=== PATIENT | female | born 1940 | race Caucasian/White ===

== ENCOUNTER 2017-04-21 13:59 | Observation (INO) | payer OTHER ==
[~2017-04-21] VITALS: Ht 160 cm; Wt 85.0 kg
[~2017-04-21 13:59] MED LIST: BIOT1TAB5 PO; FSM70 PO; GLIM4TAB PO; GLUCTAB18 PO; LISI40TA PO; MELA1TAB12 PO; METF1000 PO; MULT-513 PO; NVLGI7030 SQ; POTA1TAB PO; PRLSR20 PO; SIMV10TA2 PO
[2017-04-21] MEDS ORDERED: MoRPHine SULFATE 4 MG/ML 1 ML CARP\\VIAL IV STA (14:32)
[2017-04-21] MEDS ORDERED: ONDANSETRON INJ 2 MG/ML 2 ML VIAL IV STA (14:32)
--- NOTE | 2017-04-21 14:39 | EMERGENCY ROOM VISIT NOTE ---
History First contact with patient: 14:07 Chief Complaint: HIP PAIN Stated Complaint: HIP (FELL AND LANDED ON IT) History of Present Illness The patient is a 76 year old female who comes into the ED with right hip pain following a recent fall. She reports a PMH significant for osteoporosis on biphosphates. She says that she fell when getting out of bed. The patient is unsure of how exactly she fell, but thinks that she lost her balance. She denies feeling dizziness or experiencing a syncopal episode. She landed on her right hip and right arm. In addition, she reports hitting her head as she fell to the floor. The patient denies loss of consciousness, although there was no one home to witness the fall. She was able to stand, but she reports excruciating 10/10 sharp pain in her right hip and femur with weight bearing. Patient denies taking any ASA or blood thinners. She does report a PMH of HTN, T2DM. Review of Systems see below Constitutional: No fever, No chills, No sweats Respiratory: No cough, No sputum, No shortness of breath Cardiovascular: No chest pain Abdomen: No pain, No nausea, No vomiting Musculoskeletal: + joint pain, + muscle pain Past Medical/Surgical History Medical Problems: (1) Acute back pain with sciatica (2) Carpal Tunnel Syndrome (3) Coronary Atherosclerosis Of [place] Coronary Vessel (4) DM type 2 (diabetes mellitus, type 2) (5) Essential (Primary) Hypertension (6) GERD (gastroesophageal reflux disease) (7) Hip pain (8) Hyperlipidemia Nec/Nos (9) Hyperparathyroidism (10) Laceration of right palm (11) Lumbago (12) Nontoxic multinodular goiter (13) Osteoporosis (14) Sciatica (15) Tobacco Use Disorder (16) Type 2 Diabetes Mellitus Without Complications (17) Unspecified Cataract (18) Vitamin D deficiency Surgical Problems: (1) History of placement of stent in LAD coronary artery (2) Hx of cataract removal with insertion of prosthetic lens (3) Hx of cholecystectomy (4) Hx of hysterectomy (5) Hx of tonsillectomy Family History FH: cancer FH: diabetes mellitus FH: gallbladder disease FH: heart disease FH: lung disease Social History Smoking Status: Former Smoker Alcohol Use: occasionally Marital Status: Occupation Status: retired Current/Historical Medications Scheduled Alendronate Sodium (Alendronate Sodium), 70 MG PO WK Cinacalcet (Sensipar), 1 TAB PO DAILY Glimepiride (Amaryl), 8 MG PO QAM Glucosamine-Chondroitin (Osteo Bi-Flex Regular Str), 1 TABLET PO QAM Insulin Aspart 70/30 (Novolog Mix 70/30), 70 UNITS SQ BIDM Metformin Hcl (Glucophage), 1,000 MG PO BID Multivitamins/Minerals (Mvi With Minerals), 1 TAB PO QAM Omeprazole (Prilosec), 20 MG PO QAM Potassium Gluconate (Potassium Gluconate Er), 595 MG PO QAM Simvastatin (Zocor), 10 MG PO QPM Physical Exam Vital Signs Date Time Temp Pulse Resp B/P (MAP) Pulse Ox O2 Delivery O2 Flow Rate FiO2 04/21/17 17:03 98 18 142/65 94 Room Air 04/21/17 14:01 36.3 103 18 160/70 95 Room Air Physical Exam see below General Appearance: WD/WN, no apparent distress Head: normocephalic, atraumatic Respiratory/Chest: chest non-tender, lungs clear, normal breath sounds Cardiovascular: regular rate, rhythm, no edema, no gallop Extremities: normal inspection, + pertinent finding (Normal neurovascular exam of bilateral extremities. Symmetric length of lower extremity. No external rotation of right hip or overlying eccymosis. Tender right hip over greater trochanter. Patient unable to flex hip. 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 Pain. COMPARISON: None. DISCUSSION: The bones and joint spaces appear intact. There is no evidence of fracture, dislocation or bony disease. There is no evidence for soft tissue swelling. IMPRESSION: Negative study. R FEMUR 2 VIEWS ROUTINE CLINICAL HISTORY: Fall on right hip. COMPARISON: Pelvis and right hip radiographs April 21, 2017 at 3:40 PM FINDINGS: Alignment of the right hip and right knee is anatomic. There is no acute fracture of the right femur. A calcific density inferior to the right inferior pubic ramus is likely chronic. IMPRESSION: No acute fracture of the right femur. R LOWER EXTREMITY WITHOUT HISTORY: 76 years-old Female right hip eval for fx acute right hip pain with concern for right hip fracture COMPARISON: Right femur and pelvis radiographs of same day TECHNIQUE: Multiple axial CT images of the right hip were obtained without contrast. Coronal and sagittal reformatted images were obtained from the axial data set and submitted for review. A dose lowering technique was used consistent with the principals of MIRTHA. FINDINGS: The bones appear mildly demineralized. There is mild to moderate right hip osteoarthritis with chondrocalcinosis. There is no acute fracture or dislocation. Degenerative changes are seen within the pubic symphysis. The imaged right hemipelvis appears intact without pelvic ring fracture identified. Cystic lesion of the right adnexum measures up to 5.1 x 4.3 cm. There appears to be distention of the bladder. Atherosclerosis of the femoral artery. No acute soft tissue abnormality identified. There appears to be a small hip joint effusion. IMPRESSION: 1. No acute fracture or dislocation. 2. 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 3. Cystic lesion of the right adnexum measures up to 5.1 x 4.3 cm. This could be further evaluated with pelvic ultrasound. The above report was generated using voice recognition software. It may contain grammatical, syntax or spelling errors. Laboratory Results 04/21/17 14:52 Red Blood Count 4.68, Mean Corpuscular Volume 94.7, Mean Corpuscular Hemoglobin 31.2, Mean Corpuscular Hemoglobin Concent 33.0, Mean Platelet Volume 11.1, Neutrophils (%) (Auto) 70.5, Lymphocytes (%) (Auto) 20.1, Monocytes (%) (Auto) 7.7, Eosinophils (%) (Auto) 0.9, Basophils (%) (Auto) 0.5, Neutrophils # (Auto) 7.43, Lymphocytes # (Auto) 2.12, Monocytes # (Auto) 0.81, Eosinophils # (Auto) 0.10, Basophils # (Auto) 0.05 04/21/17 14:52 Test 04/21/17 14:52 White Blood Count 10.54 K/uL (4.8-10.8) Red Blood Count 4.68 M/uL (4.2-5.4) Hemoglobin 14.6 g/dL (12.0-16.0) Hematocrit 44.3 % (37-47) Mean Corpuscular Volume 94.7 fL (80-100) Mean Corpuscular Hemoglobin 31.2 pg (25-34) Mean Corpuscular Hemoglobin Concent 33.0 g/dl (32-36) Platelet Count 196 K/uL (130-400) Mean Platelet Volume 11.1 fL (7.4-10.4) Neutrophils (%) (Auto) 70.5 % Lymphocytes (%) (Auto) 20.1 % Monocytes (%) (Auto) 7.7 % Eosinophils (%) (Auto) 0.9 % Basophils (%) (Auto) 0.5 % Neutrophils # (Auto) 7.43 K/uL (1.4-6.5) Lymphocytes # (Auto) 2.12 K/uL (1.2-3.4) Monocytes # (Auto) 0.81 K/uL (0.11-0.59) Eosinophils # (Auto) 0.10 K/uL (0-0.5) Basophils # (Auto) 0.05 K/uL (0-0.2) RDW Standard Deviation 53.0 fL (36.4-46.3) RDW Coefficient of Variation 15.3 % (11.5-14.5) Immature Granulocyte % (Auto) 0.3 % Immature Granulocyte # (Auto) 0.03 K/uL (0.00-0.02) Prothrombin Time 11.6 SECONDS (9.0-12.0) Prothromb Time International Ratio 1.1 (0.9-1.1) Activated Partial Thromboplast Time 26.8 SECONDS (21.0-31.0) Partial Thromboplastin Ratio 1.0 Anion Gap 14.0 mmol/L (3-11) Est Creatinine Clear Calc Drug Dose 53.7 ml/min Estimated GFR () 70.1 Estimated GFR (Non- 60.5 BUN/Creatinine Ratio 13.7 (10-20) Calcium Level 9.4 mg/dl (8.5-10.1) Medications Administered Medications (Trade) Dose Ordered Sig/Cass Route Start Time Stop Time Status Last Admin Dose Admin Morphine Sulfate (MoRPHine SULFATE INJ) 4 mg NOW STAT IV 04/21/17 14:32 04/21/17 14:34 DC 04/21/17 15:00 4 MG Ondansetron HCl (Zofran Inj) 4 mg NOW STAT IV 04/21/17 14:32 04/21/17 14:35 DC 04/21/17 14:59 4 MG ED Course 1430 History and Physical performed 1445 Ordered labs and test 1515 Reaccessed patient, awaiting radiology 1600 Patient's femur, pelvis, hip, CXR all normal [address] of right hip Medical Decision 76 yo female comes into the ED after a fall on her right hip. Patient has 10/10 pain with weightbearing. Patient was given morphine 4mg IV for pain. Considering the following differential; right femoral head/neck fracture, greater trochanteric fracture, right femoral fracture, right trochanteric bursitis, right hip hematoma Xray of right hip, right femur were ordered to access for hip fracture. In addition, head CT was ordered to access for subdural hematoma. After hip and femur x-ray were found unremarkable for right hip fracture, CT of the left hip was ordered. This too was found to be negative for fracture. Following reviewing negative imaging, I reaccessed the patient and attempted to ambulate her. Patient was unable to bear weight on the right side and was unable to ambulate. She reported that she couldn't move her leg from the right hip. There was no ecchymosis over the right hip. Patient reports severe tenderness with palpation of the right greater trochanter. Discussed the case with the [facility] hospitalist. Patient is to be admitted for further evaluation. Impression Primary Impression: Right hip pain Departure Information Dispostion Admitted as an inpatient Condition FAIR Referrals Alexy Al M.D. (PCP) Patient Instructions [facility]
[2017-04-21 15:06] LABS: BASO % 0.5 %; BASO ABS # 0.05 K/uL (0-0.2); COMPLETE YES; EOS % 0.9 %; HEMATOCRIT 44.3 % (37-47); IG% 0.3 %; LYMPH % 20.1 %; LYMPH ABS # 2.12 K/uL (1.2-3.4); MEAN CELL VOLUME 94.7 fL (80-100); MEAN CORPUSCULAR HEMOGLOBIN 31.2 pg (25-34); MEAN PLATELET VOLUME 11.1 fL (7.4-10.4); MONO % 7.7 %; NEUT % 70.5 %; PLATELET COUNT 196 K/uL (130-400); RED BLOOD COUNT 4.68 M/uL (4.2-5.4); WHITE BLOOD COUNT 10.54 K/uL (4.8-10.8)
[2017-04-21 15:22] LABS: INR 1.1 (0.9-1.1); PROTHROMBIN TIME (PATIENT) 11.6 SECONDS (9.0-12.0)
[2017-04-21 15:23] LABS: BUN/CREATININE RATIO 13.7 (10-20); CALCIUM 9.4 mg/dl (8.5-10.1); CREATININE 0.92 mg/dl (0.60-1.20)
--- NOTE | 2017-04-21 15:49 | DIAGNOSTIC IMAGING REPORT ---
R PELVIS/UNILATERAL HIP 2-3VIEWS CLINICAL HISTORY: eval for fx trauma. Pain. COMPARISON: None. DISCUSSION: The bones and joint spaces appear intact. There is no evidence of fracture, dislocation or bony disease. There is no evidence for soft tissue swelling. IMPRESSION: Negative study. The above report was generated using voice recognition software. It may contain grammatical, syntax or spelling errors. Electronically signed by: Yasmany Jorge M.D. 04/21/2017 3:48 PM Dictated Date/Time: 04/21/2017 3:47 PM
--- NOTE | 2017-04-21 15:56 | DIAGNOSTIC IMAGING REPORT ---
CHEST ONE VIEW PORTABLE HISTORY: 76 years-old Female hip fx preoperative exam. COMPARISON: None available TECHNIQUE: Portable AP view of the chest FINDINGS: Cardiomediastinal and hilar silhouettes are within normal limits. Atherosclerosis of the aorta. No pneumothorax, pleural effusion, focal airspace consolidation or overt pulmonary edema. Minimal linear subsegmental lateral left basilar opacities suggest atelectasis or scarring. Bones appear grossly intact. There are degenerative changes of the shoulders. IMPRESSION: No acute cardiopulmonary process. The above report was generated using voice recognition software. It may contain grammatical, syntax or spelling errors. Electronically signed by: Chong Smart M.D. 04/21/2017 3:55 PM Dictated Date/Time: 04/21/2017 3:54 PM
--- NOTE | 2017-04-21 15:57 | DIAGNOSTIC IMAGING REPORT ---
R FEMUR 2 VIEWS ROUTINE CLINICAL HISTORY: Fall on right hip. COMPARISON: Pelvis and right hip radiographs April 21, 2017 at 3:40 PM FINDINGS: Alignment of the right hip and right knee is anatomic. There is no acute fracture of the right femur. A calcific density inferior to the right inferior pubic ramus is likely chronic. IMPRESSION: No acute fracture of the right femur. Electronically signed by: Karson Goddard M.D. 04/21/2017 3:55 PM Dictated Date/Time: 04/21/2017 3:54 PM
--- NOTE | 2017-04-21 16:34 | DIAGNOSTIC IMAGING REPORT ---
CT OF THE HEAD WITHOUT CONTRAST CLINICAL HISTORY: Fall with head injury. COMPARISON STUDY: No previous studies for comparison. CT DOSE: 712.55 mGy.cm TECHNIQUE: Helical axial images of the head were obtained without IV contrast. Automated exposure control was utilized for the study. A dose lowering technique was utilized adhering to the principles of ALARA. FINDINGS: No acute intracranial hemorrhage, midline shift or mass effect is present. Ventricular system is normal. Basilar cisterns are patent. Prominence of the extra-axial CSF spaces is likely due to atrophy. A moderate size focus of encephalomalacia within left occipital lobe suggests old infarct. There are no findings to suggest acute dural sinus thrombosis or acute territorial infarct. No calvarial fracture is identified. Visualized portions of the sinuses and mastoid air cells are clear. IMPRESSION: 1. No acute intracranial findings. 2. No calvarial fracture. 3. Old left occipital lobe infarct. Electronically signed by: Karson Goddard M.D. 04/21/2017 4:32 PM Dictated Date/Time: 04/21/2017 4:28 PM
--- NOTE | 2017-04-21 16:35 | DIAGNOSTIC IMAGING REPORT ---
R LOWER EXTREMITY WITHOUT HISTORY: 76 years-old Female right hip eval for fx acute right hip pain with concern for right hip fracture COMPARISON: Right femur and pelvis radiographs of same day TECHNIQUE: Multiple axial CT images of the right hip were obtained without contrast. Coronal and sagittal reformatted images were obtained from the axial data set and submitted for review. A dose lowering technique was used consistent with the principals of ALARA. FINDINGS: The bones appear mildly demineralized. There is mild to moderate right hip osteoarthritis with chondrocalcinosis. There is no acute fracture or dislocation. Degenerative changes are seen within the pubic symphysis. The imaged right hemipelvis appears intact without pelvic ring fracture identified. Cystic lesion of the right adnexum measures up to 5.1 x 4.3 cm. There appears to be distention of the bladder. Atherosclerosis of the femoral artery. No acute soft tissue abnormality identified. There appears to be a small hip joint effusion. IMPRESSION: 1. No acute fracture or dislocation. 2. 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 3. Cystic lesion of the right adnexum measures up to 5.1 x 4.3 cm. This could be further evaluated with pelvic ultrasound. The above report was generated using voice recognition software. It may contain grammatical, syntax or spelling errors. Electronically signed by: Chong Smart M.D. 04/21/2017 4:33 PM Dictated Date/Time: 04/21/2017 4:29 PM
--- NOTE | 2017-04-21 17:41 | EMERGENCY ROOM VISIT NOTE ---
History Report prepared by Luis: Sony Carter Under the Supervision of: Dr. Arun Bojorquez M.D. First contact with patient: 14:06 Chief Complaint: HIP PAIN Stated Complaint: HIP (FELL AND LANDED ON IT) History of Present Illness The patient is a 76 year old female who presents to the Emergency Room with complaints of right sided hip pain that began this morning. She rates her pain a 10/10 in severity. This morning, the patient was getting out of bed when she accidentally lost her balance and fell onto her right hip. She states that she is unsure if she was dizzy at the time because she was just waking up from sleep. She immediately tried to get up and walk around. However, her pain was exacerbated with movement and weight-bearing so she had a difficult time walking. She notes that when she fell she hit the back of her head. She did not lose consciousness. She denies any headache, neck pain, chest pain, shortness of breath, abdominal pain, back pain, leg pain, arm pain, numbness, or weakness. Source of History: patient Onset: this morning Position: other (Right hip) Symptom Intensity: 10/10 Quality: sharp Timing: constant Modifying Factors (Worsening): movement, other (weight-bearing) Associated Symptoms: No LOC, No fevers, No chest pain, No SOB, No abdominal pain, No back pain, No weakness, No numbness Review of Systems See HPI for pertinent positives & negatives. A total of 10 systems reviewed and were otherwise negative. Past Medical & Surgical Medical Problems: (1) Carpal Tunnel Syndrome (2) Coronary Atherosclerosis Of [place] Coronary Vessel (3) Essential (Primary) Hypertension (4) Hip pain (5) Hyperlipidemia Nec/Nos (6) Lumbago (7) Sciatica (8) Tobacco Use Disorder (9) Type 2 Diabetes Mellitus Without Complications (10) Unspecified Cataract Family History FH: cancer FH: diabetes mellitus FH: gallbladder disease FH: heart disease FH: lung disease Social History Smoking Status: Former Smoker Alcohol Use: occasionally Marital Status: Occupation Status: retired Current/Historical Medications Scheduled Alendronate Sodium (Alendronate Sodium), 70 MG PO WK Biotin (Biotin), 1,000 MCG PO DAILY Glimepiride (Amaryl), 8 MG PO QAM Glucosamine-Chondroitin (Osteo Bi-Flex Regular Str), 1 TABLET PO QAM Insulin Aspart 70/30 (Novolog Mix 70/30), 70 UNITS SQ BIDM Lisinopril (Prinivil), 40 MG PO QAM Melatonin (Gnp Melatonin Maximum Str), 5 MG PO HS Metformin Hcl (Glucophage), 1,000 MG PO BID Multivitamins/Minerals (Mvi With Minerals), 1 TAB PO QAM Omeprazole (Prilosec), 20 MG PO QAM Potassium Gluconate (Potassium Gluconate Er), 595 MG PO QAM Simvastatin (Zocor), 10 MG PO QPM Allergies Coded Allergies: No Known Allergies (Unverified , 12/11/15) Physical Exam Vital Signs Date Time Temp Pulse Resp B/P (MAP) Pulse Ox O2 Delivery O2 Flow Rate FiO2 04/21/17 17:03 98 18 142/65 94 Room Air 04/21/17 14:01 36.3 103 18 160/70 95 Room Air Physical Exam Constitutional: Vital signs reviewed. Eyes: Pupils are equal round reactive to light. Conjunctiva are noninjected. ENT: Pharynx is clear without erythema or exudate. Mucous membranes are moist. Neck supple without meningeal signs. No midline tenderness to the cervical spine. Respiratory: Clear to auscultation bilaterally. Breath sounds are equal bilaterally. Cardiovascular: Regular rate and rhythm. No rubs or gallops. GI: Soft, nondistended and nontender. Bowel sounds are present. Musculoskeletal: Tenderness to the proximal femur on the right. Normal distal pulses. No shortening or rotation. Integumentary: No cyanosis. Neurological: The patient is awake and alert. No focal deficits. Psychiatric: Normal affect. Medical Decision & Procedures ER Provider Diagnostic Interpretation: Radiology results as stated below per my review and the radiologist's interpretation: R PELVIS/UNILATERAL HIP 2-3VIEWS CLINICAL HISTORY: eval for fx trauma. Pain. COMPARISON: None. DISCUSSION: The bones and joint spaces appear intact. There is no evidence of fracture, dislocation or bony disease. There is no evidence for soft tissue swelling. IMPRESSION: Negative study. The above report was generated using voice recognition software. It may contain grammatical, syntax or spelling errors. Electronically signed by: Yasmany Jorge M.D. 04/21/2017 3:48 PM Dictated Date/Time: 04/21/2017 3:47 PM CHEST ONE VIEW PORTABLE HISTORY: 76 years-old Female hip fx preoperative exam. COMPARISON: None available TECHNIQUE: Portable AP view of the chest FINDINGS: Cardiomediastinal and hilar silhouettes are within normal limits. Atherosclerosis of the aorta. No pneumothorax, pleural effusion, focal airspace consolidation or overt pulmonary edema. Minimal linear subsegmental lateral left basilar opacities suggest atelectasis or scarring. Bones appear grossly intact. There are degenerative changes of the shoulders. IMPRESSION: No acute cardiopulmonary process. The above report was generated using voice recognition software. It may contain grammatical, syntax or spelling errors. Electronically signed by: Chong Smart M.D. 04/21/2017 3:55 PM Dictated Date/Time: 04/21/2017 3:[address] OF THE HEAD WITHOUT CONTRAST CLINICAL HISTORY: Fall with head injury. COMPARISON STUDY: No previous studies for comparison. CT DOSE: 712.55 mGy.cm TECHNIQUE: Helical axial images of the head were obtained without IV contrast. Automated exposure control was utilized for the study. A dose lowering technique was utilized adhering to the principles of ALARA. FINDINGS: No acute intracranial hemorrhage, midline shift or mass effect is present. Ventricular system is normal. Basilar cisterns are patent. Prominence of the extra-axial CSF spaces is likely due to atrophy. A moderate size focus of encephalomalacia within left occipital lobe suggests old infarct. There are no findings to suggest acute dural sinus thrombosis or acute territorial infarct. No calvarial fracture is identified. Visualized portions of the sinuses and mastoid air cells are clear. IMPRESSION: 1. No acute intracranial findings. 2. No calvarial fracture. 3. Old left occipital lobe infarct. Electronically signed by: Karson Goddard M.D. 04/21/2017 4:32 PM Dictated Date/Time: 04/21/2017 4:28 PM R FEMUR 2 VIEWS ROUTINE CLINICAL HISTORY: Fall on right hip. COMPARISON: Pelvis and right hip radiographs April 21, 2017 at 3:40 PM FINDINGS: Alignment of the right hip and right knee is anatomic. There is no acute fracture of the right femur. A calcific density inferior to the right inferior pubic ramus is likely chronic. IMPRESSION: No acute fracture of the right femur. Electronically signed by: Karson Goddard M.D. 04/21/2017 3:55 PM Dictated Date/Time: 04/21/2017 3:54 PM R LOWER EXTREMITY WITHOUT HISTORY: 76 years-old Female right hip eval for fx acute right hip pain with concern for right hip fracture COMPARISON: Right femur and pelvis radiographs of same day TECHNIQUE: Multiple axial CT images of the right hip were obtained without contrast. Coronal and sagittal reformatted images were obtained from the axial data set and submitted for review. A dose lowering technique was used consistent with the principals of MIRTHA. FINDINGS: The bones appear mildly demineralized. There is mild to moderate right hip osteoarthritis with chondrocalcinosis. There is no acute fracture or dislocation. Degenerative changes are seen within the pubic symphysis. The imaged right hemipelvis appears intact without pelvic ring fracture identified. Cystic lesion of the right adnexum measures up to 5.1 x 4.3 cm. There appears to be distention of the bladder. Atherosclerosis of the femoral artery. No acute soft tissue abnormality identified. There appears to be a small hip joint effusion. IMPRESSION: 1. No acute fracture or dislocation. 2. 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 3. Cystic lesion of the right adnexum measures up to 5.1 x 4.3 cm. This could be further evaluated with pelvic ultrasound. The above report was generated using voice recognition software. It may contain grammatical, syntax or spelling errors. Electronically signed by: Chong Smart M.D. 04/21/2017 4:33 PM Dictated Date/Time: 04/21/2017 4:29 PM Laboratory Results 04/21/17 14:52 Red Blood Count 4.68, Mean Corpuscular Volume 94.7, Mean Corpuscular Hemoglobin 31.2, Mean Corpuscular Hemoglobin Concent 33.0, Mean Platelet Volume 11.1, Neutrophils (%) (Auto) 70.5, Lymphocytes (%) (Auto) 20.1, Monocytes (%) (Auto) 7.7, Eosinophils (%) (Auto) 0.9, Basophils (%) (Auto) 0.5, Neutrophils # (Auto) 7.43, Lymphocytes # (Auto) 2.12, Monocytes # (Auto) 0.81, Eosinophils # (Auto) 0.10, Basophils # (Auto) 0.05 04/21/17 14:52 Test 04/21/17 14:52 White Blood Count 10.54 K/uL (4.8-10.8) Red Blood Count 4.68 M/uL (4.2-5.4) Hemoglobin 14.6 g/dL (12.0-16.0) Hematocrit 44.3 % (37-47) Mean Corpuscular Volume 94.7 fL (80-100) Mean Corpuscular Hemoglobin 31.2 pg (25-34) Mean Corpuscular Hemoglobin Concent 33.0 g/dl (32-36) Platelet Count 196 K/uL (130-400) Mean Platelet Volume 11.1 fL (7.4-10.4) Neutrophils (%) (Auto) 70.5 % Lymphocytes (%) (Auto) 20.1 % Monocytes (%) (Auto) 7.7 % Eosinophils (%) (Auto) 0.9 % Basophils (%) (Auto) 0.5 % Neutrophils # (Auto) 7.43 K/uL (1.4-6.5) Lymphocytes # (Auto) 2.12 K/uL (1.2-3.4) Monocytes # (Auto) 0.81 K/uL (0.11-0.59) Eosinophils # (Auto) 0.10 K/uL (0-0.5) Basophils # (Auto) 0.05 K/uL (0-0.2) RDW Standard Deviation 53.0 fL (36.4-46.3) RDW Coefficient of Variation 15.3 % (11.5-14.5) Immature Granulocyte % (Auto) 0.3 % Immature Granulocyte # (Auto) 0.03 K/uL (0.00-0.02) Prothrombin Time 11.6 SECONDS (9.0-12.0) Prothromb Time International Ratio 1.1 (0.9-1.1) Activated Partial Thromboplast Time 26.8 SECONDS (21.0-31.0) Partial Thromboplastin Ratio 1.0 Anion Gap 14.0 mmol/L (3-11) Est Creatinine Clear Calc Drug Dose 53.7 ml/min Estimated GFR () 70.1 Estimated GFR (Non- 60.5 BUN/Creatinine Ratio 13.7 (10-20) Calcium Level 9.4 mg/dl (8.5-10.1) Laboratory results as reviewed by me. Medications Administered Medications (Trade) Dose Ordered Sig/Cass Route Start Time Stop Time Status Last Admin Dose Admin Morphine Sulfate (MoRPHine SULFATE INJ) 4 mg NOW STAT IV 04/21/17 14:32 04/21/17 14:34 DC 04/21/17 15:00 4 MG Ondansetron HCl (Zofran Inj) 4 mg NOW STAT IV 04/21/17 14:32 04/21/17 14:35 DC 04/21/17 14:59 4 MG ECG Indication: other (Trauma) Rate (beats per minute): 97 Rhythm: normal sinus Findings: T-wave inversion (Inferior), no ectopy ED Course 1406: The patient was evaluated in room A4. A complete history and physical exam was performed. 1432: Ordered Zofran Inj 4 mg IV, Morphine Sulfate 4 mg IV 1715: I spoke with Dr. Rdz of the [facility]. We discussed the patient and her results. The patient will be further evaluated by her. Medical Decision This is a 76-year-old female who presents with hip pain after fall. Differential diagnosis includes contusion, hip fracture, femur fracture, pelvic fracture, strain. I did perform a limited focused review of portions of the patient's old chart on the electronic medical record. The patient has had no recent pertinent visits to this hospital. I did evaluate the patient as noted above. IV access was established. The patient was placed on a continuous surg rn. I did order and personally review the patient's 12-lead EKG and x-rays as described above. I did order and review the patient's blood work as noted in the electronic medical record. I did order a CT of the head and right hip. I did review the images myself as well as the radiology report as described above. There is no evidence of fracture or acute intracranial hemorrhage. We did attempt to ambulate patient but she was unable to bear any weight to the right leg. She will therefore be hospitalized for further evaluation. The case was discussed with the hospitalist and continuous pillowcase cutter. Resident Physician Supervision Note: I did evaluate and examine this patient myself. I did guide management for the patient. I agree with the resident's [Dr. Downs] assessment as discussed. Please see the resident's dictation for further details. Head Trauma GCS Score: 15 Medication Reconcilliation Current Medication List: was personally reviewed by me Blood Pressure Screening Patient's blood pressure: Elevated blood pressure Blood pressure disposition: Referred to PCP Consults Time Called: 1710 Consulting Physician: Dr. Kendell Noe Hospitalist Returned Call: 1715 We discussed the patient and her results. The patient will be further evaluated by her. Impression Primary Impression: Injury of right hip Additional Impressions: Fall Ambulatory dysfunction Acute head injury Scribe Attestation The scribe's documentation has been prepared under my direct and personally reviewed by me in its entirety. I confirm that the note above accurately reflects all work, treatment, procedures, and medical decision making performed by me. Departure Information Dispostion Being Evaluated By Hospitalist Referrals Alexy Al M.D. (PCP) Patient Instructions My [facility] Problem Qualifiers Primary Impression: Injury of right hip Encounter type: initial encounter Qualified Codes: S79.911A - Unspecified injury of right hip, initial encounter Additional Impressions: Fall Encounter type: initial encounter Qualified Codes: W19.XXXA - Unspecified fall, initial encounter Acute head injury Encounter type: initial encounter Qualified Codes: S09.90XA - Unspecified injury of head, initial encounter
[2017-04-21] MEDS ORDERED: ONDANSETRON INJ 2 MG/ML 2 ML VIAL IV PRN (17:45)
[2017-04-21] MEDS ORDERED: POLYETHYLENE (MIRALAX) 17 GM PACK PO PRN (17:45)
[2017-04-21] MEDS ORDERED: MAGNESIUM HYDROXIDE SUSP 30 ML UDC PO PRN (17:45)
[2017-04-21] MEDS ORDERED: GLUCOSE 40% GEL 15 GM TUBE PO PRN (17:45)
[2017-04-21] MEDS ORDERED: ALUMINUM/MAGNESIUM/SIMETH (MAALOX MAX) 30 ML UDC PO PRN (17:45)
[2017-04-21] MEDS ORDERED: SODIUM CHLORIDE 0.9% 1000ML 1,000 ML IV SCH (17:45)
[2017-04-21] MEDS ORDERED: DEXTROSE 50% 50 ML SYR IV PRN (17:45)
[2017-04-21] MEDS ORDERED: GLUCOSE 10 TABS/TUBE PO PRN (17:45)
[2017-04-21] MEDS ORDERED: ACETAMINOPHEN 325 MG TAB PO PRN (17:45)
[2017-04-21] MEDS ORDERED: GLUCAGON FOR INJ 1 MG VIAL SQ PRN (17:45)
[2017-04-21] MEDS ORDERED: CINA0.42 PO (18:44)
[2017-04-21] MEDS ORDERED: MoRPHine SULFATE 2 MG/ML CARP IV PRN (18:45)
[2017-04-21 19:10] VITALS: BP 143/64; PULSE 92; TEMP 36.8; O2SAT 100; Ht 160 cm; Wt 85.0 kg
--- NOTE | 2017-04-21 19:34 | DIAGNOSTIC IMAGING REPORT ---
PELVIC COMPLETE NON OB HISTORY: 76 years-old Female ADENEXAL CYST right adnexal cystic lesion seen on comparison CT COMPARISON: None available TECHNIQUE: Multiple real-time sonographic images of the deep pelvic structures were obtained assessing grayscale appearance, color and spectral flow. FINDINGS: Prior hysterectomy. Right ovary measures 4.0 x 4.4 x 4.7 cm and demonstrates arterial inflow. Cystic lesion of the right adnexum is seen measuring up to 3.7 x 3.6 x 3.9 cm. There are thin internal septations within this lesion without thick mural nodularity. No internal flow within the lesion is documented. The left ovary is not diagnostically visualized. No left ovarian mass lesions or significant free pelvic fluid. IMPRESSION: 1. 3.9 cm cystic lesion of the right adnexum contains thin internal septations without large soft tissue component. In a postmenopausal patient, differential considerations would include an ovarian cyst, paraovarian cyst, or ovarian epithelial neoplasm. 2. No evidence of ovarian torsion. 3. Prior hysterectomy. 4. Left ovary not visualized. The above report was generated using voice recognition software. It may contain grammatical, syntax or spelling errors. Electronically signed by: Chong Smart M.D. 04/21/2017 7:33 PM Dictated Date/Time: 04/21/2017 7:27 PM
--- NOTE | 2017-04-21 19:49 | History and Physical ---
History & Physical Date & Time of Service: Apr 21, 2017 at 18:51 Chief Complaint: Hip (Fell And Landed On It) Primary Care Physician: Alexy Al M.D. History of Present Illness Source: patient Pt is 76 y/o F with PMH DM II insulin dependent, GERD, hyperparathyroidism, non- toxic multinodular goiter, osteoporosis presented to ER with c/o R hip pain. Pt states was getting out of bed when she stood up to walk and "just fell". Denies dizziness, lightheadedness, syncope, leg weakness prior to fall. Denies LOC and remembers incident and the days events. Thinks may have bumped her head. Reports falling onto R hip. C/O pain lateral right hip, worse with ROM and attempting to stand. Reports unable to bear weight secondary to pain. Doesn't feel like her legs are weak. Pain sharp and non-radiating. No prior treatment. Denies hx hip pain. Denies back pain, knee or ankle pain, other extremity pain, LE paresthesias, fever/chills, diaphoresis, N/V/D/C, BROWN, dizziness, syncope, vision changes, neck pain, CP, SOB, orthopnea, palpitations, cough, sore throat , choking, otalgia, rhinorrhea, abdominal pain, extremity edema, rashes, urinary symptoms. In ER pt received morphine 4mg and zofran. Reports helped with pain and no pain with lying supine. Pain with movement R hip and reports too much pain to bear weight on leg. Negative CT head, negative CXR, no fracture noted on R hip/ pelvis xray, no fracture on R femur xray, no fracture on R LE CT. Past Medical/Surgical History Medical Problems: (1) Acute back pain with sciatica Status: Resolved (2) DM type 2 (diabetes mellitus, type 2) Status: Chronic (3) GERD (gastroesophageal reflux disease) Status: Chronic (4) Hyperparathyroidism Status: Chronic (5) Laceration of right palm Status: Resolved (6) Nontoxic multinodular goiter Status: Chronic (7) Osteoporosis Status: Chronic (8) Vitamin D deficiency Status: Chronic Surgical Problems: (1) History of placement of stent in LAD coronary artery Status: Resolved (2) Hx of cataract removal with insertion of prosthetic lens Status: Resolved (3) Hx of cholecystectomy Status: Resolved (4) Hx of hysterectomy Status: Resolved (5) Hx of tonsillectomy Status: Resolved Family History FH: cancer FH: diabetes mellitus FH: gallbladder disease FH: heart disease FH: lung disease Social History Smoking Status: Former Smoker (smoked 3ppd x 48 years) Smokeless Tobacco Use: No Alcohol Use: occasionally Drug Use: none Marital Status: Housing status: lives with significant other Occupational Status: retired Multi-Drug Resistant Organisms History of MDRO: No Allergies Coded Allergies: No Known Allergies (Unverified , 12/11/15) Home Medications Scheduled Alendronate Sodium (Alendronate Sodium), 70 MG PO WK Cinacalcet (Sensipar), 1 TAB PO DAILY Glimepiride (Amaryl), 8 MG PO QAM Glucosamine-Chondroitin (Osteo Bi-Flex Regular Str), 1 TABLET PO QAM Insulin Aspart 70/30 (Novolog Mix 70/30), 70 UNITS SQ BIDM Metformin Hcl (Glucophage), 1,000 MG PO BID Multivitamins/Minerals (Mvi With Minerals), 1 TAB PO QAM Omeprazole (Prilosec), 20 MG PO QAM Potassium Gluconate (Potassium Gluconate Er), 595 MG PO QAM Simvastatin (Zocor), 10 MG PO QPM Review of Systems Constitutional: No fever, No chills, No sweats, No weight loss, No weakness, No fatigue Eyes: No worsening of vision, No eye pain, No redness, No discharge, No diplopia ENT: + problem reported, No hearing loss, No unusual epistaxis, No nasal symptoms, No sore throat, No tinnitus, No dental problems, No trouble swallowing Respiratory: No cough, No sputum, No wheezing, No shortness of breath, No dyspnea on exertion, No dyspnea at rest, No hemoptysis Cardiovascular: No chest pain, No orthopnea, No PND, No edema, No palpitations Abdomen: + problem reported, No pain, No nausea, No vomiting, No diarrhea, No constipation, No GI bleeding Musculoskeletal: + joint pain (see HPI) Genitourinary - Female: No dysuria, No urinary frequency, No urinary urgency, No urinary incontinence, No urinary retention, No hematuria Neurologic: No memory loss, No paralysis, No weakness, No numbness/tingling, No vertigo Psychiatric: No depression symptoms, No anxiety Endocrine: No fatigue, No excessive thirst, No excessive urination Hematologic / Lymphatic: No abnormal bleeding/bruising, No clotting problems Integumentary: No rash, No itch Physical Exam Vital Signs Date Time Temp Pulse Resp B/P (MAP) Pulse Ox O2 Delivery O2 Flow Rate FiO2 04/21/17 18:36 95 18 130/57 92 Room Air 04/21/17 17:03 98 18 142/65 94 Room Air 04/21/17 14:01 36.3 103 18 160/70 95 Room Air General Appearance: WD/WN, no apparent distress Head: normocephalic, atraumatic Eyes: normal inspection, PERRL, EOMI, sclerae normal ENT: hearing grossly normal, pharynx normal, + pertinent finding (mucous membranes moist) Neck: supple, no JVD, trachea midline, + pertinent finding (no spinous process tenderness to palpation, ROM intact without tenderness) Respiratory/Chest: chest non-tender, lungs clear, normal breath sounds, no respiratory distress, no accessory muscle use Cardiovascular: regular rate, rhythm, no edema, no murmur, normal peripheral pulses Abdomen/GI: normal bowel sounds, non tender, soft Back: normal inspection, no CVA tenderness, no muscle spasm Extremities/Musculoskelatal: no calf tenderness, normal capillary refill, no pedal edema, + pertinent finding (R hip: no edema/erythema/ecchymosis. + tenderness to palpation lateral hip. limited flexion of hip secondary to discomfort, internal and external rotation hip intact. R thigh/knee/leg/ankle/ foot non-tender, normal appearance, ROM intact. Remaining extremities with normal appearance, non-tender ROM intact. Distal pulses intact, brisk capillary refill, sensation to light touch intact) Neurologic/Psych: alert, normal mood/affect, oriented x 3 Skin: normal color, warm/dry, no rash Diagnostics Laboratory Results Results Past 24 Hours Test 04/21/17 14:52 Range/Units White Blood Count 10.54 4.8-10.8 K/uL Red Blood Count 4.68 4.2-5.4 M/uL Hemoglobin 14.6 12.0-16.0 g/dL Hematocrit 44.3 37-47 % Mean Corpuscular Volume 94.7 80-100 fL Mean Corpuscular Hemoglobin 31.2 25-34 pg Mean Corpuscular Hemoglobin Concent 33.0 32-36 g/dl Platelet Count 196 130-400 K/uL Mean Platelet Volume 11.1 7.4-10.4 fL Neutrophils (%) (Auto) 70.5 % Lymphocytes (%) (Auto) 20.1 % Monocytes (%) (Auto) 7.7 % Eosinophils (%) (Auto) 0.9 % Basophils (%) (Auto) 0.5 % Neutrophils # (Auto) 7.43 1.4-6.5 K/uL Lymphocytes # (Auto) 2.12 1.2-3.4 K/uL Monocytes # (Auto) 0.81 0.11-0.59 K/uL Eosinophils # (Auto) 0.10 0-0.5 K/uL Basophils # (Auto) 0.05 0-0.2 K/uL RDW Standard Deviation 53.0 36.4-46.3 fL RDW Coefficient of Variation 15.3 11.5-14.5 % Immature Granulocyte % (Auto) 0.3 % Immature Granulocyte # (Auto) 0.03 0.00-0.02 K/uL Prothrombin Time 11.6 9.0-12.0 SECONDS Prothromb Time International Ratio 1.1 0.9-1.1 Activated Partial Thromboplast Time 26.8 21.0-31.0 SECONDS Partial Thromboplastin Ratio 1.0 Sodium Level 135 136-145 mmol/L Potassium Level 4.0 3.5-5.1 mmol/L Chloride Level 101 98-107 mmol/L Carbon Dioxide Level 21 21-32 mmol/L Anion Gap 14.0 3-11 mmol/L Blood Urea Nitrogen 13 7-18 mg/dl Creatinine 0.92 0.60-1.20 mg/dl Est Creatinine Clear Calc Drug Dose 53.7 ml/min Estimated GFR () 70.1 Estimated GFR (Non- 60.5 BUN/Creatinine Ratio 13.7 10-20 Random Glucose 222 70-99 mg/dl Calcium Level 9.4 8.5-10.1 mg/dl Diagnostic Radiology R HIP/PELVIS XRAY: IMPRESSION: Negative study. R FEMUR XRAY IMPRESSION: No acute fracture of the right femur. R LE CT: IMPRESSION: 1. No acute fracture or dislocation. 2. 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 3. Cystic lesion of the right adnexum measures up to 5.1 x 4.3 cm. This could be further evaluated with pelvic ultrasound. CXR: IMPRESSION: No acute cardiopulmonary process. HEAD CT: IMPRESSION: 1. No acute intracranial findings. 2. No calvarial fracture. 3. Old left occipital lobe infarct PELVIS U/S: IMPRESSION: 1. 3.9 cm cystic lesion of the right adnexum contains thin internal septations without large soft tissue component. In a postmenopausal patient, differential considerations would include an ovarian cyst, paraovarian cyst, or ovarian epithelial neoplasm. 2. No evidence of ovarian torsion. 3. Prior hysterectomy. 4. Left ovary not visualized. EKG EKG: NSR, rate 91, t wave inversion III Impression Assessment and Plan R HIP PAIN S/P FALL Pt with R hip pain after fall today. Pt denies any prodrome prior to fall. Negative R femur xray, Negative R pelvis/hip xray. R LE CT negative for fracture or dislocation. Negative Head CT. Negative CXR. Pain at rest relieved with morphine in ER, however pt reports unable to bear weight on R leg secondary to pain. Pt admitted for pain control and plan assistance in attempting pt return ambulation. R hip pain may be secondary to bursitis -morphine 2mg IV Q 4H prn pain -Percocet 5/325 Q 6H prn pain -lidocaine patch -bowel regimen -PT/OT consult -Case management consult -pain management consult -cbc, prp in am DM II - INSULIN DEPENDENT A1c 8.4, on 03/08/17 -hold metformin and glimepiride and insulin 70/30 -NovoLog sliding scale per protocol -Lantus 5U Q 12H GERD -continue PPI DYSLIPIDEMIA -continue simvastatin HYPERPARATHYROIDISM -continue sensipar CYSTIC LESION R ADENEXA seen on today's R LE CT: IMPRESSION: Cystic lesion of the right adnexum measures up to 5.1 x 4.3 cm. This could be further evaluated with pelvic ultrasound. U/S Pelvis: IMPRESSION: 1. 3.9 cm cystic lesion of the right adnexum contains thin internal septations without large soft tissue component. In a postmenopausal patient, differential considerations would include an ovarian cyst, paraovarian cyst, or ovarian epithelial neoplasm. 2. No evidence of ovarian torsion. 3. Prior hysterectomy. 4. Left ovary not visualized. - Cotton Bag Clipper eval requested DVT PROPHYLAXIS -Heparin SQ DISPOSITION -admit med/surg -DNR as per discussion with pt -Follows with Dr Al for routine care Pt was seen with Dr Rdz. See addendum ATTENDING ADDENDUM ; pt seen and examined, care co ordinated with Analisa Tolentino PA-C 76 yo F presented to ER after sustaining a fall earlier today mentions as she got out of bed , lost her balance and fell on her right side does not recall of having dizzy spell , palpitation , Chest heaviness prior to fall in the ER imaging of hip /pelvis showed no evidence of fracture pt continued to have significant pain on her Rt hip unable to sit or ambulate admit to medical floor , pain control incidental finding of cystic mass on rt ovary in CT of pelvis ovarian USG ordered given her age ovarian ca needs to be ruled out CA 125 level ordered Cotton Bag Clipper eval requested please refer to documentation by Analisa Suh PA-C for further discussion of other issues Nora Rdz MD Level of Care Med/Surg Resuscitation Status DO NOT RESUSCITATE VTE Prophylaxis VTE Risk Assessment Done? Y/N: Yes Risk Level: Moderate Given or contraindicated: Unfractionated heparin SQ Additional Copies To Alexy Al M.D.
[2017-04-21] MEDS: DOCUSATE SODIUM 100 MG CAP PO SCH (20:00)
[2017-04-21] MEDS: LIDODERM (LIDOCAINE) PATCH 5% TD SCH (20:56)
[2017-04-21] MEDS: INSULIN HUMAN REGULAR SC SCH (21:00)
[2017-04-21] MEDS ORDERED: MELATONIN 5 MG PO SCH (21:00)
[2017-04-21] MEDS ORDERED: SIMVASTATIN 10 MG TAB PO SCH (21:00)
[2017-04-21] MEDS: INSULIN GLARGINE SOLOSTAR 100 UNITS/ML 3 ML PEN SC SCH (21:48)
[2017-04-21] MEDS: HEPARIN SOD 5000 UNIT/0.5 ML CARP SQ SCH (21:49)
[2017-04-21 21:56] LABS: MANUAL MICROSCOPIC REQUIRED? NO; REVIEW REQ? NO; URINE APPEARANCE CLEAR (CLEAR); URINE BILIRUBIN NEG (NEG); URINE COLOR DK YELLOW; URINE NITRITE NEG (NEG); URINE SPECIFIC GRAVITY 1.021 (1.000-1.030); UROBILINOGEN NEG (NEG); ZZURINE CULT IF INDIC CATH NO
[2017-04-21 23:43] VITALS: BP 118/61; PULSE 104; TEMP 36.4; O2SAT 91
[2017-04-21] MEDS: OXYCODONE/ACETAMINOPHEN 5-325 TAB PO PRN (23:55)
[2017-04-22] MEDS ORDERED: IV FLUIDS COMPLETED PRN (01:00)
[2017-04-22] MEDS: HEPARIN SOD 5000 UNIT/0.5 ML CARP SQ SCH ×2 (04:00→12:00)
[2017-04-22 05:55] LABS: BUN/CREATININE RATIO 14.7 (10-20); CALCIUM 8.5 mg/dl (8.5-10.1); CREATININE 0.69 mg/dl (0.60-1.20)
[2017-04-22 07:01] LABS: ESTIMATED AVERAGE GLUCOSE 203 mg/dl; HA1C FLAG Normal (Normal)
[2017-04-22 07:37] VITALS: BP 125/70; PULSE 95; TEMP 36.5; O2SAT 91
[2017-04-22] MEDS ORDERED: PANTOprazole SOD 40 MG TAB PO SCH (08:00)
[2017-04-22] MEDS ORDERED: CEROVITE ADV FORMULA TAB PO SCH (08:00)
[2017-04-22] MEDS ORDERED: POLYETHYLENE (MIRALAX) 17 GM PACK PO SCH (08:00)
[2017-04-22] MEDS ORDERED: POTASSIUM GLUCONATE 595 MG PO SCH (08:00)
[2017-04-22] MEDS ORDERED: NON-FORMULARY MEDICATION (Biotin 1,000 MCG) PO SCH (09:00)
[2017-04-22] MEDS ORDERED: LISINOPRIL 40 MG TAB PO SCH (09:00)
[2017-04-22] MEDS: DOCUSATE SODIUM 100 MG CAP PO SCH (09:01)
[2017-04-22] MEDS: LIDODERM (LIDOCAINE) PATCH 5% TD SCH (09:02)
[2017-04-22] MEDS: INSULIN HUMAN REGULAR SC SCH ×2 (09:06→12:36)
[2017-04-22] MEDS: INSULIN GLARGINE SOLOSTAR 100 UNITS/ML 3 ML PEN SC SCH (09:07)
[2017-04-22] MEDS: OXYCODONE/ACETAMINOPHEN 5-325 TAB PO PRN ×2 (09:12→15:39)
--- NOTE | 2017-04-22 14:39 | Medical Consult ---
Consultation Date of Consultation: Apr 22, 2017. Attending Physician: Rl Horton M.D. Reason for Consultation: Right ovarian cyst History of Present Illness Patient is a 76 yo postmenopausal female who is admitted after fall with rib and hip pains She had CT of pelvis which showed cystic lesion of RO It was confirmed with Pelvic US: IMPRESSION: 1. 3.9 cm cystic lesion of the right adnexum contains thin internal septations without large soft tissue component. In a postmenopausal patient, differential considerations would include an ovarian cyst, paraovarian cyst, or ovarian epithelial neoplasm. 2. No evidence of ovarian torsion. 3. Prior hysterectomy. 4. 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 some years, not sure for how long. She has not had pelvis exam or US since then She had MG's which had been normal She denies personal or f/h of breast/ ovarian cancer She moyer been for 56 yrs but not sexually active for 1 year She denies pelvic pain/ vaginal spotting/ d/c or odor She had 3 's in the past Past Medical/Surgical History Medical Problems: (1) Acute head injury Status: Acute (2) Ambulatory dysfunction Status: Acute (3) Fall Status: Acute (4) Injury of right hip Status: Acute (5) Right hip pain Status: Acute Family History FH: cancer FH: diabetes mellitus FH: gallbladder disease FH: heart disease FH: lung disease Social History Smoking Status: Former Smoker (smoked 3ppd x 48 years) Smokeless Tobacco Use: No Alcohol Use: occasionally Drug Use: none Marital Status: Occupation Status: retired Allergies Coded Allergies: No Known Allergies (Unverified , 12/11/15) Current Inpatient Medications Current Inpatient Medications Medications (Trade) Dose Ordered Sig/Cass Route Start Time Stop Time Status Last Admin Dose Admin Multivitamins/ Minerals (Multivitamin W/ Minerals Tab) 1 tab QAM PO 04/22/17 08:00 05/22/17 08:59 04/22/17 09:11 1 TAB Simvastatin (Zocor Tab) 10 mg QPM PO 04/21/17 21:00 05/21/17 20:59 04/21/17 21:38 10 MG Pantoprazole Sodium (Protonix Tab) 40 mg QAM PO 04/22/17 08:00 05/22/17 07:59 04/22/17 09:11 40 MG Insulin Glargine (Lantus Solostar Pen) 5 units Q12 SC 04/21/17 21:00 18 20:59 04/22/17 09:07 5 UNITS Insulin Human Regular (novoLIN-R) SLIDING SCALE IF C... ACHS SC 04/21/17 21:00 05/21/17 20:59 04/22/17 12:36 5 UNITS Glucose (Glucose 40% Gel) 15-30 GRAMS 15 GRAMS... UD PRN PO 04/21/17 17:45 05/21/17 17:44 Glucose (Glucose Chew Tab) 4-8 Tablets 4 Tabl... UD PRN PO 04/21/17 17:45 05/21/17 17:44 Dextrose (Dextrose 50% 50ML Syringe) 25-50ML OF 50% DW IV FOR... UD PRN IV 04/21/17 17:45 05/21/17 17:44 Glucagon (Glucagon Inj) 1 mg UD PRN SQ 04/21/17 17:45 05/21/17 17:44 Heparin Sodium (Porcine) (Heparin Sq 5000 Unit/0.5ml) 5,000 unit Q8H SQ 04/21/17 20:00 05/21/17 19:59 04/21/17 21:49 5,000 UNIT Acetaminophen (Tylenol Tab) 650 mg Q4H PRN PO 04/21/17 17:45 05/21/17 17:44 Al Hydrox/Mg Hydrox/Simethicone (Maalox Max Susp) 15 ml Q4H PRN PO 04/21/17 17:45 05/21/17 17:44 Magnesium Hydroxide (Milk Of Magnesia Susp) 30 ml Q6H PRN PO 04/21/17 17:45 05/21/17 17:44 Polyethylene (Miralax Powder Packet) 17 gm DAILY PRN PO 04/21/17 17:45 05/21/17 17:44 Ondansetron HCl (Zofran Inj) 4 mg Q6H PRN IV 04/21/17 17:45 05/21/17 17:44 Miscellaneous Information (Order Awaiting Action) 1 ea QS N/A 04/22/17 00:00 05/22/17 00:00 Oxycodone/ Acetaminophen (Percocet 5-325mg Tab) 1 tab Q6 PRN PO 04/21/17 18:45 05/05/17 18:44 04/22/17 09:12 1 TAB Morphine Sulfate (MoRPHine SULFATE INJ) 2 mg Q4 PRN IV 04/21/17 18:45 05/05/17 18:44 Lidocaine (Lidoderm Patch 5%) 1 patch DAILY TD 04/21/17 19:45 05/21/17 19:44 04/22/17 09:02 1 PATCH Miscellaneous (Remove Lidoderm Patch) 1 ea DAILY@21 N/A 04/21/17 21:00 05/21/17 20:59 04/21/17 23:54 1 EA Docusate Sodium (coLACE CAP) 100 mg BID PO 04/21/17 20:00 05/21/17 19:59 Polyethylene (Miralax Powder Packet) 17 gm DAILY PO 04/22/17 08:00 05/22/17 07:59 Miscellaneous (Iv Fluids Completed) 1 ea PRN PRN N/A 04/22/17 01:00 04/22/18 00:59 Physical Exam Date Time Temp Pulse Resp B/P (MAP) Pulse Ox O2 Delivery O2 Flow Rate FiO2 04/22/17 08:00 Room Air 04/22/17 07:37 36.5 95 18 125/70 (88) 91 04/22/17 00:32 Room Air 04/21/17 23:43 36.4 104 20 118/61 (80) 91 Room Air 04/21/17 19:10 36.8 92 18 143/64 100 Room Air 04/21/17 18:36 95 18 130/57 92 Room Air 04/21/17 17:03 98 18 142/65 94 Room Air General Appearance: WD/WN, no apparent distress Neck: supple, no adenopathy Abdomen/GI: normal bowel sounds, non tender, soft, + pertinent finding (obesity ) Genitourinary - Female: external genitalia normal, normal ovaries and adnexa, + pertinent finding (normal physiologic genital atrophy, cervix absent, bimanual exam with NT, LOAN SECRETARY pelvis and adnexa, s/p hysterectomy) Skin: normal color, warm/dry, no rash Laboratory Results Last 24 Hours Test 04/21/17 14:52 04/21/17 19:16 04/21/17 21:03 04/21/17 21:43 White Blood Count 10.54 K/uL Red Blood Count 4.68 M/uL Hemoglobin 14.6 g/dL Hematocrit 44.3 % Mean Corpuscular Volume 94.7 fL Mean Corpuscular Hemoglobin 31.2 pg Mean Corpuscular Hemoglobin Concent 33.0 g/dl Platelet Count 196 K/uL Mean Platelet Volume 11.1 fL Neutrophils (%) (Auto) 70.5 % Lymphocytes (%) (Auto) 20.1 % Monocytes (%) (Auto) 7.7 % Eosinophils (%) (Auto) 0.9 % Basophils (%) (Auto) 0.5 % Neutrophils # (Auto) 7.43 K/uL Lymphocytes # (Auto) 2.12 K/uL Monocytes # (Auto) 0.81 K/uL Eosinophils # (Auto) 0.10 K/uL Basophils # (Auto) 0.05 K/uL RDW Standard Deviation 53.0 fL RDW Coefficient of Variation 15.3 % Immature Granulocyte % (Auto) 0.3 % Immature Granulocyte # (Auto) 0.03 K/uL Prothrombin Time 11.6 SECONDS Prothromb Time International Ratio 1.1 Activated Partial Thromboplast Time 26.8 SECONDS Partial Thromboplastin Ratio 1.0 Sodium Level 135 mmol/L Potassium Level 4.0 mmol/L Chloride Level 101 mmol/L Carbon Dioxide Level 21 mmol/L Anion Gap 14.0 mmol/L Blood Urea Nitrogen 13 mg/dl Creatinine 0.92 mg/dl Est Creatinine Clear Calc Drug Dose 53.7 ml/min Estimated GFR () 70.1 Estimated GFR (Non- 60.5 BUN/Creatinine Ratio 13.7 Random Glucose 222 mg/dl Calcium Level 9.4 mg/dl Bedside Glucose 78 mg/dl 108 mg/dl Urine Color DK YELLOW Urine Appearance CLEAR Urine pH 7.0 Urine Specific [place] 1.021 Urine Protein NEG Urine Glucose (UA) NEG Urine Ketones TRACE Urine Occult Blood NEG Urine Nitrite NEG Urine Bilirubin NEG Urine Urobilinogen NEG Urine Leukocyte Esterase NEG Test 04/22/17 05:10 04/22/17 07:20 04/22/17 08:01 04/22/17 10:09 Sodium Level 136 mmol/L Potassium Level 4.0 mmol/L Chloride Level 105 mmol/L Carbon Dioxide Level 28 mmol/L Anion Gap 3.0 mmol/L Blood Urea Nitrogen 10 mg/dl Creatinine 0.69 mg/dl Est Creatinine Clear Calc Drug Dose 71.6 ml/min Estimated GFR () 98.0 Estimated GFR (Non- 84.6 BUN/Creatinine Ratio 14.7 Random Glucose 89 mg/dl Estimated Average Glucose 203 mg/dl Hemoglobin A1c 8.7 % Calcium Level 8.5 mg/dl Bedside Glucose 114 mg/dl Lactate Dehydrogenase 189 U/L Carcinoembryonic Antigen 0.9 ng/ml Test 04/22/17 11:21 Bedside Glucose 209 mg/dl Assessment & Plan AP: 76 yo postmenopausal female with incidental finding of 3.9 cm RO cyst Looked at the pictures myself: seems to be simple although pictures are somewhat limited Normal pelvic exam, asymptomatic Discussed the findings and recommended blood work for markers and repeat US in 6 weeks I will arrange f/u US through our office Blood work is done and pending here All questions were answered
--- NOTE | 2017-04-22 15:04 | Progress Note ---
Medicine Progress Note Date & Time of Visit: Apr 22, 2017 at 14:28. Subjective Pt was seen and examined Sitting in chair comfortable with no distress Pt said that her pain feels much better She said that she feels fine She is anxious to go home today Denies any chest pain, palpitation, dizziness and SOB Objective Last 8 Hrs Date Time Temp Pulse Resp B/P (MAP) Pulse Ox O2 Delivery O2 Flow Rate FiO2 04/22/17 08:00 Room Air 04/22/17 07:37 36.5 95 18 125/70 (88) 91 Physical Exam: General- No acute distress Head- atraumatic Eyes- PERRL, EOMI ENT- oropharynx clear Neck- supple, no JVD Lungs- clear to auscultation Heart- regular rhythm Abdomen- normal bowel sounds, soft Extremities-no calf tenderness Neuro- alert, oriented x 3; PERRL, EOMI Skin- warm & dry Laboratory Results: Last 24 Hours Test 04/21/17 14:52 04/21/17 19:16 04/21/17 21:03 04/21/17 21:43 White Blood Count 10.54 K/uL Red Blood Count 4.68 M/uL Hemoglobin 14.6 g/dL Hematocrit 44.3 % Mean Corpuscular Volume 94.7 fL Mean Corpuscular Hemoglobin 31.2 pg Mean Corpuscular Hemoglobin Concent 33.0 g/dl Platelet Count 196 K/uL Mean Platelet Volume 11.1 fL Neutrophils (%) (Auto) 70.5 % Lymphocytes (%) (Auto) 20.1 % Monocytes (%) (Auto) 7.7 % Eosinophils (%) (Auto) 0.9 % Basophils (%) (Auto) 0.5 % Neutrophils # (Auto) 7.43 K/uL Lymphocytes # (Auto) 2.12 K/uL Monocytes # (Auto) 0.81 K/uL Eosinophils # (Auto) 0.10 K/uL Basophils # (Auto) 0.05 K/uL RDW Standard Deviation 53.0 fL RDW Coefficient of Variation 15.3 % Immature Granulocyte % (Auto) 0.3 % Immature Granulocyte # (Auto) 0.03 K/uL Prothrombin Time 11.6 SECONDS Prothromb Time International Ratio 1.1 Activated Partial Thromboplast Time 26.8 SECONDS Partial Thromboplastin Ratio 1.0 Sodium Level 135 mmol/L Potassium Level 4.0 mmol/L Chloride Level 101 mmol/L Carbon Dioxide Level 21 mmol/L Anion Gap 14.0 mmol/L Blood Urea Nitrogen 13 mg/dl Creatinine 0.92 mg/dl Est Creatinine Clear Calc Drug Dose 53.7 ml/min Estimated GFR () 70.1 Estimated GFR (Non- 60.5 BUN/Creatinine Ratio 13.7 Random Glucose 222 mg/dl Calcium Level 9.4 mg/dl Bedside Glucose 78 mg/dl 108 mg/dl Urine Color DK YELLOW Urine Appearance CLEAR Urine pH 7.0 Urine Specific [place] 1.021 Urine Protein NEG Urine Glucose (UA) NEG Urine Ketones TRACE Urine Occult Blood NEG Urine Nitrite NEG Urine Bilirubin NEG Urine Urobilinogen NEG Urine Leukocyte Esterase NEG Test 04/22/17 05:10 04/22/17 07:20 04/22/17 08:01 04/22/17 10:09 Sodium Level 136 mmol/L Potassium Level 4.0 mmol/L Chloride Level 105 mmol/L Carbon Dioxide Level 28 mmol/L Anion Gap 3.0 mmol/L Blood Urea Nitrogen 10 mg/dl Creatinine 0.69 mg/dl Est Creatinine Clear Calc Drug Dose 71.6 ml/min Estimated GFR () 98.0 Estimated GFR (Non- 84.6 BUN/Creatinine Ratio 14.7 Random Glucose 89 mg/dl Estimated Average Glucose 203 mg/dl Hemoglobin A1c 8.7 % Calcium Level 8.5 mg/dl Bedside Glucose 114 mg/dl Lactate Dehydrogenase 189 U/L Carcinoembryonic Antigen 0.9 ng/ml Test 04/22/17 11:21 Bedside Glucose 209 mg/dl Assessment & Plan R HIP PAIN S/P FALL CT Right LE showed no acute fracture or dislocation.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 Xray of pelvis/hip was negative for fracture Percocet help with the pain PT/OT on board OK to d/c home as per PT Continue Physical therapy as an outpatient Use rolling walker at home once discharge fall precaution Pt was advised not to get up too quick once standing up DM II - INSULIN DEPENDENT A1c 8.7, on 04/21 metformin and glimepiride and insulin 70/30 was on hold during hospital course NovoLog sliding scale per protocol Received lantus will resume diabetic med on discharge GERD On PPI DYSLIPIDEMIA On simvastatin HYPERPARATHYROIDISM On sensipar CYSTIC LESION RIGHT ADNEXA CT abd/pelvis showed cystic lesion of the right adnexum measures up to 5.1 x 4.3 cm. This could be further evaluated with pelvic ultrasound. U/S Pelvis showed 3.9 cm cystic lesion of the right adnexum contains thin internal septations without large soft tissue component. MAINTENANCE AND OPERATIONS SUPERVISOR consulted and lab sent for AFP, CA125, CA 19-9 HCG tumor marker Will need to follow as outpatient with MAINTENANCE AND OPERATIONS SUPERVISOR Repeat U/S in 6 weeks DVT PROPHYLAXIS Heparin SQ DISPOSITION Discharge home today Follow up with Dr. Al on 05/01 @ 10:45 AM call to schedule follow up appointment with gynecology Continue physical therapy Use Rolling walker to ambulate Fall precaution Consultants: MAINTENANCE AND OPERATIONS SUPERVISOR Current Inpatient Medications: Current Inpatient Medications Medications (Trade) Dose Ordered Sig/Cass Route Start Time Stop Time Status Last Admin Dose Admin Multivitamins/ Minerals (Multivitamin W/ Minerals Tab) 1 tab QAM PO 04/22/17 08:00 05/22/17 08:59 04/22/17 09:11 1 TAB Simvastatin (Zocor Tab) 10 mg QPM PO 04/21/17 21:00 05/21/17 20:59 04/21/17 21:38 10 MG Pantoprazole Sodium (Protonix Tab) 40 mg QAM PO 04/22/17 08:00 05/22/17 07:59 04/22/17 09:11 40 MG Insulin Glargine (Lantus Solostar Pen) 5 units Q12 SC 04/21/17 21:00 05/21/17 20:59 04/22/17 09:07 5 UNITS Insulin Human Regular (novoLIN-R) SLIDING SCALE IF C... ACHS SC 04/21/17 21:00 05/21/17 20:59 04/22/17 12:36 5 UNITS Glucose (Glucose 40% Gel) 15-30 GRAMS 15 GRAMS... UD PRN PO 04/21/17 17:45 05/21/17 17:44 Glucose (Glucose Chew Tab) 4-8 Tablets 4 Tabl... UD PRN PO 04/21/17 17:45 05/21/17 17:44 Dextrose (Dextrose 50% 50ML Syringe) 25-50ML OF 50% DW IV FOR... UD PRN IV 04/21/17 17:45 05/21/17 17:44 Glucagon (Glucagon Inj) 1 mg UD PRN SQ 04/21/17 17:45 05/21/17 17:44 Heparin Sodium (Porcine) (Heparin Sq 5000 Unit/0.5ml) 5,000 unit Q8H SQ 04/21/17 20:00 05/21/17 19:59 04/21/17 21:49 5,000 UNIT Acetaminophen (Tylenol Tab) 650 mg Q4H PRN PO 04/21/17 17:45 05/21/17 17:44 Al Hydrox/Mg Hydrox/Simethicone (Maalox Max Susp) 15 ml Q4H PRN PO 04/21/17 17:45 05/21/17 17:44 Magnesium Hydroxide (Milk Of Magnesia Susp) 30 ml Q6H PRN PO 04/21/17 17:45 05/21/17 17:44 Polyethylene (Miralax Powder Packet) 17 gm DAILY PRN PO 04/21/17 17:45 05/21/17 17:44 Ondansetron HCl (Zofran Inj) 4 mg Q6H PRN IV 04/21/17 17:45 05/21/17 17:44 Miscellaneous Information (Order Awaiting Action) 1 ea QS N/A 04/22/17 00:00 05/22/17 00:00 Oxycodone/ Acetaminophen (Percocet 5-325mg Tab) 1 tab Q6 PRN PO 04/21/17 18:45 05/05/17 18:44 04/22/17 09:12 1 TAB Morphine Sulfate (MoRPHine SULFATE INJ) 2 mg Q4 PRN IV 04/21/17 18:45 05/05/17 18:44 Lidocaine (Lidoderm Patch 5%) 1 patch DAILY TD 04/21/17 19:45 05/21/17 19:44 04/22/17 09:02 1 PATCH Miscellaneous (Remove Lidoderm Patch) 1 ea DAILY@21 N/A 04/21/17 21:00 05/21/17 20:59 04/21/17 23:54 1 EA Docusate Sodium (coLACE CAP) 100 mg BID PO 04/21/17 20:00 05/21/17 19:59 Polyethylene (Miralax Powder Packet) 17 gm DAILY PO 04/22/17 08:00 05/22/17 07:59 Miscellaneous (Iv Fluids Completed) 1 ea PRN PRN N/A 04/22/17 01:00 04/22/18 00:59
[2017-04-22] MEDS ORDERED: CLC100 PO (15:13)
[2017-04-22] MEDS ORDERED: OXYC-57 PO (15:13)
--- NOTE | 2017-04-22 15:28 | Discharge Instructions ---
Discharge Instructions Date of Service Apr 22, 2017. Admission Reason for Admission: Hip Pain Discharge Discharge Diagnosis / Problem: Right hip pain, Right adnexa cystic lesion, DM type 2 Discharge Goals Goal(s): Decrease discomfort, Improve function, Improve disease control Activity Recommendations Activity Limitations: resume your previous activity (as tolerated) . Instructions / Follow-Up Instructions / Follow-Up Discharge home today Follow up with Dr. Al on 05/01 @ 10:45 AM Please call to schedule follow up appointment with gynecology for the right pelvis cystic lesion Repeat U/S in 6 weeks (gynecology will arrange for that) Continue physical therapy Use Rolling walker to ambulate ( script given) Fall precaution Percocet for pain as needed. Please do not drive or use any machine after taking the Percocet for the pain Hold Percocet if you have any drowsiness Monitor blood sugar and follow a low carb diet Pending lab result for AFB, CA125, CA19-9 and HCG tumor marker Current Hospital Diet Patient's current hospital diet: Diabetes Type 2 Diet Discharge Diet Recommended Diet: Diabetes Type 2 Diet Pending Studies Studies pending at discharge: yes List of pending studies: AFP, CA125, CA19-9, HCG tumor marker Laboratory Results Hemoglobin A1c Test 04/22/17 05:10 Range/Units Estimated Average Glucose 203 mg/dl Hemoglobin A1c 8.7 H 4.5-5.6 % Medical Emergencies . Who to Call and When: Medical Emergencies: If at any time you feel your situation is an emergency, please call 911 immediately. . Non-Emergent Contact Non-Emergency issues call your: Primary Care Provider, Producer Arborist Manager Call Non-Emergent contact if: your pain is not controlled, your pain is worsening, you have any medication questions . . "Provider Documentation" section prepared by Rl Horton. . VTE Core Measure Inpt VTE Proph given/why not?: Unfractionated heparin SQ [place] Drug Monitoring Program Search Results: no issues identified (pt was found but no prescription)
[2017-04-22 15:43] VITALS: BP 125/70; PULSE 95; TEMP 36.5; O2SAT 91
--- NOTE | 2017-04-24 08:24 | Discharge Summary ---
Discharge Summary Date of Service Apr 24, 2017. Discharge Summary Admission Date: Apr 21, 2017 at 17:30 Discharge Date: Apr 22, 2017 Principal Diagnosis: Right hip pain Secondary Diagnoses/Problems: Right adnexa cystic lesion DM type 2 DM II - INSULIN DEPENDENT HYPERPARATHYROIDISM GERD Dyslipidemia Procedures: PELVIC COMPLETE NON OB HISTORY: 76 years-old Female ADENEXAL CYST right adnexal cystic lesion seen on comparison CT COMPARISON: None available TECHNIQUE: Multiple real-time sonographic images of the deep pelvic structures were obtained assessing grayscale appearance, color and spectral flow. FINDINGS: Prior hysterectomy. Right ovary measures 4.0 x 4.4 x 4.7 cm and demonstrates arterial inflow. Cystic lesion of the right adnexum is seen measuring up to 3.7 x 3.6 x 3.9 cm. There are thin internal septations within this lesion without thick mural nodularity. No internal flow within the lesion is documented. The left ovary is not diagnostically visualized. No left ovarian mass lesions or significant free pelvic fluid. IMPRESSION: 1. 3.9 cm cystic lesion of the right adnexum contains thin internal septations without large soft tissue component. In a postmenopausal patient, differential considerations would include an ovarian cyst, paraovarian cyst, or ovarian epithelial neoplasm. 2. No evidence of ovarian torsion. 3. Prior hysterectomy. 4. Left ovary not visualized. The above report was generated using voice recognition software. It may contain grammatical, syntax or spelling errors. Electronically signed by: Chong Smart M.D. 04/21/2017 7:33 PM Dictated Date/Time: 04/21/2017 7:27 PM R LOWER EXTREMITY WITHOUT HISTORY: 76 years-old Female right hip eval for fx acute right hip pain with concern for right hip fracture COMPARISON: Right femur and pelvis radiographs of same day TECHNIQUE: Multiple axial CT images of the right hip were obtained without contrast. Coronal and sagittal reformatted images were obtained from the axial data set and submitted for review. A dose lowering technique was used consistent with the principals of MIRTHA. FINDINGS: The bones appear mildly demineralized. There is mild to moderate right hip osteoarthritis with chondrocalcinosis. There is no acute fracture or dislocation. Degenerative changes are seen within the pubic symphysis. The imaged right hemipelvis appears intact without pelvic ring fracture identified. Cystic lesion of the right adnexum measures up to 5.1 x 4.3 cm. There appears to be distention of the bladder. Atherosclerosis of the femoral artery. No acute soft tissue abnormality identified. There appears to be a small hip joint effusion. IMPRESSION: 1. No acute fracture or dislocation. 2. 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 3. Cystic lesion of the right adnexum measures up to 5.1 x 4.3 cm. This could be further evaluated with pelvic ultrasound. The above report was generated using voice recognition software. It may contain grammatical, syntax or spelling errors. Electronically signed by: Chong Smart M.D. 04/21/2017 4:33 PM Dictated Date/Time: 04/21/2017 4:29 PM R FEMUR 2 VIEWS ROUTINE CLINICAL HISTORY: Fall on right hip. COMPARISON: Pelvis and right hip radiographs April 21, 2017 at 3:40 PM FINDINGS: Alignment of the right hip and right knee is anatomic. There is no acute fracture of the right femur. A calcific density inferior to the right inferior pubic ramus is likely chronic. IMPRESSION: No acute fracture of the right femur. Electronically signed by: Karson Goddard M.D. 04/21/2017 3:55 PM Dictated Date/Time: 04/21/2017 3:[address] OF THE HEAD WITHOUT CONTRAST CLINICAL HISTORY: Fall with head injury. COMPARISON STUDY: No previous studies for comparison. CT DOSE: 712.55 mGy.cm TECHNIQUE: Helical axial images of the head were obtained without IV contrast. Automated exposure control was utilized for the study. A dose lowering technique was utilized adhering to the principles of ALARA. FINDINGS: No acute intracranial hemorrhage, midline shift or mass effect is present. Ventricular system is normal. Basilar cisterns are patent. Prominence of the extra-axial CSF spaces is likely due to atrophy. A moderate size focus of encephalomalacia within left occipital lobe suggests old infarct. There are no findings to suggest acute dural sinus thrombosis or acute territorial infarct. No calvarial fracture is identified. Visualized portions of the sinuses and mastoid air cells are clear. IMPRESSION: 1. No acute intracranial findings. 2. No calvarial fracture. 3. Old left occipital lobe infarct. Electronically signed by: Karosn Goddard M.D. 04/21/2017 4:32 PM Dictated Date/Time: 04/21/2017 4:28 PM CHEST ONE VIEW PORTABLE HISTORY: 76 years-old Female hip fx preoperative exam. COMPARISON: None available TECHNIQUE: Portable AP view of the chest FINDINGS: Cardiomediastinal and hilar silhouettes are within normal limits. Atherosclerosis of the aorta. No pneumothorax, pleural effusion, focal airspace consolidation or overt pulmonary edema. Minimal linear subsegmental lateral left basilar opacities suggest atelectasis or scarring. Bones appear grossly intact. There are degenerative changes of the shoulders. IMPRESSION: No acute cardiopulmonary process. The above report was generated using voice recognition software. It may contain grammatical, syntax or spelling errors. Electronically signed by: Chong Smart M.D. 04/21/2017 3:55 PM Consultations: MANUFACTURING PROCESS TECHNICIAN Medication Reconciliation New Medications: Docusate Sodium (Docusate Sodium) 100 Mg Cap 100 MG PO BID for Constipation for 7 Days, CAP Oxycodone/Acetaminophen 5MG/325MG (Percocet 5MG/325MG) Tab 1 TAB PO Q8 PRN for Pain for 7 Days, #21 TAB hold for drowsiness Continued Medications: Alendronate Sodium (Alendronate Sodium) 70 Mg Tab 70 MG PO WK, #12 on sundays Cinacalcet (Sensipar) 30 Mg Tab 1 TAB PO DAILY for 30 Days, #30 TAB 11 Refills Glimepiride (Amaryl) 4 Mg Tab 8 MG PO QAM, TAB Glucosamine-Chondroitin (Osteo Bi-Flex Regular Str) 1 Tab Tab 1 TABLET PO QAM Insulin Aspart 70/30 (Novolog Mix 70/30) Susp 70 UNITS SQ BIDM, BTL Metformin Hcl (Glucophage) 1,000 Mg Tab 1000 MG PO BID, TAB Multivitamins/Minerals (Mvi With Minerals) Tab 1 TAB PO QAM, TAB Omeprazole (Prilosec) 20 Mg Capcr 20 MG PO QAM, CAP Potassium Gluconate (Potassium Gluconate Er) 595 Mg Tab 595 MG PO QAM Simvastatin (Zocor) 10 Mg Tab 10 MG PO QPM, TAB Admission Information HPI (per Admitting provider): Pt is 76 y/o F with PMH DM II insulin dependent, GERD, hyperparathyroidism, non- toxic multinodular goiter, osteoporosis presented to ER with c/o R hip pain. Pt states was getting out of bed when she stood up to walk and "just fell". Denies dizziness, lightheadedness, syncope, leg weakness prior to fall. Denies LOC and remembers incident and the days events. Thinks may have bumped her head. Reports falling onto R hip. C/O pain lateral right hip, worse with ROM and attempting to stand. Reports unable to bear weight secondary to pain. Doesn't feel like her legs are weak. Pain sharp and non-radiating. No prior treatment. Denies hx hip pain. Denies back pain, knee or ankle pain, other extremity pain, LE paresthesias, fever/chills, diaphoresis, N/V/D/C, BROWN, dizziness, syncope, vision changes, neck pain, CP, SOB, orthopnea, palpitations, cough, sore throat , choking, otalgia, rhinorrhea, abdominal pain, extremity edema, rashes, urinary symptoms. In ER pt received morphine 4mg and zofran. Reports helped with pain and no pain with lying supine. Pain with movement R hip and reports too much pain to bear weight on leg. Negative CT head, negative CXR, no fracture noted on R hip/ pelvis xray, no fracture on R femur xray, no fracture on R LE CT. Physical Exam (per Admitting): General Appearance: WD/WN, no apparent distress Head: normocephalic, atraumatic Eyes: normal inspection, PERRL, EOMI, sclerae normal ENT: hearing grossly normal, pharynx normal, + pertinent finding (mucous membranes moist) Neck: supple, no JVD, trachea midline, + pertinent finding (no spinous process tenderness to palpation, ROM intact without tenderness) Respiratory/Chest: chest non-tender, lungs clear, normal breath sounds, no respiratory distress, no accessory muscle use Cardiovascular: regular rate, rhythm, no edema, no murmur, normal peripheral pulses Abdomen/GI: normal bowel sounds, non tender, soft Back: normal inspection, no CVA tenderness, no muscle spasm Extremities/Musculoskelatal: no calf tenderness, normal capillary refill, no pedal edema, + pertinent finding (R hip: no edema/erythema/ecchymosis. + tenderness to palpation lateral hip. limited flexion of hip secondary to discomfort, internal and external rotation hip intact. R thigh/knee/leg/ankle/ foot non-tender, normal appearance, ROM intact. Remaining extremities with normal appearance, non-tender ROM intact. 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 Xray of pelvis/hip was negative for fracture Percocet help with the pain PT/OT on board OK to d/c home as per PT Continue Physical therapy as an outpatient Use rolling walker at home once discharge fall precaution Pt was advised not to get up too quick once standing up DM II - INSULIN DEPENDENT A1c 8.7, on 04/21 metformin and glimepiride and insulin 70/30 was on hold during hospital course NovoLog sliding scale per protocol Received lantus will resume diabetic med on discharge GERD On PPI DYSLIPIDEMIA On simvastatin HYPERPARATHYROIDISM On sensipar CYSTIC LESION RIGHT ADNEXA CT abd/pelvis showed cystic lesion of the right adnexum measures up to 5.1 x 4.3 cm. This could be further evaluated with pelvic ultrasound. U/S Pelvis showed 3.9 cm cystic lesion of the right adnexum contains thin internal septations without large soft tissue component. MANUFACTURING PROCESS TECHNICIAN consulted and lab sent for AFP, CA125, CA 19-9 HCG tumor marker Will need to follow as outpatient with MANUFACTURING PROCESS TECHNICIAN Repeat U/S in 6 weeks DVT PROPHYLAXIS Heparin SQ DISPOSITION Discharge home today Follow up with Dr. Al on 05/01 @ 10:45 AM call to schedule follow up appointment with gynecology Continue physical therapy Use Rolling walker to ambulate Fall precaution Total time spent on discharge = 35 minutes This includes examination of the patient, discharge planning, medication reconciliation, and communication with other providers. Discharge Instructions Discharge Instructions Date of Service Apr 22, 2017. Admission Reason for Admission: Hip Pain Discharge Discharge Diagnosis / Problem: Right hip pain, Right adnexa cystic lesion, DM type 2 Discharge Goals Goal(s): Decrease discomfort, Improve function, Improve disease control Activity Recommendations Activity Limitations: resume your previous activity (as tolerated) . Instructions / Follow-Up Instructions / Follow-Up Discharge home today Follow up with Dr. Al on 05/01 @ 10:45 AM Please call to schedule follow up appointment with gynecology for the right pelvis cystic lesion Repeat U/S in 6 weeks (gynecology will arrange for that) Continue physical therapy Use Rolling walker to ambulate ( script given) Fall precaution Percocet for pain as needed. Please do not drive or use any machine after taking the Percocet for the pain Hold Percocet if you have any drowsiness Monitor blood sugar and follow a low carb diet Pending lab result for AFB, CA125, CA19-9 and HCG tumor marker Current Hospital Diet Patient's current hospital diet: Diabetes Type 2 Diet Discharge Diet Recommended Diet: Diabetes Type 2 Diet Pending Studies Studies pending at discharge: yes List of pending studies: AFP, CA125, CA19-9, HCG tumor marker Laboratory Results Hemoglobin A1c Test 04/22/17 05:10 Range/Units Estimated Average Glucose 203 mg/dl Hemoglobin A1c 8.7 H 4.5-5.6 % Medical Emergencies . Who to Call and When: Medical Emergencies: If at any time you feel your situation is an emergency, please call 911 immediately. . Non-Emergent Contact Non-Emergency issues call your: Primary Care Provider, Anesthesiologist Call Non-Emergent contact if: your pain is not controlled, your pain is worsening, you have any medication questions . . "Provider Documentation" section prepared by Rl Horton. . VTE Core Measure Inpt VTE Proph given/why not?: Unfractionated heparin SQ [place] Drug Monitoring Program Search Results: no issues identified (pt was found but no prescription) Additional Copies To Alexy Al M.D.
[2017-04-25 11:30] LABS: AFP TUMOR MARKER SERUM 3.6 NG/ML (<6.1)
== END 2017-04-22 16:05 | disposition home health service (06) ==
LOC: C.EDB 14:00 → C.4E 17:30 → ENRESERV 17:39
PROVIDERS: ADMIT Hospitalist; ATTEND Internal Medicine
DX: M25.551 Pain in right hip (principal); N94.89 Other specified conditions associated with female genital organs and menstrual cycle; E11.9 Type 2 diabetes mellitus without complications; E21.3 Hyperparathyroidism, unspecified; K21.9 Gastro-esophageal reflux disease without esophagitis; I10 Essential (primary) hypertension; I25.10 Atherosclerotic heart disease of native coronary artery without angina pectoris; F17.200 Nicotine dependence, unspecified, uncomplicated; Z79.4 Long term (current) use of insulin; Z98.49 Cataract extraction status, unspecified eye; Z90.710 Acquired absence of both cervix and uterus; Z90.89 Acquired absence of other organs; Z80.9 Family history of malignant neoplasm, unspecified; Z83.3 Family history of diabetes mellitus; Z82.49 Family history of ischemic heart disease and other diseases of the circulatory system

== ENCOUNTER 2022-01-22 17:49 | Inpatient (IN) ==
[2022-01-22] MEDS ORDERED: FUROSEMIDE 40 MG/4 ML VIAL IV ONE (18:10)
--- NOTE | 2022-01-22 18:10 | Emergency Department Note ---
History of Present Illness General Chief complaint: Shortness of Breath/Dyspnea Time Seen by Provider: 01/22/22 17:58 Source: patient Mode of arrival: EMS Limitations: no limitations History of Present Illness Provider complaint: Increased shortness of breath, cough This is an 81-year-old female presents to the emergency department due to increased shortness of breath and worsening cough. Patient states symptoms began approximately 4 days ago. She states her at home is also ill. She denies nasal congestion, rhinorrhea, sore throat, fevers or chills. She denies chest pain or pressure. She states she is a former smoker, however does not wear home oxygen or use any MDIs. Patient states her cough has been productive intermittently of yellowish sputum. No hemoptysis. Patient also notes she has had increasing lower extremity swelling for the last several months. Patient states she does have a remote history of stent placement in 1994 but did not have a heart attack. She states she has not followed with cardiology since around that time. She denies any prior history of congestive heart failure. She denies any recent change in her medications. Patient states she did take a home COVID test which was negative. On arrival here patient was noted to be hypoxic on room air at 88%. She was placed on nasal cannula. Pt seen during a time of high acuity and national emergency pandemic while wearing PPE. Home Medications Medication Instructions Recorded Confirmed Type alendronate 70 mg tablet 70 mg PO WK 01/22/22 01/22/22 History amlodipine 5 mg tablet 5 mg PO QAM 01/22/22 01/22/22 History biotin 1 mg tablet 1 mg PO TID 01/22/22 01/22/22 History cinacalcet 30 mg tablet 30 mg PO DAILY 01/22/22 01/22/22 History glucosamine-chondroitin 250 mg-200 1 tab PO DAILY 01/22/22 01/22/22 History mg tablet (Osteo Bi-Flex) insulin human U-100 NPH-regulr 55 unit subcut QPM 01/22/22 01/22/22 History 70-30 mix 100 unit/mL subcutaneous susp (Novolin 70/30 U-100 Insulin) insulin human U-100 NPH-regulr 75 unit subcut QAM 01/22/22 01/22/22 History 70-30 mix 100 unit/mL subcutaneous susp (Novolin 70/30 U-100 Insulin) losartan 25 mg tablet 25 mg PO DAILY 01/22/22 01/22/22 History metformin 1,000 mg tablet 1,000 mg PO BID 01/22/22 01/22/22 History tulhzispnbay-ohrcvfsl-orcuix tablet 1 tab PO DAILY 01/22/22 01/22/22 History omeprazole 20 mg capsule,delayed 20 mg PO DAILY 01/22/22 01/22/22 History release potassium gluconate 595 mg (99 mg) 595 mg PO DAILY 01/22/22 01/22/22 History tablet simvastatin 10 mg tablet 10 mg PO DAILY 01/22/22 01/22/22 History vitamin B complex 1 tab PO DAILY 01/22/22 01/22/22 History Allergies Allergy/AdvReac Type Severity Reaction Status Date / Time No Known Allergies Allergy Unverified 01/22/22 20:03 Past Med/Surg History Social History Smoking Status: Former smoker Smoking End Date: 2006; Hx Alcohol Use: Yes Alcohol type: beer Hx Substance Use: No Preferred Language: Monegasque Communication Ability: Effective Treasury Representative Required: No Beliefs That Will Affect Care: None Current Living Situation: Spouse Other Information That Helps Us Care for You: No Feels Safe at Home: Yes Safety Concerns: Feels Safe At This Time Assistive Devices: Walker Review of Systems A total of 10 systems reviewed and were otherwise negative All systems reviewed & are unremarkable except as noted in HPI & below Physical Exam Vital Signs Vital Signs - 24 hr 01/22/22 17:53 01/22/22 17:53 01/22/22 18:04 Temperature 36.6 C Temperature Source Oral Pulse Rate 100 H Pulse Rate from SpO2 Sensor Respiratory Rate 22 Respiratory Effort / Characteristics Respiratory Depth Respiratory Pattern Blood Pressure 121/86 Blood Pressure Mean 97 Pulse Oximetry 88 L 98 98 Oxygen Delivery Method Room Air Nasal Cannula Nasal Cannula Oxygen Flow Rate 3 3 Sepsis Recent Fever Within 48 Hours No Sepsis New/Unexplained Change in Mental Status N/A Sepsis Action Taken by Nursing No Action Required 01/22/22 18:43 01/22/22 18:44 01/22/22 18:04 Temperature Temperature Source Pulse Rate 99 H Pulse Rate from SpO2 Sensor 99 H Respiratory Rate 24 17 Respiratory Effort / Characteristics Non-Labored Spontaneous Respiratory Depth Normal Respiratory Pattern Regular Blood Pressure Blood Pressure Mean Pulse Oximetry 86 L 94 Oxygen Delivery Method Nasal Cannula Nasal Cannula Nasal Cannula Oxygen Flow Rate 3 4 4 Sepsis Recent Fever Within 48 Hours Sepsis New/Unexplained Change in Mental Status Sepsis Action Taken by Nursing 01/22/22 18:10 01/22/22 18:20 01/22/22 18:30 Temperature Temperature Source Pulse Rate 100 H 98 H Pulse Rate from SpO2 Sensor 98 H 98 H Respiratory Rate 24 Respiratory Effort / Characteristics Respiratory Depth Respiratory Pattern Blood Pressure 146/58 H Blood Pressure Mean 87 Pulse Oximetry 94 93 Oxygen Delivery Method Nasal Cannula Nasal Cannula Nasal Cannula Oxygen Flow Rate 4 4 4 Sepsis Recent Fever Within 48 Hours Sepsis New/Unexplained Change in Mental Status Sepsis Action Taken by Nursing 01/22/22 18:30 01/22/22 18:40 01/22/22 18:50 Temperature Temperature Source Pulse Rate 97 H 113 H 99 H Pulse Rate from SpO2 Sensor 97 H 113 H 98 H Respiratory Rate 25 H 28 H 18 Respiratory Effort / Characteristics Respiratory Depth Respiratory Pattern Blood Pressure Blood Pressure Mean Pulse Oximetry 93 95 Oxygen Delivery Method Nasal Cannula Nasal Cannula Nasal Cannula Oxygen Flow Rate 4 4 4 Sepsis Recent Fever Within 48 Hours Sepsis New/Unexplained Change in Mental Status Sepsis Action Taken by Nursing 01/22/22 19:00 01/22/22 19:00 01/22/22 19:10 Temperature Temperature Source Pulse Rate 100 H 113 H Pulse Rate from SpO2 Sensor 99 H Respiratory Rate 18 21 Respiratory Effort / Characteristics Respiratory Depth Respiratory Pattern Blood Pressure 142/53 H Blood Pressure Mean 82 Pulse Oximetry 95 Oxygen Delivery Method Nasal Cannula Nasal Cannula Nasal Cannula Oxygen Flow Rate 4 4 4 Sepsis Recent Fever Within 48 Hours Sepsis New/Unexplained Change in Mental Status Sepsis Action Taken by Nursing 01/22/22 19:20 01/22/22 19:30 01/22/22 19:40 Temperature Temperature Source Pulse Rate 100 H 103 H 106 H Pulse Rate from SpO2 Sensor Respiratory Rate 19 20 20 Respiratory Effort / Characteristics Respiratory Depth Respiratory Pattern Blood Pressure Blood Pressure Mean Pulse Oximetry Oxygen Delivery Method Nasal Cannula Nasal Cannula Nasal Cannula Oxygen Flow Rate 4 4 4 Sepsis Recent Fever Within 48 Hours Sepsis New/Unexplained Change in Mental Status Sepsis Action Taken by Nursing 01/22/22 19:50 01/22/22 20:00 01/22/22 20:10 Temperature Temperature Source Pulse Rate 97 H 105 H 102 H Pulse Rate from SpO2 Sensor Respiratory Rate 19 21 24 Respiratory Effort / Characteristics Respiratory Depth Respiratory Pattern Blood Pressure Blood Pressure Mean Pulse Oximetry Oxygen Delivery Method Nasal Cannula Nasal Cannula Nasal Cannula Oxygen Flow Rate 4 4 4 Sepsis Recent Fever Within 48 Hours Sepsis New/Unexplained Change in Mental Status Sepsis Action Taken by Nursing 01/22/22 20:20 01/22/22 20:32 01/22/22 20:33 Temperature Temperature Source Pulse Rate 108 H 110 H 108 H Pulse Rate from SpO2 Sensor 111 H 108 H Respiratory Rate 21 22 23 Respiratory Effort / Characteristics Respiratory Depth Respiratory Pattern Blood Pressure Blood Pressure Mean Pulse Oximetry 90 93 Oxygen Delivery Method Nasal Cannula Nasal Cannula Nasal Cannula Oxygen Flow Rate 4 4 4 Sepsis Recent Fever Within 48 Hours Sepsis New/Unexplained Change in Mental Status Sepsis Action Taken by Nursing 01/22/22 20:33 01/22/22 20:40 01/22/22 20:50 Temperature Temperature Source Pulse Rate 99 H 100 H Pulse Rate from SpO2 Sensor 99 H 100 H Respiratory Rate 25 H 19 Respiratory Effort / Characteristics Respiratory Depth Respiratory Pattern Blood Pressure 151/72 H Blood Pressure Mean 98 Pulse Oximetry 92 94 Oxygen Delivery Method Nasal Cannula Nasal Cannula Nasal Cannula Oxygen Flow Rate 4 4 4 Sepsis Recent Fever Within 48 Hours Sepsis New/Unexplained Change in Mental Status Sepsis Action Taken by Nursing 01/22/22 21:00 01/22/22 21:00 Temperature Temperature Source Pulse Rate 96 H Pulse Rate from SpO2 Sensor 96 H Respiratory Rate 19 Respiratory Effort / Characteristics Respiratory Depth Respiratory Pattern Blood Pressure 143/57 H Blood Pressure Mean 85 Pulse Oximetry 93 Oxygen Delivery Method Nasal Cannula Nasal Cannula Oxygen Flow Rate 4 4 Sepsis Recent Fever Within 48 Hours Sepsis New/Unexplained Change in Mental Status Sepsis Action Taken by Nursing GENERAL: alert, uncomfortable appearing, well nourished, no distress, non-toxic EYE EXAM: normal conjunctiva, PERRL and EOM's grossly intact OROPHARYNX: no exudate, no erythema, lips, buccal mucosa, and tongue normal and mucous membranes are moist NECK: supple, no nuchal rigidity, no adenopathy, non-tender LUNGS: Decreased to auscultation. Normal chest wall mechanics, no w/r, bibasilar rales, increased work of breathing, slight tachypnea that worsens with conversation HEART: no murmurs, S1 normal and S2 normal ABDOMEN: abdomen soft, non-tender, normo-active bowel sounds, no masses, no rebound or guarding. BACK: Back is symmetrical on inspection and there is no deformity, no midline tenderness, no CVA tenderness. SKIN: no rashes and no bruising UPPER EXTREMITIES: upper extremities are grossly normal. FROM, nml pulses b/l. LOWER EXTREMITIES: 3+ b/l pitting edema. FROM, nml pulses b/l. NEURO EXAM: Normal sensorium, cranial nerves II-XII grossly intact, normal speech, no gross weakness of arms, no gross weakness of legs. Gross sensation intact. Course Course 1844: Pt updated on results so far. Patient had decreased sats with transfer to bedside commode even while on oxygen. Administered Medications Acetaminophen (Acetaminophen 325 Mg Tab) 650 mg PO Q4H PRN PRN Reason: Pain or Fever Stop: 02/21/22 22:31 Last Admin: 01/23/22 10:45 Dose: 650 mg Documented By: Admin: 01/22/22 23:58 Dose: 650 mg Documented By: RUMA Amlodipine Besylate (Amlodipine Besylate 5 Mg Tab) 5 mg PO [facility] Stop: 02/22/22 08:59 Last Admin: 01/23/22 08:08 Dose: 5 mg Documented By: MORIS Aspirin (Aspirin 81 Mg Ectab) 81 mg PO [facility] Stop: 02/22/22 08:59 Last Admin: 01/23/22 08:07 Dose: 81 mg Documented By: MORIS Cinacalcet (Cinacalcet Hcl 30 Mg Tab) 30 mg PO DAILY [facility] Stop: 02/22/22 08:59 Last Admin: 01/23/22 10:45 Dose: 30 mg Documented By: MORIS Doxycycline Hyclate (Doxycycline Hyclate 100 Mg Cap) 100 mg PO BID [facility] Stop: 01/30/22 08:59 Last Admin: 01/23/22 20:10 Dose: 100 mg Documented By: Admin: 01/23/22 08:08 Dose: 100 mg Documented By: MORIS Enoxaparin Sodium (Enoxaparin Inj 40 Mg/0.4 Ml Syr) [facility] [place] [facility] Stop: 02/22/22 08:59 Last Admin: 01/23/22 08:07 Dose: 40 mg Documented By: MORIS Guaifenesin (Guaifenesin 600 Mg Tabcr) 1,200 mg PO Q12 [facility] Stop: 02/22/22 20:59 Last Admin: 01/23/22 20:09 Dose: 1,200 mg Documented By: RUMA Ceftriaxone Sodium 2,000 mg/ (Dextrose) 70 mls @ 100 mls/hr IV DAILY DESIREE; Protocol Stop: 01/30/22 08:59 Last Infusion: 01/23/22 09:53 Dose: 0 mls/hr Documented By: Admin: 01/23/22 08:24 Dose: 100 mls/hr Documented By: MORIS Insulin Aspart (Insulin Aspart Per Unit) 0 units SC ACHS [facility] Stop: 02/21/22 22:31 Last Admin: 01/23/22 20:16 Dose: Not Given Documented By: Admin: 01/23/22 17:28 Dose: 10 units Documented By: MORIS Co-signed By: DELMIS Admin: 01/23/22 12:13 Dose: 26 units Documented By: MORIS Co-signed By: DELMIS Admin: 01/23/22 09:00 Dose: 9 units Documented By: MORIS Co-signed By: DELMIS Admin: 01/22/22 22:52 Dose: 4 units Documented By: RUMA Co-signed By: FLAKITA Insulin Aspart (Insulin Aspart Per Unit) 0 units SC 0000,0400 [facility] Stop: 01/24/22 04:01 Last Admin: 01/23/22 23:37 Dose: Not Given Documented By: RUMA Ipratropium Plano (Ipratropium [place] Neb Soln 0.02% 2.5 Ml Vial) 0.5 mg INH Q6R [facility] Stop: 02/22/22 11:14 Last Admin: 01/23/22 19:06 Dose: 0.5 mg Documented By: Admin: 01/23/22 11:11 Dose: 0.5 mg Documented By: NICHOL Levalbuterol HCl (Levalbuterol 1.25mg/0.5ml Neb) 1.25 mg INH Q6R [facility] Stop: 02/22/22 11:14 Last Admin: 01/23/22 19:07 Dose: 1.25 mg Documented By: Admin: 01/23/22 11:12 Dose: Not Given Documented By: NICHOL Losartan Potassium (Losartan Potassium 25 Mg Tab) 25 mg PO DAILY [facility] Stop: 02/22/22 08:59 Last Admin: 01/23/22 08:09 Dose: 25 mg Documented By: MORIS Metoprolol Tartrate (Metoprolol Tartrate 25 Mg Tab) 12.5 mg PO BID [facility] Stop: 02/22/22 08:59 Last Admin: 01/23/22 20:09 Dose: 12.5 mg Documented By: Admin: 01/23/22 08:08 Dose: 12.5 mg Documented By: MORIS Multivitamins (Multivitamin Tab) 1 tab PO DAILY [facility] Stop: 02/22/22 08:59 Last Admin: 01/23/22 08:08 Dose: 1 tab Documented By: MORIS Pantoprazole Sodium (Pantoprazole 40 Mg Tab) 40 mg PO DAILY [facility] Stop: 02/22/22 08:59 Last Admin: 01/23/22 08:08 Dose: 40 mg Documented By: MORIS Potassium Chloride (Potassium Chloride Crtab 20 Meq Tabcr) 20 meq PO DAILY [facility] Stop: 02/22/22 08:59 Last Admin: 01/23/22 08:09 Dose: 20 meq Documented By: MORIS Simvastatin (Simvastatin 10 Mg Tab) 10 mg PO DAILY [facility] Stop: 02/22/22 08:59 Last Admin: 01/23/22 08:08 Dose: 10 mg Documented By: MORIS Tramadol HCl (Tramadol Hcl 50 Mg Tablet) 25 - 50 mg PO Q4H PRN PRN Reason: Pain Stop: 02/21/22 22:31 Last Admin: 01/23/22 19:02 Dose: 50 mg Documented By: Admin: 01/23/22 10:45 Dose: 50 mg Documented By: Admin: 01/23/22 00:48 Dose: 25 mg Documented By: RUMA Vitamin B Complex (Vitamin B Complex Tab) 1 tab PO DAILY [facility] Stop: 02/22/22 08:59 Last Admin: 01/23/22 08:08 Dose: 1 tab Documented By: MORIS Discontinued Medications Furosemide (Furosemide 40 Mg/4 Ml Vial) 40 mg IV ONE ONE Stop: 01/22/22 18:11 Last Admin: 01/22/22 18:25 Dose: 40 mg Documented By: MIRTA Furosemide (Furosemide 40 Mg/4 Ml Vial) 40 mg IV BID17 DESIREE Stop: 01/23/22 17:01 Last Admin: 01/23/22 17:12 Dose: 40 mg Documented By: Admin: 01/23/22 08:09 Dose: 40 mg Documented By: MORIS Magnesium Sulfate/Dextrose (Magnesium Sulfate / D5w) 1 gm in 100 mls @ 100 mls/hr IV NOW STA Stop: 01/22/22 20:07 Last Infusion: 01/22/22 21:14 Dose: 0 mls/hr Documented By: Admin: 01/22/22 20:05 Dose: 100 mls/hr Documented By: MIRTA Magnesium Sulfate/Dextrose (Magnesium Sulfate / D5w) 1 gm in 100 mls @ 50 mls/hr IV ONE ONE Stop: 01/22/22 21:26 Last Infusion: 01/22/22 23:25 Dose: 0 mls/hr Documented By: Admin: 01/22/22 21:14 Dose: 50 mls/hr Documented By: MIRTA Doxycycline Hyclate 100 mg/ (Dextrose) 110 mls @ 50 mls/hr IV NOW STA Stop: 01/22/22 22:49 Last Infusion: 01/23/22 00:02 Dose: 0 mls/hr Documented By: Admin: 01/22/22 21:32 Dose: 50 mls/hr Documented By: MIRTA Methylprednisolone 20 mg/ (Syringe) 0.32 mls @ 1.5 mls/min IV NOW STA Stop: 01/22/22 20:39 Last Admin: 01/22/22 21:32 Dose: 1.5 mls/min Documented By: MIRTA Insulin Glargine (Lantus Per Unit Charge) 5 units SQ BID [facility] Stop: 02/22/22 00:14 Last Admin: 01/23/22 00:36 Dose: 5 units Documented By: RUMA Co-signed By: FLAKITA Insulin Glargine (Lantus Per Unit Charge) 25 units SQ ONE ONE Stop: 01/23/22 09:01 Last Admin: 01/23/22 09:00 Dose: 25 units Documented By: MORIS Co-signed By: DELMIS Insulin Glargine (Lantus Per Unit Charge) 25 units SQ ONE ONE Stop: 01/23/22 11:46 Last Admin: 01/23/22 12:13 Dose: 25 units Documented By: MORIS Co-signed By: DELMIS Ipratropium [place] (Ipratropium [place] Neb Soln 0.02% 2.5 Ml Vial) 0.5 mg INH NOW STA Stop: 01/22/22 20:39 Last Admin: 01/22/22 21:15 Dose: 0.5 mg Documented By: KATHY Levalbuterol HCl (Levalbuterol 1.25mg/0.5ml Neb) 1.25 mg INH NOW STA Stop: 01/22/22 20:39 Last Admin: 01/22/22 21:16 Dose: 1.25 mg Documented By: KATHY Levalbuterol HCl (Levalbuterol Hcl 1.25 Mg/3 Ml Neb) Confirm Administered Dose 1.25 mg .ROUTE .STK-MED ONE Stop: 01/23/22 11:09 Last Admin: 01/23/22 11:11 Dose: 1.25 mg Documented By: NICHOL Metoprolol Tartrate (Metoprolol Tartrate 25 Mg Tab) 12.5 mg PO NOW STA Stop: 01/23/22 00:13 Last Admin: 01/23/22 00:35 Dose: 12.5 mg Documented By: RUMA Nitroglycerin (Nitroglycerin 2% Ointment 30gm Tube) 1 inch EXT Q6H [facility] Stop: 02/21/22 18:14 Last Admin: 01/22/22 18:25 Dose: 1 inch Documented By: MIRTA Medical Decision Making Differential Diagnosis Differential diagnoses includes but is not limited to pneumonia, bronchitis, COPD/Asthma exacerbation, pneumothorax, pulmonary embolism, congestive heart failure, acute coronary syndrome Medical Records Attestation: I reviewed the patient's medical records. Home Medications Current Medication List: was personally reviewed by me Laboratory Data Attestation: I reviewed the patient's lab results. Result diagrams: 01/23/22 05:36 01/23/22 05:36 Lab Results 01/22/22 01/22/22 01/22/22 Range/Units 17:55 17:55 17:55 WBC 12.54 H (4.8-10.8) K/ul RBC 4.37 (3.93-5.22) M/uL Hgb 9.0 L (12.0-16.0) g/dl Hct 30.0 L (34.1-44.9) % MCV 68.6 L (80.0-100.0) fL MCH 20.6 L (25.0-34.0) pg MCHC 30.0 L (32.0-36.0) g/dL RDW Std Deviation 54.6 H (36.4-46.3) fL RDW Coeff of Vanita 22.9 H (11.5-14.5) % Plt Count 316 (130-400) K/uL MPV 10.4 (9.4-12.3) fL Immature Gran % (Auto) 0.2 % Neut % (Auto) 58.3 % Lymph % (Auto) 27.7 % [place] % (Auto) 10.9 % Eos % (Auto) 1.9 % Baso % (Auto) 1.0 % Reticulocyte % (Auto) (0.5-2.0) % Neut # (Auto) 7.31 H (1.4-6.5) K/uL Lymph # (Auto) 3.47 H (1.2-3.4) K/uL [place] # (Auto) 1.37 H (0.24-0.82) K/uL Eos # (Auto) 0.24 (0-0.50) K/uL Baso # (Auto) 0.12 (0-0.2) K/uL Reticulocyte # (0.02-0.10) 10^6/uL Immature Gran # (Auto) 0.03 H (0.00-0.02) K/uL Polychromasia 1+ Microcytosis Present Target Cells 1+ Ovalocytes 1+ APTT (21.0-31.0) Seconds PTT Ratio ABG pH (7.35-7.45) ABG pCO2 (35-46) mmHg ABG pO2 (80-95) mmHg ABG HCO3 (19-24) mmol/L ABG O2 Saturation (90-95) % ABG Base Excess (-9-1.8) mEq/L Jose Test (Pos) Oxygen Given Sodium 139 (136-145) mmol/L Potassium 4.2 (3.5-5.1) mmol/L Chloride 105 (98-107) mmol/L Carbon Dioxide 23 (21-32) mmol/L Anion Gap 11 (3-11) BUN 13 (6-23) mg/dl Creatinine 0.62 (0.6-1.2) mg/dl Est Cr Clr Drug Dosing 77.7 ml/min Est GFR ( Amer) 98.0 ml/min Est GFR (Non-Af Amer) 84.6 ml/min BUN/Creatinine Ratio 21.0 H (10-20) Glucose 65 L (70-99(Fasting)) mg/dl Calcium 9.2 (8.5-10.1) mg/dl Magnesium 1.5 L (1.7-2.4) mg/dl Iron (35-150) mcg/dl Transferrin (200-360) mg/dl Ferritin (8-388) ng/ml Total Bilirubin 1.0 (0.2-1.0) mg/dl AST 26 (13-39) U/L ALT 17 (7-52) U/L Alkaline Phosphatase 51 (34-104) U/L Troponin I High Sens 129.7 H* (0-14) pg/ml B-Natriuretic Peptide 142 H (0-100) pg/ml Total Protein 7.2 (6.0-8.3) gm/dl Albumin 3.6 (3.4-5.0) gm/dl Globulin 3.6 (2.5-4.0) gm/dl Albumin/Globulin Ratio 1.0 (0.9-2) Lipase 18 (11-82) U/L Vitamin B12 (180-914) pg/ml TSH (0.300-4.500) uIu/ml Urine Color Urine Appearance (Clear) Urine pH (4.5-7.5) Ur Specific [place] (1.000-1.030) Urine Protein (Negative) Urine Glucose (UA) (Negative) Urine Ketones (Negative) Urine Blood (Negative) Urine Nitrite (Negative) Urine Bilirubin (Negative) Urine Urobilinogen (Negative) Ur Leukocyte Esterase (Negative) Urine WBC (Auto) (0-5) /hpf Urine RBC (Auto) (0-4) /hpf U Hyaline Cast (Auto) (0-5) /lpf U Epithel Cells (Auto) (0-5) /lpf Urine Bacteria (Auto) (Negative) SARS-CoV-2 (PCR) (Negative) Influenza Type A (PCR) (Neg) Influenza Type B (PCR) (Neg) RSV (RT-PCR) (Neg) Blood Type Antibody Screen 01/22/22 01/22/22 01/22/22 Range/Units 17:55 17:55 17:55 WBC (4.8-10.8) K/ul RBC (3.93-5.22) M/uL Hgb (12.0-16.0) g/dl Hct (34.1-44.9) % MCV (80.0-100.0) fL MCH (25.0-34.0) pg MCHC (32.0-36.0) g/dL RDW Std Deviation (36.4-46.3) fL RDW Coeff of Vanita (11.5-14.5) % Plt Count (130-400) K/uL MPV (9.4-12.3) fL Immature Gran % (Auto) % Neut % (Auto) % Lymph % (Auto) % [place] % (Auto) % Eos % (Auto) % Baso % (Auto) % Reticulocyte % (Auto) 2.3 H (0.5-2.0) % Neut # (Auto) (1.4-6.5) K/uL Lymph # (Auto) (1.2-3.4) K/uL [place] # (Auto) (0.24-0.82) K/uL Eos # (Auto) (0-0.50) K/uL Baso # (Auto) (0-0.2) K/uL Reticulocyte # 0.10 (0.02-0.10) 10^6/uL Immature Gran # (Auto) (0.00-0.02) K/uL Polychromasia Microcytosis Target Cells Ovalocytes APTT 26.9 (21.0-31.0) Seconds PTT Ratio 1.0 ABG pH (7.35-7.45) ABG pCO2 (35-46) mmHg ABG pO2 (80-95) mmHg ABG HCO3 (19-24) mmol/L ABG O2 Saturation (90-95) % ABG Base Excess (-9-1.8) mEq/L Jose Test (Pos) Oxygen Given Sodium (136-145) mmol/L Potassium (3.5-5.1) mmol/L Chloride (98-107) mmol/L Carbon Dioxide (21-32) mmol/L Anion Gap (3-11) BUN (6-23) mg/dl Creatinine (0.6-1.2) mg/dl Est Cr Clr Drug Dosing ml/min Est GFR ( Amer) ml/min Est GFR (Non-Af Amer) ml/min BUN/Creatinine Ratio (10-20) Glucose (70-99(Fasting)) mg/dl Calcium (8.5-10.1) mg/dl Magnesium (1.7-2.4) mg/dl Iron (35-150) mcg/dl Transferrin (200-360) mg/dl Ferritin (8-388) ng/ml Total Bilirubin (0.2-1.0) mg/dl AST (13-39) U/L ALT (7-52) U/L Alkaline Phosphatase (34-104) U/L Troponin I High Sens (0-14) pg/ml B-Natriuretic Peptide (0-100) pg/ml Total Protein (6.0-8.3) gm/dl Albumin (3.4-5.0) gm/dl Globulin (2.5-4.0) gm/dl Albumin/Globulin Ratio (0.9-2) Lipase (11-82) U/L Vitamin B12 (180-914) pg/ml TSH 1.187 (0.300-4.500) uIu/ml Urine Color Urine Appearance (Clear) Urine pH (4.5-7.5) Ur Specific [place] (1.000-1.030) Urine Protein (Negative) Urine Glucose (UA) (Negative) Urine Ketones (Negative) Urine Blood (Negative) Urine Nitrite (Negative) Urine Bilirubin (Negative) Urine Urobilinogen (Negative) Ur Leukocyte Esterase (Negative) Urine WBC (Auto) (0-5) /hpf Urine RBC (Auto) (0-4) /hpf U Hyaline Cast (Auto) (0-5) /lpf U Epithel Cells (Auto) (0-5) /lpf Urine Bacteria (Auto) (Negative) SARS-CoV-2 (PCR) (Negative) Influenza Type A (PCR) (Neg) Influenza Type B (PCR) (Neg) RSV (RT-PCR) (Neg) Blood Type Antibody Screen 01/22/22 01/22/22 01/22/22 Range/Units 17:55 18:30 18:45 WBC (4.8-10.8) K/ul RBC (3.93-5.22) M/uL Hgb (12.0-16.0) g/dl Hct (34.1-44.9) % MCV (80.0-100.0) fL MCH (25.0-34.0) pg MCHC (32.0-36.0) g/dL RDW Std Deviation (36.4-46.3) fL RDW Coeff of Vanita (11.5-14.5) % Plt Count (130-400) K/uL MPV (9.4-12.3) fL Immature Gran % (Auto) % Neut % (Auto) % Lymph % (Auto) % [place] % (Auto) % Eos % (Auto) % Baso % (Auto) % Reticulocyte % (Auto) (0.5-2.0) % Neut # (Auto) (1.4-6.5) K/uL Lymph # (Auto) (1.2-3.4) K/uL [place] # (Auto) (0.24-0.82) K/uL Eos # (Auto) (0-0.50) K/uL Baso # (Auto) (0-0.2) K/uL Reticulocyte # (0.02-0.10) 10^6/uL Immature Gran # (Auto) (0.00-0.02) K/uL Polychromasia Microcytosis Target Cells Ovalocytes APTT (21.0-31.0) Seconds PTT Ratio ABG pH (7.35-7.45) ABG pCO2 (35-46) mmHg ABG pO2 (80-95) mmHg ABG HCO3 (19-24) mmol/L ABG O2 Saturation (90-95) % ABG Base Excess (-9-1.8) mEq/L Jose Test (Pos) Oxygen Given Sodium (136-145) mmol/L Potassium (3.5-5.1) mmol/L Chloride (98-107) mmol/L Carbon Dioxide (21-32) mmol/L Anion Gap (3-11) BUN (6-23) mg/dl Creatinine (0.6-1.2) mg/dl Est Cr Clr Drug Dosing ml/min Est GFR ( Amer) ml/min Est GFR (Non-Af Amer) ml/min BUN/Creatinine Ratio (10-20) Glucose (70-99(Fasting)) mg/dl Calcium (8.5-10.1) mg/dl Magnesium (1.7-2.4) mg/dl Iron (35-150) mcg/dl Transferrin (200-360) mg/dl Ferritin (8-388) ng/ml Total Bilirubin (0.2-1.0) mg/dl AST (13-39) U/L ALT (7-52) U/L Alkaline Phosphatase (34-104) U/L Troponin I High Sens (0-14) pg/ml B-Natriuretic Peptide (0-100) pg/ml Total Protein (6.0-8.3) gm/dl Albumin (3.4-5.0) gm/dl Globulin (2.5-4.0) gm/dl Albumin/Globulin Ratio (0.9-2) Lipase (11-82) U/L Vitamin B12 692 (180-914) pg/ml TSH (0.300-4.500) uIu/ml Urine Color Yellow Urine Appearance Clear (Clear) Urine pH 6.0 (4.5-7.5) Ur Specific [place] 1.008 (1.000-1.030) Urine Protein Negative (Negative) Urine Glucose (UA) Negative (Negative) Urine Ketones Negative (Negative) Urine Blood Negative (Negative) Urine Nitrite Negative (Negative) Urine Bilirubin Negative (Negative) Urine Urobilinogen Negative (Negative) Ur Leukocyte Esterase 1+ H (Negative) Urine WBC (Auto) 5-10 H (0-5) /hpf Urine RBC (Auto) 0-4 (0-4) /hpf U Hyaline Cast (Auto) 1-5 (0-5) /lpf U Epithel Cells (Auto) 10-20 H (0-5) /lpf Urine Bacteria (Auto) Negative (Negative) SARS-CoV-2 (PCR) NEGATIVE (Negative) Influenza Type A (PCR) Negative (Neg) Influenza Type B (PCR) Negative (Neg) RSV (RT-PCR) Negative (Neg) Blood Type Antibody Screen 01/22/22 01/22/22 01/22/22 Range/Units 20:35 20:35 20:35 WBC (4.8-10.8) K/ul RBC (3.93-5.22) M/uL Hgb (12.0-16.0) g/dl Hct (34.1-44.9) % MCV (80.0-100.0) fL MCH (25.0-34.0) pg MCHC (32.0-36.0) g/dL RDW Std Deviation (36.4-46.3) fL RDW Coeff of Vanita (11.5-14.5) % Plt Count (130-400) K/uL MPV (9.4-12.3) fL Immature Gran % (Auto) % Neut % (Auto) % Lymph % (Auto) % [place] % (Auto) % Eos % (Auto) % Baso % (Auto) % Reticulocyte % (Auto) (0.5-2.0) % Neut # (Auto) (1.4-6.5) K/uL Lymph # (Auto) (1.2-3.4) K/uL [place] # (Auto) (0.24-0.82) K/uL Eos # (Auto) (0-0.50) K/uL Baso # (Auto) (0-0.2) K/uL Reticulocyte # (0.02-0.10) 10^6/uL Immature Gran # (Auto) (0.00-0.02) K/uL Polychromasia Microcytosis Target Cells Ovalocytes APTT (21.0-31.0) Seconds PTT Ratio ABG pH 7.43 (7.35-7.45) ABG pCO2 35 (35-46) mmHg ABG pO2 64 L (80-95) mmHg ABG HCO3 23 (19-24) mmol/L ABG O2 Saturation 95.7 H (90-95) % ABG Base Excess -0.6 (-9-1.8) mEq/L Jose Test Pos (Pos) Oxygen Given 4L Sodium (136-145) mmol/L Potassium (3.5-5.1) mmol/L Chloride (98-107) mmol/L Carbon Dioxide (21-32) mmol/L Anion Gap (3-11) BUN (6-23) mg/dl Creatinine (0.6-1.2) mg/dl Est Cr Clr Drug Dosing ml/min Est GFR ( Amer) ml/min Est GFR (Non-Af Amer) ml/min BUN/Creatinine Ratio (10-20) Glucose (70-99(Fasting)) mg/dl Calcium (8.5-10.1) mg/dl Magnesium (1.7-2.4) mg/dl Iron 12 L (35-150) mcg/dl Transferrin 365 H (200-360) mg/dl Ferritin 20.8 (8-388) ng/ml Total Bilirubin (0.2-1.0) mg/dl AST (13-39) U/L ALT (7-52) U/L Alkaline Phosphatase (34-104) U/L Troponin I High Sens 131.1 H* (0-14) pg/ml B-Natriuretic Peptide (0-100) pg/ml Total Protein (6.0-8.3) gm/dl Albumin (3.4-5.0) gm/dl Globulin (2.5-4.0) gm/dl Albumin/Globulin Ratio (0.9-2) Lipase (11-82) U/L Vitamin B12 (180-914) pg/ml TSH (0.300-4.500) uIu/ml Urine Color Urine Appearance (Clear) Urine pH (4.5-7.5) Ur Specific [place] (1.000-1.030) Urine Protein (Negative) Urine Glucose (UA) (Negative) Urine Ketones (Negative) Urine Blood (Negative) Urine Nitrite (Negative) Urine Bilirubin (Negative) Urine Urobilinogen (Negative) Ur Leukocyte Esterase (Negative) Urine WBC (Auto) (0-5) /hpf Urine RBC (Auto) (0-4) /hpf U Hyaline Cast (Auto) (0-5) /lpf U Epithel Cells (Auto) (0-5) /lpf Urine Bacteria (Auto) (Negative) SARS-CoV-2 (PCR) (Negative) Influenza Type A (PCR) (Neg) Influenza Type B (PCR) (Neg) RSV (RT-PCR) (Neg) Blood Type A Positive Antibody Screen NEGATIVE Imaging Data Radiologist's Impression: Chest X-Ray 01/22/22 18:06 XR chest 1V portable CLINICAL HISTORY: Cough. Shortness of breath. COMPARISON STUDY: Chest radiograph April 21, 2017. FINDINGS: There is no pneumothorax. There are small bilateral pleural effusions with bibasilar opacities. Moderate interstitial pulmonary edema is noted. Note is made of cardiomegaly. IMPRESSION: Cardiomegaly. Moderate interstitial pulmonary edema with small bilateral pleural effusions and associated bibasilar opacities. ACT 112: Negative or not required by law. Electronically signed by: Karson Goddard M.D. 01/22/2022 6:48 PM ECG Data Attestation: I personally reviewed and interpreted this ECG as follows: Indication: + SOB/dyspnea Rate (beats per minute): 101 Rhythm: + sinus tachycardia ECG Intervals/blocks: + Normal QRS and + Normal QT ECG [place]: + Normal ECG ST segments: + ST depression (I,II, avL) MDM Narrative An order was placed for continuous cardiac monitoring. The monitor shows a rate of _92__ with normal sinus__ rhythm. This is an 81-year-old female presents emergency department due to concern for worsening shortness of breath as well as URI symptoms over the last 4 days with known sick contact at home with her . Patient admits to prior heart problems but no follow-up. Patient has noted evolving lower extremity edema over the last several weeks. On bedside exam, patient with 3+ pitting edema bilaterally, rales noted bibasilar, and hypoxia. Patient denies any chest pain or overt shortness of breath. She was placed on oxygen via nasal cannula and saturations did improve. Labs drawn and sent, chest x-ray performed which does reveal pulmonary edema additionally. Patient given nitro and Lasix in the emergency room and case discussed with the hospitalist for additional evaluation and management. Troponin was elevated, I suspect this is secondary to the underlying congestive heart failure. I do not suspect PE. Impression & Plan Acute respiratory failure with hypoxia, CHF (congestive heart failure), Bilateral lower extremity edema, Elevated troponin Discharge Plan Visit Data Chief Complaint: Shortness of Breath/Dyspnea ED Provider: Caro Ortiz Discharge Problem: Acute respiratory failure with hypoxia, CHF (congestive heart failure), Bilateral lower extremity edema, Elevated troponin Patient Disposition: Admitted As Inpatient Discharge Instructions Interventions: ED Discharge Assessment Last Done: 01/22/22 22:06
[2022-01-22] MEDS ORDERED: NITROGLYCERIN 2% OINTMENT 30GM TUBE EXT SCH (18:15)
[2022-01-22 18:20] LABS: Basophils # (auto) 0.12 K/uL (0-0.2); Eosinophils # (auto) 0.24 K/uL (0-0.50); Eosinophils % (auto) 1.9 %; Immature Granulocytes # (auto) 0.03 K/uL (0.00-0.02); Immature Granulocytes % (auto) 0.2 %; Lymphocytes # (auto) 3.47 K/uL (1.2-3.4); Lymphocytes % (auto) 27.7 %; Mean Corpuscular Hemoglobin 20.6 pg (25.0-34.0); Mean Corpuscular Volume 68.6 fL (80.0-100.0); Monocytes # (auto) 1.37 K/uL (0.24-0.82); Monocytes % (auto) 10.9 %; Neutrophils # (auto) 7.31 K/uL (1.4-6.5); Neutrophils % (auto) 58.3 %; RDW Coefficient of Variation 22.9 % (11.5-14.5); RDW Standard Deviation 54.6 fL (36.4-46.3); Red Blood Count 4.37 M/uL (3.93-5.22); White Blood Count 12.54 K/ul (4.8-10.8)
[2022-01-22 18:30] LABS: Mean Platelet Volume 10.4 fL (9.4-12.3); Platelet Count 316 K/uL (130-400)
[2022-01-22 18:41] LABS: Microcytosis Present; Ovalocytes 1+; Polychromasia 1+; Target Cells 1+
[2022-01-22 18:49] LABS: Albumin Level 3.6 gm/dl (3.4-5.0); Calcium 9.2 mg/dl (8.5-10.1); Creatinine Clr Calc Pharmacy 77.7 ml/min; Est GFR (Non-African American) 84.6 ml/min; Globulin 3.6 gm/dl (2.5-4.0); Magnesium 1.5 mg/dl (1.7-2.4); Potassium 4.2 mmol/L (3.5-5.1); Total Protein 7.2 gm/dl (6.0-8.3)
--- NOTE | 2022-01-22 18:49 | XRay Report ---
XR chest 1V portable CLINICAL HISTORY: Cough. Shortness of breath. COMPARISON STUDY: Chest radiograph April 21, 2017. FINDINGS: There is no pneumothorax. There are small bilateral pleural effusions with bibasilar opacit ies. Moderate interstitial pulmonary edema is noted. Note is made of cardiomegaly. IMPRESSION: Cardiomegaly. Moderate interstitial pulmonary edema with small bilateral pleural effusio ns and associated bibasilar opacities. ACT 112: Negative or not required by law. Electronically signed by: Karson Goddard M.D. 01/22/2022 6:48 PM
[2022-01-22 18:53] LABS: Troponin I High Sensitivity 129.7 pg/ml (0-14)
[2022-01-22 18:59] LABS: Appearance Urine Clear (Clear); Bacteria Urine Automated Negative (Negative); Bilirubin Urine Negative (Negative); Blood Urine Negative (Negative); Color Urine Yellow; Glucose Urine UA Negative (Negative); Ketones Urine Negative (Negative); Leukocyte Esterase Urine 1+ (Negative); Nitrite Urine Negative (Negative); Protein Urine Negative (Negative); RBC Urine Automated 0-4 /hpf (0-4); Specific Gravity Urine 1.008 (1.000-1.030); Urobilinogen Urine Negative (Negative)
[2022-01-22] MEDS ORDERED: MAGNESIUM SULFATE / D5W 1 GM/100 ML BAG IV STA (19:08)
[2022-01-22 19:13] LABS: Influenza A virus by PCR Negative (Neg); Influenza B virus by PCR Negative (Neg); RSV by PCR Negative (Neg); SARS CoV2 RNA(COVID-19) InHosp NEGATIVE (Negative)
[2022-01-22] MEDS ORDERED: MAGNESIUM SULFATE / D5W 1 GM/100 ML BAG IV ONE (19:27)
[2022-01-22 20:03] LABS: Reticulocyte % 2.3 % (0.5-2.0); Reticulocytes # 0.1 10^6/uL (0.02-0.10)
[2022-01-22] MEDS ORDERED: DOXYCYCLINE HYCLATE 100 MG in DEXTROSE 5% 100 ML IV STA (20:38)
[2022-01-22] MEDS ORDERED: IPRATROPIUM BROMIDE NEB SOLN 0.02% 2.5 ML VIAL INH STA (20:38)
[2022-01-22] MEDS ORDERED: methylPREDNISolone 20 MG in SYRINGE 0 ML IV STA (20:38)
[2022-01-22] MEDS ORDERED: XOPENEX/ATROVENT 1.25mg/0.5MG NEB COMBO NEB STA (20:38)
[2022-01-22] MEDS ORDERED: LEVALBUTEROL 1.25MG/0.5ML NEB INH STA (20:38)
[2022-01-22 20:41] LABS: Partial Thromboplastin Time 26.9 Seconds (21.0-31.0)
--- NOTE | 2022-01-22 20:59 | History & Physical Report ---
Date of Service January 22, 2022 Assessment & Plan (1) Acute respiratory failure with hypoxia: Plan: Multifactorial: Complicated bronchitis Acute CHF possible precipitants include viral myocarditis, stress-induced cardiomyopathy with recent family Troponin elevation secondary to illness hx CAD status post stent hypertension, Slightly elevated hyperlipidemia, on statin Rx DM2 insulin requiring, patient hypoglycemic at the ER, well-controlled as of recent outpatient hemoglobin A1c of 6.19 August 2021 GERD, stable on regimen primary hyperparathyroidism, stable on Cinacalcet, patient refused surgery as per outpatient [facility] Endocrinology note from 2017 New onset anemia, ? Dilutional from CHF, FOBT done at the ER was negative past tobacco abuse PCU Baseline ABG Supplemental O2 Doxycycline, nebs; steroid 1 dose given for spasm causing hypoxemia Diuretic Rx Strict I/Os, daily weights, CHF education Follow troponin Aspirin for secondary CAD prevention TTE, Cardiology consult RE CHF (Patient known to Dr. Bearden.) Initiate low-dose beta-saul Anemia work-up, transfuse PRBC if hemoglobin less than 8 and or for symptomatic anemia Basal bolus insulin, ISS BG goal 1 10-1 40, carb count coverage, update hemoglobin A1c DVT prophylaxis. Lovenox subcu DNR Total critical care time was 45 minutes. Text document was generated using [employer] voice recognition software. It may contain grammatical or spelling errors. Kindly contact undersigned for clarification of any documentation item in question. History of Present Illness Chief Complaint: Congestion, shortness of breath Primary Care Provider: Alexy Al MD History obtained from patient and records. Medical history significant for CAD status post stent (1994 as per patient), hypertension, hyperlipidemia, DM2 insulin requiring, GERD, primary hyperparathyroidism, past tobacco abuse. Patient has history of CAD status post stent at a tertiary hospital she cannot remember in 1994. Has not seen her local head of partner development since 1994. Patient stopped aspirin medication due to epistaxis. Last confinement April 2017 for traumatic right hip pain. 1 week history of congestion symptoms, cough productive of junky yellow sputum. Chest pain. Fever, no chills. was sick as well. Not sure about other sick contacts as patient was at [facility] last week to be with her daughter who had subsequently . Patient completed COVID-19 vaccination. No retention and leg swelling noted to be worsening. No belly pain. Denies recent black or bloody stools. Patient seen at PCPs office yesterday. O2 sats noted to be 80s. Patient brought to ER for evaluation by ambulance. Lasix given for CHF. 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 Allergies Allergy/AdvReac Type Severity Reaction Status Date / Time No Known Allergies Allergy Unverified 01/22/22 20:03 Home Medications Medication Instructions Recorded Confirmed Type alendronate 70 mg tablet 70 mg PO WK 01/22/22 01/22/22 History amlodipine 5 mg tablet 5 mg PO QAM 01/22/22 01/22/22 History biotin 1 mg tablet 1 mg PO TID 01/22/22 01/22/22 History cinacalcet 30 mg tablet 30 mg PO DAILY 01/22/22 01/22/22 History glucosamine-chondroitin 250 mg-200 1 tab PO DAILY 01/22/22 01/22/22 History mg tablet (Osteo Bi-Flex) insulin human U-100 NPH-regulr 55 unit subcut QPM 01/22/22 01/22/22 History 70-30 mix 100 unit/mL subcutaneous susp (Novolin 70/30 U-100 Insulin) insulin human U-100 NPH-regulr 75 unit subcut QAM 01/22/22 01/22/22 History 70-30 mix 100 unit/mL subcutaneous susp (Novolin 70/30 U-100 Insulin) losartan 25 mg tablet 25 mg PO DAILY 01/22/22 01/22/22 History metformin 1,000 mg tablet 1,000 mg PO BID 01/22/22 01/22/22 History njytnqbzwfbs-barmvggk-kypeug tablet 1 tab PO DAILY 01/22/22 01/22/22 History omeprazole 20 mg capsule,delayed 20 mg PO DAILY 01/22/22 01/22/22 History release potassium gluconate 595 mg (99 mg) 595 mg PO DAILY 01/22/22 01/22/22 History tablet simvastatin 10 mg tablet 10 mg PO DAILY 01/22/22 01/22/22 History vitamin B complex 1 tab PO DAILY 01/22/22 01/22/22 History Past Med/Surg History Social History Smoking Status: Former smoker Smoking End Date: 2006; Hx Alcohol Use: Yes Alcohol type: beer Hx Substance Use: No Preferred Language: Kinyarwanda Communication Ability: Effective 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 Required: No Beliefs That Will Affect Care: None Current Living Situation: Spouse Other Information That Helps Us Care for You: No Feels Safe at Home: Yes Safety Concerns: Feels Safe At This Time Assistive Devices: Walker Review of Systems Review of Systems: As per HPI, all other systems reviewed and negative Physical Exam Physical Exam: GENERAL: Pleasant, obese, minimal respiratory distress SKIN: Pallor, warm HEENT: Bespectacled, pale palpebral conjunctivae, no ptosis, dry buccal mucosa, nasal cannula in place NECK : Supple, short neck, no tenderness CHEST : Decreased breath sounds, expiratory wheezes, bibasilar rales, no tenderness HEART : Tachycardic, diminished S1-S2 ABDOMEN: Some distention, nontender RECTAL : Intact sphincter, brown stool (FOBT negative) EXTREMITIES : Minimal LE swelling, no LE tenderness, no other conspicuous deformities noted NEUROLOGIC : Coherent, no facial asymmetry, no other gross focality Results & Data Results & Data ([facility]) Vital Signs (Past 12 Hours) Vital Signs Temp Pulse Resp BP Pulse Ox O2 Del Method O2 Flow Rate 01/22/22 18:44 Nasal Cannula 4 01/22/22 18:43 24 86 L Nasal Cannula 3 01/22/22 18:04 98 Nasal Cannula 3 01/22/22 17:53 98 Nasal Cannula 3 01/22/22 17:53 36.6 C 100 H 22 121/86 88 L Room Air Laboratory Results Laboratory Results WBC 12.54 K/ul (4.8-10.8) H 01/22/22 17:55 RBC 4.37 M/uL (3.93-5.22) 01/22/22 17:55 Hgb 9.0 g/dl (12.0-16.0) L 01/22/22 17:55 Hct 30.0 % (34.1-44.9) L 01/22/22 17:55 MCV 68.6 fL (80.0-100.0) L 01/22/22 17:55 MCH 20.6 pg (25.0-34.0) L 01/22/22 17:55 MCHC 30.0 g/dL (32.0-36.0) L 01/22/22 17:55 RDW Std Deviation 54.6 fL (36.4-46.3) H 01/22/22 17:55 RDW Coeff of Vanita 22.9 % (11.5-14.5) H 01/22/22 17:55 Plt Count 316 K/uL (130-400) 01/22/22 17:55 MPV 10.4 fL (9.4-12.3) 01/22/22 17:55 Immature Gran % (Auto) 0.2 % 01/22/22 17:55 Neut % (Auto) 58.3 % 01/22/22 17:55 Lymph % (Auto) 27.7 % 01/22/22 17:55 [place] % (Auto) 10.9 % 01/22/22 17:55 Eos % (Auto) 1.9 % 01/22/22 17:55 Baso % (Auto) 1.0 % 01/22/22 17: Reticulocyte % (Auto) 2.3 % (0.5-2.0) H 01/22/22 17:55 Neut # (Auto) 7.31 K/uL (1.4-6.5) H 01/22/22 17:55 Lymph # (Auto) 3.47 K/uL (1.2-3.4) H 01/22/22 17:55 [place] # (Auto) 1.37 K/uL (0.24-0.82) H 01/22/22 17:55 Eos # (Auto) 0.24 K/uL (0-0.50) 01/22/22 17: Baso # (Auto) 0.12 K/uL (0-0.2) 01/22/22 17:55 Reticulocyte # 0.10 10^6/uL (0.02-0.10) 01/22/22 17:55 Immature Gran # (Auto) 0.03 K/uL (0.00-0.02) H 01/22/22 17:55 Polychromasia 1+ 01/22/22 17:55 Microcytosis Present 01/22/22 17:55 Target Cells 1+ 01/22/22 17:55 Ovalocytes 1+ 01/22/22 17:55 APTT 26.9 Seconds (21.0-31.0) 01/22/22 17:55 PTT Ratio 1.0 01/22/22 17:55 Sodium 139 mmol/L (136-145) 01/22/22 17:55 Potassium 4.2 mmol/L (3.5-5.1) 01/22/22 17:55 Chloride 105 mmol/L (98-107) 01/22/22 17:55 Carbon Dioxide 23 mmol/L (21-32) 01/22/22 17:55 Anion Gap 11 (3-11) 01/22/22 17:55 BUN 13 mg/dl (6-23) 01/22/22 17:55 Creatinine 0.62 mg/dl (0.6-1.2) 01/22/22 17:55 Est Cr Clr Drug Dosing 77.7 ml/min 01/22/22 17:55 Est GFR ( Amer) 98.0 ml/min 01/22/22 17:55 Est GFR (Non-Af Amer) 84.6 ml/min 01/22/22 17:55 BUN/Creatinine Ratio 21.0 (10-20) H 01/22/22 17:55 Glucose 65 mg/dl (70-99(Fasting)) L 01/22/22 17:55 Calcium 9.2 mg/dl (8.5-10.1) 01/22/22 17:55 Magnesium 1.5 mg/dl (1.7-2.4) L 01/22/22 17:55 Total Bilirubin 1.0 mg/dl (0.2-1.0) 01/22/22 17:55 AST 26 U/L (13-39) 01/22/22 17:55 ALT 17 U/L (7-52) 01/22/22 17:55 Alkaline Phosphatase 51 U/L (34-104) 01/22/22 17:55 Troponin I High Sens 129.7 pg/ml (0-14) H* 01/22/22 17:55 B-Natriuretic Peptide 142 pg/ml (0-100) H 01/22/22 17:55 Total Protein 7.2 gm/dl (6.0-8.3) 01/22/22 17:55 Albumin 3.6 gm/dl (3.4-5.0) 01/22/22 17:55 Globulin 3.6 gm/dl (2.5-4.0) 01/22/22 17:55 Albumin/Globulin Ratio 1.0 (0.9-2) 01/22/22 17:55 Lipase 18 U/L (11-82) 01/22/22 17:55 TSH 1.187 uIu/ml (0.300-4.500) 01/22/22 17:55 Urine Color Yellow 01/22/22 18:45 Urine Appearance Clear (Clear) 01/22/22 18:45 Urine pH 6.0 (4.5-7.5) 01/22/22 18:45 Ur Specific [place] 1.008 (1.000-1.030) 01/22/22 18:45 Urine Protein Negative (Negative) 01/22/22 18:45 Urine Glucose (UA) Negative (Negative) 01/22/22 18:45 Urine Ketones Negative (Negative) 01/22/22 18:45 Urine Blood Negative (Negative) 01/22/22 18:45 Urine Nitrite Negative (Negative) 01/22/22 18:45 Urine Bilirubin Negative (Negative) 01/22/22 18:45 Urine Urobilinogen Negative (Negative) 01/22/22 18:45 Ur Leukocyte Esterase 1+ (Negative) H 01/22/22 18:45 Urine WBC (Auto) 5-10 /hpf (0-5) H 01/22/22 18:45 Urine RBC (Auto) 0-4 /hpf (0-4) 01/22/22 18:45 U Hyaline Cast (Auto) 1-5 /lpf (0-5) 01/22/22 18:45 U Epithel Cells (Auto) 10-20 /lpf (0-5) H 01/22/22 18:45 Urine Bacteria (Auto) Negative (Negative) 01/22/22 18:45 SARS-CoV-2 (PCR) NEGATIVE (Negative) 01/22/22 18:30 Influenza Type A (PCR) Negative (Neg) 01/22/22 18:30 Influenza Type B (PCR) Negative (Neg) 01/22/22 18:30 RSV (RT-PCR) Negative (Neg) 01/22/22 18:30 Impressions Chest X-Ray 01/22/22 18:06 XR chest 1V portable CLINICAL HISTORY: Cough. Shortness of breath. COMPARISON STUDY: Chest radiograph April 21, 2017. FINDINGS: There is no pneumothorax. There are small bilateral pleural effusions with bibasilar opacities. Moderate interstitial pulmonary edema is noted. Note is made of cardiomegaly. IMPRESSION: Cardiomegaly. Moderate interstitial pulmonary edema with small bilateral pleural effusions and associated bibasilar opacities. ACT 112: Negative or not required by law. Electronically signed by: Karson Goddard M.D. 01/22/2022 6:48 PM Diagnostic Findings EKG as per my interpretation : Rate 105, sinus tachycardia, normal axis, T wave abnormalities inferolateral leads
[2022-01-22 21:06] LABS: Base Excess ABG -0.6 mEq/L (-9-1.8); HCO3 ABG 23 mmol/L (19-24); Oxygen Saturation ABG 95.7 % (90-95); PCO2 ABG 35 mmHg (35-46); PO2 ABG 64 mmHg (80-95); pH ABG 7.43 (7.35-7.45)
[2022-01-22 21:07] LABS: Allen Test Pos (Pos)
[2022-01-22 21:41] LABS: Troponin I High Sensitivity 131.1 pg/ml (0-14)
[2022-01-22 21:46] LABS: Ferritin 20.8 ng/ml (8-388)
[2022-01-22] MEDS ORDERED: DEXTROSE 50% 50 ML SYRINGE IV PRN (22:32)
[2022-01-22] MEDS ORDERED: GLUCOSE 10 TAB/TUBE PO PRN (22:32)
[2022-01-22] MEDS ORDERED: PROMETHAZINE HCL 12.5 MG in SODIUM CHLORIDE 0.9% 50 ML IV PRN (22:32)
[2022-01-22] MEDS ORDERED: GLUCAGON FOR INJ 1 MG VIAL SQ PRN (22:32)
[2022-01-22] MEDS ORDERED: CARBOHYDRATES FOR HYPOGLYCEMIA PO PRN (22:32)
[2022-01-22] MEDS ORDERED: GLUCOSE 40% GEL 15 GM TUBE PO PRN (22:32)
[2022-01-22] MEDS: INSULIN ASPART PER UNIT SC SCH (22:52)
[2022-01-22] MEDS: ACETAMINOPHEN 325 MG TAB PO PRN (23:58)
[2022-01-23] MEDS ORDERED: METOPROLOL TARTRATE 25 MG TAB PO STA (00:12)
[2022-01-23] MEDS ORDERED: LANTUS PER UNIT CHARGE SQ SCH (00:15)
[2022-01-23] MEDS: traMADol HCL 50 MG TABLET PO PRN ×3 (00:48→19:02)
[2022-01-23 05:50] LABS: Basophils # (auto) 0.04 K/uL (0-0.2); Basophils % (auto) 0.5 %; Hematocrit (blood only) 27.3 % (34.1-44.9); Hemoglobin 8.3 g/dl (12.0-16.0); Immature Granulocytes # (auto) 0.02 K/uL (0.00-0.02); Immature Granulocytes % (auto) 0.3 %; Lymphocytes # (auto) 0.92 K/uL (1.2-3.4); Lymphocytes % (auto) 11.8 %; Mean Corpuscular Hemoglobin 20.9 pg (25.0-34.0); Mean Corpuscular Hgb Conc 30.4 g/dL (32.0-36.0); Mean Corpuscular Volume 68.8 fL (80.0-100.0); Monocytes # (auto) 0.47 K/uL (0.24-0.82); Neutrophils # (auto) 6.34 K/uL (1.4-6.5); Neutrophils % (auto) 81.4 %; RDW Coefficient of Variation 22.4 % (11.5-14.5); RDW Standard Deviation 53.7 fL (36.4-46.3); Red Blood Count 3.97 M/uL (3.93-5.22); White Blood Count 7.79 K/ul (4.8-10.8)
[2022-01-23 06:09] LABS: BUN Creatinine Ratio 21.7 (10-20); Calcium 8.9 mg/dl (8.5-10.1); Chol HDL Ratio 2.3 (0-5); Creatinine Clr Calc Pharmacy 67.3 ml/min; Est GFR (African American) 94.6 ml/min; Est GFR (Non-African American) 81.6 ml/min; Magnesium 1.7 mg/dl (1.7-2.4); Potassium 4.6 mmol/L (3.5-5.1)
[2022-01-23 06:24] LABS: Platelet Count 284 K/uL (130-400)
[2022-01-23 06:25] LABS: Anisocytosis Present; Microcytosis Present; Schistocytes 1+; Target Cells 1+
[2022-01-23] MEDS ORDERED: PHARMACY GLYCEMIC MGMT CONSULT PRN (07:53)
[2022-01-23] MEDS: ENOXAPARIN INJ 40 MG/0.4 ML SYR SQ SCH (08:07)
[2022-01-23] MEDS: ASPIRIN 81 MG ECTAB PO SCH (08:07)
[2022-01-23] MEDS: MULTIVITAMIN TAB PO SCH (08:08)
[2022-01-23] MEDS: amLODIPine BESYLATE 5 MG TAB PO SCH (08:08)
[2022-01-23] MEDS: PANTOprazole 40 MG TAB PO SCH (08:08)
[2022-01-23] MEDS: DOXYCYCLINE HYCLATE 100 MG CAP PO SCH ×2 (08:08→20:10)
[2022-01-23] MEDS: SIMVASTATIN 10 MG TAB PO SCH (08:08)
[2022-01-23] MEDS: METOPROLOL TARTRATE 25 MG TAB PO SCH ×2 (08:08→20:09)
[2022-01-23] MEDS: VITAMIN B COMPLEX TAB PO SCH (08:08)
[2022-01-23] MEDS: POTASSIUM CHLORIDE CRTAB 20 MEQ TABCR PO SCH (08:09)
[2022-01-23] MEDS: LOSARTAN POTASSIUM 25 MG TAB PO SCH (08:09)
[2022-01-23] MEDS: FUROSEMIDE 40 MG/4 ML VIAL IV SCH ×2 (08:09→17:12)
[2022-01-23] MEDS: cefTRIAXone SODIUM 2,000 MG in DEXTROSE 5% 50 ML IV SCH (08:24)
--- NOTE | 2022-01-23 08:55 | XRay Report ---
XR chest 1V portable HISTORY: 81 years-old Female ff up chf, pneumonia acute shortness of breath COMPARISON: Chest radiograph 01/22/2022 TECHNIQUE: AP view of the chest. FINDINGS: Cardiac silhouette is enlarged. Pulmonary vascular congestion with interstitial coarsening. Atheroscl erosis of the aorta. No pneumothorax. Small pleural effusions with bibasilar opacities persistent int erstitial coarsening. Right shoulder rotator cuff calcific tendinosis. Degenerative changes of the sh oulders and spine. IMPRESSION: 1. Cardiomegaly with unchanged pulmonary edema. 2. Stable small pleural effusions with bibasilar opacities. ACT 112: Negative or not required by law. The above report was generated using voice recognition software. It may contain grammatical, syntax o r spelling errors. Electronically signed by: Abhay Smart M.D. 01/23/2022 8:54 AM
[2022-01-23] MEDS: INSULIN ASPART PER UNIT SC SCH ×5 (09:00→23:37)
[2022-01-23] MEDS ORDERED: LANTUS PER UNIT CHARGE SQ ONE ×2 (09:00→11:45)
--- NOTE | 2022-01-23 09:26 | Pharmacy Report ---
Pharmacy Glycemic Short Note 2 - Date of Service January 23, 2022 - Glycemic Short BSG Results (Last 24 hours): 01/22/22 01/22/22 01/22/22 17:55 22:04 22:45 Glucose 65 L POC Glucose 199 H 223 H 01/23/22 01/23/22 01/23/22 05:36 07:29 07:30 Glucose 231 H POC Glucose 265 H 283 H OUTPATIENT ANTIDIABETIC REGIMEN: * Novolin 70/30 - 75 units SC qAM, 55 units SC qPM * Metformin 1000 mg PO BIDM HbA1c pending ASSESSMENT: * LP is an 81 year old female admitted last evening (01/22) for acute respiratory failure (likely multifactorial) * Pharmacy consulted for glycemic management this morning, due to elevated BSG (283 mg/dL) * Patient uses 70/30 insulin at home, will use long-acting basal insulin in place of NPH for now * Initially will start with weight-based Novolog parameters, but may need to tighten based on BSG trends given significant outpatient insulin doses * Lunch BSG also elevated at 291 mg/dL - will give additional basal dose now and tighten Novolog further PLAN FOR INPATIENT GLYCEMIC CONTROL: * Hold outpatient oral diabetes medications * Basal insulin * Lantus 25 units SC x 1 this morning, 25 units SC x 1 with lunch * Bolus insulin * NovoLog per scale ACHS or Q6hrs while NPO * Goal Range: Low 110 mg/dL - High 140 mg/dL * Correction Factor: 15 mg/dL/unit * Nutritional / Prandial insulin per carb ratio of 1 unit per 4 grams CHO consumed * ,04 checks this evening with same parameters
--- NOTE | 2022-01-23 10:41 | Hospitalist Progress Note ---
Date of Service January 23, 2022 Delayed entry Date of service as above Assessment & Plan (1) Acute respiratory failure with hypoxia: Plan: Multifactorial: Bilateral Pneumonia Acute CHF -- remains on 4 L NC -- add Ceftri to Doxy Nebs q6h Mucinex IS -- echo: pending Lasix 40mg IV bid Metoprolol 12.5mg BID started [employer]ough[employer] consulted Troponin elevation secondary to illness -- No chest pain Continue to trend hx CAD status post stent hypertension hyperlipidemia, on statin Rx DM2 insulin requiring, p A1c of 6.19 August 2021 GERD, stable on regimen primary hyperparathyroidism, stable on Cinacalcet, patient refused surgery as pe r outpatient [facility] Endocrinology note from 2017 New onset anemia -we will monitor past tobacco abuse DVT prophylaxis. Lovenox subcu DNR Disposition Pending Will order PT and OT evaluation once stable Admission and Anticipated Discharge Date Admission Date: January 22, 2022 Subjective ff up for CHF exacerbation, pneumonia, etc seen resting in bed, comfortable on 4L NC states she feels improved compared to yesterday breathing feels easier, less cough no chest pain, dyspnea, palpitations, dizziness no abdominal pain nausea, vomiting no other symptoms Review of Systems Review of Systems: all noted and negative except for above Physical Exam Physical Exam: General- oriented x 3, not in distress, speaks in sentences with no effort or accessory muscle use Eyes- anicteric Neck- no JVD Lungs- mild rales at the bases, no wheezing good air entry BL Heart- normal rate, regular rhythm; no murmurs Abdomen- normal bowel sounds, nondistended, soft, nontender Extremities- mild pretibial edema, no calf tenderness Neuro- alert, oriented x 3; no gross focal neurologic deficits Skin- warm & dry Results & Data Results & Data ([facility]) Vital Signs (Past 12 Hours) Vital Signs Temp Pulse Resp BP Pulse Ox Pulse Ox O2 Del Method 01/23/22 08:00 91 01/23/22 08:14 36.9 C 92 H 22 128/49 L 93 Nasal Cannula 01/23/22 04:08 37.1 C 91 H 18 126/50 L 91 Nasal Cannula 01/22/22 22:35 Nasal Cannula O2 Del Method O2 Flow Rate O2 Flow Rate 01/23/22 08:00 Nasal Cannula 4 01/23/22 08:14 4 01/23/22 04:08 4 01/22/22 22:35 4 all noted and reviewed including below
[2022-01-23] MEDS: ACETAMINOPHEN 325 MG TAB PO PRN (10:45)
[2022-01-23] MEDS: CINACALCET HCL 30 MG TAB PO SCH (10:45)
[2022-01-23] MEDS ORDERED: XOPENEX/ATROVENT 1.25mg/0.5MG NEB COMBO NEB SCH (10:45)
[2022-01-23] MEDS ORDERED: LEVALBUTEROL HCL 1.25 MG/3 ML NEB ONE (11:08)
[2022-01-23] MEDS: IPRATROPIUM BROMIDE NEB SOLN 0.02% 2.5 ML VIAL INH SCH ×2 (11:11→19:06)
[2022-01-23] MEDS: LEVALBUTEROL 1.25MG/0.5ML NEB INH SCH ×2 (11:12→19:07)
--- NOTE | 2022-01-23 11:36 | Cardiology Consultation ---
Date of Consultation January 23, 2022 Assessment & Plan (1) Acute heart failure with preserved ejection fraction (HFpEF): (2) Mitral stenosis: As noted, on echocardiogram the patient does have some degree of mitral stenosis, calculated mean gradient 12 mmHg, but it appears to be on the basis of mitral annular calcification rather than rheumatic heart disease. Recommend medication therapy. Agree with current dose of furosemide 40 mg IV twice daily to start. The patient has a mild, but flat elevation in her high-sensitivity troponin, which I think is consistent with her volume overload. Chest x-ray images reviewed independently, also consistent with congestive heart failure per my interpretation. Microcytic anemia noted, MCV 68, hemoglobin 8.3 this morning. No recent outpatient measurement for comparison, but down from 14 in 2017 per hospital record. Agree with cautious subcutaneous Lovenox, 40 mg subcu daily for DVT prophylaxis. Continue treatment with metoprolol, amlodipine, losartan, simvastatin. Superimposed bronchitis also possibility, agree with empiric vancomycin, Rocephin as already ordered by the hospitalist service. History of Present Illness Attending Physician: Santi Madden MD History of Present Illness Martine Russell is an 81 year old female seen in cardiology consultation per the request of Dr Palmer for the evaluation of shortness of breath, lower extremity edema, concern for congestive heart failure. The patient's primary care provider is Dr. Al of [facility] in [place]. She does not follow regularly with a tooling specialist having followed with Dr Bearden for a brief prior over 20 years ago. Patient describes having had a history of a coronary stent that she believes to place in 1994. She does not recall what hospital this may have been in. Patient is a former cigarette smoker having smoked for over 40 years, and quit in 2006. She denies a history of chronic shortness of breath. She presented to the emergency department yesterday 01/22/2022 with complaints of progressive shortness of breath and coughing x1 week, acutely worse over an interval of 4 days, with associated lower extremity edema. She states that she has been under quite amount of stress. He has 46-year-old daughter recently due to complications of alcohol dependence and liver disease per her description and a had a celebration of life event for her 2 evenings ago on 01/21/2022. She was hypoxic on presentation with pulse oximetry in the range of 86 to 88% on arrival. Currently, her pulse ox is sitting at 89 to 90% on 4 L nasal cannula. Chest x-ray performed upon arrival revealed enlarged cardiac silhouette, with interstitial edema, and small pleural effusions. Patient received a dose of furosemide 40 mg last evening just after 6 PM. She notes interval improvement in her lower extremity edema. She denies any recent esther chest tightness or angina. Allergies Allergy/AdvReac Type Severity Reaction Status Date / Time No Known Allergies Allergy Unverified 01/22/22 20:03 Home Medications Medication Instructions Recorded Confirmed Type alendronate 70 mg tablet 70 mg PO WK 01/22/22 01/22/22 History amlodipine 5 mg tablet 5 mg PO QAM 01/22/22 01/22/22 History biotin 1 mg tablet 1 mg PO TID 01/22/22 01/22/22 History cinacalcet 30 mg tablet 30 mg PO DAILY 01/22/22 01/22/22 History glucosamine-chondroitin 250 mg-200 1 tab PO DAILY 01/22/22 01/22/22 History mg tablet (Osteo Bi-Flex) insulin human U-100 NPH-regulr 55 unit subcut QPM 01/22/22 01/22/22 History 70-30 mix 100 unit/mL subcutaneous susp (Novolin 70/30 U-100 Insulin) insulin human U-100 NPH-regulr 75 unit subcut QAM 01/22/22 01/22/22 History 70-30 mix 100 unit/mL subcutaneous susp (Novolin 70/30 U-100 Insulin) losartan 25 mg tablet 25 mg PO DAILY 01/22/22 01/22/22 History metformin 1,000 mg tablet 1,000 mg PO BID 01/22/22 01/22/22 History lmyqvywqzlxq-teyavguz-softef tablet 1 tab PO DAILY 01/22/22 01/22/22 History omeprazole 20 mg capsule,delayed 20 mg PO DAILY 01/22/22 01/22/22 History release potassium gluconate 595 mg (99 mg) 595 mg PO DAILY 01/22/22 01/22/22 History tablet simvastatin 10 mg tablet 10 mg PO DAILY 01/22/22 01/22/22 History vitamin B complex 1 tab PO DAILY 01/22/22 01/22/22 History Patient History Social History Smoking Status: Former smoker Smoking End Date: 2006; Hx Alcohol Use: Yes Alcohol type: beer Hx Substance Use: No Preferred Language: Cypriot Communication Ability: Effective Supervisory It Specialist Required: No Beliefs That Will Affect Care: None Current Living Situation: Spouse Other Information That Helps Us Care for You: No Feels Safe at Home: Yes Safety Concerns: Feels Safe At This Time Assistive Devices: Walker Review of Systems Review of Systems: All systems reviewed & are unremarkable except as noted in HPI & below Physical Exam Physical Exam: Temp Pulse Resp BP Pulse Ox O2 Del Method O2 Flow Rate 36.9 C 82 16 128/49 L 93 4 01/23/22 08:14 01/23/22 11:12 01/23/22 11:12 01/23/22 08:14 01/23/22 11:12 01/23/22 11:12 01/23/22 11:12 Constitutional: WD/WN, vitals as above Respiratory: Mildly reduced breath sounds the bases Cardiovascular: Rate/Rhythm: regular rate Heart Sounds: no murmur Extremities: + edema (1+ lower extremity edema) Gastrointestinal (Abdomen): normal bowel sounds, soft, nontender, no hepatosplenomegaly Neurologic: PERRL, EOMI, accommodation nl, no face palsy, no dysarthria Results & Data ([facility]) Vital Signs (Past 12 Hours) Vital Signs Temp Pulse Resp BP Pulse Ox Pulse Ox O2 Del Method 01/23/22 11:12 82 16 93 Nasal Cannula 01/23/22 11:11 Nasal Cannula 01/23/22 08:00 91 01/23/22 08:14 36.9 C 92 H 22 128/49 L 93 Nasal Cannula 01/23/22 04:08 37.1 C 91 H 18 126/50 L 91 Nasal Cannula O2 Del Method O2 Flow Rate O2 Flow Rate 01/23/22 11:12 4 01/23/22 11:11 4 01/23/22 08:00 Nasal Cannula 4 01/23/22 08:14 4 01/23/22 04:08 4 Laboratory Results Cardiac Enzymes 01/22/22 01/22/22 01/22/22 Range/Units 17:55 17:55 20:35 AST 26 (13-39) U/L Troponin I High Sens 129.7 H* 131.1 H* (0-14) pg/ml B-Natriuretic Peptide 142 H (0-100) pg/ml 01/23/22 Range/Units 05:36 AST (13-39) U/L Troponin I High Sens 110.9 H* (0-14) pg/ml B-Natriuretic Peptide (0-100) pg/ml Coagulation 01/22/22 01/22/22 Range/Units 17:55 17:55 APTT 26.9 (21.0-31.0) Seconds B-Natriuretic Peptide 142 H (0-100) pg/ml Lipids 01/23/22 Range/Units 05:36 Triglycerides 71 (0-150) mg/dl Cholesterol 102 (0-200) mg/dl HDL Cholesterol 44 mg/dl Cholesterol/HDL Ratio 2.3 (0-5) CBC 01/22/22 01/23/22 Range/Units 17:55 05:36 WBC 12.54 H 7.79 (4.8-10.8) K/ul RBC 4.37 3.97 (3.93-5.22) M/uL Hgb 9.0 L 8.3 L (12.0-16.0) g/dl Hct 30.0 L 27.3 L (34.1-44.9) % Plt Count 316 284 (130-400) K/uL Neut # (Auto) 7.31 H 6.34 (1.4-6.5) K/uL Lymph # (Auto) 3.47 H 0.92 L (1.2-3.4) K/uL Waller # (Auto) 1.37 H 0.47 (0.24-0.82) K/uL Eos # (Auto) 0.24 0.00 (0-0.50) K/uL Baso # (Auto) 0.12 0.04 (0-0.2) K/uL Comprehensive Metabolic Panel 01/22/22 01/23/22 Range/Units 17:55 05:36 Sodium 139 135 L (136-145) mmol/L Potassium 4.2 4.6 (3.5-5.1) mmol/L Chloride 105 102 (98-107) mmol/L Carbon Dioxide 23 27 (21-32) mmol/L BUN 13 15 (6-23) mg/dl Creatinine 0.62 0.69 (0.6-1.2) mg/dl Glucose 65 L 231 H (70-99(Fasting)) mg/dl Calcium 9.2 8.9 (8.5-10.1) mg/dl AST 26 (13-39) U/L ALT 17 (7-52) U/L Alkaline Phosphatase 51 (34-104) U/L Total Protein 7.2 (6.0-8.3) gm/dl Albumin 3.6 (3.4-5.0) gm/dl Intake and Output 01/22/22 01/23/22 01/23/22 22:59 06:59 14:59 Intake Total 100 / 950 850 / 950 70 / 70 Output Total 300 / 300 700 / 700 Balance 100 / 650 550 / 650 -630 / -630 Intake: IV 100 / 310 210 / 310 70 / 70 Doxycycline Hyclate 100 mg In 110 / 110 Dextrose 5% 100 ml @ 50 mls/hr IV NOW STA Rx#:[id number] Magnesium Sulfate / D5w 1 gm In 100 / 200 100 / 200 100 ml @ 50 mls/hr IV ONE ONE Rx#:[id number] cefTRIAXone SODIUM 2,000 mg In 70 / 70 Dextrose 5% 50 ml @ 100 mls/hr IV DAILY [facility] Rx#:[id number] Oral 640 / 640 Output: Urine 300 / 300 700 / 700 Other: # Unmeasured Voids 1 Weight 88.5 kg 88.1 kg Weight Measurement Method Built in Bedscale Standing Scale Diagnostic Findings EKG performed 01/22/2022 revealed sinus tachycardia 101 bpm, nonspecific T wave flattening, poor R wave progression anterior precordial leads. Tracing is relatively unchanged compared to outpatient tracing performed in May, per my personal interpretation. Echocardiogram performed this morning 01/23/2022 interpreted independently: Normal left ventricular myocardial thickness, normal LV wall motion, LVEF 60%, mild left atrial dilatation, severe mitral annular calcification, with resultant mitral stenosis, at least mild in severity, mean gradient 12 mmHg with a heart rate of 90 bpm, moderate pulmonary hypertension present the pulmonary artery systolic pressure is estimated at 50 mmHg. No prior recent states available for comparison.
--- NOTE | 2022-01-23 15:03 | Electrocardiogram Report ---
Test Reason : Blood Pressure : / mmHG Vent. Rate : 101 BPM Atrial Rate : 101 BPM P-R Int : 174 ms QRS Dur : 084 ms QT Int : 328 ms P-R-T Axes : 021 039 160 degrees QTc Int : 425 ms Poor data quality, interpretation may be adversely affected Sinus tachycardia Possible Left atrial enlargement Poor R wave progression, consider anterior DC vs. lead placement vs. LVH Abnormal ECG When compared with ECG of 21-APR-2017 14:42, Borderline criteria for Anterior infarct are now Present T wave inversion less evident in Inferior leads T wave inversion now evident in Lateral leads Confirmed by Fabio Alamo ([id number]) on 01/23/2022 3:03:12 PM Referred By: REFERRED SELF Confirmed By:Fabio Alamo
[2022-01-23] MEDS: guaiFENesin 600 MG TABCR PO SCH (20:09)
[2022-01-24] MEDS: IPRATROPIUM BROMIDE NEB SOLN 0.02% 2.5 ML VIAL INH SCH ×4 (00:59→19:12)
[2022-01-24] MEDS: LEVALBUTEROL 1.25MG/0.5ML NEB INH SCH ×4 (00:59→19:12)
[2022-01-24] MEDS: INSULIN ASPART PER UNIT SC SCH ×5 (04:11→20:43)
[2022-01-24] MEDS ORDERED: SALINE NASAL 225 SPRAYS, GENTAMICIN SULFATE 60 MG, BARCODE IDENTIFIER 0 EACH PRN (04:16)
[2022-01-24] MEDS ORDERED: SODIUM CHLORIDE 0.65% NA SOLN 45 ML (OCEAN) PRN (05:13)
[2022-01-24 06:38] LABS: Estimated Average Glucose 140 mg/dl; Hemoglobin A1C 6.5 % (4.5-5.6)
[2022-01-24] MEDS: CINACALCET HCL 30 MG TAB PO SCH (08:52)
[2022-01-24] MEDS: SIMVASTATIN 10 MG TAB PO SCH (08:53)
[2022-01-24] MEDS: MULTIVITAMIN TAB PO SCH (08:53)
[2022-01-24] MEDS: POTASSIUM CHLORIDE CRTAB 20 MEQ TABCR PO SCH (08:53)
[2022-01-24] MEDS: LOSARTAN POTASSIUM 25 MG TAB PO SCH (08:53)
[2022-01-24] MEDS: amLODIPine BESYLATE 5 MG TAB PO SCH (08:53)
[2022-01-24] MEDS: PANTOprazole 40 MG TAB PO SCH (08:53)
[2022-01-24] MEDS: VITAMIN B COMPLEX TAB PO SCH (08:53)
[2022-01-24] MEDS: ASPIRIN 81 MG ECTAB PO SCH (08:53)
[2022-01-24] MEDS: guaiFENesin 600 MG TABCR PO SCH ×2 (08:54→20:44)
[2022-01-24] MEDS: DOXYCYCLINE HYCLATE 100 MG CAP PO SCH ×2 (08:54→20:44)
[2022-01-24] MEDS: ENOXAPARIN INJ 40 MG/0.4 ML SYR SQ SCH (08:54)
[2022-01-24] MEDS: LANTUS PER UNIT CHARGE SQ SCH ×2 (09:01→20:43)
[2022-01-24] MEDS: cefTRIAXone SODIUM 2,000 MG in DEXTROSE 5% 50 ML IV SCH (09:12)
[2022-01-24] MEDS ORDERED: FUROSEMIDE 40 MG TAB PO SCH (09:45)
[2022-01-24] MEDS: METOPROLOL TARTRATE 25 MG TAB PO SCH ×2 (10:30→20:47)
[2022-01-24 11:36] LABS: BUN Creatinine Ratio 26.3 (10-20); Calcium 8.5 mg/dl (8.5-10.1); Est GFR (African American) 80.1 ml/min; Est GFR (Non-African American) 69.1 ml/min; Potassium 4.3 mmol/L (3.5-5.1)
--- NOTE | 2022-01-24 12:01 | XRay Report ---
XR chest 1V portable CLINICAL HISTORY: ff up chf, pneumonia COMPARISON STUDY: Chest radiograph January 23, 2022. FINDINGS: Cardiomegaly is again noted. There are small bilateral pleural effusions. Right pleural eff usion has slightly increased. There are associated bibasilar opacities. Pulmonary edema similar to pr ior exam. No pneumothorax. IMPRESSION: Persistent pulmonary edema with small bilateral pleural effusions and associated bibasilar opacities. Right pleural effusion has slightly increased in size. ACT 112: Negative or not required by law. Electronically signed by: Karson Goddard M.D. 01/24/2022 11:59 AM
--- NOTE | 2022-01-24 13:30 | Pharmacy Report ---
Pharmacy Glycemic Short Note 2 - Date of Service January 24, 2022 - Glycemic Short BSG Results (Last 24 hours): 01/23/22 01/23/22 01/23/22 16:31 20:15 23:36 Glucose POC Glucose 136 H 119 H 102 H 01/24/22 01/24/22 01/24/22 04:11 07:29 10:42 Glucose 331 H* POC Glucose 108 H 144 H 01/24/22 11:37 Glucose POC Glucose 291 H OUTPATIENT ANTIDIABETIC REGIMEN: * Novolin 70/30 - 75 units SC qAM, 55 units SC qPM * Metformin 1000 mg PO BIDM HbA1c pending ASSESSMENT: 01/24: * BSGs [phone]/dL. Fasting this AM, 144mg/dL which is acceptable. Patient received 50 units of Lantus and 45 units of bolus insulin yesterday. Ordered and tolerating diet, continues on antibiotics. * Continue Lantus 25 units BID given fasting BSG within goal. Novolog parameters tightened with lunch today given elevated prandial BSG. 01/23: * LP is an 81 year old female admitted last evening (01/22) for acute respiratory failure (likely multifactorial) * Pharmacy consulted for glycemic management this morning, due to elevated BSG (283 mg/dL) * Patient uses 70/30 insulin at home, will use long-acting basal insulin in place of NPH for now * Initially will start with weight-based Novolog parameters, but may need to tighten based on BSG trends given significant outpatient insulin doses * Lunch BSG also elevated at 291 mg/dL - will give additional basal dose now and tighten Novolog further PLAN FOR INPATIENT GLYCEMIC CONTROL: * Hold outpatient oral diabetes medications * Basal insulin * Lantus 25 units SC BID * Bolus insulin * NovoLog per scale ACHS or Q6hrs while NPO * Goal Range: Low 110 mg/dL - High 140 mg/dL * Correction Factor: 21 mg/dL/unit * Nutritional / Prandial insulin per carb ratio of 1 unit per 7 grams CHO consumed * ,04 checks this evening with same parameters
[2022-01-24] MEDS ORDERED: FUROSEMIDE 40 MG/4 ML VIAL IV ONE (15:12)
--- NOTE | 2022-01-24 15:12 | Cardiology Progress Note ---
Date of Service January 24, 2022 Assessment & Plan (1) Acute heart failure with preserved ejection fraction (HFpEF): Plan: * Patient received a dose of oral furosemide today. Did have significant urine output in the last 24 hours, but chest x-ray findings, will continue IV, 40 mg now, 60 mg of IV furosemide twice daily at 7 AM, 1400 tomorrow. * Continue metoprolol 12.5 mg twice daily, losartan 25 mg daily. Reduce amlodipine to 2.5 mg daily. (2) Mitral stenosis: Plan: * Treat medically, as above. (3) Acute respiratory failure with hypoxia: Plan: * Continue oxygen supplementation, Rocephin, doxycycline. Admission and Anticipated Discharge Date Admission Date: January 22, 2022 Subjective Patient seen in cardiology follow-up. Still with significant oxygen requirement, most recent pulse oximetry 92% on 4 L nasal cannula. She states her lower extremity edema has improved/resolved. Breathing perhaps marginally improved. She still feels like she has a respiratory tract infection, and has an occasional cough. She notes that her has similar symptoms and presented to the emergency room today. He was discharged with plans for an outpatient course of antibiotics. Telemetry reveals sinus rhythm in the 80s. Review of Systems Review of Systems: All systems reviewed & are unremarkable except as noted in HPI & below Physical Exam Constitutional: WD/WN, vitals as above Cardiovascular: Rate/Rhythm: regular rate Heart Sounds: no murmur Extremities: no edema Gastrointestinal (Abdomen): normal bowel sounds, soft, nontender, no hepatosplenomegaly Neurologic: PERRL, EOMI, accommodation nl, no face palsy, no dysarthria Results & Data ([facility]) Vital Signs (Past 12 Hours) Vital Signs Temp Pulse Pulse Resp BP Pulse Ox Pulse Ox 01/24/22 13:56 01/24/22 12:52 78 18 92 01/24/22 10:49 36.8 C 92 H 20 122/62 93 01/24/22 08:00 91 01/24/22 07:48 92 H 18 93 01/24/22 07:39 85 01/24/22 07:18 36.4 C L 83 22 127/49 L 88 L 01/24/22 04:20 01/24/22 03:48 36.4 C L 84 16 115/68 91 O2 Del Method O2 Del Method O2 Flow Rate O2 Flow Rate 01/24/22 13:56 Nasal Cannula 4 01/24/22 12:52 Nasal Cannula 4 01/24/22 10:49 Nasal Cannula 4 01/24/22 08:00 Nasal Cannula 4 01/24/22 07:48 Nasal Cannula 4 01/24/22 07:39 01/24/22 07:18 Nasal Cannula 4 01/24/22 04:20 Nasal Cannula 4 01/24/22 03:48 Nasal Cannula 4 Diagnostic Findings Chest x-ray today, radiology report reviewed and image reviewed independently, persistent pulmonary edema with small bilateral pleural effusions.
--- NOTE | 2022-01-24 16:18 | Hospitalist Progress Note ---
Date of Service January 24, 2022 Assessment & Plan (1) Acute respiratory failure with hypoxia: Plan: Multifactorial: Bilateral Pneumonia Acute CHF -- remains on 4 L NC -- Continue Septra plus Doxy Nebs q6h Mucinex IS -- echo: EF 60%, severe mitral annular calcification, mild mitral stenosis Lasix increased to 60mg IV bid Medical Detailist consulted Troponin elevation secondary to illness -- No chest pain Continue to trend hx CAD status post stent hypertension -- Norvasc 2.5 mg p.o. daily ordered hyperlipidemia, on statin Rx DM2 insulin requiring, p A1c of 6.19 August 2021 GERD, stable on regimen primary hyperparathyroidism, stable on Cinacalcet, patient refused surgery as per outpatient [facility] Endocrinology note from 2017 New onset anemia -we will monitor past tobacco abuse DVT prophylaxis. Lovenox subcu DNR Disposition Pending Will order PT and OT evaluation once stable Admission and Anticipated Discharge Date Admission Date: January 22, 2022 Subjective Follow-up for acute CHF, pneumonia, etc. Seen resting in bed, sitting up, on 4 L of oxygen Not in Distress, comfortable States she feels improved compared to yesterday no chest pain, dyspnea, palpitations, dizziness No other symptoms Review of Systems Review of Systems: all noted and negative except for above Physical Exam Physical Exam: General- oriented x 3, not in distress, speaks in sentences with no effort or accessory muscle use Eyes- anicteric Neck- no JVD Lungs-diminished breath sounds bilaterally Mild crackles at the bases No wheezing Heart- normal rate, regular rhythm; no murmurs Abdomen- normal bowel sounds, nondistended, soft, no tenderness Extremities-mild pretibial edema, no calf tenderness Neuro- alert, oriented x 3; no gross focal neurologic deficits Skin- warm & dry Results & Data Results & Data ([facility]) Vital Signs (Past 12 Hours) Vital Signs Temp Pulse Pulse Resp BP Pulse Ox Pulse Ox 01/24/22 13:56 01/24/22 12:52 78 18 92 01/24/22 10:49 36.8 C 92 H 20 122/62 93 01/24/22 08:00 91 01/24/22 07:48 92 H 18 93 01/24/22 07:39 85 01/24/22 07:18 36.4 C L 83 22 127/49 L 88 L 01/24/22 04:20 O2 Del Method O2 Del Method O2 Flow Rate O2 Flow Rate 01/24/22 13:56 Nasal Cannula 4 01/24/22 12:52 Nasal Cannula 4 01/24/22 10:49 Nasal Cannula 4 01/24/22 08:00 Nasal Cannula 4 01/24/22 07:48 Nasal Cannula 4 01/24/22 07:39 01/24/22 07:18 Nasal Cannula 4 01/24/22 04:20 Nasal Cannula 4 all noted and reviewed including below
[2022-01-24] MEDS ORDERED: IPRATROPIUM BROMIDE NEB SOLN 0.02% 2.5 ML VIAL INH PRN (21:45)
[2022-01-24] MEDS ORDERED: XOPENEX/ATROVENT 1.25mg/0.5MG NEB COMBO NEB PRN (21:45)
[2022-01-24] MEDS ORDERED: LEVALBUTEROL 1.25MG/0.5ML NEB INH PRN (21:45)
--- NOTE | 2022-01-25 04:45 | Communication Note ---
Date of Service: January 25, 2022 4:30 AM Notified by RN of patient complaining of right upper extremity weakness and numbness per patient woke up to ask for help going to the bedside commode. Patient "having trouble controlling right arm." As per RN around 2 AM, patient had transient RUE clumsiness symptoms which spontaneously resolved. Patient denies headache, neck pain, facial weakness, trouble speaking, leg weakness. No previous episodes as per patient. PPE : No facial asymmetry MMTs BUE, BLE 4/5 pronator drift right Dysmetric right upper extremity Ap RUE weakness/incoordination Possible CVA Stroke alert called CT head initial read: No ICH, mass effect or edema. No evidence of acute cortical stroke. Left temporal occipital encephalomalacia noted compatible with distant prior infarct Visualized sinuses and mastoid air cells are clear. CT angio head initial read: No large vessel stenosis or occlusion Posterior left occipital temporal encephalomalacia compatible with distant prior infarct. CT angio neck initial read: Atherosclerotic plaque noted at the distal common and proximal internal carotid arteries bilaterally. On the left there is a 30%stenosis of the distal CCA. The proximal ICAdemonstrates a 20%stenosis. On the right no significant stenosis is identified The vertebral arteries demonstrate no stenosis, occlusion or dissection. Adominant left vertebral arteryis noted 2 cmcomplex right thyroid lesion noted. Elective sonographymaybe recommended byin-house radiology Bilateral pleural effusions and interstitial prominence which mayreflect interstitial edema. Case discussed with Dr. Pastrana ([facility] telestroke specialist). Possible cerebellar stroke as per neurologist. tPA not indicated as patient may have had symptoms prior to midnight upon further patient query. Patient also with mild symptoms for which the risks of tPA outweighs the benefit as per neurologist. Dr. Pastrana recommends addition of Plavix to patient's current aspirin for possible aspirin failure, MRI, TTE, and inpatient Neurology consultation. Hold patient's BP meds, diuretics today to allow for permissive hypertension. Will relay to AM provider.
[2022-01-25] MEDS ORDERED: OPTIRAY 300 500mL IV ONE (05:11)
[2022-01-25 05:47] LABS: Basophils # (auto) 0.14 K/uL (0-0.2); Basophils % (auto) 1.1 %; Eosinophils # (auto) 0.43 K/uL (0-0.50); Eosinophils % (auto) 3.2 %; Hematocrit (blood only) 27.8 % (34.1-44.9); Hemoglobin 8.4 g/dl (12.0-16.0); Immature Granulocytes # (auto) 0.04 K/uL (0.00-0.02); Immature Granulocytes % (auto) 0.3 %; Lymphocytes # (auto) 2.96 K/uL (1.2-3.4); Lymphocytes % (auto) 22.3 %; Mean Corpuscular Hemoglobin 20.8 pg (25.0-34.0); Mean Corpuscular Hgb Conc 30.2 g/dL (32.0-36.0); Mean Corpuscular Volume 68.8 fL (80.0-100.0); Monocytes # (auto) 1.51 K/uL (0.24-0.82); Monocytes % (auto) 11.4 %; Neutrophils # (auto) 8.19 K/uL (1.4-6.5); Neutrophils % (auto) 61.7 %; Nucleated RBC # (auto) 0.04 K/uL (0-0); Nucleated RBC % (auto) 0.3 %; RDW Coefficient of Variation 22.2 % (11.5-14.5); RDW Standard Deviation 52.6 fL (36.4-46.3); Red Blood Count 4.04 M/uL (3.93-5.22); White Blood Count 13.27 K/ul (4.8-10.8)
[2022-01-25 05:51] LABS: Mean Platelet Volume 10.3 fL (9.4-12.3); Platelet Count 285 K/uL (130-400)
[2022-01-25 06:09] LABS: BUN Creatinine Ratio 28.4 (10-20); Calcium 8.9 mg/dl (8.5-10.1); Creatinine Clr Calc Pharmacy 62.3 ml/min; Est GFR (African American) 88.1 ml/min; Magnesium 1.3 mg/dl (1.7-2.4); Potassium 3.8 mmol/L (3.5-5.1)
[2022-01-25 06:11] LABS: Partial Thromboplastin Time 26.8 Seconds (21.0-31.0)
[2022-01-25 06:22] LABS: Anisocytosis Present; Polychromasia 1+; Schistocytes 1+; Target Cells 1+
[2022-01-25] MEDS ORDERED: CLOPIDOGREL BISULFATE 300 MG TAB PO STA (06:26)
[2022-01-25] MEDS ORDERED: FUROSEMIDE 40 MG/4 ML VIAL IV SCH (07:00)
--- NOTE | 2022-01-25 07:06 | CT Scan Report ---
CT angio neck with con, CT angio head w con CLINICAL HISTORY: 81 years-old Female with cva. Acute weakness with strokelike symptoms COMPARISON STUDY: Head CT of same day TECHNIQUE: Following the IV administration of 112 mL of Optiray, CT angiogram of the head and neck wa s performed from the aortic arch to the skull vertex. Images are reviewed in the axial, sagittal, and coronal planes. 3-D MIPS images are created and assessed. IV contrast was administered without compl ication. All measurements were calculated based on NASCET criteria. A dose lowering technique was ut ilized adhering to the principles of ALARA. CT DOSE: 1302.27 mGy.cm FINDINGS: Involutional changes with prominent extra-axial spaces adjacent to the frontal lobes redemonstrated. White matter hypodensities suggestive of chronic microvascular ischemic disease. Chronic left occipit al infarct. Atherosclerotic plaque of the thoracic aortic arch and proximal great vessels. The study is motion de graded. Patency of the innominate and imaged subclavian arteries. The common carotid arteries are pat ent. There is mild atherosclerotic plaque of the right carotid bulb and proximal right ICA resulting in less than 50% stenosis. Moderate atherosclerotic plaque of the left carotid bulb and proximal left ICA also results in less than 50% stenosis. There is tortuosity of the distal cervical segment left ICA. Calcified plaque is noted within the cavernous, clinoid and supraclinoid segments. The middle an d anterior cerebral arteries are patent. Dominant left vertebral artery. The vertebral arteries are w idely patent. The right vertebral artery probably terminates into the right PICA. Basilar and posteri or cerebral arteries are patent. Cerebral venous sinuses are patent. There is no abnormal intracrania l enhancement. Moderate sized layering pleural effusions. Nonspecific mildly enlarged mediastinal and right hilar ly mph nodes. Intralobular septal thickening with intermixed groundglass densities compatible with pulmo nary edema. Heterogeneous partially calcified 2.1 cm right-sided thyroid nodule. The thyroid is enlar ged. Degenerative changes of the spine. IMPRESSION: 1. Atherosclerotic plaque as above. No aneurysm, dissection, high-grade stenosis or arterial occlusio n. 2. Pulmonary edema with pleural effusions. ACT 112: Negative or not required by law. The above report was generated using voice recognition software. It may contain grammatical, syntax o r spelling errors. Electronically signed by: Abhay Smart M.D. 01/25/2022 7:04 AM
--- NOTE | 2022-01-25 07:12 | CT Scan Report ---
HEAD CT NONCONTRAST CT DOSE: HISTORY: Weakness. Stroke like symptoms. TECHNIQUE: Multiaxial CT images of the head were performed without the use of intravenous contrast. A utomated exposure control was utilized for this study. A dose lowering technique was utilized adheri ng to the principles of ALARA. Comparison: Head CT 04/21/2017. Findings: The paranasal sinuses and mastoid air cells are clear. The calvarium and skull base are int act. There is no mass, hematoma, midline shift, acute infarct. White matter hypodensity is nonspecifi c but suggestive of microvascular ischemic change. The ventricles and sulci demonstrate moderate age- related involutional changes. Old left occipital lobe infarct, unchanged. Prominence of the extra-axi al CSF spaces remain unchanged. Impression: No significant change compared to the prior study. No acute intracranial abnormality. ACT 112: Negative or not required by law. Electronically signed by: Pee Parker M.D. 01/25/2022 7:10 AM
[2022-01-25] MEDS: POTASSIUM CHLORIDE CRTAB 20 MEQ TABCR PO SCH (07:50)
[2022-01-25] MEDS: PANTOprazole 40 MG TAB PO SCH (07:51)
[2022-01-25] MEDS: VITAMIN B COMPLEX TAB PO SCH (07:51)
[2022-01-25] MEDS: ASPIRIN 81 MG ECTAB PO SCH (07:51)
[2022-01-25] MEDS: SIMVASTATIN 10 MG TAB PO SCH (07:51)
[2022-01-25] MEDS: guaiFENesin 600 MG TABCR PO SCH ×2 (07:52→21:11)
[2022-01-25] MEDS: MULTIVITAMIN TAB PO SCH (07:52)
[2022-01-25] MEDS: CINACALCET HCL 30 MG TAB PO SCH (07:52)
[2022-01-25] MEDS: ENOXAPARIN INJ 40 MG/0.4 ML SYR SQ SCH (07:53)
[2022-01-25] MEDS: DOXYCYCLINE HYCLATE 100 MG CAP PO SCH ×2 (07:54→21:11)
[2022-01-25] MEDS: LANTUS PER UNIT CHARGE SQ SCH ×2 (07:57→21:11)
[2022-01-25] MEDS: INSULIN ASPART PER UNIT SC SCH ×4 (07:57→21:11)
[2022-01-25] MEDS: cefTRIAXone SODIUM 2,000 MG in DEXTROSE 5% 50 ML IV SCH (08:06)
[2022-01-25] MEDS ORDERED: amLODIPine BESYLATE 5 MG TAB PO SCH (09:00)
--- NOTE | 2022-01-25 09:10 | Neurology Consultation ---
Date of Consultation January 25, 2022 Assessment & Plan (1) Muscle weakness of right arm: (2) Right homonymous hemianopsia: (3) Type 2 diabetes mellitus without complications: (4) Other and unspecified hyperlipidemia: (5) CHF (congestive heart failure): (6) Idiopathic polyneuropathy: Plan this patient has acute onset earlier today of right upper extremity weakness and clumsiness. The face and leg seem to be relatively spared. I suspect a small ischemic left hemispheric stroke. The patient has a history of old right homonymous hemianopsia (partial ) from an old left occipital stroke seen on CT scan. She has longstanding diabetes, hypertension and dyslipidemia as risk factors for stroke. In addition she was extremely heavy cigarette smoker for almost 50 years, quitting in 2006 Currently she has congestive heart failure and pneumonia with microcytic (iron deficient) anemia. She is treated with ceftriaxone. 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 a sensory polyneuropathy could give her a sensory ataxia ( unsteady gait). Recommendations: 1. MRI of the brain without contrast to evaluate for acute stroke. 2. continue 81 mg aspirin +75 mg clopidogrel for now. After the MRI we may adj ust this to clopidogrel alone 3. Control glucose as you are doing. hemoglobin A1c was 6.5. Aim for hemoglobin A1c of 6 point. 4. Total cholesterol is 102 triglycerides 71. she is not a high dose statin candidate, and with these numbers I would keep her on the current dose of simvastatin. 5. control blood pressure as you are doing, aiming for mean arterial pressure of 95-100. 6. physical and occupational therapy for the right upper extremity. Increase activity as able. Overall, I spent a total of 75 minutes with this case including review of records, review of CT films, direct evaluation the patient bedside, and discussion of the case with the patient and RN at bedside, and Dr. Madden, including differential diagnosis and treatment options. History of Present Illness Reason for Consultation: Patient is an 81-year-old, who I was asked to see at the request of Dr. Simmons, for neurologic consultation regarding probable stroke. Requesting Physician: Dr. Simmons Attending Physician: Santi Madden MD History of Present Illness This patient has a longstanding ( 30+ years) history of diabetes on insulin for years. She denies history of hypertension and dyslipidemia but she is being treated for that with medication. She also has GERD and primary hyperparathyroidism. She was not on any anti-platelet medication prior to admission, and has no history of her disease. The patient does have a history of left occipital stroke resulting in some right homonymous hemianopsia with improved but per minute visual field loss to the right. She tells me that the stroke occurred at least 10 years ago but it could be as many as 15-20 years ago. There are no records in the chart regarding this. This patient was admitted January 22 for a 4 day history of cough and shortness of breath. Laboratory studies revealed a significant microcytic (iron deficient) anemia with hemoglobin 9 and hematocrit 30. Chem profile was largely unremarkable except for a glucose of 300. TSH and B12 were unremarkable. chest x-ray showed cardiomegaly and pulmonary edema with infiltrates bilaterally and probable bilateral pneumonia. Echocardiogram revealed some mitral calcification and mild mitral stenosis. She was in some congestive heart failure. She was seen by Dr. Mcfarland, Cardiology. The patient believe she went to sleep around 2230 last p.m. but woke up, according to the nurses, around 0145 today with some right upper extremity weakness and numbness. She went to the bathroom and was reportedly a little bit weak with standing but managed to ambulate back and forth without too much difficulty. The symptoms waxed and waned that she did go back to sleep but woke up around 0400 with significant weakness and dysesthesias in the right upper ext remity. A stroke alert was called. CT scan of the head showed the old left occipital infarct area of encephalomalacia (I reviewed these films). CT angiography of the head neck were largely unremarkable except for some scattered plaque. Patient was put on aspirin and Plavix. Currently, the patient has considerable weakness and clumsiness of right upper extremity but has no significant numbness. She denies symptoms in her right face or right leg. She has no speech or vision issues of a new nature. She is not confused. Laboratory studies today revealed hemoglobin of 8.4 hematocrit of 278. White count is still elevated at 13 and she is on ceftriaxone. Glucose was 200 but magnesium was low at 1.3. Blood pressure is 148/62 and she is afebrile. Allergies Allergy/AdvReac Type Severity Reaction Status Date / Time No Known Allergies Allergy Unverified 01/22/22 20:03 Home Medications Medication Instructions Recorded Confirmed Type alendronate 70 mg tablet 70 mg PO WK 01/22/22 01/22/22 History amlodipine 5 mg tablet 5 mg PO QAM 01/22/22 01/22/22 History biotin 1 mg tablet 1 mg PO TID 01/22/22 01/22/22 History cinacalcet 30 mg tablet 30 mg PO DAILY 01/22/22 01/22/22 History glucosamine-chondroitin 250 mg-200 1 tab PO DAILY 01/22/22 01/22/22 History mg tablet (Osteo Bi-Flex) insulin human U-100 NPH-regulr 55 unit subcut QPM 01/22/22 01/22/22 History 70-30 mix 100 unit/mL subcutaneous susp (Novolin 70/30 U-100 Insulin) insulin human U-100 NPH-regulr 75 unit subcut QAM 01/22/22 01/22/22 History 70-30 mix 100 unit/mL subcutaneous susp (Novolin 70/30 U-100 Insulin) losartan 25 mg tablet 25 mg PO DAILY 01/22/22 01/22/22 History metformin 1,000 mg tablet 1,000 mg PO BID 01/22/22 01/22/22 History pfxzrzttuzvy-gendlzlw-fluuyc tablet 1 tab PO DAILY 01/22/22 01/22/22 History omeprazole 20 mg capsule,delayed 20 mg PO DAILY 01/22/22 01/22/22 History release potassium gluconate 595 mg (99 mg) 595 mg PO DAILY 01/22/22 01/22/22 History tablet simvastatin 10 mg tablet 10 mg PO DAILY 01/22/22 01/22/22 History vitamin B complex 1 tab PO DAILY 01/22/22 01/22/22 History Patient History Medical History Coronary atherosclerosis of [place] coronary vessel Essential (primary) hypertension Lumbago Other and unspecified hyperlipidemia Type 2 diabetes mellitus without complications Surgical History (Updated 01/25/22 @ 08:53 by Artem Cummings MD) History of cataract surgery S/P cholecystectomy Family History Mother , age 70 of a stroke and congestive heart failure Stroke CHF (congestive heart failure) Father , in his 70s of an [place] Myocardial infarction Social History Smoking Status: Former smoker packs per day: 4; Smoking End Date: 2006; Hx Alcohol Use: Yes Alcohol type: beer Alcohol Intake Frequency Comment: up to 1 beer to her day. Hx Substance Use: No Preferred Language: Estonian Communication Ability: Effective Gauger Delivery Required: No Beliefs That Will Affect Care: None marital status: Current Living Situation: Spouse current occupational status: retired current occupation: Multiple different jobs retiring in her 50s. Other Information That Helps Us Care for You: No Feels Safe at Home: Yes Safety Concerns: Feels Safe At This Time Assistive Devices: Cane and Walker Review of Systems Constitutional: + fatigue; no fever and no weakness Eyes: + loss of peripheral vision; no diplopia, no eye pain and no worsening vision Ear, Nose, Mouth, Throat: no ear pain, no tinnitus, no hearing loss, no dizziness, no snoring, no hoarseness and no dysphagia Respiratory: + cough and + dyspnea Cardiovascular: no chest pain, no palpitations and no lightheadedness Gastrointestinal: no abdominal pain, no nausea and no vomiting Genitourinary: no dysuria, no urinary frequency and no urinary incontinence Musculoskeletal: no back pain, no neck pain, no radicular pain, no joint pain and no myalgia Integumentary: no rash and no lesions Neurologic: + localized weakness and + tingling; no gait abnormality, no generalized weakness, no numbness, no tremor(s), no abnormal movements, no headache(s), no abnormal speech, no confusion and no memory loss Psychiatric: no depression, no irritability, no anxiety, no difficulty concentrating, no confusion and no hallucinations Endocrine: no fatigue and no flushing Hematologic / Lymphatic: no easy bleeding and no easy bruising Allergy / Immunological: no urticaria and no problem reported Exam (Neuro) Physical Exam: The patient is right-handed. The patient is awake, alert, and attentive. Speech is normal without any aphasia or dysarthria. The patient can name objects, repeat phrases, and has normal spontaneous speech. Mentation and thought processes are intact, with orientation to person, place and time, and normal fund of knowledge. Attention and concentration are normal. Mood and affect are normal and appropriate. General appearance and grooming are normal. Short and long-term memory are intact. The discs are sharp with positive venous pulsations bilaterally. There are no exudates, hemorrhages, or blood vessel changes seen. Pupils are 3 mm bilaterally and reactive to light. Extraocular eye muscles are intact without nystagmus. there is decreased vision in the lateral right side of both eyes ( 0-25 degrees is missing laterally ) There are no deficits to sensation in the face in all 3 distributions of the fifth cranial nerve bilaterally. Corneal reflexes are positive bilaterally. Facial strength and symmetry was normal bilaterally. Hearing seems normal bilat erally. Palate moves well without asymmetry. There is normal sternocleidomastoid and trapezius (shoulder shrug) strength bilaterally. Tongue is midline with good strength bilaterally. Neck has a full range of motion without discomfort. There are no cervical bruits bilaterally. There are no cranial or ocular bruits. Heart is without murmur. There is a regular rhythm and rate. Cervical, thoracic, and lumbar spine are nontender to palpation. Gait is not tested but stance sitting up in bed is reasonable.. With outstretched arms there is no drift on the left. the right upper extremity has significant drift and clumsiness. There are no resting, postural, or action tremors. There is no ataxia with finger to nose testing. There is decreased facility the right hand compared to the left which is. Motor strength is 5/5 diffusely in the Left upper extremity including deltoids, biceps, triceps, brachioradialis, wrist flexors and extensors, rolfer, and intrinsic hand muscles. The right upper extremity is 4/5 diffusely both proximally and distally. Motor strength is 5/5 diffusely in the legs bilaterally including hip flexors, quadriceps, hamstrings, gastrocnemius, tibialis anterior, tibialis posterior, and Peroneii muscles. Toe extensors are normal and there is good bulk in the extensor digitorum brevis muscles bilaterally. The limbs have good tone without rigidity or spasticity. There is no atrophy noted in the muscles. Muscle bulk is normal, there is no tenderness to palpation, no myotonia to percussion, and no fasciculations seen. Sensory examination is intact to touch and pin In the arms bilaterally. There is a stocking decreased pinprick loss in the feet to the mid lower legs bilaterally. Reflexes are 1/4 in the biceps, triceps, brachioradialis, and quadriceps tendons bilaterally. Achilles tendon reflexes are absent bilaterally. There is no clonus bilaterally. Toes are Difficult to evaluate because of withdrawal and sensitivity to the test bilaterally. Peripheral pulses are present and of normal quality distally in all 4 limbs. There is no peripheral edema noted in the limbs. Results & Data ([facility]) Vital Signs (Past 12 Hours) Vital Signs Temp Pulse Pulse Resp BP BP Pulse Ox 01/25/22 06:23 36.7 C 91 H 18 148/62 H 93 01/25/22 05:37 93 H 18 145/53 H 92 01/25/22 05:10 91 H 16 147/55 H 93 01/25/22 04:28 94 H 18 160/80 H 94 01/25/22 03:10 37.2 C 90 20 122/58 L 96 01/24/22 23:05 37.2 C 95 H 20 108/53 L 93 01/24/22 20:48 37.4 C 97 H 22 118/64 95 O2 Del Method O2 Flow Rate 01/25/22 06:23 Nasal Cannula 4 01/25/22 05:37 Nasal Cannula 4 01/25/22 05:10 Nasal Cannula 4 01/25/22 04:28 Room Air 01/25/22 03:10 Nasal Cannula 4 01/24/22 23:05 Nasal Cannula 3 01/24/22 20:48 Nasal Cannula 4 PG Care Time/CCT Total # of Minutes Spent Total Time Spent with Patient: Total time spent is greater than 50% in coordination of care (as documented) at patient's floor/unit and/or counseling patient: Coding Level of Care Code 80406 Initial Inpt Care Lvl 3 Diagnoses Muscle weakness of right arm M62.81 Right homonymous hemianopsia H53.461 Type 2 diabetes mellitus without complications E11.9 Other and unspecified hyperlipidemia E78.5 CHF (congestive heart failure) I50.9 Idiopathic polyneuropathy G60.9 Time Spent (min) 75
[2022-01-25] MEDS: MAGNESIUM SULFATE / D5W 1 GM/100 ML BAG IV SCH ×2 (10:08→12:02)
[2022-01-25] MEDS: MAGNESIUM OXIDE 400 MG TAB PO SCH ×2 (10:08→21:11)
--- NOTE | 2022-01-25 11:47 | Magnetic Resonance Report ---
Brain MRI WITHOUT CONTRAST HISTORY: Acute onset of right-sided weakness. TECHNIQUE: Multiplanar multisequence MRI of the brain was performed without the use of contrast. COMPARISON STUDY: Head CT 01/25/2022. FINDINGS: There are 2 adjacent small foci of restricted diffusion within the left posterior frontal l obe with the largest on image 16 measuring 15 mm consistent with acute infarcts. There is a 7 mm focu s of restricted diffusion within the right caudate head consistent with an acute infarct. There are 2 punctate foci of restricted diffusion within the right cerebellar hemisphere on images 4 and 7 consi stent with acute lacunar infarcts. Mild motion artifact. There is an old small left occipital lobe in farct. This remains unchanged. The major vascular flow-voids at the skull base are well-maintained. E vidence for prior bilateral lens repair. Moderate atrophic changes again noted within the brain. Ther e is no mass, hematoma, midline shift. Prominence of the extra-axial spaces persists and may be due t o the volume loss. Paravertebral white matter T2 hyperintensity favors mild microvascular ischemic ch [place]. IMPRESSION: 1. A few scattered small acute infarcts as described above. 2. Moderate atrophic changes with prominence of the extra axial spaces. This remains unchanged. ACT 112: Negative or not required by law. Electronically signed by: Pee Parker M.D. 01/25/2022 11:46 AM
--- NOTE | 2022-01-25 13:39 | Cardiology Progress Note ---
Date of Service January 25, 2022 Assessment & Plan (1) Acute heart failure with preserved ejection fraction (HFpEF): Plan: * Losartan and furosemide on hold, with plan to permit some degree of hypertension given stroke event. (2) Mitral stenosis: Plan: * Treat medically, as above. (3) Acute respiratory failure with hypoxia: Plan: * Continue oxygen supplementation, Rocephin, doxycycline. (4) Microcytic anemia: Plan: * Hemoglobin stable. Wanted to keep an eye on things given treatment with aspirin and clopidogrel. (5) Muscle weakness of right arm: Plan: * Assistance of the e commerce web developer and neurology noted and appreciated. * Continue dual antiplatelet therapy. * Encouragement offered to the patient with regards to her frustration. Continue DVT prophylaxis with Lovenox 40 mg subcu daily. Admission and Anticipated Discharge Date Admission Date: January 22, 2022 Subjective Patient seen in cardiology follow-up. She expresses being frustrated. She was assessed overnight by Dr. Simmons with concerns of stroke symptoms, and has ongoing issues with regards to weakness of her right arm that are new compared to admission. Telemetry reveals sinus rhythm overnight and again thus far today. MRI of the brain reveals several small scattered acute infarcts. Review of Systems Review of Systems: All systems reviewed & are unremarkable except as noted in HPI & below Physical Exam Constitutional: WD/WN, vitals as above Cardiovascular: Rate/Rhythm: regular rate Heart Sounds: no murmur Extremities: no edema Gastrointestinal (Abdomen): normal bowel sounds, soft, nontender, no hepatosplenomegaly Neurologic: PERRL, EOMI, accommodation nl, no face palsy, no dysarthria Results & Data ([facility]) Vital Signs (Past 12 Hours) Vital Signs Temp Pulse Pulse Pulse Resp BP BP 01/25/22 11:30 36.8 C 86 18 144/59 H 01/25/22 08:00 91 H 01/25/22 08:00 01/25/22 08:47 36.7 C 97 H 18 144/58 H 01/25/22 06:23 36.7 C 91 H 18 148/62 H 01/25/22 05:37 93 H 18 145/53 H 01/25/22 05:10 91 H 16 147/55 H 01/25/22 04:28 94 H 18 160/80 H 01/25/22 03:10 37.2 C 90 20 122/58 L Pulse Ox O2 Del Method O2 Flow Rate 01/25/22 11:30 95 Nasal Cannula 4 01/25/22 08:00 01/25/22 08:00 Nasal Cannula 4 01/25/22 08:47 92 Nasal Cannula 4 01/25/22 06:23 93 Nasal Cannula 4 01/25/22 05:37 92 Nasal Cannula 4 01/25/22 05:10 93 Nasal Cannula 4 01/25/22 04:28 94 Room Air 01/25/22 03:10 96 Nasal Cannula 4
--- NOTE | 2022-01-25 14:18 | Pharmacy Report ---
Pharmacy Glycemic Short Note 2 - Date of Service January 25, 2022 - Glycemic Short BSG Results (Last 24 hours): 01/24/22 01/24/22 01/25/22 16:28 20:22 05:21 Glucose 200 H POC Glucose 227 H 194 H 01/25/22 01/25/22 07:33 11:51 Glucose POC Glucose 225 H 263 H OUTPATIENT ANTIDIABETIC REGIMEN: * Novolin 70/30 - 75 units SC qAM, 55 units SC qPM * Metformin 1000 mg PO BIDM HbA1c pending ASSESSMENT: 01/25: * BSGs uncontrolled [phone]/dL the last 24h. Received 50 units of basal yesterday and 35units of bolus. Fasting this AM 225mg/dL. * Continues on antibiotics and ordered diet * Plan to increase Lantus ~10% to 27 units BID starting tonight. Novolog parameters tightened to 20/6. 01/24: * BSGs [phone]/dL. Fasting this AM, 144mg/dL which is acceptable. Patient received 50 units of Lantus and 45 units of bolus insulin yesterday. Ordered and tolerating diet, continues on antibiotics. * Continue Lantus 25 units BID given fasting BSG within goal. Novolog parameters tightened with lunch today given elevated prandial BSG. 01/23: * LP is an 81 year old female admitted last evening (01/22) for acute respiratory failure (likely multifactorial) * Pharmacy consulted for glycemic management this morning, due to elevated BSG (283 mg/dL) * Patient uses 70/30 insulin at home, will use long-acting basal insulin in place of NPH for now * Initially will start with weight-based Novolog parameters, but may need to tighten based on BSG trends given significant outpatient insulin doses * Lunch BSG also elevated at 291 mg/dL - will give additional basal dose now and tighten Novolog further PLAN FOR INPATIENT GLYCEMIC CONTROL: * Hold outpatient oral diabetes medications * Basal insulin * Lantus 27 units SC BID * Bolus insulin * NovoLog per scale ACHS or Q6hrs while NPO * Goal Range: Low 110 mg/dL - High 140 mg/dL * Correction Factor: 20 mg/dL/unit * Nutritional / Prandial insulin per carb ratio of 1 unit per 6 grams CHO consumed * ,04 checks this evening with same parameters
--- NOTE | 2022-01-25 17:09 | Hospitalist Progress Note ---
Date of Service January 25, 2022 Assessment & Plan (1) Acute respiratory failure with hypoxia: Plan: Multifactorial: Bilateral Pneumonia Acute CHF -- Still remains on 4 L NC -- Continue ceftriaxone plus Doxy Nebs q6h Mucinex Incentive spirometry -- echo: EF 60%, severe mitral annular calcification, mild mitral stenosis Lasix increased to 60mg IV bid--> held today in light of acute CVA Web Marketing Intern consulted Acute CVA, right upper extremity weakness -- Developed symptoms overnight --Brain MRI: There are 2 adjacent small foci of restricted diffusion within the left posterior frontal lobe with the largest on image 16 measuring 15 mm consistent with acute infarcts. There is a 7 mm focus of restricted diffusion within the right caudate head consistent with an acute infarct. There are 2 punctate foci of restricted diffusion within the right cerebellar hemisphere on images 4 and 7 consistent with acute lacunar infarcts. Mild motion artifact. There is an old small left occipital lobe infarct. This remains unchanged. -- CTA head and neck: Atherosclerotic plaque of the thoracic aortic arch and proximal great vessels. The study is motion degraded. Patency of the innominate and imaged subclavian arteries. The common carotid arteries are patent. There is mild atherosclerotic plaque of the right carotid bulb and proximal right ICA resulting in less than 50% stenosis. Moderate atherosclerotic plaque of the left carotid bulb and proximal left ICA also results in less than 50% stenosis. There is tortuosity of the distal cervical segment left ICA. Calcified plaque is noted within the cavernous, clinoid and supraclinoid segments. The middle and anterior cerebral arteries are patent. Dominant left vertebral artery. The vertebral arteries are widely patent. The right vertebral artery probably terminates into the right PICA. Basilar and posterior cerebral arteries are patent. Cerebral venous sinuses are patent. There is no abnormal intracranial enhancement. Moderate sized layering pleural effusions. Nonspecific mildly enlarged mediastinal and right hilar lymph nodes. Intralobular septal thickening with intermixed groundglass densities compatible with pulmonary edema. Heterogeneous partially calcified 2.1 cm right-sided thyroid nodule. The thyroid is enlarged. Degenerative changes of the spine. -- Neurology service consulted --Recommended adding Plavix to aspirin Maintain MAP 95-100 Troponin elevation secondary to illness -- No chest pain Continue to trend hx CAD status post stent hypertension -- Losartan on hold in light of acute CVA hyperlipidemia, on statin Rx DM2 insulin requiring, p A1c of 6.19 August 2021 GERD, stable on regimen primary hyperparathyroidism, stable on Cinacalcet, patient refused surgery as per outpatient [facility] Endocrinology note from 2017 New onset anemia -hemoglobin 8 past tobacco abuse DVT prophylaxis. Lovenox subcu DNR Disposition Pending PT/OT in progress May need acute rehab plan of care discussed with patient in detail and at length all questions answered She is understanding, agreeable, comfortable with the plan of care Admission and Anticipated Discharge Date Admission Date: January 22, 2022 Subjective Follow-up for acute respiratory failure, CHF, pneumonia, etc. Overnight, patient developed right upper extremity weakness Stroke alert called Brain MRI showing acute infarcts bilaterally Seen sitting up in bedside chair, on 4 L of oxygen Not in distress, comfortable Still reports right upper extremity weakness No active shortness of breath, chest pain, palpitations, dizziness Has mild nonproductive cough No other symptoms Review of Systems Review of Systems: all noted and negative except for above Physical Exam Physical Exam: General- oriented x 3, not in distress, speaks in sentences with no effort or accessory muscle use Eyes- anicteric Neck- no JVD Lungs-mild rales at the bases, no wheezing Heart- normal rate, regular rhythm; no murmurs Abdomen- normal bowel sounds, nondistended, soft, nontender Extremities- no pretibial edema, no calf tenderness Neuro- alert, oriented x 3; motor strength right upper extremity: 3-4 over 5, sensation 100% No other focal neurologic deficits noted Skin- warm & dry Results & Data Results & Data ([facility]) Vital Signs (Past 12 Hours) Vital Signs Temp Pulse Pulse Pulse Resp BP Pulse Ox 01/25/22 16:30 36.5 C 97 H 20 176/56 H 97 01/25/22 15:04 89 L 01/25/22 14:34 01/25/22 11:30 36.8 C 86 18 144/59 H 95 01/25/22 08:00 91 H 01/25/22 08:00 01/25/22 08:47 36.7 C 97 H 18 144/58 H 92 01/25/22 06:23 36.7 C 91 H 18 148/62 H 93 01/25/22 05:37 93 H 18 145/53 H 92 01/25/22 05:10 91 H 16 147/55 H 93 Pulse Ox O2 Del Method O2 Flow Rate O2 Flow Rate 01/25/22 16:30 Nasal Cannula 4 01/25/22 15:04 01/25/22 14:34 98 4 01/25/22 11:30 Nasal Cannula 4 01/25/22 08:00 01/25/22 08:00 Nasal Cannula 4 01/25/22 08:47 Nasal Cannula 4 01/25/22 06:23 Nasal Cannula 4 01/25/22 05:37 Nasal Cannula 4 01/25/22 05:10 Nasal Cannula 4 all noted and reviewed including below
[2022-01-26] MEDS: INSULIN ASPART PER UNIT SC SCH ×4 (08:33→20:12)
[2022-01-26] MEDS: LANTUS PER UNIT CHARGE SQ SCH ×2 (08:34→20:17)
[2022-01-26] MEDS: cefTRIAXone SODIUM 2,000 MG in DEXTROSE 5% 50 ML IV SCH (08:36)
[2022-01-26] MEDS: VITAMIN B COMPLEX TAB PO SCH (08:37)
[2022-01-26] MEDS: MULTIVITAMIN TAB PO SCH (08:37)
[2022-01-26] MEDS: ASPIRIN 81 MG ECTAB PO SCH (08:37)
[2022-01-26] MEDS: SIMVASTATIN 10 MG TAB PO SCH (08:37)
[2022-01-26] MEDS: CINACALCET HCL 30 MG TAB PO SCH (08:37)
[2022-01-26] MEDS: MAGNESIUM OXIDE 400 MG TAB PO SCH ×2 (08:37→20:18)
[2022-01-26] MEDS: CLOPIDOGREL BISULFATE 75 MG TAB PO SCH (08:37)
[2022-01-26] MEDS: guaiFENesin 600 MG TABCR PO SCH ×2 (08:38→20:18)
[2022-01-26] MEDS: ENOXAPARIN INJ 40 MG/0.4 ML SYR SQ SCH (08:38)
[2022-01-26] MEDS: DOXYCYCLINE HYCLATE 100 MG CAP PO SCH ×2 (08:38→20:18)
[2022-01-26] MEDS: PANTOprazole 40 MG TAB PO SCH (08:38)
--- NOTE | 2022-01-26 10:12 | Neurology Progress Note ---
Date of Service January 26, 2022 Assessment & Plan (1) Acute CVA (cerebrovascular accident): (2) Weakness of right upper extremity: (3) Right homonymous hemianopsia: (4) Type 2 diabetes mellitus without complications: (5) Other and unspecified hyperlipidemia: (6) CHF (congestive heart failure): (7) Idiopathic polyneuropathy: Plan This patient has acute onset of right upper extremity weakness and clumsiness January 25. The face and leg seem to be relatively spared. clinically she is mildly improved today with her right upper extremity strength. MRI of the brain shows a 1.5 cm acute left frontal/parietal stroke which likely explains her right upper extremity weakness. In addition she had 2 other very small strokes of a little bit older nature (although still acute) in the right caudate and right cerebellar hemisphere. 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 I suspect aortic arch is the origin as the heart seems to be without clot or other abnormality. She does have scattered plaque throughout major vessels in her head and neck. The patient has a history of old right homonymous hemianopsia (partial ) from an old left occipital stroke seen on CT scan. She has longstanding diabetes, hypertension and dyslipidemia as risk factors for stroke. In addition she was extremely heavy cigarette smoker for almost 50 years, quitting in 2006 Currently she has congestive heart failure and pneumonia with microcytic (iron deficient) anemia. She is treated with ceftriaxone. 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 a sensory polyneuropathy could give her a sensory ataxia ( unsteady gait). Recommendations: 1. Continue 81 mg aspirin plus 75 mg clopidogrel daily For 3 weeks, then Plavix alone. I do not see any strong indication for anticoagulation in this patient despite the embolic pattern of stroke. 3. Control glucose as you are doing. hemoglobin A1c was 6.5. Aim for hemoglobin A1c of 6.0 Or better 4. Total cholesterol is 102 and triglycerides 71. She is not a high dose statin candidate, and with these numbers I would keep her on the current dose of simvastatin. 5. control blood pressure as you are doing, aiming for mean arterial pressure of 95-100. 6. physical and occupational therapy for the right upper extremity. Increase activity as able. she may be a rehabilitation hospital candidate when ready. Overall, I spent a total of 35 minutes with this case including review of records, review of MRI films, direct evaluation the patient bedside, and discussion of the case with the patient and RN at bedside, Dr. Smart in Radiology, and Dr. Madden, including differential diagnosis and treatment options. Admission and Anticipated Discharge Date Admission Date: January 22, 2022 Subjective The patient feels improved today compared to yesterday. She is moving her right upper extremity better and could actually feed herself some. Nursing reports no new issues or problems. Blood pressure is 157/59 with a pulse in the 90s. She is in normal sinus rhythm. She is afebrile. Glucose was 131 and white count was 13 with a hemoglobin of 8.4 hematocrit of 27.8. Echocardiogram showed some mild mitral stenosis, but no other abnormalities. Agitated saline showed no evidence of intra-atrial shunt and there was no evidence of embolic source. MRI of the brain revealed a 1.5 cm acute stroke he in the left frontoparietal junction but there were some smaller strokes seen in the right caudate and right cerebellum of an older nature. The pattern suggested emboli. I reviewed the MRI of the brain and CT angiography with Dr. Smart and he concurred that the pattern looks embolic. The aortic arch has significant plaque and this may be a source of emboli. Otherwise her vessels show no significant stenoses in the head or neck. Results & Data ([facility]) Vital Signs (Past 12 Hours) Vital Signs Temp Pulse Pulse Resp BP Pulse Ox O2 Del Method 01/26/22 09:00 98 H 01/26/22 09:00 Nasal Cannula 01/26/22 07:15 36.8 C 98 H 20 157/59 H 95 Nasal Cannula 01/26/22 04:09 37.4 C 97 H 22 145/59 H 94 Nasal Cannula O2 Flow Rate 01/26/22 09:00 01/26/22 09:00 3 01/26/22 07:15 4 01/26/22 04:09 4 Exam (Neuro) Physical Exam: She is awake and alert. Speech is without aphasia or dysarthria. Mood is normal and affect is appropriate. Thought processes are intact with good long and short-term memory. She is pleasant and cooperative. Extraocular eye muscles are intact without nystagmus. There is no facial droop. Tongue is midline. There is no ataxia with [id number] testing. The left upper extremity and both lower extremities have 5/5 strength bilaterally both proximally and distally. The right upper extremity has 4/5 strength proximally distally and there is clumsiness in the right hand. There are no abnormal involuntary movements. PG Care Time/CCT Total # of Minutes Spent Total Time Spent with Patient: Total time spent is greater than 50% in coordination of care (as documented) at patient's floor/unit and/or counseling patient: Coding Level of Care Code 57355 Subseq Hosp Care Lvl 3 Diagnoses Acute CVA (cerebrovascular accident) I63.9 Weakness of right upper extremity R29.898 Right homonymous hemianopsia H53.461 Type 2 diabetes mellitus without complications E11.9 Other and unspecified hyperlipidemia E78.5 CHF (congestive heart failure) I50.9 Idiopathic polyneuropathy G60.9 Time Spent (min) 35
--- NOTE | 2022-01-26 11:32 | Pharmacy Report ---
Pharmacy Glycemic Short Note 2 - Date of Service January 26, 2022 - Glycemic Short BSG Results (Last 24 hours): 01/25/22 01/25/22 01/25/22 11:51 16:31 20:19 POC Glucose 263 H 141 H 270 H 01/26/22 01/26/22 07:09 11:05 POC Glucose 131 H 208 H OUTPATIENT ANTIDIABETIC REGIMEN: * Novolin 70/30 - 75 units SC qAM, 55 units SC qPM * Metformin 1000 mg PO BIDM HbA1c pending ASSESSMENT: 01/26: * BSGs [phone]/dL the last 24h. Fasting within goal this AM, 131mg/dL. Patient received 52 units of basal and 32 units of bolus insulin yesterday. * Antibiotics continue, and tolerating diet * Given fasting within goal, will not titrate Lantus any further. Novolog tightened for better prandial coverage. 01/25: * BSGs uncontrolled [phone]/dL the last 24h. Received 50 units of basal yesterday and 35units of bolus. Fasting this AM 225mg/dL. * Continues on antibiotics and ordered diet * Plan to increase Lantus ~10% to 27 units BID starting tonight. Novolog parameters tightened to 20/6. 01/24: * BSGs [phone]/dL. Fasting this AM, 144mg/dL which is acceptable. Patient received 50 units of Lantus and 45 units of bolus insulin yesterday. Ordered and tolerating diet, continues on antibiotics. * Continue Lantus 25 units BID given fasting BSG within goal. Novolog parameters tightened with lunch today given elevated prandial BSG. 01/23: * LP is an 81 year old female admitted last evening (01/22) for acute respiratory failure (likely multifactorial) * Pharmacy consulted for glycemic management this morning, due to elevated BSG (283 mg/dL) * Patient uses 70/30 insulin at home, will use long-acting basal insulin in place of NPH for now * Initially will start with weight-based Novolog parameters, but may need to tighten based on BSG trends given significant outpatient insulin doses * Lunch BSG also elevated at 291 mg/dL - will give additional basal dose now and tighten Novolog further PLAN FOR INPATIENT GLYCEMIC CONTROL: * Hold outpatient oral diabetes medications * Basal insulin * Lantus 27 units SC BID * Bolus insulin * NovoLog per scale ACHS or Q6hrs while NPO * Goal Range: Low 110 mg/dL - High 140 mg/dL * Correction Factor: 15 mg/dL/unit * Nutritional / Prandial insulin per carb ratio of 1 unit per 5 grams CHO consumed * 00,04 checks this evening with same parameters
--- NOTE | 2022-01-26 12:25 | Hospitalist Progress Note ---
Date of Service January 26, 2022 Assessment & Plan (1) Acute respiratory failure with hypoxia: Plan: Multifactorial:Bilateral Pneumonia, Acute CHF echo: EF 60%, severe mitral annular calcification, mild mitral stenosis CXR on 01/25- B/l pulmonary edema [id number]. Plan: We will continue to hold her Lasix for today to allow for permissive hypertension given her recent stroke. Will resume Lasix tomorrow a.m. cardiology on board -Continue on ceftriaxone and doxycycline day 4. Continue for total of 7 days. Continue duo nebs every 6 hours scheduled. -Incentive spirometry Acute CVA, Likely Embolic right upper extremity weakness -- Developed symptoms on 01/25 night. --Brain MRI: There are 2 adjacent small foci of restricted diffusion within the left posterior frontal lobe with the largest on image 16 measuring 15 mm consistent with acute infarcts. There is a 7 mm focus of restricted diffusion within the right caudate head consistent with an acute infarct. There are 2 punctate foci of restricted diffusion within the right cerebellar hemisphere on images 4 and 7 consistent with acute lacunar infarcts. Mild motion artifact. There is an old small left occipital lobe infarct. This remains unchanged. -- CTA head and neck: Atherosclerotic plaque of the thoracic aortic arch and proximal great vessels. The study is motion degraded. Patency of the innominate and imaged subclavian arteries. The common carotid arteries are patent. There is mild atherosclerotic plaque of the right carotid bulb and proximal right ICA resulting in less than 50% stenosis. Moderate atherosclerotic plaque of the left carotid bulb and proximal left ICA also results in less than 50% stenosis. There is tortuosity of the distal cervical segment left ICA. Calcified plaque is noted within the cavernous, clinoid and supraclinoid segments. The middle and anterior cerebral arteries are patent. Dominant left vertebral artery. The vertebral arteries are widely patent. The right vertebral artery probably terminates into the right PICA. Basilar and posterior cerebral arteries are patent. Cerebral venous sinuses are patent. There is no abnormal intracranial enhancement. Moderate sized layering pleural effusions. Nonspecific mildly enlarged mediastinal and right hilar lymph nodes. Intralobular septal thickening with intermixed groundglass densities compatible with pulmonary edema. Heterogeneous partially calcified 2.1 cm right-sided thyroid nodule. The thyroid is enlarged. Degenerative changes of the spine. Plan: -Continue on aspirin and Plavix for 3 weeks and then Plavix alone after that. -Continue on permissive hypertension for now. Aim for normotensive from tomorrow. -Continue on simvastatin -Continue PT OT. Troponin elevation secondary to illness -- Up trended to 131 and down trended to 110. Hx CAD status post stent- Continue to aspirin Hypertension -- Losartan on hold in light of acute CVA Hyperlipidemia- statin Rx DM2 insulin requiring, p A1c of 6.19 August 2021 GERD, stable on regimen primary hyperparathyroidism, stable on Cinacalcet, patient refused surgery as per outpatient [facility] Endocrinology note from 2017 New onset anemia -hemoglobin 8 past tobacco abuse DVT prophylaxis. Lovenox subcu DNR Disposition Pending PT/OT in progress May need acute rehab Admission and Anticipated Discharge Date Admission Date: January 22, 2022 Subjective Patient seen and examined at bedside. She is sitting up on the bed; not in any acute distress. She feels that her right arm is stronger compared to yesterday. Telemetry shows normal sinus rhythm; no alarms overnight. Review of Systems Review of Systems: All systems reviewed & are unremarkable except as noted in Subjective Physical Exam Physical Exam: General- oriented x 3, not in distress, speaks in sentences with no effort or accessory muscle use Eyes- anicteric Neck- no JVD Lungs-bilateral crackles at bases. Heart- normal rate, regular rhythm; no murmurs Abdomen- normal bowel sounds, nondistended, soft, nontender Extremities- no pretibial edema, no calf tenderness Neuro- alert, oriented x 3; motor strength right upper extremity: 4/ 5, sensation 100% No other focal neurologic deficits noted Skin- warm & dry Results & Data Results & Data ([facility]) Vital Signs (Past 12 Hours) Vital Signs Temp Pulse Pulse Resp BP Pulse Ox O2 Del Method 01/26/22 11:20 37.0 C 96 H 22 136/55 L 91 Nasal Cannula 01/26/22 09:00 98 H 01/26/22 09:00 Nasal Cannula 01/26/22 07:15 36.8 C 98 H 20 157/59 H 95 Nasal Cannula 01/26/22 04:09 37.4 C 97 H 22 145/59 H 94 Nasal Cannula O2 Flow Rate 01/26/22 11:20 4 01/26/22 09:00 01/26/22 09:00 3 01/26/22 07:15 4 01/26/22 04:09 4 Laboratory Results Laboratory Results WBC 13.27 K/ul (4.8-10.8) H 01/25/22 05:21 RBC 4.04 M/uL (3.93-5.22) 01/25/22 05:21 Hgb 8.4 g/dl (12.0-16.0) L 01/25/22 05:21 Hct 27.8 % (34.1-44.9) L 01/25/22 05:21 MCV 68.8 fL (80.0-100.0) L 01/25/22 05:21 MCH 20.8 pg (25.0-34.0) L 01/25/22 05:21 MCHC 30.2 g/dL (32.0-36.0) L 01/25/22 05:21 RDW Std Deviation 52.6 fL (36.4-46.3) H 01/25/22 05:21 RDW Coeff of Vanita 22.2 % (11.5-14.5) H 01/25/22 05:21 Plt Count 285 K/uL (130-400) 01/25/22 05:21 MPV 10.3 fL (9.4-12.3) 01/25/22 05:21 Immature Gran % (Auto) 0.3 % 01/25/22 05:21 Neut % (Auto) 61.7 % 01/25/22 05:21 Lymph % (Auto) 22.3 % 01/25/22 05:21 [place] % (Auto) 11.4 % 01/25/22 05:21 Eos % (Auto) 3.2 % 01/25/22 05:21 Baso % (Auto) 1.1 % 01/25/22 05:21 Reticulocyte % (Auto) 2.3 % (0.5-2.0) H 01/22/22 17:55 Neut # (Auto) 8.19 K/uL (1.4-6.5) H 01/25/22 05:21 Lymph # (Auto) 2.96 K/uL (1.2-3.4) 01/25/22 05:21 [place] # (Auto) 1.51 K/uL (0.24-0.82) H 01/25/22 05:21 Eos # (Auto) 0.43 K/uL (0-0.50) 01/25/22 05:21 Baso # (Auto) 0.14 K/uL (0-0.2) 01/25/22 05:21 Reticulocyte # 0.10 10^6/uL (0.02-0.10) 01/22/22 17:55 Immature Gran # (Auto) 0.04 K/uL (0.00-0.02) H 01/25/22 05:21 Absolute Nucleated RBC 0.04 K/uL (0-0) H 01/25/22 05:21 Nucleated RBC % (auto) 0.3 % 01/25/22 05:21 Polychromasia 1+ 01/25/22 05:21 Anisocytosis Present 01/25/22 05:21 Microcytosis Present 01/23/22 05:36 Target Cells 1+ 01/25/22 05:21 Ovalocytes 1+ 01/22/22 17:55 Schistocytes 1+ 01/25/22 05:21 APTT 26.8 Seconds (21.0-31.0) 01/25/22 05:21 PTT Ratio 1.0 01/25/22 05:21 ABG pH 7.43 (7.35-7.45) 01/22/22 20:35 ABG pCO2 35 mmHg (35-46) 01/22/22 20:35 ABG pO2 64 mmHg (80-95) L 01/22/22 20:35 ABG HCO3 23 mmol/L (19-24) 01/22/22 20:35 ABG O2 Saturation 95.7 % (90-95) H 01/22/22 20:35 ABG Base Excess -0.6 mEq/L (-9-1.8) 01/22/22 20:35 Jose Test Pos (Pos) 01/22/22 20:35 Oxygen Given 4L 01/22/22 20:35 Sodium 134 mmol/L (136-145) L 01/25/22 05:21 Potassium 3.8 mmol/L (3.5-5.1) 01/25/22 05:21 Chloride 98 mmol/L (98-107) 01/25/22 05:21 Carbon Dioxide 28 mmol/L (21-32) 01/25/22 05:21 Anion Gap 8 (3-11) 01/25/22 05:21 BUN 21 mg/dl (6-23) 01/25/22 05:21 Creatinine 0.74 mg/dl (0.6-1.2) 01/25/22 05:21 Est Cr Clr Drug Dosing 62.3 ml/min 01/25/22 05:21 Est GFR ( Amer) 88.1 ml/min 01/25/22 05:21 Est GFR (Non-Af Amer) 76.0 ml/min 01/25/22 05:21 BUN/Creatinine Ratio 28.4 (10-20) H 01/25/22 05:21 Glucose 200 mg/dl (70-99(Fasting)) H 01/25/22 05:21 POC Glucose 208 mg/dl (70-99) H 01/26/22 11:05 Estimat Average Glucose 140 mg/dl 01/22/22 17:55 Hemoglobin A1c 6.5 % (4.5-5.6) H 01/22/22 17:55 Calcium 8.9 mg/dl (8.5-10.1) 01/25/22 05:21 Magnesium 1.3 mg/dl (1.7-2.4) L 01/25/22 05:21 Iron 12 mcg/dl (35-150) L 01/22/22 20:35 Transferrin 365 mg/dl (200-360) H 01/22/22 20:35 Ferritin 20.8 ng/ml (8-388) 01/22/22 20:35 Total Bilirubin 1.0 mg/dl (0.2-1.0) 01/22/22 17:55 AST 26 U/L (13-39) 01/22/22 17:55 ALT 17 U/L (7-52) 01/22/22 17:55 Alkaline Phosphatase 51 U/L (34-104) 01/22/22 17:55 Troponin I High Sens 110.9 pg/ml (0-14) H* 01/23/22 05:36 B-Natriuretic Peptide 142 pg/ml (0-100) H 01/22/22 17:55 Total Protein 7.2 gm/dl (6.0-8.3) 01/22/22 17:55 Albumin 3.6 gm/dl (3.4-5.0) 01/22/22 17:55 Globulin 3.6 gm/dl (2.5-4.0) 01/22/22 17:55 Albumin/Globulin Ratio 1.0 (0.9-2) 01/22/22 17:55 Triglycerides 71 mg/dl (0-150) 01/23/22 05:36 Cholesterol 102 mg/dl (0-200) 01/23/22 05:36 LDL Cholesterol, Calc 44 mg/dl 01/23/22 05:36 VLDL Cholesterol, Calc 14 mg/dl (0-30) 01/23/22 05:36 HDL Cholesterol 44 mg/dl 01/23/22 05:36 Cholesterol/HDL Ratio 2.3 (0-5) 01/23/22 05:36 Lipase 18 U/L (11-82) 01/22/22 17:55 Vitamin B12 692 pg/ml (180-914) 01/22/22 17:55 TSH 1.187 uIu/ml (0.300-4.500) 01/22/22 17:55 Urine Color Yellow 01/22/22 18:45 Urine Appearance Clear (Clear) 01/22/22 18:45 Urine pH 6.0 (4.5-7.5) 01/22/22 18:45 Ur Specific [place] 1.008 (1.000-1.030) 01/22/22 18:45 Urine Protein Negative (Negative) 01/22/22 18:45 Urine Glucose (UA) Negative (Negative) 01/22/22 18:45 Urine Ketones Negative (Negative) 01/22/22 18:45 Urine Blood Negative (Negative) 01/22/22 18:45 Urine Nitrite Negative (Negative) 01/22/22 18:45 Urine Bilirubin Negative (Negative) 01/22/22 18:45 Urine Urobilinogen Negative (Negative) 01/22/22 18:45 Ur Leukocyte Esterase 1+ (Negative) H 01/22/22 18:45 Urine WBC (Auto) 5-10 /hpf (0-5) H 01/22/22 18:45 Urine RBC (Auto) 0-4 /hpf (0-4) 01/22/22 18:45 U Hyaline Cast (Auto) 1-5 /lpf (0-5) 01/22/22 18:45 U Epithel Cells (Auto) 10-20 /lpf (0-5) H 01/22/22 18:45 Urine Bacteria (Auto) Negative (Negative) 01/22/22 18:45 SARS-CoV-2 (PCR) NEGATIVE (Negative) 01/22/22 18:30 Influenza Type A (PCR) Negative (Neg) 01/22/22 18:30 Influenza Type B (PCR) Negative (Neg) 01/22/22 18:30 RSV (RT-PCR) Negative (Neg) 01/22/22 18:30 Blood Type A Positive 01/22/22 20:35 Antibody Screen NEGATIVE 01/22/22 20:35 Impressions Chest X-Ray 01/24/22 09:45 XR chest 1V portable CLINICAL HISTORY: ff up chf, pneumonia COMPARISON STUDY: Chest radiograph January 23, 2022. FINDINGS: Cardiomegaly is again noted. There are small bilateral pleural effusions. Right pleural effusion has slightly increased. There are associated bibasilar opacities. Pulmonary edema similar to prior exam. No pneumothorax. IMPRESSION: Persistent pulmonary edema with small bilateral pleural effusions and associated bibasilar opacities. Right pleural effusion has slightly increased in size. ACT 112: Negative or not required by law. Electronically signed by: Karson Goddard M.D. 01/24/2022 11:[address] 01/25/22 04:[address] DOSE: HISTORY: Weakness. Stroke like symptoms. TECHNIQUE: Multiaxial CT images of the head were performed without the use of intravenous contrast. Automated exposure control was utilized for this study. A dose lowering technique was utilized adhering to the principles of ALARA. Comparison: Head CT 04/21/2017. Findings: The paranasal sinuses and mastoid air cells are clear. The calvarium and skull base are intact. There is no mass, hematoma, midline shift, acute infarct. White matter hypodensity is nonspecific but suggestive of microvascular ischemic change. The ventricles and sulci demonstrate moderate age-related involutional changes. Old left occipital lobe infarct, unchanged. Prominence of the extra-axial CSF spaces remain unchanged. Impression: No significant change compared to the prior study. No acute intracranial abnormality. ACT 112: Negative or not required by law. Electronically signed by: Pee Parker M.D. 01/25/2022 7:10 AM Head CTA 01/25/22 04:45 CT angio neck with con, CT angio head w con CLINICAL HISTORY: 81 years-old Female with cva. Acute weakness with strokelike symptoms COMPARISON STUDY: Head CT of same day TECHNIQUE: Following the IV administration of 112 mL of Optiray, CT angiogram of the head and neck was performed from the aortic arch to the skull vertex. Images are reviewed in the axial, sagittal, and coronal planes. 3-D MIPS images are created and assessed. IV contrast was administered without complication. All measurements were calculated based on NASCET criteria. A dose lowering technique was utilized adhering to the principles of ALARA. CT DOSE: 1302.27 mGy.cm FINDINGS: Involutional changes with prominent extra-axial spaces adjacent to the frontal lobes redemonstrated. White matter hypodensities suggestive of chronic microvascular ischemic disease. Chronic left occipital infarct. Atherosclerotic plaque of the thoracic aortic arch and proximal great vessels. The study is motion degraded. Patency of the innominate and imaged subclavian arteries. The common carotid arteries are patent. There is mild atherosclerotic plaque of the right carotid bulb and proximal right ICA resulting in less than 50% stenosis. Moderate atherosclerotic plaque of the left carotid bulb and proximal left ICA also results in less than 50% stenosis. There is tortuosity of the distal cervical segment left ICA. Calcified plaque is noted within the cavernous, clinoid and supraclinoid segments. The middle and anterior cerebral arteries are patent. Dominant left vertebral artery. The vertebral arteries are widely patent. The right vertebral artery probably terminates into the right PICA. Basilar and posterior cerebral arteries are patent. Cerebral venous sinuses are patent. There is no abnormal intracranial enhancement. Moderate sized layering pleural effusions. Nonspecific mildly enlarged mediastinal and right hilar lymph nodes. Intralobular septal thickening with intermixed groundglass densities compatible with pulmonary edema. Heterogeneous partially calcified 2.1 cm right-sided thyroid nodule. The thyroid is enlarged. Degenerative changes of the spine. IMPRESSION: 1. Atherosclerotic plaque as above. No aneurysm, dissection, high-grade stenosis or arterial occlusion. 2. Pulmonary edema with pleural effusions. ACT 112: Negative or not required by law. The above report was generated using voice recognition software. It may contain grammatical, syntax or spelling errors. Electronically signed by: Abhay Smart M.D. 01/25/2022 7:04 AM Neck CTA 01/25/22 04:46 CT angio neck with con, CT angio head w con CLINICAL HISTORY: 81 years-old Female with cva. Acute weakness with strokelike symptoms COMPARISON STUDY: Head CT of same day TECHNIQUE: Following the IV administration of 112 mL of Optiray, CT angiogram of the head and neck was performed from the aortic arch to the skull vertex. Images are reviewed in the axial, sagittal, and coronal planes. 3-D MIPS images are created and assessed. IV contrast was administered without complication. All measurements were calculated based on NASCET criteria. A dose lowering technique was utilized adhering to the principles of ALARA. CT DOSE: 1302.27 mGy.cm FINDINGS: Involutional changes with prominent extra-axial spaces adjacent to the frontal lobes redemonstrated. White matter hypodensities suggestive of chronic microvascular ischemic disease. Chronic left occipital infarct. Atherosclerotic plaque of the thoracic aortic arch and proximal great vessels. The study is motion degraded. Patency of the innominate and imaged subclavian arteries. The common carotid arteries are patent. There is mild atherosclerotic plaque of the right carotid bulb and proximal right ICA resulting in less than 50% stenosis. Moderate atherosclerotic plaque of the left carotid bulb and proximal left ICA also results in less than 50% stenosis. There is tortuosity of the distal cervical segment left ICA. Calcified plaque is noted within the cavernous, clinoid and supraclinoid segments. The middle and anterior cerebral arteries are patent. Dominant left vertebral artery. The vertebral arteries are widely patent. The right vertebral artery probably terminates into the right PICA. Basilar and posterior cerebral arteries are patent. Cerebral venous sinuses are patent. There is no abnormal intracranial enhancement. Moderate sized layering pleural effusions. Nonspecific mildly enlarged mediastinal and right hilar lymph nodes. Intralobular septal thickening with intermixed groundglass densities compatible with pulmonary edema. Heterogeneous partially calcified 2.1 cm right-sided thyroid nodule. The thyroid is enlarged. Degenerative changes of the spine. IMPRESSION: 1. Atherosclerotic plaque as above. No aneurysm, dissection, high-grade stenosis or arterial occlusion. 2. Pulmonary edema with pleural effusions. ACT 112: Negative or not required by law. The above report was generated using voice recognition software. It may contain grammatical, syntax or spelling errors. Electronically signed by: Abhay Smart M.D. 01/25/2022 7:04 AM Brain MRI 01/25/22 06:23 Brain MRI WITHOUT CONTRAST HISTORY: Acute onset of right-sided weakness. TECHNIQUE: Multiplanar multisequence MRI of the brain was performed without the use of contrast. COMPARISON STUDY: Head CT 01/25/2022. FINDINGS: There are 2 adjacent small foci of restricted diffusion within the left posterior frontal lobe with the largest on image 16 measuring 15 mm consistent with acute infarcts. There is a 7 mm focus of restricted diffusion within the right caudate head consistent with an acute infarct. There are 2 punctate foci of restricted diffusion within the right cerebellar hemisphere on images 4 and 7 consistent with acute lacunar infarcts. Mild motion artifact. There is an old small left occipital lobe infarct. This remains unchanged. The major vascular flow-voids at the skull base are well-maintained. Evidence for prior bilateral lens repair. Moderate atrophic changes again noted within the brain. There is no mass, hematoma, midline shift. Prominence of the extra-axial spaces persists and may be due to the volume loss. Paravertebral white matter T2 hyperintensity favors mild microvascular ischemic change. IMPRESSION: 1. A few scattered small acute infarcts as described above. 2. Moderate atrophic changes with prominence of the extra axial spaces. This r emains unchanged. ACT 112: Negative or not required by law. Electronically signed by: Pee Parker M.D. 01/25/2022 11:46 AM
--- NOTE | 2022-01-26 18:34 | Cardiology Progress Note ---
Date of Service January 26, 2022 Assessment & Plan (1) Acute heart failure with preserved ejection fraction (HFpEF): Plan: * Metoprolol, losartan and furosemide on hold, with plan to permit some degree of hypertension given stroke event. Resume metoprolol. Resume furosemide at lower dose, 40 mg IV daily. (2) Mitral stenosis: Plan: * Treat medically, as above. (3) Acute respiratory failure with hypoxia: Plan: * Continue oxygen supplementation, Rocephin, doxycycline. (4) Microcytic anemia: Plan: * Hemoglobin stable. Wanted to keep an eye on things given treatment with aspirin and clopidogrel. (5) Muscle weakness of right arm: Plan: * MRI imaging consistent with stroke. With 1.5 cm acute left frontal/parietal stroke on MRI. With other subtle abnormalities consistent with embolic stroke. No atrial fibrillation on telemetry. Continue plans for daily aspirin indefinitely. Clopidogrel x3 weeks. If develops atrial fibrillation, will transition to aspirin plus anticoagulation, Coumadin likely agent of choice given calcification of mitral valve with mitral stenosis. Admission and Anticipated Discharge Date Admission Date: January 22, 2022 Subjective Patient seen in cardiology follow-up of shortness of breath. She notes that her strength in her right arm as well as the coordination has improved. Is not quite back to her baseline normal, but much improved compared to yesterday and she is pleased about this. Telemetry reveals sinus rhythm in the 90s. Review of Systems Review of Systems: All systems reviewed & are unremarkable except as noted in HPI & below Physical Exam Constitutional: WD/WN, vitals as above Cardiovascular: Rate/Rhythm: regular rate Heart Sounds: no murmur Extremities: no edema Gastrointestinal (Abdomen): normal bowel sounds, soft, nontender, no hepatosplenomegaly Neurologic: PERRL, EOMI, accommodation nl, no face palsy, no dysarthria Results & Data ([facility]) Vital Signs (Past 12 Hours) Vital Signs Temp Pulse Pulse Resp BP Pulse Ox O2 Del Method 01/26/22 16:00 94 H 01/26/22 11:20 37.0 C 96 H 22 136/55 L 91 Nasal Cannula 01/26/22 09:00 98 H 01/26/22 09:00 Nasal Cannula 01/26/22 07:15 36.8 C 98 H 20 157/59 H 95 Nasal Cannula O2 Flow Rate 01/26/22 16:00 01/26/22 11:20 4 01/26/22 09:00 01/26/22 09:00 3 01/26/22 07:15 4 Laboratory Results Intake and Output 01/26/22 01/26/22 01/26/22 06:59 14:59 22:59 Intake Total 90 / 1155 70 / 70 Output Total 225 / 225 Balance / 852 -155 / -155 Intake: IV 70 / 70 cefTRIAXone SODIUM 2,000 mg In 70 / 70 Dextrose 5% 50 ml @ 100 mls/hr IV DAILY [facility] Rx#:[id number] Oral Output: Urine 225 / 225 Other: Weight 85.6 kg Weight Measurement Method Built in [facility]
[2022-01-26] MEDS: ALBUT/IPRATROP 3MG/0.5MG NEB 3 ML VIAL NEB SCH (19:15)
[2022-01-26] MEDS: METOPROLOL TARTRATE 25 MG TAB PO SCH (21:16)
[2022-01-27] MEDS: ALBUT/IPRATROP 3MG/0.5MG NEB 3 ML VIAL NEB SCH ×4 (00:06→19:19)
[2022-01-27 06:36] LABS: Basophils # (auto) 0.14 K/uL (0-0.2); Basophils % (auto) 1.3 %; Eosinophils # (auto) 0.83 K/uL (0-0.50); Eosinophils % (auto) 7.4 %; Hematocrit (blood only) 26.2 % (34.1-44.9); Hemoglobin 8.1 g/dl (12.0-16.0); Immature Granulocytes # (auto) 0.04 K/uL (0.00-0.02); Immature Granulocytes % (auto) 0.4 %; Lymphocytes % (auto) 25.1 %; Mean Corpuscular Hemoglobin 20.7 pg (25.0-34.0); Mean Corpuscular Hgb Conc 30.9 g/dL (32.0-36.0); Mean Corpuscular Volume 66.8 fL (80.0-100.0); Monocytes # (auto) 1.58 K/uL (0.24-0.82); Monocytes % (auto) 14.2 %; Neutrophils # (auto) 5.77 K/uL (1.4-6.5); Neutrophils % (auto) 51.6 %; Nucleated RBC # (auto) 0.02 K/uL (0-0); Nucleated RBC % (auto) 0.2 %; RDW Coefficient of Variation 21.8 % (11.5-14.5); RDW Standard Deviation 50.5 fL (36.4-46.3); Red Blood Count 3.92 M/uL (3.93-5.22); White Blood Count 11.16 K/ul (4.8-10.8)
[2022-01-27 06:55] LABS: BUN Creatinine Ratio 30.2 (10-20); Calcium 8.1 mg/dl (8.5-10.1); Creatinine Clr Calc Pharmacy 86.7 ml/min; Est GFR (African American) 103.2 ml/min; Potassium 3.9 mmol/L (3.5-5.1)
[2022-01-27 06:59] LABS: Acanthocytes 1+; Anisocytosis Present; Echinocytes 1+; Mean Platelet Volume 10.3 fL (9.4-12.3); Platelet Count 271 K/uL (130-400); Polychromasia 1+
[2022-01-27] MEDS: ASPIRIN 81 MG ECTAB PO SCH (09:01)
[2022-01-27] MEDS: CLOPIDOGREL BISULFATE 75 MG TAB PO SCH (09:02)
[2022-01-27] MEDS: CINACALCET HCL 30 MG TAB PO SCH (09:02)
[2022-01-27] MEDS: ENOXAPARIN INJ 40 MG/0.4 ML SYR SQ SCH (09:02)
[2022-01-27] MEDS: DOXYCYCLINE HYCLATE 100 MG CAP PO SCH ×2 (09:02→20:24)
[2022-01-27] MEDS: guaiFENesin 600 MG TABCR PO SCH ×2 (09:05→20:23)
[2022-01-27] MEDS: FUROSEMIDE 40 MG/4 ML VIAL IV SCH (09:05)
[2022-01-27] MEDS: PANTOprazole 40 MG TAB PO SCH (09:06)
[2022-01-27] MEDS: SIMVASTATIN 10 MG TAB PO SCH (09:06)
[2022-01-27] MEDS: MAGNESIUM OXIDE 400 MG TAB PO SCH ×2 (09:06→20:24)
[2022-01-27] MEDS: METOPROLOL TARTRATE 25 MG TAB PO SCH ×2 (09:06→20:23)
[2022-01-27] MEDS: MULTIVITAMIN TAB PO SCH (09:06)
[2022-01-27] MEDS: VITAMIN B COMPLEX TAB PO SCH (09:07)
[2022-01-27] MEDS: INSULIN ASPART PER UNIT SC SCH ×4 (09:26→20:24)
[2022-01-27] MEDS: LANTUS PER UNIT CHARGE SQ SCH ×2 (09:53→20:24)
[2022-01-27] MEDS: cefTRIAXone SODIUM 2,000 MG in DEXTROSE 5% 50 ML IV SCH (10:17)
--- NOTE | 2022-01-27 13:39 | Hospitalist Progress Note ---
Date of Service January 27, 2022 Assessment & Plan (1) Acute respiratory failure with hypoxia: Plan: Multifactorial:Bilateral Pneumonia, Acute CHF echo: EF 60%, severe mitral annular calcification, mild mitral stenosis CXR on 01/25- B/l pulmonary edema [id number]. Plan: Restarted on Lasix at 40 mg once daily IV. Continue on metoprolol; still holding off on losartan. -Continue on ceftriaxone and doxycycline day 5. Continue for total of 7 days. Continue duo nebs every 6 hours scheduled. -Incentive spirometry Acute CVA, Likely Embolic right upper extremity weakness -- Developed symptoms on 01/25 night. --Brain MRI: There are 2 adjacent small foci of restricted diffusion within the left posterior frontal lobe with the largest on image 16 measuring 15 mm consistent with acute infarcts. There is a 7 mm focus of restricted diffusion within the right caudate head consistent with an acute infarct. There are 2 punctate foci of restricted diffusion within the right cerebellar hemisphere on images 4 and 7 consistent with acute lacunar infarcts. Mild motion artifact. There is an old small left occipital lobe infarct. This remains unchanged. -- CTA head and neck: Atherosclerotic plaque of the thoracic aortic arch and proximal great vessels. The study is motion degraded. Patency of the innominate and imaged subclavian arteries. The common carotid arteries are patent. There is mild atherosclerotic plaque of the right carotid bulb and proximal right ICA resulting in less than 50% stenosis. Moderate atherosclerotic plaque of the left carotid bulb and proximal left ICA also results in less than 50% stenosis. There is tortuosity of the distal cervical segment left ICA. Calcified plaque is noted within the cavernous, clinoid and supraclinoid segments. The middle and anterior cerebral arteries are patent. Dominant left vertebral artery. The vertebral arteries are widely patent. The right vertebral artery probably terminates into the right PICA. Basilar and posterior cerebral arteries are patent. Cerebral venous sinuses are patent. There is no abnormal intracranial enhancement. Moderate sized layering pleural effusions. Nonspecific mildly enlarged mediastinal and right hilar lymph nodes. Intralobular septal thickening with intermixed groundglass densities compatible with pulmonary edema. Heterogeneous partially calcified 2.1 cm right-sided thyroid nodule. The thyroid is enlarged. Degenerative changes of the spine. Plan: -Continue on aspirin and Plavix for 3 weeks and then Plavix alone after that. -Resumed Lasix and metoprolol today after period of permissive hypertension for last 48 hours. -Continue on simvastatin -Continue PT OT. Troponin elevation secondary to illness -- Up trended to 131 and down trended to 110. Hx CAD status post stent- Continue to aspirin Hypertension --on metoprolol, losartan on hold. Hyperlipidemia- statin Rx DM2 insulin requiring, p A1c of 6.19 August 2021 GERD, stable on regimen primary hyperparathyroidism, stable on Cinacalcet, patient refused surgery as per outpatient G Endocrinology note from 2017 New onset anemia -hemoglobin 8 past tobacco abuse DVT prophylaxis. Lovenox subcu DNR Disposition Pending PT/OT in progress May need acute rehab. Patient strongly prefers to return back home. She lives with her . She is agreeable to go to rehab if her finances allow her to. Discussed with employment evaluator/case manager. Patient to speak with [facility]. Admission and Anticipated Discharge Date Admission Date: January 22, 2022 Subjective Patient seen and examined at bedside. She is sitting up on the chair comfortably. Her oxygen requirement is down to 2 L/min. Telemetry shows normal sinus rhythm; no arrhythmias noted overnight. Review of Systems Review of Systems: All systems reviewed & are unremarkable except as noted in Subjective Physical Exam Physical Exam: General- oriented x 3, not in distress, speaks in sentences with no effort or accessory muscle use Eyes- anicteric Neck- no JVD Lungs-bilateral crackles at bases. Heart- normal rate, regular rhythm; no murmurs Abdomen- normal bowel sounds, nondistended, soft, nontender Extremities- no pretibial edema, no calf tenderness Neuro- alert, oriented x 3; motor strength right upper extremity: 4/ 5, sensation 100% No other focal neurologic deficits noted Skin- warm & dry Results & Data Results & Data ([place]) Vital Signs (Past 12 Hours) Vital Signs Temp Pulse Pulse Resp BP Pulse Ox O2 Del Method 01/27/22 13:16 78 14 98 Nasal Cannula 01/27/22 11:36 36.8 C 81 16 124/54 L 94 Nasal Cannula 01/27/22 07:53 36.8 C 90 18 138/58 L 94 Nasal Cannula 01/27/22 07:11 89 15 97 Nasal Cannula 01/27/22 04:09 37.1 C 88 18 112/38 L 97 Nasal Cannula O2 Flow Rate 01/27/22 13:16 2 01/27/22 11:36 1.5 01/27/22 07:53 4 01/27/22 07:11 4 01/27/22 04:09 4.0 Laboratory Results Laboratory Results WBC 11.16 K/ul (4.8-10.8) H 01/27/22 06:08 RBC 3.92 M/uL (3.93-5.22) L 01/27/22 06:08 Hgb 8.1 g/dl (12.0-16.0) L 01/27/22 06:08 Hct 26.2 % (34.1-44.9) L 01/27/22 06:08 MCV 66.8 fL (80.0-100.0) L 01/27/22 06:08 MCH 20.7 pg (25.0-34.0) L 01/27/22 06:08 MCHC 30.9 g/dL (32.0-36.0) L 01/27/22 06:08 RDW Std Deviation 50.5 fL (36.4-46.3) H 01/27/22 06:08 RDW Coeff of Vanita 21.8 % (11.5-14.5) H 01/27/22 06:08 Plt Count 271 K/uL (130-400) 01/27/22 06:08 MPV 10.3 fL (9.4-12.3) 01/27/22 06:08 Immature Gran % (Auto) 0.4 % 01/27/22 06:08 Neut % (Auto) 51.6 % 01/27/22 06:08 Lymph % (Auto) 25.1 % 01/27/22 06:08 [place] % (Auto) 14.2 % 01/27/22 06:08 Eos % (Auto) 7.4 % 01/27/22 06:08 Baso % (Auto) 1.3 % 01/27/22 06:08 Reticulocyte % (Auto) 2.3 % (0.5-2.0) H 01/22/22 17:55 Neut # (Auto) 5.77 K/uL (1.4-6.5) 01/27/22 06:08 Lymph # (Auto) 2.80 K/uL (1.2-3.4) 01/27/22 06:08 [place] # (Auto) 1.58 K/uL (0.24-0.82) H 01/27/22 06:08 Eos # (Auto) 0.83 K/uL (0-0.50) H 01/27/22 06:08 Baso # (Auto) 0.14 K/uL (0-0.2) 01/27/22 06:08 Reticulocyte # 0.10 10^6/uL (0.02-0.10) 01/22/22 17:55 Immature Gran # (Auto) 0.04 K/uL (0.00-0.02) H 01/27/22 06:08 Absolute Nucleated RBC 0.02 K/uL (0-0) H 01/27/22 06:08 Nucleated RBC % (auto) 0.2 % 01/27/22 06:08 Polychromasia 1+ 01/27/22 06:08 Anisocytosis Present 01/27/22 06:08 Microcytosis Present 01/23/22 05:36 Target Cells 1+ 01/25/22 05:21 Ovalocytes 1+ 01/22/22 17:55 Echinocytes 1+ 01/27/22 06:08 Acanthocytes (Spur) 1+ 01/27/22 06:08 Schistocytes 1+ 01/25/22 05:21 APTT 26.8 Seconds (21.0-31.0) 01/25/22 05:21 PTT Ratio 1.0 01/25/22 05:21 ABG pH 7.43 (7.35-7.45) 01/22/22 20:35 ABG pCO2 35 mmHg (35-46) 01/22/22 20:35 ABG pO2 64 mmHg (80-95) L 01/22/22 20:35 ABG HCO3 23 mmol/L (19-24) 01/22/22 20:35 ABG O2 Saturation 95.7 % (90-95) H 01/22/22 20:35 ABG Base Excess -0.6 mEq/L (-9-1.8) 01/22/22 20:35 Jose Test Pos (Pos) 01/22/22 20:35 Oxygen Given 4L 01/22/22 20:35 Sodium 136 mmol/L (136-145) 01/27/22 06:08 Potassium 3.9 mmol/L (3.5-5.1) 01/27/22 06:08 Chloride 102 mmol/L (98-107) 01/27/22 06:08 Carbon Dioxide 28 mmol/L (21-32) 01/27/22 06:08 Anion Gap 6 (3-11) 01/27/22 06:08 BUN 16 mg/dl (6-23) 01/27/22 06:08 Creatinine 0.53 mg/dl (0.6-1.2) L 01/27/22 06:08 Est Cr Clr Drug Dosing 86.7 ml/min 01/27/22 06:08 Est GFR ( Amer) 103.2 ml/min 01/27/22 06:08 Est GFR (Non-Af Amer) 89.0 ml/min 01/27/22 06:08 BUN/Creatinine Ratio 30.2 (10-20) H 01/27/22 06:08 Glucose 145 mg/dl (70-99(Fasting)) H 01/27/22 06:08 POC Glucose 214 mg/dl (70-99) H 01/27/22 12:38 Estimat Average Glucose 140 mg/dl 01/22/22 17:55 Hemoglobin A1c 6.5 % (4.5-5.6) H 01/22/22 17:55 Calcium 8.1 mg/dl (8.5-10.1) L 01/27/22 06:08 Magnesium 1.3 mg/dl (1.7-2.4) L 01/25/22 05:21 Iron 12 mcg/dl (35-150) L 01/22/22 20:35 Transferrin 365 mg/dl (200-360) H 01/22/22 20:35 Ferritin 20.8 ng/ml (8-388) 01/22/22 20:35 Total Bilirubin 1.0 mg/dl (0.2-1.0) 01/22/22 17:55 AST 26 U/L (13-39) 01/22/22 17:55 ALT 17 U/L (7-52) 01/22/22 17:55 Alkaline Phosphatase 51 U/L (34-104) 01/22/22 17:55 Troponin I High Sens 110.9 pg/ml (0-14) H* 01/23/22 05:36 B-Natriuretic Peptide 142 pg/ml (0-100) H 01/22/22 17:55 Total Protein 7.2 gm/dl (6.0-8.3) 01/22/22 17:55 Albumin 3.6 gm/dl (3.4-5.0) 01/22/22 17:55 Globulin 3.6 gm/dl (2.5-4.0) 01/22/22 17:55 Albumin/Globulin Ratio 1.0 (0.9-2) 01/22/22 17:55 Triglycerides 71 mg/dl (0-150) 01/23/22 05:36 Cholesterol 102 mg/dl (0-200) 01/23/22 05:36 LDL Cholesterol, Calc 44 mg/dl 01/23/22 05:36 VLDL Cholesterol, Calc 14 mg/dl (0-30) 01/23/22 05:36 HDL Cholesterol 44 mg/dl 01/23/22 05:36 Cholesterol/HDL Ratio 2.3 (0-5) 01/23/22 05:36 Lipase 18 U/L (11-82) 01/22/22 17:55 Vitamin B12 692 pg/ml (180-914) 01/22/22 17:55 TSH 1.187 uIu/ml (0.300-4.500) 01/22/22 17:55 Urine Color Yellow 01/22/22 18:45 Urine Appearance Clear (Clear) 01/22/22 18:45 Urine pH 6.0 (4.5-7.5) 01/22/22 18:45 Ur Specific [place] 1.008 (1.000-1.030) 01/22/22 18:45 Urine Protein Negative (Negative) 01/22/22 18:45 Urine Glucose (UA) Negative (Negative) 01/22/22 18:45 Urine Ketones Negative (Negative) 01/22/22 18:45 Urine Blood Negative (Negative) 01/22/22 18:45 Urine Nitrite Negative (Negative) 01/22/22 18:45 Urine Bilirubin Negative (Negative) 01/22/22 18:45 Urine Urobilinogen Negative (Negative) 01/22/22 18:45 Ur Leukocyte Esterase 1+ (Negative) H 01/22/22 18:45 Urine WBC (Auto) 5-10 /hpf (0-5) H 01/22/22 18:45 Urine RBC (Auto) 0-4 /hpf (0-4) 01/22/22 18:45 U Hyaline Cast (Auto) 1-5 /lpf (0-5) 01/22/22 18:45 U Epithel Cells (Auto) 10-20 /lpf (0-5) H 01/22/22 18:45 Urine Bacteria (Auto) Negative (Negative) 01/22/22 18:45 SARS-CoV-2 (PCR) NEGATIVE (Negative) 01/22/22 18:30 Influenza Type A (PCR) Negative (Neg) 01/22/22 18:30 Influenza Type B (PCR) Negative (Neg) 01/22/22 18:30 RSV (RT-PCR) Negative (Neg) 01/22/22 18:30 Blood Type A Positive 01/22/22 20:35 Antibody Screen NEGATIVE 01/22/22 20:35 Impressions Chest X-Ray 01/24/22 09:45 XR chest 1V portable CLINICAL HISTORY: ff up chf, pneumonia COMPARISON STUDY: Chest radiograph January 23, 2022. FINDINGS: Cardiomegaly is again noted. There are small bilateral pleural effusions. Right pleural effusion has slightly increased. There are associated bibasilar opacities. Pulmonary edema similar to prior exam. No pneumothorax. IMPRESSION: Persistent pulmonary edema with small bilateral pleural effusions and associated bibasilar opacities. Right pleural effusion has slightly increased in size. ACT 112: Negative or not required by law. Electronically signed by: Karson Goddard M.D. 01/24/2022 11:[address] 01/25/22 04:[address] DOSE: HISTORY: Weakness. Stroke like symptoms. TECHNIQUE: Multiaxial CT images of the head were performed without the use of intravenous contrast. Automated exposure control was utilized for this study. A dose lowering technique was utilized adhering to the principles of ALARA. Comparison: Head CT 04/21/2017. Findings: The paranasal sinuses and mastoid air cells are clear. The calvarium and skull base are intact. There is no mass, hematoma, midline shift, acute infarct. White matter hypodensity is nonspecific but suggestive of microvascular ischemic change. The ventricles and sulci demonstrate moderate age-related involutional changes. Old left occipital lobe infarct, unchanged. Prominence of the extra-axial CSF spaces remain unchanged. Impression: No significant change compared to the prior study. No acute intracranial abnormality. ACT 112: Negative or not required by law. Electronically signed by: Pee Parker M.D. 01/25/2022 7:10 AM Head CTA 01/25/22 04:45 CT angio neck with con, CT angio head w con CLINICAL HISTORY: 81 years-old Female with cva. Acute weakness with strokelike symptoms COMPARISON STUDY: Head CT of same day TECHNIQUE: Following the IV administration of 112 mL of Optiray, CT angiogram of the head and neck was performed from the aortic arch to the skull vertex. Images are reviewed in the axial, sagittal, and coronal planes. 3-D MIPS images are created and assessed. IV contrast was administered without complication. All measurements were calculated based on NASCET criteria. A dose lowering technique was utilized adhering to the principles of ALARA. CT DOSE: 1302.27 mGy.cm FINDINGS: Involutional changes with prominent extra-axial spaces adjacent to the frontal lobes redemonstrated. White matter hypodensities suggestive of chronic microvascular ischemic disease. Chronic left occipital infarct. Atherosclerotic plaque of the thoracic aortic arch and proximal great vessels. The study is motion degraded. Patency of the innominate and imaged subclavian arteries. The common carotid arteries are patent. There is mild atherosclerotic plaque of the right carotid bulb and proximal right ICA resulting in less than 50% stenosis. Moderate atherosclerotic plaque of the left carotid bulb and proximal left ICA also results in less than 50% stenosis. There is tortuosity of the distal cervical segment left ICA. Calcified plaque is noted within the cavernous, clinoid and supraclinoid segments. The middle and anterior cerebral arteries are patent. Dominant left vertebral artery. The vertebral arteries are widely patent. The right vertebral artery probably terminates into the right PICA. Basilar and posterior cerebral arteries are patent. Cerebral venous sinuses are patent. There is no abnormal intracranial enhancement. Moderate sized layering pleural effusions. Nonspecific mildly enlarged mediastinal and right hilar lymph nodes. Intralobular septal thickening with intermixed groundglass densities compatible with pulmonary edema. Heterogeneous partially calcified 2.1 cm right-sided thyroid nodule. The thyroid is enlarged. Degenerative changes of the spine. IMPRESSION: 1. Atherosclerotic plaque as above. No aneurysm, dissection, high-grade stenosis or arterial occlusion. 2. Pulmonary edema with pleural effusions. ACT 112: Negative or not required by law. The above report was generated using voice recognition software. It may contain grammatical, syntax or spelling errors. Electronically signed by: Abhay Smart M.D. 01/25/2022 7:04 AM Neck CTA 01/25/22 04:46 CT angio neck with con, CT angio head w con CLINICAL HISTORY: 81 years-old Female with cva. Acute weakness with strokelike symptoms COMPARISON STUDY: Head CT of same day TECHNIQUE: Following the IV administration of 112 mL of Optiray, CT angiogram of the head and neck was performed from the aortic arch to the skull vertex. Images are reviewed in the axial, sagittal, and coronal planes. 3-D MIPS images are created and assessed. IV contrast was administered without complication. All measurements were calculated based on NASCET criteria. A dose lowering technique was utilized adhering to the principles of ALARA. CT DOSE: 1302.27 mGy.cm FINDINGS: Involutional changes with prominent extra-axial spaces adjacent to the frontal lobes redemonstrated. White matter hypodensities suggestive of chronic microvascular ischemic disease. Chronic left occipital infarct. Atherosclerotic plaque of the thoracic aortic arch and proximal great vessels. The study is motion degraded. Patency of the innominate and imaged subclavian arteries. The common carotid arteries are patent. There is mild atherosclerotic plaque of the right carotid bulb and proximal right ICA resulting in less than 50% stenosis. Moderate atherosclerotic plaque of the left carotid bulb and proximal left ICA also results in less than 50% stenosis. There is tortuosity of the distal cervical segment left ICA. Calcified plaque is noted within the cavernous, clinoid and supraclinoid segments. The middle and anterior cerebral arteries are patent. Dominant left vertebral artery. The vertebral arteries are widely patent. The right vertebral artery probably terminates into the right PICA. Basilar and posterior cerebral arteries are patent. Cerebral venous sinuses are patent. There is no abnormal intracranial enhancement. Moderate sized layering pleural effusions. Nonspecific mildly enlarged mediastinal and right hilar lymph nodes. Intralobular septal thickening with intermixed groundglass densities compatible with pulmonary edema. Heterogeneous partially calcified 2.1 cm right-sided thyroid nodule. The thyroid is enlarged. Degenerative changes of the spine. IMPRESSION: 1. Atherosclerotic plaque as above. No aneurysm, dissection, high-grade stenosis or arterial occlusion. 2. Pulmonary edema with pleural effusions. ACT 112: Negative or not required by law. The above report was generated using voice recognition software. It may contain grammatical, syntax or spelling errors. Electronically signed by: Abhay Smart M.D. 01/25/2022 7:04 AM Brain MRI 01/25/22 06:23 Brain MRI WITHOUT CONTRAST HISTORY: Acute onset of right-sided weakness. TECHNIQUE: Multiplanar multisequence MRI of the brain was performed without the use of contrast. COMPARISON STUDY: Head CT 01/25/2022. FINDINGS: There are 2 adjacent small foci of restricted diffusion within the left posterior frontal lobe with the largest on image 16 measuring 15 mm consistent with acute infarcts. There is a 7 mm focus of restricted diffusion within the right caudate head consistent with an acute infarct. There are 2 punctate foci of restricted diffusion within the right cerebellar hemisphere on images 4 and 7 consistent with acute lacunar infarcts. Mild motion artifact. There is an old small left occipital lobe infarct. This remains unchanged. The major vascular flow-voids at the skull base are well-maintained. Evidence for p rior bilateral lens repair. Moderate atrophic changes again noted within the brain. There is no mass, hematoma, midline shift. Prominence of the extra-axial spaces persists and may be due to the volume loss. Paravertebral white matter T2 hyperintensity favors mild microvascular ischemic change. IMPRESSION: 1. A few scattered small acute infarcts as described above. 2. Moderate atrophic changes with prominence of the extra axial spaces. This remains unchanged. ACT 112: Negative or not required by law. Electronically signed by: Pee Parker M.D. 01/25/2022 11:46 AM
--- NOTE | 2022-01-27 14:48 | Cardiology Progress Note ---
Date of Service January 27, 2022 Assessment & Plan (1) Acute heart failure with preserved ejection fraction (HFpEF): Plan: * Continue metoprolol, furosemide 40 mg IV daily. * Losartan remains on hold (2) Mitral stenosis: Plan: * Treat medically, as above. (3) Acute respiratory failure with hypoxia: Plan: * Continue oxygen supplementation, Rocephin, doxycycline. (4) Microcytic anemia: Plan: * Hemoglobin stable. Wanted to keep an eye on things given treatment with aspirin and clopidogrel. (5) Acute CVA (cerebrovascular accident): Plan: * Neurology input noted and appreciated, continue aspirin, clopidogrel, simvastatin DVT prophylaxis: Subcutaneous Lovenox Admission and Anticipated Discharge Date Admission Date: January 22, 2022 Subjective Patient seen in cardiology follow-up of chief complaint of shortness of breath. Oxygen requirement slightly improved today, down to 2 L nasal cannula from 4 L, oxygen saturation 98%. Blood pressure stable. Patient able to feed herself with her right arm. Telemetry reveals sinus rhythm without atrial fibrillation. Physical Exam Constitutional: WD/WN, vitals as above Cardiovascular: Rate/Rhythm: regular rate Heart Sounds: no murmur Extremities: no edema Gastrointestinal (Abdomen): normal bowel sounds, soft, nontender, no hepatosplenomegaly Neurologic: PERRL, EOMI, accommodation nl, no face palsy, no dysarthria Results & Data ([facility]) Vital Signs (Past 12 Hours) Vital Signs Temp Pulse Pulse Resp BP Pulse Ox O2 Del Method 01/27/22 11:00 93 Nasal Cannula 01/27/22 10:00 Nasal Cannula 01/27/22 07:00 97 Nasal Cannula 01/27/22 13:16 78 14 98 Nasal Cannula 01/27/22 11:36 36.8 C 81 16 124/54 L 94 Nasal Cannula 01/27/22 07:53 36.8 C 90 18 138/58 L 94 Nasal Cannula 01/27/22 07:11 89 15 97 Nasal Cannula 01/27/22 04:09 37.1 C 88 18 112/38 L 97 Nasal Cannula O2 Flow Rate 01/27/22 11:00 2 01/27/22 10:00 2 01/27/22 07:00 3 01/27/22 13:16 2 01/27/22 11:36 1.5 01/27/22 07:53 4 09/15/22 07:11 4 01/27/22 04:09 4.0 Laboratory Results CBC 01/27/22 Range/Units 06:08 WBC 11.16 H (4.8-10.8) K/ul RBC 3.92 L (3.93-5.22) M/uL Hgb 8.1 L (12.0-16.0) g/dl Hct 26.2 L (34.1-44.9) % Plt Count 271 (130-400) K/uL Neut # (Auto) 5.77 (1.4-6.5) K/uL Lymph # (Auto) 2.80 (1.2-3.4) K/uL [place] # (Auto) 1.58 H (0.24-0.82) K/uL Eos # (Auto) 0.83 H (0-0.50) K/uL Baso # (Auto) 0.14 (0-0.2) K/uL Comprehensive Metabolic Panel 01/27/22 Range/Units 06:08 Sodium 136 (136-145) mmol/L Potassium 3.9 (3.5-5.1) mmol/L Chloride 102 (98-107) mmol/L Carbon Dioxide 28 (21-32) mmol/L BUN 16 (6-23) mg/dl Creatinine 0.53 L (0.6-1.2) mg/dl Glucose 145 H (70-99(Fasting)) mg/dl Calcium 8.1 L (8.5-10.1) mg/dl
[2022-01-27] MEDS ORDERED: guaiFENesin 600 MG TABCR PO STA (23:05)
[2022-01-27] MEDS ORDERED: guaiFENesin/CODEINE 100MG/10MG 5ML UDC PO PRN (23:05)
[2022-01-28] MEDS: ALBUT/IPRATROP 3MG/0.5MG NEB 3 ML VIAL NEB SCH ×2 (00:51→07:17)
[2022-01-28] MEDS: ACETAMINOPHEN 325 MG TAB PO PRN (01:10)
[2022-01-28 06:24] LABS: Basophils # (auto) 0.17 K/uL (0-0.2); Basophils % (auto) 1.5 %; Eosinophils # (auto) 0.85 K/uL (0-0.50); Eosinophils % (auto) 7.6 %; Hematocrit (blood only) 26.6 % (34.1-44.9); Hemoglobin 8.1 g/dl (12.0-16.0); Immature Granulocytes # (auto) 0.02 K/uL (0.00-0.02); Immature Granulocytes % (auto) 0.2 %; Lymphocytes # (auto) 2.95 K/uL (1.2-3.4); Lymphocytes % (auto) 26.3 %; Mean Corpuscular Hemoglobin 20.8 pg (25.0-34.0); Mean Corpuscular Hgb Conc 30.5 g/dL (32.0-36.0); Mean Corpuscular Volume 68.2 fL (80.0-100.0); Monocytes % (auto) 14.2 %; Neutrophils # (auto) 5.64 K/uL (1.4-6.5); Neutrophils % (auto) 50.2 %; RDW Coefficient of Variation 21.5 % (11.5-14.5); RDW Standard Deviation 50.4 fL (36.4-46.3); White Blood Count 11.23 K/ul (4.8-10.8)
[2022-01-28 06:48] LABS: Anisocytosis Present; Mean Platelet Volume 10.2 fL (9.4-12.3); Microcytosis Present; Platelet Count 254 K/uL (130-400); Target Cells 1+
[2022-01-28 06:57] LABS: BUN Creatinine Ratio 27.4 (10-20); Calcium 8.3 mg/dl (8.5-10.1); Est GFR (Non-African American) 84.6 ml/min; Magnesium 1.6 mg/dl (1.7-2.4); Potassium 3.8 mmol/L (3.5-5.1)
[2022-01-28] MEDS: INSULIN ASPART PER UNIT SC SCH ×4 (07:59→20:09)
[2022-01-28] MEDS: METOPROLOL TARTRATE 25 MG TAB PO SCH ×2 (08:43→20:06)
[2022-01-28] MEDS: CINACALCET HCL 30 MG TAB PO SCH (08:43)
[2022-01-28] MEDS: PANTOprazole 40 MG TAB PO SCH (08:43)
[2022-01-28] MEDS: MAGNESIUM OXIDE 400 MG TAB PO SCH ×2 (08:43→20:07)
[2022-01-28] MEDS: VITAMIN B COMPLEX TAB PO SCH (08:44)
[2022-01-28] MEDS: DOXYCYCLINE HYCLATE 100 MG CAP PO SCH ×2 (08:44→20:08)
[2022-01-28] MEDS: FUROSEMIDE 40 MG/4 ML VIAL IV SCH ×3 (08:44→20:08)
[2022-01-28] MEDS: SIMVASTATIN 10 MG TAB PO SCH (08:44)
[2022-01-28] MEDS: MULTIVITAMIN TAB PO SCH (08:44)
[2022-01-28] MEDS: CLOPIDOGREL BISULFATE 75 MG TAB PO SCH (08:44)
[2022-01-28] MEDS: ASPIRIN 81 MG ECTAB PO SCH (08:44)
[2022-01-28] MEDS ORDERED: ALBUT/IPRATROP 3MG/0.5MG NEB 3 ML VIAL NEB PRN (09:14)
[2022-01-28] MEDS: ENOXAPARIN INJ 40 MG/0.4 ML SYR SQ SCH (09:16)
[2022-01-28] MEDS: LANTUS PER UNIT CHARGE SQ SCH (09:27)
[2022-01-28] MEDS: cefTRIAXone SODIUM 2,000 MG in DEXTROSE 5% 50 ML IV SCH (09:29)
[2022-01-28] MEDS: guaiFENesin 600 MG TABCR PO SCH ×2 (10:16→20:08)
--- NOTE | 2022-01-28 12:16 | Pharmacy Report ---
Pharmacy Glycemic Short Note 2 - Date of Service January 28, 2022 - Glycemic Short BSG Results (Last 24 hours): 01/27/22 01/27/22 01/27/22 12:38 16:06 20:16 Glucose POC Glucose 214 H 95 151 H 01/28/22 01/28/22 01/28/22 06:03 07:23 11:29 Glucose 73 POC Glucose 79 129 H OUTPATIENT ANTIDIABETIC REGIMEN: * Novolin 70/30 - 75 units SC qAM, 55 units SC qPM * Metformin 1000 mg PO BIDM HbA1c pending ASSESSMENT: 01/28: * BSGs 97-447-92-129mg/dL the last 24h. Fasting this AM below goal at 79mg/dL. Received 54 units of basal and 33 units of bolus insulin yesterday. * Continues on antibiotics and tolerating diet - stressors stable * Fasting BSG low this AM - will reduce Lantus dose this evening and continue with dose reduction tomorrow if BSGs within goal. No change to Novolog parameters. 01/26: * BSGs 119-474-419-208mg/dL the last 24h. Fasting within goal this AM, 131mg/dL. Patient received 52 units of basal and 32 units of bolus insulin yesterday. * Antibiotics continue, and tolerating diet * Given fasting within goal, will not titrate Lantus any further. Novolog tightened for better prandial coverage. 01/25: * BSGs uncontrolled [phone]/dL the last 24h. Received 50 units of basal yesterday and 35units of bolus. Fasting this AM 225mg/dL. * Continues on antibiotics and ordered diet * Plan to increase Lantus ~10% to 27 units BID starting tonight. Novolog parameters tightened to 20/6. 01/24: * BSGs [phone]/dL. Fasting this AM, 144mg/dL which is acceptable. Patient received 50 units of Lantus and 45 units of bolus insulin yesterday. Ordered and tolerating diet, continues on antibiotics. * Continue Lantus 25 units BID given fasting BSG within goal. Novolog parameters tightened with lunch today given elevated prandial BSG. 01/23: * LP is an 81 year old female admitted last evening (01/22) for acute respiratory failure (likely multifactorial) * Pharmacy consulted for glycemic management this morning, due to elevated BSG (283 mg/dL) * Patient uses 70/30 insulin at home, will use long-acting basal insulin in place of NPH for now * Initially will start with weight-based Novolog parameters, but may need to tighten based on BSG trends given significant outpatient insulin doses * Lunch BSG also elevated at 291 mg/dL - will give additional basal dose now and tighten Novolog further PLAN FOR INPATIENT GLYCEMIC CONTROL: * Hold outpatient oral diabetes medications * Basal insulin * Lantus 27 units this AM, 20 units HS * Bolus insulin * NovoLog per scale ACHS or Q6hrs while NPO * Goal Range: Low 110 mg/dL - High 140 mg/dL * Correction Factor: 15 mg/dL/unit * Nutritional / Prandial insulin per carb ratio of 1 unit per 5 grams CHO consumed * 00,04 checks this evening with same parameters
[2022-01-28] MEDS: MAGNESIUM SULFATE / D5W 1 GM/100 ML BAG IV SCH ×2 (13:13→15:01)
--- NOTE | 2022-01-28 14:25 | XRay Report ---
XR chest 2V PA/lateral HISTORY: 81 years-old Female folllow up CHF acute shortness of breath with reported congestive heart failure COMPARISON: Chest radiograph 01/24/2022 TECHNIQUE: PA and lateral views of the chest FINDINGS: Cardiac silhouette is enlarged. Atherosclerosis of the aorta. Pulmonary vascular congestion with pers istent reticular interstitial opacities. Small pleural effusions with mild bibasilar consolidation, i mproved from prior. Cholecystectomy clips. Degenerative changes of the shoulders and spine. IMPRESSION: 1. Cardiomegaly with stable pulmonary edema. 2. Small pleural effusions with mildly decreased bibasilar opacities. ACT 112: Negative or not required by law. The above report was generated using voice recognition software. It may contain grammatical, syntax o r spelling errors. Electronically signed by: Abhay Smart M.D. 01/28/2022 2:23 PM
--- NOTE | 2022-01-28 15:44 | Cardiology Progress Note ---
Date of Service January 28, 2022 Assessment & Plan (1) Acute heart failure with preserved ejection fraction (HFpEF): Plan: * Repeat chest x-ray performed today reveals ongoing mild interstitial edema, small pleural effusions. * Continue metoprolol, furosemide 40 mg IV daily. * Losartan remains on hold (2) Mitral stenosis: Plan: * Treat medically, as above. (3) Acute respiratory failure with hypoxia: Plan: * Continue oxygen supplementation, Rocephin, doxycycline. (4) Microcytic anemia: Plan: * Hemoglobin stable. (5) Acute CVA (cerebrovascular accident): Plan: * Neurology input noted and appreciated, continue aspirin, clopidogrel, simvastatin * LDL cholesterol this admission 44 mg/dL on simvastatin. DVT prophylaxis: Subcutaneous Lovenox -Consider assessment for home oxygen tomorrow, perhaps transition to furosemide 40 mg p.o. daily. Admission and Anticipated Discharge Date Admission Date: January 22, 2022 Subjective Patient seen in cardiology follow-up of shortness of breath. Telemetry reveals sinus rhythm in the 70s. She notes her right arm strength is still improved compared to the acute episode of weakness that she had earlier this hospital stay. Oxygen requirement is improved down to 2 L/min. Notes being comfortable and she feels like she is making progress subjectively. Review of Systems Review of Systems: All systems reviewed & are unremarkable except as noted in HPI & below Physical Exam Constitutional: WD/WN, vitals as above Cardiovascular: Rate/Rhythm: regular rate Heart Sounds: no murmur Extremities: no edema Gastrointestinal (Abdomen): normal bowel sounds, soft, nontender, no hepatosplenomegaly Neurologic: PERRL, EOMI, accommodation nl, no face palsy, no dysarthria Results & Data ([facility]) Vital Signs (Past 12 Hours) Vital Signs Temp Pulse Pulse Pulse Resp BP Pulse Ox 01/28/22 11:08 36.9 C 78 18 120/53 L 93 01/28/22 10:06 01/28/22 08:00 84 01/28/22 07:17 83 19 92 01/28/22 07:14 36.5 C 84 18 138/62 94 O2 Del Method O2 Flow Rate 01/28/22 11:08 Nasal Cannula 2 01/28/22 10:06 Nasal Cannula 2 01/28/22 08:00 01/28/22 07:17 Nasal Cannula 2 01/28/22 07:14 Nasal Cannula 2 Laboratory Results CBC 01/28/22 Range/Units 06:03 WBC 11.23 H (4.8-10.8) K/ul RBC 3.90 L (3.93-5.22) M/uL Hgb 8.1 L (12.0-16.0) g/dl Hct 26.6 L (34.1-44.9) % Plt Count 254 (130-400) K/uL Neut # (Auto) 5.64 (1.4-6.5) K/uL Lymph # (Auto) 2.95 (1.2-3.4) K/uL [place] # (Auto) 1.60 H (0.24-0.82) K/uL Eos # (Auto) 0.85 H (0-0.50) K/uL Baso # (Auto) 0.17 (0-0.2) K/uL Comprehensive Metabolic Panel 01/28/22 Range/Units 06:03 Sodium 137 (136-145) mmol/L Potassium 3.8 (3.5-5.1) mmol/L Chloride 103 (98-107) mmol/L Carbon Dioxide 28 (21-32) mmol/L BUN 17 (6-23) mg/dl Creatinine 0.62 (0.6-1.2) mg/dl Glucose 73 (70-99(Fasting)) mg/dl Calcium 8.3 L (8.5-10.1) mg/dl Intake and Output 01/28/22 01/28/22 01/28/22 06:59 14:59 22:59 Intake Total 90 / 1610 1065 / 1155 90 / 1155 Output Total 400 / 1851 1400 / 1400 Balance -310 / -241 -335 / -245 90 / -245 Intake: IV 70 / 160 90 / 160 Magnesium Sulfate / D5w 1 gm In 90 / 90 100 ml @ 50 mls/hr IV Q2H DESIREE Rx#:[id number] cefTRIAXone SODIUM 2,000 mg In 70 / 70 Dextrose 5% 50 ml @ 100 mls/hr IV DAILY DESIREE Rx#:[id number] Oral 90 / 1540 995 / 995 Output: Urine 400 / 1850 1400 / 1400 Other: # Unmeasured Voids 2 Weight 86.1 kg Weight Measurement Method Built in [facility]
[2022-01-28] MEDS ORDERED: LANTUS PER UNIT CHARGE SQ SCH (21:00)
[2022-01-29 06:41] LABS: Basophils # (auto) 0.15 K/uL (0-0.2); Basophils % (auto) 1.3 %; Eosinophils # (auto) 0.79 K/uL (0-0.50); Eosinophils % (auto) 6.6 %; Hematocrit (blood only) 27.8 % (34.1-44.9); Hemoglobin 8.3 g/dl (12.0-16.0); Immature Granulocytes # (auto) 0.04 K/uL (0.00-0.02); Immature Granulocytes % (auto) 0.3 %; Lymphocytes # (auto) 3.18 K/uL (1.2-3.4); Lymphocytes % (auto) 26.7 %; Mean Corpuscular Hemoglobin 20.6 pg (25.0-34.0); Mean Corpuscular Hgb Conc 29.9 g/dL (32.0-36.0); Monocytes # (auto) 1.57 K/uL (0.24-0.82); Monocytes % (auto) 13.2 %; Neutrophils # (auto) 6.19 K/uL (1.4-6.5); Neutrophils % (auto) 51.9 %; RDW Coefficient of Variation 21.7 % (11.5-14.5); RDW Standard Deviation 51.5 fL (36.4-46.3); Red Blood Count 4.03 M/uL (3.93-5.22); White Blood Count 11.92 K/ul (4.8-10.8)
[2022-01-29 07:03] LABS: BUN Creatinine Ratio 30.1 (10-20); Calcium 8.4 mg/dl (8.5-10.1); Creatinine Clr Calc Pharmacy 62.9 ml/min; Est GFR (African American) 89.5 ml/min; Est GFR (Non-African American) 77.2 ml/min; Magnesium 1.6 mg/dl (1.7-2.4); Potassium 3.7 mmol/L (3.5-5.1)
[2022-01-29 07:10] LABS: Hypochromasia Present; Mean Platelet Volume 10.4 fL (9.4-12.3); Microcytosis Present; Ovalocytes 1+; Platelet Count 264 K/uL (130-400); Platelet Estimate Normal (Normal); Polychromasia 1+; Target Cells 1+
[2022-01-29] MEDS: INSULIN ASPART PER UNIT SC SCH ×2 (08:16→12:44)
[2022-01-29] MEDS: cefTRIAXone SODIUM 2,000 MG in DEXTROSE 5% 50 ML IV SCH (08:17)
[2022-01-29] MEDS: ASPIRIN 81 MG ECTAB PO SCH (08:18)
[2022-01-29] MEDS: VITAMIN B COMPLEX TAB PO SCH (08:18)
[2022-01-29] MEDS: CINACALCET HCL 30 MG TAB PO SCH (08:18)
[2022-01-29] MEDS: PANTOprazole 40 MG TAB PO SCH (08:18)
[2022-01-29] MEDS: MULTIVITAMIN TAB PO SCH (08:18)
[2022-01-29] MEDS: CLOPIDOGREL BISULFATE 75 MG TAB PO SCH (08:18)
[2022-01-29] MEDS: DOXYCYCLINE HYCLATE 100 MG CAP PO SCH (08:19)
[2022-01-29] MEDS: MAGNESIUM OXIDE 400 MG TAB PO SCH (08:19)
[2022-01-29] MEDS: SIMVASTATIN 10 MG TAB PO SCH (08:19)
[2022-01-29] MEDS: guaiFENesin 600 MG TABCR PO SCH (08:19)
[2022-01-29] MEDS: ENOXAPARIN INJ 40 MG/0.4 ML SYR SQ SCH (08:19)
[2022-01-29] MEDS: METOPROLOL TARTRATE 25 MG TAB PO SCH (08:19)
[2022-01-29] MEDS: FUROSEMIDE 40 MG/4 ML VIAL IV SCH (08:20)
[2022-01-29] MEDS ORDERED: LANTUS PER UNIT CHARGE SQ SCH ×2 (09:00)
--- NOTE | 2022-01-29 12:18 | Cardiology Progress Note ---
Date of Service January 29, 2022 Assessment & Plan (1) Acute heart failure with preserved ejection fraction (HFpEF): Plan: * Transition to oral furosemide 40 mg p.o. daily. * Resume losartan at discharge * Continue metoprolol * Supplement magnesium as indicated (2) Mitral stenosis: Plan: * Treat medically, as above. (3) Acute respiratory failure with hypoxia: Plan: * Continue oxygen supplementation, Rocephin, doxycycline. (4) Microcytic anemia: Plan: * Hemoglobin stable. (5) Acute CVA (cerebrovascular accident): Plan: * Neurology input noted and appreciated, continue aspirin, clopidogrel, simvastatin * LDL cholesterol this admission 44 mg/dL on simvastatin. DVT prophylaxis: Subcutaneous Lovenox Admission and Anticipated Discharge Date Admission Date: January 22, 2022 Subjective Patient seen and examined at the bedside. Fluid balance -3.2 L with IV fur osemide. Patient anxious for discharge. Denies chest pain or shortness of breath. Telemetry reveals sinus rhythm in the 90s. Offers no concerns/complaints. Review of Systems Review of Systems: All systems reviewed & are unremarkable except as noted in Subjective Physical Exam Constitutional: well nourished; no acute distress Respiratory: no respiratory distress, no labored breathing and no retractions Auscultation: no crackles, no rales and no wheezes Cardiovascular: Rate/Rhythm: regular rate and regular rhythm Heart Sounds: normal S1 and normal S2; no murmur Vessels: no JVD Extremities: no edema Gastrointestinal (Abdomen): Inspection/Auscultation: abdomen normal to inspection and normal bowel sounds; abdomen not distended Percussion/Palpation: abdomen soft; abdomen nontender, no guarding and abdomen not rigid Neurologic: CN's II-XI intact bilaterally and moves all extremities; no focal motor deficits Psychiatric: A+Ox3, euthymic affect Results & Data ([facility]) Vital Signs (Past 12 Hours) Vital Signs Temp Pulse Pulse Pulse Pulse Pulse Pulse 01/29/22 11:15 37.0 C 79 01/29/22 11:10 93 H 90 80 01/29/22 07:55 92 H 01/29/22 07:40 01/29/22 07:24 36.9 C 95 H 01/29/22 02:32 36.5 C 95 H Resp Resp Resp Resp BP Pulse Ox Pulse Ox 01/29/22 11:15 17 112/59 L 93 01/29/22 11:10 20 16 16 89 L 01/29/22 07:55 01/29/22 07:40 01/29/22 07:24 18 137/53 L 90 01/29/22 02:32 16 136/65 90 Pulse Ox Pulse Ox O2 Del Method 01/29/22 11:15 Room Air 01/29/22 11:10 92 93 01/29/22 07:55 01/29/22 07:40 Room Air 01/29/22 07:24 Room Air 01/29/22 02:32
--- NOTE | 2022-01-29 16:54 | Discharge Summary ---
Date of Service January 29, 2022 Admission HPI Per Admitting Provider History obtained from patient and records. Medical history significant for CAD status post stent (1994 as per patient), hypertension, hyperlipidemia, DM2 insulin requiring, GERD, primary hyperparathyroidism, past tobacco abuse. Patient has history of CAD status post stent at a tertiary hospital she cannot remember in 1994. 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 Patient stopped aspirin medication due to epistaxis. Last confinement April 2017 for traumatic right hip pain. 1 week history of congestion symptoms, cough productive of junky yellow sputum. Chest pain. Fever, no chills. was sick as well. Not sure about other sick contacts as patient was at [facility] last week to be with her daughter who had subsequently . Patient completed COVID-19 vaccination. No retention and leg swelling noted to be worsening. No belly pain. Denies recent black or bloody stools. Patient seen at PCPs office yesterday. O2 sats noted to be 80s. Patient brought to ER for evaluation by ambulance. Lasix given for CHF. 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 Heart- normal rate, regular rhythm; no murmurs Abdomen- normal bowel sounds, nondistended, soft, nontender Extremities- no pretibial edema, no calf tenderness Neuro- alert, oriented x 3; motor strength right upper extremity: 4/ 5, sensation 100% No other focal neurologic deficits noted Skin- warm & dry Principal Diagnosis Acute respiratory failure with hypoxia secondary to Acute on chronic CHF/Pneumonia Acute CVA Discharge Exam General- oriented x 3, not in distress, speaks in sentences with no effort or accessory muscle use Eyes- anicteric Neck- no JVD Lungs-bilateral crackles at bases. Heart- normal rate, regular rhythm; no murmurs Abdomen- normal bowel sounds, nondistended, soft, nontender Extremities- no pretibial edema, no calf tenderness Neuro- alert, oriented x 3; motor strength right upper extremity: 4/ 5, sensation 100% No other focal neurologic deficits noted Skin- warm & dry Discharge Data Allergies Allergy/AdvReac Type Severity Reaction Status Date / Time No Known Allergies Allergy Unverified 01/22/22 20:03 Consultations 01/22/22 22:32 Consult Cardiology Routine 01/25/22 06:25 Consult Neurology Routine Ordered Studies 01/25/22 04:45 CT angio head w con Urgent CT head/brain wo con Urgent 01/25/22 04:46 CT angio neck with con Urgent 01/25/22 06:23 MR brain wo con Routine Hospital Course (1) Acute respiratory failure with hypoxia: (2) Acute CVA (cerebrovascular accident): Plan Patient is a 81 yo f with past medical history significant for CAD status post stent (1994 as per patient), hypertension, hyperlipidemia, DM2 insulin requiring, GERD, primary hyperparathyroidism, past tobacco abuse presented with 1 week history of cough with productive yellow sputum. Chest x-ray showed bilateral infiltrates. Patient was started on antibiotics and Lasix. On the night of 01/25, patient developed weakness in her right upper extremity. MRI brain showed multiple foci of acute infarcts. CT angio head and neck was done which did not show large vessel occlusion. Neurology was consulted; stroke was deemed to be embolic in nature likely from aortic plaque. Patient was in sinus rhythm throughout the hospitalization. She was started on aspirin and Plavix with a goal of resuming only Plavix after 3 weeks. Patient's oxygenation improved through the course of the hospitalization and she was in room air on the day of the discharge. PT OT evaluation was done and patient was recommended to go to rehab. She refused rehab and also refused home PT OT. Home oxygen evaluation was done and patient did not require any supplemental oxygen at discharge. She was discharged on 2-day course of oral antibiotics to complete a 7-day course. She was also given prescription for Lasix 40 mg, Plavix, aspirin and metoprolol. Amlodipine was stopped at discharge. She was instructed to follow-up with her PCP and cardiology. Discharge instruction were given to her daughter as well. Total Time Total Time Spent Total Time Spent (In Minutes): 35 Total Time Includes: Examination of the Patient, Discharge Planning, Medication Reconciliation, Communication With Other Providers and Other Discharge Plan Discharge Items Patient Disposition: Home - Self-Care Reason For Visit: RESP FAILURE Discharge Diagnosis: Acute hypoxic respiratory failure secondary to pneumonia/CHF Acute CVA Demand ischemia Activity: Resume your previous activity Non-emergency contact: Primary Care Provider Call non-emergency contact if: you have any medication questions Follow-up/Referrals: Alexy Al MD [Primary Care Provider] - Diet: Carb Consistent or DM2 Addtl Attending Provider Instructions: You are admitted to the hospital due to pneumonia and heart failure. You are also found to have acute stroke. The following changes have been made to your medication. 1) Stop taking amlodipine and omeprazole. 2) Start taking Lasix 40 mg once daily. 3) Start metoprolol 12.5mg ( 1/2 Tablets of 25mg) twice daily. 4) Start Protonix 40mg once daily. 5) Start Taking Plavix 75mg once daily 6) Start taking Magnesium supplement once daily. The following medications are to be taken till the provided date. 5) Take Aspirin for next 17 days (till February 15, 2022). 6) 2 different antibiotics are prescribed to you. Cefdinir 300mg twice daily and Doxycyline 100mg twice daily for next 2 days( till January 30 2022) Please follow-up with her primary care doctor in 1 week. Please follow-up with cardiology. Pending Studies at Discharge: No Stand-Alone Forms: My [facility] [employer], Smoking Cessation Medications and DC Order Prescriptions: New doxycycline hyclate 100 mg Capsule 100 mg PO BID 2 Days Qty: 4 0RF clopidogrel 75 mg Tablet 75 mg PO QAM Qty: 60 0RF aspirin 81 mg Tablet,Delayed Release (Dr/Ec) 81 mg PO QAM 17 Days Qty: 17 0RF metoprolol tartrate 25 mg Tablet 12.5 mg PO BID Qty: 30 0RF magnesium oxide 400 mg (241.3 mg magnesium) Tablet 400 mg PO DAILY Qty: 60 0RF cefdinir 300 mg capsule 300 mg PO BID 2 Days Qty: 4 0RF furosemide [Lasix] 40 mg tablet 40 mg PO DAILY Qty: 30 0RF pantoprazole 40 mg Tablet,Delayed Release (Dr/Ec) 40 mg PO DAILY Qty: 30 0RF Continued vitamin B complex Tablet Extended Release 1 tab PO DAILY alendronate 70 mg tablet 70 mg PO WK Novolin 70/30 U-100 Insulin 100 unit/mL (70-30) suspension 75 unit SUBCUT QAM Rx Instructions: Take 75 units before breakfast Novolin 70/30 U-100 Insulin 100 unit/mL (70-30) suspension 55 unit SUBCUT QPM Rx Instructions: Take 55 units before supper. metformin 1,000 mg tablet 1,000 mg PO BID cinacalcet 30 mg tablet 30 mg PO DAILY biotin 1 mg Tablet 1 mg PO TID Rx Instructions: Take 1 tab in am, 1 tab at noon, 1 tab before hs simvastatin 10 mg tablet 10 mg PO DAILY losartan 25 mg tablet 25 mg PO DAILY [id number] Tablet 1 tab PO DAILY glucosamine-chondroitin [Osteo Bi-Flex] 250-200 mg Tablet 1 tab PO DAILY Rx Instructions: unknown strength potassium gluconate 595 mg (99 mg) Tablet 595 mg PO DAILY Discontinued omeprazole 20 mg capsule,delayed release(DR/EC) 20 mg PO DAILY amlodipine 5 mg tablet 5 mg PO QAM Discharge Orders: Discharge Order (Routine); Ordered 01/29/22 Ordered By: Dustin Barros Admission Data Admit Date/Time: 01/22/22 21:02 Attending Provider: Dustin Barros Admit Provider: Marv Simmons Primary Care Provider: Alexy Al Other Providers: Jovi Mcfarland Emile ; [facility] ; [facility] Other Interventions: Discharge Summary Assessment (RN) Last Done: 01/29/22 13:18
== END 2022-01-29 14:24 | disposition home or self-care (01) | DRG 291 ==
LOC: ED 17:49 → 2E 21:02 → SUATTDRO 21:02 → 2E 22:06

== ENCOUNTER 2022-04-27 12:17 | Inpatient (IN) ==
[2022-04-27 13:08] LABS: Basophils # (auto) 0.06 K/uL (0-0.2); Basophils % (auto) 0.3 %; Hematocrit (blood only) 32.8 % (34.1-44.9); Hemoglobin 10.1 g/dl (12.0-16.0); Immature Granulocytes # (auto) 0.13 K/uL (0.00-0.02); Immature Granulocytes % (auto) 0.6 %; Lymphocytes # (auto) 0.84 K/uL (1.2-3.4); Lymphocytes % (auto) 3.8 %; Mean Corpuscular Hemoglobin 20.5 pg (25.0-34.0); Mean Corpuscular Hgb Conc 30.8 g/dL (32.0-36.0); Mean Corpuscular Volume 66.7 fL (80.0-100.0); Monocytes # (auto) 2.06 K/uL (0.24-0.82); Monocytes % (auto) 9.3 %; Neutrophils # (auto) 19.02 K/uL (1.4-6.5); RDW Coefficient of Variation 23.5 % (11.5-14.5); RDW Standard Deviation 53.8 fL (36.4-46.3); Red Blood Count 4.92 M/uL (3.93-5.22); White Blood Count 22.11 K/ul (4.8-10.8)
[2022-04-27] MEDS ORDERED: MoRPHine SULFATE 4 MG/ML 1 ML CARP\\VIAL IV PRN (13:10)
[2022-04-27] MEDS ORDERED: ONDANSETRON INJ 2 MG/ML 2 ML VIAL IV STA (13:10)
[2022-04-27] MEDS ORDERED: SODIUM CHLORIDE 0.9% 1000ML 1,000 ML IV STA (13:10)
--- NOTE | 2022-04-27 13:15 | Emergency Department Note ---
Impression & Plan Ileocolitis, Abdominal pain, acute, right lower quadrant, Elevated troponin I level, Abnormal EKG, Vomiting, Ovarian mass, right ED Provider Note NAME: FARHAN BEAR AGE: 81 SEX: F : 1940 ARRIVES VIA: Walk-In INFORMANT: Patient, ED PROVIDER(S): Pierre Santos DO CHIEF COMPLAINT: Abdominal pain HPI: The patient is an 81-year-old female who presented to the emergency department for an evaluation of abdominal pain. The patient describes right lower quadrant abdominal pain which began over the last few days. She states she started noticing loose bowel movements initially. The loose bowel movements have resolved and the patient has now noticed nausea and vomiting. She tried to be seen at an urgent care center but was sent to the emergency department for further evaluation. She was noted to have a low-grade fever. She states that she also has a cough. She denies having any dysuria or frequency. She is actually noticed decreased urine output. She has no history of kidney stones. She denies having any bloody urine. The patient states that her symptoms are moderate to severe. Her pain worsens whenever she tries to ambulate or with palpation over the right lower quadrant. ROS: See above HPI for pertinent positives & negatives. A total of 10 systems reviewed and were otherwise negative. PAST MEDICAL HISTORY: See Below PAST SURGICAL HISTORY: See Below FAMILY HISTORY: See Below SOCIAL HISTORY: See Below HOME MEDICATIONS: See Below ALLERGIES: See Below VITALS: See Below PHYSICAL EXAMINATION: GENERAL: The patient is awake and alert. The patient is very anxious appearing. She appears to be uncomfortable. EYES: The conjunctivae are clear. The pupils are round and reactive. EARS, NOSE, MOUTH AND THROAT: The nose is without any evidence of any deformity. NECK: The neck is nontender and supple. RESPIRATORY: Normal respiratory effort is noted there is no evidence of wheezing rhonchi or rales CARDIOVASCULAR: Regular rate and rhythm noted there no murmurs rubs or gallops normal S1 normal S2. GASTROINTESTINAL: The abdomen was distended. There is right lower quadrant tenderness to palpation with guarding in the right lower quadrant. MUSCULOSKELETAL/EXTREMITIES: There is no evidence of gross deformity full range of motion is noted in the hips and shoulders. SKIN: There is no obvious evidence of any rash. There are no petechiae, pallor or cyanosis noted. NEUROLOGIC: Patient is awake alert and oriented x3 MEDICAL DECISION MAKING: Patient is an 81-year-old female who presented to the emergency department for an evaluation of right lower quadrant abdominal pain. The patient was found to have a high white blood cell count as well as guarding on my physical exam. The patient was treated with IV fluids and IV pain medication. The patient was also given IV antibiotics. I discussed the patient's laboratory and radiographic studies with her. I discussed her condition with the on-call general surgical group. They have agreed to evaluate the patient in the emergency department for further management and disposition. The patient was feeling much better. She also was found to have an elevated troponin. I [facility] the [facility] Triage Nursing notes reviewed. Prior medical records reviewed Vital Signs: reviewed and remarkable for tachycardia and fever. Differential diagnosis: Etiologies such as appendicitis, diverticulitis, obstruction, inflammatory bowel disease, renal colic, PUD, biliary pathology, pancreatitis, mesenteric ischemia, aortic pathology, infections, genitourinary, UTI, perforated viscus, as well as others were entertained. ER treatment provided: See below Diagnostics interpreted by me: ECG: KG was obtained in the emergency department. My interpretation is sinus tachycardia at 114 bpm. There is no ectopy. Lateral and inferior ST segment depressions were noted. Poor R wave progression was appreciated. This was compared to a tracing from January 31, 2022. The ST segment abnormalities are similar but increased in the high lateral leads. Cardiac Monitoring: An order was placed for continuous cardiac monitoring. The monitor shows a rate of 114 bpm with sinus tachycardia. Laboratory studies: As stated above and show below. Imaging studies: See below Consultation(s): I discussed this case with Dr. Carreno who is on-call for the general surgical group. Discussed this call with Anal[facility] Past Med/Surg History Medical History Acute CVA (cerebrovascular accident) Acute heart failure with preserved ejection fraction (HFpEF) Acute respiratory failure with hypoxia Coronary atherosclerosis of [place] coronary vessel Essential (primary) hypertension Lumbago Other and unspecified hyperlipidemia Type 2 diabetes mellitus without complications Weakness of right upper extremity Surgical History History of cataract surgery S/P cholecystectomy Family History Mother , age 70 of a stroke and congestive heart failure Stroke CHF (congestive heart failure) Father , in his 70s of an AR Myocardial infarction Social History Smoking Status: Former smoker packs per day: 4; Hx Alcohol Use: Yes Alcohol type: beer Alcohol Intake Frequency Comment: up to 1 beer to her day. 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 Feels Safe at Home: Yes Assistive Devices: Cane and Walker Allergies Allergies Allergy/AdvReac Type Severity Reaction Status Date / Time No Known Allergies Allergy Unverified 01/22/22 20:03 Home Meds Home Medications Medication Instructions Recorded Confirmed alendronate 70 mg tablet 70 mg PO WK 01/22/22 01/22/22 biotin 1 mg tablet 1 mg PO TID 01/22/22 01/22/22 cinacalcet 30 mg tablet 30 mg PO DAILY 01/22/22 01/22/22 glucosamine-chondroitin 250 mg-200 1 tab PO DAILY 01/22/22 01/22/22 mg tablet (Osteo Bi-Flex) insulin human U-100 NPH-regulr 55 unit subcut QPM 01/22/22 01/22/22 70-30 mix 100 unit/mL subcutaneous susp (Novolin 70/30 U-100 Insulin) insulin human U-100 NPH-regulr 75 unit subcut QAM 01/22/22 01/22/22 70-30 mix 100 unit/mL subcutaneous susp (Novolin 70/30 U-100 Insulin) losartan 25 mg tablet 25 mg PO DAILY 01/22/22 01/22/22 metformin 1,000 mg tablet 1,000 mg PO BID 01/22/22 01/22/22 rgsgusaqjxeh-qbqmhaoz-ixjaht tablet 1 tab PO DAILY 01/22/22 01/22/22 potassium gluconate 595 mg (99 mg) 595 mg PO DAILY 01/22/22 01/22/22 tablet simvastatin 10 mg tablet 10 mg PO DAILY 01/22/22 01/22/22 vitamin B complex 1 tab PO DAILY 01/22/22 01/22/22 Previous Rx's Medication Instructions Recorded clopidogrel 75 mg tablet 75 mg PO QAM #60 tabs 01/29/22 furosemide 40 mg tablet (Lasix) 40 mg PO DAILY #30 tabs 01/29/22 magnesium oxide 400 mg (241.3 mg 400 mg PO DAILY #60 tabs 01/29/22 magnesium) tablet metoprolol tartrate 25 mg tablet 12.5 mg PO BID #30 tabs 01/29/22 pantoprazole 40 mg tablet,delayed 40 mg PO DAILY #30 tabs 01/29/22 release Results & Data (ED) Vital Signs Vital Signs - 24 hr 04/27/22 12:23 04/27/22 12:38 04/27/22 13:29 Temperature 37.7 C H Temperature Source Temporal Artery Scan Pulse Rate 115 H Pulse Rate [Finger] 97 H Pulse Rate from SpO2 Sensor Pulse Rhythm Regular Pulse Strength Normal Respiratory Rate 20 19 Respiratory Effort / Characteristics Non-Labored Spontaneous Non-Labored Spontaneous Respiratory Depth Normal Normal Respiratory Pattern Regular Regular Blood Pressure 160/76 H Blood Pressure [Left Arm] 144/61 H Blood Pressure Mean 104 Blood Pressure Mean [Left Arm] 88 Blood Pressure Position Sitting Blood Pressure Position [Left Arm] Semi-fowlers Pulse Oximetry 94 98 88 L Oxygen Delivery Method Room Air Room Air Room Air Oxygen Flow Rate 0 Sepsis Recent Fever Within 48 Hours No Sepsis New/Unexplained Change in Mental Status No Sepsis Action Taken by Nursing No Action Required 04/27/22 13:00 04/27/22 14:34 04/27/22 15:00 Temperature Temperature Source Pulse Rate 109 H 117 H 114 H Pulse Rate [Finger] Pulse Rate from SpO2 Sensor 118 H Pulse Rhythm Pulse Strength Respiratory Rate 24 24 19 Respiratory Effort / Characteristics Respiratory Depth Respiratory Pattern Blood Pressure 140/75 124/72 134/62 Blood Pressure [Left Arm] Blood Pressure Mean 96 89 86 Blood Pressure Mean [Left Arm] Blood Pressure Position Blood Pressure Position [Left Arm] Pulse Oximetry 97 94 93 Oxygen Delivery Method Nasal Cannula Nasal Cannula Nasal Cannula Oxygen Flow Rate 2 2 2 Sepsis Recent Fever Within 48 Hours Sepsis New/Unexplained Change in Mental Status Sepsis Action Taken by Nursing 04/27/22 15:30 Temperature Temperature Source Pulse Rate 116 H Pulse Rate [Finger] Pulse Rate from SpO2 Sensor Pulse Rhythm Pulse Strength Respiratory Rate 17 Respiratory Effort / Characteristics Respiratory Depth Respiratory Pattern Blood Pressure 136/61 Blood Pressure [Left Arm] Blood Pressure Mean 86 Blood Pressure Mean [Left Arm] Blood Pressure Position Blood Pressure Position [Left Arm] Pulse Oximetry 90 Oxygen Delivery Method Nasal Cannula Oxygen Flow Rate 2 Sepsis Recent Fever Within 48 Hours Sepsis New/Unexplained Change in Mental Status Sepsis Action Taken by Shelter Medications Current Medication List: was personally reviewed by me Laboratory Data Attestation: I reviewed the patient's lab results. Result diagrams: 04/27/22 12:51 04/27/22 12:51 Lab Results 04/27/22 04/27/22 04/27/22 Range/Units 12:51 12:51 12:51 WBC 22.11 H (4.8-10.8) K/ul RBC 4.92 (3.93-5.22) M/uL Hgb 10.1 L (12.0-16.0) g/dl Hct 32.8 L (34.1-44.9) % MCV 66.7 L (80.0-100.0) fL MCH 20.5 L (25.0-34.0) pg MCHC 30.8 L (32.0-36.0) g/dL RDW Std Deviation 53.8 H (36.4-46.3) fL RDW Coeff of Vanita 23.5 H (11.5-14.5) % Plt Count 340 (130-400) K/uL MPV 10.0 (9.4-12.3) fL Immature Gran % (Auto) 0.6 % Neut % (Auto) 86.0 % Lymph % (Auto) 3.8 % Geary % (Auto) 9.3 % Eos % (Auto) 0.0 % Baso % (Auto) 0.3 % Neut # (Auto) 19.02 H (1.4-6.5) K/uL Lymph # (Auto) 0.84 L (1.2-3.4) K/uL Geary # (Auto) 2.06 H (0.24-0.82) K/uL Eos # (Auto) 0.00 (0-0.50) K/uL Baso # (Auto) 0.06 (0-0.2) K/uL Immature Gran # (Auto) 0.13 H (0.00-0.02) K/uL Polychromasia 1+ Target Cells 1+ Schistocytes 1+ Sodium 136 (136-145) mmol/L Potassium 3.9 (3.5-5.1) mmol/L Chloride 99 (98-107) mmol/L Carbon Dioxide 18 L (21-32) mmol/L Anion Gap 19 H (3-11) BUN 16 (6-23) mg/dl Creatinine 0.81 (0.6-1.2) mg/dl Est Cr Clr Drug Dosing 56.1 ml/min Est GFR ( Amer) 78.9 ml/min Est GFR (Non-Af Amer) 68.1 ml/min BUN/Creatinine Ratio 19.8 (10-20) Glucose 230 H (70-99(Fasting)) mg/dl Calcium 9.6 (8.5-10.1) mg/dl Total Bilirubin 1.4 H (0.2-1.0) mg/dl AST 30 (13-39) U/L ALT 17 (7-52) U/L Alkaline Phosphatase 48 (34-104) U/L Troponin I High Sens 395.2 H* (0-14) pg/ml Total Protein 7.3 (6.0-8.3) gm/dl Albumin 3.8 (3.4-5.0) gm/dl Globulin 3.5 (2.5-4.0) gm/dl Albumin/Globulin Ratio 1.1 (0.9-2) Lipase 16 (11-82) U/L Urine Color Urine Appearance (Clear) Urine pH (4.5-7.5) Ur Specific [place] (1.000-1.030) Urine Protein (Negative) Urine Glucose (UA) (Negative) Urine Ketones (Negative) Urine Blood (Negative) Urine Nitrite (Negative) Urine Bilirubin (Negative) Urine Urobilinogen (Negative) Ur Leukocyte Esterase (Negative) Urine WBC (Auto) (0-5) /hpf Urine RBC (Auto) (0-4) /hpf U Hyaline Cast (Auto) (0-5) /lpf U Epithel Cells (Auto) (0-5) /lpf Urine Bacteria (Auto) (Negative) SARS-CoV-2, RNA, NAAT (NEGATIVE) 04/27/22 04/27/22 Range/Units 13:30 14:28 WBC (4.8-10.8) K/ul RBC (3.93-5.22) M/uL Hgb (12.0-16.0) g/dl Hct (34.1-44.9) % MCV (80.0-100.0) fL MCH (25.0-34.0) pg MCHC (32.0-36.0) g/dL RDW Std Deviation (36.4-46.3) fL RDW Coeff of Vanita (11.5-14.5) % Plt Count (130-400) K/uL MPV (9.4-12.3) fL Immature Gran % (Auto) % Neut % (Auto) % Lymph % (Auto) % Geary % (Auto) % Eos % (Auto) % Baso % (Auto) % Neut # (Auto) (1.4-6.5) K/uL Lymph # (Auto) (1.2-3.4) K/uL Geary # (Auto) (0.24-0.82) K/uL Eos # (Auto) (0-0.50) K/uL Baso # (Auto) (0-0.2) K/uL Immature Gran # (Auto) (0.00-0.02) K/uL Polychromasia Target Cells Schistocytes Sodium (136-145) mmol/L Potassium (3.5-5.1) mmol/L Chloride (98-107) mmol/L Carbon Dioxide (21-32) mmol/L Anion Gap (3-11) BUN (6-23) mg/dl Creatinine (0.6-1.2) mg/dl Est Cr Clr Drug Dosing ml/min Est GFR ( Amer) ml/min Est GFR (Non-Af Amer) ml/min BUN/Creatinine Ratio (10-20) Glucose (70-99(Fasting)) mg/dl Calcium (8.5-10.1) mg/dl Total Bilirubin (0.2-1.0) mg/dl AST (13-39) U/L ALT (7-52) U/L Alkaline Phosphatase (34-104) U/L Troponin I High Sens (0-14) pg/ml Total Protein (6.0-8.3) gm/dl Albumin (3.4-5.0) gm/dl Globulin (2.5-4.0) gm/dl Albumin/Globulin Ratio (0.9-2) Lipase (11-82) U/L Urine Color Yellow Urine Appearance Clear (Clear) Urine pH 5.0 (4.5-7.5) Ur Specific [place] 1.015 (1.000-1.030) Urine Protein Trace H (Negative) Urine Glucose (UA) Negative (Negative) Urine Ketones Trace H (Negative) Urine Blood Negative (Negative) Urine Nitrite Negative (Negative) Urine Bilirubin Negative (Negative) Urine Urobilinogen Negative (Negative) Ur Leukocyte Esterase Trace H (Negative) Urine WBC (Auto) 1-5 (0-5) /hpf Urine RBC (Auto) 0-4 (0-4) /hpf U Hyaline Cast (Auto) 1-5 (0-5) /lpf U Epithel Cells (Auto) 5-10 H (0-5) /lpf Urine Bacteria (Auto) Negative (Negative) SARS-CoV-2, RNA, NAAT NEGATIVE (NEGATIVE) Administered Medications Morphine Sulfate (Morphine Sulfate 4 Mg/Ml 1 Ml Carp\Vial) 4 mg IV Q15M PRN PRN Reason: Pain Stop: 05/11/22 13:09 Last Admin: 04/27/22 13:20 Dose: 4 mg Documented By: AM Discontinued Medications Sodium Chloride (Nss 1000ml) 1,000 mls @ 999 mls/hr IV .Q1H1M STA Stop: 04/27/22 14:10 Last Infusion: 04/27/22 14:48 Dose: 0 mls/hr Documented By: Admin: 04/27/22 13:45 Dose: 999 mls/hr Documented By: AM Piperacillin Sod/Tazobactam Sod (Zosyn) 4.5 gm in 120 mls @ 240 mls/hr IV NOW ONE Stop: 04/27/22 13:58 Last Infusion: 04/27/22 14:18 Dose: 0 mls/hr Documented By: Admin: 04/27/22 13:45 Dose: 240 mls/hr Documented By: NYDIA Ioversol (Optiray 350 100ml) 84 ml IV ONCE ONE Stop: 04/27/22 14:21 Last Admin: 04/27/22 14:11 Dose: 84 ml Documented By: JOMAR Ondansetron HCl (Ondansetron Inj 2 Mg/Ml 2 Ml Vial) 4 mg IV NOW STA Stop: 04/27/22 13:11 Last Admin: 04/27/22 13:18 Dose: 4 mg Documented By: AM Imaging Data Radiologist's Impression: Abdomen/Pelvis CT 04/27/22 13:[address] WITH IV CONTRAST CT DOSE: 908.81 mGycm HISTORY: Right lower quadrant pain. TECHNIQUE: Multiaxial CT images of the abdomen and pelvis were performed following the use of intravenous contrast. A dose lowering technique was utilized adhering to the principles of ALARA. COMPARISON STUDY: None. FINDINGS: Interstitial thickening at the lung bases is noted. This may be chronic. There are mild dependent changes at the lung bases. Partially visualized 6 mm nodule within the left lower lobe there is an additional 8 mm irregular nodule within the left lower lobe on image 29. No pneumoperitoneum. No pneumatosis. No fractures within the visualized osseous structures. The heart is borderline enlarged. Small right upper quadrant abdominal wall defect/hernia measuring 2 cm. This favors a prior laparoscopic port site given the prior cholecystectomy. There are are scattered dropped gallstones within the right side of the abdomen and within the anterior abdominal wall measuring up to 2.3 cm. Nodular contour to the liver consistent with cirrhosis. Moderate bile duct dilatation likely due to the patient's postcholecystectomy state. The spleen, pancreas, and right adrenal gland are unremarkable. There is mild thickening of the left adrenal gland. There is a 4 mm stone within the right kidney. No left renal calculi. No ureteral calculi. No hydronephrosis. There are few scattered hypodensities within the kidneys. The majority these are technically too small to characterize but statistically represent cysts. No retroperitoneal lymphadenopathy. 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 No pelvic lymphadenopathy or pelvic free fluid. The bladder is unremarkable. Prior hysterectomy. There is a 7.2 cm right ovarian cyst. This could be pathologic in a postmenopausal female. Colonic diverticulos is. No evidence for acute diverticulitis. Mild circumferential thickening within the ascending colon with mild pericolonic fat stranding. There is also mild circumferential thickening of the distal terminal ileum near the ileocecal valve. This is consistent with a nonspecific ileocolitis and favors an infectious or inflammatory process. A portal colopathy could also a similar appearance but is considered less likely. No evidence for bowel obstruction. IMPRESSION: 1. Mild circumferential thickening within the ascending colon with mild pericol onic fat stranding. There is also mild circumferential thickening of the distal terminal ileum near the ileocecal valve. This is consistent with a nonspecific ileocolitis and favors an infectious or inflammatory process. A portal colopathy could also a similar appearance but is considered less likely. 2. Cirrhotic liver. 3. There are 2 irregular nodule within the left lower lobe with the largest measuring 8 mm. Follow-up chest CT in 6 months is recommended to ensure stab ility/resolution. 4. Right-sided nephrolithiasis. No ureteral stones. No hydronephrosis. 5. A 7.2 cm right ovarian cyst. This is considered to be pathologic in a postmenopausal female. Follow-up nonemergent gynecologic consultation recommended. 6. Additional findings as described above. ACT 112: Negative or not required by law. Electronically signed by: Pee Parker M.D. 04/27/2022 3:01 PM Chest X-Ray 04/27/22 13:10 XR chest 1V portable HISTORY: Shortness of breath. Right lower quadrant abdominal pain. COMPARISON: Chest 01/31/2022. FINDINGS: The heart remains enlarged. There is mild pulmonary vascular congestion without overt edema. This remains unchanged. Small left basilar linear density favors scarring or subsegmental atelectasis. Otherwise, no new focal lung consolidations to suggest a pneumonia. There are calcifications within the aortic knob. IMPRESSION: Cardiomegaly with mild central pulmonary vascular congestion. This is similar to the prior study ACT 112: Negative or not required by law. Electronically signed by: Pee Parker M.D. 04/27/2022 1:36 PM Discharge Plan Visit Data Chief Complaint: Illness Stated Complaint: POSSIBLE PNEUMONIA ED Provider: Pierre Santos Discharge Problem: Ileocolitis, Abdominal pain, acute, right lower quadrant, Elevated troponin I level, Abnormal EKG, Vomiting, Ovarian mass, right Patient Disposition: Being Evaluated by Hospitalist Forms Stand Alone Forms: My [facility] Prescriptions Prescriptions: No Action vitamin B complex Tablet Extended Release 1 tab PO DAILY alendronate 70 mg tablet 70 mg PO WK Novolin 70/30 U-100 Insulin 100 unit/mL (70-30) suspension 75 unit SUBCUT QAM Rx Instructions: Take 75 units before breakfast Novolin 70/30 U-100 Insulin 100 unit/mL (70-30) suspension 55 unit SUBCUT QPM Rx Instructions: Take 55 units before supper. metformin 1,000 mg tablet 1,000 mg PO BID cinacalcet 30 mg tablet 30 mg PO DAILY biotin 1 mg Tablet 1 mg PO TID Rx Instructions: Take 1 tab in am, 1 tab at noon, 1 tab before hs simvastatin 10 mg tablet 10 mg PO DAILY losartan 25 mg tablet 25 mg PO DAILY waxoedndqwyk-jyeljsmh-prynqr Tablet 1 tab PO DAILY glucosamine-chondroitin [Osteo Bi-Flex] 250-200 mg Tablet 1 tab PO DAILY Rx Instructions: unknown strength potassium gluconate 595 mg (99 mg) Tablet 595 mg PO DAILY clopidogrel 75 mg Tablet 75 mg PO QAM Qty: 60 0RF metoprolol tartrate 25 mg Tablet 12.5 mg PO BID Qty: 30 0RF magnesium oxide 400 mg (241.3 mg magnesium) Tablet 400 mg PO DAILY Qty: 60 0RF furosemide [Lasix] 40 mg tablet 40 mg PO DAILY Qty: 30 0RF pantoprazole 40 mg Tablet,Delayed Release (Dr/Ec) 40 mg PO DAILY Qty: 30 0RF Referrals Referrals: Alexy Al MD [Primary Care Provider] - : Vomiting Qualifiers: Vomiting type: unspecified Nausea presence: with nausea Qualified Code(s): R11.2 - Nausea with vomiting, unspecified
[2022-04-27 13:29] LABS: Albumin Globulin Ratio 1.1 (0.9-2); Albumin Level 3.8 gm/dl (3.4-5.0); BUN Creatinine Ratio 19.8 (10-20); Bilirubin,Total 1.4 mg/dl (0.2-1.0); Calcium 9.6 mg/dl (8.5-10.1); Creatinine Clr Calc Pharmacy 56.1 ml/min; Est GFR (African American) 78.9 ml/min; Est GFR (Non-African American) 68.1 ml/min; Globulin 3.5 gm/dl (2.5-4.0); Potassium 3.9 mmol/L (3.5-5.1); Total Protein 7.3 gm/dl (6.0-8.3)
[2022-04-27] MEDS ORDERED: PIPERACILLIN/TAZOBACTAM 4.5 GM/120 ML BAG IV ONE (13:29)
--- NOTE | 2022-04-27 13:37 | XRay Report ---
XR chest 1V portable HISTORY: Shortness of breath. Right lower quadrant abdominal pain. COMPARISON: Chest 01/31/2022. FINDINGS: The heart remains enlarged. There is mild pulmonary vascular congestion without overt edema . This remains unchanged. Small left basilar linear density favors scarring or subsegmental atelectas is. Otherwise, no new focal lung consolidations to suggest a pneumonia. There are calcifications with in the aortic knob. IMPRESSION: Cardiomegaly with mild central pulmonary vascular congestion. This is similar to the prior study ACT 112: Negative or not required by law. Electronically signed by: Pee Parker M.D. 04/27/2022 1:36 PM
[2022-04-27 13:58] LABS: Platelet Count 340 K/uL (130-400)
[2022-04-27 14:01] LABS: Polychromasia 1+; Schistocytes 1+; Target Cells 1+
[2022-04-27] MEDS ORDERED: OPTIRAY 350 100ml IV ONE (14:20)
[2022-04-27 14:54] LABS: Appearance Urine Clear (Clear); Bacteria Urine Automated Negative (Negative); Bilirubin Urine Negative (Negative); Blood Urine Negative (Negative); Color Urine Yellow; Glucose Urine UA Negative (Negative); Ketones Urine Trace (Negative); Leukocyte Esterase Urine Trace (Negative); Nitrite Urine Negative (Negative); Protein Urine Trace (Negative); RBC Urine Automated 0-4 /hpf (0-4); Specific Gravity Urine 1.015 (1.000-1.030); Urobilinogen Urine Negative (Negative)
--- NOTE | 2022-04-27 15:02 | CT Scan Report ---
ABDOMEN AND PELVIS CT WITH IV CONTRAST CT DOSE: 908.81 mGycm HISTORY: Right lower quadrant pain. TECHNIQUE: Multiaxial CT images of the abdomen and pelvis were performed following the use of intrave nous contrast. A dose lowering technique was utilized adhering to the principles of ALARA. COMPARISON STUDY: None. FINDINGS: Interstitial thickening at the lung bases is noted. This may be chronic. There are mild dep endent changes at the lung bases. Partially visualized 6 mm nodule within the left lower lobe there i s an additional 8 mm irregular nodule within the left lower lobe on image 29. No pneumoperitoneum. No pneumatosis. No fractures within the visualized osseous structures. The heart is borderline enlarged . Small right upper quadrant abdominal wall defect/hernia measuring 2 cm. This favors a prior laparos copic port site given the prior cholecystectomy. There are are scattered dropped gallstones within th e right side of the abdomen and within the anterior abdominal wall measuring up to 2.3 cm. Nodular co ntour to the liver consistent with cirrhosis. Moderate bile duct dilatation likely due to the patient 's postcholecystectomy state. The spleen, pancreas, and right adrenal gland are unremarkable. There i s mild thickening of the left adrenal gland. There is a 4 mm stone within the right kidney. No left r enal calculi. No ureteral calculi. No hydronephrosis. There are few scattered hypodensities within th e kidneys. The majority these are technically too small to characterize but statistically represent c ysts. No retroperitoneal lymphadenopathy. 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 No pelvic lymphadenopathy or pelvic free fluid. The bladder is unremarkable. Prior hysterectomy. There is a 7.2 cm right ovarian cyst. This could be pathologic in a postmenopausal female. Colonic di verticulosis. No evidence for acute diverticulitis. Mild circumferential thickening within the ascend ing colon with mild pericolonic fat stranding. There is also mild circumferential thickening of the d istal terminal ileum near the ileocecal valve. This is consistent with a nonspecific ileocolitis and favors an infectious or inflammatory process. A portal colopathy could also a similar appearance but is considered less likely. No evidence for bowel obstruction. IMPRESSION: 1. Mild circumferential thickening within the ascending colon with mild pericolonic fat stranding. Th ere is also mild circumferential thickening of the distal terminal ileum near the ileocecal valve. Th is is consistent with a nonspecific ileocolitis and favors an infectious or inflammatory process. A p ortal colopathy could also a similar appearance but is considered less likely. 2. Cirrhotic liver. 3. There are 2 irregular nodule within the left lower lobe with the largest measuring 8 mm. Follow-up chest CT in 6 months is recommended to ensure stability/resolution. 4. Right-sided nephrolithiasis. No ureteral stones. No hydronephrosis. 5. A 7.2 cm right ovarian cyst. This is considered to be pathologic in a postmenopausal female. Follo w-up nonemergent gynecologic consultation recommended. 6. Additional findings as described above. ACT 112: Negative or not required by law. Electronically signed by: Pee Parker M.D. 04/27/2022 3:01 PM
--- NOTE | 2022-04-27 15:38 | Surgery Consultation ---
Date of Consultation April 27, 2022 Assessment & Plan (1) Ileocolitis: She will be evaluated by the medical service for admission and treatment of ileocolitis. She does not have any acute surgical findings at this time. She can have ice or sips and advance to clear liquids as tolerated. Supervising Physician Co-Signing Physician Notes Dr. Keen presented to the emergency room with right lower quadrant abdominal pain status postcholecystectomy and appendectomy Found on CT scan to have inflammation of her ileum and right colon consistent with ileocolitis inflammatory versus infectious We will continue with nonoperative management at the present time including IV antibiotics Patient can have ice chips from a surgical standpoint History of Present Illness History of Present Illness 81-year-old female presented to the emergency department today complaining of malaise, fever, nausea vomiting and diarrhea that began last evening. She threw up her dinner, a cheese steak hoagie and has not been able to keep anything down since. She had loose, watery diarrhea last night nothing today. Symptoms began yesterday afternoon after baking cookies. She felt well prior to that. Had appendectomy at age 15. Had cholecystectomy more than 20 years ago. Had hysterectomy but was found to have a right ovarian cyst several years ago during admission for fall and rib fractures. She does not recall having outpatient follow-up for that. Allergies Allergy/AdvReac Type Severity Reaction Status Date / Time No Known Allergies Allergy Verified 04/27/22 15:53 Home Medications Medication Instructions Recorded Confirmed Type alendronate 70 mg tablet 70 mg PO WK 01/22/22 04/27/22 History biotin 1 mg tablet 1 mg PO TID 01/22/22 04/27/22 History cinacalcet 30 mg tablet 30 mg PO DAILY 01/22/22 04/27/22 History glucosamine-chondroitin 250 mg-200 1 tab PO DAILY 01/22/22 04/27/22 History mg tablet (Osteo Bi-Flex) insulin human U-100 NPH-regulr See Rx Instructions .Route .COMPLEX 01/22/22 04/27/22 History 70-30 mix 100 unit/mL subcutaneous susp (Novolin 70/30 U-100 Insulin) losartan 25 mg tablet 25 mg PO DAILY 01/22/22 04/27/22 History metformin 1,000 mg tablet 1,000 mg PO BID 01/22/22 04/27/22 History runbeqhcdxqk-seoonzlz-gfmmym tablet 1 tab PO DAILY 01/22/22 04/27/22 History potassium gluconate 595 mg (99 mg) 595 mg PO DAILY 01/22/22 04/27/22 History tablet simvastatin 10 mg tablet 10 mg PO DAILY 01/22/22 04/27/22 History vitamin B complex 1 tab PO DAILY 01/22/22 04/27/22 History clopidogrel 75 mg tablet 75 mg PO QAM #60 tabs 01/29/22 04/27/22 Rx furosemide 40 mg tablet (Lasix) 40 mg PO DAILY #30 tabs 01/29/22 04/27/22 Rx magnesium oxide 400 mg (241.3 mg 400 mg PO DAILY #60 tabs 01/29/22 04/27/22 Rx magnesium) tablet metoprolol tartrate 25 mg tablet 12.5 mg PO BID #30 tabs 01/29/22 04/27/22 Rx pantoprazole 40 mg tablet,delayed 40 mg PO DAILY #30 tabs 01/29/22 04/27/22 Rx release amlodipine 5 mg tablet 5 mg PO QAM 04/27/22 04/27/22 History aspirin 81 mg tablet,delayed 81 mg PO DAILY 04/27/22 04/27/22 History release benzonatate 100 mg capsule 100 mg PO TID PRN Cough 04/27/22 04/27/22 History glipizide 10 mg tablet 10 mg PO DAILY 04/27/22 04/27/22 History Patient History Medical History Acute CVA (cerebrovascular accident) Acute heart failure with preserved ejection fraction (HFpEF) Acute respiratory failure with hypoxia Coronary atherosclerosis of [place] coronary vessel Essential (primary) hypertension Lumbago Other and unspecified hyperlipidemia Type 2 diabetes mellitus without complications Weakness of right upper extremity Surgical History History of cataract surgery S/P cholecystectomy Family History Mother , age 70 of a stroke and congestive heart failure Stroke CHF (congestive heart failure) Father , in his 70s of an [place] Myocardial infarction Social History Smoking Status: Former smoker packs per day: 4; Hx Alcohol Use: Yes Alcohol type: beer Alcohol Intake Frequency Comment: up to 1 beer to her day. 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 Feels Safe at Home: Yes Assistive Devices: Cane and Walker Review of Systems Constitutional: + fever and + malaise Gastrointestinal: + abdominal pain (RLQ), + nausea, + vomiting and + diarrhe a/loose stools; no blood in stools and no melena Physical Exam Constitutional: WD/WN, vitals as above Respiratory: normal respiratory effort, lungs clear to auscultation Cardiovascular: RRR, no murmur, no edema Gastrointestinal (Abdomen): Inspection/Auscultation: abdomen not distended Percussion/Palpation: + abdomen tender (RLQ), + guarding (RLQ) and abdomen soft Results & Data ([facility]) Vital Signs (Past 12 Hours) Vital Signs Temp Pulse Pulse Resp BP BP Pulse Ox 04/27/22 15:00 114 H 19 134/62 93 04/27/22 14:34 117 H 24 124/72 94 04/27/22 13:00 109 H 24 140/75 97 04/27/22 13:29 88 L 04/27/22 12:38 97 H 19 144/61 H 98 04/27/22 12:23 37.7 C H 115 H 20 160/76 H 94 O2 Del Method O2 Flow Rate 04/27/22 15:00 Nasal Cannula 2 04/27/22 14:34 Nasal Cannula 2 04/27/22 13:00 Nasal Cannula 2 04/27/22 13:29 Room Air 0 04/27/22 12:38 Room Air 04/27/22 12:23 Room Air PG Care Time/CCT Total # of Minutes Spent Total Time Spent with Patient: Total time spent is greater than 50% in coordination of care (as documented) at patient's floor/unit and/or counseling patient: Coding Level of Care Code 66009 Initial Inpt Care Lvl 1 Diagnoses Ileocolitis K52.9
--- NOTE | 2022-04-27 15:48 | History & Physical Report ---
Date of Service April 27, 2022 Assessment & Plan (1) Ileocolitis: (2) Sepsis: (3) Abdominal pain: Plan: Patient is 81 y/o F with PMH HTN, dyslipidemia, chronic diastolic heart failure, CAD, DM II, CVA, hyperparathyroidism, GERD presented to ER wtih c/o RLQ abdom inal pain, N/V/D started yesterday. In ER T: 37.7C, P: 115, R: 20, BP: 160/76, 94% on RA WBC: 22. UA not consistent with UTI CT ABD/PELVIS: 1. Mild circumferential thickening within the ascending colon with mild pericolonic fat stranding. There is also mild circumferential thickening of the distal terminal ileum near the ileocecal valve. This is consistent with a nonspecific ileocolitis and favors an infectious or inflammatory process. A portal colopathy could also a similar appearance but is considered less likely. 2. Cirrhotic liver. 3. There are 2 irregular nodule within the left lower lobe with the largest measuring 8 mm. Follow-up chest CT in 6 months is recommended to ensure stability/resolution. 4. Right-sided nephrolithiasis. No ureteral stones. No hydronephrosis. 5. A 7.2 cm right ovarian cyst. This is considered to be pathologic in a postmenopausal female. Follow-up nonemergent gynecologic consultation recommended. CXR: Cardiomegaly with mild central pulmonary vascular congestion. This is similar to the prior study In ER given 1L NSS, Zosyn, Zofran, Morphine 4mg IV Blood cultures pending. Obtained after initial IV antibiotics Continue Zosyn Additional IVF Stool culture pending Lactate pending. Trend lactate General surgery was consulted by ER. No acute surgical intervention. Recommended ice chips and advance to clear liquid diet as tolerated If no improvement consider GI consult CBC, CMP in am (4) Abnormal EKG: (5) Elevated troponin I level: Plan: Patient reports history CAD with stent placement in the Initial high-sensitivity troponin: 395. Repeat 400. EKG: Sinus tachycardia, ST depression lateral leads Denies chest pain, shortness of breath DDx: ACS, demand ischemia Trend troponin Will start heparin EKG as needed chest pain EKG a.m. Echo Continue aspirin, Plavix, simvastatin, metoprolol tartrate Cardiology consult (6) Hypoxia: Plan: In ER Initial O2 sat 94% on RA. Was noted to drop to 88% on RA after receiving 4mg IV morphine Suspect secondary to narcotics Will monitor Supplemental oxygen as needed, wean when able (7) Leg edema: Plan: right worse than left leg edema BLE Venous Doppler: No DVT within the right or left lower extremity (8) Chronic heart failure with preserved ejection fraction: Plan: 01/25/2022 echo: EF: 60-65%, severe mitral annular calcification, no evidence of interatrial shunt Appears to be dehydrated currently Hold Lasix and monitor (9) Ovarian mass, right: (10) Abnormal CT scan: Plan: CT ABD/PELVIS: There are 2 irregular nodule within the left lower lobe with the largest measuring 8 mm. Follow-up chest CT in 6 months is recommended to ensure stability/resolution. 7.2 cm right ovarian cyst. This is considered to be pathologic in a postmenopausal female. Follow-up nonemergent gynecologic consultation recommended. Will need outpatient follow up with gynecology Will need outpatient repeat CT chest in 6 months (11) CVA (cerebral vascular accident): Plan: Continue aspirin, Plavix, simvastatin (12) DM type 2 (diabetes mellitus, type 2): Plan: A1c: 6.7 on 03/07/22 Hold metformin and home insulin Basal bolus insulin per protocol (13) Essential (primary) hypertension: Plan: Continue amlodipine, losartan, metoprolol tartrate (14) Microcytic anemia: Plan: Hgb: 10.1. Baseline ~9 + Schistocytes Peripheral smear pending (15) Hyperparathyroidism: Plan: Patient not interested in surgery Previously followed with [facility] endocrinology. Last seen in 2017 Continue cinacalcet (16) GERD (gastroesophageal reflux disease): Plan: Continue PPI DVT Prophylaxis On Heparin IV DNR/DNI as per discussion with pt Follows with Dr Al for routine care Pt was seen and care coordinated with Dr Lyons. See addendum History of Present Illness Chief Complaint: abdominal pain Primary Care Provider: Alexy Al MD Patient is 81 y/o F with PMH HTN, dyslipidemia, chronic diastolic heart failure, CAD, DM II, CVA, hyperparathyroidism, GERD presented to ER [facility] c/o abdominal pain started yesterday. History obtained from patient and chart review. Patient reports yesterday sudden onset of diarrhea, nausea and vomiting. Reports approximately 4-5 episodes of diarrhea, last was this morning prior to ER arrival. Approximately 10 episodes of vomiting. Then started with RLQ sharp and dull abdominal pain. Patient states ate sub yesterday and significant other had other half of sub. No other ill contacts. Denies chills, known fever, diaphoresis, SOB, CP. Here in ER patient states nausea is much improved and is requesting food. Reports chronic cough in morning of yellow sputum. Denies any increased cough. States chronic BLE with right leg chronically more swollen than left. Recent hospitalization 01/22/2022-01/29/2022 for acute hypoxic respiratory failure secondary to acute on chronic CHF, pneumonia, patient also had acute CVA. Denies hematemesis, melena, hematochezia, BROWN, dizziness, syncope, vision changes, neck pain, CP, SOB, orthopnea, palpitations, sore throat, choking, otalgia, rhinorrhea, paresthesias, extremity weakness, rashes, urinary symptoms. Allergies Allergy/AdvReac Type Severity Reaction Status Date / Time No Known Allergies Allergy Verified 04/27/22 15:53 Home Medications Medication Instructions Recorded Confirmed Type alendronate 70 mg tablet 70 mg PO WK 01/22/22 04/27/22 History biotin 1 mg tablet 1 mg PO TID 01/22/22 04/27/22 History cinacalcet 30 mg tablet 30 mg PO DAILY 01/22/22 04/27/22 History glucosamine-chondroitin 250 mg-200 1 tab PO DAILY 01/22/22 04/27/22 History mg tablet (Osteo Bi-Flex) insulin human U-100 NPH-regulr See Rx Instructions .Route .COMPLEX 01/22/22 04/27/22 History 70-30 mix 100 unit/mL subcutaneous susp (Novolin 70/30 U-100 Insulin) losartan 25 mg tablet 25 mg PO DAILY 01/22/22 04/27/22 History metformin 1,000 mg tablet 1,000 mg PO BID 01/22/22 04/27/22 History dfswjilcgvkc-iiuqlpru-qwnsfw tablet 1 tab PO DAILY 01/22/22 04/27/22 History potassium gluconate 595 mg (99 mg) 595 mg PO DAILY 01/22/22 04/27/22 History tablet simvastatin 10 mg tablet 10 mg PO DAILY 01/22/22 04/27/22 History vitamin B complex 1 tab PO DAILY 01/22/22 04/27/22 History clopidogrel 75 mg tablet 75 mg PO QAM #60 tabs 01/29/22 04/27/22 Rx furosemide 40 mg tablet (Lasix) 40 mg PO DAILY #30 tabs 01/29/22 04/27/22 Rx magnesium oxide 400 mg (241.3 mg 400 mg PO DAILY #60 tabs 01/29/22 04/27/22 Rx magnesium) tablet metoprolol tartrate 25 mg tablet 12.5 mg PO BID #30 tabs 01/29/22 04/27/22 Rx pantoprazole 40 mg tablet,delayed 40 mg PO DAILY #30 tabs 01/29/22 04/27/22 Rx release amlodipine 5 mg tablet 5 mg PO QAM 04/27/22 04/27/22 History aspirin 81 mg tablet,delayed 81 mg PO DAILY 04/27/22 04/27/22 History release benzonatate 100 mg capsule 100 mg PO TID PRN Cough 04/27/22 04/27/22 History glipizide 10 mg tablet 10 mg PO BID 04/27/22 04/27/22 History Past Med/Surg History Medical History (Updated 04/27/22 @ 21:55 by Macey Lyons, DO) Acute CVA (cerebrovascular accident) Acute heart failure with preserved ejection fraction (HFpEF) Acute respiratory failure with hypoxia Coronary atherosclerosis of [place] coronary vessel CVA (cerebral vascular accident) Essential (primary) hypertension Lumbago Other and unspecified hyperlipidemia Type 2 diabetes mellitus without complications Weakness of right upper extremity Surgical History History of cataract surgery S/P cholecystectomy Family History Mother , age 70 of a stroke and congestive heart failure Stroke CHF (congestive heart failure) Father , in his 70s of an [place] Myocardial infarction Social History Smoking Status: Former smoker packs per day: 4; Hx Alcohol Use: No Hx Substance Use: No Preferred Language: [place] Islander Communication Ability: Effective Entry Level Automotive Technician Required: No Beliefs That Will Affect Care: None marital status: Current Living Situation: Spouse current occupational status: retired current occupation: Multiple different jobs retiring in her 50s. Feels Safe at Home: Yes Assistive Devices: Cane and Walker Review of Systems Review of Systems: All systems reviewed & are unremarkable except as noted in HPI & below Physical Exam Physical Exam: General: no distress, overweight Head: normocephalic, atraumatic Eyes: conjunctiva non-injected, anicteric ENT: normal inspection external ears, nose, mucous membranes dry Neck: supple, trachea midline Lungs: clear, no respiratory distress, no wheezing/rhonchi/rales CV: RRR, no murmur, +1pretibial edema Abd: protuberant, normal BS, soft, +tenderness to palpation RLQ, LLQ Ext: no cyanosis, no erythema, no calf tenderness; RLE larger than LLE with increased warmth. Non-tender. Neuro: A&O x 3, no focal deficits noted, normal affect Skin: warm, dry Results & Data Results & Data ([facility]) Vital Signs (Past 12 Hours) Vital Signs Temp Pulse Pulse Resp BP BP Pulse Ox 04/27/22 15:30 116 H 17 136/61 90 04/27/22 15:00 114 H 19 134/62 93 04/27/22 14:34 117 H 24 124/72 94 04/27/22 13:00 109 H 24 140/75 97 04/27/22 13:29 88 L 04/27/22 12:38 97 H 19 144/61 H 98 04/27/22 12:23 37.7 C H 115 H 20 160/76 H 94 O2 Del Method O2 Flow Rate 04/27/22 15:30 Nasal Cannula 2 04/27/22 15:00 Nasal Cannula 2 04/27/22 14:34 Nasal Cannula 2 04/27/22 13:00 Nasal Cannula 2 04/27/22 13:29 Room Air 0 04/27/22 12:38 Room Air 04/27/22 12:23 Room Air Laboratory Results Short CBC 04/27/22 Range/Units 12:51 WBC 22.11 H (4.8-10.8) K/ul Hgb 10.1 L (12.0-16.0) g/dl Hct 32.8 L (34.1-44.9) % Plt Count 340 (130-400) K/uL BMP 04/27/22 12:51 Sodium 136 Potassium 3.9 Chloride 99 Carbon Dioxide 18 L BUN 16 Creatinine 0.81 Glucose 230 H Calcium 9.6 Liver Function 04/27/22 Range/Units 12:51 Total Bilirubin 1.4 H (0.2-1.0) mg/dl AST 30 (13-39) U/L ALT 17 (7-52) U/L Alkaline Phosphatase 48 (34-104) U/L Albumin 3.8 (3.4-5.0) gm/dl Urine 04/27/22 Range/Units 14:28 Urine Color Yellow Urine Appearance Clear (Clear) Urine pH 5.0 (4.5-7.5) Ur Specific [place] 1.015 (1.000-1.030) Urine Protein Trace H (Negative) Urine Glucose (UA) Negative (Negative) Diagnostic Findings Abdomen/Pelvis CT 04/27/22 13:[address] WITH IV CONTRAST CT DOSE: 908.81 mGycm HISTORY: Right lower quadrant pain. TECHNIQUE: Multiaxial CT images of the abdomen and pelvis were performed following the use of intravenous contrast. A dose lowering technique was utilized adhering to the principles of ALARA. COMPARISON STUDY: None. FINDINGS: Interstitial thickening at the lung bases is noted. This may be chronic. There are mild dependent changes at the lung bases. Partially visualized 6 mm nodule within the left lower lobe there is an additional 8 mm irregular nodule within the left lower lobe on image 29. No pneumoperitoneum. No pneumatosis. No fractures within the visualized osseous structures. The heart is borderline enlarged. Small right upper quadrant abdominal wall defect/hernia measuring 2 cm. This favors a prior laparoscopic port site given the prior cholecystectomy. There are are scattered dropped gallstones within the right side of the abdomen and within the anterior abdominal wall measuring up to 2.3 cm. Nodular contour to the liver consistent with cirrhosis. Moderate bile duct dilatation likely due to the patient's postcholecystectomy state. The spleen, pancreas, and right adrenal gland are unremarkable. There is mild thickening of the left adrenal gland. There is a 4 mm stone within the right kidney. No left renal calculi. No ureteral calculi. No hydronephrosis. There are few scattered hypodensities within the kidneys. The majority these are technically too small to characterize but statistically represent cysts. No retroperitoneal lymphadenopathy. 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 No pelvic lymphadenopathy or pelvic free fluid. The bladder is unremarkable. Prior hysterectomy. There is a 7.2 cm right ovarian cyst. This could be pathologic in a postmenopausal female. Colonic diverticulosis. No evidence for acute diverticulitis. Mild circumferential thickening within the ascending colon with mild pericolonic fat stranding. There is also mild circumferential thickening of the distal terminal ileum near the ileocecal valve. This is consistent with a nonspecific ileocolitis and favors an infectious or inflammatory process. A portal colopathy could also a similar appearance but is considered less likely. No evidence for bowel obstruction. IMPRESSION: 1. Mild circumferential thickening within the ascending colon with mild pericolonic fat stranding. There is also mild circumferential thickening of the distal terminal ileum near the ileocecal valve. This is consistent with a nonspecific ileocolitis and favors an infectious or inflammatory process. A portal colopathy could also a similar appearance but is considered less likely. 2. Cirrhotic liver. 3. There are 2 irregular nodule within the left lower lobe with the largest measuring 8 mm. Follow-up chest CT in 6 months is recommended to ensure stability/resolution. 4. Right-sided nephrolithiasis. No ureteral stones. No hydronephrosis. 5. A 7.2 cm right ovarian cyst. This is considered to be pathologic in a postmenopausal female. Follow-up nonemergent gynecologic consultation r ecommended. 6. Additional findings as described above. ACT 112: Negative or not required by law. Electronically signed by: Pee Parker M.D. 04/27/2022 3:01 PM Chest X-Ray 04/27/22 13:10 XR chest 1V portable HISTORY: Shortness of breath. Right lower quadrant abdominal pain. COMPARISON: Chest 01/31/2022. FINDINGS: The heart remains enlarged. There is mild pulmonary vascular congestion without overt edema. This remains unchanged. Small left basilar linear density favors scarring or subsegmental atelectasis. Otherwise, no new focal lung consolidations to suggest a pneumonia. There are calcifications within the aortic knob. IMPRESSION: Cardiomegaly with mild central pulmonary vascular congestion. This is similar to the prior study ACT 112: Negative or not required by law. Electronically signed by: Pee Parker M.D. 04/27/2022 1:36 PM Venous Doppler Study 12/14/22 16:59 BILATERAL LOWER EXTREMITY VENOUS DOPPLER HISTORY: Lower extremity pain. COMPARISON STUDY: None. FINDINGS: There is normal compressibility, flow, and augmentation within the bilateral lower extremity deep venous systems. IMPRESSION: No DVT within the right or left lower extremity. ACT 112: Negative or not required by law. Electronically signed by: Pee Parker M.D. 04/27/2022 5:59 PM ECG Rate (beats per minute): 114 Rhythm: sinus tachycardia Findings: + ST depression (Lateral) Supervising Physician Co-Signing Physician Notes I have seen and examined the patient and have discussed the case with the provider above. I agree with the assessment and plan as stated with the following exceptions. Patient is an 81-year-old female who presented with abdominal pain nausea vomiting and diarrhea. Clinical picture is consistent with severe sepsis with an elevated lactate to 4. Volume resuscitation with intravenous fluids were started in the ER. On exam she is tachycardic but is in no acute distress. She is well-nourished well-developed and neurologically demonstrates no focal deficits. She has diffuse abdominal tenderness to palpation worse in the lower quadrants bilaterally. She has warm dry skin that is elevated and temperature. Notably her lower extremities reveal 1+ edema bilaterally with the right leg more swollen than the left. The right leg is also warmer to touch than the left leg and there is no erythema or rashes present. Lungs are clear to auscultation with no wheezing rhonchi or rales. Cardiac exam reveals S1/S2 present with no evidence of murmurs gallops or rubs. Work-up in the ER includes a CBC with an elevated white blood cell count of 22 with a left shift. This was later checked and patrice to 30 K. H&H is 10.1/33 and platelets are within normal limits. She notably has evidence of schistocytes on differential. 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 There is no evidence of MAHA or TTP, and no evidence of DVT in bilateral lower extremity ultrasound, no clinical evidence of DIC. Peripheral smear is pending. INR is 1.2, BMP reveals evidence of high anion gap metabolic acidosis. Glucose is elevated at 230. She has an elevated troponin initially at 395, 400, 498. EKG reveals ST depression in the lateral leads. She was started on heparin drip for possible ACS. There is no chest pain present. Chest x-ray reveals mild central pulmonary vascular congestion. Abdomen pelvis CT with IV contrast revealed several notable findings including colitis in the ascending colon with thickening of the ileocecal valve. Liver is cirrhotic, there are 2 irregular nodules in the lungs which future imaging is recommended. She has right-sided nephrolithiasis with no ureteral stones or hydronephrosis. There is a 7.2 cm right ovarian cyst considered to be pathologic in a postmenopausal female with nonemergent gynecologic consultation recommended. She also has paraesophageal perigastric varices in the setting of cirrhosis of the liver. 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 There is no evidence of acute diverticulitis. Overall this is an 81-year-old well-controlled diabetic female with risk factors for ACS presenting with severe sepsis secondary to ileocolitis. The source for her infection is unknown with stool culture pending. There was no identified abnormal food intake that could have made her sick. She did have a cheese steak but her had the other half and he is not ill. She has no history of GI issues in the past per her report. Also concerning is her troponin elevation in the setting of tachycardia and severe sepsis with EKG changes. Generally spe aking this is a stress test and she has positive findings. Consulting cardiology and placing the patient on heparin. Additional boluses of LR were given for continued resuscitation. It is noted that she is 90% oxygen saturation on 2 L/min nasal cannula. Goal resuscitation is 30 cc/kg which would put us approximately 2400 cc, however, will not give that full amount given the vascular congestion seen on chest x-ray and ongoing hypoxia. Continue monitoring closely on telemetry overnight. We will repeat lactate later this evening. Case signed out to izabel. DO Eloy. (1) Sepsis Sepsis type: sepsis due to unspecified organism Sepsis acute organ dysfunction status: without acute organ dysfunction Qualified Code(s): A41.9 - Sepsis, unspecified organism
--- NOTE | 2022-04-27 16:28 | Electrocardiogram Report ---
Test Reason : Blood Pressure : / mmHG Vent. Rate : 114 BPM Atrial Rate : 114 BPM P-R Int : 168 ms QRS Dur : 088 ms QT Int : 310 ms P-R-T Axes : 016 028 151 degrees QTc Int : 427 ms Poor data quality, interpretation may be adversely affected Sinus tachycardia Old Anterior infarct (cited on or before 22-JAN-2022) Marked ST abnormality, possible lateral subendocardial injury Abnormal ECG When compared with ECG of 31-JAN-2022 08:47, ST now depressed in Lateral leads Confirmed by Roosevelt Pereyra ([id number]) on 04/27/2022 4:28:38 PM Referred By: REFERRED SELF Confirmed By:Roosevelt Pereyra
[2022-04-27] MEDS ORDERED: SODIUM CHLORIDE 0.9% 1000ML 1,000 ML IV ONE (17:58)
[2022-04-27] MEDS ORDERED: Heparin IV Adult Wt-Based Standard WITH Bolus Protocol IV SCH (18:00)
--- NOTE | 2022-04-27 18:01 | Ultrasound Report ---
BILATERAL LOWER EXTREMITY VENOUS DOPPLER HISTORY: Lower extremity pain. COMPARISON STUDY: None. FINDINGS: There is normal compressibility, flow, and augmentation within the bilateral lower extremit y deep venous systems. IMPRESSION: No DVT within the right or left lower extremity. ACT 112: Negative or not required by law. Electronically signed by: Pee Parker M.D. 04/27/2022 5:59 PM
[2022-04-27] MEDS ORDERED: GLUCOSE 40% GEL 15 GM TUBE PO PRN (19:04)
[2022-04-27] MEDS ORDERED: ONDANSETRON INJ 2 MG/ML 2 ML VIAL IV PRN (19:04)
[2022-04-27] MEDS ORDERED: CARBOHYDRATES FOR HYPOGLYCEMIA PO PRN (19:04)
[2022-04-27] MEDS ORDERED: DEXTROSE 50% 50 ML SYRINGE IV PRN (19:04)
[2022-04-27] MEDS ORDERED: GLUCOSE 10 TAB/TUBE PO PRN (19:04)
[2022-04-27] MEDS ORDERED: GLUCAGON FOR INJ 1 MG VIAL SQ PRN (19:04)
[2022-04-27] MEDS ORDERED: HEPARIN SODIUM/DEXTROSE 25,000 UNITS/500 ML BAG IV SCH (19:30)
[2022-04-27] MEDS ORDERED: HEPARIN SOD (PORCINE) 1000 UNIT/ML IV ONE (19:30)
[2022-04-27] MEDS ORDERED: SODIUM CHLORIDE 0.9% 1000ML 1,000 ML IV SCH (19:30)
[2022-04-27] MEDS ORDERED: LACTATED RINGER'S 1,000 ML IV ONE (19:46)
[2022-04-27] MEDS: ACETAMINOPHEN 1,000 MG/100 ML VIAL IV SCH (20:06)
[2022-04-27] MEDS: METOPROLOL TARTRATE 25 MG TAB PO SCH (20:18)
[2022-04-27 20:47] LABS: Hematocrit (blood only) 29.5 % (34.1-44.9); Hemoglobin 9.2 g/dl (12.0-16.0); Mean Corpuscular Hgb Conc 31.2 g/dL (32.0-36.0); Mean Corpuscular Volume 67.2 fL (80.0-100.0); RDW Coefficient of Variation 22.8 % (11.5-14.5); RDW Standard Deviation 53.5 fL (36.4-46.3); Red Blood Count 4.39 M/uL (3.93-5.22); White Blood Count 29.49 K/ul (4.8-10.8)
[2022-04-27 21:09] LABS: Basophils # (auto) 0.07 K/uL (0-0.2); Basophils % (auto) 0.2 %; Echinocytes 1+; Eosinophils # (auto) 0.04 K/uL (0-0.50); Eosinophils % (auto) 0.1 %; Immature Granulocytes # (auto) 0.28 K/uL (0.00-0.02); Immature Granulocytes % (auto) 0.9 %; Lymphocytes # (auto) 2.42 K/uL (1.2-3.4); Lymphocytes % (auto) 8.2 %; Mean Platelet Volume 10.3 fL (9.4-12.3); Monocytes # (auto) 2.89 K/uL (0.24-0.82); Monocytes % (auto) 9.8 %; Neutrophils # (auto) 23.79 K/uL (1.4-6.5); Neutrophils % (auto) 80.8 %; Ovalocytes 1+; Platelet Count 301 K/uL (130-400); Polychromasia 1+; Schistocytes 1+; Target Cells 1+
[2022-04-27 21:14] LABS: INR 1.2 (0.9-1.1)
[2022-04-27] MEDS: PIPERACILLIN/TAZOBACTAM 3.375 GM in DEXTROSE 5% 100 ML IV SCH (21:49)
[2022-04-27] MEDS: LANTUS PER UNIT CHARGE SQ SCH (21:55)
[2022-04-27] MEDS: INSULIN ASPART PER UNIT SC SCH (21:55)
[2022-04-27] MEDS: MoRPHine SULFATE 2 MG/ML CARP IV PRN (22:01)
[2022-04-27 22:27] LABS: Partial Thromboplastin Time 27.4 Seconds (21.0-31.0)
[2022-04-28] MEDS ORDERED: SODIUM CHLORIDE 0.9% 500 ML IV SCH (00:15)
[2022-04-28] MEDS ORDERED: INSULIN ASPART PER UNIT SC ONE (01:00)
[2022-04-28] MEDS: MoRPHine SULFATE 2 MG/ML CARP IV PRN ×2 (02:05→10:28)
[2022-04-28] MEDS ORDERED: FUROSEMIDE INJ 20 MG/2 ML VIAL IV ONE ×3 (03:07→16:02)
[2022-04-28 04:31] LABS: Hematocrit (blood only) 27.2 % (34.1-44.9); Hemoglobin 8.4 g/dl (12.0-16.0); Mean Corpuscular Hemoglobin 21.1 pg (25.0-34.0); Mean Corpuscular Hgb Conc 30.9 g/dL (32.0-36.0); Mean Corpuscular Volume 68.2 fL (80.0-100.0); RDW Coefficient of Variation 22.5 % (11.5-14.5); RDW Standard Deviation 54.2 fL (36.4-46.3); Red Blood Count 3.99 M/uL (3.93-5.22); White Blood Count 26.37 K/ul (4.8-10.8)
[2022-04-28] MEDS: ACETAMINOPHEN 1,000 MG/100 ML VIAL IV SCH ×3 (04:36→20:10)
[2022-04-28] MEDS: PIPERACILLIN/TAZOBACTAM 3.375 GM in DEXTROSE 5% 100 ML IV SCH ×3 (04:39→20:34)
[2022-04-28 04:44] LABS: Platelet Count 279 K/uL (130-400)
[2022-04-28 05:01] LABS: Albumin Level 3.1 gm/dl (3.4-5.0); BUN Creatinine Ratio 18.8 (10-20); Bilirubin,Total 1.3 mg/dl (0.2-1.0); Calcium 7.8 mg/dl (8.5-10.1); Est GFR (African American) 80.1 ml/min; Est GFR (Non-African American) 69.1 ml/min; Globulin 3.2 gm/dl (2.5-4.0); Potassium 3.7 mmol/L (3.5-5.1); Total Protein 6.3 gm/dl (6.0-8.3)
[2022-04-28 05:18] LABS: Anisocytosis Present; Basophils # (auto) 0.12 K/uL (0-0.2); Basophils % (auto) 0.5 %; Echinocytes 1+; Eosinophils # (auto) 0.02 K/uL (0-0.50); Eosinophils % (auto) 0.1 %; Hypochromasia Present; Immature Granulocytes # (auto) 0.16 K/uL (0.00-0.02); Immature Granulocytes % (auto) 0.6 %; Lymphocytes # (auto) 2.11 K/uL (1.2-3.4); Microcytosis Present; Monocytes # (auto) 2.11 K/uL (0.24-0.82); Neutrophils # (auto) 21.85 K/uL (1.4-6.5); Neutrophils % (auto) 82.8 %; Poikilocytosis Present; Polychromasia 1+; Target Cells 1+; Tear Drop Cells 1+
[2022-04-28 05:21] LABS: Partial Thromboplastin Time 138.2 Seconds (21.0-31.0)
[2022-04-28] MEDS: METOPROLOL TARTRATE 25 MG TAB PO SCH ×2 (08:08→20:12)
[2022-04-28] MEDS: ASPIRIN 81 MG ECTAB PO SCH (08:09)
[2022-04-28] MEDS: SIMVASTATIN 10 MG TAB PO SCH (08:09)
[2022-04-28] MEDS: CLOPIDOGREL BISULFATE 75 MG TAB PO SCH (08:09)
[2022-04-28] MEDS: LOSARTAN POTASSIUM 25 MG TAB PO SCH (08:09)
[2022-04-28] MEDS: CINACALCET HCL 30 MG TAB PO SCH (08:09)
[2022-04-28] MEDS: MAGNESIUM OXIDE 400 MG TAB PO SCH (08:09)
[2022-04-28] MEDS: PANTOprazole 40 MG TAB PO SCH (08:09)
[2022-04-28] MEDS: INSULIN ASPART PER UNIT SC SCH ×4 (08:10→20:33)
[2022-04-28] MEDS: LANTUS PER UNIT CHARGE SQ SCH ×2 (08:10→20:33)
--- NOTE | 2022-04-28 08:15 | XRay Report ---
SINGLE VIEW CHEST CLINICAL HISTORY: Hypoxia. FINDINGS: An AP, portable, upright chest radiograph is compared to study dated 04/27/2022. The examin ation is degraded by portable technique, apical lordotic positioning, and patient rotation. The hear t is enlarged noting atherosclerotic calcification of the thoracic aorta. There is pulmonary vascular congestion and evidence of pulmonary edema. Scarring/atelectasis is noted at the lung bases. No larg e pleural effusion or pneumothorax is seen. The skeletal structures are osteopenic. The bony thorax i s grossly intact. IMPRESSION: Cardiomegaly with congestive failure and pulmonary edema. This has worsened as compared t o yesterday. ACT 112: Negative or not required by law. Electronically signed by: Kahlil Mojica M.D. 04/28/2022 8:14 AM
[2022-04-28] MEDS ORDERED: ACETAMINOPHEN 325 MG TAB PO PRN (09:00)
[2022-04-28] MEDS ORDERED: amLODIPine BESYLATE 5 MG TAB PO SCH (09:00)
[2022-04-28] MEDS: THIAMINE HCL 100 MG TAB PO SCH (10:28)
[2022-04-28] MEDS: MULTIVITAMIN TAB PO SCH (10:28)
--- NOTE | 2022-04-28 11:44 | Surgery Progress Note ---
Date of Service April 28, 2022 Assessment & Plan (1) Colitis: Plan: Patient admitted with ileocolitis-infectious versus inflammatory Continue IV antibiotics Limited p.o. intake and bowel rest Does not appear to require urgent surgical intervention But will continue to monitor closely Admission and Anticipated Discharge Date Admission Date: April 27, 2022 Subjective Patient with fever last night, temp now normal She is awake and alert and still having abdominal pain but slightly less Does require some narcotic Review of Systems Review of Systems: All systems reviewed & are unremarkable except as noted in HPI & below Physical Exam Physical Exam: Patient mildly distended with tenderness mid right lower abdomen Relatively isolated site and area of her colitis Constitutional: no acute distress Eyes: + anicteric sclerae Respiratory: normal respiratory effort; no respiratory distress Cardiovascular: Rate/Rhythm: regular rate Gastrointestinal (Abdomen): Mild distention Musculoskeletal: Head/Neck/Chest: head atraumatic Skin: no rashes, warm and dry Neurologic: awake Psychiatric: Orientation: alert Results & Data ([facility]) Vital Signs (Past 12 Hours) Vital Signs Temp Pulse Pulse Resp BP BP Pulse Ox 04/28/22 11:30 37.3 C 91 H 18 99/47 L 91 04/28/22 09:00 04/28/22 07:54 37.9 C H 105 H 18 116/59 L 91 04/28/22 07:18 106 H 04/28/22 06:26 38.2 C H 106 H 20 118/58 L 91 04/28/22 05:17 37.5 C 103 H 20 107/48 L 91 04/28/22 02:21 36.9 C 103 H 20 121/57 L 91 O2 Del Method O2 Flow Rate 04/28/22 11:30 Nasal Cannula 6 04/28/22 09:00 Nasal Cannula 6 04/28/22 07:54 Nasal Cannula 6 04/28/22 07:18 04/28/22 06:26 Nasal Cannula 6 04/28/22 05:17 Nasal Cannula 6 04/28/22 02:21 Nasal Cannula 4 PG Care Time/CCT Total # of Minutes Spent Total Time Spent with Patient: Total time spent is greater than 50% in coordination of care (as documented) at patient's floor/unit and/or counseling patient: Coding Level of Care Code 64135 Inpt Consult Level 3 Diagnoses Colitis K52.9
[2022-04-28] MEDS ORDERED: MoRPHine SULFATE 2 MG/ML CARP IV PRN (11:51)
--- NOTE | 2022-04-28 12:43 | Cardiology Consultation ---
Date of Consultation April 28, 2022 Assessment & Plan (1) Abnormal CT scan: (2) Abdominal pain: (3) Sepsis: (4) Ileocolitis: (5) Elevated troponin I level: (6) Abdominal pain, acute, right lower quadrant: (7) Abnormal EKG: (8) Vomiting: (9) Coronary atherosclerosis of [place] coronary vessel: (10) Mitral stenosis: (11) Chronic heart failure with preserved ejection fraction (HFpEF): Plan Given the clinical setting for which the patient presented the emergency department along with the CT findings of her abdomen I would recommend the patient be treated for her acute ileocolitis and concomitant sepsis This minimal troponin elevation does not represent acute coronary syndrome and the patient denies experiencing any cardiac symptoms EKG personally reviewed without significant ischemic changes, slight lateral T wave abnormalities likely due to lead placement for patient who is writhing in pain 2D echocardiogram unchanged No further cardiac testing or invention necessary at this time History of Present Illness Reason for Consultation: elevated troponin level Requesting Physician: EUGENE Attending Physician: Tanner Holbrook MD History of Present Illness It was my pleasure to see Mrs. Russell in cardiac consultation today April 28, 2022. She is a very pleasant 81-year-old woman who is well-known to our cardiology practice. She presented to [facility] emergency department on 04/27/2022 with complaints of sudden onset of diarrhea, nausea, abdominal pain and vomiting. Upon arrival to the emergency department a CT scan showed that she was suffering from ileocolitis. She was also found to be septic. A troponin level was drawn and noted to be slightly elevated and cardiology was consulted. Currently, she is still in significant amount of abdominal pain but denies any recent chest pain or shortness of breath. Allergies Allergy/AdvReac Type Severity Reaction Status Date / Time No Known Allergies Allergy Verified 04/27/22 15:53 Home Medications Medication Instructions Recorded Confirmed Type alendronate 70 mg tablet 70 mg PO WK 01/22/22 04/27/22 History biotin 1 mg tablet 1 mg PO TID 01/22/22 04/27/22 History cinacalcet 30 mg tablet 30 mg PO DAILY 01/22/22 04/27/22 History glucosamine-chondroitin 250 mg-200 1 tab PO DAILY 01/22/22 04/27/22 History mg tablet (Osteo Bi-Flex) insulin human U-100 NPH-regulr See Rx Instructions .Route .COMPLEX 01/22/22 04/27/22 History 70-30 mix 100 unit/mL subcutaneous susp (Novolin 70/30 U-100 Insulin) losartan 25 mg tablet 25 mg PO DAILY 01/22/22 04/27/22 History metformin 1,000 mg tablet 1,000 mg PO BID 01/22/22 04/27/22 History ucprnogmtikg-jvndseki-jpofyq tablet 1 tab PO DAILY 01/22/22 04/27/22 History potassium gluconate 595 mg (99 mg) 595 mg PO DAILY 01/22/22 04/27/22 History tablet simvastatin 10 mg tablet 10 mg PO DAILY 01/22/22 04/27/22 History vitamin B complex 1 tab PO DAILY 01/22/22 04/27/22 History clopidogrel 75 mg tablet 75 mg PO QAM #60 tabs 01/29/22 04/27/22 Rx furosemide 40 mg tablet (Lasix) 40 mg PO DAILY #30 tabs 01/29/22 04/27/22 Rx magnesium oxide 400 mg (241.3 mg 400 mg PO DAILY #60 tabs 01/29/22 04/27/22 Rx magnesium) tablet metoprolol tartrate 25 mg tablet 12.5 mg PO BID #30 tabs 01/29/22 04/27/22 Rx pantoprazole 40 mg tablet,delayed 40 mg PO DAILY #30 tabs 01/29/22 04/27/22 Rx release amlodipine 5 mg tablet 5 mg PO QAM 04/27/22 04/27/22 History aspirin 81 mg tablet,delayed 81 mg PO DAILY 04/27/22 04/27/22 History release benzonatate 100 mg capsule 100 mg PO TID PRN Cough 04/27/22 04/27/22 History glipizide 10 mg tablet 10 mg PO BID 04/27/22 04/27/22 History Patient History Medical History Acute CVA (cerebrovascular accident) Acute heart failure with preserved ejection fraction (HFpEF) Acute respiratory failure with hypoxia Coronary atherosclerosis of [place] coronary vessel CVA (cerebral vascular accident) Essential (primary) hypertension Lumbago Other and unspecified hyperlipidemia Type 2 diabetes mellitus without complications Weakness of right upper extremity Surgical History History of cataract surgery S/P cholecystectomy Family History Mother , age 70 of a stroke and congestive heart failure Stroke CHF (congestive heart failure) Father , in his 70s of an CA Myocardial infarction Social History Smoking Status: Former smoker packs per day: 4; Hx Alcohol Use: No Hx Substance Use: No Preferred Language: Arabic Communication Ability: Effective 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 Feels Safe at Home: Yes Assistive Devices: Cane and Walker Review of Systems Review of Systems: All systems reviewed & are unremarkable except as noted in HPI & below Physical Exam Physical Exam: General: Awake, alert and oriented x 3. Mild distress due to abdominal pain HEENT: Normocephalic, atraumatic. Pupils equal, round and reactive to light and accommodation. Extraocular muscles are intact. Anicteric sclera. Moist mucous membranes. Neck: No JVD. No bruit. Cardiovascular: Regular. Positive S-4. Normal S-1 and S-2. No S-3. 3/6 mid to late systolic ejection murmur, greatest at the right sternal border, second intercostal space with radiation to the bilateral carotids. No rubs. Pulmonary: Clear to auscultation bilaterally. No rales, rhonchi, or wheezing. Abdomen: Deferred Extremities: No clubbing, cyanosis or edema. +2 pedal pulses bilaterally. Skin: Warm and dry. Results & Data ([facility]) Vital Signs (Past 12 Hours) Vital Signs Temp Pulse Pulse Resp BP BP Pulse Ox 04/28/22 11:46 90 107/63 91 04/28/22 11:30 37.3 C 91 H 18 99/47 L 91 04/28/22 09:00 04/28/22 07:54 37.9 C H 105 H 18 116/59 L 91 04/28/22 07:18 106 H 04/28/22 06:26 38.2 C H 106 H 20 118/58 L 91 04/28/22 05:17 37.5 C 103 H 20 107/48 L 91 04/28/22 02:21 36.9 C 103 H 20 121/57 L 91 O2 Del Method O2 Flow Rate 04/28/22 11:46 Oxymask 8 04/28/22 11:30 Nasal Cannula 6 04/28/22 09:00 Nasal Cannula 6 04/28/22 07:54 Nasal Cannula 6 04/28/22 07:18 04/28/22 06:26 Nasal Cannula 6 04/28/22 05:17 Nasal Cannula 6 04/28/22 02:21 Nasal Cannula 4 (1) Sepsis Sepsis type: sepsis due to unspecified organism Sepsis acute organ dysfunction status: without acute organ dysfunction Qualified Code(s): A41.9 - Sepsis, unspecified organism (2) Vomiting Nausea presence: with nausea Vomiting type: unspecified Qualified Code(s): R11.2 - Nausea with vomiting, unspecified
--- NOTE | 2022-04-28 13:05 | Hospitalist Progress Note ---
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 It first started with RLQ sharp and dull abdominal pain and then spread across lower abdomen. She is being managed for the following: #. Severe sepsis POA: WBC, HR and RR elevated at POA, LA 4.0 at admission. #. Ileocolitis #. Lower abdominal pain Admitting labs with elevated WBC at 22.11K, lactic acid elevated at 4.0. Admitting UA not consistent with UTI Admitting CTAP: Suggestive of ileocolitis. Revealed cirrhotic liver. Revealed other abnormal findings [see below]. Admitting CXR: Cardiomegaly with mild central pulmonary vascular congestion, similar to prior study. Patient received 2.5 L of IV fluid resuscitation, was hypoxic 04/27 night needing oxygen up titration, fluid was held. Patient received Zosyn, continue with Zosyn 04/27. Maintain bowel rest Await admitting blood culture, await stool culture, trend lactate to normal, hold IV fluid, patient drinking water adequately per RN. General surgery evaluated, conservative management, okay with ICU can advance to clear liquid diet as tolerated. WBC minimally downtrending, temperature getting better, continue to monitor closely, labs in AM. #. Abnormal EKG #. Elevated troponin level at presentation, likely demand ischemia Admitting troponin level 395, minimally up trended, admitting EKG with sinus tachycardia and ST depression in lateral leads. 06/28 echo: EF greater than 70%, hyperdynamic LV systolic function, grade 1 diastolic dysfunction. No segmental left ventricular wall motion abnormalities. Severe mitral annular calcification noted. Likely demand ischemia secondary to acute sepsis. Cardiology evaluated, appreciate recommendation. We will discontinue heparin drip. 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 Lasix as needed depending on clinical evaluation. Echo reviewed. will hold other BP meds for time being in favor of lasix prn #. Leg edema: some RLE edema > LLE w/ some warmth at presentation, BLE doppler negative for DVT. #. Chronic heart failure with preserved ejection fraction: 01/25/2022 echo: EF: 60-65%, severe mitral annular calcification, no evidence of interatrial shunt Patient is status post IV fluid resuscitation with some pulmonary edema worsening. Repeat echo reviewed [see above] Will use Lasix as needed with ongoing clinical evaluation #. Ovarian mass, right: #. Abnormal CT scan: Admitting CT ABD/PELVIS: There are 2 irregular nodule within the left lower lobe with the largest measuring 8 mm. Follow-up chest CT in 6 months is recommended to ensure stability/resolution. 7.2 cm right ovarian cyst. This is considered to be pathologic in a postmenopausal female. Follow-up nonemergent gynecologic consultation recommended. Will need outpatient follow up with gynecology Will need outpatient repeat CT chest in 6 months #. Other chronic medical conditions: CVA, DM type II, HTN, microcytic anemia [baseline 9], hyperparathyroidism {patient not interested in surgery, followed with [facility] endocrinology, last seen in 2017, continue Cinacalcet], GERD ---> continue home meds as able #. DVT prophylaxis: Heparin subcu #. DNR/DNI 04/28: Patient's daughter Madelyn given a phone call and updated about the current status of the patient, she voiced understanding and was agreeable to the plan of care. Admission and Anticipated Discharge Date Admission Date: April 27, 2022 Subjective Patient seen and examined at bedside as a follow-up of severe sepsis POA, ileocolitis, abdominal pain, demand ischemia. Patient was lying in bed, on 6 L oxygen via nasal cannula, overnight patient was febrile, and given 500 mL of fluid in addition to 2 L already received because her lactate was elevated, patient became hypoxic and oxygen needed to be increased to 6 L. Fluid was held. Blood pressure was good and hence a small dose of Lasix was given. Patient appeared to be in mild distress, complains of belly pain but reports some improvement compared to what she came in with, was feverish overnight, is on liquid diet, is drinking water good per RN, has not moved bowel, has not moved gas, blood pressure is on the softer side, will use Lasix as needed, continue to hold IV fluid for the time being. Patient received a dose of morphine later in the morning and needed more oxygen after that, we will try to minimize the use of morphine, will use more ketorolac. Wean down oxygen as tolerated. Physical Exam Physical Exam: GENERAL: Alert and oriented x3. mild distress, on 6L O2 via NC. HEENT: No pallor, no icterus. Pupils equal, round and reactive to light. Oral mucosa moist. NECK: No JVD, no neck masses. HEART: S1 and S2 heard. tachycardia. No murmur, no gallop. RESPIRATORY SYSTEM: Normal AP diameter. No accessory muscle use. No wheezing, b/b crackles. ABDOMEN: Soft, diffuse tender, decreased bowel sounds. CENTRAL NERVOUS SYSTEM: No facial droop. Speech is clear. Obeys simple commands. Moves extremities. EXTREMITIES: trace ble edema, no erythema seen. Results & Data Results & Data ([facility]) Vital Signs (Past 12 Hours) Vital Signs Temp Pulse Pulse Resp BP BP Pulse Ox 04/28/22 11:46 90 107/63 91 04/28/22 11:30 37.3 C 91 H 18 99/47 L 91 04/28/22 09:00 04/28/22 07:54 37.9 C H 105 H 18 116/59 L 91 04/28/22 07:18 106 H 04/28/22 06:26 38.2 C H 106 H 20 118/58 L 91 04/28/22 05:17 37.5 C 103 H 20 107/48 L 91 04/28/22 02:21 36.9 C 103 H 20 121/57 L 91 O2 Del Method O2 Flow Rate 04/28/22 11:46 Oxymask 8 04/28/22 11:30 Nasal Cannula 6 04/28/22 09:00 Nasal Cannula 6 04/28/22 07:54 Nasal Cannula 6 04/28/22 07:18 04/28/22 06:26 Nasal Cannula 6 04/28/22 05:17 Nasal Cannula 6 04/28/22 02:21 Nasal Cannula 4
[2022-04-28 15:04] LABS: Partial Thromboplastin Ratio 2.1
[2022-04-28] MEDS: KETOROLAC TROMETHAMINE 15 MG/ML VIAL IV PRN ×2 (15:47→23:22)
[2022-04-28] MEDS ORDERED: ALBUMIN 25% 100 mL 25 GM/100 ML VIAL IV ONE (16:15)
[2022-04-28] MEDS: HEPARIN SOD 5,000 UNIT/0.5 ML VIAL SQ SCH (20:11)
[2022-04-29] MEDS: ACETAMINOPHEN 1,000 MG/100 ML VIAL IV SCH ×3 (03:33→20:30)
[2022-04-29] MEDS: PIPERACILLIN/TAZOBACTAM 3.375 GM in DEXTROSE 5% 100 ML IV SCH ×2 (04:02→12:47)
--- NOTE | 2022-04-29 07:31 | Surgery Progress Note ---
Date of Service April 29, 2022 Assessment & Plan (1) Colitis: Plan: Patient is somewhat of a poor surgical candidate with her cardiopulmonary status Would continue medical management Consider operation only if this becomes a life-threatening problem May consider GI evaluation Dr. Alegria is covering over the weekend Admission and Anticipated Discharge Date Admission Date: April 27, 2022 Subjective Patient is awake and alert She does have an O2 mask in place Supine in bed most of the time She continues to have some tenderness in the abdomen but it seems like it is less and she says it is somewhat improved Her abdomen is softer Review of Systems Review of Systems: All systems reviewed & are unremarkable except as noted in HPI & below Physical Exam Physical Exam: Abdomen is less distended and softer Does have right-sided abdominal tenderness but less Constitutional: no acute distress Eyes: + anicteric sclerae Respiratory: normal respiratory effort; no respiratory distress Cardiovascular: Rate/Rhythm: regular rate Gastrointestinal (Abdomen): Mild distention Musculoskeletal: Head/Neck/Chest: head atraumatic Skin: no rashes, warm and dry Neurologic: awake Psychiatric: Orientation: alert Results & Data ([facility]) Vital Signs (Past 12 Hours) Vital Signs Temp Pulse Pulse Resp BP Pulse Ox O2 Del Method 04/29/22 07:25 93 H 04/29/22 07:00 36.7 C 91 H 95 H 105/57 L 8 L Oxymask 04/29/22 06:54 Oxymask 04/29/22 03:59 37.1 C 87 20 106/61 95 Oxymask 04/28/22 22:05 87 04/28/22 22:51 37.0 C 85 18 108/57 L 94 Oxymask 04/28/22 20:15 Oxymask 04/28/22 19:48 37 C 93 H 18 112/55 L 92 Oxymask O2 Flow Rate 04/29/22 07:25 04/29/22 07:00 04/29/22 06:54 8 04/29/22 03:59 6 04/28/22 22:05 04/28/22 22:51 10 04/28/22 20:15 8 04/28/22 19:48 10 PG Care Time/CCT Total # of Minutes Spent Total Time Spent with Patient: Total time spent is greater than 50% in coordination of care (as documented) at patient's floor/unit and/or counseling patient: Coding Level of Care Code 96319 Inpt Consult Level 3 Diagnoses Colitis K52.9
[2022-04-29] MEDS: KETOROLAC TROMETHAMINE 15 MG/ML VIAL IV PRN (07:45)
[2022-04-29] MEDS: METOPROLOL TARTRATE 25 MG TAB PO SCH ×2 (07:46→20:33)
[2022-04-29] MEDS: CINACALCET HCL 30 MG TAB PO SCH (07:46)
[2022-04-29] MEDS: SIMVASTATIN 10 MG TAB PO SCH (07:46)
[2022-04-29] MEDS: MAGNESIUM OXIDE 400 MG TAB PO SCH (07:46)
[2022-04-29] MEDS: ASPIRIN 81 MG ECTAB PO SCH (07:46)
[2022-04-29] MEDS: PANTOprazole 40 MG TAB PO SCH (07:46)
[2022-04-29] MEDS: THIAMINE HCL 100 MG TAB PO SCH (07:47)
[2022-04-29] MEDS: HEPARIN SOD 5,000 UNIT/0.5 ML VIAL SQ SCH (07:47)
[2022-04-29] MEDS: MULTIVITAMIN TAB PO SCH (07:47)
[2022-04-29] MEDS: CLOPIDOGREL BISULFATE 75 MG TAB PO SCH (07:47)
[2022-04-29] MEDS: INSULIN ASPART PER UNIT SC SCH ×4 (07:59→21:04)
[2022-04-29] MEDS: LANTUS PER UNIT CHARGE SQ SCH ×2 (07:59→21:03)
[2022-04-29 08:02] LABS: Hematocrit (blood only) 25.5 % (34.1-44.9); Hemoglobin 7.7 g/dl (12.0-16.0); Mean Corpuscular Hemoglobin 20.5 pg (25.0-34.0); Mean Corpuscular Hgb Conc 30.2 g/dL (32.0-36.0); Mean Corpuscular Volume 67.8 fL (80.0-100.0); Mean Platelet Volume 10.6 fL (9.4-12.3); Platelet Count 230 K/uL (130-400); RDW Coefficient of Variation 22.9 % (11.5-14.5); RDW Standard Deviation 54.7 fL (36.4-46.3); Red Blood Count 3.76 M/uL (3.93-5.22); White Blood Count 20.15 K/ul (4.8-10.8)
[2022-04-29 08:26] LABS: BUN Creatinine Ratio 22.5 (10-20); Calcium 7.5 mg/dl (8.5-10.1); Creatinine Clr Calc Pharmacy 50.3 ml/min; Est GFR (African American) 70.4 ml/min; Est GFR (Non-African American) 60.8 ml/min; Magnesium 1.4 mg/dl (1.7-2.4); Phosphorus 2.3 mg/dl (2.5-4.9); Potassium 3.4 mmol/L (3.5-5.1)
--- NOTE | 2022-04-29 08:36 | XRay Report ---
XR chest 1V portable HISTORY: 81 years-old Female f/u pul edema acute shortness of breath COMPARISON: Chest radiograph 04/28/2022 TECHNIQUE: AP view of the chest FINDINGS: Cardiac silhouette is enlarged. Atherosclerosis of the aorta. Pulmonary vascular congestion with inte rstitial coarsening again noted. No pneumothorax. Trace pleural effusions. Mild right hemidiaphragmat ic elevation. Degenerative changes of the shoulders and spine. IMPRESSION: Cardiomegaly with stable to slightly improved pulmonary edema and trace pleural effusions. ACT 112: Negative or not required by law. The above report was generated using voice recognition software. It may contain grammatical, syntax o r spelling errors. Electronically signed by: Abhay Smart M.D. 04/29/2022 8:34 AM
[2022-04-29 09:01] LABS: Iron < 10 mcg/dl (35-150); Unsaturated Iron Binding Cap 308 mcg/dl (155-355)
[2022-04-29] MEDS: guaiFENesin 600 MG TABCR PO SCH ×2 (09:01→20:33)
[2022-04-29] MEDS ORDERED: FUROSEMIDE INJ 20 MG/2 ML VIAL IV ONE ×3 (09:05→19:49)
[2022-04-29] MEDS ORDERED: SODIUM PHOSPHATE 3 MMOL/1 ML INFUSION IV STA (09:08)
[2022-04-29 09:14] LABS: Ferritin 59.7 ng/ml (8-388)
[2022-04-29 09:15] LABS: Vitamin B12 371 pg/ml (180-914)
[2022-04-29] MEDS ORDERED: SODIUM PHOSPHATE 15 MMOL in SODIUM CHLORIDE 0.9% 250 ML IV ONE (09:30)
[2022-04-29] MEDS: POTASSIUM CHLORIDE / WTR 10 MEQ/100 ML PLCT IV SCH ×4 (09:40→12:47)
[2022-04-29] MEDS: MAGNESIUM SULFATE / D5W 1 GM/100 ML BAG IV SCH ×3 (09:40→13:13)
--- NOTE | 2022-04-29 09:51 | Gastrointestinal Consultation ---
Date of Consultation April 29, 2022 Assessment & Plan (1) Colitis: 81 year old female with history of HTN, dyslipidemia, heart failure, CAD, T2DM, CVA, hyperparathyroidism, GERD admitted w/ abdominal pain, nausea/vomiting/diarrhea onset 04/27. Imaging w/ nonspecific colitis, started on IV ABX. She has had persistent leukocytosis and intermittent fevers but her lactic acid is slowly decreasing. Give her persistent symptoms, previous imaging, will arrange for KUB today to assess for any persistent colonic dilation. If there is evidence of dilation, would consider empiric vancomycin as she has been unable to produce a stool sample 1. Acute on chronic anemia - No evidence of acute GI bleeding - Could be dilutional - Agree w/ IV PPI BID - Trend H&H - Monitor and document GI output - Given imaging with cirrhosis, can arrange OP EGD for screening once she is medically optimized 2. Leukocytosis, fevers, elevated lactic acid, nonspecific colitis - Stool studies - KUB this AM - Pending results, would consider empiric vancomycin if she is unable to produce a stool study - Can continue clear liquid diet for now 3. Cirrhosis on imaging - HCC screening and MELD labs every 6 months - OP EGD - No ETOH - Avoid NSAIDs - Low NA diet, less than 2G - Less than 2G Tylenol containing products 4. 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 We were consulted for evaluation of abdominal discomfort and elevated white blood cell count. Of note several days ago and thought to have inflammatory changes in the ileum and right colon. She notes that she is having copious amounts of diarrhea ongoing for several weeks prior to admission. She was started on Zosyn but continues to worsen over the last few days. Of note the patient has not had a bowel movement in approximately 48 hours. Physical examination no Distress noted abdomen soft but tender diffusely Impression: Patient presented with diarrhea and abnormal findings on CT. Given the clinical history of diarrhea I wonder if she may have presented with C. difficile infection is now possibly developing toxic megacolon or. I would recommend that the patient be started on vancomycin orally in addition to metronidazole intravenously. She should have a daily KUB performed and a stress had a stool for C. difficile should be obtained and collected. Recommendations daily kub avoid agents that may cause constipation Begin Vancomyin 250 mg qid + Metronidazole. History of Present Illness Reason for Consultation: acute ileocolitis, hgb dropping Requesting Physician: Yusef Attending Physician: Tanner Holbrook MD History of Present Illness 81 year old female with history of HTN, dyslipidemia, heart failure, CAD, T2DM, CVA, hyperparathyroidism, GERD admitted w/ abdominal pain, nausea/vomiting/diarrhea onset 04/27. GI was asked to evaluate 04/29 for ileocolitis, low HGB. She notes that she started with symptoms about 1 week ago. This was lower abd pain to start. Associated with change change in bowel habits, loose and frequent BMs. She does not recall any black or bloody stools. She grew concerned as she developed fevers, nausea, vomiting and sought ED care. In the ED, WBC 22 HGB 10, INR 1.2, lactic acid 5.1. She was made NPO, started on IV ABX. CT arrange which showed mild circumferential thickening within the ascending colon with mild pericolonic fat stranding, circumferential thickening of the distal terminal ileum near the ileocecal valve, cirrhotic liver, 2 irregular nodule within the left lower lobe, 7.2 cm right ovarian cyst. She was made NPO, started on IV abx and evaluated by the general surgery team w/ conservation measured initiated. Clinically, her nausea/vomiting resolved and federico ferreira has been tolerating clear liquid diet for about 2/3 days. She has not passed any stool or gas since Monday. She has had intermittent fevers, last documented yesterday AM. Stools studies: ordered, not obtained Lactic Acid 5.1 --> 2.1 Baseline HGB around 8/9. HGB on arrival 10.1. HGB today 7.7 BUN saul, 20 this AM CTAP 2021: 1. Mild circumferential thickening within the ascending colon with m ild pericolonic fat stranding. There is also mild circumferential thickening of the distal terminal ileum near the ileocecal valve. This is consistent with a nonspecific ileocolitis and favors an infectious or inflammatory process. A portal colopathy could also a similar appearance but is considered less likely.. Cirrhotic liver. There are 2 irregular nodule within the left lower lobe with the largest measuring 8 mm. Follow-up chest CT in 6 months is recommended to ensure stability/resolution.. Right-sided nephrolithiasis. No ureteral stones. No hydronephrosis. A 7.2 cm right ovarian cyst. This is considered to be pathologic in a postmenopausal female. Follow-up nonemergent gynecologic consultation recommended. Additional findings as described above. Colonoscopy: years ago, she is unsure where, when or what the results are Allergies Allergy/AdvReac Type Severity Reaction Status Date / Time No Known Allergies Allergy Verified 04/27/22 15:53 Home Medications Medication Instructions Recorded Confirmed Type alendronate 70 mg tablet 70 mg PO WK 01/22/22 04/27/22 History biotin 1 mg tablet 1 mg PO TID 01/22/22 04/27/22 History cinacalcet 30 mg tablet 30 mg PO DAILY 01/22/22 04/27/22 History glucosamine-chondroitin 250 mg-200 1 tab PO DAILY 01/22/22 04/27/22 History mg tablet (Osteo Bi-Flex) insulin human U-100 NPH-regulr See Rx Instructions .Route .COMPLEX 01/22/22 04/27/22 History 70-30 mix 100 unit/mL subcutaneous susp (Novolin 70/30 U-100 Insulin) losartan 25 mg tablet 25 mg PO DAILY 01/22/22 04/27/22 History metformin 1,000 mg tablet 1,000 mg PO BID 01/22/22 04/27/22 History vwugdsjdnvel-obicdwlq-pdrckp tablet 1 tab PO DAILY 01/22/22 04/27/22 History potassium gluconate 595 mg (99 mg) 595 mg PO DAILY 01/22/22 04/27/22 History tablet simvastatin 10 mg tablet 10 mg PO DAILY 01/22/22 04/27/22 History vitamin B complex 1 tab PO DAILY 01/22/22 04/27/22 History clopidogrel 75 mg tablet 75 mg PO QAM #60 tabs 01/29/22 04/27/22 Rx furosemide 40 mg tablet (Lasix) 40 mg PO DAILY #30 tabs 01/29/22 04/27/22 Rx magnesium oxide 400 mg (241.3 mg 400 mg PO DAILY #60 tabs 01/29/22 04/27/22 Rx magnesium) tablet metoprolol tartrate 25 mg tablet 12.5 mg PO BID #30 tabs 01/29/22 04/27/22 Rx pantoprazole 40 mg tablet,delayed 40 mg PO DAILY #30 tabs 01/29/22 04/27/22 Rx release amlodipine 5 mg tablet 5 mg PO QAM 04/27/22 04/27/22 History aspirin 81 mg tablet,delayed 81 mg PO DAILY 04/27/22 04/27/22 History release benzonatate 100 mg capsule 100 mg PO TID PRN Cough 04/27/22 04/27/22 History glipizide 10 mg tablet 10 mg PO BID 04/27/22 04/27/22 History Patient History Medical History Acute CVA (cerebrovascular accident) Acute heart failure with preserved ejection fraction (HFpEF) Acute respiratory failure with hypoxia Coronary atherosclerosis of [place] coronary vessel CVA (cerebral vascular accident) Essential (primary) hypertension Lumbago Other and unspecified hyperlipidemia Type 2 diabetes mellitus without complications Weakness of right upper extremity Surgical History History of cataract surgery S/P cholecystectomy Family History Mother , age 70 of a stroke and congestive heart failure Stroke CHF (congestive heart failure) Father , in his 70s of an [place] Myocardial infarction Social History Smoking Status: Former smoker packs per day: 4; Hx Alcohol Use: No Hx Substance Use: No Preferred Language: Mauritanian Communication Ability: Effective 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 Feels Safe at Home: Yes Assistive Devices: Cane and Walker Review of Systems Review of Systems: All systems reviewed & are unremarkable except as noted in HPI & below Physical Exam Constitutional: WD/WN, vitals as above Respiratory: + cough; no respiratory distress, no retractions and does not use accessory muscles Wearing O2 which is new Cardiovascular: Rate/Rhythm: + tachycardic Gastrointestinal (Abdomen): Inspection/Auscultation: + abdomen distended (mildly) and normal bowel sounds (present but decreased) Percussion/Palpation: + abdomen tender (w orse in lower abd) and abdomen soft; no guarding, abdomen not rigid, no abdominal mass and no ascites Skin: no rashes, warm and dry Results & Data ([facility]) Vital Signs (Past 12 Hours) Vital Signs Temp Pulse Pulse Resp BP Pulse Ox O2 Del Method 04/29/22 08:00 Nasal Cannula 04/29/22 07:25 93 H 04/29/22 07:00 36.7 C 91 H 95 H 105/57 L 8 L Oxymask 04/29/22 06:54 Oxymask 04/29/22 03:59 37.1 C 87 20 106/61 95 Oxymask 04/28/22 22:05 87 04/28/22 22:51 37.0 C 85 18 108/57 L 94 Oxymask O2 Flow Rate 04/29/22 08:00 6 04/29/22 07:25 04/29/22 07:00 04/29/22 06:54 8 04/29/22 03:59 6 04/28/22 22:05 04/28/22 22:51 10 Laboratory Results 04/29/22 04/29/22 04/29/22 Range/Units 07:35 07:05 07:05 WBC (4.8-10.8) K/ul RBC (3.93-5.22) M/uL Hgb (12.0-16.0) g/dl Hct (34.1-44.9) % MCV (80.0-100.0) fL MCH (25.0-34.0) pg MCHC (32.0-36.0) g/dL RDW Std Deviation (36.4-46.3) fL RDW Coeff of Vanita (11.5-14.5) % Plt Count (130-400) K/uL MPV (9.4-12.3) fL APTT (21.0-31.0) Seconds PTT Ratio Sodium (136-145) mmol/L Potassium (3.5-5.1) mmol/L Chloride (98-107) mmol/L Carbon Dioxide (21-32) mmol/L Anion Gap (3-11) BUN (6-23) mg/dl Creatinine (0.6-1.2) mg/dl Est Cr Clr Drug Dosing ml/min Est GFR ( Amer) ml/min Est GFR (Non-Af Amer) ml/min BUN/Creatinine Ratio (10-20) Glucose (70-99(Fasting)) mg/dl POC Glucose 134 H (70-99) mg/dl Calcium (8.5-10.1) mg/dl Phosphorus (2.5-4.9) mg/dl Magnesium (1.7-2.4) mg/dl Iron < 10 L (35-150) mcg/dl TIBC TNP Unsaturated IBC 308 (155-355) mcg/dl Transferrin % Sat TNP Ferritin 59.7 (8-388) ng/ml Vitamin B12 371 (180-914) pg/ml Folate > 22.30 (>5.38) ng/ml Procalcitonin (0-0.5) ng/ml 04/29/22 04/29/22 04/29/22 Range/Units 07:05 07:05 07:05 WBC 20.15 H (4.8-10.8) K/ul RBC 3.76 L (3.93-5.22) M/uL Hgb 7.7 L (12.0-16.0) g/dl Hct 25.5 L (34.1-44.9) % MCV 67.8 L (80.0-100.0) fL MCH 20.5 L (25.0-34.0) pg MCHC 30.2 L (32.0-36.0) g/dL RDW Std Deviation 54.7 H (36.4-46.3) fL RDW Coeff of Vanita 22.9 H (11.5-14.5) % Plt Count 230 (130-400) K/uL MPV 10.6 (9.4-12.3) fL APTT (21.0-31.0) Seconds PTT Ratio Sodium 134 L (136-145) mmol/L Potassium 3.4 L (3.5-5.1) mmol/L Chloride 102 (98-107) mmol/L Carbon Dioxide 26 (21-32) mmol/L Anion Gap 6 (3-11) BUN 20 (6-23) mg/dl Creatinine 0.89 (0.6-1.2) mg/dl Est Cr Clr Drug Dosing 50.3 ml/min Est GFR ( Amer) 70.4 ml/min Est GFR (Non-Af Amer) 60.8 ml/min BUN/Creatinine Ratio 22.5 H (10-20) Glucose 124 H (70-99(Fasting)) mg/dl POC Glucose (70-99) mg/dl Calcium 7.5 L (8.5-10.1) mg/dl Phosphorus 2.3 L (2.5-4.9) mg/dl Magnesium 1.4 L (1.7-2.4) mg/dl Iron (35-150) mcg/dl TIBC Unsaturated IBC (155-355) mcg/dl Transferrin % Sat Ferritin (8-388) ng/ml Vitamin B12 (180-914) pg/ml Folate (>5.38) ng/ml Procalcitonin 2.23 H (0-0.5) ng/ml 04/28/22 04/28/22 04/28/22 Range/Units 20:15 17:05 14:12 WBC (4.8-10.8) K/ul RBC (3.93-5.22) M/uL Hgb (12.0-16.0) g/dl Hct (34.1-44.9) % MCV (80.0-100.0) fL MCH (25.0-34.0) pg MCHC (32.0-36.0) g/dL RDW Std Deviation (36.4-46.3) fL RDW Coeff of Vanita (11.5-14.5) % Plt Count (130-400) K/uL MPV (9.4-12.3) fL APTT 57.0 H* (21.0-31.0) Seconds PTT Ratio 2.1 Sodium (136-145) mmol/L Potassium (3.5-5.1) mmol/L Chloride (98-107) mmol/L Carbon Dioxide (21-32) mmol/L Anion Gap (3-11) BUN (6-23) mg/dl Creatinine (0.6-1.2) mg/dl Est Cr Clr Drug Dosing ml/min Est GFR ( Amer) ml/min Est GFR (Non-Af Amer) ml/min BUN/Creatinine Ratio (10-20) Glucose (70-99(Fasting)) mg/dl POC Glucose 189 H 191 H (70-99) mg/dl Calcium (8.5-10.1) mg/dl Phosphorus (2.5-4.9) mg/dl Magnesium (1.7-2.4) mg/dl Iron (35-150) mcg/dl TIBC Unsaturated IBC (155-355) mcg/dl Transferrin % Sat Ferritin (8-388) ng/ml Vitamin B12 (180-914) pg/ml Folate (>5.38) ng/ml Procalcitonin (0-0.5) ng/ml 04/28/22 04/28/22 Range/Units 11:45 08:58 WBC (4.8-10.8) K/ul RBC (3.93-5.22) M/uL Hgb (12.0-16.0) g/dl Hct (34.1-44.9) % MCV (80.0-100.0) fL MCH (25.0-34.0) pg MCHC (32.0-36.0) g/dL RDW Std Deviation (36.4-46.3) fL RDW Coeff of Vanita (11.5-14.5) % Plt Count (130-400) K/uL MPV (9.4-12.3) fL APTT (21.0-31.0) Seconds PTT Ratio Sodium (136-145) mmol/L Potassium (3.5-5.1) mmol/L Chloride (98-107) mmol/L Carbon Dioxide (21-32) mmol/L Anion Gap (3-11) BUN (6-23) mg/dl Creatinine (0.6-1.2) mg/dl Est Cr Clr Drug Dosing ml/min Est GFR ( Amer) ml/min Est GFR (Non-Af Amer) ml/min BUN/Creatinine Ratio (10-20) Glucose (70-99(Fasting)) mg/dl POC Glucose 248 H (70-99) mg/dl Calcium (8.5-10.1) mg/dl Phosphorus (2.5-4.9) mg/dl Magnesium (1.7-2.4) mg/dl Iron (35-150) mcg/dl TIBC Unsaturated IBC (155-355) mcg/dl Transferrin % Sat Ferritin (8-388) ng/ml Vitamin B12 (180-914) pg/ml Folate (>5.38) ng/ml Procalcitonin 0.83 H (0-0.5) ng/ml
--- NOTE | 2022-04-29 10:34 | Cardiology Progress Note ---
Date of Service April 29, 2022 Assessment & Plan (1) Abnormal CT scan: (2) Abdominal pain: (3) Sepsis: (4) Ileocolitis: (5) Elevated troponin I level: (6) Abdominal pain, acute, right lower quadrant: (7) Abnormal EKG: (8) Vomiting: (9) Coronary atherosclerosis of [place] coronary vessel: (10) Mitral stenosis: (11) Chronic heart failure with preserved ejection fraction (HFpEF): Plan Given the clinical setting for which the patient presented the emergency department along with the CT findings of her abdomen I would recommend the patient be treated for her acute ileocolitis and concomitant sepsis This minimal troponin elevation does not represent acute coronary syndrome and the patient denies experiencing any cardiac symptoms EKG personally reviewed without significant ischemic changes, slight lateral T wave abnormalities likely due to lead placement for patient who is writhing in pain 2D echocardiogram unchanged No further cardiac testing or invention necessary at this time will sign off, please call with questions or concerns. Admission and Anticipated Discharge Date Admission Date: April 27, 2022 Subjective Pt seen and examined. Chart reviewed. Telemetry reviewed. Abdominal discomfort improving Review of Systems Review of Systems: All systems reviewed & are unremarkable except as noted in HPI & below Physical Exam Physical Exam: General: Awake, alert and oriented x 3. Mild distress due to abdominal pain HEENT: Normocephalic, atraumatic. Pupils equal, round and reactive to light and accommodation. Extraocular muscles are intact. Anicteric sclera. Moist mucous membranes. Neck: No JVD. No bruit. Cardiovascular: Regular. Positive S-4. Normal S-1 and S-2. No S-3. 3/6 mid to late systolic ejection murmur, greatest at the right sternal border, second intercostal space with radiation to the bilateral carotids. No rubs. Pulmonary: Clear to auscultation bilaterally. No rales, rhonchi, or wheezing. Abdomen: Deferred Extremities: No clubbing, cyanosis or edema. +2 pedal pulses bilaterally. Skin: Warm and dry. Results & Data ([facility]) Vital Signs (Past 12 Hours) Vital Signs Temp Pulse Pulse Resp BP Pulse Ox O2 Del Method 04/29/22 08:00 Nasal Cannula 04/29/22 07:25 93 H 04/29/22 07:00 36.7 C 91 H 95 H 105/57 L 8 L Oxymask 04/29/22 06:54 Oxymask 04/29/22 03:59 37.1 C 87 20 106/61 95 Oxymask 04/28/22 22:51 37.0 C 85 18 108/57 L 94 Oxymask O2 Flow Rate 04/29/22 08:00 6 04/29/22 07:25 04/29/22 07:00 04/29/22 06:54 8 04/29/22 03:59 6 04/28/22 22:51 10 (1) Sepsis Sepsis type: sepsis due to unspecified organism Sepsis acute organ dysfunction status: without acute organ dysfunction Qualified Code(s): A41.9 - Sepsis, unspecified organism (2) Vomiting Nausea presence: with nausea Vomiting type: unspecified Qualified Code(s): R11.2 - Nausea with vomiting, unspecified
[2022-04-29] MEDS: PANTOprazole 40 MG in SYRINGE 0 ML IV SCH ×2 (11:58→20:31)
--- NOTE | 2022-04-29 13:34 | XRay Report ---
KUB HISTORY: elevated WBC, elevated lactic acid, ?megacolon COMPARISON: Abdomen and pelvis CT 04/27/2022. FINDINGS: Mildly dilated gas-filled loops of large and small bowel seen throughout the abdomen. This has progressed in the interval. Small bowel loops measure up to 2.9 cm in diameter . The large bowel measures up to 6.5 cm. Dropped gallstones again noted within the right side the abdomen. No renal greer culi. No ureteral calculi. No pneumoperitoneum or pneumatosis. IMPRESSION: Mildly dilated gas-filled loops of large and small bowel seen throughout the abdomen. This is new fro m the prior CT examination and favors an ileus. A bowel obstruction is considered less likely but not entirely excluded. Follow-up recommended to ensure resolution. ACT 112: Negative or not required by law. Electronically signed by: Pee Parker M.D. 04/29/2022 1:32 PM
[2022-04-29 14:40] LABS: Hematocrit (blood only) 25.5 % (34.1-44.9); Hemoglobin 7.7 g/dl (12.0-16.0)
--- NOTE | 2022-04-29 16:01 | Hospitalist Progress Note ---
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 It first started with RLQ sharp and dull abdominal pain and then spread across lower abdomen. She is being managed for the following: #. Severe sepsis POA: WBC, HR and RR elevated at POA, LA 4.0 at admission. #. Ileocolitis #. Lower abdominal pain #. Concern for megacolon/??probable C.diff prior to arrival Admitting labs with elevated WBC at 22.11K, lactic acid elevated at 4.0. Admitting UA not consistent with UTI Admitting CTAP: Suggestive of ileocolitis. Revealed cirrhotic liver. Revealed other abnormal findings [see below]. Admitting CXR: Cardiomegaly with mild central pulmonary vascular congestion, similar to prior study. 04/29 KUB XR: Patient received 2.5 L of IV fluid resuscitation on admission, lactate downtrended. Await admitting blood culture. Patient has not moved bowel while in hospital, and hence stool culture and C. difficile test has not been collected. Patient received Zosyn, continue with Zosyn 04/27 --> cefepime 04/29. Maintain bowel rest. Started PO vanc and iv metron 04/29. GI evaluated, concern of megacolon likely secondary to probable CT prior to arrival. Recommends p.o. vancomycin and IV metronidazole, avoid agents causing constipation. Daily KUB. General surgery evaluated, conservative management for now. WBC minimally downtrending, temperature getting better, continue to monitor closely, labs in AM. #. Abnormal EKG #. Elevated troponin level at presentation, likely demand ischemia Admitting troponin level 395, minimally up trended, admitting EKG with sinus tachycardia and ST depression in lateral leads. 04/27 echo: EF greater than 70%, hyperdynamic LV systolic function, grade 1 diastolic dysfunction. No segmental left ventricular wall motion abnormalities. Severe mitral annular calcification noted. Likely demand ischemia secondary to acute sepsis. Cardiology evaluated, appreciate recommendation. Hypoxia Ac on Chr HFpEF/ Pulmonary edema, likely iatrogenic from fluid resuscitation 01/25/2022 echo: EF: 60-65%, severe mitral annular calcification, no evidence of interatrial shunt Patient received around 2.5 L of IV fluid resuscitation by night of 04/27 Patient was reported to be hypoxic with use of morphine and was worsened with use of fluid resuscitation Repeat CXR on 04/28 glove stitcher with worsening pulmonary edema. 04/27 ECHO: see above Lasix prn w/ clinical assessment. O2 at 6L currently. Echo reviewed. will hold other BP meds for time being in favor of lasix prn #. Acute on chronic anemia: Baseline hemoglobin around 9. Hemoglobin dropped to 7.7 on 04/29, repeat hemoglobin is stable at 7.7. MCV 67.8. 04/29 iron profile with iron less than 10 and ferritin at 59.7, vitamin B12 low normal level. We will transfuse iron upon discussion with patient. Continue to monitor hemoglobin. FOBT has been sent. #. Leg edema: some RLE edema > LLE w/ some warmth at presentation, BLE doppler negative for DVT. #. Ovarian mass, right: #. Abnormal CT scan: Admitting CT ABD/PELVIS: There are 2 irregular nodule within the left lower lobe with the largest measuring 8 mm. Follow-up chest CT in 6 months is recommended to ensure stability/resolution. 7.2 cm right ovarian cyst. This is considered to be pathologic in a postmenopausal female. Follow-up nonemergent gynecologic consultation recommended. Will need outpatient follow up with gynecology Will need outpatient repeat CT chest in 6 months #. Other chronic medical conditions: CVA, DM type II, HTN, microcytic anemia [baseline 9], hyperparathyroidism {patient not interested in surgery, followed with [facility] endocrinology, last seen in 2017, continue Cinacalcet], GERD ---> continue home meds as able #. DVT prophylaxis: Heparin subcu #. DNR/DNI 04/28: Patient's daughter Madelyn given a phone call and updated about the current status of the patient, she voiced understanding and was agreeable to the plan of care. Admission and Anticipated Discharge Date Admission Date: April 27, 2022 Subjective Patient seen and examined at bedside as a follow-up of severe sepsis POA, ileocolitis, abdominal pain, demand ischemia. Patient was lying in bed, on 6 L oxygen via nasal cannula, overnight patient was hypoxic and needed up to 10 L oxygen. Patient patient reports abdominal pain getting marginally better, has been able to drink liquid diet/water, has not moved bowel or gas, temperature is getting better, is on liquid diet, is drinking water good per RN, blood pressure is on the softer side, will use Lasix as needed. Physical Exam Physical Exam: GENERAL: Alert and oriented x3. NAD, on 6L O2 via NC. HEENT: No pallor, no icterus. Pupils equal, round and reactive to light. Oral mucosa moist. NECK: No JVD, no neck masses. HEART: S1 and S2 heard. tachycardia. No murmur, no gallop. RESPIRATORY SYSTEM: Normal AP diameter. No accessory muscle use. No wheezing, b/b crackles. ABDOMEN: Soft, diffuse tender--mildly improving, decreased bowel sounds. CENTRAL NERVOUS SYSTEM: No facial droop. Speech is clear. Obeys simple commands. Moves extremities. EXTREMITIES: trace ble edema, no erythema seen. Results & Data Results & Data ([facility]) Vital Signs (Past 12 Hours) Vital Signs Temp Pulse Pulse Resp BP Pulse Ox O2 Del Method 04/29/22 15:00 36.8 C 71 18 108/62 93 Nasal Cannula 04/29/22 14:56 75 04/29/22 11:04 37.1 C 80 18 98/59 L 94 Nasal Cannula 04/29/22 08:00 Nasal Cannula 04/29/22 07:25 93 H 04/29/22 07:00 36.7 C 91 H 95 H 105/57 L 8 L Oxymask 04/29/22 06:54 Oxymask 04/29/22 03:59 37.1 C 87 20 106/61 95 Oxymask O2 Flow Rate 04/29/22 15:00 6 04/29/22 14:56 04/29/22 11:04 7 04/29/22 08:00 6 04/29/22 07:25 04/29/22 07:00 04/29/22 06:54 8 04/29/22 03:59 6
[2022-04-29] MEDS ORDERED: SODIUM CHLORIDE 0.9% 250 ML IV PRN (16:38)
[2022-04-29] MEDS ORDERED: ACETAMINOPHEN 325 MG TAB PO ONE (16:38)
[2022-04-29] MEDS: metroNIDAZOLE 500 MG/100 ML BAG IV SCH ×2 (16:56→23:00)
[2022-04-29] MEDS: CEFEPIME 2,000 MG in SYRINGE 0 ML IV SCH (16:56)
[2022-04-29] MEDS: CYANOCOBALAMIN (B-12) 100 MCG TABLET PO SCH (16:57)
[2022-04-29] MEDS: RASPBERRY SYRUP 5 ML UDP PO SCH ×2 (17:15→22:54)
[2022-04-29] MEDS: VANCOMYCIN HCL 250 MG/5 ML SOLN PO SCH ×2 (17:15→22:54)
[2022-04-29] MEDS ORDERED: ALBUMIN 25% 100 mL 25 GM/100 ML VIAL IV ONE (20:17)
[2022-04-29] MEDS ORDERED: PANTOprazole 40 MG in SYRINGE 0 ML IV SCH (21:00)
[2022-04-30 00:44] LABS: Hematocrit (blood only) 27.5 % (34.1-44.9); Hemoglobin 8.5 g/dl (12.0-16.0)
[2022-04-30] MEDS: KETOROLAC TROMETHAMINE 15 MG/ML VIAL IV PRN (01:09)
[2022-04-30] MEDS: ACETAMINOPHEN 1,000 MG/100 ML VIAL IV SCH ×3 (03:59→17:45)
[2022-04-30] MEDS: CEFEPIME 2,000 MG in SYRINGE 0 ML IV SCH ×2 (04:01→16:53)
[2022-04-30] MEDS: VANCOMYCIN HCL 250 MG/5 ML SOLN PO SCH ×4 (05:34→23:50)
[2022-04-30] MEDS: RASPBERRY SYRUP 5 ML UDP PO SCH ×4 (05:34→23:50)
[2022-04-30 06:46] LABS: Hemoglobin 8.7 g/dl (12.0-16.0); Mean Corpuscular Hemoglobin 21.5 pg (25.0-34.0); Mean Corpuscular Hgb Conc 31.1 g/dL (32.0-36.0); Mean Corpuscular Volume 69.3 fL (80.0-100.0); Mean Platelet Volume 10.6 fL (9.4-12.3); Nucleated RBC # (auto) 0.03 K/uL (0-0); Nucleated RBC % (auto) 0.2 %; Platelet Count 213 K/uL (130-400); RDW Coefficient of Variation 23.3 % (11.5-14.5); RDW Standard Deviation 57.1 fL (36.4-46.3); Red Blood Count 4.04 M/uL (3.93-5.22); White Blood Count 17.64 K/ul (4.8-10.8)
[2022-04-30 06:52] LABS: BUN Creatinine Ratio 24.8 (10-20); Calcium 7.3 mg/dl (8.5-10.1); Creatinine Clr Calc Pharmacy 39.9 ml/min; Est GFR (African American) 52.8 ml/min; Est GFR (Non-African American) 45.5 ml/min; Magnesium 1.9 mg/dl (1.7-2.4); Phosphorus 2.3 mg/dl (2.5-4.9); Potassium 3.5 mmol/L (3.5-5.1)
--- NOTE | 2022-04-30 07:10 | XRay Report ---
KUB CLINICAL HISTORY: Colonic dilatation. FINDINGS: 2 AP, portable, supine abdominal radiographs are compared to study dated 04/29/2022 and cor related with abdominal CT dated 04/27/2022. Cholecystectomy clips are seen in the right upper quadran t. Large drop to gallstones are again noted. There are mildly distended and gas-filled loops of small bowel and colon, modestly improved from yesterday. The colon measures up to 5.5 cm in diameter. This measured 6.5 cm at the same site on yesterday's examination. No high-grade obstruction is seen. No e vidence of intraperitoneal free air is seen in these supine images. Skeletal structures are osteopeni c and appear intact. There is moderate lumbosacral spondylosis. Scarring/atelectasis is suggested the lung bases. IMPRESSION: 1. Mild gaseous distention of the small bowel and colon has modestly improved from yesterday. The ector earance favors ileus and clinical correlation will be required. 2. Dropped gallstones are again noted. Electronically signed by: Kahlil Mojica M.D. 04/30/2022 7:08 AM
[2022-04-30] MEDS: metroNIDAZOLE 500 MG/100 ML BAG IV SCH ×2 (07:47→16:42)
[2022-04-30] MEDS: PANTOprazole 40 MG in SYRINGE 0 ML IV SCH ×2 (07:47→20:15)
[2022-04-30] MEDS: CYANOCOBALAMIN (B-12) 100 MCG TABLET PO SCH (07:48)
[2022-04-30] MEDS: SIMVASTATIN 10 MG TAB PO SCH (07:48)
[2022-04-30] MEDS: MAGNESIUM OXIDE 400 MG TAB PO SCH (07:48)
[2022-04-30] MEDS: ASPIRIN 81 MG ECTAB PO SCH (07:49)
[2022-04-30] MEDS: THIAMINE HCL 100 MG TAB PO SCH (07:50)
[2022-04-30] MEDS: MULTIVITAMIN TAB PO SCH (07:50)
[2022-04-30] MEDS: CINACALCET HCL 30 MG TAB PO SCH (07:50)
[2022-04-30] MEDS: INSULIN ASPART PER UNIT SC SCH ×4 (08:19→20:31)
[2022-04-30] MEDS: LANTUS PER UNIT CHARGE SQ SCH ×2 (08:19→20:31)
[2022-04-30] MEDS: CLOPIDOGREL BISULFATE 75 MG TAB PO SCH (08:20)
[2022-04-30] MEDS: METOPROLOL TARTRATE 25 MG TAB PO SCH ×2 (08:38→20:16)
[2022-04-30] MEDS: guaiFENesin 600 MG TABCR PO SCH (08:38)
--- NOTE | 2022-04-30 09:46 | Gastroenterology Progress Note ---
Date of Service April 30, 2022 Assessment & Plan (1) Abdominal pain: Plan: On paper she is improving. When questioned she does say she is better than yesterday. Will continue to follow Admission and Anticipated Discharge Date Admission Date: April 27, 2022 Subjective Feeling a little better than yesterday. KUB shows some improvement in gas, most consistent with ileus. WBC is down compared to yesterday Physical Exam Constitutional: WD/WN, vitals as above Results & Data ([facility]) Vital Signs (Past 12 Hours) Vital Signs Temp Pulse Pulse Resp BP BP Pulse Ox 04/30/22 07:25 37.5 C 89 20 108/55 L 92 04/30/22 07:02 87 04/30/22 04:00 37.0 C 82 18 110/62 91 04/29/22 23:54 36.4 C L 79 18 102/59 L 91 04/29/22 21:50 36.8 C 75 16 100/65 93 04/29/22 21:45 36.8 C 75 16 100/65 93 O2 Del Method O2 Flow Rate 04/30/22 07:25 High Flow Nasal Cannula 8 04/30/22 07:02 04/30/22 04:00 Nasal Cannula 6 04/29/22 23:54 Nasal Cannula 6 04/29/22 21:50 7 04/29/22 21:45 7 Laboratory Results 04/30/22 04/30/22 04/30/22 Range/Units 07:39 06:12 06:12 WBC 17.64 H (4.8-10.8) K/ul RBC 4.04 (3.93-5.22) M/uL Hgb 8.7 L (12.0-16.0) g/dl Hct 28.0 L (34.1-44.9) % MCV 69.3 L (80.0-100.0) fL MCH 21.5 L (25.0-34.0) pg MCHC 31.1 L (32.0-36.0) g/dL RDW Std Deviation 57.1 H (36.4-46.3) fL RDW Coeff of Vanita 23.3 H (11.5-14.5) % Plt Count 213 (130-400) K/uL MPV 10.6 (9.4-12.3) fL Absolute Nucleated RBC 0.03 H (0-0) K/uL Nucleated RBC % (auto) 0.2 % Sodium 132 L (136-145) mmol/L Potassium 3.5 (3.5-5.1) mmol/L Chloride 101 (98-107) mmol/L Carbon Dioxide 24 (21-32) mmol/L Anion Gap 7 (3-11) BUN 28 H (6-23) mg/dl Creatinine 1.13 (0.6-1.2) mg/dl Est Cr Clr Drug Dosing 39.9 ml/min Est GFR ( Amer) 52.8 ml/min Est GFR (Non-Af Amer) 45.5 ml/min BUN/Creatinine Ratio 24.8 H (10-20) Glucose 100 H (70-99(Fasting)) mg/dl POC Glucose 121 H (70-99) mg/dl Lactate (0.4-2.0) mmol/L Calcium 7.3 L (8.5-10.1) mg/dl Phosphorus 2.3 L (2.5-4.9) mg/dl Magnesium 1.9 (1.7-2.4) mg/dl Procalcitonin (0-0.5) ng/ml Blood Type Antibody Screen Crossmatch 04/30/22 04/30/22 04/30/22 Range/Units 06:12 00:36 00:36 WBC (4.8-10.8) K/ul RBC (3.93-5.22) M/uL Hgb 8.5 L (12.0-16.0) g/dl Hct 27.5 L (34.1-44.9) % MCV (80.0-100.0) fL MCH (25.0-34.0) pg MCHC (32.0-36.0) g/dL RDW Std Deviation (36.4-46.3) fL RDW Coeff of Vanita (11.5-14.5) % Plt Count (130-400) K/uL MPV (9.4-12.3) fL Absolute Nucleated RBC (0-0) K/uL Nucleated RBC % (auto) % Sodium (136-145) mmol/L Potassium (3.5-5.1) mmol/L Chloride (98-107) mmol/L Carbon Dioxide (21-32) mmol/L Anion Gap (3-11) BUN (6-23) mg/dl Creatinine (0.6-1.2) mg/dl Est Cr Clr Drug Dosing ml/min Est GFR ( Amer) ml/min Est GFR (Non-Af Amer) ml/min BUN/Creatinine Ratio (10-20) Glucose (70-99(Fasting)) mg/dl POC Glucose (70-99) mg/dl Lactate 1.5 (0.4-2.0) mmol/L Calcium (8.5-10.1) mg/dl Phosphorus (2.5-4.9) mg/dl Magnesium (1.7-2.4) mg/dl Procalcitonin 2.72 H (0-0.5) ng/ml Blood Type Antibody Screen Crossmatch 04/29/22 04/29/22 04/29/22 Range/Units 20:42 19:30 17:09 WBC (4.8-10.8) K/ul RBC (3.93-5.22) M/uL Hgb (12.0-16.0) g/dl Hct (34.1-44.9) % MCV (80.0-100.0) fL MCH (25.0-34.0) pg MCHC (32.0-36.0) g/dL RDW Std Deviation (36.4-46.3) fL RDW Coeff of Vanita (11.5-14.5) % Plt Count (130-400) K/uL MPV (9.4-12.3) fL Absolute Nucleated RBC (0-0) K/uL Nucleated RBC % (auto) % Sodium (136-145) mmol/L Potassium (3.5-5.1) mmol/L Chloride (98-107) mmol/L Carbon Dioxide (21-32) mmol/L Anion Gap (3-11) BUN (6-23) mg/dl Creatinine (0.6-1.2) mg/dl Est Cr Clr Drug Dosing ml/min Est GFR ( Amer) ml/min Est GFR (Non-Af Amer) ml/min BUN/Creatinine Ratio (10-20) Glucose (70-99(Fasting)) mg/dl POC Glucose 230 H (70-99) mg/dl Lactate 2.5 H* (0.4-2.0) mmol/L Calcium (8.5-10.1) mg/dl Phosphorus (2.5-4.9) mg/dl Magnesium (1.7-2.4) mg/dl Procalcitonin (0-0.5) ng/ml Blood Type A Positive Antibody Screen NEGATIVE Crossmatch See Detail 04/29/22 04/29/22 04/29/22 Range/Units 17:09 16:09 14:26 WBC (4.8-10.8) K/ul RBC (3.93-5.22) M/uL Hgb 7.7 L (12.0-16.0) g/dl Hct 25.5 L (34.1-44.9) % MCV (80.0-100.0) fL MCH (25.0-34.0) pg MCHC (32.0-36.0) g/dL RDW Std Deviation (36.4-46.3) fL RDW Coeff of Vanita (11.5-14.5) % Plt Count (130-400) K/uL MPV (9.4-12.3) fL Absolute Nucleated RBC (0-0) K/uL Nucleated RBC % (auto) % Sodium (136-145) mmol/L Potassium (3.5-5.1) mmol/L Chloride (98-107) mmol/L Carbon Dioxide (21-32) mmol/L Anion Gap (3-11) BUN (6-23) mg/dl Creatinine (0.6-1.2) mg/dl Est Cr Clr Drug Dosing ml/min Est GFR ( Amer) ml/min Est GFR (Non-Af Amer) ml/min BUN/Creatinine Ratio (10-20) Glucose (70-99(Fasting)) mg/dl POC Glucose 276 H (70-99) mg/dl Lactate 2.1 H* (0.4-2.0) mmol/L Calcium (8.5-10.1) mg/dl Phosphorus (2.5-4.9) mg/dl Magnesium (1.7-2.4) mg/dl Procalcitonin (0-0.5) ng/ml Blood Type Antibody Screen Crossmatch 04/29/22 Range/Units 11:39 WBC (4.8-10.8) K/ul RBC (3.93-5.22) M/uL Hgb (12.0-16.0) g/dl Hct (34.1-44.9) % MCV (80.0-100.0) fL MCH (25.0-34.0) pg MCHC (32.0-36.0) g/dL RDW Std Deviation (36.4-46.3) fL RDW Coeff of Vanita (11.5-14.5) % Plt Count (130-400) K/uL MPV (9.4-12.3) fL Absolute Nucleated RBC (0-0) K/uL Nucleated RBC % (auto) % Sodium (136-145) mmol/L Potassium (3.5-5.1) mmol/L Chloride (98-107) mmol/L Carbon Dioxide (21-32) mmol/L Anion Gap (3-11) BUN (6-23) mg/dl Creatinine (0.6-1.2) mg/dl Est Cr Clr Drug Dosing ml/min Est GFR ( Amer) ml/min Est GFR (Non-Af Amer) ml/min BUN/Creatinine Ratio (10-20) Glucose (70-99(Fasting)) mg/dl POC Glucose 272 H (70-99) mg/dl Lactate (0.4-2.0) mmol/L Calcium (8.5-10.1) mg/dl Phosphorus (2.5-4.9) mg/dl Magnesium (1.7-2.4) mg/dl Procalcitonin (0-0.5) ng/ml Blood Type Antibody Screen Crossmatch Diagnostic Findings 04/30/22 04/30/22 04/30/22 Range/Units 07:39 06:12 06:12 WBC 17.64 H (4.8-10.8) K/ul RBC 4.04 (3.93-5.22) M/uL Hgb 8.7 L (12.0-16.0) g/dl Hct 28.0 L (34.1-44.9) % MCV 69.3 L (80.0-100.0) fL MCH 21.5 L (25.0-34.0) pg MCHC 31.1 L (32.0-36.0) g/dL RDW Std Deviation 57.1 H (36.4-46.3) fL RDW Coeff of Vanita 23.3 H (11.5-14.5) % Plt Count 213 (130-400) K/uL MPV 10.6 (9.4-12.3) fL Absolute Nucleated RBC 0.03 H (0-0) K/uL Nucleated RBC % (auto) 0.2 % Sodium 132 L (136-145) mmol/L Potassium 3.5 (3.5-5.1) mmol/L Chloride 101 (98-107) mmol/L Carbon Dioxide 24 (21-32) mmol/L Anion Gap 7 (3-11) BUN 28 H (6-23) mg/dl Creatinine 1.13 (0.6-1.2) mg/dl Est Cr Clr Drug Dosing 39.9 ml/min Est GFR ( Amer) 52.8 ml/min Est GFR (Non-Af Amer) 45.5 ml/min BUN/Creatinine Ratio 24.8 H (10-20) Glucose 100 H (70-99(Fasting)) mg/dl POC Glucose 121 H (70-99) mg/dl Lactate (0.4-2.0) mmol/L Calcium 7.3 L (8.5-10.1) mg/dl Phosphorus 2.3 L (2.5-4.9) mg/dl Magnesium 1.9 (1.7-2.4) mg/dl Procalcitonin (0-0.5) ng/ml Blood Type Antibody Screen Crossmatch 04/30/22 04/30/22 04/30/22 Range/Units 06:12 00:36 00:36 WBC (4.8-10.8) K/ul RBC (3.93-5.22) M/uL Hgb 8.5 L (12.0-16.0) g/dl Hct 27.5 L (34.1-44.9) % MCV (80.0-100.0) fL MCH (25.0-34.0) pg MCHC (32.0-36.0) g/dL RDW Std Deviation (36.4-46.3) fL RDW Coeff of Vanita (11.5-14.5) % Plt Count (130-400) K/uL MPV (9.4-12.3) fL Absolute Nucleated RBC (0-0) K/uL Nucleated RBC % (auto) % Sodium (136-145) mmol/L Potassium (3.5-5.1) mmol/L Chloride (98-107) mmol/L Carbon Dioxide (21-32) mmol/L Anion Gap (3-11) BUN (6-23) mg/dl Creatinine (0.6-1.2) mg/dl Est Cr Clr Drug Dosing ml/min Est GFR ( Amer) ml/min Est GFR (Non-Af Amer) ml/min BUN/Creatinine Ratio (10-20) Glucose (70-99(Fasting)) mg/dl POC Glucose (70-99) mg/dl Lactate 1.5 (0.4-2.0) mmol/L Calcium (8.5-10.1) mg/dl Phosphorus (2.5-4.9) mg/dl Magnesium (1.7-2.4) mg/dl Procalcitonin 2.72 H (0-0.5) ng/ml Blood Type Antibody Screen Crossmatch 04/29/22 04/29/22 04/29/22 Range/Units 20:42 19:30 17:09 WBC (4.8-10.8) K/ul RBC (3.93-5.22) M/uL Hgb (12.0-16.0) g/dl Hct (34.1-44.9) % MCV (80.0-100.0) fL MCH (25.0-34.0) pg MCHC (32.0-36.0) g/dL RDW Std Deviation (36.4-46.3) fL RDW Coeff of Vanita (11.5-14.5) % Plt Count (130-400) K/uL MPV (9.4-12.3) fL Absolute Nucleated RBC (0-0) K/uL Nucleated RBC % (auto) % Sodium (136-145) mmol/L Potassium (3.5-5.1) mmol/L Chloride (98-107) mmol/L Carbon Dioxide (21-32) mmol/L Anion Gap (3-11) BUN (6-23) mg/dl Creatinine (0.6-1.2) mg/dl Est Cr Clr Drug Dosing ml/min Est GFR ( Amer) ml/min Est GFR (Non-Af Amer) ml/min BUN/Creatinine Ratio (10-20) Glucose (70-99(Fasting)) mg/dl POC Glucose 230 H (70-99) mg/dl Lactate 2.5 H* (0.4-2.0) mmol/L Calcium (8.5-10.1) mg/dl Phosphorus (2.5-4.9) mg/dl Magnesium (1.7-2.4) mg/dl Procalcitonin (0-0.5) ng/ml Blood Type A Positive Antibody Screen NEGATIVE Crossmatch See Detail 04/29/22 04/29/22 04/29/22 Range/Units 17:09 16:09 14:26 WBC (4.8-10.8) K/ul RBC (3.93-5.22) M/uL Hgb 7.7 L (12.0-16.0) g/dl Hct 25.5 L (34.1-44.9) % MCV (80.0-100.0) fL MCH (25.0-34.0) pg MCHC (32.0-36.0) g/dL RDW Std Deviation (36.4-46.3) fL RDW Coeff of Vanita (11.5-14.5) % Plt Count (130-400) K/uL MPV (9.4-12.3) fL Absolute Nucleated RBC (0-0) K/uL Nucleated RBC % (auto) % Sodium (136-145) mmol/L Potassium (3.5-5.1) mmol/L Chloride (98-107) mmol/L Carbon Dioxide (21-32) mmol/L Anion Gap (3-11) BUN (6-23) mg/dl Creatinine (0.6-1.2) mg/dl Est Cr Clr Drug Dosing ml/min Est GFR ( Amer) ml/min Est GFR (Non-Af Amer) ml/min BUN/Creatinine Ratio (10-20) Glucose (70-99(Fasting)) mg/dl POC Glucose 276 H (70-99) mg/dl Lactate 2.1 H* (0.4-2.0) mmol/L Calcium (8.5-10.1) mg/dl Phosphorus (2.5-4.9) mg/dl Magnesium (1.7-2.4) mg/dl Procalcitonin (0-0.5) ng/ml Blood Type Antibody Screen Crossmatch 04/29/22 Range/Units 11:39 WBC (4.8-10.8) K/ul RBC (3.93-5.22) M/uL Hgb (12.0-16.0) g/dl Hct (34.1-44.9) % MCV (80.0-100.0) fL MCH (25.0-34.0) pg MCHC (32.0-36.0) g/dL RDW Std Deviation (36.4-46.3) fL RDW Coeff of Vanita (11.5-14.5) % Plt Count (130-400) K/uL MPV (9.4-12.3) fL Absolute Nucleated RBC (0-0) K/uL Nucleated RBC % (auto) % Sodium (136-145) mmol/L Potassium (3.5-5.1) mmol/L Chloride (98-107) mmol/L Carbon Dioxide (21-32) mmol/L Anion Gap (3-11) BUN (6-23) mg/dl Creatinine (0.6-1.2) mg/dl Est Cr Clr Drug Dosing ml/min Est GFR ( Amer) ml/min Est GFR (Non-Af Amer) ml/min BUN/Creatinine Ratio (10-20) Glucose (70-99(Fasting)) mg/dl POC Glucose 272 H (70-99) mg/dl Lactate (0.4-2.0) mmol/L Calcium (8.5-10.1) mg/dl Phosphorus (2.5-4.9) mg/dl Magnesium (1.7-2.4) mg/dl Procalcitonin (0-0.5) ng/ml Blood Type Antibody Screen Crossmatch Abdomen/Pelvis CT 04/27/22 13:[address] WITH IV CONTRAST CT DOSE: 908.81 mGycm HISTORY: Right lower quadrant pain. TECHNIQUE: Multiaxial CT images of the abdomen and pelvis were performed following the use of intravenous contrast. A dose lowering technique was utilized adhering to the principles of ALARA. COMPARISON STUDY: None. FINDINGS: Interstitial thickening at the lung bases is noted. This may be chronic. There are mild dependent changes at the lung bases. Partially visualized 6 mm nodule within the left lower lobe there is an additional 8 mm irregular nodule within the left lower lobe on image 29. No pneumoperitoneum. No pneumatosis. No fractures within the visualized osseous structures. The heart is borderline enlarged. Small right upper quadrant abdominal wall defect/hernia measuring 2 cm. This favors a prior laparoscopic port site given the prior cholecystectomy. There are are scattered dropped gallstones within the right side of the abdomen and within the anterior abdominal wall measuring up to 2.3 cm. Nodular contour to the liver consistent with cirrhosis. Moderate bile duct dilatation likely due to the patient's postcholecystectomy state. The spleen, pancreas, and right adrenal gland are unremarkable. There is mild thickening of the left adrenal gland. There is a 4 mm stone within the right kidney. No left renal calculi. No ureteral calculi. No hydronephrosis. There are few scattered hypodensities within the kidneys. The majority these are technically too small to characterize but statistically represent cysts. No retroperitoneal lymp hadenopathy. 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 No pelvic lymphadenopathy or pelvic free fluid. The bladder is unremarkable. Prior hysterectomy. There is a 7.2 cm right ovarian cyst. This could be pathologic in a postmenopausal female. Colonic diverticulosis. No evidence for acute diverticulitis. Mild circumferential thickening within the ascending colon with mild pericolonic fat stranding. There is also mild circumferential thickening of the distal terminal ileum near the ileocecal valve. This is consistent with a nonspecific ileocolitis and favors an infectious or inflammatory process. A portal colopathy could also a similar appearance but is considered less likely. No evidence for bowel obstruction. IMPRESSION: 1. Mild circumferential thickening within the ascending colon with mild pericolonic fat stranding. There is also mild circumferential thickening of the distal terminal ileum near the ileocecal valve. This is consistent with a nonspecific ileocolitis and favors an infectious or inflammatory process. A portal colopathy could also a similar appearance but is considered less likely. 2. Cirrhotic liver. 3. There are 2 irregular nodule within the left lower lobe with the largest measuring 8 mm. Follow-up chest CT in 6 months is recommended to ensure stability/resolution. 4. Right-sided nephrolithiasis. No ureteral stones. No hydronephrosis. 5. A 7.2 cm right ovarian cyst. This is considered to be pathologic in a postmenopausal female. Follow-up nonemergent gynecologic consultation recommended. 6. Additional findings as described above. ACT 112: Negative or not required by law. Electronically signed by: Pee Parker M.D. 04/27/2022 3:01 PM Venous Doppler Study 04/27/22 16:59 BILATERAL LOWER EXTREMITY VENOUS DOPPLER HISTORY: Lower extremity pain. COMPARISON STUDY: None. FINDINGS: There is normal compressibility, flow, and augmentation within the bilateral lower extremity deep venous systems. IMPRESSION: No DVT within the right or left lower extremity. ACT 112: Negative or not required by law. Electronically signed by: Pee Parker M.D. 04/27/2022 5:59 PM Chest X-Ray 04/29/22 07:45 XR chest 1V portable HISTORY: 81 years-old Female f/u pul edema acute shortness of breath COMPARISON: Chest radiograph 04/28/2022 TECHNIQUE: AP view of the chest FINDINGS: Cardiac silhouette is enlarged. Atherosclerosis of the aorta. Pulmonary vascular congestion with interstitial coarsening again noted. No pneumothorax. Trace pleural effusions. Mild right hemidiaphragmatic elevation. Degenerative changes of the shoulders and spine. IMPRESSION: Cardiomegaly with stable to slightly improved pulmonary edema and trace pleural effusions. ACT 112: Negative or not required by law. The above report was generated using voice recognition software. It may contain grammatical, syntax or spelling errors. Electronically signed by: Abhay Smart M.D. 04/29/2022 8:34 AM KUB X-Ray 04/30/22 07:00 KUB CLINICAL HISTORY: Colonic dilatation. FINDINGS: 2 AP, portable, supine abdominal radiographs are compared to study dated 04/29/2022 and correlated with abdominal CT dated 04/27/2022. Cholecystectomy clips are seen in the right upper quadrant. Large drop to gallstones are again noted. There are mildly distended and gas-filled loops of small bowel and colon, modestly improved from yesterday. The colon measures up to 5.5 cm in diameter. This measured 6.5 cm at the same site on yesterday's examination. No high-grade obstruction is seen. No evidence of intraperitoneal free air is seen in these supine images. Skeletal structures are osteopenic and appear intact. There is moderate lumbosacral spondylosis. Scarring/atelectasis is suggested the lung bases. IMPRESSION: 1. Mild gaseous distention of the small bowel and colon has modestly improved from yesterday. The appearance favors ileus and clinical correlation will be required. 2. Dropped gallstones are again noted. Electronically signed by: Kahlil Mojica M.D. 04/30/2022 7:08 AM
[2022-04-30] MEDS ORDERED: FUROSEMIDE 40 MG/4 ML VIAL IV STA (10:11)
--- NOTE | 2022-04-30 10:30 | Surgery Progress Note ---
Date of Service April 30, 2022 Assessment & Plan (1) Ileocolitis: Plan: KUB unchanged WBC down slightly continue Abx no indication for surgical intervention at this time will follow Admission and Anticipated Discharge Date Admission Date: April 27, 2022 Supervising Physician Co-Signing Physician Notes I personally saw and evaluated the patient with Johann Grimm PA-C and agree with the assessment plan. 81-year-old female with right-sided colitis and mild cecal distention KUB images and results personally viewed by me, stable to mild improvement of her cecal distention She states her pain is improved compared to yesterday White blood cell count decreased to 17 We will continue conservative management with IV antibiotics, PO Vanco added by GI for concern for C. difficile Continue to follow while she is here in the hospital Subjective feels a little better, still having RLQ pain Physical Exam Gastrointestinal (Abdomen): Inspection/Auscultation: abdomen not distended Percussion/Palpation: + abdomen tender and abdomen soft; no guarding Results & Data ([facility]) Vital Signs (Past 12 Hours) Vital Signs Temp Pulse Pulse Resp BP Pulse Ox O2 Del Method 04/30/22 10:00 93 Oxymask 04/30/22 07:25 37.5 C 89 20 108/55 L 92 High Flow Nasal Cannula 04/30/22 07:02 87 04/30/22 04:00 37.0 C 82 18 110/62 91 Nasal Cannula 04/29/22 23:54 36.4 C L 79 18 102/59 L 91 Nasal Cannula O2 Flow Rate 04/30/22 10:00 10 04/30/22 07:25 8 04/30/22 07:02 04/30/22 04:00 6 04/29/22 23:54 6 PG Care Time/CCT Total # of Minutes Spent Total Time Spent with Patient: Total time spent is greater than 50% in coordination of care (as documented) at patient's floor/unit and/or counseling patient: Coding Level of Care Code 31931 Subseq Hosp Care Lvl 1 Diagnoses Ileocolitis K52.9
--- NOTE | 2022-04-30 10:32 | Hospitalist Progress Note ---
Date of Service April 30, 2022 Assessment & Plan (1) Acute respiratory failure: Plan: Acute respiratory 2/2 fluid overload. She has a +7.5L fluid balance since admission. Will start with more aggressive diuresis at this time. Monitor BMP and replace potassium as needed. She is currently tolerating PO. Would continue PO intake and avoid any IVF unless she requires it for stabilization of hemodynamics. She is DNR on hi flow oxygen. Aggressive medical diuresis is indicated. Kendall in place. Strict I/Os. Moving to PCU. (2) Sepsis: Plan: resuscitated on admission aggressively given her initial clinical picture and elevated lactate which has now resolved. (3) Ileocolitis: Plan: Uncertain cause, no stool studies have been able to be obtained. There is a concern for possible recent c-diff infection given diarrhea [employer] and now colonic distension, however, this has not been confirmed with stool studies. Per GI we are continuing with empiric treatment including vancomycin suspension 250mg PO q6h and intravenous metronidazole. She also has the appearance of an ileus on KUB and had some questionable nausea this am. If she continues to have issues with PO intake or starts vomiting, will consider NG tube placement. However, would hold off with that now given her tenuous respiratory status. We are continuing with cefepime empirically and KUB appears improved. (4) Colon distention: Plan: Vanc/Flagyl as above. Patient reports she is passing gas but no BM in 3 days. She is max assist at this time. Encourage movement of legs as tolerated. (5) Demand ischemia: (6) Abnormal EKG: Plan: Admitting troponin level 395, minimally up trended, admitting EKG with sinus tachycardia and ST depression in lateral leads. 04/27 echo: EF greater than 70%, hyperdynamic LV systolic function, grade 1 diastolic dysfunction. No segmental left ventricular wall motion abnormalities. Severe mitral annular calcification noted. Likely demand ischemia secondary to acute sepsis. No further cardiology workup recommended at this time. (7) Anemia: Plan: Baseline hemoglobin around 9. Hemoglobin dropped to 7.7 on 04/29, repeat hemoglobin is stable at 7.7. MCV 67.8. 04/29 iron profile with iron less than 10 and ferritin at 59.7, vitamin B12 low normal level. (8) Type 2 diabetes mellitus without complications: Plan: Glucose at goal, cont basal/bolus insulin. A1C at goal. (9) Ovarian cyst: Plan: nonurgent gynecology consultation for further investigation as outpatient. (10) Pulmonary nodule: Plan: repeat future CT scan in 6 months for stability. (11) Hyperparathyroidism: Plan: Takes cinacalcet. Follows with endocrinology at [facility]. (12) HTN (hypertension): Plan: low normal BP, hold losartan and amlodipine DVT proph: heparin DNR/DNI Dispo-transfer to PCU. Macey Lyons [facility] Ad[facility] and Anticipated Discharge Date Admission Date: April 27, 2022 Subjective 81 yo F admitted for severe sepsis 2/2 ileocolitis of uncertain origin. She has had no BM since admission. She admits to passing flatus, but is a poor historian 2/2 sarcasm so it is tough to discern what is real and what is a joke. She is working to breathe and has been escalated to hi flow oxygen supplementation overnight. She reports feeling a weazel in her chest and wants it gone. Has a sick sack lying on her abdomen and reports some nausea this am but then states that she feels fine. She appears diaphoretic and states that "in order for me to have a BM you have to feed me more." When asked if she is hungry she states she doesn't know. Kendall in place with concentrated appearing urine. Overall +7.5L fluid balance since admission. Review of Systems Review of Systems: All systems were reviewed and negative except as indicated on subjective above. Physical Exam Physical Exam: CONSTITUTIONAL: obese, vitals as above, generallyappears ill, diaphoretic, slight increased respiratory effort with hi flow oxygen supplementation in place. EYES: normal conjunctivae, no scleral icterus ENT: external ear and nose normal, MMM NECK: trachea midline, RESPIRATORY: crackles at bases bilaterally, no wheezing heard, however, exam is limited given poor effort and weakness. She cannot sit up in bed or roll in bed independently. CARDIOVASCULAR: regular rate and rhythm, S1 and 2 heard without murmurs, gallops or rubs, no JVD, no peripheral edema CHEST: inspection of chest was normal GASTROINTESTINAL: soft, TTP in lower quadrants bilaterally, soft NT, ND. MUSCULOSKELETAL: generalized weakness, head is normocephalic and atraumatic, SKIN: warm and diaphoretic. NEUROLOGIC: CN 2-12 grossly intact, no sensory deficit, normal cognition, no rmal speech PSYCHIATRIC: alert cooperative and oriented to person, place and time. Results & Data Results & Data ([facility]) Vital Signs (Past 12 Hours) Vital Signs Temp Pulse Pulse Resp BP Pulse Ox O2 Del Method 04/30/22 10:00 93 Oxymask 04/30/22 07:25 37.5 C 89 20 108/55 L 92 High Flow Nasal Cannula 04/30/22 07:02 87 04/30/22 04:00 37.0 C 82 18 110/62 91 Nasal Cannula 04/29/22 23:54 36.4 C L 79 18 102/59 L 91 Nasal Cannula O2 Flow Rate 04/30/22 10:00 10 04/30/22 07:25 8 04/30/22 07:02 04/30/22 04:00 6 04/29/22 23:54 6 Laboratory Results Short CBC 04/29/22 04/30/22 04/30/22 Range/Units 14:26 00:36 06:12 WBC 17.64 H (4.8-10.8) K/ul Hgb 7.7 L 8.5 L 8.7 L (12.0-16.0) g/dl Hct 25.5 L 27.5 L 28.0 L (34.1-44.9) % Plt Count 213 (130-400) K/uL BMP 04/30/22 06:12 Sodium 132 L Potassium 3.5 Chloride 101 Carbon Dioxide 24 BUN 28 H Creatinine 1.13 Glucose 100 H Calcium 7.3 L Diagnostic Findings KUB X-Ray 04/30/22 07:00 KUB CLINICAL HISTORY: Colonic dilatation. FINDINGS: 2 AP, portable, supine abdominal radiographs are compared to study dated 04/29/2022 and correlated with abdominal CT dated 04/27/2022. Cholecystectomy clips are seen in the right upper quadrant. Large drop to gallstones are again noted. There are mildly distended and gas-filled loops of small bowel and colon, modestly improved from yesterday. The colon measures up to 5.5 cm in diameter. This measured 6.5 cm at the same site on yesterday's examination. No high-grade obstruction is seen. No evidence of intraperitoneal free air is seen in these supine images. Skeletal structures are osteopenic and appear intact. There is moderate lumbosacral spondylosis. Scarring/atelectasis is suggested the lung bases. IMPRESSION: 1. Mild gaseous distention of the small bowel and colon has modestly improved from yesterday. The appearance favors ileus and clinical correlation will be required. 2. Dropped gallstones are again noted. Electronically signed by: Kahlil Mojica M.D. 04/30/2022 7:08 AM Medications Administered Current Inpatient Medications Acetaminophen (Acetaminophen 325 Mg Tab) 650 mg PO Q4H PRN PRN Reason: Pain or Fever Stop: 05/28/22 08:59 Amlodipine Besylate (A[facility]odipine Besylate 5 Mg Tab) [facility] Stop: 05/28/22 08:59 Last Admin: 04/28/22 08:09 Dose: 5 mg Aspirin (Aspirin 81 Mg Ectab) 81 mg PO DAILY [facility] Stop: 05/28/22 08:59 Last Admin: 04/30/22 07:49 Dose: 81 mg Cinacalcet (Cinacalcet Hcl 30 Mg Tab) 30 mg PO DAILY [facility] Stop: 05/28/22 08:59 Last Admin: 04/30/22 07:50 Dose: 30 mg Clopidogrel Bisulfate (Clopidogrel Bisulfate 75 Mg Tab) 75 mg PO QAM [facility] Stop: 05/28/22 08:59 Last Admin: 04/30/22 08:20 Dose: 75 mg Cyanocobalamin (Cyanocobalamin (B-12) 100 Mcg Tablet) 100 mcg PO QAM [facility] Stop: 05/29/22 15:44 Last Admin: 04/30/22 07:48 Dose: 100 mcg Dextrose (Dextrose 50% 50 Ml Syringe) 25 - 50 ml IV UD PRN; Protocol PRN Reason: Hypoglycemia Protocol Stop: 05/27/22 19:03 Furosemide (Furosemide 40 Mg/4 Ml Vial) 40 mg IV BID17 [facility] Stop: 05/30/22 20:59 Glucagon (Glucagon For Inj 1 Mg Vial) 1 mg SQ UD PRN; Protocol PRN Reason: Hypoglycemia Protocol Stop: 05/27/22 19:03 Glucose (Glucose 40% Gel 15 Gm Tube) 15 - 30 gm PO UD PRN; Protocol PRN Reason: Hypoglycemia Protocol Stop: 05/27/22 19:03 Glucose (Glucose 10 Tab/Tube) 4 - 8 tab PO UD PRN; Protocol PRN Reason: Hypoglycemia Treatment Stop: 05/27/22 19:03 Guaifenesin (Guaifenesin 600 Mg Tabcr) 600 mg PO Q12 [facility] Stop: 05/29/22 08:59 Last Admin: 04/30/22 08:38 Dose: 600 mg Heparin Sodium (Porcine) (Heparin Sod 5,000 Unit/0.5 Ml Vial) 5,000 units SQ Q12 [facility] Stop: 05/28/22 20:59 Last Admin: 04/29/22 07:47 Dose: 5,000 units Acetaminophen (Ofirmev) 1,000 mg in 100 mls @ 400 mls/hr IV Q8H [facility] Stop: 04/30/22 19:59 Last Infusion: 04/30/22 04:23 Dose: Infused Pantoprazole Sodium 40 mg/ (Syringe) 10 mls @ 5 mls/min IV BID [facility] Stop: 05/29/22 11:59 Last Admin: 04/30/22 07:47 Dose: 5 mls/min Metronidazole (Flagyl) 500 mg in 100 mls @ 100 mls/hr IV Q8H [facility] Stop: 05/09/22 15:59 Last Infusion: 04/30/22 08:49 Dose: Infused Cefepime HCl 2,000 mg/ Syringe 20 mls @ 5 mls/min IV Q12H [facility]; Protocol Stop: 05/09/22 16:14 Last Admin: 04/30/22 04:01 Dose: 5 mls/min Insulin Aspart (Insulin Aspart Per Unit) 0 units SC ACHS [facility] Stop: 05/27/22 20:59 Last Admin: 04/30/22 08:19 Dose: 3 units Insulin Glargine (Lantus Per Unit Charge) 0 - 20 units SQ BID [facility] Stop: 05/27/22 20:59 Last Admin: 04/30/22 08:19 Dose: 10 units Ketorolac Tromethamine (Ketorolac Tromethamine 15 Mg/Ml Vial) 15 mg IV Q6H PRN PRN Reason: moderate pain Stop: 05/03/22 11:50 Last Admin: 04/30/22 01:09 Dose: 15 mg Losartan Potassium (Losartan Potassium 25 Mg Tab) 25 mg PO DAILY [facility] Stop: 05/28/22 08:59 Last Admin: 04/28/22 08:09 Dose: 25 mg Magnesium Oxide (Magnesium Oxide 400 Mg Tab) 400 mg PO DAILY [facility] Stop: 05/28/22 08:59 Last Admin: 04/30/22 07:48 Dose: 400 mg Metoprolol Tartrate (Metoprolol Tartrate 25 Mg Tab) 12.5 mg PO BID [facility] Stop: 05/27/22 20:59 Last Admin: 04/30/22 08:38 Dose: 12.5 mg Miscellaneous (Carbohydrates For Hypoglycemia ) 15 - 30 gm PO UD PRN PRN Reason: Hypoglycemia Protocol Stop: 05/27/22 19:03 Morphine Sulfate (Morphine Sulfate 2 Mg/Ml Carp) 1 mg IV Q4H PRN PRN Reason: Severe Pain Stop: 05/11/22 19:03 Multivitamins (Multivitamin Tab) [facility] Stop: 05/04/22 09:01 Last Admin: 04/30/22 07:50 Dose: 1 tab Ondansetron HCl (Ondansetron Inj 2 Mg/Ml 2 Ml Vial) 4 mg IV Q6H PRN PRN Reason: Nausea Stop: 05/27/22 19:03 Last Admin: 04/29/22 16:09 Dose: 4 mg Pantoprazole Sodium (Pantoprazole 40 Mg Tab) 40 mg PO DAILY [facility] Stop: 05/28/22 08:59 Last Admin: 04/29/22 07:46 Dose: 40 mg Raspberry (Raspberry Syrup 5 Ml Udp) 5 ml PO Q6 [facility] Stop: 05/09/22 17:59 Last Admin: 04/30/22 05:34 Dose: 5 ml Simvastatin (Simvastatin 10 Mg Tab) 10 mg PO DAILY [facility] Stop: 05/28/22 08:59 Last Admin: 04/30/22 07:48 Dose: 10 mg Thiamine HCl (Thiamine Hcl 100 Mg Tab) 100 mg PO QAM [facility] Stop: 05/04/22 09:01 Last Admin: 04/30/22 07:50 Dose: 100 mg Vancomycin HCl (Vancomycin Hcl 250 Mg/5 Ml Soln) 250 mg PO Q6 [facility] Stop: 05/09/22 17:59 Last Admin: 04/30/22 05:34 Dose: 250 mg (1) Sepsis Sepsis type: sepsis due to unspecified organism Sepsis acute organ dysfunction status: without acute organ dysfunction Qualified Code(s): A41.9 - Sepsis, unspecified organism
[2022-04-30] MEDS ORDERED: POTASSIUM CHLORIDE CRTAB 20 MEQ TABCR PO STA (14:08)
[2022-04-30] MEDS ORDERED: FUROSEMIDE 40 MG/4 ML VIAL IV SCH ×2 (17:00→21:00)
[2022-04-30] MEDS: HEPARIN SOD 5,000 UNIT/0.5 ML VIAL SQ SCH (20:15)
[2022-04-30] MEDS ORDERED: ACETAMINOPHEN W/CODEINE #3 1 TAB PO ONE (21:27)
--- NOTE | 2022-04-30 21:40 | XRay Report ---
SINGLE VIEW CHEST CLINICAL HISTORY: Hypoxia. FINDINGS: An AP, portable, upright chest radiograph is compared to study dated 04/29/2022. The examin ation is degraded by portable technique, apical lordotic positioning, and patient rotation. The hear t is enlarged noting atherosclerotic calcification of the thoracic aorta. There is pulmonary vascular congestion and evidence of pulmonary edema. Scarring/atelectasis is noted at the lung bases. There a re layering pleural effusions with bibasilar consolidation. No pneumothorax is seen. The skeletal str uctures are osteopenic. There are healed right-sided rib fractures. IMPRESSION: 1. Cardiomegaly with congestive failure and pulmonary edema. This has worsened as compared to yesterd ay. 2. Layering pleural effusions with bibasilar consolidation. ACT 112: Negative or not required by law. Electronically signed by: Kahlil Mojica M.D. 04/30/2022 9:39 PM
[2022-04-30] MEDS ORDERED: ALBUMIN 25% 100 mL 25 GM/100 ML VIAL IV ONE (21:45)
[2022-04-30] MEDS ORDERED: FUROSEMIDE INJ 20 MG/2 ML VIAL IV ONE (21:45)
[2022-04-30] MEDS ORDERED: ALBUT/IPRATROP 3MG/0.5MG NEB 3 ML VIAL NEB STA (21:45)
[2022-04-30 22:10] LABS: HCO3 ABG 20 mmol/L (19-24); Oxygen Saturation ABG 97.4 % (90-95); PCO2 ABG 32 mmHg (35-46); PO2 ABG 73 mmHg (80-95)
[2022-04-30 22:11] LABS: Allen Test POS (Pos)
[2022-04-30] MEDS ORDERED: MAGNESIUM SULFATE / D5W 1 GM/100 ML BAG IV ONE (22:11)
[2022-04-30] MEDS ORDERED: traMADol HCL 50 MG TABLET PO PRN (23:48)
[2022-04-30] MEDS: oxyCODONE HCL IR 5 MG TAB (IMMEDIATE RELEASE) PO PRN (23:57)
[2022-05-01] MEDS: metroNIDAZOLE 500 MG/100 ML BAG IV SCH ×4 (00:14→23:01)
[2022-05-01] MEDS: CEFEPIME 2,000 MG in SYRINGE 0 ML IV SCH ×2 (03:05→15:58)
[2022-05-01] MEDS: oxyCODONE HCL IR 5 MG TAB (IMMEDIATE RELEASE) PO PRN (05:11)
[2022-05-01] MEDS: RASPBERRY SYRUP 5 ML UDP PO SCH ×4 (05:11→23:33)
[2022-05-01] MEDS: VANCOMYCIN HCL 250 MG/5 ML SOLN PO SCH ×4 (05:11→23:33)
[2022-05-01 06:52] LABS: Hematocrit (blood only) 27.3 % (34.1-44.9); Hemoglobin 8.7 g/dl (12.0-16.0); Mean Corpuscular Hemoglobin 21.8 pg (25.0-34.0); Mean Corpuscular Hgb Conc 31.9 g/dL (32.0-36.0); Mean Corpuscular Volume 68.3 fL (80.0-100.0); Mean Platelet Volume 11.1 fL (9.4-12.3); Nucleated RBC # (auto) 0.08 K/uL (0-0); Nucleated RBC % (auto) 0.4 %; Platelet Count 219 K/uL (130-400); RDW Coefficient of Variation 23.2 % (11.5-14.5); RDW Standard Deviation 55.2 fL (36.4-46.3); White Blood Count 18.53 K/ul (4.8-10.8)
[2022-05-01 07:15] LABS: Acanthocytes 1+; Anisocytosis Present; Basophils # (auto) 0.08 K/uL (0-0.2); Basophils % (auto) 0.4 %; Eosinophils # (auto) 0.33 K/uL (0-0.50); Eosinophils % (auto) 1.8 %; Immature Granulocytes # (auto) 0.18 K/uL (0.00-0.02); Lymphocytes # (auto) 1.59 K/uL (1.2-3.4); Lymphocytes % (auto) 8.6 %; Microcytosis Present; Monocytes # (auto) 1.85 K/uL (0.24-0.82); Neutrophils % (auto) 78.2 %; Polychromasia 1+; Target Cells 1+
[2022-05-01 07:16] LABS: BUN Creatinine Ratio 31.7 (10-20); Calcium 7.2 mg/dl (8.5-10.1); Est GFR (African American) 60.5 ml/min; Est GFR (Non-African American) 52.2 ml/min; Magnesium 1.9 mg/dl (1.7-2.4); Phosphorus 2.1 mg/dl (2.5-4.9); Potassium 3.9 mmol/L (3.5-5.1)
[2022-05-01] MEDS ORDERED: POTASSIUM CHLORIDE CRTAB 20 MEQ TABCR PO STA (07:49)
[2022-05-01] MEDS: LANTUS PER UNIT CHARGE SQ SCH ×2 (08:14→20:25)
[2022-05-01] MEDS: INSULIN ASPART PER UNIT SC SCH ×4 (08:14→20:20)
[2022-05-01] MEDS: CLOPIDOGREL BISULFATE 75 MG TAB PO SCH (08:15)
[2022-05-01] MEDS: PANTOprazole 40 MG in SYRINGE 0 ML IV SCH ×2 (08:15→21:34)
[2022-05-01] MEDS: HEPARIN SOD 5,000 UNIT/0.5 ML VIAL SQ SCH ×2 (08:16→21:12)
[2022-05-01] MEDS: ASPIRIN 81 MG ECTAB PO SCH (08:17)
[2022-05-01] MEDS: CINACALCET HCL 30 MG TAB PO SCH (08:18)
[2022-05-01] MEDS: METOPROLOL TARTRATE 25 MG TAB PO SCH ×2 (08:29→21:13)
[2022-05-01] MEDS ORDERED: FUROSEMIDE 40 MG/4 ML VIAL IV SCH (09:00)
--- NOTE | 2022-05-01 09:11 | Gastroenterology Progress Note ---
Date of Service May 01, 2022 Assessment & Plan (1) Colon distention: Plan: Seems to be stable. Continue current treatment. Will let her regular GI decide about colonoscopy if warranted Admission and Anticipated Discharge Date Admission Date: April 27, 2022 Subjective Says she doesn't know how she feels. Denies bowel movements. WBC up a little. KUB still with evidence of ileus but not impressive Physical Exam Constitutional: WD/WN, vitals as above Looks a little uncomfortable Gastrointestinal (Abdomen): Inspection/Auscultation: normal bowel sounds P ercussion/Palpation: + abdomen tender and abdomen soft Results & Data ([facility]) Vital Signs (Past 12 Hours) Vital Signs Temp Pulse Pulse Resp BP BP Pulse Ox 05/01/22 08:32 37.1 C 85 18 131/65 95 05/01/22 08:28 78 18 132/67 93 05/01/22 07:49 90 20 95 05/01/22 03:05 70 18 90 05/01/22 03:11 36.6 C 84 22 137/67 96 05/01/22 00:45 79 04/30/22 22:16 36.8 C 76 22 104/55 L 92 04/30/22 23:03 73 18 95 04/30/22 22:32 36.8 C 76 22 104/55 L 93 04/30/22 22:00 36.4 C L 76 24 111/50 L 97 O2 Del Method O2 Flow Rate FiO2 05/01/22 08:32 High Flow Nasal Cannula 30 75 05/01/22 08:28 High Flow Nasal Cannula 30 75 05/01/22 07:49 High Flow Nasal Cannula 35 80 05/01/22 03:05 High Flow Nasal Cannula 30 90 05/01/22 03:11 High Flow Nasal Cannula 35 90 05/01/22 00:45 04/30/22 22:16 High Flow Nasal Cannula 04/30/22 23:03 High Flow Nasal Cannula 30 80 04/30/22 22:32 High Flow Nasal Cannula 35 90 04/30/22 22:00 High Flow Nasal Cannula 35 90 Laboratory Results 05/01/22 05/01/22 05/01/22 Range/Units 05:41 05:41 05:41 WBC 18.53 H (4.8-10.8) K/ul RBC 4.00 (3.93-5.22) M/uL Hgb 8.7 L (12.0-16.0) g/dl Hct 27.3 L (34.1-44.9) % MCV 68.3 L (80.0-100.0) fL MCH 21.8 L (25.0-34.0) pg MCHC 31.9 L (32.0-36.0) g/dL RDW Std Deviation 55.2 H (36.4-46.3) fL RDW Coeff of Vanita 23.2 H (11.5-14.5) % Plt Count 219 (130-400) K/uL MPV 11.1 (9.4-12.3) fL Immature Gran % (Auto) 1.0 % Neut % (Auto) 78.2 % Lymph % (Auto) 8.6 % Tillman % (Auto) 10.0 % Eos % (Auto) 1.8 % Baso % (Auto) 0.4 % Neut # (Auto) 14.50 H (1.4-6.5) K/uL Lymph # (Auto) 1.59 (1.2-3.4) K/uL Tillman # (Auto) 1.85 H (0.24-0.82) K/uL Eos # (Auto) 0.33 (0-0.50) K/uL Baso # (Auto) 0.08 (0-0.2) K/uL Immature Gran # (Auto) 0.18 H (0.00-0.02) K/uL Absolute Nucleated RBC 0.08 H (0-0) K/uL Nucleated RBC % (auto) 0.4 % Polychromasia 1+ Anisocytosis Present Microcytosis Present Target Cells 1+ Acanthocytes (Spur) 1+ ABG pH (7.35-7.45) ABG pCO2 (35-46) mmHg ABG pO2 (80-95) mmHg ABG HCO3 (19-24) mmol/L ABG O2 Saturation (90-95) % ABG Base Excess (-9-1.8) mEq/L Jose Test (Pos) Oxygen Given Sodium 131 L (136-145) mmol/L Potassium 3.9 (3.5-5.1) mmol/L Chloride 101 (98-107) mmol/L Carbon Dioxide 22 (21-32) mmol/L Anion Gap 8 (3-11) BUN 32 H (6-23) mg/dl Creatinine 1.01 (0.6-1.2) mg/dl Est Cr Clr Drug Dosing 46.0 ml/min Est GFR ( Amer) 60.5 ml/min Est GFR (Non-Af Amer) 52.2 ml/min BUN/Creatinine Ratio 31.7 H (10-20) Glucose 187 H (70-99(Fasting)) mg/dl POC Glucose (70-99) mg/dl Calcium 7.2 L (8.5-10.1) mg/dl Phosphorus 2.1 L (2.5-4.9) mg/dl Magnesium 1.9 (1.7-2.4) mg/dl B-Natriuretic Peptide 416 H (0-100) pg/ml 04/30/22 04/30/22 04/30/22 Range/Units 21:59 20:21 15:47 WBC (4.8-10.8) K/ul RBC (3.93-5.22) M/uL Hgb (12.0-16.0) g/dl Hct (34.1-44.9) % MCV (80.0-100.0) fL MCH (25.0-34.0) pg MCHC (32.0-36.0) g/dL RDW Std Deviation (36.4-46.3) fL RDW Coeff of Vanita (11.5-14.5) % Plt Count (130-400) K/uL MPV (9.4-12.3) fL Immature Gran % (Auto) % Neut % (Auto) % Lymph % (Auto) % Tillman % (Auto) % Eos % (Auto) % Baso % (Auto) % Neut # (Auto) (1.4-6.5) K/uL Lymph # (Auto) (1.2-3.4) K/uL Tillman # (Auto) (0.24-0.82) K/uL Eos # (Auto) (0-0.50) K/uL Baso # (Auto) (0-0.2) K/uL Immature Gran # (Auto) (0.00-0.02) K/uL Absolute Nucleated RBC (0-0) K/uL Nucleated RBC % (auto) % Polychromasia Anisocytosis Microcytosis Target Cells Acanthocytes (Spur) ABG pH 7.40 (7.35-7.45) ABG pCO2 32 L (35-46) mmHg ABG pO2 73 L (80-95) mmHg ABG HCO3 20 (19-24) mmol/L ABG O2 Saturation 97.4 H (90-95) % ABG Base Excess -4.0 (-9-1.8) mEq/L Jose Test POS (Pos) Oxygen Given FiO2 30% Sodium (136-145) mmol/L Potassium (3.5-5.1) mmol/L Chloride (98-107) mmol/L Carbon Dioxide (21-32) mmol/L Anion Gap (3-11) BUN (6-23) mg/dl Creatinine (0.6-1.2) mg/dl Est Cr Clr Drug Dosing ml/min Est GFR ( Amer) ml/min Est GFR (Non-Af Amer) ml/min BUN/Creatinine Ratio (10-20) Glucose (70-99(Fasting)) mg/dl POC Glucose 284 H 175 H (70-99) mg/dl Calcium (8.5-10.1) mg/dl Phosphorus (2.5-4.9) mg/dl Magnesium (1.7-2.4) mg/dl B-Natriuretic Peptide (0-100) pg/ml 04/30/22 Range/Units 11:46 WBC (4.8-10.8) K/ul RBC (3.93-5.22) M/uL Hgb (12.0-16.0) g/dl Hct (34.1-44.9) % MCV (80.0-100.0) fL MCH (25.0-34.0) pg MCHC (32.0-36.0) g/dL RDW Std Deviation (36.4-46.3) fL RDW Coeff of Vanita (11.5-14.5) % Plt Count (130-400) K/uL MPV (9.4-12.3) fL Immature Gran % (Auto) % Neut % (Auto) % Lymph % (Auto) % Tillman % (Auto) % Eos % (Auto) % Baso % (Auto) % Neut # (Auto) (1.4-6.5) K/uL Lymph # (Auto) (1.2-3.4) K/uL Tillman # (Auto) (0.24-0.82) K/uL Eos # (Auto) (0-0.50) K/uL Baso # (Auto) (0-0.2) K/uL Immature Gran # (Auto) (0.00-0.02) K/uL Absolute Nucleated RBC (0-0) K/uL Nucleated RBC % (auto) % Polychromasia Anisocytosis Microcytosis Target Cells Acanthocytes (Spur) ABG pH (7.35-7.45) ABG pCO2 (35-46) mmHg ABG pO2 (80-95) mmHg ABG HCO3 (19-24) mmol/L ABG O2 Saturation (90-95) % ABG Base Excess (-9-1.8) mEq/L Jose Test (Pos) Oxygen Given Sodium (136-145) mmol/L Potassium (3.5-5.1) mmol/L Chloride (98-107) mmol/L Carbon Dioxide (21-32) mmol/L Anion Gap (3-11) BUN (6-23) mg/dl Creatinine (0.6-1.2) mg/dl Est Cr Clr Drug Dosing ml/min Est GFR ( Amer) ml/min Est GFR (Non-Af Amer) ml/min BUN/Creatinine Ratio (10-20) Glucose (70-99(Fasting)) mg/dl POC Glucose 210 H (70-99) mg/dl Calcium (8.5-10.1) mg/dl Phosphorus (2.5-4.9) mg/dl Magnesium (1.7-2.4) mg/dl B-Natriuretic Peptide (0-100) pg/ml Diagnostic Findings Abdomen/Pelvis CT 04/27/22 13:[address] WITH IV CONTRAST CT DOSE: 908.81 mGycm HISTORY: Right lower quadrant pain. TECHNIQUE: Multiaxial CT images of the abdomen and pelvis were performed following the use of intravenous contrast. A dose lowering technique was utilized adhering to the principles of ALARA. COMPARISON STUDY: None. FINDINGS: Interstitial thickening at the lung bases is noted. This may be chr onic. There are mild dependent changes at the lung bases. Partially visualized 6 mm nodule within the left lower lobe there is an additional 8 mm irregular nodule within the left lower lobe on image 29. No pneumoperitoneum. No pneumatosis. No fractures within the visualized osseous structures. The heart is borderline enlarged. Small right upper quadrant abdominal wall defect/hernia measuring 2 cm. This favors a prior laparoscopic port site given the prior cholecystectomy. There are are scattered dropped gallstones within the right side of the abdomen and within the anterior abdominal wall measuring up to 2.3 cm. Nodular contour to the liver consistent with cirrhosis. Moderate bile duct dilatation likely due to the patient's postcholecystectomy state. The spleen, pancreas, and right adrenal gland are unremarkable. There is mild thickening of the left adrenal gland. There is a 4 mm stone within the right kidney. No left renal calculi. No ureteral calculi. No hydronephrosis. There are few scattered hypodensities within the kidneys. The majority these are technically too small to characterize but statistically represent cysts. No retroperitoneal lymphadenopathy. 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 No pelvic lymphadenopathy or pelvic free fluid. The bladder is unremarkable. Prior hysterectomy. There is a 7.2 cm right ovarian cyst. This could be pathologic in a postmenopausal female. Colonic diverticulosis. No evidence for acute diverticulitis. Mild circumferential thickening within the ascending colon with mild pericolonic fat stranding. There is also mild circumferential thickening of the distal terminal ileum near the ileocecal valve. This is consistent with a nonspecific ileocolitis and favors an infectious or inflammatory process. A portal colopathy could also a similar appearance but is considered less likely. No evidence for bowel obstruction. IMPRESSION: 1. Mild circumferential thickening within the ascending colon with mild pericolonic fat stranding. There is also mild circumferential thickening of the distal terminal ileum near the ileocecal valve. This is consistent with a nonspecific ileocolitis and favors an infectious or inflammatory process. A portal colopathy could also a similar appearance but is considered less likely. 2. Cirrhotic liver. 3. There are 2 irregular nodule within the left lower lobe with the largest measuring 8 mm. Follow-up chest CT in 6 months is recommended to ensure stability/resolution. 4. Right-sided nephrolithiasis. No ureteral stones. No hydronephrosis. 5. A 7.2 cm right ovarian cyst. This is considered to be pathologic in a postmenopausal female. Follow-up nonemergent gynecologic consultation recommended. 6. Additional findings as described above. ACT 112: Negative or not required by law. Electronically signed by: Pee Parker M.D. 04/27/2022 3:01 PM Venous Doppler Study 04/27/22 16:59 BILATERAL LOWER EXTREMITY VENOUS DOPPLER HISTORY: Lower extremity pain. COMPARISON STUDY: None. FINDINGS: There is normal compressibility, flow, and augmentation within the bilateral lower extremity deep venous systems. IMPRESSION: No DVT within the right or left lower extremity. ACT 112: Negative or not required by law. Electronically signed by: Pee Parker M.D. 04/27/2022 5:59 PM
[2022-05-01] MEDS ORDERED: bisacodyL 10 MG SUPP PR STA (10:30)
--- NOTE | 2022-05-01 10:36 | Surgery Progress Note ---
Date of Service May 01, 2022 Assessment & Plan (1) Ileocolitis: Plan: KUB images reviewed personally by myself, she does have some colon distention however her cecum remains only mildly dilated She remains a poor surgical candidate and would only entertain surgery if her condition became life-threatening Continue her IV antibiotics Consideration can be given to a decompressive colonoscopy by GI if her distention worsens Admission and Anticipated Discharge Date Admission Date: April 27, 2022 Subjective Patient seen and examined. Remains stable from an abdominal standpoint. Still with pain but states slightly better than yesterday. No bowel movement. Afebrile. No tachycardia. Review of Systems Constitutional: no fever and no chills Physical Exam Constitutional: WD/WN, vitals as above Gastrointestinal (Abdomen): Inspection/Auscultation: abdomen normal to inspection; abdomen not distended Percussion/Palpation: + abdomen tender (Mild diffuse) and abdomen soft; no guarding and abdomen not rigid Results & Data ([facility]) Vital Signs (Past 12 Hours) Vital Signs Temp Pulse Pulse Resp BP Pulse Ox O2 Del Method 05/01/22 08:32 37.1 C 85 18 131/65 95 High Flow Nasal Cannula 05/01/22 08:28 78 18 132/67 93 High Flow Nasal Cannula 05/01/22 07:49 90 20 95 High Flow Nasal Cannula 05/01/22 03:05 70 18 90 High Flow Nasal Cannula 05/01/22 03:11 36.6 C 84 22 137/67 96 High Flow Nasal Cannula 05/01/22 00:45 79 04/30/22 23:03 73 18 95 High Flow Nasal Cannula O2 Flow Rate FiO2 05/01/22 08:32 30 75 05/01/22 08:28 30 75 05/01/22 07:49 35 80 05/01/22 03:05 30 90 05/01/22 03:11 35 90 05/01/22 00:45 04/30/22 23:03 30 80 PG Care Time/CCT Total # of Minutes Spent Total Time Spent with Patient: Total time spent is greater than 50% in coordination of care (as documented) at patient's floor/unit and/or counseling patient: Coding Level of Care Code 72960 Subseq Hosp Care Lvl 1 Diagnoses Ileocolitis K52.9
--- NOTE | 2022-05-01 10:49 | Hospitalist Progress Note ---
Date of Service May 01, 2022 Assessment & Plan (1) Acute respiratory failure: Plan: Acute respiratory 2/2 fluid overload. She has a +8L fluid balance since admission. Overnight she has a net positive fluid retention instead of diuresis. Reconsulting cardiology and nephrology to assist with fluid overload. In the meantime, will increase Lasix to 60mg IV BID and continue with prophylactic potassium replacement. Cont hi flow oxygen. Cont Kendall in place. Strict I/Os. Cont PCU monitoring. (2) Sepsis: Plan: resuscitated on admission aggressively given her initial clinical picture and elevated lactate which has now resolved. She continues on Day 4 of broad spectrum abx including Cefepime, Flagyl and vanc PO (for empiric treatment of possible c-diff/toxic megacolon). (3) Ileocolitis: Plan: Uncertain cause, no stool studies have been able to be obtained. There is a concern for possible recent c-diff infection given diarrhea [employer] and now colonic distension, however, this has not been confirmed with stool studies. Per GI we are continuing with empiric treatment including vancomycin suspension 250mg PO q6h and intravenous metronidazole. She also has the appearance of an ileus on KUB and this is persistent on KUB findings this am. If she continues to have issues with PO intake or starts vomiting, will consider NG tube placement. However, would hold off with that now given her tenuous respiratory status. We are continuing with cefepime empirically. Will give dulcolax suppository now. (4) Colon distention: Plan: Vanc/Flagyl as above. Patient reports she is passing gas but no BM in 4 days. She is max assist at this time. Encourage movement of legs as tolerated. (5) Demand ischemia: (6) Abnormal EKG: Plan: Admitting troponin level 395, minimally up trended, admitting EKG with sinus tachycardia and ST depression in lateral leads. 04/27 echo: EF greater than 70%, hyperdynamic LV systolic function, grade 1 diastolic dysfunction. No segmental left ventricular wall motion abnormalities. Severe mitral annular calcification noted. Likely demand ischemia secondary to acute sepsis. No further cardiology workup recommended at this time. (7) Anemia: Plan: Baseline hemoglobin around 8.7. She was given a blood transfusion on the agustina of 04/29 with a small amount of lasix (20mg IV in the morning and in the evening with the blood) given on that day. Her Hb is holding steady and there is no acute bleeding issue. Considered TACO vs TRALI, however, both considered less likely given the overall I/O net positive since admission. Consider repeat echo now to reassess EF. (8) Type 2 diabetes mellitus without complications: Plan: Glucose at goal, cont basal/bolus insulin. A1C at goal. (9) Ovarian cyst: Plan: nonurgent gynecology consultation for further investigation as outpatient. (10) Pulmonary nodule: Plan: repeat future CT scan in 6 months for stability. (11) Hyperparathyroidism: Plan: Takes cinacalcet. Follows with endocrinology at [facility]. (12) HTN (hypertension): Plan: low normal BP, hold losartan and amlodipine DVT proph: heparin DNR/DNI Dispo-cont PCU. Family was updated at bedside last evening (sister/), and will continue to keep them regularly updated on her status. Macey Lyons DO [facility] Hospitalist Admission and Anticipated Discharge Date Admission Date: April 27, 2022 Subjective 81 yo F admitted for severe sepsis 2/2 ileocolitis of uncertain origin. She has had no BM since admission despite multiple stools prior to arrival. Today she doesn't know if she is passing flatus and there has been no BM yet. KUB not read yet but appears to be more colonic distension and exam corroborates that with a soft diffusely tender abdomen with palpation. She cannot say if she has had a fever or chills overnight, with the record revealing no fever. She denies any pain per se. She denies any difficulty breathing on the hi flow oxygen. Still with crackles in her lungs from the midposterior field and down, no peripheral edema. Overnight she received lasix and albumin. She still has a positive net output this morning of about 1L. Placed on fluid restriction this morning, and lasix dose was increased to 60mg IV BID. Consulted cardiology to assist with fluid overload. Patient otherwise just continues to state that she feels lousy. Discussed case by phone with GI regional sales associate who gave me the green light to move forward with a Dulcolax suppository. He is against a soap suds enema. She is amenable to this. She is also fine with temporary bipap if it were to be needed. Review of Systems Review of Systems: All systems were reviewed and negative except as indicated on subjective above. Physical Exam Physical Exam: CONSTITUTIONAL: obese, vitals as above, generallyappears ill, diaphoretic, slight increased respiratory effort with hi flow oxygen supplementation in place. EYES: normal conjunctivae, no scleral icterus ENT: external ear and nose normal, MMM NECK: trachea midline, RESPIRATORY: crackles at bases bilaterally, no wheezing heard, however, exam is limited given poor effort and weakness. She cannot sit up in bed or roll in bed independently. CARDIOVASCULAR: regular rate and rhythm, S1 and 2 heard without murmurs, gallops or rubs, no JVD, no peripheral edema CHEST: inspection of chest was normal GASTROINTESTINAL: soft, TTP in lower quadrants bilaterally, soft NT, ND. MUSCULOSKELETAL: generalized weakness, head is normocephalic and atraumatic, SKIN: warm and diaphoretic. NEUROLOGIC: CN 2-12 grossly intact, no sensory deficit, normal cognition, normal speech PSYCHIATRIC: alert cooperative and oriented to person, place and time. Results & Data Results & Data ([facility]) Vital Signs (Past 12 Hours) Vital Signs Temp Pulse Pulse Resp BP BP Pulse Ox 05/01/22 08:32 37.1 C 85 18 131/65 95 05/01/22 08:28 78 18 132/67 93 05/01/22 07:49 90 20 95 05/01/22 03:05 70 18 90 05/01/22 03:11 36.6 C 84 22 137/67 96 05/01/22 00:45 79 04/30/22 23:03 73 18 95 04/30/22 22:32 36.8 C 76 22 104/55 L 93 O2 Del Method O2 Flow Rate FiO2 05/01/22 08:32 High Flow Nasal Cannula 30 75 05/01/22 08:28 High Flow Nasal Cannula 30 75 05/01/22 07:49 High Flow Nasal Cannula 35 80 05/01/22 03:05 High Flow Nasal Cannula 30 90 05/01/22 03:11 High Flow Nasal Cannula 35 90 05/01/22 00:45 04/30/22 23:03 High Flow Nasal Cannula 30 80 04/30/22 22:32 High Flow Nasal Cannula 35 90 Laboratory Results Short CBC 05/01/22 Range/Units 05:41 WBC 18.53 H (4.8-10.8) K/ul Hgb 8.7 L (12.0-16.0) g/dl Hct 27.3 L (34.1-44.9) % Plt Count 219 (130-400) K/uL [facility] 05/01/22 05:41 Sodium 131 L Potassium 3.9 Chloride 101 Carbon Dioxide 22 BUN 32 H Creatinine 1.01 Glucose 187 H Calcium 7.2 L Medications Administered Current Inpatient Medications Acetaminophen (Acetaminophen 325 Mg Tab) 650 mg PO Q4H PRN PRN Reason: Pain or Fever Stop: 05/28/22 08:59 Amlodipine Besylate (Amlodipine Besylate 5 Mg Tab) 5 mg PO QAM [facility] Stop: 05/28/22 08:59 Last Admin: 04/28/22 08:09 Dose: 5 mg Aspirin (Aspirin 81 Mg Ectab) 81 mg PO DAILY [facility] Stop: 05/28/22 08:59 Last Admin: 05/01/22 08:17 Dose: 81 mg Cinacalcet (Cinacalcet Hcl 30 Mg Tab) 30 mg PO DAILY [facility] Stop: 05/28/22 08:59 Last Admin: 05/01/22 08:18 Dose: 30 mg Clopidogrel Bisulfate (Clopidogrel Bisulfate 75 Mg Tab) 75 mg PO QAM [facility] Stop: 05/28/22 08:59 Last Admin: 05/01/22 08:15 Dose: 75 mg Dextrose (Dextrose 50% 50 Ml Syringe) 25 - 50 ml IV UD PRN; Protocol PRN Reason: Hypoglycemia Protocol Stop: 05/27/22 19:03 Furosemide (Furosemide 40 Mg/4 Ml Vial) 60 mg IV BID17 [facility] Stop: 05/31/22 08:59 Last Admin: 05/01/22 08:29 Dose: 60 mg Glucagon (Glucagon For Inj 1 Mg Vial) 1 mg SQ UD PRN; Protocol PRN Reason: Hypoglycemia Protocol Stop: 05/27/22 19:03 Glucose (Glucose 40% Gel 15 Gm Tube) 15 - 30 gm PO UD PRN; Protocol PRN Reason: Hypoglycemia Protocol Stop: 05/27/22 19:03 Glucose (Glucose 10 Tab/Tube) 4 - 8 tab PO UD PRN; Protocol PRN Reason: Hypoglycemia Treatment Stop: 05/27/22 19:03 Heparin Sodium (Porcine) (Heparin Sod 5,000 Unit/0.5 Ml Vial) 5,000 units SQ Q12 [facility] Stop: 05/28/22 20:59 Last Admin: 05/01/22 08:16 Dose: 5,000 units Pantoprazole Sodium 40 mg/ (Syringe) 10 mls @ 5 mls/min IV BID [facility] Stop: 05/29/22 11:59 Last Admin: 05/01/22 08:15 Dose: 5 mls/min Metronidazole (Flagyl) 500 mg in 100 mls @ 100 mls/hr IV Q8H [facility] Stop: 05/09/22 15:59 Last Admin: 05/01/22 08:46 Dose: 100 mls/hr Cefepime HCl 2,000 mg/ Syringe 20 mls @ 5 mls/min IV Q12H [facility]; Protocol Stop: 05/09/22 16:14 Last Admin: 05/01/22 03:05 Dose: 5 mls/min Insulin Aspart (Insulin Aspart Per Unit) 0 units SC ACHS [facility] Stop: 05/27/22 20:59 Last Admin: 05/01/22 08:14 Dose: 4 units Insulin Glargine (Lantus Per Unit Charge) 0 - 20 units SQ BID [facility] Stop: 05/27/22 20:59 Last Admin: 05/01/22 08:14 Dose: 20 units Losartan Potassium (Losartan Potassium 25 Mg Tab) 25 mg PO DAILY [facility] Stop: 05/28/22 08:59 Last Admin: 04/28/22 08:09 Dose: 25 mg Magnesium Oxide (Magnesium Oxide 400 Mg Tab) 400 mg PO DAILY [facility] Stop: 05/28/22 08:59 Last Admin: 04/30/22 07:48 Dose: 400 mg Metoprolol Tartrate (Metoprolol Tartrate 25 Mg Tab) 12.5 mg PO BID [facility] Stop: 05/27/22 20:59 Last Admin: 05/01/22 08:29 Dose: 12.5 mg Miscellaneous (Carbohydrates For Hypoglycemia ) 15 - 30 gm PO UD PRN PRN Reason: Hypoglycemia Protocol Stop: 05/27/22 19:03 Oxycodone HCl (Oxycodone Hcl Ir 5 Mg Tab (Immediate Release)) 5 mg PO Q4H PRN PRN Reason: Pain Stop: 05/14/22 23:48 Last Admin: 05/01/22 05:11 Dose: 5 mg Pantoprazole Sodium (Pantoprazole 40 Mg Tab) 40 mg PO DAILY [facility] Stop: 05/28/22 08:59 Last Admin: 04/29/22 07:46 Dose: 40 mg Raspberry (Raspberry Syrup 5 Ml Udp) 5 ml PO Q6 [facility] Stop: 05/09/22 17:59 Last Admin: 05/01/22 05:11 Dose: 5 ml Simvastatin (Simvastatin 10 Mg Tab) 10 mg PO DAILY [facility] Stop: 05/28/22 08:59 Last Admin: 04/30/22 07:48 Dose: 10 mg Vancomycin HCl (Vancomycin Hcl 250 Mg/5 Ml Soln) 250 mg PO Q6 [facility] Stop: 05/09/22 17:59 Last Admin: 05/01/22 05:11 Dose: 250 mg (1) Sepsis Sepsis type: sepsis due to unspecified organism Sepsis acute organ dysfunction status: without acute organ dysfunction Qualified Code(s): A41.9 - Sepsis, unspecified organism
[2022-05-01] MEDS ORDERED: metOLazone 2.5 MG TABLET PO ONE (10:58)
--- NOTE | 2022-05-01 11:34 | Nephrology Consultation ---
Date of Consultation May 01, 2022 Assessment & Plan (1) Acute respiratory failure: - likely 2/ pulmonary edema/ excerbation of heart failure. Renal function are normal and she continues to make urine. - No more albumin - Increase furosemide to 80 mg BID - Daily I/O - Non invasive ventilation would help - Cardiology recs (2) Sepsis: As per GI/ Surgery - 2/ iliocolitis. (3) Ileocolitis: (4) HTN (hypertension): - acceptable - continue on home antihypertensives, Increase lasix dose as above. History of Present Illness Reason for Consultation: Fluid overload., Pulmonary Edema Attending Physician: Macey Lyons, DO History of Present Illness 81-year-old female a/w severe Sepsis 2/right-sided colitis and mild cecal distention.Cxr suggestive of Pulmonary edema. She received albumin and lasix ( dose was increased to 60 mg IV BId from 40 mg BId today) UOP has been @ 1 lit. Normal renal functions.She is presently on Iv aBX , PO vancomycin for possible C. difficle. PMh - HFpEF, CVA, HTN,lumbago and DM Sleepy but arousable on exam , and appears to be in mild respiratory distress on high flow Oxygen.1+ Peripheral edema.Nephrology consulted for management of Fluid overload/ pulmonary edema. Allergies Allergy/AdvReac Type Severity Reaction Status Date / Time No Known Allergies Allergy Verified 04/27/22 15:53 Home Medications Medication Instructions Recorded Confirmed Type alendronate 70 mg tablet 70 mg PO WK 01/22/22 04/27/22 History biotin 1 mg tablet 1 mg PO TID 01/22/22 04/27/22 History cinacalcet 30 mg tablet 30 mg PO DAILY 01/22/22 04/27/22 History glucosamine-chondroitin 250 mg-200 1 tab PO DAILY 01/22/22 04/27/22 History mg tablet (Osteo Bi-Flex) insulin human U-100 NPH-regulr See Rx Instructions .Route .COMPLEX 01/22/22 04/27/22 History 70-30 mix 100 unit/mL subcutaneous susp (Novolin 70/30 U-100 Insulin) losartan 25 mg tablet 25 mg PO DAILY 01/22/22 04/27/22 History metformin 1,000 mg tablet 1,000 mg PO BID 01/22/22 04/27/22 History ylmwvjusadbb-wpdsavay-ibtbup tablet 1 tab PO DAILY 01/22/22 04/27/22 History potassium gluconate 595 mg (99 mg) 595 mg PO DAILY 01/22/22 04/27/22 History tablet simvastatin 10 mg tablet 10 mg PO DAILY 01/22/22 04/27/22 History vitamin B complex 1 tab PO DAILY 01/22/22 04/27/22 History clopidogrel 75 mg tablet 75 mg PO QAM #60 tabs 01/29/22 04/27/22 Rx furosemide 40 mg tablet (Lasix) 40 mg PO DAILY #30 tabs 01/29/22 04/27/22 Rx magnesium oxide 400 mg (241.3 mg 400 mg PO DAILY #60 tabs 01/29/22 04/27/22 Rx magnesium) tablet metoprolol tartrate 25 mg tablet 12.5 mg PO BID #30 tabs 01/29/22 04/27/22 Rx pantoprazole 40 mg tablet,delayed 40 mg PO DAILY #30 tabs 01/29/22 04/27/22 Rx release amlodipine 5 mg tablet 5 mg PO QAM 04/27/22 04/27/22 History aspirin 81 mg tablet,delayed 81 mg PO DAILY 04/27/22 04/27/22 History release benzonatate 100 mg capsule 100 mg PO TID PRN Cough 04/27/22 04/27/22 History glipizide 10 mg tablet 10 mg PO BID 04/27/22 04/27/22 History Patient History Medical History Acute CVA (cerebrovascular accident) Acute heart failure with preserved ejection fraction (HFpEF) Acute respiratory failure with hypoxia Coronary atherosclerosis of kaw coronary vessel CVA (cerebral vascular accident) Essential (primary) hypertension Lumbago Other and unspecified hyperlipidemia Type 2 diabetes mellitus without complications Weakness of right upper extremity Surgical History History of cataract surgery S/P cholecystectomy Family History Mother , age 70 of a stroke and congestive heart failure Stroke CHF (congestive heart failure) Father , in his 70s of an [place] Myocardial infarction Social History Smoking Status: Former smoker packs per day: 4; Hx Alcohol Use: No Hx Substance Use: No Preferred Language: Malian Communication Ability: Effective [employer] Supervisor Required: No Beliefs That Will Affect Care: None marital status: Current Living Situation: Spouse current occupational status: retired current occupation: Multiple different jobs retiring in her 50s. Feels Safe at Home: Yes Assistive Devices: Cane and Walker Review of Systems Review of Systems: All systems reviewed & are unremarkable except as noted in HPI & below Physical Exam Physical Exam: CONSTITUTIONAL:Obese,appears ill, diaphoretic, slight increased respiratory effort with hi flow oxygen supplementation in place. EYES: normal conjunctivae, no scleral icterus ENT: external ear and nose normal, MMM NECK: trachea midline, RESPIRATORY: crackles at bases bilaterally. CARDIOVASCULAR: regular rate and rhythm, S1 and 2 heard without murmurs, g allops or rubs, no JVD, no peripheral edema GASTROINTESTINAL: soft, TTP in lower quadrants bilaterally, soft NT, ND. MUSCULOSKELETAL:1+ edema bilaterally NEUROLOGIC: CN 2-12 grossly intact, no sensory deficit, normal cognition, normal speech . Results & Data ([facility]) Vital Signs (Past 12 Hours) Vital Signs Temp Pulse Pulse Resp BP Pulse Ox O2 Del Method 05/01/22 08:32 37.1 C 85 18 131/65 95 High Flow Nasal Cannula 05/01/22 08:28 78 18 132/67 93 High Flow Nasal Cannula 05/01/22 07:49 90 20 95 High Flow Nasal Cannula 05/01/22 03:05 70 18 90 High Flow Nasal Cannula 05/01/22 03:11 36.6 C 84 22 137/67 96 High Flow Nasal Cannula 05/01/22 00:45 79 O2 Flow Rate FiO2 05/01/22 08:32 30 75 05/01/22 08:28 30 75 05/01/22 07:49 35 80 05/01/22 03:05 30 90 05/01/22 03:11 35 90 05/01/22 00:45 Laboratory Results 05/01/22 05:41 05/01/22 05:41 (1) Sepsis Sepsis acute organ dysfunction status: without acute organ dysfunction Sepsis type: sepsis due to unspecified organism Qualified Code(s): A41.9 - Sepsis, un specified organism
--- NOTE | 2022-05-01 11:46 | XRay Report ---
XR chest 1V portable CLINICAL HISTORY: pulmonary edema, hypoxia TECHNIQUE: Single frontal radiograph of the chest was obtained. Comparison: Comparison is made to chest radiograph 04/30/2022 FINDINGS: No lines and tubes are seen. Cardiomegaly is noted. The aortic arch is calcified. There is prominence and cephalization of the vasculature with Mitali B lines seen. Bilateral pleural effusions are essen tially unchanged. IMPRESSION: Moderate pulmonary edema is again seen with associated cardiomegaly. This is essentially stable from prior exam. ACT 112: Negative or not required by law. Electronically signed by: Kingston Dunlap M.D. 05/01/2022 11:44 AM
--- NOTE | 2022-05-01 11:50 | XRay Report ---
XR KUB/Abdomen 1 view CLINICAL HISTORY: f/u colon dilatation TECHNIQUE: 1 view of the abdomen was obtained. Comparison: Comparison is made to abdomen radiograph 04/30/2022 FINDINGS: Cholecystomy clips are seen in the right upper quadrant. Radiodense gallstones are noted. Degenerativ e changes are seen in the visualized skeleton. Prominent loops of gas distended large bowel are noted . No small bowel distention is definitely seen. IMPRESSION: No definite evidence of obstruction or ileus. Gas distended loops of large bowel are seen. ACT 112: Negative or not required by law. Electronically signed by: Kingston Dunlap M.D. 05/01/2022 11:47 AM
--- NOTE | 2022-05-01 13:30 | Cardiology Progress Note ---
Date of Service May 01, 2022 Assessment & Plan (1) Abnormal CT scan: (2) Abdominal pain: (3) Sepsis: (4) Ileocolitis: (5) Elevated troponin I level: (6) Abdominal pain, acute, right lower quadrant: (7) Abnormal EKG: (8) Vomiting: (9) Coronary atherosclerosis of [place] coronary vessel: (10) Mitral stenosis: (11) Chronic heart failure with preserved ejection fraction (HFpEF): Plan The patient is volume overloaded. It appears that with the recent changes in diuretics by increasing the Lasix and adding Zaroxolyn the patient's urine output has increased. Her oxygenation has also improved. The only additional that I might consider is switching her Lasix over to Bumex. If you switch she can switch you can give her Bumex 4 mg IV twice daily. Admission and Anticipated Discharge Date Admission Date: April 27, 2022 Subjective The patient is comfortable with high flow oxygen. Review of Systems Review of Systems: Review of Systems: See HPI for pertinent positives. All other 10 point review of systems are negative. Physical Exam Physical Exam: General: no acute distress and stated age Head: normocephalic, no masses, lesions, tenderness or abnormalities Eyes: conjunctiva are pink and non-injected, sclera clear Neck: supple, no adenopathy, no bruits, normal jugular venous pulse, no hepatojugular reflux Chest: normal shape and normal respiratory effort Lungs: clear to auscultation and percussion Cardiac Exam: - regular rate & rhythm, no murmurs gallops or rubs - normal S1, normal S2 Pulses: 2(+) throughout Abdomen: abdomen soft, non-tender, no abnormal masses and no hepatosplenomegaly Musculoskeletal: no gait disturbance, no joint inflammation, no deforming arthritis Extremities: no edema and no cyanosis Neuro: grossly normal exam Results & Data ([facility]) Vital Signs (Past 12 Hours) Vital Signs Temp Pulse Resp BP Pulse Ox O2 Del Method O2 Flow Rate 05/01/22 12:18 37.1 C 75 24 116/72 94 High Flow Nasal Cannula 30 05/01/22 11:18 63 18 94 High Flow Nasal Cannula 30 05/01/22 08:32 37.1 C 85 18 131/65 95 High Flow Nasal Cannula 30 05/01/22 08:28 78 18 132/67 93 High Flow Nasal Cannula 30 05/01/22 07:49 90 20 95 High Flow Nasal Cannula 35 05/01/22 03:05 70 18 90 High Flow Nasal Cannula 30 05/01/22 03:11 36.6 C 84 22 137/67 96 High Flow Nasal Cannula 35 FiO2 05/01/22 12:18 75 05/01/22 11:18 75 05/01/22 08:32 75 05/01/22 08:28 75 05/01/22 07:49 80 05/01/22 03:05 90 05/01/22 03:11 90 Laboratory Results Laboratory Results - last 24 hr 04/30/22 04/30/22 04/30/22 15:47 20:21 21:59 WBC RBC Hgb Hct MCV MCH MCHC RDW Std Deviation RDW Coeff of Vanita Plt Count MPV Immature Gran % (Auto) Neut % (Auto) Lymph % (Auto) [place] % (Auto) Eos % (Auto) Baso % (Auto) Neut # (Auto) Lymph # (Auto) [place] # (Auto) Eos # (Auto) Baso # (Auto) Immature Gran # (Auto) Absolute Nucleated RBC Nucleated RBC % (auto) Polychromasia Anisocytosis Microcytosis Target Cells Acanthocytes (Spur) ABG pH 7.40 ABG pCO2 32 L ABG pO2 73 L ABG HCO3 20 ABG O2 Saturation 97.4 H ABG Base Excess -4.0 Jose Test POS Oxygen Given FiO2 30% Sodium Potassium Chloride Carbon Dioxide Anion Gap BUN Creatinine Est Cr Clr Drug Dosing Est GFR ( Amer) Est GFR (Non-Af Amer) BUN/Creatinine Ratio Glucose POC Glucose 175 H 284 H Calcium Phosphorus Magnesium B-Natriuretic Peptide 05/01/22 05/01/22 05/01/22 05:41 05:41 05:41 WBC 18.53 H RBC 4.00 Hgb 8.7 L Hct 27.3 L MCV 68.3 L MCH 21.8 L MCHC 31.9 L RDW Std Deviation 55.2 H RDW Coeff of Vanita 23.2 H Plt Count 219 MPV 11.1 Immature Gran % (Auto) 1.0 Neut % (Auto) 78.2 Lymph % (Auto) 8.6 [place] % (Auto) 10.0 Eos % (Auto) 1.8 Baso % (Auto) 0.4 Neut # (Auto) 14.50 H Lymph # (Auto) 1.59 [place] # (Auto) 1.85 H Eos # (Auto) 0.33 Baso # (Auto) 0.08 Immature Gran # (Auto) 0.18 H Absolute Nucleated RBC 0.08 H Nucleated RBC % (auto) 0.4 Polychromasia 1+ Anisocytosis Present Microcytosis Present Target Cells 1+ Acanthocytes (Spur) 1+ ABG pH ABG pCO2 ABG pO2 ABG HCO3 ABG O2 Saturation ABG Base Excess Jose Test Oxygen Given Sodium 131 L Potassium 3.9 Chloride 101 Carbon Dioxide 22 Anion Gap 8 BUN 32 H Creatinine 1.01 Est Cr Clr Drug Dosing 46.0 Est GFR ( Amer) 60.5 Est GFR (Non-Af Amer) 52.2 BUN/Creatinine Ratio 31.7 H Glucose 187 H POC Glucose Calcium 7.2 L Phosphorus 2.1 L Magnesium 1.9 B-Natriuretic Peptide 416 H 05/01/22 05/01/22 07:34 11:01 WBC RBC Hgb Hct MCV MCH MCHC RDW Std Deviation RDW Coeff of Vanita Plt Count MPV Immature Gran % (Auto) Neut % (Auto) Lymph % (Auto) [place] % (Auto) Eos % (Auto) Baso % (Auto) Neut # (Auto) Lymph # (Auto) [place] # (Auto) Eos # (Auto) Baso # (Auto) Immature Gran # (Auto) Absolute Nucleated RBC Nucleated RBC % (auto) Polychromasia Anisocytosis Microcytosis Target Cells Acanthocytes (Spur) ABG pH ABG pCO2 ABG pO2 ABG HCO3 ABG O2 Saturation ABG Base Excess Jose Test Oxygen Given Sodium Potassium Chloride Carbon Dioxide Anion Gap BUN Creatinine Est Cr Clr Drug Dosing Est GFR ( Amer) Est GFR (Non-Af Amer) BUN/Creatinine Ratio Glucose POC Glucose 204 H 244 H Calcium Phosphorus Magnesium B-Natriuretic Peptide Medications Administered Current Inpatient Medications Acetaminophen (Acetaminophen 325 Mg Tab) 650 mg PO Q4H PRN PRN Reason: Pain or Fever Stop: 05/28/22 08:59 Amlodipine Besylate (Amlodipine Besylate 5 Mg Tab) 5 mg PO QAM [facility] Stop: 05/28/22 08:59 Last Admin: 04/28/22 08:09 Dose: 5 mg Aspirin (Aspirin 81 Mg Ectab) 81 mg PO DAILY [facility] Stop: 05/28/22 08:59 Last Admin: 05/01/22 08:17 Dose: 81 mg Cinacalcet (Cinacalcet Hcl 30 Mg Tab) 30 mg PO DAILY [facility]IREE Stop: 05/28/22 08:59 Last Admin: 05/01/22 08:18 Dose: 30 mg Clopidogrel Bisulfate (Clopidogrel Bisulfate 75 Mg Tab) 75 mg PO QAM [facility] Stop: 05/28/22 08:59 Last Admin: 05/01/22 08:15 Dose: 75 mg Dextrose (Dextrose 50% 50 Ml Syringe) 25 - 50 ml IV UD PRN; Protocol PRN Reason: Hypoglycemia Protocol Stop: 05/27/22 19:03 Furosemide (Furosemide 40 Mg/4 Ml Vial) 80 mg IV BID17 [facility] Stop: 05/31/22 16:59 Glucagon (Glucagon For Inj 1 Mg Vial) 1 mg SQ UD PRN; Protocol PRN Reason: Hypoglycemia Protocol Stop: 05/27/22 19:03 Glucose (Glucose 40% Gel 15 Gm Tube) 15 - 30 gm PO UD PRN; Protocol PRN Reason: Hypoglycemia Protocol Stop: 05/27/22 19:03 Glucose (Glucose 10 Tab/Tube) 4 - 8 tab PO UD PRN; Protocol PRN Reason: Hypoglycemia Treatment Stop: 05/27/22 19:03 Heparin Sodium (Porcine) (Heparin Sod 5,000 Unit/0.5 Ml Vial) 5,000 units SQ Q12 [facility] Stop: 05/28/22 20:59 Last Admin: 05/01/22 08:16 Dose: 5,000 units Pantoprazole Sodium 40 mg/ (Syringe) 10 mls @ 5 mls/min IV BID [facility] Stop: 05/29/22 11:59 Last Admin: 05/01/22 08:15 Dose: 5 mls/min Metronidazole (Flagyl) 500 mg in 100 mls @ 100 mls/hr IV Q8H [facility] Stop: 05/09/22 15:59 Last Infusion: 05/01/22 10:58 Dose: Infused Cefepime HCl 2,000 mg/ Syringe 20 mls @ 5 mls/min IV Q12H [facility]; Protocol Stop: 05/09/22 16:14 Last Admin: 05/01/22 03:05 Dose: 5 mls/min Insulin Aspart (Insulin Aspart Per Unit) 0 units SC ACHS [facility] Stop: 05/27/22 20:59 Last Admin: 05/01/22 12:06 Dose: 8 units Insulin Glargine (Lantus Per Unit Charge) 0 - 20 units SQ BID [facility] Stop: 05/27/22 20:59 Last Admin: 05/01/22 08:14 Dose: 20 units Losartan Potassium (Losartan Potassium 25 Mg Tab) 25 mg PO DAILY [facility] Stop: 05/28/22 08:59 Last Admin: 04/28/22 08:09 Dose: 25 mg Magnesium Oxide (Magnesium Oxide 400 Mg Tab) 400 mg PO DAILY [facility] Stop: 05/28/22 08:59 Last Admin: 04/30/22 07:48 Dose: 400 mg Metoprolol Tartrate (Metoprolol Tartrate 25 Mg Tab) 12.5 mg PO BID [facility] Stop: 05/27/22 20:59 Last Admin: 05/01/22 08:29 Dose: 12.5 mg Miscellaneous (Carbohydrates For Hypoglycemia ) 15 - 30 gm PO UD PRN PRN Reason: Hypoglycemia Protocol Stop: 05/27/22 19:03 Oxycodone HCl (Oxycodone Hcl Ir 5 Mg Tab (Immediate Release)) 5 mg PO Q4H PRN PRN Reason: Pain Stop: 05/14/22 23:48 Last Admin: 05/01/22 05:11 Dose: 5 mg Pantoprazole Sodium (Pantoprazole 40 Mg Tab) 40 mg PO DAILY [facility] Stop: 05/28/22 08:59 Last Admin: 04/29/22 07:46 Dose: 40 mg Raspberry (Raspberry Syrup 5 Ml Udp) 5 ml PO Q6 [facility] Stop: 05/09/22 17:59 Last Admin: 05/01/22 12:09 Dose: 5 ml Simvastatin (Simvastatin 10 Mg Tab) 10 mg PO DAILY [facility] Stop: 05/28/22 08:59 Last Admin: 04/30/22 07:48 Dose: 10 mg Vancomycin HCl (Vancomycin Hcl 250 Mg/5 Ml Soln) 250 mg PO Q6 [facility] Stop: 05/09/22 17:59 Last Admin: 05/01/22 12:09 Dose: 250 mg (1) Sepsis Sepsis acute organ dysfunction status: without acute organ dysfunction Sepsis type: sepsis due to unspecified organism Qualified Code(s): A41.9 - Sepsis, unspecified organism (2) Vomiting Nausea presence: with nausea Vomiting type: unspecified Qualified Code(s): R11.2 - Nausea with vomiting, unspecified
[2022-05-01] MEDS: FUROSEMIDE 40 MG/4 ML VIAL IV SCH (15:59)
[2022-05-02] MEDS: VANCOMYCIN HCL 250 MG/5 ML SOLN PO SCH (05:05)
[2022-05-02] MEDS: CEFEPIME 2,000 MG in SYRINGE 0 ML IV SCH ×3 (05:06→21:35)
[2022-05-02] MEDS: RASPBERRY SYRUP 5 ML UDP PO SCH (05:06)
[2022-05-02 05:30] LABS: Adenovirus F 40/41 PCR Not Detected (NotDetected); Astrovirus PCR Not Detected (NotDetected); Campylobacter PCR Not Detected (NotDetected); Cryptosporidium PCR Not Detected (NotDetected); Cyclospora cayetanensis PCR Not Detected (NotDetected); Entamoeba histolytica PCR Not Detected (NotDetected); Enteroaggregative E.coli(EAEC) Not Detected (NotDetected); Enteropathogenic E.coli (EPEC) Not Detected (NotDetected); Enterotoxigenic E.coli (ETEC) Not Detected (NotDetected); Giardia lamblia PCR Not Detected (NotDetected); Norovirus GI/GII PCR Not Detected (NotDetected); Plesiomonas shigelloides PCR Not Detected (NotDetected); Rotavirus A PCR Not Detected (NotDetected); Salmonella PCR Not Detected (NotDetected); Sapovirus PCR Not Detected (NotDetected); Shiga-like Toxin E.coli (STEC) Not Detected (NotDetected); Shigella/Enteroinvasive E.coli Not Detected (NotDetected); Vibrio cholerae PCR Not Detected (NotDetected); Vibrio species PCR Not Detected (NotDetected); Yersinia enterocolitica PCR Not Detected (NotDetected)
[2022-05-02 07:24] LABS: Acanthocytes 2+; Anisocytosis Present; Basophils % (auto) 0.6 %; Echinocytes 2+; Eosinophils # (auto) 0.56 K/uL (0-0.50); Eosinophils % (auto) 3.6 %; Hematocrit (blood only) 34.5 % (34.1-44.9); Hemoglobin 10.9 g/dl (12.0-16.0); Immature Granulocytes # (auto) 0.22 K/uL (0.00-0.02); Immature Granulocytes % (auto) 1.4 %; Lymphocytes % (auto) 13.5 %; Mean Corpuscular Hemoglobin 21.5 pg (25.0-34.0); Mean Corpuscular Hgb Conc 31.6 g/dL (32.0-36.0); Monocytes % (auto) 11.6 %; Neutrophils # (auto) 10.76 K/uL (1.4-6.5); Neutrophils % (auto) 69.3 %; Nucleated RBC # (auto) 0.08 K/uL (0-0); Nucleated RBC % (auto) 0.5 %; Platelet Count 266 K/uL (130-400); Polychromasia 1+; RDW Coefficient of Variation 24.9 % (11.5-14.5); RDW Standard Deviation 57.2 fL (36.4-46.3); Red Blood Count 5.07 M/uL (3.93-5.22); Target Cells 1+; White Blood Count 15.54 K/ul (4.8-10.8)
[2022-05-02 07:26] LABS: BUN Creatinine Ratio 39.2 (10-20); Calcium 7.6 mg/dl (8.5-10.1); Creatinine Clr Calc Pharmacy 61.7 ml/min; Est GFR (African American) 88.1 ml/min; Magnesium 1.6 mg/dl (1.7-2.4); Potassium 3.7 mmol/L (3.5-5.1)
[2022-05-02] MEDS ORDERED: MAGNESIUM SULFATE / D5W 1 GM/100 ML BAG IV ONE (08:30)
[2022-05-02] MEDS: INSULIN ASPART PER UNIT SC SCH ×4 (08:34→21:35)
[2022-05-02] MEDS: LANTUS PER UNIT CHARGE SQ SCH ×2 (08:34→21:34)
[2022-05-02] MEDS: metroNIDAZOLE 500 MG/100 ML BAG IV SCH ×2 (08:35→15:28)
[2022-05-02] MEDS: ASPIRIN 81 MG ECTAB PO SCH (08:36)
[2022-05-02] MEDS: FUROSEMIDE 40 MG/4 ML VIAL IV SCH ×2 (08:36→18:34)
[2022-05-02] MEDS: CINACALCET HCL 30 MG TAB PO SCH (08:36)
[2022-05-02] MEDS: PANTOprazole 40 MG in SYRINGE 0 ML IV SCH (08:37)
[2022-05-02] MEDS: METOPROLOL TARTRATE 25 MG TAB PO SCH ×2 (08:37→21:35)
[2022-05-02] MEDS: HEPARIN SOD 5,000 UNIT/0.5 ML VIAL SQ SCH ×2 (08:38→21:34)
[2022-05-02] MEDS: CLOPIDOGREL BISULFATE 75 MG TAB PO SCH (08:38)
--- NOTE | 2022-05-02 10:40 | XRay Report ---
KUB HISTORY: f/u colon dilatation COMPARISON: KUB 05/01/2022. FINDINGS: Prior cholecystectomy. Borderline distended gas-filled colon measuring up to 6 cm. This is similar to the prior study. Nondilated gas-filled loops of small bowel again noted. Scattered through out gallstone seen within the right side of the abdomen. Trace bilateral pleural effusions. No renal calculi. No ureteral calculi. No pneumoperitoneum or pneumatosis. IMPRESSION: No significant change in the borderline colonic distention. ACT 112: Negative or not required by law. Electronically signed by: Pee Parker M.D. 05/02/2022 10:39 AM
--- NOTE | 2022-05-02 10:57 | Surgery Progress Note ---
Date of Service May 02, 2022 Assessment & Plan (1) Ileocolitis: Plan: Patient without significant nausea or vomiting May have a mild ileus but KUB yesterday was much improved over Monday Clinically she looks somewhat better Surgical intervention only if situation becomes life-threatening/severe colonic distention Patient would have a significantly complicated postoperative course Admission and Anticipated Discharge Date Admission Date: April 27, 2022 Subjective Patient is sitting in her chair in her room awake and alert Seems to be breathing much better on nasal cannula Says her abdominal pain is improved but not normal She actually looks much better than several days ago Her white count has come down to 15,000 Vital signs are stable, afebrile Review of Systems Review of Systems: All systems reviewed & are unremarkable except as noted in HPI & below Physical Exam Physical Exam: Seems to be breathing much better Her abdomen has some bowel sounds Constitutional: well developed and well nourished; no acute distress Eyes: + anicteric sclerae Respiratory: no respiratory distress Cardiovascular: Rate/Rhythm: regular rate Gastrointestinal (Abdomen): Less distended Musculoskeletal: Gait: normal gait Skin: no rashes, warm and dry Neurologic: awake Psychiatric: Orientation: alert Results & Data ([facility]) Vital Signs (Past 12 Hours) Vital Signs Temp Pulse Pulse Resp BP BP Pulse Ox 05/02/22 07:00 36.9 C 91 H 22 152/63 H 95 05/02/22 07:54 05/02/22 04:13 88 05/02/22 02:18 36.7 C 86 16 138/68 98 O2 Del Method O2 Flow Rate FiO2 05/02/22 07:00 High Flow Nasal Cannula 8 05/02/22 07:54 High Flow Nasal Cannula 8 05/02/22 04:13 05/02/22 02:18 High Flow Nasal Cannula 5 55 PG Care Time/CCT Total # of Minutes Spent Total Time Spent with Patient: Total time spent is greater than 50% in coordination of care (as documented) at patient's floor/unit and/or counseling patient: Coding Level of Care Code 95146 Inpt Consult Level 3 Diagnoses Ileocolitis K52.9
--- NOTE | 2022-05-02 11:06 | Gastroenterology Progress Note ---
Date of Service May 02, 2022 Assessment & Plan (1) Colon distention: (2) Ileocolitis: Plan Continue antibiotics. May advance diet to full liquids. Will plan for OP colonoscopy in Jun here at [facility] - our office will call her to arrange. Admission and Anticipated Discharge Date Admission Date: April 27, 2022 Supervising Physician Co-Signing Physician Notes I have seen and discussed the management with MELISSA Adamson. PE as noted above - no confusion noted History of cirrhosis, admitted with abd pain - ct with findings of right sided kidney stones and ac thickening. Labs with wbc count that is downtrending on abx(flagyl/cefipime). Belly pain improving slightly. No prior colonoscopy in [facility] on review. Continue with abx for presumed right sided colitis, hydration for kidney stones- both may be source for her pain. Planning for outpatient c-scope in [place] 8 weeks. Subjective 81 yr old female admitted on 04/27 for abdominal pain and CT w TI and ascending colon inflammation. Also w rt kidney stones and cirrhosis Abd pain persists but is improved. Tolerating a clear liquid diet. No prior colonoscopies. On 6L O2, has hx of pneumonia earlier this fall, prior CVA. Passing 1-3 loose brown BMs/day. C-diff and culture (-). Review of Systems Review of Systems: ROS: Gen: +general weakness but not recently worsened. No fevers, weight loss Eyes: No eye redness, or pain, no recent vision changes Resp: No SOB, no cough Cardio: No palpitations/irregular beats, no chest pain GI: As per HPI, otherwise (-). : Denies pain on urination Skin: No jaundice, itching or new rashes Physical Exam Constitutional: WD/WN, vitals as above Eyes: PERRL, conjunctivae normal, anicteric sclerae ENMT: external ear and nose normal, oropharynx normal Neck: trachea midline, no thyromegaly Respiratory: normal respiratory effort, lungs clear to auscultation Cardiovascular: RRR, no murmur, no edema Gastrointestinal (Abdomen): Inspection/Auscultation: normal bowel sounds; abdomen not distended Percussion/Palpation: + abdomen tender (moderately tender in the RLQ) and abdomen soft Skin: no rashes, warm and dry Neurologic: PERRL, EOMI, accommodation nl, no face palsy, no dysarthria Psychiatric: A+Ox3, euthymic affect Lymphatic: no cervical or axillary lymphadenopathy Results & Data ([facility]) Vital Signs (Past 12 Hours) Vital Signs Temp Pulse Pulse Resp BP BP Pulse Ox 05/02/22 07:00 36.9 C 91 H 22 152/63 H 95 05/02/22 07:54 05/02/22 04:13 88 05/02/22 02:18 36.7 C 86 16 138/68 98 O2 Del Method O2 Flow Rate FiO2 05/02/22 07:00 High Flow Nasal Cannula 8 05/02/22 07:54 High Flow Nasal Cannula 8 05/02/22 04:13 05/02/22 02:18 High Flow Nasal Cannula 5 55 Laboratory Results wbc 15 (DOWN FROM ), Hb 10 post 1 unit RBCs, Hct 34, Pts 266, Na 133, K 3.7, Cl 100, CO2 24, BUN 29, Cr 0.74, glucose 204 Diagnostic Findings CTAP w IV contrast on 05/02/22: 1. Mild circumferential thickening within the ascending colon with mild pericolonic fat stranding. There is also mild circumferential thickening of the distal terminal ileum near the ileocecal valve. This is consistent with a nonspecific ileocolitis and favors an infectious or inflammatory process. A portal colopathy could also a similar appearance but is considered less likely. 2. Cirrhotic liver. 3. There are 2 irregular nodule within the left lower lobe with the largest measuring 8 mm. Follow-up chest CT in 6 months is recommended to ensure stability/resolution. 4. Right-sided nephrolithiasis. No ureteral stones. No hydronephrosis. 5. A 7.2 cm right ovarian cyst. This is considered to be pathologic in a postmenopausal female. Follow-up nonemergent gynecologic consultation recommended. 6. Additional findings as described above.
--- NOTE | 2022-05-02 11:20 | Cardiology Progress Note ---
Date of Service May 02, 2022 Assessment & Plan (1) Abnormal CT scan: (2) Abdominal pain: (3) Sepsis: (4) Ileocolitis: (5) Elevated troponin I level: (6) Abdominal pain, acute, right lower quadrant: (7) Abnormal EKG: (8) Vomiting: (9) Coronary atherosclerosis of [place] coronary vessel: (10) Mitral stenosis: (11) Chronic heart failure with preserved ejection fraction (HFpEF): Plan The patient's fluid balance was negative past 24 hours. Clinically she looks improved and is able to sit in a chair. I would continue her current diuretic regimen through today. Admission and Anticipated Discharge Date Admission Date: April 27, 2022 Subjective The patient is alert and sitting in the chair. She seems more comfortable today. Review of Systems Review of Systems: Review of Systems: See HPI for pertinent positives. All other 10 point review of systems are negative. Physical Exam Physical Exam: General: no acute distress and stated age Head: normocephalic, no masses, lesions, tenderness or abnormalities Eyes: conjunctiva are pink and non-injected, sclera clear Neck: supple, no adenopathy, no bruits, normal jugular venous pulse, no hepatojugular reflux Chest: normal shape and normal respiratory effort Lungs: clear to auscultation and percussion Cardiac Exam: - regular rate & rhythm, no murmurs gallops or rubs - normal S1, normal S2 Pulses: 2(+) throughout Abdomen: abdomen soft, non-tender, no abnormal masses and no hepatosplenomegaly Musculoskeletal: no gait disturbance, no joint inflammation, no deforming arthritis Extremities: no edema and no cyanosis Neuro: grossly normal exam Results & Data ([facility]) Vital Signs (Past 12 Hours) Vital Signs Temp Pulse Pulse Resp BP BP Pulse Ox 05/02/22 07:00 36.9 C 91 H 22 152/63 H 95 05/02/22 07:54 05/02/22 04:13 88 05/02/22 02:18 36.7 C 86 16 138/68 98 O2 Del Method O2 Flow Rate FiO2 05/02/22 07:00 High Flow Nasal Cannula 8 05/02/22 07:54 High Flow Nasal Cannula 8 05/02/22 04:13 05/02/22 02:18 High Flow Nasal Cannula 5 55 Laboratory Results Laboratory Results - last 24 hr 05/01/22 05/01/2205/01/22 07:34 16:41 20:18 WBC RBC Hgb Hct MCV MCH MCHC RDW Std Deviation RDW Coeff of Vanita Plt Count Immature Gran % (Auto) Neut % (Auto) Lymph % (Auto) [place] % (Auto) Eos % (Auto) Baso % (Auto) Neut # (Auto) Lymph # (Auto) [place] # (Auto) Eos # (Auto) Baso # (Auto) Immature Gran # (Auto) Absolute Nucleated RBC Nucleated RBC % (auto) Polychromasia Anisocytosis Target Cells Echinocytes Acanthocytes (Spur) Sodium Potassium Chloride Carbon Dioxide Anion Gap BUN Creatinine Est Cr Clr Drug Dosing Est GFR ( Amer) Est GFR (Non-Af Amer) BUN/Creatinine Ratio Glucose POC Glucose 204 H 193 H 324 H* Calcium Magnesium Stl C. cayetanensis PCR Stool Rotavirus A PCR Stl Adenov F PCR Stool Astrovirus (PCR) Stool Campylobacter PCR Stl C. diff Tox B Gene Stool Cryptosporidium PCR Stl E.coli Shiga Tox PCR Stl Enterotoxigenic E PCR Stool EPEC (PCR) Stool EAEC (PCR) Stl E. histolytica PCR Stool Giardia Lamblia PCR Stool Salmonella PCR Stool Sapovirus (PCR) Stl P. shigelloides PCR Stl Shigella/EIEC PCR St Y.enterocolitica PCR Stool Vibrio (PCR) Stl Vibrio cholerae PCR Stl Norovirus GI/GII PCR 05/01/22 05/02/22 05/02/22 20:19 04:01 04:01 WBC RBC Hgb Hct MCV MCH MCHC RDW Std Deviation RDW Coeff of Vanita Plt Count Immature Gran % (Auto) Neut % (Auto) Lymph % (Auto) [place] % (Auto) Eos % (Auto) Baso % (Auto) Neut # (Auto) Lymph # (Auto) [place] # (Auto) Eos # (Auto) Baso # (Auto) Immature Gran # (Auto) Absolute Nucleated RBC Nucleated RBC % (auto) Polychromasia Anisocytosis Target Cells Echinocytes Acanthocytes (Spur) Sodium Potassium Chloride Carbon Dioxide Anion Gap BUN Creatinine Est Cr Clr Drug Dosing Est GFR ( Amer) Est GFR (Non-Af Amer) BUN/Creatinine Ratio Glucose POC Glucose 305 H* Calcium Magnesium Stl C. cayetanensis PCR Not Detected Stool Rotavirus A PCR Not Detected Stl Adenov F PCR Not Detected Stool Astrovirus (PCR) Not Detected Stool Campylobacter PCR Not Detected Stl C. diff Tox B Gene Negative Cdiff Gene Stool Cryptosporidium PCR Not Detected Stl E.coli Shiga Tox PCR Not Detected Stl Enterotoxigenic E PCR Not Detected Stool EPEC (PCR) Not Detected Stool EAEC (PCR) Not Detected Stl E. histolytica PCR Not Detected Stool Giardia Lamblia PCR Not Detected Stool Salmonella PCR Not Detected Stool Sapovirus (PCR) Not Detected Stl P. shigelloides PCR Not Detected Stl Shigella/EIEC PCR Not Detected St Y.enterocolitica PCR Not Detected Stool Vibrio (PCR) Not Detected Stl Vibrio cholerae PCR Not Detected Stl Norovirus GI/GII PCR Not Detected 05/02/22 05/02/22 05/02/22 06:11 06:11 07:22 WBC 15.54 H RBC 5.07 Hgb 10.9 L Hct 34.5 MCV 68.0 L MCH 21.5 L MCHC 31.6 L RDW Std Deviation 57.2 H RDW Coeff of Vanita 24.9 H Plt Count 266 Immature Gran % (Auto) 1.4 Neut % (Auto) 69.3 Lymph % (Auto) 13.5 [place] % (Auto) 11.6 Eos % (Auto) 3.6 Baso % (Auto) 0.6 Neut # (Auto) 10.76 H Lymph # (Auto) 2.10 [place] # (Auto) 1.80 H Eos # (Auto) 0.56 H Baso # (Auto) 0.10 Immature Gran # (Auto) 0.22 H Absolute Nucleated RBC 0.08 H Nucleated RBC % (auto) 0.5 Polychromasia 1+ Anisocytosis Present Target Cells 1+ Echinocytes 2+ Acanthocytes (Spur) 2+ Sodium 133 L Potassium 3.7 Chloride 100 Carbon Dioxide 24 Anion Gap 9 BUN 29 H Creatinine 0.74 Est Cr Clr Drug Dosing 61.7 Est GFR ( Amer) 88.1 Est GFR (Non-Af Amer) 76.0 BUN/Creatinine Ratio 39.2 H Glucose 208 H POC Glucose 204 H Calcium 7.6 L Magnesium 1.6 L Stl C. cayetanensis PCR Stool Rotavirus A PCR Stl Adenov F PCR Stool Astrovirus (PCR) Stool Campylobacter PCR Stl C. diff Tox B Gene Stool Cryptosporidium PCR Stl E.coli Shiga Tox PCR Stl Enterotoxigenic E PCR Stool EPEC (PCR) Stool EAEC (PCR) Stl E. histolytica PCR Stool Giardia Lamblia PCR Stool Salmonella PCR Stool Sapovirus (PCR) Stl P. shigelloides PCR Stl Shigella/EIEC PCR St Y.enterocolitica PCR Stool Vibrio (PCR) Stl Vibrio cholerae PCR Stl Norovirus GI/GII PCR 05/02/22 11:13 WBC RBC Hgb Hct MCV MCH MCHC RDW Std Deviation RDW Coeff of Vanita Plt Count Immature Gran % (Auto) Neut % (Auto) Lymph % (Auto) [place] % (Auto) Eos % (Auto) Baso % (Auto) Neut # (Auto) Lymph # (Auto) [place] # (Auto) Eos # (Auto) Baso # (Auto) Immature Gran # (Auto) Absolute Nucleated RBC Nucleated RBC % (auto) Polychromasia Anisocytosis Target Cells Echinocytes Acanthocytes (Spur) Sodium Potassium Chloride Carbon Dioxide Anion Gap BUN Creatinine Est Cr Clr Drug Dosing Est GFR ( Amer) Est GFR (Non-Af Amer) BUN/Creatinine Ratio Glucose POC Glucose 252 H Calcium Magnesium Stl C. cayetanensis PCR Stool Rotavirus A PCR Stl Adenov F 40/41 PCR Stool Astrovirus (PCR) Stool Campylobacter PCR Stl C. diff Tox B Gene Stool Cryptosporidium PCR Stl E.coli Shiga Tox PCR Stl Enterotoxigenic E PCR Stool EPEC (PCR) Stool EAEC (PCR) Stl E. histolytica PCR Stool Giardia Lamblia PCR Stool Salmonella PCR Stool Sapovirus (PCR) Stl P. shigelloides PCR Stl Shigella/EIEC PCR St Y.enterocolitica PCR Stool Vibrio (PCR) Stl Vibrio cholerae PCR Stl Norovirus GI/GII PCR Medications Administered Current Inpatient Medications Acetaminophen (Acetaminophen 325 Mg Tab) 650 mg PO Q4H PRN PRN Reason: Pain or Fever Stop: 05/28/22 08:59 Amlodipine Besylate (Amlodipine Besylate 5 Mg Tab) 5 mg PO QAM [facility]IREE Stop: 05/28/22 08:59 Last Admin: 04/28/22 08:09 Dose: 5 mg Aspirin (Aspirin 81 Mg Ectab) 81 mg PO DAILY DESIREE Stop: 05/28/22 08:59 Last Admin: 05/02/22 08:36 Dose: 81 mg Cinacalcet (Cinacalcet Hcl 30 Mg Tab) 30 mg PO DAILY DESIREE Stop: 05/28/22 08:59 Last Admin: 05/02/22 08:36 Dose: 30 mg Clopidogrel Bisulfate (Clopidogrel Bisulfate 75 Mg Tab) 75 mg PO QAM [facility]IREE Stop: 05/28/22 08:59 Last Admin: 05/02/22 08:38 Dose: 75 mg Dextrose (Dextrose 50% 50 Ml Syringe) 25 - 50 ml IV UD PRN; Protocol PRN Reason: Hypoglycemia Protocol Stop: 05/27/22 19:03 Furosemide (Furosemide 40 Mg/4 Ml Vial) 80 mg IV BID17 [facility]IREE Stop: 05/31/22 16:59 Last Admin: 05/02/22 08:36 Dose: 80 mg Glucagon (Glucagon For Inj 1 Mg Vial) 1 mg SQ UD PRN; Protocol PRN Reason: Hypoglycemia Protocol Stop: 05/27/22 19:03 Glucose (Glucose 40% Gel 15 Gm Tube) 15 - 30 gm PO UD PRN; Protocol PRN Reason: Hypoglycemia Protocol Stop: 05/27/22 19:03 Glucose (Glucose 10 Tab/Tube) 4 - 8 tab PO UD PRN; Protocol PRN Reason: Hypoglycemia Treatment Stop: 05/27/22 19:03 Heparin Sodium (Porcine) (Heparin Sod 5,000 Unit/0.5 Ml Vial) 5,000 units SQ Q12 [facility]IREE Stop: 05/28/22 20:59 Last Admin: 05/02/22 08:38 Dose: 5,000 units Pantoprazole Sodium 40 mg/ (Syringe) 10 mls @ 5 mls/min IV BID DESIREE Stop: 05/29/22 11:59 Last Admin: 05/02/22 08:37 Dose: 5 mls/min Metronidazole (Flagyl) 500 mg in 100 mls @ 100 mls/hr IV Q8H [facility] Stop: 05/09/22 15:59 Last Infusion: 05/02/22 09:37 Dose: Infused Cefepime HCl 2,000 mg/ Syringe 20 mls @ 5 mls/min IV Q8 [facility]; Protocol Stop: 05/09/22 16:14 Insulin Aspart (Insulin Aspart Per Unit) 0 units SC ACHS [facility] Stop: 05/27/22 20:59 Last Admin: 05/02/22 08:34 Dose: 7 units Insulin Glargine (Lantus Per Unit Charge) 0 - 20 units SQ BID [facility]IREE Stop: 05/27/22 20:59 Last Admin: 05/02/22 08:34 Dose: 20 units Losartan Potassium (Losartan Potassium 25 Mg Tab) 25 mg PO DAILY DESIREE Stop: 05/28/22 08:59 Last Admin: 04/28/22 08:09 Dose: 25 mg Magnesium Oxide (Magnesium Oxide 400 Mg Tab) 400 mg PO DAILY DESIREE Stop: 05/28/22 08:59 Last Admin: 04/30/22 07:48 Dose: 400 mg Metoprolol Tartrate (Metoprolol Tartrate 25 Mg Tab) 12.5 mg PO BID DESIREE Stop: 05/27/22 20:59 Last Admin: 05/02/22 08:37 Dose: 12.5 mg Miscellaneous (Carbohydrates For Hypoglycemia ) 15 - 30 gm PO UD PRN PRN Reason: Hypoglycemia Protocol Stop: 05/27/22 19:03 Oxycodone HCl (Oxycodone Hcl Ir 5 Mg Tab (Immediate Release)) 5 mg PO Q4H PRN PRN Reason: Pain Stop: 05/14/22 23:48 Last Admin: 05/01/22 05:11 Dose: 5 mg Pantoprazole Sodium (Pantoprazole 40 Mg Tab) 40 mg PO DAILY DESIREE Stop: 05/28/22 08:59 Last Admin: 04/29/22 07:46 Dose: 40 mg Raspberry (Raspberry Syrup 5 Ml Udp) 5 ml PO Q6 [facility] Stop: 05/09/22 17:59 Last Admin: 05/02/22 05:06 Dose: 5 ml Simvastatin (Simvastatin 10 Mg Tab) 10 mg PO DAILY DESIREE Stop: 05/28/22 08:59 Last Admin: 04/30/22 07:48 Dose: 10 mg Vancomycin HCl (Vancomycin Hcl 250 Mg/5 Ml Soln) 250 mg PO Q6 [facility] Stop: 05/09/22 17:59 Last Admin: 05/02/22 05:05 Dose: 250 mg (1) Sepsis Sepsis acute organ dysfunction status: without acute organ dysfunction Sepsis type: sepsis due to unspecified organism Qualified Code(s): A41.9 - Sepsis, unspecified organism (2) Vomiting Nausea presence: with nausea Vomiting type: unspecified Qualified Code(s): R11.2 - Nausea with vomiting, unspecified
--- NOTE | 2022-05-02 12:12 | Hospitalist Progress Note ---
Date of Service May 02, 2022 Assessment & Plan (1) Acute respiratory failure: Plan: Acute respiratory 2/2 fluid overload. She had an +8L fluid balance since admission. Over the last two days she received more aggressive IV diuresis and metolazone. Today she is 3L net down overnight and has been able to come off hi flow oxygen. Cont diuresis efforts. Appreciate nephrology and cardiology assistance with this effort. Cont Kendall in place. Strict I/Os. Cont PCU monitoring. Daily standing weights. Ambulate with assist as tolerated. (2) Sepsis: Plan: resuscitated on admission aggressively given her initial clinical picture and elevated lactate which has now resolved. She continues on Day 5 of broad spectrum abx including Cefepime, Flagyl and vanc PO (for empiric treatment of possible c-diff/toxic megacolon). Vanc PO stopped with negative stool culture this am. (3) Ileocolitis: Plan: Uncertain cause, stool studies obtained this am are negative. She also has the appearance of an ileus on KUB which has improved with BM x 2 finally occurring overnight. She is tolerating PO. Will cont to advance diet today to full liquids. Ambulate as tolerated. Sop vanc PO with negative c-diff. Outpatient GI follow-up for colonoscopy. (4) Colon distention: Plan: Abx as above. Ambulate as tolerated. Cont supportive care efforts. Diet to full liquids. (5) Demand ischemia: (6) Abnormal EKG: Plan: Admitting troponin level 395, minimally up trended, admitting EKG with sinus tachycardia and ST depression in lateral leads. 04/27 echo: EF greater than 70%, hyperdynamic LV systolic function, grade 1 diastolic dysfunction. No segmental left ventricular wall motion abnormalities. Severe mitral annular calcification noted. Likely demand ischemia secondary to acute sepsis. No further cardiology workup recommended at this time. (7) Anemia: Plan: Baseline hemoglobin around 8.7. She was given a blood transfusion on the agustina of 04/29 with a small amount of lasix (20mg IV in the morning and in the evening with the blood) given on that day. Hb is improved. (8) Type 2 diabetes mellitus without complications: Plan: Glucose at goal, cont basal/bolus insulin. A1C at goal. (9) Ovarian cyst: Plan: nonurgent gynecology consultation for further investigation as outpatient. (10) Pulmonary nodule: Plan: repeat future CT scan in 6 months for stability. (11) Hyperparathyroidism: Plan: Takes cinacalcet. Follows with endocrinology at [facility]. (12) HTN (hypertension): Plan: low normal BP, hold losartan and amlodipine DVT proph: heparin DNR/DNI Dispo-cont PCU monitoring. [facility] Hospitalist Admission and Anticipated Discharge Date Admission Date: April 27, 2022 Subjective 81 yo F admitted for severe sepsis 2/2 ileocolitis of uncertain origin. Two BMs overnight She is now off high flow oxygen supplementation and is sitting up in the bedside chair eating lunch Reports she feels lousy and cannot elaborate When probed, states that her abdomen feels worse today She has been afebrile overnight Appears brighter very vague responses to questions and "I don't know" are most responses states "I wish I could tell you how I feel but I just don't know" Review of Systems Review of Systems: All systems were reviewed and negative except as indicated on subjective above. Physical Exam Physical Exam: CONSTITUTIONAL: obese, vitals as above, generally, appears ill, 6LPM oxygen in place (no longer requiring hi flow) EYES: normal conjunctivae, no scleral icterus ENT: external ear and nose normal, MMM, nasal irritation from the canula NECK: trachea midline, RESPIRATORY: crackles at bases bilaterally with improvement, no wheezing heard, no increased respiratory effort. CARDIOVASCULAR: regular rate and rhythm, S1 and 2 heard without murmurs, gallops or rubs, no JVD, no peripheral edema CHEST: inspection of chest was normal GASTROINTESTINAL: soft, TTP generally, limited as sitting up, ND. MUSCULOSKELETAL: generalized weakness, head is normocephalic and atraumatic, SKIN: warm and dry NEUROLOGIC: CN 2-12 grossly intact, no sensory deficit, normal cognition, normal speech PSYCHIATRIC: alert cooperative and oriented to person, place and time. Results & Data Results & Data ([facility]) Vital Signs (Past 12 Hours) Vital Signs Temp Pulse Pulse Resp BP BP Pulse Ox 05/02/22 07:00 36.9 C 91 H 22 152/63 H 95 05/02/22 07:54 05/02/22 04:13 88 05/02/22 02:18 36.7 C 86 16 138/68 98 O2 Del Method O2 Flow Rate FiO2 05/02/22 07:00 High Flow Nasal Cannula 8 05/02/22 07:54 High Flow Nasal Cannula 8 05/02/22 04:13 05/02/22 02:18 High Flow Nasal Cannula 5 55 Laboratory Results Short CBC 05/02/22 Range/Units 06:11 WBC 15.54 H (4.8-10.8) K/ul Hgb 10.9 L (12.0-16.0) g/dl Hct 34.5 (34.1-44.9) % Plt Count 266 (130-400) K/uL BMP 05/02/22 06:11 Sodium 133 L Potassium 3.7 Chloride 100 Carbon Dioxide 24 BUN 29 H Creatinine 0.74 Glucose 208 H Calcium 7.6 L Diagnostic Findings KUB X-Ray 05/02/22 07:00 KUB HISTORY: f/u colon dilatation COMPARISON: KUB 05/01/2022. FINDINGS: Prior cholecystectomy. Borderline distended gas-filled colon measuring up to 6 cm. This is similar to the prior study. Nondilated gas-filled loops of small bowel again noted. Scattered throughout gallstone seen within the right side of the abdomen. Trace bilateral pleural effusions. No renal calculi. No ureteral calculi. No pneumoperitoneum or pneumatosis. IMPRESSION: No significant change in the borderline colonic distention. ACT 112: Negative or not required by law. Electronically signed by: Pee Parker M.D. 05/02/2022 10:39 AM Medications Administered Current Inpatient Medications Acetaminophen (Acetaminophen 500 Mg Tab) 1,000 mg PO Q8H [facility] Stop: 06/01/22 11:59 Amlodipine Besylate (Amlodipine Besylate 5 Mg Tab) 5 mg PO QAM DESIREE Stop: 05/28/22 08:59 Last Admin: 04/28/22 08:09 Dose: 5 mg Aspirin (Aspirin 81 Mg Ectab) 81 mg PO DAILY DESIREE Stop: 05/28/22 08:59 Last Admin: 05/02/22 08:36 Dose: 81 mg Cinacalcet (Cinacalcet Hcl 30 Mg Tab) 30 mg PO DAILY DESIREE Stop: 05/28/22 08:59 Last Admin: 05/02/22 08:36 Dose: 30 mg Clopidogrel Bisulfate (Clopidogrel Bisulfate 75 Mg Tab) 75 mg PO QAM [facility] Stop: 05/28/22 08:59 Last Admin: 12/19/22 08:38 Dose: 75 mg Dextrose (Dextrose 50% 50 Ml Syringe) 25 - 50 ml IV UD PRN; Protocol PRN Reason: Hypoglycemia Protocol Stop: 05/27/22 19:03 Furosemide (Furosemide 40 Mg/4 Ml Vial) 80 mg IV BID17 [facility]IREE Stop: 05/31/22 16:59 Last Admin: 05/02/22 08:36 Dose: 80 mg Glucagon (Glucagon For Inj 1 Mg Vial) 1 mg SQ UD PRN; Protocol PRN Reason: Hypoglycemia Protocol Stop: 05/27/22 19:03 Glucose (Glucose 40% Gel 15 Gm Tube) 15 - 30 gm PO UD PRN; Protocol PRN Reason: Hypoglycemia Protocol Stop: 05/27/22 19:03 Glucose (Glucose 10 Tab/Tube) 4 - 8 tab PO UD PRN; Protocol PRN Reason: Hypoglycemia Treatment Stop: 05/27/22 19:03 Heparin Sodium (Porcine) (Heparin Sod 5,000 Unit/0.5 Ml Vial) 5,000 units SQ Q12 [facility] Stop: 05/28/22 20:59 Last Admin: 05/02/22 08:38 Dose: 5,000 units Metronidazole (Flagyl) 500 mg in 100 mls @ 100 mls/hr IV Q8H [facility] Stop: 05/09/22 15:59 Last Infusion: 05/02/22 09:37 Dose: Infused Cefepime HCl 2,000 mg/ Syringe 20 mls @ 5 mls/min IV Q8 [facility]; Protocol Stop: 05/09/22 16:14 Insulin Aspart (Insulin Aspart Per Unit) 0 units SC ACHS DESIREE Stop: 05/27/22 20:59 Last Admin: 05/02/22 08:34 Dose: 7 units Insulin Glargine (Lantus Per Unit Charge) 0 - 20 units SQ BID DESIREE Stop: 05/27/22 20:59 Last Admin: 05/02/22 08:34 Dose: 20 units Losartan Potassium (Losartan Potassium 25 Mg Tab) 25 mg PO DAILY DESIREE Stop: 05/28/22 08:59 Last Admin: 04/28/22 08:09 Dose: 25 mg Magnesium Oxide (Magnesium Oxide 400 Mg Tab) 400 mg PO DAILY [facility] Stop: 05/28/22 08:59 Last Admin: 04/30/22 07:48 Dose: 400 mg Metoprolol Tartrate (Metoprolol Tartrate 25 Mg Tab) 12.5 mg PO BID DESIREE Stop: 05/27/22 20:59 Last Admin: 05/02/22 08:37 Dose: 12.5 mg Miscellaneous (Carbohydrates For Hypoglycemia ) 15 - 30 gm PO UD PRN PRN Reason: Hypoglycemia Protocol Stop: 05/27/22 19:03 Oxycodone HCl (Oxycodone Hcl Ir 5 Mg Tab (Immediate Release)) 5 mg PO Q4H PRN PRN Reason: Pain Stop: 05/14/22 23:48 Last Admin: 05/01/22 05:11 Dose: 5 mg Pantoprazole Sodium (Pantoprazole 40 Mg Tab) 40 mg PO DAILY DESIREE Stop: 05/28/22 08:59 Last Admin: 04/29/22 07:46 Dose: 40 mg Simvastatin (Simvastatin 10 Mg Tab) 10 mg PO DAILY DESIREE Stop: 05/28/22 08:59 Last Admin: 04/30/22 07:48 Dose: 10 mg (1) Sepsis Sepsis type: sepsis due to unspecified organism Sepsis acute organ dysfunction status: without acute organ dysfunction Qualified Code(s): A41.9 - Sepsis, unspecified organism
[2022-05-02] MEDS: ACETAMINOPHEN 500 MG TAB PO SCH ×2 (12:52→20:59)
--- NOTE | 2022-05-02 19:47 | Nephrology Progress Note ---
Date of Service May 02, 2022 Assessment & Plan (1) Acute respiratory failure: Plan: - likely 2/2 pulmonary edema/ HF exacerbation. Renal function so far is normal w/ acceptable I/O. - continue furosemide IV 80 mg BID, likely to lower dose/change to po depending on status tomorrow - Daily I/O - Non invasive ventilation would help - Cardiology recs (2) Sepsis: Plan: As per GI/ Surgery - 2/2 ileocolitis. (3) Ileocolitis: (4) HTN (hypertension): Plan: - acceptable - continue on home antihypertensives, Increase lasix dose as above. Admission and Anticipated Discharge Date Admission Date: April 27, 2022 Subjective weaning off of high flow 02 when I saw her today at about 1215 pm. breathing better. ongoing abd pain. on clears Review of Systems Review of Systems: All systems reviewed & are unremarkable except as noted in Subjective Physical Exam Constitutional: well developed and well nourished; no acute distress (sitting up in chair on 02nc) Eyes: EOM intact bilaterally ENMT: Ears: no external ear abnormality Nose: no external nose abnormality Mouth: + dry oral mucous membranes Neck: no nuchal rigidity Respiratory: normal respiratory effort Auscultation: + diminished lung sounds Cardiovascular: Rate/Rhythm: regular rate and regular rhythm Extremities: + edema Gastrointestinal (Abdomen): Inspection/Auscultation: normal bowel sounds Percussion/Palpation: abdomen soft; abdomen nontender Musculoskeletal: Extremities: strength 5/5 throughout Skin: no rashes, warm and dry Neurologic: patel, fluent speech, no tremor Psychiatric: Orientation: oriented x 3 Results & Data ([facility] [place]) Vital Signs (Past 12 Hours) Vital Signs Temp Pulse Pulse Resp BP Pulse Ox O2 Del Method 05/02/22 19:41 36.6 C 88 18 124/65 95 Nasal Cannula 05/02/22 14:10 83 05/02/22 14:55 36.7 C 87 17 134/60 98 High Flow Nasal Cannula 05/02/22 11:12 36.9 C 85 22 136/57 L 95 High Flow Nasal Cannula 05/02/22 07:54 High Flow Nasal Cannula O2 Flow Rate 05/02/22 19:41 2 05/02/22 14:10 05/02/22 14:55 4 05/02/22 11:12 8 05/02/22 07:54 8 Laboratory Results 05/02/22 06:11 05/02/22 06:11 (1) Sepsis Sepsis type: sepsis due to unspecified organism Sepsis acute organ dysfunction status: without acute organ dysfunction Qualified Code(s): A41.9 - Sepsis, unspecified organism
[2022-05-03] MEDS: metroNIDAZOLE 500 MG/100 ML BAG IV SCH ×3 (01:13→16:34)
[2022-05-03] MEDS: ACETAMINOPHEN 500 MG TAB PO SCH ×3 (05:14→21:27)
[2022-05-03] MEDS: CEFEPIME 2,000 MG in SYRINGE 0 ML IV SCH ×2 (05:15→17:04)
--- NOTE | 2022-05-03 07:30 | Surgery Progress Note ---
Date of Service May 03, 2022 Assessment & Plan (1) Ileocolitis: Plan: Patient continues to improve very slowly She obviously still has some tenderness A major operation in her will almost certainly be a very difficult postop course She may not even make it out of the hospital with her cardiopulmonary status Continue medical management with IV antibiotics Advance diet as planned We will continue to monitor Admission and Anticipated Discharge Date Admission Date: April 27, 2022 Subjective Patient currently is resting comfortably in bed She does have oxygen in place but does appear to be breathing comfortably She did have a small bowel movement Her vital signs are stable and she is afebrile Review of Systems Review of Systems: All systems reviewed & are unremarkable except as noted in HPI & below Physical Exam Physical Exam: Seems to be breathing much better Her abdomen has some bowel sounds Constitutional: well developed and well nourished; no acute distress Eyes: + anicteric sclerae Respiratory: no respiratory distress Cardiovascular: Rate/Rhythm: regular rate Gastrointestinal (Abdomen): Less distended Musculoskeletal: Gait: normal gait Skin: no rashes, warm and dry Neurologic: awake Psychiatric: Orientation: alert Results & Data ([facility]) Vital Signs (Past 12 Hours) Vital Signs Temp Pulse Pulse Resp BP Pulse Ox O2 Del Method 05/03/22 07:17 37.1 C 86 18 132/54 L 98 High Flow Nasal Cannula 05/02/22 21:57 89 05/03/22 03:44 36.7 C 85 16 138/60 96 High Flow Nasal Cannula 05/02/22 19:30 High Flow Nasal Cannula 05/02/22 23:16 37.1 C 82 17 118/61 95 High Flow Nasal Cannula 05/02/22 19:41 36.6 C 88 18 124/65 95 High Flow Nasal Cannula O2 Flow Rate 05/03/22 07:17 2 05/02/22 21:57 05/03/22 03:44 2 05/02/22 19:30 2 05/02/22 23:16 2 05/02/22 19:41 2 PG Care Time/CCT Total # of Minutes Spent Total Time Spent with Patient: Total time spent is greater than 50% in coordination of care (as documented) at patient's floor/unit and/or counseling patient: Coding Level of Care Code 20681 Inpt Consult Level 3 Diagnoses Ileocolitis K52.9
[2022-05-03 07:57] LABS: Hematocrit (blood only) 30.4 % (34.1-44.9); Hemoglobin 9.7 g/dl (12.0-16.0); Mean Corpuscular Hemoglobin 21.4 pg (25.0-34.0); Mean Corpuscular Hgb Conc 31.9 g/dL (32.0-36.0); Nucleated RBC # (auto) 0.08 K/uL (0-0); Nucleated RBC % (auto) 0.6 %; Platelet Count 258 K/uL (130-400); RDW Standard Deviation 56.9 fL (36.4-46.3); Red Blood Count 4.54 M/uL (3.93-5.22); White Blood Count 14.35 K/ul (4.8-10.8)
[2022-05-03 07:59] LABS: Acanthocytes 2+; Anisocytosis Present; Basophils # (auto) 0.11 K/uL (0-0.2); Basophils % (auto) 0.8 %; Echinocytes 2+; Eosinophils # (auto) 0.72 K/uL (0-0.50); Immature Granulocytes # (auto) 0.32 K/uL (0.00-0.02); Immature Granulocytes % (auto) 2.2 %; Lymphocytes # (auto) 2.54 K/uL (1.2-3.4); Lymphocytes % (auto) 17.7 %; Microcytosis Present; Monocytes # (auto) 2.24 K/uL (0.24-0.82); Monocytes % (auto) 15.6 %; Neutrophils # (auto) 8.42 K/uL (1.4-6.5); Neutrophils % (auto) 58.7 %; Poikilocytosis Present; Polychromasia 2+; Schistocytes 1+; Target Cells 1+
[2022-05-03] MEDS: INSULIN ASPART PER UNIT SC SCH ×4 (07:59→21:29)
[2022-05-03] MEDS: LANTUS PER UNIT CHARGE SQ SCH ×2 (08:00→21:28)
[2022-05-03] MEDS: ASPIRIN 81 MG ECTAB PO SCH (08:03)
[2022-05-03] MEDS: PANTOprazole 40 MG TAB PO SCH (08:03)
[2022-05-03] MEDS: CLOPIDOGREL BISULFATE 75 MG TAB PO SCH (08:03)
[2022-05-03] MEDS: LOSARTAN POTASSIUM 25 MG TAB PO SCH (08:03)
[2022-05-03] MEDS: CINACALCET HCL 30 MG TAB PO SCH (08:03)
[2022-05-03] MEDS: METOPROLOL TARTRATE 25 MG TAB PO SCH ×2 (08:04→21:27)
[2022-05-03] MEDS: FUROSEMIDE 40 MG/4 ML VIAL IV SCH ×2 (08:04→16:34)
[2022-05-03] MEDS: HEPARIN SOD 5,000 UNIT/0.5 ML VIAL SQ SCH ×2 (08:04→21:27)
--- NOTE | 2022-05-03 08:39 | XRay Report ---
XR chest 1V portable CLINICAL HISTORY: Hypoxia. COMPARISON STUDY: Chest radiograph May 01, 2022. FINDINGS: There is no pneumothorax. Interstitial pulmonary edema is noted. This has improved since pr ior exam. Small bilateral pleural effusions, right larger left, have also improved. Cardiomegaly is n oted. Hazy right basilar opacity has decreased. IMPRESSION: Pulmonary edema with small bilateral pleural effusions and bibasilar opacities. Findings have moderately improved since exam of May 01, 2022. ACT 112: Negative or not required by law. Electronically signed by: Karson Goddard M.D. 05/03/2022 8:38 AM
[2022-05-03 10:49] LABS: BUN Creatinine Ratio 31.3 (10-20); Creatinine Clr Calc Pharmacy 56.1 ml/min; Est GFR (African American) 80.1 ml/min; Est GFR (Non-African American) 69.1 ml/min; Magnesium 1.5 mg/dl (1.7-2.4); Potassium 3.1 mmol/L (3.5-5.1)
--- NOTE | 2022-05-03 12:18 | Cardiology Progress Note ---
Date of Service May 03, 2022 Assessment & Plan (1) Abnormal CT scan: (2) Abdominal pain: (3) Sepsis: (4) Ileocolitis: (5) Elevated troponin I level: (6) Abdominal pain, acute, right lower quadrant: (7) Abnormal EKG: (8) Vomiting: (9) Coronary atherosclerosis of [place] coronary vessel: (10) Mitral stenosis: (11) Chronic heart failure with preserved ejection fraction (HFpEF): Plan The patient had another large diuresis yesterday. I believe she is back down to her baseline weight. I decreased diuretics to Lasix 40 mg IV twice daily. She appears to be starting a diet and we should switch her over to oral diuretics soon. Admission and Anticipated Discharge Date Admission Date: April 27, 2022 Subjective The patient is sitting in a chair and looks to be on clear liquids. Review of Systems Review of Systems: Review of Systems: See HPI for pertinent positives. All other 10 point review of systems are negative. Physical Exam Physical Exam: General: no acute distress and stated age Head: normocephalic, no masses, lesions, tenderness or abnormalities Eyes: conjunctiva are pink and non-injected, sclera clear Neck: supple, no adenopathy, no bruits, normal jugular venous pulse, no hepatojugular reflux Chest: normal shape and normal respiratory effort Lungs: clear to auscultation and percussion Cardiac Exam: - regular rate & rhythm, no murmurs gallops or rubs - normal S1, normal S2 Pulses: 2(+) throughout Abdomen: abdomen soft, non-tender, no abnormal masses and no hepatosplenomegaly Musculoskeletal: no gait disturbance, no joint inflammation, no deforming arthritis Extremities: no edema and no cyanosis Neuro: grossly normal exam Results & Data ([facility]) Vital Signs (Past 12 Hours) Vital Signs Temp Pulse Resp BP BP Pulse Ox O2 Del Method 05/03/22 11:37 36.8 C 83 17 129/60 95 Nasal Cannula 05/03/22 08:00 Nasal Cannula 05/03/22 07:17 37.1 C 86 18 132/54 L 98 High Flow Nasal Cannula 05/03/22 03:44 36.7 C 85 16 138/60 96 High Flow Nasal Cannula O2 Flow Rate 05/03/22 11:37 2 05/03/22 08:00 2 05/03/22 07:17 2 05/03/22 03:44 2 Laboratory Results Laboratory Results - last 24 hr 04/29/22 05/02/22 05/02/22 17:09 16:33 20:14 WBC RBC Hgb Hct MCV MCH MCHC RDW Std Deviation RDW Coeff of Vanita Plt Count Immature Gran % (Auto) Neut % (Auto) Lymph % (Auto) Noble % (Auto) Eos % (Auto) Baso % (Auto) Neut # (Auto) Lymph # (Auto) Noble # (Auto) Eos # (Auto) Baso # (Auto) Immature Gran # (Auto) Absolute Nucleated RBC Nucleated RBC % (auto) Polychromasia Poikilocytosis Anisocytosis Microcytosis Target Cells Echinocytes Acanthocytes (Spur) Schistocytes Sodium Potassium Chloride Carbon Dioxide Anion Gap BUN Creatinine Est Cr Clr Drug Dosing Est GFR ( Amer) Est GFR (Non-Af Amer) BUN/Creatinine Ratio Glucose POC Glucose 211 H 218 H Calcium Phosphorus Magnesium Crossmatch See Detail 05/03/22 05/03/22 05/03/22 06:05 06:05 07:16 WBC 14.35 H RBC 4.54 Hgb 9.7 L Hct 30.4 L MCV 67.0 L MCH 21.4 L MCHC 31.9 L RDW Std Deviation 56.9 H RDW Coeff of Vanita 25.0 H Plt Count 258 Immature Gran % (Auto) 2.2 Neut % (Auto) 58.7 Lymph % (Auto) 17.7 Noble % (Auto) 15.6 Eos % (Auto) 5.0 Baso % (Auto) 0.8 Neut # (Auto) 8.42 H Lymph # (Auto) 2.54 Noble # (Auto) 2.24 H Eos # (Auto) 0.72 H Baso # (Auto) 0.11 Immature Gran # (Auto) 0.32 H Absolute Nucleated RBC 0.08 H Nucleated RBC % (auto) 0.6 Polychromasia 2+ Poikilocytosis Present Anisocytosis Present Microcytosis Present Target Cells 1+ Echinocytes 2+ Acanthocytes (Spur) 2+ Schistocytes 1+ Sodium 137 Potassium 3.1 L Chloride 101 Carbon Dioxide 26 Anion Gap 10 BUN 25 H Creatinine 0.80 Est Cr Clr Drug Dosing 56.1 Est GFR ( Amer) 80.1 Est GFR (Non-Af Amer) 69.1 BUN/Creatinine Ratio 31.3 H Glucose 121 H POC Glucose 137 H Calcium 8.0 L Phosphorus 2.0 L Magnesium 1.5 L Crossmatch 05/03/22 11:21 WBC RBC Hgb Hct MCV MCH MCHC RDW Std Deviation RDW Coeff of Vanita Plt Count Immature Gran % (Auto) Neut % (Auto) Lymph % (Auto) Noble % (Auto) Eos % (Auto) Baso % (Auto) Neut # (Auto) Lymph # (Auto) Noble # (Auto) Eos # (Auto) Baso # (Auto) Immature Gran # (Auto) Absolute Nucleated RBC Nucleated RBC % (auto) Polychromasia Poikilocytosis Anisocytosis Microcytosis Target Cells Echinocytes Acanthocytes (Spur) Schistocytes Sodium Potassium Chloride Carbon Dioxide Anion Gap BUN Creatinine Est Cr Clr Drug Dosing Est GFR ( Amer) Est GFR (Non-Af Amer) BUN/Creatinine Ratio Glucose POC Glucose 161 H Calcium Phosphorus Magnesium Crossmatch Medications Administered Current Inpatient Medications Acetaminophen (Acetaminophen 500 Mg Tab) 1,000 mg PO Q8H [facility] Stop: 06/01/22 11:59 Last Admin: 05/03/22 05:14 Dose: 1,000 mg Amlodipine Besylate (Amlodipine Besylate 5 Mg Tab) 5 mg PO QAM [facility] Stop: 05/28/22 08:59 Last Admin: 04/28/22 08:09 Dose: 5 mg Aspirin (Aspirin 81 Mg Ectab) 81 mg PO DAILY [facility] Stop: 05/28/22 08:59 Last Admin: 05/03/22 08:03 Dose: 81 mg Cinacalcet (Cinacalcet Hcl 30 Mg Tab) 30 mg PO DAILY [facility] Stop: 05/28/22 08:59 Last Admin: 05/03/22 08:03 Dose: 30 mg Clopidogrel Bisulfate (Clopidogrel Bisulfate 75 Mg Tab) 75 mg PO QAM [facility] Stop: 05/28/22 08:59 Last Admin: 05/03/22 08:03 Dose: 75 mg Dextrose (Dextrose 50% 50 Ml Syringe) 25 - 50 ml IV UD PRN; Protocol PRN Reason: Hypoglycemia Protocol Stop: 05/27/22 19:03 Furosemide (Furosemide 40 Mg/4 Ml Vial) 40 mg IV BID17 [facility] Stop: 06/02/22 16:59 Glucagon (Glucagon For Inj 1 Mg Vial) 1 mg SQ UD PRN; Protocol PRN Reason: Hypoglycemia Protocol Stop: 05/27/22 19:03 Glucose (Glucose 40% Gel 15 Gm Tube) 15 - 30 gm PO UD PRN; Protocol PRN Reason: Hypoglycemia Protocol Stop: 05/27/22 19:03 Glucose (Glucose 10 Tab/Tube) 4 - 8 tab PO UD PRN; Protocol PRN Reason: Hypoglycemia Treatment Stop: 05/27/22 19:03 Heparin Sodium (Porcine) (Heparin Sod 5,000 Unit/0.5 Ml Vial) 5,000 units SQ Q12 [facility] Stop: 05/28/22 20:59 Last Admin: 05/03/22 08:04 Dose: 5,000 units Metronidazole (Flagyl) 500 mg in 100 mls @ 100 mls/hr IV Q8H [facility] Stop: 05/09/22 15:59 Last Infusion: 05/03/22 09:00 Dose: Infused Cefepime HCl 2,000 mg/ Syringe 20 mls @ 5 mls/min IV Q8 [facility]; Protocol Stop: 05/09/22 16:14 Last Admin: 05/03/22 05:15 Dose: 5 mls/min Insulin Aspart (Insulin Aspart Per Unit) 0 units SC ACHS [facility] Stop: 05/27/22 20:59 Last Admin: 05/03/22 07:59 Dose: 4 units Insulin Glargine (Lantus Per Unit Charge) 0 - 20 units SQ BID [facility] Stop: 05/27/22 20:59 Last Admin: 05/03/22 08:00 Dose: 10 units Losartan Potassium (Losartan Potassium 25 Mg Tab) 25 mg PO DAILY [facility] Stop: 05/28/22 08:59 Last Admin: 05/03/22 08:03 Dose: 25 mg Magnesium Oxide (Magnesium Oxide 400 Mg Tab) 400 mg PO DAILY [facility] Stop: 05/28/22 08:59 Last Admin: 04/30/22 07:48 Dose: 400 mg Metoprolol Tartrate (Metoprolol Tartrate 25 Mg Tab) 12.5 mg PO BID [facility] Stop: 05/27/22 20:59 Last Admin: 05/03/22 08:04 Dose: 12.5 mg Miscellaneous (Carbohydrates For Hypoglycemia ) 15 - 30 gm PO UD PRN PRN Reason: Hypoglycemia Protocol Stop: 05/27/22 19:03 Oxycodone HCl (Oxycodone Hcl Ir 5 Mg Tab (Immediate Release)) 5 mg PO Q4H PRN PRN Reason: Pain Stop: 05/14/22 23:48 Last Admin: 05/01/22 05:11 Dose: 5 mg Pantoprazole Sodium (Pantoprazole 40 Mg Tab) 40 mg PO DAILY [facility] Stop: 05/28/22 08:59 Last Admin: 05/03/22 08:03 Dose: 40 mg Simvastatin (Simvastatin 10 Mg Tab) 10 mg PO DAILY [facility] Stop: 05/28/22 08:59 Last Admin: 04/30/22 07:48 Dose: 10 mg (1) Sepsis Sepsis acute organ dysfunction status: without acute organ dysfunction Sepsis type: sepsis due to unspecified organism Qualified Code(s): A41.9 - Sepsis, unspecified organism (2) Vomiting Nausea presence: with nausea Vomiting type: unspecified Qualified Code(s): R11.2 - Nausea with vomiting, unspecified
--- NOTE | 2022-05-03 14:48 | Hospitalist Progress Note ---
Date of Service May 03, 2022 Assessment & Plan (1) Acute respiratory failure: Plan: Acute respiratory 2/2 fluid overload. She had an +8L fluid balance since admission noted on 04/30. She went into respiratory failure requiring high flow oxygen and received more aggressive IV diuresis and metolazone. Today she is breathing well on 2LPM via nasal canula. Cont diuresis efforts but start to taper off. Appreciate nephrology and cardiology assistance with this effort. Cont Kendall in place. Strict I/Os. Cont PCU monitoring. Daily standing weights. Ambulate with assist as tolerated. Encouraged activity as tolerated. (2) Sepsis: Plan: resuscitated on admission aggressively given her initial clinical picture and elevated lactate which has now resolved. She continues on Day 6 of broad spectrum abx including Cefepime, Flagyl and vanc PO (for empiric treatment of possible c-diff/toxic megacolon). Vanc PO stopped with negative stool culture. (3) Ileocolitis: Plan: Uncertain cause, stool studies obtained this am are negative. She also has the appearance of an ileus on KUB which likely caused the issue of no BM for several days. She is tolerating PO. Will cont to advance diet today to ADA solid food. Ambulate as tolerated. Outpatient GI follow-up for colonoscopy. (4) Colon distention: Plan: Improved, Abx as above. Ambulate as tolerated. Cont supportive care efforts. Diet to regular (5) Demand ischemia: (6) Abnormal EKG: Plan: Admitting troponin level 395, minimally up trended, admitting EKG with sinus tachycardia and ST depression in lateral leads. 04/27 echo: EF greater than 70%, hyperdynamic LV systolic function, grade 1 diastolic dysfunction. No segmental left ventricular wall motion abnormalities. Severe mitral annular calcification noted. Likely demand ischemia secondary to acute sepsis. No further cardiology workup recommended at this time. (7) Anemia: Plan: Baseline hemoglobin around 8.7. She was given a blood transfusion on the agustina of 04/29, Hb is improved and stable. (8) Type 2 diabetes mellitus without complications: Plan: Glucose at goal, cont basal/bolus insulin. A1C at goal. (9) Ovarian cyst: Plan: nonurgent gynecology consultation for further investigation as outpatient. (10) Pulmonary nodule: Plan: repeat future CT scan in 6 months for stability. (11) Hyperparathyroidism: Plan: Takes cinacalcet. Follows with endocrinology at [facility]. (12) HTN (hypertension): Plan: low normal BP, hold losartan and amlodipine DVT proph: heparin DNR/DNI Dispo-cont PCU monitoring. DO Hasmukh De Souza Hospitalist Admission and Anticipated Discharge Date Admission Date: April 27, 2022 Subjective 81 yo F admitted for severe sepsis 2/2 ileocolitis of uncertain origin. Now having 5 loose stools today after several days of probable ileus She is not overtly uncomfortable with this reports right sided abdominal pain, conner RLQ Tolerating full liquids--advanced to reg food Daughter and are present and we walked through her case and reviewed chest films Patient has no issues wtih shortness of breath and denies chest pain or other issues She is committed to working with therapy this afternoon. Review of Systems Review of Systems: All systems were reviewed and negative except as indicated on subjective above. Physical Exam Physical Exam: CONSTITUTIONAL: obese, vitals as above, generally, NAD, appears clinically improved. EYES: normal conjunctivae, no scleral icterus ENT: external ear and nose normal, MMM NECK: trachea midline, RESPIRATORY: CTAB, no wheezing heard, no increased respiratory effort. CARDIOVASCULAR: regular rate and rhythm, S1 and 2 heard without murmurs, gallops or rubs, no JVD, no peripheral edema CHEST: inspection of chest was normal GASTROINTESTINAL: soft, TTP in RUQ and RLQ,ND, no guarding. MUSCULOSKELETAL: generalized weakness, she is a 1 assist, head is normocephalic and atraumatic, SKIN: warm and dry NEUROLOGIC: CN 2-12 grossly intact, no sensory deficit, normal cognition, normal speech PSYCHIATRIC: alert cooperative and oriented to person, place and time. Results & Data Results & Data ([facility]) Vital Signs (Past 12 Hours) Vital Signs Temp Pulse Resp BP BP Pulse Ox O2 Del Method 05/03/22 11:37 36.8 C 83 17 129/60 95 Nasal Cannula 05/03/22 08:00 Nasal Cannula 05/03/22 07:17 37.1 C 86 18 132/54 L 98 High Flow Nasal Cannula 05/03/22 03:44 36.7 C 85 16 138/60 96 High Flow Nasal Cannula O2 Flow Rate 05/03/22 11:37 2 05/03/22 08:00 2 05/03/22 07:17 2 05/03/22 03:44 2 Laboratory Results Short CBC 05/03/22 Range/Units 06:05 WBC 14.35 H (4.8-10.8) K/ul Hgb 9.7 L (12.0-16.0) g/dl Hct 30.4 L (34.1-44.9) % Plt Count 258 (130-400) K/uL BMP 05/03/22 06:05 Sodium 137 Potassium 3.1 L Chloride 101 Carbon Dioxide 26 BUN 25 H Creatinine 0.80 Glucose 121 H Calcium 8.0 L Diagnostic Findings Chest X-Ray 05/03/22 07:00 XR chest 1V portable CLINICAL HISTORY: Hypoxia. COMPARISON STUDY: Chest radiograph May 01, 2022. FINDINGS: There is no pneumothorax. Interstitial pulmonary edema is noted. This has improved since prior exam. Small bilateral pleural effusions, right larger left, have also improved. Cardiomegaly is noted. Hazy right basilar opacity has decreased. IMPRESSION: Pulmonary edema with small bilateral pleural effusions and bibasilar opacities. Findings have moderately improved since exam of May 01, 2022. ACT 112: Negative or not required by law. Electronically signed by: Karson Goddard M.D. 05/03/2022 8:38 AM Medications Administered Current Inpatient Medications Acetaminophen (Acetaminophen 500 Mg Tab) 1,000 mg PO Q8H [facility] Stop: 06/01/22 11:59 Last Admin: 05/03/22 12:36 Dose: 1,000 mg Amlodipine Besylate (Amlodipine Besylate 5 Mg Tab) 5 mg PO QAM [facility] Stop: 05/28/22 08:59 Last Admin: 04/28/22 08:09 Dose: 5 mg Aspirin (Aspirin 81 Mg Ectab) 81 mg PO DAILY [facility] Stop: 05/28/22 08:59 Last Admin: 05/03/22 08:03 Dose: 81 mg Cinacalcet (Cinacalcet Hcl 30 Mg Tab) 30 mg PO DAILY [facility] Stop: 05/28/22 08:59 Last Admin: 05/03/22 08:03 Dose: 30 mg Clopidogrel Bisulfate (Clopidogrel Bisulfate 75 Mg Tab) 75 mg PO QAM [facility] Stop: 05/28/22 08:59 Last Admin: 05/03/22 08:03 Dose: 75 mg Dextrose (Dextrose 50% 50 Ml Syringe) 25 - 50 ml IV UD PRN; Protocol PRN Reason: Hypoglycemia Protocol Stop: 05/27/22 19:03 Furosemide (Furosemide 40 Mg/4 Ml Vial) 40 mg IV BID17 [facility] Stop: 06/02/22 16:59 Glucagon (Glucagon For Inj 1 Mg Vial) 1 mg SQ UD PRN; Protocol PRN Reason: Hypoglycemia Protocol Stop: 05/27/22 19:03 Glucose (Glucose 40% Gel 15 Gm Tube) 15 - 30 gm PO UD PRN; Protocol PRN Reason: Hypoglycemia Protocol Stop: 05/27/22 19:03 Glucose (Glucose 10 Tab/Tube) 4 - 8 tab PO UD PRN; Protocol PRN Reason: Hypoglycemia Treatment Stop: 05/27/22 19:03 Heparin Sodium (Porcine) (Heparin Sod 5,000 Unit/0.5 Ml Vial) 5,000 units SQ Q12 [facility] Stop: 05/28/22 20:59 Last Admin: 05/03/22 08:04 Dose: 5,000 units Metronidazole (Flagyl) 500 mg in 100 mls @ 100 mls/hr IV Q8H [facility] Stop: 05/09/22 15:59 Last Infusion: 05/03/22 09:00 Dose: Infused Cefepime HCl 2,000 mg/ Syringe 20 mls @ 5 mls/min IV Q12H [facility]; Protocol Stop: 05/09/22 17:59 Insulin Aspart (Insulin Aspart Per Unit) 0 units SC ACHS [facility] Stop: 05/27/22 20:59 Last Admin: 05/03/22 12:36 Dose: 8 units Insulin Glargine (Lantus Per Unit Charge) 0 - 20 units SQ BID [facility] Stop: 05/27/22 20:59 Last Admin: 05/03/22 08:00 Dose: 10 units Losartan Potassium (Losartan Potassium 25 Mg Tab) 25 mg PO DAILY [facility] Stop: 05/28/22 08:59 Last Admin: 05/03/22 08:03 Dose: 25 mg Magnesium Oxide (Magnesium Oxide 400 Mg Tab) 400 mg PO DAILY [facility] Stop: 05/28/22 08:59 Last Admin: 04/30/22 07:48 Dose: 400 mg Metoprolol Tartrate (Metoprolol Tartrate 25 Mg Tab) 12.5 mg PO BID [facility] Stop: 05/27/22 20:59 Last Admin: 05/03/22 08:04 Dose: 12.5 mg Miscellaneous (Carbohydrates For Hypoglycemia ) 15 - 30 gm PO UD PRN PRN Reason: Hypoglycemia Protocol Stop: 05/27/22 19:03 Oxycodone HCl (Oxycodone Hcl Ir 5 Mg Tab (Immediate Release)) 5 mg PO Q4H PRN PRN Reason: Pain Stop: 05/14/22 23:48 Last Admin: 05/01/22 05:11 Dose: 5 mg Pantoprazole Sodium (Pantoprazole 40 Mg Tab) 40 mg PO DAILY [facility] Stop: 05/28/22 08:59 Last Admin: 05/03/22 08:03 Dose: 40 mg Simvastatin (Simvastatin 10 Mg Tab) 10 mg PO DAILY [facility] Stop: 05/28/22 08:59 Last Admin: 04/30/22 07:48 Dose: 10 mg (1) Sepsis Sepsis type: sepsis due to unspecified organism Sepsis acute organ dysfunction status: without acute organ dysfunction Qualified Code(s): A41.9 - Sepsis, unspecified organism
[2022-05-03] MEDS: MAGNESIUM SULFATE / D5W 1 GM/100 ML BAG IV SCH ×2 (15:05→17:04)
[2022-05-03] MEDS: POTASSIUM CHLORIDE CRTAB 20 MEQ TABCR PO SCH ×2 (15:05→21:26)
--- NOTE | 2022-05-03 17:24 | Nephrology Progress Note ---
Date of Service May 03, 2022 Assessment & Plan (1) Acute respiratory failure: Plan: - likely 2/2 pulmonary edema/ HF exacerbation. Renal function so far is normal w/ acceptable I/O. - continue furosemide IV 40 mg BID (lowered from 80 mg IV bid w/ pm dose today), likely to lower dose/change to po depending on status tomorrow - Daily I/O - f/u cardiology recs Will sign off; pls call if ? No specific post d/c nephro f/u needed (2) Sepsis: Plan: As per GI/ Surgery - 2/2 ileocolitis. (3) HTN (hypertension): Plan: - acceptable - continue on home antihypertensives, lasix dose as above. Admission and Anticipated Discharge Date Admission Date: April 27, 2022 Subjective cardiology lowered IV diuretics today; K being aggressively repleted. seen on evening rounds. still quite sore; marked exertional dyspnea w/ getting up to commode. Review of Systems Review of Systems: All systems reviewed & are unremarkable except as noted in Subjective Physical Exam Constitutional: well developed and well nourished; no acute distress (sitting on side of bed on 02nc) Eyes: EOM intact bilaterally ENMT: Ears: no external ear abnormality Nose: no external nose abnormality Mouth: + dry oral mucous membranes Neck: no nuchal rigidity Respiratory: normal respiratory effort Auscultation: + diminished lung sounds Cardiovascular: Rate/Rhythm: regular rate and regular rhythm Extremities: + edema Gastrointestinal (Abdomen): Inspection/Auscultation: normal bowel sounds Percussion/Palpation: abdomen soft; abdomen nontender Musculoskeletal: Extremities: strength 5/5 throughout Skin: no rashes, warm and dry Psychiatric: Orientation: oriented x 3 (but not as coherent as at previous exam) Results & Data ([facility]) Vital Signs (Past 12 Hours) Vital Signs Temp Pulse Resp BP BP Pulse Ox O2 Del Method 05/03/22 15:52 36.6 C 85 18 138/54 L 96 High Flow Nasal Cannula 05/03/22 11:37 36.8 C 83 17 129/60 95 Nasal Cannula 05/03/22 08:00 Nasal Cannula 05/03/22 07:17 37.1 C 86 18 132/54 L 98 High Flow Nasal Cannula O2 Flow Rate 05/03/22 15:52 2 05/03/22 11:37 2 05/03/22 08:00 2 05/03/22 07:17 2 Laboratory Results 05/03/22 06:05 05/03/22 06:05 (1) Sepsis Sepsis acute organ dysfunction status: without acute organ dysfunction Sepsis type: sepsis due to unspecified organism Qualified Code(s): A41.9 - Sepsis, unspecified organism
[2022-05-04] MEDS: metroNIDAZOLE 500 MG/100 ML BAG IV SCH ×2 (00:20→08:01)
[2022-05-04] MEDS: ACETAMINOPHEN 500 MG TAB PO SCH ×3 (05:38→21:04)
[2022-05-04] MEDS: CEFEPIME 2,000 MG in SYRINGE 0 ML IV SCH (06:51)
[2022-05-04 07:13] LABS: Hemoglobin 9.6 g/dl (12.0-16.0); Mean Corpuscular Hemoglobin 21.6 pg (25.0-34.0); Mean Corpuscular Volume 67.4 fL (80.0-100.0); Mean Platelet Volume 10.5 fL (9.4-12.3); Nucleated RBC # (auto) 0.04 K/uL (0-0); Nucleated RBC % (auto) 0.3 %; Platelet Count 263 K/uL (130-400); RDW Coefficient of Variation 25.2 % (11.5-14.5); RDW Standard Deviation 58.1 fL (36.4-46.3); Red Blood Count 4.45 M/uL (3.93-5.22); White Blood Count 14.75 K/ul (4.8-10.8)
[2022-05-04 07:22] LABS: BUN Creatinine Ratio 29.2 (10-20); Calcium 7.5 mg/dl (8.5-10.1); Creatinine Clr Calc Pharmacy 49.8 ml/min; Est GFR (African American) 70.4 ml/min; Est GFR (Non-African American) 60.8 ml/min; Magnesium 1.6 mg/dl (1.7-2.4); Phosphorus 1.6 mg/dl (2.5-4.9); Potassium 3.8 mmol/L (3.5-5.1)
--- NOTE | 2022-05-04 07:40 | Surgery Progress Note ---
Date of Service May 04, 2022 Assessment & Plan (1) Ileocolitis: Plan: Cardiopulmonary status is improving Does not appear to be worsening as far as her ileocolitis Continue to advance diet as tolerated Surgical intervention would create complicated postop course Would only proceed for life-threatening situation Admission and Anticipated Discharge Date Admission Date: April 27, 2022 Subjective Patient is awake and alert breathing much better Very happy she received food She does pass some flatus and had several bowel movements Vital signs are stable Review of Systems Review of Systems: All systems reviewed & are unremarkable except as noted in HPI & below Physical Exam Physical Exam: Her abdomen is less distended She does have some bowel sounds Some mild tenderness on the right side Results & Data ([facility]) Vital Signs (Past 12 Hours) Vital Signs Temp Pulse Resp BP BP Pulse Ox O2 Del Method 05/04/22 03:00 36.9 C 67 18 148/66 H 92 Nasal Cannula 05/03/22 21:29 High Flow Nasal Cannula 05/03/22 23:12 37.4 C 83 18 130/60 96 Nasal Cannula O2 Flow Rate 05/04/22 03:00 2.5 05/03/22 21:29 2 05/03/22 23:12 PG Care Time/CCT Total # of Minutes Spent Total Time Spent with Patient: Total time spent is greater than 50% in coordination of care (as documented) at patient's floor/unit and/or counseling patient: Coding Level of Care Code 23061 Inpt Consult Level 3 Diagnoses Ileocolitis K52.9
[2022-05-04] MEDS: INSULIN ASPART PER UNIT SC SCH ×4 (07:59→21:10)
[2022-05-04] MEDS: LANTUS PER UNIT CHARGE SQ SCH ×2 (07:59→21:11)
[2022-05-04] MEDS: METOPROLOL TARTRATE 25 MG TAB PO SCH ×2 (08:01→21:05)
[2022-05-04] MEDS: ASPIRIN 81 MG ECTAB PO SCH (08:02)
[2022-05-04] MEDS: LOSARTAN POTASSIUM 25 MG TAB PO SCH (08:02)
[2022-05-04] MEDS: PANTOprazole 40 MG TAB PO SCH (08:02)
[2022-05-04] MEDS: HEPARIN SOD 5,000 UNIT/0.5 ML VIAL SQ SCH ×2 (08:02→21:06)
[2022-05-04] MEDS: CLOPIDOGREL BISULFATE 75 MG TAB PO SCH (08:02)
[2022-05-04] MEDS: CINACALCET HCL 30 MG TAB PO SCH (08:02)
[2022-05-04] MEDS: FUROSEMIDE 40 MG/4 ML VIAL IV SCH (08:02)
[2022-05-04] MEDS ORDERED: POTASSIUM PHOS 3 MMOL/1 ML INFUSION IV STA (08:03)
[2022-05-04] MEDS ORDERED: MAGNESIUM SULFATE / D5W 1 GM/100 ML BAG IV ONE (08:03)
[2022-05-04] MEDS ORDERED: POTASSIUM PHOSPHATE 30 MMOL in SODIUM CHLORIDE 0.9% 500 ML IV ONE (08:15)
[2022-05-04] MEDS: MAGNESIUM OXIDE 400 MG TAB PO SCH ×2 (09:02→21:04)
--- NOTE | 2022-05-04 09:33 | Cardiology Progress Note ---
Date of Service May 04, 2022 Assessment & Plan (1) Abnormal CT scan: (2) Abdominal pain: (3) Sepsis: (4) Ileocolitis: (5) Elevated troponin I level: (6) Abdominal pain, acute, right lower quadrant: (7) Abnormal EKG: (8) Vomiting: (9) Coronary atherosclerosis of tetlin coronary vessel: (10) Mitral stenosis: (11) Chronic heart failure with preserved ejection fraction (HFpEF): Plan I think the patient is at her baseline weight. She is tolerating a diet and I will switch her over to p.o. Lasix. Magnesium and potassium are being supplemented by medicine. Admission and Anticipated Discharge Date Admission Date: April 27, 2022 Subjective The patient had an uneventful night. Review of Systems Review of Systems: Review of Systems: See HPI for pertinent positives. All other 10 point review of systems are negative. Physical Exam Physical Exam: General: no acute distress and stated age Head: normocephalic, no masses, lesions, tenderness or abnormalities Eyes: conjunctiva are pink and non-injected, sclera clear Neck: supple, no adenopathy, no bruits, normal jugular venous pulse, no hepatojugular reflux Chest: normal shape and normal respiratory effort Lungs: clear to auscultation and percussion Cardiac Exam: - regular rate & rhythm, no murmurs gallops or rubs - normal S1, normal S2 Pulses: 2(+) throughout Abdomen: abdomen soft, non-tender, no abnormal masses and no hepatosplenomegaly Musculoskeletal: no gait disturbance, no joint inflammation, no deforming arthritis Extremities: no edema and no cyanosis Neuro: grossly normal exam Results & Data ([facility]) Vital Signs (Past 12 Hours) Vital Signs Temp Pulse Resp BP BP Pulse Ox O2 Del Method 05/04/22 08:00 36.8 C 65 18 136/78 97 Nasal Cannula 05/04/22 03:00 36.9 C 67 18 148/66 H 92 Nasal Cannula 05/03/22 23:12 37.4 C 83 18 130/60 96 Nasal Cannula O2 Flow Rate 05/04/22 08:00 2 05/04/22 03:00 2.5 05/03/22 23:12 Laboratory Results Laboratory Results - last 24 hr 05/03/22 05/03/22 05/03/22 06:05 11:21 16:43 WBC RBC Hgb Hct MCV MCH MCHC RDW Std Deviation RDW Coeff of Vanita Plt Count MPV Absolute Nucleated RBC Nucleated RBC % (auto) Sodium 137 Potassium 3.1 L Chloride 101 Carbon Dioxide 26 Anion Gap 10 BUN 25 H Creatinine 0.80 Est Cr Clr Drug Dosing 56.1 Est GFR ( Amer) 80.1 Est GFR (Non-Af Amer) 69.1 BUN/Creatinine Ratio 31.3 H Glucose 121 H POC Glucose 161 H 190 H Calcium 8.0 L Phosphorus 2.0 L Magnesium 1.5 L 05/03/22 05/04/22 05/04/22 19:41 06:28 06:28 WBC 14.75 H RBC 4.45 Hgb 9.6 L Hct 30.0 L MCV 67.4 L MCH 21.6 L MCHC 32.0 RDW Std Deviation 58.1 H RDW Coeff of Vanita 25.2 H Plt Count 263 MPV 10.5 Absolute Nucleated RBC 0.04 H Nucleated RBC % (auto) 0.3 Sodium 137 Potassium 3.8 D Chloride 101 Carbon Dioxide 28 Anion Gap 8 BUN 26 H Creatinine 0.89 Est Cr Clr Drug Dosing 49.8 Est GFR ( Amer) 70.4 Est GFR (Non-Af Amer) 60.8 BUN/Creatinine Ratio 29.2 H Glucose 178 H POC Glucose 214 H Calcium 7.5 L Phosphorus 1.6 L Magnesium 1.6 L 05/04/22 07:53 WBC RBC Hgb Hct MCV MCH MCHC RDW Std Deviation RDW Coeff of Vanita Plt Count MPV Absolute Nucleated RBC Nucleated RBC % (auto) Sodium Potassium Chloride Carbon Dioxide Anion Gap BUN Creatinine Est Cr Clr Drug Dosing Est GFR ( Amer) Est GFR (Non-Af Amer) BUN/Creatinine Ratio Glucose POC Glucose 180 H Calcium Phosphorus Magnesium Medications Administered Current Inpatient Medications Acetaminophen (Acetaminophen 500 Mg Tab) 1,000 mg PO Q8H DESIREE Stop: 06/01/22 11:59 Last Admin: 05/04/22 05:38 Dose: 1,000 mg Amlodipine Besylate (Amlodipine Besylate 5 Mg Tab) 5 mg PO QAM DESIREE Stop: 05/28/22 08:59 Last Admin: 04/28/22 08:09 Dose: 5 mg Aspirin (Aspirin 81 Mg Ectab) 81 mg PO DAILY DESIREE Stop: 05/28/22 08:59 Last Admin: 05/04/22 08:02 Dose: 81 mg Cinacalcet (Cinacalcet Hcl 30 Mg Tab) 30 mg PO DAILY DESIREE Stop: 05/28/22 08:59 Last Admin: 05/04/22 08:02 Dose: 30 mg Clopidogrel Bisulfate (Clopidogrel Bisulfate 75 Mg Tab) 75 mg PO QAM DESIREE Stop: 05/28/22 08:59 Last Admin: 05/04/22 08:02 Dose: 75 mg Dextrose (Dextrose 50% 50 Ml Syringe) 25 - 50 ml IV UD PRN; Protocol PRN Reason: Hypoglycemia Protocol Stop: 05/27/22 19:03 Furosemide (Furosemide 40 Mg Tab) 40 mg PO [id number] DESIREE Stop: 06/03/22 16:59 Glucagon (Glucagon For Inj 1 Mg Vial) 1 mg SQ UD PRN; Protocol PRN Reason: Hypoglycemia Protocol Stop: 05/27/22 19:03 Glucose (Glucose 40% Gel 15 Gm Tube) 15 - 30 gm PO UD PRN; Protocol PRN Reason: Hypoglycemia Protocol Stop: 05/27/22 19:03 Glucose (Glucose 10 Tab/Tube) 4 - 8 tab PO UD PRN; Protocol PRN Reason: Hypoglycemia Treatment Stop: 05/27/22 19:03 Heparin Sodium (Porcine) (Heparin Sod 5,000 Unit/0.5 Ml Vial) 5,000 units SQ Q12 DESIREE Stop: 05/28/22 20:59 Last Admin: 05/04/22 08:02 Dose: 5,000 units Magnesium Sulfate/Dextrose (Magnesium Sulfate / D5w) 1 gm in 100 mls @ 50 mls/hr IV ONE ONE Stop: 05/04/22 10:02 Last Admin: 05/04/22 09:12 Dose: 50 mls/hr Potassium Phosphate 30 mmol/ (Sodium Chloride) 510 mls @ 88 mls/hr IV ONE ONE Stop: 05/04/22 14:02 Last Admin: 05/04/22 09:02 Dose: 88 mls/hr Insulin Aspart (Insulin Aspart Per Unit) 0 units SC ACHS DESIREE Stop: 05/27/22 20:59 Last Admin: 05/04/22 07:59 Dose: 13 units Insulin Glargine (Lantus Per Unit Charge) 0 - 20 units SQ BID DESIREE Stop: 05/27/22 20:59 Last Admin: 05/04/22 07:59 Dose: 20 units Losartan Potassium (Losartan Potassium 25 Mg Tab) 25 mg PO DAILY DESIREE Stop: 05/28/22 08:59 Last Admin: 05/04/22 08:02 Dose: 25 mg Magnesium Oxide (Magnesium Oxide 400 Mg Tab) 400 mg PO DAILY DESIREE Stop: 05/28/22 08:59 Last Admin: 04/30/22 07:48 Dose: 400 mg Magnesium Oxide (Magnesium Oxide 400 Mg Tab) 400 mg PO BID DESIREE Stop: 05/05/22 21:01 Last Admin: 05/04/22 09:02 Dose: 400 mg Metoprolol Tartrate (Metoprolol Tartrate 25 Mg Tab) 12.5 mg PO BID DESIREE Stop: 05/27/22 20:59 Last Admin: 05/04/22 08:01 Dose: 12.5 mg Miscellaneous (Carbohydrates For Hypoglycemia ) 15 - 30 gm PO UD PRN PRN Reason: Hypoglycemia Protocol Stop: 05/27/22 19:03 Oxycodone HCl (Oxycodone Hcl Ir 5 Mg Tab (Immediate Release)) 5 mg PO Q4H PRN PRN Reason: Pain Stop: 05/14/22 23:48 Last Admin: 05/01/22 05:11 Dose: 5 mg Pantoprazole Sodium (Pantoprazole 40 Mg Tab) 40 mg PO DAILY DESIREE Stop: 05/28/22 08:59 Last Admin: 05/04/22 08:02 Dose: 40 mg Simvastatin (Simvastatin 10 Mg Tab) 10 mg PO DAILY [facility] Stop: 05/28/22 08:59 Last Admin: 04/30/22 07:48 Dose: 10 mg (1) Sepsis Sepsis acute organ dysfunction status: without acute organ dysfunction Sepsis type: sepsis due to unspecified organism Qualified Code(s): A41.9 - Sepsis, unspecified organism (2) Vomiting Nausea presence: with nausea Vomiting type: unspecified Qualified Code(s): R11.2 - Nausea with vomiting, unspecified
--- NOTE | 2022-05-04 11:52 | Hospitalist Progress Note ---
Date of Service May 04, 2022 Assessment & Plan (1) Acute respiratory failure: Plan: - respiratory 2/2 fluid overload - She had an +8L fluid balance since admission noted on 04/30. She went into respiratory failure requiring high flow oxygen and received more aggressive IV diuresis and metolazone. - she is breathing well on 2LPM via nasal canula. - Cont diuresis - switched to PO by Cardiology. - Appreciate nephrology and cardiology assistance with this effort. - Cont Kendall in place. - Strict I/Os. - Cont PCU monitoring. - Ambulate with assist as tolerated - wean O2 - ambulatory pulse ox evaluation ordered - patient is for rehab on discharge (2) Ileocolitis: Plan: Uncertain cause, stool studies obtained this am are negative. She also has the appearance of an ileus on KUB which likely caused the issue of no BM for several days. - resuscitated on admission aggressively given her initial clinical picture and elevated lactate which has now resolved. - now s/p broad spectrum abx after 8 days of therapy - Vanc PO stopped with negative stool culture. - abdominal pain improved and diarrhea also improved - She is tolerating PO and will continue to advance diet to ADA solid food - Outpatient GI follow-up for colonoscopy. - will monitor for now (3) Colon distention: Plan: - Improved - s/p abx as above - Ambulate as tolerated. - Cont supportive care efforts. - Diet to regular (4) Abnormal EKG: Plan: Admitting troponin level 395, minimally up trended, admitting EKG with sinus tachycardia and ST depression in lateral leads. 04/27 echo: EF greater than 70%, hyperdynamic LV systolic function, grade 1 diastolic dysfunction. No segmental left ventricular wall motion abnormalities. Severe mitral annular calcification noted. Likely demand ischemia secondary to acute sepsis. No further cardiology workup recommended at this time. (5) Anemia: Plan: Baseline hemoglobin around 8.7. She was given a blood transfusion on the agustina of 04/29, Hb is improved and stable. (6) Type 2 diabetes mellitus without complications: Plan: Glucose at goal, cont basal/bolus insulin. A1C at goal. (7) Ovarian cyst: Plan: nonurgent gynecology consultation for further investigation as outpatient. (8) Pulmonary nodule: Plan: repeat future CT scan in 6 months for stability. (9) Hyperparathyroidism: Plan: Takes cinacalcet. Follows with endocrinology at [facility] [place]. (10) HTN (hypertension): Plan: - normotensive - continue on metoprolol and losartan - continue to hold amlodipine as patient's BP has been stable Plan DVT proph: heparin SC DNR/DNI Dispo-cont PCU monitoring. Benitez Gordillo MD [facility] Medicine Admission and Anticipated Discharge Date Admission Date: April 27, 2022 Subjective Patient with HTN, HLD, HFpEF, CAD, DM2, h/o CVA, hyperparathyroidism, GERD presenting with collitis and volume overload. Given IV abx with improvement in diarrhea. IV lasix with improvement in oxygenation and volume status. Patient is in a bad mood this morning, seems discouraged. Denied chest pain, shortness of breath, n/v/d, abdominal pain, dysuria. Has a cough that is unchanged with yellowish sputum occasionally. Reports 1-2 episodes of bowel movements and unsure if it is diarrhea or not. Review of Systems Review of Systems: All systems were reviewed and negative except as indicated on subjective above. Physical Exam Physical Exam: CONSTITUTIONAL: obese, generally, NAD, appears clinically improved, slightly disheveled EYES: normal conjunctivae, no scleral icterus ENT: external ear and nose normal, MMM NECK: trachea midline RESPIRATORY: no wheezing heard, no increased respiratory effort, bibasilar crackles noted CARDIOVASCULAR: regular rate and rhythm, S1 and 2 heard without murmurs, gallops or rubs, no JVD, no peripheral edema CHEST: inspection of chest was normal GASTROINTESTINAL: soft, NT/ND, no guarding. MUSCULOSKELETAL: generalized weakness, she is a 1 assist, head is normocephalic and atraumatic, SKIN: warm and dry NEUROLOGIC: CN 2-12 grossly intact, no sensory deficit, normal cognition, normal speech PSYCHIATRIC: alert cooperative and oriented to person, place and time. Results & Data Results & Data ([facility]) Vital Signs (Past 12 Hours) Vital Signs Temp Pulse Resp BP BP Pulse Ox O2 Del Method 05/04/22 08:00 Nasal Cannula 05/04/22 08:00 36.8 C 65 18 136/78 97 Nasal Cannula 05/04/22 03:00 36.9 C 67 18 148/66 H 92 Nasal Cannula O2 Flow Rate 05/04/22 08:00 2 05/04/22 08:00 2 05/04/22 03:00 2.5 Diagnostic Findings Laboratory Results WBC 14.75 K/ul (4.8-10.8) H 05/04/22 06:28 RBC 4.45 M/uL (3.93-5.22) 05/04/22 06:28 Hgb 9.6 g/dl (12.0-16.0) L 05/04/22 06:28 Hct 30.0 % (34.1-44.9) L 05/04/22 06:28 MCV 67.4 fL (80.0-100.0) L 05/04/22 06:28 MCH 21.6 pg (25.0-34.0) L 05/04/22 06:28 MCHC 32.0 g/dL (32.0-36.0) 05/04/22 06:28 RDW Std Deviation 58.1 fL (36.4-46.3) H 05/04/22 06:28 RDW Coeff of Vanita 25.2 % (11.5-14.5) H 05/04/22 06:28 Plt Count 263 K/uL (130-400) 05/04/22 06:28 MPV 10.5 fL (9.4-12.3) 05/04/22 06:28 Immature Gran % (Auto) 2.2 % 05/03/22 06:05 Neut % (Auto) 58.7 % 05/03/22 06:05 Lymph % (Auto) 17.7 % 05/03/22 06:05 [place]pson % (Auto) 15.6 % 05/03/22 06:05 Eos % (Auto) 5.0 % 05/03/22 06:05 Baso % (Auto) 0.8 % 05/03/22 06:05 Neut # (Auto) 8.42 K/uL (1.4-6.5) H 05/03/22 06:05 Lymph # (Auto) 2.54 K/uL (1.2-3.4) 05/03/22 06:05 [place]pson # (Auto) 2.24 K/uL (0.24-0.82) H 05/03/22 06:05 Eos # (Auto) 0.72 K/uL (0-0.50) H 05/03/22 06:05 Baso # (Auto) 0.11 K/uL (0-0.2) 05/03/22 06:05 Immature Gran # (Auto) 0.32 K/uL (0.00-0.02) H 05/03/22 06:05 Absolute Nucleated RBC 0.04 K/uL (0-0) H 05/04/22 06:28 Nucleated RBC % (auto) 0.3 % 05/04/22 06:28 Polychromasia 2+ 05/03/22 06:05 Hypochromasia Present 04/28/22 04:13 Poikilocytosis Present 05/03/22 06:05 Anisocytosis Present 05/03/22 06:05 Microcytosis Present 05/03/22 06:05 Target Cells 1+ 05/03/22 06:05 Tear Drop Cells 1+ 04/28/22 04:13 Ovalocytes 1+ 04/27/22 20:23 Echinocytes 2+ 05/03/22 06:05 Acanthocytes (Spur) 2+ 05/03/22 06:05 Schistocytes 1+ 05/03/22 06:05 Peripher Smr Path Cons 04/27/22 16:33 PT 13.0 Seconds (9.0-12.0) H 04/27/22 20:23 INR 1.2 (0.9-1.1) H 04/27/22 20:23 APTT 57.0 Seconds (21.0-31.0) H* 04/28/22 14:12 PTT Ratio 2.1 04/28/22 14:12 ABG pH 7.40 (7.35-7.45) 04/30/22 21:59 ABG pCO2 32 mmHg (35-46) L 04/30/22 21:59 ABG pO2 73 mmHg (80-95) L 04/30/22 21:59 ABG HCO3 20 mmol/L (19-24) 04/30/22 21:59 ABG O2 Saturation 97.4 % (90-95) H 04/30/22 21:59 ABG Base Excess -4.0 mEq/L (-9-1.8) 04/30/22 21:59 Jose Test POS (Pos) 04/30/22 21:59 Oxygen Given FiO2 30% 04/30/22 21:59 Sodium 137 mmol/L (136-145) 05/04/22 06:28 Potassium 3.8 mmol/L (3.5-5.1) D 05/04/22 06:28 Chloride 101 mmol/L (98-107) 05/04/22 06:28 Carbon Dioxide 28 mmol/L (21-32) 05/04/22 06:28 Anion Gap 8 (3-11) 05/04/22 06:28 BUN 26 mg/dl (6-23) H 05/04/22 06:28 Creatinine 0.89 mg/dl (0.6-1.2) 05/04/22 06:28 Est Cr Clr Drug Dosing 49.8 ml/min 05/04/22 06:28 Est GFR ( Amer) 70.4 ml/min 05/04/22 06:28 Est GFR (Non-Af Amer) 60.8 ml/min 05/04/22 06:28 BUN/Creatinine Ratio 29.2 (10-20) H 05/04/22 06:28 Glucose 178 mg/dl (70-99(Fasting)) H 05/04/22 06:28 POC Glucose 281 mg/dl (70-99) H 05/04/22 11:49 Lactate 1.5 mmol/L (0.4-2.0) 04/30/22 00:36 Calcium 7.5 mg/dl (8.5-10.1) L 05/04/22 06:28 Phosphorus 1.6 mg/dl (2.5-4.9) L 05/04/22 06:28 Magnesium 1.6 mg/dl (1.7-2.4) L 05/04/22 06:28 Iron < 10 mcg/dl (35-150) L 04/29/22 07:05 TIBC TNP 04/29/22 07:05 Unsaturated IBC 308 mcg/dl (155-355) 04/29/22 07:05 Transferrin % Sat TNP 04/29/22 07:05 Ferritin 59.7 ng/ml (8-388) 04/29/22 07:05 Total Bilirubin 1.3 mg/dl (0.2-1.0) H 04/28/22 04:13 AST 30 U/L (13-39) 04/28/22 04:13 ALT 14 U/L (7-52) 04/28/22 04:13 Alkaline Phosphatase 42 U/L (34-104) 04/28/22 04:13 Troponin I High Sens 540.7 pg/ml (0-14) H* 04/28/22 04:13 B-Natriuretic Peptide 416 pg/ml (0-100) H 05/01/22 05:41 Total Protein 6.3 gm/dl (6.0-8.3) 04/28/22 04:13 Albumin 3.1 gm/dl (3.4-5.0) L 04/28/22 04:13 Globulin 3.2 gm/dl (2.5-4.0) 04/28/22 04:13 Albumin/Globulin Ratio 1.0 (0.9-2) 04/28/22 04:13 Lipase 16 U/L (11-82) 04/27/22 12:51 Vitamin B12 371 pg/ml (180-914) 04/29/22 07:05 Folate > 22.30 ng/ml (>5.38) 04/29/22 07:05 Procalcitonin 2.72 ng/ml (0-0.5) H 04/30/22 06:12 Urine Color Yellow 04/27/22 14:28 Urine Appearance Clear (Clear) 04/27/22 14:28 Urine pH 5.0 (4.5-7.5) 04/27/22 14:28 Ur Specific [place] 1.015 (1.000-1.030) 04/27/22 14:28 Urine Protein Trace (Negative) H 04/27/22 14:28 Urine Glucose (UA) Negative (Negative) 04/27/22 14:28 Urine Ketones Trace (Negative) H 04/27/22 14:28 Urine Blood Negative (Negative) 04/27/22 14:28 Urine Nitrite Negative (Negative) 04/27/22 14:28 Urine Bilirubin Negative (Negative) 04/27/22 14:28 Urine Urobilinogen Negative (Negative) 04/27/22 14:28 Ur Leukocyte Esterase Trace (Negative) H 04/27/22 14:28 Urine WBC (Auto) 1-5 /hpf (0-5) 04/27/22 14:28 Urine RBC (Auto) 0-4 /hpf (0-4) 04/27/22 14:28 U Hyaline Cast (Auto) 1-5 /lpf (0-5) 04/27/22 14:28 U Epithel Cells (Auto) 5-10 /lpf (0-5) H 04/27/22 14:28 Urine Bacteria (Auto) Negative (Negative) 04/27/22 14:28 Stl C. cayetanensis PCR Not Detected (NotDetected) 05/02/22 04:01 Stool Rotavirus A PCR Not Detected (NotDetected) 05/02/22 04:01 Stl Adenov F 40/41 PCR Not Detected (NotDetected) 05/02/22 04:01 Stool Astrovirus (PCR) Not Detected (NotDetected) 05/02/22 04:01 Stool Campylobacter PCR Not Detected (NotDetected) 05/02/22 04:01 Stl C. diff Tox B Gene Negative Cdiff Gene (Neg) 05/02/22 04:01 Stool Cryptosporidium PCR Not Detected (NotDetected) 05/02/22 04:01 Stl E.coli Shiga Tox PCR Not Detected (NotDetected) 05/02/22 04:01 Stl Enterotoxigenic E PCR Not Detected (NotDetected) 05/02/22 04:01 Stool EPEC (PCR) Not Detected (NotDetected) 05/02/22 04:01 Stool EAEC (PCR) Not Detected (NotDetected) 05/02/22 04:01 Stl E. histolytica PCR Not Detected (NotDetected) 05/02/22 04:01 Stool Giardia Lamblia PCR Not Detected (NotDetected) 05/02/22 04:01 Stool Salmonella PCR Not Detected (NotDetected) 05/02/22 04:01 Stool Sapovirus (PCR) Not Detected (NotDetected) 05/02/22 04:01 Stl P. shigelloides PCR Not Detected (NotDetected) 05/02/22 04:01 Stl Shigella/EIEC PCR Not Detected (NotDetected) 05/02/22 04:01 St Y.enterocolitica PCR Not Detected (NotDetected) 05/02/22 04:01 Stool Vibrio (PCR) Not Detected (NotDetected) 05/02/22 04:01 Stl Vibrio cholerae PCR Not Detected (NotDetected) 05/02/22 04:01 Stl Norovirus GI/GII PCR Not Detected (NotDetected) 05/02/22 04:01 SARS-CoV-2, RNA, NAAT NEGATIVE (NEGATIVE) 04/27/22 13:30 Blood Type A Positive 04/29/22 17:09 Antibody Screen NEGATIVE 04/29/22 17:09 Crossmatch See Detail 04/29/22 17:09 Impressions Abdomen/Pelvis CT 04/27/22 13:[address] WITH IV CONTRAST CT DOSE: 908.81 mGycm HISTORY: Right lower quadrant pain. TECHNIQUE: Multiaxial CT images of the abdomen and pelvis were performed following the use of intravenous contrast. A dose lowering technique was utilized adhering to the principles of ALARA. COMPARISON STUDY: None. FINDINGS: Interstitial thickening at the lung bases is noted. This may be chronic. There are mild dependent changes at the lung bases. Partially visualized 6 mm nodule within the left lower lobe there is an additional 8 mm irregular nodule within the left lower lobe on image 29. No pneumoperitoneum. No pneumatosis. No fractures within the visualized osseous structures. The heart is borderline enlarged. Small right upper quadrant abdominal wall defect/hernia measuring 2 cm. This favors a prior laparoscopic port site given the prior cholecystectomy. There are are scattered dropped gallstones within the right side of the abdomen and within the anterior abdominal wall measuring up to 2.3 cm. Nodular contour to the liver consistent with cirrhosis. Moderate bile duct dilatation likely due to the patient's postcholecystectomy state. The spleen, pancreas, and right adrenal gland are unremarkable. There is mild thickening of the left adrenal gland. There is a 4 mm stone within the right kidney. No left renal calculi. No ureteral calculi. No hydronephrosis. There are few scattered hypodensities within the kidneys. The majority these are technically too small to characterize but statistically represent cysts. No retroperitoneal lymphadenopathy. 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 No pelvic lymphadenopathy or pelvic free fluid. The bladder is unremarkable. Prior hysterectomy. There is a 7.2 cm right ovarian cyst. This could be pathologic in a postmenopausal female. Colonic diverticulosis. No evidence for acute diverticulitis. Mild circumferential thickening within the ascending colon with mild pericolonic fat stranding. There is also mild circumferential thickening of the distal terminal ileum near the ileocecal valve. This is consistent with a nonspecific ileocolitis and favors an infectious or inflammatory process. A portal colopathy could also a similar appearance but is considered less likely. No evidence for bowel obstruction. IMPRESSION: 1. Mild circumferential thickening within the ascending colon with mild pericolonic fat stranding. There is also mild circumferential thickening of the distal terminal ileum near the ileocecal valve. This is consistent with a nonspecific ileocolitis and favors an infectious or inflammatory process. A portal colopathy could also a similar appearance but is considered less likely. 2. Cirrhotic liver. 3. There are 2 irregular nodule within the left lower lobe with the largest measuring 8 mm. Follow-up chest CT in 6 months is recommended to ensure stability/resolution. 4. Right-sided nephrolithiasis. No ureteral stones. No hydronephrosis. 5. A 7.2 cm right ovarian cyst. This is considered to be pathologic in a postmenopausal female. Follow-up nonemergent gynecologic consultation recommended. 6. Additional findings as described above. ACT 112: Negative or not required by law. Electronically signed by: Pee Parker M.D. 04/27/2022 3:01 PM Venous Doppler Study 04/27/22 16:59 BILATERAL LOWER EXTREMITY VENOUS DOPPLER HISTORY: Lower extremity pain. COMPARISON STUDY: None. FINDINGS: There is normal compressibility, flow, and augmentation within the bilateral lower extremity deep venous systems. IMPRESSION: No DVT within the right or left lower extremity. ACT 112: Negative or not required by law. Electronically signed by: Pee Parker M.D. 04/27/2022 5:59 PM KUB X-Ray 05/02/22 07:00 KUB HISTORY: f/u colon dilatation COMPARISON: KUB 05/01/2022. FINDINGS: Prior cholecystectomy. Borderline distended gas-filled colon measuring up to 6 cm. This is similar to the prior study. Nondilated gas-filled loops of small bowel again noted. Scattered throughout gallstone seen within the right side of the abdomen. Trace bilateral pleural effusions. No renal calculi. No ureteral calculi. No pneumoperitoneum or pneumatosis. IMPRESSION: No significant change in the borderline colonic distention. ACT 112: Negative or not required by law. Electronically signed by: Pee Parker M.D. 05/02/2022 10:39 AM Chest X-Ray 05/03/22 07:00 XR chest 1V portable CLINICAL HISTORY: Hypoxia. COMPARISON STUDY: Chest radiograph May 01, 2022. FINDINGS: There is no pneumothorax. Interstitial pulmonary edema is noted. This has improved since prior exam. Small bilateral pleural effusions, right larger left, have also improved. Cardiomegaly is noted. Hazy right basilar opacity has decreased. IMPRESSION: Pulmonary edema with small bilateral pleural effusions and bibasilar opacities. Findings have moderately improved since exam of May 01, 2022. ACT 112: Negative or not required by law. Electronically signed by: Karson Goddard M.D. 05/03/2022 8:38 AM Medications Administered Current Inpatient Medications Acetaminophen (Acetaminophen 500 Mg Tab) 1,000 mg PO Q8H [facility] Stop: 06/01/22 11:59 Last Admin: 05/04/22 05:38 Dose: 1,000 mg Amlodipine Besylate (Amlodipine Besylate 5 Mg Tab) 5 mg PO QAM DESIREE Stop: 05/28/22 08:59 Last Admin: 04/28/22 08:09 Dose: 5 mg Aspirin (Aspirin 81 Mg Ectab) 81 mg PO DAILY DESIREE Stop: 05/28/22 08:59 Last Admin: 05/04/22 08:02 Dose: 81 mg Cinacalcet (Cinacalcet Hcl 30 Mg Tab) 30 mg PO DAILY DESIREE Stop: 05/28/22 08:59 Last Admin: 05/04/22 08:02 Dose: 30 mg Clopidogrel Bisulfate (Clopidogrel Bisulfate 75 Mg Tab) 75 mg PO QAM DESIREE Stop: 05/28/22 08:59 Last Admin: 05/04/22 08:02 Dose: 75 mg Dextrose (Dextrose 50% 50 Ml Syringe) 25 - 50 ml IV UD PRN; Protocol PRN Reason: Hypoglycemia Protocol Stop: 05/27/22 19:03 Furosemide (Furosemide 40 Mg Tab) 40 mg PO [id number] DESIREE Stop: 06/03/22 16:59 Glucagon (Glucagon For Inj 1 Mg Vial) 1 mg SQ UD PRN; Protocol PRN Reason: Hypoglycemia Protocol Stop: 05/27/22 19:03 Glucose (Glucose 40% Gel 15 Gm Tube) 15 - 30 gm PO UD PRN; Protocol PRN Reason: Hypoglycemia Protocol Stop: 05/27/22 19:03 Glucose (Glucose 10 Tab/Tube) 4 - 8 tab PO UD PRN; Protocol PRN Reason: Hypoglycemia Treatment Stop: 05/27/22 19:03 Heparin Sodium (Porcine) (Heparin Sod 5,000 Unit/0.5 Ml Vial) 5,000 units SQ Q12 DESIREE Stop: 05/28/22 20:59 Last Admin: 05/04/22 08:02 Dose: 5,000 units Potassium Phosphate 30 mmol/ (Sodium Chloride) 510 mls @ 88 mls/hr IV ONE ONE Stop: 05/04/22 14:02 Last Admin: 05/04/22 09:02 Dose: 88 mls/hr Insulin Aspart (Insulin Aspart Per Unit) 0 units SC ACHS DESIREE Stop: 05/27/22 20:59 Last Admin: 05/04/22 07:59 Dose: 13 units Insulin Glargine (Lantus Per Unit Charge) 0 - 20 units SQ BID DESIREE Stop: 05/27/22 20:59 Last Admin: 05/04/22 07:59 Dose: 20 units Losartan Potassium (Losartan Potassium 25 Mg Tab) 25 mg PO DAILY DESIREE Stop: 05/28/22 08:59 Last Admin: 05/04/22 08:02 Dose: 25 mg Magnesium Oxide (Magnesium Oxide 400 Mg Tab) 400 mg PO DAILY DESIREE Stop: 05/28/22 08:59 Last Admin: 04/30/22 07:48 Dose: 400 mg Magnesium Oxide (Magnesium Oxide 400 Mg Tab) 400 mg PO BID DESIREE Stop: 05/05/22 21:01 Last Admin: 05/04/22 09:02 Dose: 400 mg Metoprolol Tartrate (Metoprolol Tartrate 25 Mg Tab) 12.5 mg PO BID DESIREE Stop: 05/27/22 20:59 Last Admin: 05/04/22 08:01 Dose: 12.5 mg Miscellaneous (Carbohydrates For Hypoglycemia ) 15 - 30 gm PO UD PRN PRN Reason: Hypoglycemia Protocol Stop: 05/27/22 19:03 Oxycodone HCl (Oxycodone Hcl Ir 5 Mg Tab (Immediate Release)) 5 mg PO Q4H PRN PRN Reason: Pain Stop: 05/14/22 23:48 Last Admin: 05/01/22 05:11 Dose: 5 mg Pantoprazole Sodium (Pantoprazole 40 Mg Tab) 40 mg PO DAILY DESIREE Stop: 05/28/22 08:59 Last Admin: 05/04/22 08:02 Dose: 40 mg Simvastatin (Simvastatin 10 Mg Tab) 10 mg PO DAILY DESIREE Stop: 05/28/22 08:59 Last Admin: 04/30/22 07:48 Dose: 10 mg
[2022-05-04] MEDS: FUROSEMIDE 40 MG TAB PO SCH (16:45)
[2022-05-05] MEDS: ACETAMINOPHEN 500 MG TAB PO SCH ×3 (05:36→21:10)
[2022-05-05] MEDS ORDERED: SODIUM CHLORIDE 0.9% 1000ML 1,000 ML IV SCH (06:15)
[2022-05-05 06:43] LABS: BUN Creatinine Ratio 35.9 (10-20); Calcium 7.8 mg/dl (8.5-10.1); Creatinine Clr Calc Pharmacy 47.9 ml/min; Est GFR (African American) 67.7 ml/min; Est GFR (Non-African American) 58.4 ml/min; Hematocrit (blood only) 24.5 % (34.1-44.9); Hemoglobin 7.7 g/dl (12.0-16.0); Magnesium 1.6 mg/dl (1.7-2.4); Mean Corpuscular Hemoglobin 21.2 pg (25.0-34.0); Mean Corpuscular Hgb Conc 31.4 g/dL (32.0-36.0); Mean Corpuscular Volume 67.3 fL (80.0-100.0); Mean Platelet Volume 11.3 fL (9.4-12.3); Nucleated RBC # (auto) 0.06 K/uL (0-0); Nucleated RBC % (auto) 0.3 %; Phosphorus 3.5 mg/dl (2.5-4.9); Platelet Count 289 K/uL (130-400); Potassium 4.5 mmol/L (3.5-5.1); RDW Coefficient of Variation 25.2 % (11.5-14.5); RDW Standard Deviation 57.6 fL (36.4-46.3); Red Blood Count 3.64 M/uL (3.93-5.22)
[2022-05-05] MEDS ORDERED: MAGNESIUM SULFATE / D5W 1 GM/100 ML BAG IV ONE (07:19)
--- NOTE | 2022-05-05 07:46 | Surgery Progress Note ---
Date of Service May 05, 2022 Assessment & Plan (1) GI bleed: Plan: Also history of ileocolitis which appear to be improving Currently monitoring her H&H-transfuse as appropriate Anticoagulant and antiplatelet medication has been held If patient continued bleeding may consider bleeding scan and interventional radiology Admission and Anticipated Discharge Date Admission Date: April 27, 2022 Subjective Patient with melena during the night Some drop in her H&H Blood pressure stable She has been on subcu heparin, Plavix, and I believe baby aspirin which have been held Patient has been tolerating her diet and has no significant abdominal pain Review of Systems Review of Systems: All systems reviewed & are unremarkable except as noted in HPI & below Physical Exam Physical Exam: Mildly ill-appearing female laying in her bed She does have oxygen in place but is breathing comfortably No complaints of abdominal pain Her abdomen is soft she has minimal tenderness Results & [facility]) Vital Signs (Past 12 Hours) Vital Signs Temp Pulse Resp BP BP Pulse Ox O2 Del Method 05/05/22 07:11 37.2 C 109 H 17 123/66 95 Nasal Cannula 05/05/22 03:02 36.6 C 102 H 18 122/64 93 Nasal Cannula 05/05/22 00:21 36.5 C 90 20 112/66 95 Nasal Cannula 05/04/22 21:06 Nasal Cannula O2 Flow Rate 05/05/22 07:11 2 05/05/22 03:02 2 05/05/22 00:21 2 05/04/22 21:06 2 PG Care Time/CCT Total # of Minutes Spent Total Time Spent with Patient: Total time spent is greater than 50% in coordination of care (as documented) at patient's floor/unit and/or counseling patient: Coding Level of Care Code 60712 Inpt Consult Level 2 Diagnoses GI bleed K92.2
[2022-05-05] MEDS: INSULIN ASPART PER UNIT SC SCH ×4 (07:50→21:08)
[2022-05-05] MEDS: LANTUS PER UNIT CHARGE SQ SCH ×2 (07:52→21:09)
[2022-05-05] MEDS: PANTOprazole 40 MG TAB PO SCH (07:58)
[2022-05-05] MEDS: FUROSEMIDE 40 MG TAB PO SCH ×2 (07:58→16:19)
[2022-05-05] MEDS: MAGNESIUM OXIDE 400 MG TAB PO SCH ×2 (07:58→21:25)
[2022-05-05] MEDS: CINACALCET HCL 30 MG TAB PO SCH (07:58)
[2022-05-05] MEDS: LOSARTAN POTASSIUM 25 MG TAB PO SCH (07:59)
[2022-05-05] MEDS: METOPROLOL TARTRATE 25 MG TAB PO SCH ×2 (07:59→21:18)
[2022-05-05 08:29] LABS: Hematocrit (blood only) 24.7 % (34.1-44.9); Mean Corpuscular Hemoglobin 22.1 pg (25.0-34.0); Mean Corpuscular Hgb Conc 32.4 g/dL (32.0-36.0); Mean Corpuscular Volume 68.2 fL (80.0-100.0); Mean Platelet Volume 11.4 fL (9.4-12.3); Nucleated RBC # (auto) 0.05 K/uL (0-0); Nucleated RBC % (auto) 0.2 %; Platelet Count 287 K/uL (130-400); RDW Coefficient of Variation 25.7 % (11.5-14.5); Red Blood Count 3.62 M/uL (3.93-5.22); White Blood Count 24.57 K/ul (4.8-10.8)
[2022-05-05] MEDS: metroNIDAZOLE 500 MG/100 ML BAG IV SCH ×2 (12:22→17:28)
[2022-05-05] MEDS: CEFEPIME 2,000 MG in SYRINGE 0 ML IV SCH (12:23)
[2022-05-05] MEDS ORDERED: LAVAGE SOLUTION 4000ML PO SCH (12:30)
--- NOTE | 2022-05-05 12:33 | Hospitalist Progress Note ---
Date of Service May 05, 2022 Assessment & Plan (1) GI bleed: Plan: - noted 2 maroon colored stools this morning 05/05/2022 that were large - HR elevated slightly, responded to IVF - hgb 8.7-->8.0 - active type and screen - NPO midnight tonight - GI reconsulted - plan for EGD/colonoscopy 05/06/2022 - continue to monitor (2) Acute respiratory failure: Plan: - respiratory 2/2 fluid overload - She had an +8L fluid balance since admission noted on 04/30. She went into respiratory failure requiring high flow oxygen and received more aggressive IV diuresis and metolazone. - she is breathing well on 2LPM via nasal canula. - Cont diuresis - switched to PO by Cardiology. - Appreciate nephrology and cardiology assistance with this effort. - Cont Kendall in place. - Strict I/Os. - Ambulate with assist as tolerated - 2 step with 2L oxygen NC with activity - patient is for rehab on discharge (3) Ileocolitis: Plan: Uncertain cause, stool studies obtained this am are negative. She also has the appearance of an ileus on KUB which likely caused the issue of no BM for several days. - resuscitated on admission aggressively given her initial clinical picture and elevated lactate which has now resolved. - now s/p broad spectrum abx after 8 days of therapy - Vanc PO stopped with negative stool culture. - abdominal pain improved and diarrhea also improved - She is tolerating PO and will continue to advance diet to ADA solid food - had elevation of WBC which could represent stress response in setting of GI bleed as noted above - blood cultures repeated and empiric abx with cefepime and flagyl for now pending further work up - will monitor for now (4) Anemia: Plan: Baseline hemoglobin around 8.7. She was given a blood transfusion on the agustina of 04/29, Hb is improved and stable. - had GIB with hgb drop to 7s-8 - GI plan as above - hemodynamically stable at this time - active type and screen (5) Coronary atherosclerosis of [place] coronary vessel: Plan: - stable, no complaints of chest pain at this time - continue statin - holding plavix, aspirin in setting of GIB - will monitor for now (6) Type 2 diabetes mellitus without complications: Plan: Glucose at goal, cont basal/bolus insulin. A1C at goal. (7) Ovarian cyst: Plan: nonurgent gynecology consultation for further investigation as outpatient. (8) Pulmonary nodule: Plan: repeat future CT scan in 6 months for stability. (9) Hyperparathyroidism: Plan: Takes cinacalcet. Follows with endocrinology at [facility]. (10) HTN (hypertension): Plan: - normotensive - continue on metoprolol and losartan - continue to hold amlodipine as patient's BP has been stable Plan DVT proph: heparin SC - being held due to GI bleeding as above DNR/DNI Dispo-cont PCU monitoring. Benitez Gordillo MD [facility] Medicine Admission and Anticipated Discharge Date Admission Date: April 27, 2022 Subjective Patient with HTN, HLD, HFpEF, CAD, DM2, h/o CVA, hyperparathyroidism, GERD presenting with collitis and volume overload. Given IV abx with improvement in diarrhea. IV lasix with improvement in oxygenation and volume status. Had 2 episodes of GI bleeding 05/05/2022 with mild hgb drop, hemodynamically stable. GI reevaluated and plan for EGD, colonoscopy 05/06/2022. Patient is in a bad mood this morning, seems discouraged. Denied chest pain, shortness of breath, n/v/d, abdominal pain, dysuria. Review of Systems Review of Systems: All systems were reviewed and negative except as indicated on subjective above. Physical Exam Physical Exam: CONSTITUTIONAL: obese, generally, NAD, appears clinically improved, slightly disheveled EYES: normal conjunctivae, no scleral icterus ENT: external ear and nose normal, MMM NECK: trachea midline RESPIRATORY: no wheezing heard, no increased respiratory effort, bibasilar crackles noted CARDIOVASCULAR: regular rate and rhythm, S1 and 2 heard without murmurs, gallops or rubs, no JVD, no peripheral edema CHEST: inspection of chest was normal GASTROINTESTINAL: soft, NT/ND, no guarding. MUSCULOSKELETAL: generalized weakness, she is a 1 assist, head is normocephalic and atraumatic, SKIN: warm and dry NEUROLOGIC: CN 2-12 grossly intact, no sensory deficit, normal cognition, normal speech PSYCHIATRIC: alert cooperative and oriented to person, place and time. Results & Data Results & Data ([facility]) Vital Signs (Past 12 Hours) Vital Signs Temp Pulse Resp BP BP Pulse Ox O2 Del Method 05/05/22 08:00 Nasal Cannula 05/05/22 10:27 36.5 C 99 H 17 125/65 91 Nasal Cannula 05/05/22 07:11 37.2 C 109 H 17 123/66 95 Nasal Cannula 05/05/22 03:02 36.6 C 102 H 18 122/64 93 Nasal Cannula O2 Flow Rate 05/05/22 08:00 2 05/05/22 10:27 4 05/05/22 07:11 2 05/05/22 03:02 2 Diagnostic Findings Laboratory Results WBC 24.57 K/ul (4.8-10.8) H 05/05/22 08:15 RBC 3.62 M/uL (3.93-5.22) L 05/05/22 08:15 Hgb 8.0 g/dl (12.0-16.0) L 05/05/22 08:15 Hct 24.7 % (34.1-44.9) L 05/05/22 08:15 MCV 68.2 fL (80.0-100.0) L 05/05/22 08:15 MCH 22.1 pg (25.0-34.0) L 05/05/22 08:15 MCHC 32.4 g/dL (32.0-36.0) 05/05/22 08:15 RDW Std Deviation 60.0 fL (36.4-46.3) H 05/05/22 08:15 RDW Coeff of Vanita 25.7 % (11.5-14.5) H 05/05/22 08:15 Plt Count 287 K/uL (130-400) 05/05/22 08:15 MPV 11.4 fL (9.4-12.3) 05/05/22 08:15 Immature Gran % (Auto) 2.2 % 05/03/22 06:05 Neut % (Auto) 58.7 % 05/03/22 06:05 Lymph % (Auto) 17.7 % 05/03/22 06:05 [place] % (Auto) 15.6 % 05/03/22 06:05 Eos % (Auto) 5.0 % 05/03/22 06:05 Baso % (Auto) 0.8 % 05/03/22 06:05 Neut # (Auto) 8.42 K/uL (1.4-6.5) H 05/03/22 06:05 Lymph # (Auto) 2.54 K/uL (1.2-3.4) 05/03/22 06:05 [place] # (Auto) 2.24 K/uL (0.24-0.82) H 05/03/22 06:05 Eos # (Auto) 0.72 K/uL (0-0.50) H 05/03/22 06:05 Baso # (Auto) 0.11 K/uL (0-0.2) 05/03/22 06:05 Immature Gran # (Auto) 0.32 K/uL (0.00-0.02) H 05/03/22 06:05 Absolute Nucleated RBC 0.05 K/uL (0-0) H 05/05/22 08:15 Nucleated RBC % (auto) 0.2 % 05/05/22 08:15 Polychromasia 2+ 05/03/22 06:05 Hypochromasia Present 04/28/22 04:13 Poikilocytosis Present 05/03/22 06:05 Anisocytosis Present 05/03/22 06:05 Microcytosis Present 05/03/22 06:05 Target Cells 1+ 05/03/22 06:05 Tear Drop Cells 1+ 04/28/22 04:13 Ovalocytes 1+ 04/27/22 20: Echinocytes 2+ 05/03/22 06:05 Acanthocytes (Spur) 2+ 05/03/22 06:05 Schistocytes 1+ 05/03/22 06:05 Peripher Smr Path Cons 04/27/22 16:33 PT 13.0 Seconds (9.0-12.0) H 04/27/22 20:23 INR 1.2 (0.9-1.1) H 04/27/22 20:23 APTT 57.0 Seconds (21.0-31.0) H* 04/28/22 14:12 PTT Ratio 2.1 04/28/22 14:12 ABG pH 7.40 (7.35-7.45) 04/30/22 21:59 ABG pCO2 32 mmHg (35-46) L 04/30/22 21:59 ABG pO2 73 mmHg (80-95) L 04/30/22 21:59 ABG HCO3 20 mmol/L (19-24) 04/30/22 21:59 ABG O2 Saturation 97.4 % (90-95) H 04/30/22 21:59 ABG Base Excess -4.0 mEq/L (-9-1.8) 04/30/22 21:59 Jose Test POS (Pos) 04/30/22 21:59 Oxygen Given FiO2 30% 04/30/22 21:59 Sodium 137 mmol/L (136-145) 05/05/22 05:54 Potassium 4.5 mmol/L (3.5-5.1) 05/05/22 05:54 Chloride 101 mmol/L (98-107) 05/05/22 05:54 Carbon Dioxide 27 mmol/L (21-32) 05/05/22 05:54 Anion Gap 9 (3-11) 05/05/22 05:54 BUN 33 mg/dl (6-23) H 05/05/22 05:54 Creatinine 0.92 mg/dl (0.6-1.2) 05/05/22 05:54 Est Cr Clr Drug Dosing 47.9 ml/min 05/05/22 05:54 Est GFR ( Amer) 67.7 ml/min 05/05/22 05:54 Est GFR (Non-Af Amer) 58.4 ml/min 05/05/22 05:54 BUN/Creatinine Ratio 35.9 (10-20) H 05/05/22 05:54 Glucose 221 mg/dl (70-99(Fasting)) H 05/05/22 05:54 POC Glucose 236 mg/dl (70-99) H 05/05/22 11:03 Lactate 1.5 mmol/L (0.4-2.0) 04/30/22 00:36 Calcium 7.8 mg/dl (8.5-10.1) L 05/05/22 05:54 Phosphorus 3.5 mg/dl (2.5-4.9) D 05/05/22 05:54 Magnesium 1.6 mg/dl (1.7-2.4) L 05/05/22 05:54 Iron < 10 mcg/dl (35-150) L 04/29/22 07:05 TIBC TNP 04/29/22 07:05 Unsaturated IBC 308 mcg/dl (155-355) 04/29/22 07:05 Transferrin % Sat TNP 04/29/22 07:05 Ferritin 59.7 ng/ml (8-388) 04/29/22 07:05 Total Bilirubin 1.3 mg/dl (0.2-1.0) H 04/28/22 04:13 AST 30 U/L (13-39) 04/28/22 04:13 ALT 14 U/L (7-52) 04/28/22 04:13 Alkaline Phosphatase 42 U/L (34-104) 04/28/22 04:13 Troponin I High Sens 540.7 pg/ml (0-14) H* 04/28/22 04:13 B-Natriuretic Peptide 416 pg/ml (0-100) H 05/01/22 05:41 Total Protein 6.3 gm/dl (6.0-8.3) 04/28/22 04:13 Albumin 3.1 gm/dl (3.4-5.0) L 04/28/22 04:13 Globulin 3.2 gm/dl (2.5-4.0) 04/28/22 04:13 Albumin/Globulin Ratio 1.0 (0.9-2) 04/28/22 04:13 Lipase 16 U/L (11-82) 04/27/22 12:51 Vitamin B12 371 pg/ml (180-914) 04/29/22 07:05 Folate > 22.30 ng/ml (>5.38) 04/29/22 07:05 Procalcitonin 2.72 ng/ml (0-0.5) H 04/30/22 06:12 Urine Color Yellow 04/27/22 14:28 Urine Appearance Clear (Clear) 04/27/22 14:28 Urine pH 5.0 (4.5-7.5) 04/27/22 14:28 Ur Specific [place] 1.015 (1.000-1.030) 04/27/22 14:28 Urine Protein Trace (Negative) H 04/27/22 14:28 Urine Glucose (UA) Negative (Negative) 04/27/22 14:28 Urine Ketones Trace (Negative) H 04/27/22 14:28 Urine Blood Negative (Negative) 04/27/22 14: Urine Nitrite Negative (Negative) 04/27/22 14: Urine Bilirubin Negative (Negative) 04/27/22 14:28 Urine Urobilinogen Negative (Negative) 04/27/22 14:28 Ur Leukocyte Esterase Trace (Negative) H 04/27/22 14:28 Urine WBC (Auto) 1-5 /hpf (0-5) 04/27/22 14:28 Urine RBC (Auto) 0-4 /hpf (0-4) 04/27/22 14:28 U Hyaline Cast (Auto) 1-5 /lpf (0-5) 04/27/22 14:28 U Epithel Cells (Auto) 5-10 /lpf (0-5) H 04/27/22 14:28 Urine Bacteria (Auto) Negative (Negative) 04/27/22 14:28 Stool Occult Bld Scrn Positive (Negative) A 05/05/22 06:15 Stl C. cayetanensis PCR Not Detected (NotDetected) 05/02/22 04:01 Stool Rotavirus A PCR Not Detected (NotDetected) 05/02/22 04:01 Stl Adenov F 40/41 PCR Not Detected (NotDetected) 05/02/22 04:01 Stool Astrovirus (PCR) Not Detected (NotDetected) 05/02/22 04:01 Stool Campylobacter PCR Not Detected (NotDetected) 05/02/22 04:01 Stl C. diff Tox B Gene Negative Cdiff Gene (Neg) 05/02/22 04:01 Stool Cryptosporidium PCR Not Detected (NotDetected) 05/02/22 04:01 Stl E.coli Shiga Tox PCR Not Detected (NotDetected) 05/02/22 04:01 Stl Enterotoxigenic E PCR Not Detected (NotDetected) 05/02/22 04:01 Stool EPEC (PCR) Not Detected (NotDetected) 05/02/22 04:01 Stool EAEC (PCR) Not Detected (NotDetected) 05/02/22 04:01 Stl E. histolytica PCR Not Detected (NotDetected) 05/02/22 04:01 Stool Giardia Lamblia PCR Not Detected (NotDetected) 05/02/22 04:01 Stool Salmonella PCR Not Detected (NotDetected) 05/02/22 04:01 Stool Sapovirus (PCR) Not Detected (NotDetected) 05/02/22 04:01 Stl P. shigelloides PCR Not Detected (NotDetected) 05/02/22 04:01 Stl Shigella/EIEC PCR Not Detected (NotDetected) 05/02/22 04:01 St Y.enterocolitica PCR Not Detected (NotDetected) 05/02/22 04:01 Stool Vibrio (PCR) Not Detected (NotDetected) 05/02/22 04:01 Stl Vibrio cholerae PCR Not Detected (NotDetected) 05/02/22 04:01 Stl Norovirus GI/GII PCR Not Detected (NotDetected) 05/02/22 04:01 SARS-CoV-2, RNA, NAAT NEGATIVE (NEGATIVE) 04/27/22 13:30 Blood Type A Positive 05/05/22 08:15 Antibody Screen NEGATIVE 05/05/22 08:15 Crossmatch See Detail 04/29/22 17:09 Impressions Abdomen/Pelvis CT 04/27/22 13:[address] WITH IV CONTRAST CT DOSE: 908.81 mGycm HISTORY: Right lower quadrant pain. TECHNIQUE: Multiaxial CT images of the abdomen and pelvis were performed following the use of intravenous contrast. A dose lowering technique was utilized adhering to the principles of ALARA. COMPARISON STUDY: None. FINDINGS: Interstitial thickening at the lung bases is noted. This may be chronic. There are mild dependent changes at the lung bases. Partially visualized 6 mm nodule within the left lower lobe there is an additional 8 mm irregular nodule within the left lower lobe on image 29. No pneumoperitoneum. No pneumatosis. No fractures within the visualized osseous structures. The heart is borderline enlarged. Small right upper quadrant abdominal wall defect/hernia measuring 2 cm. This favors a prior laparoscopic port site given the prior cholecystectomy. There are are scattered dropped gallstones within the right side of the abdomen and within the anterior abdominal wall measuring up to 2.3 cm. Nodular contour to the liver consistent with cirrhosis. Moderate bile duct dilatation likely due to the patient's postcholecystectomy state. The spleen, pancreas, and right adrenal gland are unremarkable. There is mild thickening of the left adrenal gland. There is a 4 mm stone within the right kidney. No left renal calculi. No ureteral calculi. No hydronephrosis. There are few scattered hypodensities within the kidneys. The majority these are technically too small to characterize but statistically represent cysts. No retroperitoneal lymphadenopathy. 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 No pelvic lymphadenopathy or pelvic free fluid. The bladder is unremarkable. Prior hysterectomy. There is a 7.2 cm right ovarian cyst. This could be pathologic in a postmenopausal female. Colonic diverticulosis. No evidence for acute diverticulitis. Mild circumferential thickening within the ascending colon with mild pericolonic fat stranding. There is also mild circumferential thickening of the distal terminal ileum near the ileocecal valve. This is consistent with a nonspecific ileocolitis and favors an infectious or inflammatory process. A portal colopathy could also a similar appearance but is considered less likely. No evidence for bowel obstruction. IMPRESSION: 1. Mild circumferential thickening within the ascending colon with mild pericolonic fat stranding. There is also mild circumferential thickening of the distal terminal ileum near the ileocecal valve. This is consistent with a nonspecific ileocolitis and favors an infectious or inflammatory process. A portal colopathy could also a similar appearance but is considered less likely. 2. Cirrhotic liver. 3. There are 2 irregular nodule within the left lower lobe with the largest measuring 8 mm. Follow-up chest CT in 6 months is recommended to ensure stability/resolution. 4. Right-sided nephrolithiasis. No ureteral stones. No hydronephrosis. 5. A 7.2 cm right ovarian cyst. This is considered to be pathologic in a postmenopausal female. Follow-up nonemergent gynecologic consultation recommended. 6. Additional findings as described above. ACT 112: Negative or not required by law. Electronically signed by: Pee Parker M.D. 04/27/2022 3:01 PM Venous Doppler Study 04/27/22 16:59 BILATERAL LOWER EXTREMITY VENOUS DOPPLER HISTORY: Lower extremity pain. COMPARISON STUDY: None. FINDINGS: There is normal compressibility, flow, and augmentation within the bilateral lower extremity deep venous systems. IMPRESSION: No DVT within the right or left lower extremity. ACT 112: Negative or not required by law. Electronically signed by: Pee Parker M.D. 04/27/2022 5:59 PM KUB X-Ray 05/02/22 07:00 KUB HISTORY: f/u colon dilatation COMPARISON: KUB 05/01/2022. FINDINGS: Prior cholecystectomy. Borderline distended gas-filled colon measuring up to 6 cm. This is similar to the prior study. Nondilated gas-filled loops of small bowel again noted. Scattered throughout gallstone seen within the right side of the abdomen. Trace bilateral pleural effusions. No renal calculi. No ureteral calculi. No pneumoperitoneum or pneumatosis. IMPRESSION: No significant change in the borderline colonic distention. ACT 112: Negative or not required by law. Electronically signed by: Pee Parker M.D. 05/02/2022 10:39 AM Chest X-Ray 05/03/22 07:00 XR chest 1V portable CLINICAL HISTORY: Hypoxia. COMPARISON STUDY: Chest radiograph May 01, 2022. FINDINGS: There is no pneumothorax. Interstitial pulmonary edema is noted. This has improved since prior exam. Small bilateral pleural effusions, right larger left, have also improved. Cardiomegaly is noted. Hazy right basilar opacity has decreased. IMPRESSION: Pulmonary edema with small bilateral pleural effusions and bibasilar opacities. Findings have moderately improved since exam of May 01, 2022. ACT 112: Negative or not required by law. Electronically signed by: Karson Goddard M.D. 05/03/2022 8:38 AM Medications Administered Current Inpatient Medications Acetaminophen (Acetaminophen 500 Mg Tab) 1,000 mg PO Q8H [facility] Stop: 06/01/22 11:59 Last Admin: 05/05/22 12:23 Dose: Not Given Amlodipine Besylate (Amlodipine Besylate 5 Mg Tab) 5 mg PO QAM DESIREE Stop: 05/28/22 08:59 Last Admin: 04/28/22 08:09 Dose: 5 mg Aspirin (Aspirin 81 Mg Ectab) 81 mg PO DAILY DESIREE Stop: 05/28/22 08:59 Last Admin: 05/04/22 08:02 Dose: 81 mg Cinacalcet (Cinacalcet Hcl 30 Mg Tab) 30 mg PO DAILY DESIREE Stop: 05/28/22 08:59 Last Admin: 05/05/22 07:58 Dose: Not Given Clopidogrel Bisulfate (Clopidogrel Bisulfate 75 Mg Tab) 75 mg PO QAM DESIREE Stop: 05/28/22 08:59 Last Admin: 05/04/22 08:02 Dose: 75 mg Dextrose (Dextrose 50% 50 Ml Syringe) 25 - 50 ml IV UD PRN; Protocol PRN Reason: Hypoglycemia Protocol Stop: 05/27/22 19:03 Furosemide (Furosemide 40 Mg Tab) 40 mg PO [id number] DESIREE Stop: 06/03/22 16:59 Last Admin: 05/05/22 07:58 Dose: 40 mg Glucagon (Glucagon For Inj 1 Mg Vial) 1 mg SQ UD PRN; Protocol PRN Reason: Hypoglycemia Protocol Stop: 05/27/22 19:03 Glucose (Glucose 40% Gel 15 Gm Tube) 15 - 30 gm PO UD PRN; Protocol PRN Reason: Hypoglycemia Protocol Stop: 05/27/22 19:03 Glucose (Glucose 10 Tab/Tube) 4 - 8 tab PO UD PRN; Protocol PRN Reason: Hypoglycemia Treatment Stop: 05/27/22 19:03 Heparin Sodium (Porcine) (Heparin Sod 5,000 Unit/0.5 Ml Vial) 5,000 units SQ Q12 [facility] Stop: 05/28/22 20:59 Last Admin: 05/04/22 21:06 Dose: 5,000 units Sodium Chloride (Nss 1000ml) 1,000 mls @ 100 mls/hr IV .Q10H [facility] Stop: 05/05/22 16:14 Last Admin: 05/05/22 06:33 Dose: 100 mls/hr Cefepime HCl 2,000 mg/ Syringe 20 mls @ 5 mls/min IV Q12H [facility]; Protocol Stop: 05/07/22 13:59 Last Admin: 05/05/22 12:23 Dose: 5 mls/min Metronidazole (Flagyl) 500 mg in 100 mls @ 100 mls/hr IV Q8H [facility] Stop: 05/07/22 10:29 Last Admin: 05/05/22 12:22 Dose: 100 mls/hr Insulin Aspart (Insulin Aspart Per Unit) 0 units SC ACHS [facility]IREE Stop: 05/27/22 20:59 Last Admin: 05/05/22 12:22 Dose: 7 units Insulin Glargine (Lantus Per Unit Charge) 0 - 20 units SQ BID [facility] Stop: 05/27/22 20:59 Last Admin: 05/05/22 07:52 Dose: 20 units Losartan Potassium (Losartan Potassium 25 Mg Tab) 25 mg PO DAILY [facility] Stop: 05/28/22 08:59 Last Admin: 05/05/22 07:59 Dose: 25 mg Magnesium Oxide (Magnesium Oxide 400 Mg Tab) 400 mg PO DAILY [facility] Stop: 05/28/22 08:59 Last Admin: 04/30/22 07:48 Dose: 400 mg Magnesium Oxide (Magnesium Oxide 400 Mg Tab) 400 mg PO BID [facility] Stop: 05/05/22 21:01 Last Admin: 05/05/22 07:58 Dose: 400 mg Metoprolol Tartrate (Metoprolol Tartrate 25 Mg Tab) 12.5 mg PO BID [facility] Stop: 05/27/22 20:59 Last Admin: 05/05/22 07:59 Dose: 12.5 mg Miscellaneous (Carbohydrates For Hypoglycemia ) 15 - 30 gm PO UD PRN PRN Reason: Hypoglycemia Protocol Stop: 05/27/22 19:03 Oxycodone HCl (Oxycodone Hcl Ir 5 Mg Tab (Immediate Release)) 5 mg PO Q4H PRN PRN Reason: Pain Stop: 05/14/22 23:48 Last Admin: 05/01/22 05:11 Dose: 5 mg Pantoprazole Sodium (Pantoprazole 40 Mg Tab) 40 mg PO DAILY [facility] Stop: 05/28/22 08:59 Last Admin: 05/05/22 07:58 Dose: 40 mg Polyethylene Glycol/Electrolytes (Lavage Solution 4000ml) 16 dose PO TODAY@1230 [facility] Stop: 05/06/22 12:29 Simvastatin (Simvastatin 10 Mg Tab) 10 mg PO DAILY [facility] Stop: 05/28/22 08:59 Last Admin: 04/30/22 07:48 Dose: 10 mg
--- NOTE | 2022-05-05 12:44 | Gastroenterology Progress Note ---
Date of Service May 05, 2022 Assessment & Plan (1) Colitis: (2) GI bleed: Plan Will go forward with EGD, colonoscopy tomorrow by Dr. Hardwick. Appreciate primary hospitalists management of fluids/blood rescusitation, BS management, electrolyte replacement and optimization of cardiac issues in light of hx of CHF. Admission and Anticipated Discharge Date Admission Date: April 27, 2022 Supervising Physician Co-Signing Physician Notes Seen earlier this week for ascending colitis with hematochezia that was stable. Called back for bleeding with drop in hgb. On plavix. Planning for egd/colon tomorrow. Subjective Ms. Martine Russell is an 81 yr old female w hx hyperparathyroidism, DM-2, CHF, pneumonia, CVA who was admitted on 04/27 for abd pain, diarrhea, CT w colitis. She was seen earlier this week. Stool studies (-) for C-diff/GI Pathogens. Now with new gross GI bleeding. Passed a total of 3 jasen loose/liquid BMs over night and mid morning. Still w R mid/lower abd pain though improved compared to prior. No N/V. C/o thirst. Hb 9.7 -> 7.7 then recheck 8.0. She had received a until of PRBCs a few days ago. Most recent Plavix 05/04/22 8AM. Review of Systems Review of Systems: ROS: Gen: +general weakness but not recently worsened. No fevers, weight loss Eyes: No eye redness, or pain, no recent vision changes Resp: No SOB, no cough Cardio: No palpitations/irregular beats, no chest pain GI: As per HPI, otherwise (-). : Denies pain on urination Skin: No jaundice, itching or new rashes A total of 12 systems were reviewed, all others (-) Physical Exam Constitutional: WD/WN, vitals as above Eyes: PERRL, conjunctivae normal, anicteric sclerae ENMT: external ear and nose normal, oropharynx normal Neck: trachea midline, no thyromegaly Respiratory: normal respiratory effort, lungs clear to auscultation Cardiovascular: RRR, no murmur, no edema Gastrointestinal (Abdomen): Inspection/Auscultation: normal bowel sounds; abdomen not distended Percussion/Palpation: + abdomen tender (moderately tender in the RLQ) and abdomen soft Skin: no rashes, warm and dry Neurologic: PERRL, EOMI, accommodation nl, no face palsy, no dysarthria Psychiatric: A+Ox3, euthymic affect Lymphatic: no cervical or axillary lymphadenopathy Results & Data ([facility]) Vital Signs (Past 12 Hours) Vital Signs Temp Pulse Resp BP BP Pulse Ox O2 Del Method 05/05/22 08:00 Nasal Cannula 05/05/22 10:27 36.5 C 99 H 17 125/65 91 Nasal Cannula 05/05/22 07:11 37.2 C 109 H 17 123/66 95 Nasal Cannula 05/05/22 03:02 36.6 C 102 H 18 122/64 93 Nasal Cannula O2 Flow Rate 05/05/22 08:00 2 05/05/22 10:27 4 05/05/22 07:11 2 05/05/22 03:02 2 Laboratory Results WBC 24, Hb 8, Hct 24, Plts 287, Na 137, K 4.5, Cl 19, CO2 27, BUN 33, C4 0.92, glucose 237. Diagnostic Findings CXR 05/03/22:Pulmonary edema with small bilateral pleural effusions and bibasilar opacities. Findings have moderately improved since exam of May 01, 2022. CTAP 04/27/22: 1. Mild circumferential thickening within the ascending colon with mild pericolonic fat stranding. There is also mild circumferential thickening of the distal terminal ileum near the ileocecal valve. This is consistent with a nonspecific ileocolitis and favors an infectious or inflammatory process. A portal colopathy could also a similar appearance but is considered less likely. 2. Cirrhotic liver. 3. There are 2 irregular nodule within the left lower lobe with the largest measuring 8 mm. Follow-up chest CT in 6 months is recommended to ensure stability/resolution. 4. Right-sided nephrolithiasis. No ureteral stones. No hydronephrosis. 5. A 7.2 cm right ovarian cyst. This is considered to be pathologic in a post menopausal female. Follow-up nonemergent gynecologic consultation recommended. 6. Additional findings as described above.
--- NOTE | 2022-05-05 13:47 | XRay Report ---
XR chest 1V portable CLINICAL HISTORY: pulm congestion TECHNIQUE: Single frontal radiograph of the chest was obtained. Comparison: Comparison is made to chest radiograph 05/03/2022 FINDINGS: No lines and tubes are seen. Cardiomegaly is noted. The lungs are clear. No evidence of pleural effus ion or pneumothorax. IMPRESSION: No acute chest disease. ACT 112: Negative or not required by law. Electronically signed by: Kingston Dunlap M.D. 05/05/2022 1:45 PM
--- NOTE | 2022-05-05 13:59 | Cardiology Progress Note ---
Date of Service May 05, 2022 Assessment & Plan (1) Sepsis: (2) Ileocolitis: (3) Coronary atherosclerosis of [place] coronary vessel: (4) Mitral stenosis: (5) Chronic heart failure with preserved ejection fraction (HFpEF): (6) GI bleed: Plan The patient had melanotic stools last night. She is dropped her hemoglobin. GI's service saw her and would like to perform an EGD and colonoscopy. Her aspirin and Plavix are on hold and it would appear the GI service wants to postp one the procedures until Monday. From a cardiac risk assessment, this patient is at increased risk for any procedures and anesthesia due to her multiple comorbidities. Additional cardiac testing or intervention will not change this risk assessment. We will optimally medically manage the patient and tune her up over the next few days. Admission and Anticipated Discharge Date Admission Date: April 27, 2022 Subjective The patient is alert. Still eating clear liquids without complaint. Review of Systems Review of Systems: Review of Systems: See HPI for pertinent positives. All other 10 point review of systems are negative. Physical Exam Physical Exam: General: no acute distress and stated age Head: normocephalic, no masses, lesions, tenderness or abnormalities Eyes: conjunctiva are pink and non-injected, sclera clear Neck: supple, no adenopathy, no bruits, normal jugular venous pulse, no hepatojugular reflux Chest: normal shape and normal respiratory effort Lungs: clear to auscultation and percussion Cardiac Exam: - regular rate & rhythm, no murmurs gallops or rubs - normal S1, normal S2 Pulses: 2(+) throughout Abdomen: abdomen soft, non-tender, no abnormal masses and no hepatosplenomegaly Musculoskeletal: no gait disturbance, no joint inflammation, no deforming arthritis Extremities: no edema and no cyanosis Neuro: grossly normal exam Results & Data ([facility]) Vital Signs (Past 12 Hours) Vital Signs Temp Pulse Resp BP BP Pulse Ox O2 Del Method 05/05/22 08:00 Nasal Cannula 05/05/22 10:27 36.5 C 99 H 17 125/65 91 Nasal Cannula 05/05/22 07:11 37.2 C 109 H 17 123/66 95 Nasal Cannula 05/05/22 03:02 36.6 C 102 H 18 122/64 93 Nasal Cannula O2 Flow Rate 05/05/22 08:00 2 05/05/22 10:27 4 12/22/22 07:11 2 05/05/22 03:02 2 Laboratory Results Laboratory Results - last 24 hr 05/04/22 05/04/22 05/05/22 16:15 20:39 05:54 WBC 23.70 H D RBC 3.64 L Hgb 7.7 L Hct 24.5 L MCV 67.3 L MCH 21.2 L MCHC 31.4 L RDW Std Deviation 57.6 H RDW Coeff of Vanita 25.2 H Plt Count 289 MPV 11.3 Absolute Nucleated RBC 0.06 H Nucleated RBC % (auto) 0.3 Sodium Potassium Chloride Carbon Dioxide Anion Gap BUN Creatinine Est Cr Clr Drug Dosing Est GFR ( Amer) Est GFR (Non-Af Amer) BUN/Creatinine Ratio Glucose POC Glucose 270 H 244 H Calcium Phosphorus Magnesium Stool Occult Bld Scrn Blood Type Antibody Screen 05/05/22 05/05/22 05/05/22 05:54 06:15 07:14 WBC RBC Hgb Hct MCV MCH MCHC RDW Std Deviation RDW Coeff of Vanita Plt Count MPV Absolute Nucleated RBC Nucleated RBC % (auto) Sodium 137 Potassium 4.5 Chloride 101 Carbon Dioxide 27 Anion Gap 9 BUN 33 H Creatinine 0.92 Est Cr Clr Drug Dosing 47.9 Est GFR ( Amer) 67.7 Est GFR (Non-Af Amer) 58.4 BUN/Creatinine Ratio 35.9 H Glucose 221 H POC Glucose 226 H Calcium 7.8 L Phosphorus 3.5 D Magnesium 1.6 L Stool Occult Bld Scrn Positive A Blood Type Antibody Screen 05/05/22 05/05/22 05/05/22 08:15 08:15 11:03 WBC 24.57 H RBC 3.62 L Hgb 8.0 L Hct 24.7 L MCV 68.2 L MCH 22.1 L MCHC 32.4 RDW Std Deviation 60.0 H RDW Coeff of Vanita 25.7 H Plt Count 287 MPV 11.4 Absolute Nucleated RBC 0.05 H Nucleated RBC % (auto) 0.2 Sodium Potassium Chloride Carbon Dioxide Anion Gap BUN Creatinine Est Cr Clr Drug Dosing Est GFR ( Amer) Est GFR (Non-Af Amer) BUN/Creatinine Ratio Glucose POC Glucose 236 H Calcium Phosphorus Magnesium Stool Occult Bld Scrn Blood Type A Positive Antibody Screen NEGATIVE Medications Administered Current Inpatient Medications Acetaminophen (Acetaminophen 500 Mg Tab) 1,000 mg PO Q8H DESIREE Stop: 06/01/22 11:59 Last Admin: 05/05/22 12:23 Dose: Not Given Amlodipine Besylate (Amlodipine Besylate 5 Mg Tab) 5 mg PO QAM COUNT INCLUDES THE [facility] Stop: 05/28/22 08:59 Last Admin: 04/28/22 08:09 Dose: 5 mg Aspirin (Aspirin 81 Mg Ectab) 81 mg PO DAILY DESIREE Stop: 05/28/22 08:59 Last Admin: 05/04/22 08:02 Dose: 81 mg Cinacalcet (Cinacalcet Hcl 30 Mg Tab) 30 mg PO DAILY DESIREE Stop: 05/28/22 08:59 Last Admin: 05/05/22 07:58 Dose: Not Given Clopidogrel Bisulfate (Clopidogrel Bisulfate 75 Mg Tab) 75 mg PO QAM COUNT INCLUDES THE [facility] Stop: 05/28/22 08:59 Last Admin: 05/04/22 08:02 Dose: 75 mg Dextrose (Dextrose 50% 50 Ml Syringe) 25 - 50 ml IV UD PRN; Protocol PRN Reason: Hypoglycemia Protocol Stop: 05/27/22 19:03 Furosemide (Furosemide 40 Mg Tab) 40 mg PO [id number] DESIREE Stop: 06/03/22 16:59 Last Admin: 05/05/22 07:58 Dose: 40 mg Glucagon (Glucagon For Inj 1 Mg Vial) 1 mg SQ UD PRN; Protocol PRN Reason: Hypoglycemia Protocol Stop: 05/27/22 19:03 Glucose (Glucose 40% Gel 15 Gm Tube) 15 - 30 gm PO UD PRN; Protocol PRN Reason: Hypoglycemia Protocol Stop: 05/27/22 19:03 Glucose (Glucose 10 Tab/Tube) 4 - 8 tab PO UD PRN; Protocol PRN Reason: Hypoglycemia Treatment Stop: 05/27/22 19:03 Heparin Sodium (Porcine) (Heparin Sod 5,000 Unit/0.5 Ml Vial) 5,000 units SQ Q12 DESIREE Stop: 05/28/22 20:59 Last Admin: 05/04/22 21:06 Dose: 5,000 units Sodium Chloride (Nss 1000ml) 1,000 mls @ 100 mls/hr IV .Q10H DESIREE Stop: 05/05/22 16:14 Last Admin: 05/05/22 06:33 Dose: 100 mls/hr Cefepime HCl 2,000 mg/ Syringe 20 mls @ 5 mls/min IV Q12H COUNT INCLUDES THE [facility]; Protocol Stop: 05/07/22 13:59 Last Admin: 05/05/22 12:23 Dose: 5 mls/min Metronidazole (Flagyl) 500 mg in 100 mls @ 100 mls/hr IV Q8H DESIREE Stop: 05/07/22 10:29 Last Admin: 05/05/22 12:22 Dose: 100 mls/hr Insulin Aspart (Insulin Aspart Per Unit) 0 units SC ACHS DESIREE Stop: 05/27/22 20:59 Last Admin: 05/05/22 12:22 Dose: 7 units Insulin Glargine (Lantus Per Unit Charge) 0 - 20 units SQ BID DESIREE Stop: 05/27/22 20:59 Last Admin: 05/05/22 07:52 Dose: 20 units Losartan Potassium (Losartan Potassium 25 Mg Tab) 25 mg PO DAILY DESIREE Stop: 05/28/22 08:59 Last Admin: 05/05/22 07:59 Dose: 25 mg Magnesium Oxide (Magnesium Oxide 400 Mg Tab) 400 mg PO DAILY COUNT INCLUDES THE [facility] Stop: 05/28/22 08:59 Last Admin: 04/30/22 07:48 Dose: 400 mg Magnesium Oxide (Magnesium Oxide 400 Mg Tab) 400 mg PO BID DESIREE Stop: 05/05/22 21:01 Last Admin: 05/05/22 07:58 Dose: 400 mg Metoprolol Tartrate (Metoprolol Tartrate 25 Mg Tab) 12.5 mg PO BID COUNT INCLUDES THE [facility] Stop: 05/27/22 20:59 Last Admin: 05/05/22 07:59 Dose: 12.5 mg Miscellaneous (Carbohydrates For Hypoglycemia ) 15 - 30 gm PO UD PRN PRN Reason: Hypoglycemia Protocol Stop: 05/27/22 19:03 Oxycodone HCl (Oxycodone Hcl Ir 5 Mg Tab (Immediate Release)) 5 mg PO Q4H PRN PRN Reason: Pain Stop: 05/14/22 23:48 Last Admin: 05/01/22 05:11 Dose: 5 mg Pantoprazole Sodium (Pantoprazole 40 Mg Tab) 40 mg PO DAILY COUNT INCLUDES THE [facility] Stop: 05/28/22 08:59 Last Admin: 05/05/22 07:58 Dose: 40 mg Simvastatin (Simvastatin 10 Mg Tab) 10 mg PO DAILY COUNT INCLUDES THE [facility] Stop: 05/28/22 08:59 Last Admin: 04/30/22 07:48 Dose: 10 mg (1) Sepsis Sepsis acute organ dysfunction status: without acute organ dysfunction Sepsis type: sepsis due to unspecified organism Qualified Code(s): A41.9 - Sepsis, unspecified organism
[2022-05-05 18:10] LABS: Hematocrit (blood only) 21.2 % (34.1-44.9); Hemoglobin 6.6 g/dl (12.0-16.0); Mean Corpuscular Hemoglobin 21.4 pg (25.0-34.0); Mean Corpuscular Hgb Conc 31.1 g/dL (32.0-36.0); Mean Corpuscular Volume 68.8 fL (80.0-100.0); Mean Platelet Volume 11.2 fL (9.4-12.3); Nucleated RBC # (auto) 0.07 K/uL (0-0); Nucleated RBC % (auto) 0.3 %; Platelet Count 264 K/uL (130-400); RDW Coefficient of Variation 25.3 % (11.5-14.5); RDW Standard Deviation 58.8 fL (36.4-46.3); Red Blood Count 3.08 M/uL (3.93-5.22); White Blood Count 26.02 K/ul (4.8-10.8)
[2022-05-05] MEDS ORDERED: FUROSEMIDE INJ 20 MG/2 ML VIAL IV ONE (18:26)
[2022-05-05] MEDS ORDERED: SODIUM CHLORIDE 0.9% 250 ML IV PRN (18:26)
[2022-05-06 02:01] LABS: Hematocrit (blood only) 23.8 % (34.1-44.9); Hemoglobin 7.9 g/dl (12.0-16.0); Mean Corpuscular Hemoglobin 23.7 pg (25.0-34.0); Mean Corpuscular Hgb Conc 33.2 g/dL (32.0-36.0); Mean Corpuscular Volume 71.5 fL (80.0-100.0); Nucleated RBC # (auto) 0.07 K/uL (0-0); Nucleated RBC % (auto) 0.3 %; Platelet Count 237 K/uL (130-400); RDW Coefficient of Variation 26.1 % (11.5-14.5); RDW Standard Deviation 63.1 fL (36.4-46.3); Red Blood Count 3.33 M/uL (3.93-5.22); White Blood Count 26.04 K/ul (4.8-10.8)
[2022-05-06] MEDS: CEFEPIME 2,000 MG in SYRINGE 0 ML IV SCH ×2 (02:22→14:00)
[2022-05-06] MEDS: metroNIDAZOLE 500 MG/100 ML BAG IV SCH ×3 (02:23→18:34)
[2022-05-06] MEDS: ACETAMINOPHEN 500 MG TAB PO SCH ×3 (04:06→20:19)
[2022-05-06 07:17] LABS: Hematocrit (blood only) 25.4 % (34.1-44.9); Hemoglobin 8.3 g/dl (12.0-16.0); Mean Corpuscular Hemoglobin 23.2 pg (25.0-34.0); Mean Corpuscular Hgb Conc 32.7 g/dL (32.0-36.0); Mean Corpuscular Volume 71.1 fL (80.0-100.0); Mean Platelet Volume 11.5 fL (9.4-12.3); Nucleated RBC # (auto) 0.06 K/uL (0-0); Nucleated RBC % (auto) 0.2 %; Platelet Count 258 K/uL (130-400); RDW Standard Deviation 61.1 fL (36.4-46.3); Red Blood Count 3.57 M/uL (3.93-5.22); White Blood Count 25.87 K/ul (4.8-10.8)
[2022-05-06 07:33] LABS: Magnesium 1.7 mg/dl (1.7-2.4)
[2022-05-06 07:53] LABS: Anisocytosis Present; Basophils # (auto) 0.22 K/uL (0-0.2); Basophils % (auto) 0.9 %; Echinocytes 1+; Eosinophils # (auto) 0.89 K/uL (0-0.50); Eosinophils % (auto) 3.4 %; Immature Granulocytes # (auto) 0.81 K/uL (0.00-0.02); Immature Granulocytes % (auto) 3.1 %; Lymphocytes # (auto) 4.29 K/uL (1.2-3.4); Lymphocytes % (auto) 16.6 %; Monocytes # (auto) 2.53 K/uL (0.24-0.82); Monocytes % (auto) 9.8 %; Neutrophils # (auto) 17.13 K/uL (1.4-6.5); Neutrophils % (auto) 66.2 %; Polychromasia 2+; Spherocytes 1+; Target Cells 1+
[2022-05-06] MEDS: LOSARTAN POTASSIUM 25 MG TAB PO SCH (08:46)
[2022-05-06] MEDS: CINACALCET HCL 30 MG TAB PO SCH (08:46)
[2022-05-06] MEDS: METOPROLOL TARTRATE 25 MG TAB PO SCH ×2 (08:47→20:19)
[2022-05-06] MEDS: FUROSEMIDE 40 MG TAB PO SCH ×2 (08:48→16:59)
[2022-05-06] MEDS: PANTOprazole 40 MG TAB PO SCH (08:48)
[2022-05-06] MEDS: INSULIN ASPART PER UNIT SC SCH ×4 (08:49→20:50)
[2022-05-06] MEDS: LANTUS PER UNIT CHARGE SQ SCH (08:49)
--- NOTE | 2022-05-06 09:00 | Surgery Progress Note ---
Date of Service May 06, 2022 Assessment & Plan (1) Ileocolitis: Plan: Patient with GI bleeding Monitoring H&H Subcu heparin, Plavix, baby aspirin all stopped Plan for upper endoscopy and colonoscopy on Monday when Plavix has been off Appears stable regarding her colitis, will continue antibiotics as ordered Diet ordered Dr. Bashir covering patient over the weekend Admission and Anticipated Discharge Date Admission Date: April 27, 2022 Subjective Patient awake and alert in no distress Her vital signs are stable She did have a large black bowel movement during the night She received 2 units of blood yesterday Apparent plan is for upper endoscopy/colonoscopy on Monday secondary to Plavix Not complaining of any abdominal pain Review of Systems Review of Systems: All systems reviewed & are unremarkable except as noted in HPI & below Physical Exam Physical Exam: Abdomen flat and soft without tenderness Has active bowel sounds Patient awake and alert in no distress Results & Data ([place]) Vital Signs (Past 12 Hours) Vital Signs Temp Pulse Pulse Resp BP BP Pulse Ox 05/06/22 06:41 36.7 C 90 18 117/60 95 05/06/22 03:15 36.8 C 87 18 118/62 92 05/05/22 23:59 91 H 05/05/22 23:05 36.8 C 72 16 142/71 H 94 05/05/22 23:42 36.5 C 78 16 141/72 H 94 05/05/22 22:05 36.8 C 90 16 134/61 94 05/05/22 21:35 36.8 C 93 H 16 144/63 H 92 05/05/22 21:20 36.8 C 100 H 16 133/51 L 92 05/05/22 21:01 36.9 C 105 H 18 149/61 H 92 O2 Del Method O2 Flow Rate 05/06/22 06:41 Nasal Cannula 3 05/06/22 03:15 Nasal Cannula 3 05/05/22 23:59 05/05/22 23:05 2 05/05/22 23:42 2 05/05/22 22:05 2 05/05/22 21:35 2 05/05/22 21:20 2 05/05/22 21:01 2 PG Care Time/CCT Total # of Minutes Spent Total Time Spent with Patient: Total time spent is greater than 50% in coordination of care (as documented) at patient's floor/unit and/or counseling patient: Coding Level of Care Code 49802 Inpt Consult Level 2 Diagnoses Ileocolitis K52.9
--- NOTE | 2022-05-06 10:44 | Cardiology Progress Note ---
Date of Service May 06, 2022 Assessment & Plan (1) Sepsis: (2) Ileocolitis: (3) Coronary atherosclerosis of [place] coronary vessel: (4) Mitral stenosis: (5) Chronic heart failure with preserved ejection fraction (HFpEF): (6) GI bleed: Plan The patient was on aspirin and Plavix due to previous CVA. She did have coronary stents placed in the so from a cardiac standpoint Plavix would not be needed. At this point since she is having melena I agree with stopping both the aspirin and Plavix. GIs help is appreciated. Admission and Anticipated Discharge Date Admission Date: April 27, 2022 Subjective The patient has no new cardiac complaints. No additional melena. Review of Systems Review of Systems: Review of Systems: See HPI for pertinent positives. All other 10 point review of systems are negative. Physical Exam Physical Exam: General: no acute distress and stated age Head: normocephalic, no masses, lesions, tenderness or abnormalities Eyes: conjunctiva are pink and non-injected, sclera clear Neck: supple, no adenopathy, no bruits, normal jugular venous pulse, no hepatojugular reflux Chest: normal shape and normal respiratory effort Lungs: clear to auscultation and percussion Cardiac Exam: - regular rate & rhythm, no murmurs gallops or rubs - normal S1, normal S2 Pulses: 2(+) throughout Abdomen: abdomen soft, non-tender, no abnormal masses and no hepatosplenomegaly Musculoskeletal: no gait disturbance, no joint inflammation, no deforming arthritis Extremities: no edema and no cyanosis Neuro: grossly normal exam Results & Data ([facility]) Vital Signs (Past 12 Hours) Vital Signs Temp Pulse Pulse Resp BP BP Pulse Ox 05/06/22 06:41 36.7 C 90 18 117/60 95 05/06/22 03:15 36.8 C 87 18 118/62 92 05/05/22 23:59 91 H 05/05/22 23:05 36.8 C 72 16 142/71 H 94 05/05/22 23:42 36.5 C 78 16 141/72 H 94 O2 Del Method O2 Flow Rate 05/06/22 06:41 Nasal Cannula 3 05/06/22 03:15 Nasal Cannula 3 05/05/22 23:59 05/05/22 23:05 2 05/05/22 23:42 2 (1) Sepsis Sepsis acute organ dysfunction status: without acute organ dysfunction Sepsis type: sepsis due to unspecified organism Qualified Code(s): A41.9 - Sepsis, unspecified organism
[2022-05-06] MEDS ORDERED: OPTIRAY 320 500ml IV ONE (11:09)
[2022-05-06] MEDS ORDERED: PHARMACY GLYCEMIC MGMT CONSULT PRN (11:44)
--- NOTE | 2022-05-06 11:52 | Gastroenterology Progress Note ---
Date of Service May 06, 2022 Assessment & Plan (1) Colitis: (2) GI bleed: Plan CTA today to verify the abdominal vessels are patent. Will also likely indicate if current bleeding occurring. Will hold ASA/Plavix and plan for EGD/Colonoscopy on Wednesday 05/09. Appreciate cardiology opion today that OK to hold ASA Plavix and go forward with EGD/Colonoscopy. Afternoon addendum: CTA w 5cm cecal phlegmon/abscess. Discussed w Dr. Carreno (surgery) and Dr. Danielle (primary hospitalists). Would defer tx to surgery. Regarding the GI bleeding. Appears to be hemodynamically stable and bleeding appears to be slowing. Due to the colitis w abscess Colonoscopy for Monday is contraindicated. Will hold on EGD as well. Will consider EGD if melena, further drop in Hb/Hct. Admission and Anticipated Discharge Date Admission Date: April 27, 2022 Supervising Physician Co-Signing Physician Notes I performed a history and physical examination of the patient today, including specifically on physical exam - soft abdomen. I have discussed the patient's management with the advanced practitioner. Please refer to the nurse practitioner's note for the documented findings and plan of care. Patient with know CAD, CVA on ASA and Plavix, admitted with abdominal pain, found to have R sided colitis and rectal bleeding. Persistent leukocytosis. Stool w/u negative. 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 CTA also showed fluid collection around the cecum which raises the suspicion for ongoing transmural colonic wall injury however there is no esther perforation yet. Surgical team onboard and upon discussion with family given her high risk due to Liver cirrhosis and severe vasculopathy, decision made to go for medical management only. Recommend: Vascular surgery consultation as the optimal treatment for this would be with angioplasty which should improve her blood flow and healing of the colon and that will stop her bleeding. No indication for endoscopy or colonoscopy at this point. Actually colonoscopy would increase her risk of perforation. I think this patient should be managed at a tertiary care center in view of impending colonic necrosis. Subjective 81 yr old female w hx of CAD, DM2, CHF presented to [facility] on 04/27, CT w right sided colitis. Began with rectal bleeding early yesterday - was on Plavix and ASA for CVA and getting heparin SQ here. Also hx of cardiac stenting in the . Hb dropped to 6.6, received a 2nd unit of blood during this admission yesterday. Hb 8.3 today. Plavix (most recent dose 05/04 Am), ASA 81mg (most recent dose 04/27) both held. Today: most recent BM was black, loose, large this morning. Pt looks much better, alert, carries on a conversation, able to sit up in a chair. Tells me her right sided abd pain is better. Clear liquids po. Review of Systems Review of Systems: ROS: Gen: weakness - much improved today. No fevers, weight loss Eyes: No eye redness, or pain, no recent vision changes Resp: No SOB, no cough. Does have O2 requirements Cardio: No palpitations/irregular beats, no chest pain GI: As per HPI, otherwise (-). : Denies pain on urination Skin: No jaundice, itching or new rashes A total of 12 systems were reviewed, all others (-) Physical Exam Constitutional: WD/WN, vitals as above Eyes: PERRL, conjunctivae normal, anicteric sclerae ENMT: external ear and nose normal, oropharynx normal Neck: trachea midline, no thyromegaly Respiratory: normal respiratory effort, lungs clear to auscultation Cardiovascular: RRR, no murmur, no edema Gastrointestinal (Abdomen): Inspection/Auscultation: normal bowel sounds; abdomen not distended Percussion/Palpation: + abdomen tender (moderately tender in the RLQ) and abdomen soft Skin: no rashes, warm and dry Neurologic: PERRL, EOMI, accommodation nl, no face palsy, no dysarthria Psychiatric: A+Ox3, euthymic affect Lymphatic: no cervical or axillary lymphadenopathy Results & Data ([facility]) Vital Signs (Past 12 Hours) Vital Signs Temp Pulse Pulse Resp BP Pulse Ox O2 Del Method 05/06/22 09:00 Nasal Cannula 05/06/22 08:00 92 H 05/06/22 06:41 36.7 C 90 18 117/60 95 Nasal Cannula 05/06/22 03:15 36.8 C 87 18 118/62 92 Nasal Cannula 05/05/22 23:59 91 H O2 Flow Rate 05/06/22 09:00 2 05/06/22 08:00 05/06/22 06:41 3 05/06/22 03:15 3 05/05/22 23:59 Laboratory Results WBC 25, Hb 8.3, Hct 25, Plts 258, glucose 240. Diagnostic Findings CTAP 04/27/22 w IV contrast: 1. Mild circumferential thickening within the ascending colon with mild pericolonic fat stranding. There is also mild circumferential thickening of the distal terminal ileum near the ileocecal valve. This is consistent with a nonspecific ileocolitis and favors an infectious or inflammatory process. A portal colopathy could also a similar appearance but is considered less likely. 2. Cirrhotic liver. 3. There are 2 irregular nodule within the left lower lobe with the largest measuring 8 mm. Follow-up chest CT in 6 months is recommended to ensure stability/resolution. 4. Right-sided nephrolithiasis. No ureteral stones. No hydronephrosis. 5. A 7.2 cm right ovarian cyst. This is considered to be pathologic in a postmenopausal female. Follow-up nonemergent gynecologic consultation recommended. 6. Additional findings as described above
--- NOTE | 2022-05-06 11:55 | Hospitalist Progress Note ---
Date of Service May 06, 2022 Assessment & Plan (1) GI bleed: Plan: - noted 2 maroon colored stools this morning 05/05/2022 that were large - HR elevated slightly, responded to IVF - active type and screen - hgb to 6.6 05/05/2022 - 1 unit PRBC transfused - q6-8h CBC - clear liquid diet through the weekend - GI reconsulted - plan for EGD/colonoscopy 05/06/2022 - Cardiology for pre-op risk stratification - continue to monitor (2) Acute respiratory failure: Plan: - respiratory 2/2 fluid overload - She had an +8L fluid balance since admission noted on 04/30. She went into respiratory failure requiring high flow oxygen and received more aggressive IV diuresis and metolazone. - she is breathing well on 2LPM via nasal canula. - Cont diuresis - switched to PO by Cardiology. - Appreciate nephrology and cardiology assistance with this effort. - Cont Kendall in place. - Strict I/Os. - Ambulate with assist as tolerated - 2 step with 2L oxygen NC with activity - patient is for rehab on discharge (3) Leukocytosis: Plan: - elevated WBC to 25 in the setting of GIB vs sepsis - hemodynamically stable, afebrile - unclear etiology at this time - repeat blood cutlures drawn 05/05/2022 - empiric abx with cefepime, flagyl given ileocolitis - will trend for now (4) Ileocolitis: Plan: Uncertain cause, stool studies obtained this am are negative. She also has the appearance of an ileus on KUB which likely caused the issue of no BM for several days. - resuscitated on admission aggressively given her initial clinical picture and elevated lactate which has now resolved. - now s/p broad spectrum abx after 8 days of therapy - Vanc PO stopped with negative stool culture. - abdominal pain improved and diarrhea also improved - She is tolerating PO and will continue to advance diet to ADA solid food - had elevation of WBC which could represent stress response in setting of GI bleed as noted above vs acute infection - blood cultures repeated and empiric abx with cefepime and flagyl for now pending further work up - will monitor for now (5) Anemia: Plan: - Baseline hemoglobin around 8.7. She was given a blood transfusion on the agustina of 04/29, Hb is improved and stable. - had GIB with hgb drop to 7s-8 - GI plan as above - s/p 1 unit PRBC 05/05/2022 for hgb 6.6 in setting of GIB - q6-8 hour CBC - hemodynamically stable at this time - active type and screen (6) Coronary atherosclerosis of [place] coronary vessel: Plan: - stable, no complaints of chest pain at this time - continue statin - holding Plavix, aspirin in setting of GIB - can likely d/c Plavix indefinitely as PCI was many years ago - will monitor for now (7) Type 2 diabetes mellitus without complications: Plan: - Elevated BG recently - cont basal/bolus insulin - adjust as needed - pharmacy consulted for glycemic management - clear liquid diet for now pending colonoscopy likely 05/06/2022 (8) Ovarian cyst: Plan: nonurgent gynecology consultation for further investigation as outpatient. (9) Pulmonary nodule: Plan: repeat future CT scan in 6 months for stability. (10) Hyperparathyroidism: Plan: Takes cinacalcet. Follows with endocrinology at [facility] [place]. (11) HTN (hypertension): Plan: - normotensive - continue on metoprolol and losartan - continue to hold amlodipine as patient's BP has been stable Plan DVT proph: heparin SC - being held due to GI bleeding as above DNR/DNI Dispo-cont PCU monitoring. Benitez Gordillo MD [facility] Medicine Admission and Anticipated Discharge Date Admission Date: April 27, 2022 Subjective Patient with HTN, HLD, HFpEF, CAD, DM2, h/o CVA, hyperparathyroidism, GERD presenting with collitis and volume overload. Given IV abx with improvement in diarrhea. IV lasix with improvement in oxygenation and volume status. Had 2 episodes of GI bleeding 05/05/2022 with mild hgb drop, hemodynamically stable. GI reevaluated and plan for EGD, colonoscopy 05/06/2022. Denied chest pain, shortness of breath, n/v/d, abdominal pain, dysuria. Had a couple dark stools overnight. Required 1 unit PRBC yesterday 05/05/2022 with good response. Review of Systems Review of Systems: All systems were reviewed and negative except as indicated on subjective above. Physical Exam Physical Exam: CONSTITUTIONAL: obese, generally, NAD, appears clinically improved, slightly disheveled EYES: normal conjunctivae, no scleral icterus ENT: external ear and nose normal, MMM NECK: trachea midline RESPIRATORY: no wheezing heard, no increased respiratory effort, bibasilar crackles noted CARDIOVASCULAR: regular rate and rhythm, S1 and 2 heard without murmurs, gallops or rubs, no JVD, no peripheral edema CHEST: inspection of chest was normal GASTROINTESTINAL: soft, NT, tender to palpation in RLQ, no guarding. MUSCULOSKELETAL: generalized weakness, she is a 1 assist, head is normocephalic and atraumatic, SKIN: warm and dry NEUROLOGIC: CN 2-12 grossly intact, no sensory deficit, normal cognition, normal speech PSYCHIATRIC: alert cooperative and oriented to person, place and time. Results & Data Results & Data ([facility]) Vital Signs (Past 12 Hours) Vital Signs Temp Pulse Pulse Resp BP Pulse Ox O2 Del Method 05/06/22 09:00 Nasal Cannula 05/06/22 08:00 92 H 05/06/22 06:41 36.7 C 90 18 117/60 95 Nasal Cannula 05/06/22 03:15 36.8 C 87 18 118/62 92 Nasal Cannula 05/05/22 23:59 91 H O2 Flow Rate 05/06/22 09:00 2 05/06/22 08:00 05/06/22 06:41 3 05/06/22 03:15 3 05/05/22 23:59 Diagnostic Findings Laboratory Results WBC 25.87 K/ul (4.8-10.8) H 05/06/22 06:43 RBC 3.57 M/uL (3.93-5.22) L 05/06/22 06:43 Hgb 8.3 g/dl (12.0-16.0) L 05/06/22 06:43 Hct 25.4 % (34.1-44.9) L 05/06/22 06:43 MCV 71.1 fL (80.0-100.0) L 05/06/22 06:43 MCH 23.2 pg (25.0-34.0) L 05/06/22 06:43 MCHC 32.7 g/dL (32.0-36.0) 05/06/22 06:43 RDW Std Deviation 61.1 fL (36.4-46.3) H 05/06/22 06:43 RDW Coeff of Vanita 25.0 % (11.5-14.5) H 05/06/22 06:43 Plt Count 258 K/uL (130-400) 05/06/22 06:43 MPV 11.5 fL (9.4-12.3) 05/06/22 06:43 Immature Gran % (Auto) 3.1 % 05/06/22 06:43 Neut % (Auto) 66.2 % 05/06/22 06:43 Lymph % (Auto) 16.6 % 05/06/22 06:43 [place] % (Auto) 9.8 % 05/06/22 06:43 Eos % (Auto) 3.4 % 05/06/22 06:43 Baso % (Auto) 0.9 % 05/06/22 06:43 Neut # (Auto) 17.13 K/uL (1.4-6.5) H 05/06/22 06:43 Lymph # (Auto) 4.29 K/uL (1.2-3.4) H 05/06/22 06:43 [place] # (Auto) 2.53 K/uL (0.24-0.82) H 05/06/22 06:43 Eos # (Auto) 0.89 K/uL (0-0.50) H 05/06/22 06:43 Baso # (Auto) 0.22 K/uL (0-0.2) H 05/06/22 06:43 Immature Gran # (Auto) 0.81 K/uL (0.00-0.02) H 05/06/22 06:43 Absolute Nucleated RBC 0.06 K/uL (0-0) H 05/06/22 06:43 Nucleated RBC % (auto) 0.2 % 05/06/22 06:43 Polychromasia 2+ 05/06/22 06:43 Hypochromasia Present 04/28/22 04:13 Poikilocytosis Present 05/03/22 06:05 Anisocytosis Present 05/06/22 06:43 Microcytosis Present 05/03/22 06:05 Spherocytes 1+ 05/06/22 06:43 Target Cells 1+ 05/06/22 06:43 Tear Drop Cells 1+ 04/28/22 04:13 Ovalocytes 1+ 04/27/22 20:23 Echinocytes 1+ 05/06/22 06:43 Acanthocytes (Spur) 2+ 05/03/22 06:05 Schistocytes 1+ 05/03/22 06:05 Peripher Smr Path Cons 04/27/22 16:33 PT 13.0 Seconds (9.0-12.0) H 04/27/22 20:23 INR 1.2 (0.9-1.1) H 04/27/22 20:23 APTT 57.0 Seconds (21.0-31.0) H* 04/28/22 14:12 PTT Ratio 2.1 04/28/22 14:12 ABG pH 7.40 (7.35-7.45) 04/30/22 21:59 ABG pCO2 32 mmHg (35-46) L 04/30/22 21:59 ABG pO2 73 mmHg (80-95) L 04/30/22 21:59 ABG HCO3 20 mmol/L (19-24) 04/30/22 21:59 ABG O2 Saturation 97.4 % (90-95) H 04/30/22 21:59 ABG Base Excess -4.0 mEq/L (-9-1.8) 04/30/22 21:59 Jose Test POS (Pos) 04/30/22 21:59 Oxygen Given FiO2 30% 04/30/22 21:59 Sodium 137 mmol/L (136-145) 05/05/22 05:54 Potassium 4.5 mmol/L (3.5-5.1) 05/05/22 05:54 Chloride 101 mmol/L (98-107) 05/05/22 05:54 Carbon Dioxide 27 mmol/L (21-32) 05/05/22 05:54 Anion Gap 9 (3-11) 05/05/22 05:54 BUN 33 mg/dl (6-23) H 05/05/22 05:54 Creatinine 0.92 mg/dl (0.6-1.2) 05/05/22 05:54 Est Cr Clr Drug Dosing 47.9 ml/min 05/05/22 05:54 Est GFR ( Amer) 67.7 ml/min 05/05/22 05:54 Est GFR (Non-Af Amer) 58.4 ml/min 05/05/22 05:54 BUN/Creatinine Ratio 35.9 (10-20) H 05/05/22 05:54 Glucose 221 mg/dl (70-99(Fasting)) H 05/05/22 05:54 POC Glucose 222 mg/dl (70-99) H 05/06/22 11:13 Lactate 1.5 mmol/L (0.4-2.0) 04/30/22 00:36 Calcium 7.8 mg/dl (8.5-10.1) L 05/05/22 05:54 Phosphorus 2.0 mg/dl (2.5-4.9) L D 05/06/22 06:43 Magnesium 1.7 mg/dl (1.7-2.4) 05/06/22 06:43 Iron < 10 mcg/dl (35-150) L 04/29/22 07:05 TIBC TNP 04/29/22 07:05 Unsaturated IBC 308 mcg/dl (155-355) 04/29/22 07:05 Transferrin % Sat TNP 04/29/22 07:05 Ferritin 59.7 ng/ml (8-388) 04/29/22 07:05 Total Bilirubin 1.3 mg/dl (0.2-1.0) H 04/28/22 04:13 AST 30 U/L (13-39) 04/28/22 04:13 ALT 14 U/L (7-52) 04/28/22 04:13 Alkaline Phosphatase 42 U/L (34-104) 04/28/22 04:13 Troponin I High Sens 540.7 pg/ml (0-14) H* 04/28/22 04:13 B-Natriuretic Peptide 416 pg/ml (0-100) H 05/01/22 05:41 Total Protein 6.3 gm/dl (6.0-8.3) 04/28/22 04:13 Albumin 3.1 gm/dl (3.4-5.0) L 04/28/22 04:13 Globulin 3.2 gm/dl (2.5-4.0) 04/28/22 04:13 Albumin/Globulin Ratio 1.0 (0.9-2) 04/28/22 04:13 Lipase 16 U/L (11-82) 04/27/22 12:51 Vitamin B12 371 pg/ml (180-914) 04/29/22 07:05 Folate > 22.30 ng/ml (>5.38) 04/29/22 07:05 Procalcitonin 2.72 ng/ml (0-0.5) H 04/30/22 06:12 Urine Color Yellow 04/27/22 14:28 Urine Appearance Clear (Clear) 04/27/22 14:28 Urine pH 5.0 (4.5-7.5) 04/27/22 14:28 Ur Specific [place] 1.015 (1.000-1.030) 04/27/22 14:28 Urine Protein Trace (Negative) H 04/27/22 14:28 Urine Glucose (UA) Negative (Negative) 04/27/22 14:28 Urine Ketones Trace (Negative) H 04/27/22 14: Urine Blood Negative (Negative) 04/27/22 14: Urine Nitrite Negative (Negative) 04/27/22 14: Urine Bilirubin Negative (Negative) 04/27/22 14: Urine Urobilinogen Negative (Negative) 04/27/22 14:28 Ur Leukocyte Esterase Trace (Negative) H 04/27/22 14:28 Urine WBC (Auto) 1-5 /hpf (0-5) 04/27/22 14:28 Urine RBC (Auto) 0-4 /hpf (0-4) 04/27/22 14:28 U Hyaline Cast (Auto) 1-5 /lpf (0-5) 04/27/22 14:28 U Epithel Cells (Auto) 5-10 /lpf (0-5) H 04/27/22 14:28 Urine Bacteria (Auto) Negative (Negative) 04/27/22 14:28 Stool Occult Bld Scrn Positive (Negative) A 05/05/22 06:15 Stl C. cayetanensis PCR Not Detected (NotDetected) 05/02/22 04:01 Stool Rotavirus A PCR Not Detected (NotDetected) 05/02/22 04:01 Stl Adenov F 40/41 PCR Not Detected (NotDetected) 05/02/22 04:01 Stool Astrovirus (PCR) Not Detected (NotDetected) 05/02/22 04:01 Stool Campylobacter PCR Not Detected (NotDetected) 05/02/22 04:01 Stl C. diff Tox B Gene Negative Cdiff Gene (Neg) 05/02/22 04:01 Stool Cryptosporidium PCR Not Detected (NotDetected) 05/02/22 04:01 Stl E.coli Shiga Tox PCR Not Detected (NotDetected) 05/02/22 04:01 Stl Enterotoxigenic E PCR Not Detected (NotDetected) 05/02/22 04:01 Stool EPEC (PCR) Not Detected (NotDetected) 05/02/22 04:01 Stool EAEC (PCR) Not Detected (NotDetected) 05/02/22 04:01 Stl E. histolytica PCR Not Detected (NotDetected) 05/02/22 04:01 Stool Giardia Lamblia PCR Not Detected (NotDetected) 05/02/22 04:01 Stool Salmonella PCR Not Detected (NotDetected) 05/02/22 04:01 Stool Sapovirus (PCR) Not Detected (NotDetected) 05/02/22 04:01 Stl P. shigelloides PCR Not Detected (NotDetected) 05/02/22 04:01 Stl Shigella/EIEC PCR Not Detected (NotDetected) 05/02/22 04:01 St Y.enterocolitica PCR Not Detected (NotDetected) 05/02/22 04:01 Stool Vibrio (PCR) Not Detected (NotDetected) 05/02/22 04:01 Stl Vibrio cholerae PCR Not Detected (NotDetected) 05/02/22 04:01 Stl Norovirus GI/GII PCR Not Detected (NotDetected) 05/02/22 04:01 SARS-CoV-2, RNA, NAAT NEGATIVE (NEGATIVE) 04/27/22 13:30 Blood Type A Positive 05/05/22 08:15 Antibody Screen NEGATIVE 05/05/22 08:15 Crossmatch See Detail 05/05/22 08:15 Impressions Abdomen/Pelvis CT 04/27/22 13:[address] WITH IV CONTRAST CT DOSE: 908.81 mGycm HISTORY: Right lower quadrant pain. TECHNIQUE: Multiaxial CT images of the abdomen and pelvis were performed following the use of intravenous contrast. A dose lowering technique was utilized adhering to the principles of ALARA. COMPARISON STUDY: None. FINDINGS: Interstitial thickening at the lung bases is noted. This may be chronic. There are mild dependent changes at the lung bases. Partially visualized 6 mm nodule within the left lower lobe there is an additional 8 mm irregular nodule within the left lower lobe on image 29. No pneumoperitoneum. No pneumatosis. No fractures within the visualized osseous structures. The heart is borderline enlarged. Small right upper quadrant abdominal wall defect/hernia measuring 2 cm. This favors a prior laparoscopic port site given the prior cholecystectomy. There are are scattered dropped gallstones within the right side of the abdomen and within the anterior abdominal wall measuring up to 2.3 cm. Nodular contour to the liver consistent with cirrhosis. Moderate bile duct dilatation likely due to the patient's postcholecystectomy state. The spleen, pancreas, and right adrenal gland are unremarkable. There is mild thickening of the left adrenal gland. There is a 4 mm stone within the right kidney. No left renal calculi. No ureteral calculi. No hydronephrosis. There are few scattered hypodensities within the kidneys. The majority these are technically too small to characterize but statistically represent cysts. No retroperitoneal lymphadenopathy. 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 No pelvic lymphadenopathy or pelvic free fluid. The bladder is unremarkable. Prior hysterectomy. There is a 7.2 cm right ovarian cyst. This could be pathologic in a postmenopausal female. Colonic diverticulosis. No evidence for acute diverticulitis. Mild circumferential thickening within the ascending colon with mild pericolonic fat stranding. There is also mild circumferential thickening of the distal terminal ileum near the ileocecal valve. This is consistent with a nonspecific ileocolitis and favors an infectious or inflammatory process. A portal colopathy could also a similar appearance but is considered less likely. No evidence for bowel obstruction. IMPRESSION: 1. Mild circumferential thickening within the ascending colon with mild pericolonic fat stranding. There is also mild circumferential thickening of the distal terminal ileum near the ileocecal valve. This is consistent with a nonspecific ileocolitis and favors an infectious or inflammatory process. A portal colopathy could also a similar appearance but is considered less likely. 2. Cirrhotic liver. 3. There are 2 irregular nodule within the left lower lobe with the largest measuring 8 mm. Follow-up chest CT in 6 months is recommended to ensure stability/resolution. 4. Right-sided nephrolithiasis. No ureteral stones. No hydronephrosis. 5. A 7.2 cm right ovarian cyst. This is considered to be pathologic in a postmenopausal female. Follow-up nonemergent gynecologic consultation recommended. 6. Additional findings as described above. ACT 112: Negative or not required by law. Electronically signed by: Pee Parker M.D. 04/27/2022 3:01 PM Venous Doppler Study 04/27/22 16:59 BILATERAL LOWER EXTREMITY VENOUS DOPPLER HISTORY: Lower extremity pain. COMPARISON STUDY: None. FINDINGS: There is normal compressibility, flow, and augmentation within the bilateral lower extremity deep venous systems. IMPRESSION: No DVT within the right or left lower extremity. ACT 112: Negative or not required by law. Electronically signed by: Pee Parker M.D. 04/27/2022 5:59 PM KUB X-Ray 05/02/22 07:00 KUB HISTORY: f/u colon dilatation COMPARISON: KUB 05/01/2022. FINDINGS: Prior cholecystectomy. Borderline distended gas-filled colon measuring up to 6 cm. This is similar to the prior study. Nondilated gas-filled loops of small bowel again noted. Scattered throughout gallstone seen within the right side of the abdomen. Trace bilateral pleural effusions. No renal calculi. No ureteral calculi. No pneumoperitoneum or pneumatosis. IMPRESSION: No significant change in the borderline colonic distention. ACT 112: Negative or not required by law. Electronically signed by: Pee Parker M.D. 05/02/2022 10:39 AM Chest X-Ray 05/05/22 12:42 XR chest 1V portable CLINICAL HISTORY: pulm congestion TECHNIQUE: Single frontal radiograph of the chest was obtained. Comparison: Comparison is made to chest radiograph 05/03/2022 FINDINGS: No lines and tubes are seen. Cardiomegaly is noted. The lungs are clear. No evidence of pleural effusion or pneumothorax. IMPRESSION: No acute chest disease. ACT 112: Negative or not required by law. Electronically signed by: Kingston Dunlap M.D. 05/05/2022 1:45 PM Medications Administered Current Inpatient Medications Acetaminophen (Acetaminophen 500 Mg Tab) 1,000 mg PO Q8H DESIREE Stop: 06/01/22 11:59 Last Admin: 05/06/22 04:06 Dose: Not Given Amlodipine Besylate (Amlodipine Besylate 5 Mg Tab) 5 mg PO QAM DESIREE Stop: 05/28/22 08:59 Last Admin: 04/28/22 08:09 Dose: 5 mg Aspirin (Aspirin 81 Mg Ectab) 81 mg PO DAILY [facility] Stop: 05/28/22 08:59 Last Admin: 05/04/22 08:02 Dose: 81 mg Cinacalcet (Cinacalcet Hcl 30 Mg Tab) 30 mg PO DAILY [facility] Stop: 05/28/22 08:59 Last Admin: 05/06/22 08:46 Dose: 30 mg Clopidogrel Bisulfate (Clopidogrel Bisulfate 75 Mg Tab) 75 mg PO QAM [facility] Stop: 05/28/22 08:59 Last Admin: 05/04/22 08:02 Dose: 75 mg Dextrose (Dextrose 50% 50 Ml Syringe) 25 - 50 ml IV UD PRN; Protocol PRN Reason: Hypoglycemia Protocol Stop: 05/27/22 19:03 Furosemide (Furosemide 40 Mg Tab) 40 mg PO [id number] [facility] Stop: 06/03/22 16:59 Last Admin: 05/06/22 08:48 Dose: 40 mg Glucagon (Glucagon For Inj 1 Mg Vial) 1 mg SQ UD PRN; Protocol PRN Reason: Hypoglycemia Protocol Stop: 05/27/22 19:03 Glucose (Glucose 40% Gel 15 Gm Tube) 15 - 30 gm PO UD PRN; Protocol PRN Reason: Hypoglycemia Protocol Stop: 05/27/22 19:03 Glucose (Glucose 10 Tab/Tube) 4 - 8 tab PO UD PRN; Protocol PRN Reason: Hypoglycemia Treatment Stop: 05/27/22 19:03 Heparin Sodium (Porcine) (Heparin Sod 5,000 Unit/0.5 Ml Vial) 5,000 units SQ Q12 [facility] Stop: 05/28/22 20:59 Last Admin: 05/04/22 21:06 Dose: 5,000 units Cefepime HCl 2,000 mg/ Syringe 20 mls @ 5 mls/min IV Q12H [facility]; Protocol Stop: 05/07/22 13:59 Last Admin: 05/06/22 02:22 Dose: 5 mls/min Metronidazole (Flagyl) 500 mg in 100 mls @ 100 mls/hr IV Q8H [facility] Stop: 05/07/22 10:29 Last Infusion: 05/06/22 03:40 Dose: Infused Insulin Aspart (Insulin Aspart Per Unit) 0 units SC ACHS [facility] Stop: 05/27/22 20:59 Last Admin: 05/06/22 08:49 Dose: 1 units Insulin Glargine (Lantus Per Unit Charge) 0 - 20 units SQ BID [facility] Stop: 05/27/22 20:59 Last Admin: 05/06/22 08:49 Dose: 20 units Losartan Potassium (Losartan Potassium 25 Mg Tab) 25 mg PO DAILY [facility] Stop: 05/28/22 08:59 Last Admin: 05/06/22 08:46 Dose: 25 mg Magnesium Oxide (Magnesium Oxide 400 Mg Tab) 400 mg PO DAILY [facility] Stop: 05/28/22 08:59 Last Admin: 04/30/22 07:48 Dose: 400 mg Metoprolol Tartrate (Metoprolol Tartrate 25 Mg Tab) 12.5 mg PO BID [facility] Stop: 05/27/22 20:59 Last Admin: 05/06/22 08:47 Dose: 12.5 mg Miscellaneous (Carbohydrates For Hypoglycemia ) 15 - 30 gm PO UD PRN PRN Reason: Hypoglycemia Protocol Stop: 05/27/22 19:03 Miscellaneous Information (Pharmacy Glycemic Mgmt Consult) 1 each N/A UD PRN; Protocol PRN Reason: Consult Stop: 06/05/22 11:43 Oxycodone HCl (Oxycodone Hcl Ir 5 Mg Tab (Immediate Release)) 5 mg PO Q4H PRN PRN Reason: Pain Stop: 05/14/22 23:48 Last Admin: 05/01/22 05:11 Dose: 5 mg Pantoprazole Sodium (Pantoprazole 40 Mg Tab) 40 mg PO DAILY [facility] Stop: 05/28/22 08:59 Last Admin: 05/06/22 08:48 Dose: 40 mg Simvastatin (Simvastatin 10 Mg Tab) 10 mg PO DAILY [facility] Stop: 05/28/22 08:59 Last Admin: 04/30/22 07:48 Dose: 10 mg
[2022-05-06] MEDS ORDERED: LANTUS PER UNIT CHARGE SQ ONE (12:15)
--- NOTE | 2022-05-06 12:32 | CT Scan Report ---
CT ANGIOGRAPHY OF THE ABDOMEN AND PELVIS CLINICAL HISTORY: Right sided colitis; r/o vascular occlusion. COMPARISON STUDY: CT of the abdomen and pelvis April 27, 2022. KUB May 02, 2022. TECHNIQUE: Helical axial images of the abdomen and pelvis were obtained during arterial phase followi ng intravenous injection 105 cc of Optiray 320 IV. Sagittal and coronal reconstructions were viewed a s well as maximal intensity projections on an independent 3-D workstation. Automated exposure control was utilized for the study. A dose lowering technique was utilized adhering to the principles of [place]. FINDINGS: Interlobular septal thickening suggests mild pulmonary edema. Small bilateral pleural effus ions have developed since CT of April 27, 2022. Associated airspace opacities favor atelectasis. N o pneumatosis, free air or portal venous gas is present. The liver is cirrhotic. No lesions are ident ified. Biliary ductal dilatation is likely related to previous cholecystectomy. Several dropped galls tones. The adrenal glands and pancreas are unremarkable. There is a 5 mm right renal calculus. A few suspected renal cysts are present. No hydronephrosis. Upper abdominal collaterals are present. There is hypoenhancement of the majority of the spleen. This is due to extensive atherosclerotic disease wi thin the splenic artery with multifocal severe stenoses/short segment occlusion with distal reconstit ution. There is severe stenosis versus short segment occlusion at the origin of the celiac axis. Ther e is severe stenosis at the origin of the superior mesenteric artery. The remainder of the superior m esenteric artery and branches are patent. Moderate stenosis at the origin of the inferior mesenteric artery is noted. 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 The a rosario is ectatic at this level, measuring 2.6 cm. 2 right renal arteries are noted. Severe stenosis of the right renal arteries is noted. There is moderate stenosis of the left renal artery. Moderate to severe stenosis at the origin of the left external iliac artery is present. There is no evidence for a bowel obstruction. Persistent wall thickening of the cecum is noted. There has been interval develo pment of an adjacent rim-enhancing fluid collection within the paracolic gutter, measuring 5.2 x 1.7 cm. There is no extraluminal gas. Cecal wall thickening has progressed since prior CT. No additional sites of bowel wall thickening are present. There is trace ascites. Dropped gallstones are again note d. A 7 cm cystic right adnexal lesion is again noted. A Kendall balloon within the bladder is present. IMPRESSION: 1. Progression of cecal wall thickening consistent with colitis. Interval development of an adjacent rim-enhancing 5.2 x 1.7 cm fluid suggestive of a developing abscess. No extraluminal gas however myke roperforation cannot be excluded. Close clinical follow-up is recommended. The findings favor a nonsp ecific right-sided colitis however a large cecal diverticulum could appear similar. Discussed with Ebony Dias at time of dictation. 2. Extensive atherosclerotic disease of the abdominal aorta and branch vessels. Severe stenosis versu s short segment occlusion of the origin of the celiac axis. Severe stenosis at the origin of the supe rior mesenteric artery and moderate stenosis at the origin of the inferior mesenteric artery. 3. Hypodensity involving the majority of the spleen. The spleen appears to be mildly enhancing and th erefore this suggests hypoperfusion. A large developing splenic infarct could appear similar. 4. Cirrhosis. Upper abdominal collaterals indicative of portal hypertension. 5. Interval development of small bilateral pleural effusions and mild interstitial pulmonary edema. ACT 112: Negative or not required by law. Electronically signed by: Karson Goddard M.D. 05/06/2022 12:31 PM
[2022-05-06 12:35] LABS: Albumin Globulin Ratio 0.8 (0.9-2); Albumin Level 2.7 gm/dl (3.4-5.0); BUN Creatinine Ratio 48.1 (10-20); Bilirubin,Total 1.4 mg/dl (0.2-1.0); Creatinine Clr Calc Pharmacy 57.1 ml/min; Est GFR (African American) 83.9 ml/min; Est GFR (Non-African American) 72.4 ml/min; Globulin 3.3 gm/dl (2.5-4.0); Potassium 4.3 mmol/L (3.5-5.1)
--- NOTE | 2022-05-06 12:40 | Pharmacy Report ---
Pharmacy Glycemic Short Note 2 - Date of Service May 06, 2022 - Glycemic Short BSG Results (Last 24 hours): 05/05/22 05/05/22 05/05/22 16:07 16:09 20:27 POC Glucose 323 H* 317 H* 330 H* 05/06/22 05/06/22 07:17 11:13 POC Glucose 240 H 222 H OUTPATIENT ANTIDIABETIC REGIMEN: * glipizide 10 mg PO BID * Metformin 1000 mg PO BID * Novolin 70/30 - 75 units qAM + 25 units qPM ASSESSMENT: * Patient is an 81 y/o F with a PMH of T2DM. Patient has been hospitalized since 04/27/22. * BSGs yesterday were [phone] * Patient received 91 units of insulin yesterday (40 units of basal and 51 units of bolus). * Fasting today is 240 mg/dL. Patient was NPO but changed to clear liquid diet. * Lunch BSG was 222 mg/dL. * Increase basal to 50 units today (~20%) by giving additional 10 units with lunch. Scale for tomorrow with set titration in for up to 60 units. (additional 20%). * Tighten Novolog today since BSGs trend upwards throughout the day. PLAN FOR INPATIENT GLYCEMIC CONTROL: * Hold outpatient oral diabetes medications * Basal insulin * Lantus 25 units SQ BID (30 units if BSG > 180 mg/dL) starting 05/06/22 AM * Bolus insulin * NovoLog per scale ACHS or Q6hrs while NPO * Goal Range: Low 110 mg/dL - High 140 mg/dL * Correction Factor: 12 mg/dL/unit * Nutritional / Prandial insulin per carb ratio of 1 unit per 4 grams CHO consumed
--- NOTE | 2022-05-06 13:37 | Surgery Progress Note ---
Date of Service May 06, 2022 Assessment & Plan (1) Ileocolitis: Plan: Patient has CT angiogram performed which shows some pericolonic inflammation And a small mount of fluid in the area of the cecum and right colon which may be a contained perforation of diverticulum She also has evidence of cirrhosis, and portal hypertension and severe atherosclerosis Currently we are treating her also for GI bleeding-her subcu heparin, Plavix and aspirin have been stopped Patient was doing very well in treating her colitis with her diet and symptoms until she had the GI bleeding Her abdomen is soft with minimal pain I feel we should continue with medical management and that surgery would most likely require a major colon resection And with patient's comorbidity of cardiopulmonary issues as well as her cirrhosis and portal hypertension she is at extreme Risk of postoperative complications I have discussed this with the medical team and the patient's daughter, Madelyn- she seems to understand and agree with the plan I will also discussed this with my partner Dr. Bashir Admission and Anticipated Discharge Date Admission Date: April 27, 2022 Results & Data ([facility]) Vital Signs (Past 12 Hours) Vital Signs Temp Pulse Pulse Resp BP Pulse Ox O2 Del Method 05/06/22 12:19 36.6 C 91 H 19 157/56 H 95 Nasal Cannula 05/06/22 09:00 Nasal Cannula 05/06/22 08:00 92 H 05/06/22 06:41 36.7 C 90 18 117/60 95 Nasal Cannula 05/06/22 03:15 36.8 C 87 18 118/62 92 Nasal Cannula O2 Flow Rate 05/06/22 12:19 2 05/06/22 09:00 2 05/06/22 08:00 05/06/22 06:41 3 05/06/22 03:15 3 PG Care Time/CCT Total # of Minutes Spent Total Time Spent with Patient: Total time spent is greater than 50% in coordination of care (as documented) at patient's floor/unit and/or counseling patient: Coding Level of Care Code None Diagnoses Ileocolitis K52.9
[2022-05-06 15:09] LABS: Hematocrit (blood only) 27.3 % (34.1-44.9); Mean Corpuscular Hemoglobin 23.8 pg (25.0-34.0); Mean Corpuscular Volume 72.2 fL (80.0-100.0); Mean Platelet Volume 10.7 fL (9.4-12.3); Nucleated RBC # (auto) 0.05 K/uL (0-0); Nucleated RBC % (auto) 0.2 %; Platelet Count 288 K/uL (130-400); RDW Coefficient of Variation 26.3 % (11.5-14.5); RDW Standard Deviation 64.7 fL (36.4-46.3); Red Blood Count 3.78 M/uL (3.93-5.22); White Blood Count 27.42 K/ul (4.8-10.8)
--- NOTE | 2022-05-06 18:21 | Discharge Summary ---
Date of Service May 08, 2022 Admission HPI Per Admitting Provider Patient is 81 y/o F with PMH HTN, dyslipidemia, chronic diastolic heart failure, CAD, DM II, CVA, hyperparathyroidism, GERD presented to ER wt c/o abdominal pain started yesterday. History obtained from patient and chart review. Patient reports yesterday sudden onset of diarrhea, nausea and vomiting. Reports approximately 4-5 episodes of diarrhea, last was this morning prior to ER arrival. Approximately 10 episodes of vomiting. Then started with RLQ sharp and dull abdominal pain. Patient states ate sub yesterday and significant other had other half of sub. No other ill contacts. Denies chills, known fever, diaphoresis, SOB, CP. Here in ER patient states nausea is much improved and is requesting food. Reports chronic cough in morning of yellow sputum. Denies any increased cough. States chronic BLE with right leg chronically more swollen than left. Recent hospitalization 01/22/2022-01/29/2022 for acute hypoxic respiratory failure secondary to acute on chronic CHF, pneumonia, patient also had acute CVA . Denies hematemesis, melena, hematochezia, BROWN, dizziness, syncope, vision changes, neck pain, CP, SOB, orthopnea, palpitations, sore throat, choking, otalgia, rhinorrhea, paresthesias, extremity weakness, rashes, urinary symptoms. Admission Exam Per Admitting Provider General: no distress, overweight Head: normocephalic, atraumatic Eyes: conjunctiva non-injected, anicteric ENT: normal inspection external ears, nose, mucous membranes dry Neck: supple, trachea midline Lungs: clear, no respiratory distress, no wheezing/rhonchi/rales CV: RRR, no murmur, +1pretibial edema Abd: protuberant, normal BS, soft, +tenderness to palpation RLQ, LLQ Ext: no cyanosis, no erythema, no calf tenderness; RLE larger than LLE with incr eased warmth. Non-tender. Neuro: A&O x 3, no focal deficits noted, normal affect Skin: warm, dry Principal Diagnosis ischemic colitis Discharge Exam CONSTITUTIONAL: obese, generally, NAD, appears clinically improved, slightly disheveled EYES: normal conjunctivae, no scleral icterus ENT: external ear and nose normal, MMM NECK: trachea midline RESPIRATORY: no wheezing heard, no increased respiratory effort, bibasilar crackles noted CARDIOVASCULAR: regular rate and rhythm, S1 and 2 heard without murmurs, gallops or rubs, no JVD, no peripheral edema CHEST: inspection of chest was normal GASTROINTESTINAL: soft, NT, tender to palpation in RLQ, no guarding. MUSCULOSKELETAL: generalized weakness, she is a 1 assist, head is normocephalic and atraumatic, SKIN: warm and dry NEUROLOGIC: CN 2-12 grossly intact, no sensory deficit, normal cognition, normal speech PSYCHIATRIC: alert cooperative and oriented to person, place and time. Discharge Data Allergies Allergy/AdvReac Type Severity Reaction Status Date / Time No Known Allergies Allergy Verified 04/27/22 15:53 Consultations 04/27/22 15:18 Consult General Surgery Stat ED Decision to Admit Stat 04/27/22 19:04 Consult Cardiology Routine 04/29/22 09:07 Consult Gastroenterology Routine 05/01/22 07:50 Consult Cardiology Routine 05/01/22 10:59 Consult Nephrology Routine 05/05/22 07:17 Consult Gastroenterology Routine Procedures Performed Operation Date: 05/06/22 15:45 <No data on this case meets the specified criteria> Ordered Studies 04/27/22 13:10 CT abd pelvis IV con only Stat 04/27/22 16:59 US venous doppler LE BI Urgent 05/06/22 09:52 CTA abdomen pelvis w con [CT angio abdomen pelvis w con] Routine Hospital Course (1) GI bleed: - noted 2 maroon colored stools this morning 05/05/2022 that were large - HR elevated slightly, responded to IVF - active type and screen - hgb to 6.6 05/05/2022 - 1 unit PRBC transfused - q6-8h CBC - clear liquid diet through the weekend - GI reconsulted - plan for EGD/colonoscopy 05/06/2022 - Cardiology for pre-op risk stratification - CTA abdomen showed developing abscess near cecum and extensive atherosclerotic disease in celiac axis. Read as follows: 1. Progression of cecal wall thickening consistent with colitis. Interval development of an adjacent rim-enhancing 5.2 x 1.7 cm fluid suggestive of a d eveloping abscess. No extraluminal gas however microperforation cannot be excluded. Close clinical follow-up is recommended. The findings favor a nonspecific right-sided colitis however a large cecal diverticulum could appear similar. Discussed with Aaliyah Dias at time of dictation. 2. Extensive atherosclerotic disease of the abdominal aorta and branch vessels. 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 - Reached out to [facility] Vascular surgery who recommended transfer for multidisciplinary surgical evaluation and intervention with General surgery and Vascular surgery - patient accepted for transfer - continue to monitor (2) Ischemic colitis: - see above (3) Acute respiratory failure: - respiratory 2/2 fluid overload - She had an +8L fluid balance since admission noted on 04/30. She went into respiratory failure requiring high flow oxygen and received more aggressive IV diuresis and metolazone. - she is breathing well on 2LPM via nasal canula. - Cont diuresis - switched to PO by Cardiology. - Appreciate nephrology and cardiology assistance with this effort. - Cont Kendall in place. - Strict I/Os. - Ambulate with assist as tolerated - 2 step with 2L oxygen NC with activity - patient is for rehab on discharge (4) Leukocytosis: - elevated WBC to 25 in the setting of GIB vs sepsis - hemodynamically stable, afebrile - unclear etiology at this time - repeat blood cutlures drawn 05/05/2022 - empiric abx with cefepime, flagyl given ileocolitis - will trend for now (5) Ileocolitis: Uncertain cause, stool studies obtained this am are negative. She also has the appearance of an ileus on KUB which likely caused the issue of no BM for several days. - resuscitated on admission aggressively given her initial clinical picture and elevated lactate which has now resolved. - now s/p broad spectrum abx after 8 days of therapy - Vanc PO stopped with negative stool culture. - abdominal pain improved and diarrhea also improved - She is tolerating PO and will continue to advance diet to ADA solid food - had elevation of WBC which could represent stress response in setting of GI bleed as noted above vs acute infection - blood cultures repeated and empiric abx with cefepime and flagyl for now pending further work up - will monitor for now - CTA abdomen pelvis as above concerning for ischemic colitis (6) Anemia: - Baseline hemoglobin around 8.7. She was given a blood transfusion on the agustina of 04/29, Hb is improved and stable. - had GIB with hgb drop to 7s-8 - GI plan as above - s/p 1 unit PRBC 05/05/2022 for hgb 6.6 in setting of GIB - q6-8 hour CBC - hemodynamically stable at this time - active type and screen (7) Coronary atherosclerosis of [place] coronary vessel: - stable, no complaints of chest pain at this time - continue statin - holding Plavix, aspirin in setting of GIB - can likely d/c Plavix indefinitely as PCI was many years ago - will monitor for now (8) Type 2 diabetes mellitus without complications: - Elevated BG recently - cont basal/bolus insulin - adjust as needed - pharmacy consulted for glycemic management - clear liquid diet for now pending colonoscopy likely 05/06/2022 (9) Ovarian cyst: nonurgent gynecology consultation for further investigation as outpatien (10) Pulmonary nodule: repeat future CT scan in 6 months for stability. (11) Hyperparathyroidism: Takes cinacalcet. Follows with endocrinology at [facility]. (12) HTN (hypertension): - normotensive - continue on metoprolol and losartan - continue to hold amlodipine as patient's BP has been stable Plan DVT proph: heparin SC - being held due to GI bleeding as above DNR/DNI Dispo- telemetry Benitez Gordillo MD [facility] Medicine Total Time Total Time Spent Total Time Spent (In Minutes): 63 Total Time Includes: Examination of the Patient, Discharge Planning, Medication Reconciliation and Communication With Other Providers Discharge Plan Discharge Items Patient Disposition: Transfer Acute Care Hospital Reason For Visit: ABD PAIN Discharge Diagnosis: ischemic colitis Health Concerns: Current Inpatient Medications Acetaminophen (Acetaminophen 500 Mg Tab) 1,000 mg PO Q8H DESIREE Amlodipine Besylate (Amlodipine Besylate 5 Mg Tab) 5 mg PO QAM DESIREE Aspirin (Aspirin 81 Mg Ectab) 81 mg PO DAILY DESIREE ON HOLD Cinacalcet (Cinacalcet Hcl 30 Mg Tab) 30 mg PO DAILY DESIREE Clopidogrel Bisulfate (Clopidogrel Bisulfate 75 Mg Tab) 75 mg PO QAM DESIREE ON HOLD Dextrose (Dextrose 50% 50 Ml Syringe) 25 - 50 ml IV UD PRN; Protocol PRN Reason: Hypoglycemia Protocol Furosemide (Furosemide 40 Mg Tab) 40 mg PO BID17 DESIREE Glucagon (Glucagon For Inj 1 Mg Vial) 1 mg SQ UD PRN; Protocol PRN Reason: Hypoglycemia Protocol Glucose (Glucose 40% Gel 15 Gm Tube) 15 - 30 gm PO UD PRN; Protocol PRN Reason: Hypoglycemia Protocol Glucose (Glucose 10 Tab/Tube) 4 - 8 tab PO UD PRN; Protocol PRN Reason: Hypoglycemia Treatment Heparin Sodium (Porcine) (Heparin Sod 5,000 Unit/0.5 Ml Vial) 5,000 units SQ Q12 DESIREE ON HOLD Cefepime HCl 2,000 mg/ Syringe 20 mls @ 5 mls/min IV Q12H DESIREE; Protocol Last Admin: 05/06/22 14:00 Dose: 5 mls/min Metronidazole (Flagyl) 500 mg in 100 mls @ 100 mls/hr IV Q8H DESIREE Last Infusion: 05/06/22 13:31 Dose: Infused Insulin Aspart (Insulin Aspart Per Unit) 0 units SC ACHS DESIERE Stop: 05/27/22 20:59 Last Admin: 05/06/22 17:01 Dose: 21 units Insulin Glargine (Lantus Per Unit Charge) 0 - 20 units SQ BID DESIREE; Protocol Stop: 05/27/22 20:59 Last Admin: 05/06/22 08:49 Dose: 20 units Losartan Potassium (Losartan Potassium 25 Mg Tab) 25 mg PO DAILY DESIREE Magnesium Oxide (Magnesium Oxide 400 Mg Tab) 400 mg PO DAILY DESIREE Metoprolol Tartrate (Metoprolol Tartrate 25 Mg Tab) 12.5 mg PO BID DESIREE Miscellaneous (Carbohydrates For Hypoglycemia ) 15 - 30 gm PO UD PRN PRN Reason: Hypoglycemia Protocol Miscellaneous Information (Pharmacy Glycemic Mgmt Consult) 1 each N/A UD PRN; Protocol PRN Reason: Consult Oxycodone HCl (Oxycodone Hcl Ir 5 Mg Tab (Immediate Release)) 5 mg PO Q4H PRN PRN Reason: Pain Pantoprazole Sodium (Pantoprazole 40 Mg Tab) 40 mg PO DAILY DESIREE Simvastatin (Simvastatin 10 Mg Tab) 10 mg PO DAILY DESIREE Activity: As commented below Activity Comment: per accepting hospital Non-emergency contact: Primary Care Provider, Surgeon and Professor Of Business Call non-emergency contact if: you have any medication questions and your symptoms worsen Follow-up/Referrals: Alexy Al MD [Primary Care Provider] - Diet: Carb Consistent or DM2 Addtl Attending Provider Instructions: You were admitted for abdominal pain, found to have sepsis due to GI infection, started on IV fluids and antibiotics with some improvement. You got volume overloaded and required medication to help you urinate out the fluid with good response and oxygen requirements decreased. You continued to have infection in the GI track and then had bleeding from your GI track. Your Plavix and aspirin were stopped and bleeding slowed down. You had a CTA of your abdomen (CAT scan with contrast of the abdomen) that showed narrowing of multiple blood vessels in your abdomen and worsening infection in the colon. GI recommended transfer for vascular surgery evaluation and possible intervention. I spoke with vascular surgery at [facility] in [place], [place] and they feel transfer to [facility] is warranted and you were accepted for transfer. Addtl Dye Room Helper Provider Instructions: There are 2 irregular nodule within the left lower lobe with the largest measuring 8 mm. Follow-up chest CT in 6 months is recommended to ensure stability/resolution. A 7.2 cm right ovarian cyst. This is considered to be pathologic in a postmenopausal female. Follow-up nonemergent gynecologic consultation recommended. Pending Studies at Discharge: No Stand-Alone Forms: My [facility] Skilled Items Patient informed of condition?: Yes DNR: Yes Discharge Level of Care: Other Communicable Disease: No Discharge Prognosis: Stable Lines: Peripheral IV Urinary Catheter: Yes Medications and DC Order Prescriptions: Continued vitamin B complex Tablet Extended Release 1 tab PO DAILY alendronate 70 mg tablet 70 mg PO WK Novolin 70/30 U-100 Insulin 100 unit/mL (70-30) suspension See Rx Instructions .ROUTE .COMPLEX Rx Instructions: PER PT "TOOK 80 UNITS THIS AM, 04/27/22 BECAUSE DIDN'T TAKE ANY LAST NIGHT, 04/26/22". NORMALLY TAKES 75 UNITS W/BREAKFAST, THEN 25 UNITS W/SUPPER. metformin 1,000 mg tablet 1,000 mg PO BID cinacalcet 30 mg tablet 30 mg PO DAILY biotin 1 mg Tablet 1 mg PO TID Rx Instructions: Take 1 tab in am, 1 tab at noon, 1 tab before hs simvastatin 10 mg tablet 10 mg PO DAILY losartan 25 mg tablet 25 mg PO DAILY [id number] Tablet 1 tab PO DAILY glucosamine-chondroitin [Osteo Bi-Flex] 250-200 mg Tablet 1 tab PO DAILY Rx Instructions: unknown strength potassium gluconate 595 mg (99 mg) Tablet 595 mg PO DAILY clopidogrel 75 mg Tablet 75 mg PO QAM Qty: 60 0RF metoprolol tartrate 25 mg Tablet 12.5 mg PO BID Qty: 30 0RF magnesium oxide 400 mg (241.3 mg magnesium) Tablet 400 mg PO DAILY Qty: 60 0RF furosemide [Lasix] 40 mg tablet 40 mg PO DAILY Qty: 30 0RF pantoprazole 40 mg Tablet,Delayed Release (Dr/Ec) 40 mg PO DAILY Qty: 30 0RF glipizide 10 mg Tablet 10 mg PO BID amlodipine 5 mg tablet 5 mg PO QAM aspirin 81 mg Tablet,Delayed Release (Dr/Ec) 81 mg PO DAILY benzonatate [Tessalon Perles] 100 mg Capsule 100 mg PO TID PRN (Reason: Cough) Discharge Orders: Discharge Order (Routine); Ordered 05/08/22 Ordered By: Benitez Gordillo Admission Data Admit Date/Time: 04/27/22 15:56 Attending Provider: Benitez Gordillo Admit Provider: Macey Lyons Primary Care Provider: Alexy Al Other Providers: Cedrick Carreno ; Macey Lyons ; Morro Dubon Marten B. ; Raheem eRese ; Omayra Lewis
[2022-05-06] MEDS ORDERED: LANTUS PER UNIT CHARGE SQ SCH (21:00)
[2022-05-06 22:37] LABS: Adenovirus PCR Not Detected (NotDetected); Bordetella parapertussis PCR Not Detected (NotDetected); Bordetella pertussis PCR Not Detected (NotDetected); Chlamydia pneumoniae PCR Not Detected (NotDetected); Coronavirus 229E PCR Not Detected (NotDetected); Coronavirus CoV-2 (COVID19)PCR Not Detected (NotDetected); Coronavirus HKU1 PCR Not Detected (NotDetected); Coronavirus NL63 PCR Not Detected (NotDetected); Coronavirus OC43PCR Not Detected (NotDetected); Human Metapneumovirus PCR Not Detected (NotDetected); Influenza A PCR Not Detected (NotDetected); Influenza B PCR Not Detected (NotDetected); Mycoplasma pneumoniae PCR Not Detected (NotDetected); Parainfluenza Virus 1 PCR Not Detected (NotDetected); Parainfluenza Virus 2 PCR Not Detected (NotDetected); Parainfluenza Virus 3 PCR Not Detected (NotDetected); Parainfluenza Virus 4 PCR Not Detected (NotDetected); Respiratory Syncytial VirusPCR Not Detected (NotDetected); Rhinovirus/Enterovirus PCR Not Detected (NotDetected)
[2022-05-06 22:58] LABS: Hematocrit (blood only) 25.1 % (34.1-44.9); Hemoglobin 8.5 g/dl (12.0-16.0); Mean Corpuscular Hemoglobin 24.1 pg (25.0-34.0); Mean Corpuscular Hgb Conc 33.9 g/dL (32.0-36.0); Mean Corpuscular Volume 71.3 fL (80.0-100.0); Mean Platelet Volume 10.4 fL (9.4-12.3); Nucleated RBC # (auto) 0.05 K/uL (0-0); Nucleated RBC % (auto) 0.2 %; Platelet Count 245 K/uL (130-400); RDW Coefficient of Variation 26.5 % (11.5-14.5); RDW Standard Deviation 63.8 fL (36.4-46.3); Red Blood Count 3.52 M/uL (3.93-5.22); White Blood Count 27.42 K/ul (4.8-10.8)
[2022-05-07] MEDS: metroNIDAZOLE 500 MG/100 ML BAG IV SCH ×2 (02:00→14:31)
[2022-05-07] MEDS: CEFEPIME 2,000 MG in SYRINGE 0 ML IV SCH ×2 (02:30→14:32)
[2022-05-07] MEDS: ACETAMINOPHEN 500 MG TAB PO SCH ×3 (04:54→20:15)
[2022-05-07 06:35] LABS: INR 1.6 (0.9-1.1)
[2022-05-07 06:40] LABS: Albumin Globulin Ratio 0.8 (0.9-2); Albumin Level 2.5 gm/dl (3.4-5.0); BUN Creatinine Ratio 44.8 (10-20); Bilirubin,Total 1.4 mg/dl (0.2-1.0); Calcium 7.4 mg/dl (8.5-10.1); Creatinine Clr Calc Pharmacy 66.3 ml/min; Est GFR (African American) 95.5 ml/min; Est GFR (Non-African American) 82.4 ml/min; Globulin 3.1 gm/dl (2.5-4.0); Magnesium 1.5 mg/dl (1.7-2.4); Phosphorus 2.3 mg/dl (2.5-4.9); Potassium 3.5 mmol/L (3.5-5.1); Total Protein 5.6 gm/dl (6.0-8.3)
[2022-05-07 06:54] LABS: Anisocytosis Present; Basophils # (auto) 0.17 K/uL (0-0.2); Basophils % (auto) 0.6 %; Echinocytes 1+; Eosinophils % (auto) 2.2 %; Hematocrit (blood only) 26.2 % (34.1-44.9); Hemoglobin 8.7 g/dl (12.0-16.0); Immature Granulocytes # (auto) 0.66 K/uL (0.00-0.02); Immature Granulocytes % (auto) 2.4 %; Lymphocytes # (auto) 3.32 K/uL (1.2-3.4); Lymphocytes % (auto) 12.1 %; Mean Corpuscular Hemoglobin 23.8 pg (25.0-34.0); Mean Corpuscular Hgb Conc 33.2 g/dL (32.0-36.0); Mean Corpuscular Volume 71.6 fL (80.0-100.0); Mean Platelet Volume 10.5 fL (9.4-12.3); Monocytes # (auto) 2.17 K/uL (0.24-0.82); Monocytes % (auto) 7.9 %; Neutrophils # (auto) 20.47 K/uL (1.4-6.5); Neutrophils % (auto) 74.8 %; Nucleated RBC # (auto) 0.04 K/uL (0-0); Nucleated RBC % (auto) 0.1 %; Platelet Count 249 K/uL (130-400); Polychromasia 1+; Red Blood Count 3.66 M/uL (3.93-5.22); Target Cells 1+; White Blood Count 27.39 K/ul (4.8-10.8)
[2022-05-07] MEDS ORDERED: POTASSIUM PHOS 3 MMOL/1 ML INFUSION IV STA (07:36)
[2022-05-07] MEDS: FUROSEMIDE 40 MG TAB PO SCH ×2 (08:28→17:37)
[2022-05-07] MEDS: LOSARTAN POTASSIUM 25 MG TAB PO SCH (08:28)
[2022-05-07] MEDS: METOPROLOL TARTRATE 25 MG TAB PO SCH ×2 (08:28→20:16)
[2022-05-07] MEDS: MAGNESIUM SULFATE / D5W 1 GM/100 ML BAG IV SCH ×2 (08:28→11:31)
--- NOTE | 2022-05-07 08:28 | Surgery Progress Note ---
Date of Service May 07, 2022 Assessment & Plan (1) Ileocolitis: Plan: 05-07-2022 Patient seen and examined. She reports that she is continuing to have abdominal pain. Patient has been accepted for transfer to [facility]. Plan is to transfer once a bed is available. Patient seen and examined with Dr. Bashir. 05-06-[address] angiogram performed which shows some pericolonic inflammation And a small mount of fluid in the area of the cecum and right colon which may be a contained perforation of diverticulum She also has evidence of cirrhosis, and portal hypertension and severe atherosclerosis Currently we are treating her also for GI bleeding-her subcu heparin, Plavix and aspirin have been stopped Patient was doing very well in treating her colitis with her diet and symptoms until she had the GI bleeding Her abdomen is soft with minimal pain I feel we should continue with medical management and that surgery would most likely require a major colon resection And with patient's comorbidity of cardiopulmonary issues as well as her cirrhosis and portal hypertension she is at extreme Risk of postoperative complications I have discussed this with the medical team and the patient's daughter, Madelyn- she seems to understand and agree with the plan I will also discussed this with my partner Dr. Bashir Admission and Anticipated Discharge Date Admission Date: April 27, 2022 Supervising Physician Co-Signing Physician Notes As per HUNTER Deleon Patient's abdomen is benign with exception tenderness in the right upper quadrant with deep palpation Awaiting transfer to [facility] Subjective Patient awake and alert in no distress. She does report continued abdominal pain. She continues to have dark bowel movements. Spoke with nursing and plan has now changed- Patient has been accepted for transfer to [facility]), but there are no beds at present. Physical Exam Physical Exam: Abdomen flat and soft without tenderness Has active bowel sounds Patient awake and alert in no distress Results & Data ([facility]) Vital Signs (Past 12 Hours) Vital Signs Temp Pulse Pulse Resp BP Pulse Ox O2 Del Method 05/07/22 06:28 36.6 C 95 H 20 167/66 H 94 Nasal Cannula 05/07/22 03:59 36.5 C 84 20 122/63 94 Nasal Cannula 05/06/22 22:07 77 05/06/22 22:59 36.9 C 78 20 127/61 96 Nasal Cannula O2 Flow Rate 05/07/22 06:28 2 05/07/22 03:59 2 05/06/22 22:07 05/06/22 22:59 2 PG Care Time/CCT Total # of Minutes Spent Total Time Spent with Patient: Total time spent is greater than 50% in coordination of care (as documented) at patient's floor/unit and/or counseling patient: Coding Level of Care Code 57749 Subseq Hosp Care Lvl 2 Diagnoses Ileocolitis K52.9
[2022-05-07] MEDS: CINACALCET HCL 30 MG TAB PO SCH (08:29)
[2022-05-07] MEDS: PANTOprazole 40 MG TAB PO SCH (08:29)
[2022-05-07] MEDS ORDERED: POTASSIUM PHOSPHATE 30 MMOL in SODIUM CHLORIDE 0.9% 500 ML IV ONE (08:30)
[2022-05-07] MEDS: INSULIN ASPART PER UNIT SC SCH ×4 (10:19→20:22)
[2022-05-07] MEDS: LANTUS PER UNIT CHARGE SQ SCH ×3 (10:20→20:21)
--- NOTE | 2022-05-07 13:10 | Gastroenterology Progress Note ---
Date of Service May 07, 2022 Assessment & Plan Admission and Anticipated Discharge Date Admission Date: April 27, 2022 Subjective Pt continues to complain of abdominal pain. Her PO intake today is minimal. On exam, she appears comfortable but has marked tenderness in RLQ with rebound. WBC is 27k. Her hgb is stable. A: Isolate right colonic ischemia, pericecal abscess - Bowel rest, abx. Defer management of IRCI and abscess to surgical service. Please call with questions. Results & Data ([facility]) Vital Signs (Past 12 Hours) Vital Signs Temp Pulse Pulse Resp BP Pulse Ox O2 Del Method 05/07/22 11:49 36.7 C 93 H 18 127/77 96 Nasal Cannula 05/07/22 08:00 Nasal Cannula 05/07/22 08:00 94 H 05/07/22 06:28 36.6 C 95 H 20 167/66 H 94 Nasal Cannula 05/07/22 03:59 36.5 C 84 20 122/63 94 Nasal Cannula O2 Flow Rate 05/07/22 11:49 3 05/07/22 08:00 1 05/07/22 08:00 05/07/22 06:28 2 05/07/22 03:59 2
--- NOTE | 2022-05-07 14:42 | Pharmacy Report ---
Pharmacy Glycemic Short Note 2 - Date of Service May 07, 2022 - Glycemic Short BSG Results (Last 24 hours): 05/06/22 05/06/22 05/07/22 16:06 19:56 06:07 Glucose 127 H POC Glucose 251 H 195 H 05/07/22 05/07/22 07:26 11:25 Glucose POC Glucose 145 H 244 H OUTPATIENT ANTIDIABETIC REGIMEN: * glipizide 10 mg PO BID * Metformin 1000 mg PO BID * Novolin 70/30 - 75 units qAM + 25 units qPM ASSESSMENT: 05/07/22: * Martine received 103 units of insulin yesterday (50 units basal + 53 units bolus) * Fasting BSG improved greatly. Continue current Lantus scale. * Patient continues to experience post prandial hyperglycemia. Will tighten correction factor. 05/06/22: * Patient is an 81 y/o F with a PMH of T2DM. Patient has been hospitalized since 04/27/22. * BSGs yesterday were [phone] * Patient received 91 units of insulin yesterday (40 units of basal and 51 units of bolus). * Fasting today is 240 mg/dL. Patient was NPO but changed to clear liquid diet. * Lunch BSG was 222 mg/dL. * Increase basal to 50 units today (~20%) by giving additional 10 units with lunch. Scale for tomorrow with set titration in for up to 60 units. ( additional 20%). * Tighten Novolog today since BSGs trend upwards throughout the day. PLAN FOR INPATIENT GLYCEMIC CONTROL: * Hold outpatient oral diabetes medications * Basal insulin * Lantus 25 units SQ BID (30 units if BSG > 180 mg/dL) * Bolus insulin * NovoLog per scale ACHS or Q6hrs while NPO * Goal Range: Low 110 mg/dL - High 140 mg/dL * Correction Factor: 12 mg/dL/unit * Nutritional / Prandial insulin per carb ratio of 1 unit per 3 grams CHO consumed
--- NOTE | 2022-05-07 14:53 | Hospitalist Progress Note ---
Date of Service May 07, 2022 Assessment & Plan (1) GI bleed: Plan: - noted 2 maroon colored stools this morning 05/05/2022 that were large - HR elevated slightly, responded to IVF - active type and screen - hgb to 6.6 05/05/2022 - 1 unit PRBC transfused - q6-8h CBC - clear liquid diet through the weekend - GI reconsulted - plan for EGD/colonoscopy 05/06/2022 - Cardiology for pre-op risk stratification - CTA abdomen showed developing abscess near cecum and extensive atherosclerotic disease in celiac axis. Read as follows: 1. Progression of cecal wall thickening consistent with colitis. Interval development of an adjacent rim-enhancing 5.2 x 1.7 cm fluid suggestive of a developing abscess. No extraluminal gas however microperforation cannot be excluded. Close clinical follow-up is recommended. The findings favor a nonspecific right-sided colitis however a large cecal diverticulum could appear similar. Discussed with Aaliyah Dias at time of dictation. 2. Extensive atherosclerotic disease of the abdominal aorta and branch vessels. 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 - Reached out to [facility] surgery who recommended transfer for multidisciplinary surgical evaluation and intervention with General surgery and Vascular surgery - patient accepted for transfer pending bed assignment - continue current management for now - continue to monitor (2) Ischemic colitis: Plan: - see above (3) Acute respiratory failure: Plan: - respiratory 2/2 fluid overload - She had an +8L fluid balance since admission noted on 04/30. She went into respiratory failure requiring high flow oxygen and received more aggressive IV diuresis and metolazone. - she is breathing well on 2LPM via nasal canula. - Cont diuresis - switched to PO by Cardiology. - Appreciate nephrology and cardiology assistance with this effort. - Cont Kendall in place. - Strict I/Os. - Ambulate with assist as tolerated - 2 step with 2L oxygen NC with activity - patient is for rehab on discharge (4) Leukocytosis: Plan: - elevated WBC to 25 in the setting of GIB vs sepsis - hemodynamically stable, afebrile - unclear etiology at this time - repeat blood cutlures drawn 05/05/2022 - empiric abx with cefepime, flagyl given ileocolitis - will trend for now (5) Ileocolitis: Plan: Uncertain cause, stool studies obtained this am are negative. She also has the appearance of an ileus on KUB which likely caused the issue of no BM for several days. - resuscitated on admission aggressively given her initial clinical picture and elevated lactate which has now resolved. - now s/p broad spectrum abx after 8 days of therapy - Vanc PO stopped with negative stool culture. - abdominal pain improved and diarrhea also improved - She is tolerating PO and will continue to advance diet to ADA solid food - had elevation of WBC which could represent stress response in setting of GI bleed as noted above vs acute infection - blood cultures repeated and empiric abx with cefepime and flagyl for now pending further work up - will monitor for now - CTA abdomen pelvis as above concerning for ischemic colitis (6) Anemia: Plan: - Baseline hemoglobin around 8.7. She was given a blood transfusion on the agustina of 04/29, Hb is improved and stable. - had GIB with hgb drop to 7s-8 - GI plan as above - s/p 1 unit PRBC 05/05/2022 for hgb 6.6 in setting of GIB - q6-8 hour CBC - hemodynamically stable at this time - active type and screen (7) Coronary atherosclerosis of [place] coronary vessel: Plan: - stable, no complaints of chest pain at this time - continue statin - holding Plavix, aspirin in setting of GIB - can likely d/c Plavix indefinitely as PCI was many years ago - will monitor for now (8) Type 2 diabetes mellitus without complications: Plan: - Elevated BG recently - cont basal/bolus insulin - adjust as needed - pharmacy consulted for glycemic management - clear liquid diet for now pending colonoscopy likely 05/06/2022 (9) Ovarian cyst: Plan: nonurgent gynecology consultation for further investigation as outpatien (10) Pulmonary nodule: Plan: repeat future CT scan in 6 months for stability. (11) Hyperparathyroidism: Plan: Takes cinacalcet. Follows with endocrinology at [facility] [place]. (12) HTN (hypertension): Plan: - normotensive - continue on metoprolol and losartan - continue to hold amlodipine as patient's BP has been stable Plan DVT proph: heparin SC - being held due to GI bleeding as above DNR/DNI Dispo- telemetry Benitez Gordillo MD [facility] Medicine Admission and Anticipated Discharge Date Admission Date: April 27, 2022 Subjective Patient with HTN, HLD, HFpEF, CAD, DM2, h/o CVA, hyperparathyroidism, GERD presenting with collitis and volume overload. Given IV abx with improvement in diarrhea. IV lasix with improvement in oxygenation and volume status. Had 2 episodes of GI bleeding 05/05/2022 with mild hgb drop, hemodynamically stable. GI reevaluated and plan for EGD, colonoscopy 05/06/2022. Denied chest pain, shortness of breath, n/v/d, dysuria. Had a couple dark stools overnight. Reports abdominal pain in RLQ. Poor appetite today. Review of Systems Review of Systems: All systems reviewed & are unremarkable except as noted in Subjective Physical Exam Physical Exam: CONSTITUTIONAL: obese, generally, NAD, appears clinically improved, slightly disheveled EYES: normal conjunctivae, no scleral icterus ENT: external ear and nose normal, MMM NECK: trachea midline RESPIRATORY: no wheezing heard, no increased respiratory effort, bibasilar crackles noted CARDIOVASCULAR: regular rate and rhythm, S1 and 2 heard without murmurs, gallops or rubs, no JVD, no peripheral edema CHEST: inspection of chest was normal GASTROINTESTINAL: soft, NT, tender to palpation in RLQ, no guarding. MUSCULOSKELETAL: generalized weakness, she is a 1 assist, head is normocephalic and atraumatic, SKIN: warm and dry NEUROLOGIC: CN 2-12 grossly intact, no sensory deficit, normal cognition, normal speech PSYCHIATRIC: alert cooperative and oriented to person, place and time. Results & Data Results & Data ([facility]) Vital Signs (Past 12 Hours) Vital Signs Temp Pulse Pulse Resp BP Pulse Ox O2 Del Method 05/07/22 11:49 36.7 C 93 H 18 127/77 96 Nasal Cannula 05/07/22 08:00 Nasal Cannula 05/07/22 08:00 94 H 05/07/22 06:28 36.6 C 95 H 20 167/66 H 94 Nasal Cannula 05/07/22 03:59 36.5 C 84 20 122/63 94 Nasal Cannula O2 Flow Rate 05/07/22 11:49 3 05/07/22 08:00 1 05/07/22 08:00 05/07/22 06:28 2 05/07/22 03:59 2 Diagnostic Findings Laboratory Results WBC 27.39 K/ul (4.8-10.8) H 05/07/22 06:07 RBC 3.66 M/uL (3.93-5.22) L 05/07/22 06:07 Hgb 8.7 g/dl (12.0-16.0) L 05/07/22 06:07 Hct 26.2 % (34.1-44.9) L 05/07/22 06:07 MCV 71.6 fL (80.0-100.0) L 05/07/22 06:07 MCH 23.8 pg (25.0-34.0) L 05/07/22 06:07 MCHC 33.2 g/dL (32.0-36.0) 05/07/22 06:07 RDW Std Deviation 65.0 fL (36.4-46.3) H 05/07/22 06:07 RDW Coeff of Vanita 27.0 % (11.5-14.5) H 05/07/22 06:07 Plt Count 249 K/uL (130-400) 05/07/22 06:07 MPV 10.5 fL (9.4-12.3) 05/07/22 06:07 Immature Gran % (Auto) 2.4 % 05/07/22 06:07 Neut % (Auto) 74.8 % 05/07/22 06:07 Lymph % (Auto) 12.1 % 05/07/22 06:07 [place] % (Auto) 7.9 % 05/07/22 06:07 Eos % (Auto) 2.2 % 05/07/22 06:07 Baso % (Auto) 0.6 % 05/07/22 06:07 Neut # (Auto) 20.47 K/uL (1.4-6.5) H 05/07/22 06:07 Lymph # (Auto) 3.32 K/uL (1.2-3.4) 05/07/22 06:07 [place] # (Auto) 2.17 K/uL (0.24-0.82) H 05/07/22 06:07 Eos # (Auto) 0.60 K/uL (0-0.50) H 05/07/22 06:07 Baso # (Auto) 0.17 K/uL (0-0.2) 05/07/22 06:07 Immature Gran # (Auto) 0.66 K/uL (0.00-0.02) H 05/07/22 06:07 Absolute Nucleated RBC 0.04 K/uL (0-0) H 05/07/22 06:07 Nucleated RBC % (auto) 0.1 % 05/07/22 06:07 Polychromasia 1+ 05/07/22 06:07 Hypochromasia Present 04/28/22 04:13 Poikilocytosis Present 05/03/22 06:05 Anisocytosis Present 05/07/22 06:07 Microcytosis Present 05/03/22 06:05 Spherocytes 1+ 05/06/22 06:43 Target Cells 1+ 05/07/22 06:07 Tear Drop Cells 1+ 04/28/22 04:13 Ovalocytes 1+ 04/27/22 20:23 Echinocytes 1+ 05/07/22 06:07 Acanthocytes (Spur) 2+ 05/03/22 06:05 Schistocytes 1+ 05/03/22 06:05 Peripher Smr Path Cons 04/27/22 16:33 PT 17.0 Seconds (9.0-12.0) H 05/07/22 06:07 INR 1.6 (0.9-1.1) H 05/07/22 06:07 APTT 57.0 Seconds (21.0-31.0) H* 04/28/22 14:12 PTT Ratio 2.1 04/28/22 14:12 ABG pH 7.40 (7.35-7.45) 04/30/22 21:59 ABG pCO2 32 mmHg (35-46) L 04/30/22 21:59 ABG pO2 73 mmHg (80-95) L 04/30/22 21:59 ABG HCO3 20 mmol/L (19-24) 04/30/22 21:59 ABG O2 Saturation 97.4 % (90-95) H 04/30/22 21:59 ABG Base Excess -4.0 mEq/L (-9-1.8) 04/30/22 21:59 Jose Test POS (Pos) 04/30/22 21:59 Oxygen Given FiO2 30% 04/30/22 21:59 Sodium 137 mmol/L (136-145) 05/07/22 06:07 Potassium 3.5 mmol/L (3.5-5.1) 05/07/22 06:07 Chloride 104 mmol/L (98-107) 05/07/22 06:07 Carbon Dioxide 26 mmol/L (21-32) 05/07/22 06:07 Anion Gap 7 (3-11) 05/07/22 06:07 BUN 30 mg/dl (6-23) H 05/07/22 06:07 Creatinine 0.67 mg/dl (0.6-1.2) 05/07/22 06:07 Est Cr Clr Drug Dosing 66.3 ml/min 05/07/22 06:07 Est GFR ( Amer) 95.5 ml/min 05/07/22 06:07 Est GFR (Non-Af Amer) 82.4 ml/min 05/07/22 06:07 BUN/Creatinine Ratio 44.8 (10-20) H 05/07/22 06:07 Glucose 127 mg/dl (70-99(Fasting)) H 05/07/22 06:07 POC Glucose 244 mg/dl (70-99) H 05/07/22 11:25 Lactate 1.5 mmol/L (0.4-2.0) 04/30/22 00:36 Calcium 7.4 mg/dl (8.5-10.1) L 05/07/22 06:07 Phosphorus 2.3 mg/dl (2.5-4.9) L 05/07/22 06:07 Magnesium 1.5 mg/dl (1.7-2.4) L 05/07/22 06:07 Iron < 10 mcg/dl (35-150) L 04/29/22 07:05 TIBC TNP 04/29/22 07:05 Unsaturated IBC 308 mcg/dl (155-355) 04/29/22 07:05 Transferrin % Sat TNP 04/29/22 07:05 Ferritin 59.7 ng/ml (8-388) 04/29/22 07:05 Total Bilirubin 1.4 mg/dl (0.2-1.0) H 05/07/22 06:07 AST 192 U/L (13-39) H 05/07/22 06:07 ALT 66 U/L (7-52) H 05/07/22 06:07 Alkaline Phosphatase 54 U/L (34-104) 05/07/22 06:07 Troponin I High Sens 540.7 pg/ml (0-14) H* 04/28/22 04:13 B-Natriuretic Peptide 416 pg/ml (0-100) H 05/01/22 05:41 Total Protein 5.6 gm/dl (6.0-8.3) L 05/07/22 06:07 Albumin 2.5 gm/dl (3.4-5.0) L 05/07/22 06:07 Globulin 3.1 gm/dl (2.5-4.0) 05/07/22 06:07 Albumin/Globulin Ratio 0.8 (0.9-2) L 05/07/22 06:07 Lipase 16 U/L (11-82) 04/27/22 12:51 Vitamin B12 371 pg/ml (180-914) 04/29/22 07:05 Folate > 22.30 ng/ml (>5.38) 04/29/22 07:05 Procalcitonin 2.72 ng/ml (0-0.5) H 04/30/22 06:12 Urine Color Yellow 04/27/22 14:28 Urine Appearance Clear (Clear) 04/27/22 14:28 Urine pH 5.0 (4.5-7.5) 04/27/22 14:28 Ur Specific [place] 1.015 (1.000-1.030) 04/27/22 14:28 Urine Protein Trace (Negative) H 04/27/22 14:28 Urine Glucose (UA) Negative (Negative) 04/27/22 14:28 Urine Ketones Trace (Negative) H 04/27/22 14:28 Urine Blood Negative (Negative) 04/27/22 14:28 Urine Nitrite Negative (Negative) 04/27/22 14:28 Urine Bilirubin Negative (Negative) 04/27/22 14:28 Urine Urobilinogen Negative (Negative) 04/27/22 14:28 Ur Leukocyte Esterase Trace (Negative) H 04/27/22 14:28 Urine WBC (Auto) 1-5 /hpf (0-5) 04/27/22 14:28 Urine RBC (Auto) 0-4 /hpf (0-4) 04/27/22 14:28 U Hyaline Cast (Auto) 1-5 /lpf (0-5) 04/27/22 14:28 U Epithel Cells (Auto) 5-10 /lpf (0-5) H 04/27/22 14:28 Urine Bacteria (Auto) Negative (Negative) 04/27/22 14:28 Stool Occult Bld Scrn Positive (Negative) A 05/05/22 06:15 Stl C. cayetanensis PCR Not Detected (NotDetected) 05/02/22 04:01 Stool Rotavirus A PCR Not Detected (NotDetected) 05/02/22 04:01 Stl Adenov F 40/41 PCR Not Detected (NotDetected) 05/02/22 04:01 Stool Astrovirus (PCR) Not Detected (NotDetected) 05/02/22 04:01 Stool Campylobacter PCR Not Detected (NotDetected) 05/02/22 04:01 Stl C. diff Tox B Gene Negative Cdiff Gene (Neg) 05/02/22 04:01 Stool Cryptosporidium PCR Not Detected (NotDetected) 05/02/22 04:01 Stl E.coli Shiga Tox PCR Not Detected (NotDetected) 05/02/22 04:01 Stl Enterotoxigenic E PCR Not Detected (NotDetected) 05/02/22 04:01 Stool EPEC (PCR) Not Detected (NotDetected) 05/02/22 04:01 Stool EAEC (PCR) Not Detected (NotDetected) 05/02/22 04:01 Stl E. histolytica PCR Not Detected (NotDetected) 05/02/22 04:01 Stool Giardia Lamblia PCR Not Detected (NotDetected) 05/02/22 04:01 Stool Salmonella PCR Not Detected (NotDetected) 05/02/22 04:01 Stool Sapovirus (PCR) Not Detected (NotDetected) 05/02/22 04:01 Stl P. shigelloides PCR Not Detected (NotDetected) 05/02/22 04:01 Stl Shigella/EIEC PCR Not Detected (NotDetected) 05/02/22 04:01 St Y.enterocolitica PCR Not Detected (NotDetected) 05/02/22 04:01 Stool Vibrio (PCR) Not Detected (NotDetected) 05/02/22 04:01 Stl Vibrio cholerae PCR Not Detected (NotDetected) 05/02/22 04:01 Stl Norovirus GI/GII PCR Not Detected (NotDetected) 05/02/22 04:01 Adenovirus (PCR) Not Detected (NotDetected) 05/06/22 Unknown B. pertussis DNA (PCR) Not Detected (NotDetected) 05/06/22 Unknown B.parapertussis DNA PCR Not Detected (NotDetected) 05/06/22 Unknown C. pneumoniae DNA (PCR) Not Detected (NotDetected) 05/06/22 Unknown Coronavirus OC43 (PCR) Not Detected (NotDetected) 05/06/22 Unknown Coronavirus HKU1 (PCR) Not Detected (NotDetected) 05/06/22 Unknown Coronavirus 229E (PCR) Not Detected (NotDetected) 05/06/22 Unknown SARS-CoV-2 (PCR) Not Detected (NotDetected) 05/06/22 Unknown Coronavirus NL63 (PCR) Not Detected (NotDetected) 05/06/22 Unknown Human Metapneumovir PCR Not Detected (NotDetected) 05/06/22 Unknown Influenza Type A (PCR) Not Detected (NotDetected) 05/06/22 Unknown Influenza Type B (PCR) Not Detected (NotDetected) 05/06/22 Unknown M. pneumoniae (PCR) Not Detected (NotDetected) 05/06/22 Unknown Parainfluenza 1 (PCR) Not Detected (NotDetected) 05/06/22 Unknown Parainfluenza 2 (PCR) Not Detected (NotDetected) 05/06/22 Unknown Parainfluenza 3 (PCR) Not Detected (NotDetected) 05/06/22 Unknown Parainfluenza 4 (PCR) Not Detected (NotDetected) 05/06/22 Unknown RSV (PCR) Not Detected (NotDetected) 05/06/22 Unknown Entero/Rhino (PCR) Not Detected (NotDetected) 05/06/22 Unknown SARS-CoV-2, RNA, NAAT NEGATIVE (NEGATIVE) 04/27/22 13:30 Blood Type A Positive 05/05/22 08:15 Antibody Screen NEGATIVE 05/05/22 08:15 Crossmatch See Detail 05/05/22 08:15 Impressions Abdomen/Pelvis CT 04/27/22 13:[address] WITH IV CONTRAST CT DOSE: 908.81 mGycm HISTORY: Right lower quadrant pain. TECHNIQUE: Multiaxial CT images of the abdomen and pelvis were performed following the use of intravenous contrast. A dose lowering technique was utilized adhering to the principles of ALARA. COMPARISON STUDY: None. FINDINGS: Interstitial thickening at the lung bases is noted. This may be chronic. There are mild dependent changes at the lung bases. Partially visualized 6 mm nodule within the left lower lobe there is an additional 8 mm irregular nodule within the left lower lobe on image 29. No pneumoperitoneum. No pneumatosis. No fractures within the visualized osseous structures. The heart is borderline enlarged. Small right upper quadrant abdominal wall defect/hernia measuring 2 cm. This favors a prior laparoscopic port site given the prior cholecystectomy. There are are scattered dropped gallstones within the right side of the abdomen and within the anterior abdominal wall measuring up to 2.3 cm. Nodular contour to the liver consistent with cirrhosis. Moderate bile duct dilatation likely due to the patient's postcholecystectomy state. The spleen, pancreas, and right adrenal gland are unremarkable. There is mild thickening of the left adrenal gland. There is a 4 mm stone within the right kidney. No left renal calculi. No ureteral calculi. No hydronephrosis. There are few scattered hypodensities within the kidneys. The majority these are technically too small to characterize but statistically represent cysts. No retroperitoneal lymphadenopathy. 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 No pelvic lymphadenopathy or pelvic free fluid. The bladder is unremarkable. Prior hysterectomy. There is a 7.2 cm right ovarian cyst. This could be pathologic in a postmenopausal female. Colonic diverticulosis. No evidence for acute diverticulitis. Mild circumferential thickening within the ascending colon with mild pericolonic fat stranding. There is also mild circumferential thickening of the distal terminal ileum near the ileocecal valve. This is consistent with a nonspecific ileocolitis and favors an infectious or inflammatory process. A portal colopathy could also a similar appearance but is considered less likely. No evidence for bowel obstruction. IMPRESSION: 1. Mild circumferential thickening within the ascending colon with mild pericolonic fat stranding. There is also mild circumferential thickening of the distal terminal ileum near the ileocecal valve. This is consistent with a nonspecific ileocolitis and favors an infectious or inflammatory process. A po rtal colopathy could also a similar appearance but is considered less likely. 2. Cirrhotic liver. 3. There are 2 irregular nodule within the left lower lobe with the largest measuring 8 mm. Follow-up chest CT in 6 months is recommended to ensure stability/resolution. 4. Right-sided nephrolithiasis. No ureteral stones. No hydronephrosis. 5. A 7.2 cm right ovarian cyst. This is considered to be pathologic in a postmenopausal female. Follow-up nonemergent gynecologic consultation recommended. 6. Additional findings as described above. ACT 112: Negative or not required by law. Electronically signed by: Pee Parker M.D. 04/27/2022 3:01 PM Venous Doppler Study 04/27/22 16:59 BILATERAL LOWER EXTREMITY VENOUS DOPPLER HISTORY: Lower extremity pain. COMPARISON STUDY: None. FINDINGS: There is normal compressibility, flow, and augmentation within the bilateral lower extremity deep venous systems. IMPRESSION: No DVT within the right or left lower extremity. ACT 112: Negative or not required by law. Electronically signed by: Pee Parker M.D. 04/27/2022 5:59 PM KUB X-Ray 05/02/22 07:00 KUB HISTORY: f/u colon dilatation COMPARISON: KUB 05/01/2022. FINDINGS: Prior cholecystectomy. Borderline distended gas-filled colon measuring up to 6 cm. This is similar to the prior study. Nondilated gas-filled loops of small bowel again noted. Scattered throughout gallstone seen within the right side of the abdomen. Trace bilateral pleural effusions. No renal calculi. No ureteral calculi. No pneumoperitoneum or pneumatosis. IMPRESSION: No significant change in the borderline colonic distention. ACT 112: Negative or not required by law. Electronically signed by: Pee Parker M.D. 05/02/2022 10:39 AM Chest X-Ray 05/05/22 12:42 XR chest 1V portable CLINICAL HISTORY: pulm congestion TECHNIQUE: Single frontal radiograph of the chest was obtained. Comparison: Comparison is made to chest radiograph 05/03/2022 FINDINGS: No lines and tubes are seen. Cardiomegaly is noted. The lungs are clear. No evidence of pleural effusion or pneumothorax. IMPRESSION: No acute chest disease. ACT 112: Negative or not required by law. Electronically signed by: Kingston Dunlap M.D. 05/05/2022 1:45 PM Abdomen/Pelvis CTA 05/06/22 09:52 CT ANGIOGRAPHY OF THE ABDOMEN AND PELVIS CLINICAL HISTORY: Right sided colitis; r/o vascular occlusion. COMPARISON STUDY: CT of the abdomen and pelvis April 27, 2022. KUB May 02, 2022. TECHNIQUE: Helical axial images of the abdomen and pelvis were obtained during arterial phase following intravenous injection 105 cc of Optiray 320 IV. Sagittal and coronal reconstructions were viewed as well as maximal intensity projections on an independent 3-D workstation. Automated exposure control was utilized for the study. A dose lowering technique was utilized adhering to the principles of ALARA. FINDINGS: Interlobular septal thickening suggests mild pulmonary edema. Small bilateral pleural effusions have developed since CT of April 27, 2022. Associated airspace opacities favor atelectasis. No pneumatosis, free air or portal venous gas is present. The liver is cirrhotic. No lesions are identified. Biliary ductal dilatation is likely related to previous cholecystectomy. Several dropped gallstones. The adrenal glands and pancreas are unremarkable. There is a 5 mm right renal calculus. A few suspected renal cysts are present. No hydronephrosis. Upper abdominal collaterals are present. There is hypoenhancement of the majority of the spleen. This is due to extensive atherosclerotic disease within the splenic artery with multifocal severe stenos es/short segment occlusion with distal reconstitution. There is severe stenosis versus short segment occlusion at the origin of the celiac axis. There is severe stenosis at the origin of the superior mesenteric artery. The remainder of the superior mesenteric artery and branches are patent. Moderate stenosis at the origin of the inferior mesenteric artery is noted. 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 The aorta is ectatic at this level, measuring 2.6 cm. 2 right renal arteries are noted. Severe stenosis of the right renal arteries is noted. There is moderate stenosis of the left renal artery. Moderate to severe stenosis at the origin of the left external iliac artery is present. There is no evidence for a bowel obstruction. Persistent wall thickening of the cecum is noted. There has been interval development of an adjacent rim-enhancing fluid collection within the paracolic gutter, measuring 5.2 x 1.7 cm. There is no extraluminal gas. Cecal wall thickening has progressed since prior CT. No additional sites of bowel wall thickening are present. There is trace ascites. Dropped gallstones are again noted. A 7 cm cystic right adnexal lesion is again noted. A Kendall balloon within the bladder is present. IMPRESSION: 1. Progression of cecal wall thickening consistent with colitis. Interval development of an adjacent rim-enhancing 5.2 x 1.7 cm fluid suggestive of a developing abscess. No extraluminal gas however microperforation cannot be excluded. Close clinical follow-up is recommended. The findings favor a nonspecific right-sided colitis however a large cecal diverticulum could appear similar. Discussed with Aaliyah Dias at time of dictation. 2. Extensive atherosclerotic disease of the abdominal aorta and branch vessels. 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 3. Hypodensity involving the majority of the spleen. The spleen appears to be mildly enhancing and therefore this suggests hypoperfusion. A large developing splenic infarct could appear similar. 4. Cirrhosis. Upper abdominal collaterals indicative of portal hypertension. 5. Interval development of small bilateral pleural effusions and mild interstitial pulmonary edema. ACT 112: Negative or not required by law. Electronically signed by: Karson Goddard M.D. 05/06/2022 12:31 PM Medications Administered Current Inpatient Medications Acetaminophen (Acetaminophen 500 Mg Tab) 1,000 mg PO Q8H [facility] Stop: 06/01/22 11:59 Last Admin: 05/07/22 12:16 Dose: 1,000 mg Amlodipine Besylate (Amlodipine Besylate 5 Mg Tab) 5 mg PO QAM DESIREE Stop: 05/28/22 08:59 Last Admin: 04/28/22 08:09 Dose: 5 mg Aspirin (Aspirin 81 Mg Ectab) 81 mg PO DAILY DESIREE Stop: 05/28/22 08:59 Last Admin: 05/04/22 08:02 Dose: 81 mg Cinacalcet (Cinacalcet Hcl 30 Mg Tab) 30 mg PO DAILY DESIREE Stop: 05/28/22 08:59 Last Admin: 05/07/22 08:29 Dose: 30 mg Clopidogrel Bisulfate (Clopidogrel Bisulfate 75 Mg Tab) 75 mg PO QAM DESIREE Stop: 05/28/22 08:59 Last Admin: 05/04/22 08:02 Dose: 75 mg Dextrose (Dextrose 50% 50 Ml Syringe) 25 - 50 ml IV UD PRN; Protocol PRN Reason: Hypoglycemia Protocol Stop: 05/27/22 19:03 Furosemide (Furosemide 40 Mg Tab) 40 mg PO [id number] [facility] Stop: 06/03/22 16:59 Last Admin: 05/07/22 08:28 Dose: 40 mg Glucagon (Glucagon For Inj 1 Mg Vial) 1 mg SQ UD PRN; Protocol PRN Reason: Hypoglycemia Protocol Stop: 05/27/22 19:03 Glucose (Glucose 40% Gel 15 Gm Tube) 15 - 30 gm PO UD PRN; Protocol PRN Reason: Hypoglycemia Protocol Stop: 05/27/22 19:03 Glucose (Glucose 10 Tab/Tube) 4 - 8 tab PO UD PRN; Protocol PRN Reason: Hypoglycemia Treatment Stop: 05/27/22 19:03 Heparin Sodium (Porcine) (Heparin Sod 5,000 Unit/0.5 Ml Vial) 5,000 units SQ Q12 [facility] Stop: 05/28/22 20:59 Last Admin: 05/04/22 21:06 Dose: 5,000 units Cefepime HCl 2,000 mg/ Syringe 20 mls @ 5 mls/min IV Q12H [facility]; Protocol Stop: 05/15/22 13:59 Last Admin: 05/07/22 14:32 Dose: 5 mls/min Metronidazole (Flagyl) 500 mg in 100 mls @ 100 mls/hr IV Q8H [facility] Stop: 05/17/22 13:59 Last Admin: 05/07/22 14:31 Dose: 100 mls/hr Insulin Aspart (Insulin Aspart Per Unit) 0 units SC ACHS [facility] Stop: 05/27/22 20:59 Last Admin: 05/07/22 12:15 Dose: 19 units Insulin Glargine (Lantus Per Unit Charge) 0 - 20 units SQ BID [facility]; Protocol Stop: 05/27/22 20:59 Last Admin: 05/07/22 11:10 Dose: 25 units Losartan Potassium (Losartan Potassium 25 Mg Tab) 25 mg PO DAILY [facility] Stop: 05/28/22 08:59 Last Admin: 05/07/22 08:28 Dose: 25 mg Magnesium Oxide (Magnesium Oxide 400 Mg Tab) 400 mg PO DAILY [facility] Stop: 05/28/22 08:59 Last Admin: 04/30/22 07:48 Dose: 400 mg Metoprolol Tartrate (Metoprolol Tartrate 25 Mg Tab) 12.5 mg PO BID [facility] Stop: 05/27/22 20:59 Last Admin: 05/07/22 08:28 Dose: 12.5 mg Miscellaneous (Carbohydrates For Hypoglycemia ) 15 - 30 gm PO UD PRN PRN Reason: Hypoglycemia Protocol Stop: 05/27/22 19:03 Miscellaneous Information (Pharmacy Glycemic Mgmt Consult) 1 each N/A UD PRN; Protocol PRN Reason: Consult Stop: 06/05/22 11:43 Oxycodone HCl (Oxycodone Hcl Ir 5 Mg Tab (Immediate Release)) 5 mg PO Q4H PRN PRN Reason: Pain Stop: 05/14/22 23:48 Last Admin: 05/01/22 05:11 Dose: 5 mg Pantoprazole Sodium (Pantoprazole 40 Mg Tab) 40 mg PO DAILY [facility] Stop: 05/28/22 08:59 Last Admin: 05/07/22 08:29 Dose: 40 mg Simvastatin (Simvastatin 10 Mg Tab) 10 mg PO DAILY [facility] Stop: 05/28/22 08:59 Last Admin: 04/30/22 07:48 Dose: 10 mg
--- NOTE | 2022-05-07 15:17 | Cardiology Progress Note ---
Date of Service May 07, 2022 Assessment & Plan (1) Sepsis: (2) Ileocolitis: (3) Coronary atherosclerosis of [place] coronary vessel: (4) Mitral stenosis: (5) Chronic heart failure with preserved ejection fraction (HFpEF): (6) GI bleed: Plan The patient was on aspirin and Plavix due to previous CVA. She did have coronary stents placed in the so from a cardiac standpoint Plavix would not be needed. ASA and clopidogrel on hold due to melena. Hemoglobin today 8.7. Patient tentatively awaiting transfer to [facility] for multidisciplinary evaluation by general surgery, vascular surgery. Continue furosemide 40 mg IV twice daily. Patient received magnesium potassium replacement earlier today. Recommend SCDs for DVT prophylaxis. Admission and Anticipated Discharge Date Admission Date: April 27, 2022 Subjective Patient with HTN, HLD, HFpEF, CAD, DM2, h/o CVA, hyperparathyroidism, GERD presenting with collitis and volume overload. Pt without acute cardiac complaint. She notes being frustrated and wishes she could go home, but knows she needs to remain in the hospital for her illness. Her , son, and daughter in law are at the bedside. She remains on supplemental oxygen. Physical Exam Constitutional: + ill appearing and + obese Respiratory: Auscultation: + diminished lung sounds (mildl reduced BS at the bases ) Cardiovascular: RRR, no murmur, no edema Gastrointestinal (Abdomen): mild diffuse tenderness on palpation Neurologic: PERRL, EOMI, accommodation nl, no face palsy, no dysarthria Results & Data ([facility]) Vital Signs (Past 12 Hours) Vital Signs Temp Pulse Pulse Resp BP Pulse Ox O2 Del Method 05/07/22 11:49 36.7 C 93 H 18 127/77 96 Nasal Cannula 05/07/22 08:00 Nasal Cannula 05/07/22 08:00 94 H 05/07/22 06:28 36.6 C 95 H 20 167/66 H 94 Nasal Cannula 05/07/22 03:59 36.5 C 84 20 122/63 94 Nasal Cannula O2 Flow Rate 05/07/22 11:49 3 05/07/22 08:00 1 05/07/22 08:00 05/07/22 06:28 2 05/07/22 03:59 2 (1) Sepsis Sepsis type: sepsis due to unspecified organism Sepsis acute organ dysfunction status: without acute organ dysfunction Qualified Code(s): A41.9 - Sepsis, unspecified organism
[2022-05-07 18:36] LABS: Hematocrit (blood only) 24.8 % (34.1-44.9); Hemoglobin 8.2 g/dl (12.0-16.0); Mean Corpuscular Hemoglobin 23.8 pg (25.0-34.0); Mean Corpuscular Hgb Conc 33.1 g/dL (32.0-36.0); Mean Corpuscular Volume 72.1 fL (80.0-100.0); Mean Platelet Volume 11.2 fL (9.4-12.3); Nucleated RBC # (auto) 0.04 K/uL (0-0); Nucleated RBC % (auto) 0.2 %; Platelet Count 260 K/uL (130-400); RDW Coefficient of Variation 27.7 % (11.5-14.5); RDW Standard Deviation 66.7 fL (36.4-46.3); Red Blood Count 3.44 M/uL (3.93-5.22)
[2022-05-08] MEDS: metroNIDAZOLE 500 MG/100 ML BAG IV SCH ×2 (00:46→05:29)
[2022-05-08] MEDS: CEFEPIME 2,000 MG in SYRINGE 0 ML IV SCH (02:00)
[2022-05-08] MEDS: ACETAMINOPHEN 500 MG TAB PO SCH (04:10)
[2022-05-08 06:51] LABS: INR 1.4 (0.9-1.1); Prothrombin Time 15.1 Seconds (9.0-12.0)
[2022-05-08 07:04] LABS: Albumin Globulin Ratio 0.8 (0.9-2); Albumin Level 2.3 gm/dl (3.4-5.0); BUN Creatinine Ratio 38.7 (10-20); Calcium 7.4 mg/dl (8.5-10.1); Creatinine Clr Calc Pharmacy 72.2 ml/min; Est GFR (Non-African American) 84.6 ml/min; Globulin 2.9 gm/dl (2.5-4.0); Magnesium 1.6 mg/dl (1.7-2.4); Phosphorus 3.4 mg/dl (2.5-4.9); Potassium 3.4 mmol/L (3.5-5.1); Total Protein 5.2 gm/dl (6.0-8.3)
[2022-05-08] MEDS: CINACALCET HCL 30 MG TAB PO SCH (07:26)
[2022-05-08] MEDS: PANTOprazole 40 MG TAB PO SCH (07:26)
[2022-05-08] MEDS: FUROSEMIDE 40 MG TAB PO SCH (07:26)
[2022-05-08] MEDS: LOSARTAN POTASSIUM 25 MG TAB PO SCH (07:26)
[2022-05-08 07:27] LABS: Hematocrit (blood only) 25.1 % (34.1-44.9); Hemoglobin 8.3 g/dl (12.0-16.0); Mean Corpuscular Hemoglobin 24.1 pg (25.0-34.0); Mean Corpuscular Hgb Conc 33.1 g/dL (32.0-36.0); Mean Platelet Volume 10.5 fL (9.4-12.3); Nucleated RBC # (auto) 0.03 K/uL (0-0); Nucleated RBC % (auto) 0.2 %; Platelet Count 231 K/uL (130-400); RDW Coefficient of Variation 28.5 % (11.5-14.5); RDW Standard Deviation 69.5 fL (36.4-46.3); Red Blood Count 3.44 M/uL (3.93-5.22); White Blood Count 18.87 K/ul (4.8-10.8)
[2022-05-08] MEDS: METOPROLOL TARTRATE 25 MG TAB PO SCH (07:27)
[2022-05-08] MEDS ORDERED: LANTUS PER UNIT CHARGE SC ONE (07:30)
[2022-05-08] MEDS ORDERED: POTASSIUM CHLORIDE CRTAB 20 MEQ TABCR PO STA (07:46)
[2022-05-08] MEDS ORDERED: MAGNESIUM SULFATE / D5W 1 GM/100 ML BAG IV SCH (08:00)
--- NOTE | 2022-05-08 08:04 | Surgery Progress Note ---
Date of Service May 08, 2022 Assessment & Plan (1) Ileocolitis: Plan: Tenderness has improved significantly H&H stable, WBC improved to 18 Patient has been accepted for transfer to [facility]. Plan is to transfer once a bed is available. Patient seen and examined with Dr. Bashir. Admission and Anticipated Discharge Date Admission Date: April 27, 2022 Supervising Physician Co-Signing Physician Notes As per Spike ocampo Patient is abdominal exam especially the tenderness in right upper quadrant that was palpated with with pressure yesterday is not reproducible today Subjective no complaints or abdominal pain Physical Exam Gastrointestinal (Abdomen): Inspection/Auscultation: abdomen not distended Percussion/Palpation: abdomen soft; abdomen nontender and no guarding Results & Data ([facility]) Vital Signs (Past 12 Hours) Vital Signs Temp Pulse Pulse Resp BP Pulse Ox O2 Del Method 05/08/22 07:57 36.7 C 89 20 143/57 H 96 Nasal Cannula 05/08/22 03:21 36.4 C L 82 16 123/63 100 Nasal Cannula 05/08/22 00:00 77 05/08/22 00:00 36.7 C 74 18 111/58 L 99 Nasal Cannula O2 Flow Rate 05/08/22 07:57 2 05/08/22 03:21 3 05/08/22 00:00 05/08/22 00:00 5 PG Care Time/CCT Total # of Minutes Spent Total Time Spent with Patient: Total time spent is greater than 50% in coordination of care (as documented) at patient's floor/unit and/or counseling patient: Coding Level of Care Code 46993 Subs Hosp Care Lvl 1 Diagnoses Ileocolitis K52.9
--- NOTE | 2022-05-08 08:04 | Discharge Summary ---
Date of Service May 08, 2022 Admission HPI Per Admitting Provider Patient is 81 y/o F with PMH HTN, dyslipidemia, chronic diastolic heart failure, CAD, DM II, CVA, hyperparathyroidism, GERD presented to ER wt c/o abdominal pain started yesterday. History obtained from patient and chart review. Patient reports yesterday sudden onset of diarrhea, nausea and vomiting. Reports approximately 4-5 episodes of diarrhea, last was this morning prior to ER arrival. Approximately 10 episodes of vomiting. Then started with RLQ sharp and dull abdominal pain. Patient states ate sub yesterday and significant other had other half of sub. No other ill contacts. Denies chills, known fever, diaphoresis, SOB, CP. Here in ER patient states nausea is much improved and is requesting food. Reports chronic cough in morning of yellow sputum. Denies any increased cough. States chronic BLE with right leg chronically more swollen than left. Recent hospitalization 01/22/2022-01/29/2022 for acute hypoxic respiratory failure secondary to acute on chronic CHF, pneumonia, patient also had acute CVA . Denies hematemesis, melena, hematochezia, BROWN, dizziness, syncope, vision changes, neck pain, CP, SOB, orthopnea, palpitations, sore throat, choking, otalgia, rhinorrhea, paresthesias, extremity weakness, rashes, urinary symptoms. Admission Exam Per Admitting Provider General: no distress, overweight Head: normocephalic, atraumatic Eyes: conjunctiva non-injected, anicteric ENT: normal inspection external ears, nose, mucous membranes dry Neck: supple, trachea midline Lungs: clear, no respiratory distress, no wheezing/rhonchi/rales CV: RRR, no murmur, +1pretibial edema Abd: protuberant, normal BS, soft, +tenderness to palpation RLQ, LLQ Ext: no cyanosis, no erythema, no calf tenderness; RLE larger than LLE with incr eased warmth. Non-tender. Neuro: A&O x 3, no focal deficits noted, normal affect Skin: warm, dry Principal Diagnosis ischemic colitis Discharge Exam CONSTITUTIONAL: obese, generally, NAD, appears clinically improved, slightly disheveled EYES: normal conjunctivae, no scleral icterus ENT: external ear and nose normal, MMM NECK: trachea midline RESPIRATORY: no wheezing heard, no increased respiratory effort, bibasilar crackles noted CARDIOVASCULAR: regular rate and rhythm, S1 and 2 heard without murmurs, gallops or rubs, no JVD, no peripheral edema CHEST: inspection of chest was normal GASTROINTESTINAL: soft, NT, tender to palpation in RLQ, no guarding. MUSCULOSKELETAL: generalized weakness, she is a 1 assist, head is normocephalic and atraumatic, SKIN: warm and dry NEUROLOGIC: CN 2-12 grossly intact, no sensory deficit, normal cognition, normal speech PSYCHIATRIC: alert cooperative and oriented to person, place and time. Discharge Data Allergies Allergy/AdvReac Type Severity Reaction Status Date / Time No Known Allergies Allergy Verified 04/27/22 15:53 Consultations 04/27/22 15:18 Consult General Surgery Stat ED Decision to Admit Stat 04/27/22 19:04 Consult Cardiology Routine 04/29/22 09:07 Consult Gastroenterology Routine 05/01/22 07:50 Consult Cardiology Routine 05/01/22 10:59 Consult Nephrology Routine 05/05/22 07:17 Consult Gastroenterology Routine Procedures Performed Operation Date: 05/06/22 15:45 <No data on this case meets the specified criteria> Ordered Studies 04/27/22 13:10 CT abd pelvis IV con only Stat 04/27/22 16:59 US venous doppler LE BI Urgent 05/06/22 09:52 CTA abdomen pelvis w con [CT angio abdomen pelvis w con] Routine Hospital Course (1) GI bleed: - noted 2 maroon colored stools this morning 05/05/2022 that were large - HR elevated slightly, responded to IVF - active type and screen - hgb to 6.6 05/05/2022 - 1 unit PRBC transfused - q6-8h CBC - clear liquid diet through the weekend - GI reconsulted - plan for EGD/colonoscopy 05/06/2022 - Cardiology for pre-op risk stratification - CTA abdomen showed developing abscess near cecum and extensive atherosclerotic disease in celiac axis. Read as follows: 1. Progression of cecal wall thickening consistent with colitis. Interval development of an adjacent rim-enhancing 5.2 x 1.7 cm fluid suggestive of a de veloping abscess. No extraluminal gas however microperforation cannot be excluded. Close clinical follow-up is recommended. The findings favor a nonspecific right-sided colitis however a large cecal diverticulum could appear similar. Discussed with Aaliyah Dias at time of dictation. 2. Extensive atherosclerotic disease of the abdominal aorta and branch vessels. 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 - Reached out to [facility] Vascular surgery who recommended transfer for multidisciplinary surgical evaluation and intervention with General surgery and Vascular surgery - patient accepted for transfer - continue to monitor (2) Ischemic colitis: - see above (3) Acute respiratory failure: - respiratory 2/2 fluid overload - She had an +8L fluid balance since admission noted on 04/30. She went into respiratory failure requiring high flow oxygen and received more aggressive IV diuresis and metolazone. - she is breathing well on 2LPM via nasal canula. - Cont diuresis - switched to PO by Cardiology. - Appreciate nephrology and cardiology assistance with this effort. - Cont Kendall in place. - Strict I/Os. - Ambulate with assist as tolerated - 2 step with 2L oxygen NC with activity - patient is for rehab on discharge (4) Leukocytosis: - elevated WBC to 25 in the setting of GIB vs sepsis - hemodynamically stable, afebrile - unclear etiology at this time - repeat blood cutlures drawn 05/05/2022 - empiric abx with cefepime, flagyl given ileocolitis - will trend for now (5) Ileocolitis: Uncertain cause, stool studies obtained this am are negative. She also has the appearance of an ileus on KUB which likely caused the issue of no BM for several days. - resuscitated on admission aggressively given her initial clinical picture and elevated lactate which has now resolved. - now s/p broad spectrum abx after 8 days of therapy - Vanc PO stopped with negative stool culture. - abdominal pain improved and diarrhea also improved - She is tolerating PO and will continue to advance diet to ADA solid food - had elevation of WBC which could represent stress response in setting of GI bleed as noted above vs acute infection - blood cultures repeated and empiric abx with cefepime and flagyl for now pending further work up - will monitor for now - CTA abdomen pelvis as above concerning for ischemic colitis (6) Anemia: - Baseline hemoglobin around 8.7. She was given a blood transfusion on the agustina of 04/29, Hb is improved and stable. - had GIB with hgb drop to 7s-8 - GI plan as above - s/p 1 unit PRBC 05/05/2022 for hgb 6.6 in setting of GIB - q6-8 hour CBC - hemodynamically stable at this time - active type and screen (7) Coronary atherosclerosis of [place] coronary vessel: - stable, no complaints of chest pain at this time - continue statin - holding Plavix, aspirin in setting of GIB - can likely d/c Plavix indefinitely as PCI was many years ago - will monitor for now (8) Type 2 diabetes mellitus without complications: - Elevated BG recently - cont basal/bolus insulin - adjust as needed - pharmacy consulted for glycemic management - clear liquid diet for now pending colonoscopy likely 05/06/2022 (9) Ovarian cyst: nonurgent gynecology consultation for further investigation as outpatien (10) Pulmonary nodule: repeat future CT scan in 6 months for stability. (11) Hyperparathyroidism: Takes cinacalcet. Follows with endocrinology at [facility]. (12) HTN (hypertension): - normotensive - continue on metoprolol and losartan - continue to hold amlodipine as patient's BP has been stable Plan DVT proph: heparin SC - being held due to GI bleeding as above DNR/DNI Dispo- telemetry Benitez Gordillo MD [facility] Medicine Total Time Total Time Spent Total Time Spent (In Minutes): 23 Total Time Includes: Examination of the Patient, Discharge Planning and Medication Reconciliation Discharge Plan Discharge Items Patient Disposition: Transfer Acute Care Hospital Reason For Visit: ABD PAIN Discharge Diagnosis: ischemic colitis Health Concerns: Current Inpatient Medications Acetaminophen (Acetaminophen 500 Mg Tab) 1,000 mg PO Q8H [facility] Amlodipine Besylate (Amlodipine Besylate 5 Mg Tab) 5 mg PO QAM [facility] Aspirin (Aspirin 81 Mg Ectab) 81 mg PO DAILY [facility] ON HOLD Cinacalcet (Cinacalcet Hcl 30 Mg Tab) 30 mg PO DAILY [facility] Clopidogrel Bisulfate (Clopidogrel Bisulfate 75 Mg Tab) 75 mg PO QAM [facility] ON HOLD Dextrose (Dextrose 50% 50 Ml Syringe) 25 - 50 ml IV UD PRN; Protocol PRN Reason: Hypoglycemia Protocol Furosemide (Furosemide 40 Mg Tab) 40 mg PO BID17 [facility] Glucagon (Glucagon For Inj 1 Mg Vial) 1 mg SQ UD PRN; Protocol PRN Reason: Hypoglycemia Protocol Glucose (Glucose 40% Gel 15 Gm Tube) 15 - 30 gm PO UD PRN; Protocol PRN Reason: Hypoglycemia Protocol Glucose (Glucose 10 Tab/Tube) 4 - 8 tab PO UD PRN; Protocol PRN Reason: Hypoglycemia Treatment Heparin Sodium (Porcine) (Heparin Sod 5,000 Unit/0.5 Ml Vial) 5,000 units SQ Q12 [facility] ON HOLD Cefepime HCl 2,000 mg/ Syringe 20 mls @ 5 mls/min IV Q12H [facility]; Protocol Last Admin: 05/06/22 14:00 Dose: 5 mls/min Metronidazole (Flagyl) 500 mg in 100 mls @ 100 mls/hr IV Q8H [facility] Last Infusion: 05/06/22 13:31 Dose: Infused Insulin Aspart (Insulin Aspart Per Unit) 0 units SC ACHS [facility] Stop: 05/27/22 20:59 Last Admin: 05/06/22 17:01 Dose: 21 units Insulin Glargine (Lantus Per Unit Charge) 0 - 20 units SQ BID [facility]; Protocol Stop: 05/27/22 20:59 Last Admin: 05/06/22 08:49 Dose: 20 units Losartan Potassium (Losartan Potassium 25 Mg Tab) 25 mg PO DAILY [facility] Magnesium Oxide (Magnesium Oxide 400 Mg Tab) 400 mg PO DAILY [facility] Metoprolol Tartrate (Metoprolol Tartrate 25 Mg Tab) 12.5 mg PO BID [facility] Miscellaneous (Carbohydrates For Hypoglycemia ) 15 - 30 gm PO UD PRN PRN Reason: Hypoglycemia Protocol Miscellaneous Information (Pharmacy Glycemic Mgmt Consult) 1 each N/A UD PRN; Protocol PRN Reason: Consult Oxycodone HCl (Oxycodone Hcl Ir 5 Mg Tab (Immediate Release)) 5 mg PO Q4H PRN PRN Reason: Pain Pantoprazole Sodium (Pantoprazole 40 Mg Tab) 40 mg PO DAILY [facility] Simvastatin (Simvastatin 10 Mg Tab) 10 mg PO DAILY [facility] Activity: As commented below Activity Comment: per accepting hospital Non-emergency contact: Primary Care Provider, Surgeon and Senior Relationship Manager Call non-emergency contact if: you have any medication questions and your symptoms worsen Follow-up/Referrals: Alexy Al MD [Primary Care Provider] - Diet: Carb Consistent or DM2 Addtl Attending Provider Instructions: You were admitted for abdominal pain, found to have sepsis due to GI infection, started on IV fluids and antibiotics with some improvement. You got volume overloaded and required medication to help you urinate out the fluid with good response and oxygen requirements decreased. You continued to have infection in the GI track and then had bleeding from your GI track. Your Plavix and aspirin were stopped and bleeding slowed down. You had a CTA of your abdomen (CAT scan with contrast of the abdomen) that showed narrowing of multiple blood vessels in your abdomen and worsening infection in the colon. GI recommended transfer for vascular surgery evaluation and possible intervention. I spoke with vascular surgery at [facility] in [place], [place] and they feel transfer to [facility] is warranted and you were accepted for transfer. Addtl Supervisor Curing Room Provider Instructions: There are 2 irregular nodule within the left lower lobe with the largest measuring 8 mm. Follow-up chest CT in 6 months is recommended to ensure stability/resolution. A 7.2 cm right ovarian cyst. This is considered to be pathologic in a postmenopausal female. Follow-up nonemergent gynecologic consultation recommended. Pending Studies at Discharge: No Stand-Alone Forms: My [facility] Skilled Items Patient informed of condition?: Yes DNR: Yes Discharge Level of Care: Other Communicable Disease: No Discharge Prognosis: Stable Lines: Peripheral IV Urinary Catheter: Yes Medications and DC Order Prescriptions: Continued vitamin B complex Tablet Extended Release 1 tab PO DAILY alendronate 70 mg tablet 70 mg PO WK Novolin 70/30 U-100 Insulin 100 unit/mL (70-30) suspension See Rx Instructions .ROUTE .COMPLEX Rx Instructions: PER PT "TOOK 80 UNITS THIS AM, 04/27/22 BECAUSE DIDN'T TAKE ANY LAST NIGHT, 04/26/22". NORMALLY TAKES 75 UNITS W/BREAKFAST, THEN 25 UNITS W/SUPPER. metformin 1,000 mg tablet 1,000 mg PO BID cinacalcet 30 mg tablet 30 mg PO DAILY biotin 1 mg Tablet 1 mg PO TID Rx Instructions: Take 1 tab in am, 1 tab at noon, 1 tab before hs simvastatin 10 mg tablet 10 mg PO DAILY losartan 25 mg tablet 25 mg PO DAILY [id number] Tablet 1 tab PO DAILY glucosamine-chondroitin [Osteo Bi-Flex] 250-200 mg Tablet 1 tab PO DAILY Rx Instructions: unknown strength potassium gluconate 595 mg (99 mg) Tablet 595 mg PO DAILY clopidogrel 75 mg Tablet 75 mg PO QAM Qty: 60 0RF metoprolol tartrate 25 mg Tablet 12.5 mg PO BID Qty: 30 0RF magnesium oxide 400 mg (241.3 mg magnesium) Tablet 400 mg PO DAILY Qty: 60 0RF furosemide [Lasix] 40 mg tablet 40 mg PO DAILY Qty: 30 0RF pantoprazole 40 mg Tablet,Delayed Release (Dr/Ec) 40 mg PO DAILY Qty: 30 0RF glipizide 10 mg Tablet 10 mg PO BID amlodipine 5 mg tablet 5 mg PO QAM aspirin 81 mg Tablet,Delayed Release (Dr/Ec) 81 mg PO DAILY benzonatate 100 mg Capsule 100 mg PO TID PRN (Reason: Cough) Discharge Orders: Discharge Order (Routine); Ordered 05/08/22 Ordered By: Benitez Gordillo Admission Data Admit Date/Time: 04/27/22 15:56 Attending Provider: Benitez Gordlilo Admit Provider: Macey Lyons Primary Care Provider: Alexy Al Other Providers: Cedrick Carreno ; Macey Lyons ; Morro Dubon ; Jeromy Murrell ; Raheem Reese ; Omayra Lewis Other Interventions: Discharge Summary Assessment (RN) Last Done: 05/08/22 08:01
== END 2022-05-08 08:43 | disposition short-term general hospital (02) | DRG 871 ==
LOC: ED 12:17 → 2N 15:56 → SUATTDRO 15:56 → 2N 18:06 → 2S 04-30 10:50

== ENCOUNTER 2023-04-24 11:25 | Inpatient (IN) ==
[2023-04-24] MEDS ORDERED: PANTOprazole 80 MG in DEXTROSE 5% 100 ML IV STA (11:33)
--- NOTE | 2023-04-24 11:35 | Emergency Department Note ---
Impression & Plan GI bleed ED Provider Note Name: FARHAN BEAR Age: 82 Sex: Female Arrives Via: Ambulance Informant: Patient and EMS ED Provider: Roger Aldridge MD Chief Complaint: Rectal bleeding Impression: As per impressions above Medical Decision Makin-year-old female with a history of extensive medical issues including previous GI bleed secondary to colitis arrives for evaluation of worsening rectal bleeding this morning. Hemodynamically stable though patient is quite upset. She has a soft nontender abdomen. Laboratory workup is benign with baseline anemia noted. Given her history and the amount of bleeding clearly hospitalization is indicated but she does not require transfusion at this time. Hospitalist consulted for further management patient is on board with this plan. Triage/Nursing Notes reviewed by Me Differential:Diverticulosis, AVM, coagulopathy, colitis, inflammatory bowel disease, malignancy, Alejandra-Arroyo tear, esophagitis, peptic ulcer disease, variceal bleed, gastritis, epistaxis, fissure, hemorrhoids, as well as other pathologies. Vital Signs: reviewed and remarkable for no significant abnormalities Interventions: Protonix 80 mg IV Labs:ED labs Reviewed by me and remarkable for baseline anemia Cardiac/Tele Monitoring: Cardiac Monitoring: An Order was placed for continuous cardiac monitoring. The monitor shows a rate of 80 with a normal sinus rhythm. Consults:Hasmukh Hospitalist Plan: Disposition:Hospitalization. Condition: Good History of Present Illness: 83-year-old female arrives for evaluation of GI bleed. Patient with a history of previous hospitalizations for gastric bleeding which she believes was about a year ago most recently. Patient notes she awoke this morning and had a large bloody bowel movement. Denies any specific abdominal pain, fevers, nausea, lightheadedness, weakness or other concerning signs or symptoms. Previously diagnosed with ischemic colitis per chart. Patient does take Plavix daily. No other blood thinners. States otherwise had been feeling well the last few days. No medications prior to arrival. Past Medical History:See Below Home Medications:See Below Allergies:nkda Vitals:Blood Pressure: 150/87, Pulse 87, RR 18, T 37.5C, O2 98% on RA Physical Exam: GENERAL: Patient is anxious appearing and in minimal distress. RESPIRATORY: No dyspnea. Clear to auscultation and equal bilaterally. CARDIOVASCULAR: Regular rate and rhythm.No murmur appreciated. GASTROINTESTINAL: Abdomen soft, non-tender, no peritonitis. RECTAL: Grossly bloody stool. No fluctuant masses, no hemorrhoids appreciated. EXTREMITIES: Normal motion all extremities, no cyanosis, no edema. NEUROLOGIC: Alert and oriented. No focal neurologic deficits appreciated SKIN: No rash, no jaundice, no diaphoresis. PSYCH: Appropriate GCS: 15 ED Course: Times/Reassessments: Anxiety seems improved after getting here. Vitals remained stable. She is agreeable to hospitalization. Roger Aldridge MD Past Med/Surg History Medical History Hepatic cirrhosis History of ischemic colitis GI bleed pt unaware CHF (congestive heart failure) Anemia Osteoporosis GERD (gastroesophageal reflux disease) Hyperparathyroidism Hypertension Poor historian Abnormal EKG pt unaware Acute respiratory failure CVA (cerebral vascular accident) Jan 2022 per pt > has some right hand weakness > does not follow with neuro Weakness of right upper extremity s/p CVA, just on occasion Lumbago Other and unspecified hyperlipidemia Type 2 diabetes mellitus without complications Essential (primary) hypertension 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 Acute heart failure with preserved ejection fraction (HFpEF) pt unaware Acute respiratory failure with hypoxia pt unaware Surgical History History of colonoscopy History of endovascular stent graft for abdominal aortic aneurysm unsure if this is exactly what she has, but had done in Apr 2022 at [place] she thinks it was for AAA S/P tonsillectomy S/P hysterectomy S/P appendectomy History of heart artery stent placed 1994 S/P cholecystectomy History of cataract surgery bilat Family History Mother , age 70 of a stroke and congestive heart failure Stroke CHF (congestive heart failure) Father , in his 70s of an [place] Myocardial infarction Social History Smoking Status: Unknown if ever smoked packs per day: 4; Second Hand Exposure: No; Do You Dip or Chew Tobacco: No; Tobacco Cessation Education Requested by Patient: No Hx Alcohol Use: No Hx Substance Use: No Preferred Language: Ivorian Communication Ability: Effective 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 Other Information That Helps Us Care for You: No Feels Safe at Home: Yes Safety Concerns: Feels Safe At This Time Assistive Devices: None Allergies Allergies Allergy/AdvReac Type Severity Reaction Status Date / Time metals Allergy Intermediate CHEAP Uncoded 04/25/23 09:49 METALS--RASH Home Meds Home Medications Medication Instructions Recorded Confirmed alendronate 70 mg tablet 70 mg PO WK 01/22/22 04/24/23 biotin 1 mg tablet 1 mg PO DAILY 01/22/22 04/24/23 cinacalcet 30 mg tablet (Sensipar) 30 mg PO QAM 01/22/22 04/24/23 glucosamine-chondroitin 250 mg-200 1 tab PO DAILY 01/22/22 04/24/23 mg tablet (Osteo Bi-Flex) insulin human U-100 NPH-regulr See Rx Instructions .Route .COMPLEX 01/22/22 04/24/23 70-30 mix 100 unit/mL subcutaneous susp (Novolin 70/30 U-100 Insulin) losartan 25 mg tablet 25 mg PO QAM 01/22/22 04/24/23 metformin 1,000 mg tablet 1,000 mg PO BID 01/22/22 04/24/23 vitamin B complex 1 tab PO DAILY 01/22/22 04/24/23 atorvastatin 40 mg tablet 40 mg PO QPM 08/19/22 04/24/23 furosemide 40 mg tablet (Lasix) 40 mg PO QAM 08/19/22 04/24/23 pantoprazole 40 mg tablet,delayed 40 mg PO QAM 08/19/22 04/24/23 release acetaminophen 325 mg tablet 650 mg PO DIRECTED PRN Pain 09/25/22 04/24/23 (Tylenol) clopidogrel 75 mg tablet (Plavix) 75 mg PO DAILY 09/25/22 04/24/23 epinephrine 0.3 mg/0.3 mL 0.3 mg IM DIRECTED PRN Allergic 09/25/22 04/24/23 injection, auto-injector (EpiPen) Reaction iron,carbonyl 65 mg-vitamin C 125 1 tab PO QDD 09/25/22 04/24/23 mg tablet,delayed release (Vitron-C) melatonin 10 mg tablet 10 mg PO HS 09/25/22 04/24/23 ldjdwbhymlut-hobjklec-chvajq tablet 1 tab PO DAILY 09/25/22 04/24/23 Previous Rx's Medication Instructions Recorded magnesium oxide 400 mg (241.3 mg 400 mg PO DAILY #60 tabs 01/29/22 magnesium) tablet metoprolol tartrate 25 mg tablet 12.5 mg (1/2 x 25 mg) PO BID #30 01/29/22 tabs Results & Data (ED) Vital Signs Vital Signs - 24 hr 04/24/23 11:34 04/24/23 11:34 04/24/23 12:17 Temperature 36.6 C Temperature Source Oral Pulse Rate 80 80 Pulse Rate [Right Finger] 77 Respiratory Rate 28 H 28 H 18 Respiratory Effort / Characteristics Non-Labored Non-Labored Respiratory Depth Normal Normal Blood Pressure 128/64 Blood Pressure [Left Arm] 133/60 Blood Pressure Mean 85 Blood Pressure Mean [Left Arm] 84 Pulse Oximetry 100 100 98 Oxygen Delivery Method Room Air Room Air Room Air Sepsis Recent Fever Within 48 Hours No Sepsis New/Unexplained Change in Mental Status N/A Sepsis Action Taken by Nursing No Action Required 04/24/23 12:18 Temperature Temperature Source Pulse Rate 72 Pulse Rate [Right Finger] Respiratory Rate Respiratory Effort / Characteristics Respiratory Depth Blood Pressure Blood Pressure [Left Arm] Blood Pressure Mean Blood Pressure Mean [Left Arm] Pulse Oximetry Oxygen Delivery Method Sepsis Recent Fever Within 48 Hours Sepsis New/Unexplained Change in Mental Status Sepsis Action Taken by Nursing Laboratory Data 04/25/23 05:38 04/25/23 05:38 Lab Results 04/24/23 Range/Units 11:50 WBC 7.18 (4.8-10.8) K/ul RBC 3.27 L (4.20-5.40) M/uL Hgb 8.5 L (12.0-16.0) g/dl Hct 26.8 L (37.0-47.0) % MCV 82.0 (80.0-100.0) fL MCH 26.0 (25.0-34.0) pg MCHC 31.7 L (32.0-36.0) g/dL RDW Std Deviation 67.2 H (36.4-46.3) fL RDW Coeff of Vanita 22.8 H (11.5-14.5) % Plt Count 129 L (130-400) K/uL MPV 12.2 (9.4-12.4) fL Immature Gran % (Auto) 0.3 % Neut % (Auto) 72.5 % Lymph % (Auto) 16.2 % [place] % (Auto) 9.7 % Eos % (Auto) 0.6 % Baso % (Auto) 0.7 % Neut # (Auto) 5.21 (1.40-6.50) K/uL Lymph # (Auto) 1.16 L (1.20-3.40) K/uL [place] # (Auto) 0.70 H (0.11-0.59) K/uL Eos # (Auto) 0.04 (0.00-0.50) K/uL Baso # (Auto) 0.05 (0.00-0.20) K/uL Immature Gran # (Auto) 0.02 (0.01-0.20) K/uL Polychromasia 1+ Ovalocytes 1+ Echinocytes 1+ Acanthocytes (Spur) 1+ PT 14.9 H (9.0-12.0) Seconds INR 1.4 H (0.9-1.1) APTT 24 (21-31) Seconds PTT Ratio 0.9 Sodium 136 (136-145) mmol/L Potassium 5.0 (3.5-5.1) mmol/L Chloride 102 (98-107) mmol/L Carbon Dioxide 19 L (21-32) mmol/L Anion Gap 15 H (3-11) BUN 17 (6-23) mg/dl Creatinine 0.94 (0.6-1.2) mg/dl Est Cr Clr Drug Dosing 44.6 ml/min Est GFR ( Amer) 65.5 ml/min Est GFR (Non-Af Amer) 56.5 ml/min BUN/Creatinine Ratio 18.1 (10-20) Glucose 157 H (70-99(Fasting)) mg/dl Calcium 7.7 L (8.6-10.3) mg/dl Magnesium 1.3 L (1.7-2.4) mg/dl Total Bilirubin 1.1 H (0.2-1.0) mg/dl Direct Bilirubin 0.3 H (0-0.2) mg/dl AST 35 (13-39) U/L ALT 23 (7-52) U/L Alkaline Phosphatase 48 (34-104) U/L Troponin I High Sens 11.1 (0-14) pg/ml Total Protein 5.6 L (6.0-8.3) gm/dl Albumin 2.7 L (3.4-5.0) gm/dl Lipase 28 (11-82) U/L Administered Medications Atorvastatin Calcium (Atorvastatin 40 Mg Tab) 40 mg PO QPM DESIREE Stop: 05/24/23 20:59 Last Admin: 04/24/23 22:56 Dose: Not Given Documented By: ARNALDO Pantoprazole Sodium 40 mg/ (Dextrose) 100 mls @ 20 mls/hr IV Q5H [facility] Stop: 05/25/23 08:59 Last Admin: 04/25/23 10:54 Dose: 8 mg/hr, 20 mls/hr Documented By: GEN Octreotide Acetate 500 mcg/ (Sodium Chloride) 100.5 mls @ 10.05 mls/hr IV .Q10H [facility] Stop: 05/25/23 08:59 Last Admin: 04/25/23 10:57 Dose: 50 mcg/hr, 10.1 mls/hr Documented By: GEN Insulin Aspart (Insulin Aspart Per Unit Charge) 0 units SC Q6 [facility] Stop: 05/24/23 14:59 Last Admin: 04/25/23 06:01 Dose: 2 units Documented By: ARNALDO Co-signed By: [id number] Admin: 04/25/23 00:31 Dose: 4 units Documented By: ARNALDO Co-signed By: [id number] Admin: 04/24/23 20:52 Dose: 4 units Documented By: ARNALDO Co-signed By: [facility] Admin: 04/24/23 18:38 Dose: Not Given Documented By: GRECIA Metoprolol Tartrate (Metoprolol Tartrate 25 Mg Tab) 12.5 mg PO BID [facility] Stop: 05/24/23 20:59 Last Admin: 04/25/23 11:04 Dose: Not Given Documented By: Admin: 04/24/23 22:56 Dose: Not Given Documented By: ARNALDO Discontinued Medications Pantoprazole Sodium 80 mg/ (Dextrose) 120 mls @ 480 mls/hr IV [facility] Stop: 04/24/23 11:47 Last Infusion: 04/24/23 12:13 Dose: Infused Documented By: Admin: 04/24/23 11:58 Dose: 480 mls/hr Documented By: NRB Magnesium Sulfate/Dextrose (Magnesium Sulfate / D5w) 1 gm in 100 mls @ 100 mls/hr IV NOW STA Stop: 04/24/23 13:29 Last Infusion: 04/24/23 15:57 Dose: Infused Documented By: Admin: 04/24/23 14:52 Dose: 100 mls/hr Documented By: DEMETRIS Magnesium Sulfate/Dextrose (Magnesium Sulfate / D5w) 1 gm in 100 mls @ 50 mls/hr IV ONE ONE Stop: 04/24/23 16:58 Last Infusion: 04/24/23 18:39 Dose: Infused Documented By: Admin: 04/24/23 15:56 Dose: 50 mls/hr Documented By: GRECIA Pantoprazole Sodium 40 mg/ (Syringe) 10 mls @ 5 mls/min IV BID [facility] Stop: 05/24/23 20:59 Last Admin: 04/24/23 20:52 Dose: 5 mls/min Documented By: ARNALDO Ceftriaxone Sodium 2,000 mg/ (Dextrose) 50 mls @ 100 mls/hr IV ONE ONE; Protocol Stop: 04/24/23 16:44 Last Infusion: 04/24/23 19:37 Dose: Infused Documented By: Admin: 04/24/23 18:33 Dose: 100 mls/hr Documented By: GRECIA Insulin Glargine (Lantus Per Unit Charge) 0 units SQ BID DESIREE; Protocol Stop: 05/24/23 20:59 Last Admin: 04/24/23 21:47 Dose: 7 units Documented By: ARNALDO Co-signed By: TY Ioversol (Optiray 320 500ml) 81 ml IV ONCE ONE Stop: 04/24/23 14:21 Last Admin: 04/24/23 14:21 Dose: 81 ml Documented By: TAMAR Lidocaine HCl (Lidocaine 2% 2 Ml Vial/Amp(20mg/Ml)) Confirm Administered Dose 6 ml INFIL .STK-MED ONE Stop: 04/25/23 09:49 Last Admin: 04/25/23 11:03 Dose: Not Given Documented By: GEN Octreotide Acetate (Octreotide Acetate 100 Mcg/Ml Vial) 50 mcg SQ NOW STA Stop: 04/25/23 08:44 Last Admin: 04/25/23 10:56 Dose: 50 mcg Documented By: GEN Propofol (Propofol Iv Emulsion 10 Mg/Ml 20 Ml Vial) Confirm Administered Dose 200 mg IV .STK-MED ONE Stop: 04/25/23 09:49 Last Admin: 04/25/23 11:03 Dose: Not Given Documented By: LAF Discharge Plan Visit Data Chief Complaint: GI Bleed ED Provider: Roger Aldridge Discharge Problem: GI bleed Patient Disposition: Admitted As Inpatient Discharge Instructions Interventions: ED Discharge Assessment Last Done: 04/24/23 16:18
[2023-04-24 12:20] LABS: Basophils # (auto) 0.05 K/uL (0.00-0.20); Basophils % (auto) 0.7 %; Eosinophils # (auto) 0.04 K/uL (0.00-0.50); Eosinophils % (auto) 0.6 %; Hematocrit (blood only) 26.8 % (37.0-47.0); Hemoglobin 8.5 g/dl (12.0-16.0); Immature Granulocytes # (auto) 0.02 K/uL (0.01-0.20); Immature Granulocytes % (auto) 0.3 %; Lymphocytes # (auto) 1.16 K/uL (1.20-3.40); Lymphocytes % (auto) 16.2 %; Mean Corpuscular Hgb Conc 31.7 g/dL (32.0-36.0); Mean Platelet Volume 12.2 fL (9.4-12.4); Monocytes % (auto) 9.7 %; Neutrophils # (auto) 5.21 K/uL (1.40-6.50); Neutrophils % (auto) 72.5 %; Platelet Count 129 K/uL (130-400); RDW Coefficient of Variation 22.8 % (11.5-14.5); RDW Standard Deviation 67.2 fL (36.4-46.3); Red Blood Count 3.27 M/uL (4.20-5.40); White Blood Count 7.18 K/ul (4.8-10.8)
[2023-04-24 12:29] LABS: Albumin Level 2.7 gm/dl (3.4-5.0); BUN Creatinine Ratio 18.1 (10-20); Bilirubin Direct 0.3 mg/dl (0-0.2); Bilirubin,Total 1.1 mg/dl (0.2-1.0); Calcium 7.7 mg/dl (8.6-10.3); Creatinine Clr Calc Pharmacy 44.6 ml/min; Est GFR (African American) 65.5 ml/min; Est GFR (Non-African American) 56.5 ml/min; Magnesium 1.3 mg/dl (1.7-2.4); Total Protein 5.6 gm/dl (6.0-8.3)
[2023-04-24] MEDS ORDERED: MAGNESIUM SULFATE / D5W 1 GM/100 ML BAG IV STA (12:30)
[2023-04-24 12:35] LABS: Troponin I High Sensitivity 11.1 pg/ml (0-14)
[2023-04-24 12:39] LABS: INR 1.4 (0.9-1.1); Partial Thromboplastin Ratio 0.9; Partial Thromboplastin Time 24 Seconds (21-31); Prothrombin Time 14.9 Seconds (9.0-12.0)
[2023-04-24 12:49] LABS: Acanthocytes 1+; Echinocytes 1+; Ovalocytes 1+; Polychromasia 1+
[2023-04-24] MEDS ORDERED: GLUCOSE 10 TAB/TUBE PO PRN (13:30)
[2023-04-24] MEDS ORDERED: PHARMACY GLYCEMIC MGMT CONSULT PRN (13:30)
[2023-04-24] MEDS ORDERED: ALUMINUM/MAGNESIUM SUSP 30 ML UDC PO PRN (13:30)
[2023-04-24] MEDS ORDERED: ONDANSETRON INJ 2 MG/ML 2 ML VIAL IV PRN (13:30)
[2023-04-24] MEDS ORDERED: POLYETHYLENE (MIRALAX) 17 GM PACK PO PRN (13:30)
[2023-04-24] MEDS ORDERED: CARBOHYDRATES FOR HYPOGLYCEMIA PO PRN (13:30)
[2023-04-24] MEDS ORDERED: ACETAMINOPHEN 325 MG TAB PO PRN (13:30)
[2023-04-24] MEDS ORDERED: GLUCOSE 40% GEL 15 GM TUBE PO PRN (13:30)
[2023-04-24] MEDS ORDERED: DEXTROSE 50% 50 ML SYRINGE IV PRN (13:30)
[2023-04-24] MEDS ORDERED: GLUCAGON FOR INJ 1 MG VIAL SQ PRN (13:30)
[2023-04-24] MEDS ORDERED: MAGNESIUM HYDROXIDE SUSP 30 ML UDC PO PRN (13:30)
--- NOTE | 2023-04-24 13:50 | History & Physical Report ---
Date of Service April 24, 2023 Assessment & Plan (1) GI bleed: (2) Colitis: (3) History of ischemic colitis: (4) Hepatic cirrhosis: (5) Chronic heart failure with preserved ejection fraction (HFpEF): (6) DM type 2 (diabetes mellitus, type 2): (7) GERD (gastroesophageal reflux disease): (8) HTN (hypertension): Plan The patient is an 81 year old female with past medical history of type II diabetes, dyslipidemia, HFpEF, SMA stenosis with stent placement, HTN, and h/o CVA. Patient notes she awoke this morning and had a large bowel movement with blood. Denies any specific abdominal pain, fevers, nausea, lightheadedness, weakness, recent falls or trauma. 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 Iverson. Patient does take Plavix daily. No other blood thinners. States otherwise had been feeling well the last few days. No medications prior to arrival. Patient was due for mesenteric duplex with carotid duplex scan this week 2022. Abdominal aortic ectasia noted on CTA 2021 2.5 cm. No leukocytosis, Hgb 8.5 baseline is 8-9, slight thrombocytopenia platelets 129. Mag 1.3, calcium 7.7. Hemodynamically stable on room air, afebrile and normotensive without tachycardia. In the ED 1 dose of Protonix was administered; abdominal pelvis CT results as follows: Bilateral pulmonary lesions as above. These were also present on the 04/27/2022 examination, and the subsolid lesion in the right lower lobe is increasingly conspicuous from previous. These are suspicious for low-grade pulmonary neoplasms. Follow-up with pulmonology is recommended. 2. No acute infectious or inflammatory findings are identified in the abdomen or pelvis. 3. Cirrhotic liver morphology. 4. Esophageal varices, perigastric varices, and a splenorenal shunt indicate portal hypertension. 5. Large calcified structures in the right upper quadrant favor dropped gallstones. There is also likely a gallstone within a hernia in the right ventral abdominal wall. These are unchanged from previous. 6. Colonic diverticulosis without CT evidence of acute diverticulitis. 7. An 8.4 cm simple cystic structure in the right adnexa is likely related to right ovary is similar to previous. This is pathologically indeterminate but abnormal in this age group. 8. Bilateral nephrolithiasis. Patient does indicate that she is a DNR/DNI. She is in no apparent distress and is normotensive. Will admit for GIB and monitor CBC; suspect may transfuse if < 7.0. Will replace electrolytes and treat with abx due to cirrhosis. Will hold Plavix and other anti-hypertensives. Keep NPO for now await GI Consult. 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 Did not want to pursue Fe+ transfusions previously Hepatic cirrhosis: Acute Start ceftriaxone LFTs normal HFpEF: Chronic stable Takes Lasix 60 mg daily;hold for now given bleed and soft BP Most recent ECHO 05/05: EF > 70%, [id number], No MR, mild mitral stenosis Hypomagnesemia: acute Serum Mg+ 1.3; replaced with 2 G; trend lab in AM Insulin-dependent DM2: Chronic stable Takes metformin; hold while inpatient Take 70/30; order ACHS SSI while inpatient Glycemic pharmacy consult placed H.O CVA: 02/03; does not follow with neuro No residual effects On Plavix; hold for now given bleed risk HTN: Takes losartan and metoprolol; hold for now given bleeding and lower bp Disposition: PCP: Dr. Al Code Status: DNR/DNI VTE Prophylaxis: Teds and SCDs for now I spent a total of 87 minutes coordinating, documenting, and providing care for this patient excluding time spent in the performance of separately billed services. All of the aforementioned completed while collaborating with the assigned attending physician for a full treatment plan. Please see their addendum for further details. History of Present Illness Chief Complaint: gross hematochezia Primary Care Provider: Alexy Al MD The patient is an 81 year old female with past medical history of type II diabetes, dyslipidemia, HFpEF, SMA stenosis with stent placement, HTN, and h/o CVA. Patient notes she awoke this morning and had a large bowel movement with blood. Denies any specific abdominal pain, fevers, nausea, lightheadedness, weakness, recent falls or trauma. 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 Iverson. Patient does take Plavix daily. No other blood thinners. States otherwise had been feeling well the last few days. No medications prior to arrival. Patient was due for mesenteric duplex with carotid duplex scan this week 2022. Abdominal aortic ectasia noted on CTA 2021 2.5 cm No leukocytosis, Hgb 8.5 baseline is 8-9, slight thrombocytopenia platelets 129. Mag 1.3, calcium 7.7. Hemodynamically stable on room air, afebrile and normotensive without tachycardia. In the ED 1 dose of Protonix was administered; abdominal pelvis CT results as follows: Bilateral pulmonary lesions as above. These were also present on the 04/27/2022 examination, and the subsolid lesion in the right lower lobe is increasingly conspicuous from previous. These are suspicious for low-grade pulmonary neoplasms. Follow-up with pulmonology is recommended. 2. No acute infectious or inflammatory findings are identified in the abdomen or pelvis. 3. Cirrhotic liver morphology. 4. Esophageal varices, perigastric varices, and a splenorenal shunt indicate portal hypertension. 5. Large calcified structures in the right upper quadrant favor dropped gallstones. There is also likely a gallstone within a hernia in the right ventral abdominal wall. These are unchanged from previous. 6. Colonic diverticulosis without CT evidence of acute diverticulitis. 7. An 8.4 cm simple cystic structure in the right adnexa is likely related to right ovary is similar to previous. This is pathologically indeterminate but abnormal in this age group. 8. Bilateral nephrolithiasis. Patient does indicate that she is a DNR/DNI. She is in no apparent distress and is normotensive. Will admit for GIB and monitor CBC; suspect may transfuse if < 7.0. Will replace electrolytes and treat with abx due to cirrhosis. Will hold Plavix and other anti-hypertensives. Keep NPO for now await GI Consult. Patient will be admitted for further evaluation and management. Please see A/P for further details. Allergies Allergy/AdvReac Type Severity Reaction Status Date / Time metals Allergy Intermediate CHEAP Uncoded 04/25/23 09:49 METALS--RASH Home Medications Medication Instructions Recorded Confirmed Type alendronate 70 mg tablet 70 mg PO WK 01/22/22 04/24/23 History biotin 1 mg tablet 1 mg PO DAILY 01/22/22 04/24/23 History cinacalcet 30 mg tablet (Sensipar) 30 mg PO QAM 01/22/22 04/24/23 History glucosamine-chondroitin 250 mg-200 1 tab PO DAILY 01/22/22 04/24/23 History mg tablet (Osteo Bi-Flex) insulin human U-100 NPH-regulr See Rx Instructions .Route .COMPLEX 01/22/22 04/24/23 History 70-30 mix 100 unit/mL subcutaneous susp (Novolin 70/30 U-100 Insulin) losartan 25 mg tablet 25 mg PO QAM 01/22/22 04/24/23 History metformin 1,000 mg tablet 1,000 mg PO BID 01/22/22 04/24/23 History vitamin B complex 1 tab PO DAILY 01/22/22 04/24/23 History magnesium oxide 400 mg (241.3 mg 400 mg PO DAILY #60 tabs 01/29/22 04/24/23 Rx magnesium) tablet metoprolol tartrate 25 mg tablet 12.5 mg (1/2 x 25 mg) PO BID #30 01/29/22 04/24/23 Rx tabs atorvastatin 40 mg tablet 40 mg PO QPM 08/19/22 04/24/23 History furosemide 40 mg tablet (Lasix) 40 mg PO QAM 08/19/22 04/24/23 History pantoprazole 40 mg tablet,delayed 40 mg PO QAM 08/19/22 04/24/23 History release acetaminophen 325 mg tablet 650 mg PO DIRECTED PRN Pain 09/25/22 04/24/23 History (Tylenol) clopidogrel 75 mg tablet (Plavix) 75 mg PO DAILY 09/25/22 04/24/23 History epinephrine 0.3 mg/0.3 mL 0.3 mg IM DIRECTED PRN Allergic 09/25/22 04/24/23 History injection, auto-injector (EpiPen) Reaction iron,carbonyl 65 mg-vitamin C 125 1 tab PO QDD 09/25/22 04/24/23 History mg tablet,delayed release (Vitron-C) melatonin 10 mg tablet 10 mg PO HS 09/25/22 04/24/23 History isrjvnbydhkh-vlhbdqkp-kialjx tablet 1 tab PO DAILY 09/25/22 04/24/23 History Past Med/Surg History Medical History Hepatic cirrhosis History of ischemic colitis GI bleed pt unaware CHF (congestive heart failure) Anemia Osteoporosis GERD (gastroesophageal reflux disease) Hyperparathyroidism Hypertension Poor historian Abnormal EKG pt unaware Acute respiratory failure CVA (cerebral vascular accident) Jan 2022 per pt > has some right hand weakness > does not follow with neuro Weakness of right upper extremity s/p CVA, just on occasion Lumbago Other and unspecified hyperlipidemia Type 2 diabetes mellitus without complications Essential (primary) hypertension Coronary atherosclerosis of lower [place] coronary vessel Acute heart failure with preserved ejection fraction (HFpEF) pt unaware Acute respiratory failure with hypoxia pt unaware Surgical History History of colonoscopy History of endovascular stent graft for abdominal aortic aneurysm unsure if this is exactly what she has, but had done in Apr 2022 at [place] she thinks it was for AAA S/P tonsillectomy S/P hysterectomy S/P appendectomy History of heart artery stent placed 1994 S/P cholecystectomy History of cataract surgery bilat Family History Mother , age 70 of a stroke and congestive heart failure Stroke CHF (congestive heart failure) Father , in his 70s of an DE Myocardial infarction Social History Smoking Status: Unknown if ever smoked packs per day: 4; Second Hand Exposure: No; Do You Dip or Chew Tobacco: No; Tobacco Cessation Education Requested by Patient: No Hx Alcohol Use: No Hx Substance Use: No Preferred Language: Macanese Communication Ability: Effective Patient Care Technician Required: No Beliefs That Will Affect Care: None marital status: Current Living Situation: Spouse current occupational status: retired current occupation: Multiple different jobs retiring in her 50s. Other Information That Helps Us Care for You: No Feels Safe at Home: Yes Safety Concerns: Feels Safe At This Time Assistive Devices: None Review of Systems Review of Systems: Neuro: (-) Falls, trauma, slurred speech HEENT: (-) BROWN, dizziness, dysphagia, visual or auditory changes CV: (-) CP, palpitations, swelling Resp: (-) SOB GI: (-) appetite changes, N/V/D, bowel changes : (-) urinary changes Skin: (-) rashes Psych: (-) anxiety, depression Physical Exam Physical Exam: Neuro: AAOx4, PERRLA, no aphagia, memory changes, CNII-XII grossly intact HEENT: head normocephalic, moist mucus membranes CV: S1/S2, (-) M/G/R, (-) edema, cap refill < 3 seconds Resp: Lungs CTA in all ardon. On RA GI: Abdomen S/NT/ND, Ax4 bowel sounds, (-) CVA tenderness Musculoskeletal: 5/5 B/L UE strength, 5/5 B/L LE strength. No gait disturbance Skin: (-) rashes , (-) erythema. Psych: euthymic mood Results & Data Results & Data Vital Signs (Past 12 Hours) Vital Signs Temp Pulse Pulse Resp BP BP Pulse Ox 04/24/23 12:18 72 04/24/23 12:17 77 18 133/60 98 04/24/23 11:34 80 28 H 100 04/24/23 11:34 36.6 C 80 28 H 128/64 100 O2 Del Method 04/24/23 12:18 04/24/23 12:17 Room Air 04/24/23 11:34 Room Air 04/24/23 11:34 Room Air Laboratory Results Short CBC 04/24/23 Range/Units 11:50 WBC 7.18 (4.8-10.8) K/ul Hgb 8.5 L (12.0-16.0) g/dl Hct 26.8 L (37.0-47.0) % Plt Count 129 L (130-400) K/uL BMP 04/24/23 11:50 Sodium 136 Potassium 5.0 Chloride 102 Carbon Dioxide 19 L BUN 17 Creatinine 0.94 Glucose 157 H Calcium 7.7 L Liver Function 04/24/23 Range/Units 11:50 Total Bilirubin 1.1 H (0.2-1.0) mg/dl Direct Bilirubin 0.3 H (0-0.2) mg/dl AST 35 (13-39) U/L ALT 23 (7-52) U/L Alkaline Phosphatase 48 (34-104) U/L Albumin 2.7 L (3.4-5.0) gm/dl Diagnostic Findings Abdomen/Pelvis CT 04/24/23 13:50 CT SCAN OF THE ABDOMEN AND PELVIS COMBO CLINICAL HISTORY: Hematochezia. COMPARISON STUDY: Abdominal CT dated 05/06/2022 and 04/27/2022. TECHNIQUE: Before and following the IV administration of 81 cc of Optiray 320, CT scan of the abdomen and pelvis is performed from the lung bases to the proximal femora. Images are reviewed in the axial, sagittal, and coronal planes. IV contrast was administered without complication. A dose lowering technique was utilized adhering to the principles of ALARA. CT DOSE: 2410.02 mGy.cm FINDINGS: Lung bases: The heart is top normal in size and without pericardial effusion. The coronary arteries and mitral annulus are densely calcified. A 13 mm irregular pleural-based nodule is seen in the left lower lobe on image #48. A second 11 mm irregular nodular opacity in the left lower lobe is seen on image #26. These lesions were seen on the 04/27/2022 examination and are highly suspicious for neoplasm. A 16 mm groundglass opacity in the right lower lobe is seen on image #11. This is increasingly conspicuous from previous. A 3 mm right lower lobe nodule is seen on image #24. Parenchymal scarring is seen at both lung bases. There is trace left pleural effusion. Calcified granulomas noted right lung base. Esophageal varices are noted. Liver: The contrast-enhanced liver is cirrhotic in morphology and heterogeneous in attenuation. There is hypertrophy of the left lobe and nodularity of the hepatic surface contour. There is no intrahepatic biliary ductal dilatation. The hepatic veins and portal veins are patent. Gallbladder: Surgically absent noting clips in the gallbladder fossa. There are 2 large calcified structures in the right upper quadrant January which measure up to 2.7 cm. The appearance favors dropped gallstones. Spleen: Normal in size and attenuation. There are perigastric varices with evidence of a splenorenal shunt. Pancreas: Moderately atrophic and grossly unremarkable. Adrenal glands: Unremarkable. Kidneys: The contrast enhanced kidneys are normal in size and without hydronephrosis. Small nonobstructing right renal calculi measuring up to 5 mm. A punctate nonobstructing calculus is seen in the left kidney on the unenhanced series. The kidneys enhance symmetrically. A 1.8 cm cyst is noted in the left upper pole. Additional subcentimeter cortical hypodensities also likely represe nt cysts but are too small for definitive characterization. Abdominal vasculature: There is advanced atherosclerotic calcification and ectasia of the abdominal aorta. Bowel: There is mild to moderate colonic diverticulosis without CT evidence of acute diverticulitis. No bowel obstruction is seen. The appendix is not identified and reported surgically absent. Peritoneum: There is no intraperitoneal free air or abdominal ascites. There is a fat-containing hernia in the right midabdomen seen on image #117. This contains a calcified structure which likely represents a retained gallstone. Lymphadenopathy: None. Pelvic viscera: The the bladder is normal as visualized. The uterus is surgically absent. An 8.4 cm simple cystic structure in the right adnexa is similar to previous. Skeletal structures: The skeletal structures are osteopenic. There is moderate lumbosacral spondylosis as well as scoliosis. No lytic or blastic lesions are seen. IMPRESSION: 1. Bilateral pulmonary lesions as above. These were also present on the 04/27/2022 examination, and the subsolid lesion in the right lower lobe is increasingly conspicuous from previous. These are suspicious for low-grade pu lmonary neoplasms. Follow-up with pulmonology is recommended. 2. No acute infectious or inflammatory findings are identified in the abdomen or pelvis. 3. Cirrhotic liver morphology. 4. Esophageal varices, perigastric varices, and a splenorenal shunt indicate portal hypertension. 5. Large calcified structures in the right upper quadrant favor dropped gallstones. There is also likely a gallstone within a hernia in the right ventral abdominal wall. These are unchanged from previous. 6. Colonic diverticulosis without CT evidence of acute diverticulitis. 7. An 8.4 cm simple cystic structure in the right adnexa is likely related to right ovary is similar to previous. This is pathologically indeterminate but abnormal in this age group. 8. Bilateral nephrolithiasis. 9. Additional findings as above. ACT 112: Positive. There are findings on this exam that require communication between the performing entity and the patient following Patient Test Result Information Act ([place] Act 112) guidelines. Electronically signed by: Kahlil Mojica M.D. 04/24/2023 2:56 PM Code Status & VTE Plan Code Status DNR/DNI in the event of cardiac or respiratory arrest VTE Prophylaxis Plan VTE Prophylaxis will be ordered: Yes Supervising Physician Co-Signing Physician Notes Pt seen and examined by myself, Jesusita Cagle MD on the day of service. Care was coordinated with MELISSA Sierra. 82yoF admitted with concern for GI bleed. Trend H/H, IV protonix, Rocephin in setting of cirrhosis, GI Consult. Transfuse as needed for hgb <7 or less than 8 with symptoms. otherwise as above.
[2023-04-24] MEDS ORDERED: OPTIRAY 320 500ml IV ONE (14:20)
--- NOTE | 2023-04-24 14:46 | Pharmacy Report ---
Pharmacy Glycemic Short Note 2 - Date of Service April 24, 2023 - Glycemic Short BSG Results (Last 24 hours): 04/24/23 11:50 Glucose 157 H OUTPATIENT ANTIDIABETIC REGIMEN: * Novolin 70/30 25 units qAM, 10 units qPM * metformin 1gm PO BID HbA1C:__ ASSESSMENT: * 82 year old female admitted in setting of GIB. History of DM2. Pharmacy consulted to assist with glycemic management while inpatient. * BSG at lunch today, 157mg/dl. Currently NPO. * Basal/bolus insulin initiated. Agree with mild-moderate stress scale Novolog. Scaled Lantus BID based upon BSG while NPO. PLAN FOR INPATIENT GLYCEMIC CONTROL: * Hold outpatient oral diabetes medications * Basal insulin * Lantus 0/7 units SQ BID depending on BSG * Bolus insulin * NovoLog per scale ACHS or Q6hrs while NPO * Goal Range: Low 120 mg/dL - High 160 mg/dL * Correction Factor: 35 mg/dL/unit * Nutritional / Prandial insulin per carb ratio of 1 unit per 12 grams CHO consumed
--- NOTE | 2023-04-24 14:58 | CT Scan Report ---
CT SCAN OF THE ABDOMEN AND PELVIS COMBO CLINICAL HISTORY: Hematochezia. COMPARISON STUDY: Abdominal CT dated 05/06/2022 and 04/27/2022. TECHNIQUE: Before and following the IV administration of 81 cc of Optiray 320, CT scan of the abdome n and pelvis is performed from the lung bases to the proximal femora. Images are reviewed in the axia l, sagittal, and coronal planes. IV contrast was administered without complication. A dose lowering t echnique was utilized adhering to the principles of ALARA. CT DOSE: 2410.02 mGy.cm FINDINGS: Lung bases: The heart is top normal in size and without pericardial effusion. The coronary arteries a nd mitral annulus are densely calcified. A 13 mm irregular pleural-based nodule is seen in the left l ower lobe on image #48. A second 11 mm irregular nodular opacity in the left lower lobe is seen on im age #26. These lesions were seen on the 04/27/2022 examination and are highly suspicious for neoplasm . A 16 mm groundglass opacity in the right lower lobe is seen on image #11. This is increasingly cons picuous from previous. A 3 mm right lower lobe nodule is seen on image #24. Parenchymal scarring is s een at both lung bases. There is trace left pleural effusion. Calcified granulomas noted right lung b ase. Esophageal varices are noted. Liver: The contrast-enhanced liver is cirrhotic in morphology and heterogeneous in attenuation. There is hypertrophy of the left lobe and nodularity of the hepatic surface contour. There is no intrahepa tic biliary ductal dilatation. The hepatic veins and portal veins are patent. Gallbladder: Surgically absent noting clips in the gallbladder fossa. There are 2 large calcified str uctures in the right upper quadrant January which measure up to 2.7 cm. The appearance favors dr opped gallstones. Spleen: Normal in size and attenuation. There are perigastric varices with evidence of a splenorenal shunt. Pancreas: Moderately atrophic and grossly unremarkable. Adrenal glands: Unremarkable. Kidneys: The contrast enhanced kidneys are normal in size and without hydronephrosis. Small nonobstru cting right renal calculi measuring up to 5 mm. A punctate nonobstructing calculus is seen in the lef t kidney on the unenhanced series. The kidneys enhance symmetrically. A 1.8 cm cyst is noted in the l eft upper pole. Additional subcentimeter cortical hypodensities also likely represent cysts but are t oo small for definitive characterization. Abdominal vasculature: There is advanced atherosclerotic calcification and ectasia of the abdominal a rosario. Bowel: There is mild to moderate colonic diverticulosis without CT evidence of acute diverticulitis. No bowel obstruction is seen. The appendix is not identified and reported surgically absent. Peritoneum: There is no intraperitoneal free air or abdominal ascites. There is a fat-containing [place] in the right midabdomen seen on image #117. This contains a calcified structure which likely repre sents a retained gallstone. Lymphadenopathy: None. Pelvic viscera: The the bladder is normal as visualized. The uterus is surgically absent. An 8.4 cm s imple cystic structure in the right adnexa is similar to previous. Skeletal structures: The skeletal structures are osteopenic. There is moderate lumbosacral spondylosi s as well as scoliosis. No lytic or blastic lesions are seen. IMPRESSION: 1. Bilateral pulmonary lesions as above. These were also present on the 04/27/2022 examination, and t he subsolid lesion in the right lower lobe is increasingly conspicuous from previous. These are suspi cious for low-grade pulmonary neoplasms. Follow-up with pulmonology is recommended. 2. No acute infectious or inflammatory findings are identified in the abdomen or pelvis. 3. Cirrhotic liver morphology. 4. Esophageal varices, perigastric varices, and a splenorenal shunt indicate portal hypertension. 5. Large calcified structures in the right upper quadrant favor dropped gallstones. There is also lik carla a gallstone within a hernia in the right ventral abdominal wall. These are unchanged from previou s. 6. Colonic diverticulosis without CT evidence of acute diverticulitis. 7. An 8.4 cm simple cystic structure in the right adnexa is likely related to right ovary is similar to previous. This is pathologically indeterminate but abnormal in this age group. 8. Bilateral nephrolithiasis. 9. Additional findings as above. ACT 112: Positive. There are findings on this exam that require communication between the performing entity and the patient following Patient Test Result Information Act ([place] Act 112) guidelines. Electronically signed by: Kahlil Mojica M.D. 04/24/2023 2:56 PM
[2023-04-24] MEDS ORDERED: MAGNESIUM SULFATE / D5W 1 GM/100 ML BAG IV ONE (14:59)
[2023-04-24 15:04] LABS: Phosphorus 3.2 mg/dl (2.5-4.9)
[2023-04-24] MEDS ORDERED: SODIUM CHLORIDE 0.9% 250 ML IV PRN (16:02)
[2023-04-24] MEDS ORDERED: cefTRIAXone SODIUM 2,000 MG in DEXTROSE 5 % MINI-B 50 ML IV ONE (16:15)
[2023-04-24] MEDS ORDERED: INSULIN ASPART PER UNIT CHARGE SC SCH (16:30)
[2023-04-24] MEDS: INSULIN ASPART PER UNIT CHARGE SC SCH ×2 (18:38→20:52)
--- OUTSIDE RECORDS SUMMARY | 2023-04-24 19:56 | External Medical Summary ---
Author Name Unknown Address Unknown Organization [id number]:[facility] [place] - [address] [place] [id number] Laboratory Report Ordering Provider Test Date Status JUAN FORD 03/28/2023 14:26:59 Final Observation Date Value Abnormality Reference (Units ) Status MYCODE SPECIMEN-SST 03/28/2023 14:26:59 Freezing of extracted DNA, whole blood and/or serum. Final Performing Location [facility] - [address] [place] [id number]
--- OUTSIDE RECORDS SUMMARY | 2023-04-24 19:56 | External Medical Summary ---
Author Name Unknown Address Unknown Organization [id number]:[facility] [place] [address] [place] [address] Laboratory Report Ordering Provider Test Date Status JUAN FORD 03/28/2023 14:26:59 Final Observation Date Value Abnormality Reference (Units ) Status MYCODE SPECIMEN-SST 03/28/2023 14:26:59 Freezing of extracted DNA, whole blood and/or serum. Final Performing Location [facility] [place] [address] [place] [address]
--- OUTSIDE RECORDS SUMMARY | 2023-04-24 19:56 | External Medical Summary | Summary of Care ---
Author Name Unknown Organization [facility] Address [address] [place] [address] Phone [phone] Care Team Providers Care Field Operations Supervisor Name Role Phone Alexy Al MD Primary Care Provider [phone] Reason for Visit * Reason Onset Date Comments Status Check Return in [address] [place] [address] Medication Administration 03/28/2023 Flu an d/or Pneumo Inj Encounter Details Date Type Department Care Team (Late st Contact Info) Description 03/28/2023 2:40 PM EST Office Visit [facility] [address] [place] [address] Alexy Al MD [address] [place] [address] Type 2 diabetes mellitus with hemoglobin A1c goal of less than 7.0% ([facility])*; Type 2 diabetes mellitus with diabetic nephropathy, with long-term current use of insulin ([facility]); Need for prophylactic vaccination and inoculation against influenza; Hyperparathyroidism, primary ([facility]); HTN, goal below 140/90; Encounter for long-term (current) use of medications; Hypomagnesemia; Hypertensive HF (heart failure) ([facility]); Chronic heart failure with preserved ejection fraction ([facility]) Allergies No known active allergiesdocumented as of this encounter (statuses as of 03/28/2023) Medications Medication Sig Dispensed Refills Start Date End Date Status CENTRUM SILVER PO TABS 1 TABLET DAILY 1 Tab 1 10/23/2009 Active OSTEO BI-FLEX JOINT SHIELD PO TABS daily OTC 1 Tab 1 10/23/2009 Active B Complex 100 TR Oral Tablet Extended Release Take by mouth . 0 Act adelina Biotin 1 MG Oral Capsule Take 1 Capsule by mouth in the morning and 1 Capsule at noon and 1 Capsule before bedtime. Taking once a daily. 0 Active Acetaminophen 325 MG Oral Tablet (Tylenol) Take 2 Tablets by mouth as needed (for mild to moderate reaction (infusion reaction protocol)). 2 Tablet 05/25/2022 Active Sodium Chloride 0.9 % Intravenous Solution To be administered in the event of anaphylactic reaction per [facility]IS IV iron anaphylaxis protocol 1000 mL 05/25/2022 Active Additional Information Patient not taking.Reported on 09/22/2022 Dexamethasone Sodium Phosphate 4 MG/ML Injection Solution (Decadron) Inject 8 mg intravenously as needed for Anaphylaxis (severe allergic reaction) (To be administered in the event of anaphylactic reaction per [facility]IS IV iron anaphylaxis protocol). 2 mL 05/25/2022 Active Additional Information Patient not taking.Reported on 08/11/2022 EPINEPHrine (Anaphylaxis) 1 MG/ML Injection Solution Inject 0.3 mL into a large muscle as needed for Anaphylaxis (severe allergic reaction) (To be administered in the event of anaphylactic reaction per [facility]IS IV iron anaphylaxis protocol). May repeat every 15 min as needed per infusion reaction protocol 2 mL 05/25/2022 Active Melatonin 10 MG Oral Tablet Take 1 Tablet by mouth at bedtime. 0 Active Vitron-C 65-125 MG Oral Tablet (Iron-Vitamin C 65-125 mg per tab) Take 1 Tablet by mouth daily with dinner. 90 Tablet 1 06/10/2022 Active OneTouch Delrosana Lancets 33G Test blood sugar twice daily E11.9 E11.29 400 Each 08/31/2022 Active Zoster Vac Recomb Adjuvanted 50 MCG/0.5ML Intramuscular Suspension Reconstituted (Shingrix)Indicatio ns:Need for vaccination for zoster Inject 0.5 mL into a large muscle now and repeat dose in 60 to 180 days 1 Each 09/16/2022 Active Additional Information Patient not taking.Reported on 03/28/2023 Magnesium 400 MG Oral Capsule Take 1 Capsule by mouth in the morning. 90 Capsule 1 10/11/2022 Active Magnesium Oxide -Mg Supplement 400 MG Oral Capsule TAKE ONE CAPSULE BY MOUTH EVERY MORNING 90 Capsule 10/11/2022 4 Active Insulin Syringe-Needle U-100 30G X 5/16" 1 ML USE TO INJECT INSULIN TWICE DAILY 200 Each 1 08/31/2022 4 Active Glucose Blood In Vitro Strip USE TO TEST BLOOD SUGAR TWICE DAILY 200 Strip 1 08/31/2022 4 Active OneTouch Delica Plus [id number] USE TO TEST BLOOD SUGAR TWICE DAILY 400 Each 1 08/31/2022 4 Active NovoLIN 70/30 (70-30) 100 UNIT/ML Subcutaneous SuspensionIndicatio ns:Type 2 diabetes mellitus with hemoglobin A1c goal of less than 8.0% (HCC) INJECT 25 UNITS SUBCUTANEOUSLY BEFORE BREAKFAST AND INJECT 10 UNITS BEFORE SUPPER. 40 mL 1 08/31/2022 4 Active Pantoprazole Sodium 40 MG Oral Tablet Delayed Release (Protonix) TAKE ONE TABLET BY MOUTH IN THE MORNING 100 Tablet 1 08/31/2022 4 Active Losartan Potassium 25 MG Oral Tablet (Cozaar)Indications :HTN, goal below 140/90 TAKE ONE TABLET BY MOUTH IN THE MORNING 100 Tablet 1 08/31/2022 4 Active metFORMIN HCl 1000 MG Oral Tablet (Glucophage)Indicat ions:Type 2 diabetes mellitus with hemoglobin A1c goal of less than 7.0% (HCC) TAKE ONE TABLET BY MOUTH IN THE MORNING AND ONE TABLET BEFORE BEDTIME WITH FOOD. 200 Tablet 1 08/31/2022 4 Active Furosemide 40 MG Oral Tablet (Lasix)Indications: Chronic heart failure with preserved ejection fraction (HCC) Take 1.5 Tablets by mouth in the morning. 100 Tablet 1 11/30/2022 Active Clopidogrel Bisulfate 75 MG Oral Tablet (pLAVix) Take 1 Tablet by mouth in the morning. 100 Tablet 3 01/26/2023 Active Alendronate Sodium 70 MG Oral Tablet (Fosamax) TAKE ONE TABLET BY MOUTH ONCE A WEEK WITH 8OZ OF WATER 30 MINUTES BEFORE THE FIRST MEAL OF THE DAY. REMAIN UPRIGHT FOR 30 MINUTES AFTER TAKING TABLET 12 Tablet 1 02/16/2023 4 Active Atorvastatin Calcium 40 MG Oral Tablet (Lipitor)Indication s:Dyslipidemia, goal LDL below 100 TAKE ONE TABLET BY MOUTH EVERY AFTERNOON 100 Tablet 3 03/06/2023 4 Active OneTouch Verio w/Device Kit Use up to 4 times a day E11.9 E11.29 1 Kit 0 03/06/2023 Active Cinacalcet HCl 30 MG Oral Tablet (Sensipar)Indicatio ns:Hyperparathyroid ism, primary (HCC) TAKE ONE TABLET BY MOUTH IN THE MORNING. 100 Tablet 1 03/23/2023 4 Active Metoprolol Tartrate 25 MG Oral Tablet (Lopressor) TAKE ONE-HALF TABLET BY MOUTH TWICE DAILY 100 Tablet 1 03/25/2023 4 Active documented as of this encounter (statuses as of 03/28/2023) Active Problems Problem Noted Date Diagnosed Date Hypertensive HF (heart failure) 03/28/2023 Superior mesenteric artery stenosis 08/03/2022 Mesenteric ischemia 08/03/2022 Cellulitis of right lower extremity 07/12/2022 Last Assessment & Plan: Begin Keflex 500 mg three times daily x7 days -recheck later this week Hepatic cirrhosis 05/20/2022 Last Assessment & Plan: Agreeable to see hepatology, referral in Hyponatremia 05/20/2022 Last Assessment & Plan: Pt seeing pcp today and has repeat BMP already ordered to have completed. DM peripheral angiopathy 05/20/2022 Last Assessment & Plan: Blood sugars in the 100s. No more lows since lowering novolin -continue novolin 70/30 25 am 10 pm, metformin 1000 mg BID Portal hypertension 05/20/2022 Last Assessment & Plan: Agreeable to see hepatology Aortic ectasia 05/20/2022 Last Assessment & Plan: Noted on CTA 05/08/22--2.6cm. Followed by vascular Adnexal cyst 05/20/2022 Last Assessment & Plan: Discussed findings, she is agreeable to follow up imaging. Anemia 05/20/2022 Last Assessment & Plan: Last hemoglobin 9.8 -patient not interested in iron infusions -believes that iron was causing diarrhea. She is now taking supplement every other day. Med rec change. Lung nodules 05/20/2022 Last Assessment & Plan: Finding discovered after telemedicine visit complete. Called Dgt Madelyn as pt reported she wanted to sleep after visit. Madelyn reports they were made aware of this finding. Recommendation is for repeat CT chest in 6 months. She will discuss with pt and let either [facility] or pcp know if she wishes to pursue repeat CT. Coronary artery disease invo lving [place] heart without angina pectoris 05/08/2022 Last Assessment & Plan: Denies any chest pain Continue asa and statin, also on metoprolol (HFpEF) heart failure with preserved ejection fr action 05/08/2022 Last Assessment & Plan: Heart Failure "RED FLAG" HF Symptoms: o Leg Swelling (Examples: "I can't wear certain socks or shoes", "My pants feel tight") Current Heart Failure Classifications: o With ordinary activity such as doing housework, yard work or shopping ([employer] [facility] [facility]) Medication Regimen: o Beta Kylie Therapy: Metoprolol Tartrate o YURI Inhibitor/ARB Therapy: Losartan o Diuretic therapy: Lasix o Diuretic Titration Protocol in place: No. o Last time DTP used: few months ago Will start DTP today. Double lasix x 3 days F/u BMP, BNP Start KCl 20 mEq daily Recheck in person in 3 days Ischemic colitis 05/08/2022 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 Last Assessment & Plan: Repeat CT scheduled for 05/27/22 Cerebrovascular disease, arteriosclerotic, post- stroke 02/02/2022 Last Assessment & Plan: Continue ASA, statin, plavix HTN, goal below 140/90 08/23/2021 Last Assessment & Plan: BP stable. -will discontinue amlodipine as it can worsen swelling in the legs. At this point, we will monitor blood pressure and make adjustments p.r.n.. -continue losartan 25 mg daily, metoprolol 25 mg twice daily Arteriosclerosis of thoracic aorta 02/01/2021 Type 2 diabetes mellitus wit h diabetic nephropathy, with long-term current use of insulin 09/10/2018 Last Assessment & Plan: Notes low BS this am and occasionally in the middle of the night. Again, pt reluctant to change evening dose of insulin. Encouraged discussion with PCP [id number] 6.5 01/22/22 Age-related osteoporosis wit hout current pathological fracture 09/11/2017 Last Assessment & Plan: Continues fosmax Gastroesophageal reflux disease without esophagi tis 09/11/2017 Last Assessment & Plan: Symptoms managed on pantoprazole 40 mg daily Type 2 diabetes mellitus wit h hemoglobin A1c goal of less than 8.0% 04/22/2013 Overview: ICD-10 update of inactive term Vitamin D deficiency 10/16/2012 Non-toxic multinodular goiter 10/16/2012 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 Dyslipidemia, goal LDL below 100 03/07/2011 Last Assessment & Plan: Continue atorvastatin Component Latest Ref Rng 03/07/2022 Triglycerides <=174 mg/dL 99 Cholesterol <200 mg/dL 120 HDL Cholesterol >49 mg/dL 42 (L) Non-HDL Cholesterol <=159 mg/dL 78 LDL Cholesterol <=129 mg/dL 58 (L) Low Hyperparathyroidism, primary 12/15/2009 Visual field loss, 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 documented as of this encounter (statuses as of 03/28/2023) Resolved Problems Problem Noted Date Diagnosed Date Resolved Date Aortic atherosclerosis 05/20/202207/14 Overview: duplicate Last Assessment & Plan: Continue atorvastatin, asa and plavix BP at goal. Acute diastolic heart failure 02/02/2022 03/14/2022 Last Assessment & Plan: -no echo scanned into epic. No mention of echo on d/c summary -appears euvolemic today -continue lasix 40 mg daiy -encouraged daily weights Pneumonia due to infectious organism 02/02/2022 03/14/2022 Last Assessment & Plan: Resolving -encouraged mucinex -tessalon pearles for cough Type 2 diabetes mellitus wit h hemoglobin A1c goal of 7.0%-8.0% 01/23/2013 04/22/2013 Overview: ICD-10 update of inactive term Dyslipidemia, goal to be determined 12/15/2009 03/07/2011 Type 2 diabetes mellitus wit h hemoglobin A1c goal of less than 7.0% 12/15/2009 01/23/2013 Overview: ICD-10 update of inactive term documented as of this encounter (statuses as of 03/28/2023) Immunizations Name Administration Dates Next Due COVID-19 mRNA, LNP-s, No Pre serve, 2-Dose Series ([place]) 03/10/2021,08/27/2020,08/06/2020 Pneumococcal Conjugate Vacc, 13 Valent (Prevnar) 06/04/2015 Pneumococcal Polysaccharide PPV23 (Pneumovax) 07/29/2008 SEASONAL INFLUENZA, PF, 6 M & Above, IM , (FLULAVAL or FLUZONE) 03/20/2019,03/13/2018,03/08/2017 Season Influenza, Quad, PF, Adjuvanted, 65+ Yrs, IM (FLUAD) 03/05/2020 Seasonal Influenza, Quadriva lent Hd (Fluzone Hd) 03/28/2023,03/14/2022,02/01/2021 Seasonal Influenza, Quadriva lent, No Preserve, IM 02/16/2016 02/15/2017 Seasonal Influenza, Split, I IV3, With Preserve, Inj 01/28/2015,02/07/2014,01/22/2013,01/14,03/07/2011,02/01/2010,06/10/19 10 TDAP (age 10 and older)(Boostrix) 06/05/2014 Varicella Zoster Vaccine (Adult) 06/04/2015 Zoster Vaccine Recombinant (Shingrix) 12/06/2022 ,09/16/2022 documented as of this encounter Social History Tobacco Use Types Packs/Day Years Used Date Smoking Tobacco: Former Cigarettes 3 48 Q uit: 07/23/2006 Smokeless Tobacco: Never Tobacco Cessation:Counseling Given: Not Answered Alcohol Use Standard Drinks/Week Comments Yes 0 (1 standard drink = 0.6 oz pur e alcohol) occasional PHQ-2 Answer Date Recorded PHQ Adult Total Score 0 03/14/2022 Hunger Vital Sign Answer Date Recorded Within the past 12 months, y ou worried that your food would run out before you got the money to buy more. Never true 08/12/19 23 Within the past 12 months, t he food you bought just didn't last and you didn't have money to get more. Never true 08/11/2022 Sex and Gender Information Value Date Recorded Sex Assigned at Female 08/11/2022 1:58 PM EDT Gender Identity Female 08/11/2022 1:58 PM EDT Sexual Orientation Straight 08/11/2022 1: 58 PM EDT Job Start Date Occupation Industry Not on file Not on file Not on file documented as of this encounter Last Filed Vital Signs Vital Sign Reading Time Taken Comments Blood Pressure 118/52 03/28/2023 1:18 PM EST Pulse 69 03/28/2023 1:18 PM EST Temperature 36.3 C (97.3 F) 03/28/2023 1:18 PM ES T Respiratory Rate 20 03/28/2023 1:18 PM EST Oxygen Saturation 98% 03/28/2023 1:18 PM EST Inhaled Oxygen Concentration - - Weight 71.3 kg (157 lb 3.2 oz) 03/28/2023 1:18 P M EST Height 160 cm (5' 3") 03/28/2023 1:18 PM EST Body Mass Index 27.85 03/28/2023 1:18 PM EST documented in this encounter Functional Status Functional Status Response Date of Assess ment Are you deaf or do you have serious difficulty h earing? No 05/08/2022 Are you blind or do you have serious difficulty seeing, even when wearing glasses? Yes 05/08/2022 Do you have serious difficul ty walking or climbing stairs? (5 years old or older) Yes 05/10/2022 Do you have difficulty dress ing or bathing? (5 years old or older) No 05/08/2022 Because of a physical, menta l, or emotional condition, do you have difficulty doing errands alone such as visiting a doctor s office or shopping? (15 years old or older) No 05/08/20 Cognitive Status Response Date of Assessm ent Because of a physical, menta l, or emotional condition, do you have serious difficulty concentrating, remembering, or making decisions? (5 years old or older) No 05/08/2022 documented as of this encounter Patient Instructions * Patient Instructions* Cammie Eddy LPN - 03/28/2023 1:33 PM EST ~~PATIENT INSTRUCTIONS FOR FLU SHOT~~ Possible side effects of influenza vaccine, (flu shot), are usually mild and include: 1. Soreness or redness at injection site 2. Low grade fever 3. Body aches You may use Tylenol/Acetaminophen as needed for these symptoms. LET YOUR DOCTOR KNOW IMMEDIATELY IF YOU HAVE DIFFICULTY BREATHING OR SWALLOWING, EXPERIENCE ITCHINGOF FEET OR HANDS, HAVE SWELLING OF EYES, FACE OR INSIDE OF NOSE. documented in this encounter Progress Notes * Alexy Al MD - 03/28/2023 1:48 PM EST Subjective: Martine Russell is a 82 year old female here today for Chief Complaint Patient presents with Status Check Return in 6 months Medication Administration Flu and/or Pneumo Inj Patient presents for routine six-month follow-up. Has been feeling reasonably well. No hospitalizations since early this year. She is tolerating her current medication. She had not come in for labs prior to this visit but does agree to having them drawn today. Agrees to the influenza vaccination. Is aware she can get the RSV vaccination and COVID booster at the pharmacy. Past Medical History: Diagnosis Date DM type 2, goal A1C below 8.0 04/22/2013 Past Surgical History: Procedure Laterality Date COLONOSCOPY, DIAGNOSTIC (RECTUM) N/A 08/26/2022 sigmoid diverticulosis/hemorrhagic, inflamed and ulcerated mucosa cecum/biopsies show colitis/Colonoscopy/[place] IR ARTERIOGRAM VISCERAL N/A 05/09/2022 IMAGING SUPERVISION & INTERPRETATION VISCERAL, SELECTIVE performed by Cedrick Phillips MD at [facility] OPEN BRACHIAL ARTERY EXPOSURE FOR ENDOVASCULAR PROSTHESIS, UNILAT N/A 05/09/2022 OPEN BRACHIAL ARTERY EXPOSURE FOR ENDOVASCULAR PROSTHESIS performed by Cedrick Phillips MD [place] [facility] [place] 1986 ovaries remain REMOVAL OF TONSILS, UNDER AGE 12 REMOVE CATARACT, INSERT LENS PROSTH Bilateral 2016 REMOVE GALLBLADDER STENT, COATED/COVERED, WITH DELIVERY SYSTEM 09/16/1994 Palmaz-Gamal balloon expandable [facility] MRI safe Review of patient's allergies indicates: No Known Allergies Current Outpatient Medications Medication Sig Dispense Refill CENTRUM SILVER PO TABS 1 TABLET DAILY 1 Tab 1 OSTEO BI-FLEX JOINT SHIELD PO TABS daily OTC 1 Tab 1 B Complex 100 TR Oral Tablet Extended Release Take by mouth . Biotin 1 MG Oral Capsule Take 1 Capsule by mouth in the morning and 1 Capsule at noon and 1 Capsulebefore bedtime. Taking once a daily. Acetaminophen 325 MG Oral Tablet (Tylenol) Take 2 Tablets by mouth as needed (for mild to moderate reaction (infusion reaction protocol)). 2 Tablet 11 EPINEPHrine (Anaphylaxis) 1 MG/ML Injection Solution Inject 0.3 mL into a large muscle as needed for Anaphylaxis (severe allergic reaction) (To be administered in the event of anaphylactic reaction per IS IV iron anaphylaxis protocol). May repeat every 15 min as needed per infusion reaction protocol 2 mL 11 Melatonin 10 MG Oral Tablet Take 1 Tablet by mouth at bedtime. Vitron-C 65-125 MG Oral Tablet (Iron-Vitamin C 65-125 mg per tab) Take 1 Tablet by mouth daily withdinner. 90 Tablet 1 Magnesium 400 MG Oral Capsule Take 1 Capsule by mouth in the morning. 90 Capsule 1 Magnesium Oxide -Mg Supplement 400 MG Oral Capsule TAKE ONE CAPSULE BY MOUTH EVERY MORNING 90 Capsule 1 Insulin Syringe-Needle U-100 30G X 5/16" 1 ML USE TO INJECT INSULIN TWICE DAILY 200 Each 1 Glucose Blood In Vitro Strip USE TO TEST BLOOD SUGAR TWICE DAILY 200 Strip 1 OneTouch Delica Plus [id number] USE TO TEST BLOOD SUGAR TWICE DAILY 400 Each 1 NovoLIN 70/30 (70-30) 100 UNIT/ML Subcutaneous Suspension INJECT 25 UNITS SUBCUTANEOUSLY BEFORE BREAKFAST AND INJECT 10 UNITS BEFORE SUPPER. 40 mL 1 Pantoprazole Sodium 40 MG Oral Tablet Delayed Release (Protonix) TAKE ONE TABLET BY MOUTH IN THE MORNING 100 Tablet 1 Losartan Potassium 25 MG Oral Tablet (Cozaar) TAKE ONE TABLET BY MOUTH IN THE MORNING 100 Tablet 1 metFORMIN HCl 1000 MG Oral Tablet (Glucophage) TAKE ONE TABLET BY MOUTH IN THE MORNING AND ONE TABLET BEFORE BEDTIME WITH FOOD. 200 Tablet 1 Furosemide 40 MG Oral Tablet (Lasix) Take 1.5 Tablets by mouth in the morning. 100 Tablet 1 Clopidogrel Bisulfate 75 MG Oral Tablet (pLAVix) Take 1 Tablet by mouth in the morning. 100 Tablet 3 Alendronate Sodium 70 MG Oral Tablet (Fosamax) TAKE ONE TABLET BY MOUTH ONCE A WEEK WITH 8OZ OF WATER 30 MINUTES BEFORE THE FIRST MEAL OF THE DAY. REMAIN UPRIGHT FOR 30 MINUTES AFTER TAKING TABLET 12Tablet 1 Atorvastatin Calcium 40 MG Oral Tablet (Lipitor) TAKE ONE TABLET BY MOUTH EVERY AFTERNOON 100 Tablet 3 OneTouch Verio w/Device Kit Use up to 4 times a day E11.9 E11.29 1 Kit 0 Cinacalcet HCl 30 MG Oral Tablet (Sensipar) TAKE ONE TABLET BY MOUTH IN THE MORNING. 100 Tablet 1 Metoprolol Tartrate 25 MG Oral Tablet (Lopressor) TAKE ONE-HALF TABLET BY MOUTH TWICE DAILY 100 Tablet 1 Sodium Chloride 0.9 % Intravenous Solution To be administered in the event of anaphylactic reactionper GHIS IV iron anaphylaxis protocol (Patient not taking: Reported on 09/22/2022) 1000 mL 11 Dexamethasone Sodium Phosphate 4 MG/ML Injection Solution (Decadron) Inject 8 mg intravenously as needed for Anaphylaxis (severe allergic reaction) (To be administered in the event of anaphylactic reaction per [facility]IS IV iron anaphylaxis protocol). (Patient not taking: Reported on 08/11/2022) 2 mL 11 OneTouch Delica Lancets 33G Test blood sugar twice daily E11.9 E11.29 400 Each 1 Zoster Vac Recomb Adjuvanted 50 MCG/0.5ML Intramuscular Suspension Reconstituted (Shingrix) Inject 0.5 mL into a large muscle now and repeat dose in 60 to 180 days (Patient not taking: Reported on 03/28/2023) 1 Each 1 No current facility-administered medications for this visit. Objective: BP 118/52 | Pulse 69 | Temp 36.3 C (97.3 F) (Temporal Artery) | Resp 20 | Ht 1.6 m (5' 3") | Wt 71.3 kg (157 lb 3.2 oz) | SpO2 98% | BMI 27.85 kg/m | BSA 1.78 m GEN: NAD HEENT: Benign NECK: Supple with no LAD, TM, JVD CHEST: CTA B CV: RRR ABD: Soft, NT/ND, No HSM, NABS EXT: No c,c,e Assessment and Plan: Type 2 diabetes mellitus with hemoglobin A1c goal of less than 7.0% ([facility]) (Primary) - HEMOGLOBIN A1C; Future; Expected date: 03/28/2023 - LDL CHOLESTEROL (DIRECT MEASURE); Future; Expected date: 03/28/2023 - ALBUMIN / CREATININE RATIO, URINE; Future; Expected date: 03/28/2023 Type 2 diabetes mellitus with diabetic nephropathy, with long-term current use of insulin ([facility]) -update labs today. Need for prophylactic vaccination and inoculation against influenza - INFLUENZA VACC, QUAD, HIGH DOSE (FLUZONE HD) Hyperparathyroidism, primary (HCC) -recheck labs HTN, goal below 140/90 -continue same meds Encounter for long-term (current) use of medications - CBC; Future; Expected date: 03/28/2023 Hypomagnesemia - MAGNESIUM; Future; Expected date: 03/28/2023 Hypertensive HF (heart failure) ([facility]) Chronic heart failure with preserved ejection fraction (HCC) -stable. No active symptoms. Follow Up: Return in about 6 months (around 09/26/2023) for recheck - same day as . | For: recheck - same day as 38 min with pt and documentation Alexy Al MD * Cammie Eddy LPN - 03/28/2023 1:32 PM EST PRE - ADMINISTRATION DOCUMENTATION Are you experiencing any cold symptoms or fever? No Have you had Guillain-Bessemer Syndrome (an illness that causes paralysis) within the last 6 weeks? No Have you had the flu shot in the past? YES Have you ever had a reaction to the flu shot? No Cammie Eddy LPN, 03/28/2023 1:32 PM Immunization Administration Documentation Time Out Procedure Performed: Yes Patient Identified (Ask Name/Date of ): Yes Does the patient have a fever greater than 101 degrees today? No Patient allergic to latex? No VFC Stock:no Immunization(s) verified: Yes, Immunization Name: Flu, VIS Sheet(s) given: Yes Verified Side and Site: Yes Verified Shot(s) with Parent(s)/Patient: Yes documented in this encounter Nursing Notes * Cammie Eddy LPN - 03/28/2023 1:18 PM EST The patient has been properly identified by confirmation of name and date of . Chief Complaint Patient presents with Status Check Return in 6 months documented in this encounter Plan of Treatment Upcoming Encounters Date Type Department Care Team (Late st Contact Info) Description 10/06/2023 10:40 AM EDT Office Visit [facility] [address] [place] [address] Alexy Al MD [address] [place] [address] Pending Results Name Type Priority Associated Diagnoses Date /Time HEMOGLOBIN A1C Lab Routine Type 2 diabetes mellitus with hemoglobin A1c goal of less than 7.0% (HCC) 03/28/2023 2:26 PM EST CBC Lab Routine Encounter for long-term (current) use of medications 03/28/2023 2:26 PM EST LDL CHOLESTEROL (DIRECT MEASURE) Lab Routine Type 2 diabetes mellitus with hemoglobin A1c goal of less than 7.0% (HCC) 03/28/2023 2:26 PM EST ALBUMIN / CREATININE RATIO, URINE Lab Routine Type 2 diabetes mellitus with hemoglobin A1c goal of less than 7.0% (HCC) 03/28/2023 2:32 PM EST MAGNESIUM Lab Routine Hypomagnesemia 03/28/2023 2:26 PM EST Scheduled Orders Name Type Priority Associated Diagnoses Orde r Schedule HEMOGLOBIN A1C Lab Routine Type 2 diabetes mellitus with hemoglobin A1c goal of less than 7.0% (HCC) Expected: 03/28/2023 (Approximate), Expires: 03/27/2024 CBC Lab Routine Encounter for long-term (current) use of medications Expected: 03/28/2023 (Approximate), Expires: 03/27/2024 LDL CHOLESTEROL (DIRECT MEASURE) Lab Routine Type 2 diabetes mellitus with hemoglobin A1c goal of less than 7.0% (HCC) Expected: 03/28/2023 (Approximate), Expires: 03/27/2024 ALBUMIN / CREATININE RATIO, URINE Lab Routine Type 2 diabetes mellitus with hemoglobin A1c goal of less than 7.0% (HCC) Expected: 03/28/2023 (Approximate), Expires: 03/27/2024 MAGNESIUM Lab Routine Hypomagnesemia Expected: 03/28/2023 (Approximate), Expires: 03/27/2024 Health Maintenance Due Date Last Done Comments Hepatitis B (1 of 3 - Risk 3-dose series) 2000 Diabetic Foot Exam 03/20/2020 03/20/2019, 1 , 09/05/2016, Additional history exists Albumin/Creatinine Ratio 08/18/2022 022, 10/29/2019, 03/07/2018, Additional history exists Diabetic Eye Exam 01/03/2023 01/03/2022, , 2019, Additional history exists COVID-19 Vaccine ( season) 2023 03/10/2021, 08/27/2020, 08/06/2020 Depression Screening 03/14/2023 03/14/2022 HbA1c 06/07/2023 12/05/2022, 08/14, 05/23/2022, Additional history exists B-12 07/04/2023 07/04/2022, 01/0 01/2023, 01/27/2021, Additional history exists GFR 12/06/2023 12/05/2022, 2 08/2022, 07/25/2022, Additional history exists DTaP,Tdap,and Td Vaccines (2 - Td or Tdap) 06/05/2024 06/05/2014 DXA Scan 11/28/2024 11/28/2022, 04/16, 12/07/2016, Additional history exists Pneumococcal Vaccine: 65+ Years Completed 06/04/2015, 07/29/2008 VITAMIN D LEVEL ONCE IN A LIFETIME-USE SMARTSET# [id number] Completed 01/27/2021, 08/21/2017, 03/08/2017, Additional history exists Zoster Vaccines Completed 12/06/2022, 05/0 09/2022, 06/04/2015 Influenza Vaccine (FLU shot) Completed , 03/14/2022, 02/01/2021, Additional history exists GARDASIL-HPV IMMUNIZATION SERIES Aged Out No longer eligible based on patient's age to complete this topic MENINGOCOCCAL (MENACTRA/MENVEO) Aged Out No longer eligible based on patient's age to complete this topic documented as of this encounter Medical Devices Implanted Type Area Asset Specialist Device Identifier Shelf Expiration Date Model / Serial / Lot Stent Graft [id number] - [id number] - [id number] Implanted:Qty: 1 on 05/09/2022 by Cedrick Phillips MD at [place] [facility] [place] MARTIN [id number] 02/11/2025 [id number] / [id number] / [id number] documented as of this encounter Visit Diagnoses Diagnosis Type 2 diabetes mellitus with hemoglobin A1c goal of less than 7.0% ([facility])- Primary Type 2 diabetes mellitus with diabetic nephropathy, with long-term current use of insulin (HCC) Need for prophylactic vaccination and inoculation against influenza Hyperparathyroidism, primary (HCC) Primary hyperparathyroidism HTN, goal below 140/90 Unspecified essential hypertension Encounter for long-term (current) use of medications Encounter for long-term (current) use of other medications Hypomagnesemia Disorders of magnesium metabolism Hypertensive HF (heart failure) (HCC) 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 Question Answer Comments Discussion of Advance Directives occurred with: Patient Care Teams Field Operations Supervisor Relationship Specialty Start Date End Date Alexy Al MD [address] [place] [address] PCP - General 07/29/08 documented as of this encounter
--- OUTSIDE RECORDS SUMMARY | 2023-04-24 19:56 | External Medical Summary | Summary of Care ---
Author Name Unknown Organization [facility] Address [address] [facility] [address] Phone [phone] Care Team Providers Care Designer Architect Name Role Phone Angelica Rodas MD Primary Care Provider [phone]- [phone] Reason for Visit * Reason Comments Medication Refill Encounter Details Date Type Department Care Team (Late st Contact Info) Description 04/18/2023 Refill [facility] [address] [place] [address] Crescencio Cota MD [address], [place] [id number] Chronic heart failure with preserved ejection fraction (HCC) Allergies No known active allergiesdocumented as of this encounter (statuses as of 04/18/2023) Medications Medication Sig Dispensed Refills Start Date End Date Status CENTRUM SILVER PO TABS 1 TABLET DAILY 1 Tab 1 0 Active OSTEO BI-FLEX JOINT SHIELD PO TABS daily OTC 1 Tab 1 0 Active B Complex 100 TR Oral Tablet [...] reaction (infusion reaction protocol)). 2 Tablet 11 3 Active Sodium Chloride 0.9 % Intravenous Solution To be administered in the event of anaphylactic reaction per [facility] IV iron anaphylaxis protocol 1000 mL 3 Active Additional Information Patient not taking.Reported on 09/22/2022 Dexamethasone Sodium Phosphate 4 MG/ML Injection Solution (Decadron) Inject 8 mg intravenously as needed for Anaphylaxis (severe allergic reaction) (To be administered in the event of anaphylactic reaction per [facility] IV iron anaphylaxis protocol). 2 mL 3 Active Additional Information Patient not taking.Reported on 08/11/2022 EPINEPHrine (Anaphylaxis) 1 MG/ML Injection Solution Inject 0.3 mL into a large muscle as needed for Anaphylaxis (severe allergic reaction) (To be administered in the event of anaphylactic reaction per [facility] IV iron anaphylaxis protocol). May repeat every 15 min as needed per infusion reaction protocol 2 mL 3 Active Melatonin 10 MG Oral Tablet Take 1 Tablet by mouth at bedtime. 0 Active Vitron-C 65-125 MG Oral Tablet (Iron-Vitamin C 65-125 mg per tab) Take 1 Tablet by mouth daily with dinner. 90 Tablet 3 Active OneTouch Delica Lancets 33G Test blood sugar twice daily E11.9 E11.29 400 Each 3 Active Zoster Vac Recomb Adjuvanted 50 MCG/0.5ML Intramuscular Suspension Reconstituted (Shingrix)Indicati ons:Need for vaccination for zoster Inject 0.5 mL into a large muscle now and repeat dose in 60 to 180 days 1 Each 3 Active Additional Information Patient not taking.Reported on 03/28/2023 Magnesium 400 MG Oral Capsule Take 1 Capsule by mouth in the morning. 90 Capsule 3 Active Magnesium Oxide -Mg Supplement 400 MG Oral Capsule TAKE ONE CAPSULE BY MOUTH EVERY MORNING 90 Capsule 3 10/11/19 24 Active Insulin Syringe-Needle U-100 30G X 5/16" 1 ML USE TO INJECT INSULIN TWICE DAILY 200 Each 3 08/31/19 24 Active Glucose Blood In Vitro Strip USE TO TEST BLOOD SUGAR TWICE DAILY 200 Strip 3 08/31/19 24 Active OneTouch Delica Plus [id number] USE TO TEST BLOOD SUGAR TWICE DAILY 400 Each 3 08/31/19 24 Active NovoLIN 70/30 (70-30) 100 UNIT/ML Subcutaneous SuspensionIndicati ons:Type 2 diabetes mellitus with hemoglobin A1c goal of less than 8.0% (HCC) INJECT 25 UNITS SUBCUTANEOUSLY BEFORE BREAKFAST AND INJECT 10 UNITS BEFORE SUPPER. 40 mL 1 3 08/31/19 24 Active Pantoprazole Sodium 40 MG Oral Tablet Delayed Release (Protonix) TAKE ONE TABLET BY MOUTH IN THE MORNING 100 Tablet 1 3 08/31/19 24 Active Losartan Potassium 25 MG Oral Tablet (Cozaar)Indication s:HTN, goal below 140/90 TAKE ONE TABLET BY MOUTH IN THE MORNING 100 Tablet 1 3 08/31/19 24 Active metFORMIN HCl 1000 MG Oral Tablet (Glucophage)Indica tions:Type 2 diabetes mellitus with hemoglobin A1c goal of less than 7.0% (HCC) TAKE ONE TABLET BY MOUTH IN THE MORNING AND ONE TABLET BEFORE BEDTIME WITH FOOD. 200 Tablet 1 3 08/31/19 24 Active Clopidogrel Bisulfate 75 MG Oral Tablet (pLAVix) Take 1 Tablet by mouth in the morning. 100 Tablet 3 3 Active Alendronate Sodium 70 MG Oral Tablet (Fosamax) TAKE ONE TABLET BY MOUTH ONCE A WEEK WITH 8OZ OF WATER 30 MINUTES BEFORE THE FIRST MEAL OF THE DAY. REMAIN UPRIGHT FOR 30 MINUTES AFTER TAKING TABLET 12 Tablet 1 3 02/16/20 24 Active Atorvastatin Calcium 40 MG Oral Tablet (Lipitor)Indicatio ns:Dyslipidemia, goal LDL below 100 TAKE ONE TABLET BY MOUTH EVERY AFTERNOON 100 Tablet 3 3 03/05/20 24 Active OneTouch Verio w/Device Kit Use up to 4 times a day E11.9 E11.29 1 Kit 0 3 Active Cinacalcet HCl 30 MG Oral Tablet (Sensipar)Indicati ons:Hyperparathyro idism, primary (HCC) TAKE ONE TABLET BY MOUTH IN THE MORNING. 100 Tablet 1 3 03/22/20 24 Active Metoprolol Tartrate 25 MG Oral Tablet (Lopressor) TAKE ONE-HALF TABLET BY MOUTH TWICE DAILY 100 Tablet 1 3 03/24/20 24 Active Furosemide 40 MG Oral Tablet (Lasix)Indications :Chronic heart failure with preserved ejection fraction (HCC) Take 1.5 Tablets by mouth in the morning. 135 Tablet 1 3 Active Furosemide 40 MG Oral Tablet (Lasix)Indications :Chronic heart failure with preserved ejection fraction (HCC) Take 1.5 Tablets by mouth in the morning. 100 Tablet 1 3 04/18/20 23 Discontinu ed(Refill) documented as of this encounter (statuses as of 04/18/2023) Active Problems Problem Noted Date Diagnosed Date [...] repeat CT. 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[place] heart without angina pectoris 05/08/2022 Last Assessment [...] as of this encounter (statuses as of 04/18/2023) Resolved Problems Problem Noted Date Diagnosed Date [...] as of this encounter (statuses as of 04/18/2023) Immunizations Name Administration Dates Next Due COVID-19 mRNA, LNP-s, No Pre serve, 2-Dose Series (Pfizer) 03/10/2021,08/27/2020,08/06/2020 Pneumococcal Conjugate Vacc, 13 Valent (Prevnar) [...] 48 Q uit: 07/23/2006 Smokeless Tobacco: Never Alcohol Use Standard Drinks/Week Comments Yes 0 (1 standard drink = 0.6 oz pur e alcohol) occasional PHQ-2 Answer Date Recorded PHQ Adult Total Score 0 03/14/2022 Hunger Vital Sign Answer Date Recorded Within the past 12 months, y ou worried that your food would run out before you got the money to buy more. Never true 09/27/19 23 Within the past 12 months, t he food you bought just didn't last and you didn't have money to get more. Never true 09/26/2022 Sex and Gender Information Value Date Recorded Sex Assigned at Female 08/11/2022 1:58 PM EDT Gender Identity Female 08/11/2022 1:58 PM EDT Sexual Orientation Straight 08/11/2022 1: 58 PM EDT Job Start Date Occupation Industry Not on file Not on file Not on file documented as of this encounter Functional Status Functional Status Response [...] (15 years old or older) No 05/08/20 22 Cognitive Status Response Date of Assessm ent Because of a physical, menta l, or emotional condition, do you have serious difficulty concentrating, remembering, or making decisions? (5 years old or older) No 05/08/2022 documented as of this encounter Miscellaneous Notes * Telephone Encounter - Fanny Chin RPh - 04/18/2023 1:42 PM ESTSigned Prescriptions: Disp Refills Furosemide 40 MG Oral Tablet (Lasix) 135 Ta*1 Sig: Take 1.5 Tablets by mouth in the morning.Authorizing Provider: ANGELICA RODAS User: FANNY CHIN----- documented in this encounter Plan of Treatment Upcoming Encounters Date Type Department Care Team (Late st Contact Info) Description 10/06/2023 10:40 AM EDT Office Visit [facility] [address] [facility] [place] [address] Angelica Rodas MD [address] [place] [facility] [place] [id number] Health Maintenance Due Date Last Done Comments Hepatitis B (1 of 3 - Risk 3-dose series) 2000 Diabetic Foot Exam 03/20/2020 03/20/2019, 1 , 09/05/2016, Additional history exists Diabetic Eye Exam 01/03/2023 01/03/2022, , 2019, Additional history exists COVID-19 Vaccine ( season) 2023 03/10/2021, 08/27/2020, 08/06/2020 Depression Screening 03/14/2023 03/14/2022 B-12 07/04/2023 07/04/2022, 0 01/2023, 01/27/2021, Additional history exists HbA1c 09/26/2023 03/28/2023, 11/13, 09/05/2022, Additional history exists GFR 12/06/2023 12/05/2022, 08/14, 07/25/2022, Additional history exists Albumin/Creatinine Ratio 03/28/2024 023, 08/18/2021, 10/29/2019, Additional history exists DTaP,Tdap,and Td Vaccines (2 - Td or Tdap) 06/05/2024 06/05/2014 DXA Scan 11/28/2024 11/28/2022, 1205/2018, 12/07/2016, Additional history exists Pneumococcal Vaccine: 65+ Years Completed 06/04/2015, 07/29/2008 VITAMIN D LEVEL ONCE IN A LIFETIME-USE SMARTSET# [id number] Completed 01/27/2021, 08/21/2017, 03/08/2017, Additional history exists [...] this encounter Medical Devices Implanted Type Area Punching Machine Operator Device Identifier Shelf Expiration Date Model / Serial / Lot Stent Graft [id number] - [id number] - [id number] Implanted:Qty: 1 on 05/09/2022 by Cedrick Phillips MD at [facility] [place] : MARTIN [id number] 02/11/2025 [id number] / [id number] / [id number] documented as of this encounter Visit Diagnoses Diagnosis Chronic heart failure with preserved ejection fraction (HCC) documented in this encounter Advance Directives Latest Code Status on File Code Status Date Activated Date Inactivated Comments No Code 05/08/2022 11:42 AM 05/11/2022 7:56 PM Th is order reflects the patients wishes and were consensually agreed upon. Question Answer Comments Discussion of Advance Directives occurred with: Patient Care Teams Designer Architect Relationship Specialty Start Date End Date Angelica Rodas MD [address] [place] [address] PCP - General 07/29/08 documented as of this encounter
--- OUTSIDE RECORDS SUMMARY | 2023-04-24 19:56 | External Medical Summary | Summary of Care ---
Author Name Unknown Organization [facility] Address [address] [facility] [place] [address] Phone [phone] Care Team Providers Care Non Profit Director Name Role Phone Angelica Rodas MD Primary Care Provider [phone]- [phone] Reason for Visit * Reason Comments Medication Refill Encounter Details Date Type Department Care Team (Late st Contact Info) Description 03/25/2023 Refill [facility] [address] [place] [address] Angelica Rodas MD [address] [place] [address] Allergies No known active allergiesdocumented as of this encounter (statuses as of 03/25/2023) Medications Medication Sig Dispensed Refills Start Date [...] moderate reaction (infusion reaction protocol)). 2 Tablet 3 Active Sodium Chloride 0.9 % Intravenous [...] reaction per IS IV iron anaphylaxis protocol). 2 mL 3 [...] mouth daily with dinner. 90 Tablet 1 3 Active OneTouch Delica Lancets 33G Test blood sugar twice daily E11.9 E11.29 400 Each 3 Active Zoster Vac Recomb Adjuvanted 50 MCG/0.5ML Intramuscular Suspension Reconstituted (Shingrix)Indicati ons:Need for vaccination for zoster Inject 0.5 mL into a large muscle now and repeat dose in 60 to 180 days 1 Each 3 Active Magnesium 400 MG Oral Capsule Take 1 Capsule by mouth in the morning. 90 Capsule 1 3 Active Magnesium Oxide -Mg Supplement 400 MG Oral Capsule TAKE ONE CAPSULE BY MOUTH EVERY MORNING 90 Capsule 3 10/11/19 24 Active Insulin Syringe-Needle U-100 30G X 516" 1 ML USE TO INJECT INSULIN TWICE DAILY 200 Each 1 3 08/31/19 24 Active Glucose Blood In Vitro Strip USE TO TEST BLOOD SUGAR TWICE DAILY 200 Strip 3 08/31/19 24 Active OneTouch Delica Plus [id number] USE TO TEST BLOOD SUGAR TWICE DAILY 400 Each 1 3 08/31/19 24 Active NovoLIN 70/30 (70-30) [...] 200 Tablet 1 3 08/31/19 24 Active Furosemide 40 MG Oral Tablet (Lasix)Indications :Chronic heart failure with preserved ejection fraction (HCC) Take 1.5 Tablets by mouth in the morning. 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 Coronary artery disease invo lving [place] heart without angina pectoris 05/08/2022 Last Assessment [...] as of this encounter (statuses as of 03/25/2023) Resolved Problems Problem Noted Date Diagnosed Date [...] as of this encounter (statuses as of 03/25/2023) Immunizations Name Administration Dates Next Due COVID-19 mRNA, LNP-s, No Pre serve, 2-Dose Series (Pfizer) 03/10/2021,08/27/2020,08/06/2020 Pneumococcal Conjugate Vacc, 13 Valent (Prevnar) 06/04/2015 Pneumococcal Polysaccharide PPV23 (Pneumovax) 07/29/2008 SEASONAL INFLUENZA, PF, 6 M & Above, IM , (FLULAVAL or FLUZONE) 03/20/2019,03/13/2018,03/08/2017 Season Influenza, Quad, PF, Adjuvanted, 65+ Yrs, IM (FLUAD) 03/05/2020 Seasonal Influenza, Quadriva lent Hd (Fluzone Hd) 03/14/2022,02/01/2021 Seasonal Influenza, Quadriva lent, No Preserve, IM 02/16/2016 02/15/2017 Seasonal Influenza, Split, I IV3, With Preserve, Inj 01/28/2015,02/07/2014,01/22/2013,01/14,03/07/2011,02/01/2010,06/10/19 10 TDAP (age 10 and older)(Boostrix) 06/05/2014 Varicella Zoster Vaccine (Adult) 06/04/2015 documented as of this encounter Social History [...] or making decisions? (5 years old or older No 05/08/2022 documented as of this encounter Miscellaneous Notes * Telephone Encounter - Miller Markham RPh - 03/25/2023 5:43 PM ESTSigned Prescriptions: Disp Refills Metoprolol Tartrate 25 MG Oral Tablet (Lop*100 Ta*1 Sig: TAKE ONE-HALF TABLET BY MOUTH TWICE DAILYAuthorizing Provider: ANGELICA RODAS User: MILLER MARKHAM documented in this encounter Plan of Treatment Upcoming Encounters Date Type Department Care Team (Late st Contact Info) Description 03/28/2023 2:40 PM EST [facility] [place] [address] [facility] [place] [phone] [facility]as [facility] [address] [facility] [address] Health Maintenance Due Date Last Done Comments Hepatitis B (1 of 3 - Risk 3-dose series) 2000 Zoster Vaccines (2 of 3) 07/30/2015 06/04/2015 Diabetic Foot Exam 03/20/2020 03/20/2019, 1 , 09/05/2016, Additional history exists Albumin/Creatinine Ratio 08/18/2022 022, 10/29/2019, 03/07/2018, Additional history exists Diabetic Eye Exam 01/03/2023 01/03/2022, , 2019, Additional history exists COVID-19 Vaccine ( season) 2023 03/10/2021, 08/27/2020, 08/06/2020 Influenza Vaccine (FLU shot) (#1) 2023 03/14/2022, 02/01/2021, 03/05/2020, Additional history exists Depression Screening 03/14/2023 03/14/2022 HbA1c 06/07/2023 12/05/2022, 08/14, 05/23/2022, Additional history exists B-12 07/04/2023 07/04/2022, 01/0 01/2023, 01/27/2021, Additional history exists GFR 12/06/2023 12/05/2022, 08/14, 07/25/2022, Additional history exists DTaP,Tdap,and Td Vaccines (2 - Td or Tdap) 06/05/2024 06/05/2014 DXA Scan 11/28/2024 11/28/2022, 12/05/2018, 12/07/2016, Additional history exists Pneumococcal Vaccine: 65+ Years Completed 06/04/2015, 07/29/2008 VITAMIN D LEVEL ONCE IN A LIFETIME-USE SMARTSET# [id number] Completed 01/27/2021, 08/21/2017, 03/08/2017, Additional history exists GARDASIL-HPV IMMUNIZATION SERIES Aged Out No longer eligible based on patient's age to complete this topic MENINGOCOCCAL (MENACTRA/MENVEO) Aged Out No longer eligible based on patient's age to complete this topic documented as of this encounter Medical Devices Implanted Type Area Casting Trucker Device Identifier Shelf Expiration Date Model / Serial / Lot Stent Graft [id number] - [id number] - [id number] Implanted:Qty: 1 on 05/09/2022 by Cedrick Phillips MD at [facility] [place] : [place] [id number] 02/11/2025 [id number] / [id number] / [id number] documented as of this encounter Advance Directives Latest Code Status on File Code Status Date Activated Date Inactivated Comments No Code 05/08/2022 11:42 AM 05/11/2022 7:56 PM Th is order reflects the patients wishes and were consensually agreed upon. Question Answer Comments Discussion of Advance Directives occurred with: Patient Care Teams Non Profit Director Relationship Specialty Start Date End Date Angelica Rodas MD [address] [place] [address] PCP - General 07/29/08 documented as of this encounter
--- OUTSIDE RECORDS SUMMARY | 2023-04-24 19:56 | External Medical Summary ---
Author Name Unknown Address Unknown Organization [id number]:[facility] - [address] [place] [address] Laboratory Report Ordering Provider Test Date Status CLARK DOMINGUEZ 03/28/2023 14:26:59 Final Observation Date Value Abnormality Reference (Units ) Status Magnesium 03/28/2023 14:26:59 1.7 1.5-2.6 (m g/dL) Final Performing Location [facility] - [address] [place] [address]
--- OUTSIDE RECORDS SUMMARY | 2023-04-24 19:56 | External Medical Summary ---
Author Name Unknown Address Unknown Organization [id number][facility] [place] [address] [place] [address] Laboratory Report Ordering Provider Test Date Status CLARK DOMINGUEZ 03/28/2023 14:32:10 Final Normal: <30 mg/g creatinine< br/>High: 30-300 mg/g creatinine
Very High: >300 mg/g creatinine
Nephrotic: >2200 mg/g creatinine Observation Date Value Abnormality Reference (Units ) Status Albumin, Urine 03/28/2023 14:32:10 <1.20 (mg/dL) Final Creatinine, Urine 03/28/2023 14:32:10 45 (mg/dL) Final Albumin/Creatinine [Mass Ratio] in Urine 03/28/2023 14:32:10 <27 <30 (mg/g Creat) Final Performing Location [facility] [place] [address] [place] [address]
--- OUTSIDE RECORDS SUMMARY | 2023-04-24 19:56 | External Medical Summary | Summary of Care ---
Author Name Unknown Organization [facility] Address [address] [facility] [place] [address] Phone [phone] Care Team Providers Care Printer Slotter Helper Name Role Phone Angelica Rodas MD Primary Care Provider +1- [phone] Reason for Visit * Reason Comments Medication Refill Encounter Details Date Type Department Care Team (Late st Contact Info) Description 03/23/2023 Refill [facility] [address] [place] [address] Angelica Rodas MD [address] [place] [address] Hyperparathyroidism, Primary Allergies No known active allergiesdocumented as of this encounter (statuses as of 03/23/2023) Medications Medication Sig Dispensed Refills Start Date [...] 3 08/31/19 24 Active OneTouch Delica Plus [id number] USE TO TEST BLOOD SUGAR TWICE DAILY 400 Each 1 3 08/31/19 24 Active NovoLIN 70/30 (70-30) 100 UNIT/ML Subcutaneous SuspensionIndicati ons:Type 2 diabetes mellitus with hemoglobin A1c goal of less than 8.0% ([facility]) INJECT 25 UNITS SUBCUTANEOUSLY BEFORE BREAKFAST AND INJECT 10 UNITS BEFORE SUPPER. 40 mL 1 3 08/31/19 24 Active Metoprolol Tartrate 25 MG Oral Tablet (Lopressor) TAKE ONE-HALF TABLET BY MOUTH TWICE DAILY 100 Tablet 1 3 08/31/19 24 Active Pantoprazole Sodium [...] 100 Tablet 1 3 03/22/20 24 Active Cinacalcet HCl 30 MG Oral Tablet (Sensipar)Indicati ons:Hyperparathyro idism, primary (HCC) TAKE ONE TABLET BY MOUTH IN THE MORNING. 100 Tablet 1 3 03/23/20 23 Discontinu ed(Refill) documented as of this encounter (statuses as of 03/23/2023) Active Problems Problem Noted Date Diagnosed Date [...] repeat CT. Coronary artery disease invo lving [place] heart without angina pectoris 05/08/2022 Last Assessment [...] as of this encounter (statuses as of 03/23/2023) Resolved Problems Problem Noted Date Diagnosed Date [...] as of this encounter (statuses as of 03/23/2023) Immunizations Name Administration Dates Next Due COVID-19 [...] encounter Miscellaneous Notes * Telephone Encounter - Angelica Rodas MD - 03/23/2023 3:11 PM ESTSigned Prescriptions: Disp Refills Cinacalcet HCl 30 MG Oral Tablet (Sensipar)100 Ta*1 Sig: TAKE ONE TABLET BY MOUTH IN THE MORNING. Authorizing Provider: ANGELICA RODAS * Telephone Encounter - Leonela Carrasquillo [facility] - 03/23/2023 2:15 PM EST Pending Prescriptions: Disp Refills Cinacalcet HCl 30 MG Oral Tablet (Sensipar)100 Ta*1 Sig: TAKE ONE TABLET BY MOUTH IN THE MORNING. Electronically signed by Leonela Carrasquillo [facility] at 03/23/2023 2:15 PM EST * Telephone Encounter - Leonela Carrasquillo [facility] - 03/23/2023 2:14 PM EST Pending Prescriptions: Disp Refills Cinacalcet HCl 30 MG Oral Tablet (Sensipar)100 Ta*1 Sig: TAKE ONE TABLET BY MOUTH IN THE MORNING. 11/30/2022 (in office), 10/28/2019 (telemedicine) 03/28/2023 If no future appointments scheduled, and last appointment is greater than a year ago, please schedule patient for a follow-up appointment Last date the medication was ordered: 08/31/22 Pharmacy: [facility] Is this request for a controlled substance?No Urine Drug Screen:No results found. However, due to the size of the patient record, not all encounters were searched. Please check Results Review for a complete set of results. Patient Phone Numbers Labs: Lab Results Component Value Date/Time CREAT 0.9 12/05/2022 08:17 AM CREAT 0.6 03/05/2020 02:53 PM POTASSIUM 4.3 12/05/2022 08:17 AM POTASSIUM 4.4 05/09/2022 09:10 AM POTASSIUM 4.1 03/05/2020 02:53 PM TSH 1.79 04/14/2017 12:34 PM LDLCALC 58 03/07/2022 10:09 AM LDLCALC 52 10/22/2019 09:46 AM LDLDIRECT NOT APPLICABLE 10/22/2019 09:46 AM LDLDIRECT 94 01/03/2014 10:10 AM ALT 27 12/05/2022 08:17 AM ALT 39 (H) 03/05/2020 02:53 PM HGBA1C 7.4 (H) 12/05/2022 08:17 AM HGBA1C 8.1 (H) 03/05/2020 02:53 PM Electronically signed by Leonela Carrasquillo [facility] at 03/23/2023 2:15 PM EST documented in this encounter Plan of Treatment Upcoming Encounters Date Type Department Care Team (Late st Contact Info) Description 03/28/2023 2:40 PM EST Office Visit [facility] [address] [place] [place] [address] Angelica Rodas MD [address] [phone] Health Maintenance Due Date Last Done Comments [...] Depression Screening 03/14/2023 03/14/2022 HbA1c 06/07/2023 12/05/2022, 2 08/2022, 05/23/2022, Additional history exists B-12 07/04/2023 07/04/2022, 010 01/2023, 01/27/2021, Additional history exists GFR 12/06/2023 12/05/2022, 2 08/2022, 07/25/2022, Additional history exists DTaP,Tdap,and Td Vaccines (2 - Td or Tdap) 06/05/2024 06/05/2014 DXA Scan 11/28/2024 11/28/2022, 12/05/2018, 12/07/2016, Additional history exists Pneumococcal Vaccine: 65+ Years Completed 06/04/2015, 07/29/2008 VITAMIN D LEVEL ONCE IN A LIFETIME-USE SMARTSET# [id number] Completed 01/27/2021, 08/21/2017, 03/08/2017, Additional history exists GARDASIL-HPV IMMUNIZATION SERIES Aged Out No longer eligible based on patient's age to complete this topic MENINGOCOCCAL (MENACTRA/MENVEO) Aged Out No longer eligible based on patient's age to complete this topic documented as of this encounter Medical Devices Implanted Type Area Regulatory Coordinator Device Identifier Shelf Expiration Date Model / Serial / Lot Stent Graft [id number] - [id number] - [id number] Implanted:Qty: 1 on 05/09/2022 by Cedrick Phillips MD at [facility] [employer] : MARTIN [id number] 02/11/2025 [id number] / [id number] / [id number] documented as of this encounter Visit Diagnoses Diagnosis Hyperparathyroidism, Primary Primary hyperparathyroidism documented in this encounter Advance Directives Latest Code Status on File Code Status Date Activated Date Inactivated Comments No Code 05/08/2022 11:42 AM 05/11/2022 7:56 PM Th is order reflects the patients wishes and were consensually agreed upon. Question Answer Comments Discussion of Advance Directives occurred with: Patient Care Teams Printer Slotter Helper Relationship Specialty Start Date End Date Angelica Rodas MD [address] [place] [address] PCP - General 07/29/08 documented as of this encounter
--- OUTSIDE RECORDS SUMMARY | 2023-04-24 19:56 | External Medical Summary ---
Author Name Unknown Address Unknown Organization K01:LABORATORY [facility] [place] - [address] [place] [address] Laboratory Report Ordering Provider Test Date Status CLARK DOMINGUEZ 03/28/2023 14:26:59 Final Observation Date Value Abnormality Reference (Units ) Status LDL, (direct) 03/28/2023 14:26:59 35 <=129 (mg/dL) Final LDL Cholesterol Reference Ra nges (mg/dL):
<70 Target level for high risk ASCVD patient
<100 Optimal for general population
100-129 Near optimal for general population
130-159 Borderline high
160-189 High
>=190 Very high Performing Location LABORATORY [facility] - [address] [place] [address]
--- OUTSIDE RECORDS SUMMARY | 2023-04-24 19:56 | External Medical Summary | Summary of Care ---
Author Name Unknown Organization [facility] Address [address] [facility] [place] [address] Phone [phone] Care Team Providers Care Geological Technician Name Role Phone Alexy Al MD Primary Care Provider +1- [phone] Reason for Visit * Reason Comments Outpatient Testing Encounter Details Date Type Department Care Team (Late st Contact Info) Description 03/28/2023 3:20 PM EST Laboratory [facility] [place] [address] [place] [address] [place] [address] [place] [address] [employer] Other*[id number]; Type 2 diabetes mellitus with hemoglobin A1c goal of less than 7.0% ([facility]); Encounter for long-term (current) use of medications; Hypomagnesemia Allergies No known active allergiesdocumented as of [...] dinner. 90 Tablet 1 06/10/2022 Active OneTouch Delica Lancets 33G Test blood sugar twice daily E11.9 E11.29 400 Each 1 08/31/2022 Active Zoster Vac Recomb Adjuvanted 50 MCG/0.5ML Intramuscular Suspension Reconstituted (Shingrix)Indicatio ns:Need for vaccination for zoster Inject 0.5 mL into a large muscle now and repeat dose in 60 to 180 days 1 Each 1 09/16/2022 Active Additional Information Patient not taking.Reported [...] 1 08/31/2022 4 Active OneTouch Delica Plus [id number] USE TO TEST BLOOD SUGAR TWICE DAILY [...] MOUTH TWICE DAILY 100 Tablet 1 03/25/2023 Active documented as of this encounter (statuses [...] repeat CT. Coronary artery disease invo lving [place] heart without angina pectoris 05/08/2022 Last Assessment [...] Assessment & Plan: -no echo scanned into [employer]. No mention of echo on d/c summary [...] No 05/08/2022 documented as of this encounter Plan of Treatment Upcoming Encounters Date Type Department Care Team (Late st Contact Info) Description 10/06/2023 10:40 AM EDT Office Visit [facility] [address] [place] [id number] Alexy Al MD [address] [place] [address] Pending Results Name Type Priority Associated Diagnoses Date /Time MYCODE SUBSEQUENT ADULT Lab Routine [employer] Other*[id number] 03/28/2023 2:26 PM EST HEMOGLOBIN A1C Lab Routine Type 2 diabetes mellitus with hemoglobin A1c goal of less than 7.0% (HCC) 03/28/2023 2:26 PM EST CBC Lab Routine Encounter for long-term (current) use of medications 03/28/2023 2:26 PM EST LDL CHOLESTEROL (DIRECT MEASURE) Lab Routine Type 2 diabetes mellitus with hemoglobin A1c goal of less than 7.0% ([facility]) 03/28/2023 2:26 PM EST MAGNESIUM Lab Routine Hypomagnesemia 03/28/2023 2:26 PM EST MYCODE SST1 Lab Routine [employer] Other*[id number] 03/28/2023 2:26 PM EST MYCODE SST2 Lab Routine [employer] Other*[id number] 03/28/2023 2:26 PM EST ALBUMIN / CREATININE RATIO, URINE Lab Routine Type 2 diabetes mellitus with hemoglobin A1c goal of less than 7.0% ([facility]) 03/28/2023 2:32 PM EST Health Maintenance Due Date Last Done Comments [...] Tdap) 06/05/2024 06/05/2014 DXA Scan 11/28/2024 11/28/2022, 12/3 05/2018, 12/07/2016, Additional history exists Pneumococcal Vaccine: 65+ Years Completed 06/04/2015, 07/29/2008 VITAMIN D LEVEL ONCE IN A LIFETIME-USE SMARTSET# [id number] Completed 01/27/2021, 08/21/2017, 03/08/2017, Additional history exists Influenza Vaccine (FLU shot) Completed , 03/14/2022, 02/01/2021, Additional history exists GARDASIL-HPV IMMUNIZATION SERIES Aged Out No longer eligible based on patient's age to complete this topic MENINGOCOCCAL (MENACTRA/MENVEO) Aged Out No longer eligible based on patient's age to complete this topic documented as of this encounter Medical Devices Implanted Type Area Heater Helper Forge Device Identifier Shelf Expiration Date Model / Serial / Lot Stent Graft [id number] - [id number] - [id number] Implanted:Qty: 1 on 05/09/2022 by Cedrick Phillips MD at OR [facility] GET[place] : MARTIN [id number] 02/11/2025 [id number] 3 / [id number] / [id number] documented as of this encounter Visit Diagnoses Diagnosis [employer] Other*[id number] Type 2 diabetes mellitus with hemoglobin A1c goal of less than 7.0% ([facility]) Encounter for long-term (current) use of medications Encounter for long-term (current) use of other medications Hypomagnesemia Disorders of magnesium metabolism documented in this encounter Advance Directives Latest Code Status on File Code Status Date Activated Date Inactivated Comments No Code 05/08/2022 11:42 AM 05/11/2022 7:56 PM Th is order reflects the patients wishes and were consensually agreed upon. Question Answer Comments Discussion of Advance Directives occurred with: Patient Care Teams Geological Technician Relationship Specialty Start Date End Date Alexy Al MD [address] [place] [address] PCP - General 07/29/08 documented as of this encounter
--- OUTSIDE RECORDS SUMMARY | 2023-04-24 19:56 | External Medical Summary ---
Author Name Unknown Address Unknown Organization K01:LABORATORY [facility] [place] - [facility] [address] [facility] [address] [facility] [address] Laboratory Report Ordering Provider Test Date Status CLARK DOMINGUEZ 03/28/2023 14:26:59 Final Observation Date Value Abnormality Reference (Units ) Status HbA1C 03/28/2023 14:26:59 7.6 Above high normal 4. 0-5.6 (%) Final The use of HbA1c to monitor glycemic status is based on normal hemoglobin and HbA composition. This test should not be used in patients with abnormal hemoglobin that affects the half life of the red blood cell or the in vivo glycation rates. Glucose, estimated average 03/28/2023 14:26:59 171 Above high normal <126 (mg/dL) Jose Daniel arriola Performing Location LABORATORY [facility] - [address] [facility] [address]
--- OUTSIDE RECORDS SUMMARY | 2023-04-24 19:56 | External Medical Summary ---
Author Name Unknown Address Unknown Organization K01:[facility] [place] [facility] [address] [facility] [address] Laboratory Report Ordering Provider Test Date Status CAROLYN DOMINGUEZCASSANDRA 03/28/2023 14:26:59 Final Observation Date Value Abnormality Reference (Units ) Status WBC, Total 03/28/2023 14:26:59 5.57 4.00-10.80 (K/uL) Final RBC 03/28/2023 14:26:59 4.06 3.85-5.15 (M/uL) Final Hemoglobin 03/28/2023 14:26:59 10.1 Below low normal 12.0-15.3 (g/dL) Final HCT 03/28/2023 14:26:59 33.5 Below low normal 36.0-45.2 (%) Final MCV 03/28/2023 14:26:59 82.5 81.5-97.5 (fL) Final MCH 03/28/2023 14:26:59 24.9 27.0-34.0 (pg) Final MCHC 03/28/2023 14:26:59 30.1 32.0-36.0 (g/dL) Final RDW 03/28/2023 14:26:59 20.0 11.5-15.5 (%) Final Platelets 03/28/2023 14:26:59 154 140-400 (K/uL) Final MPV 03/28/2023 14:26:59 11.5 6.6-11.1 (fL) Final Nucleated erythrocytes/100 leukocytes [Ratio] in Blood by Automated count 03/28/2023 14:26:59 0 <=0 (/100 WBCs) Final Performing Location LAB[facility] [place] [facility] [address] [facility] [address]
--- OUTSIDE RECORDS SUMMARY | 2023-04-24 19:56 | External Medical Summary | Summary of Care ---
Author Name Unknown Organization [facility] Address [address] [facility] [place] [address] Phone [phone] Care Team Providers Care Director Hair Name Role Phone Angelica Rodas MD Primary Care Provider +1- [phone] Reason for Visit * Reason Comments Medication Refill Encounter Details Date Type Department Care Team (Late st Contact Info) Description 03/04/2023 Refill [facility] [address] [place] [address] Roger Tavares PA-C [address] [place] [address] Dyslipidemia, goal LDL below 100 Allergies No known active allergiesdocumented as of this encounter (statuses as of 03/06/2023) Medications Medication Sig Dispensed Refills Start Date [...] 3 08/31/19 24 Active OneTouch Delica Plus Smuxud66R USE TO TEST BLOOD SUGAR TWICE DAILY 400 Each 1 3 08/31/19 24 Active NovoLIN 70/30 (70-30) 100 UNIT/ML Subcutaneous SuspensionIndicati ons:Type 2 diabetes mellitus with hemoglobin A1c goal of less than 8.0% (HCC) INJECT 25 UNITS SUBCUTANEOUSLY BEFORE BREAKFAST AND INJECT 10 UNITS BEFORE SUPPER. 40 mL 1 3 08/31/19 24 Active Cinacalcet HCl 30 MG Oral Tablet (Sensipar)Indicati ons:Hyperparathyro idism, primary (HCC) TAKE ONE TABLET BY MOUTH IN THE MORNING. 100 Tablet 1 3 08/31/19 24 Active Metoprolol Tartrate [...] 100 Tablet 3 3 03/05/20 24 Active Atorvastatin Calcium 40 MG Oral Tablet (Lipitor)Indicatio ns:Dyslipidemia, goal LDL below 100 TAKE ONE TABLET BY MOUTH EVERY AFTERNOON 100 Tablet 1 3 03/04/20 23 Discontinu ed(Refill) documented as of this encounter (statuses as of 03/06/2023) Active Problems Problem Noted Date Diagnosed Date [...] repeat CT. Coronary artery disease invo lving [place] heart without angina pectoris 05/08/2022 Last Assessment [...] as of this encounter (statuses as of 03/06/2023) Resolved Problems Problem Noted Date Diagnosed Date [...] as of this encounter (statuses as of 03/06/2023) Immunizations Name Administration Dates Next Due COVID-19 [...] Telephone Encounter - Angelica Rodas MD - 03/06/2023 7:24 PM EDTSigned Prescriptions: Disp Refills Atorvastatin Calcium 40 MG Oral Tablet (Li*100 Ta*3 Sig: TAKE ONE TABLET BY MOUTH EVERY AFTERNOON Authorizing Provider: ANGELICA RODAS * Telephone Encounter - Caro Dawson LPN - 03/06/2023 5:05 PM EDTPending Prescriptions: Disp Refills Atorvastatin Calcium 40 MG Oral Tablet (Li*100 Ta*1 Sig: TAKE ONE TABLET BY MOUTH EVERY AFTERNOON * Telephone Encounter - Maryjo [facility] - 03/06/2023 8:29 AM EDTPending Prescriptions: Disp Refills Atorvastatin Calcium 40 MG Oral Tablet (Li*100 Ta*1 Sig: TAKE ONE TABLET BY MOUTH EVERY AFTERNOON documented in this encounter Plan of Treatment Upcoming Encounters Date Type Department Care Team (Late st Contact Info) Description 03/28/2023 2:40 PM EST Office Visit [facility] [address] [place] [address] Angelica Rodas MD [address] [place] [address] Health Maintenance Due Date Last Done Comments Hepatitis B (1 of 3 - Risk 3-dose series) 2000 Zoster Vaccines (2 of 3) 07/30/2015 06/04/2015 Diabetic Foot Exam 03/20/2020 03/20/2019, 1 , 09/05/2016, Additional history exists Albumin/Creatinine Ratio 08/18/20222 022, 10/29/2019, 03/07/2018, Additional history exists DIABETES-EYE EXAM 01/03/2023 01/03/2022, , 2019, Additional history exists [...] D LEVEL ONCE IN A LIFETIME-USE SMARTSET# [id number] Completed 01/27/2021, 08/21/2017, 03/08/2017, Additional history exists GARDASIL-HPV IMMUNIZATION SERIES Aged Out No longer eligible based on patient's age to complete this topic MENINGOCOCCAL (MENACTRA/MENVEO) Aged Out No longer eligible based on patient's age to complete this topic documented as of this encounter Medical Devices Implanted Type Area Senior Planning Manager Device Identifier Shelf Expiration Date Model / Serial / Lot Stent Graft [id number] - [id number] - [id number] Implanted:Qty: 1 on 05/09/2022 by Cedrick Phillips MD at OR [facility] [employer] : MARTIN [id number] 02/11/2025 [id number] 3 / [id number] / [id number] documented as of this encounter Visit Diagnoses Diagnosis Dyslipidemia, goal LDL below 100 Other and unspecified hyperlipidemia documented in this encounter Advance Directives Latest Code Status on File Code Status Date Activated Date Inactivated Comments No Code 05/08/2022 11:42 AM 05/11/2022 7:56 PM Th is order reflects the patients wishes and were consensually agreed upon. Question Answer Comments Discussion of Advance Directives occurred with: Patient Care Teams Director Hair Relationship Specialty Start Date End Date Angelica Rodas MD [address] [facility] [place] [phone] PCP - General 07/29/08 documented as of this encounter
--- OUTSIDE RECORDS SUMMARY | 2023-04-24 19:56 | External Medical Summary | Summary of Care ---
Author Name Unknown Organization [facility] Address [address] [place] [facility] [place] [address] Phone [phone] Care Team Providers Care Oracle Technical Architect Name Role Phone Alexy Al MD Primary Care Provider +1- [phone] Reason for Visit * Reason Onset Date Comments Follow Up 03/28/2023 Encounter Details Date Type Department Care Team (Late st Contact Info) Description 03/28/2023 Telephone [facility] [address] [place] [address] Alexy Al MD [address] [place] [address] Follow Up Allergies No known active allergiesdocumented as of [...] reaction (infusion reaction protocol)). 2 Tablet 11 05/25/2022 Active Sodium Chloride 0.9 % Intravenous [...] BY MOUTH EVERY MORNING 90 Capsule 1 10/11/2022 4 Active Insulin Syringe-Needle U-100 30G X 5/16" 1 ML USE TO INJECT INSULIN TWICE DAILY 200 Each 1 08/31/2022 4 Active Glucose Blood In Vitro Strip USE TO TEST BLOOD SUGAR TWICE DAILY 200 Strip 1 08/31/2022 4 Active OneTouch Delica Plus [id number] USE TO TEST BLOOD SUGAR TWICE DAILY [...] repeat CT. Coronary artery disease invo lving [place] heart without angina pectoris 05/08/2022 Last Assessment [...] mRNA, LNP-s, No Pre serve, 2-Dose Series ([employer]) 03/10/2021,08/27/2020,08/06/2020 Pneumococcal Conjugate Vacc, 13 Valent (Prevnar) [...] encounter Miscellaneous Notes * Telephone Encounter - Sridevi Rosa LPN - 03/28/2023 4:10 PM EST Dates abstracted for both * Telephone Encounter - Alexy Al MD - 03/28/2023 3:55 PM EST Pt reports getting both shingrix at [facility] - please call and abstract dates. Can ask about with same call. documented in this encounter Plan of Treatment Upcoming Encounters Date Type Department Care Team (Late st Contact Info) Description 10/06/2023 10:40 AM EDT Office Visit [address] [address] Alexy Al MD [address] [place] [phone] Health Maintenance Due Date Last Done Comments [...] D LEVEL ONCE IN A LIFETIME-USE SMARTSET# [id number] Completed 01/27/2021, 08/21/2017, 03/08/2017, Additional history exists [...] this encounter Medical Devices Implanted Type Area Pin Ticket Machine Operator Device Identifier Shelf Expiration Date Model / Serial / Lot Stent Graft [id number] - [id number] - [id number] Implanted:Qty: 1 on 05/09/2022 by Cedrick Phillips MD at [facility] [employer] : [place]ARTIN [id number] 02/11/2025 [id number] 3 / [id number] / [id number] documented as of this encounter Advance Directives Latest Code Status on File Code Status Date Activated Date Inactivated Comments No Code 05/08/2022 11:42 AM 05/11/2022 7:56 PM Th is order reflects the patients wishes and were consensually agreed upon. Question Answer Comments Discussion of Advance Directives occurred with: Patient Care Teams Oracle Technical Architect Relationship Specialty Start Date End Date Alexy Al MD [address] [place] [address] PCP - General 07/29/08 documented as of this encounter
--- OUTSIDE RECORDS SUMMARY | 2023-04-24 19:56 | External Medical Summary | Summary of Care ---
Author Name Unknown Organization [facility] Address [address] [facility] [place] [address] Phone [phone] Care Team Providers Care Rv Repair Technician Name Role Phone Alexy Al MD Primary Care Provider +1- [phone] Encounter Details Date Type Department Care Team (Late st Contact Info) Description 09/26/2022 Population Health External Data Unspecified Department Allergies No known active allergiesdocumented as of this encounter (statuses as of 03/27/2023) Medications Medication Sig Dispensed Refills Start Date [...] in the event of anaphylactic reaction per [facility] IV iron anaphylaxis protocol). May repeat every 15 min as needed per infusion reaction protocol 2 mL 11 05/25/2022 Active Melatonin 10 MG Oral Tablet [...] 180 days 1 Each 1 09/16/2022 Active Insulin Syringe-Needle U-100 30G X 5/16" 1 ML USE TO INJECT INSULIN TWICE DAILY 200 Each 1 08/31/2022 4 Active Glucose Blood In Vitro Strip USE TO TEST BLOOD SUGAR TWICE DAILY 200 Strip 08/31/2022 4 Active OneTouch Delica Plus [id number] USE TO TEST BLOOD SUGAR TWICE DAILY 400 Each 1 08/31/2022 4 Active NovoLIN 70/30 (70-30) 100 UNIT/ML Subcutaneous SuspensionIndicatio ns:Type 2 diabetes mellitus with hemoglobin A1c goal of less than 8.0% ([facility]) INJECT 25 UNITS SUBCUTANEOUSLY BEFORE BREAKFAST AND INJECT 10 UNITS BEFORE SUPPER. 40 mL 08/31/2022 4 Active Pantoprazole Sodium 40 MG Oral Tablet Delayed Release (Protonix) TAKE ONE TABLET BY MOUTH IN THE MORNING 100 Tablet 08/31/2022 4 Active Losartan Potassium 25 MG Oral Tablet (Cozaar)Indications :HTN, goal below 140/90 TAKE ONE TABLET BY MOUTH IN THE MORNING 100 Tablet 08/31/2022 4 Active metFORMIN HCl 1000 MG Oral Tablet (Glucophage)Indicat ions:Type 2 diabetes mellitus with hemoglobin A1c goal of less than 7.0% (HCC) TAKE ONE TABLET BY MOUTH IN THE MORNING AND ONE TABLET BEFORE BEDTIME WITH FOOD. 200 Tablet 1 08/31/2022 4 Active documented as of this encounter (statuses as of 03/27/2023) Active Problems Problem Noted Date Diagnosed Date [...] repeat CT. Coronary artery disease invo lving iliamna heart without angina pectoris 05/08/2022 Last Assessment [...] as of this encounter (statuses as of 03/27/2023) Resolved Problems Problem Noted Date Diagnosed Date [...] as of this encounter (statuses as of 03/27/2023) Immunizations Name Administration Dates Next Due COVID-19 [...] Description 03/28/2023 2:40 PM EST Office Visit [facility] [address] [place] [address] Alexy Al MD [address] [facility] [place] [address] Health Maintenance Due Date Last Done Comments Hepatitis B (1 of 3 - Risk 3-dose series) 2000 Zoster Vaccines (2 of 3) 07/30/2015 06/04/2015 Diabetic Foot Exam 03/20/2020 03/20/2019, 1 , 09/05/2016, Additional history exists Albumin/Creatinine Ratio 08/18/20222 022, 10/29/2019, 03/07/2018, Additional history exists Diabetic Eye Exam 01/03/2023 01/03/2022, , 2019, Additional history exists COVID-19 Vaccine ( season) 2023 03/10/2021, 08/27/2020, 08/06/2020 Influenza Vaccine (FLU shot) (#1) 2023 03/14/2022, 02/01/2021, 03/05/2020, Additional history exists Depression Screening 03/14/2023 03/14/2022 HbA1c 06/07/2023 12/05/2022, 2 08/2022, 05/23/2022, Additional history exists B-12 07/04/2023 07/04/2022, 0 01/2023, 01/27/2021, Additional history exists GFR 12/06/2023 12/05/2022, 08/14, 07/25/2022, Additional history exists DTaP,Tdap,and Td Vaccines (2 - Td or Tdap) 06/05/2024 06/05/2014 DXA Scan 11/28/2024 11/28/2022, /05/2018, 12/07/2016, Additional history exists Pneumococcal Vaccine: 65+ Years Completed 06/04/2015, 07/29/2008 VITAMIN D LEVEL ONCE IN A LIFETIME-USE SMARTSET# [id number] Completed 01/27/2021, 08/21/2017, 03/08/2017, Additional history exists GARDASIL-HPV IMMUNIZATION SERIES Aged Out No longer eligible based on patient's age to complete this topic MENINGOCOCCAL (MENACTRA/MENVEO) Aged Out No longer eligible based on patient's age to complete this topic documented as of this encounter Medical Devices Implanted Type Area Marine Fisheries Technician Device Identifier Shelf Expiration Date Model / Serial / Lot Stent Graft [id number] - [id number] - [id number] Implanted:Qty: 1 on 05/09/2022 by Cedrick Phillips MD at [place] [facility] [place] MARTIN [id number] 02/11/2025 [id number] / [id number] / [id number] documented as of this encounter Advance Directives Latest Code Status on File Code Status Date Activated Date Inactivated Comments No Code 05/08/2022 11:42 AM 05/11/2022 7:56 PM Th is order reflects the patients wishes and were consensually agreed upon. Question Answer Comments Discussion of Advance Directives occurred with: Patient Care Teams Rv Repair Technician Relationship Specialty Start Date End Date Alexy Al MD [address] [place] [address] PCP - General 07/29/08 documented as of this encounter
--- OUTSIDE RECORDS SUMMARY | 2023-04-24 19:57 | External Medical Summary | Summary of Care ---
Author Name Unknown Organization [facility] Address [address] [place] [address] Phone [phone] Care Team Providers Care Nascar Pit Crew Person Name Role Phone Alexy Al MD Primary Care Provider +1- [phone] Reason for Visit * Reason Onset Date Comments Anemia Follow-Up 12/23/2022 Encounter Details Date Type Department Care Team Description 12/19/2022 Pharmacy Pharmacy, [place] [address] [place], [place] [id number] Clinic, Anemia [address], [place] [id number] Iron deficiency anemia, unspecified iron deficiency anemia type* Allergies No known active allergiesdocumented as of this encounter (statuses as of 12/23/2022) Medications Medication Sig Dispensed Refills Start Date End Date Status CENTRUM SILVER PO TABS 1 TABLET DAILY 1 Tab 1 10/23/2009 Active OSTEO BI-FLEX JOINT SHIELD PO TABS daily OTC 1 Tab 1 10/23/2009 Active OneTouch Verio w/Device Kit Use up to 4 times a day E11.9 E11.29 1 Kit 0 08/03/2020 Active B Complex 100 TR Oral Tablet [...] 180 days 1 Each 1 09/16/2022 Active Magnesium 400 MG Oral Capsule Take [...] 1 08/31/2022 4 Active OneTouch Delica Plus [id number] USE TO TEST BLOOD SUGAR TWICE DAILY 400 Each 1 08/31/2022 4 Active NovoLIN 70/30 (70-30) 100 UNIT/ML Subcutaneous SuspensionIndicatio ns:Type 2 diabetes mellitus with hemoglobin A1c goal of less than 8.0% (HCC) INJECT 25 UNITS SUBCUTANEOUSLY BEFORE BREAKFAST AND INJECT 10 UNITS BEFORE SUPPER. 40 mL 1 08/31/2022 4 Active Alendronate Sodium 70 MG Oral Tablet (Fosamax) TAKE ONE TABLET BY MOUTH ONCE A WEEK WITH 8OZ OF WATER 30 MINUTES BEFORE THE FIRST MEAL OF THE DAY. REMAIN UPRIGHT FOR 30 MINUTES AFTER TAKING TABLET 12 Tablet 1 08/31/2022 4 Active Cinacalcet HCl 30 MG Oral Tablet (Sensipar)Indicatio ns:Hyperparathyroid ism, primary (HCC) TAKE ONE TABLET BY MOUTH IN THE MORNING. 100 Tablet 1 08/31/2022 4 Active Metoprolol Tartrate 25 MG Oral Tablet (Lopressor) TAKE ONE-HALF TABLET BY MOUTH TWICE DAILY 100 Tablet 1 08/31/2022 4 Active Atorvastatin Calcium 40 MG Oral Tablet (Lipitor)Indication s:Dyslipidemia, goal LDL below 100 TAKE ONE TABLET BY MOUTH EVERY AFTERNOON 100 Tablet 1 08/31/2022 4 Active Clopidogrel Bisulfate 75 MG Oral Tablet (pLAVix) TAKE ONE TABLET BY MOUTH IN THE MORNING. 100 Tablet 0 08/31/2022 4 Active Pantoprazole Sodium 40 MG [...] the morning. 100 Tablet 1 11/30/2022 Active documented as of this encounter (statuses as of 12/23/2022) Active Problems Problem Noted Date Superior mesenteric artery stenosis 03/2 06/2022 Mesenteric ischemia 08/03/2022 Cellulitis of right lower extremity 06/16 Last Assessment & Plan: Begin Keflex 500 [...] to pursue repeat CT. 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 -will discontinue amlodipine as it can worsen swelling in the legs. At this point, we will monitor blood pressure and make adjustments p.r.n.. -continue losartan 25 mg daily, metoprolol 25 mg twice daily Arteriosclerosis of thoracic aorta 02/01 Type 2 diabetes mellitus wit h diabetic nephropathy, with long-term current use of insulin 09/10/2018 Last Assessment & Plan: Notes low BS this am and occasionally in the middle of the night. Again, pt reluctant to change evening dose of insulin. Encouraged discussion with PCP hgba1c 6.5 01/22/22 Age-related osteoporosis without current pathological fracture 09/11/2017 Last Assessment & Plan: Continues fosmax Gastroesophageal reflux disease without esophagitis 09/11/2017 Last Assessment & Plan: Symptoms managed on pantoprazole 40 mg daily Type 2 diabetes mellitus with hemoglobin A1c goal of less than 8.0% 04/22/2013 Overview: ICD-10 update of inactive term Vitamin D deficiency 10/16/2012 Non-toxic multinodular goiter 10/16/2012 DM type 2 causing renal disease 03/07/20 11 Dyslipidemia, goal LDL below 100 011 Last Assessment & Plan: Continue atorvastatin Component Latest Ref Rng 03/07/2022 Triglycerides <=174 mg/dL 99 Cholesterol <200 mg/dL 120 HDL Cholesterol >49 mg/dL 42 (L) Non-HDL Cholesterol <=159 mg/dL 78 LDL Cholesterol <=129 mg/dL 58 (L) Low Hyperparathyroidism, primary 12/15/2009 Visual field loss, post-stroke 0 documented as of this encounter (statuses as of 12/23/2022) Resolved Problems Problem Noted Date Resolved Date Aortic atherosclerosis 05/20/2022 3 Overview: duplicate Last Assessment & Plan: Continue atorvastatin, asa and plavix BP at goal. Acute diastolic heart failure 02/02/2022 Last Assessment & Plan: -no echo scanned [...] as of this encounter (statuses as of 12/23/2022) Immunizations Name Administration Dates Next Due COVID-19 mRNA, LNP-s, No Pre serve, 2-Dose Series (Pfizer) 03/10/2021,08/27/2020,08/06/2020 Pneumococcal Conjugate Vacc, 13 Valent (Prevnar) 06/04/2015 Pneumococcal Polysaccharide PPV23 (Pneumovax) 07/29/2008 Seasonal Influenza, Quadriva lent Hd (Fluzone Hd) 03/14/2022,02/01/2021 Seasonal Influenza, Quadriva lent, No Preserve, 6 Mons & Above, IM 03/20/2019,03/13/2018,03/08/2017 Seasonal Influenza, Quadriva lent, No Preserve, Adjuvanted, 65+ Yrs, IM 03/05/2020 Seasonal Influenza, Quadriva lent, No Preserve, IM [...] = 0.6 oz pur e alcohol) occasional Food Insecurity Answer Date Recorded Within the past 12 months, y ou worried that your food would run out before you got money to buy more. Never true 08/11/2022 Within the past 12 months, t he food you bought just didn't last and you didn't have money to get more. Never true 08/11/2022 Sex Assigned at Date Recorded Female 08/11/2022 1:58 PM E DT Job Start Date Occupation Industry Not on [...] No 05/08/2022 documented as of this encounter Progress Notes * Johann Garvin, [facility] - 12/23/2022 11:55 AM EDT Patient Phone Numbers Called patient to review labs from 12/05/22. No answer, left message to return call to clinic at earliest convenience. Hgb: 8.1 g/dL TSAT: 5 % Ferritin: 43 ng/mL Hgb is below target range. Iron studies below target range. Plan to recommend Monoferric. Per chart review, patient has declined it in the past. Follow-up in ~2 weeks or sooner with return call. Anemia clinic will continue to follow. Thank you for allowing us to participate in the care of thispatient. Johann Garvin, PharmD, [facility] Clinical Pharmacist 12/23/2022 11:58 AM Lab Results Component Value Date/Time HGB - [facility] 8.1 (L) 12/05/2022 08:17 AM HGB - [facility] 10.6 (L) 09/05/2022 09:07 AM HGB - [facility] 9.4 (L) 07/25/2022 01:54 PM HGB - [facility] 15.6 (H) 12/08/2009 10:23 AM No results found for: HEMOGLOBIN-OUTSIDE LAB Results for orders placed or performed in visit on 12/05/22 IRON SCREEN, INCLUDING TIBC Result Value Ref Range Iron 18 (L) 33 - 151 ug/dL Iron Binding Capacity 394 250 - 425 ug/dL Transferrin Saturation Percent 5 (L) 15 - 55 % Results for orders placed or performed in visit on 09/05/22 IRON SCREEN, INCLUDING TIBC Result Value Ref Range Iron 44 33 - 151 ug/dL Iron Binding Capacity 325 250 - 425 ug/dL Transferrin Saturation Percent 14 (L) 15 - 55 % Results for orders placed or performed in visit on 07/04/22 IRON SCREEN, INCLUDING TIBC Result Value Ref Range Iron 20 (L) 33 - 151 ug/dL Iron Binding Capacity 235 (L) 250 - 425 ug/dL Transferrin Saturation Percent 9 (L) 15 - 55 % No results found for: TRANSFERRIN SAT %-OUTSIDE LAB Lab Results Component Value Date/Time FERRITIN - [facility] 43 12/05/2022 08:17 AM FERRITIN - [facility] 99 09/05/2022 09:07 AM FERRITIN - [facility] 76 07/04/2022 08:19 AM No results found for: FERRITIN-OUTSIDE LAB documented in this encounter Plan of Treatment Upcoming Encounters Date Type Specialty Care Team Description 01/03/2023 Pharmacy Pharmacy Clinic, Anemia [address] [place] [address] 03/28/2023 Office Visit Family Medicine Alexy Al MD [address] [place] [address] Health Maintenance Due Date Last Done Comments Hepatitis B (1 of 3 - Risk 3-dose series) 2000 Zoster Vaccines (2 of 3) 07/30/2015 06/04/2015 DIABETES-FOOT EXAM 03/20/2020 03/20/2019, 1 , 09/05/2016, Additional history exists COVID-19 Vaccine (4 - Pfizer series) 05/05/2021 03/10/2021, 08/27/2020, 08/06/2020 Albumin/Creatinine Ratio 08/18/2022 022, 10/29/2019, 03/07/2018, Additional history exists DIABETES-EYE EXAM 01/03/2023 01/03/2022, , 2019, Additional history exists Influenza Vaccine (FLU shot) (#1) 2023 03/14/2022, 02/01/2021, 03/05/2020, Additional history exists Depression Screening, Annual for Pts 12 and Over 03/14/2023 03/14/2022 HbA1c 06/07/2023 12/05/2022, 2 08/2022, 05/23/2022, Additional history exists B-12 07/04/2023 07/04/2022, 01/0 01/2023, 01/27/2021, Additional history exists GFR 12/06/2023 12/05/2022, 08/14, 07/25/2022, Additional history exists DTaP,Tdap,and Td Vaccines (2 - Td or Tdap) 06/05/2024 06/05/2014 DXA Scan 11/28/2024 11/28/2022, 04/16, 12/07/2016, Additional history exists Pneumococcal Vaccine: 65+ Years Completed 06/04/2015, 07/29/2008 VITAMIN D LEVEL ONCE IN A LIFETIME-USE SMARTSET# [id number] Completed 01/27/2021, 08/21/2017, 03/08/2017, Additional history exists GARDASIL-HPV IMMUNIZATION SERIES Aged Out No longer eligible based on patient's age to complete this topic MENINGOCOCCAL (MENACTRA/MENVEO) Aged Out No longer eligible based on patient's age to complete this topic documented as of this encounter Medical Devices Implanted Type Area Fraternity Adviser Device Identifier Shelf Expiration Date Model / Serial / Lot Stent Graft [id number] - [id number] - [id number] Implanted:Qty: 1 on 05/09/2022 by Cedrick Phillips MD at OR [facility] [place] : MARTIN [id number] 02/11/2025 [id number] / [id number] / [id number] documented as of this encounter Visit Diagnoses Diagnosis Iron deficiency anemia, unspecified iron deficiency anemia type- Primary documented in this encounter Advance Directives Latest Code Status on File Code Status Date Activated Date Inactivated Comments No Code 05/08/2022 11:42 AM 05/11/2022 7:56 PM Th is order reflects the patients wishes and were consensually agreed upon. Question Answer Comments Discussion of Advance Directives occurred with: Patient Care Teams Nascar Pit Crew Person Relationship Specialty Start Date End Date Alexy Al MD [address] [place] [address] PCP - General 07/29/08 documented as of this encounter
--- OUTSIDE RECORDS SUMMARY | 2023-04-24 19:57 | External Medical Summary | Summary of Care ---
Author Name Unknown Organization [facility] Address [address] [place] [address] Phone [phone] Care Team Providers Care Bliss Press Operator Name Role Phone Alexy Al MD Primary Care Provider +1- [phone] Reason for Visit * Reason Onset Date Comments Anemia Follow-Up 01/12/2023 Encounter Details Date Type Department Care Team Description 01/09/2023 Pharmacy Pharmacy, [place] [address] [place], [place] [phone] Clinic, Anemia [address] [place], [place] [phone] Iron deficiency anemia, unspecified iron deficiency anemia type* Allergies No known active allergiesdocumented as of this encounter (statuses as of 01/12/2023) Medications Medication Sig Dispensed Refills Start Date [...] 1 08/31/2022 4 Active OneTouch Delica Plus [id number] USE TO TEST BLOOD SUGAR TWICE DAILY [...] as of this encounter (statuses as of 01/12/2023) Active Problems Problem Noted Date Superior mesenteric [...] pursue repeat CT. Coronary artery disease involving pala heart without angina pectoris 05/08/2022 Last Assessment [...] as of this encounter (statuses as of 01/12/2023) Resolved Problems Problem Noted Date Resolved Date [...] as of this encounter (statuses as of 01/12/2023) Immunizations Name Administration Dates Next Due COVID-19 mRNA, LNP-s, No Pre serve, 2-Dose Series (Pfizer) 03/10/2021,08/27/2020,08/06/2020 Pneumococcal Conjugate Vacc, 13 Valent (Prevnar) 06/04/2015 Pneumococcal Polysaccharide PPV23 (Pneumovax) 07/29/2008 Season Influenza, Quad, PF, Adjuvanted, 65+ Yrs, IM (FLUAD) 03/05/2020 Seasonal Influenza, PF, 6 mo ns & Above, IM , (Flulaval) 03/20/2019,03/13/2018,03/08/2017 Seasonal Influenza, Quadriva lent Hd (Fluzone Hd) [...] as of this encounter Progress Notes * Anjana Son RPh - 01/12/2023 10:54 AM EDT [facility] is no longer following patient (graduated from [facility] services on 09/22/22). Anemia Clinic unable to manage patient's anemia going forward as referring provider is no longer following. Anemia Clinic will sign off and defer anemia management to patient's PCP. Thank you for allowing usto participate in the care of this patient. Anjana Son PharmD, BCPS Clinical Pharmacist 01/12/2023 10:55 AM documented in this encounter Plan of Treatment Upcoming Encounters Date Type Specialty Care Team Description 03/28/2023 Office Visit Family Medicine Alexy Al MD [address], [place] [phone] Health Maintenance Due Date Last Done Comments Hepatitis B (1 of 3 - Risk 3-dose series) 2000 Zoster Vaccines (2 of 3) 07/30/2015 06/04/2015 DIABETES-FOOT EXAM 03/20/2020 03/20/2019, 1 , 09/05/2016, Additional history exists COVID-19 Vaccine (4 - Pfizer series) 05/05/2021 03/10/2021, 08/27/2020, 08/06/2020 Albumin/Creatinine Ratio 08/18/20222 022, 10/29/2019, 03/07/2018, Additional [...] D LEVEL ONCE IN A LIFETIME-USE SMARTSET# [id number] Completed 01/27/2021, 08/21/2017, 03/08/2017, Additional history exists GARDASIL-HPV IMMUNIZATION SERIES Aged Out No longer eligible based on patient's age to complete this topic MENINGOCOCCAL (MENACTRA/MENVEO) Aged Out No longer eligible based on patient's age to complete this topic documented as of this encounter Medical Devices Implanted Type Area Research Associate Professor Device Identifier Shelf Expiration Date Model / Serial / Lot Stent Graft [id number] - [id number] - [id number] Implanted:Qty: 1 on 05/09/2022 by Cedrick Phillips MD at [place] [facility] [place] MARTIN [id number] 02/11/2025 [id number] 3 / [id number] / [id number] documented as of this encounter Visit Diagnoses [...] Advance Directives occurred with: Patient Care Teams Bliss Press Operator Relationship Specialty Start Date End Date Alexy Al MD [address] [place] [address] PCP - General 07/29/08 documented as of this encounter
--- OUTSIDE RECORDS SUMMARY | 2023-04-24 19:57 | External Medical Summary | Summary of Care ---
Author Name Unknown Organization [facility] Address [address] [place] [address] Phone [phone] Care Team Providers Care Program Production Specialist Name Role Phone Alexy Al MD Primary Care Provider +1- [phone] Encounter Details Date Type Department Care Team Description 01/03/2023 Orders Only Outcomes Research Department [address] [place] [address] Marielos Lim CHRA [employer] Other*[id number] Allergies No known active allergiesdocumented as of this encounter (statuses as of 01/03/2023) Medications Medication Sig Dispensed Refills Start Date [...] 1 08/31/2022 4 Active OneTouch Delica Plus [id number] USE TO TEST BLOOD SUGAR TWICE DAILY [...] as of this encounter (statuses as of 01/03/2023) Active Problems Problem Noted Date Superior mesenteric artery stenosis 07/14 Mesenteric ischemia 08/03/2022 Cellulitis of right lower [...] pursue repeat CT. Coronary artery disease involving craig heart without angina pectoris 05/08/2022 Last Assessment [...] as of this encounter (statuses as of 01/03/2023) Resolved Problems Problem Noted Date Resolved Date [...] as of this encounter (statuses as of 01/03/2023) Immunizations Name Administration Dates Next Due COVID-19 [...] Encounters Date Type Specialty Care Team Description 01/05/2023 Pharmacy Pharmacy Clinic, Anemia [address] [place], [place] [phone] 03/28/2023 Office Visit Family Medicine Alexy Al MD [address] [place], [place] [phone] Scheduled Orders Name Type Priority Associated Diagnoses Orde r Schedule MYCODE SUBSEQUENT ADULT Lab Routine [employer] Other*[id number] Every 6 Months for 2 Occurrences starting 01/03/2023 until 01/23/2024 Health Maintenance Due Date Last Done Comments [...] D LEVEL ONCE IN A LIFETIME-USE SMARTSET# [id number] Completed 01/27/2021, 08/21/2017, 03/08/2017, Additional history exists GARDASIL-HPV IMMUNIZATION SERIES Aged Out No longer eligible based on patient's age to complete this topic MENINGOCOCCAL (MENACTRA/MENVEO) Aged Out No longer eligible based on patient's age to complete this topic documented as of this encounter Medical Devices Implanted Type Area Water Pump Operator Device Identifier Shelf Expiration Date Model / Serial / Lot Stent Graft [id number] - [id number] - [id number] Implanted:Qty: 1 on 05/09/2022 by Cedrick Phillips MD [place] [facility] [place] MARTIN [id number] 02/11/2025 [id number] 3 / [id number] / [id number] documented as of this encounter Visit Diagnoses Diagnosis [employer] Other*[id number] documented in this encounter Advance Directives Latest Code Status on File Code Status Date Activated Date Inactivated Comments No Code 05/08/2022 11:42 AM 05/11/2022 7:56 PM Th is order reflects the patients wishes and were consensually agreed upon. Question Answer Comments Discussion of Advance Directives occurred with: Patient Care Teams Program Production Specialist Relationship Specialty Start Date End Date Alexy Al MD [address] [place] [phone] PCP - General 07/29/08 documented as of this encounter
--- OUTSIDE RECORDS SUMMARY | 2023-04-24 19:57 | External Medical Summary | Summary of Care ---
Author Name Unknown Organization [facility] Address [address] [place] [address] Phone [phone] Care Team Providers Care Bumboater Name Role Phone Alexy Al MD Primary Care Provider +1- [phone] Reason for Visit * Reason Comments Anemia Follow-Up Encounter Details Date Type Department Care Team Description 12/06/2022 Pharmacy Pharmacy, [place] [address] [place] [address] Clinic, [place] [address] [place] [address] Iron deficiency anemia, unspecified iron deficiency anemia type* Allergies No known active allergiesdocumented as of this encounter (statuses as of 12/09/2022) Medications Medication Sig Dispensed Refills Start Date End Date Status CENTRUM SILVER PO TABS 1 TABLET DAILY 1 Tab 1 0 Active OSTEO BI-FLEX JOINT SHIELD PO TABS daily OTC 1 Tab 1 0 Active OneTouch Verio w/Device Kit Use up to 4 times a day E11.9 E11.29 1 Kit 0 1 Active B Complex 100 TR Oral Tablet [...] 60 to 180 days 1 Each 1 3 Active Magnesium 400 MG Oral Capsule [...] 3 08/31/19 24 Active OneTouch Delica Plus [id number] USE TO TEST BLOOD SUGAR TWICE DAILY 400 Each 3 08/31/19 24 Active NovoLIN 70/30 (70-30) 100 UNIT/ML Subcutaneous SuspensionIndicati ons:Type 2 diabetes mellitus with hemoglobin A1c goal of less than 8.0% (HCC) INJECT 25 UNITS SUBCUTANEOUSLY BEFORE BREAKFAST AND INJECT 10 UNITS BEFORE SUPPER. 40 mL 3 08/31/19 24 Active Alendronate Sodium 70 MG Oral Tablet (Fosamax) TAKE ONE TABLET BY MOUTH ONCE A WEEK WITH 8OZ OF WATER 30 MINUTES BEFORE THE FIRST MEAL OF THE DAY. REMAIN UPRIGHT FOR 30 MINUTES AFTER TAKING TABLET 12 Tablet 1 3 08/31/19 24 Active Cinacalcet HCl 30 MG Oral Tablet (Sensipar)Indicati ons:Hyperparathyro idism, primary (HCC) TAKE ONE TABLET BY MOUTH IN THE MORNING. 100 Tablet 3 08/31/19 24 Active Metoprolol Tartrate 25 MG Oral Tablet (Lopressor) TAKE ONE-HALF TABLET BY MOUTH TWICE DAILY 100 Tablet 1 3 08/31/19 24 Active Atorvastatin Calcium 40 MG Oral Tablet (Lipitor)Indicatio ns:Dyslipidemia, goal LDL below 100 TAKE ONE TABLET BY MOUTH EVERY AFTERNOON 100 Tablet 1 3 08/31/19 24 Active Clopidogrel Bisulfate 75 MG Oral Tablet (pLAVix) TAKE ONE TABLET BY MOUTH IN THE MORNING. 100 Tablet 0 3 08/31/19 24 Active Pantoprazole Sodium 40 [...] the morning. 100 Tablet 1 3 Active Monoferric 1000 MG/10ML Intravenous Solution (Ferric derisomaltose) Monoferric 1,000mg IV x 1 10 mL 0 01/11/202 3 12/10/19 23 Discontinu ed(Patient preference /discontin uation) documented as of this encounter (statuses as of 12/09/2022) Active Problems Problem Noted Date Superior mesenteric [...] pursue repeat CT. Coronary artery disease involving [place] heart without angina pectoris 05/08/2022 Last Assessment [...] as of this encounter (statuses as of 12/09/2022) Resolved Problems Problem Noted Date Resolved Date [...] as of this encounter (statuses as of 12/09/2022) Immunizations Name Administration Dates Next Due COVID-19 [...] as of this encounter Progress Notes * Alma Montoya, [facility] - 12/09/2022 1:39 PM EDT Patient Phone Numbers Called patient to review labs from 12/05. No answer, left message to return call to clinic at earliest convenience. Hgb: 8.1 g/dL TSAT: 5 % Ferritin: 43 ng/mL Hgb is below target range. Iron studies below target range. Plan to recommend Monoferric. Per chart review, patient has declined it in the past. Follow-up next week or sooner with return call. Anemia clinic will continue to follow. Thank you for allowing us to participate in the care of thispatient. Alma Montoya, PharmD Clinical Pharmacist Medication Therapy Disease Management 12/09/2022, 1:39 PM Lab Results Component Value Date/Time HGB - [...] Encounters Date Type Specialty Care Team Description 12/14/2022 Pharmacy Pharmacy Clinic, [place] [address] [place] [address] 03/28/2023 Office Visit Family Medicine Alexy Al MD [address] [place] [address] Health Maintenance Due Date Last [...] D LEVEL ONCE IN A LIFETIME-USE SMARTSET# [id number] Completed 01/27/2021, 08/21/2017, 03/08/2017, Additional history exists GARDASIL-HPV IMMUNIZATION SERIES Aged Out No longer eligible based on patient's age to complete this topic MENINGOCOCCAL (MENACTRA/MENVEO) Aged Out No longer eligible based on patient's age to complete this topic documented as of this encounter Medical Devices Implanted Type Area Obstetrical Anesthesiologist Device Identifier Shelf Expiration Date Model / Serial / Lot Stent Graft [id number] - [id number] - [id number] Implanted:Qty: 1 on 05/09/2022 by Cedrick Phillips MD at OR [facility] [place] : SHILPINAZIA [id number] 02/11/2025 [id number] / [id number] / [id number] documented as of this encounter Visit Diagnoses [...] Advance Directives occurred with: Patient Care Teams Bumboater Relationship Specialty Start Date End Date Alexy Al MD [address] [place] [phone] PCP - General 07/29/08 documented as of this encounter
--- OUTSIDE RECORDS SUMMARY | 2023-04-24 19:57 | External Medical Summary | Summary of Care ---
Author Name Unknown Organization [facility] Address [address] [place] [address] Phone [phone] Care Team Providers Care Correctional Facility Nurse Name Role Phone Alexy Al MD Primary Care Provider +1- [phone] Reason for Visit * Reason Onset Date Comments Anemia Follow-Up 01/12/2023 Encounter Details Date Type Department Care Team Description 01/09/2023 Pharmacy Pharmacy, [place] [address] [place], [place] [id number] Clinic, Anemia [address] [place], [place] [id number] Iron deficiency anemia, unspecified iron deficiency anemia [...] 1 08/31/2022 4 Active OneTouch Delica Plus [id number] USE TO TEST BLOOD SUGAR TWICE DAILY [...] pursue repeat CT. Coronary artery disease involving [place] heart without angina pectoris 05/08/2022 Last Assessment [...] Son RPh - 01/12/2023 10:54 AM EDT [facility] is no longer following patient (graduated from [facility] services on 09/22/22). Anemia Clinic unable [...] Office Visit Family Medicine Alexy Al MD [address], [place] [id number] Health Maintenance Due Date Last Done Comments [...] D LEVEL ONCE IN A LIFETIME-USE SMARTSET# [id number] Completed 01/27/2021, 08/21/2017, 03/08/2017, Additional history exists GARDASIL-HPV IMMUNIZATION SERIES Aged Out No longer eligible based on patient's age to complete this topic MENINGOCOCCAL (MENACTRA/MENVEO) Aged Out No longer eligible based on patient's age to complete this topic documented as of this encounter Medical Devices Implanted Type Area Gis Programmer Device Identifier Shelf Expiration Date Model / Serial / Lot Stent Graft [id number] - [id number] - [id number] Implanted:Qty: 1 on 05/09/2022 by Cedrick Phillips MD at [place] [facility] [place] : MARTIN [id number] 02/11/2025 [id number] 3 / [id number] / [id number] documented as of this encounter Visit Diagnoses [...] Advance Directives occurred with: Patient Care Teams Correctional Facility Nurse Relationship Specialty Start Date End Date Alexy Al MD [address] [place] [address] PCP - General 07/29/08 documented as of this encounter
--- OUTSIDE RECORDS SUMMARY | 2023-04-24 19:57 | External Medical Summary | Summary of Care ---
Author Name Unknown Organization [facility] Address [address] [place] [address] Phone [phone] Care Team Providers Care Counter Dish Carrier Name Role Phone Angelica Rodas MD Primary Care Provider +1- [phone] Reason for Visit * Reason Comments Medication Refill Encounter Details Date Type Department Care Team Description 02/16/2023 Refill [facility] [address] [place] [address] Angelica Rodas MD [address] [place] [address] Allergies No known active allergiesdocumented as of this encounter (statuses as of 02/16/2023) Medications Medication Sig Dispensed Refills Start Date [...] 3 08/31/19 24 Active OneTouch Delica Plus [id number] USE TO TEST BLOOD SUGAR TWICE DAILY [...] 12 Tablet 1 3 02/16/20 24 Active Alendronate Sodium 70 MG Oral Tablet (Fosamax) TAKE ONE TABLET BY MOUTH ONCE A WEEK WITH 8OZ OF WATER 30 MINUTES BEFORE THE FIRST MEAL OF THE DAY. REMAIN UPRIGHT FOR 30 MINUTES AFTER TAKING TABLET 12 Tablet 1 3 02/17/20 23 Discontinu ed(Refill) documented as of this encounter (statuses as of 02/16/2023) Active Problems Problem Noted Date Superior mesenteric [...] pursue repeat CT. Coronary artery disease involving [place] heart without angina pectoris 05/08/2022 Last Assessment [...] as of this encounter (statuses as of 02/16/2023) Resolved Problems Problem Noted Date Resolved Date Aortic atherosclerosis 05/20/2022 3 Overview: duplicate Last Assessment & Plan: Continue atorvastatin, asa and plavix BP at goal. Acute diastolic heart failure 02/02/2022 Last Assessment & Plan: -no echo scanned into [employer]. No mention of echo on d/c summary [...] as of this encounter (statuses as of 02/16/2023) Immunizations Name Administration Dates Next Due COVID-19 [...] encounter Miscellaneous Notes * Telephone Encounter - Kuldip Lechuga [facility] - 02/16/2023 2:39 PM EDT Signed Prescriptions: Disp Refills Alendronate Sodium 70 MG Oral Tablet (Fosa*12 Tab*1 Sig: TAKE ONE TABLET BY MOUTH ONCE A WEEK WITH 8OZ OF WATER 30 MINUTES BEFORE THE FIRST MEAL OF THE DAY. REMAIN UPRIGHT FOR 30 MINUTES AFTER TAKING TABLETAuthorizing Provider: ANGELICA RODAS User: KULDIP LECHUGA - documented in this encounter Plan of Treatment Upcoming Encounters Date Type Specialty Care Team Description 03/28/2023 Office Visit Family Medicine Angelica Rodas MD [address] [place] [address] Health Maintenance Due Date Last Done Comments [...] D LEVEL ONCE IN A LIFETIME-USE SMARTSET# [id number] Completed 01/27/2021, 08/21/2017, 03/08/2017, Additional history exists GARDASIL-HPV IMMUNIZATION SERIES Aged Out No longer eligible based on patient's age to complete this topic MENINGOCOCCAL (MENACTRA/MENVEO) Aged Out No longer eligible based on patient's age to complete this topic documented as of this encounter Medical Devices Implanted Type Area Quality Assurance Coach Device Identifier Shelf Expiration Date Model / Serial / Lot Stent Graft [id number] - [id number] - [id number] Implanted:Qty: 1 on 05/09/2022 by Cedrick Phillips MD [place] [facility] [place] [facility] [place] MARTIN [id number] 02/11/2025 [id number] 3 / [id number] / [id number] documented as of this encounter Advance Directives Latest Code Status on File Code Status Date Activated Date Inactivated Comments No Code 05/08/2022 11:42 AM 05/11/2022 7:56 PM Th is order reflects the patients wishes and were consensually agreed upon. Question Answer Comments Discussion of Advance Directives occurred with: Patient Care Teams Counter Dish Carrier Relationship Specialty Start Date End Date Angelica Rodas MD [address], [place] [phone] PCP - General 07/29/08 documented as of this encounter
--- OUTSIDE RECORDS SUMMARY | 2023-04-24 19:57 | External Medical Summary | Summary of Care ---
Author Name Unknown Organization [facility] Address [address] [place] [address] Phone [phone] Care Team Providers Care Licensed Surveyor Name Role Phone Alexy Al MD Primary Care Provider +1- [phone] Reason for Visit * Reason Onset Date Comments Left Message 12/14/2022 Encounter Details Date Type Department Care Team Description 12/14/2022 Emulsification Operator Telephone [facility] [address] [place] [address] Dahiana Arredondo, LIBBY [address] [place] [address] Left Message Allergies No known active allergiesdocumented as of this encounter (statuses as of 12/14/2022) Medications Medication Sig Dispensed Refills Start Date [...] to 180 days 1 Each 09/16/2022 Active Magnesium 400 MG Oral Capsule Take 1 Capsule by mouth in the morning. 90 Capsule 10/11/2022 Active Magnesium Oxide -Mg Supplement 400 MG Oral Capsule TAKE ONE CAPSULE BY MOUTH EVERY MORNING 90 Capsule 10/11/2022 4 Active Insulin Syringe-Needle U-100 30G X 5/16" 1 ML USE TO INJECT INSULIN TWICE DAILY 200 Each 1 08/31/2022 4 Active Glucose Blood In Vitro Strip USE TO TEST BLOOD SUGAR TWICE DAILY 200 Strip 1 08/31/2022 4 Active OneTouch Delica Plus [id number] USE TO TEST BLOOD SUGAR TWICE DAILY 400 Each 08/31/2022 4 Active NovoLIN 70/30 (70-30) 100 [...] as of this encounter (statuses as of 12/14/2022) Active Problems Problem Noted Date Superior mesenteric [...] pursue repeat CT. Coronary artery disease involving [place] heart without angina pectoris 05/08/2022 Last Assessment [...] as of this encounter (statuses as of 12/14/2022) Resolved Problems Problem Noted Date Resolved Date [...] as of this encounter (statuses as of 12/14/2022) Immunizations Name Administration Dates Next Due COVID-19 [...] encounter Miscellaneous Notes * Telephone Encounter - Dahiana Arredondo RN - 12/14/2022 10:29 AM EDT 1. Follow-up Routine 2. Attempted Phone Call First Attempt 3. Call Outcome Left Voicemail/Message 4. Plan To attempt another outreach Dahiana Arredondo RN documented in this encounter Plan of Treatment Upcoming Encounters Date Type Specialty Care Team Description 03/28/2023 Office Visit Family Medicine Alexy Al MD [address] [place] [address] Health Maintenance Due Date Last Done Comments [...] and Over 03/14/2023 03/14/2022 HbA1c 06/07/2023 12/05/2022, 08/14, 05/23/2022, Additional history exists B-12 07/04/2023 07/04/2022, 01/0 01/2023, 01/27/2021, Additional history exists GFR 12/06/2023 12/05/2022, 08/14, 07/25/2022, Additional history exists DTaP,Tdap,and Td Vaccines (2 - Td or Tdap) 06/05/2024 06/05/2014 DXA Scan 11/28/2024 11/28/2022, 04/16, 12/07/2016, Additional history exists Pneumococcal Vaccine: 65+ Years Completed 06/04/2015, 07/29/2008 VITAMIN D LEVEL ONCE IN A LIFETIME-USE SMARTSET# [id number] Completed 01/27/2021, 08/21/2017, 03/08/2017, Additional history exists GARDASIL-HPV IMMUNIZATION SERIES Aged Out No longer eligible based on patient's age to complete this topic MENINGOCOCCAL (MENACTRA/MENVEO) Aged Out No longer eligible based on patient's age to complete this topic documented as of this encounter Medical Devices Implanted Type Area Industrial Engineering Analyst Device Identifier Shelf Expiration Date Model / Serial / Lot Stent Graft [id number] - [id number] - [id number] Implanted:Qty: 1 on 05/09/2022 by Cedrick Phillips MD at OR [facility] [place] : MARTIN [id number] 02/11/2025 [id number] 3 / [id number] / [id number] documented as of this encounter Advance Directives Latest Code Status on File Code Status Date Activated Date Inactivated Comments No Code 05/08/2022 11:42 AM 05/11/2022 7:56 PM Th is order reflects the patients wishes and were consensually agreed upon. Question Answer Comments Discussion of Advance Directives occurred with: Patient Care Teams Licensed Surveyor Relationship Specialty Start Date End Date Alexy Al MD [address] [place] [address] PCP - General 07/29/08 documented as of this encounter
--- OUTSIDE RECORDS SUMMARY | 2023-04-24 19:57 | External Medical Summary | Summary of Care ---
Author Name Unknown Organization [facility] Address [address] [place] [address] Phone [phone] Care Team Providers Care Bearing Press Machine Operator Name Role Phone Alexy Al MD Primary Care Provider +1- [phone] Encounter Details Date Type Department Care Team Description 02/09/2023 Ceramic Research [facility] [address] [place] [address] Dahiana Arredondo, RN [address] [place] [address] Chronic heart failure with preserved ejection fraction (HCC)* Allergies No known active allergiesdocumented as of this encounter (statuses as of 02/09/2023) Medications Medication Sig Dispensed Refills Start Date [...] 1 08/31/2022 4 Active OneTouch Delica Plus Yctxoh24S USE TO TEST BLOOD SUGAR TWICE DAILY [...] AFTERNOON 100 Tablet 1 08/31/2022 4 Active Pantoprazole Sodium 40 [...] the morning. 100 Tablet 3 01/26/2023 Active documented as of this encounter (statuses as of 02/09/2023) Active Problems Problem Noted Date Superior mesenteric [...] pursue repeat CT. Coronary artery disease involving [place] heart without angina pectoris 05/08/2022 Last Assessment [...] as of this encounter (statuses as of 02/09/2023) Resolved Problems Problem Noted Date Resolved Date [...] as of this encounter (statuses as of 02/09/2023) Immunizations Name Administration Dates Next Due COVID-19 [...] as of this encounter Progress Notes * Dahiana Arredondo RN - 02/09/2023 11:43 AM EDT Ceramic Research Engineer Progress Note: Date: 02/09/23 Assigned Patient Tier: 3 Connected with patient via phone. Verified patient name/. Advised patient that call is being recorded for quality and training purposes. Assessment: Pt. noted the following: Patient denies SOB, cough, says she has a little LE edema, normal for her Has an [facility] scale, weight has been stable at 156 lbs. Patient has a good appetite, no new bowel/bladder complaints Having some pain to her left foot, denies injury, says she will discuss at her next PCP appointment Blood sugars running below 150 Patient using a walker to ambulate, no report of falls, discussed safety precautions Confirmed upcoming follow up appointment Encouraged patient to call for a sooner appointment if left foot pain gets worse, patient verbalized understanding Did you receive an alert for an annual wellness visit? No Is this call for a hospital, jail or rehab facility discharge to home? No Medication Reconciliation: Medication Reconciliation completed: no Review of Current goals: Discussed the following patient-centered CM goals with the patient during this discussion: -HEART FAILURE: Achieve successful management of heart failure. -Status: On Track weight has been stable, denies SOB, increased LE/abd edema. -Pain: Patient will have pain well managed -Status: On Track confirmed patient's pain is currently controlled, having pain to left foot, says she will discuss with PCP. -SAFETY: Prevent falls or injuries -Status: On Track patient using a walker to ambulate, no report of falls. COPD Patient: No CHF Patient: YES Scale: YES, Current Weight: 156 lbs, Reinforced fluid restriction and low sodium diet. CM Plan: Reviewed 3 Red Flags with patient. Advised to call CM with any of the following: Red Flag 1: increased SOB, cough, Red Flag 2: increased LE/abd edema, or Red Flag 3: weight gain of 3 pounds in 24 hours Remote Patient Monitoring: Device Currently in place: [facility] scale. Reviewed readings. Interventions, if needed: none needed Plan for Future Contacts: Plan to follow up 4=6 weeks to check progress on the following goals/needs as needed. Planned contacts from the following parties will occur this week: PCP office visit as additional contacts per workflow. Advancement/Closure Plan: Keep patient at current Tier with reassessment per workflow. Patient provided CM contact information and encouraged to call with any changes in condition. SNP Member? No PCP Notified of enrollment in CM/HM program: Yes Is Provider in agreement with POC? Yes Dahiana Arredondo RN Outpatient Case Management documented in this encounter Plan of Treatment Upcoming Encounters Date Type Specialty Care Team Description 03/28/2023 Office Visit Family Medicine Alexy Al MD [facility] [place] [address] Health Maintenance Due Date Last Done Comments Hepatitis B (1 of 3 - Risk 3-dose series) 2000 Zoster Vaccines (2 of 3) 07/30/2015 06/04/2015 Diabetic Foot Exam 03/20/2020 03/20/2019, 1 , 09/05/2016, Additional history exists COVID-19 Vaccine (4 - Pfizer series) 05/05/2021 03/10/2021, 08/27/2020, 08/06/2020 Albumin/Creatinine Ratio 08/18/202208/18/2 022, 10/29/2019, 03/07/2018, Additional history exists DIABETES-EYE EXAM 01/03/2023 01/03/2022, , 2019, Additional history exists Influenza Vaccine (FLU shot) (#1) 2023 03/14/2022, 02/01/2021, 03/05/2020, Additional history exists Depression Screening 03/14/2023 03/14/2022 HbA1c 06/07/2023 12/05/2022, 04/2 08/2022, 05/23/2022, Additional history exists B-12 07/04/2023 07/04/2022, 01/0 01/2023, 01/27/2021, Additional history exists GFR 12/06/2023 12/05/2022, 2 08/2022, 07/25/2022, Additional history exists DTaP,Tdap,and Td Vaccines (2 - Td or Tdap) 06/05/2024 06/05/2014 DXA Scan 11/28/2024 11/28/2022, 12/05/2018, 12/07/2016, Additional history exists Pneumococcal Vaccine: 65+ Years Completed 06/04/2015, 07/29/2008 VITAMIN D LEVEL ONCE IN A LIFETIME-USE SMARTSET# [id number] Completed 01/27/2021, 08/21/2017, 03/08/2017, Additional history exists GARDASIL-HPV IMMUNIZATION SERIES Aged Out No longer eligible based on patient's age to complete this topic MENINGOCOCCAL (MENACTRA/MENVEO) Aged Out No longer eligible based on patient's age to complete this topic documented as of this encounter Medical Devices Implanted Type Area Manager User Experience Device Identifier Shelf Expiration Date Model / Serial / Lot Stent Graft [id number] - [id number] - [id number] Implanted:Qty: 1 on 05/09/2022 by Cedrick Phillips MD at [place] [facility] [place] : MARTIN [id number] 02/11/2025 [id number] 3 / [id number] / [id number] documented as of this encounter Visit Diagnoses Diagnosis Chronic heart failure with preserved ejection fraction (HCC)- Primary documented in this encounter Advance Directives Latest Code Status on File Code Status Date Activated Date Inactivated Comments No Code 05/08/2022 11:42 AM 05/11/2022 7:56 PM Th is order reflects the patients wishes and were consensually agreed upon. Question Answer Comments Discussion of Advance Directives occurred with: Patient Care Teams Bearing Press Machine Operator Relationship Specialty Start Date End Date Alexy Al MD [address] [place] [address] PCP - General 07/29/08 documented as of this encounter
--- OUTSIDE RECORDS SUMMARY | 2023-04-24 19:57 | External Medical Summary | Summary of Care ---
Author Name Unknown Organization [facility] Address [address] [facility] [place] [address] Phone [phone] Care Team Providers Care Can Handler Name Role Phone Angelica Rodas MD Primary Care Provider +1- [phone] Reason for Visit * Reason Onset Date Comments Medication Refill 03/06/2023 Encounter Details Date Type Department Care Team (Late st Contact Info) Description 03/06/2023 Refill [facility] [address] [place] [address] Angelica Rodas MD [address] [place] [address] Allergies No known active allergiesdocumented [...] 3 08/31/19 24 Active OneTouch Delica Plus [id number] USE TO TEST BLOOD SUGAR TWICE DAILY [...] 12 Tablet 1 3 02/16/20 24 Active OneTouch Verio w/Device Kit Use up to 4 times a day E11.9 E11.29 1 Kit 0 3 Active OneTouch Verio w/Device Kit Use up to 4 times a day E11.9 E11.29 1 Kit 0 1 03/06/20 Discontinu ed(Refill) documented as of this encounter [...] repeat CT. Coronary artery disease invo lving [place] heart without angina pectoris 05/08/2022 Last Assessment [...] encounter Miscellaneous Notes * Telephone Encounter - Anjana Barajas RPh - 03/06/2023 2:00 PM EDTSigned Prescriptions: Disp Refills OneTouch Verio w/Device Kit 1 Kit 0 Sig: Use up to 4 times a dayE11.9 E11.29Authorizing Provider: ANGELICA RODAS User: ANJANA BARAJAS documented in this encounter Plan of Treatment Upcoming Encounters Date Type Department Care Team (Late st Contact Info) Description 03/28/2023 2:40 PM EST Office Visit [facility] [address] [place] [facility] [place] [id number] Angelica Rodas MD [address] [facility] [place] [id number] Health Maintenance Due Date Last Done Comments [...] D LEVEL ONCE IN A LIFETIME-USE SMARTSET# [id number] Completed 01/27/2021, 08/21/2017, 03/08/2017, Additional history exists GARDASIL-HPV IMMUNIZATION SERIES Aged Out No longer eligible based on patient's age to complete this topic MENINGOCOCCAL (MENACTRA/MENVEO) Aged Out No longer eligible based on patient's age to complete this topic documented as of this encounter Medical Devices Implanted Type Area [employer] Device Identifier Shelf Expiration Date Model / Serial / Lot Stent Graft [id number] - [id number] - [id number] Implanted:Qty: 1 on 05/09/2022 by Cedrick Phillips MD at [facility] [place] : MARTIN [id number] 02/11/2025 [id number] / [id number] / [id number] documented as of this encounter Advance Directives Latest Code Status on File Code Status Date Activated Date Inactivated Comments No Code 05/08/2022 11:42 AM 05/11/2022 7:56 PM Th is order reflects the patients wishes and were consensually agreed upon. Question Answer Comments Discussion of Advance Directives occurred with: Patient Care Teams Can Handler Relationship Specialty Start Date End Date Angelica Rodas MD [address] [place] [address] PCP - General 07/29/08 documented as of this encounter
--- OUTSIDE RECORDS SUMMARY | 2023-04-24 19:57 | External Medical Summary | Summary of Care ---
Author Name Unknown Organization [facility] Address [address] [place] [address] Phone [phone] Care Team Providers Care Clothing Supervisor Name Role Phone Alexy Al MD Primary Care Provider +1- [phone] Encounter Details Date Type Department Care Team Description 12/19/2022 [facility] [address] [place] [address] Dahiana Arredondo, LIBBY [address] [place] [address] Chronic heart failure with preserved ejection fraction (HCC)* Allergies No known active allergiesdocumented as of this encounter (statuses as of 12/19/2022) Medications Medication Sig Dispensed Refills Start Date [...] 1 08/31/2022 4 Active OneTouch Delica Plus [id number] USE TO TEST BLOOD SUGAR TWICE DAILY [...] as of this encounter (statuses as of 12/19/2022) Active Problems Problem Noted Date Superior mesenteric [...] pursue repeat CT. Coronary artery disease involving [place] heart without angina pectoris 05/08/2022 Last Assessment [...] as of this encounter (statuses as of 12/19/2022) Resolved Problems Problem Noted Date Resolved Date [...] as of this encounter (statuses as of 12/19/2022) Immunizations Name Administration Dates Next Due COVID-19 [...] Progress Notes * Dahiana Arredondo RN - 12/19/2022 3:46 PM EDT System Consultant Progress Note: Date: 12/19/22 Assgned Patient Tier: 3 Connected with patient via phone. Verified patient name/. Advised patient that call is being recorded for quality and training purposes. Assessment: Pt. noted the following: Patient denies SOB, cough, LE Edema or angina AMC scale in place, not transmitting, asked patient to change the batteries Patient says her weight has been between 153-155 Has a good appetite, denies bowel/bladder complaints today No complaints of pain, no skin issues Blood sugars running 70-140, last A1C on 12/05/22 of 7.4 Discussed with patient eating something right away with blood sugar less than 90 Patient using a walker to ambulate Confirmed upcoming follow up appointments No current questions/concerns Did you receive an alert for an annual wellness visit? No Is this call for a hospital, usp or rehab facility discharge to home? No Medication Reconciliation: Medication Reconciliation completed: no Review of Current goals: Discussed the following patient-centered CM goals with the patient during this discussion: -HEART FAILURE: Achieve successful management of heart failure. -Status: On Track weights currently stable, denies LE edema. -Diabetes: Patient will successfully manage their diabetes -Status: On Track A1C on 12/05/22 was 7.4, confirmed she is taking her medications as prescribed. -SAFETY: Prevent falls or injuries -Status: On Track patient using walker to ambulate, no report of falls. COPD Patient: No CHF Patient: YES Scale: YES, Current Weight: 153lbs, Reinforced fluid restriction and low sodium diet. CM Plan: Reviewed 3 Red Flags with patient. Advised to call CM with any of the following: Red Flag 1: increased SOB, cough, Red Flag 2: fever, chills or Red Flag 3: increased LE/abd edema, weight gain of 5 lbs in 24 hours Remote Patient Monitoring: Device Currently in place: AMC Scale. Reviewed readings. Interventions, if needed: not transmitting, patient to try new batteries Plan for Future Contacts: Plan to follow up 4-6 weeks to check progress on the following goals/needs as above. Planned contacts from the following parties will occur this week: N/A as additional contacts per workflow. Advancement/Closure Plan: [...] Family Medicine Alexy Al MD [address] [place] [address] Health Maintenance Due Date Last [...] D LEVEL ONCE IN A LIFETIME-USE SMARTSET# [id number] Completed 01/27/2021, 08/21/2017, 03/08/2017, Additional history exists GARDASIL-HPV IMMUNIZATION SERIES Aged Out No longer eligible based on patient's age to complete this topic MENINGOCOCCAL (MENACTRA/MENVEO) Aged Out No longer eligible based on patient's age to complete this topic documented as of this encounter Medical Devices Implanted Type Area Fittings Tightener Device Identifier Shelf Expiration Date Model / Serial / Lot Stent Graft [id number] - [id number] - [id number] Implanted:Qty: 1 on 05/09/2022 by Cedrick Phillips MD at [place] [facility] : MARTIN [id number] 02/11/2025 [id number] 3 / [id number] / [id number] documented as of this encounter Visit Diagnoses [...] Advance Directives occurred with: Patient Care Teams Clothing Supervisor Relationship Specialty Start Date End Date Alexy Al MD [address] [place] [address] PCP - General 07/29/08 documented as of this encounter
--- OUTSIDE RECORDS SUMMARY | 2023-04-24 19:57 | External Medical Summary | Summary of Care ---
Author Name Unknown Organization [facility] Address [address] [place] [address] Phone [phone] Care Team Providers Care Investment Advisor Name Role Phone Alexy Al MD Primary Care Provider +1- [phone] Reason for Visit * Reason Onset Date Comments Medication Refill 01/26/2023 Encounter Details Date Type Department Care Team Description 01/26/2023 Refill General Internal Medicine, Emmanuel Grajeda [facility] [address] [place] [address] Emma Grigsby MD [address] [place], [place] [id number] Allergies No known active allergiesdocumented as of this encounter (statuses as of 01/26/2023) Medications Medication Sig Dispensed Refills Start Date [...] 3 08/31/19 24 Active OneTouch Delica Plus Uziqnm85U USE TO TEST BLOOD SUGAR TWICE DAILY [...] the morning. 100 Tablet 3 3 Active Clopidogrel Bisulfate 75 MG Oral Tablet (pLAVix) TAKE ONE TABLET BY MOUTH IN THE MORNING. 100 Tablet 0 3 01/27/20 23 Discontinu ed(Refill) documented as of this encounter (statuses as of 01/26/2023) Active Problems Problem Noted Date Superior mesenteric [...] pursue repeat CT. 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 Authorizing Provider: LUZ MARINA LITTLE Ordering User: HILDA REAL * Telephone Encounter - Sonja Haney CPhT - 01/26/2023 8:28 AM EDT Did you pend patient's preferred pharmacy and medication before forwarding?yes Pharmacy: [facility] Pending Prescriptions: Disp Refills Clopidogrel Bisulfate 75 MG Oral Tablet (*100 Ta*3 Sig: Take 1 Tablet by mouth in the morning. Last Visit: Visit date not found (in office), Visit date not found (telemedicine) Next Visit: Visit date not found If no future appointments scheduled, and last appointment is greater than a year ago, please schedule patient for a follow-up appointment Last date the medication was ordered: 08/31/2022 Is this request for a controlled substance?No [...] AM HGBA1C 8.1 (H) 03/05/2020 02:53 PM Thank you, Sonja Haney Community Action Worker I [facility]) 01/26/2023, 8:30 AM documented in this encounter Plan of Treatment Upcoming Encounters Date Type Specialty Care Team Description 03/28/2023 Office Visit Family Medicine Alexy Al MD [address] [place] [address] Health Maintenance Due Date Last Done Comments [...] D LEVEL ONCE IN A LIFETIME-USE SMARTSET# [id number] Completed 01/27/2021, 08/21/2017, 03/08/2017, Additional history exists GARDASIL-HPV IMMUNIZATION SERIES Aged Out No longer eligible based on patient's age to complete this topic MENINGOCOCCAL (MENACTRA/MENVEO) Aged Out No longer eligible based on patient's age to complete this topic documented as of this encounter Medical Devices Implanted Type Area Counter Pocket Trimmer Device Identifier Shelf Expiration Date Model / Serial / Lot Stent Graft [id number] - [id number] - [id number] Implanted:Qty: 1 on 05/09/2022 by Cedrick Phillips MD at [place] [facility] [place] : MARTIN [id number] 02/11/2025 [id number] 3 / [id number] / [id number] documented as of this encounter Advance Directives Latest Code Status on File Code Status Date Activated Date Inactivated Comments No Code 05/08/2022 11:42 AM 05/11/2022 7:56 PM Th is order reflects the patients wishes and were consensually agreed upon. Question Answer Comments Discussion of Advance Directives occurred with: Patient Care Teams Investment Advisor Relationship Specialty Start Date End Date Alexy Al MD [address] [place] [address] PCP - General 07/29/08 documented as of this encounter
--- OUTSIDE RECORDS SUMMARY | 2023-04-24 19:57 | External Medical Summary | Summary of Care ---
Author Name Unknown Organization [facility] Address [address] [place] [address] Phone [phone] Care Team Providers Care Supervisor Dry Paste Name Role Phone Alexy Al MD Primary Care Provider +1- [phone] Reason for Visit * Reason Onset Date Comments Left Message 02/01/2023 Encounter Details Date Type Department Care Team Description 02/01/[address] [facility] [address] [place] [address] Dahiana Arredondo, LIBBY [address] [place] [address] Left Message Allergies No known active allergiesdocumented as of this encounter (statuses as of 02/01/2023) Medications Medication Sig Dispensed Refills Start Date [...] 1 08/31/2022 4 Active OneTouch Delica Plus [id number] USE TO TEST BLOOD SUGAR TWICE DAILY [...] as of this encounter (statuses as of 02/01/2023) Active Problems Problem Noted Date Superior mesenteric [...] pursue repeat CT. 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 pectoris 05/08/2022 Last Assessment [...] as of this encounter (statuses as of 02/01/2023) Resolved Problems Problem Noted Date Resolved Date [...] as of this encounter (statuses as of 02/01/2023) Immunizations Name Administration Dates Next Due COVID-19 [...] Telephone Encounter - Dahiana Arredondo RN - 02/01/2023 3:10 PM EDT Follow-up Routine Attempted Phone Call First Attempt Call Outcome Left Voicemail/Message Plan To attempt another outreach Dahiana Arredondo RN documented in this encounter Plan of Treatment Upcoming Encounters Date Type Specialty Care Team Description 03/28/2023 Office Visit Family Medicine Alexy Al MD [address] [place] [address] Health Maintenance Due Date Last [...] D LEVEL ONCE IN A LIFETIME-USE SMARTSET# [id number] Completed 01/27/2021, 08/21/2017, 03/08/2017, Additional history exists GARDASIL-HPV IMMUNIZATION SERIES Aged Out No longer eligible based on patient's age to complete this topic MENINGOCOCCAL (MENACTRA/MENVEO) Aged Out No longer eligible based on patient's age to complete this topic documented as of this encounter Medical Devices Implanted Type Area Tooling Engineer Device Identifier Shelf Expiration Date Model / Serial / Lot Stent Graft [id number] - [id number] - [id number] Implanted:Qty: 1 on 05/09/2022 by Cedrick Phillips MD at [place] [facility] [place] : MARTIN [id number] 02/11/2025 [id number] 3 / [id number] / [id number] documented as of this encounter Advance Directives Latest Code Status on File Code Status Date Activated Date Inactivated Comments No Code 05/08/2022 11:42 AM 05/11/2022 7:56 PM Th is order reflects the patients wishes and were consensually agreed upon. Question Answer Comments Discussion of Advance Directives occurred with: Patient Care Teams Supervisor Dry Paste Relationship Specialty Start Date End Date Alexy Al MD [address] [place] [address] PCP - General 07/29/08 documented as of this encounter
--- OUTSIDE RECORDS SUMMARY | 2023-04-24 19:57 | External Medical Summary | Summary of Care ---
Author Name Unknown Organization [facility] Address [address] [place] [address] Phone [phone] Care Team Providers Care Rigging Loft Mechanic Name Role Phone Alexy Al MD Primary Care Provider +1- [phone] Reason for Visit * Reason Onset Date Comments Med Request 02/22/2023 Med List Encounter Details Date Type Department Care Team Description 02/22/2023 Telephone [facility] [address] [place] [address] Alexy Al MD [address] [place] [address] Med Request (Med List/) Allergies No known active allergiesdocumented as of this encounter (statuses as of 02/22/2023) Medications Medication Sig Dispensed Refills Start Date [...] 1 08/31/2022 4 Active OneTouch Delica Plus Mmplfm64N USE TO TEST BLOOD SUGAR TWICE DAILY 400 Each 08/31/2022 4 Active NovoLIN 70/30 (70-30) 100 UNIT/ML Subcutaneous SuspensionIndicatio ns:Type 2 diabetes mellitus with hemoglobin A1c goal of less than 8.0% (HCC) INJECT 25 UNITS SUBCUTANEOUSLY BEFORE BREAKFAST AND INJECT 10 UNITS BEFORE SUPPER. 40 mL 1 08/31/2022 4 Active Cinacalcet HCl 30 [...] TABLET 12 Tablet 1 02/16/2023 4 Active documented as of this encounter (statuses as of 02/22/2023) Active Problems Problem Noted Date Superior mesenteric [...] pursue repeat CT. 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 Thank You, Oneal Arias, Pharm-D Clinical Pharmacist [facility] ([facility] (Formerly [employer]) [phone] 02/22/2023, 3:00 PM * Telephone Encounter - Vika Gilliam CPhT - 02/22/2023 2:23 PM EDT [facility] calling to request copy of pt's current medications. Please fax copy of active med list to [phone] at your earliest convenience. Thank you, Sabrina Dunham 1 [address] Dyer [facility] ([facility]) (formerly [employer]) 02/22/2023, 2:25 PM documented in this encounter Plan of Treatment Upcoming Encounters Date Type Specialty Care Team Description 03/28/2023 Office Visit Family Medicine Alexy Al MD [address] [place] [address] Health Maintenance Due Date Last Done Comments [...] D LEVEL ONCE IN A LIFETIME-USE SMARTSET# [id number] Completed 01/27/2021, 08/21/2017, 03/08/2017, Additional history exists GARDASIL-HPV IMMUNIZATION SERIES Aged Out No longer eligible based on patient's age to complete this topic MENINGOCOCCAL (MENACTRA/MENVEO) Aged Out No longer eligible based on patient's age to complete this topic documented as of this encounter Medical Devices Implanted Type Area Administrative Secretary Device Identifier Shelf Expiration Date Model / Serial / Lot Stent Graft [id number] - [id number] - [id number] Implanted:Qty: 1 on 05/09/2022 by Cedrick Phillips MD [place] [facility] [place] [id number] 02/11/2025 [id number] 3 / [id number] / [id number] documented as of this encounter Advance Directives Latest Code Status on File Code Status Date Activated Date Inactivated Comments No Code 05/08/2022 11:42 AM 05/11/2022 7:56 PM Th is order reflects the patients wishes and were consensually agreed upon. Question Answer Comments Discussion of Advance Directives occurred with: Patient Care Teams Rigging Loft Mechanic Relationship Specialty Start Date End Date Alexy Al MD [address] [place] [address] PCP - General 07/29/08 documented as of this encounter
--- OUTSIDE RECORDS SUMMARY | 2023-04-24 19:58 | External Medical Summary | Summary of Care ---
Author Name Unknown Organization [facility] Address [address] [place] [address] Phone [phone] Care Team Providers Care Auto Battery Builder Name Role Phone Alexy Al MD Primary Care Provider +1- [phone] Reason for Visit * Reason Onset Date Comments Weight Check 12/06/2022 Encounter Details Date Type Department Care Team Description 12/06/2022 Medical Records Receptionist Telephone [facility] [address] [place] [address] Dahiana Arredondo, LIBBY [address] [place] [address] Weight Check Allergies No known active allergiesdocumented as of this encounter (statuses as of 12/06/2022) Medications Medication Sig Dispensed Refills Start Date [...] bedtime. Taking once a daily. 0 Active Monoferric 1000 MG/10ML Intravenous Solution (Ferric derisomaltose) Monoferric 1,000mg IV x 1 10 mL 0 05/25/2022 Active Additional Information Patient not taking.Reported on 08/24/2022 Acetaminophen 325 MG Oral Tablet (Tylenol) Take [...] 1 08/31/2022 4 Active OneTouch Delica Plus Ewvpou32V USE TO TEST BLOOD SUGAR TWICE DAILY 400 Each 08/31/2022 4 Active NovoLIN 70/30 (70-30) 100 UNIT/ML Subcutaneous SuspensionIndicatio ns:Type 2 diabetes mellitus with hemoglobin A1c goal of less than 8.0% (HCC) INJECT 25 UNITS SUBCUTANEOUSLY BEFORE BREAKFAST AND INJECT 10 UNITS BEFORE SUPPER. 40 mL 08/31/2022 4 Active Alendronate Sodium 70 MG [...] as of this encounter (statuses as of 12/06/2022) Active Problems Problem Noted Date Superior mesenteric [...] pursue repeat CT. 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 Cota's recommendations Dahiana Arredondo RN * Telephone Encounter - Crescencio Cota MD - 12/06/2022 2:44 PM EDT Patient should take lasix 80 mg daily for three days then return to 60 mg daily. To ED if shortnessof breath. Knee Xray shows arthritis. Can schedule appointment with me for knee injection if interested. Otherwise OTC pain medications and topical voltaren gel is appropriate. Please remind patient to take lasix with her on all trips to prevent heart failure exacerbation. Crescencio Cota MD * Telephone Encounter - Dahiana Arredondo RN - 12/06/2022 1:[address] Cota, Please review below: SITUATION: Patient's weight up from 11/30/22, continues to have knee pain Weight today was 159.7 lgs, was 156.9 lbs on 11/30 BACKGROUND: Recently seen by you, increased Lasix dosage, ordered knee xray ASSESSMENT: Patient denies SOB, has a productive cough, no worse than normal for her Denies LE edema, says she has some abdominal swelling Says she is "peeing a lot", confirms she is taking the Lasix 60 mg daily, however she did not take on 12/03 & 12/04 due to going to [place] for the weekend Patient asking if you could please review her knee xray-also please review patient's recent lab work RECOMMENDATION: Encouraged patient to limit her salt intake, continue to take medication as prescribed Please let me know if you have any additional recommendations Dahiana Arredondo RN [place] [id number] [facility] [address] documented in this encounter Plan of Treatment Upcoming Encounters Date Type Specialty Care Team Description 03/28/2023 Office Visit Family Medicine Alexy Al MD [address] [place] [address] Health Maintenance Due Date Last [...] D LEVEL ONCE IN A LIFETIME-USE SMARTSET# [id number] Completed 01/27/2021, 08/21/2017, 03/08/2017, Additional history exists GARDASIL-HPV IMMUNIZATION SERIES Aged Out No longer eligible based on patient's age to complete this topic MENINGOCOCCAL (MENACTRA/MENVEO) Aged Out No longer eligible based on patient's age to complete this topic documented as of this encounter Medical Devices Implanted Type Area Rv Repairer Device Identifier Shelf Expiration Date Model / Serial / Lot Stent Graft [id number] - [id number] - [id number] Implanted:Qty: 1 on 05/09/2022 by Cedrick Phillips MD [place] [facility] [place]IN [id number] 02/11/2025 [id number] 3 / [id number] / [id number] documented as of this encounter Advance Directives Latest Code Status on File Code Status Date Activated Date Inactivated Comments No Code 05/08/2022 11:42 AM 05/11/2022 7:56 PM Th is order reflects the patients wishes and were consensually agreed upon. Question Answer Comments Discussion of Advance Directives occurred with: Patient Care Teams Auto Battery Builder Relationship Specialty Start Date End Date Alexy Al MD [address] [place] [address] PCP - General 07/29/08 documented as of this encounter
--- OUTSIDE RECORDS SUMMARY | 2023-04-24 19:58 | External Medical Summary ---
Author Name Unknown Address Unknown Organization K01:[facility] [address] [place] [address] Laboratory Report Ordering Provider Test Date Status 12/05/2022 08:17:00 Final Observation Date Value Abnormality Reference (Units ) Status Magnesium 12/05/2022 08:17:00 1.8 1.5-2.6 (m g/dL) Final Performing Location [facility] [address] [place] [address]
--- OUTSIDE RECORDS SUMMARY | 2023-04-24 19:58 | External Medical Summary ---
Author Name Unknown Address Unknown Organization [id number]:LABORATORY [facility] [place] - [address] [place] [address] Laboratory Report Ordering Provider Test Date Status HONG HOWE 12/05/2022 08:17:00 Final Observation Date Value Abnormality Reference (Units ) Status Iron 12/05/2022 08:17:00 18 Below low normal 33-151 (ug/dL) Final Iron-binding capacity 12/05/2022 08:17:00 394 250-425 (ug/dL) Final Transferrin Sat % 12/05/2022 08:17:00 5 Below low normal 15-55 (%) Final Performing Location LABORATORY [facility] [place] - [address] [place] [address]
--- OUTSIDE RECORDS SUMMARY | 2023-04-24 19:58 | External Medical Summary ---
Author Name Unknown Address Unknown Organization [id number]:[place] [facility] [place] [address] [facility] [address] Laboratory Report Ordering Provider Test Date Status CLARK DOMINGUEZ 12/05/2022 08:17:00 Final Observation Date Value Abnormality Reference (Units ) Status HbA1C 12/05/2022 08:17:00 7.4 Above high normal 4. 0-5.6 (%) Final The use of HbA1c to monitor glycemic status is based on normal hemoglobin and HbA composition. This test should not be used in patients with abnormal hemoglobin that affects the half life of the red blood cell or the in vivo glycation rates. Glucose, estimated average 12/05/2022 08:17:00 166 Above high normal <126 (mg/dL) Jose Daniel arriola Performing Location [facility] [place] [address] [facility] [address]
--- OUTSIDE RECORDS SUMMARY | 2023-04-24 19:58 | External Medical Summary ---
Author Name Unknown Address Unknown Organization [id number]:[place] [facility] [place] [address] [place] [address] Laboratory Report Ordering Provider Test Date Status HONG HOWE 12/05/2022 08:17:00 Final Observation Date Value Abnormality Reference (Units ) Status Ferritin 12/05/2022 08:17:00 43 13-150 (ng /mL) Final Postmenopausal women have hi gher ferritin levels than pre-menopausal women. The above reference interval is based on pre-menopausal women. Performing Location LABORATORY [facility] - [address] [place] [address]
--- OUTSIDE RECORDS SUMMARY | 2023-04-24 19:58 | External Medical Summary | Summary of Care ---
Author Name Unknown Organization [facility] Address [address] [facility] [place] [address] Phone [phone] Care Team Providers Care Aircraft Electrical Systems Specialist Name Role Phone Alexy Al MD Primary Care Provider [phone]- [phone] Reason for Visit * Reason Onset Date Comments case management 11/22/2022 Advice 11/22/2022 Encounter Details Date Type Department Care Team Description 11/22/2022 Technician Anatomic Pathology Telephone Family Practice [facility] [address] [facility] [place] [address] Faby Pal, management nurse rn; Advice Allergies No known active allergiesdocumented as of this encounter (statuses as of 11/25/2022) Medications Medication Sig Dispensed Refills Start Date [...] Strip 08/31/2022 4 Active OneTouch Delica Plus [id number] USE TO TEST BLOOD SUGAR TWICE DAILY [...] DAILY 100 Tablet 1 08/31/2022 4 Active Furosemide 40 MG Oral Tablet (Lasix) TAKE ONE TABLET BY MOUTH IN THE MORNING 100 Tablet 1 08/31/2022 4 Active Atorvastatin [...] as of this encounter (statuses as of 11/25/2022) Active Problems Problem Noted Date Superior mesenteric [...] pursue repeat CT. Coronary artery disease involving [place] heart without angina pectoris 05/08/2022 Last Assessment [...] as of this encounter (statuses as of 11/25/2022) Resolved Problems Problem Noted Date Resolved Date [...] as of this encounter (statuses as of 11/25/2022) Immunizations Name Administration Dates Next Due COVID-19 [...] Telephone Encounter - Dahiana Arredondo RN - 11/25/2022 1:40 PM EDT Spoke with patient for an update: S: Spoke with patient O: Patient denies SOB, cough or angina Continues to have some swelling to her feet, says her belly feels a little "puffy", improved from earlier in the week Weight today was 154 lbs Patient has noticed that when she only takes Lasix 40mg that she urinates less, started back on the40 mg today Blood sugars have been good Using walker to ambulate, uses the wheelchair at times A: Phone follow up P : Encouraged patient to limit salt intake, keep legs elevated when sitting down Continue daily weights, will re-evaluate patient early next week Dahiana Arredondo RN [address] [address] * Telephone Encounter - ARTHUR Singleton - 11/22/2022 12:17 PM EDT Called patient she is aware and understands message. Pt states that she will call on Monday for an update. * Telephone Encounter - Alexy Al MD - 11/22/2022 11:27 AM EDT Pt can increase the furosemide to 40 mg bid for today, Mon and . Then please call Monday for an update. * Telephone Encounter - Faby Pal RN - 11/22/2022 10:37 AM EDT S: [facility] [place] noticed for weight gain. Was 155/5 lbs yesterday, today is 157 lbs. Called and spokewith patient, whe reports legs are swollen, If she presses on legs there are indentations where finger pressed. She denies any shortness of breath or cough. States "those fluid pills are not working as well". She states she has not drank more fluids than normal, and has not had a change in diet rece ntly. Feels as if she is not voiding as much as she should be. Taking 40mg lasix daily. In the pasthas had to increase diuretic for a few days to get swelling down. O: Phone call follow up A: Alert and oriented, no dyspnea heard during conversation. P: Will message PCP to inquire if increasing diuretic is indicated. documented in this encounter Plan of Treatment Upcoming Encounters Date Type Specialty Care Team Description 11/28/2022 Imaging Radiology 12/05/2022 Laboratory Laboratory [place] [facility] [place] Mobile Home Draw [address] [place] [address] 12/06/2022 Pharmacy Pharmacy Clinic, Anemia [address] [place] [address] 03/28/2023 Office Visit Family Medicine Alexy Al MD [address] [place] [address] Health Maintenance Due Date Last Done Comments Hepatitis B (1 of 3 - Risk 3-dose series) 2000 Zoster Vaccines (2 of 3) 07/30/2015 06/04/2015 DIABETES-FOOT EXAM 03/20/2020 03/20/2019, 1 , 09/05/2016, Additional history exists COVID-19 Vaccine (4 - Pfizer series) 05/05/2021 03/10/2021, 08/27/2020, 08/06/2020 DXA Scan 05/14/2021 05/14/2019, 07/10/2016, 10/23/2014, Additional history exists Albumin/Creatinine Ratio 08/18/2022 022, 10/29/2019, 03/07/2018, Additional history exists DIABETES-EYE EXAM 01/03/2023 01/03/2022, , 2019, Additional history exists Influenza Vaccine (FLU shot) (#1) 2023 03/14/2022, 02/01/2021, 03/05/2020, Additional history exists HbA1c 03/07/2023 09/05/2022, 01/0 01/2023, 03/07/2022, Additional history exists Depression Screening, Annual for Pts 12 and Over 03/14/2023 03/14/2022 B-12 07/04/2023 07/04/2022, 01/0 01/2023, 01/27/2021, Additional history exists GFR 09/06/2023 09/05/2022, 07/13, 07/21/2022, Additional history exists DTaP,Tdap,and Td Vaccines (2 - Td or Tdap) 06/05/2024 06/05/2014 Pneumococcal Vaccine: 65+ Years Completed 06/04/2015, 07/29/2008 VITAMIN D LEVEL ONCE IN A LIFETIME-USE SMARTSET# [id number] Completed 01/27/2021, 08/21/2017, 03/08/2017, Additional history exists GARDASIL-HPV IMMUNIZATION SERIES Aged Out No longer eligible based on patient's age to complete this topic MENINGOCOCCAL (MENACTRA/MENVEO) Aged Out No longer eligible based on patient's age to complete this topic documented as of this encounter Medical Devices Implanted Type Area Alteration Hand Device Identifier Shelf Expiration Date Model / Serial / Lot Stent Graft [id number] - [id number] - [id number] Implanted:Qty: 1 on 05/09/2022 by Cedrick Phillips MD at OR [facility] [place] : MARTIN [id number] 02/11/2025 [id number] / [id number] / [id number] documented as of this encounter Advance Directives Latest Code Status on File Code Status Date Activated Date Inactivated Comments No Code 05/08/2022 11:42 AM 05/11/2022 7:56 PM Th is order reflects the patients wishes and were consensually agreed upon. Question Answer Comments Discussion of Advance Directives occurred with: Patient Care Teams Aircraft Electrical Systems Specialist Relationship Specialty Start Date End Date Alexy Al MD [address], [place] [id number] PCP - General 07/29/08 documented as of this encounter
--- OUTSIDE RECORDS SUMMARY | 2023-04-24 19:58 | External Medical Summary ---
Author Name Unknown Address Unknown Organization K01:[place] [facility] [place] [address] [place] [address] Laboratory Report Ordering Provider Test Date Status CARLEYMARYMORENITA 12/05/2022 08:17:00 Final Observation Date Value Abnormality Reference (Units ) Status Retic, % (auto) 12/05/2022 08:17:00 2.84 Above high normal 0.80-1.90 (%) Final Reticulocytes, Absolute 12/05/2022 08:17:00 84.9 31.3-100.1 (K/uL) Final Reticulocyte fraction, immature 12/05/2022 08:17:00 24.1 Above high normal 2.5-20.6 (%) Final Reticulocyte HGB 12/05/2022 08:17:00 25.3 Below low normal 29.7-37.4 (pg) Final Performing Location [facility] [place] [address] [place] [address]
--- OUTSIDE RECORDS SUMMARY | 2023-04-24 19:58 | External Medical Summary | Summary of Care ---
Author Name Unknown Organization [facility] Address [address] [facility] [place] [address] Phone [phone] Care Team Providers Care Distance Education Teacher Name Role Phone Alexy Al MD Primary Care Provider +1- [phone] Reason for Visit * Reason Onset Date Comments case management 11/22/2022 Advice 11/22/2022 Encounter Details Date Type Department Care Team Description 11/22/2022 Direct Service Professional Telephone Family Practice [facility] [address] [facility] [place] [address] Faby Pal, program management specialist; Advice Allergies No known active allergiesdocumented as [...] Strip 08/31/2022 4 Active OneTouch Delica Plus [id number] USE TO TEST BLOOD SUGAR TWICE DAILY [...] pursue repeat CT. Coronary artery disease involving [place] heart without angina pectoris 05/08/2022 Last Assessment [...] patient early next week Dahiana Arredondo RN [address] [address] * Telephone Encounter - ARTHUR Singleton - [...] RN - 11/22/2022 10:37 AM EDT S: [facility] [place] noticed for weight gain. Was 155/5 [...] 11/28/2022 Imaging Radiology 12/05/2022 Laboratory Laboratory Processing [facility] [place], [facility] Mobile Home Draw [address] [place] [address] 12/06/2022 Pharmacy Pharmacy Clinic, Anemia [address] [place] [address] 03/28/2023 Office Visit Family Medicine Alexy Al MD [address] [place] [address] Health Maintenance Due Date Last Done Comments [...] D LEVEL ONCE IN A LIFETIME-USE SMARTSET# [id number] Completed 01/27/2021, 08/21/2017, 03/08/2017, Additional history exists GARDASIL-HPV IMMUNIZATION SERIES Aged Out No longer eligible based on patient's age to complete this topic MENINGOCOCCAL (MENACTRA/MENVEO) Aged Out No longer eligible based on patient's age to complete this topic documented as of this encounter Medical Devices Implanted Type Area Automotive Service Advisor Device Identifier Shelf Expiration Date Model / Serial / Lot Stent Graft [id number] - [id number] - [id number] Implanted:Qty: 1 on 05/09/2022 by Cedrick Phillips MD at OR [facility] [place] : [place]IN [id number] 02/11/2025 [id number] 3 / [id number] / [id number] documented as of this encounter Advance Directives Latest Code Status on File Code Status Date Activated Date Inactivated Comments No Code 05/08/2022 11:42 AM 05/11/2022 7:56 PM Th is order reflects the patients wishes and were consensually agreed upon. Question Answer Comments Discussion of Advance Directives occurred with: Patient Care Teams Distance Education Teacher Relationship Specialty Start Date End Date Alexy Al MD [address] [place] [address], [place] [phone] PCP - General 07/29/08 documented as of this encounter
--- OUTSIDE RECORDS SUMMARY | 2023-04-24 19:58 | External Medical Summary | Summary of Care ---
Author Name Unknown Organization [facility] Address [address] [facility] [place] [address] Phone [phone] Care Team Providers Care Disaster Director Name Role Phone Alexy Al MD Primary Care Provider +1- [phone] Reason for Visit * Reason Onset Date Comments Appointment 11/29/2022 Encounter Details Date Type Department Care Team Description 11/29/2022 Sales Superintendent Telephone [facility] [address] [place] [address] Dahiana Arredondo, LIBBY [address] [place] [address] Appointment Allergies No known active allergiesdocumented as of this encounter (statuses as of 11/29/2022) Medications Medication Sig Dispensed Refills Start Date [...] DAILY 200 Strip 1 08/31/2022 4 Active MarcelinaTouch Delica Plus [id number] USE TO TEST BLOOD SUGAR TWICE DAILY [...] as of this encounter (statuses as of 11/29/2022) Active Problems Problem Noted Date Superior mesenteric [...] pursue repeat CT. Coronary artery disease involving [place] heart without angina pectoris 05/08/2022 Last Assessment [...] as of this encounter (statuses as of 11/29/2022) Resolved Problems Problem Noted Date Resolved Date [...] as of this encounter (statuses as of 11/29/2022) Immunizations Name Administration Dates Next Due COVID-19 [...] Telephone Encounter - Dahiana Arredondo RN - 11/29/2022 10:29 AM EDT Patient calls in stating that her weight is going up, weight today was 157 lbs, was 155 lbs yesterday, patient also complaining of right knee locking, thinks she needs an xray & orthopedic referral, assisted patient with getting an appointment with Dr. Cota on 11/30/22, will follow Dahiana Arredondo RN documented in this encounter Plan of Treatment Upcoming Encounters Date Type Specialty Care Team Description 11/30/2022 Office Visit Family Medicine Crescencio Cota MD [address] [place] [address] 12/05/2022 Laboratory Laboratory Processing [facility] Mobile Home Draw [address] [place] [address] 12/06/2022 Pharmacy Pharmacy Clinic, Anemia [address] [place] [address] 03/28/2023 Office Visit Family Medicine Alexy Al MD [address] [place], [place] [phone] Health Maintenance Due Date Last Done Comments Hepatitis B (1 of 3 - Risk 3-dose series) 2000 Zoster Vaccines (2 of 3) 07/30/2015 06/04/2015 DIABETES-FOOT EXAM 03/20/2020 03/20/2019, 1 , 09/05/2016, Additional history exists COVID-19 Vaccine (4 - Pfizer series) 05/05/2021 03/10/2021, 08/27/2020, 08/06/2020 DXA Scan 05/14/2021 05/14/2019, 0710/2016, 10/23/2014, Additional history exists Albumin/Creatinine Ratio 08/18/2022 [...] D LEVEL ONCE IN A LIFETIME-USE SMARTSET# [id number] Completed 01/27/2021, 08/21/2017, 03/08/2017, Additional history exists GARDASIL-HPV IMMUNIZATION SERIES Aged Out No longer eligible based on patient's age to complete this topic MENINGOCOCCAL (MENACTRA/MENVEO) Aged Out No longer eligible based on patient's age to complete this topic documented as of this encounter Medical Devices Implanted Type Area Perioperative Nurse Device Identifier Shelf Expiration Date Model / Serial / Lot Stent Graft [id number] - [id number] - [id number] Implanted:Qty: 1 on 05/09/2022 by Cedrick Phillips MD at OR [facility] [place] : [place]ARTIN [id number] 02/11/2025 [id number] 3 / [id number] / [id number] documented as of this encounter Advance Directives Latest Code Status on File Code Status Date Activated Date Inactivated Comments No Code 05/08/2022 11:42 AM 05/11/2022 7:56 PM Th is order reflects the patients wishes and were consensually agreed upon. Question Answer Comments Discussion of Advance Directives occurred with: Patient Care Teams Disaster Director Relationship Specialty Start Date End Date Alexy Al MD [address] [place] [address] PCP - General 07/29/08 documented as of this encounter
--- OUTSIDE RECORDS SUMMARY | 2023-04-24 19:58 | External Medical Summary ---
Author Name Unknown Address Unknown Organization K01:LABORATORY [facility] [place] - [facility] [address] [facility] [address] [facility] [address] Laboratory Report Ordering Provider Test Date Status HONG HOWE 12/05/2022 08:17:00 Final Observation Date Value Abnormality Reference (Units ) Status WBC, Total 12/05/2022 08:17:00 6.02 4.00-10.80 (K/uL) Final RBC 12/05/2022 08:17:00 2.99 3.85-5.15 (M/uL) Final Hemoglobin 12/05/2022 08:17:00 8.1 Below low normal 12.0-15.3 (g/dL) Final HCT 12/05/2022 08:17:00 26.2 Below low normal 36.0-45.2 (%) Final MCV 12/05/2022 08:17:00 87.6 81.5-97.5 (fL) Final MCH 12/05/2022 08:17:00 27.1 27.0-34.0 (pg) Final MCHC 12/05/2022 08:17:00 30.9 32.0-36.0 (g/dL) Final RDW 12/05/2022 08:17:00 16.8 11.5-15.5 (%) Final Platelets 12/05/2022 08:17:00 174 140-400 (K/uL) Final MPV 12/05/2022 08:17:00 11.4 6.6-11.1 (fL) Final Nucleated erythrocytes/100 leukocytes [Ratio] in Blood by Automated count 12/05/2022 08:17:00 0 <=0 (/100 WBCs) Final Performing Location LABORATORY [facility] [place] - [address] [place] [address]
--- OUTSIDE RECORDS SUMMARY | 2023-04-24 19:58 | External Medical Summary | Summary of Care ---
Author Name Unknown Organization [facility] Address [address] [facility] [place] [address] Phone [phone] Care Team Providers Care Cognos Report Developer Name Role Phone Alexy Al MD Primary Care Provider [phone]- [phone] Reason for Visit * Reason Comments Acute Right knee pain-slid es out of joint Encounter Details Date Type Department Care Team Description 11/30/2022 [facility] [address] [place] [address] Crescencio Cota MD [address] [place] [address] Chronic pain of right knee*; Chronic heart failure with preserved ejection fraction (HCC); Non-toxic multinodular goiter Allergies No known active allergiesdocumented as of this encounter (statuses as of 11/30/2022) Medications Medication Sig Dispensed Refills Start Date [...] 1,000mg IV x 1 10 mL 0 3 Active Additional Information Patient not taking.Reported [...] BY MOUTH EVERY MORNING 90 Capsule 1 3 10/11/19 24 Active Insulin Syringe-Needle U-100 30G X 5/16" 1 ML USE TO INJECT INSULIN TWICE DAILY 200 Each 3 08/31/19 24 Active Glucose Blood In Vitro Strip USE TO TEST BLOOD SUGAR TWICE DAILY 200 Strip 3 08/31/19 24 Active OneTouch Delica Plus [id number] USE TO TEST BLOOD SUGAR TWICE DAILY [...] 30 MINUTES AFTER TAKING TABLET 12 Tablet 3 08/31/19 24 Active Cinacalcet HCl 30 [...] the morning. 100 Tablet 1 3 Active Furosemide 40 MG Oral Tablet (Lasix) TAKE ONE TABLET BY MOUTH IN THE MORNING 100 Tablet 1 3 12/01/19 23 Discontinu ed(Refill) documented as of this encounter (statuses as of 11/30/2022) Active Problems Problem Noted Date Superior mesenteric [...] pursue repeat CT. 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 05/08/2022 Last Assessment [...] as of this encounter (statuses as of 11/30/2022) Resolved Problems Problem Noted Date Resolved Date [...] as of this encounter (statuses as of 11/30/2022) Immunizations Name Administration Dates Next Due COVID-19 mRNA, LNP-s, No Pre serve, 2-Dose Series ([facility]) 03/10/2021,08/27/2020,08/06/2020 Pneumococcal Conjugate Vacc, 13 Valent (Prevnar) [...] Sign Reading Time Taken Comments Blood Pressure 110/60 11/30/2022 11:47 AM EDT Pulse 68 11/30/2022 11:47 AM EDT Temperature - - Respiratory Rate 18 11/30/2022 11:4 7 AM EDT Oxygen Saturation 99% 11/30/2022 11: 47 AM EDT Inhaled Oxygen Concentration - - Weight 71.2 kg (156 lb 14.4 oz) 11/30/2022 11:47 AM EDT pt reported Height - - Body Mass Index 27.79 09/15/2022 1:27 PM EDT documented in this encounter Functional Status Functional [...] as of this encounter Progress Notes * Crescencio Cota MD - 11/30/2022 11:52 AM EDT Images from the original note were not included. Assessment and Plan 1. Chronic pain of right knee Suspect osteoarthritis. Discussed potential corticosteroid injection and physical therapy with patient in the office today. She prefers to get an x-ray of the right knee to confirm diagnosis prior toany intervention. This is reasonable. X-ray ordered. - XR KNEE 4 OR MORE VIEWS 2. Chronic heart failure with preserved ejection fraction (HCC) Chronic diastolic heart failure. Patient last listed dry weight in the chart is 170. She is currently fluctuating between 150 and 158 so clearly not applicable at this time. I do believe her renal function can tolerate an increased dose of Lasix and this may allow for her to have a more consistent weight. We will increase to 60 mg daily from 40 mg daily. She will monitor her weight closely over the next 7 days and she will return next week for lab work to monitor renal function and electrolytes. She was already on magnesium supplementation, may need potassium as well. Low threshold to refer to cardiology if weight continues to fluctuate or if symptoms worsen. Consider SGLT2. - Furosemide 40 MG Oral Tablet (Lasix); Take 1.5 Tablets by mouth in the morning. Dispense: 100 Tablet; Refill: 1 - COMPREHENSIVE METABOLIC PANEL; Future - MAGNESIUM; Future 3. Non-toxic multinodular goiter Wrap-Up Follow up as needed. History of Present Illness The patient is an 81 year old female with past medical hisotry of type II diabetes, dyslipidemia, HFpEF, SMA stenosis, HTN, h/o CVA who presents with bilateral lower extremity swelling and chronic knee pain. Patient with worsening bilateral lower extremity swelling. Weight has increased by a proximally half a lb per day of the last week. Did increase 2 lb between the 17th and the 18th. Patient denies chest pain or shortness of breath. She is currently taking Lasix 40 mg daily. She was recently instructed increase her 40 mg daily to 80 mg daily for 3 days which resulted in 2-3 lb weight loss during that time. Patient is very concerned about weight increasing so frequently after short courses of increased dose of Lasix. She is wondering if an increased dose of Lasix overall may provide more consistent relief. She does have history of renal disease related to diabetes, however, her most recent creatinine was 0.7. She does not follow up with Cardiology regularly. Most recent echocardiogram was unchanged from prior in April 2022 during a hospitalization for a GI bleed. Patient also has chronic right knee pain. She reports this goes back to her teenage years when she felt like she had instability in the knee. She is never seen orthopedics for this. No imaging for this. She reports some locking of the knee. Last week she would a fall in the shower as a result of the knee locking. Physical Exam Vitals: 11/30/22 1147 Pulse: 68 Resp: 18 SpO2: 99% BP: 110/60 Physical Exam Physical Exam Vitals reviewed. Constitutional: General: She is not in acute distress. Pulmonary: Effort: Pulmonary effort is normal. No respiratory distress. Musculoskeletal: Comments: 2+ pitting edema to the mid glass bilaterally. Right knee without effusion, erythema, or warmth. Crepitus. Skin: Comments: No weeping or drainage of the legs. Neurological: General: No focal deficit present. Mental Status: She is alert. documented in this encounter Nursing Notes * Leonela Inman LPN - 11/30/2022 11:47 AM EDT The patient has been properly identified by confirmation of name and date of . Chief Complaint Patient presents with Acute Right knee pain-slides out of joint documented in this encounter Plan of Treatment Upcoming Encounters Date Type Specialty Care Team Description 12/05/2022 Laboratory Laboratory Processing [facility] [place] [facility] Mobile Home Draw [address] [place] [address] 12/06/2022 Pharmacy Pharmacy Clinic, Anemia [address] [place] [address] 03/28/2023 Office Visit Family Medicine Alexy Al MD [address] [place] [id number] Scheduled Orders Name Type Priority Associated Diagnoses Orde r Schedule XR KNEE 4 OR MORE VIEWS Medical Imaging Routine Chronic pain of right knee Ordered: 11/30/2022 COMPREHENSIVE METABOLIC PANEL Lab Routine Chronic heart failure with preserved ejection fraction (HCC) Expected: 11/30/2022 (Approximate), Expires: 11/30/2023 MAGNESIUM Lab Routine Chronic heart failure with preserved ejection fraction (HCC) Expected: 11/30/2022 (Approximate), Expires: 11/30/2023 Health Maintenance Due Date Last Done Comments [...] D LEVEL ONCE IN A LIFETIME-USE SMARTSET# [id number] Completed 01/27/2021, 08/21/2017, 03/08/2017, Additional history exists GARDASIL-HPV IMMUNIZATION SERIES Aged Out No longer eligible based on patient's age to complete this topic MENINGOCOCCAL (MENACTRA/MENVEO) Aged Out No longer eligible based on patient's age to complete this topic documented as of this encounter Medical Devices Implanted Type Area Patient Financial Services Specialist Device Identifier Shelf Expiration Date Model / Serial / Lot Stent Graft [id number] - [id number] - [id number] Implanted:Qty: 1 on 05/09/2022 by Cedrick Phillips MD at [place] [facility] [place] : MARTIN [id number] 02/11/2025 [id number] / [id number] / [id number] documented as of this encounter Visit Diagnoses Diagnosis Chronic pain of right knee- Primary Chronic heart failure with preserved ejection fraction (HCC) Non-toxic multinodular goiter Nontoxic multinodular goiter documented in this encounter Advance Directives Latest Code Status on File Code Status Date Activated Date Inactivated Comments No Code 05/08/2022 11:42 AM 05/11/2022 7:56 PM Th is order reflects the patients wishes and were consensually agreed upon. Question Answer Comments Discussion of Advance Directives occurred with: Patient Care Teams Cognos Report Developer Relationship Specialty Start Date End Date Alexy Al MD [address] [place] [address] PCP - General 07/29/08 documented as of this encounter
--- OUTSIDE RECORDS SUMMARY | 2023-04-24 19:58 | External Medical Summary ---
Author Name Unknown Address Unknown Organization K0G:[facility] [address] [place] [address] Laboratory Report Ordering Provider Test Date Status 12/05/2022 08:17:00 Final Observation Date Value Abnormality Reference (Units ) Status BUN 12/05/2022 08:17:00 14 6-20 (mg/dL) Final Creatinine 12/05/2022 08:17:00 0.9 0.5-1.0 (mg/dL) Final Glomerular filtration rate/1.73 sq M.predicted [Volume Rate/Area] in Serum, Plasma or Blood by Creatinine-based formula (CKD-EPI) 12/05/2022 08:17:00 63 >=60 (mL/min) Final eGFR is calculated based on the CKD-EPI 2020 equation SODIUM 12/05/2022 08:17:00 139 135-146 (m mol/L) Final Potassium 12/05/2022 08:17:00 4.3 3.5-5.1 (m mol/L) Final Cl 12/05/2022 08:17:00 102 98-107 (mm ol/L) Final CO2 12/05/2022 08:17:00 24 22-32 (mmo l/L) Final Anion gap 12/05/2022 08:17:00 13 7-15 (mmol /L) Final Glucose 12/05/2022 08:17:00 119 70-120 (mg /dL) Final Albumin 12/05/2022 08:17:00 3.2 Below low normal 3.8 -5.0 (g/dL) Final AST (Aspartate aminotransferase) 12/05/2022 08:17:00 38 Above high normal 10-35 (U/L) Final Alk Phos 12/05/2022 08:17:00 63 35-130 (U/ L) Final Bilirubin, Total 12/05/2022 08:17:00 0.9 <=1 .2 (mg/dL) Final Calcium 12/05/2022 08:17:00 8.6 8.4-10.2 ( mg/dL) Final Protein 12/05/2022 08:17:00 6.6 6.0-8.3 (g /dL) Final ALT (Alanine aminotransferase) 12/05/2022 08:17:00 27 10-35 (U/L) Jose Daniel arriola Performing Location [facility] [address] [facility] [place] [address]
--- OUTSIDE RECORDS SUMMARY | 2023-04-24 19:58 | External Medical Summary ---
Author Name Unknown Address Unknown Organization [id number][facility] [place] [address] [place] [address] Laboratory Report Ordering Provider Test Date Status HONG HOWE 12/05/2022 08:17:00 Final Observation Date Value Abnormality Reference (Units ) Status SYNC LEUKOCYTES IN BLOOD BY AUTOMATED COUNT 12/05/2022 08:17:00 6.02 4.00-10.80 (K/uL) Final Segs 12/05/2022 08:17:00 55.4 40.0-75.0 (%) Final Lymphs % 12/05/2022 08:17:00 27.9 18.0-42.0 (%) Final Monos 12/05/2022 08:17:00 10.6 1.0-11.0 (%) Final Eosinophils 12/05/2022 08:17:00 4.7 0.0-6.0 (%) Final Basos 12/05/2022 08:17:00 1.2 0.0-2.0 (%) Final Immature Granulocyte, Percent 12/05/2022 08:17:00 0.2 0.0-2.0 (%) Final Absolute Segs 12/05/2022 08:17:00 3.34 1.80-7.70 (K/uL) Final Lymphs, absolute 12/05/2022 08:17:00 1.68 1.00-4.80 (K/ul) Final Monos, Abs 12/05/2022 08:17:00 0.64 0.00-1.10 (K/uL) Final Eos, Abs 12/05/2022 08:17:00 0.28 0.00-0.70 (K/uL) Final Basos, Abs 12/05/2022 08:17:00 0.07 0.00-0.20 (K/uL) Final Immature Granulocytes, Number 12/05/2022 08:17:00 0.01 0.00-0.20 (K/uL) Final Performing Location [facility] [place] [address] [facility] [address]
--- OUTSIDE RECORDS SUMMARY | 2023-04-24 19:58 | External Medical Summary | Summary of Care ---
Author Name Unknown Organization [facility] Address [address] [facility] [place] [address] Phone [phone] Care Team Providers Care Corn Grower Name Role Phone Alexy Al MD Primary Care Provider [phone]- [phone] Reason for Visit * Reason Comments case management Encounter Details Date Type Department Care Team Description 11/22/2022 Supervisor FinishingAdult Parole Officer [facility] [address] [facility] [place] [id number] Faby Pal, RN Medical home patient encounter* Allergies No known active allergiesdocumented as of this encounter (statuses as of 11/22/2022) Medications Medication Sig Dispensed Refills Start Date [...] 1 08/31/2022 4 Active OneTouch Delica Plus [id number] USE TO TEST BLOOD SUGAR TWICE DAILY [...] as of this encounter (statuses as of 11/22/2022) Active Problems Problem Noted Date Superior mesenteric [...] pursue repeat CT. Coronary artery disease involving [place] heart without angina pectoris 05/08/2022 Last Assessment [...] as of this encounter (statuses as of 11/22/2022) Resolved Problems Problem Noted Date Resolved Date [...] as of this encounter (statuses as of 11/22/2022) Immunizations Name Administration Dates Next Due COVID-19 [...] as of this encounter Progress Notes * Faby Pal RN - 11/22/2022 10:31 AM EDT CM Progress note documented in this encounter Plan of Treatment Upcoming Encounters Date Type Specialty Care Team Description 11/28/2022 Imaging Radiology 12/05/2022 Laboratory Laboratory Processing [facility] [place] Mobile Home Draw [address] [place] [address] 12/06/2022 Pharmacy Pharmacy Clinic, Anemia [address] [place] [address] 03/28/2023 Office Visit Family Medicine Alexy Al MD [address] [place] [address] Health Maintenance Due Date Last Done Comments B-12 1958 Hepatitis B (1 of 3 - Risk 3-dose series) 2000 Zoster Vaccines (2 of 3) 07/30/2015 06/04/2015 DIABETES-FOOT EXAM 03/20/2020 03/20/2019, 1 , 09/05/2016, Additional history exists COVID-19 Vaccine (4 - Pfizer series) 05/05/2021 03/10/2021, 08/27/2020, 08/06/2020 DXA Scan 05/14/2021 05/14/2019, 11/13, 10/23/2014, Additional history exists Albumin/Creatinine Ratio 08/18/2022 022, 10/29/2019, 03/07/2018, Additional history exists DIABETES-EYE EXAM 01/03/2023 01/03/2022, , 2019, Additional history exists Influenza Vaccine (FLU shot) (#1) 2023 03/14/2022, 02/01/2021, 03/05/2020, Additional history exists HbA1c 03/07/2023 09/05/2022, 01/2023, 03/07/2022, Additional history exists Depression Screening, Annual for Pts 12 and Over 03/14/2023 03/14/2022 GFR 09/06/2023 09/05/2022, 07/13, 07/21/2022, Additional history exists DTaP,Tdap,and Td Vaccines (2 - Td or Tdap) 06/05/2024 06/05/2014 Pneumococcal Vaccine: 65+ Years Completed 06/04/2015, 07/29/2008 VITAMIN D LEVEL ONCE IN A LIFETIME-USE SMARTSET# [id number] Completed 01/27/2021, 08/21/2017, 03/08/2017, Additional history exists GARDASIL-HPV IMMUNIZATION SERIES Aged Out No longer eligible based on patient's age to complete this topic MENINGOCOCCAL (MENACTRA/MENVEO) Aged Out No longer eligible based on patient's age to complete this topic documented as of this encounter Medical Devices Implanted Type Area Rural Electrification Engineer Device Identifier Shelf Expiration Date Model / Serial / Lot Stent Graft [id number] - [id number] - [id number] Implanted:Qty: 1 on 05/09/2022 by Cedrick Phillips MD [place] [facility] [place]ARTIN [id number] 02/11/2025 [id number] 3 / [id number] / [id number] documented as of this encounter Visit Diagnoses Diagnosis Medical home patient encounter- Primary Other specified examination documented in this encounter Advance Directives Latest Code Status on File Code Status Date Activated Date Inactivated Comments No Code 05/08/2022 11:42 AM 05/11/2022 7:56 PM Th is order reflects the patients wishes and were consensually agreed upon. Question Answer Comments Discussion of Advance Directives occurred with: Patient Care Teams Corn Grower Relationship Specialty Start Date End Date Alexy Al MD [address], [place] [id number] PCP - General 07/29/08 documented as of this encounter
[2023-04-24] MEDS ORDERED: LANTUS PER UNIT CHARGE SQ SCH (21:00)
[2023-04-24] MEDS ORDERED: PANTOprazole 40 MG in SYRINGE 0 ML IV SCH (21:00)
[2023-04-24] MEDS: ATORVASTATIN 40 MG TAB PO SCH (22:56)
[2023-04-24] MEDS: METOPROLOL TARTRATE 25 MG TAB PO SCH (22:56)
[2023-04-25] MEDS: INSULIN ASPART PER UNIT CHARGE SC SCH ×4 (00:31→18:10)
[2023-04-25 06:30] LABS: Albumin Level 2.5 gm/dl (3.4-5.0); BUN Creatinine Ratio 31.7 (10-20); Bilirubin,Total 0.7 mg/dl (0.2-1.0); Calcium 7.7 mg/dl (8.6-10.3); Creatinine Clr Calc Pharmacy 41.1 ml/min; Est GFR (Non-African American) 51.8 ml/min; Globulin 2.5 gm/dl (2.5-4.0); Potassium 4.4 mmol/L (3.5-5.1)
--- NOTE | 2023-04-25 07:08 | Hospitalist Progress Note ---
Date of Service April 25, 2023 Assessment & Plan (1) GI bleed: (2) Colitis: (3) History of ischemic colitis: (4) Hepatic cirrhosis: (5) Chronic heart failure with preserved ejection fraction (HFpEF): (6) DM type 2 (diabetes mellitus, type 2): (7) GERD (gastroesophageal reflux disease): (8) HTN (hypertension): Plan Ms. Russell is an 81 year old female with past medical history of type II diabetes, dyslipidemia, HFpEF, SMA stenosis with stent placement, HTN, and h/o C VA who was admitted on 04/24 for concerns of GIB. Patient reported a large bowel movement with blood the morning of 04/24. Previously diagnosed with ischemic colitis marked by admission to [facility] 05/08/22 in which she was transferred to [facility] same day status post SMA stent placement for 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 under the care of Dr. Iverson. Patient does take Plavix daily. No other blood thinners. States otherwise had been feeling well the last few days. No medications prior to arrival. Patient was due for mesenteric duplex with carotid duplex scan this week 2022. Abdominal aortic ectasia noted on CTA 2021 2.5 cm. In the ED 1 dose of Protonix was administered; abdominal pelvis CT results as follows: Bilateral pulmonary lesions as above. These were also present on the 04/27/2022 examination, and the subsolid lesion in the right lower lobe is increasingly conspicuous from previous. These are suspicious for low-grade pulmonary neoplasms. Follow-up with pulmonology is recommended. 2. No acute infectious or inflammatory findings are identified in the abdomen or pelvis. 3. Cirrhotic liver morphology. 4. Esophageal varices, perigastric varices, and a splenorenal shunt indicate portal hypertension. 5. Large calcified structures in the right upper quadrant favor dropped gallstones. There is also likely a gallstone within a hernia in the right ventral abdominal wall. These are unchanged from previous. 6. Colonic diverticulosis without CT evidence of acute diverticulitis. 7. An 8.4 cm simple cystic structure in the right adnexa is likely related to right ovary is similar to previous. This is pathologically indeterminate but abnormal in this age group. 8. Bilateral nephrolithiasis. On the morning of 04/25, patient with ongoing GIB requiring 1 UPRBCs. EGD revealed no sign of bleeding; however, concern for LGIB remains. Plan for NM scan to assess with low threshold to transfer #Acute GI bleed #Acute on Chronic Iron deficiency anemia Known portal htn, diverticulosis, varices; multiple potential etiologies Hgb 8.5, now 6.5 this am FOBT + in ED Continue NPO EGD negative for upper GIB Pending stat NM scan Potential for transfer contingent on above -Trend BMP q8 h, transfer <7 or symptomatic #Ischemic colitis SMA stent, arterial duplex 05/2022 patent 05/08/2022 status post SMA stent with 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 Discharged with DAPT Holding DAPT 2/2 ongoing bleeding #Cirrhosis #Portal hypertensive gastropathy and varices Cirrhotic morphology noted on prior imaging with small volume ascites (05/2022) - History of decompensation: no - Last EGD 04/25: Grade II esophageal varices - PSE: no evidence of HE on exam, ctm - Ascites: no trace, low suspicion of SBP - EV/PHTN: concern for GIB, continue CTX and follow up GI recommendations - HRS: Cr at baseline, no signs of HRS -PPI BID IV, trend H/H - GI consult -Bleeding not found on EGD -NM scan for brisk bleed, transfuse, likely transfer #HFpEF Chronic stable Takes Lasix 60 mg daily;hold for now given bleed and soft BP Most recent ECHO 05/05: EF > 70%, [id number], No MR, mild mitral stenosis #Chronic Hypomagnesemia: Replace and trend #Insulin-dependent DM2: Chronic stable Takes metformin; hold while inpatient Take 70/30; order ACHS SSI while inpatient Glycemic pharmacy consult placed #Prior CVA 02/03; does not follow with neuro No residual effects On Plavix; hold for now given bleed risk #HTN : Takes losartan and metoprolol; hold for now given bleeding and lower bp Disposition: PCP: Dr. Al Code Status: DNR/DNI VTE Prophylaxis: Teds and SCDs for now Admission and Anticipated Discharge Date Admission Date: April 24, 2023 Subjective Reports on going bloody output from rectum. Denies abdominal pain or other symptoms, no postprandial pain or concerns. Denies hemoptysis or recent history of bleeding in the last year Physical Exam Constitutional: WD/WN, vitals as above Respiratory: normal respiratory effort, lungs clear to auscultation Cardiovascular: tachycardic Gastrointestinal (Abdomen): normal bowel sounds, soft, nontender, no hepatosplenomegaly Results & Data Results & Data Vital Signs (Past 12 Hours) Vital Signs Temp Pulse Pulse Resp BP Pulse Ox O2 Del Method 04/25/23 03:00 36.6 C 100 H 14 100/58 L 96 Room Air 04/24/23 23:04 100 H 04/24/23 23:00 36.6 C 96 H 14 97/59 L 95 Room Air 04/24/23 20:29 36.6 C 90 16 129/63 100 Room Air 04/24/23 19:30 85 18 106/57 L 94 Room Air Laboratory Results Short CBC 04/24/23 04/25/23 Range/Units 11:50 05:38 WBC 7.18 8.15 (4.8-10.8) K/ul Hgb 8.5 L 6.5 L* (12.0-16.0) g/dl Hct 26.8 L 19.8 L* (37.0-47.0) % Plt Count 129 L 116 L (130-400) K/uL BMP 04/24/23 04/25/23 11:50 05:38 Sodium 136 140 Potassium 5.0 4.4 Chloride 102 106 Carbon Dioxide 19 L 28 BUN 17 32 H Creatinine 0.94 1.01 Glucose 157 H 179 H Calcium 7.7 L 7.7 L Cardiac Enzymes 04/24/23 Range/Units 14:35 Total Creatine Kinase 87 (26-192) U/L Liver Function 04/24/23 04/25/23 Range/Units 11:50 05:38 Total Bilirubin 1.1 H 0.7 (0.2-1.0) mg/dl Direct Bilirubin 0.3 H (0-0.2) mg/dl AST 35 30 (13-39) U/L ALT 23 21 (7-52) U/L Alkaline Phosphatase 48 39 (34-104) U/L Albumin 2.7 L 2.5 L (3.4-5.0) gm/dl Medications Administered Home Medications Medication Instructions Recorded Confirmed Last Taken alendronate 70 mg tablet 70 mg PO WK 01/22/22 04/24/23 08/25/22 08:00 biotin 1 mg tablet 1 mg PO DAILY 01/22/22 04/24/23 09/24/22 cinacalcet 30 mg tablet (Sensipar) 30 mg PO QAM 01/22/22 04/24/23 09/24/22 glucosamine-chondroitin 250 mg-200 1 tab PO DAILY 01/22/22 04/24/23 09/24/22 mg tablet (Osteo Bi-Flex) insulin human U-100 NPH-regulr See Rx Instructions .Route .COMPLEX 01/22/22 04/24/23 09/24/22 70-30 mix 100 unit/mL subcutaneous susp (Novolin 70/30 U-100 Insulin) losartan 25 mg tablet 25 mg PO QAM 01/22/22 04/24/23 09/24/22 metformin 1,000 mg tablet 1,000 mg PO BID 01/22/22 04/24/23 09/24/22 vitamin B complex 1 tab PO DAILY 01/22/22 04/24/23 09/24/22 magnesium oxide 400 mg (241.3 mg 400 mg PO DAILY #60 tabs 01/29/22 04/24/23 09/24/22 magnesium) tablet metoprolol tartrate 25 mg tablet 12.5 mg (1/2 x 25 mg) PO BID #30 01/29/22 04/24/23 09/24/22 tabs atorvastatin 40 mg tablet 40 mg PO QPM 08/19/22 04/24/23 09/24/22 furosemide 40 mg tablet (Lasix) 40 mg PO QAM 08/19/22 04/24/23 09/24/22 pantoprazole 40 mg tablet,delayed 40 mg PO QAM 08/19/22 04/24/23 09/24/22 release acetaminophen 325 mg tablet 650 mg PO DIRECTED PRN Pain 09/25/22 04/24/23 Unknown (Tylenol) clopidogrel 75 mg tablet (Plavix) 75 mg PO DAILY 09/25/22 04/24/23 09/24/22 epinephrine 0.3 mg/0.3 mL 0.3 mg IM DIRECTED PRN Allergic 09/25/22 04/24/23 Unknown injection, auto-injector (EpiPen) Reaction iron,carbonyl 65 mg-vitamin C 125 1 tab PO QDD 09/25/22 04/24/23 09/24/22 mg tablet,delayed release (Vitron-C) melatonin 10 mg tablet 10 mg PO HS 09/25/22 04/24/23 09/24/22 whcxdjxwzpzf-igjrxisg-cnndyr tablet 1 tab PO DAILY 09/25/22 04/24/23 09/24/22 Active Medications Generic Name Dose Route Start Last Admin Trade Name Estella PRSherry Reason Stop Dose Admin Atorvastatin Calcium 40 mg 04/24/23 21:00 04/24/23 22:56 Atorvastatin 40 Mg Tab PO 05/24/23 20:59 Not Given QPM DESIREE Pantoprazole Sodium 40 mg/ 10 mls @ 5 mls/min 04/24/23 21:00 04/24/23 20:52 Syringe IV 05/24/23 20:59 5 mls/min BID DESIREE Administration Insulin Aspart 0 units 04/24/23 15:00 04/25/23 06:01 Insulin Aspart Per Unit Charge SC 05/24/23 14:59 2 units Q6 DESIREE Administration Insulin Glargine 0 units 04/24/23 21:00 04/24/23 21:47 Lantus Per Unit Charge SQ 05/24/23 20:59 7 units BID DESIREE Administration Protocol Metoprolol Tartrate 12.5 mg 04/24/23 21:00 04/24/23 22:56 Metoprolol Tartrate 25 Mg Tab PO 05/24/23 20:59 Not Given BID DESIREE
[2023-04-25 07:14] LABS: Hematocrit (blood only) 19.8 % (37.0-47.0); Hemoglobin 6.5 g/dl (12.0-16.0); Mean Corpuscular Hemoglobin 25.8 pg (25.0-34.0); Mean Corpuscular Hgb Conc 32.8 g/dL (32.0-36.0); Mean Corpuscular Volume 78.6 fL (80.0-100.0); Mean Platelet Volume 12.2 fL (9.4-12.4); Platelet Count 116 K/uL (130-400); RDW Coefficient of Variation 22.9 % (11.5-14.5); RDW Standard Deviation 64.4 fL (36.4-46.3); Red Blood Count 2.52 M/uL (4.20-5.40); White Blood Count 8.15 K/ul (4.8-10.8)
[2023-04-25] MEDS ORDERED: SODIUM CHLORIDE 0.9% 250 ML IV PRN ×2 (07:22→12:33)
[2023-04-25 07:35] LABS: Magnesium 1.8 mg/dl (1.7-2.4)
[2023-04-25 07:43] LABS: Estimated Average Glucose 166 mg/dl; Hemoglobin A1C 7.4 % (4.5-5.6)
[2023-04-25] MEDS ORDERED: STAT IV/IM STA ×2 (08:43→12:33)
[2023-04-25] MEDS ORDERED: OCTREOTIDE ACETATE 100 MCG/ML VIAL SQ STA (08:43)
--- NOTE | 2023-04-25 08:43 | Gastrointestinal Consultation ---
Date of Consultation April 25, 2023 Assessment & Plan (1) GI bleed: 82 year old female with type II diabetes, dyslipidemia, HFpEF, ischemic colitis, SMA stenosis with stent placement, HTN, and h/o CVA on Plavix who is admitted with melena and now BRBPR, drop in HGB to 6.5 s/p 1 unit of RBCs this AM, BUN 32. DDX: brisk upper GI bleed vs lower GI bleeding. Maintain NPO status Start IV PPI bolus/drip Start IV octreotide bolus/drip Trend H&H Transfuse PRN per primary team Monitor and document GI output Hold Plavix No NSAIDs ETOH withdrawal protocol Tentative plan for EGD than consider colonoscopy if need be. We appreciate assistance in the management of any serological abnormality and corrections to include: hemoglobin >7, INR <2, platelets >50,000, potassium levels >3.5 but <5.3, and sodium levels within 5 points of the reference range prior to endoscopic evaluation. Thank you for allowing us to participate in the care of this patient. Please call with any acute changes, questions or concerns. Please see addendum below with additional recommendation from my supervising physician. Supervising Physician Co-Signing Physician Notes I have personally seen and examined the patient with MELISSA Edwards. Her note reflects my exam and findings. I agree with her impression and plan. Patient has history of lower GI bleeding and certainly this is in the differential diagnosis however given her history of liver disease an upper endoscopy would be helpful for localization of bleeding source. Unclear at this point if this patient would be best served at a institution with interventional radiology and/or vascular surgery. Francisco Hargrove. History of Present Illness Reason for Consultation: GI bleed Requesting Physician: Petr Attending Physician: Zuly Humphreys MD History of Present Illness 82 year old female with history of type II diabetes, dyslipidemia, HFpEF, ischemic colitis, SMA stenosis with stent placement, HTN, and h/o CVA admitted through the ED with GI bleeding. Pt was seen and evaluated, chart reviewed. Suggests symptoms started last evening, numerous black stools which later changed to BRBPR. Denies abd pain. No nausea, vomiting. No report of hemeamtesis or coffee ground emesis. No fever, chills, CP, SOB. Uses 1 beer/wine daily No NSAIDs Takes tylenol PRN Had a cold recently, took some cold medications CTAP 2022: Cirrhotic liver morphology. Esophageal varices, perigastric varices, and a splenorenal shunt indicate portal hypertension. Colon 2022: - The examined portion of the terminal ileum appeared normal. - Hemorrhagic, inflamed and ulcerated mucosa in the cecum. Biopsied. - Sigmoid diverticulosis. - One 6 mm polyp in the rectum, removed with a jumbo cold forceps. Resected and retrieved. - The examination was otherwise normal on direct and retroflexion views. EGD: none Allergies Allergy/AdvReac Type Severity Reaction Status Date / Time metals Allergy Intermediate CHEAP Uncoded 04/24/23 15:31 METALS--RASH Home Medications Medication Instructions Recorded Confirmed Type alendronate 70 mg tablet 70 mg PO WK 01/22/22 04/24/23 History biotin 1 mg tablet 1 mg PO DAILY 01/22/22 04/24/23 History cinacalcet 30 mg tablet (Sensipar) 30 mg PO QAM 01/22/22 04/24/23 History glucosamine-chondroitin 250 mg-200 1 tab PO DAILY 01/22/22 04/24/23 History mg tablet (Osteo Bi-Flex) insulin human U-100 NPH-regulr See Rx Instructions .Route .COMPLEX 01/22/22 04/24/23 History 70-30 mix 100 unit/mL subcutaneous susp (Novolin 70/30 U-100 Insulin) losartan 25 mg tablet 25 mg PO QAM 01/22/22 04/24/23 History metformin 1,000 mg tablet 1,000 mg PO BID 01/22/22 04/24/23 History vitamin B complex 1 tab PO DAILY 01/22/22 04/24/23 History magnesium oxide 400 mg (241.3 mg 400 mg PO DAILY #60 tabs 01/29/22 04/24/23 Rx magnesium) tablet metoprolol tartrate 25 mg tablet 12.5 mg (1/2 x 25 mg) PO BID #30 01/29/22 04/24/23 Rx tabs atorvastatin 40 mg tablet 40 mg PO QPM 08/19/22 04/24/23 History furosemide 40 mg tablet (Lasix) 40 mg PO QAM 08/19/22 04/24/23 History pantoprazole 40 mg tablet,delayed 40 mg PO QAM 08/19/22 04/24/23 History release acetaminophen 325 mg tablet 650 mg PO DIRECTED PRN Pain 09/25/22 04/24/23 History (Tylenol) clopidogrel 75 mg tablet (Plavix) 75 mg PO DAILY 09/25/22 04/24/23 History epinephrine 0.3 mg/0.3 mL 0.3 mg IM DIRECTED PRN Allergic 09/25/22 04/24/23 History injection, auto-injector (EpiPen) Reaction iron,carbonyl 65 mg-vitamin C 125 1 tab PO QDD 09/25/22 04/24/23 History mg tablet,delayed release (Vitron-C) melatonin 10 mg tablet 10 mg PO HS 09/25/22 04/24/23 History qqqqbxotzyeu-vzytmslc-lyodyy tablet 1 tab PO DAILY 09/25/22 04/24/23 History Patient History Medical History (Updated 04/24/23 @ 20:03 by MELISSA Jj) Hepatic cirrhosis History of ischemic colitis GI bleed pt unaware CHF (congestive heart failure) Anemia Osteoporosis GERD (gastroesophageal reflux disease) Hyperparathyroidism Hypertension Poor historian Abnormal EKG pt unaware Acute respiratory failure CVA (cerebral vascular accident) Jan 2022 per pt > has some right hand weakness > does not follow with neuro Weakness of right upper extremity s/p CVA, just on occasion Lumbago Other and unspecified hyperlipidemia Type 2 diabetes mellitus without complications Essential (primary) hypertension Coronary atherosclerosis of [place] coronary vessel Acute heart failure with preserved ejection fraction (HFpEF) pt unaware Acute respiratory failure with hypoxia pt unaware Surgical History History of colonoscopy History of endovascular stent graft for abdominal aortic aneurysm unsure if this is exactly what she has, but had done in Apr 2022 at [place] she thinks it was for AAA S/P tonsillectomy S/P hysterectomy S/P appendectomy History of heart artery stent placed 1994 S/P cholecystectomy History of cataract surgery bilat Family History Mother , age 70 of a stroke and congestive heart failure Stroke CHF (congestive heart failure) Father , in his 70s of an [place] Myocardial infarction Social History Smoking Status: Unknown if ever smoked packs per day: 4; Second Hand Exposure: No; Do You Dip or Chew Tobacco: No; Tobacco Cessation Education Requested by Patient: No Hx Alcohol Use: No Hx Substance Use: No Preferred Language: Hungarian Communication Ability: Effective Division Toll Wire Chief Required: No Beliefs That Will Affect Care: None marital status: Current Living Situation: Spouse current occupational status: retired current occupation: Multiple different jobs retiring in her 50s. Other Information That Helps Us Care for You: No Feels Safe at Home: Yes Safety Concerns: Feels Safe At This Time Assistive Devices: None Review of Systems Review of Systems: All systems reviewed & are unremarkable except as noted in HPI & below Physical Exam Constitutional: WD/WN, vitals as above Respiratory: normal respiratory effort, lungs clear to auscultation Cardiovascular: Rate/Rhythm: regular rate Gastrointestinal (Abdomen): normal bowel sounds, soft, nontender, no hepatosplenomegaly Skin: no rashes, warm and dry Results & Data Vital Signs (Past 12 Hours) Vital Signs Temp Pulse Pulse Resp BP BP Pulse Ox 04/25/23 08:25 36.6 C 98 H 100/64 100 04/25/23 08:01 36.6 C 98 H 102/60 100 04/25/23 07:46 98 H 94/45 L 100 04/25/23 07:20 36.6 C 103 H 20 119/70 100 04/25/23 07:16 98 H 04/25/23 03:00 36.6 C 100 H 14 100/58 L 96 04/24/23 23:04 100 H 04/24/23 23:00 36.6 C 96 H 14 97/59 L 95 O2 Del Method O2 Flow Rate 04/25/23 08:25 04/25/23 08:01 04/25/23 07:46 Nasal Cannula 2 04/25/23 07:20 Room Air 04/25/23 07:16 04/25/23 03:00 Room Air 04/24/23 23:04 04/24/23 23:00 Room Air Laboratory Results 04/25/23 04/25/23 04/25/23 Range/Units 05:50 05:38 00:26 WBC 8.15 (4.8-10.8) K/ul RBC 2.52 L (4.20-5.40) M/uL Hgb 6.5 L* (12.0-16.0) g/dl Hct 19.8 L* (37.0-47.0) % MCV 78.6 L (80.0-100.0) fL MCH 25.8 (25.0-34.0) pg MCHC 32.8 (32.0-36.0) g/dL RDW Std Deviation 64.4 H (36.4-46.3) fL RDW Coeff of Vanita 22.9 H (11.5-14.5) % Plt Count 116 L (130-400) K/uL MPV 12.2 (9.4-12.4) fL Immature Gran % (Auto) % Neut % (Auto) % Lymph % (Auto) % [place] % (Auto) % Eos % (Auto) % Baso % (Auto) % Neut # (Auto) (1.40-6.50) K/uL Lymph # (Auto) (1.20-3.40) K/uL [place] # (Auto) (0.11-0.59) K/uL Eos # (Auto) (0.00-0.50) K/uL Baso # (Auto) (0.00-0.20) K/uL Immature Gran # (Auto) (0.01-0.20) K/uL Polychromasia Ovalocytes Echinocytes Acanthocytes (Spur) PT (9.0-12.0) Seconds INR (0.9-1.1) APTT (21-31) Seconds PTT Ratio Sodium 140 (136-145) mmol/L Potassium 4.4 (3.5-5.1) mmol/L Chloride 106 (98-107) mmol/L Carbon Dioxide 28 (21-32) mmol/L Anion Gap 6 (3-11) BUN 32 H (6-23) mg/dl Creatinine 1.01 (0.6-1.2) mg/dl Est Cr Clr Drug Dosing 41.1 ml/min Est GFR ( Amer) 60.0 ml/min Est GFR (Non-Af Amer) 51.8 ml/min BUN/Creatinine Ratio 31.7 H (10-20) Glucose 179 H (70-99(Fasting)) mg/dl POC Glucose 203 H 269 H (70-99) mg/dl Estimat Average Glucose 166 mg/dl Hemoglobin A1c 7.4 H (4.5-5.6) % Calcium 7.7 L (8.6-10.3) mg/dl Ionized Calcium (1.12-1.32) mmol/L Phosphorus (2.5-4.9) mg/dl Magnesium 1.8 (1.7-2.4) mg/dl Total Bilirubin 0.7 (0.2-1.0) mg/dl Direct Bilirubin (0-0.2) mg/dl AST 30 (13-39) U/L ALT 21 (7-52) U/L Alkaline Phosphatase 39 (34-104) U/L Total Creatine Kinase (26-192) U/L Troponin I High Sens (0-14) pg/ml Total Protein 5.0 L (6.0-8.3) gm/dl Albumin 2.5 L (3.4-5.0) gm/dl Globulin 2.5 (2.5-4.0) gm/dl Albumin/Globulin Ratio 1.0 (0.9-2) Lipase (11-82) U/L Blood Type Antibody Screen Crossmatch 04/24/23 04/24/23 04/24/23 Range/Units 20:31 19:12 16:16 WBC (4.8-10.8) K/ul RBC (4.20-5.40) M/uL Hgb (12.0-16.0) g/dl Hct (37.0-47.0) % MCV (80.0-100.0) fL MCH (25.0-34.0) pg MCHC (32.0-36.0) g/dL RDW Std Deviation (36.4-46.3) fL RDW Coeff of Vanita (11.5-14.5) % Plt Count (130-400) K/uL MPV (9.4-12.4) fL Immature Gran % (Auto) % Neut % (Auto) % Lymph % (Auto) % [place] % (Auto) % Eos % (Auto) % Baso % (Auto) % Neut # (Auto) (1.40-6.50) K/uL Lymph # (Auto) (1.20-3.40) K/uL [place] # (Auto) (0.11-0.59) K/uL Eos # (Auto) (0.00-0.50) K/uL Baso # (Auto) (0.00-0.20) K/uL Immature Gran # (Auto) (0.01-0.20) K/uL Polychromasia Ovalocytes Echinocytes Acanthocytes (Spur) PT (9.0-12.0) Seconds INR (0.9-1.1) APTT (21-31) Seconds PTT Ratio Sodium (136-145) mmol/L Potassium (3.5-5.1) mmol/L Chloride (98-107) mmol/L Carbon Dioxide (21-32) mmol/L Anion Gap (3-11) BUN (6-23) mg/dl Creatinine (0.6-1.2) mg/dl Est Cr Clr Drug Dosing ml/min Est GFR ( Amer) ml/min Est GFR (Non-Af Amer) ml/min BUN/Creatinine Ratio (10-20) Glucose (70-99(Fasting)) mg/dl POC Glucose 280 H 292 H (70-99) mg/dl Estimat Average Glucose mg/dl Hemoglobin A1c (4.5-5.6) % Calcium (8.6-10.3) mg/dl Ionized Calcium (1.12-1.32) mmol/L Phosphorus (2.5-4.9) mg/dl Magnesium (1.7-2.4) mg/dl Total Bilirubin (0.2-1.0) mg/dl Direct Bilirubin (0-0.2) mg/dl AST (13-39) U/L ALT (7-52) U/L Alkaline Phosphatase (34-104) U/L Total Creatine Kinase (26-192) U/L Troponin I High Sens (0-14) pg/ml Total Protein (6.0-8.3) gm/dl Albumin (3.4-5.0) gm/dl Globulin (2.5-4.0) gm/dl Albumin/Globulin Ratio (0.9-2) Lipase (11-82) U/L Blood Type A Positive Antibody Screen NEGATIVE Crossmatch See Detail 04/24/23 04/24/23 Range/Units 14:35 11:50 WBC 7.18 (4.8-10.8) K/ul RBC 3.27 L (4.20-5.40) M/uL Hgb 8.5 L (12.0-16.0) g/dl Hct 26.8 L (37.0-47.0) % MCV 82.0 (80.0-100.0) fL MCH 26.0 (25.0-34.0) pg MCHC 31.7 L (32.0-36.0) g/dL RDW Std Deviation 67.2 H (36.4-46.3) fL RDW Coeff of Vanita 22.8 H (11.5-14.5) % Plt Count 129 L (130-400) K/uL MPV 12.2 (9.4-12.4) fL Immature Gran % (Auto) 0.3 % Neut % (Auto) 72.5 % Lymph % (Auto) 16.2 % [place] % (Auto) 9.7 % Eos % (Auto) 0.6 % Baso % (Auto) 0.7 % Neut # (Auto) 5.21 (1.40-6.50) K/uL Lymph # (Auto) 1.16 L (1.20-3.40) K/uL [place] # (Auto) 0.70 H (0.11-0.59) K/uL Eos # (Auto) 0.04 (0.00-0.50) K/uL Baso # (Auto) 0.05 (0.00-0.20) K/uL Immature Gran # (Auto) 0.02 (0.01-0.20) K/uL Polychromasia 1+ Ovalocytes 1+ Echinocytes 1+ Acanthocytes (Spur) 1+ PT 14.9 H (9.0-12.0) Seconds INR 1.4 H (0.9-1.1) APTT 24 (21-31) Seconds PTT Ratio 0.9 Sodium 136 (136-145) mmol/L Potassium 5.0 (3.5-5.1) mmol/L Chloride 102 (98-107) mmol/L Carbon Dioxide 19 L (21-32) mmol/L Anion Gap 15 H (3-11) BUN 17 (6-23) mg/dl Creatinine 0.94 (0.6-1.2) mg/dl Est Cr Clr Drug Dosing 44.6 ml/min Est GFR ( Amer) 65.5 ml/min Est GFR (Non-Af Amer) 56.5 ml/min BUN/Creatinine Ratio 18.1 (10-20) Glucose 157 H (70-99(Fasting)) mg/dl POC Glucose (70-99) mg/dl Estimat Average Glucose mg/dl Hemoglobin A1c (4.5-5.6) % Calcium 7.7 L (8.6-10.3) mg/dl Ionized Calcium 0.97 L (1.12-1.32) mmol/L Phosphorus 3.2 (2.5-4.9) mg/dl Magnesium 1.3 L (1.7-2.4) mg/dl Total Bilirubin 1.1 H (0.2-1.0) mg/dl Direct Bilirubin 0.3 H (0-0.2) mg/dl AST 35 (13-39) U/L ALT 23 (7-52) U/L Alkaline Phosphatase 48 (34-104) U/L Total Creatine Kinase 87 (26-192) U/L Troponin I High Sens 11.1 (0-14) pg/ml Total Protein 5.6 L (6.0-8.3) gm/dl Albumin 2.7 L (3.4-5.0) gm/dl Globulin (2.5-4.0) gm/dl Albumin/Globulin Ratio (0.9-2) Lipase 28 (11-82) U/L Blood Type Antibody Screen Crossmatch
[2023-04-25] MEDS ORDERED: OCTREOTIDE ACETATE 500 MCG in 0.9 % SODIUM CHLORIDE 100 ML IV SCH (09:00)
[2023-04-25] MEDS ORDERED: LOSARTAN POTASSIUM 25 MG TAB PO SCH (09:00)
[2023-04-25] MEDS ORDERED: PANTOprazole 40 MG in DEXTROSE 5% MINI-B 100 ML IV SCH (09:00)
--- NOTE | 2023-04-25 09:10 | Electrocardiogram Report ---
Test Reason : Blood Pressure : / mmHG Vent. Rate : 070 BPM Atrial Rate : 070 BPM P-R Int : 154 ms QRS Dur : 080 ms QT Int : 472 ms P-R-T Axes : 021 044 076 degrees QTc Int : 509 ms Normal sinus rhythm Diffuse Minor Nonspecific T wave abnormality Abnormal ECG When compared with ECG of 27-APR-2022 15:27, Vent. rate has decreased BY 44 BPM Borderline criteria for Anterior infarct are no longer Present Nonspecific ST abnormality no longer present Confirmed by Roosevelt Pereyra ([id number]) on 04/25/2023 9:10:07 AM Referred By: REFERRED SELF Confirmed By:Roosevelt Pereyra
--- NOTE | 2023-04-25 09:16 | Anesthesiology Consultation ---
Date of Service April 25, 2023 Assessment & Plan (1) Encounter for pre-operative examination: Chart Review Chart Review: Acceptable Risk for Surgery and Patient NOT seen in Pre Admission Testing Consults Requested none History Surgery Operation Date: 04/25/23 16:45 Proposed Procedures p Esophagogastroduodenoscopy Dr Emiliano Cummings MD Operation Date: 04/26/23 16:30 Proposed Procedures p Colonoscopy EGD Dr Emiliano Cummings MD Height/Weight Height: 5 ft 3 in Weight: 73.6 kg Allergies Allergy/AdvReac Type Severity Reaction Status Date / Time metals Allergy Intermediate CHEAP Uncoded 04/24/23 15:31 METALS--RASH Medications Home Medications Medication Instructions Recorded Confirmed Last Taken alendronate 70 mg tablet 70 mg PO WK 01/22/22 04/24/23 08/25/22 08:00 biotin 1 mg tablet 1 mg PO DAILY 01/22/22 04/24/23 09/24/22 cinacalcet 30 mg tablet (Sensipar) 30 mg PO QAM 01/22/22 04/24/23 09/24/22 glucosamine-chondroitin 250 mg-200 1 tab PO DAILY 01/22/22 04/24/23 09/24/22 mg tablet (Osteo Bi-Flex) insulin human U-100 NPH-regulr See Rx Instructions .Route .COMPLEX 01/22/22 04/24/23 09/24/22 70-30 mix 100 unit/mL subcutaneous susp (Novolin 70/30 U-100 Insulin) losartan 25 mg tablet 25 mg PO QAM 01/22/22 04/24/23 09/24/22 metformin 1,000 mg tablet 1,000 mg PO BID 01/22/22 04/24/23 09/24/22 vitamin B complex 1 tab PO DAILY 01/22/22 04/24/23 09/24/22 magnesium oxide 400 mg (241.3 mg 400 mg PO DAILY #60 tabs 01/29/22 04/24/23 09/24/22 magnesium) tablet metoprolol tartrate 25 mg tablet 12.5 mg (1/2 x 25 mg) PO BID #30 01/29/22 04/24/23 09/24/22 tabs atorvastatin 40 mg tablet 40 mg PO QPM 08/19/22 04/24/23 09/24/22 furosemide 40 mg tablet (Lasix) 40 mg PO QAM 08/19/22 04/24/23 09/24/22 pantoprazole 40 mg tablet,delayed 40 mg PO QAM 08/19/22 04/24/23 09/24/22 release acetaminophen 325 mg tablet 650 mg PO DIRECTED PRN Pain 09/25/22 04/24/23 Unknown (Tylenol) clopidogrel 75 mg tablet (Plavix) 75 mg PO DAILY 09/25/22 04/24/23 09/24/22 epinephrine 0.3 mg/0.3 mL 0.3 mg IM DIRECTED PRN Allergic 09/25/22 04/24/23 Unknown injection, auto-injector (EpiPen) Reaction iron,carbonyl 65 mg-vitamin C 125 1 tab PO QDD 09/25/22 04/24/23 09/24/22 mg tablet,delayed release (Vitron-C) melatonin 10 mg tablet 10 mg PO HS 09/25/22 04/24/23 09/24/22 xsxdzkglwzoe-ppyfonpc-wkgtzx tablet 1 tab PO DAILY 09/25/22 04/24/23 09/24/22 Active Medications Generic Name Dose Route Start Last Admin Trade Name Freq PRN Reason Stop Dose Admin Atorvastatin Calcium 40 mg 04/24/23 21:00 04/24/23 22:56 Atorvastatin 40 Mg Tab PO 05/24/23 20:59 Not Given QPM [facility] Insulin Aspart 0 units 04/24/23 15:00 04/25/23 06:01 Insulin Aspart Per Unit Charge SC 05/24/23 14:59 2 units Q6 [facility] Administration Insulin Glargine 0 units 04/24/23 21:00 04/24/23 21:47 Lantus Per Unit Charge SQ 05/24/23 20:59 7 units BID [facility] Administration Protocol Metoprolol Tartrate 12.5 mg 04/24/23 21:00 04/24/23 22:56 Metoprolol Tartrate 25 Mg Tab PO 05/24/23 20:59 Not Given BID [facility] Past Medical History Medical History Hepatic cirrhosis History of ischemic colitis GI bleed pt unaware CHF (congestive heart failure) Anemia Osteoporosis GERD (gastroesophageal reflux disease) Hyperparathyroidism Hypertension Poor historian Abnormal EKG pt unaware Acute respiratory failure CVA (cerebral vascular accident) Jan 2022 per pt > has some right hand weakness > does not follow with neuro Weakness of right upper extremity s/p CVA, just on occasion Lumbago Other and unspecified hyperlipidemia Type 2 diabetes mellitus without complications Essential (primary) hypertension Coronary atherosclerosis of [place] coronary vessel Acute heart failure with preserved ejection fraction (HFpEF) pt unaware Acute respiratory failure with hypoxia pt unaware Past Family History Family History Mother , age 70 of a stroke and congestive heart failure Stroke CHF (congestive heart failure) Father , in his 70s of an [place] Myocardial infarction Past Surgical History Surgical History History of colonoscopy History of endovascular stent graft for abdominal aortic aneurysm unsure if this is exactly what she has, but had done in Apr 2022 at [place] she thinks it was for AAA S/P tonsillectomy S/P hysterectomy S/P appendectomy History of heart artery stent placed 1994 S/P cholecystectomy History of cataract surgery bilat Social History Smoking Status: Unknown if ever smoked Do You Dip or Chew Tobacco: No Hx Alcohol Use: No Alcohol type: beer alcohol intake frequency: 0-2 drinks per day Hx Substance Use: No substance use type: does not use Physical Exam Vital Signs Last Vital Signs Temp 98.1 F 04/25/23 08:42 Pulse 100 H 04/25/23 08:42 Resp 18 04/25/23 08:42 BP 128/73 04/25/23 08:42 Pulse Ox 100 04/25/23 08:42 O2 Del Method Nasal Cannula 04/25/23 07:46 O2 Flow Rate 2 04/25/23 08:42 Testing Laboratory Results 04/25/23 05:38 04/25/23 05:38 PT 14.9 Seconds (9.0-12.0) H 04/24/23 11:50 INR 1.4 (0.9-1.1) H 04/24/23 11:50 APTT 24 Seconds (21-31) 04/24/23 11:50 Hemoglobin A1c 7.4 % (4.5-5.6) H 04/25/23 05:38 Blood Type A Positive 04/24/23 16:16 Antibody Screen NEGATIVE 04/24/23 16:16 04/25/23 04/25/23 05:50 00:26 POC Glucose 203 H 269 H Electrocardiogram Date: 04/24/23 Findings: + NSR @ Echocardiogram Date: 04/27/22 EF: 70 LV Function: normal Valvular Disease: + MS (mild)
[2023-04-25] MEDS ORDERED: PROPOFOL IV EMULSION 10 MG/ML 20 ML VIAL IV ONE (09:48)
[2023-04-25] MEDS ORDERED: LIDOCAINE 2% 2 ML VIAL/AMP(20MG/ML) INFIL ONE (09:48)
[2023-04-25] MEDS ORDERED: LANTUS PER UNIT CHARGE SC ONE ×2 (10:30→11:30)
--- NOTE | 2023-04-25 10:42 | GI REPORT ---
Patient Name: Martine Russell Procedure Date: 04/25/2023 9:55 AM Date of : 1940 Admit Type: Inpatient Age: 82 Gender: Female Attending MD: Erich Cummings MD, Procedure: Upper GI endoscopy Providers: Erich Cummings MD Referring MD: Zuly Humphreys Md Indications: Hematochezia Medicines: See the Anesthesia note for documentation of the administered medications Complications: No immediate complications. Estimated Blood Loss: Estimated blood loss: none. Procedure: Pre-Anesthesia Assessment: - Prior to the procedure, a History and Physical was performed, and patient medications, allergies and sensitivities were reviewed. The patient's tolerance of previous anesthesia was reviewed. - The risks and benefits of the procedure and the sedation options and risks were discussed with the patient. All questions were answered and informed consent was obtained. - Patient identification and proposed procedure were verified prior to the procedure by the physician and the nurse. The procedure was verified in the pre-procedure area. - Pre-procedure physical examination revealed no contraindications to sedation. - After reviewing the risks and benefits, the patient was deemed in satisfactory condition to undergo the procedure. After obtaining informed consent, the endoscope was passed under direct vision. Throughout the procedure, the patient's blood pressure, pulse, and oxygen saturations were monitored continuously. The Endoscope was introduced through the mouth, and advanced to the third part of duodenum. The upper GI endoscopy was accomplished without difficulty. The patient tolerated the procedure well. Findings: Grade II varices were found to the mid esophagus. Moderate portal hypertensive gastropathy was found in the gastric body. The examined duodenum was normal. The cardia and gastric fundus were normal on retroflexion. Impression: - Grade II esophageal varices. - Portal hypertensive gastropathy. - No blood seen in stomach. - Normal examined duodenum. - No blood seen in duodenum. - No specimens collected. Recommendation: - Return patient to [facility] for ongoing care. - Bleeding scan for potential LGIB. - If positive, consider transfer for IR intervention. Erich Cummings M.D. Erich Cummings MD 04/25/2023 10:42:01 AM This report has been signed electronically. Note Initiated On: 04/25/2023 9:55 AM Number of Addenda: 0 I attest to the content of the Intraoperative Record and orders documented therein, exceptions below {[id number]}
--- NOTE | 2023-04-25 10:51 | Anesthesiology Progress Note ---
Date of Service April 25, 2023 Anesthesia Post Procedure Vital Signs Vital Signs: Temp Pulse Pulse Resp BP BP Pulse Ox 04/25/23 10:29 98 H 18 116/54 L 100 04/25/23 10:21 98 H 18 116/54 L 100 04/25/23 10:06 99 H 16 122/43 L 100 04/25/23 09:40 99.5 F 93 H 16 110/42 L 100 04/25/23 08:42 99.1 F 94 H 18 145/70 H 99 04/25/23 08:42 98.1 F 100 H 128/73 100 04/25/23 08:35 98.2 F 98 H 116/68 100 04/25/23 08:25 97.9 F 98 H 100/64 100 04/25/23 08:01 97.9 F 98 H 102/60 100 04/25/23 07:46 98 H 94/45 L 100 04/25/23 07:20 97.9 F 103 H 20 119/70 100 04/25/23 07:16 98 H 04/25/23 03:00 97.9 F 100 H 14 100/58 L 96 04/24/23 23:04 100 H 04/24/23 23:00 97.9 F 96 H 14 97/59 L 95 04/24/23 20:29 98 F 90 16 129/63 100 04/24/23 19:30 85 18 106/57 L 94 04/24/23 16:00 91 H 18 118/55 L 97 04/24/23 15:30 86 18 113/50 L 92 04/24/23 15:00 91 04/24/23 14:18 84 16 131/52 L 96 04/24/23 12:18 72 04/24/23 12:17 77 18 133/60 98 04/24/23 11:34 80 28 H 100 04/24/23 11:34 97.9 F 80 28 H 128/64 100 O2 Del Method O2 Flow Rate 04/25/23 10:29 2 04/25/23 10:21 Nasal Cannula 2 04/25/23 10:06 Oxymask 5 04/25/23 09:40 Nasal Cannula 2 04/25/23 08:42 1.5 04/25/23 08:42 2 04/25/23 08:35 2 04/25/23 08:25 04/25/23 08:01 04/25/23 07:46 Nasal Cannula 2 04/25/23 07:20 Room Air 04/25/23 07:16 04/25/23 03:00 Room Air 04/24/23 23:04 04/24/23 23:00 Room Air 04/24/23 20:29 Room Air 04/24/23 19:30 Room Air 04/24/23 16:00 Room Air 04/24/23 15:30 Room Air 04/24/23 15:00 Room Air 04/24/23 14:18 Room Air 04/24/23 12:18 04/24/23 12:17 Room Air 04/24/23 11:34 Room Air 04/24/23 11:34 Room Air Pain Intensity Right Lower Abdomen: Pain Intensity: 3 Transfer of Care Handoff Completed per policy Notes Mental Status: alert / awake / arousable and participated in evaluation Patient Amnestic to Procedure: Yes Nausea / Vomiting: adequately controlled Pain: adequately controlled Airway Patency, RR, SpO2: stable & adequate BP & HR: stable & adequate Hydration State: stable & adequate Anesthetic Complications: no major complications apparent and Pt Satisfied with anesthetic care
[2023-04-25] MEDS: METOPROLOL TARTRATE 25 MG TAB PO SCH ×2 (11:04→21:49)
[2023-04-25 11:23] LABS: Hematocrit (blood only) 23.1 % (37.0-47.0); Hemoglobin 7.7 g/dl (12.0-16.0)
[2023-04-25] MEDS ORDERED: FUROSEMIDE 40 MG/4 ML VIAL IV ONE (12:33)
[2023-04-25] MEDS ORDERED: CALCIUM GLUCONATE 10% 1,000 MG in SODIUM CHLOR 0.9% MINI-B 50 ML IV ONE (13:00)
--- NOTE | 2023-04-25 14:28 | Pharmacy Report ---
Pharmacy Glycemic Short Note 2 - Date of Service April 25, 2023 - Glycemic Short BSG Results (Last 24 hours): 04/24/23 04/24/23 04/25/23 19:12 20:31 00:26 Glucose POC Glucose 292 H 280 H 269 H 04/25/23 04/25/23 04/25/23 05:38 05:50 11:47 Glucose 179 H POC Glucose 203 H 150 H OUTPATIENT ANTIDIABETIC REGIMEN: * Novolin 70/30 25 units qAM, 10 units qPM * metformin 1gm PO BID HbA1C: 7.4% ASSESSMENT: 04/25: * BSGs elevated last evening into this AM: 235-130-995-203mg/dl. Received 7 units of basal and 8 units of bolus insulin yesterday. * NPO this AM for EGD. Lantus was discontinued per nursing by provider. * Continue Novolog q6. Patient is planned for transfer later today. 04/24: * 82 year old female admitted in setting of GIB. History of DM2. Pharmacy consulted to assist with glycemic management while inpatient. * BSG at lunch today, 157mg/dl. Currently NPO. * Basal/bolus insulin initiated. Agree with mild-moderate stress scale Novolog. Scaled Lantus BID based upon BSG while NPO. PLAN FOR INPATIENT GLYCEMIC CONTROL: * Hold outpatient oral diabetes medications * Basal insulin * hold * Bolus insulin * NovoLog per scale ACHS or Q6hrs while NPO * Goal Range: Low 120 mg/dL - High 160 mg/dL * Correction Factor: 25 mg/dL/unit * Nutritional / Prandial insulin per carb ratio of 1 unit per 12 grams CHO consumed
--- NOTE | 2023-04-25 14:59 | Discharge Summary ---
Discharge Summary Date of Service April 25, 2023 Admission HPI Per Admitting Provider The patient is an 81 year old female with past medical history of type II diabetes, dyslipidemia, HFpEF, SMA stenosis with stent placement, HTN, and h/o CVA. Patient notes she awoke this morning and had a large bowel movement with blood. Denies any specific abdominal pain, fevers, nausea, lightheadedness, weakness, recent falls or trauma. 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 Iverson. Patient does take Plavix daily. No other blood thinners. States otherwise had been feeling well the last few days. No medications prior to arrival. Patient was due for mesenteric duplex with carotid duplex scan this week 2022. Abdominal aortic ectasia noted on CTA 2021 2.5 cm No leukocytosis, Hgb 8.5 baseline is 8-9, slight thrombocytopenia platelets 129. Mag 1.3, calcium 7.7. Hemodynamically stable on room air, afebrile and normotensive without tachycardia. In the ED 1 dose of Protonix was administered; abdominal pelvis CT results as follows: Bilateral pulmonary lesions as above. These were also present on the 04/27/2022 examination, and the subsolid lesion in the right lower lobe is increasingly conspicuous from previous. These are suspicious for low-grade pulmonary neoplasms. Follow-up with pulmonology is recommended. 2. No acute infectious or inflammatory findings are identified in the abdomen or pelvis. 3. Cirrhotic liver morphology. 4. Esophageal varices, perigastric varices, and a splenorenal shunt indicate portal hypertension. 5. Large calcified structures in the right upper quadrant favor dropped gallstones. There is also likely a gallstone within a hernia in the right ventral abdominal wall. These are unchanged from previous. 6. Colonic diverticulosis without CT evidence of acute diverticulitis. 7. An 8.4 cm simple cystic structure in the right adnexa is likely related to right ovary is similar to previous. This is pathologically indeterminate but abnormal in this age group. 8. Bilateral nephrolithiasis. Patient does indicate that she is a DNR/DNI. She is in no apparent distress and is normotensive. Will admit for GIB and monitor CBC; suspect may transfuse if < 7.0. Will replace electrolytes and treat with abx due to cirrhosis. Will hold Plavix and other anti-hypertensives. Keep NPO for now await GI Consult. Patient will be admitted for further evaluation and management. Please see A/P for further details. Principal Dx & Hospital Course #1 = Principal Diagnosis (1) GI bleed: (2) Colitis: (3) History of ischemic colitis: (4) Hepatic cirrhosis: (5) Chronic heart failure with preserved ejection fraction (HFpEF): (6) DM type 2 (diabetes mellitus, type 2): (7) GERD (gastroesophageal reflux disease): (8) HTN (hypertension): Plan The patient is an 81 year old female with past medical history of type II diabetes, dyslipidemia, HFpEF, SMA stenosis with stent placement, HTN, and h/o CVA. Patient notes she awoke this morning and had a large bowel movement with blood. Denies any specific abdominal pain, fevers, nausea, lightheadedness, weakness, recent falls or trauma. 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 Iverson. Patient does take Plavix daily. No other blood thinners. States otherwise had been feeling well the last few days. No medications prior to arrival. Patient was due for mesenteric duplex with carotid duplex scan this week 2022. Abdominal aortic ectasia noted on CTA 2021 2.5 cm. No leukocytosis, Hgb 8.5 baseline is 8-9, slight thrombocytopenia platelets 129. Mag 1.3, calcium 7.7. Hemodynamically stable on room air, afebrile and normotensive without tachycardia. In the ED 1 dose of Protonix was administered; abdominal pelvis CT results as follows: Bilateral pulmonary lesions as above. These were also present on the 04/27/2022 examination, and the subsolid lesion in the right lower lobe is increasingly conspicuous from previous. These are suspicious for low-grade pulmonary neoplasms. Follow-up with pulmonology is recommended. 2. No acute infectious or inflammatory findings are identified in the abdomen or pelvis. 3. Cirrhotic liver morphology. 4. Esophageal varices, perigastric varices, and a splenorenal shunt indicate portal hypertension. 5. Large calcified structures in the right upper quadrant favor dropped gallstones. There is also likely a gallstone within a hernia in the right ventral abdominal wall. These are unchanged from previous. 6. Colonic diverticulosis without CT evidence of acute diverticulitis. 7. An 8.4 cm simple cystic structure in the right adnexa is likely related to right ovary is similar to previous. This is pathologically indeterminate but abnormal in this age group. 8. Bilateral nephrolithiasis. Patient does indicate that she is a DNR/DNI. She is in no apparent distress and is normotensive. Will admit for GIB and monitor CBC; suspect may transfuse if < 7.0. Will replace electrolytes and treat with abx due to cirrhosis. Will hold Plavix and other anti-hypertensives. Keep NPO for now await GI Consult. 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 Did not want to pursue Fe+ transfusions previously Hepatic cirrhosis: Acute Start ceftriaxone LFTs normal HFpEF: Chronic stable Takes Lasix 60 mg daily;hold for now given bleed and soft BP Most recent ECHO 05/05: EF > 70%, G1DDX, No MR, mild mitral stenosis Hypomagnesemia: acute Serum Mg+ 1.3; replaced with 2 G; trend lab in AM Insulin-dependent DM2: Chronic stable Takes metformin; hold while inpatient Take 70/30; order ACHS SSI while inpatient Glycemic pharmacy consult placed H.O CVA: 02/03; does not follow with neuro No residual effects On Plavix; hold for now given bleed risk HTN: Takes losartan and metoprolol; hold for now given bleeding and lower bp Disposition: PCP: Dr. Al Code Status: DNR/DNI VTE Prophylaxis: Teds and SCDs for now I spent a total of 87 minutes coordinating, documenting, and providing care for this patient excluding time spent in the performance of separately billed services. All of the aforementioned completed while collaborating with the assigned attending physician for a full treatment plan. Please see their addendum for further details. Updated Medication List Medication Instructions Recorded Confirmed Type alendronate 70 mg tablet 70 mg PO WK 01/22/22 04/24/23 History biotin 1 mg tablet 1 mg PO DAILY 01/22/22 04/24/23 History cinacalcet 30 mg tablet (Sensipar) 30 mg PO QAM 01/22/22 04/24/23 History glucosamine-chondroitin 250 mg-200 1 tab PO DAILY 01/22/22 04/24/23 History mg tablet (Osteo Bi-Flex) insulin human U-100 NPH-regulr See Rx Instructions .Route .COMPLEX 01/22/22 04/24/23 History 70-30 mix 100 unit/mL subcutaneous susp (Novolin 70/30 U-100 Insulin) losartan 25 mg tablet 25 mg PO QAM 01/22/22 04/24/23 History metformin 1,000 mg tablet 1,000 mg PO BID 01/22/22 04/24/23 History vitamin B complex 1 tab PO DAILY 01/22/22 04/24/23 History magnesium oxide 400 mg (241.3 mg 400 mg PO DAILY #60 tabs 01/29/22 04/24/23 Rx magnesium) tablet metoprolol tartrate 25 mg tablet 12.5 mg (1/2 x 25 mg) PO BID #30 01/29/22 04/24/23 Rx tabs atorvastatin 40 mg tablet 40 mg PO QPM 08/19/22 04/24/23 History furosemide 40 mg tablet (Lasix) 40 mg PO QAM 08/19/22 04/24/23 History pantoprazole 40 mg tablet,delayed 40 mg PO QAM 08/19/22 04/24/23 History release acetaminophen 325 mg tablet 650 mg PO DIRECTED PRN Pain 09/25/22 04/24/23 History (Tylenol) clopidogrel 75 mg tablet (Plavix) 75 mg PO DAILY 09/25/22 04/24/23 History epinephrine 0.3 mg/0.3 mL 0.3 mg IM DIRECTED PRN Allergic 09/25/22 04/24/23 History injection, auto-injector (EpiPen) Reaction iron,carbonyl 65 mg-vitamin C 125 1 tab PO QDD 09/25/22 04/24/23 History mg tablet,delayed release (Vitron-C) melatonin 10 mg tablet 10 mg PO HS 09/25/22 04/24/23 History fauhxwjspohc-jtrpzvnt-vkercp tablet 1 tab PO DAILY 09/25/22 04/24/23 History Hospital Stay Data Consultations 04/24/23 13:00 ED Decision to Admit Stat 04/24/23 14:58 Consult Gastroenterology Routine Procedures Performed Operation Date: 04/26/23 16:30 <No data on this case meets the specified criteria> Diagnostic Imagining Performed 04/24/23 13:50 CT Abd and Pelvis [CT abdomen pelvis wo/w con] Routine Pending Results Patient Have Any Pending Studies at Discharge: Yes (NM Bleed Scan ) Discharge Instructions Given to Patient (Per Discharging Provider) Ms. Russell is an 81 year old female with past medical history of type II diabetes, dyslipidemia, HFpEF, SMA stenosis with stent placement, HTN, and h/o CVA who was admitted on 04/24 for concerns of GIB. Patient reported a large bowel movement with blood the morning of 04/24. 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 Iverson. Patient does take Plavix daily. No other blood thinners. States otherwise had been feeling well the last few days. No medications prior to arrival. Patient was due for mesenteric duplex with carotid duplex scan this week 2022. Abdominal aortic ectasia noted on CTA 2021 2.5 cm. In the ED 1 dose of Protonix was administered; abdominal pelvis CT results as follows: Bilateral pulmonary lesions as above. These were also present on the 04/27/2022 examination, and the subsolid lesion in the right lower lobe is increasingly conspicuous from previous. These are suspicious for low-grade pulmonary neoplasms. Follow-up with pulmonology is recommended. 2. No acute infectious or inflammatory findings are identified in the abdomen or pelvis. 3. Cirrhotic liver morphology. 4. Esophageal varices, perigastric varices, and a splenorenal shunt indicate portal hypertension. 5. Large calcified structures in the right upper quadrant favor dropped gallstones. There is also likely a gallstone within a hernia in the right ventral abdominal wall. These are unchanged from previous. 6. Colonic diverticulosis without CT evidence of acute diverticulitis. 7. An 8.4 cm simple cystic structure in the right adnexa is likely related to right ovary is similar to previous. This is pathologically indeterminate but abnormal in this age group. 8. Bilateral nephrolithiasis. On the morning of 04/25, patient with ongoing GIB requiring 1 UPRBCs. EGD revealed no sign of bleeding; however, concern for LGIB remained given over three episodes of large volume blood output per rectum Given tachycardia and relative hypotension, ordered 2 more units to transfuse. Patient undergoing NM bleeding scan and pending transfer to [place]. #Acute GI bleed, c/f lower etiology #Acute on Chronic Iron deficiency anemia Known portal htn, diverticulosis, varices; multiple potential etiologies Given relative brisk nature of bleed, multiple comorbidities, whether it is IR embolization or eval by CRS, these are not available at [facility] Hgb 8.5, now 6.5 this am, 7.7 after repeat transfusion, prior to further bloody output FOBT + in ED Continue NPO EGD negative for upper GIB Pending stat NM scan 2 UPRBCs ordered and transfusing given ongoing bloody output, tachycardia, and relative hypotension -s.p IV lasix x1 40mg #Ischemic colitis SMA stent, arterial duplex 05/2022 patent 05/08/2022 status post SMA stent with 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 Discharged with DAPT Holding DAPT 2/2 ongoing bleeding #Cirrhosis #Portal hypertensive gastropathy and varices Cirrhotic morphology noted on prior imaging with small volume ascites (05/2022) - History of decompensation: no - Last EGD 04/25: Grade II esophageal varices - PSE: no evidence of HE on exam, ctm - Ascites: no trace, low suspicion of SBP - EV/PHTN: concern for GIB, continue CTX and follow up GI recommendations - HRS: Cr at baseline, no signs of HRS -PPI BID IV, trend H/H - GI consult -Bleeding not found on EGD -NM scan for brisk bleed, transfuse, likely transfer #HFpEF Chronic stable Takes Lasix 60 mg daily;hold for now given bleed and soft BP Most recent ECHO 05/05: EF > 70%, G1DDX, No MR, mild mitral stenosis #Osteoporosis -Alendronate on sundays #Chronic Hypomagnesemia: Replace and trend #Insulin-dependent DM2: Chronic stable Takes metformin; hold while inpatient Take 70/30; order ACHS SSI while inpatient Glycemic pharmacy consult placed #Prior CVA 02/03; does not follow with neuro No residual effects On Plavix; hold for now given bleed risk #HTN : Takes losartan and metoprolol; hold for now given bleeding and lower bp NPO since 04/24 DVT with SCDs last plavix am 04/24
[2023-04-25] MEDS ORDERED: cefTRIAXone SODIUM 2,000 MG in DEXTROSE 5 % MINI-B 50 ML IV SCH (16:00)
--- NOTE | 2023-04-25 16:19 | Nuclear Medicine Report ---
TAGGED RED BLOOD CELL GI BLEEDING SCAN CLINICAL HISTORY: Bright red blood per rectum, EGD negative COMPARISON STUDY: CT of the abdomen and pelvis April 24, 2023. TECHNIQUE: Following the IV administration of 24 mCi of technetium 99m UltraTag labeled red blood jovani ls, nuclear bleeding scan was performed. Anterior flow images were obtained every 2 seconds for a tot al 48 seconds. Anterior static images were obtained every 5 minutes for a total of 60 minutes. FINDINGS: There is no evidence for an active GI bleed on this examination. Uptake within the spleen and liver is noted. There may be uptake within the stomach. This may reflect free pertechnetate. IMPRESSION: No evidence for an active GI bleed during this 60 minute study. ACT 112: Negative or not required by law. Electronically signed by: Karson Goddard M.D. 04/25/2023 4:16 PM
--- NOTE | 2023-04-25 21:29 | Communication Note ---
Date of Service: April 25, 2023 Ongoing issues with transport. Transfer confirmed with Dr. Laura Leavitt (hospitalist) but bed assignment delayed. Continue BRBPR despite negative NM scan. Continue to transfuse prn. total 3UPRBC. pending H/H from 1800
[2023-04-25] MEDS: ATORVASTATIN 40 MG TAB PO SCH (21:49)
[2023-04-25 22:55] LABS: Hematocrit (blood only) 33.5 % (37.0-47.0); Hemoglobin 11.3 g/dl (12.0-16.0)
--- NOTE | 2023-05-03 10:54 | Discharge Summary ---
Discharge Summary Date of Service May 03, 2023 Notes For Next Care Provider Medication Changes From Visit Transfered Admission HPI Per Admitting Provider The patient is an 81 year old female with past medical history of type II diabetes, dyslipidemia, HFpEF, SMA stenosis with stent placement, HTN, and h/o CVA. Patient notes she awoke this morning and had a large bowel movement with blood. Denies any specific abdominal pain, fevers, nausea, lightheadedness, weakness, recent falls or trauma. 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 Iverson. Patient does take Plavix daily. No other blood thinners. States otherwise had been feeling well the last few days. No medications prior to arrival. Patient was due for mesenteric duplex with carotid duplex scan this week 2022. Abdominal aortic ectasia noted on CTA 2021 2.5 cm No leukocytosis, Hgb 8.5 baseline is 8-9, slight thrombocytopenia platelets 129. Mag 1.3, calcium 7.7. Hemodynamically stable on room air, afebrile and normoten sive without tachycardia. In the ED 1 dose of Protonix was administered; abdominal pelvis CT results as follows: Bilateral pulmonary lesions as above. These were also present on the 04/27/2022 examination, and the subsolid lesion in the right lower lobe is increasingly conspicuous from previous. These are suspicious for low-grade pulmonary neoplasms. Follow-up with pulmonology is recommended. 2. No acute infectious or inflammatory findings are identified in the abdomen or pelvis. 3. Cirrhotic liver morphology. 4. Esophageal varices, perigastric varices, and a splenorenal shunt indicate portal hypertension. 5. Large calcified structures in the right upper quadrant favor dropped gallstones. There is also likely a gallstone within a hernia in the right ventral abdominal wall. These are unch anged from previous. 6. Colonic diverticulosis without CT evidence of acute diverticulitis. 7. An 8.4 cm simple cystic structure in the right adnexa is likely related to right ovary is similar to previous. This is pathologically indeterminate but abnormal in this age group. 8. Bilateral nephrolithiasis. Patient does indicate that she is a DNR/DNI. She is in no apparent distress and is normotensive. Will admit for GIB and monitor CBC; suspect may transfuse if < 7.0. Will replace electrolytes and treat with abx due to cirrhosis. Will hold Plavix and other anti-hypertensives. Keep NPO for now await GI Consult. Patient will be admitted for further evaluation and management. Please see A/P for further details. Admission Exam Per Admitting Provider Neuro: AAOx4, PERRLA, no aphagia, memory changes, CNII-XII grossly intact HEENT: head normocephalic, moist mucus membranes CV: S1/S2, (-) M/G/R, (-) edema, cap refill < 3 seconds Resp: Lungs CTA in all ardon. On RA GI: Abdomen S/NT/ND, Ax4 bowel sounds, (-) CVA tenderness Musculoskeletal: 5/5 B/L UE strength, 5/5 B/L LE strength. No gait disturbance Skin: (-) rashes , (-) erythema. Psych: euthymic mood Principal Dx & Hospital Course #1 = Principal Diagnosis (1) GI bleed: (2) Colitis: (3) History of ischemic colitis: (4) Hepatic cirrhosis: (5) Chronic heart failure with preserved ejection fraction (HFpEF): (6) DM type 2 (diabetes mellitus, type 2): (7) GERD (gastroesophageal reflux disease): (8) HTN (hypertension): Discharge Exam Constitutional WD/WN, vitals as above Respiratory normal respiratory effort, lungs clear to auscultation Gastrointestinal (Abdomen) normal bowel sounds, soft, nontender, no hepatosplenomegaly Updated Medication List Medication Instructions Recorded Confirmed Type alendronate 70 mg tablet 70 mg PO WK 01/22/22 04/24/23 History biotin 1 mg tablet 1 mg PO DAILY 01/22/22 04/24/23 History cinacalcet 30 mg tablet (Sensipar) 30 mg PO QAM 01/22/22 04/24/23 History glucosamine-chondroitin 250 mg-200 1 tab PO DAILY 01/22/22 04/24/23 History mg tablet (Osteo Bi-Flex) insulin human U-100 NPH-regulr See Rx Instructions .Route .COMPLEX 01/22/22 04/24/23 History 70-30 mix 100 unit/mL subcutaneous susp (Novolin 70/30 U-100 Insulin) losartan 25 mg tablet 25 mg PO QAM 01/22/22 04/24/23 History metformin 1,000 mg tablet 1,000 mg PO BID 01/22/22 04/24/23 History vitamin B complex 1 tab PO DAILY 01/22/22 04/24/23 History magnesium oxide 400 mg (241.3 mg 400 mg PO DAILY #60 tabs 01/29/22 04/24/23 Rx magnesium) tablet metoprolol tartrate 25 mg tablet 12.5 mg (1/2 x 25 mg) PO BID #30 01/29/22 04/24/23 Rx tabs atorvastatin 40 mg tablet 40 mg PO QPM 08/19/22 04/24/23 History furosemide 40 mg tablet (Lasix) 40 mg PO QAM 08/19/22 04/24/23 History pantoprazole 40 mg tablet,delayed 40 mg PO QAM 08/19/22 04/24/23 History release acetaminophen 325 mg tablet 650 mg PO DIRECTED PRN Pain 09/25/22 04/24/23 History (Tylenol) clopidogrel 75 mg tablet (Plavix) 75 mg PO DAILY 09/25/22 04/24/23 History epinephrine 0.3 mg/0.3 mL 0.3 mg IM DIRECTED PRN Allergic 09/25/22 04/24/23 History injection, auto-injector (EpiPen) Reaction iron,carbonyl 65 mg-vitamin C 125 1 tab PO QDD 09/25/22 04/24/23 History mg tablet,delayed release (Vitron-C) melatonin 10 mg tablet 10 mg PO HS 09/25/22 04/24/23 History zasgxepsfome-ythkahap-ehnsup tablet 1 tab PO DAILY 09/25/22 04/24/23 History Hospital Stay Data Consultations 04/24/23 13:00 ED Decision to Admit Stat 04/24/23 14:58 Consult Gastroenterology Routine 04/25/23 15:27 Burn CD for patient Stat Procedures Performed Operation Date: 04/26/23 16:30 <No data on this case meets the specified criteria> Diagnostic Imagining Performed 04/24/23 13:50 CT Abd and Pelvis [CT abdomen pelvis wo/w con] Routine Pending Results Patient Have Any Pending Studies at Discharge: Yes (NM Bleed Scan ) Discharge Instructions Given to Patient (Per Discharging Provider) Ms. Russell is an 81 year old female with past medical history of type II diabetes, dyslipidemia, HFpEF, SMA stenosis with stent placement, HTN, and h/o CVA who was admitted on 04/24 for concerns of GIB. Patient reported a large bowel movement with blood the morning of 04/24. 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 Iverson. Patient does take Plavix daily. No other blood thinners. States otherwise had been feeling well the last few days. No medications prior to arrival. Patient was due for mesenteric duplex with carotid duplex scan this week 2022. Abdominal aortic ectasia noted on CTA 2021 2.5 cm. In the ED 1 dose of Protonix was administered; abdominal pelvis CT results as follows: Bilateral pulmonary lesions as above. These were also present on the 04/27/2022 examination, and the subsolid lesion in the right lower lobe is increasingly conspicuous from previous. These are suspicious for low-grade pulmonary neoplasms. Follow-up with pulmonology is recommended. 2. No acute infectious or inflammatory findings are identified in the abdomen or pelvis. 3. Cirrhotic liver morphology. 4. Esophageal varices, perigastric varices, and a splenorenal shunt indicate portal hypertension. 5. Large calcified structures in the right upper quadrant favor dropped gallstones. There is also likely a gallstone within a hernia in the right ventral abdominal wall. These are unchanged from previous. 6. Colonic diverticulosis without CT evidence of acute diverticulitis. 7. An 8.4 cm simple cystic structure in the right adnexa is likely related to right ovary is similar to previous. This is pathologically indeterminate but abnormal in this age group. 8. Bilateral nephrolithiasis. On the morning of 04/25, patient with ongoing GIB requiring 1 UPRBCs. EGD revealed no sign of bleeding; however, concern for LGIB remained given over three episodes of large volume blood output per rectum Given tachycardia and relative hypotension, ordered 2 more units to transfuse. NM scan completed with out acute bleeding, but given continued output and blood requirement, GI coordinated transfer to [facility] in setting of multiple comorbities. #Acute GI bleed, c/f lower etiology #Acute on Chronic Iron deficiency anemia Known portal htn, diverticulosis, varices; multiple potential etiologies Given relative brisk nature of bleed, multiple comorbidities, whether it is IR embolization or eval by CRS, these are not available at [facility] Hgb 8.5, now 6.5 this am, 7.7 after repeat transfusion, prior to further bloody output FOBT + in ED Continue NPO EGD negative for upper GIB NM scan negative 2 UPRBC transfused given ongoing bloody output, tachycardia, and relative hypotension -s.p IV lasix x1 40mg #Ischemic colitis SMA stent, arterial duplex 05/2022 patent 05/08/2022 status post SMA stent with 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 Discharged with DAPT Holding DAPT 2/2 ongoing bleeding #Cirrhosis #Portal hypertensive gastropathy and varices Cirrhotic morphology noted on prior imaging with small volume ascites (05/2022) - History of decompensation: no - Last EGD 04/25: Grade II esophageal varices - PSE: no evidence of HE on exam, ctm - Ascites: no trace, low suspicion of SBP - EV/PHTN: concern for GIB, continue CTX and follow up GI recommendations - HRS: Cr at baseline, no signs of HRS -PPI BID IV, trend H/H - GI consult -Bleeding not found on EGD -NM scan for brisk bleed, transfuse, likely transfer #HFpEF Chronic stable Takes Lasix 60 mg daily;hold for now given bleed and soft BP Most recent ECHO 05/05: EF > 70%, [id number], No MR, mild mitral stenosis #Osteoporosis -Alendronate on sundays #Chronic Hypomagnesemia: Replace and trend #Insulin-dependent DM2: Chronic stable Takes metformin; hold while inpatient Take 70/30; order ACHS SSI while inpatient Glycemic pharmacy consult placed #Prior CVA 02/03; does not follow with neuro No residual effects On Plavix; hold for now given bleed risk #HTN : Takes losartan and metoprolol; hold for now given bleeding and lower bp NPO since 04/24 DVT with SCDs last plavix am 04/24 Transfered to [facility] \\ Total Time Total Time Spent Total Time Spent (In Minutes): 45
== END 2023-04-25 23:55 | disposition short-term general hospital (02) | DRG 378 ==
LOC: ED 11:25 → EDINP 13:30 → SUATTDRO 13:30 → 4W 16:18

== ENCOUNTER 2023-05-12 15:05 | Inpatient (IN) ==
--- NOTE | 2023-05-12 16:14 | Emergency Department Note ---
Impression & Plan Acute lower GI bleeding, Acute blood loss anemia ED Provider Note NAME: FARHAN BEAR AGE: 82 SEX: F : 1940 ARRIVES VIA: Ambulance INFORMANT: Patient, EMS ED PROVIDER(S): Pierre Santos DO CHIEF COMPLAINT: GI bleeding HPI: The patient is an 82-year-old female who presented to the emergency department for an evaluation of GI bleeding. The patient was seen in our facility recently for similar complaints. She was transferred ultimately to [facility]. She did have an upper as well as a lower endoscopy. She has a history of esophageal varices. The patient states that she started noticing black stool as well as acute bleeding over the course last 24 hours. She does take Plavix. She has been compliant with her outpatient medications otherwise. The patient presented to the emergency department via ambulance. She denies having abdominal pain or chest pain. ROS: See above HPI for pertinent positives & negatives. A total of 10 systems reviewed and were otherwise negative. PAST MEDICAL HISTORY: See Below PAST SURGICAL HISTORY: See Below FAMILY HISTORY: See Below SOCIAL HISTORY: See Below HOME MEDICATIONS: See Below ALLERGIES: See Below VITALS: See Below PHYSICAL EXAMINATION: GENERAL: Patient is awake alert in no acute distress patient is resting comfortably and showing no signs of anxiety EYES: The conjunctivae are clear. The pupils are round and reactive. EARS, NOSE, MOUTH AND THROAT: The nose is without any evidence of any deformity. NECK: The neck is nontender and supple. RESPIRATORY: Normal respiratory effort is noted there is no evidence of wheezing rhonchi or rales CARDIOVASCULAR: Regular rate and rhythm noted there no murmurs rubs or gallops normal S1 normal S2. GASTROINTESTINAL: The abdomen is soft. Abdomen is nontender. Gross blood was noted per rectum. MUSCULOSKELETAL/EXTREMITIES: There is no evidence of gross deformity full range of motion is noted in the hips and shoulders. SKIN: There is no obvious evidence of any rash. Pedal edema was noted bilaterally. NEUROLOGIC: Patient is awake alert and oriented x3 MEDICAL DECISION MAKING: The patient is an 82-year-old female who presented to the emergency department for an evaluation of rectal bleeding. She had a recent episode that occurred when she was seen in our facility. The patient was transferred to [facility]. At that time she did have a colonoscopy that did reveal signs of diverticulosis. This was felt to be the source of her GI bleeding. The patient returns today with GI bleeding. She was hypotensive initially. She was treated with blood transfusion in the emergency department. I discussed patient's laboratory and radiographic studies with her. I discussed her condition with the on-call [facility] hospitalist. They have agreed to evaluate the patient in the emergency department for further management and disposition. I did consent the patient for blood transfusion. Triage Nursing notes reviewed. Prior medical records reviewed. The patient's colonoscopy and discharge summary from her recent visit to [facility] reviewed. Vital Signs: reviewed and remarkable for intermittent hypotension. Differential diagnosis: Diverticulosis, AVM, coagulopathy, colitis, inflammatory bowel disease, malignancy, Alejandra-Arroyo tear, esophagitis, peptic ulcer disease, variceal bleed, gastritis, epistaxis, fissure, hemorrhoids, as well as other pathologies. ER treatment provided: See below Diagnostics interpreted by me: ECG: EKG was obtained in the emergency department. My interpretation was normal sinus rhythm at 83 bpm. There is no ectopy. Low voltage is noted throughout. This was compared to a tracing from April 24, 2023. No significant changes were noted. Cardiac Monitoring: An order was placed for continuous cardiac monitoring. The monitor shows a rate of 81 bpm with sinus rhythm. Laboratory studies: As stated above and show below. Imaging studies: See below. Radiographic imaging was reviewed by myself Consultation(s): I discussed this case with Dr. Lyons ED COURSE: Procedures: none Critical Care: I have personally spent greater than 45 minutes of critical care time in the direct management of this patient. This includes bedside care, interpretation of diagnostic studies, and testing, discussion with consultants, patient, and family members, and other required patient management activities. This 45 minutes is in excess of all separately billable procedures. Past Med/Surg History Medical History Hepatic cirrhosis History of ischemic colitis GI bleed pt unaware CHF (congestive heart failure) Anemia Osteoporosis GERD (gastroesophageal reflux disease) Hyperparathyroidism Hypertension Poor historian Abnormal EKG pt unaware Acute respiratory failure CVA (cerebral vascular accident) Jan 2022 per pt > has some right hand weakness > does not follow with neuro Weakness of right upper extremity s/p CVA, just on occasion Lumbago Other and unspecified hyperlipidemia Type 2 diabetes mellitus without complications Essential (primary) hypertension Coronary atherosclerosis of [place] coronary vessel Acute heart failure with preserved ejection fraction (HFpEF) pt unaware Acute respiratory failure with hypoxia pt unaware Surgical History History of colonoscopy History of endovascular stent graft for abdominal aortic aneurysm unsure if this is exactly what she has, but had done in Apr 2022 at [facility] she thinks it was for AAA S/P tonsillectomy S/P hysterectomy S/P appendectomy History of heart artery stent placed 1994 S/P cholecystectomy History of cataract surgery bilat Family History Mother , age 70 of a stroke and congestive heart failure Stroke CHF (congestive heart failure) Father , in his 70s of an NC Myocardial infarction Social History Smoking Status: Never smoker packs per day: 4; Second Hand Exposure: No; Do You Dip or Chew Tobacco: No; Hx Alcohol Use: No Hx Substance Use: No Preferred Language: Sammarinese Communication Ability: Effective Circuit Board Inspector Required: No Beliefs That Will Affect Care: None marital status: Current Living Situation: Spouse current occupational status: retired current occupation: Multiple different jobs retiring in her 50s. Feels Safe at Home: Yes Assistive Devices: None Allergies Allergies Allergy/AdvReac Type Severity Reaction Status Date / Time metals Allergy Intermediate CHEAP Uncoded 04/25/23 09:49 METALS--RASH Home Meds Home Medications Medication Instructions Recorded Confirmed alendronate 70 mg tablet 70 mg PO SERRANO@0900 01/22/22 05/12/23 biotin 1 mg tablet 1 mg PO DAILY 01/22/22 05/12/23 cinacalcet 30 mg tablet (Sensipar) 30 mg PO QAM 01/22/22 05/12/23 glucosamine-chondroitin 250 mg-200 1 tab PO DAILY 01/22/22 05/12/23 mg tablet (Osteo Bi-Flex) insulin human U-100 NPH-regulr See Rx Instructions .Route .COMPLEX 01/22/22 05/12/23 70-30 mix 100 unit/mL subcutaneous susp (Novolin 70/30 U-100 Insulin) losartan 25 mg tablet 25 mg PO QAM 01/22/22 05/12/23 metformin 1,000 mg tablet 1,000 mg PO BID 01/22/22 05/12/23 vitamin B complex 1 tab PO DAILY 01/22/22 05/12/23 atorvastatin 40 mg tablet 40 mg PO QPM 08/19/22 05/12/23 furosemide 40 mg tablet (Lasix) 60 mg PO QAM 08/19/22 05/12/23 pantoprazole 40 mg tablet,delayed 40 mg PO QAM 08/19/22 05/12/23 release clopidogrel 75 mg tablet (Plavix) 75 mg PO DAILY 09/25/22 05/12/23 epinephrine 0.3 mg/0.3 mL 0.3 mg IM DIRECTED PRN Allergic 09/25/22 05/12/23 injection, auto-injector (EpiPen) Reaction iron,carbonyl 65 mg-vitamin C 125 1 tab PO QDD 09/25/22 05/12/23 mg tablet,delayed release (Vitron-C) melatonin 10 mg tablet 10 mg PO HS 09/25/22 05/12/23 kgwechtfcbqd-xurakrce-csddiu tablet 1 tab PO DAILY 09/25/22 05/12/23 carvedilol 3.125 mg tablet 3.125 mg PO BID 05/12/23 05/12/23 Previous Rx's Medication Instructions Recorded magnesium oxide 400 mg (241.3 mg 400 mg PO DAILY #60 tabs 01/29/22 magnesium) tablet Results & Data (ED) Vital Signs Vital Signs - 24 hr 05/12/23 16:17 05/12/23 16:30 05/12/23 16:33 Temperature 36.7 C Temperature Source Oral Pulse Rate 84 Pulse Rate [Bilateral] 80 Respiratory Rate 18 18 Blood Pressure 95/48 L Blood Pressure [Right Arm] 89/46 L Blood Pressure Mean 63 Blood Pressure Mean [Right Arm] 60 Blood Pressure Position Pulse Oximetry 100 98 Oxygen Delivery Method Room Air Room Air Oxygen Flow Rate Sepsis Recent Fever Within 48 Hours No Sepsis New/Unexplained Change in Mental Status No Sepsis Action Taken by Nursing No Action Required 05/12/23 16:45 05/12/23 18:00 05/12/23 19:45 Temperature 36.7 C Temperature Source Oral Pulse Rate 78 Pulse Rate [Bilateral] 83 88 Respiratory Rate 18 18 18 Blood Pressure 88/41 L Blood Pressure [Right Arm] 85/61 L 110/51 L Blood Pressure Mean 56 Blood Pressure Mean [Right Arm] 69 70 Blood Pressure Position Sitting Pulse Oximetry 98 98 99 Oxygen Delivery Method Room Air Room Air Oxygen Flow Rate 0 Sepsis Recent Fever Within 48 Hours Sepsis New/Unexplained Change in Mental Status Sepsis Action Taken by Nursing 05/12/23 20:00 05/12/23 20:00 05/12/23 20:15 Temperature 36.7 C 36.4 C Temperature Source Oral Oral Pulse Rate 83 75 Pulse Rate [Bilateral] 88 Respiratory Rate 16 18 18 Blood Pressure 109/50 L 106/53 L Blood Pressure [Right Arm] 109/50 L Blood Pressure Mean 69 70 Blood Pressure Mean [Right Arm] 69 Blood Pressure Position Pulse Oximetry 95 97 97 Oxygen Delivery Method Room Air Oxygen Flow Rate Sepsis Recent Fever Within 48 Hours Sepsis New/Unexplained Change in Mental Status Sepsis Action Taken by Nursing 05/12/23 20:45 Temperature Temperature Source Pulse Rate 81 Pulse Rate [Bilateral] Respiratory Rate 20 Blood Pressure 115/55 L Blood Pressure [Right Arm] Blood Pressure Mean 75 Blood Pressure Mean [Right Arm] Blood Pressure Position Pulse Oximetry 96 Oxygen Delivery Method Oxygen Flow Rate Sepsis Recent Fever Within 48 Hours Sepsis New/Unexplained Change in Mental Status Sepsis Action Taken by [place] Medications Current Medication List: was personally reviewed by me Laboratory Data Attestation: I reviewed the patient's lab results. 05/12/23 16:30 05/12/23 16:30 Lab Results 05/12/23 05/12/23 05/12/23 Range/Units 16:30 16:48 17:38 WBC 6.65 (4.8-10.8) K/ul RBC 2.42 L (4.20-5.40) M/uL Hgb 7.0 L (12.0-16.0) g/dl Hct 21.1 L (37.0-47.0) % MCV 87.2 (80.0-100.0) fL MCH 28.9 (25.0-34.0) pg MCHC 33.2 (32.0-36.0) g/dL RDW Std Deviation 65.0 H (36.4-46.3) fL RDW Coeff of Vanita 20.2 H (11.5-14.5) % Plt Count 142 (130-400) K/uL MPV 12.3 (9.4-12.4) fL Immature Gran % (Auto) 0.2 % Neut % (Auto) 58.4 % Lymph % (Auto) 30.8 % Citrus % (Auto) 8.7 % Eos % (Auto) 1.4 % Baso % (Auto) 0.5 % Neut # (Auto) 3.89 (1.40-6.50) K/uL Lymph # (Auto) 2.05 (1.20-3.40) K/uL Citrus # (Auto) 0.58 (0.11-0.59) K/uL Eos # (Auto) 0.09 (0.00-0.50) K/uL Baso # (Auto) 0.03 (0.00-0.20) K/uL Immature Gran # (Auto) 0.01 (0.01-0.20) K/uL Polychromasia 1+ Poikilocytosis Present Anisocytosis Present Acanthocytes (Spur) 1+ PT Cancelled 14.2 H INR Cancelled 1.3 H APTT Cancelled 26 PTT Ratio Cancelled 0.9 Sodium 137 (136-145) mmol/L Potassium 5.4 H (3.5-5.1) mmol/L Chloride 102 (98-107) mmol/L Carbon Dioxide 23 (21-32) mmol/L Anion Gap 12 H (3-11) BUN 52 H (6-23) mg/dl Creatinine 1.63 H (0.6-1.2) mg/dl Est Cr Clr Drug Dosing 25.4 ml/min Est GFR ( Amer) 33.7 ml/min Est GFR (Non-Af Amer) 29.0 ml/min BUN/Creatinine Ratio 31.9 H (10-20) Glucose 98 (70-99(Fasting)) mg/dl Calcium 8.9 (8.6-10.3) mg/dl Total Bilirubin 1.2 H (0.2-1.0) mg/dl AST 43 H (13-39) U/L ALT 22 (7-52) U/L Alkaline Phosphatase 38 (34-104) U/L Troponin I High Sens 12.5 (0-14) pg/ml Total Protein 5.2 L (6.0-8.3) gm/dl Albumin 2.6 L (3.4-5.0) gm/dl Globulin 2.6 (2.5-4.0) gm/dl Albumin/Globulin Ratio 1.0 (0.9-2) Lipase 31 (11-82) U/L Blood Type A Positive Antibody Screen NEGATIVE Crossmatch See Detail Imaging Data Attestation: I personally reviewed and interpreted this imaging study as follows: My Impression: 1 view chest x-ray was obtained in the emergency department. My interpretation is no free air or definite infiltrate, final report below. Radiologist's Impression: Chest X-Ray 05/12/23 15:58 XR chest 1V portable HISTORY: 82 years-old Female GIB acute GI bleed COMPARISON: Chest radiograph 05/05/2022 TECHNIQUE: AP view of the chest FINDINGS: Cardiac mediastinal and hilar silhouettes are within normal limits. No pneumothorax, pleural effusion or airspace consolidation. The bones of the chest appear grossly intact. Mitral annular calcifications. IMPRESSION: No acute process. ACT 112: Negative or not required by law. The above report was generated using voice recognition software. It may contain grammatical, syntax or spelling errors. Electronically signed by: Abhay Smart M.D. 05/12/2023 4:41 PM Discharge Plan Visit Data Chief Complaint: Rectal Bleed Stated Complaint: DARK, TARRY STOOLS. HERE FOR SAME A COUPLE WEEKS A ED Provider: Pierre Santos Discharge Problem: Acute lower GI bleeding, Acute blood loss anemia Patient Disposition: Being Evaluated by Hospitalist Forms Stand Alone Forms: My [facility] Prescriptions Prescriptions: No Action vitamin B complex Tablet Extended Release 1 tab PO DAILY Hold Instructions: Resume on 04/25/23. alendronate 70 mg tablet 70 mg PO SERRANO@0900 Hold Instructions: Resume on 04/25/23. Novolin 70/30 U-100 Insulin 100 unit/mL (70-30) suspension See Rx Instructions .ROUTE .COMPLEX Hold Instructions: Resume on 04/25/23. Rx Instructions: TAKES 25 UNITS QAM, THEN 10 UNITS QPM. metformin 1,000 mg tablet 1,000 mg PO BID Hold Instructions: Resume on 04/25/23. cinacalcet [Sensipar] 30 mg tablet 30 mg PO QAM Hold Instructions: Resume on 04/25/23. biotin 1 mg Tablet 1 mg PO DAILY Hold Instructions: Resume on 04/25/23. losartan 25 mg tablet 25 mg PO QAM Hold Instructions: Resume on 04/25/23. glucosamine-chondroitin [Osteo Bi-Flex] 250-200 mg Tablet 1 tab PO DAILY Hold Instructions: Resume on 04/25/23. Rx Instructions: unknown strength magnesium oxide 400 mg (241.3 mg magnesium) Tablet 400 mg PO DAILY Qty: 60 0RF Hold Instructions: Resume on 04/25/23. atorvastatin 40 mg Tablet 40 mg PO QPM Hold Instructions: Resume on 04/25/23. Rx Instructions: q afternoon furosemide [Lasix] 40 mg tablet 60 mg PO QAM Hold Instructions: Resume on 04/25/23. pantoprazole 40 mg tablet,delayed release (DR/EC) 40 mg PO QAM Hold Instructions: Resume on 04/25/23. carvedilol 3.125 mg tablet 3.125 mg PO BID clopidogrel [Plavix] 75 mg Tablet 75 mg PO DAILY Hold Instructions: Resume on 04/25/23. epinephrine [EpiPen] 0.3 mg/0.3 mL Auto-Injector 0.3 mg IM DIRECTED PRN (Reason: Allergic Reaction) Hold Instructions: Resume on 04/25/23. [id number]-sxnqqnyh-vddslf Tablet 1 tab PO DAILY Hold Instructions: Resume on 04/25/23. melatonin 10 mg Tablet 10 mg PO HS Hold Instructions: Resume on 04/25/23. Vitron-C 65 mg iron- 125 mg Tablet,Delayed Release (Dr/Ec) 1 tab PO QDD Hold Instructions: Resume on 04/25/23. Referrals Referrals: Alexy Al MD [Primary Care Provider] -
--- NOTE | 2023-05-12 16:43 | XRay Report ---
XR chest 1V portable HISTORY: 82 years-old Female GIB acute GI bleed COMPARISON: Chest radiograph 05/05/2022 TECHNIQUE: AP view of the chest FINDINGS: Cardiac mediastinal and hilar silhouettes are within normal limits. No pneumothorax, pleural effusion or airspace consolidation. The bones of the chest appear grossly intact. Mitral annular calcificatio ns. IMPRESSION: No acute process. ACT 112: Negative or not required by law. The above report was generated using voice recognition software. It may contain grammatical, syntax o r spelling errors. Electronically signed by: Abhay Smart M.D. 05/12/2023 4:41 PM
[2023-05-12 16:55] LABS: Basophils # (auto) 0.03 K/uL (0.00-0.20); Basophils % (auto) 0.5 %; Eosinophils # (auto) 0.09 K/uL (0.00-0.50); Eosinophils % (auto) 1.4 %; Hematocrit (blood only) 21.1 % (37.0-47.0); Immature Granulocytes # (auto) 0.01 K/uL (0.01-0.20); Immature Granulocytes % (auto) 0.2 %; Lymphocytes # (auto) 2.05 K/uL (1.20-3.40); Lymphocytes % (auto) 30.8 %; Mean Corpuscular Hemoglobin 28.9 pg (25.0-34.0); Mean Corpuscular Hgb Conc 33.2 g/dL (32.0-36.0); Mean Corpuscular Volume 87.2 fL (80.0-100.0); Mean Platelet Volume 12.3 fL (9.4-12.4); Monocytes # (auto) 0.58 K/uL (0.11-0.59); Monocytes % (auto) 8.7 %; Neutrophils # (auto) 3.89 K/uL (1.40-6.50); Neutrophils % (auto) 58.4 %; Platelet Count 142 K/uL (130-400); RDW Coefficient of Variation 20.2 % (11.5-14.5); Red Blood Count 2.42 M/uL (4.20-5.40); White Blood Count 6.65 K/ul (4.8-10.8)
[2023-05-12 17:09] LABS: Albumin Level 2.6 gm/dl (3.4-5.0); BUN Creatinine Ratio 31.9 (10-20); Bilirubin,Total 1.2 mg/dl (0.2-1.0); Calcium 8.9 mg/dl (8.6-10.3); Creatinine Clr Calc Pharmacy 25.4 ml/min; Est GFR (African American) 33.7 ml/min; Globulin 2.6 gm/dl (2.5-4.0); Potassium 5.4 mmol/L (3.5-5.1); Total Protein 5.2 gm/dl (6.0-8.3)
[2023-05-12 17:13] LABS: Troponin I High Sensitivity 12.5 pg/ml (0-14)
[2023-05-12 17:22] LABS: Acanthocytes 1+; Anisocytosis Present; Poikilocytosis Present; Polychromasia 1+
[2023-05-12] MEDS ORDERED: SODIUM CHLORIDE 0.9% 250 ML IV PRN (17:33)
[2023-05-12 18:15] LABS: INR 1.3 (0.9-1.1); Partial Thromboplastin Ratio 0.9; Partial Thromboplastin Time 26 Seconds (21-31); Prothrombin Time 14.2 Seconds (9.0-12.0)
--- NOTE | 2023-05-12 18:31 | History & Physical Report ---
Date of Service May 12, 2023 Assessment & Plan (1) Acute GI bleeding: Plan: Uncertain source, with mixed black blood and bright red blood when she wiped, considering UGIB in the differential-poss variceal bleed vs lower GI source such as diverticular bleed. She is on Plavix with h/o vascular disease. She does have a significant symptomatic acute blood loss anemia. Will start her on PPI and octreotide drip as well as Rocephin given known h/o varices. Hypotension is improved with NSS, giving blood now. Trend H/H. Will hold Plavix and keep NPO with GI consult. (2) Acute blood loss anemia: Plan: 2/2 acute GI bleeding. Cont plan as noted above. (3) Hepatic cirrhosis: Plan: Known history of this, appears compensated. (4) History of ischemic colitis: Plan: per history. There is no abdominal discomfort at this time. Will consider abdominal imaging if this occurs, however, she has had frequent imaging recently including CTA a/p on 04/24. (5) HTN (hypertension): Plan: Hypotensive, will hold antihypertensives (6) Chronic heart failure with preserved ejection fraction (HFpEF): Plan: chronic, stable. Holding Lasix in setting of GI bleed and hypotension. (7) DM type 2 (diabetes mellitus, type 2): Plan: chronic, at goal. A1C recently was 7.4. Cont basal bolus insulin hwile hospitalized. (8) Coronary atherosclerosis of mcgrath coronary vessel: Plan: chronic, stable. Holding antiplatelet therapy given active bleeding. DVT proph-no chemoprophy 2/2 bleeding, SCDs/ Dispo-PCU DNR per patient discussion. I spent a total of 75minutes coordinating, documenting, and providing care for this patient excluding time spent in the performance of separately billed services Macey Lyons DO [facility] Hospitalist History of Present Illness Chief Complaint: rectal bleeding Primary Care Provider: Alexy Al MD 81-year-old female with a history of cirrhosis, type 2 diabetes HFpEF, SMA stenosis with stent placement, hypertension, history of CVA and history of recurrent GI bleed presents with rectal bleeding. She was previously admitted to this hospital from 04/24 through 04/25 for GI bleed and colitis. An EGD was negative for upper GI bleed but did reveal grade 2 esophageal varices. A nuclear med scan was negative. She was transfused 3U blood and GI was consulted. She was treated with PPI bolus and drip and octreotide bolus and drip with Plavix held. She was ultimately transferred to [facility] given concern for lower GI source and history of ischemic colitis with SMA stent. GI evaluated the patient and she underwent a colonoscopy on 04/27 revealing diverticulosis with old blood and no active bleeding. There was no evidence of recurrent ischemic colitis. After the procedure she had no additional evidence of hematochezia. She remained hemodynamically stable and her hemoglobin remained stable. She was restarted on her Plavix. She felt well after discharge but maintained that she was weak and fatigued with cold intolerance. She reports Nausea/vomiting x 12 hours on 05/09. Relatives also were sick. Recovered from that illness later that night but remained weak and sleepy but not sick. Denied abdominal pain. Reports black stool that started this morning around 1000. She is on iron supplementation. Poor appetite generally. She returns today for an evaluation of lower GI bleeding. She is hypotensive and hemoglobin is 7 down from 8.4 on 05/10, 2 days ago. Notably after discharge on 04/28 her hemoglobin was 11.1. She did follow-up with her PCP on 05/10 and reported fatigue that was ongoing. She is diaphoretic. BP 85/61 P83 (on Coreg) and was improved to 103 systolic after receiving 250cc NSS in the ER. Allergies Allergy/AdvReac Type Severity Reaction Status Date / Time metals Allergy Intermediate CHEAP Uncoded 04/25/23 09:49 METALS--RASH Home Medications Medication Instructions Recorded Confirmed Type alendronate 70 mg tablet 70 mg PO SERRANO@0900 01/22/22 05/12/23 History biotin 1 mg tablet 1 mg PO DAILY 01/22/22 05/12/23 History cinacalcet 30 mg tablet (Sensipar) 30 mg PO QAM 01/22/22 05/12/23 History glucosamine-chondroitin 250 mg-200 1 tab PO DAILY 01/22/22 05/12/23 History mg tablet (Osteo Bi-Flex) insulin human U-100 NPH-regulr See Rx Instructions .Route .COMPLEX 01/22/22 05/12/23 History 70-30 mix 100 unit/mL subcutaneous susp (Novolin 70/30 U-100 Insulin) losartan 25 mg tablet 25 mg PO QAM 01/22/22 05/12/23 History metformin 1,000 mg tablet 1,000 mg PO BID 01/22/22 05/12/23 History vitamin B complex 1 tab PO DAILY 01/22/22 05/12/23 History magnesium oxide 400 mg (241.3 mg 400 mg PO DAILY #60 tabs 01/29/22 05/12/23 Rx magnesium) tablet atorvastatin 40 mg tablet 40 mg PO QPM 08/19/22 05/12/23 History furosemide 40 mg tablet (Lasix) 60 mg PO QAM 08/19/22 05/12/23 History pantoprazole 40 mg tablet,delayed 40 mg PO QAM 08/19/22 05/12/23 History release clopidogrel 75 mg tablet (Plavix) 75 mg PO DAILY 09/25/22 05/12/23 History epinephrine 0.3 mg/0.3 mL 0.3 mg IM DIRECTED PRN Allergic 09/25/22 05/12/23 History injection, auto-injector (EpiPen) Reaction iron,carbonyl 65 mg-vitamin C 125 1 tab PO QDD 09/25/22 05/12/23 History mg tablet,delayed release (Vitron-C) melatonin 10 mg tablet 10 mg PO HS 09/25/22 05/12/23 History rcidcdsrttuu-cmqoqhco-ksvaxn tablet 1 tab PO DAILY 09/25/22 05/12/23 History carvedilol 3.125 mg tablet 3.125 mg PO BID 05/12/23 05/12/23 History Past Med/Surg History Medical History Hepatic cirrhosis History of ischemic colitis GI bleed pt unaware CHF (congestive heart failure) Anemia Osteoporosis GERD (gastroesophageal reflux disease) Hyperparathyroidism Hypertension Poor historian Abnormal EKG pt unaware Acute respiratory failure CVA (cerebral vascular accident) Jan 2022 per pt > has some right hand weakness > does not follow with neuro Weakness of right upper extremity s/p CVA, just on occasion Lumbago Other and unspecified hyperlipidemia Type 2 diabetes mellitus without complications Essential (primary) hypertension Coronary atherosclerosis of mcgrath coronary vessel Acute heart failure with preserved ejection fraction (HFpEF) pt unaware Acute respiratory failure with hypoxia pt unaware Surgical History History of colonoscopy History of endovascular stent graft for abdominal aortic aneurysm unsure if this is exactly what she has, but had done in Apr 2022 at [place] she thinks it was for AAA S/P tonsillectomy S/P hysterectomy S/P appendectomy History of heart artery stent placed 1994 S/P cholecystectomy History of cataract surgery bilat Family History Mother , age 70 of a stroke and congestive heart failure Stroke CHF (congestive heart failure) Father , in his 70s of an [place] Myocardial infarction Social History Smoking Status: Never smoker packs per day: 4; Second Hand Exposure: No; Do You Dip or Chew Tobacco: No; Hx Alcohol Use: No Hx Substance Use: No Preferred Language: Azeri Communication Ability: Effective Maintenance Clerk Required: No Beliefs That Will Affect Care: None marital status: Current Living Situation: Spouse current occupational status: retired current occupation: Multiple different jobs retiring in her 50s. Feels Safe at Home: Yes Assistive Devices: None Physical Exam Physical Exam: CONSTITUTIONAL: WNWD, vitals as above, generally appears diaphoretic and weak but in NAD. EYES: normal conjunctivae, no scleral icterus ENT: external ear and nose normal, MMM NECK: trachea midline RESPIRATORY: clear to auscultation bilaterally, no crackles, rales or wheezes, normal respiratory effort CARDIOVASCULAR: regular rate and rhythm, S1 and 2 heard without murmurs, gallops or rubs, no JVD, no peripheral edema CHEST: inspection of chest was normal GASTROINTESTINAL: soft, nontender, ND, no guarding MUSCULOSKELETAL: generalized weakness, cannot sit up independently, head is normocephalic and atraumatic SKIN: warm and slightly diaphoretic. NEUROLOGIC: CN 2-12 grossly intact, no sensory deficit, normal cognition, normal speech, no tremor PSYCHIATRIC: alert cooperative and oriented to person, place and time. Euthymic mood, makes good eye contact, language grossly intact, recent and remote memory grossly intact. Results & Data Results & Data Vital Signs (Past 12 Hours) Vital Signs Temp Pulse Pulse Resp BP BP Pulse Ox 05/12/23 16:45 83 18 85/61 L 98 05/12/23 16:33 98 05/12/23 16:30 80 18 89/46 L 05/12/23 16:17 36.7 C 84 18 95/48 L 100 O2 Del Method 05/12/23 16:45 Room Air 05/12/23 16:33 Room Air 05/12/23 16:30 05/12/23 16:17 Room Air Laboratory Results Short CBC 05/12/23 Range/Units 16:30 WBC 6.65 (4.8-10.8) K/ul Hgb 7.0 L (12.0-16.0) g/dl Hct 21.1 L (37.0-47.0) % Plt Count 142 (130-400) K/uL BMP 05/12/23 16:30 Sodium 137 Potassium 5.4 H Chloride 102 Carbon Dioxide 23 BUN 52 H Creatinine 1.63 H Glucose 98 Calcium 8.9 Liver Function 05/12/23 Range/Units 16:30 Total Bilirubin 1.2 H (0.2-1.0) mg/dl AST 43 H (13-39) U/L ALT 22 (7-52) U/L Alkaline Phosphatase 38 (34-104) U/L Albumin 2.6 L (3.4-5.0) gm/dl Diagnostic Findings Chest X-Ray 05/12/23 15:58 XR chest 1V portable HISTORY: 82 years-old Female GIB acute GI bleed COMPARISON: Chest radiograph 05/05/2022 TECHNIQUE: AP view of the chest FINDINGS: Cardiac mediastinal and hilar silhouettes are within normal limits. No pneumothorax, pleural effusion or airspace consolidation. The bones of the chest appear grossly intact. Mitral annular calcifications. IMPRESSION: No acute process. ACT 112: Negative or not required by law. The above report was generated using voice recognition software. It may contain grammatical, syntax or spelling errors. Electronically signed by: Abhay Smart M.D. 05/12/2023 4:41 PM
[2023-05-12] MEDS ORDERED: STAT IV/IM STA (19:24)
[2023-05-12] MEDS ORDERED: PANTOPRAZOLE BOLUS/DRIP IV STA (19:24)
[2023-05-12] MEDS ORDERED: OCTREOTIDE ACETATE 50 MCG in SYRINGE 9.5 ML IV STA (19:50)
[2023-05-12] MEDS ORDERED: PANTOprazole 80 MG in DEXTROSE 5% 100 ML IV ONE (20:00)
[2023-05-12] MEDS: cefTRIAXone SODIUM 1,000 MG in DEXTROSE 5 % MINI-B 50 ML IV SCH (22:24)
[2023-05-12] MEDS: OCTREOTIDE ACETATE 500mcg / NSS 100mL IV SCH (22:33)
--- OUTSIDE RECORDS SUMMARY | 2023-05-12 22:44 | External Medical Summary | Summary of Care ---
Author Name Unknown Organization [facility] Address [address] [place] [address] Phone [phone] Care Team Providers Care Finisher Card Tender Name Role Phone Alexy Al MD Primary Care Provider +1- [phone] Reason for Visit * Reason Onset Date Comments Hospital Follow-Up Hospital Follow-Up 05/10/2023 Encounter Details Date Type Department Care Team (Latest Contact Info) Description 05/10/2023 11:20 AM EST Office Visit [facility] [address] [place] [address] Alexy Al MD [address] [place] [address] Gastrointestinal hemorrhage associated with intestinal diverticulosis*; HTN, goal below 140/90; Hyperparathyroidism, primary (HCC); Anemia, unspecified type; Edema, unspecified type; Malaise and fatigue; Hospital discharge follow-up; Type 2 diabetes mellitus with hemoglobin A1c goal of less than 8.0% (HCC); Chronic heart failure with preserved ejection fraction (HCC); Superior mesenteric artery stenosis (HCC); Cirrhosis of liver without ascites, unspecified hepatic cirrhosis type (HCC); Esophageal varices without bleeding, unspecified esophageal varices type (HCC) Allergies No known active allergiesdocumented as of this encounter (statuses as of 05/10/2023) Medications Medication Sig Dispensed Refills Start Date [...] E11.9 E11.29 400 Each 1 08/31/2022 Active Additional Information Patient not taking.Reported on 05/04/2023 Zoster Vac Recomb Adjuvanted 50 MCG/0.5ML Intramuscular Suspension Reconstituted (Shingrix)Indicatio ns:Need for vaccination for zoster Inject 0.5 mL into a large muscle now and repeat dose in 60 to 180 days 1 Each 1 09/16/2022 Active Additional Information Patient not taking.Reported on 03/28/2023 Magnesium Oxide -Mg Supplement 400 MG Oral Capsule TAKE ONE CAPSULE BY MOUTH EVERY MORNING 90 Capsule 1 10/11/2022 4 Active Insulin Syringe-Needle U-100 30G X 516" 1 ML USE TO INJECT INSULIN TWICE DAILY 200 Each 1 08/31/2022 4 Active Glucose Blood In Vitro Strip USE TO TEST BLOOD SUGAR TWICE DAILY 200 Strip 1 08/31/2022 4 Active OneTouch Delica Plus [id number] USE TO TEST BLOOD SUGAR TWICE DAILY [...] FOOD. 200 Tablet 1 08/31/2022 4 Active Clopidogrel Bisulfate [...] MORNING. 100 Tablet 1 03/23/2023 4 Active Furosemide 40 MG Oral Tablet (Lasix)Indications: Chronic heart failure with preserved ejection fraction (HCC) Take 1.5 Tablets by mouth in the morning. 135 Tablet 1 04/18/2023 Active Losartan Potassium 25 MG Oral Tablet (Cozaar)Indications :HTN, goal below 140/90 TAKE ONE TABLET BY MOUTH IN THE MORNING 100 Tablet 3 04/28/2023 4 Active Carvedilol 3.125 MG Oral Tablet (Coreg) Take 1 Tablet by mouth 2 times a day with morning and evening meals. 60 Tablet 1 04/28/2023 Active documented as of this encounter (statuses as of 05/10/2023) Active Problems Problem Noted Date Diagnosed Date Esophageal varices without bleeding 05/10/2023 Gastrointestinal hemorrhage associated with intestinal diverticulosis 04/26/2023 Hypertensive HF (heart failure) 03/28/2023 Superior mesenteric artery stenosis 08/03/2022 Cellulitis of right lower extremity 07/12/2022 [...] repeat CT. 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 Ischemic colitis 05/08/2022 04/28/2023 Acute diastolic heart failure 02/02/2022 03/14/2022 Last [...] as of this encounter (statuses as of 05/10/2023) Immunizations Name Administration Dates Next Due COVID-19 mRNA, LNP-s, No Pre serve, 2-Dose Series (Pfizer) 03/10/2021,08/27/2020,08/06/2020 Pneumococcal Conjugate Vacc, 13 Valent (Prevnar) 06/04/2015 Pneumococcal Polysaccharide PPV23 (Pneumovax) 07/29/2008 Season Influenza, Quad, PF, Adjuvanted, 65+ Yrs, IM (FLUAD) 03/05/2020 Seasonal Influenza, PF, 6 M & above, IM , (FluLaval or Fluzone) 03/20/2019,03/13/2018,03/08/2017 Seasonal Influenza, Quadriva lent Hd (Fluzone [...] Sign Reading Time Taken Comments Blood Pressure 114/54 05/10/2023 11:17 AM EST Pulse 91 05/10/2023 11:17 AM EST Temperature 36.6 C (97.9 F) 05/10/2023 11:[address] Respiratory Rate 16 05/10/2023 11:17 AM EST Oxygen Saturation 99% 05/10/2023 11:17 AM EST Inhaled Oxygen Concentration - - Weight 71.7 kg (158 lb) 05/10/2023 11:17 AM EST Height - - Body Mass Index 27.99 04/26/2023 1:17 AM EST documented in this encounter Functional Status [...] as of this encounter Progress Notes * Alexy Al MD - 05/10/2023 3:45 PM EST Subjective: Martine Russell is a 82 year old female here today for Chief Complaint Patient presents with Hospital Follow-Up Hospital Follow-Up Here for hospital follow up. Admitted [facility] 04/24/23 - 04/26/23 and then transferred to [facility] 04/26/23- 04/28/23. Patient was admitted for lower GI bleed. She was transfused with 3 units of packed red blood cells while at the hospital. She had an upper endoscopy that revealed esophageal varices. These are related to her cirrhosis. She had her metoprolol changed to carvedilol. A colonoscopy revealedlikely previous diverticular bleeding but no active bleed. It was recommended she follow-up with vascular surgery due to GI bleeding and on Plavix. The Plavix is related to use of a stent for superior mesenteric artery stenosis. It is also recommended she follow-up with hepatology for her cirrhosis. It is also recommended she have a follow-up CBC. Patient's main complaint is feeling tired. She isalways tired and will want to go rtight back to bed even right after waking up. States that this has been present for about a year - but has been worse since most recent hospitalization. She also states that her furosemide does not seem to be working - she is taking 60 mg daily but does not notice any increase in urination after taking it. She has noted some swelling of the right lower ext - states that this is always the leg that swells. No increase in shortness of breath. Past Medical History: Diagnosis Date DM type 2, goal A1C below 8.0 04/22/2013 Past Surgical History: Procedure Laterality Date COLONOSCOPY, DIAGNOSTIC (RECTUM) N/A 08/26/2022 sigmoid diverticulosis/hemorrhagic, inflamed and ulcerated mucosa cecum/biopsies show colitis/Colonoscopy/[place] COLONOSCOPY, DIAGNOSTIC (RECTUM) N/A 04/27/2023 COLONOSCOPY FLEXIBLE PROXIMAL DIAGNOSTIC performed by Elian Hernandez MD at ENDOSCOPY [facility] IR ARTERIOGRAM VISCERAL N/A 05/09/2022 IMAGING SUPERVISION & INTERPRETATION VISCERAL, SELECTIVE performed by Cedrick Phillips MD at [facility] OPEN BRACHIAL ARTERY EXPOSURE FOR ENDOVASCULAR PROSTHESIS, UNILAT N/A 05/09/2022 OPEN BRACHIAL ARTERY EXPOSURE FOR ENDOVASCULAR PROSTHESIS performed by Cedrick Phillips MD at OR [facility] PARTIAL HYSTERECTOMY 1986 ovaries remain REMOVAL OF [...] reaction (infusion reaction protocol)). 2 Tablet 11 Sodium Chloride 0.9 % Intravenous Solution To [...] taking: Reported on 08/11/2022) 2 mL 11 EPINEPHrine (Anaphylaxis) 1 MG/ML Injection Solution [...] by mouth daily withdinner. 90 Tablet 1 OneTouch Delica Lancets 33G Test blood sugar twice daily E11.9 E11.29 (Patient not taking: Reportedon 05/04/2023) 400 Each 1 Zoster Vac Recomb Adjuvanted 50 MCG/0.5ML Intramuscular Suspension Reconstituted (Shingrix) Inject 0.5 mL into a large muscle now and repeat dose in 60 to 180 days (Patient not taking: Reported on 03/28/2023) 1 Each 1 Magnesium Oxide -Mg Supplement 400 MG Oral Capsule TAKE ONE CAPSULE BY MOUTH EVERY MORNING 90 Capsule 1 Insulin Syringe-Needle U-100 30G X 5/16" 1 ML USE TO INJECT INSULIN TWICE DAILY 200 Each 1 Glucose Blood In Vitro Strip USE TO TEST BLOOD SUGAR TWICE DAILY 200 Strip 1 OneTouch Delica Plus [id number] USE TO TEST BLOOD SUGAR TWICE DAILY [...] BEFORE BEDTIME WITH FOOD. 200 Tablet 1 Clopidogrel Bisulfate 75 MG Oral [...] BY MOUTH EVERY AFTERNOON 100 Tablet 3 mangofizz jobsTouch Verio w/Device Kit Use up to 4 times a day E11.9 E11.29 1 Kit 0 Cinacalcet HCl 30 MG Oral Tablet (Sensipar) TAKE ONE TABLET BY MOUTH IN THE MORNING. 100 Tablet 1 Furosemide 40 MG Oral Tablet (Lasix) Take 1.5 Tablets by mouth in the morning. 135 Tablet 1 Losartan Potassium 25 MG Oral Tablet (Cozaar) TAKE ONE TABLET BY MOUTH IN THE MORNING 100 Tablet 3 Carvedilol 3.125 MG Oral Tablet (Coreg) Take 1 Tablet by mouth 2 times a day with morning and evening meals. 60 Tablet 1 No current facility-administered medications for this visit. Objective: BP 114/54 | Pulse 91 | Temp 36.6 C (97.9 F) (Infrared ) | Resp 16 | Wt 71.7 kg (158 lb) | SpO2 99% | BMI 27.99 kg/m | BSA 1.79 m GEN: NAD HEENT: Benign NECK: Supple with no LAD, TM, JVD CHEST: CTA B CV: RRR ABD: Soft, NT/ND, No HSM, NABS EXT: R>L 1+ lower ext edema near ankle. Assessment and Plan: Gastrointestinal hemorrhage associated with intestinal diverticulosis (Primary) -likely a diverticular bleed. Repeat CBC today. Patient to review ongoing use of Plavix with vascular surgery. HTN, goal below 140/90 - BASIC METABOLIC PANEL; Future; Expected date: 05/10/2023 Hyperparathyroidism, primary (HCC) - CALCIUM, IONIZED; Future; Expected date: 05/10/2023 Anemia, unspecified type - CBC; Future; Expected date: 05/10/2023 Edema, unspecified type - BNP, NT-PRO; Future; Expected date: 05/10/2023 -depending on lab test results, will decide about adjustment in furosemide. Malaise and fatigue - TSH WITH FREE T4 IF INDICATED; Future; Expected date: 05/10/2023 -start with laboratory evaluation. Patient denies significant depression. Depending on lab results,consider sleep medicine evaluation. Also question if beta-blockers are contributing. Difficult to assess as she has had some increase in fatigue related to recent hospitalization. Hospital discharge follow-up - DISCH MED RECON CUR MED LIS Type 2 diabetes mellitus with hemoglobin A1c goal of less than 8.0% (HCC) Chronic heart failure with preserved ejection fraction (HCC) Superior mesenteric artery stenosis (HCC) Cirrhosis of liver without ascites, unspecified hepatic cirrhosis type (HCC) Esophageal varices without bleeding, unspecified esophageal varices type (HCC) -see hepatology as scheduled. Follow Up: Return for pt has appt in September - want to keep that - but please schedule for 6 week follow up. Can be 20 min. | For: pt has appt in September - want to keep that - but please schedule for 6 week follow up. Can be 20 min | Check- out note: If nothing available,. Please send back to me 45 min with pt and documentation Alexy Al MD documented in this encounter Nursing Notes * Brittany Westbrook LPN - 05/10/2023 11:17 AM EST The patient has been properly identified by confirmation of name and date of . Chief Complaint Patient presents with Hospital Follow-Up [facility] and then transferred to [facility] for GI bleed. documented in this encounter Plan of Treatment Upcoming Encounters Date Type Department Care Team (Late st Contact Info) Description 05/18/2023 1:00 PM EST Home Visit [facility] [place], [facility] [address] [facility] [place] [address] Crescencio Santillan PA-C [address] [facility] [place] [address] 05/31/2023 12:10 PM EST Office Visit Vascular Surgery, [facility] [address] [facility] [place] [address] Jonathan Iverson MD [address] [place] [address] 06/05/2023 12:30 PM EST Home Visit [facility] [place], [facility] [address] [facility] [place] [address] Cheryl Ruiz RN [address] [facility] [place] [address] 07/06/2023 2:20 PM EST Office Visit [facility] [address] [place] [phone] Alexy Al MD [address] [place] [address] 08/17/2023 12:40 PM EDT Office Visit Hepatology, [facility] [address] [facility] [place] [address] Dayan Sanford, DO [address] [place] [address] 10/06/2023 10:40 AM EDT Office Visit [facility] [address] [facility], [place] [phone] Alexy Al MD [address] [facility], [place] [address] Pending Results Name Type Priority Associated Diagnoses Date /Time CBC Lab Routine Anemia, unspecified type 05/10/2023 12:11 PM EST BASIC METABOLIC PANEL Lab Routine HTN, goal below 140/90 05/10/2023 12:11 PM EST BNP, NT-PRO Lab Routine Edema, unspecified type 05/10/2023 12:11 PM EST TSH WITH FREE T4 IF INDICATED Lab Routine Malaise and fatigue 05/10/2023 12:11 PM EST CALCIUM, IONIZED Lab Routine Hyperparathyroidism, primary (HCC) 05/10/2023 12:11 PM EST Scheduled Orders Name Type Priority Associated Diagnoses Orde r Schedule CBC Lab Routine Anemia, unspecified type Expected: 05/10/2023 (Approximate), Expires: 05/09/2024 BASIC METABOLIC PANEL Lab Routine HTN, goal below 140/90 Expected: 05/10/2023 (Approximate), Expires: 05/09/2024 BNP, NT-PRO Lab Routine Edema, unspecified type Expected: 05/10/2023 (Approximate), Expires: 05/09/2024 TSH WITH FREE T4 IF INDICATED Lab Routine Malaise and fatigue Expected: 05/10/2023 (Approximate), Expires: 05/09/2024 CALCIUM, IONIZED Lab Routine Hyperparathyroidism, primary (HCC) Expected: 05/10/2023 (Approximate), Expires: 05/09/2024 Health Maintenance Due Date Last Done Comments [...] 09/26/2023 03/28/2023, 11/13, 09/05/2022, Additional history exists Albumin/Creatinine Ratio 03/28/2024 023, 08/18/2021, 10/29/2019, Additional history exists GFR 04/28/2024 04/28/2023, 04/14, 04/26/2023, Additional history exists DTaP,Tdap,and Td Vaccines (2 - Td or Tdap) 06/05/2024 06/05/2014 DXA Scan 11/28/2024 11/28/2022, 04/16, 12/07/2016, Additional history exists Pneumococcal Vaccine: 65+ Years Completed 06/04/2015, 07/29/2008 VITAMIN D LEVEL ONCE IN A LIFETIME-USE SMARTSET# [id number] Completed 01/27/2021, 08/21/2017, 03/08/2017, Additional history exists Zoster Vaccines Completed 12/06/2022, 050 09/2022, 06/04/2015 Influenza Vaccine (FLU shot) Completed , 03/14/2022, 02/01/2021, Additional history exists GARDASIL-HPV IMMUNIZATION SERIES Aged Out No longer eligible based on patient's age to complete this topic MENINGOCOCCAL (MENACTRA/MENVEO) Aged Out No longer eligible based on patient's age to complete this topic documented as of this encounter Medical Devices Implanted Type Area Architecture Manager Device Identifier Shelf Expiration Date Model / Serial / Lot Stent Graft [id number] - [id number] - [id number] Implanted:Qty: 1 on 05/09/2022 by Cedrick Phillips MD at [facility] [place] : MARTIN [id number] 02/11/2025 [id number] / [id number] / [id number] documented as of this encounter Visit Diagnoses Diagnosis Gastrointestinal hemorrhage associated with intestinal diverticulosis- Primary HTN, goal below 140/90 Unspecified essential hypertension Hyperparathyroidism, primary (HCC) Primary hyperparathyroidism Anemia, unspecified type Edema, unspecified type Malaise and fatigue Other malaise and fatigue Hospital discharge follow-up Other follow-up examination Type 2 diabetes mellitus with hemoglobin A1c goal of less than 8.0% (HCC) Chronic heart failure with preserved ejection fraction (HCC) 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 Question Answer Comments Discussion of Advance Directives occurred with: Patient Code Status History Code Status Date Activated Date Inactivated Comments No Code 05/08/2022 11:42 AM 05/11/2022 7:56 PM Th is order reflects the patients wishes and were consensually agreed upon. Question Answer Comments Discussion of Advance Directives occurred with: Patient Care Teams Finisher Card Tender Relationship Specialty Start Date End Date Alexy Al MD [address] [place] [address] PCP - General 07/29/08 documented as of this encounter
--- OUTSIDE RECORDS SUMMARY | 2023-05-12 22:44 | External Medical Summary | Summary of Care ---
Author Name Unknown Organization [facility] Address [address] [facility] [address] Phone [phone] Care Team Providers Care Research Neuropsychologist Name Role Phone Alexy Al MD Primary Care Provider +1- [phone] Reason for Visit * Reason Comments Outpatient Testing Encounter Details Date Type Department Care Team (Late st Contact Info) Description 05/10/2023 12:10 PM EST Laboratory Laboratory, [facility] [address] [place] [address] [facility] [address], [place] [phone] Anemia, unspecified type; HTN, goal below 140/90; Edema, unspecified type; Malaise and fatigue; Hyperparathyroidism, primary (HCC) Allergies No known active allergiesdocumented as [...] 1 08/31/2022 4 Active OneTouch Delica Plus [id number] USE TO TEST BLOOD SUGAR TWICE DAILY [...] Active Problems Problem Noted Date Diagnosed Date Gastrointestinal hemorrhage associated with intestinal diverticulosis 04/26/2023 [...] repeat CT. Coronary artery disease invo lving [place] heart without angina pectoris 05/08/2022 Last Assessment [...] Description 05/18/2023 1:00 PM EST [facility] Visit [facility] [address] [place] [address] Crescencio Santillan PA-C [address] [place] [address] 05/31/2023 12:10 PM EST Office Visit Vascular Surgery, [facility] [address] [place] [address] [facility] [address] [facility] [address] 06/05/2023 12:30 PM EST [facility] Visit [facility], [facility] [address] [place] [address] Cheryl Ruiz, RN [address] [place] [address] 08/17/2023 12:40 PM EDT Office Visit Hepatology, [facility] [address] [place] [address] Dayan Sanford DO [address] [place] [address] 10/06/2023 10:40 AM EDT Office Visit [facility] [address] [place] [phone] Alexy Al MD [address] [place] [address] Pending Results Name Type Priority Associated Diagnoses [...] Hyperparathyroidism, primary (HCC) 05/10/2023 12:11 PM EST Health Maintenance Due Date Last Done Comments Hepatitis B (1 of 3 - Risk 3-dose series) 2000 Diabetic Foot Exam 03/20/2020 03/20/2019, 1 , 09/05/2016, Additional history exists Diabetic Eye Exam 01/03/2023 01/03/2022, , 2019, Additional history exists COVID-19 Vaccine ( season) 2023 03/10/2021, 08/27/2020, 08/06/2020 Depression Screening 03/14/2023 03/14/2022 B-12 07/04/2023 07/04/2022, 01/2023, 01/27/2021, Additional history exists HbA1c 09/26/2023 [...] D LEVEL ONCE IN A LIFETIME-USE SMARTSET# [id number] Completed 01/27/2021, 08/21/2017, 03/08/2017, Additional history exists Zoster Vaccines Completed 12/06/2022, 09/2022, 06/04/2015 Influenza Vaccine (FLU shot) Completed , 03/14/2022, 02/01/2021, Additional history exists GARDASIL-HPV IMMUNIZATION SERIES Aged Out No longer eligible based on patient's age to complete this topic MENINGOCOCCAL (MENACTRA/MENVEO) Aged Out No longer eligible based on patient's age to complete this topic documented as of this encounter Medical Devices Implanted Type Area Boat Operator Device Identifier Shelf Expiration Date Model / Serial / Lot Stent Graft [id number] - [id number] - [id number] Implanted:Qty: 1 on 05/09/2022 by Cedrick Phillips MD at [facility] [place] : MARTIN [id number] 02/11/2025 [id number] 3 / [id number] / [id number] documented as of this encounter Visit Diagnoses Diagnosis Anemia, unspecified type HTN, goal below 140/90 Unspecified essential hypertension Edema, unspecified type Malaise and fatigue Other malaise and fatigue Hyperparathyroidism, primary (HCC) Primary hyperparathyroidism documented in this encounter Advance [...] Advance Directives occurred with: Patient Care Teams Research Neuropsychologist Relationship Specialty Start Date End Date Alexy Al MD [address] [place] [address] PCP - General 07/29/08 documented as of this encounter
--- OUTSIDE RECORDS SUMMARY | 2023-05-12 22:44 | External Medical Summary | Summary of Care ---
Author Name Unknown Organization [facility] Address [address] [place] [address] Phone [phone] Care Team Providers Care Nitriles Lab Technician Name Role Phone Alexy Al MD Primary Care Provider +1- [phone] Encounter Details Date Type Department Care Team (Late st Contact Info) Description 05/10/2023 Telephone [facility] [address] [place] [address] Alexy Al MD [address] [place] [address] Allergies No known active allergiesdocumented [...] IS IV iron anaphylaxis protocol). 2 mL 05/25/2022 [...] daily E11.9 E11.29 400 Each 08/31/2022 Active Additional Information Patient not taking.Reported [...] Strip 08/31/2022 4 Active OneTouch Delica Plus [id number] USE TO TEST BLOOD SUGAR TWICE DAILY [...] repeat CT. Coronary artery disease invo lving [place] heart without angina pectoris 05/08/2022 Last Assessment [...] encounter Miscellaneous Notes * Telephone Encounter - Jen Walker OSA - 05/10/2023 2:13 PM EST Scheduled and patient aware. 05/10/2023 * Telephone Encounter - Alexy Al MD - 05/10/2023 1:47 PM EST She can be placed in that appt - or the next after if that is taken * Telephone Encounter - Jen Walker OSA - 05/10/2023 1:45 PM EST July 06 * Telephone Encounter - Alexy Al MD - 05/10/2023 1:42 PM EST When is my next available 20 min appt? * Telephone Encounter - Jen Walker OSA - 05/10/2023 12:17 PM EST Per 05/10/2023 checkout notes: Return for pt has appt in September - want to keep that - but please schedule for 6 week follow up. Can be 20 min. Nothing available please advise date and time. 05/10/2023 documented in this encounter Plan of Treatment Upcoming Encounters Date Type Department Care Team (Late st Contact Info) Description 05/18/2023 1:00 PM EST [facility] Visit [facility] [address] [address] Crescencio Santillan PA-C [address] [place] [address] 05/31/2023 12:10 PM EST Office Visit Vascular Surgery, [facility] [address] [place] [address] Jonathan Iverson MD [address] [place] [address] 06/05/2023 12:30 PM EST [facility] Visit [facility] [address] [place] [address] Cheryl Ruiz, RN [address] [place] [address] 07/06/2023 2:20 PM EST Office Visit [address] [phone] Alexy Al [facility] [address] [facility] [address] 08/17/2023 12:40 PM EDT Office Visit Hepatology, [facility] [address] [place] [address] Dayan Sanford DO [address] [place] [address] 10/06/2023 10:40 AM EDT Office Visit Family Practice, [place] [address] [place] [phone] Alexy Al MD [address] [facility] [place] [address] Health Maintenance Due Date Last Done Comments Hepatitis B (1 of 3 - Risk 3-dose series) 2000 Diabetic Foot Exam 03/20/2020 03/20/2019, 1 , 09/05/2016, Additional history exists Diabetic Eye Exam 01/03/2023 01/03/2022, , 2019, Additional history exists COVID-19 Vaccine ( season) 2023 03/10/2021, 08/27/2020, 08/06/2020 Depression Screening 03/14/2023 03/14/2022 B-12 07/04/2023 07/04/2022, 01/0 01/2023, 01/27/2021, Additional history exists HbA1c 09/26/2023 [...] D LEVEL ONCE IN A LIFETIME-USE SMARTSET# [id number] Completed 01/27/2021, 08/21/2017, 03/08/2017, Additional history exists [...] this encounter Medical Devices Implanted Type Area International Relations Professor Device Identifier Shelf Expiration Date Model / Serial / Lot Stent Graft [id number] - [id number] - [id number] Implanted:Qty: 1 on 05/09/2022 by Cedrick Phillips MD at [facility] [place] : SHILPINAZIA [id number] 02/11/2025 [id number] 3 / [id number] / [id number] documented as of this encounter Advance Directives [...] Advance Directives occurred with: Patient Care Teams Nitriles Lab Technician Relationship Specialty Start Date End Date Alexy Al MD [address] [place] [address] PCP - General 07/29/08 documented as of this encounter
--- OUTSIDE RECORDS SUMMARY | 2023-05-12 22:44 | External Medical Summary | Summary of Care ---
Author Name Unknown Organization [facility] Address [address] [facility] [place] [address] Phone [phone] Care Team Providers Care Experience Design Director Name Role Phone Angelica Rodas MD Primary Care Provider +1- [phone] Reason for Visit * Reason Comments Medication Refill Encounter Details Date Type Department Care Team (Late st Contact Info) Description 05/12/2023 Refill [facility] [address] [place] [address] Angelica Rodas MD [address] [place] [address] Allergies No known active allergiesdocumented as of this encounter (statuses as of 05/12/2023) Medications Medication Sig Dispensed Refills Start Date [...] in the event of anaphylactic reaction per [facility] IV iron anaphylaxis protocol). 2 mL 3 Active Additional Information Patient not taking.Reported on 08/11/2022 EPINEPHrine (Anaphylaxis) 1 MG/ML Injection Solution Inject 0.3 mL into a large muscle as needed for Anaphylaxis (severe allergic reaction) (To be administered in the event of anaphylactic reaction per [facility] IV iron anaphylaxis protocol). May repeat every [...] daily E11.9 E11.29 400 Each 3 Active Additional Information Patient not taking.Reported on 05/04/2023 Zoster Vac Recomb Adjuvanted 50 MCG/0.5ML Intramuscular Suspension Reconstituted (Shingrix)Indicati ons:Need for vaccination for zoster Inject 0.5 mL into a large muscle now and repeat dose in 60 to 180 days 1 Each 1 3 Active Additional Information Patient not taking.Reported [...] 3 08/31/19 24 Active OneTouch Delica Plus [id number] USE TO TEST BLOOD SUGAR TWICE DAILY 400 Each 1 3 08/31/19 24 Active NovoLIN 70/30 (70-30) 100 UNIT/ML Subcutaneous SuspensionIndicati ons:Type 2 diabetes mellitus with hemoglobin A1c goal of less than 8.0% (HCC) INJECT 25 UNITS SUBCUTANEOUSLY BEFORE BREAKFAST AND INJECT 10 UNITS BEFORE SUPPER. 40 mL 1 3 08/31/19 24 Active metFORMIN HCl [...] 100 Tablet 1 3 03/22/20 24 Active Furosemide 40 MG Oral Tablet (Lasix)Indications :Chronic heart failure with preserved ejection fraction (HCC) Take 1.5 Tablets by mouth in the morning. 135 Tablet 1 3 Active Losartan Potassium 25 MG Oral Tablet (Cozaar)Indication s:HTN, goal below 140/90 TAKE ONE TABLET BY MOUTH IN THE MORNING 100 Tablet 3 3 04/27/20 24 Active Carvedilol 3.125 MG Oral Tablet (Coreg) Take 1 Tablet by mouth 2 times a day with morning and evening meals. 60 Tablet 1 3 Active Pantoprazole Sodium 40 MG Oral Tablet Delayed Release (Protonix) TAKE ONE TABLET BY MOUTH IN THE MORNING 100 Tablet 1 3 05/11/20 24 Active Pantoprazole Sodium 40 MG Oral Tablet Delayed Release (Protonix) TAKE ONE TABLET BY MOUTH IN THE MORNING 100 Tablet 1 3 05/12/20 23 Discontinu ed(Refill) documented as of this encounter (statuses as of 05/12/2023) Active Problems Problem Noted Date Diagnosed Date [...] repeat CT. Coronary artery disease invo lving [place] heart without angina pectoris 05/08/2022 Last Assessment [...] as of this encounter (statuses as of 05/12/2023) Resolved Problems Problem Noted Date Diagnosed Date [...] as of this encounter (statuses as of 05/12/2023) Immunizations Name Administration Dates Next Due COVID-19 mRNA, LNP-s, No Pre serve, 2-Dose Series (EnWave) 03/10/2021,08/27/2020,08/06/2020 Pneumococcal Conjugate Vacc, 13 Valent (Prevnar) [...] Notes * Telephone Encounter - Kuldip Lechuga [facility] - 05/12/2023 12:16 PM EST Signed Prescriptions: Disp Refills Pantoprazole Sodium 40 MG Oral Tablet Adrienne*100 Ta*1 Sig: TAKE ONE TABLET BY MOUTH IN THE MORNINGAuthorizing Provider: ANGELICA RODAS User: KULDIP LECHUGA documented in this encounter Plan of Treatment Upcoming Encounters Date Type Department Care Team (Late st Contact Info) Description 05/18/2023 1:00 PM EST [facility] [place] [address] [facility] [place] [address] Crescencio Santillan PA-C [address] [facility] [place] [address] 05/31/2023 12:10 PM EST Office Visit Vascular Surgery, [facility] [address] [facility] [place] [address] Jonathan Iverson MD [address] [place] [address] 06/05/2023 12:30 PM EST [facility] [place] [address] Cheryl Ruiz RN [address] [place] [address] 07/06/2023 2:20 PM EST Office Visit [address] [phone] Angelica Rodas MD [address] [place] [address] 08/17/2023 12:40 PM EDT Office Visit Hepatology, [facility] [place] [address] Dayan Sanford DO [address] [place] [address] 10/06/2023 10:40 AM EDT Office Visit [place] [address] [place] [place] [phone] Angelica Rodas MD [address] [place] [address] Health Maintenance Due Date Last Done Comments Hepatitis B (1 of 3 - Risk 3-dose series) 2000 Diabetic Foot Exam 03/20/2020 03/20/2019, 1 , 09/05/2016, Additional history exists Diabetic Eye Exam 01/03/2023 01/03/2022, , 2019, Additional history exists COVID-19 Vaccine ( season) 2023 03/10/2021, 08/27/2020, 08/06/2020 Depression Screening 03/14/2023 03/14/2022 B-12 07/04/2023 07/04/2022, 010 01/2023, 01/27/2021, Additional history exists HbA1c 09/26/2023 03/28/2023, 0708/2022, 09/05/2022, Additional history exists Albumin/Creatinine Ratio 03/28/2024 023, 08/18/2021, 10/29/2019, Additional history exists GFR 05/10/2024 05/10/2023, 04/14, 04/27/2023, Additional history exists DTaP,Tdap,and Td Vaccines (2 - Td or Tdap) 06/05/2024 06/05/2014 DXA Scan 11/28/2024 11/28/2022, 04/16, 12/07/2016, Additional history exists Pneumococcal Vaccine: 65+ Years Completed 06/04/2015, 07/29/2008 VITAMIN D LEVEL ONCE IN A LIFETIME-USE SMARTSET# [id number] Completed 01/27/2021, 08/21/2017, 03/08/2017, Additional history exists [...] this encounter Medical Devices Implanted Type Area Keyboard Instrument Tuner Device Identifier Shelf Expiration Date Model / Serial / Lot Stent Graft [id number] - [id number] - [id number] Implanted:Qty: 1 on 05/09/2022 by Cedrick Phillips MD at [facility] [place] : MARTIN [id number] 02/11/2025 [id number] 3 / [id number] / [id number] documented as of this encounter Advance Directives [...] Advance Directives occurred with: Patient Care Teams Experience Design Director Relationship Specialty Start Date End Date Angelica Rodas MD [address] [place] [address] PCP - General 07/29/08 documented as of this encounter
--- OUTSIDE RECORDS SUMMARY | 2023-05-12 22:45 | External Medical Summary | Summary of Care ---
Author Name Unknown Organization [facility] Address [address] [place] [address] Phone [phone] Care Team Providers Care Private Branch Exchange Service Adviser Name Role Phone Alexy Al MD Primary Care Provider +1- [phone] Reason for Visit * Reason Onset Date Comments Appointment 04/28/2023 Encounter Details Date Type Department Care Team (Late st Contact Info) Description 04/28/2023 [facility]phone [facility] [place] [address] [place], [place] [phone] Services, Scheduling [address] [place] [address] Appointment (//) Allergies No known active allergiesdocumented as of this encounter (statuses as of 04/28/2023) Medications Medication Sig Dispensed Refills Start Date [...] GHIS IV iron anaphylaxis protocol 1000 mL 11 05/25/2022 Active Additional Information Patient not taking.Reported [...] Strip 08/31/2022 4 Active OneTouch Delica Plus [id number] USE TO TEST BLOOD SUGAR TWICE DAILY [...] as of this encounter (statuses as of 04/28/2023) Active Problems Problem Noted Date Diagnosed Date [...] repeat CT. Coronary artery disease invo lving [place] heart without angina pectoris 05/08/2022 Last Assessment [...] as of this encounter (statuses as of 04/28/2023) Resolved Problems Problem Noted Date Diagnosed Date [...] as of this encounter (statuses as of 04/28/2023) Immunizations Name Administration Dates Next Due COVID-19 [...] encounter Miscellaneous Notes * Telephone Encounter - Nabil Rosa OSA - 04/28/2023 4:24 PM EST [facility] Engagement: Engagement Attempt 1: Contacted - Agreed to home-based services Scheduled appointment information: call to spouse Adrian and he agreed to [facility] enrollment, scheduled: RNCM for 05/04 & AP 05/18/23, spouse asked to be reminded of AP appt on 05/04 Home Information: No data was found Advance Care Planning (ACP): No data was found Has Living Will or Advance Directive: No data was found Anticipated Sub-Program: Focused Care Management (3-9 months) Confirmation of Sub-Program Type (by care team automobile assembler): No data was found Handoff Information: Current care team notified via: No data was found Current telemonitoring equipment: No data was found documented in this encounter Plan of Treatment Upcoming Encounters Date Type Department Care Team (Late st Contact Info) Description 05/04/2023 12:30 PM EST [facility] [place] [address] Cheryl Ruiz, RN [address] [place] [address] 05/10/2023 11:20 AM EST Office Visit [facility] [address] [facility] [phone] Alexy Al MD [address] [facility] [address] 05/18/2023 1:00 PM EST [facility] [address] [facility] [place] [address] Crescencio Santillan PA-C [facility] [place] [address] 08/17/2023 12:40 PM EDT Office Visit Hepatology, [facility] [address] [facility] [place] [address] Dayan Sanford DO [facility] [place] [address] 10/06/2023 10:40 AM EDT Office Visit [facility] [address] [facility] [phone] Alexy Al MD [address] [facility] [address] Health Maintenance Due Date Last Done Comments [...] D LEVEL ONCE IN A LIFETIME-USE SMARTSET# [id number] Completed 01/27/2021, 08/21/2017, 03/08/2017, Additional history exists [...] this encounter Medical Devices Implanted Type Area Weather Algorithm Scientist Device Identifier Shelf Expiration Date Model / Serial / Lot Stent Graft [id number] - [id number] - [id number] Implanted:Qty: 1 on 05/09/2022 by Cedrick Phillips MD at [facility] GET[place] : MARTIN [id number] 02/11/2025 8545 3 / [id number] / [id number] documented as of this encounter Advance Directives Latest Code Status on File Code Status Date Activated Date Inactivated Comments No Code 04/26/2023 1:57 AM This orde r reflects the patients wishes and were consensually agreed upon. Question Answer Comments Discussion of Advance Directives occurred with: Patient Code Status History Code Status Date Activated Date Inactivated Comments No Code 05/08/2022 11:42 AM 05/11/2022 7:56 PM Th is order reflects the patients wishes and were consensually agreed upon. Question Answer Comments Discussion of Advance Directives occurred with: Patient Care Teams Private Branch Exchange Service Adviser Relationship Specialty Start Date End Date Alexy Al MD [address] [place] [address] PCP - General 07/29/08 documented as of this encounter
--- OUTSIDE RECORDS SUMMARY | 2023-05-12 22:45 | External Medical Summary ---
Author Name Unknown Address Unknown Organization [id number]:[facility]ATORY [place] [address] [address] [facility] [address] Laboratory Report Ordering Provider Test Date Status CLARK DOMINGUEZ 05/10/2023 12:11:04 Final Observation Date Value Abnormality Reference (Units ) Status WBC, Total 05/10/2023 12:11:04 7.09 4.00-10.80 (K/uL) Final RBC 05/10/2023 12:11:04 3.04 3.85-5.15 (M/uL) Final Hemoglobin 05/10/2023 12:11:04 8.4 Below low normal 12.0-15.3 (g/dL) Final HCT 05/10/2023 12:11:04 27.5 Below low normal 36.0-45.2 (%) Final MCV 05/10/2023 12:11:04 90.5 81.5-97.5 (fL) Final MCH 05/10/2023 12:11:04 27.6 27.0-34.0 (pg) Final MCHC 05/10/2023 12:11:04 30.5 32.0-36.0 (g/dL) Final RDW 05/10/2023 12:11:04 19.9 11.5-15.5 (%) Final Platelets 05/10/2023 12:11:04 132 Below low normal 140-400 (K/uL) Final MPV 05/10/2023 12:11:04 12.5 6.6-11.1 (fL) Final Nucleated erythrocytes/100 leukocytes [Ratio] in Blood by Automated count 05/10/2023 12:11:04 0 <=0 (/100 WBCs) Final Performing Location [facility]ORY [facility] [place] [facility] [place] [address]
--- OUTSIDE RECORDS SUMMARY | 2023-05-12 22:45 | External Medical Summary ---
Author Name Unknown Address Unknown Organization [id number]:[facility] [place] [address] [place] [address] Laboratory Report Ordering Provider Test Date Status CAROLYN DOMINGUEZCASSANDRA 05/10/2023 12:11:04 Final Observation Date Value Abnormality Reference (Units ) Status BUN 05/10/2023 12:11:04 46 Above high normal 6-20 (mg/dL) Final Creatinine 05/10/2023 12:11:04 1.5 Above high normal 0.5-1.0 (mg/dL) Final Glomerular filtration rate/1.73 sq M.predicted [Volume Rate/Area] in Serum, Plasma or Blood by Creatinine-based formula (CKD-EPI) 05/10/2023 12:11:04 35 Below low normal >=60 (mL/min) Final eGFR is calculated based on the CKD-EPI 2020 equation SODIUM 05/10/2023 12:11:04 138 135-146 (m mol/L) Final Potassium 05/10/2023 12:11:04 4.2 3.5-5.1 (m mol/L) Final Cl 05/10/2023 12:11:04 100 98-107 (mm ol/L) Final CO2 05/10/2023 12:11:04 23 22-32 (mmo l/L) Final Anion gap 05/10/2023 12:11:04 15 7-15 (mmol /L) Final Glucose 05/10/2023 12:11:04 191 Above high normal 70 -120 (mg/dL) Final Calcium 05/10/2023 12:11:04 9.1 8.4-10.2 ( mg/dL) Final Performing Location [facility] [place] [address] [place] [address]
--- OUTSIDE RECORDS SUMMARY | 2023-05-12 22:45 | External Medical Summary ---
Author Name Unknown Address Unknown Organization K01:[facility] - [address] [place] [address] Laboratory Report Ordering Provider Test Date Status CORA MCNAIR 04/28/2023 08:13:00 Final Observation Date Value Abnormality Reference (Units ) Status Magnesium 04/28/2023 08:13:00 1.8 1.5-2.6 (m g/dL) Final Performing Location LAB[facility]ATORY [facility] - [address] [place] [address]
--- OUTSIDE RECORDS SUMMARY | 2023-05-12 22:45 | External Medical Summary | Summary of Care ---
Author Name Unknown Organization [facility] Address [address] [facility] [place] [address] Phone [phone] Care Team Providers Care Nascar Driver Name Role Phone Alexy Al MD Primary Care Provider +1- [phone] Encounter Details Date Type Department Care Team (Late st Contact Info) Description 05/01/2023 Population Health External Data Unspecified Department Allergies No known active allergiesdocumented as of this encounter (statuses as of 05/02/2023) Medications Medication Sig Dispensed Refills Start Date [...] in the event of anaphylactic reaction per [facility] IV iron anaphylaxis protocol). May repeat [...] 1 08/31/2022 4 Active OneTouch Delica Plus Csocpx75U USE TO TEST BLOOD SUGAR TWICE DAILY 400 Each 1 08/31/2022 4 Active NovoLIN 70/30 (70-30) 100 UNIT/ML Subcutaneous SuspensionIndicatio ns:Type 2 diabetes mellitus with hemoglobin A1c goal of less than 8.0% ([facility]) INJECT 25 UNITS SUBCUTANEOUSLY BEFORE BREAKFAST AND [...] AFTERNOON 100 Tablet 3 03/06/2023 4 Active [employer]Touch Verio w/Device Kit Use up to 4 [...] as of this encounter (statuses as of 05/02/2023) Active Problems Problem Noted Date Diagnosed Date [...] repeat CT. Coronary artery disease invo lving [place] heart without angina pectoris 05/08/2022 Last Assessment [...] as of this encounter (statuses as of 05/02/2023) Resolved Problems Problem Noted Date Diagnosed Date [...] as of this encounter (statuses as of 05/02/2023) Immunizations Name Administration Dates Next Due COVID-19 [...] Description 05/04/2023 12:30 PM EST [facility] [address] [address] Cheryl Ruiz RN [address] [place] [address] 05/10/2023 11:20 AM EST Office Visit [facility] [address] [facility] [place] [phone] Alexy Al MD [address] [place] [address] 05/18/2023 1:00 PM EST [facility] Visit [facility] [address] [address] Crescencio Santillan PA-C [address] [address] 08/17/2023 12:40 PM EDT Office Visit Hepatology, [facility] [address] [place] [address] Dayan Sanford DO [address] [place] [address] 10/06/2023 10:40 AM EDT Office Visit [facility] [address] [place] [address] Alexy Al MD [address] [place] [address] Health Maintenance Due Date Last Done Comments [...] D LEVEL ONCE IN A LIFETIME-USE SMARTSET# [id number] Completed 01/27/2021, 08/21/2017, 03/08/2017, Additional history exists [...] this encounter Medical Devices Implanted Type Area Inorganic Chemistry Professor Device Identifier Shelf Expiration Date Model / Serial / Lot Stent Graft [id number] - [id number] - [id number] Implanted:Qty: 1 on 05/09/2022 by Cedrick Phillips MD at [facility] [place] : MARTIN [id number] 02/11/2025 8545 3 / [id number] / [id number] documented as of this encounter Advance Directives [...] Directives occurred with: Patient Care Teams Nascar Driver Relationship Specialty Start Date End Date Alexy Al MD [address] [place] [address] PCP - General 07/29/08 documented as of this encounter
--- OUTSIDE RECORDS SUMMARY | 2023-05-12 22:45 | External Medical Summary ---
Author Name Unknown Address Unknown Organization K01:LABORATORY [facility] [place] - [address] [place] [address] Laboratory Report Ordering Provider Test Date Status CORA MCNAIR 04/28/2023 08:13:00 Final Warfarin Therapy
INR: 2 .0-3.0 conventional anticoagulation
INR: 2.5- 3.5 high intensity anticoagulation Observation Date Value Abnormality Reference (Units ) Status PT 04/28/2023 08:13:00 17.1 Above high normal 11 .6-15.2 (seconds) Final INR 04/28/2023 08:13:00 1.4 Above high normal 0. 8-1.2 Final Performing Location LABORATORY [facility] [place] - [address] [place] [address]
--- OUTSIDE RECORDS SUMMARY | 2023-05-12 22:45 | External Medical Summary ---
Author Name Unknown Address Unknown Organization : Laboratory Report Ordering Provider Test Date Status CORA MCNAIR 04/28/2023 06:26:36 Final Observation Date Value Abnormality Reference (Units ) Status Glucose Point of Care 04/28/2023 06:26:36 114 70-120 (mg/dL) Final Performing Location
--- OUTSIDE RECORDS SUMMARY | 2023-05-12 22:45 | External Medical Summary ---
Author Name Unknown Address Unknown Organization [id number]:[facility] [place] [address] [place] [address] Laboratory Report Ordering Provider Test Date Status CLARK DOMINGUEZ 05/10/2023 12:11:04 Final Exclude Heart Failure: <300 pg/mL
Diagnose Heart Failure:
Age <50 yr: >450 pg/mL
50-75 yr: >900 pg/mL
>75 yr: >1800 pg/mL
GFR is 30-59 mL/min: >1200 pg/mL or Age- adjusted values
GFR <30 mL/min: do not use, not reliable

Prognostic threshold: 1000 pg/mL Observation Date Value Abnormality Reference (Units ) Status BNP, Pro-hormone 05/10/2023 12:11:04 197 <30 0 (pg/mL) Final Performing Location [facility] [place] [address] [place] [address]
--- OUTSIDE RECORDS SUMMARY | 2023-05-12 22:45 | External Medical Summary | Summary of Care ---
Author Name Unknown Organization [facility] Address [address] [place] [address] Phone [phone] Care Team Providers Care Telemarketing Sales Representative Name Role Phone Alexy Al MD Primary Care Provider [phone] Reason for Referral * Evaluate & Treat - Unlimited Visits (Within 10 days (routine)) - Authorized Specialty Diagnoses / Procedures Referred By Contact Referred To Contact Vascular Surgery / Cardiovascular Surgery Diagnoses Mesenteric ischemia (HCC) Calvin Mcclure MD [address] [place] [address] Referral ID Status Reason Start Date Expiration Date Visits Requested Visits Authorized [id number] Authorized Specialty Services Required 3 [phone] Question Answer Referral Priority Within 10 days (routine) Where should this appointment be scheduled? [facility] What condition is the patient being seen for? 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 Mesenteric Ischemia/Post prandial pain Comments Discharge Order * Evaluate & Treat - Unlimited Visits (Within 10 days (routine)) - Authorized Specialty Diagnoses / Procedures Referred By Contac t Referred To Contact Gastroenterology Diagnoses Cirrhosis of liver without ascites, unspecified hepatic cirrhosis type (HCC) Calvin Mcclure MD [address] [place] [address] Referral ID Status Reason Start Date Expiration Date Visits Requested Visits Authorized [id number] Authorized Specialty Services Required 3 [phone] Question Answer Referral Priority Within 10 days (routine) Where should this appointment be scheduled? [facility] For what condition is the patient being referred? Liver conditions Comments Discharge Order Reason for Visit * Auth/Cert Specialty Diagnoses / Procedures Referred By Kristi esquivel Referred To Contact Diagnoses Lower GI bleed lower GI bleed, ischemic colitis Referral ID Status Reason Start Date Expiration Date Visits Re quested Visits Authorized [id number] [phone] Encounter Details Date Type Department Care Team (Latest Contact Info) Description 04/26/2023 1:16 AM EST - 04/28/2023 1:49 PM EST [id number] [address], [place] [id number] Laura Leavitt MD [address], [place] [id number] Calvin Mcclure MD [address] [place] [address] Regan Jackson MD [address] [place] [address] Colonoscopy Discharge Disposition: Home - Self Care Allergies No known active allergiesdocumented as of this encounter (statuses as of 04/29/2023) Medications Medication Sig Dispensed Refills Start Date End Date Status CENTRUM SILVER PO TABS 1 TABLET DAILY 1 Tab 1 10/24/19 10 Active OSTEO BI-FLEX JOINT SHIELD PO TABS daily OTC 1 Tab 1 10/24/19 10 Active B Complex 100 TR Oral Tablet [...] reaction (infusion reaction protocol)). 2 Tablet 11 05/25/19 23 Active Sodium Chloride 0.9 % Intravenous Solution To be administered in the event of anaphylactic reaction per GHIS IV iron anaphylaxis protocol 1000 mL 05/25/19 Active Additional Information Patient not taking.Reported on 09/22/2022 Dexamethasone Sodium Phosphate 4 MG/ML Injection Solution (Decadron) Inject 8 mg intravenously as needed for Anaphylaxis (severe allergic reaction) (To be administered in the event of anaphylactic reaction per GHIS IV iron anaphylaxis protocol). 2 mL 05/25/19 Active Additional Information Patient not taking.Reported on 08/11/2022 EPINEPHrine (Anaphylaxis) 1 MG/ML Injection Solution Inject 0.3 mL into a large muscle as needed for Anaphylaxis (severe allergic reaction) (To be administered in the event of anaphylactic reaction per GHIS IV iron anaphylaxis protocol). May repeat every 15 min as needed per infusion reaction protocol 2 mL 05/25/19 Active Melatonin 10 MG Oral Tablet Take 1 Tablet by mouth at bedtime. 0 Active Vitron-C 65-125 MG Oral Tablet (Iron-Vitamin C 65-125 mg per tab) Take 1 Tablet by mouth daily with dinner. 90 Tablet 06/10/19 Active OneTouch Delica Lancets 33G Test blood sugar twice daily E11.9 E11.29 400 Each 09/01/19 Active Zoster Vac Recomb Adjuvanted 50 MCG/0.5ML Intramuscular Suspension Reconstituted (Shingrix)Indicat ions:Need for vaccination for zoster Inject 0.5 mL into a large muscle now and repeat dose in 60 to 180 days 1 Each 09/17/19 Active Additional Information Patient not taking.Reported on 03/28/2023 Magnesium 400 MG Oral Capsule Take 1 Capsule by mouth in the morning. 90 Capsule 10/12/19 Active Magnesium Oxide -Mg Supplement 400 MG Oral Capsule TAKE ONE CAPSULE BY MOUTH EVERY MORNING 90 Capsule 10/12/19 024 Active Insulin Syringe-Needle U-100 30G X 5/16" 1 ML USE TO INJECT INSULIN TWICE DAILY 200 Each 09/01/19 024 Active Glucose Blood In Vitro Strip USE TO TEST BLOOD SUGAR TWICE DAILY 200 Strip 09/01/19 024 Active OneTouch Delica Plus Fudodp70H USE TO TEST BLOOD SUGAR TWICE DAILY 400 Each 09/01/19 23 024 Active NovoLIN 70/30 (70-30) 100 UNIT/ML Subcutaneous SuspensionIndicat ions:Type 2 diabetes mellitus with hemoglobin A1c goal of less than 8.0% (HCC) INJECT 25 UNITS SUBCUTANEOUSLY BEFORE BREAKFAST AND INJECT 10 UNITS BEFORE SUPPER. 40 mL 1 09/01/19 23 024 Active Pantoprazole Sodium 40 MG Oral Tablet Delayed Release (Protonix) TAKE ONE TABLET BY MOUTH IN THE MORNING 100 Tablet 1 09/01/19 23 024 Active metFORMIN HCl 1000 MG Oral Tablet (Glucophage)Indic ations:Type 2 diabetes mellitus with hemoglobin A1c goal of less than 7.0% (HCC) TAKE ONE TABLET BY MOUTH IN THE MORNING AND ONE TABLET BEFORE BEDTIME WITH FOOD. 200 Tablet 1 09/01/19 23 024 Active Clopidogrel Bisulfate 75 MG Oral Tablet (pLAVix) Take 1 Tablet by mouth in the morning. 100 Tablet 3 01/27/20 23 Active Alendronate Sodium 70 MG Oral Tablet (Fosamax) TAKE ONE TABLET BY MOUTH ONCE A WEEK WITH 8OZ OF WATER 30 MINUTES BEFORE THE FIRST MEAL OF THE DAY. REMAIN UPRIGHT FOR 30 MINUTES AFTER TAKING TABLET 12 Tablet 1 02/17/20 23 024 Active Atorvastatin Calcium 40 MG Oral Tablet (Lipitor)Indicati ons:Dyslipidemia, goal LDL below 100 TAKE ONE TABLET BY MOUTH EVERY AFTERNOON 100 Tablet 3 03/06/20 23 024 Active OneTouch Verio w/Device Kit Use up to 4 times a day E11.9 E11.29 1 Kit 0 03/06/20 Active Cinacalcet HCl 30 MG Oral Tablet (Sensipar)Indicat ions:Hyperparathy roidism, primary (HCC) TAKE ONE TABLET BY MOUTH IN THE MORNING. 100 Tablet 1 03/23/20 23 024 Active Furosemide 40 MG Oral Tablet (Lasix)Indication s:Chronic heart failure with preserved ejection fraction (HCC) Take 1.5 Tablets by mouth in the morning. 135 Tablet 1 04/18/20 23 Active Carvedilol 3.125 MG Oral Tablet (Coreg) Take 1 Tablet by mouth 2 times a day with morning and evening meals. 60 Tablet 1 04/28/20 23 Active Losartan Potassium 25 MG Oral Tablet (Cozaar)Indicatio ns:HTN, goal below 140/90 TAKE ONE TABLET BY MOUTH IN THE MORNING 100 Tablet 1 09/01/19 23 023 Discontinued(Re fill) Metoprolol Tartrate 25 MG Oral Tablet (Lopressor) TAKE ONE-HALF TABLET BY MOUTH TWICE DAILY 100 Tablet 1 03/25/20 23 023 Discontinued documented as of this encounter (statuses as of 04/29/2023) Active Problems Problem Noted Date Diagnosed Date [...] repeat CT. Coronary artery disease invo lving [place] heart without angina pectoris 05/08/2022 Last [...] as of this encounter (statuses as of 04/29/2023) Resolved Problems Problem Noted Date Diagnosed Date [...] as of this encounter (statuses as of 04/29/2023) Immunizations Name Administration Dates Next Due COVID-19 mRNA, LNP-s, No Pre serve, 2-Dose Series ([email or web address]) 03/10/2021,08/27/2020,08/06/2020 Pneumococcal Conjugate Vacc, 13 Valent (Prevnar) [...] Sign Reading Time Taken Comments Blood Pressure 130/45 04/28/2023 11:00 AM EST Pulse 71 04/28/2023 11:00 AM EST Temperature 36.8 C (98.2 F) 04/28/2023 1 1:00 AM EST Respiratory Rate 18 04/28/2023 11:0 0 AM EST Oxygen Saturation 98% 04/28/2023 11: 00 AM EST Inhaled Oxygen Concentration - - Weight 75.2 kg (165 lb 12.6 oz) 04/26/2023 1:17 AM EST Height 160 cm (5' 3") 04/26/2023 1:17 AM EST Body Mass Index 29.37 04/26/2023 1:17 AM EST documented in this [...] No 05/08/2022 documented as of this encounter Discharge Summaries * Calvin Mcclure MD - 04/28/2023 1:49 PM EST Images from the original note were not included. [address] [address] Admission Date: 04/26/2023 Discharge Date: 04/28/2023 RECOMMENDED TO DO FOR NEXT PROVIDER(S): Please repeat CBC to monitor Hgb within 1-2 weeks of discharge Ensure vascular surgery follow up in light of lower GIB on plavix with SMA stent Ensure hepatology follow up for cirrhosis (referral made on discharge) REASON(S) FOR MEDICATION CHANGE(S): Transitioned OFFIC[employer] REPORTER metoprolol to carvedilol given grade 2 esophageal varices DISPOSITION ON DISCHARGE: Home - Self Carehome Active Hospital Problems Diagnosis Superior mesenteric artery stenosis (HCC) Portal hypertension (HCC) Hepatic cirrhosis (HCC) (HFpEF) heart failure with preserved ejection fraction (HCC) Coronary artery disease involving [place] heart without angina pectoris Cerebrovascular disease, arteriosclerotic, post-stroke HTN, goal below 140/90 Type 2 diabetes mellitus with hemoglobin A1c goal of less than 8.0% (HCC) Dyslipidemia, goal LDL below 100 Resolved Hospital Problems Diagnosis Date Resolved *Principal Diagnosis - GI bleed 04/28/2023 Mesenteric ischemia (HCC) 04/28/2023 Ischemic colitis (HCC) 04/28/2023 ADMISSION HISTORY & PHYSICAL EXAM (focused): PRESENTING PROBLEM: GI bleed, transfer from [facility] HPI: Martine Russell is an 82 YO female with PMH T2DM, HFpEF, ischemic colitis, portal HTN, SMA stenosis,DLD, GERD, HTN, hx CVA, cirrhosis, who [place] [facility] [place] [facility] for GI bleed. Patient reports on Monday morning she started having bright red blood in her stools. Once she ran out of stool, there was just blood coming out. She reports this has never happened to her before. He denies any abdominal pain, nausea, vomiting, headache, dizziness, chest pain, SOB. Per paperwork review from [facility], patient admitted on 04/24/23. She received total of 3U PRBC. Was onoctreotide, protonix, and rocephin. EGD negative for source of bleeding. Due to her having mesenteric ischemia and possible need for IR intervention, she was transferred to [facility]. Prior to transfer last evening, was her last episode of bright red blood in stool. Patient is a NO CODE. She would like her daughter, Madelyn Castaneda, to make decisions on her behalf should she be unable to. I have uploaded imaging to [employer] and nominated to PACS. BP: 134 mmHg/79 mmHg (04/26/23116) Pulse: 84 (04/26/23116) Temp: 36.72 C (04/26/23116) Resp: 20 (04/26/23116) SpO2: 99 % (04/26/23116) Constitutional: no acute distress HEENT: normal: normocephalic, atraumatic; no masses, tenderness, or adenopathy Eyes: sclera and conjunctiva normal CV: normal rate and rhythm, no murmur, gallops or rub Chest: normal respiratory effort, breath sounds normal Abdomen: normal: soft, bowel sounds normal, no masses, tenderness or organomegaly Extremities: no clubbing, cyanosis, or edema, otherwise grossly normal, warm, and dry Skin: warm, dry, intact: Neuro: alert, oriented to person, place, and time Psych: normal mood and affect HOSPITAL COURSE (focused): [facility]. Patient [facility] to [facility] with BRBPR. She required 3 units PRBC. She underwent EGD which was negative for acute bleed but did reveal grade 2 esophageal varices. Given concern for lower GI source and history of ischemic colitis with SMA stent, patient was transferred to [facility]. Gastroenterology evaluated the patient and patient went for colonoscopy 04/27. Colonoscopy revealed diverticulosis with old blood, no active bleeding. There was no evidence of recurrent ischemic colitis. After procedure patient had no additional evidence of hematochezia. She remained hemodynamically stable and her hemoglobin remained stable. The presumed etiology of her lower GI bleed was diverticulosis. Patient was restarted on her OFFICIAL COURT REPORTER Plavix. She was referred for outpatient vascular surgery follow-up to discuss Plavix moving forward given her SMA stent and now lower GIbleed. Patient had new diagnosis of cirrhosis. Given esophageal varices on EGD, I transitioned her OFFICIAL [employer] REPORTER metoprolol to carvedilol. She was referred to hepatology on discharge for further workup and managementof her cirrhosis. At the time of discharge patient was hemodynamically stable without any evidence of ongoing active bleeding and was safe to discharge home. Operations & Procedures: Colonoscopy 04/27/23 Complications: none significant Significant Lab and Imaging Results: Latest Reference Range & Units 04/26/23 01:30 04/26/23 07:31 04/27/23 06:44 04/28/23 08:13 Sodium 135 - 146 mmol/L 143 142 139 139 Potassium 3.5 - 5.1 mmol/L 4.0 3.8 3.4 (L) 3.9 Chloride 98 - 107 mmol/L 107 110 (H) 107 108 (H) CO2 22 - 32 mmol/L 23 25 25 23 BUN 6 - 20 mg/dL 28 (H) 27 (H) 17 11 Creatinine 0.5 - 1.0 mg/dL 1.0 0.9 0.8 0.8 Estimated Glomerular Filtration Rate >=60 mL/min 56 (L) 62 72 76 Anion Gap 7 - 15 mmol/L 13 7 7 8 Glucose 70 - 120 mg/dL 194 (H) 198 (H) 179 (H) 139 (H) Calcium 8.4 - 10.2 mg/dL 7.6 (L) 7.7 (L) 7.4 (L) 7.7 (L) Magnesium 1.5 - 2.6 mg/dL 1.6 1.6 1.8 Phosphorus 2.5 - 4.8 mg/dL 4.2 Protein 6.0 - 8.3 g/dL 5.4 (L) 5.3 (L) 5.3 (L) 5.8 (L) (L): Data is abnormally low (H): Data is abnormally high Latest Reference Range & Units 04/26/23 01:30 04/26/23 07:31 04/26/23 20:07 04/27/23 06:44 04/28/23 08:13 WBC 4.00 - 10.80 K/uL 6.23 5.53 8.17 4.94 5.18 HGB 12.0 - 15.3 g/dL 10.9 (L) 10.4 (L) 11.2 (L) 10.3 (L) 11.1 (L) HCT 36.0 - 45.2 % 33.0 (L) 31.3 (L) 35.1 (L) 31.7 (L) 35.5 (L) MCV 81.5 - 97.5 fL 85.5 83.9 88.0 86.1 89.6 PLT 140 - 400 K/uL 110 (L) 100 (L) 123 (L) 95 (L) 118 (L) IRON SCREEN, INCLUDING TIBC Rpt ! Iron 33 - 151 ug/dL 23 (L) Iron Binding Capacity 250 - 425 ug/dL 299 Transferrin Saturation Percent 15 - 55 % 8 (L) Ferritin 13 - 150 ng/mL 69 (L): Data is abnormally low !: Data is abnormal Rpt: View report in Results Review for more information Latest Reference Range & Units 04/26/23 01:30 04/26/23 07:31 04/27/23 06:44 04/28/23 08:13 Albumin 3.8 - 5.0 g/dL 2.8 (L) 2.6 (L) 2.6 (L) 2.9 (L) AST 10 - 35 U/L 57 (H) 53 (H) 61 (H) 68 (H) ALT 10 - 35 U/L 38 (H) 36 (H) 38 (H) 42 (H) Alkaline Phosphatase 35 - 130 U/L 50 47 48 55 Bilirubin, Total <=1.2 mg/dL 1.4 (H) 1.1 1.2 1.4 (H) Bilirubin, Direct 0.0 - 0.3 mg/dL 0.7 (H) (L): Data is abnormally low (H): Data is abnormally high Iron studies: Iron 23 TIBC 299 T sat 8 Ferritin 69 HIV negative Hepatitis-C antibody negative Procedures: Colonoscopy 04/27: Impression: - Diverticulosis in the sigmoid colon. Clotted blood noted in the diverticula without any stigmata of active bleeding. - The cecum is normal. - The examined portion of the ileum was normal. - No specimens collected." Results Pending at Discharge: None MEDICATION UPDATES AT DISCHARGE START taking these medications INSTRUCTIONS Carvedilol 3.125 MG Tablet Commonly known as: Coreg Take 1 Tablet by mouth 2 times a day with morning and evening meals. CONTINUE taking these medications INSTRUCTIONS Acetaminophen 325 MG Tablet Commonly known as: Tylenol Take 2 Tablets by mouth as needed (for mild to moderate reaction (infusion reaction protocol)). alendronate 70 MG Tablet Commonly known as: Fosamax TAKE ONE TABLET BY MOUTH ONCE A WEEK WITH 8OZ OF WATER 30 MINUTES BEFORE THE FIRST MEAL OF THE DAY.REMAIN UPRIGHT FOR 30 MINUTES AFTER TAKING TABLET atorvaSTATin 40 MG Tablet Commonly known as: Lipitor TAKE ONE TABLET BY MOUTH EVERY AFTERNOON B Complex 100 TR Tbcr Take by mouth . Biotin 1 MG Capsule Take 1 Capsule by mouth in the morning and 1 Capsule at noon and 1 Capsule before bedtime. Taking once a daily. Centrum Silver Tablet 1 TABLET DAILY cinacalcet 30 MG Tablet Commonly known as: Sensipar TAKE ONE TABLET BY MOUTH IN THE MORNING. clopidogrel 75 MG Tablet Commonly known as: pLAVix Take 1 Tablet by mouth in the morning. EPINEPHrine (Anaphylaxis) 1 MG/ML Soln Inject 0.3 mL into a large muscle as needed for Anaphylaxis (severe allergic reaction) (To be administered in the event of anaphylactic reaction per GHIS IV iron anaphylaxis protocol). May repeat every 15 min as needed per infusion reaction protocol Furosemide 40 MG Tablet Commonly known as: Lasix Take 1.5 Tablets by mouth in the morning. Magnesium 400 MG Capsule Take 1 Capsule by mouth in the morning. Magnesium Extra Strength 400 MG Caps Generic drug: Magnesium Oxide -Mg Supplement TAKE ONE CAPSULE BY MOUTH EVERY MORNING Melatonin 10 MG Tablet Take 1 Tablet by mouth at bedtime. MetFORMIN 1000 MG Tablet Commonly known as: Glucophage TAKE ONE TABLET BY MOUTH IN THE MORNING AND ONE TABLET BEFORE BEDTIME WITH FOOD. NovoLIN 70/30 (70-30) 100 UNIT/ML injection Generic drug: Insulin NPH Isophane & Regular INJECT 25 UNITS SUBCUTANEOUSLY BEFORE BREAKFAST AND INJECT 10 UNITS BEFORE SUPPER. * OneTouch Delica Lancets 33G Misc Test blood sugar twice daily E11. * OneTouch Delica Plus [id number] Misc USE TO TEST BLOOD SUGAR TWICE DAILY OneTouch Verio Flex System w/Device Kit Use up to 4 times a day . OneTouch Verio Strp Generic drug: Glucose Blood USE TO TEST BLOOD SUGAR TWICE DAILY Osteo Bi-Flex Joint Shield Tablet daily OTC pantoprazole 40 MG Tbec Commonly known as: Protonix TAKE ONE TABLET BY MOUTH IN THE MORNING UltiCare Insulin Syringe 30G X 5/16" 1 ML Misc Generic drug: Insulin Syringe-Needle U-100 USE TO INJECT INSULIN TWICE DAILY Vitron-C 65-125 MG Tablet Generic drug: Iron-Vitamin C 65-125 mg per tab Take 1 Tablet by mouth daily with dinner. * This list has 2 medication(s) that are the same as other medications prescribed for you. Read thedirections carefully, and ask your doctor or other care provider to review them with you. STOP taking these medications Metoprolol Tartrate 25 MG Tablet Commonly known as: Lopressor CONTINUE taking these medications but follow up with your Primary Care Physician (PCP). INSTRUCTIONS dexAMETHasone Sodium Phosphate 4 MG/ML injection Commonly known as: Decadron Inject 8 mg intravenously as needed for Anaphylaxis (severe allergic reaction) (To be administered in the event of anaphylactic reaction per IS IV iron anaphylaxis protocol). losartan 25 MG Tablet Commonly known as: Cozaar Ask about: Which instructions should I use? TAKE ONE TABLET BY MOUTH IN THE MORNING NSS 0.9 % solution To be administered in the event of anaphylactic reaction per GHIS IV iron anaphylaxis protocol Zoster Vac Recomb Adjuvanted 50 MCG/0.5ML injection Commonly known as: Shingrix Inject 0.5 mL into a large muscle now and repeat dose in 60 to 180 days SCHEDULED FOLLOW-UP: Future Appointments Appt Date/Time Provider Department 05/10/2023 11:20 AM Alexy Al MD [facility] 10/06/2023 10:40 AM Alexy Al MD [facility] Outpatient Follow Up HEPATOLOGY REFERRAL OP Vascular Surgery Referral Op Other Information Indwelling Devices: LINES None Vital Signs (last recorded): Most Recent Systolic BP: 130 mmHg (04/28/23 1100) Most Recent Diastolic BP: 45 mmHg (04/28/23 1100) Pulse: 71 (04/28/23 1100) Resp: 18 (04/28/23 1100) Most Recent Temperature: 36.78 C (04/28/23 1100) Weight: 75.2 kg (165 lb 12.6 oz) (04/26/23 0117) SpO2: 98 % (04/28/23 1100) O2 flow rate: 0 L/MIN (04/28/23 0800) Allergies: Patient has no known allergies. Activity: as tolerated Diet: age appropriate diet Code status (this admission): No Code Discussion of adv directives occurred with - adult: Patient Condition on Discharge: stable Isolation status: None Cognition: normal HOSPITAL CONSULTS ORDERED: GASTROENTEROLOGY CONSULT IP REFERRING PHYSICIAN: Ref: ONOFRE SANCHEZ[[id number]] [address] [place] [address] (office) [phone] (fax) PRIMARY CARE PROVIDER: PCP: Alexy Al MD [address] [place] [address] (office) [phone] (fax) Note: To contact a physician responsible for this patients hospital care, please call [facility] [phone]. I spent a total of 45 minutes coordinating, documenting, and providing care for this patient excluding time spent in the performance of separately billed services. Calvin Mcclure MD [facility] Medicine documented in this encounter Discharge Instructions * Discharge Instr - AVS* Calvin Mcclure MD - 04/28/2023 10:35 AM EST Discharge Date: 04/28/23 The information below provides you with the instructions and the list of medications you need to betaking following discharge from the hospital. If you have any questions, please ask before leaving. If you have questions after leaving, you can reach us at the numbers below. YOUR HOSPITAL PROVIDERS: Discharging Provider: Calvin Mcclure MD Provider Department: Hospital Medicine To reach this Provider Monday through Monday (8:00 AM to 4:30 PM) for any questions or test results: Call [phone] For after-hours concerns: Call [phone] and have your provider paged, or the provider manager employee relations for the Department of Hospital Medicine paged. Please note, the discharging provider will not be able to provide you with any medications refills.Please discuss these with your primary care provider. Worsening Symptoms: If you have new symptoms, or your symptoms get worse, please contact your Discharge Provider or Primary Care Provider (PCP). If these providers are not available, you can go to your local [facility] or Urgent Care Clinic during their business hours. In an EMERGENCY situation: Call 911 or go to the nearest emergency room. A BRIEF SUMMARY OF YOUR HOSPITAL STAY: You came to the hospital with: complaint of bright red blood in your stool. You were initially were[facility] at [facility]. You underwent upper endoscopy which did not reveal a source of your bleeding. Given this, you were transferred to [facility] for further evaluation. While at [facility], you underwent colonoscopy which showed a condition called diverticulosis (small outpouchings in your colon). There was no active bleeding but there was evidenceof old blood in the areas of diverticulosis. The likely source of your bleed was a diverticular bleed which had resolved on its own. No intervention was taken. While admitted to [facility] your blood counts remained stable and you did not require any additional blood transfusions. Youwere found to be iron-deficienct so you should continue taking your oral iron at home. Given resolution of her bleeding and stent placement from prior vascular surgery, your Plavix was resumed after discussion of risks/benefits. You were referred for vascular surgery follow-up to further discuss this medication moving forward. You will also have close follow-up with your primary care physician. Your main diagnosis at discharge was: Lower GI bleed, diverticulosis Operations & Procedures performed: Colonoscopy 04/27/23 Complications: none significant Inpatient test results that are pending at discharge: none Advance Directive Documented: Advance Directive Does the Patient have an Advance Directive? No YOUR FOLLOW UP APPOINTMENTS: Primary Care Provider Information: PCP: Alexy Al MD [address] [place] [phone] (office) [phone] (fax) An appointment was requested with your PCP (Alexy Al MD) within 3 days. (Please take this form to this visit with your primary care physician.) You need the following studies in the future: CBC: date - within 1-2 weeks of discharge - please have your PCP order and review. INSTRUCTIONS: Diet: Previous diet Activity: No restrictions Additional Instructions: - Call your primary care physician or seek medical attention if you develop recurrent bright red blood in your stool, lightheadedness, dizziness, chest pain, shortness of breath, blood in your vomit,coffee-ground appearing blood, dark/black tarry stools. Medication Changes: Please start taking carvedilol 3.[address] daily in [address] of your prior metoprolol. Please do not take your metoprolol any longer as this medication has been replaced by carvedilol. Please also note that you were found to have a condition called cirrhosis. For this, you were referred to a liver doctor called a buttonhole marker on discharge. You should receive a call to set up this appointment. This will be very important to make. documented in this encounter Progress Notes * Calvin Mcclure MD - 04/27/2023 7:41 AM EST Images from the original note were not included. [facility] B733/A INTERVAL HISTORY: Patient continued to blood in her bowel movements overnight. In the process of completing colonoscopy prep. Bowel movements are starting to become clear but remained bloody. No hemodynamic instability or hypotension overnight. Repeat CBC yesterday evening with stable hemoglobin. This morning patient continues to deny any pain. No difficulty urinating. Overall feels well. Denies lightheadedness or dizziness. Objective Physical Exam Most Recent Vital Signs: BP: 138 mmHg/50 mmHg (04/27/23532) Pulse: 75 (04/27/23532) Temp: 36.28 C (04/27/23532) Resp: 18 (04/27/23532) SpO2: 96 % (04/27/23532) Physical Exam: General: Patient resting in bed in no acute distress. HEENT: Nonicteric sclerae. Cardiovascular: Heart regular rate and rhythm. No murmurs, rubs, or gallops. No edema of the b/l LE. Pulmonary: Lungs CTAB. No wheezes, rhonchi, or rales. Abdomen: Soft, non-tender, non-distended. MSK: No clubbing, cyanosis, or edema. Skin: Warm. No visible rashes. Neuro: Alert and oriented x3. No gross cranial nerve deficits. Moves all extremities spontaneously. Psych: Appropriate mood and affect. Peripheral Line Lower;Right Arm (Active) Number of days: Peripheral Line Left;Lower Arm 24 Gauge (Active) Number of days: 1 STUDIES: Encounter Orders Labs and other studies reviewed with pertinent findings noted below: BMP notable for K 3.4. Otherwise unremarkable. LFTs notable for mildly elevated AST of 61, ALT 38, T bili 1.2. Normal ALP. CBC without leukocytosis. Hemoglobin stable at 10.3. Platelets 95. Iron studies: Iron 23 TIBC 299 T sat 8 Ferritin 69 HIV negative Hepatitis-C antibody negative Imaging: None Assessment and Plan IMPRESSION : Principal Problem: GI bleed Active Problems: Dyslipidemia, goal LDL below 100 Type 2 diabetes mellitus with hemoglobin A1c goal of less than 8.0% (HCC) HTN, goal below 140/90 Cerebrovascular disease, arteriosclerotic, post-stroke Coronary artery disease involving [place] heart without angina pectoris (HFpEF) heart failure with preserved ejection fraction (HCC) Ischemic colitis (HCC) Hepatic cirrhosis (HCC) Portal hypertension (HCC) Superior mesenteric artery stenosis (HCC) Mesenteric ischemia (HCC) Resolved Problems: * No resolved hospital problems. * DIFFERENTIAL AND PLAN: Martine Russell is an 82F with a PMH of T2DM, HFpEF, prior ischemic colitis, ?newly diagnosed cirrhosis, hx of SMA stenosis, HLD, GERD, HTN, prior CVA who was [place] [facility] [place] [facility] for GIB. Patient reportedly underwent EGD at [facility] which did not reveal active source of bleeding. There werenon-bleeding Grade II EVs. Acute Blood Loss Anemia Iron-Deficiency Lower GIB: Hgb stable since prior transfusions. Received 3u PRBC at OSH. EGD / w/ non-bleeding Grade II EVs. Given negative EGD and BRBPR, seems much more likely a lower source. Ddx includes ischemic colitis (hx of SMA disease), angiodysplasias, diverticular bleed. - GI consult - appreciate recs - GI planning for colonoscopy today. Will follow results. - Maintain 2 large bore pIVs - Maintain active type and screen - Transfuse for Hgb <7.0 - Daily CBC unless HD instability - Start every other day oral iron supplementation Cirrhosis, New Diagnosis: Patient reports she was not aware of having "liver disease". Has Grade IIEVs as above. HIV and hepatitis-C antibody negative. - Hepatology referral on DC - Follow up any GI recs - No evidence of HE - No evidence of ascites - Thrombocytopenic, but stable - Will transition OFFICIAL COURT REPORTER metoprolol to carvedilol for EV ppx Chronic HFpEF HTN: Patient euvolemic on exam. - DC OFFICIAL COURT REPORTER metoprolol - Start carvedilol 3.125mg BID - Hold OFFICIAL [facility] REPORTER losartan for now - Hold OFFICIAL [facility] REPORTER lasix for now Hx of CVA: - Hold OFFICIAL COURT REPORTER plavix given active GIB. Will resume as able. T2DM: OFFICIAL COURT REPORTER regimen is metformin 1000mg BID, and 70-30 25u AM, 10u PM. - Hold OFFICIAL COURT REPORTER metformin - Med dose SSI - ICR 1:10 - Lantus 10u qhs - Adjust regimen as necessary Incidental findings Needs pulmonology follow up OP for lesions PHARMACOLOGIC VTE PROPHYLAXIS: This patient does not have an active medication from one of the medication groupers. CODE STATUS: No Code EXPECTED DISCHARGE DATE: 04/29/2023 * Morro Yadav MD - 04/27/2023 7:32 AM EST PROGRESS NOTE - Gastroenterology Service [facility] [address] Name: Martine Russell Date: 04/27/2023 Time: 7:32 AM SUBJECTIVE: Tolerate prep No abd pain, having watery stool No other complaints. ROS: Negative unless otherwise stated above. OBJECTIVE: Vital Signs Last 24 Hours: Systolic BP: Most Recent Systolic BP Av.5 mmHg Min: 115 mmHg Max: 148 mmHg Temperature: Most Recent Temperature Av.4 C Min: 35.78 C Max: 36.78 C Pulse: Pulse Av Min: 75 Max: 87 Respirations: Resp Av.3 Min: 18 Max: 20 SpO2: SpO2 Av.9 % Min: 96 % Max: 100 % Constitutional: NAD. A&Ox3. CV: Not tachycardiac RRR Chest: equal and bilateral chest rise, no accessory muscle use GI: Soft, NT/ND. BSx4. Extremities: No edema. Neurology: Moves all extremites Last Bowel Movement: 04/26/23 (04/27/23 0500) Stool Description: Small;Liquid;Blood Streaked (04/27/23 0500) LABS: Reviewed in [facility] Blood Gas: No results in the last 7 days - inpatent use only Chemistry Panel Lab results within last 7 days (see chart for full results) Units 04/27/2364304/26/2373004/26/23129 Sodium mmol/L 139 142 143 Potassium mmol/L 3.4* 3.8 4.0 Chloride mmol/L 107 110* 107 CO2 mmol/L 25 25 23 BUN mg/dL 17 27* 28* Creatinine mg/dL 0.8 0.9 1.0 Estimated Glomerular Filtration Rate mL/min 72 62 56* Glucose mg/dL 179* 198* 194* Calcium mg/dL 7.4* 7.7* 7.6* Magnesium mg/dL 1.6 1.6 -- Phosphorus mg/dL -- 4.2 -- Anion Gap mmol/L 7 7 13 Complete Blood Count Lab results within last 7 days (see chart for full results) Units 04/26/23200604/26/2373004/26/23129 WBC K/uL 8.17 5.53 6.23 HGB g/dL 11.2* 10.4* 10.9* HCT % 35.1* 31.3* 33.0* PLT K/uL 123* 100* 110* MCV fL 88.0 83.9 85.5 Cardiac Studies No results in the last 7 days - inpatent use only Coagulation Studies Lab results within last 7 days (see chart for full results) Units 04/27/2364304/26/2373004/26/23129 Prothrombin Time seconds 17.9* 18.0* 18.3* INR 1.5* 1.5* 1.5* Liver Function Panel Lab results within last 7 days (see chart for full results) Units 04/27/2364304/26/2373004/26/23129 Albumin g/dL 2.6* 2.6* 2.8* Protein g/dL 5.3* 5.3* 5.4* Bilirubin, Total mg/dL 1.2 1.1 1.4* Bilirubin, Direct mg/dL -- -- 0.7* AST U/L 61* 53* 57* ALT U/L 38* 36* 38* Alkaline Phosphatase U/L 48 47 50 Infectious Studies Lab results within last 7 days (see chart for full results) Units 12/13/23 0731 Ferritin ng/mL 69 Toxicology Studies No results in the last 7 days - inpatent use only IMAGING: Reviewed in Epic. ASSESSMENT: Martine Russell is a(n) 82 year old female with past medical history notable for cirrhosis of unclear etiology complicated by esophageal varices, portal hypertension, history of SMA stenosis status post SMA stent 04/2022 secondary to ischemic colitis on Plavix (last dose 04/24/2023) , HFpEF, history of CVA presenting with two day history of hematochezia concerning for ischemic colitis.On review on her CT scan, it does not appear that her stent has been occluded, however, her colonoscopy in August 2022 showed active colitis in her cecum concerning for ongoing ischemia. Hgb stable thus far during hospital course. Ddx also include diverticular source or angiodysplasia. EGD at [facility] any with evidence of Grade II varices, without evidence of active or stigmata of bleeding. RECOMMENDATIONS: NPO Colonoscopy today Continue holding Plavix I discussed the case with my attending, Dr. Yadav. I have discussed the patient's management with the medical trainee and agree with the note. Please refer to the documented findings and plan of care. This patient's visit today consisted of an evaluation. I was present and confirmed the findings of the history and exam. Morro Yadav MD * Calvin Mcclure MD - 04/26/2023 7:37 AM EST Images from the original note were not included. [facility] B733/A INTERVAL HISTORY: No acute events since admission. Patient is resting in bed and comfortable this morning. She deniesabdominal pain. Her last bowel movement was yesterday prior to transfer and she reports that it wasbloody. She did not see it herself. She has not had a bowel movement since admission to [facility]. She denies any lightheadedness or dizziness. Objective Physical Exam Most Recent Vital Signs: BP: 132 mmHg/57 mmHg (04/26/23517) Pulse: 83 (04/26/23517) Temp: 36.72 C (04/26/23517) Resp: 20 (04/26/23517) SpO2: 91 % (04/26/23517) Physical Exam: General: Patient resting in bed in no acute distress. HEENT: Nonicteric sclerae. Cardiovascular: Heart regular rate and rhythm. No murmurs, rubs, or gallops. No edema of the b/l LE. Pulmonary: Lungs CTAB. No wheezes, rhonchi, or rales. Abdomen: Soft, non-tender, non-distended. MSK: No clubbing, cyanosis, or edema. Skin: Warm. No visible rashes. Neuro: Alert and oriented x3. No gross cranial nerve deficits. Moves all extremities spontaneously. Psych: Appropriate mood and affect. Peripheral Line Lower;Right Arm (Active) Number of days: Peripheral Line Left;Lower Arm 24 Gauge (Active) Number of days: 0 STUDIES: Encounter Orders Labs and other studies reviewed with pertinent findings noted below: BMP notable for BUN 27. Otherwise electrolytes unremarkable. LFTs notable for mildly elevated AST of 53, ALT 36, T bili 1.1. Normal ALP. CBC without leukocytosis. Hemoglobin 10.4. Platelets 100. Imaging: None Assessment and Plan IMPRESSION : Principal Problem: GI bleed Active Problems: Dyslipidemia, goal LDL below 100 Type 2 diabetes mellitus with hemoglobin A1c goal of less than 8.0% (HCC) HTN, goal below 140/90 Cerebrovascular disease, arteriosclerotic, post-stroke Coronary artery disease involving [place] heart without angina pectoris (HFpEF) heart failure with preserved ejection fraction (HCC) Ischemic colitis (HCC) Hepatic cirrhosis (HCC) Portal hypertension (HCC) Superior mesenteric artery stenosis (HCC) Mesenteric ischemia (HCC) Resolved Problems: * No resolved hospital problems. * DIFFERENTIAL AND PLAN: Martine Russell is an 82F with a PMH of T2DM, HFpEF, prior ischemic colitis, ?newly diagnosed cirrhosis, hx of SMA stenosis, HLD, GERD, HTN, prior CVA who was admitted [place] [facility] [place] from [facility] for GIB. Patient reportedly underwent EGD at [facility] which did not reveal active source of bleeding. There werenon-bleeding Grade II EVs. Acute Blood Loss Anemia GIB, Likely Lower GIB: Hgb stable since prior transfusions. Received 3u PRBC at OSH. EGD 04/25 w/ non-bleeding Grade II EVs. Given negative EGD and BRBPR, seems much more likely a lower source. Ddx includes ischemic colitis (hx of SMA disease), angiodysplasias, diverticular bleed. - GI consult - appreciate recs - CLD for now, prep for colonoscopy this evening and plan for colonoscopy tomorrow - Maintain 2 large bore pIVs - Maintain active type and screen - Transfuse for Hgb <7.0 - Discontinue protonix gtt, octreotide gtt, and ceftriaxone given EGD negative for EV bleed - Daily CBC unless HD instability or active bleeding - Send iron studies Cirrhosis, New Diagnosis: Patient reports she was not aware of having "liver disease". Has Grade IIEVs as above. - Hepatology referral on DC - Send HIV, HCV - Follow up any GI recs Chronic HFpEF HTN: Patient euvolemic on exam. - Resume OFFICIAL COURT REPORTER metoprolol - Hold OFFICIAL COURT REPORTER losartan for now - Hold OFFICIAL COURT REPORTER lasix for now Hx of CVA: - Hold OFFICIAL COURT REPORTER plavix given active GIB. Will resume as able. T2DM: OFFICIAL [facility] REPORTER regimen is metformin 1000mg BID, and 70-30 25u AM, 10u PM. - Hold OFFICIAL COURT REPORTER metformin - Med dose SSI - ICR 1:10 - Lantus 10u qhs - Adjust regimen as necessary Incidental findings Needs pulmonology follow up OP for lesions PHARMACOLOGIC VTE PROPHYLAXIS: This patient does not have an active medication from one of the medication groupers. CODE STATUS: No Code EXPECTED DISCHARGE DATE: No information available documented in this encounter H&P Notes * Elian Hernandez MD - 04/27/2023 12:00 PM EST Endoscopy Pre-Procedure Assessment Name: Martine Russell Date: 04/27/2023 Time: 12:00 PM Procedure(s): Colonoscopy; with Indication(s) of evaluation of GI blood loss or iron- deficiency anemia Endoscopy Pre-Procedure Assessment: Prior to the procedure, the patient is identified. The patient's history, medications and allergieshave been reviewed. The patient is competent. The risks and benefits of the proposed procedure and the planned sedation have been discussed with the patient. All questions have been answered and informed consent for the procedure has been obtained. Prior to Admission medications Medication Sig Last Dose Discont. Furosemide 40 MG Oral Tablet (Lasix) Take 1.5 Tablets by mouth in the morning. Past Week Metoprolol Tartrate 25 MG Oral Tablet (Lopressor) TAKE ONE-HALF TABLET BY MOUTH TWICE DAILY Past Week Cinacalcet HCl 30 MG Oral Tablet (Sensipar) TAKE ONE TABLET BY MOUTH IN THE MORNING. 04/25/2023 Atorvastatin Calcium 40 MG Oral Tablet (Lipitor) TAKE ONE TABLET BY MOUTH EVERY AFTERNOON 04/25/2023 Alendronate Sodium 70 MG Oral Tablet (Fosamax) TAKE ONE TABLET BY MOUTH ONCE A WEEK WITH 8OZ OF WATER 30 MINUTES BEFORE THE FIRST MEAL OF THE DAY. REMAIN UPRIGHT FOR 30 MINUTES AFTER TAKING TABLET Unknown Clopidogrel Bisulfate 75 MG Oral Tablet (pLAVix) Take 1 Tablet by mouth in the morning. Past Week Losartan Potassium 25 MG Oral Tablet (Cozaar) TAKE ONE TABLET BY MOUTH IN THE MORNING Past Week metFORMIN HCl 1000 MG Oral Tablet (Glucophage) TAKE ONE TABLET BY MOUTH IN THE MORNING AND ONE TABLET BEFORE BEDTIME WITH FOOD. Past Week NovoLIN 70/30 (70-30) 100 UNIT/ML Subcutaneous Suspension INJECT 25 UNITS SUBCUTANEOUSLY BEFORE BREAKFAST AND INJECT 10 UNITS BEFORE SUPPER. Unknown Pantoprazole Sodium 40 MG Oral Tablet Delayed Release (Protonix) TAKE ONE TABLET BY MOUTH IN THE MORNING Past Week Vitron-C 65-125 MG Oral Tablet (Iron-Vitamin C 65-125 mg per tab) Take 1 Tablet by mouth daily withdinner. 04/25/2023 Acetaminophen 325 MG Oral Tablet (Tylenol) Take 2 Tablets by mouth as needed (for mild to moderate reaction (infusion reaction protocol)). Unknown Biotin 1 MG Oral Capsule Take 1 Capsule by mouth in the morning and 1 Capsule at noon and 1 Capsulebefore bedtime. Taking once a daily. 04/25/2023 CENTRUM SILVER PO TABS 1 TABLET DAILY 04/25/2023 [email or web address] w/Device Kit Use up to 4 times a day E11.9 E11.29 Magnesium 400 MG Oral Capsule Take 1 Capsule by mouth in the morning. Magnesium Oxide -Mg Supplement 400 MG Oral Capsule TAKE ONE CAPSULE BY MOUTH EVERY MORNING Zoster Vac Recomb Adjuvanted 50 MCG/0.5ML Intramuscular Suspension Reconstituted (Shingrix) Inject 0.5 mL into a large muscle now and repeat dose in 60 to 180 days Patient not taking: Reported on 03/28/2023 Glucose Blood In Vitro Strip USE TO TEST BLOOD SUGAR TWICE DAILY Insulin Syringe-Needle U-100 30G X 5/16" 1 ML USE TO INJECT INSULIN TWICE DAILY OneTouch Delica Lancets 33G Test blood sugar twice daily E11.9 E11.29 OneTouch Delica Plus [id number] USE TO TEST BLOOD SUGAR TWICE DAILY Melatonin 10 MG Oral Tablet Take 1 Tablet by mouth at bedtime. Dexamethasone Sodium Phosphate 4 MG/ML Injection Solution (Decadron) Inject 8 mg intravenously as needed for Anaphylaxis (severe allergic reaction) (To be administered in the event of anaphylactic reaction per IS IV iron anaphylaxis protocol). Patient not taking: Reported on 08/11/2022 EPINEPHrine (Anaphylaxis) 1 MG/ML Injection Solution Inject 0.3 mL into a large muscle as needed for Anaphylaxis (severe allergic reaction) (To be administered in the event of anaphylactic reaction per IS IV iron anaphylaxis protocol). May repeat every 15 min as needed per infusion reaction protocol Sodium Chloride 0.9 % Intravenous Solution To be administered in the event of anaphylactic reactionper GHIS IV iron anaphylaxis protocol Patient not taking: Reported on 09/22/2022 B Complex 100 TR Oral Tablet Extended Release Take by mouth . OSTEO BI-FLEX JOINT SHIELD PO TABS daily OTC Review of patient's allergies indicates: No Known Allergies BP 147/67 | Pulse 70 | Temp 36.9 C (98.4 F) (Tympanic) | Resp 18 | Ht 1.6 m (5' 3") | Wt 75.2 kg (165 lb 12.6 oz) | SpO2 99% | BMI 29.37 kg/m | BSA 1.83 m Physical Exam: Mental Status Examination: alert and oriented. Airway Examination: normal oropharyngeal airway and neck mobility. Respiratory Examination: clear to auscultation. CV Examination: normal. ASA Grade: III - A patient with severe systemic disease. Abdomen: negative This patient has undergone a preprocedural evaluation. A determination has been made to proceed with the planned procedure under [facility] procedural guidelines and the CMS Non-Emergent, Elective Medical Services and Treatment Recommendations (published on 08-20-19). The community and hospital prevalence of COVID-19 has been discussed as well as this patient's specific risks associated with SARS-CoV-19 infection. Based upon the clinical acuity and patient-specific care considerations, this procedure is deemed a Tier I - High acuity treatment or service with immediate threat to life or threat of severe progressive disease. Lack of treatment or service would result in patient harm. After reviewing the risks and benefits, the patient is deemed in satisfactory condition to undergo the procedure. The anesthesia plan is to use monitored anesthesia care (MAC). Elian Hernandez MD 04/27/2023 * Thania, Carline Araujo PA-C - 04/26/2023 2:17 AM EST Images from the original note were not included. [facility] B733/A PRESENTING PROBLEM: GI bleed, transfer from [facility] HPI: Martine Russell is an 82 YO female with PMH T2DM, HFpEF, ischemic colitis, portal HTN, SMA stenosis,DLD, GERD, HTN, hx CVA, cirrhosis, who presents [place] [facility] [place] transfer from [facility] for GI bleed. Patient reports on Monday morning she started having bright red blood in her stools. Once she ran out of stool, there was just blood coming out. She reports this has never happened to her before. He denies any abdominal pain, nausea, vomiting, headache, dizziness, chest pain, SOB. Per paperwork review from [facility], patient admitted on 04/24/23. She received total of 3U PRBC. Was onoctreotide, protonix, and rocephin. EGD negative for source of bleeding. Due to her having mesenteric ischemia and possible need for IR intervention, she was transferred to [facility]. Prior to transfer last evening, was her last episode of bright red blood in stool. Patient is a NO CODE. She would like her daughter, Madelyn Castaneda, to make decisions on her behalf should she be unable to. I have uploaded imaging to [email or web address] and nominated to PACS. Subjective Patient's past history, medications, and allergies were reviewed. Objective Physical Exam Most Recent Vital Signs: BP: 134 mmHg/79 mmHg (04/26/23116) Pulse: 84 (04/26/23116) Temp: 36.72 C (04/26/23116) Resp: 20 (04/26/23116) SpO2: 99 % (04/26/23116) Constitutional: no acute distress HEENT: normal: normocephalic, atraumatic; no masses, tenderness, or adenopathy Eyes: sclera and conjunctiva normal CV: normal rate and rhythm, no murmur, gallops or rub Chest: normal respiratory effort, breath sounds normal Abdomen: normal: soft, bowel sounds normal, no masses, tenderness or organomegaly Extremities: no clubbing, cyanosis, or edema, otherwise grossly normal, warm, and dry Skin: warm, dry, intact: Neuro: alert, oriented to person, place, and time Psych: normal mood and affect Peripheral Line Lower;Right Arm (Active) Number of days: STUDIES: Encounter Orders Labs and other studies reviewed with pertinent findings noted below: STAT labs obtained on admission and reviewed. Recent Results (from the past 12 hour(s)) CBC Collection Time: 04/26/23 1:30 AM Result Value Ref Range WBC 6.23 4.00 - 10.80 K/uL RBC 3.86 3.85 - 5.15 M/uL HGB 10.9 (L) 12.0 - 15.3 g/dL HCT 33.0 (L) 36.0 - 45.2 % MCV 85.5 81.5 - 97.5 fL MCH 28.2 27.0 - 34.0 pg MCHC 33.0 32.0 - 36.0 g/dL RDW 19.0 11.5 - 15.5 % PLT 110 (L) 140 - 400 K/uL MPV 12.0 6.6 - 11.1 fL nRBCs 0 <=0 /100 WBCs TYPE AND SCREEN Collection Time: 04/26/23 1:30 AM Result Value Ref Range ABO A Rh Positive Red Blood Cell Antibody Screen Negative Specimen Expiration Date 04/29/2023 23:59 BASIC METABOLIC PANEL Collection Time: 04/26/23 1:30 AM Result Value Ref Range BUN 28 (H) 6 - 20 mg/dL Creatinine 1.0 0.5 - 1.0 mg/dL Estimated Glomerular Filtration Rate 56 (L) >=60 mL/min Sodium 143 135 - 146 mmol/L Potassium 4.0 3.5 - 5.1 mmol/L Chloride 107 98 - 107 mmol/L CO2 23 22 - 32 mmol/L Anion Gap 13 7 - 15 mmol/L Glucose 194 (H) 70 - 120 mg/dL Calcium 7.6 (L) 8.4 - 10.2 mg/dL PT INR Collection Time: 04/26/23 1:30 AM Result Value Ref Range Prothrombin Time 18.3 (H) 11.6 - 15.2 seconds INR 1.5 (H) 0.8 - 1.2 HEPATIC FUNCTION PANEL Collection Time: 04/26/23 1:30 AM Result Value Ref Range Albumin 2.8 (L) 3.8 - 5.0 g/dL AST 57 (H) 10 - 35 U/L Alkaline Phosphatase 50 35 - 130 U/L ALT 38 (H) 10 - 35 U/L Bilirubin, Total 1.4 (H) <=1.2 mg/dL Bilirubin, Direct 0.7 (H) 0.0 - 0.3 mg/dL Protein 5.4 (L) 6.0 - 8.3 g/dL CT AP 04/24/23 1.Bilateral pulmonary lesions as above. These were also present on the 04/27/2022 examination, and the sub solid lesion in the right lower lobe is increasingly conspicuous from previous. These are suspicious for low-grade pulmonary neoplasms. Follow-up with pulmonology is recommended. 2. No acute infectious or inflammatory findings in the abdomen or pelvis 3. Cirrhotic liver morphology 4. Esophageal varices, perigastric varices, and splenorenal shunt indicate portal hypertension 5. Large calcified structures in the right upper quadrant favored dropped gallstones. There is alsolikely a gallstone within a hernia in the right ventral abdominal wall. These are unchanged from previous 6. Colonic diverticulosis without CT evidence of acute diverticulitis 7. An 8.4 cm simple cystic structure in the right adnexa is likely related to right ovary is similar to previous. This is pathologically indeterminate but abnormal in this age group 8. Bilateral nephrolithiasis EGD report findings 04/25/23 Grade 2 varices were found to the mid esophagus Moderate portal hypertensive gastropathy was found in the gastric body The examined duodenum was normal The cardia and gastric fundus were normal on retroflexion Assessment and Plan IMPRESSION: Principal Problem: GI bleed Active Problems: Dyslipidemia, goal LDL below 100 Type 2 diabetes mellitus with hemoglobin A1c goal of less than 8.0% (HCC) HTN, goal below 140/90 Cerebrovascular disease, arteriosclerotic, post-stroke Coronary artery disease involving [place] heart without angina pectoris (HFpEF) heart failure with preserved ejection fraction (HCC) Ischemic colitis (HCC) Hepatic cirrhosis (HCC) Portal hypertension (HCC) Superior mesenteric artery stenosis (HCC) Mesenteric ischemia (HCC) Resolved Problems: * No resolved hospital problems. * DIFFERENTIAL AND PLAN: GI bleed SMA stenosis Liver cirrhosis Grade II esophageal varices -Admit to medicine -Currently hemodynamically stable -S/p 3 units PRBC at [facility] -EGD without any signs of bleeding -Hgb on admission 10.9 -Blood consent obtained -Transfuse for hgb <7 -GI consult -IV PPI -Octreotide infusion -Rocephin -NPO -2 large bore IVs -Telemetry monitoring -AM labs: CBC, CMP, PT/INR Chronic HFpEF: hold OFFICIAL COURT REPORTER metoprolol, continue OFFICIAL COURT REPORTER lipitor HTN: hold OFFICIAL COURT REPORTER losartan and lasix due to GI bleed T2DM: hold OFFICIAL COURT REPORTER metformin and novolin, low dose SSI and lantus 10U HS Hx CVA: hold OFFICIAL COURT REPORTER plavix due to GI bleed Incidental findings Needs pulmonology follow up OP for lesions PHARMACOLOGIC VTE PROPHYLAXIS:This patient does not have an active medication from one of the medication groupers. CODE STATUS: No Code EXPECTED DISCHARGE DATE: No information available I spent a total of 85 minutes coordinating, documenting, and providing care for this patient excluding time spent in the performance of separately billed services. Associated attestation - Regan Jackson MD - 04/26/2023 3:26 AM EST I have reviewed the advanced practitioner documentation and agree. I saw and evaluated the patient on date of service referenced in note and have performed the following medically appropriate historyand/or exam: presented to [facility] on 04/24 with BRBPR. Received 3 unit PRBC transfusion in total at OSH. Principal Problem: GI bleed (POA: Yes) Active Problems: Dyslipidemia, goal LDL below 100 (POA: Yes) Type 2 diabetes mellitus with hemoglobin A1c goal of less than 8.0% (HCC) (POA: Yes) Overview: ICD-10 update of inactive term HTN, goal below 140/90 (POA: Yes) Cerebrovascular disease, arteriosclerotic, post-stroke (POA: Yes) Coronary artery disease involving [place] heart without angina pectoris (POA: Yes) (HFpEF) heart failure with preserved ejection fraction (HCC) (POA: Yes) Ischemic colitis (HCC) (POA: Yes) Hepatic cirrhosis (HCC) (POA: Yes) Portal hypertension (HCC) (POA: Yes) Superior mesenteric artery stenosis (HCC) (POA: Yes) Mesenteric ischemia (HCC) (POA: Yes) POA = Present On Admission EGD on 04/25 from OSH remarkable for moderate portal hypertensive gastropathy and grade 2 esophageal varices. Continue IV PPI, IV octreotide, and IV Rocephin. Keep active type and screen, monitor CBCclosely and transfuse to keep hemoglobin above 7. Keep NPO and consult GI. Monitor daily LFTs including INR. Given history of mesenteric ischemia, patient is transferred here in case if she needs IR intervention. I spent a total of 85 minutes coordinating, documenting, and providing care for this patient excluding time spent in the performance of separately billed services or time spent by another provider/QHP. documented in this encounter Procedure Notes * Calvin Mcclure MD - 04/27/2023 12:23 PM ESTAssociated Order(s): COLONOSCOPY [facility] Patient Name: Martine Russell Procedure Date: 04/27/2023 12:23 PM Date of : 1940 Admit Type: Inpatient Note Status: Finalized Date of : 1940 Admit Type: Inpatient Age: 82 Room: Endo - Room 4 Gender: Female Note Status: Finalized Procedure: Colonoscopy Indications: Hematochezia. Colonoscopy in 08/2022 with cecal inflammation. Providers: Elian Hernandez MD (Doctor), Torrey Jackson (Fellow), Allegra Grant RN, Sabrina Breaux Patient Profile: This is an 82 year old female. Refer to note in patient chart for documentation of history and physical. H/o mesenteric ischemia s/p SMA stent on plavix. Referring MD: Morro Phelan MD, Sara Lim Medicines: Monitored Anesthesia Care Complications: No immediate complications. Procedure: Pre-Anesthesia Assessment: - [place] Protocol: - Pre-procedure Verification: Prior to the procedure, the patient's identity was verified by full name, date of and medical record number. The patient's identity was verified on all pertinent medical records, including History and Physical. Also prior to the procedure, a History and Physical was performed, and patient medications, allergies and sensitivities were reviewed. The patient's tolerance of previous anesthesia was reviewed. The patient is competent. The risks and benefits of the procedure and the sedation options and risks were discussed with the patient. All questions were answered and informed consent was obtained. - Time-Out: Prior to the start of the procedure, the patient's identification, proposed procedure, accurate signed consent, correctly labeled images and records, and need for prophylactic antibiotics were verified by the physician, the nurse, the snuff box finisher and the dental laboratory technician in the procedure room. - ASA Grade Assessment: III - A patient with severe systemic disease. - The supervising physician was present for the entire procedure from scope insertion until scope withdrawal. After I obtained informed consent, the scope was passed under direct vision. All instruments were visually inspected immediately before and after removal from the patient to ensure they are fully intact. Throughout the procedure, the patient's blood pressure, pulse, and oxygen saturations were monitored continuously. The CF-[id number] Colonoscope ([id number]) was introduced through the anus and advanced to 20 cm into the ileum. The colonoscopy was performed without difficulty. The patient tolerated the procedure well. The quality of the bowel preparation was good. Findings & Specimens: The perianal and digital rectal examinations were normal. Scattered small and large-mouthed diverticula were found in the sigmoid colon. Clotted blood noted without any stigmata of active bleeding. The cecum appeared normal. The terminal ileum appeared normal. No additional abnormalities were found on retroflexion in rectum. Impression: - Diverticulosis in the sigmoid colon. Clotted blood noted in the diverticula without any stigmata of active bleeding. - The cecum is normal. - The examined portion of the ileum was normal. - No specimens collected. Recommendation: - [facility] to [facility] for [facility] care. - Further care as per inpatient GI consult team. Elian Hernandez MD 04/27/2023 2:12:10 PM This report has been signed electronically. Torrey Jackson, Estimated Blood Loss: Estimated blood loss: none. documented in this encounter Consult Notes * Sara Lim, DO - 04/26/2023 8:31 AM ESTAssociated Order(s): GASTROENTEROLOGY CONSULT IP Images from the original note were not included. CONSULT - G[place] [facility] [address] Name: Martine Russell [place]: [facility] Date: 04/26/2023 Time: 8:32 AM REQUESTING SERVICE: Medicine REASON FOR CONSULT: "hematochezia and c/f ischemic colitis " HPI: Martine Russell is a 82 year old female with hx of cirrhosis of unclear etiology complicated byesophageal varices, portal hypertension, history of SMA stenosis status post SMA stent 04/2022 secondary to ischemic colitis on Plavix, HFpEF, history of CVA. GI asked to evaluate for hematochezia, Transferred from [facility] after presenting multiple episodes of hematochezia requiring 3 units PRBC with low blood pressure and tachycardia. Transferred [facility] for IR and colorectal surgery. Afebrile and hypertensive overnight. Started on octreotide, pantoprazole IV infusion, and ceftriaxone. EGD showed grade 2 varices and PHG without stigmata of bleeding. There was concern for ischemic colitis and possible need for IR intervention and she was transferred to [facility]. Colonoscopy performed in August of 2022 with moderately hemorrhagic inflamed ulcerated mucosa in thececum. She was also found to multiple small and large mouth diverticula in the sigmoid colon and a 6 mm polyp was found in the rectum and removed. Pathology showed cecal biopsy active chronic colitiswith ulceration and granulation tissue w/ for granulation tissue and negative for dysplasia and malignancy. Rectal polyp removed was hyperplastic and negative for dysplasia and malignancy. This morning, patient states that she had a bowel movement yesterday evening that the nurses dilator was esther blood. She denies any chest pain, lightheadedness, dizziness, abdominal pain. Her initial presenting episode she had woken up to go to the bathroom and had a bowel movement and a gush of blood. She did not have abdominal pain during this episode. HISTORY: Past Medical History: Past Medical History: Diagnosis Date DM type 2, goal A1C below 8.0 04/22/2013 Past Surgical History: Past Surgical History: Procedure Laterality Date COLONOSCOPY, DIAGNOSTIC (RECTUM) N/A 08/26/2022 sigmoid diverticulosis/hemorrhagic, inflamed and ulcerated mucosa cecum/biopsies show colitis/Colonoscopy/MN IR ARTERIOGRAM VISCERAL N/A 05/09/2022 IMAGING SUPERVISION & INTERPRETATION VISCERAL, SELECTIVE performed by Cedrick Phillips MD at [facility] OPEN BRACHIAL ARTERY EXPOSURE FOR ENDOVASCULAR PROSTHESIS, UNILAT N/A 05/09/2022 OPEN BRACHIAL ARTERY EXPOSURE FOR ENDOVASCULAR PROSTHESIS performed by Cedrick Phillips MD at [facility] PARTIAL HYSTERECTOMY 1986 ovaries remain REMOVAL OF TONSILS, UNDER AGE 12 REMOVE CATARACT, INSERT LENS PROSTH Bilateral 2015 REMOVE GALLBLADDER STENT, COATED/COVERED, WITH DELIVERY SYSTEM 09/16/1994 Palmaz-Gamal balloon expandable GW MRI safe Social History: Social History Tobacco Use Smoking status: Former Packs/day: 3.00 Years: 48.00 Additional pack years: 0.00 Total pack years: 144.00 Types: Cigarettes Quit date: 07/23/2006 Years since quittin.7 Smokeless tobacco: Never Vaping Use Vaping Use: Never used Substance Use Topics Alcohol use: Yes Comment: occasional Drug use: No Family History: Family History Problem Relation Age of Onset Cancer Brother Stroke Mother 58 Heart Disorder Brother hx of several [place] Heart Disorder Father [place] Diabetes Mother IDDM Diabetes Father Diabetes Brother Diabetes Brother Diabetes Brother Diabetes Sister Cancer None Thyroid Disorder None Allergies: Patient has no known allergies. ROS: Reviewed, negative except as above. PHYSICAL EXAMINATION: Most Recent Vital Signs: BP: 132 mmHg/57 mmHg (04/26/23517) Pulse: 83 (04/26/23517) Temp: 36.72 C (04/26/23517) Resp: 20 (04/26/23517) SpO2: 91 % (04/26/23517) Vital Signs Last 24 Hours: Systolic BP: Most Recent Systolic BP Av mmHg Min: 132 mmHg Max: 134 mmHg Temperature: Most Recent Temperature Av.7 C Min: 36.72 C Max: 36.72 C Pulse: Pulse Av.5 Min: 83 Max: 84 Respirations: Resp Av Min: 20 Max: 20 SpO2: SpO2 Av % Min: 91 % Max: 99 % General: Patient is awake, alert, orientedand in no acute distress Head and face: normocephalic and atraumatic Eyes: PERRLA; no scleral icterus; normal lids Neck: Supple. Good ROM Heart: RRR, S1 and S2 audible. No murmurs appreciated Respiratory: No wheezes, equal and bilateral chest rise Abdomen: Soft, non-tender. Bowel sounds x 4 Extremities: No cyanosis, or clubbing. No edema Skin: Warm, dry, intact. Neuro: Alert and oriented x Speech appropriate, moves all extremities. LABS: Reviewed in [facility] Blood Gas: No results in the last 7 days - inpatent use only Chemistry Panel Lab results within last 7 days (see chart for full results) Units 04/26/23 0731 04/26/23 0130 Sodium mmol/L 142 143 Potassium mmol/L 3.8 4.0 Chloride mmol/L 110* 107 CO2 mmol/L 25 23 BUN mg/dL 27* 28* Creatinine mg/dL 0.9 1.0 Estimated Glomerular Filtration Rate mL/min 62 56* Glucose mg/dL 198* 194* Calcium mg/dL 7.7* 7.6* Magnesium mg/dL 1.6 -- Phosphorus mg/dL 4.2 -- Anion Gap mmol/L 7 13 Complete Blood Count Lab results within last 7 days (see chart for full results) Units 04/26/23 0731 04/26/23 0130 WBC K/uL 5.53 6.23 HGB g/dL 10.4* 10.9* HCT % 31.3* 33.0* PLT K/uL 100* 110* MCV fL 83.9 85.5 Cardiac Studies No results in the last 7 days - inpatent use only Coagulation Studies Lab results within last 7 days (see chart for full results) Units 04/26/23 0731 04/26/23 0130 Prothrombin Time seconds 18.0* 18.3* INR 1.5* 1.5* Liver Function Panel Lab results within last 7 days (see chart for full results) Units 04/26/23 0731 04/26/23 0130 Albumin g/dL 2.6* 2.8* Protein g/dL 5.3* 5.4* Bilirubin, Total mg/dL 1.1 1.4* Bilirubin, Direct mg/dL -- 0.7* AST U/L 53* 57* ALT U/L 36* 38* Alkaline Phosphatase U/L 47 50 Infectious Studies No results in the last 7 days - inpatent use only Toxicology Studies No results in the last 7 days - inpatent use only IMAGES: Reviewed in [facility] CTA negative at [facility] for active extravasation ENDOSCOPIC Hx: Reviewed in [facility] and relevant for Colonoscopy 08/26/2022 - The examined terminal ileum appeared normal. Findings: - A localized area of moderately hemorrhagic, inflamed and ulcerated mucosa was found in the cecum.Biopsies were taken with a cold forceps for histology. The pathology specimen was placed into Bottle A. Verification of patient identification for the specimen was done by the physician and nurse using the patient's name and medical record number. - Multiple small and large-mouthed diverticula were found in the sigmoid colon. - A 6 mm polyp was found in the rectum. The polyp was sessile and was removed with a jumbo cold forceps. Resection and retrieval were complete. The pathology specimen was placed into Bottle B. Verification of patient identification for the specimen was done by the physician and nurse using the patient's name and medical record number. - The exam was otherwise without abnormality on direct and retroflexion views. IMPRESSION: Martine Russell is a 82 year old female with hx of cirrhosis of unclear etiology complicated by esophageal varices, portal hypertension, history of SMA stenosis status post SMA stent 04/2022 secondary to ischemic colitis on Plavix (last dose 04/24/2023) , HFpEF, history of CVA presentingwith two day history of hematochezia concerning for ischemic colitis. On review on her CT scan, it does appear that her stent has been occluded, however, her colonoscopy in August 2022 showed active colitis in her cecum. Hgb stable thus far during hospital course. RECOMMENDATIONS/PLAN: Continue holding Plavix Colonoscopy prep ordered CLD now and NPO after MN Can DC CTX and octreotide - do not suspect variceal bleed Please ensure Hgb > 7.0, INR<2, K>3.5, Platelets >50K, sodium is within 5 points of reference range prior to the procedure. I discussed the case with my attending, Dr. Thorpe. Associated attestation - Martinez Thorpe DO - 04/26/2023 4:15 PM EST I saw and evaluated the patient today. I have reviewed the trainee note and agree. documented in this encounter Nursing Notes * Brendan Rodriguez RN - 04/27/2023 3:10 PM EST DISCHARGE PROGRESS NOTE - ENDOSCOPY [address] [address] Name: Martine Russell Location: [place] [facility] [place] Date: 04/27/2023 Time: 3:11 PM Patient is discharged under the care of : transport Report called to Inpatient unit BP7 Means of transportation: bed Bronchoscopy: N/A Oxygen support: N/A * Brendan Rodriguez RN - 04/27/2023 2:30 PM EST Per verbal order, the physician has examined the patient, prescribed and verified the charted medication, and certified that she is recovered and may return to the nursing [facility]. * Allegra Grant RN - 04/27/2023 12:20 PM EST Procedure being completed under general anesthesia. Please see anesthesia record for medications and vital signs. * Allegra Grant RN - 04/27/2023 12:08 PM EST Patient does not meet criteria for testing. * Martha Ro RN - 04/26/2023 3:00 AM EST ..Dual Licensed Skin Assessment completed by Martha Ro RN and Milton Falk RN. The patient is/has a N/A Skin Breakdown (includes non blanchable erythema): Yes. Wound Type: Skin tear, location R. arm Wound Ostomy Nurse Notified: No - wound ostomy not needed at this time Nursing interventions: covered with bandaid documented in this encounter Miscellaneous Notes * Ancillary Progress Note - Jose Torres RN - 04/28/2023 10:49 AM EST CARE MANAGEMENT - ADULT DISCHARGE [place] [facility] [id number] Name: Martine Russell Location: [facility] Date: 04/28/2023 Time: 10:50 AM The following coordination of care and discharge plan has been coordinated with the care team, patient, family and/or caregiver according to the patients needs and preferences. Discharge Discharge Second Notice Important Message from Medicare delivered: Not Applicable (initial delivered 04/26/2023) (04/28/23 1049) Was Caregiver/Family/Facility contacted regarding discharge: Yes (04/28/23 1047) Discharge Transportation: Family/Friends drive (04/28/23 1048) Patient declined post-hospital transition of care recommendation: N/A (04/28/23 1048) Final Discharge Plan (Complete only at time of Discharge): Home - Self Care (04/28/23 1049) Destination - Admitted Since 04/26/2023 No services have been selected for the patient. Destination - Episodes Includes Destination providers with selected services from the active episodes listed below [facility] Episode start date: 04/26/2023 There are no active outsourced providers for this episode. Level 2 Complex Case Management Episode start date: 05/20/2022 There are no active outsourced providers for this episode. Narrative: discussed with Dr Mcclure this morning. Pt discharging to home. No needs identified by CM. Family/friends anticipated to provide discharge transportation. Please contact CM with any concerns. * Care Plan - Pee Valerio RN - 04/28/2023 5:05 AM EST Clinical Goal(s): patient will remain free of falls/injury this shift (04/27/23 2300) Possible barriers to meeting goal(s)/advancing plan of care: n/a Stability of the patient: Moderately stable - low risk of patient condition declining or worsening Summary regarding today's goal(s): Met: patient remained free of falls and injury Recommendations: hourly rounds and bed alarms * Communication - Sara Lim DO - 04/27/2023 2:57 PM EST BRIEF NOTE - GASTROENTEROLOGY and HEPATOLOGY "Findings & Specimens: The perianal and digital rectal examinations were normal. Scattered small and large-mouthed diverticula were found in the sigmoid colon. Clotted blood noted without any stigmata of active bleeding. The cecum appeared normal. The terminal ileum appeared normal. No additional abnormalities were found on retroflexion in rectum. Impression: - Diverticulosis in the sigmoid colon. Clotted blood noted in the diverticula without any stigmata of active bleeding. - The cecum is normal. - The examined portion of the ileum was normal. - No specimens collected." Recommendations Hematochezia likely related to diverticular bleed Resume diet Ok to resume Plavix tomorrow Will need hepatology OP follow up for cirrhosis and grade II varices found on recent EGD. Thank you for allowing us to participate in the care of this patient. Please call back if there are further questions. * Ancillary Progress Note - Nikki Garcia RN - 04/27/2023 8:36 AM EST CARE MANAGEMENT - ADULT TRANSITION [place] [facility] [address] Name: Martine Russell Location: [facility] Date: 04/27/2023 Time: 8:36 AM Risk Stratification Risk Stratification Psycho Social / Medical Concerns Identified: Adjustment to illness/injury;Multiple Comorbidities (04/26/23 0915) Readmission Risk Score: 20.06 (04/27/23 0801) AM-PAC Score With Stairs : 19 (04/27/23 0700) Caregiver Information Patient Contacts Name Relation Home Work Mobile Adrian Russell Spouse [phone] Madelyn Castaneda Adult Child [phone] Transition of Care Checklist Transition of Care Checklist (aka Readmission Risk Score) Discharge Disposition: Home w/Home Health (04/26/23916) Home or Home w/Home Health: High (18-33%) (04/26/23916) Narrative: Patient discussed during IDT rounds, chart reviewed. Patient is not medically ready for discharge on this date. Patient is NPO and is outstanding for a colonoscopy today to assess source of GI bleed. Patient has been weaned from Protonix and octreotide gtts. Patient has been re-referred to [facility] to f/u with patient on discharge. Patient has no additional discharge needs identified, CM will continue to follow along. Please contact CM with any questions or concers. Anticipated Transportation at Discharge: family Patient/Family Expectations: home, self care Transition Planning Transition Planning Transition Plan/Considerations: Needs uncertain at this time - Continue monitoring for needs (04/26/23916) Additional Considerations: n/a Care Management will continue to monitor and assist with discharge planning needs * Ancillary Progress Note - Nikki Garcia RN - 04/26/2023 9:17 AM EST CARE MANAGEMENT - ADULT INITIAL SCREENING [facility] [address] Name: Martine Russell Location: [facility] Date: 04/26/2023 Time: 9:17 AM Discussed patient with the interdisciplinary care team. This Keypuncher performed a chart review and met with Martine Russell at bedside to complete admission screen and assessed needs for transition planning. The neonatal critical care nurse role and services were explained and emotional support was provided. Chief Complaint: No chief complaint on file. Prior Living Arrangements What was your living situation prior to admission/observation?: Independently;With Spouse ([phone]) Living Quarters: House (04/26/23914) Number of steps to enter living quarters:: 4 (04/26/23914) History of falling: No (04/26/23121) Prior Level of Functioning Describe the patient's ability prior to admission/observation to perform ADLs: Performs independently (04/26/23914) Describe the patient's mobility status prior to admission: Patient ambulates independently (04/26/23914) Patient uses assistive device: Yes (04/26/23914) If yes, choose:: Walker;Wheelchair (04/26/23914) Caregiver Information Patient Contacts Name Relation Home Work Mobile Adrian Russell Spouse [phone] Madelyn Castaneda Adult Child [phone] Risk Stratification/Psychosocial/Care Gaps Risk Stratification Psycho Social / Medical Concerns Identified: Adjustment to illness/injury;Multiple Comorbidities (04/26/23914) Readmission Risk Score: 19.74 (04/26/23799) AM-PAC Score With Stairs : 18 (04/26/23121) Prior to Admission Services Services Prior to Admission OFFICIAL COURT REPORTER Services (Services received within the last 30 days with exception, Psych within last two years): N/A (04/26/23914) [place] Dept[place] of Aging (PDA) Waiver Program: N/A (04/26/23914) OFFICIAL COURT REPORTER Transportation (Services received within the last 30 days): Family/Friends Personal Vehicle (04/26/23914) Outpatient Keypuncher: Patient Care Team: Cheryl Ruiz RN as Bait Painter (Rasmussen Reportser at Home) Patient/Family Expectations: CM met with patient at the bedside to discuss discharge planning. Patient is from home with her spouse. They live in a one story home (there is a basement, but patient reports not ever going down to it). There are 4 JOHN. Patient reports being independent OFFICIAL COURT REPORTER. Patient has a walker and WC (only uses if needed), but also has a cane that she does not use. Patient's spouseand child drive. Patient uses [facility] or [facility] in [place]. Patient states that she has used [facility] - no record found of this. Patient appears to have had [facility] set up in the past, but she reportedly refused. Patient was previously active with [facility] - but per Cheryl Ruiz, omi ent has been unenrolled. Patient states that she is active with [facility] services, states that it is someone by the name of "Oriana" that she follows with. Patient denied prior SNF/IRF services. CM requested a new referral be sent to [facility] to re-enroll the patient. Patient declined discharge needs at this time, states that she feels supported at home. CM encouraged patient to reach out with arising needs. CM will continue to follow along, please contact CM with any questions or concerns. For further screening information, please refer to the Care Management flow document. * Care Plan - Martha Ro RN - 04/26/2023 1:56 AM EST Problem: Actual & Potential for Falls Goal: Patient will remain free of falls. Outcome: Progressing Clinical Goal(s): patient will remain free of falls this shift (04/26/23116) Possible barriers to meeting goal(s)/advancing plan of care: hospitalization, admitting diagnosis Stability of the patient: Moderately stable - low risk of patient condition declining or worsening Summary regarding today's goal(s): Met: Patient remained free of falls. Recommendations: hourly rounds, call barnes within reach, fall precautions documented in this encounter Plan of Treatment Upcoming Encounters Date Type Department Care Team (Late st Contact Info) Description 05/04/2023 12:30 PM EST [facility] Visit [facility] [address] [place] [address] Cheryl Ruiz RN [address] [place] [address] 05/10/2023 11:20 AM EST Office Visit [facility] [address] [phone] Alexy Al MD [address] [place] [address] 05/18/2023 1:00 PM EST [facility] Visit [facility] [address] [place] [address] Crescencio Santillan PA-C [address] [place] [address] 08/17/2023 12:40 PM EDT Office Visit Hepatology, [facility] [address] [place] [address] Dayan Sanford DO [address] [place] [address] 10/06/2023 10:40 AM EDT Office Visit [facility] [address] [place] [phone] Alexy Al MD [address] [place] [address] Scheduled Orders Name Type Priority Associated Diagnoses Order Schedule COLONOSCOPY, DIAGNOSTIC (RECTUM) Procedures Routine Once for 1 Occurrences starting 04/27/2023 until 04/27/2023 GLUCOSE METER, POINT OF CARE (COMMUNICATION ORDER) Point of Care Testing Routine As Needed until discontinued starting 04/27/2023 Scheduled Referrals Name Type Priority Associated Diagnoses Orde r Schedule HEPATOLOGY REFERRAL OP Referral Within 10 days (routine) Cirrhosis of liver without ascites, unspecified hepatic cirrhosis type (HCC) Ordered: 04/28/2023 VASCULAR SURGERY REFERRAL OP Referral Within 10 days (routine) Mesenteric ischemia (HCC) Ordered: 04/28/2023 Health Maintenance Due Date Last Done Comments [...] D LEVEL ONCE IN A LIFETIME-USE SMARTSET# [id number] Completed 01/27/2021, 08/21/2017, 03/08/2017, Additional history exists [...] this encounter Medical Devices Implanted Type Area Elementary Instructional Coach Device Identifier Shelf Expiration Date Model / Serial / Lot Stent Graft [id number] - [id number] - [id number] Implanted:Qty: 1 on 05/09/2022 by Cedrick Phillips MD [facility] [place] : MARTIN [id number] 02/11/2025 [id number] 3 / [id number] / [id number] documented as of this encounter Procedures Procedure Name Priority Date/Time Associated Diagnosis Comments GLUCOSE METER, POINT OF CARE ALBERTO 04/28/2023 10:58 AM EST COMPREHENSIVE METABOLIC PANEL Routine 04/28/2023 8:13 AM EST PT INR Routine 04/28/2023 8:13 AM EST CBC Routine 04/28/2023 8:13 AM EST MAGNESIUM Routine 04/28/2023 8:13 AM EST GLUCOSE METER, POINT OF CARE ALBERTO 04/28/2023 6:26 AM EST GLUCOSE METER, POINT OF CARE ALBERTO 04/27/2023 9:43 PM EST GLUCOSE METER, POINT OF CARE ALBERTO 04/27/2023 4:29 PM EST COLONOSCOPY 04/27/2023 12:23 PM EST Colonoscopy, Diagnostic (Rectum) 04/27/2023 12:20 PM EST Hematochezia GLUCOSE METER, POINT OF CARE ALBERTO 04/27/2023 11:35 AM EST COMPREHENSIVE METABOLIC PANEL Routine 04/27/2023 6:44 AM EST PT INR Routine 04/27/2023 6:44 AM EST CBC Routine 04/27/2023 6:44 AM EST MAGNESIUM Routine 04/27/2023 6:44 AM EST GLUCOSE METER, POINT OF CARE ALBERTO 04/27/2023 6:23 AM EST GLUCOSE METER, POINT OF CARE ALBERTO 04/27/2023 12:16 AM EST GLUCOSE METER, POINT OF CARE ALBERTO 04/26/2023 9:06 PM EST CBC Routine 04/26/2023 8:07 PM EST GLUCOSE METER, POINT OF CARE ALBERTO 04/26/2023 4:27 PM EST HEPATITIS C RNA ADD ON Routine 3 2:09 PM EST HIV ANTIGEN & ANTIBODY SCREEN W/ CONFIRMATION Routine 04/26/2023 2:09 PM EST HEPATITIS C ANTIBODY SCREEN WITH PROGRESSION TO HEPATITIS C RNA QUANTITATIVE Routine 04/26/2023 2:09 PM EST HEPATITIS C ANTIBODY Routine 04/26/2023 2:09 PM EST GLUCOSE METER, POINT OF CARE ALBERTO 04/26/2023 11:37 AM EST COMPREHENSIVE METABOLIC PANEL Routine 04/26/2023 7:31 AM EST IRON SCREEN, INCLUDING TIBC Add-on 04/26/2023 7:31 AM EST PT INR Routine 04/26/2023 7:31 AM EST PHOSPHORUS Routine 04/26/2023 7:31 AM EST CBC Routine 04/26/2023 7:31 AM EST MAGNESIUM Routine 04/26/2023 7:31 AM EST FERRITIN Add-on 04/26/2023 7:31 AM EST GLUCOSE METER, POINT OF CARE ALBERTO 04/26/2023 6:41 AM EST GLUCOSE METER, POINT OF CARE ALBERTO 04/26/2023 5:17 AM EST MRSA SCREEN, PCR Routine 04/26/2023 2:43 AM EST HEPATIC FUNCTION PANEL STAT 1:30 AM EST BASIC METABOLIC PANEL STAT 04/26/2023 1:30 AM EST TYPE AND SCREEN STAT 04/26/2023 1:30 AM EST PT INR STAT 04/26/2023 1:30 AM EST CBC STAT 04/26/2023 1:30 AM EST documented in this encounter Results * (ABNORMAL) GLUCOSE METER, POINT OF CARE (04/28/2023 10:58 AM EST) Glucose Meter 270(H) 70 - 120 mg/dL 04/28/2023 11:18 AM EST [facility] Blood Whole blood specimen / Unknown 04/28/2023 10:58 AM EST 04/28/2023 11:18 AM EST Calvin Mcclure MD LAB POINT OF CARE T EST DOCKED DEVICE UNSOLICITED RESULTS [facility] [address] [place] [address] * (ABNORMAL) PT INR (04/28/2023 8:13 AM EST) Prothrombin Time 17.1(H) 11.6 - 15.2 seconds 04/28/2023 9:[address] [facility] INR 1.4(H) 0.8 - 1.2 04/28/2023 9:[address] [facility] Blood Venous blood specimen / Unknown Venipuncture / Unknown 04/28/2023 8:13 AM EST 04/28/2023 8:50 AM EST Narrative [facility] - 04/28/2023 9:24 AM EST Warfarin Therapy INR: 2.0-3.0 conventional anticoagulation INR: 2.5-3.5 high intensity anticoagulation Calvin Mcclure MD LAB BLOOD ORDERABLE S [facility] [address] [place] [address] * MAGNESIUM (04/28/2023 8:13 AM EST) Magnesium 1.8 1.5 - 2.6 mg/dL 04/28/2023 9:29 AM EST [facility] Blood Venous blood specimen / Unknown Venipuncture / Unknown 04/28/2023 8:13 AM EST 04/28/2023 8:50 AM EST Calvin Mcclure MD LAB BLOOD ORDERABLE S [facility]ORY [facility] [address] [place] [address] * (ABNORMAL) COMPREHENSIVE METABOLIC PANEL (04/28/2023 8:13 AM EST) BUN 11 6 - 20 mg/dL 04/28/2023 9:29 AM EST [facility] Creatinine 0.8 0.5 - 1.0 mg/dL 04/28/2023 9:29 AM EST [facility] Estimated Glomerular Filtration Rate 76 >=60 mL/min 04/28/2023 9:29 AM EST [facility] Comment:eGFR is calculated b ased on the CKD-EPI 2020 equation Sodium 139 135 - 146 mmol/L 04/28/2023 9:29 AM EST [facility] Potassium 3.9 3.5 - 5.1 mmol/L 04/28/2023 9:29 AM EST [facility] Chloride 108(H) 98 - 107 mmol/L 04/28/2023 9:29 AM EST [facility] CO2 23 22 - 32 mmol/L 04/28/2023 9:29 AM EST [facility] Anion Gap 8 7 - 15 mmol/L 04/28/2023 9:29 AM EST [facility] Glucose 139(H) 70 - 120 mg/dL 04/28/2023 9:29 AM EST [facility] Albumin 2.9(L) 3.8 - 5.0 g/dL 04/28/2023 9:29 AM EST [facility] AST 68(H) 10 - 35 U/L 04/28/2023 9:29 AM EST [facility] Alkaline Phosphatase 55 35 - 130 U/L 04/28/2023 9:29 AM EST [facility] Bilirubin, Total 1.4(H) <=1.2 mg/dL 04/28/2023 9:29 AM EST [facility] Calcium 7.7(L) 8.4 - 10.2 mg/dL 04/28/2023 9:29 AM EST [facility] Protein 5.8(L) 6.0 - 8.3 g/dL 04/28/2023 9:29 AM EST [facility] ALT 42(H) 10 - 35 U/L 04/28/2023 9:29 AM EST [facility] Blood Venous blood specimen / Unknown Venipuncture / Unknown 04/28/2023 8:13 AM EST 04/28/2023 8:50 AM EST Calvin Mcclure MD LAB BLOOD ORDERABLE S Performing Organization Address City/State/[facility] Co de Phone Number [facility] [address] [place] [address] * (ABNORMAL) CBC (04/28/2023 8:13 AM EST) WBC 5.18 4.00 - 10.80 K/uL 04/28/2023 9:14 AM EST [facility] RBC 3.96 3.85 - 5.15 M/uL 04/28/2023 9:14 AM EST [facility] HGB 11.1(L) 12.0 - 15.3 g/dL 04/28/2023 9:14 AM EST [facility] HCT 35.5(L) 36.0 - 45.2 % 04/28/2023 9:14 AM EST [facility] MCV 89.6 81.5 - 97.5 fL 04/28/2023 9:14 AM EST [facility] MCH 28.0 27.0 - 34.0 pg 04/28/2023 9:14 AM EST [facility] MCHC 31.3 32.0 - 36.0 g/dL 04/28/2023 9:14 AM EST [facility] RDW 20.3 11.5 - 15.5 % 04/28/2023 9:14 AM EST [facility] PLT 118(L) 140 - 400 K/uL 04/28/2023 9:[address] [facility] MPV 11.4 6.6 - 11.1 fL 04/28/2023 9:[address] [facility] nRBCs 0 <=0 /100 WBCs 04/28/2023 9:[address] [facility] Blood Venous blood specimen / Unknown Venipuncture / Unknown 04/28/2023 8:13 AM EST 04/28/2023 8:51 AM EST Calvin Mcclure MD LAB BLOOD ORDERABLE S [facility] [address] [place] [address] * GLUCOSE METER, POINT OF CARE (04/28/2023 6:26 AM EST) Glucose Meter 114 70 - 120 mg/dL 04/28/2023 6:32 AM EST [employer] Blood Whole blood specimen / Unknown 04/28/2023 6:26 AM EST 04/28/2023 6:32 AM EST Calvin Mcclure MD LAB POINT OF CARE T EST DOCKED DEVICE UNSOLICITED RESULTS Performing Organization Address City/[facility] Co de Phone Number [facility] [address] [place] [address] * (ABNORMAL) GLUCOSE METER, POINT OF CARE (04/27/2023 9:43 PM EST) Glucose Meter 143(H) 70 - 120 mg/dL 04/27/2023 9:45 PM EST [employer] Blood Whole blood specimen / Unknown 04/27/2023 9:43 PM EST 04/27/2023 9:45 PM EST Calvin Mcclure MD LAB POINT OF CARE T EST DOCKED DEVICE UNSOLICITED RESULTS Performing Organization Address City/[facility]/ZIP Co de Phone Number [facility] [address] [place] [address] * (ABNORMAL) GLUCOSE METER, POINT OF CARE (04/27/2023 4:29 PM EST) Glucose Meter 142(H) 70 - 120 mg/dL 04/27/2023 4:39 PM EST [facility] [employer] Blood Whole blood specimen / Unknown 04/27/2023 4:29 PM EST 04/27/2023 4:39 PM EST Calvin Mcclure MD LAB POINT OF CARE T EST DOCKED DEVICE UNSOLICITED RESULTS [facility] [address] [place] [address] * COLONOSCOPY (04/27/2023 12:23 PM EST) 04/27/2023 12:2 3 PM EST Narrative Procedure Note Calvin Mcclure MD - 04/27/2023 12:23 PM EST [facility] Patient Name: Martine Russell Procedure Date: 04/27/2023 12:23 PM Date of : 1940 Admit Type: Inpatient Note Status:Finalized Date of : 1940 Admit Type: Inpatient Age: 82 Room: Endo - Room 4 Gender: Female Note Status: Finalized Procedure: Colonoscopy Indications: Hematochezia. Colonoscopy in 08/2022 with cecalinflammation. Providers: Elian Hernandez MD (Doctor), Torrey Méndez (Fellow), Allegra Grant RN, Sabrina Breaux Patient Profile: This is an 82 year old female. Refer to note inpatient chart for documentation of history and physical. H/o mesenteric ischemia s/pSMA stent on plavix. Referring MD: Morro Phelan MD, [facility] Medic[facility]: Monitored Anesthesia Care Complications: No immediate complications. Procedure: Pre-Anesthesia Assessment: - [place] Protocol: - Pre-procedure Verification: Prior to theprocedure, the patient's identity was verified by full name, date of and medicalrecord number. The patient's identity was verified on all pertinent medicalrecords, including History and Physical. Also prior to the procedure, a Historyand Physical was performed, and patient medications, allergies and sensitivitieswere reviewed. The patient's tolerance of previous anesthesia was reviewed. Thepatient is competent. The risks and benefits of the procedure and the sedationoptions and risks were discussed with the patient. All questions were answered andinformed consent was obtained. - Time-Out: Prior to the start of the procedure,the patient's identification, proposed procedure, accurate signed consent,correctly labeled images and records, and need for prophylactic antibiotics were verifiedby the physician, the nurse, the snuff box finisher and the dental laboratory technician in the procedureroom. - ASA Grade Assessment: III - A patient with severesystemic disease. - The supervising physician was present for theentire procedure from scope insertion until scope withdrawal. After I obtained informed consent, the scope waspassed under direct vision. All instruments were visually inspected immediatelybefore and after removal from the patient to ensure they are fully intact. Throughout the procedure, the patient's bloodpressure, pulse, and oxygen saturations were monitored continuously. The [id number] ([id number]) was introduced through the anus and advanced to 20 cm into theileum. The colonoscopy was performed without difficulty. The patient tolerated theprocedure well. The quality of the bowel preparation was good. Findings & Specimens: The perianal and digital rectal examinations were normal. Scattered small and large-mouthed diverticula were found in thesigmoid colon. Clotted blood noted without any stigmata of active bleeding. The cecum appeared normal. The terminal ileum appeared normal. No additional abnormalities were found on retroflexion in rectum. Impression: - Diverticulosis in the sigmoid colon. Clottedblood noted in the diverticula without any stigmata of active bleeding. - The cecum is normal. - The examined portion of the ileum was normal. - No specimens collected. Recommendation: - [facility] - Further care as per inpatient GI consult team. Elian Hernandez MD 04/27/2023 2:12:10 PM This report has been signed electronically. Torrey Jackson, Estimated Blood Loss: Estimated blood loss: none. Calvin Mcclure MD GASTRO LOWER * (ABNORMAL) GLUCOSE METER, POINT OF CARE (04/27/2023 11:35 AM EST) Glucose Meter 148(H) 70 - 120 mg/dL 04/27/2023 11:50 AM EST [facility] [employer] Blood Whole blood specimen / Unknown 04/27/2023 11:35 AM EST 04/27/2023 11:50 AM EST Clavin Mcclure MD LAB POINT OF CARE T EST DOCKED DEVICE UNSOLICITED RESULTS [facility] [address] [place] [address] * (ABNORMAL) PT INR (04/27/2023 6:44 AM EST) Prothrombin Time 17.9(H) 11.6 - 15.2 seconds 04/27/2023 7:13 AM EST [facility] INR 1.5(H) 0.8 - 1.2 04/27/2023 7:13 AM EST [facility] Blood Venous blood specimen / Unknown Venipuncture / Unknown 04/27/2023 6:44 AM EST 04/27/2023 6:50 AM EST Narrative [facility] - 04/27/2023 7:13 AM EST Warfarin Therapy INR: 2.0-3.0 conventional anticoagulation INR: 2.5-3.5 high intensity anticoagulation Calvin Mcclure MD LAB BLOOD ORDERABLE S [facility] [address] [place] [address] * MAGNESIUM (04/27/2023 6:44 AM EST) Magnesium 1.6 1.5 - 2.6 mg/dL 04/27/2023 7:17 AM EST [facility] Blood Venous blood specimen / Unknown Venipuncture / Unknown 04/27/2023 6:44 AM EST 04/27/2023 6:50 AM EST Calvin Mcclure MD LAB BLOOD ORDERABLE S [facility] [address] [place] [address] * (ABNORMAL) COMPREHENSIVE METABOLIC PANEL (04/27/2023 6:44 AM EST) BUN 17 6 - 20 mg/dL 04/27/2023 7:17 AM EST [facility] Creatinine 0.8 0.5 - 1.0 mg/dL 04/27/2023 7:17 AM EST [facility] Estimated Glomerular Filtration Rate 72 >=60 mL/min 04/27/2023 7:17 AM EST [facility] Comment:eGFR is calculated b ased on the CKD-EPI 2020 equation Sodium 139 135 - 146 mmol/L 04/27/2023 7:17 AM EST [facility] Potassium 3.4(L) 3.5 - 5.1 mmol/L 04/27/2023 7:17 AM EST [facility] Chloride 107 98 - 107 mmol/L 04/27/2023 7:17 AM EST [facility] CO2 25 22 - 32 mmol/L 04/27/2023 7:17 AM EST [facility] Anion Gap 7 7 - 15 mmol/L 04/27/2023 7:17 AM EST [facility] Glucose 179(H) 70 - 120 mg/dL 04/27/2023 7:17 AM EST [facility] Albumin 2.6(L) 3.8 - 5.0 g/dL 04/27/2023 7:17 AM EST [facility] AST 61(H) 10 - 35 U/L 04/27/2023 7:17 AM EST [facility] Alkaline Phosphatase 48 35 - 130 U/L 04/27/2023 7:17 AM EST [facility] Bilirubin, Total 1.2 <=1.2 mg/dL 04/27/2023 7:17 AM EST [facility] Calcium 7.4(L) 8.4 - 10.2 mg/dL 04/27/2023 7:17 AM EST [facility] Protein 5.3(L) 6.0 - 8.3 g/dL 04/27/2023 7:17 AM EST [facility] ALT 38(H) 10 - 35 U/L 04/27/2023 7:17 AM EST [facility] Blood Venous blood specimen / Unknown Venipuncture / Unknown 04/27/2023 6:44 AM EST 04/27/2023 6:50 AM EST Calvin Mcclure MD LAB BLOOD ORDERABLE S Performing Organization Address City/State/[facility] Co de Phone Number [facility] [address] [place] [address] * (ABNORMAL) CBC (04/27/2023 6:44 AM EST) WBC 4.94 4.00 - 10.80 K/uL 04/27/2023 7:54 AM EST [facility] RBC 3.68 3.85 - 5.15 M/uL 04/27/2023 7:54 AM EST [facility] HGB 10.3(L) 12.0 - 15.3 g/dL 04/27/2023 7:54 AM EST [facility] HCT 31.7(L) 36.0 - 45.2 % 04/27/2023 7:54 AM EST [facility] MCV 86.1 81.5 - 97.5 fL 04/27/2023 7:54 AM EST [facility] MCH 28.0 27.0 - 34.0 pg 04/27/2023 7:54 AM EST [facility] MCHC 32.5 32.0 - 36.0 g/dL 04/27/2023 7:54 AM EST [facility] RDW 19.9 11.5 - 15.5 % 04/27/2023 7:54 AM EST [facility] PLT 95(L) 140 - 400 K/uL 04/27/2023 7:54 AM EST [facility] MPV 9.8 6.6 - 11.1 fL 04/27/2023 7:54 AM EST [facility] nRBCs 0 <=0 /100 WBCs 04/27/2023 7:54 AM EST [facility] Blood Venous blood specimen / Unknown Venipuncture / Unknown 04/27/2023 6:44 AM EST 04/27/2023 6:50 AM EST Calvin Mcclure MD LAB BLOOD ORDERABLE S [facility] [address] [place] [address] * (ABNORMAL) GLUCOSE METER, POINT OF CARE (04/27/2023 6:23 AM EST) Glucose Meter 174(H) 70 - 120 mg/dL 04/27/2023 6:26 AM EST [facility] Blood Whole blood specimen / Unknown 04/27/2023 6:23 AM EST 04/27/2023 6:26 AM EST Calvin Mcclure MD LAB POINT OF CARE T EST DOCKED DEVICE UNSOLICITED RESULTS Performing Organization Address [facility]/ZIP Co de Phone Number [facility] [address] [place] [address] * (ABNORMAL) GLUCOSE METER, POINT OF CARE (04/27/2023 12:16 AM EST) Glucose Meter 194(H) 70 - 120 mg/dL 04/27/2023 12:18 AM EST [employer] [facility] Blood Whole blood specimen / Unknown 04/27/2023 12:16 AM EST 04/27/2023 12:18 AM EST Calvin Mcclure MD LAB POINT OF CARE T EST DOCKED DEVICE UNSOLICITED RESULTS Performing Organization Address [facility]/ZIP Co de Phone Number [facility] [address] [place] [address] * (ABNORMAL) GLUCOSE METER, POINT OF CARE (04/26/2023 9:06 PM EST) Glucose Meter 204(H) 70 - 120 mg/dL 04/26/2023 9:11 PM EST [facility] [employer] Blood Whole blood specimen / Unknown 04/26/2023 9:06 PM EST 04/26/2023 9:11 PM EST Calvin Mcclure MD LAB POINT OF CARE T EST DOCKED DEVICE UNSOLICITED RESULTS [facility] [address] [place] [address] * (ABNORMAL) CBC (04/26/2023 8:07 PM EST) WBC 8.17 4.00 - 10.80 K/uL 04/26/2023 8:40 PM EST [facility] RBC 3.99 3.85 - 5.15 M/uL 04/26/2023 8:40 PM EST [facility] HGB 11.2(L) 12.0 - 15.3 g/dL 04/26/2023 8:40 PM EST [facility] HCT 35.1(L) 36.0 - 45.2 % 04/26/2023 8:40 PM EST [facility] MCV 88.0 81.5 - 97.5 fL 04/26/2023 8:[address] [facility] MCH 28.1 27.0 - 34.0 pg 04/26/2023 8:[address] [facility] MCHC 31.9 32.0 - 36.0 g/dL 04/26/2023 8:[address] [facility] RDW 20.0 11.5 - 15.5 % 04/26/2023 8:[address] [facility] PLT 123(L) 140 - 400 K/uL 04/26/2023 8:[address] [facility] MPV 11.8 6.6 - 11.1 fL 04/26/2023 8:[address] [facility] nRBCs 0 <=0 /100 WBCs 04/26/2023 8:[address] [facility] Blood Venous blood specimen / Unknown Venipuncture / Unknown 04/26/2023 8:07 PM EST 04/26/2023 8:21 PM EST Leonela Johnson PA-C LAB BLOOD ORDERABLES [facility] [address] [place] [address] * (ABNORMAL) GLUCOSE METER, POINT OF CARE (04/26/2023 4:27 PM EST) Glucose Meter 286(H) 70 - 120 mg/dL 04/26/2023 4:29 PM EST [facility] Blood Whole blood specimen / Unknown 04/26/2023 4:27 PM EST 04/26/2023 4:29 PM EST Calvin Mcclure MD LAB POINT OF CARE T EST DOCKED DEVICE UNSOLICITED RESULTS Performing Organization Address [facility] Co de Phone Number [facility] [address] [place] [address] * HEPATITIS C RNA ADD ON (04/26/2023 2:09 PM EST) Blood Venous blood specimen / Unknown Venipuncture / Unknown 04/26/2023 2:09 PM EST 04/26/2023 2:21 PM EST Calvin Mcclure MD LAB BLOOD ORDERABLE S Performing Organization Address [facility] Co de Phone Number [facility]ORY [facility] [address] [place] [address] * HEPATITIS C ANTIBODY (04/26/2023 2:09 PM EST) Pathologist [facility] Hepatitis C Antibody Negative Negative 04/26/2023 3:[address] [facility] Comment:Further HCV quantita tive testing not performed per protocol. Blood Venous blood specimen / Unknown Venipuncture / Unknown 04/26/2023 2:09 PM EST 04/26/2023 2:21 PM EST Calvin Mcclure MD LAB BLOOD ORDERABLE S Performing Organization Address [facility] Co de Phone Number [facility] [address] [place] [address] * HIV ANTIGEN & ANTIBODY SCREEN W/ CONFIRMATION (04/26/2023 2:09 PM EST) Pathologist [facility] HIV Antigen & Antibody Negative Negative 04/26/2023 3:[address] [facility] Comment:Negative HIV-1/2 ant igen and antibody screening tset results usually indicate the absence of HIV-1 and HIV-2 infection. However, such negative results do not rule-out acute HIV infection. If acute HIV-1 infection is highly suspected, it is recommended that a specimen be submitted for detection of HIV-1 RNA. Blood Venous blood specimen / Unknown Venipuncture / Unknown 04/26/2023 2:09 PM EST 04/26/2023 2:21 PM EST Calvin Mcclure MD LAB BLOOD ORDERABLE S Performing Organization Address City/[facility]/ZIP Co de Phone Number [facility] [address] [place] [address] * (ABNORMAL) GLUCOSE METER, POINT OF CARE (04/26/2023 11:37 AM EST) [facility] Glucose Meter 153(H) 70 - 120 mg/dL 04/26/2023 11:45 AM EST [facility] Blood Whole blood specimen / Unknown 04/26/2023 11:37 AM EST 04/26/2023 11:45 AM EST aClvin Mcclure MD LAB POINT OF CARE T EST DOCKED DEVICE UNSOLICITED RESULTS Performing Organization Address [facility] Co de Phone Number [facility] [address] [place] [address] * FERRITIN (04/26/2023 7:31 AM EST) [facility] Ferritin 69 13 - 150 ng/mL 04/26/2023 2:[address] [facility] Comment:Postmenopausal women have higher ferritin levels than pre-menopausal women. The above reference interval is based on pre-menopausal women. Blood Venous blood specimen / Unknown Venipuncture / Unknown 04/26/2023 7:31 AM EST 04/26/2023 8:09 AM EST Calvin Mcclure MD LAB BLOOD ORDERABLE S [facility] [place] [address] [place] [address] * (ABNORMAL) IRON SCREEN, INCLUDING TIBC (04/26/2023 7:31 AM EST) Iron 23(L) 33 - 151 ug/dL 04/26/2023 2:07 PM EST [facility] Iron Binding Capacity 299 250 - 425 ug/dL 04/26/2023 2:07 PM EST [facility] Transferrin Saturation Percent 8(L) 15 - 55 % 04/26/2023 2:07 PM EST LABORATORY C Blood Venous blood specimen / Unknown Venipuncture / Unknown 04/26/2023 7:31 AM EST 04/26/2023 8:09 AM EST Calvin Mcclure MD LAB BLOOD ORDERABLE S [facility] [place] [address], [place] [id number] * PHOSPHORUS (04/26/2023 7:31 AM EST) Phosphorus 4.2 2.5 - 4.8 mg/dL 04/26/2023 8:36 AM EST LAB[facility]ATORY [facility] Blood Venous blood specimen / Unknown Venipuncture / Unknown 04/26/2023 7:31 AM EST 04/26/2023 8:09 AM EST Carline Monteiro PA-C LAB BLOO D ORDERABLES Performing Organization Address City/[facility]/ZIP Co de Phone Number [facility]ATORY [facility] [address] [place] [address] * MAGNESIUM (04/26/2023 7:31 AM EST) Magnesium 1.6 1.5 - 2.6 mg/dL 04/26/2023 8:36 AM EST LABORATORY C Blood Venous blood specimen / Unknown Venipuncture / Unknown 04/26/2023 7:31 AM EST 04/26/2023 8:09 AM EST Carline Monteiro PA-C LAB BLOO D ORDERABLES [facility]ORY [facility] [address] [place] [address] * (ABNORMAL) PT INR (04/26/2023 7:31 AM EST) Prothrombin Time 18.0(H) 11.6 - 15.2 seconds 04/26/2023 8:32 AM EST LABORATORY [facility] INR 1.5(H) 0.8 - 1.2 04/26/2023 8:[address] [facility] Blood Venous blood specimen / Unknown Venipuncture / Unknown 04/26/2023 7:31 AM EST 04/26/2023 8:09 AM EST Narrative [facility] - 04/26/2023 8:32 AM EST Warfarin Therapy INR: 2.0-3.0 conventional anticoagulation INR: 2.5-3.5 high intensity anticoagulation Carline Monteiro PA-C LAB BLOO D ORDERABLES [facility] [address] [place] [address] * (ABNORMAL) COMPREHENSIVE METABOLIC PANEL (04/26/2023 7:31 AM EST) BUN 27(H) 6 - 20 mg/dL 04/26/2023 8:36 AM EST [facility] Creatinine 0.9 0.5 - 1.0 mg/dL 04/26/2023 8:36 AM EST LABORATORY [facility] Estimated Glomerular Filtration Rate 62 >=60 mL/min 04/26/2023 8:36 AM EST [facility] Comment:eGFR is calculated b ased on the CKD-EPI 2020 equation Sodium 142 135 - 146 mmol/L 04/26/2023 8:36 AM EST [facility] Potassium 3.8 3.5 - 5.1 mmol/L 04/26/2023 8:36 AM EST [facility] Chloride 110(H) 98 - 107 mmol/L 04/26/2023 8:36 AM EST [facility] CO2 25 22 - 32 mmol/L 04/26/2023 8:36 AM EST [facility] Anion Gap 7 7 - 15 mmol/L 04/26/2023 8:36 AM EST [facility] Glucose 198(H) 70 - 120 mg/dL 04/26/2023 8:36 AM EST [facility] Albumin 2.6(L) 3.8 - 5.0 g/dL 04/26/2023 8:36 AM EST [facility] AST 53(H) 10 - 35 U/L 04/26/2023 8:36 AM EST [facility] Alkaline Phosphatase 47 35 - 130 U/L 04/26/2023 8:36 AM EST [facility] Bilirubin, Total 1.1 <=1.2 mg/dL 04/26/2023 8:36 AM EST [facility] Calcium 7.7(L) 8.4 - 10.2 mg/dL 04/26/2023 8:36 AM EST [facility] Protein 5.3(L) 6.0 - 8.3 g/dL 04/26/2023 8:36 AM EST [facility] ALT 36(H) 10 - 35 U/L 04/26/2023 8:36 AM EST [facility] Blood Venous blood specimen / Unknown Venipuncture / Unknown 04/26/2023 7:31 AM EST 04/26/2023 8:09 AM EST Carline Van Monteiro PA-C LAB BLOO D ORDERABLES Performing Organization Address City/State/[facility] Co de Phone Number LABORATORY [facility] [address] [place] [address] * (ABNORMAL) CBC (04/26/2023 7:31 AM EST) WBC 5.53 4.00 - 10.80 K/uL 04/26/2023 8:17 AM EST [facility] RBC 3.73 3.85 - 5.15 M/uL 04/26/2023 8:17 AM EST [facility] HGB 10.4(L) 12.0 - 15.3 g/dL 04/26/2023 8:17 AM EST [facility] HCT 31.3(L) 36.0 - 45.2 % 04/26/2023 8:17 AM EST [facility] MCV 83.9 81.5 - 97.5 fL 04/26/2023 8:17 AM EST [facility] MCH 27.9 27.0 - 34.0 pg 04/26/2023 8:17 AM EST [facility] MCHC 33.2 32.0 - 36.0 g/dL 04/26/2023 8:[address] [facility] RDW 19.5 11.5 - 15.5 % 04/26/2023 8:[address] [facility] PLT 100(L) 140 - 400 K/uL 04/26/2023 8:[address] [facility] MPV 11.3 6.6 - 11.1 fL 04/26/2023 8:[address] [facility] nRBCs 0 <=0 /100 WBCs 04/26/2023 8:[address] [facility] Blood Venous blood specimen / Unknown Venipuncture / Unknown 04/26/2023 7:31 AM EST 04/26/2023 8:09 AM EST Carline Monteiro PA-C LAB BLOO D ORDERABLES [facility]ORY [facility] [address] [place] [address] * (ABNORMAL) GLUCOSE METER, POINT OF CARE (04/26/2023 6:41 AM EST) Glucose Meter 207(H) 70 - 120 mg/dL 04/26/2023 11:11 AM EST First Meta Blood Whole blood specimen / Unknown 04/26/2023 6:41 AM EST 04/26/2023 11:11 AM EST Calvin Mcclure MD LAB POINT OF CARE T EST DOCKED DEVICE UNSOLICITED RESULTS [facility] [address] [place] [address] * (ABNORMAL) GLUCOSE METER, POINT OF CARE (04/26/2023 5:17 AM EST) Glucose Meter 215(H) 70 - 120 mg/dL 04/26/2023 5:20 AM EST First Meta Blood Whole blood specimen / Unknown 04/26/2023 5:17 AM EST 04/26/2023 5:20 AM EST Calvin Mcclure MD LAB POINT OF CARE T EST DOCKED DEVICE UNSOLICITED RESULTS Performing Organization Address City/[facility]/ZIP Co de Phone Number [facility] [address] [place] [address] * MRSA SCREEN, PCR (04/26/2023 2:43 AM EST) MRSA PCR Result Negative Negative 5:[address] [facility] Comment:No Methicillin resis tant Staphylococcus aureus detected by PCR (amplified probe). Upper Respiratory (Nares, Bilateral) Non-blood Collection / Unknown 04/26/2023 2:43 AM EST 04/26/2023 3:07 AM EST Carline Monteiro PA-C LAB MICR O - GENERAL ORDERABLES Performing Organization Address City/[facility]/ZIP Co de Phone Number LABORATORY [facility] [address] [place] [address] * (ABNORMAL) HEPATIC FUNCTION PANEL (04/26/2023 1:30 AM EST) Albumin 2.8(L) 3.8 - 5.0 g/dL 04/26/2023 2:06 AM EST [facility] AST 57(H) 10 - 35 U/L 04/26/2023 2:06 AM EST [facility] Alkaline Phosphatase 50 35 - 130 U/L 04/26/2023 2:06 AM EST [facility] ALT 38(H) 10 - 35 U/L 04/26/2023 2:06 AM EST [facility] Bilirubin, Total 1.4(H) <=1.2 mg/dL 04/26/2023 2:06 AM EST [facility] Bilirubin, Direct 0.7(H) 0.0 - 0.3 mg/dL 04/26/2023 2:06 AM EST [facility] Protein 5.4(L) 6.0 - 8.3 g/dL 04/26/2023 2:06 AM EST [facility] Blood Venous blood specimen / Unknown Venipuncture / Unknown 04/26/2023 1:30 AM EST 04/26/2023 1:35 AM EST Carline Monteiro PA-C LAB BLOO D ORDERABLES Performing Organization Address [facility] Co de Phone Number LABORATORY [facility] [address] [place] [address] * (ABNORMAL) PT INR (04/26/2023 1:30 AM EST) Prothrombin Time 18.3(H) 11.6 - 15.2 seconds 04/26/2023 1:[address] [facility] INR 1.5(H) 0.8 - 1.2 04/26/2023 1:[address] [facility] Blood Venous blood specimen / Unknown Venipuncture / Unknown 04/26/2023 1:30 AM EST 04/26/2023 1:35 AM EST Narrative [facility]ATORY [facility] - 04/26/2023 1:57 AM EST Warfarin Therapy INR: 2.0-3.0 conventional anticoagulation INR: 2.5-3.5 high intensity anticoagulation Carline Monteiro PA-C LAB BLOO D ORDERABLES Performing Organization Address [facility] Co de Phone Number LAB[facility]ATORY [facility] [address] [place] [address] * (ABNORMAL) BASIC METABOLIC PANEL (04/26/2023 1:30 AM EST) BUN 28(H) 6 - 20 mg/dL 04/26/2023 2:[address] [facility] Creatinine 1.0 0.5 - 1.0 mg/dL 04/26/2023 2:[address] [facility] Estimated Glomerular Filtration Rate 56(L) >=60 mL/min 04/26/2023 2:[address] [facility] Comment:eGFR is calculated b ased on the CKD-EPI 2020 equation Sodium 143 135 - 146 mmol/L 04/26/2023 2:[address] [facility] Potassium 4.0 3.5 - 5.1 mmol/L 04/26/2023 2:[address] [facility] Chloride 107 98 - 107 mmol/L 04/26/2023 2:06 AM EST [facility] CO2 23 22 - 32 mmol/L 04/26/2023 2:06 AM EST [facility] Anion Gap 13 7 - 15 mmol/L 04/26/2023 2:06 AM EST [facility] Glucose 194(H) 70 - 120 mg/dL 04/26/2023 2:06 AM EST [facility] Calcium 7.6(L) 8.4 - 10.2 mg/dL 04/26/2023 2:06 AM EST [facility] Blood Venous blood specimen / Unknown Venipuncture / Unknown 04/26/2023 1:30 AM EST 04/26/2023 1:35 AM EST Carline Monteiro PA-C LAB BLOO D ORDERABLES Performing Organization Address City/[facility] Co de Phone Number LAB[facility]ATORY [facility] [address] [place] [address] * TYPE AND SCREEN (04/26/2023 1:30 AM EST) ABO A 04/26/2023 2:[address] [facility] Rh Positive 04/26/2023 2:[address] [facility] Red Blood Cell Antibody Screen Negative 04/26/2023 2:[address] [facility] Specimen Expiration Date 04/29/2023 23:59 04/26/2023 2:[address] [facility] Blood Venous blood specimen / Unknown Venipuncture / Unknown 04/26/2023 1:30 AM EST 04/26/2023 1:35 AM EST Carline Monteiro PA-C LAB BLOO D BANK TEST ORDERABLES Performing Organization Address City/[facility] Co de Phone Number LABORATORY [facility] [address] [place] [address] * (ABNORMAL) CBC (04/26/2023 1:30 AM EST) WBC 6.23 4.00 - 10.80 K/uL 04/26/2023 1:43 AM EST [facility] RBC 3.86 3.85 - 5.15 M/uL 04/26/2023 1:43 AM EST [facility] HGB 10.9(L) 12.0 - 15.3 g/dL 04/26/2023 1:43 AM EST [facility] HCT 33.0(L) 36.0 - 45.2 % 04/26/2023 1:43 AM EST [facility] MCV 85.5 81.5 - 97.5 fL 04/26/2023 1:43 AM EST [facility] MCH 28.2 27.0 - 34.0 pg 04/26/2023 1:43 AM EST [facility] MCHC 33.0 32.0 - 36.0 g/dL 04/26/2023 1:43 AM EST [facility] RDW 19.0 11.5 - 15.5 % 04/26/2023 1:43 AM EST [facility] PLT 110(L) 140 - 400 K/uL 04/26/2023 1:43 AM EST [facility] MPV 12.0 6.6 - 11.1 fL 04/26/2023 1:43 AM EST [facility] nRBCs 0 <=0 /100 WBCs 04/26/2023 1:43 AM EST [facility] Blood Venous blood specimen / Unknown Venipuncture / Unknown 04/26/2023 1:30 AM EST 04/26/2023 1:35 AM EST Carline Van Monteiro PA-C LAB BLOO D ORDERABLES Performing Organization Address City/State/[facility] Co de Phone Number [facility]ORY [facility] [address] [place] [address] documented in this encounter Visit Diagnoses Diagnosis GI bleed Hemorrhage of gastrointestinal tract, unspecified Chest pain Chest pain, unspecified Diverticulosis of large intestine without perforation or abscess with bleeding [K57.31] Diverticulosis of colon with hemorrhage long-term (current) use of antithrombotics/antiplatelets [Z79.02] Cirrhosis of liver without ascites, unspecified hepatic cirrhosis type (HCC) Mesenteric ischemia (HCC) Unspecified vascular insufficiency of intestine GI bleed Hemorrhage of gastrointestinal tract, unspecified Type 2 diabetes mellitus with hemoglobin A1c goal of less than 8.0% (HCC) (HFpEF) heart failure with preserved ejection fraction (HCC) Ischemic colitis (HCC) Unspecified vascular insufficiency of intestine Portal hypertension (HCC) Portal hypertension 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 Mesenteric ischemia (HCC) Unspecified vascular insufficiency of intestine Dyslipidemia, goal LDL below 100 Other and unspecified hyperlipidemia HTN, goal below 140/90 Unspecified essential hypertension Cerebrovascular disease, arteriosclerotic, post-stroke Cerebral atherosclerosis Coronary artery disease involving [place] heart without angina pectoris Hepatic cirrhosis (HCC) Cirrhosis of liver without mention of alcohol documented in this encounter Administered Medications Inactive Administered Medications - up to 3 most recent administrations Medication Order MAR Action Action Date Dose Rate Site atorvaSTATin (Lipitor) tab 40 mg 40 mg, Oral, Q1700, First dose on Mon04/26/23 at 1700, Until Discontinued Given 04/27/2023 5:34 PM EST 40 mg Given 04/26/2023 4:24 PM EST 40 mg Bisacodyl (Dulcolax) tab 20 mg 20 mg, Oral, ONCE, On Mon04/26/23 at 1515, For 1 dose, For Bowel Prep, Pre-Op Given 04/26/2023 4:25 PM EST 20 mg Carvedilol (Coreg) tab 3.125 mg 3.125 mg, Oral, BID (AM/PM MEALS), First dose on Mon04/27/23 at 1700, Until Discontinued, Hold for HR less than 60 or SBP below 100 and notify service if dose is held MUST BE GIVEN WITH MEAL Given 04/28/2023 8:52 AM EST 3.125 mg Given 04/27/2023 5:34 PM EST 3.125 mg cefTRIAXone in dextrose (Rocephin) IVPB 1 g IV Piggyback, 1 g, Q24H, 7 doses, First dose on Mon04/26/23 at 0230, Last dose on Mon05/02/23 at 0230, Administer over 30 Minutes New Bag 04/26/2023 2:59 AM EST 1 g 100 mL/hr clopidogrel (pLAVix) tab 75 mg 75 mg, Oral, Daily(AM), First dose on Mon04/28/23 at 1115, Until Discontinued Given 04/28/2023 11:36 AM EST 75 mg Ferrous Sulfate (Feosol) tab 325 mg 325 mg, Oral, EVERY OTHER DAY, First dose on Mon04/27/23 at 0900, Until Discontinued, This med should NOT be Crushed or Chewed Given 04/27/2023 9:19 AM EST 325 mg insulin aspart (NovoLOG) inj Subcutaneous, Q6H, First dose on Mon04/26/23 at 0600, Until Discontinued, LOW DOSE (Elderly insulin sensitive patient): Sliding Scale Correctional insulin may be given if the patient is NPO. Dose based on standard build from Insulin Calculator. Do not modify insulin doses in administration instructions! , Glucose less than 70 instructions: Obtain STAT lab blood glucose and call covering provider., Glucose 80-150 (units): 0, Glucose 151-200 (units): 1, Glucose 201-250 (units): 2, Glucose 251-300 (units): 3, Glucose greater than 300 (units): 4, Glucose greater than 300 instructions: Give suggested insulin dose and call covering provider. Given 04/26/2023 11:50 AM EST 1 Units Arm Right Upper Given 04/26/2023 5:22 AM EST 2 Units Ar m Left Upper insulin aspart (NovoLOG) inj Subcutaneous, WITH MEALS, First dose on Mon04/26/23 at 1700, Until Discontinued, Dose equals 1 unit of insulin per 10 grams of carbohydrate consumed. Hold dose if patient does not eat Given 04/28/2023 12:35 PM EST 2 Units Arm Right Upper Given 04/28/2023 8:53 AM EST 3 Units Ar m Right Upper Given 04/27/2023 5:34 PM EST 6 Units Ar m Left Upper insulin aspart (NovoLOG) inj Subcutaneous, WITH MEALS, First dose on Mon04/26/23 at 1700, Until Discontinued, MEDIUM DOSE (Usual starting dose): Sliding Scale Correctional insulin may be given if the patient is NPO. Dose based on standard build from Insulin Calculator. Do not modify insulin doses in administration instructions! , Glucose less than 70 instructions: Obtain STAT lab blood glucose and call covering provider., Glucose 80-150 (units): 0, Glucose 151-200 (units): 2, Glucose 201-250 (units): 4, Glucose 251-300 (units): 6, Glucose greater than 300 (units): 8, Glucose greater than 300 instructions: Give suggested insulin dose and call covering provider. Given 04/28/2023 11:36 AM EST 6 Units Arm Right Upper Given 04/26/2023 4:31 PM EST 6 Units Ar m Left Upper Insulin Glargine (Lantus) inj 10 Units 10 Units, Subcutaneous, HSINSULIN, First dose on Mon04/26/23 at 2200, Until Discontinued, "IF DOSE IS HELD- NOTIFY COVERING PROVIDER!" Given 04/27/2023 10:04 PM EST 10 Units Deltoid Left Lower Given 04/26/2023 9:57 PM EST 10 Units Ab domen Left Lower isolyte-S pH 7.4 infusion Intravenous, at 25 mL/hr, for Inpatient patient Plasma-LYTE 148, isolyte-S, and isolyte-S pH 7.4 are considered equivalent - including for MAR barcode scanning., CONTINUOUS, Starting on Mon04/27/23 at 1245, Until Mon04/28/23 at 1750, Pre-Op New Bag 04/27/2023 1:08 PM EST Metoprolol Tartrate (Lopressor) tab 12.5 mg 12.5 mg, Oral, BID (.AM/PM), First dose on Mon04/26/23 at 2100, Until Discontinued, Hold for HR less than 60 or SBP below 100 and notify service if dose is held Given 04/27/2023 9:19 AM EST 12.5 mg Given 04/26/2023 9:57 PM EST 12.5 mg multivit w/min (Therapeutic-M) 1 Tablet 1 Tablet, Oral, Daily(AM), First dose on Mon04/26/23 at 0900, Until Discontinued Given 04/28/2023 8:53 AM EST 1 T ablet Given 04/27/2023 9:19 AM EST 1 Tablet Given 04/26/2023 8:18 AM EST 1 Tablet Octreotide Acetate (Sandostatin) 50 mcg in NSS 50 mL ivpb 50 mcg, IV Piggyback, ONCE, 1 dose, On Mon04/26/23 at 0230, Administer over 30 Minutes Start Infusion 04/26/2023 3:06 AM EST 50 mcg 110 mL/hr Octreotide Acetate (SandoSTATIN) 500 mcg in NSS 500 mL INFUSION Intravenous, 50 mcg/hr (50 mL/hr), Please select this medication from the infusion pump library, CONTINUOUS, Starting on Mon04/26/23 at 0300, Until Mon04/26/23 at 1305 New Bag 04/26/2023 3:43 AM EST 50 mcg/hr 50 mL/hr omeprazole (PriLOSEC) cap 40 mg 40 mg, Oral, Daily(AM), First dose on Shira 04/27/23 at 0900, Until Discontinued, This med should NOT be Crushed or Chewed Given 04/28/2023 8:53 AM EST 40 mg Given 04/27/2023 9:19 AM EST 40 mg oxygen GAS Inhalation, OXYGEN, First dose on Shira 04/27/23 at 1600, Until Discontinued, Device/Managed by: Low Flow Device, Goal SPO2 (%): 91-95, Starting Device: Nasal Cannula, Initial Flow Rate (LPM): 2, Lowest Support: Nasal Cannula: Flow 0-6 LPM. Titrate up/down by 1 LPM., Higher Support: Non-Rebreather (NRB) Mask: Minimum of 10 LPM. Titrate to maintain bag inflation., Titration Interval: Q2 minutes and as needed., Notify Provider: For sudden DECREASE in resting SPO2 to less than 85% and when escalating delivery device., Wean patient off Oxygen when the oxygen saturation is greater than or equal to 93% Pantoprazole (Protonix) 80 mg in NSS 100 mL ivpb 80 mg, IV Piggyback, ONCE, 1 dose, On Mon04/26/23 at 0230, Administer over 15 Minutes New Bag 04/26/2023 2:41 AM EST 80 mg 400 mL/hr Pantoprazole (Protonix) 80 mg in NSS 500 mL INFUSION Intravenous, at 50 mL/hr, CONTINUOUS, Starting on Mon04/26/23 at 0245, Until Mon04/26/23 at 1305 New Bag 04/26/2023 4:04 AM EST 8 mg/hr 50 mL/hr Polyethylene Glycol 3350 (Miralax) oral powder 238 g 238 g, Oral, ONCE, On Mon04/26/23 at 1800, For 1 dose, Mix entire contents of 238 grams of Miralax bottle with 64 oz of clear or light colored Gatorade or water. Stir/shake until entire contents are completely dissolved. Have the patient drink 8 oz (240 mL) of solution every 15 minutes until solution is gone. Drink the solution slowly to prevent nausea and stomach upset. You may drink it directly or use a straw., Pre-Op Given 04/26/2023 6:48 PM EST 238 g potassium chloride ER tab 40 mEq 40 mEq, Oral, ONCE, On Shira 04/27/23 at 0815, For 1 dose, This med should NOT be Crushed or Chewed Given 04/27/2023 9:19 AM EST 40 mEq tap water enema 1 Enema 1 Enema, Rectal, ONCE, On Shira 04/27/23 at 0700, For 1 dose, 250 mL tap water enema - Pre Procedure PRN, Pre-Op Given 04/27/2023 7:00 AM EST 1 Enema documented in this encounter Active and Recently Administered Medications Times are shown in EST. Scheduled Medication Order 04/26/2023 04/27/2023 04/28/2023 atorvaSTATin (Lipitor) tab 40 mg 40 mg, Oral, Q1700, First dose on Mon04/26/23 at 1700, Until Discontinued 1624 (Given - Provider: Ana Maria Vazquez, LIBBY) 1734 (Given - Provider: Chel Mullen, LIBBY) Bisacodyl (Dulcolax) tab 20 mg (COMPLETED) 20 mg, Oral, ONCE, On Mon04/26/23 at 1515, For 1 dose, For Bowel Prep, Pre-Op 1625 (Given - Provider: Ana Maria Vazquez, LIBBY) Carvedilol (Coreg) tab 3.125 mg 3.125 mg, Oral, BID (AM/PM MEALS), First dose on Mon04/27/23 at 1700, Until Discontinued, Hold for HR less than 60 or SBP below 100 and notify service if dose is held MUST BE GIVEN WITH MEAL 1734 (Given - Provider: Chel Mullen, LIBBY) 0852 (Given - Provider: Angeline Justice, LIBBY) cefTRIAXone in dextrose (Rocephin) IVPB 1 g (CANCELED) IV Piggyback, 1 g, Q24H, 7 doses, First dose on Mon04/26/23 at 0230, Last dose on Mon05/02/23 at 0230, Administer over 30 Minutes 0259 (New Bag - Provider: Martha Ro, RN) clopidogrel (pLAVix) tab 75 mg 75 mg, Oral, Daily(AM), First dose on Mon04/28/23 at 1115, Until Discontinued 1136 (Given - Provider: Angeline JusticeLIBBY) Ferrous Sulfate (Feosol) tab 325 mg 325 mg, Oral, EVERY OTHER DAY, First dose on Mon04/27/23 at 0900, Until Discontinued, This med should NOT be Crushed or Chewed 0919 (Given - Provider: Chel Mullen RN) insulin aspart (NovoLOG) inj (CANCELED) Subcutaneous, Q6H, First dose on Mon04/26/23 at 0600, Until Discontinued, LOW DOSE (Elderly insulin sensitive patient): Sliding Scale Correctional insulin may be given if the patient is NPO. Dose based on standard build from Insulin Calculator. Do not modify insulin doses in administration instructions! , Glucose less than 70 instructions: Obtain STAT lab blood glucose and call covering provider., Glucose 80-150 (units): 0, Glucose 151-200 (units): 1, Glucose 201-250 (units): 2, Glucose 251-300 (units): 3, Glucose greater than 300 (units): 4, Glucose greater than 300 instructions: Give suggested insulin dose and call covering provider. 0522 (Given - Provider: Martha Ro RN)1150 (Given - Provider: Ana Maria Vazquez RN) insulin aspart (NovoLOG) inj Subcutaneous, WITH MEALS, First dose on Mon04/26/23 at 1700, Until Discontinued, Dose equals 1 unit of insulin per 10 grams of carbohydrate consumed. Hold dose if patient does not eat 1700 (No Insulin - Provider: Ana Maria Vazquez RN - Reason: Parameter(s) Not Met) 0800 (Not Given - Provider: Chel Mullen RN - Reason: NPO)1200 (Not Given - Provider: Chel Mullen RN - Reason: NPO)1734 (Given - Provider: Chel Mullen RN) 0853 (Given - Provider: Angeline Justice RN)1235 (Given - Provider: Angeline Justice RN) insulin aspart (NovoLOG) inj Subcutaneous, WITH MEALS, First dose on Mon04/26/23 at 1700, Until Discontinued, MEDIUM DOSE (Usual starting dose): Sliding Scale Correctional insulin may be given if the patient is NPO. Dose based on standard build from Insulin Calculator. Do not modify insulin doses in administration instructions! , Glucose less than 70 instructions: Obtain STAT lab blood glucose and call covering provider., Glucose 80-150 (units): 0, Glucose 151-200 (units): 2, Glucose 201-250 (units): 4, Glucose 251-300 (units): 6, Glucose greater than 300 (units): 8, Glucose greater than 300 instructions: Give suggested insulin dose and call covering provider. 1631 (Given - Provider: Ana Maria Vazquez RN) 0800 (Not Given - Provider: Chel Mullen RN - Reason: NPO)1200 (Not Given - Provider: Chel Mullen RN - Reason: NPO)1700 (Not Given - Provider: Chel Mullen RN - Reason: Parameter(s) Not Met) 0800 (Not Given - Provider: Angeline Justice RN - Reason: Parameter(s) Not Met)1136 (Given - Provider: Angeline Justice RN) Insulin Glargine (Lantus) inj 10 Units 10 Units, Subcutaneous, HSINSULIN, First dose on Mon04/26/23 at 2200, Until Discontinued, "IF DOSE IS HELD- NOTIFY COVERING PROVIDER!" 2156 (Given - Provider: Jovon Tineo RN) 2203 (Given - Provider: Pee Valerio, LIBBY) Metoprolol Tartrate (Lopressor) tab 12.5 mg (CANCELED) 12.5 mg, Oral, BID (.AM/PM), First dose on Mon04/26/23 at 2100, Until Discontinued, Hold for HR less than 60 or SBP below 100 and notify service if dose is held 2156 (Given - Provider: Jovon Tineo RN) 918 (Given - Provider: Chel Mullen RN) multivit w/min (Therapeutic-M) 1 Tablet 1 Tablet, Oral, Daily(AM), First dose on Mon04/26/23 at 0900, Until Discontinued 817 (Given - Provider: Ana Maria Vazquez RN) 918 (Given - Provider: Chel Mullen RN) 0853 (Given - Provider: Angeline Justice RN) Octreotide Acetate (Sandostatin) 50 mcg in NSS 50 mL ivpb (COMPLETED)(Linked Group 1) 50 mcg, IV Piggyback, ONCE, 1 dose, On Mon04/26/23 at 0230, Administer over 30 Minutes 0306 (Start Infusion - Provider: Martha Ro, LIBBY)0336 (Finish Infusion - Provider: Martha Ro, LIBBY) omeprazole (PriLOSEC) cap 40 mg 40 mg, Oral, Daily(AM), First dose on Shira 04/27/23 at 0900, Until Discontinued, This med should NOT be Crushed or Chewed 0919 (Given - Provider: Chel Mullen RN) 0853 (Given - Provider: Angeline Justice, RN) oxygen GAS Inhalation, OXYGEN, First dose on Shira 04/27/23 at 1600, Until Discontinued, Device/Managed by: Low Flow Device, Goal SPO2 (%): 91-95, Starting Device: Nasal Cannula, Initial Flow Rate (LPM): 2, Lowest Support: Nasal Cannula: Flow 0-6 LPM. Titrate up/down by 1 LPM., Higher Support: Non-Rebreather (NRB) Mask: Minimum of 10 LPM. Titrate to maintain bag inflation., Titration Interval: Q2 minutes and as needed., Notify Provider: For sudden DECREASE in resting SPO2 to less than 85% and when escalating delivery device., Wean patient off Oxygen when the oxygen saturation is greater than or equal to 93% 1600 (Oxygen Off - Provider: Chel Mullen RN) 0000 (Oxygen Off - Provider: Pee Valerio RN)0800 (Oxygen Off - Provider: Angeline Justice, LIBBY) Pantoprazole (Protonix) 80 mg in NSS 100 mL ivpb (COMPLETED)(Linked Group 2) 80 mg, IV Piggyback, ONCE, 1 dose, On Mon04/26/23 at 0230, Administer over 15 Minutes 0241 (New Bag - Provider: Martha Ro, LIBBY) Polyethylene Glycol 3350 (Miralax) oral powder 238 g (COMPLETED) 238 g, Oral, ONCE, On Mon04/26/23 at 1800, For 1 dose, Mix entire contents of 238 grams of Miralax bottle with 64 oz of clear or light colored Gatorade or water. Stir/shake until entire contents are completely dissolved. Have the patient drink 8 oz (240 mL) of solution every 15 minutes until solution is gone. Drink the solution slowly to prevent nausea and stomach upset. You may drink it directly or use a straw., Pre-Op 1848 (Given - Provider: Jodie Phoenix, LIBBY) potassium chloride ER tab 40 mEq (COMPLETED) 40 mEq, Oral, ONCE, On Shira 04/27/23 at 0815, For 1 dose, This med should NOT be Crushed or Chewed 0919 (Given - Provider: Chel Mullen, RN) tap water enema 1 Enema (COMPLETED) 1 Enema, Rectal, ONCE, On Mon04/27/23 at 0700, For 1 dose, 250 mL tap water enema - Pre Procedure PRN, Pre-Op 0700 (Given - Provider: Chel Mullen, RN) Continuous Medication Order 04/26/2023 04/27/2023 04/28/2023 isolyte-S pH 7.4 infusion Intravenous, at 25 mL/hr, for Inpatient patient Plasma-LYTE 148, isolyte-S, and isolyte-S pH 7.4 are considered equivalent - including for MAR barcode scanning., CONTINUOUS, Starting on Mon04/27/23 at 1245, Until Mon04/28/23 at 1750, Pre-Op 1308 (New Bag - Provider: Vanessa Schmidt CRNA)1401 (Stopped - Provider: Vanessa Schmidt CRNA) Octreotide Acetate (SandoSTATIN) 500 mcg in NSS 500 mL INFUSION (CANCELED)(Linked Group 1) Intravenous, 50 mcg/hr (50 mL/hr), Please select this medication from the infusion pump library, CONTINUOUS, Starting on Mon04/26/23 at 0300, Until Mon04/26/23 at 1305 0343 (New Bag - Provider: Martha Ro RN)0403 (Entry Error - Provider: Martha Ro RN)1326 (Finish Infusion - Provider: Ana Maria Vazquez, LIBBY) Pantoprazole (Protonix) 80 mg in NSS 500 mL INFUSION (CANCELED)(Linked Group 2) Intravenous, at 50 mL/hr, CONTINUOUS, Starting on Mon04/26/23 at 0245, Until Mon04/26/23 at 1305 0404 (New Bag - Provider: Martha Ro RN)1326 (Finish Infusion - Provider: Ana Maria Vazquez RN) PRN Medication Order 04/26/2023 04/27/2023 04/28/2023 Acetaminophen (Tylenol) tab 650 mg 650 mg, Oral, Q6H PRN Pain, Mild, Fever >38C(100.5F), Starting on Mon04/26/23 at 0156, Until Mon04/28/23 at 1750, Maximum of 4 grams (4000 mg) per day. dextrose 50 % inj 25 mL 25 mL, IV Push, PRN Hypoglycemia, Other, For blood glucose 54 - 69 mg/dL or 70 - 100 mg/dL with symptoms AND patient is unresponsive, NPO, OR unable to swallow, Starting on Mon04/26/23 at 0149, Until Mon04/28/23 at 1750, Administer IV. Recheck blood glucose after 15 minutes. Notify provider. dextrose 50 % inj 50 mL 50 mL, IV Push, PRN Hypoglycemia, Other, For blood glucose below 54 mg/dL AND patient unresponsive, NPO, OR unable to swallow, Starting on Mon04/26/23 at 0149, Until Mon04/28/23 at 1750, Administer IV. Recheck blood glucose in 15 minutes. Notify provider. glucagon (Glucagen) inj 1 mg 1 mg, Intramuscular, PRN Hypoglycemia, Other, If patient is unresponsive, or NPO and has no IV access, Starting on Mon04/26/23 at 0149, Until Mon04/28/23 at 1750, NPO and no IV access with either 1) blood glucose less than 100 mg/dL and symptomatic OR 2) blood glucose less than 70 mg/dL and asymptomatic Glucose (Glutose 15) 40 % gel 15 g of glucose 15 g of glucose, Oral, PRN Hypoglycemia (low sugar), Other, For blood glucose 54 - 69 mg/dL or 70 - 100 mg/dL with symptoms AND patient alert WITH difficulty chewing/swallowing, Starting on Mon04/26/23 at 0149, Until Mon04/28/23 at 1750, Administer gel. Recheck blood glucose after 15 minutes. Notify provider. 37.5 gram tube = 15 grams glucose = 1 each Glucose (Glutose 15) 40 % gel 30 g of glucose 30 g of glucose, Oral, PRN Hypoglycemia (low sugar), Other, For blood glucose below 54 mg/dL AND patient alert WITH difficulty chewing/swallowing, Starting on Mon04/26/23 at 0149, Until Mon04/28/23 at 1750, Administer gel. Recheck blood glucose after 15 minutes. Notify provider. 37.5 gram tube = 15 grams glucose = 1 each glucose chew tab 16 g 16 g, Oral, PRN Hypoglycemia, Other, For blood glucose 54 - 69 mg/dL or 70 - 100 mg/dL with symptoms and patient alert without difficulty chewing/swallowing., Starting on Mon04/26/23 at 0149, Until Mon04/28/23 at 1750 sodium chloride 0.9 % flush/inj 3 mL 3 mL, IV Push, PRN Other, Line Patency, Starting on Mon04/26/23 at 0148, Until Mon04/28/23 at 1750, Do not flush if lock, PICC, or central line not in place, IV infusing or unable to flush Linked Groups Order Group 1: Octreotide Acetate (Sandostatin) 50 mcg in NSS 50 mL ivpb (COMPLETED)Jump to med 50 mcg, IV Piggyback, ONCE, 1 dose, On Mon04/26/23 at 0230, Administer over 30 Minutes Followed by Octreotide Acetate (SandoSTATIN) 500 mcg in NSS 500 mL INFUSION (CANCELED)Jump to med Intravenous, 50 mcg/hr (50 mL/hr), Please select this medication from the infusion pump library, CONTINUOUS, Starting on Mon04/26/23 at 0300, Until Mon04/26/23 at 1305 Group 2: Pantoprazole (Protonix) 80 mg in NSS 100 mL ivpb (COMPLETED)Jump to med 80 mg, IV Piggyback, ONCE, 1 dose, On Mon04/26/23 at 0230, Administer over 15 Minutes Followed by Pantoprazole (Protonix) 80 mg in NSS 500 mL INFUSION (CANCELED)Jump to med Intravenous, at 50 mL/hr, CONTINUOUS, Starting on Mon04/26/23 at 0245, Until Mon04/26/23 at 1305 documented in this encounter Advance Directives Latest [...] Advance Directives occurred with: Patient Care Teams Telemarketing Sales Representative Relationship Specialty Start Date End Date Alexy Al MD [address] [facility] [place] [address] PCP - General 07/29/08 documented as of this encounter
--- OUTSIDE RECORDS SUMMARY | 2023-05-12 22:45 | External Medical Summary ---
Author Name Unknown Address Unknown Organization K01:[place] [place] [address] [facility] [address] Laboratory Report Ordering Provider Test Date Status CLARK DOMINGUEZ 05/10/2023 12:11:04 Final Observation Date Value Abnormality Reference (Units ) Status TSH 05/10/2023 12:11:04 1.13 0.27-4.20 (uIU/mL) Final Performing Location [facility] [place] [address] [facility] [address]
--- OUTSIDE RECORDS SUMMARY | 2023-05-12 22:45 | External Medical Summary ---
Author Name Unknown Address Unknown Organization K01:[place] [place] [address] [place] [facility] [place] [address] Laboratory Report Ordering Provider Test Date Status CORA MCNAIR 04/28/2023 08:13:00 Final Observation Date Value Abnormality Reference (Units ) Status BUN 04/28/2023 08:13:00 11 6-20 (mg/dL) Final Creatinine 04/28/2023 08:13:00 0.8 0.5-1.0 (mg/dL) Final Glomerular filtration rate/1.73 sq M.predicted [Volume Rate/Area] in Serum, Plasma or Blood by Creatinine-based formula (CKD-EPI) 04/28/2023 08:13:00 76 >=60 (mL/min) Final eGFR is calculated based on the CKD-EPI 2020 equation SODIUM 04/28/2023 08:13:00 139 135-146 (m mol/L) Final Potassium 04/28/2023 08:13:00 3.9 3.5-5.1 (m mol/L) Final Cl 04/28/2023 08:13:00 108 Above high normal 98 -107 (mmol/L) Final CO2 04/28/2023 08:13:00 23 22-32 (mmo l/L) Final Anion gap 04/28/2023 08:13:00 8 7-15 (mmol /L) Final Glucose 04/28/2023 08:13:00 139 Above high normal 70 -120 (mg/dL) Final Albumin 04/28/2023 08:13:00 2.9 Below low normal 3.8 -5.0 (g/dL) Final AST (Aspartate aminotransferase) 04/28/2023 08:13:00 68 Above high normal 10-35 (U/L) Final Alk Phos 04/28/2023 08:13:00 55 35-130 (U/ L) Final Bilirubin, Total 04/28/2023 08:13:00 1.4 Above high no rmal <=1.2 (mg/dL) Final Calcium 04/28/2023 08:13:00 7.7 Below low normal 8.4 -10.2 (mg/dL) Final Protein 04/28/2023 08:13:00 5.8 Below low normal 6.0 -8.3 (g/dL) Final ALT (Alanine aminotransferase) 04/28/2023 08:13:00 42 Above high normal 10-35 (U/L) Final Performing Location [facility] [place] [address] [facility] [address]
--- OUTSIDE RECORDS SUMMARY | 2023-05-12 22:45 | External Medical Summary ---
Author Name Unknown Address Unknown Organization : Laboratory Report Ordering Provider Test Date Status CORA MCNAIR 04/28/2023 10:58:25 Final Observation Date Value Abnormality Reference (Units ) Status Glucose Point of Care 04/28/2023 10:58:25 270 Above high normal 70-120 (mg/dL) Final Performing Location
--- OUTSIDE RECORDS SUMMARY | 2023-05-12 22:45 | External Medical Summary ---
Author Name Unknown Address Unknown Organization K01:LAB[facility]ATORY [facility] [place] - [facility] [address] [facility] [address] [facility] [address] Laboratory Report Ordering Provider Test Date Status CLARK DOMINGUEZ 05/10/2023 12:11:04 Final Observation Date Value Abnormality Reference (Units ) Status Calcium.ionized [Moles/volume] in Serum or Plasma by Ion-selective membrane electrode (ISE) 05/10/2023 12:11:04 1.19 1.13-1.32 (mmol/L) Final This test was developed and its performance characteristics dtermined by [employer]. It has not been cleared or approved by the US Food and Drug Administration Performing Location LABORATORY [place] [address] [facility] [address]
--- OUTSIDE RECORDS SUMMARY | 2023-05-12 22:45 | External Medical Summary ---
Author Name Unknown Address Unknown Organization : Laboratory Report Ordering Provider Test Date Status CORA MCNAIR 04/27/2023 21:43:19 Final Observation Date Value Abnormality Reference (Units ) Status Glucose Point of Care 04/27/2023 21:43:19 143 Above high normal 70-120 (mg/dL) Final Performing Location
--- OUTSIDE RECORDS SUMMARY | 2023-05-12 22:45 | External Medical Summary | Summary of Care ---
Author Name Unknown Organization [facility] Address [address] [facility] [place] [address] Phone [phone] Care Team Providers Care Press And Blow Machine Tender Name Role Phone Alexy Al MD Primary Care Provider [phone] Reason for Visit * Reason Comments [facility]: Enrollment Encounter Details Date Type Department Care Team (Late st Contact Info) Description 05/04/2023 12:30 PM EST Home Visit [facility], [facility] [address] [place] [address] Cheryl Ruiz, RN [address] [place] [address] Allergies No known active allergiesdocumented as of this encounter (statuses as of 05/04/2023) Medications Medication Sig Dispensed Refills Start Date [...] 3 08/31/19 24 Active OneTouch Delica Plus [id number] USE TO TEST BLOOD SUGAR TWICE DAILY [...] evening meals. 60 Tablet 1 3 Active Magnesium 400 MG Oral Capsule Take 1 Capsule by mouth in the morning. 90 Capsule 1 3 05/04/20 23 Discontinu ed(Medicat ion List Clean Up) documented as of this encounter (statuses as of 05/04/2023) Active Problems Problem Noted Date Diagnosed Date [...] repeat CT. Coronary artery disease invo lving [place] heart without angina pectoris 05/08/2022 Last Assessment [...] as of this encounter (statuses as of 05/04/2023) Resolved Problems Problem Noted Date Diagnosed Date [...] as of this encounter (statuses as of 05/04/2023) Immunizations Name Administration Dates Next Due COVID-19 [...] Sign Reading Time Taken Comments Blood Pressure 120/60 05/04/2023 12:32 PM EST Pulse 80 05/04/2023 12:32 PM EST Temperature 37 C (98.6 F) 05/04/2023 12:32 PM EST Respiratory Rate 18 05/04/2023 12:32 PM EST Oxygen Saturation 99% 05/04/2023 12:32 PM EST Inhaled Oxygen Concentration - - Weight 69.5 kg (153 lb 4.8 oz) 05/04/2023 12:32 PM EST Height - - Body Mass Index 27.16 04/26/2023 1:17 AM EST documented in this [...] as of this encounter Progress Notes * Cheryl Ruiz RN - 05/04/2023 12:16 PM EST [facility] Employment Services DirectorBoat Worker/JUAN Visit Date: 05/04/2023 Time: 12:16 PM Name: Martine Russell : 1940 Current Concerns: Pt seen for enrollment to [facility] and JUAN #1 Admitted to [facility] 04/24 and then transferred to [facility] until 04/28 Dx: Acute GI bleed, acute on chronic iron deficiency anemia, ischemic colitis, cirrhosis, portal hypertensive gastropathy and varices, CHF She had endoscopy and colonoscopy done Pt reports she has been feeling well since home Does have some fatigue and a little weakness still but improving Using walker to get around - does not feel she needs PT Blood sugar today was 88 - she states they are down since being in hospital Wt was 153.3 lbs today Her baseline wt is around 153 lbs She reports her bowels have been moving regularly since home with no s/s of bleeding noted Denies any pain or abdominal issues Physical Exam: BP 120/60 | Pulse 80 | Temp 37 C (98.6 F) | Resp 18 | Wt 69.5 kg (153 lb 4.8 oz) | SpO2 99% | BMI 27.16 kg/m | BSA 1.76 m Pain 0 Physical Exam Constitutional: General: She is not in acute distress. Cardiovascular: Rate and Rhythm: Normal rate and regular rhythm. Pulses: Normal pulses. Heart sounds: Normal heart sounds. Pulmonary: Effort: Pulmonary effort is normal. Breath sounds: Normal breath sounds. Abdominal: General: Bowel sounds are normal. Palpations: Abdomen is soft. Musculoskeletal: Right lower leg: Edema (+2) present. Left lower leg: Edema (+1) present. Skin: General: Skin is warm and dry. Neurological: Mental Status: She is alert and oriented to person, place, and time. Problems/Symptoms: Review of Systems Constitutional: Positive for fatigue. HENT: Negative. Eyes: Negative. Respiratory: Positive for shortness of breath (BYRNES - at baselin). Cardiovascular: Positive for leg swelling. Gastrointestinal: Negative. Genitourinary: Negative. Skin: Negative. Neurological: Positive for weakness (general, mild). Psychiatric/Behavioral: Negative. Medication Reconciliation: (See medication list) Does patient take medications as ordered: Yes Patient Well Being: PHQ2/9: No questionnaires available. Pt lives in ones story home with . He is her main cg Dtr also involved Has a cat that is mostly outside No recent falls Ambulates with roller walker [facility]10 Completed this Visit: Yes. [facility]: Reason Completed: Enrollment [facility] ([facility]) Fall Risk Assessment Tool Age 65+: Yes (05/04/231299) Diagnosis (3 or more co-existing): Yes (05/04/231299) Prior history of falls within 3 months: No (05/04/231299) Incontinence: No (05/04/231299) Visual impairment: No (05/04/231299) Impaired functional mobility: Yes (05/04/231299) Environmental hazards: No (05/04/231299) Poly Pharmacy (4 or more prescriptions - any type): Yes (05/04/231299) Pain affecting level of function: No (05/04/231299) Cognitive impairment: No (05/04/231299) Score - a score of 4 or more is considered at risk for fallin (05/04/231299) [facility] Interventions: Fall education provided, reviewed/provided Fall brochure Advanced Care Planning: No documentation, ACP in progress. Patient's Goals of Care: Stay out of the hospital Live at least 5 more years Reinforcement/Education: Reviewed HF symptom monitoring: -Weigh self daily in am, post-void and record -Do not add salt to food, avoid foods high in sodium -Limit fluids to 2 liters per day -Report the following: ->2 lb weight gain in one day or 5 lbs in a week to PCP -increased edema in feet, abdomen or hands -increased SOB and cough, especially if at night -increased fatigue or vertigo DIABETES: -Blood sugar testing schedule: Twice a day, once in the morning and again 2 hours after a meal. -Blood sugar goals: Less than 120, fasting and less than 180, 2 hours after a meal -Record and take to PCP appointments -Notify your doctor if your blood sugar is consistently above goal -Hypoglycemia (low blood sugar) action plan: If blood sugar is less than 70 or having symptoms of low blood sugar eat or drink a snack of 15gm of carbohydrate (2-3 glucose tablets, glass juice, 1Cnon-fat milk, etc) wait 15 min if blood sugar still low repeat snack, wait 15 minutes if still low call health care provider. Ask provider if a medication adjustment is needed if experiencing low blood sugars frequently, twice a week or more. -Hyperglycemia (high blood sugar) action Plan: Take medications as directed, test blood sugars frequently, if above goal, contact your health care provider. Ask for changes to medication if blood sugars continue to run above goal. -Eat three well balanced meals a day 5 servings fruit/vegetable per day Educated on home safety: Create a fall proof home Clear floors of clutter, loose wires, throw rugs, and cords. Make sure halls, stairways, and entrances are well lit. Install a nightlight in your bedroom, hallway and bathroom. Install grab bars or handrails in the bathroom and on stairs. Use a non-skid tub/shower mat. Avoid climbing on a chair; instead use a step stool with a high handrail. Keep sidewalks and steps in good repair Keep steps and sidewalks free of snow and ice. Using aids to support and prevent falls If you have poor balance or have fallen in the past, consider additional support such as a cane or walker. Use a cane with good support and that is the proper length for you. Use a walker if a cane doesnt provide enough support. Avoid medications that increase the risk of falling by causing dizziness, change in sensation or slowed reflexes. Certain medicines may cause falls - blood pressure pills, heart medicines, water pills, or sleepingpills. Be sure to understand each medicine that you are taking and any side effects that may occur. Improve your balance and flexibility with muscle strengthening exercises. Ask your health care provider for some exercises that will be right for you. Reinforced safety education and fall prevention. and Reinforced medication regimen. Timing., Dosing., and Purspose. Treatment/Plan: Continue meds as prescribed/reviewed Continue to check blood sugar daily and as needed Daily wts via [facility] Elevate LE as much as possible APAP prn pain Keep all appts as scheduled Home Interventions Provided: Home Intervention: Other; evaluation Reinforced current Plan of Care, including self-management and medication regimen Patient's 'Red Flags': Increased weakness/fatigue Bright red blood or black tarry stools Increased SOB Patient Needs to Remember: Call [facility] at with any new or worsening health concerns or problems, red flag symptoms. Referrals Needed: Other none Follow Up: Is there cellular connectivity/connectivity in the home? Yes Does the patient have internet in the home? Yes Patient encouraged to call the intake phone number for all urgent but not emergent issues. Is the patient new to [facility] within the last 30 days? Yes, Is this a Transitions of Care visit? Yes, this is the 1st visit. Provider is in agreement with Plan of Care: Yes Scheduled to follow up with patient in 2 weeks with provider, 2 weeks after with RNCM. Cheryl Ruiz RN 05/04/2023 12:16 PM documented in this encounter Plan of Treatment Upcoming Encounters Date Type Department Care Team (Late st Contact Info) Description 05/10/2023 11:20 AM EST Office Visit [facility] [address] [place] [address] Alexy Al MD [address] [place] [address] 05/18/2023 1:00 PM EST Home Visit [facility], [facility] [address] [place] [address] Crescencio Santillan PA-C [address] [place] [address] 06/05/2023 12:30 PM EST Home Visit [facility], [facility] [address] [place] [address] Cheryl Ruiz RN [address] [place] [address] 08/17/2023 12:40 PM EDT Office Visit Hepatology, [facility] [address] [place] [address] Dayan Sanford DO [address] [place] [address] 10/06/2023 10:40 AM EDT [facility] [address] [facility] [phone] Alexy Al MD [address] [place] [address] Health Maintenance Due Date Last Done Comments [...] D LEVEL ONCE IN A LIFETIME-USE SMARTSET# [id number] Completed 01/27/2021, 08/21/2017, 03/08/2017, Additional history exists [...] this encounter Medical Devices Implanted Type Area Assistant Women'S Rowing Coach Device Identifier Shelf Expiration Date Model / Serial / Lot Stent Graft [id number] - [id number] - [id number] Implanted:Qty: 1 on 05/09/2022 by Cedrick Phillips MD at [facility] [place] : MARTIN [id number] 02/11/2025 8545 3 / [id number] / [id number] documented as of this encounter Advance Directives [...] Advance Directives occurred with: Patient Care Teams Press And Blow Machine Tender Relationship Specialty Start Date End Date Alexy Al MD [address] [place] [address] PCP - General 07/29/08 documented as of this encounter
--- OUTSIDE RECORDS SUMMARY | 2023-05-12 22:45 | External Medical Summary ---
Author Name Unknown Address Unknown Organization K01:[facility]ORY [facility] [place] - [facility] [address] [facility] [place] [address] Laboratory Report Ordering Provider Test Date Status CORA MCNAIR 04/28/2023 08:13:00 Final Observation Date Value Abnormality Reference (Units ) Status WBC, Total 04/28/2023 08:13:00 5.18 4.00-10.80 (K/uL) Final RBC 04/28/2023 08:13:00 3.96 3.85-5.15 (M/uL) Final Hemoglobin 04/28/2023 08:13:00 11.1 Below low normal 12.0-15.3 (g/dL) Final HCT 04/28/2023 08:13:00 35.5 Below low normal 36.0-45.2 (%) Final MCV 04/28/2023 08:13:00 89.6 81.5-97.5 (fL) Final MCH 04/28/2023 08:13:00 28.0 27.0-34.0 (pg) Final MCHC 04/28/2023 08:13:00 31.3 32.0-36.0 (g/dL) Final RDW 04/28/2023 08:13:00 20.3 11.5-15.5 (%) Final Platelets 04/28/2023 08:13:00 118 Below low normal 140-400 (K/uL) Final MPV 04/28/2023 08:13:00 11.4 6.6-11.1 (fL) Final Nucleated erythrocytes/100 leukocytes [Ratio] in Blood by Automated count 04/28/2023 08:13:00 0 <=0 (/100 WBCs) Final Performing Location [facility] [place] - [address] [place] [address]
--- OUTSIDE RECORDS SUMMARY | 2023-05-12 22:45 | External Medical Summary | Summary of Care ---
Author Name Unknown Organization [facility] Address [address] [place] [address] Phone [phone] Care Team Providers Care Manager Completions Name Role Phone Angelica Rodas MD Primary Care Provider +1- [phone] Reason for Visit * Reason Comments Medication Refill Encounter Details Date Type Department Care Team (Late st Contact Info) Description 04/28/2023 Refill [facility] [address] [place] [address] Angelica Rodas MD [address] [place] [address] HTN, goal below 140/90 Allergies No known active allergiesdocumented as of this encounter (statuses as of 04/28/2023) Medications Medication Sig Dispensed Refills Start Date End Date Status Losartan Potassium 25 MG Oral Tablet (Cozaar)Indicatio ns:HTN, goal below 140/90 TAKE ONE TABLET BY MOUTH IN THE MORNING 100 Tablet 3 3 04/27/20 24 Active Carvedilol 3.125 MG Oral Tablet (Coreg) Take 1 Tablet by mouth 2 times a day with morning and evening meals. 60 Tablet 1 3 Active CENTRUM SILVER PO TABS 1 TABLET DAILY 1 Tab 1 0 Suspended OSTEO BI-FLEX JOINT SHIELD PO TABS daily OTC 1 Tab 1 0 Suspended B Complex 100 TR Oral Tablet Extended Release Take by mouth . 0 Candis pended Biotin 1 MG Oral Capsule Take 1 Capsule by mouth in the morning and 1 Capsule at noon and 1 Capsule before bedtime. Taking once a daily. 0 Suspended Acetaminophen 325 MG Oral Tablet (Tylenol) Take 2 Tablets by mouth as needed (for mild to moderate reaction (infusion reaction protocol)). 2 Tablet 3 Suspended Additional Information Sodium Chloride 0.9 % Intravenous Solution To be administered in the event of anaphylactic reaction per [facility] IV iron anaphylaxis protocol 1000 mL 3 Suspended Additional Information Patient not taking.Reported on 09/22/2022 Dexamethasone Sodium Phosphate 4 MG/ML Injection Solution (Decadron) Inject 8 mg intravenously as needed for Anaphylaxis (severe allergic reaction) (To be administered in the event of anaphylactic reaction per [facility] IV iron anaphylaxis protocol). 2 mL 3 Suspended Additional Information Patient not taking.Reported on 08/11/2022 EPINEPHrine (Anaphylaxis) 1 MG/ML Injection Solution Inject 0.3 mL into a large muscle as needed for Anaphylaxis (severe allergic reaction) (To be administered in the event of anaphylactic reaction per [facility] IV iron anaphylaxis protocol). May repeat every 15 min as needed per infusion reaction protocol 2 mL 3 Suspended Additional Information Melatonin 10 MG Oral Tablet Take 1 Tablet by mouth at bedtime. 0 Suspended Vitron-C 65-125 MG Oral Tablet (Iron-Vitamin C 65-125 mg per tab) Take 1 Tablet by mouth daily with dinner. 90 Tablet 1 3 Suspended Additional Information OneTouch Delica Lancets 33G Test blood sugar twice daily E11.9 E11.29 400 Each 1 3 Suspended Additional Information Zoster Vac Recomb Adjuvanted 50 MCG/0.5ML Intramuscular Suspension Reconstituted (Shingrix)Indicat ions:Need for vaccination for zoster Inject 0.5 mL into a large muscle now and repeat dose in 60 to 180 days 1 Each 1 3 Suspended Additional Information Patient not taking.Reported on 03/28/2023 Magnesium 400 MG Oral Capsule Take 1 Capsule by mouth in the morning. 90 Capsule 1 3 Suspended Additional Information Magnesium Oxide -Mg Supplement 400 MG Oral Capsule TAKE ONE CAPSULE BY MOUTH EVERY MORNING 90 Capsule 1 3 10/11/19 24 Suspended Additional Information Insulin Syringe-Needle U-100 30G X 5/16" 1 ML USE TO INJECT INSULIN TWICE DAILY 200 Each 1 3 08/31/19 24 Suspended Additional Information Glucose Blood In Vitro Strip USE TO TEST BLOOD SUGAR TWICE DAILY 200 Strip 1 3 08/31/19 24 Suspended Additional Information OneTouch Delica Plus [id number] USE TO TEST BLOOD SUGAR TWICE DAILY 400 Each 1 3 08/31/19 24 Suspended Additional Information NovoLIN 70/30 (70-30) 100 UNIT/ML Subcutaneous SuspensionIndicat ions:Type 2 diabetes mellitus with hemoglobin A1c goal of less than 8.0% (HCC) INJECT 25 UNITS SUBCUTANEOUSLY BEFORE BREAKFAST AND INJECT 10 UNITS BEFORE SUPPER. 40 mL 1 3 08/31/19 24 Suspended Additional Information Pantoprazole Sodium 40 MG Oral Tablet Delayed Release (Protonix) TAKE ONE TABLET BY MOUTH IN THE MORNING 100 Tablet 1 3 08/31/19 24 Suspended Additional Information Losartan Potassium 25 MG Oral Tablet (Cozaar)Indicatio ns:HTN, goal below 140/90 TAKE ONE TABLET BY MOUTH IN THE MORNING 100 Tablet 1 3 04/28/20 23 Discontinued (Refill) metFORMIN HCl 1000 MG Oral Tablet (Glucophage)Indic ations:Type 2 diabetes mellitus with hemoglobin A1c goal of less than 7.0% (HCC) TAKE ONE TABLET BY MOUTH IN THE MORNING AND ONE TABLET BEFORE BEDTIME WITH FOOD. 200 Tablet 1 3 08/31/19 24 Suspended Additional Information Clopidogrel Bisulfate 75 MG Oral Tablet (pLAVix) Take 1 Tablet by mouth in the morning. 100 Tablet 3 3 Suspended Additional Information Alendronate Sodium 70 MG Oral Tablet (Fosamax) TAKE ONE TABLET BY MOUTH ONCE A WEEK WITH 8OZ OF WATER 30 MINUTES BEFORE THE FIRST MEAL OF THE DAY. REMAIN UPRIGHT FOR 30 MINUTES AFTER TAKING TABLET 12 Tablet 1 3 02/16/20 24 Suspended Additional Information Atorvastatin Calcium 40 MG Oral Tablet (Lipitor)Indicati ons:Dyslipidemia, goal LDL below 100 TAKE ONE TABLET BY MOUTH EVERY AFTERNOON 100 Tablet 3 3 03/05/20 24 Suspended Additional Information 3V Transaction ServicesTouch Verio w/Device Kit Use up to 4 times a day E11.9 E11.29 1 Kit 0 3 Suspended Additional Information Cinacalcet HCl 30 MG Oral Tablet (Sensipar)Indicat ions:Hyperparathy roidism, primary (HCC) TAKE ONE TABLET BY MOUTH IN THE MORNING. 100 Tablet 1 3 03/22/20 24 Suspended Additional Information Furosemide 40 MG Oral Tablet (Lasix)Indication s:Chronic heart failure with preserved ejection fraction (HCC) Take 1.5 Tablets by mouth in the morning. 135 Tablet 1 3 Suspended Additional Information documented as of this encounter (statuses as [...] repeat CT. Coronary artery disease invo lving [place] heart without angina pectoris 05/08/2022 Last Assessment [...] Problem Noted Date Diagnosed Date Resolved Date GI bleed 04/26/2023 04/28/2023 Mesenteric ischemia 08/03/2022 04/28/20 23 Aortic atherosclerosis [...] mRNA, LNP-s, No Pre serve, 2-Dose Series ([employer]) 03/10/2021,08/27/2020,08/06/2020 Pneumococcal Conjugate Vacc, 13 Valent (Prevnar) [...] Telephone Encounter - Angelica Rodas MD - 04/28/2023 12:39 PM ESTSigned Prescriptions: Disp Refills Losartan Potassium 25 MG Oral Tablet (Coza*100 Ta*3 Sig: TAKE ONE TABLET BY MOUTH IN THE MORNINGAuthorizing Provider: ANGELICA RODAS * Telephone Encounter - Narda Willis [facility] - 04/28/2023 8:35 AM EST Pending Prescriptions: Disp Refills Losartan Potassium 25 MG Oral Tablet (Coza*100 Ta*1 Sig: TAKE ONE TABLET BY MOUTH IN THE MORNING * Telephone Encounter - Narda Willis [facility] - 04/28/2023 8:35 AM EST Unable to authorize medication refills for pended medication(s) at this time. Part of the protocol criteria used for refill authorization was not satisfied. Patient's last potassium levels were low. Please approve if appropriate. Potassium Results: Lab Results Component Value Date/Time POTASSIUM - [facility] 3.4 (L) 04/27/2023 06:44 AM POTASSIUM - [facility] 3.8 04/26/2023 07:31 AM POTASSIUM - [facility] 4.0 04/26/2023 01:30 AM POTASSIUM - [facility] 4.1 03/05/2020 02:53 PM POTASSIUM - [facility] 4.6 10/29/2019 01:40 PM POTASSIUM - [facility] 4.7 03/15/2019 10:24 AM POTASSIUM POCT - [facility] 4.4 05/09/2022 09:10 AM Pending Prescriptions: Disp Refills Losartan Potassium 25 MG Oral Tablet (Coza*100 Ta*1 Sig: TAKE ONE TABLET BY MOUTH IN THE MORNING Last Visit: 03/28/2023 (in office), 10/28/2019 (telemedicine) Next Visit: 10/06/2023 If no future appointments scheduled, and last appointment is greater than a year ago, please schedule patient for a follow-up appointment Last date the medication was ordered: Pharmacy: [facility] Is this request for a controlled substance? No Urine Drug Screen:No results found. However, due to the size of the patient record, not all encounters were searched. Please check Results Review for a complete set of results. Patient Phone Numbers Labs: Lab Results Component Value Date/Time CREAT 0.8 04/27/2023 06:44 AM CREAT 0.6 03/05/2020 02:53 PM POTASSIUM 3.4 (L) 04/27/2023 06:44 AM POTASSIUM 4.4 05/09/2022 09:10 AM POTASSIUM 4.1 03/05/2020 02:53 PM TSH 1.79 04/14/2017 12:34 PM LDLCALC 58 03/07/2022 10:09 AM LDLCALC 52 10/22/2019 09:46 AM LDLDIRECT 35 03/28/2023 02:26 PM LDLDIRECT NOT APPLICABLE 10/22/2019 09:46 AM LDLDIRECT 94 01/03/2014 10:10 AM ALT 38 (H) 04/27/2023 06:44 AM ALT 39 (H) 03/05/2020 02:53 PM HGBA1C 7.6 (H) 03/28/2023 02:26 PM HGBA1C 8.1 (H) 03/05/2020 02:53 PM Narda Whipple PharmD Clinical Pharmacist [facility] ([facility]) (formerly Telepharmacy) [phone] 04/28/2023,8:35 AM documented in this encounter Plan of Treatment Upcoming Encounters Date Type Department Care Team (Late st Contact Info) Description 05/10/2023 11:20 AM EST [facility] [address] [facility] [address] Angel[facility] [address] [facility] [address] 10/06/2023 10:40 AM EDT Office Visit [facility] [address] [place] [facility] [place] [address] Angelica Rodas MD [address] [place] [facility] [place] [address] Health Maintenance Due Date Last Done Comments [...] D LEVEL ONCE IN A LIFETIME-USE SMARTSET# [id number] Completed 01/27/2021, 08/21/2017, 03/08/2017, Additional history exists [...] this encounter Medical Devices Implanted Type Area Director [employer] Device Identifier Shelf Expiration Date Model / Serial / Lot Stent Graft [id number] - [id number] - [id number] Implanted:Qty: 1 on 05/09/2022 by Cedrick Phillips MD at OR [facility] GET[employer] : MARTIN [id number] 02/11/2025 [id number] 3 / [id number] / [id number] documented as of this encounter Visit Diagnoses Diagnosis HTN, goal below 140/90 Unspecified essential hypertension documented in this encounter Advance Directives Latest [...] Advance Directives occurred with: Patient Care Teams Manager Completions Relationship Specialty Start Date End Date Angelica Rodas MD [address] [place] [facility] [place] [address] PCP - General 07/29/08 documented as of this encounter
--- OUTSIDE RECORDS SUMMARY | 2023-05-12 22:45 | External Medical Summary | Summary of Care ---
Author Name Unknown Organization [facility] Address [address] [facility] [place] [address] Phone [phone] Care Team Providers Care Line Rider Name Role Phone Alexy Al MD Primary Care Provider +1- [phone] Reason for Visit * Reason Onset Date Comments [facility]: Maintenance 04/28/2023 Encounter Details Date Type Department Care Team (Late st Contact Info) Description 04/28/2023 Telephone [facility] [address] [facility] [place] [address] [facility], Nurse [facility] [address] [facility] [place] [address] [facility]: Maintenance Allergies No known active allergiesdocumented as of [...] 1 08/31/2022 4 Active OneTouch Delica Plus [id number] USE TO TEST BLOOD SUGAR TWICE DAILY [...] repeat CT. Coronary artery disease invo lving [place] heart without angina pectoris 05/08/2022 Last Assessment [...] the money to buy more. Never true 05/15/20 23 Within the past 12 months, t [...] encounter Miscellaneous Notes * Telephone Encounter - Rika Doty LPN - 04/28/2023 4:07 PM EST Patient was discharged from [facility] to home Message sent to enrollment team to schedule JUAN documented in this encounter Plan of Treatment Upcoming Encounters Date Type Department Care Team (Late st Contact Info) Description 05/04/2023 12:30 PM EST Home Visit [facility] [place], [facility] [address] [place] [address] Cheryl Ruiz RN [address] [place] [address] 05/10/2023 11:20 AM EST Office Visit [facility] [address] [facility] [phone] Alexy Al MD [address] [place] [address] 05/18/2023 1:00 PM EST Home Visit [facility] at [facility] [address] [place] [address] Crescencio Santillan PA-C [address] [place] [address] 08/17/2023 12:40 PM EDT Office Visit Hepatology, [facility] [address] [facility] [place] [address] Dayan Sanford DO [address] [place], [place] [address] 10/06/2023 10:40 AM EDT Office Visit [facility] [address] [facility] [phone] Alexy Al MD [address] [place] [address] Health Maintenance Due Date Last Done Comments [...] D LEVEL ONCE IN A LIFETIME-USE SMARTSET# [id number] Completed 01/27/2021, 08/21/2017, 03/08/2017, Additional history exists Zoster Vaccines Completed 12/06/2022, 0 09/2022, 06/04/2015 Influenza Vaccine (FLU shot) Completed , 03/14/2022, 02/01/2021, Additional history exists GARDASIL-HPV IMMUNIZATION SERIES Aged Out No longer eligible based on patient's age to complete this topic MENINGOCOCCAL (MENACTRA/MENVEO) Aged Out No longer eligible based on patient's age to complete this topic documented as of this encounter Medical Devices Implanted Type Area Supervisor Fish [employer] Device Identifier Shelf Expiration Date Model / Serial / Lot Stent Graft [id number] - [id number] - [id number] Implanted:Qty: 1 on 05/09/2022 by Cedrick Phillips MD at OR [facility] [place] : MARTIN [id number] 02/11/2025 [id number] 3 / [id number] / [id number] documented as of this encounter Advance Directives [...] Advance Directives occurred with: Patient Care Teams Line Rider Relationship Specialty Start Date End Date Alexy Al MD [address] [place] [address] PCP - General 07/29/08 documented as of this encounter
--- OUTSIDE RECORDS SUMMARY | 2023-05-12 22:46 | External Medical Summary ---
Author Name Unknown Address Unknown Organization K01:[facility] - [address] [place] [address] Laboratory Report Ordering Provider Test Date Status ISHMAEL SOTO 04/26/2023 01:30:00 Final Observation Date Value Abnormality Reference (Units ) Status Albumin 04/26/2023 01:30:00 2.8 Below low normal 3.8-5.0 (g/dL) Final AST (Aspartate aminotransferase) 04/26/2023 01:30:00 57 Above high normal 10-35 (U/L) Final Alk Phos 04/26/2023 01:30:00 50 35-130 (U/L) Final ALT (Alanine aminotransferase) 04/26/2023 01:30:00 38 Above high normal 10-35 (U/L) Final Bilirubin, Total 04/26/2023 01:30:00 1.4 Above high normal <=1.2 (mg/dL) Final Bilirubin, Direct 04/26/2023 01:30:00 0.7 Above high normal 0.0-0.3 (mg/dL) Final Protein 04/26/2023 01:30:00 5.4 Below low normal 6.0-8.3 (g/dL) Final Performing Location [facility] - [address] [place] [address]
--- OUTSIDE RECORDS SUMMARY | 2023-05-12 22:46 | External Medical Summary | Summary of Care ---
Author Name Unknown Organization [facility] Address [address] [facility] [place] [address] Phone [phone] Care Team Providers Care Chief Cloth Finishing Range Operator Name Role Phone Alexy Al MD Primary Care Provider +1- [phone] Encounter Details Date Type Department Care Team (Late st Contact Info) Description 04/24/2023 Result Scan Unspecified Department <No scans attached> Allergies No known active allergiesdocumented as of this encounter (statuses as of 04/26/2023) Medications Medication Sig Dispensed Refills Start Date [...] (infusion reaction protocol)). 2 Tablet 11 3 Suspended Additional Information Sodium Chloride 0.9 [...] in the event of anaphylactic reaction per [facility] IV iron anaphylaxis protocol). May repeat [...] EVERY MORNING 90 Capsule 3 10/11/19 24 Suspended Additional Information Insulin Syringe-Needle U-100 30G X 5/16" 1 ML USE TO INJECT INSULIN TWICE DAILY 200 Each 3 08/31/19 24 Suspended Additional Information Glucose Blood In Vitro Strip USE TO TEST BLOOD SUGAR TWICE DAILY 200 Strip 3 08/31/19 24 Suspended Additional Information OneTouch Delica Plus [id number] USE TO TEST BLOOD SUGAR TWICE DAILY 400 Each 3 08/31/19 24 Suspended Additional Information NovoLIN 70/30 (70-30) 100 UNIT/ML Subcutaneous SuspensionIndicati ons:Type 2 diabetes mellitus with hemoglobin A1c goal of less than 8.0% (HCC) INJECT 25 UNITS SUBCUTANEOUSLY BEFORE BREAKFAST AND INJECT 10 UNITS BEFORE SUPPER. 40 mL 3 08/31/19 24 Suspended Additional Information Pantoprazole Sodium 40 MG Oral Tablet Delayed Release (Protonix) TAKE ONE TABLET BY MOUTH IN THE MORNING 100 Tablet 1 3 08/31/19 24 Suspended Additional Information Losartan Potassium 25 MG Oral Tablet (Cozaar)Indication s:HTN, goal below 140/90 TAKE ONE TABLET BY MOUTH IN THE MORNING 100 Tablet 1 3 08/31/19 24 Suspended Additional Information metFORMIN HCl 1000 MG Oral Tablet (Glucophage)Indica [...] Information Atorvastatin Calcium 40 MG Oral Tablet (Lipitor)Indicatio ns:Dyslipidemia, goal LDL below 100 TAKE ONE TABLET BY MOUTH EVERY AFTERNOON 100 Tablet 3 3 03/05/20 24 Suspended Additional Information Pollen - Social Platform Verio w/Device Kit Use up to 4 times a day E11.9 E11.29 1 Kit 0 3 Suspended Additional Information Cinacalcet HCl 30 MG Oral Tablet (Sensipar)Indicati ons:Hyperparathyro idism, primary (HCC) TAKE ONE TABLET BY MOUTH IN THE MORNING. 100 Tablet 1 3 03/22/20 24 Suspended Additional Information Metoprolol Tartrate 25 MG Oral Tablet (Lopressor) TAKE ONE-HALF TABLET BY MOUTH TWICE DAILY 100 Tablet 1 3 03/24/20 24 Suspended Additional Information Furosemide 40 MG Oral Tablet (Lasix)Indications :Chronic heart failure with preserved ejection fraction (HCC) Take 1.5 Tablets by mouth in the morning. 135 Tablet 1 3 Suspended Additional Information documented as of this encounter (statuses as of 04/26/2023) Active Problems Problem Noted Date Diagnosed Date GI bleed 04/26/2023 Hypertensive HF (heart failure) 03/28/2023 Superior [...] Coronary artery disease invo lving [place] heart without angina pectoris 05/08/2022 Last Assessment [...] as of this encounter (statuses as of 04/26/2023) Resolved Problems Problem Noted Date Diagnosed Date [...] as of this encounter (statuses as of 04/26/2023) Immunizations Name Administration Dates Next Due COVID-19 [...] Description 10/06/2023 10:40 AM EDT Office Visit [facility] [address] [place] [phone] Alexy Al MD [address] [place], [place] [phone] Health Maintenance Due Date Last Done Comments [...] 023, 08/18/2021, 10/29/2019, Additional history exists GFR 04/26/2024 04/26/2023, 11/13, 09/05/2022, Additional history exists DTaP,Tdap,and Td Vaccines (2 - Td or Tdap) 06/05/2024 06/05/2014 DXA Scan 11/28/2024 11/28/2022, 04/16, 12/07/2016, Additional history exists Pneumococcal Vaccine: 65+ Years Completed 06/04/2015, 07/29/2008 VITAMIN D LEVEL ONCE IN A LIFETIME-USE SMARTSET# [id number] Completed 01/27/2021, 08/21/2017, 03/08/2017, Additional history exists [...] this encounter Medical Devices Implanted Type Area Four Horse Hitch Driver Device Identifier Shelf Expiration Date Model / Serial / Lot Stent Graft [id number] - [id number] - [id number] Implanted:Qty: 1 on 05/09/2022 by Cedrick Phillips MD at OR [facility] [place] : MARTIN [id number] 02/11/2025 [id number] 3 / [id number] / [id number] documented as of this encounter Procedures Procedure Name Priority Date/Time Associated Diagnosis Comments RADIOLOGY SCANNED RESULT 04/24/2023 documented in this encounter Results * RADIOLOGY SCANNED RESULT (04/24/2023) 04/24/2023 No Physician Data Unknown DIAGNOSTIC RAD IOLOGY SERVICES documented in this encounter Advance Directives Latest [...] Advance Directives occurred with: Patient Care Teams Chief Cloth Finishing Range Operator Relationship Specialty Start Date End Date Alexy Al MD [address] [place] [address] PCP - General 07/29/08 documented as of this encounter
--- OUTSIDE RECORDS SUMMARY | 2023-05-12 22:46 | External Medical Summary | Summary of Care ---
Author Name Unknown Organization [facility] Address [address] [facility] [place] [address] Phone [phone] Care Team Providers Care Butcher Apprentice Name Role Phone Alexy Al MD Primary Care Provider +1- [phone] Reason for Visit * Reason Onset Date Comments [facility]: Screening 04/26/2023 Encounter Details Date Type Department Care Team (Late st Contact Info) Description 04/26/2023 Telephone [facility], [place] [address] [place] [address] [place], Nurse [facility] [address] [facility] [place] [address] [facility]: Screening Allergies No known active allergiesdocumented as of [...] 24 Suspended Additional Information OneTouch Delica Plus [id number] USE TO TEST BLOOD SUGAR TWICE DAILY [...] 3 3 03/05/20 24 Suspended Additional Information InDMusic w/Device Kit Use up to 4 times [...] repeat CT. Coronary artery disease invo lving [place] heart without angina pectoris 05/08/2022 Last Assessment [...] Telephone Encounter - Rika Doty LPN - 04/26/2023 10:28 AM EST Martine [place] was referred as a potential candidate for enrollment for [facility]. A review of this chart was completed and: Martine meets criteria for [facility]. Jump to Initiation Referring care team was notified via : [facility] communication Currently IP at [facility] Will add to hospital list and follow for d/c documented in this encounter Plan of Treatment Upcoming Encounters Date Type Department Care Team (Late st Contact Info) Description 10/06/2023 10:40 AM EDT Office Visit [facility] [address] [place] [facility] [place] [address] Alexy Al MD [address] [facility] [place] [phone] Health Maintenance Due Date Last Done Comments [...] 10/29/2019, Additional history exists GFR 04/26/2024 04/26/2023, 04/14, 12/05/2022, Additional history exists DTaP,Tdap,and Td Vaccines (2 - Td or Tdap) 06/05/2024 06/05/2014 DXA Scan 11/28/2024 11/28/2022, 04/16, 12/07/2016, Additional history exists Pneumococcal Vaccine: 65+ Years Completed 06/04/2015, 07/29/2008 VITAMIN D LEVEL ONCE IN A LIFETIME-USE SMARTSET# [id number] Completed 01/27/2021, 08/21/2017, 03/08/2017, Additional history exists [...] this encounter Medical Devices Implanted Type Area Wheel Cutter Device Identifier Shelf Expiration Date Model / Serial / Lot Stent Graft [id number] - [id number] - [id number] Implanted:Qty: 1 on 05/09/2022 by Cedrick Phillips MD at OR [facility] [place] : MARTIN [id number] 02/11/2025 [id number] 3 / [id number] / [id number] documented as of this encounter Advance Directives [...] Advance Directives occurred with: Patient Care Teams Butcher Apprentice Relationship Specialty Start Date End Date Alexy Al MD [address] [place] [address] PCP - General 07/29/08 documented as of this encounter
--- OUTSIDE RECORDS SUMMARY | 2023-05-12 22:46 | External Medical Summary ---
Author Name Unknown Address Unknown Organization [id number]:[facility] [place] [address] [place] [facility] [place] [address] Laboratory Report Ordering Provider Test Date Status LADARIUS MCNAIRFERNANDA 04/27/2023 06:44:00 Final Observation Date Value Abnormality Reference (Units ) Status BUN 04/27/2023 06:44:00 17 6-20 (mg/dL) Final Creatinine 04/27/2023 06:44:00 0.8 0.5-1.0 (mg/dL) Final Glomerular filtration rate/1.73 sq M.predicted [Volume Rate/Area] in Serum, Plasma or Blood by Creatinine-based formula (CKD-EPI) 04/27/2023 06:44:00 72 >=60 (mL/min) Final eGFR is calculated based on the CKD-EPI 2020 equation SODIUM 04/27/2023 06:44:00 139 135-146 (m mol/L) Final Potassium 04/27/2023 06:44:00 3.4 Below low normal 3.5 -5.1 (mmol/L) Final Cl 04/27/2023 06:44:00 107 98-107 (mm ol/L) Final CO2 04/27/2023 06:44:00 25 22-32 (mmo l/L) Final Anion gap 04/27/2023 06:44:00 7 7-15 (mmol /L) Final Glucose 04/27/2023 06:44:00 179 Above high normal 70 -120 (mg/dL) Final Albumin 04/27/2023 06:44:00 2.6 Below low normal 3.8 -5.0 (g/dL) Final AST (Aspartate aminotransferase) 04/27/2023 06:44:00 61 Above high normal 10-35 (U/L) Final Alk Phos 04/27/2023 06:44:00 48 35-130 (U/ L) Final Bilirubin, Total 04/27/2023 06:44:00 1.2 <=1 .2 (mg/dL) Final Calcium 04/27/2023 06:44:00 7.4 Below low normal 8.4 -10.2 (mg/dL) Final Protein 04/27/2023 06:44:00 5.3 Below low normal 6.0 -8.3 (g/dL) Final ALT (Alanine aminotransferase) 04/27/2023 06:44:00 38 Above high normal 10-35 (U/L) Final Performing Location [facility] [place] [address] [facility] [address]
--- OUTSIDE RECORDS SUMMARY | 2023-05-12 22:46 | External Medical Summary ---
Author Name Unknown Address Unknown Organization K01:[facility]ATORY [facility] - [address] [place] [address] Laboratory Report Ordering Provider Test Date Status CORA MCNAIR 04/27/2023 06:44:00 Final Observation Date Value Abnormality Reference (Units ) Status Magnesium 04/27/2023 06:44:00 1.6 1.5-2.6 (m g/dL) Final Performing Location [facility] - [address] [place] [address]
--- OUTSIDE RECORDS SUMMARY | 2023-05-12 22:46 | External Medical Summary ---
Author Name Unknown Address Unknown Organization : Laboratory Report Ordering Provider Test Date Status CORA MCNAIR 04/27/2023 11:35:02 Final Observation Date Value Abnormality Reference (Units ) Status Glucose Point of Care 04/27/2023 11:35:02 148 Above high normal 70-120 (mg/dL) Final Performing Location
--- OUTSIDE RECORDS SUMMARY | 2023-05-12 22:46 | External Medical Summary ---
Author Name Unknown Address Unknown Organization [id number]:[facility] [place] [facility] [place] [address] [place] [address] Laboratory Report Ordering Provider Test Date Status ISHMAEL SOTO 04/26/2023 01:30:00 Final Observation Date Value Abnormality Reference (Units ) Status ABO 04/26/2023 01:30:00 A Final RH 04/26/2023 01:30:00 Positive Final RED BLOOD CELL ANTIBODY SCREEN 04/26/2023 01:30:00 Negative Final SPECIMEN EXPIRATION DATE 04/26/2023 01:30:00 04/29/2023 23:59 Final Performing Location [facility] - [address] [place] [address]
--- OUTSIDE RECORDS SUMMARY | 2023-05-12 22:46 | External Medical Summary ---
Author Name Unknown Address Unknown Organization [id number]:[facility] [place] [address] [place] [address] Laboratory Report Ordering Provider Test Date Status CORA MCNAIR 04/26/2023 07:31:00 Final Observation Date Value Abnormality Reference (Units ) Status Ferritin 04/26/2023 07:31:00 69 13-150 (ng /mL) Final Postmenopausal women have hi gher ferritin levels than pre-menopausal women. The above reference interval is based on pre-menopausal women. Performing Location LAB[facility]ATORY [facility] - [address] [place] [address]
--- OUTSIDE RECORDS SUMMARY | 2023-05-12 22:46 | External Medical Summary ---
Author Name Unknown Address Unknown Organization K01:[place] [place] [facility] [address] [facility] [place] [address] Laboratory Report Ordering Provider Test Date Status VERA BHATT 04/26/2023 20:07:00 Final Observation Date Value Abnormality Reference (Units ) Status WBC, Total 04/26/2023 20:07:00 8.17 4.00-10.80 (K/uL) Final RBC 04/26/2023 20:07:00 3.99 3.85-5.15 (M/uL) Final Hemoglobin 04/26/2023 20:07:00 11.2 Below low normal 12.0-15.3 (g/dL) Final HCT 04/26/2023 20:07:00 35.1 Below low normal 36.0-45.2 (%) Final MCV 04/26/2023 20:07:00 88.0 81.5-97.5 (fL) Final MCH 04/26/2023 20:07:00 28.1 27.0-34.0 (pg) Final MCHC 04/26/2023 20:07:00 31.9 32.0-36.0 (g/dL) Final RDW 04/26/2023 20:07:00 20.0 11.5-15.5 (%) Final Platelets 04/26/2023 20:07:00 123 Below low normal 140-400 (K/uL) Final MPV 04/26/2023 20:07:00 11.8 6.6-11.1 (fL) Final Nucleated erythrocytes/100 leukocytes [Ratio] in Blood by Automated count 04/26/2023 20:07:00 0 <=0 (/100 WBCs) Final Performing Location [facility]ATORY [facility] [place] - [address] [place] [address]
--- OUTSIDE RECORDS SUMMARY | 2023-05-12 22:46 | External Medical Summary ---
Author Name Unknown Address Unknown Organization : Laboratory Report Ordering Provider Test Date Status CORA MCNAIR 04/26/2023 16:27:41 Final Observation Date Value Abnormality Reference (Units ) Status Glucose Point of Care 04/26/2023 16:27:41 286 Above high normal 70-120 (mg/dL) Final Performing Location
--- OUTSIDE RECORDS SUMMARY | 2023-05-12 22:46 | External Medical Summary | Summary of Care ---
Author Name Unknown Organization [facility] Address [address] [place] [address] Phone [phone] Care Team Providers Care Greens Laborer Name Role Phone Alexy Al MD Primary Care Provider [phone]- [phone] Encounter Details Date Type Department Care Team (Late st Contact Info) Description 04/25/2023 Orders Only Unspecified Department Carline Monteiro PA-C [address] [facility] [place] [address] Allergies No known active allergiesdocumented as of [...] anaphylactic reaction per IS IV iron anaphylaxis protocol 1000 mL 11 3 Suspended Additional Information Patient not taking.Reported [...] 24 Suspended Additional Information OneTouch Delica Plus [id number] USE TO TEST BLOOD SUGAR TWICE DAILY [...] 3 3 03/05/20 24 Suspended Additional Information OneTouch Verio w/Device Kit Use up to [...] repeat CT. Coronary artery disease invo lving [place] heart without angina pectoris 05/08/2022 Last Assessment [...] Description 10/06/2023 10:40 AM EDT Office Visit [facility] [address] [place] [address] Alexy Al MD [address] [place] [address] Health Maintenance Due Date Last Done Comments [...] D LEVEL ONCE IN A LIFETIME-USE SMARTSET# [id number] Completed 01/27/2021, 08/21/2017, 03/08/2017, Additional history exists [...] this encounter Medical Devices Implanted Type Area Property Staff Accountant Device Identifier Shelf Expiration Date Model / Serial / Lot Stent Graft [id number] - [id number] - [id number] Implanted:Qty: 1 on 05/09/2022 by Cedrick Phillips [place] [facility] [facility] [place] MARTIN [id number] 02/11/2025 8545 3 / [id number] / [id number] documented as of this encounter Procedures Procedure Name Priority Date/Time Associated Diagnosis Comments RADIOLOGY EXAM - NUC MED (IMAGES ONLY, NO REPORT) Routine 04/25/2023 1:35 PM EST documented in this encounter Results * RADIOLOGY EXAM - NUC MED (IMAGES ONLY, NO REPORT) (04/25/2023 1:35 PM EST) 04/25/2023 1:35 PM EST Narrative Scheduling, Silent - 04/26/2023 8:08 AM EST This is an imaging study not interpreted or resulted by a [employer] or [employer] contracted radiologist. Carline Monteiro PA-C RAD NUCL EAR MED documented in this encounter Advance Directives Latest [...] Advance Directives occurred with: Patient Care Teams Greens Laborer Relationship Specialty Start Date End Date Alexy Al MD [address] [place] [address] PCP - General 07/29/08 documented as of this encounter
--- OUTSIDE RECORDS SUMMARY | 2023-05-12 22:46 | External Medical Summary ---
Author Name Unknown Address Unknown Organization K01:[facility] [place] - [address] [place] [address] [facility] [address] Laboratory Report Ordering Provider Test Date Status CORA MCNAIR 04/27/2023 06:44:00 Final Observation Date Value Abnormality Reference (Units ) Status WBC, Total 04/27/2023 06:44:00 4.94 4.00-10.80 (K/uL) Final RBC 04/27/2023 06:44:00 3.68 3.85-5.15 (M/uL) Final Hemoglobin 04/27/2023 06:44:00 10.3 Below low normal 12.0-15.3 (g/dL) Final HCT 04/27/2023 06:44:00 31.7 Below low normal 36.0-45.2 (%) Final MCV 04/27/2023 06:44:00 86.1 81.5-97.5 (fL) Final MCH 04/27/2023 06:44:00 28.0 27.0-34.0 (pg) Final MCHC 04/27/2023 06:44:00 32.5 32.0-36.0 (g/dL) Final RDW 04/27/2023 06:44:00 19.9 11.5-15.5 (%) Final Platelets 04/27/2023 06:44:00 95 Below low normal 140-400 (K/uL) Final MPV 04/27/2023 06:44:00 9.8 6.6-11.1 (fL) Final Nucleated erythrocytes/100 leukocytes [Ratio] in Blood by Automated count 04/27/2023 06:44:00 0 <=0 (/100 WBCs) Final Performing Location LABORATORY [facility] [place] - [address] [place] [address]
--- OUTSIDE RECORDS SUMMARY | 2023-05-12 22:46 | External Medical Summary ---
Author Name Unknown Address Unknown Organization K01:[facility] [place] [address] [place] [address] Laboratory Report Ordering Provider Test Date Status ISHMAEL SOTO 04/26/2023 01:30:00 Final Warfarin Therapy
INR: 2 .0-3.0 conventional anticoagulation
INR: 2.5- 3.5 high intensity anticoagulation Observation Date Value Abnormality Reference (Units ) Status PT 04/26/2023 01:30:00 18.3 Above high normal 11 .6-15.2 (seconds) Final INR 04/26/2023 01:30:00 1.5 Above high normal 0. 8-1.2 Final Performing Location [facility] [place] [address] [place] [address]
--- OUTSIDE RECORDS SUMMARY | 2023-05-12 22:46 | External Medical Summary ---
Author Name Unknown Address Unknown Organization K01:[facility] - [address] [place] [address] Laboratory Report Ordering Provider Test Date Status CORA MCANIR 04/26/2023 14:09:00 Final Observation Date Value Abnormality Reference (Units ) Status Hep C Ab 04/26/2023 14:09:00 Negative Negative Final Further HCV quantitative cristela ting not performed per protocol. Performing Location [facility] - [address] [place] [address]
--- OUTSIDE RECORDS SUMMARY | 2023-05-12 22:46 | External Medical Summary ---
Author Name Unknown Address Unknown Organization K01:[place] [place] [address] [place] [address] Laboratory Report Ordering Provider Test Date Status CORA MCNAIR 04/26/2023 07:31:00 Final Observation Date Value Abnormality Reference (Units ) Status Iron 04/26/2023 07:31:00 23 Below low normal 33-151 (ug/dL) Final Iron-binding capacity 04/26/2023 07:31:00 299 250-425 (ug/dL) Final Transferrin Sat % 04/26/2023 07:31:00 8 Below low normal 15-55 (%) Final Performing Location [facility] [place] [address] [place] [address]
--- OUTSIDE RECORDS SUMMARY | 2023-05-12 22:46 | External Medical Summary | Summary of Care ---
Author Name Unknown Organization [facility] Address [address] [place] [address] Phone [phone] Care Team Providers Care Car Construction Superintendent Name Role Phone Alexy Al MD Primary Care Provider +1- [phone] Encounter Details Date Type Department Care Team (Late st Contact Info) Description 04/24/2023 Orders Only Unspecified Department Carline Monteiro PA-C [address] [facility] [place] [address] Allergies No known active allergiesdocumented [...] IS IV iron anaphylaxis protocol 1000 mL 3 [...] 24 Suspended Additional Information OneTouch Delica Plus [id number] USE TO TEST BLOOD SUGAR TWICE DAILY [...] repeat CT. Coronary artery disease invo lving [place] heart without angina pectoris 05/08/2022 Last Assessment [...] Description 10/06/2023 10:40 AM EDT Office Visit [facility] [address] [place] [address] Alexy Al MD [address] [place] [address] Health Maintenance Due Date Last Done Comments [...] D LEVEL ONCE IN A LIFETIME-USE SMARTSET# [id number] Completed 01/27/2021, 08/21/2017, 03/08/2017, Additional history exists [...] this encounter Medical Devices Implanted Type Area Commissioner Of Conciliation Device Identifier Shelf Expiration Date Model / Serial / Lot Stent Graft [id number] - [id number] - [id number] Implanted:Qty: 1 on 05/09/2022 by Cedrick Phillips MD [place] [facility] [place] MARTIN [id number] 02/11/2025 8545 3 / [id number] / [id number] documented as of this encounter Procedures Procedure Name Priority Date/Time Associated Diagnosis Comments RADIOLOGY EXAM - CT (IMAGES ONLY, NO REPORT) Routine 04/24/2023 2:20 PM EST documented in this encounter Results * RADIOLOGY EXAM - CT (IMAGES ONLY, NO REPORT) (04/24/2023 2:20 PM EST) 04/24/2023 2:17 PM EST Narrative Scheduling, Silent - 04/26/2023 8:06 AM EST This is an imaging study not interpreted or resulted by a [employer] or [employer] contracted radiologist. Carline Mnoteiro PA-C RAD CT documented in this encounter Advance Directives Latest [...] Advance Directives occurred with: Patient Care Teams Car Construction Superintendent Relationship Specialty Start Date End Date Alexy Al MD [address] [place] [address] PCP - General 07/29/08 documented as of this encounter
--- OUTSIDE RECORDS SUMMARY | 2023-05-12 22:46 | External Medical Summary | Summary of Care ---
Author Name Unknown Organization [facility] Address [address] [place] [address] Phone [phone] Care Team Providers Care Palliative Senior Np Name Role Phone Alexy Al MD Primary Care Provider +1- [phone] Encounter Details Date Type Department Care Team (Latest Contact Info) Description 04/24/2023 2:20 PM EST - 04/24/2023 11:59 PM EST Hospital Encounter Radiology Film File [address] [place] [address] Arrived Discharge Disposition: Home - Self Care Allergies No known active allergiesdocumented as of this encounter (statuses as of 04/27/2023) Medications Medication Sig Dispensed Refills Start Date [...] twice daily E11.9 E11.29 400 Each 3 Suspended Additional Information Zoster Vac Recomb [...] 24 Suspended Additional Information OneTouch Delica Plus [id number] USE TO TEST BLOOD SUGAR TWICE DAILY 400 Each 1 3 08/31/19 24 Suspended Additional Information NovoLIN 70/30 (70-30) 100 UNIT/ML Subcutaneous SuspensionIndicati ons:Type 2 diabetes mellitus with hemoglobin A1c goal of less than 8.0% ([facility]) INJECT 25 UNITS SUBCUTANEOUSLY BEFORE [...] as of this encounter (statuses as of 04/27/2023) Active Problems Problem Noted Date Diagnosed Date [...] Coronary artery disease invo lving [place] heart without angina pectoris 05/08/2022 Last Assessment [...] as of this encounter (statuses as of 04/27/2023) Resolved Problems Problem Noted Date Diagnosed Date [...] as of this encounter (statuses as of 04/27/2023) Immunizations Name Administration Dates Next Due COVID-19 [...] Description 10/06/2023 10:40 AM EDT Office Visit [facility] [address] [place] [id number] Alexy Al MD [address] [place] [address] Scheduled Procedures Name Priority Associated Diagnoses Date/Ti me COLONOSCOPY FLEXIBLE PROXIMA L DIAGNOSTIC Hematochezia 04/27/2023 12:20 PM EST Health Maintenance Due Date Last [...] 023, 08/18/2021, 10/29/2019, Additional history exists GFR 04/27/2024 04/27/2023, 04/14, 04/26/2023, Additional history exists DTaP,Tdap,and Td Vaccines (2 - Td or Tdap) 06/05/2024 06/05/2014 DXA Scan 11/28/2024 11/28/2022, 04/16, 12/07/2016, Additional history exists Pneumococcal Vaccine: 65+ Years Completed 06/04/2015, 07/29/2008 VITAMIN D LEVEL ONCE IN A LIFETIME-USE SMARTSET# [id number] Completed 01/27/2021, 08/21/2017, 03/08/2017, Additional history exists [...] this encounter Medical Devices Implanted Type Area Special Assemblies Supervisor Device Identifier Shelf Expiration Date Model / Serial / Lot Stent Graft [id number] - [id number] - [id number] Implanted:Qty: 1 on 05/09/2022 by Cedrick Phillips MD at [place] [facility] [place] MARTIN [id number] 02/11/2025 8545 3 / [id number] / [id number] documented as of this encounter Procedures Procedure [...] study not interpreted or resulted by a [employer] or [employer] contracted radiologist. Carline Monteiro PA-C RAD CT documented in this encounter [...] Advance Directives occurred with: Patient Care Teams Palliative Senior Np Relationship Specialty Start Date End Date Alexy Al MD [address] [place] [address] PCP - General 07/29/08 documented as of this encounter
--- OUTSIDE RECORDS SUMMARY | 2023-05-12 22:46 | External Medical Summary ---
Author Name Unknown Address Unknown Organization K01:[place] [place] [address] [place] [address] Laboratory Report Ordering Provider Test Date Status ISHMAEL SOTO 04/26/2023 07:31:00 Final Warfarin Therapy
INR: 2 .0-3.0 conventional anticoagulation
INR: 2.5- 3.5 high intensity anticoagulation Observation Date Value Abnormality Reference (Units ) Status PT 04/26/2023 07:31:00 18.0 Above high normal 11 .6-15.2 (seconds) Final INR 04/26/2023 07:31:00 1.5 Above high normal 0. 8-1.2 Final Performing Location [place] [facility] [place] [address] [place] [address]
--- OUTSIDE RECORDS SUMMARY | 2023-05-12 22:46 | External Medical Summary ---
Author Name Unknown Address Unknown Organization K01:[place] [place] [address] [place] [address] [place] [address] Laboratory Report Ordering Provider Test Date Status ISHMAEL SOTO 04/26/2023 02:43:01 Final Observation Date Value Abnormality Reference (Units ) Status Methicillin resistant Staphylococcus aureus (MRSA) DNA [Presence] in Nose by EMILEE with probe detection 04/26/2023 02:43:01 Negative Negative Final No Methicillin resistant Sta phylococcus aureus detected by PCR (amplified probe). Performing Location [facility]ORY [facility] [place] [address] [place] [address]
--- OUTSIDE RECORDS SUMMARY | 2023-05-12 22:46 | External Medical Summary ---
Author Name Unknown Address Unknown Organization K01:[place] [place] [address] [facility] [address] Laboratory Report Ordering Provider Test Date Status ISHMAEL SOTO 04/26/2023 07:31:00 Final Observation Date Value Abnormality Reference (Units ) Status BUN 04/26/2023 07:31:00 27 Above high normal 6-20 (mg/dL) Final Creatinine 04/26/2023 07:31:00 0.9 0.5-1.0 (mg/dL) Final Glomerular filtration rate/1.73 sq M.predicted [Volume Rate/Area] in Serum, Plasma or Blood by Creatinine-based formula (CKD-EPI) 04/26/2023 07:31:00 62 >=60 (mL/min) Final eGFR is calculated based on the CKD-EPI 2020 equation SODIUM 04/26/2023 07:31:00 142 135-146 (m mol/L) Final Potassium 04/26/2023 07:31:00 3.8 3.5-5.1 (m mol/L) Final Cl 04/26/2023 07:31:00 110 Above high normal 98 -107 (mmol/L) Final CO2 04/26/2023 07:31:00 25 22-32 (mmo l/L) Final Anion gap 04/26/2023 07:31:00 7 7-15 (mmol /L) Final Glucose 04/26/2023 07:31:00 198 Above high normal 70 -120 (mg/dL) Final Albumin 04/26/2023 07:31:00 2.6 Below low normal 3.8 -5.0 (g/dL) Final AST (Aspartate aminotransferase) 04/26/2023 07:31:00 53 Above high normal 10-35 (U/L) Final Alk Phos 04/26/2023 07:31:00 47 35-130 (U/ L) Final Bilirubin, Total 04/26/2023 07:31:00 1.1 <=1 .2 (mg/dL) Final Calcium 04/26/2023 07:31:00 7.7 Below low normal 8.4 -10.2 (mg/dL) Final Protein 04/26/2023 07:31:00 5.3 Below low normal 6.0 -8.3 (g/dL) Final ALT (Alanine aminotransferase) 04/26/2023 07:31:00 36 Above high normal 10-35 (U/L) Final Performing Location [facility] [place] [address] [facility] [address]
--- OUTSIDE RECORDS SUMMARY | 2023-05-12 22:46 | External Medical Summary ---
Author Name Unknown Address Unknown Organization : Laboratory Report Ordering Provider Test Date Status CORA MCNAIR 04/26/2023 11:37:22 Final Observation Date Value Abnormality Reference (Units ) Status Glucose Point of Care 04/26/2023 11:37:22 153 Above high normal 70-120 (mg/dL) Final Performing Location
--- OUTSIDE RECORDS SUMMARY | 2023-05-12 22:46 | External Medical Summary ---
Author Name Unknown Address Unknown Organization K01:[facility] [place] [place] [address] [place] [address] Laboratory Report Ordering Provider Test Date Status CORA MCNAIR 04/27/2023 06:44:00 Final Warfarin Therapy
INR: 2 .0-3.0 conventional anticoagulation
INR: 2.5- 3.5 high intensity anticoagulation Observation Date Value Abnormality Reference (Units ) Status PT 04/27/2023 06:44:00 17.9 Above high normal 11 .6-15.2 (seconds) Final INR 04/27/2023 06:44:00 1.5 Above high normal 0. 8-1.2 Final Performing Location LAB[facility] [place] [place] [address] [place] [address]
--- OUTSIDE RECORDS SUMMARY | 2023-05-12 22:46 | External Medical Summary ---
Author Name Unknown Address Unknown Organization : Laboratory Report Ordering Provider Test Date Status CORA MCNAIR 04/26/2023 21:06:09 Final Observation Date Value Abnormality Reference (Units ) Status Glucose Point of Care 04/26/2023 21:06:09 204 Above high normal 70-120 (mg/dL) Final Performing Location
--- OUTSIDE RECORDS SUMMARY | 2023-05-12 22:46 | External Medical Summary ---
Author Name Unknown Address Unknown Organization K01:LABORATORY [address] [facility] [address] Laboratory Report Ordering Provider Test Date Status CORA MCNAIR 04/26/2023 14:09:00 Final Observation Date Value Abnormality Reference (Units ) Status HIV 1+2 Ab+HIV1 p24 Ag [Presence] in Serum or Plasma by Immunoassay 04/26/2023 14:09:00 Negative Negative Final Negative HIV-1/2 antigen and antibody screening tset results usually indicate the absence of HIV-1 and HIV-2 infection. However, such negative results do not rule-out acute HIV infection. If acute HIV-1 infection is highly suspected, it is recommended that a specimen be submitted for detection of HIV-1 RNA. Performing Location [facility] [facility] [place] [address] [facility] [address] [facility] [address]
--- OUTSIDE RECORDS SUMMARY | 2023-05-12 22:46 | External Medical Summary ---
Author Name Unknown Address Unknown Organization : Laboratory Report Ordering Provider Test Date Status CORA MCNAIR 04/27/2023 06:23:26 Final Observation Date Value Abnormality Reference (Units ) Status Glucose Point of Care 04/27/2023 06:23:26 174 Above high normal 70-120 (mg/dL) Final Performing Location
--- OUTSIDE RECORDS SUMMARY | 2023-05-12 22:46 | External Medical Summary ---
Author Name Unknown Address Unknown Organization K01:[facility]ORY [facility] - [address] [place] [address] Laboratory Report Ordering Provider Test Date Status ISHMAEL SOTO 04/26/2023 07:31:00 Final Observation Date Value Abnormality Reference (Units ) Status Magnesium 04/26/2023 07:31:00 1.6 1.5-2.6 (m g/dL) Final Performing Location [facility] - [address] [place] [id number]
--- OUTSIDE RECORDS SUMMARY | 2023-05-12 22:46 | External Medical Summary ---
Author Name Unknown Address Unknown Organization K01:[facility] [place] - [facility] [address] Laboratory Report Ordering Provider Test Date Status ISHMAEL SOTO 04/26/2023 07:31:00 Final Observation Date Value Abnormality Reference (Units ) Status WBC, Total 04/26/2023 07:31:00 5.53 4.00-10.80 (K/uL) Final RBC 04/26/2023 07:31:00 3.73 3.85-5.15 (M/uL) Final Hemoglobin 04/26/2023 07:31:00 10.4 Below low normal 12.0-15.3 (g/dL) Final HCT 04/26/2023 07:31:00 31.3 Below low normal 36.0-45.2 (%) Final MCV 04/26/2023 07:31:00 83.9 81.5-97.5 (fL) Final MCH 04/26/2023 07:31:00 27.9 27.0-34.0 (pg) Final MCHC 04/26/2023 07:31:00 33.2 32.0-36.0 (g/dL) Final RDW 04/26/2023 07:31:00 19.5 11.5-15.5 (%) Final Platelets 04/26/2023 07:31:00 100 Below low normal 140-400 (K/uL) Final MPV 04/26/2023 07:31:00 11.3 6.6-11.1 (fL) Final Nucleated erythrocytes/100 leukocytes [Ratio] in Blood by Automated count 04/26/2023 07:31:00 0 <=0 (/100 WBCs) Final Performing Location [facility] [place] - [address] [place] [address]
--- OUTSIDE RECORDS SUMMARY | 2023-05-12 22:46 | External Medical Summary ---
Author Name Unknown Address Unknown Organization : Laboratory Report Ordering Provider Test Date Status CORA MCNAIR 04/27/2023 00:16:03 Final Observation Date Value Abnormality Reference (Units ) Status Glucose Point of Care 04/27/2023 00:16:03 194 Above high normal 70-120 (mg/dL) Final Performing Location
--- OUTSIDE RECORDS SUMMARY | 2023-05-12 22:46 | External Medical Summary ---
Author Name Unknown Address Unknown Organization : Laboratory Report Ordering Provider Test Date Status CORA MCNAIR 04/26/2023 05:17:22 Final Observation Date Value Abnormality Reference (Units ) Status Glucose Point of Care 04/26/2023 05:17:22 215 Above high normal 70-120 (mg/dL) Final Performing Location
--- OUTSIDE RECORDS SUMMARY | 2023-05-12 22:46 | External Medical Summary | Summary of Care ---
Author Name Unknown Organization [facility] Address [address] [place] [address] Phone [phone] Care Team Providers Care Claim Benefit Specialist Name Role Phone Alexy Al MD Primary Care Provider +1- [phone] Encounter Details Date Type Department Care Team (Latest Contact Info) Description 04/25/2023 1:35 PM EST - 04/25/2023 11:59 PM EST Hospital Encounter Radiology Film File [address] [place] [address] Arrived Discharge Disposition: Home - [...] 24 Suspended Additional Information OneTouch Delica Plus [id number] USE TO TEST BLOOD SUGAR TWICE DAILY 400 Each 1 3 08/31/19 24 Suspended Additional Information NovoLIN 70/30 (70-30) 100 UNIT/ML Subcutaneous SuspensionIndicati ons:Type 2 diabetes mellitus with hemoglobin A1c goal of less than 8.0% ([facility]) INJECT 25 UNITS SUBCUTANEOUSLY BEFORE BREAKFAST AND [...] repeat CT. Coronary artery disease invo lving [place] heart without angina pectoris 05/08/2022 Last Assessment [...] Description 10/06/2023 10:40 AM EDT Office Visit [facility] [address] [place] [id number] Alexy Al MD [address] [place] [address] Scheduled Procedures Name Priority Associated Diagnoses Date/Ti [...] D LEVEL ONCE IN A LIFETIME-USE SMARTSET# [id number] Completed 01/27/2021, 08/21/2017, 03/08/2017, Additional history exists [...] this encounter Medical Devices Implanted Type Area Bell Spinner Device Identifier Shelf Expiration Date Model / Serial / Lot Stent Graft [id number] - [id number] - [id number] Implanted:Qty: 1 on 05/09/2022 by Cedrick Phillips MD at OR [facility] GETINGE : MARTIN [id number] 02/11/2025 [id number] / [id number] / [id number] documented as of this encounter Procedures Procedure [...] study not interpreted or resulted by a [facility] or [employer] contracted radiologist. Carline Monteiro PA-C RAD NUCL [...] Advance Directives occurred with: Patient Care Teams Claim Benefit Specialist Relationship Specialty Start Date End Date Alexy Al MD [address] [place] [address] PCP - General 07/29/08 documented as of this encounter
--- OUTSIDE RECORDS SUMMARY | 2023-05-12 22:47 | External Medical Summary ---
Author Name Unknown Address Unknown Organization K01:[facility] [place] [facility] [address] Laboratory Report Ordering Provider Test Date Status ISHMAEL SOTO 04/26/2023 01:30:00 Final Observation Date Value Abnormality Reference (Units ) Status WBC, Total 04/26/2023 01:30:00 6.23 4.00-10.80 (K/uL) Final RBC 04/26/2023 01:30:00 3.86 3.85-5.15 (M/uL) Final Hemoglobin 04/26/2023 01:30:00 10.9 Below low normal 12.0-15.3 (g/dL) Final HCT 04/26/2023 01:30:00 33.0 Below low normal 36.0-45.2 (%) Final MCV 04/26/2023 01:30:00 85.5 81.5-97.5 (fL) Final MCH 04/26/2023 01:30:00 28.2 27.0-34.0 (pg) Final MCHC 04/26/2023 01:30:00 33.0 32.0-36.0 (g/dL) Final RDW 04/26/2023 01:30:00 19.0 11.5-15.5 (%) Final Platelets 04/26/2023 01:30:00 110 Below low normal 140-400 (K/uL) Final MPV 04/26/2023 01:30:00 12.0 6.6-11.1 (fL) Final Nucleated erythrocytes/100 leukocytes [Ratio] in Blood by Automated count 04/26/2023 01:30:00 0 <=0 (/100 WBCs) Final Performing Location [facility] [place] [address] [place] [address]
--- OUTSIDE RECORDS SUMMARY | 2023-05-12 22:47 | External Medical Summary ---
Author Name Unknown Address Unknown Organization K01:[facility] [place] [address] [place] [address] Laboratory Report Ordering Provider Test Date Status ISMHAEL SOTO 04/26/2023 01:30:00 Final Observation Date Value Abnormality Reference (Units ) Status BUN 04/26/2023 01:30:00 28 Above high normal 6-20 (mg/dL) Final Creatinine 04/26/2023 01:30:00 1.0 0.5-1.0 (mg/dL) Final Glomerular filtration rate/1.73 sq M.predicted [Volume Rate/Area] in Serum, Plasma or Blood by Creatinine-based formula (CKD-EPI) 04/26/2023 01:30:00 56 Below low normal >=60 (mL/min) Final eGFR is calculated based on the CKD-EPI 2020 equation SODIUM 04/26/2023 01:30:00 143 135-146 (m mol/L) Final Potassium 04/26/2023 01:30:00 4.0 3.5-5.1 (m mol/L) Final Cl 04/26/2023 01:30:00 107 98-107 (mm ol/L) Final CO2 04/26/2023 01:30:00 23 22-32 (mmo l/L) Final Anion gap 04/26/2023 01:30:00 13 7-15 (mmol /L) Final Glucose 04/26/2023 01:30:00 194 Above high normal 70 -120 (mg/dL) Final Calcium 04/26/2023 01:30:00 7.6 Below low normal 8.4 -10.2 (mg/dL) Final Performing Location [facility] [place] [address] [place] [address]
--- OUTSIDE RECORDS SUMMARY | 2023-05-12 22:47 | External Medical Summary | Summary of Care ---
Author Name Unknown Organization [facility] Address [address] [facility] [place] [address] Phone [phone] Care Team Providers Care Security Program Manager Name Role Phone Alexy Al MD Primary Care Provider +1- [phone] Encounter Details Date Type Department Care Team (Late st Contact Info) Description 04/25/2023 Orders Only Gastroenterology, [facility] [address] [place] [id number] Erich Cummings MD [address] [place] [address] Allergies No known active allergiesdocumented as of this encounter (statuses as of 04/25/2023) Medications Medication Sig Dispensed Refills Start Date [...] Strip 08/31/2022 4 Active OneTouch Delica Plus [id number] USE TO TEST BLOOD SUGAR TWICE DAILY [...] DAILY 100 Tablet 1 03/25/2023 4 Active Furosemide 40 MG Oral Tablet (Lasix)Indications: Chronic heart failure with preserved ejection fraction (HCC) Take 1.5 Tablets by mouth in the morning. 135 Tablet 1 04/18/2023 Active documented as of this encounter (statuses as of 04/25/2023) Active Problems Problem Noted Date Diagnosed Date [...] repeat CT. Coronary artery disease invo lving [place] heart without angina pectoris 05/08/2022 Last Assessment [...] as of this encounter (statuses as of 04/25/2023) Resolved Problems Problem Noted Date Diagnosed Date [...] as of this encounter (statuses as of 04/25/2023) Immunizations Name Administration Dates Next Due COVID-19 [...] Description 10/06/2023 10:40 AM EDT Office Visit [facility] [address] [place] [phone] Alexy Al MD [address] [place] [address] Health Maintenance Due Date Last [...] D LEVEL ONCE IN A LIFETIME-USE SMARTSET# [id number] Completed 01/27/2021, 08/21/2017, 03/08/2017, Additional history exists [...] this encounter Medical Devices Implanted Type Area Curtain Cutter Device Identifier Shelf Expiration Date Model / Serial / Lot Stent Graft [id number] - [id number] - [id number] Implanted:Qty: 1 on 05/09/2022 by Cedrick Phillips MD at OR [facility] GET[place]E : MARTIN [id number] 02/11/2025 8545 3 / [id number] / [id number] documented as of this encounter Procedures Procedure Name Priority Date/Time Associated Diagnosis Comments UPPER GI ENDOSCOPY 04/25/2023 documented in this encounter Results * UPPER GI ENDOSCOPY (04/25/2023) 04/25/2023 Erich Cummings MD GASTRO UPPER documented in this encounter Advance Directives Latest Code Status on File Code Status Date Activated Date Inactivated Comments No Code 05/08/2022 11:42 AM 05/11/2022 7:56 PM Th is order reflects the patients wishes and were consensually agreed upon. Question Answer Comments Discussion of Advance Directives occurred with: Patient Care Teams Security Program Manager Relationship Specialty Start Date End Date Alexy Al MD [address] [place] [address] PCP - General 07/29/08 documented as of this encounter
[2023-05-12] MEDS ORDERED: ACETAMINOPHEN 325 MG TAB PO PRN (23:59)
[2023-05-12] MEDS ORDERED: GLUCOSE 10 TAB/TUBE PO PRN (23:59)
[2023-05-12] MEDS ORDERED: GLUCOSE 40% GEL 15 GM TUBE PO PRN (23:59)
[2023-05-12] MEDS ORDERED: LANTUS PER UNIT CHARGE SQ SCH (23:59)
[2023-05-12] MEDS ORDERED: GLUCAGON FOR INJ 1 MG VIAL SQ PRN (23:59)
[2023-05-12] MEDS ORDERED: CARBOHYDRATES FOR HYPOGLYCEMIA PO PRN (23:59)
[2023-05-13] MEDS: PANTOprazole 40 MG in DEXTROSE 5% MINI-B 100 ML IV SCH ×6 (00:07→21:26)
[2023-05-13] MEDS ORDERED: DEXTROSE 50% 50 ML SYRINGE IV ONE (00:19)
[2023-05-13] MEDS: DEXTROSE 50% 50 ML SYRINGE IV PRN ×3 (00:20→06:11)
[2023-05-13] MEDS: MELATONIN 3 MG TAB PO SCH ×2 (01:41→19:56)
[2023-05-13] MEDS: ATORVASTATIN 40 MG TAB PO SCH ×2 (01:41→19:55)
[2023-05-13] MEDS: INSULIN ASPART PER UNIT CHARGE SC SCH ×5 (01:44→20:32)
[2023-05-13 07:35] LABS: Hematocrit (blood only) 24.9 % (37.0-47.0); Hemoglobin 8.2 g/dl (12.0-16.0); Mean Corpuscular Hemoglobin 28.4 pg (25.0-34.0); Mean Corpuscular Hgb Conc 32.9 g/dL (32.0-36.0); Mean Corpuscular Volume 86.2 fL (80.0-100.0); Mean Platelet Volume 11.6 fL (9.4-12.4); Platelet Count 100 K/uL (130-400); RDW Coefficient of Variation 18.2 % (11.5-14.5); RDW Standard Deviation 56.8 fL (36.4-46.3); Red Blood Count 2.89 M/uL (4.20-5.40); White Blood Count 4.16 K/ul (4.8-10.8)
--- NOTE | 2023-05-13 07:42 | Electrocardiogram Report ---
Test Reason : Blood Pressure : / mmHG Vent. Rate : 084 BPM Atrial Rate : 084 BPM P-R Int : 192 ms QRS Dur : 082 ms QT Int : 398 ms P-R-T Axes : 038 033 071 degrees QTc Int : 470 ms Normal sinus rhythm Low voltage QRS Borderline ECG When compared with ECG of 24-APR-2023 11:34, No significant change was found Confirmed by Roosevelt Pereyra ([id number]) on 05/13/2023 7:41:39 AM Referred By: REFERRED SELF Confirmed By:Roosevelt Pereyra
[2023-05-13 07:47] LABS: BUN Creatinine Ratio 34.4 (10-20); Calcium 8.3 mg/dl (8.6-10.3); Creatinine Clr Calc Pharmacy 27.7 ml/min; Est GFR (African American) 36.9 ml/min; Est GFR (Non-African American) 31.9 ml/min; Potassium 4.1 mmol/L (3.5-5.1)
[2023-05-13] MEDS: OCTREOTIDE ACETATE 500mcg / NSS 100mL IV SCH (07:55)
[2023-05-13] MEDS ORDERED: SODIUM CHLORIDE 0.9% 250 ML IV PRN (09:24)
[2023-05-13] MEDS: CINACALCET HCL 30 MG TAB PO SCH (09:28)
[2023-05-13 11:05] LABS: Basophils # (auto) 0.04 K/uL (0.00-0.20); Eosinophils # (auto) 0.11 K/uL (0.00-0.50); Eosinophils % (auto) 2.7 %; Hematocrit (blood only) 28.7 % (37.0-47.0); Hemoglobin 9.2 g/dl (12.0-16.0); Lymphocytes # (auto) 0.97 K/uL (1.20-3.40); Lymphocytes % (auto) 23.7 %; Mean Corpuscular Hgb Conc 32.1 g/dL (32.0-36.0); Mean Corpuscular Volume 87.2 fL (80.0-100.0); Mean Platelet Volume 11.9 fL (9.4-12.4); Monocytes # (auto) 0.33 K/uL (0.11-0.59); Monocytes % (auto) 8.1 %; Neutrophils # (auto) 2.64 K/uL (1.40-6.50); Neutrophils % (auto) 64.5 %; Platelet Count 115 K/uL (130-400); RDW Coefficient of Variation 18.6 % (11.5-14.5); RDW Standard Deviation 58.3 fL (36.4-46.3); Red Blood Count 3.29 M/uL (4.20-5.40); White Blood Count 4.09 K/ul (4.8-10.8)
--- NOTE | 2023-05-13 12:06 | Gastrointestinal Consultation ---
Date of Consultation May 13, 2023 Assessment & Plan (1) Hepatic cirrhosis: (2) Acute GI bleeding: (3) Acute blood loss anemia: (4) Esophageal varices: Continue Protonix gtt and Octreotide gtt Continue IV Abx as per Hospitalist Recommend EGD today Further recommendations to follow. History of Present Illness Reason for Consultation: Acute blood loss anemia, Cirrhosis with history of esophageal varices Attending Physician: Santi Madden MD History of Present Illness Martine Russell is an 82 yo CF with an extensive PMHx that includes cirrhosis and esophageal varices. She was recently admitted to [facility] in mid-April for GI bleeding, and did undergo an EGD by Dr. Cummings. At that time, she was noted to have no active or recent bleeding noted on EGD, however, she did have Grade II esophageal varices, without stigmata of recent bleeding. During her hospitalization she did have a negative bleeding scan. She was transferred to [facility], for potential need for IR intervention from unknown bleeding source, and did undergo a colonoscopy at that time, with no acute GI bleeding noted, and no intervention performed. She states that she developed melena mixed with bright red blood yesterday, prompting her to present to the ER. Upon arrival to the ER her H/H was 7.0/21.1. She was subsequently started on a Protonix and Octreotide gtt, and transfused 2 u PRBC. Of note, she is on Plavix at home, and took it the day before her arrival to the ER. She was admitted to PCU. At the time I saw her, she states that she is feeling better, but did have a bloody BM overnight. She denies any abdominal pain, lightheadedness, dizziness, fevers, chills, nausea, vomiting, or hematemesis. She is asking for something to eat. She denies any further complaints. Allergies Allergy/AdvReac Type Severity Reaction Status Date / Time metals Allergy Intermediate CHEAP Uncoded 04/25/23 09:49 METALS--RASH Home Medications Medication Instructions Recorded Confirmed Type alendronate 70 mg tablet 70 mg PO SERRANO@0900 01/22/22 05/12/23 History biotin 1 mg tablet 1 mg PO DAILY 01/22/22 05/12/23 History cinacalcet 30 mg tablet (Sensipar) 30 mg PO QAM 01/22/22 05/12/23 History glucosamine-chondroitin 250 mg-200 1 tab PO DAILY 01/22/22 05/12/23 History mg tablet (Osteo Bi-Flex) insulin human U-100 NPH-regulr See Rx Instructions .Route .COMPLEX 01/22/22 05/12/23 History 70-30 mix 100 unit/mL subcutaneous susp (Novolin 70/30 U-100 Insulin) losartan 25 mg tablet 25 mg PO QAM 01/22/22 05/12/23 History metformin 1,000 mg tablet 1,000 mg PO BID 01/22/22 05/12/23 History vitamin B complex 1 tab PO DAILY 01/22/22 05/12/23 History magnesium oxide 400 mg (241.3 mg 400 mg PO DAILY #60 tabs 01/29/22 05/12/23 Rx magnesium) tablet atorvastatin 40 mg tablet 40 mg PO QPM 08/19/22 05/12/23 History furosemide 40 mg tablet (Lasix) 60 mg PO QAM 08/19/22 05/12/23 History pantoprazole 40 mg tablet,delayed 40 mg PO QAM 08/19/22 05/12/23 History release clopidogrel 75 mg tablet (Plavix) 75 mg PO DAILY 09/25/22 05/12/23 History epinephrine 0.3 mg/0.3 mL 0.3 mg IM DIRECTED PRN Allergic 09/25/22 05/12/23 History injection, auto-injector (EpiPen) Reaction iron,carbonyl 65 mg-vitamin C 125 1 tab PO QDD 09/25/22 05/12/23 History mg tablet,delayed release (Vitron-C) melatonin 10 mg tablet 10 mg PO HS 09/25/22 05/12/23 History dluetmwymiol-ytxpjgvv-gcytal tablet 1 tab PO DAILY 09/25/22 05/12/23 History carvedilol 3.125 mg tablet 3.125 mg PO BID 05/12/23 05/12/23 History Patient History Medical History Hepatic cirrhosis History of ischemic colitis GI bleed pt unaware CHF (congestive heart failure) Anemia Osteoporosis GERD (gastroesophageal reflux disease) Hyperparathyroidism Hypertension Poor historian Abnormal EKG pt unaware Acute respiratory failure CVA (cerebral vascular accident) Jan 2022 per pt > has some right hand weakness > does not follow with neuro Weakness of right upper extremity s/p CVA, just on occasion Lumbago Other and unspecified hyperlipidemia Type 2 diabetes mellitus without complications Essential (primary) hypertension Coronary atherosclerosis of [place] coronary vessel Acute heart failure with preserved ejection fraction (HFpEF) pt unaware Acute respiratory failure with hypoxia pt unaware Surgical History History of colonoscopy History of endovascular stent graft for abdominal aortic aneurysm unsure if this is exactly what she has, but had done in Apr 2022 at [place] she thinks it was for AAA S/P tonsillectomy S/P hysterectomy S/P appendectomy History of heart artery stent placed 1994 S/P cholecystectomy History of cataract surgery bilat Family History Mother , age 70 of a stroke and congestive heart failure Stroke CHF (congestive heart failure) Father , in his 70s of an [place] Myocardial infarction Social History Smoking Status: Never smoker packs per day: 4; Second Hand Exposure: No; Do You Dip or Chew Tobacco: No; Tobacco Cessation Education Requested by Patient: No Hx Alcohol Use: No Hx Substance Use: No Preferred Language: Tamazight Communication Ability: Effective Marketing Director Assisted Living Required: No Beliefs That Will Affect Care: None marital status: Current Living Situation: Spouse current occupational status: retired current occupation: Multiple different jobs retiring in her 50s. Other Information That Helps Us Care for You: No Feels Safe at Home: Yes Safety Concerns: Feels Safe At This Time Assistive Devices: None Review of Systems Review of Systems: All systems reviewed & are unremarkable except as noted in Subjective Physical Exam Constitutional: WD/WN, vitals as above Respiratory: normal respiratory effort, lungs clear to auscultation Cardiovascular: RRR, no murmur, no edema Gastrointestinal (Abdomen): normal bowel sounds, soft, nontender, no hepatosplenomegaly Skin: + pallor Psychiatric: A+Ox3, euthymic affect Results & Data Vital Signs (Past 12 Hours) Vital Signs Temp Pulse Pulse Resp BP BP Pulse Ox 05/13/23 08:32 36.6 C 73 16 109/58 L 92 05/13/23 04:08 36.5 C 73 16 119/50 L 96 05/13/23 03:40 76 05/13/23 03:05 36.4 C L 74 15 137/64 95 05/13/23 03:00 36.4 C L 74 15 137/64 95 05/13/23 02:42 36.5 C 74 16 125/53 L 95 05/13/23 02:05 36.4 C L 75 16 120/62 97 05/13/23 01:35 36.3 C L 62 16 110/55 L 99 05/13/23 01:20 36.3 C L 71 16 122/54 L 95 05/13/23 01:01 36.3 C L 68 18 100/45 L 98 O2 Del Method 05/13/23 08:32 Room Air 05/13/23 04:08 05/13/23 03:40 05/13/23 03:05 05/13/23 03:00 Room Air 05/13/23 02:42 Room Air 05/13/23 02:05 05/13/23 01:35 05/13/23 01:20 05/13/23 01:01 PG Care Time/CCT Total # of Minutes Spent Total Time Spent with Patient: Total time spent is greater than 50% in coordination of care (as documented) at patient's floor/unit and/or counseling patient: Coding Level of Care Code 64005 INT INP/OBS CARE 375MIN Diagnoses Hepatic cirrhosis K74.60 Acute GI bleeding K92.2 Acute blood loss anemia D62 Esophageal varices I85.00
[2023-05-13] MEDS ORDERED: ONDANSETRON INJ 2 MG/ML 2 ML VIAL ONE (12:20)
[2023-05-13] MEDS ORDERED: PROPOFOL IV EMULSION 10 MG/ML 20 ML VIAL IV ONE (12:20)
[2023-05-13] MEDS ORDERED: SUCCINYLCHOLINE CHLORIDE 20 MG/ML 10 ML VIAL IV ONE (12:20)
[2023-05-13] MEDS ORDERED: LIDOCAINE 2% 2 ML VIAL/AMP(20MG/ML) INFIL ONE ×2 (12:20→13:55)
[2023-05-13] MEDS ORDERED: fentaNYL citrate PF 100 MCG/2 ML VIAL ONE (13:19)
--- NOTE | 2023-05-13 13:49 | Anesthesiology Consultation ---
Date of Service May 13, 2023 Assessment & Plan Chart Review Chart Review: Acceptable Risk for Surgery and Patient NOT seen in Pre Admission Testing Consults Requested none ASA ASA4 Proposed Anesthesia Anesthesia Type: General Risk / Benefits Reviewed With: PT / POA / Parent / Guardian, Accepts Plan and Informed Consent Obtained History Surgery Operation Date: 05/13/23 14:00 Proposed Procedures p EGD Hemostasis - Rickey Lockhart Case, DO Height/Weight Height: 5 ft 3 in Weight: 74.1 kg Allergies Allergy/AdvReac Type Severity Reaction Status Date / Time metals Allergy Intermediate CHEAP Uncoded 04/25/23 09:49 METALS--RASH Medications Home Medications Medication Instructions Recorded Confirmed Last Taken alendronate 70 mg tablet 70 mg PO SERRANO@0900 01/22/22 05/12/23 08/25/22 08:00 biotin 1 mg tablet 1 mg PO DAILY 01/22/22 05/12/23 09/24/22 cinacalcet 30 mg tablet (Sensipar) 30 mg PO QAM 01/22/22 05/12/23 09/24/22 glucosamine-chondroitin 250 mg-200 1 tab PO DAILY 01/22/22 05/12/23 09/24/22 mg tablet (Osteo Bi-Flex) insulin human U-100 NPH-regulr See Rx Instructions .Route .COMPLEX 01/22/22 05/12/23 09/24/22 70-30 mix 100 unit/mL subcutaneous susp (Novolin 70/30 U-100 Insulin) losartan 25 mg tablet 25 mg PO QAM 01/22/22 05/12/23 09/24/22 metformin 1,000 mg tablet 1,000 mg PO BID 01/22/22 05/12/23 09/24/22 vitamin B complex 1 tab PO DAILY 01/22/22 05/12/23 09/24/22 magnesium oxide 400 mg (241.3 mg 400 mg PO DAILY #60 tabs 01/29/22 05/12/23 09/24/22 magnesium) tablet atorvastatin 40 mg tablet 40 mg PO QPM 08/19/22 05/12/23 09/24/22 furosemide 40 mg tablet (Lasix) 60 mg PO QAM 08/19/22 05/12/23 09/24/22 pantoprazole 40 mg tablet,delayed 40 mg PO QAM 08/19/22 05/12/23 09/24/22 release clopidogrel 75 mg tablet (Plavix) 75 mg PO DAILY 09/25/22 05/12/23 09/24/22 epinephrine 0.3 mg/0.3 mL 0.3 mg IM DIRECTED PRN Allergic 09/25/22 05/12/23 Unknown injection, auto-injector (EpiPen) Reaction iron,carbonyl 65 mg-vitamin C 125 1 tab PO QDD 09/25/22 05/12/23 09/24/22 mg tablet,delayed release (Vitron-C) melatonin 10 mg tablet 10 mg PO HS 09/25/22 05/12/23 09/24/22 wihtsunldjwb-fjztsodc-tdjubl tablet 1 tab PO DAILY 09/25/22 05/12/23 09/24/22 carvedilol 3.125 mg tablet 3.125 mg PO BID 05/12/23 05/12/23 Unknown Active Medications Generic Name Dose Route Start Last Admin Trade Name Freq PRN Reason Stop Dose Admin Atorvastatin Calcium 40 mg 05/12/23 23:59 05/13/23 01:41 Atorvastatin 40 Mg Tab PO 06/11/23 23:58 40 mg QPM DESIREE Administration Cinacalcet 30 mg 05/13/23 09:00 05/13/23 09:28 Cinacalcet Hcl 30 Mg Tab PO 06/12/23 08:59 30 mg QAM DESIREE Administration Dextrose 25 - 50 ml 05/12/23 23:59 05/13/23 06:11 Dextrose 50% 50 Ml Syringe IV 06/11/23 23:58 25 ml UD PRN Administration Hypoglycemia Protocol Protocol Pantoprazole Sodium 40 mg/ 100 mls @ 20 mls/hr 05/12/23 20:00 05/13/23 07:56 Dextrose IV 06/11/23 19:59 8 mg/hr Q5H DESIREE 20 mls/hr Administration 8 MG/HR Ceftriaxone Sodium 1,000 mg/ 50 mls @ 100 mls/hr 05/12/23 20:00 05/13/23 00:07 Dextrose IV 05/22/23 19:59 Infused Q24H DESIREE Infusion Protocol Octreotide Acetate 500 mcg/ 100.5 mls @ 10.05 mls/hr 05/12/23 21:45 05/13/23 07:55 Sodium Chloride IV 06/11/23 21:44 50 mcg/hr .Q10H DESIREE 10.1 mls/hr Administration 50 MCG/HR Insulin Aspart 0 units 05/13/23 00:00 05/13/23 12:37 Insulin Aspart Per Unit Charge SC 06/12/23 00:00 Not Given Q6 DESIREE Melatonin 9 mg 05/12/23 23:59 05/13/23 01:41 Melatonin 3 Mg Tab PO 06/11/23 23:58 9 mg HS DESIREE Administration Past Medical History Medical History Hepatic cirrhosis History of ischemic colitis GI bleed pt unaware CHF (congestive heart failure) Anemia Osteoporosis GERD (gastroesophageal reflux disease) Hyperparathyroidism Hypertension Poor historian Abnormal EKG pt unaware Acute respiratory failure CVA (cerebral vascular accident) Jan 2022 per pt > has some right hand weakness > does not follow with neuro Weakness of right upper extremity s/p CVA, just on occasion Lumbago Other and unspecified hyperlipidemia Type 2 diabetes mellitus without complications Essential (primary) hypertension Coronary atherosclerosis of [place] coronary vessel Acute heart failure with preserved ejection fraction (HFpEF) pt unaware Acute respiratory failure with hypoxia pt unaware Exercise / Class Metabolic Activity II 4-5 Yardwork/Stairs/Walk up hill Past Family History Family History Mother , age 70 of a stroke and congestive heart failure Stroke CHF (congestive heart failure) Father , in his 70s of an [place] Myocardial infarction Past Surgical History Surgical History History of colonoscopy History of endovascular stent graft for abdominal aortic aneurysm unsure if this is exactly what she has, but had done in Apr 2022 at [place] she thinks it was for AAA S/P tonsillectomy S/P hysterectomy S/P appendectomy History of heart artery stent placed 1994 S/P cholecystectomy History of cataract surgery bilat Past Anesthesia History No Hx of Anesthesia Complications and No Family Hx of Anesthesia Complications History of PONV No Hx of PONV and No Hx of Motion Sickness Social History Smoking Status: Never smoker Do You Dip or Chew Tobacco: No Hx Alcohol Use: No Alcohol type: beer alcohol intake frequency: 0-2 drinks per day Hx Substance Use: No substance use type: does not use Physical Exam Vital Signs Last Vital Signs Temp 36.5 C 05/13/23 12:16 Pulse 75 05/13/23 12:16 Resp 18 05/13/23 12:16 BP 125/66 05/13/23 12:16 Pulse Ox 98 05/13/23 12:16 O2 Del Method Room Air 05/13/23 12:16 O2 Flow Rate 0 05/12/23 19:45 ENMT Mouth: + dentures Thyromental Distance: > or= 3.5 Finger Breadths Mallampati Class: II Neck normal visual inspection Respiratory normal respiratory effort Auscultation: lungs clear to auscultation bilaterally Cardiovascular Rate/Rhythm: regular rate and regular rhythm Psychiatric Orientation: alert Testing Laboratory Results 05/13/23 10:34 05/13/23 06:59 PT 14.2 Seconds (9.0-12.0) H 05/12/23 17:38 INR 1.3 (0.9-1.1) H 05/12/23 17:38 APTT 26 Seconds (21-31) 05/12/23 17:38 Blood Type A Positive 05/12/23 16:48 Antibody Screen NEGATIVE 05/12/23 16:48 05/13/23 05/13/23 05/13/23 12:09 06:19 06:01 POC Glucose 138 H 136 H 67 L*
[2023-05-13] MEDS ORDERED: fentaNYL citrate PF 100 MCG/2 ML VIAL IV PRN (13:50)
[2023-05-13] MEDS ORDERED: ATROPINE SULFATE 0.1 MG/ML 10ML SYR IV PRN (13:50)
[2023-05-13] MEDS ORDERED: ePHEDrine sulfate 50 MG/ML AMP IV PRN (13:50)
[2023-05-13] MEDS ORDERED: ONDANSETRON INJ 2 MG/ML 2 ML VIAL IV PRN (13:50)
--- NOTE | 2023-05-13 14:15 | GI REPORT ---
Patient Name: Martine Russell Procedure Date: 05/13/2023 12:44 PM Date of : 1940 Admit Type: Inpatient Age: 82 Gender: Female Attending MD: Rickey Pardo DO, Procedure: Upper GI endoscopy Providers: Rickey Pardo DO Referring MD: Rickey Pardo DO Indications: Acute post hemorrhagic anemia Medicines: Monitored Anesthesia Care Complications: No immediate complications. Estimated Blood Loss: Estimated blood loss: none. Procedure: Pre-Anesthesia Assessment: - Prior to the procedure, a History and Physical was performed, and patient medications and allergies were reviewed. The patient's tolerance of previous anesthesia was also reviewed. The risks and benefits of the procedure and the sedation options and risks were discussed with the patient. All questions were answered, and informed consent was obtained. Prior Anticoagulants: The patient has taken Plavix (clopidogrel), last dose was 2 days prior to procedure. ASA Grade Assessment: IV - A patient with severe systemic disease that is a constant threat to life. After reviewing the risks and benefits, the patient was deemed in satisfactory condition to undergo the procedure. After obtaining informed consent, the endoscope was passed under direct vision. Throughout the procedure, the patient's blood pressure, pulse, and oxygen saturations were monitored continuously. The Endoscope was introduced through the mouth, and advanced to the second part of duodenum. The upper GI endoscopy was accomplished without difficulty. The patient tolerated the procedure well. Findings: Grade II varices were found in the entire esophagus. Moderate portal hypertensive gastropathy was found in the gastric body. The examined duodenum was normal. Impression: - Grade II esophageal varices. - Portal hypertensive gastropathy. - Normal examined duodenum. - No specimens collected. Recommendation: - Return patient to [facility] for [facility] care. - Advance diet as tolerated to 2 g Na restricted diet. - Continue outpatient medications. - Stop Octreotide and Pantoprazole gtts. - Return to primary care physician as previously scheduled. Rickey Pardo DO 05/13/2023 2:14:44 PM This report has been signed electronically. Note Initiated On: 05/13/2023 12:44 PM Number of Addenda: 0 I attest to the content of the Intraoperative Record and orders documented therein, exceptions below {[id number]}
--- NOTE | 2023-05-13 14:23 | Anesthesiology Progress Note ---
Date of Service May 13, 2023 Anesthesia Post Procedure Vital Signs Vital Signs: Temp Pulse Pulse Pulse Resp BP BP 05/13/23 14:12 36.9 C 78 18 82/35 L 05/13/23 12:16 36.5 C 75 18 125/66 05/13/23 08:32 36.6 C 73 16 109/58 L 05/13/23 08:30 70 05/13/23 04:08 36.5 C 73 16 119/50 L 05/13/23 03:40 76 05/13/23 03:05 36.4 C L 74 15 137/64 05/13/23 03:00 36.4 C L 74 15 137/64 05/13/23 02:42 36.5 C 74 16 125/53 L 05/13/23 02:05 36.4 C L 75 16 120/62 05/13/23 01:35 36.3 C L 62 16 110/55 L 05/13/23 01:20 36.3 C L 71 16 122/54 L 05/13/23 01:01 36.3 C L 68 18 100/45 L 05/12/23 22:15 72 18 138/58 L 05/12/23 22:00 90 18 135/71 05/12/23 21:45 75 18 112/49 L 05/12/23 20:45 81 20 115/55 L 05/12/23 20:15 36.4 C 75 18 106/53 L 05/12/23 20:00 88 18 109/50 L 05/12/23 20:00 36.7 C 83 16 109/50 L 05/12/23 19:45 36.7 C 78 18 88/41 L 05/12/23 18:00 88 18 110/51 L 05/12/23 16:45 83 18 85/61 L 05/12/23 16:33 05/12/23 16:30 80 18 89/46 L 05/12/23 16:17 36.7 C 84 18 95/48 L Pulse Ox O2 Del Method O2 Flow Rate 05/13/23 14:12 100 Oxymask 6 05/13/23 12:16 98 Room Air 05/13/23 08:32 92 Room Air 05/13/23 08:30 05/13/23 04:08 96 05/13/23 03:40 05/13/23 03:05 95 05/13/23 03:00 95 Room Air 05/13/23 02:42 95 Room Air 05/13/23 02:05 97 05/13/23 01:35 99 05/13/23 01:20 95 05/13/23 01:01 98 05/12/23 22:15 98 05/12/23 22:00 100 Room Air 05/12/23 21:45 98 05/12/23 20:45 96 05/12/23 20:15 97 05/12/23 20:00 97 Room Air 05/12/23 20:00 95 05/12/23 19:45 99 0 05/12/23 18:00 98 Room Air 05/12/23 16:45 98 Room Air 05/12/23 16:33 98 Room Air 05/12/23 16:30 05/12/23 16:17 100 Room Air Transfer of Care Handoff Completed per policy Notes Mental Status: alert / awake / arousable Patient Amnestic to Procedure: Yes Nausea / Vomiting: adequately controlled Pain: adequately controlled Airway Patency, RR, SpO2: stable & adequate BP & HR: stable & adequate Hydration State: stable & adequate Anesthetic Complications: no major complications apparent
[2023-05-13 16:25] LABS: Basophils # (auto) 0.04 K/uL (0.00-0.20); Basophils % (auto) 1.1 %; Eosinophils # (auto) 0.12 K/uL (0.00-0.50); Eosinophils % (auto) 3.4 %; Hematocrit (blood only) 26.8 % (37.0-47.0); Immature Granulocytes # (auto) 0.01 K/uL (0.01-0.20); Immature Granulocytes % (auto) 0.3 %; Lymphocytes # (auto) 1.16 K/uL (1.20-3.40); Lymphocytes % (auto) 32.6 %; Mean Corpuscular Hemoglobin 28.8 pg (25.0-34.0); Mean Corpuscular Hgb Conc 33.6 g/dL (32.0-36.0); Mean Corpuscular Volume 85.6 fL (80.0-100.0); Mean Platelet Volume 11.4 fL (9.4-12.4); Monocytes # (auto) 0.38 K/uL (0.11-0.59); Monocytes % (auto) 10.7 %; Neutrophils # (auto) 1.85 K/uL (1.40-6.50); Neutrophils % (auto) 51.9 %; Platelet Count 106 K/uL (130-400); RDW Coefficient of Variation 18.7 % (11.5-14.5); RDW Standard Deviation 56.6 fL (36.4-46.3); Red Blood Count 3.13 M/uL (4.20-5.40); White Blood Count 3.56 K/ul (4.8-10.8)
--- NOTE | 2023-05-13 18:31 | Hospitalist Progress Note ---
Date of Service May 13, 2023 Assessment & Plan (1) Acute GI bleeding: Plan: per admitting service notes with addendum: Uncertain source, with mixed black blood and bright red blood when she wiped, considering UGIB in the differential-poss variceal bleed vs lower GI source such as diverticular bleed. She is on Plavix with h/o vascular disease. She does have a significant symptomatic acute blood loss anemia. Will start her on PPI and octreotide drip as well as Rocephin given known h/o varices. Hypotension is improved with NSS, giving blood now. Trend H/H. Will hold Plavix and keep NPO with GI consult. 05/13 Status post EGD: Impression: - Grade II esophageal varices. - Portal hypertensive gastropathy. - Normal examined duodenum. - No specimens collected. Recommendation: - Return patient to [facility] for ongoing care. - Advance diet as tolerated to 2 g Na restricted diet. - Continue outpatient medications. - Stop Octreotide and Pantoprazole gtts. - Return to primary care physician as previously scheduled. Start clear liquid diet Hemoglobin increased to 8 Monitor H&H every 6 hours 2 units packed RBCs and 1 unit platelets on hold (2) Acute blood loss anemia: Plan: 2/2 acute GI bleeding. Cont plan as noted above. (3) Hepatic cirrhosis: Plan: Known history of this, appears compensated. (4) History of ischemic colitis: Plan: per history. There is no abdominal discomfort at this time. Will consider abdominal imaging if this occurs, however, she has had frequent imaging recently including CTA a/p on 04/24. (5) HTN (hypertension): Plan: Hypotensive, will hold antihypertensives (6) Chronic heart failure with preserved ejection fraction (HFpEF): Plan: chronic, stable. Holding Lasix in setting of GI bleed and hypotension. (7) DM type 2 (diabetes mellitus, type 2): Plan: chronic, at goal. A1C recently was 7.4. Cont basal bolus insulin hwile hospitalized. (8) Coronary atherosclerosis of [place] coronary vessel: Plan: chronic, stable. Holding antiplatelet therapy given active bleeding. DVT proph-no chemoprophy 2/2 bleeding, SCDs/ Dispo-PCU DNR per patient discussion. Admission and Anticipated Discharge Date Admission Date: May 12, 2023 Subjective Follow-up for GI bleed, etc. Seen resting in bed, comfortable, not in distress States she feels weak otherwise okay No abdominal pain, nausea vomiting Still having some hematochezia/melena this morning No chest pain, palpitations, dizziness No other new symptoms Review of Systems Review of Systems: all noted and negative except for above Physical Exam Physical Exam: General- oriented x 3, not in distress, speaks in sentences with no effort or accessory muscle use Eyes- anicteric Neck- no JVD Lungs- clear breath sounds bilaterally, no crackles/wheezing Heart- normal rate, regular rhythm; no murmurs Abdomen- normal bowel sounds, nondistended, soft, nontender Extremities- no pretibial edema, no calf tenderness Neuro- alert, oriented x 3; no gross focal neurologic deficits Skin- warm & dry Results & Data Results & Data Vital Signs (Past 12 Hours) Vital Signs Temp Pulse Pulse Pulse Resp BP Pulse Ox 05/13/23 15:40 36.5 C 77 17 134/53 L 99 05/13/23 14:46 36.5 C 78 20 121/49 L 100 05/13/23 14:32 36.9 C 78 12 125/44 L 99 05/13/23 14:22 36.9 C 79 20 110/50 L 100 05/13/23 14:12 36.9 C 78 18 82/35 L 100 05/13/23 12:16 36.5 C 75 18 125/66 98 05/13/23 08:32 36.6 C 73 16 109/58 L 92 05/13/23 08:30 70 O2 Del Method O2 Flow Rate 05/13/23 15:40 Room Air 05/13/23 14:46 Room Air 05/13/23 14:32 Room Air 0 05/13/23 14:22 Room Air 0 05/13/23 14:12 Oxymask 6 05/13/23 12:16 Room Air 05/13/23 08:32 Room Air 05/13/23 08:30 all noted and reviewed including below
[2023-05-13] MEDS ORDERED: Nursing to Pharmacy Communication SCH (19:30)
[2023-05-13] MEDS: cefTRIAXone SODIUM 1,000 MG in DEXTROSE 5 % MINI-B 50 ML IV SCH (19:52)
[2023-05-13] MEDS: LANTUS PER UNIT CHARGE SQ SCH (20:33)
[2023-05-13 22:15] LABS: Basophils # (auto) 0.05 K/uL (0.00-0.20); Basophils % (auto) 1.3 %; Eosinophils # (auto) 0.17 K/uL (0.00-0.50); Eosinophils % (auto) 4.6 %; Hematocrit (blood only) 23.2 % (37.0-47.0); Hemoglobin 7.8 g/dl (12.0-16.0); Immature Granulocytes # (auto) 0.01 K/uL (0.01-0.20); Immature Granulocytes % (auto) 0.3 %; Lymphocytes # (auto) 1.07 K/uL (1.20-3.40); Lymphocytes % (auto) 28.7 %; Mean Corpuscular Hemoglobin 28.8 pg (25.0-34.0); Mean Corpuscular Hgb Conc 33.6 g/dL (32.0-36.0); Mean Corpuscular Volume 85.6 fL (80.0-100.0); Mean Platelet Volume 12.3 fL (9.4-12.4); Monocytes # (auto) 0.46 K/uL (0.11-0.59); Monocytes % (auto) 12.3 %; Neutrophils # (auto) 1.97 K/uL (1.40-6.50); Neutrophils % (auto) 52.8 %; Platelet Count 105 K/uL (130-400); RDW Coefficient of Variation 18.7 % (11.5-14.5); RDW Standard Deviation 56.5 fL (36.4-46.3); Red Blood Count 2.71 M/uL (4.20-5.40); White Blood Count 3.73 K/ul (4.8-10.8)
[2023-05-13 22:36] LABS: RBC Morphology Unremarkable
[2023-05-14] MEDS: PANTOprazole 40 MG in DEXTROSE 5% MINI-B 100 ML IV SCH ×3 (02:33→11:45)
[2023-05-14 06:37] LABS: Basophils # (auto) 0.05 K/uL (0.00-0.20); Basophils % (auto) 1.3 %; Eosinophils # (auto) 0.18 K/uL (0.00-0.50); Eosinophils % (auto) 4.8 %; Hematocrit (blood only) 25.5 % (37.0-47.0); Hemoglobin 8.6 g/dl (12.0-16.0); Immature Granulocytes # (auto) 0.01 K/uL (0.01-0.20); Immature Granulocytes % (auto) 0.3 %; Lymphocytes # (auto) 1.24 K/uL (1.20-3.40); Lymphocytes % (auto) 32.9 %; Mean Corpuscular Hemoglobin 28.9 pg (25.0-34.0); Mean Corpuscular Hgb Conc 33.7 g/dL (32.0-36.0); Mean Corpuscular Volume 85.6 fL (80.0-100.0); Mean Platelet Volume 11.9 fL (9.4-12.4); Monocytes # (auto) 0.43 K/uL (0.11-0.59); Monocytes % (auto) 11.4 %; Neutrophils # (auto) 1.86 K/uL (1.40-6.50); Neutrophils % (auto) 49.3 %; Platelet Count 122 K/uL (130-400); RDW Coefficient of Variation 18.8 % (11.5-14.5); RDW Standard Deviation 57.3 fL (36.4-46.3); Red Blood Count 2.98 M/uL (4.20-5.40); White Blood Count 3.77 K/ul (4.8-10.8)
[2023-05-14 07:00] LABS: Albumin Level 2.5 gm/dl (3.4-5.0); BUN Creatinine Ratio 28.1 (10-20); Bilirubin,Total 1.2 mg/dl (0.2-1.0); Creatinine Clr Calc Pharmacy 29.6 ml/min; Est GFR (African American) 40.8 ml/min; Est GFR (Non-African American) 35.2 ml/min; Globulin 2.4 gm/dl (2.5-4.0); Potassium 3.8 mmol/L (3.5-5.1); Total Protein 4.9 gm/dl (6.0-8.3)
[2023-05-14] MEDS: CINACALCET HCL 30 MG TAB PO SCH (07:39)
[2023-05-14] MEDS: LANTUS PER UNIT CHARGE SQ SCH (07:42)
[2023-05-14] MEDS: INSULIN ASPART PER UNIT CHARGE SC SCH ×2 (07:42→11:40)
--- NOTE | 2023-05-14 18:25 | Discharge Summary ---
Discharge Summary Date of Service May 14, 2023 delayed entry date of service noted above Notes For Next Care Provider Medication Changes From Visit HOLD PLAVIX UNTIL YOU ARE SEEN BY YOUR PRIMARY CARE PHYSICIAN ON FOLLOW UP THIS WEEK. Admission HPI Per Admitting Provider 81-year-old female with a history of cirrhosis, type 2 diabetes HFpEF, SMA stenosis with stent placement, hypertension, history of CVA and history of recurrent GI bleed presents with rectal bleeding. She was previously admitted to this hospital from 04/24 through 04/25 for GI bleed and colitis. An EGD was negative for upper GI bleed but did reveal grade 2 esophageal varices. A nuclear med scan was negative. She was transfused 3U blood and GI was consulted. She was treated with PPI bolus and drip and octreotide bolus and drip with Plavix held. She was ultimately transferred to [facility] given concern for lower GI source and history of ischemic colitis with SMA stent. GI evaluated the patient and she underwent a colonoscopy on 04/27 revealing diverticulosis with old blood and no active bleeding. There was no evidence of recurrent ischemic colitis. After the procedure she had no additional evidence of hematochezia. She remained hemodynamically stable and her hemoglobin remained stable. She was restarted on her Plavix. She felt well after discharge but maintained that she was weak and fatigued with cold intolerance. She reports Nausea/vomiting x 12 hours on 05/09. Relatives also were sick. Recovered from that illness later that night but remained weak and sleepy but not sick. Denied abdominal pain. Reports black stool that started this morning around 1000. She is on iron supplementation. Poor appetite generally. She returns today for an evaluation of lower GI bleeding. She is hypotensive and hemoglobin is 7 down from 8.4 on 05/10, 2 days ago. Notably after discharge on 04/28 her hemoglobin was 11.1. She did follow-up with her PCP on 05/10 and reported fatigue that was ongoing. She is diaphoretic. BP 85/61 P83 (on Coreg) and was improved to 103 systolic after receiving 250cc NSS in the ER. Admission Exam Per Admitting Provider CONSTITUTIONAL: WNWD, vitals as above, generally appears diaphoretic and weak but in NAD. EYES: normal conjunctivae, no scleral icterus ENT: external ear and nose normal, MMM NECK: trachea midline RESPIRATORY: clear to auscultation bilaterally, no crackles, rales or wheezes, normal respiratory effort CARDIOVASCULAR: regular rate and rhythm, S1 and 2 heard without murmurs, gallops or rubs, no JVD, no peripheral edema CHEST: inspection of chest was normal GASTROINTESTINAL: soft, nontender, ND, no guarding MUSCULOSKELETAL: generalized weakness, cannot sit up independently, head is normocephalic and atraumatic SKIN: warm and slightly diaphoretic. NEUROLOGIC: CN 2-12 grossly intact, no sensory deficit, normal cognition, normal speech, no tremor PSYCHIATRIC: alert cooperative and oriented to person, place and time. Euthymic mood, makes good eye contact, language grossly intact, recent and remote memory grossly intact. Principal Dx & Hospital Course #1 = Principal Diagnosis (1) Acute GI bleeding: per admitting service notes with addendum: Uncertain source, with mixed black blood and bright red blood when she wiped, considering UGIB in the differential-poss variceal bleed vs lower GI source such as diverticular bleed. She is on Plavix with h/o vascular disease. She does have a significant symptomatic acute blood loss anemia. Will start her on PPI and octreotide drip as well as Rocephin given known h/o varices. Hypotension is improved with NSS, giving blood now. Trend H/H. Will hold Plavix and keep NPO with GI consult. 05/13 Status post EGD: Impression: - Grade II esophageal varices. - Portal hypertensive gastropathy. - Normal examined duodenum. - No specimens collected. Recommendation: - Return patient to [facility] for ongoing care. - Advance diet as tolerated to 2 g Na restricted diet. - Continue outpatient medications. - Stop Octreotide and Pantoprazole gtts. - Return to primary care physician as previously scheduled. Start clear liquid diet Hemoglobin increased to 8 after 2 units pRBC Monitor H&H every 6 hours 05/14 Hg stable no recurrence of melena, hematochezia patient requesting to go home hold Plavix until ff up with PCP in 1 week (2) Acute blood loss anemia: 2/2 acute GI bleeding. Cont plan as noted above. (3) Hepatic cirrhosis: Known history of this, appears compensated. (4) History of ischemic colitis: per history. There is no abdominal discomfort at this time. Will consider abdominal imaging if this occurs, however, she has had frequent imaging recently including CTA a/p on 04/24. (5) HTN (hypertension): Hypotensive, will hold antihypertensives (6) Chronic heart failure with preserved ejection fraction (HFpEF): chronic, stable. Holding Lasix in setting of GI bleed and hypotension. (7) DM type 2 (diabetes mellitus, type 2): chronic, at goal. A1C recently was 7.4. Cont basal bolus insulin hwile hospitalized. (8) Coronary atherosclerosis of [place] coronary vessel: chronic, stable. Plavix on hold until ff up with PCP DVT proph-no chemoprophy 2/2 bleeding, SCDs/ Dispo-PCU DNR per patient discussion. Discharge Exam General- oriented x 3, not in distress, speaks in sentences with no effort or accessory muscle use Eyes- anicteric Neck- no JVD Lungs- clear breath sounds bilaterally, no rales/wheezes Heart- normal rate, regular rhythm; no murmurs Abdomen- normal bowel sounds, nondistended, soft, nontender Extremities- no pretibial edema, no calf tenderness Neuro- alert, oriented x 3; no gross focal neurologic deficits Skin- warm & dry Updated Medication List Medication Instructions Recorded Confirmed Type alendronate 70 mg tablet 70 mg PO SERRANO@0900 01/22/22 05/12/23 History biotin 1 mg tablet 1 mg PO DAILY 01/22/22 05/12/23 History cinacalcet 30 mg tablet (Sensipar) 30 mg PO QAM 01/22/22 05/12/23 History glucosamine-chondroitin 250 mg-200 1 tab PO DAILY 01/22/22 05/12/23 History mg tablet (Osteo Bi-Flex) insulin human U-100 NPH-regulr See Rx Instructions .Route .COMPLEX 01/22/22 05/12/23 History 70-30 mix 100 unit/mL subcutaneous susp (Novolin 70/30 U-100 Insulin) losartan 25 mg tablet 25 mg PO QAM 01/22/22 05/12/23 History metformin 1,000 mg tablet 1,000 mg PO BID 01/22/22 05/12/23 History vitamin B complex 1 tab PO DAILY 01/22/22 05/12/23 History magnesium oxide 400 mg (241.3 mg 400 mg PO DAILY #60 tabs 01/29/22 05/12/23 Rx magnesium) tablet atorvastatin 40 mg tablet 40 mg PO QPM 08/19/22 05/12/23 History furosemide 40 mg tablet (Lasix) 60 mg PO QAM 08/19/22 05/12/23 History pantoprazole 40 mg tablet,delayed 40 mg PO QAM 08/19/22 05/12/23 History release clopidogrel 75 mg tablet (Plavix) 75 mg PO DAILY 09/25/22 05/12/23 History epinephrine 0.3 mg/0.3 mL 0.3 mg IM DIRECTED PRN Allergic 09/25/22 05/12/23 History injection, auto-injector (EpiPen) Reaction iron,carbonyl 65 mg-vitamin C 125 1 tab PO QDD 09/25/22 05/12/23 History mg tablet,delayed release (Vitron-C) melatonin 10 mg tablet 10 mg PO HS 09/25/22 05/12/23 History hcukzaoxaoup-hliidrfv-unmsyn tablet 1 tab PO DAILY 09/25/22 05/12/23 History carvedilol 3.125 mg tablet 3.125 mg PO BID 05/12/23 05/12/23 History Hospital Stay Data Consultations 05/12/23 18:10 ED Decision to Admit Stat 05/12/23 23:59 Consult Gastroenterology Routine Procedures Performed Laboratory Results WBC 3.77 K/ul (4.8-10.8) L 05/14/23 06:03 RBC 2.98 M/uL (4.20-5.40) L 05/14/23 06:03 Hgb 8.6 g/dl (12.0-16.0) L 05/14/23 06:03 Hct 25.5 % (37.0-47.0) L 05/14/23 06:03 MCV 85.6 fL (80.0-100.0) 05/14/23 06:03 MCH 28.9 pg (25.0-34.0) 05/14/23 06:03 MCHC 33.7 g/dL (32.0-36.0) 05/14/23 06:03 RDW Std Deviation 57.3 fL (36.4-46.3) H 05/14/23 06:03 RDW Coeff of Vanita 18.8 % (11.5-14.5) H 05/14/23 06:03 Plt Count 122 K/uL (130-400) L 05/14/23 06:03 MPV 11.9 fL (9.4-12.4) 05/14/23 06:03 Immature Gran % (Auto) 0.3 % 05/14/23 06:03 Neut % (Auto) 49.3 % 05/14/23 06:03 Lymph % (Auto) 32.9 % 05/14/23 06:03 Isabela % (Auto) 11.4 % 05/14/23 06:03 Eos % (Auto) 4.8 % 05/14/23 06:03 Baso % (Auto) 1.3 % 05/14/23 06:03 Neut # (Auto) 1.86 K/uL (1.40-6.50) 05/14/23 06:03 Lymph # (Auto) 1.24 K/uL (1.20-3.40) 05/14/23 06:03 Isabela # (Auto) 0.43 K/uL (0.11-0.59) 05/14/23 06:03 Eos # (Auto) 0.18 K/uL (0.00-0.50) 05/14/23 06:03 Baso # (Auto) 0.05 K/uL (0.00-0.20) 05/14/23 06:03 Immature Gran # (Auto) 0.01 K/uL (0.01-0.20) 05/14/23 06:03 RBC Morphology Unremarkable 05/13/23 21:47 Polychromasia 1+ 05/12/23 16:30 Poikilocytosis Present 05/12/23 16:30 Anisocytosis Present 05/12/23 16:30 Acanthocytes (Spur) 1+ 05/12/23 16:30 PT 14.2 Seconds (9.0-12.0) H 05/12/23 17:38 INR 1.3 (0.9-1.1) H 05/12/23 17:38 APTT 26 Seconds (21-31) 05/12/23 17:38 PTT Ratio 0.9 05/12/23 17:38 Sodium 139 mmol/L (136-145) 05/14/23 06:03 Potassium 3.8 mmol/L (3.5-5.1) 05/14/23 06:03 Chloride 108 mmol/L (98-107) H 05/14/23 06:03 Carbon Dioxide 25 mmol/L (21-32) 05/14/23 06:03 Anion Gap 6 (3-11) 05/14/23 06:03 BUN 39 mg/dl (6-23) H 05/14/23 06:03 Creatinine 1.39 mg/dl (0.6-1.2) H 05/14/23 06:03 Est Cr Clr Drug Dosing 29.6 ml/min 05/14/23 06:03 Est GFR ( Amer) 40.8 ml/min 05/14/23 06:03 Est GFR (Non-Af Amer) 35.2 ml/min 05/14/23 06:03 BUN/Creatinine Ratio 28.1 (10-20) H 05/14/23 06:03 Glucose 141 mg/dl (70-99(Fasting)) H 05/14/23 06:03 POC Glucose 215 mg/dl (70-99) H 05/14/23 11:24 Calcium 8.0 mg/dl (8.6-10.3) L 05/14/23 06:03 Total Bilirubin 1.2 mg/dl (0.2-1.0) H 05/14/23 06:03 AST 40 U/L (13-39) H 05/14/23 06:03 ALT 26 U/L (7-52) 05/14/23 06:03 Alkaline Phosphatase 39 U/L (34-104) 05/14/23 06:03 Troponin I High Sens 12.5 pg/ml (0-14) 05/12/23 16:30 Total Protein 4.9 gm/dl (6.0-8.3) L 05/14/23 06:03 Albumin 2.5 gm/dl (3.4-5.0) L 05/14/23 06:03 Globulin 2.4 gm/dl (2.5-4.0) L 05/14/23 06:03 Albumin/Globulin Ratio 1.0 (0.9-2) 05/14/23 06:03 Lipase 31 U/L (11-82) 05/12/23 16:30 Blood Type A Positive 05/12/23 16:48 Antibody Screen NEGATIVE 05/12/23 16:48 Crossmatch See Detail 05/12/23 16:48 Impressions Chest X-Ray 05/12/23 15:58 XR chest 1V portable HISTORY: 82 years-old Female GIB acute GI bleed COMPARISON: Chest radiograph 05/05/2022 TECHNIQUE: AP view of the chest FINDINGS: Cardiac mediastinal and hilar silhouettes are within normal limits. No pneumothorax, pleural effusion or airspace consolidation. The bones of the chest appear grossly intact. Mitral annular calcifications. IMPRESSION: No acute process. ACT 112: Negative or not required by law. The above report was generated using voice recognition software. It may contain grammatical, syntax or spelling errors. Electronically signed by: Abhay Smart M.D. 05/12/2023 4:41 PM Operation Date: 05/13/23 14:00 Actual Procedures p Esophagogastroduodenoscopy - Rickey Lockhart Case, DO Findings: Grade II varices were found in the entire esophagus. Moderate portal hypertensive gastropathy was found in the gastric body. The examined duodenum was normal. Impression: - Grade II esophageal varices. - Portal hypertensive gastropathy. - Normal examined duodenum. - No specimens collected. Recommendation: - Return patient to [facility] for ongoing care. - Advance diet as tolerated to 2 g Na restricted diet. - Continue outpatient medications. - Stop Octreotide and Pantoprazole gtts. - Return to primary care physician as previously scheduled. Rickey Lockhart Case, DO 05/13/2023 2:14:44 PM This report has been signed electronically. Note Initiated On: 05/13/2023 12:44 PM Number of Addenda: 0 I attest to the content of the Intraoperative Record and orders documented therein, exceptions below Pending Results Patient Have Any Pending Studies at Discharge: Yes Discharge Instructions Given to Patient (Per Discharging Provider) HOLD PLAVIX UNTIL YOU ARE SEEN BY YOUR PRIMARY CARE PHYSICIAN ON FOLLOW UP THIS WEEK. NO NSAIDS INCLUDING IBUPROFEN, NAPROXEN, ETC. DRINK PLENTY OF WATER. PLEASE CALL YOUR PRIMARY CARE PHYSICIAN OR RETURN TO THE ER IF WITH WORSENING OF SYMPTOMS, INCLUDING BLACK/BLOODY STOOLS, ABDOMINAL PAIN, NAUSEA/VOMITING, FEVER/CHILLS, ETC FOLLOW UP WITH PRIMARY CARE PHYSICIAN IN 1 WEEK. THE CLINIC WILL BE CALLING YOU SOON FOR THE APPOINTMENT. Total Time Total Time Spent Total Time Spent (In Minutes): >30 minutes
== END 2023-05-14 15:58 | disposition home or self-care (01) | DRG 378 ==
LOC: ED 15:05 → SUATTDRO 18:36 → 2S 18:36

== ENCOUNTER 2023-06-01 02:18 | Inpatient (IN) ==
--- OUTSIDE RECORDS SUMMARY | 2023-06-01 02:26 | External Medical Summary | Summary of Care ---
Author Name Unknown Organization [facility] Address [address] [place] [address] Phone [phone] Care Team Providers Care Manufacturer Name Role Phone Alexy Al MD Primary Care Provider [phone]- [phone] Encounter Details Date Type Department Care Team (Late st Contact Info) Description 05/18/2023 Telephone Family Practice [facility] [address] [place] [address] Aurea Britton MD [address] [place] [address] Allergies No known active allergiesdocumented as of this encounter (statuses as of 05/25/2023) Medications Medication Sig Dispensed Refills Start Date [...] Additional Information Patient not taking.Reported on 09/22/2022 EPINEPHrine (Anaphylaxis) 1 MG/ML Injection Solution Inject [...] Additional Information Patient not taking.Reported on 05/04/2023 Magnesium Oxide -Mg Supplement 400 MG Oral Capsule TAKE ONE CAPSULE BY MOUTH EVERY MORNING 90 Capsule 1 10/11/2022 4 Active Insulin Syringe-Needle U-100 30G X 5/16" 1 ML USE TO INJECT INSULIN TWICE DAILY 200 Each 1 08/31/2022 4 Active Glucose Blood In Vitro Strip USE TO TEST BLOOD SUGAR TWICE DAILY 200 Strip 1 08/31/2022 4 Active OneTouch Delica Plus [id number] USE TO TEST BLOOD SUGAR TWICE DAILY 400 Each 1 08/31/2022 4 Active NovoLIN 70/30 (70-30) 100 UNIT/ML Subcutaneous SuspensionIndicati ons:Type 2 diabetes mellitus with hemoglobin A1c goal of less than 8.0% (HCC) INJECT 25 UNITS SUBCUTANEOUSLY BEFORE BREAKFAST AND INJECT 10 UNITS BEFORE SUPPER. 40 mL 08/31/2022 4 Active metFORMIN HCl 1000 MG [...] MORNING. 100 Tablet 1 03/23/2023 4 Active Losartan Potassium 25 MG Oral Tablet (Cozaar)Indication s:HTN, goal below 140/90 TAKE ONE TABLET BY MOUTH IN THE MORNING 100 Tablet 3 04/28/2023 4 Active Carvedilol 3.125 MG Oral Tablet (Coreg) Take 1 Tablet by mouth 2 times a day with morning and evening meals. 60 Tablet 1 04/28/2023 Active Pantoprazole Sodium 40 MG Oral Tablet Delayed Release (Protonix) TAKE ONE TABLET BY MOUTH IN THE MORNING 100 Tablet 1 05/12/2023 4 Active Torsemide 20 MG Oral Tablet (Demadex) Take 2 Tablets by mouth in the morning. 60 Tablet 5 05/18/2023 Active documented as of this encounter (statuses as of 05/25/2023) Active Problems Problem Noted Date Diagnosed Date Chronic heart failure with preserved ejection fr action 05/18/2023 Esophageal varices without bleeding 05/10/2023 Gastrointestinal hemorrhage associated with intestinal diverticulosis 04/26/2023 Hypertensive HF (heart failure) 03/28/2023 Superior mesenteric artery stenosis 08/03/2022 Cellulitis of right lower extremity 07/12/2022 Last Assessment & Plan: Begin Keflex 500 mg three times daily x7 days -recheck later this week Hepatic cirrhosis 05/20/2022 Last Assessment & Plan: Following with hepatology Grade 2 esophageal varices Continue to encourage alcohol cessation Hyponatremia 05/20/2022 Last Assessment & Plan: Pt [...] repeat CT. Coronary artery disease invo lving [place] heart without angina pectoris 05/08/2022 Last Assessment & Plan: Denies any chest pain Continue asa and statin, also on metoprolol (HFpEF) heart failure with preserved ejection fr action 05/08/2022 Last Assessment & Plan: "RED FLAG" HF Symptoms: Leg Swelling (Examples: "I can't wear certain socks or shoes", "My pants feel tight") Abdominal Bloating (Examples: "I can't wear certain pants", "My belly feels hard", "I look ") Decreased appetite (Examples: "I don't feel like eating at all", "I feel full") Medication Regimen: Beta Kylie Therapy: Carvedilol YURI Inhibitor/ARB Therapy: Losartan Diuretic therapy: Torsemide SGLT2 Inhibitor: No Current SGLT2 (Describe in the Comments) Remote Patient Monitoring Vendor: No Connected RPM Device(s): No current devices Self - Management Plan Double dose of Torsemide for 3 days Exacerbation Plan BMP Chest X-Ray Additional Comments: Recently switched from lasix to torsemide 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 Last Assessment & Plan: [...] of inactive term Vitamin D deficiency 10/16/2012 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 Last Assessment & Plan: "RED FLAG" Diabetic symptoms: Confusion and Vision Changes Goal HgbA1c <8 Diabetic Complications Renal (example: CKD, Proteinuria, Dialysis) Medication Regimen Metformin Basal/Long Acting Insulin Bolus/Short Acting Insulin DM Secondary Prevention YURI Inhibitor / ARB Moderate-High Intensity Statin Additional Comments Last A1c 7.6 Dyslipidemia, goal LDL below 100 03/07/2011 Last Assessment & Plan: Continue atorvastatin Component Latest Ref Rng 03/07/2022 Triglycerides <=174 mg/dL 99 Cholesterol <200 mg/dL 120 HDL Cholesterol >49 mg/dL 42 (L) Non-HDL Cholesterol <=159 mg/dL 78 LDL Cholesterol <=129 mg/dL 58 (L) Low Hyperparathyroidism, primary 12/15/2009 Visual field loss, 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 documented as of this encounter (statuses as of 05/25/2023) Resolved Problems Problem Noted Date Diagnosed Date [...] 04/22/2013 Overview: ICD-10 update of inactive term Non-toxic multinodular goiter 10/16/2012 05/19/2023 Dyslipidemia, goal to be determined 12/15/2009 03/07/2011 Type 2 diabetes mellitus wit h hemoglobin A1c goal of less than 7.0% 12/15/2009 01/23/2013 Overview: ICD-10 update of inactive term documented as of this encounter (statuses as of 05/25/2023) Immunizations Name Administration Dates Next Due COVID-19 [...] Former Cigarettes 3 48 Q uit: 07/23/2006 Passive Smoke Exposure: Past Smokeless Tobacco: Never Alcohol Use Standard Drinks/Week [...] encounter Miscellaneous Notes * Telephone Encounter - Aurea Britton MD - 05/25/2023 7:41 AM EST Please request eye exam record from Dr Moreno * Telephone Encounter - Jen Walker OSA - 05/24/2023 1:21 PM EST Patient states that she has already had this exam with Dr. Da Silva last week. * Telephone Encounter - Aurea Britton MD - 05/18/2023 12:25 PM EST Saw pt today for hospital f/u No active bleeding sign plavix on hold due to recurrent GI bleeding since last month But ok to resume plavix from today based on report Pt was drinking beer daily still although pt has known liver cirrhosis Pt is f/u with PCP in jun, please check out her alcohol drinking on routine check up And ordered eye exam Pt coming in on Monday for blood test Please get eye test too as nurse visit on Monday documented in this encounter Plan of Treatment Upcoming Encounters Date Type Department Care Team (Late st Contact Info) Description 05/31/2023 12:10 PM EST Office Visit Vascular Surgery, [facility] [address] [facility] [place] [address] Jonathan Iverson MD [address] [place] [address] 06/05/2023 12:30 PM EST Home Visit [facility] [address] [facility] [place] [id number] Cheryl Ruiz RN [address] [facility] [place] [address] 07/06/2023 2:20 PM EST [address] [phone] Alexy Al MD [address] [place] [address] 08/17/2023 12:40 PM EDT Office Visit Hepatology, [facility] [address] [facility] [place] [address] Dayan Sanford DO [address] [facility] [place] [address] 10/06/2023 10:40 AM EDT Office Visit [address] [place] [phone] Alexy lA MD [address] [place] [address] Health Maintenance Due Date Last Done Comments Hepatitis B (1 of 3 - Risk 3-dose series) 2000 Diabetic Eye Exam 01/03/2023 01/03/2022, , 2019, Additional history exists COVID-19 Vaccine ( season) 2023 03/10/2021, 08/27/2020, 08/06/2020 Depression Screening 03/14/2023 03/14/2022 B-12 07/04/2023 07/04/2022, 01/2023, 01/27/2021, Additional history exists HbA1c 09/26/2023 03/28/2023, 11/13, 09/05/2022, Additional history exists Albumin/Creatinine Ratio 03/28/2024 023, 08/18/2021, 10/29/2019, Additional history exists GFR 05/10/2024 05/10/2023, 04/14, 04/27/2023, Additional history exists Diabetic Foot Exam 05/18/2024 05/18/2023, 1 05/20/2018, 03/13/2018, Additional history exists DTaP,Tdap,and Td Vaccines (2 - Td or Tdap) 06/05/2024 06/05/2014 DXA Scan 11/28/2024 11/28/2022, 12/05/2018, 12/07/2016, Additional history exists Pneumococcal Vaccine: 65+ Years Completed 06/04/2015, 07/29/2008 VITAMIN D LEVEL ONCE IN A LIFETIME-USE SMARTSET# [id number] Completed 01/27/2021, 08/21/2017, 03/08/2017, Additional history exists [...] this encounter Medical Devices Implanted Type Area Sewage Disposal Engineer Device Identifier Shelf Expiration Date Model / Serial / Lot Stent Graft [id number] - [id number] - [id number] Implanted:Qty: 1 on 05/09/2022 by Cedrick Phillips MD at [facility] [place] : MARTIN [id number] 02/11/2025 [id number] / [id number] / [id number] documented as of this encounter Advance Directives [...] Advance Directives occurred with: Patient Care Teams Manufacturer Relationship Specialty Start Date End Date Alexy Al MD [address] [place] [address] PCP - General 07/29/08 documented as of this encounter
--- OUTSIDE RECORDS SUMMARY | 2023-06-01 02:26 | External Medical Summary | Summary of Care ---
Author Name Unknown Organization [facility] Address [address] [place] [address] Phone [phone] Care Team Providers Care Dough Panner Name Role Phone Alexy Al MD Primary Care Provider [phone] Reason for Visit * Reason Comments Hospital Follow-Up They stopped her Yeyo vix in the hospital suppose find out today from doctor if to restart Encounter Details Date Type Department Care Team (Latest Contact Info) Description 05/18/2023 11:20 AM EST Office Visit [facility] [address] [place] [address] Aurea Britton MD [address] [place] [address] Gastrointestinal hemorrhage, unspecified gastrointestinal hemorrhage type*; DM type 2 nursing care encounter (HCC); Esophageal varices without bleeding, unspecified esophageal varices type (HCC); Type 2 diabetes mellitus with diabetic nephropathy, with long-term current use of insulin (HCC); Chronic heart failure with preserved ejection fraction (HCC); Superior mesenteric artery stenosis (HCC); Hyperparathyroidism, primary (HCC); HTN, goal below 140/90; Atherosclerosis of little shell tribe coronary artery without angina pectoris, unspecified whether little shell tribe or transplanted heart; Dyslipidemia, goal LDL below 100; Cirrhosis of liver without ascites, unspecified hepatic cirrhosis type (HCC); Portal hypertension (HCC); Hypertensive HF (heart failure) (HCC) Allergies No known active allergiesdocumented as of this encounter (statuses as of 05/22/2023) Medications Medication Sig Dispensed Refills Start Date [...] MOUTH EVERY MORNING 90 Capsule 1 3 024 Active Insulin Syringe-Needle U-100 30G X 5/16" 1 ML USE TO INJECT INSULIN TWICE DAILY 200 Each 3 024 Active Glucose Blood In Vitro Strip USE TO TEST BLOOD SUGAR TWICE DAILY 200 Strip 3 024 Active OneTouch Delica Plus [id number] USE TO TEST BLOOD SUGAR TWICE DAILY 400 Each 3 024 Active NovoLIN 70/30 (70-30) 100 UNIT/ML Subcutaneous SuspensionIndicat ions:Type 2 diabetes mellitus with hemoglobin A1c goal of less than 8.0% (HCC) INJECT 25 UNITS SUBCUTANEOUSLY BEFORE BREAKFAST AND INJECT 10 UNITS BEFORE SUPPER. 40 mL 1 3 024 Active metFORMIN HCl 1000 MG Oral Tablet (Glucophage)Indic ations:Type 2 diabetes mellitus with hemoglobin A1c goal of less than 7.0% (HCC) TAKE ONE TABLET BY MOUTH IN THE MORNING AND ONE TABLET BEFORE BEDTIME WITH FOOD. 200 Tablet 1 3 024 Active Clopidogrel Bisulfate 75 MG Oral Tablet (pLAVix) Take 1 Tablet by mouth in the morning. 100 Tablet 3 3 Active Alendronate Sodium 70 MG Oral Tablet (Fosamax) TAKE ONE TABLET BY MOUTH ONCE A WEEK WITH 8OZ OF WATER 30 MINUTES BEFORE THE FIRST MEAL OF THE DAY. REMAIN UPRIGHT FOR 30 MINUTES AFTER TAKING TABLET 12 Tablet 1 3 024 Active Atorvastatin Calcium 40 MG Oral Tablet (Lipitor)Indicati ons:Dyslipidemia, goal LDL below 100 TAKE ONE TABLET BY MOUTH EVERY AFTERNOON 100 Tablet 3 3 024 Active OneTouch Verio w/Device Kit Use up to 4 times a day E11.9 E11.29 1 Kit 0 3 Active Cinacalcet HCl 30 MG Oral Tablet (Sensipar)Indicat ions:Hyperparathy roidism, primary (HCC) TAKE ONE TABLET BY MOUTH IN THE MORNING. 100 Tablet 1 3 024 Active Losartan Potassium 25 MG Oral Tablet (Cozaar)Indicatio ns:HTN, goal below 140/90 TAKE ONE TABLET BY MOUTH IN THE MORNING 100 Tablet 3 3 024 Active Carvedilol 3.125 MG Oral Tablet (Coreg) Take 1 Tablet by mouth 2 times a day with morning and evening meals. 60 Tablet 1 3 Active Pantoprazole Sodium 40 MG Oral Tablet Delayed Release (Protonix) TAKE ONE TABLET BY MOUTH IN THE MORNING 100 Tablet 1 3 024 Active Torsemide 20 MG Oral Tablet (Demadex) Take 2 Tablets by mouth in the morning. 60 Tablet 5 4 Active Dexamethasone Sodium Phosphate 4 MG/ML Injection Solution (Decadron) Inject 8 mg intravenously as needed for Anaphylaxis (severe allergic reaction) (To be administered in the event of anaphylactic reaction per [facility]IS IV iron anaphylaxis protocol). 2 mL 11 3 024 Discontinued Zoster Vac Recomb Adjuvanted 50 MCG/0.5ML Intramuscular Suspension Reconstituted (Shingrix)Indicat ions:Need for vaccination for zoster Inject 0.5 mL into a large muscle now and repeat dose in 60 to 180 days 1 Each 1 3 024 Discontinued Furosemide 40 MG Oral Tablet (Lasix)Indication s:Chronic heart failure with preserved ejection fraction (HCC) Take 1.5 Tablets by mouth in the morning. 135 Tablet 1 3 024 Discontinued documented as of this encounter (statuses as of 05/22/2023) Active Problems Problem Noted Date Diagnosed Date [...] reported she wanted to sleep after visit. Maedlyn reports they were made aware of this finding. Recommendation is for repeat CT chest in 6 months. She will discuss with pt and let either [facility] or pcp know if she wishes to pursue repeat CT. Coronary artery disease invo lving little shell tribe heart without angina pectoris 05/08/2022 Last Assessment [...] as of this encounter (statuses as of 05/22/2023) Resolved Problems Problem Noted Date Diagnosed Date Resolved Date Mesenteric ischemia 08/03/2022 04/28/20 Aortic atherosclerosis 05/20/202207/14 Overview: duplicate Last Assessment [...] as of this encounter (statuses as of 05/22/2023) Immunizations Name Administration Dates Next Due COVID-19 mRNA, LNP-s, No Pre serve, 2-Dose Series (Basha) 03/10/2021,08/27/2020,08/06/2020 Pneumococcal Conjugate Vacc, 13 Valent (Prevnar) [...] Passive Smoke Exposure: Past Smokeless Tobacco: Never Tobacco Cessation:Counseling Given: Not [...] Sign Reading Time Taken Comments Blood Pressure 100/54 05/18/2023 11:22 AM EST Pulse 89 05/18/2023 11:22 AM EST Temperature 36.3 C (97.3 F) 05/18/2023 11:[address] Respiratory Rate 18 05/18/2023 11:22 AM EST Oxygen Saturation 100% 05/18/2023 11:22 AM EST Inhaled Oxygen Concentration - - Weight 71.9 kg (158 lb 9.6 oz) 05/18/2023 11:22 AM EST Height - - Body Mass Index 28.09 04/26/2023 1:17 AM EST documented in this [...] this encounter Patient Instructions * Patient Instructions* Delores Barkley LPN - 05/18/2023 11:16 AM EST Diabetes: Keeping Feet Healthy Inspect your feet every day for signs of a problem. Diabetes can damage nerves in your feet and cause neuropathy. This condition makes it hard for you to feel injuries or sore spots. Diabetes can also change blood flow, making it harder for small problems, like a blister, to heal properly. In fact, minor injuries can quickly become serious infections that send you to the hospital. Practice self-care to protect your feet and keep them healthy. Take Special Care Inspect your feet daily for problems such as redness, blisters, cracks, dry skin, or numbness. Use a mirror to see the bottoms of your feet. Or, ask for help. Manage your diabetes. Monitor and control your blood sugar. Take all your medications as prescribed. Avoid walking barefoot, even indoors. Wash your feet with warm water and mild soap. Dry well, especially between toes. Dont treat corns or calluses yourself. Talk to your doctor or medical physics researcher (a doctor who specializes in foot care) if you need assistance trimming your toenails. Use moisturizing cream or lotion if you have dry skin, but dont use it between toes. Dont use heating pads on your feet. If you have neuropathy, you could get a burn and not feel it. Stop smoking. Smoking restricts blood flow and can make it harder for wounds to heal. Have Regular Checkups Foot problems can develop quickly. So be sure to follow your healthcare teams schedule for regular checkups. During office visits, take off your shoes and socks as soon as you get in the exam room. Ask your healthcare provider to examine your feet for problems. This will make it easier to find and treat small skin irritations before they get worse. Regular checkups can also help keep track of the blood flow and feeling in your feet. If you have neuropathy, you may need to have checkups more often. Wear Proper Footwear Wearing proper footwear is very important. If areas of your feet have been damaged by too much pressure, your healthcare provider may recommend changing your footwear. In some cases, avoiding high heels or tight work boots may be all thats needed. Or, your healthcare provider may recommend special shoes or custom inserts. These help protect your feet and keep existing irritations from getting worse. If you need special footwear, ask your healthcare provider if you qualify for [employer] diabetic shoe program. Make Sure Shoes and Socks Fit Any pair of shoes--new or old--should feel comfortable as soon as you put them on. There shouldnt be any rubbing when you walk. Wear the right shoe for any activity. For instance, a running shoe is designed to keep your feet injury-free while jogging. Buy shoes at the end of the day, when your feet are larger. Make sure they provide support without feeling too loose. Make sure your socks fit, t oo. Wear soft, seamless, well-padded socks for activity. Cotton or microfiber socks are best to help to absorb sweat. To protect your feet, avoid shoes that are open-toed or open-heeled. If you have questions about what kinds of shoes and socks are best, talk to your healthcare team. Get Regular Exercise Regular exercise improves blood flow in your feet. It also increases foot strength and flexibility.Gentle exercises, like walking or riding a stationary bicycle, are best. You can also do special foot exercises. Just be sure to talk with your healthcare provider before starting any exercise program. Also mention if any exercise causes pain, redness, or other signs of foot problems. Note: If you have any kind of break in the skin of your foot or ankle, keep the area clean. Then call your doctor--especially if the area doesnt appear to be healing. [phone] [employer], [address] [place] [address], [place] [address]. All rights reserved. This information is not intended as a substitute for professional medical care. Always follow your healthcare professional's instructions. documented in this encounter Progress Notes * Aurea Britton MD - 05/18/2023 11:37 AM EST Subjective Martine Russell is a 82 year old female. 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 Known diverticulosis with bleeding sign last month on colonoscopy She received 2 units of blood transfusion on this admission Last month 3 units On plavix for stent - on hold due to recurrent GI bleeding Currently no active bleeding sign EGD on may 16 ,no bleeding, varices + With liver cirrhosis, known HTN, CAD, atherosclerosis, CHF, pt is getting more leg swelling Taking lasix 60 mg daily but not working Will switch to torsemide 40 mg to try Also pt has been drinking beer one bottle/can daily at night even though she knew she has liver cirrhosis Advised her to stop alcohol marguerite Type 2 DM , taking insulin Last hba1c 7.6 in mar PMH: Patient Active Problem List Diagnosis Code Visual field loss, 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, H54.7 Hyperparathyroidism, primary (HCC) E21.0 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) E11.29 Dyslipidemia, goal LDL below 100 E78.5 Vitamin D deficiency E55.9 Non-toxic multinodular goiter E04.2 Type 2 diabetes mellitus with hemoglobin A1c goal of less than 8.0% (HCC) E11.9 Age-related osteoporosis without current pathological fracture M81.0 Gastroesophageal reflux disease without esophagitis K21.9 Type 2 diabetes mellitus with diabetic nephropathy, with long-term current use of insulin (HCC) E11.21, Z79.4 Arteriosclerosis of thoracic aorta (HCC) I70.0 HTN, goal below 140/90 I10 Cerebrovascular disease, arteriosclerotic, post-stroke I67.2, Z86.73 Coronary artery disease involving little shell tribe heart without angina pectoris I25.10 (HFpEF) heart failure with preserved ejection fraction (HCC) I50.30 Pericolonic abscess K63.0 Hepatic cirrhosis (HCC) K74.60 Hyponatremia E87.1 DM peripheral angiopathy (HCC) E11.51 Portal hypertension (HCC) K76.6 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 60 Tablet 5 CENTRUM SILVER PO TABS 1 TABLET DAILY [...] taking: Reported on 09/22/2022) 1000 mL 11 EPINEPHrine (Anaphylaxis) 1 MG/ML Injection [...] mouth daily withdinner. 90 Tablet 1 OneTouch DelOhai Lancets 33G Test blood sugar twice daily E11.9 E11.29 (Patient not taking: Reportedon 05/04/2023) 400 Each 1 Magnesium Oxide -Mg Supplement 400 MG Oral Capsule TAKE ONE CAPSULE BY MOUTH EVERY MORNING 90 Capsule 1 Insulin Syringe-Needle U-100 30G X 5/16" 1 ML USE TO INJECT INSULIN TWICE DAILY 200 Each 1 Glucose Blood In Vitro Strip USE TO TEST BLOOD SUGAR TWICE DAILY 200 Strip 1 Unity Physician PartnersTouch Delica Plus [id number] USE TO TEST BLOOD SUGAR TWICE DAILY 400 Each 1 NovoLIN 70/30 (70-30) 100 UNIT/ML Subcutaneous Suspension INJECT 25 UNITS SUBCUTANEOUSLY BEFORE BREAKFAST AND INJECT 10 UNITS BEFORE SUPPER. 40 mL 1 metFORMIN HCl 1000 MG Oral Tablet [...] MOUTH IN THE MORNING. 100 Tablet 1 Losartan Potassium 25 MG Oral Tablet (Cozaar) TAKE ONE TABLET BY MOUTH IN THE MORNING 100 Tablet 3 Carvedilol 3.125 MG Oral Tablet (Coreg) Take 1 Tablet by mouth 2 times a day with morning and evening meals. 60 Tablet 1 Pantoprazole Sodium 40 MG Oral Tablet Delayed Release (Protonix) TAKE ONE TABLET BY MOUTH IN THE MORNING 100 Tablet 1 No current facility-administered medications for this visit. Past Medical History: Diagnosis Date DM type 2, goal A1C below 8.0 04/22/2013 Past Surgical History: Procedure Laterality Date COLONOSCOPY, DIAGNOSTIC (RECTUM) N/A 08/26/2022 sigmoid diverticulosis/hemorrhagic, inflamed and ulcerated mucosa cecum/biopsies show colitis/Colonoscopy/[place] COLONOSCOPY, DIAGNOSTIC (RECTUM) N/A 04/27/2023 COLONOSCOPY FLEXIBLE PROXIMAL DIAGNOSTIC performed [place] Elian [place] [facility] [place]ERIOGRAM [place]ISC[place]AL N/A 05/09/2022 IMAGING SUPERVISION & INTERPRETATION VISCERAL, SELECTIVE performed by Cedrick Phillips MD at [facility] OPEN BRACHIAL ARTERY EXPOSURE FOR ENDOVASCULAR PROSTHESIS, UNILAT N/A 05/09/2022 OPEN BRACHIAL ARTERY EXPOSURE FOR ENDOVASCULAR PROSTHESIS performed by Cedrick Phillips MD [place] [facility] [place] HYSTERECTOMY 1986 ovaries remain REMOVAL OF TONSILS, UNDER AGE 12 REMOVE CATARACT, INSERT LENS PROSTH Bilateral 2015 REMOVE GALLBLADDER STENT, COATED/COVERED, WITH DELIVERY SYSTEM 09/16/1994 Palmaz-Gamal balloon expandable GW MRI safe Review of patient's allergies indicates: No Known Allergies Family History Problem Relation Age of Onset Cancer Brother Stroke Mother 58 Heart Disorder Brother hx of several [place] Heart Disorder Father LA Diabetes Mother IDDM Diabetes Father Diabetes Brother Diabetes Brother Diabetes Brother Diabetes Sister Cancer None Thyroid Disorder None Family Status Relation Status Mo at age 78 stroke at age 58, hx of several [place] Fa at age 80 [place], DM Sis Alive DM Bro Alive DM Bro Alive DM Bro at age 70 DM, heart, found at home, hx of several LA Barbara Alive Barbara Alive Son Alive Bro (Not Specified) Bro (Not Specified) Bro (Not Specified) Bro (Not Specified) Sis (Not Specified) NONE (Not Specified) NONE (Not Specified) Social History Socioeconomic History Marital status: Spouse name: Adrian Number of children: 3 Years of education: Not on file Highest education level: Not on file Occupational History Not on file Tobacco Use Smoking status: Former Packs/day: 3.00 Years: 48.00 Additional pack years: 0.00 Total pack years: 144.00 Types: Cigarettes Quit date: 07/23/2006 Years since quittin.8 Passive exposure: Past Smokeless tobacco: Never Vaping Use Vaping Use: Never used Substance and Sexual Activity Alcohol use: Yes Comment: occasional Drug use: No Sexual activity: Not Currently Other Topics Concern Service Not Asked Blood Transfusions Not Asked Caffeine Concern Not Asked Occupational Exposure Not Asked Hobby Hazards Not Asked Sleep Concern Not Asked Stress Concern Not Asked Weight Concern Not Asked Special Diet Not Asked Back Care Not Asked Exercise Not Asked Bike Helmet Not Asked Seat Belt Yes Self-Exams Not Asked Social History Narrative Not on file Social Determinants of Health Financial Resource Strain: Not on file Food Insecurity: No Food Insecurity (09/26/2022) Hunger Vital Sign Worried About Running Out of Food in the Last Year: Never true Ran Out of Food in the Last Year: Never true Transportation Needs: Not on file Physical Activity: Not on file Stress: Not on file Social Connections: Not on file Intimate Partner Violence: Not on file Housing Stability: Not on file Review of Systems Constitutional: Positive for fatigue. Negative for activity change, appetite change, chills, diaphoresis, fever and unexpected weight change. Eyes: Negative for visual disturbance. Respiratory: Negative for cough, chest tightness, shortness of breath and wheezing. Cardiovascular: Positive for leg swelling. Negative for chest pain and palpitations. Gastrointestinal: Positive for diarrhea (loose stool). Negative for abdominal distention, abdominalpain, anal bleeding, blood in stool, constipation, nausea, rectal pain and vomiting. Endocrine: Negative. Genitourinary: Positive for difficulty urinating. Musculoskeletal: Positive for arthralgias, back pain and gait problem. Skin: Negative for color change and pallor. Neurological: Positive for weakness (general). Negative for dizziness and light-headedness. Hematological: Bruises/bleeds easily. Psychiatric/Behavioral: Positive for sleep disturbance. Negative for agitation and behavioral problems. The patient is nervous/anxious. Objective BP 100/54 | Pulse 89 | Temp 36.3 C (97.3 F) (Infrared ) | Resp 18 | Wt 71.9 kg (158 lb 9.6 oz) | SpO2 100% | BMI 28.09 kg/m | BSA 1.79 m Physical Exam Constitutional: General: She is not in acute distress. Appearance: Normal appearance. She is not ill-appearing, toxic-appearing or diaphoretic. HENT: Head: Normocephalic and atraumatic. Nose: Nose normal. Eyes: Extraocular Movements: Extraocular movements intact. Cardiovascular: Rate and Rhythm: Normal rate and regular rhythm. Pulses: Normal pulses. Heart sounds: Murmur heard. Pulmonary: Effort: Pulmonary effort is normal. No respiratory distress. Breath sounds: No stridor. No wheezing, rhonchi or rales. Chest: Chest wall: No tenderness. Abdominal: Palpations: Abdomen is soft. Tenderness: There is no abdominal tenderness. Musculoskeletal: General: Tenderness present. Right lower leg: Edema present. Left lower leg: Edema present. Neurological: Mental Status: She is alert and oriented to person, place, and time. Cranial Nerves: No cranial nerve deficit. Gait: Gait abnormal. Psychiatric: Behavior: Behavior normal. Comments: Mild anxiety ASSESSMENT/PLAN: Gastrointestinal hemorrhage, unspecified gastrointestinal hemorrhage type (Primary) - CBC WITH WBC DIFFERENTIAL AND ANEMIA REFLEX WORKUP; Future; Expected date: 05/22/2023 - COMPREHENSIVE METABOLIC PANEL; Future; Expected date: 05/22/2023 DM type 2 nursing care encounter (HCC) - DIABETES FOOT EXAM Esophageal varices without bleeding, unspecified esophageal varices type (HCC) - CBC WITH WBC DIFFERENTIAL AND ANEMIA REFLEX WORKUP; Future; Expected date: 05/22/2023 Type 2 diabetes mellitus with diabetic nephropathy, with long-term current use of insulin (HCC) - COMPREHENSIVE METABOLIC PANEL; Future; Expected date: 05/22/2023 - TELEMEDICINE DIABETIC EYE Chronic heart failure with preserved ejection fraction (HCC) Superior mesenteric artery stenosis (HCC) Hyperparathyroidism, primary (HCC) HTN, goal below 140/90 Atherosclerosis of little shell tribe coronary artery without angina pectoris, unspecified whether little shell tribe or transplanted heart Dyslipidemia, goal LDL below 100 Cirrhosis of liver without ascites, unspecified hepatic cirrhosis type (HCC) - COMPREHENSIVE METABOLIC PANEL; Future; Expected date: 05/22/2023 - AMMONIA; Future; Expected date: 05/18/2023 Portal hypertension (HCC) Hypertensive HF (heart failure) (HCC) Other orders - Torsemide 20 MG Oral Tablet (Demadex); Take 2 Tablets by mouth in the morning. F/u blood test on monday Ok to resume plavix F/u with GI No alcohol F/u with PCP Aurea Britton MD * Delores Barkley LPN - 05/18/2023 11:16 AM EST DM Foot Exam completed today. Provider aware. Delores Barkley LPN Socks and Shoes Removed for Annual Diabetic Foot Screening RIGHT FOOT: No Reddened, Cracking, Or Open Areas Noted. Has swelling in foot RIGHT Dorsalis Pedis Pulse: Palpable RIGHT Posterior Tibial Pulse: Palpable RIGHT Monofilament:Patient reports feeling monofilament pressure on plantar surface of foot LEFT FOOT: No Reddened, Cracking or Open Areas Noted. Foot is swollen LEFT Dorsalis Pedis Pulse: Palpable LEFT Posterior Tibial Pulse: Palpable LEFT Monofilament:Patient reports feeling monofilament pressure on plantar surface of foot Do you need diabetic shoes: Yes documented in this encounter Nursing Notes * Delores Barkley LPN - 05/18/2023 11:11 AM EST Chief Complaint Patient presents with Hospital Follow-Up documented in this encounter Miscellaneous Notes * Addendum Note - Anamika Owen OSA - 05/22/2023 9:56 AM ESTAddended by: ANAMIKA OWEN on: 05/22/2023 09:56 AM Modules accepted: Orders documented in this encounter Plan of Treatment Upcoming Encounters Date Type Department Care Team (Late [facility]) Description 05/23/2023 9:00 AM EST Imaging Vascular Lab, [address] [place] [address] 05/23/2023 10:00 AM EST Imaging Vascular Lab, [address] [place] [address] 05/31/2023 12:10 PM EST Office Visit Vascular Surgery, [facility] [address] [place] [address] Jonathan Iverson MD [address] [place] [address] 06/05/2023 12:30 PM EST Home Visit [facility] [address] [place] [address] Cheryl Ruiz RN [address] [place] [address] 07/06/2023 2:20 PM EST Office Visit [place] [address] [place] [facility] [place] [id number] Alexy Al MD [address] [place] [address] 08/17/2023 12:40 PM EDT Office Visit Hepatology, [facility] [address] [place] [address] Dayan Sanford DO [address] [place] [address] 10/06/2023 10:40 AM EDT Office Visit [facility] [address] [place] [facility] [place] [id number] Alexy Al MD [address] [place] [address] Scheduled Orders Name Type Priority Associated Diagnoses Orde r Schedule CBC WITH WBC DIFFERENTIAL AND ANEMIA REFLEX WORKUP Lab Routine Esophageal varices without bleeding, unspecified esophageal varices type (HCC) Gastrointestinal hemorrhage, unspecified gastrointestinal hemorrhage type Expected: 05/22/2023 (Approximate), Expires: 05/18/2024 COMPREHENSIVE METABOLIC PANEL Lab Routine Type 2 diabetes mellitus with diabetic nephropathy, with long-term current use of insulin (HCC) Gastrointestinal hemorrhage, unspecified gastrointestinal hemorrhage type Cirrhosis of liver without ascites, unspecified hepatic cirrhosis type (HCC) Expected: 05/22/2023 (Approximate), Expires: 05/17/2024 AMMONIA Lab Routine Cirrhosis of liver without ascites, unspecified hepatic cirrhosis type (HCC) Expected: 05/18/2023, Expires: 05/18/2024 Health Maintenance Due Date Last Done Comments [...] D LEVEL ONCE IN A LIFETIME-USE SMARTSET# [id number] Completed 01/27/2021, 08/21/2017, 03/08/2017, Additional history exists [...] this encounter Medical Devices Implanted Type Area Parts Advisor Device Identifier Shelf Expiration Date Model / Serial / Lot Stent Graft [id number] - [id number] - [id number] Implanted:Qty: 1 on 05/09/2022 by Cedrick Phillips MD [place] [facility] MARTIN [id number] 02/11/2025 [id number] / [id number] / [id number] documented as of this encounter Visit Diagnoses Diagnosis Gastrointestinal hemorrhage, unspecified gastrointestinal hemorrhage type- Primary DM type 2 nursing care encounter (HCC) Type II or unspecified type diabetes mellitus without mention of complication, not stated as uncontrolled Esophageal varices without bleeding, unspecified esophageal varices type (HCC) Type 2 diabetes mellitus with diabetic nephropathy, with long-term current use of insulin (HCC) Chronic heart failure with preserved ejection fraction (HCC) 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 Hyperparathyroidism, primary (HCC) Primary hyperparathyroidism HTN, goal below 140/90 Unspecified essential hypertension Atherosclerosis of [place] coronary artery without angina pectoris, unspecified whether [place] or transplanted heart Dyslipidemia, goal LDL below 100 Other and unspecified hyperlipidemia Cirrhosis of liver without ascites, unspecified hepatic cirrhosis type (HCC) Portal hypertension (HCC) Portal hypertension Hypertensive HF (heart failure) (HCC) Unspecified hypertensive heart disease with heart failure documented in this encounter Advance Directives Latest [...] Advance Directives occurred with: Patient Care Teams Dough Panner Relationship Specialty Start Date End Date Alexy Al MD [address] [place] [address] PCP - General 07/29/08 documented as of this encounter
--- OUTSIDE RECORDS SUMMARY | 2023-06-01 02:26 | External Medical Summary | Summary of Care ---
Author Name Unknown Organization [facility] Address [address] [place] [address] Phone [phone] Care Team Providers Care Senior Hardware Engineer Name Role Phone Alexy Al MD Primary Care Provider [phone]- [phone] Reason for Visit * Reason Comments NEW PATIENT [facility] 04/24/23 - 04/14 08/04 and then transferred [place] [facility] [place] - 04/28/23 for lower GI bleed. She was transfused with 3 units of packed red blood cells. Upper endoscopy revealed esophageal varices. Plavix restarted prior to discharge. Denies further episodes of bleeding. Encounter Details Date Type Department Care Team (Late st Contact Info) Description 05/31/2023 12:10 PM EST Office Visit Vascular Surgery, [facility] [address] [place] [address] Jonathan Iverson MD [address] [place] [address] Superior mesenteric artery stenosis (HCC)*; Aortic ectasia, abdominal (HCC); Asymptomatic bilateral carotid artery stenosis; Dyslipidemia, goal LDL below 100 Allergies No known active allergiesdocumented as of this encounter (statuses as of 05/31/2023) Medications Medication Sig Dispensed Refills Start Date [...] Strip 08/31/2022 4 Active OneTouch Delica Plus [id number] USE TO TEST BLOOD SUGAR TWICE DAILY [...] as of this encounter (statuses as of 05/31/2023) Active Problems Problem Noted Date Diagnosed Date [...] repeat CT. Coronary artery disease invo lving [place] heart without angina pectoris 05/08/2022 Last Assessment [...] as of this encounter (statuses as of 05/31/2023) Resolved Problems Problem Noted Date Diagnosed Date [...] as of this encounter (statuses as of 05/31/2023) Immunizations Name Administration Dates Next Due COVID-19 mRNA, LNP-s, No Pre serve, 2-Dose Series (The Resumator) 03/10/2021,08/27/2020,08/06/2020 Pneumococcal Conjugate Vacc, 13 Valent (Prevnar) [...] Sign Reading Time Taken Comments Blood Pressure 126/53 05/31/2023 12:01 PM EST Pulse 83 05/31/2023 12:01 PM EST Temperature 36.4 C (97.5 F) 05/31/2023 12:[address] Respiratory Rate - - Oxygen Saturation - - Inhaled Oxygen Concentration - - Weight 70.9 kg (156 lb 3.2 oz) 05/31/2023 12:01 PM EST Height - - Body Mass Index 27.67 04/26/2023 1:17 AM EST documented in this [...] as of this encounter Progress Notes * Whitney Myers CRNP - 05/31/2023 12:10 PM EST Date of Service: 05/31/2023 12:02 PM Martine Russell is a 81 year old female. PCP: Alexy Al MD Chief Complaint: HD follow-up Admitted recently to [facility] 04/24/23 - 04/26/23 and then transferred to [facility] 04/26/23 - 04/28/23 for lower GI bleed. She was transfused with 3 units of packed red blood cells. Upper endoscopy revealed esophageal varices. Plavix restarted prior to discharge. Denies further episodes of bleeding. 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 Denies food fear Denies weight loss Denies changes in bowel habits. Denies blood in BM or black tarry bowel movements. 1 nose bleed since discharge but stopped quickly and no further bleeding Reformed smoker, 2006 Presents with her daughter HPI: Here today for routine surveillance, as well as above post-op concerns. Current Outpatient Medications Medication Sig Dispense Refill [...] DAILY 200 Strip 1 OneTouch Delica Plus [id number] USE TO TEST BLOOD SUGAR TWICE DAILY [...] MOUTH IN THE MORNING 100 Tablet 1 Torsemide 20 MG Oral Tablet (Demadex) Take 2 Tablets by mouth in the morning. 60 Tablet 5 No current facility-administered medications for this visit. 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 Dyslipidemia, goal LDL below 100 E78.5 Vitamin D deficiency E55.9 Type 2 diabetes mellitus with hemoglobin A1c [...] post-stroke I67.2, Z86.73 Coronary artery disease involving [place] heart without angina pectoris I25.10 (HFpEF) heart [...] failure with preserved ejection fraction (HCC) I50.32 Past Medical History: Diagnosis Date DM type 2, goal A1C below 8.0 04/22/2013 Past Surgical History: Procedure Laterality Date COLONOSCOPY, DIAGNOSTIC (RECTUM) N/A 08/26/2022 sigmoid diverticulosis/hemorrhagic, inflamed and ulcerated mucosa cecum/biopsies show colitis/Colonoscopy/[place] COLONOSCOPY, DIAGNOSTIC (RECTUM) N/A 04/27/2023 COLONOSCOPY FLEXIBLE PROXIMAL DIAGNOSTIC performed by Elian Hernandez MD at ENDOSCOPY [facility] IR ARTERIOGRAM VISCERAL N/A 05/09/2022 IMAGING SUPERVISION & INTERPRETATION VISCERAL, SELECTIVE performed by Cedrick Phillips MD at [facility] OPEN BRACHIAL ARTERY EXPOSURE FOR ENDOVASCULAR PROSTHESIS, UNILAT N/A 05/09/2022 OPEN BRACHIAL ARTERY EXPOSURE FOR ENDOVASCULAR PROSTHESIS performed by Cedrick Phillips MD at OR [facility] PARTIAL HYSTERECTOMY 1987 ovaries remain REMOVAL OF TONSILS, UNDER AGE 12 REMOVE CATARACT, INSERT LENS PROSTH Bilateral 2016 REMOVE GALLBLADDER STENT, COATED/COVERED, WITH DELIVERY SYSTEM 09/16/1994 Palmaz-Gamal balloon expandable GW MRI safe Family History Problem Relation Age of Onset Cancer Brother Stroke Mother 58 Heart Disorder Brother hx of several [place] Heart Disorder Father HI Diabetes Mother IDDM Diabetes Father Diabetes Brother Diabetes Brother Diabetes Brother Diabetes Sister Cancer None Thyroid Disorder None Social History Socioeconomic History Marital status: Spouse [...] on file Housing Stability: Not on file COMPLETE REVIEW OF SYSTEMS: Cardiovascular: Negative for chest pain, shortness of breath, palpitations, angina or HI. Yes to HFnEF and chronic BLE edema Neurological: Yes for stroke, TIA, amaurosis fugax. Stoke w/ right hand weakness Jan 2022 and remote TIA, presented as amaurosis fugax GENERAL MULTI-SYSTEM PHYSICAL EXAM: VITAL SIGNS: BP 126/53 | Pulse 83 | Temp 36.4 C (97.5 F) | Wt 70.9 kg (156 lb 3.2 oz) | BMI 27.67 kg/m | BSA 1.78 m GENERAL MULTI-SYSTEM PHYSICAL EXAM:GENERAL: Normal grooming habits, no acute distress and appears stated age. NECK: No masses and Normal Thyroid. RESPIRATORY: respiratory effort normal and breath sounds normal. CARDIOVASCULAR: no heart murmurs, yes to RRR and to moderate BLE edema GASTROINTESTINAL: no tenderness, protuberant and abdominal aorta not palpable. LYMPHATIC: cervical lymph nodes normal and inguinial lymph nodes normal. SKIN: no ulcers, no rash, no induration, capillary refill normal and no dependent rubor. PSYCHIATRIC: orientation to time, place and person normal and recent and remote memory normal. EYES: conjunctivae normal, eye lids normal, pupils normal and irises normal. NEUROLOGIC: Cranial nerves intact, Motor function intact and Sensory exam intact PULSE SCALE: Carotid Right:----Bruit: No Left:----Bruit: No Radial Right: 3 Left: 3 Femoral Right: 3 Left: 3 Popliteal Right: 2 Left: 2 Dorsalis Pedis Right: 3 Left: 3 Posterior Tibial Right: 2 Left: 2 PULSE SCALE: 4=Aneurysmal; 3=Normal; 2=Diminished; 1=Barely Palpable; 0=Absent DIAGNOSTIC STUDIES: 05/23/23: carotid duplex: VANDA 133/21, LICA 83/17 Mesenteric duplex: aorta 64, Celiac 338, SMA 331/286/129/147, ZHANE 206 The above diagnostic images were directly visualized and independently interpreted by me on 05/31/2023 with results as above 04/24/23: CT abd/pel [facility]: patent SMA stent. The above diagnostic images were directly visualized and independently interpreted by me on 05/31/2023 with results as above 06/14/2022 Mesenteric Arterial Duplex: Celiac 222, SMA origin stent 271/286, stent 261/99/115, ZHANE 260, Hep UI, Splenic UI 06/14/2022 CT Abd/Pelvis w/ IV contrast: No AAA, patent SMA stent 05/08/2022 CTA Abd/Pelvis: Significant calcification of celiac artery, high grade stenosis of SMA, abd aorta 2.5 cm LABS: Hemoglobin AIC Results: Lab Results Component Value Date/Time HEMOGLOBIN A1C - [facility] 7.6 (H) 03/28/2023 02:26 PM HEMOGLOBIN A1C - [facility] 7.4 (H) 12/05/2022 08:17 AM HEMOGLOBIN A1C - [facility] 6.6 (H) 09/05/2022 09:07 AM HEMOGLOBIN A1C - [facility] 8.1 (H) 03/05/2020 02:53 PM HEMOGLOBIN A1C - [facility] 7.6 (H) 10/29/2019 01:40 PM HEMOGLOBIN A1C - [facility] 7.3 (H) 03/15/2019 10:24 AM Lab Results Component Value Date/Time CREATININE - [facility] 1.5 (H) 05/10/2023 12:11 PM CREATININE - [facility] 0.8 04/28/2023 08:13 AM CREATININE - [facility] 0.8 04/27/2023 06:44 AM CREATININE - [facility] 0.6 03/05/2020 02:53 PM CREATININE - [facility] 0.6 10/29/2019 01:40 PM CREATININE - [facility] 0.7 03/15/2019 10:24 AM CREATININE, 24 HOUR URINE - [facility] 0.881 03/19/2012 12:18 PM CREATININE, RANDOM URINE - [facility] 45 03/28/2023 02:32 PM CREATININE, RANDOM URINE - [facility] 64 08/18/2021 10:42 AM CREATININE, RANDOM URINE - [facility] 56 10/29/2019 01:40 PM CREATININE, RANDOM URINE - [facility] 81 03/07/2018 11:04 AM CREATININE, RANDOM URINE - [facility] 37 12/22/2015 10:14 AM Lab Results Component Value Date/Time LDL CHOLESTEROL (CALCULATED) - [facility] 58 03/07/2022 10:09 AM LDL CHOLESTEROL (CALCULATED) - [facility] 52 10/22/2019 09:46 AM LDL CHOLESTEROL (DIRECT MEASURE) - [facility] 35 03/28/2023 02:26 PM LDL CHOLESTEROL (DIRECT MEASURE) - [facility] NOT APPLICABLE 10/22/2019 09:46 AM LDL CHOLESTEROL (DIRECT MEASURE) - [facility] 94 01/03/2014 10:10 AM The above clinical lab tests were reviewed by me on 05/31/2023. 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 <50% bilateral ICA stenosis on duplex 05/2023 with bilateral plaque but no flow- limiting stenosis Esophageal varices with recent GI bleed: adm 04/2023 Abd aortic ectasia, 2.5 cm on 2021 CTA HTN Dyslipidemia HFpEF CAD, remote stent placement DM TIA with amaurosis fugax, remote CVA, Jan 2022, right hand weakness for a few weeks GERD PLAN: The patient was counseled regarding the pathophysiology and natural history of mesenteric vascular disease, as well as the interventional and noninterventional therapeutic options. < 50% bilateral internal carotid artery stenosis with some plaque left ICA. Medical management recommended. Continue Plavix 75 mg for life secondary to stent placement. Recently admitted for GI bleeding requiring transfusions Nose bleeds with ASA in the remote past, but could transition back to 81mg ASA IF she has persistent bleeding issues on the plavix. Advised she try humidifier at home and saline nasal spray as needed for dry air/nose bleeds during winter months Continue Lipitor 40 mg daily for dyslipidemia/pleiotropic effects RTC 1 yr w/ mesenteric duplex, 1 wk prior to visit, sooner prn The patient was seen and examined with Jonathan Iverson MD. MELISSA Cornelius Section of Vascular [place] [address] [phone] I have reviewed the advanced practitioner's documentation and agree with the plan of care. I acceptthe responsibility for the associated risk. S/P SMA stent On CT scan slightly "stovepiped" but duplex looks good. Asymptomatic. Has had recurrent bouts of GI bleeding - if needs to stop Plavix should start ASA81. Is currently tolerating Plavix. 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, however reconstitutesnicely with good waveform on duplex No abdominal complaints Will plan to see her back next year (or a little sooner so she can avoid the cold) with repeat duplex RTC sooner PRN Jonathan Iverson MD Section of Vascular and Endovascular Surgery [place], [place] [id number] [phone] documented in this encounter Nursing Notes * Saqib Wilkerson MED ASSIST - 05/31/2023 12:04 PM EST Chief Complaint Patient presents with NEW PATIENT [facility] 04/24/23 - 04/26/23 and then transferred to [facility] 04/26/23 - 04/28/23 for lower GI bleed. She was transfused with 3 units of packed red blood cells. Upper endoscopy revealed esophageal varices. Plavix restarted prior to discharge. Denies further episodes of bleeding. Verified patient. No pain. Patient is here with her today. documented in this encounter Plan of Treatment Upcoming Encounters Date Type Department Care Team (Late st Contact Info) Description 06/05/2023 12:30 PM EST Home Visit [facility] [address] [place] [address] Cheryl Ruiz, RN [address] [place] [address] 07/06/2023 2:20 PM EST Office Visit [facility] [address] [facility] [phone] Alexy Al MD [address] [facility] [place] [address] 08/17/2023 12:40 PM EDT Office Visit Hepatology, [facility] [address] [place] [address] Dayan Sanford DO [address] [place] [address] 10/06/2023 10:40 AM EDT Office Visit [facility] [address] [phone] Alexy Al MD [address] [facility] [place] [address] Scheduled Orders Name Type Priority Associated Diagnoses Orde r Schedule VASC MESENTERIC/CELIAC ART-COMP Medical Imaging Routine 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, abdominal (HCC) Asymptomatic bilateral carotid artery stenosis Dyslipidemia, goal LDL below 100 Ordered: 05/31/2023 Health Maintenance Due Date Last Done Comments Hepatitis B (1 of 3 - Risk 3-dose series) 2000 COVID-19 Vaccine ( season) 2023 03/10/2021, 08/27/2020, 08/06/2020 Depression Screening 03/14/2023 03/14/2022 B-12 07/04/2023 07/04/2022, 0 01/2023, 01/27/2021, Additional history exists Diabetic Eye Exam 09/10/2023 09/09/2022, , 12/30/2020, Additional history exists HbA1c 09/26/2023 03/28/2023, 11/13, 09/05/2022, Additional history exists Albumin/Creatinine Ratio 03/28/20242 023, 08/18/2021, 10/29/2019, Additional history exists GFR 05/10/2024 05/10/2023, 04/14, 04/27/2023, Additional history exists Diabetic Foot Exam 05/18/2024 05/18/2023, 1 05/20/2018, 03/13/2018, Additional history exists DTaP,Tdap,and Td Vaccines (2 - Td or Tdap) 06/05/2024 06/05/2014 DXA Scan 11/28/2024 11/28/2022, 12/05/2018, 12/07/2016, Additional history exists Pneumococcal Vaccine: 65+ Years Completed 06/04/2015, 07/29/2008 VITAMIN D LEVEL ONCE IN A LIFETIME-USE SMARTSET# [id number] Completed 01/27/2021, 08/21/2017, 03/08/2017, Additional history exists [...] this encounter Medical Devices Implanted Type Area Au Pair Device Identifier Shelf Expiration Date Model / Serial / Lot Stent Graft [id number] - [id number] - [id number] Implanted:Qty: 1 on 05/09/2022 by Cedrick Phillips MD at [place] [facility] [place] : MARTIN [id number] 02/11/2025 8545 3 / [id number] / [id number] documented as of this encounter Visit Diagnoses Diagnosis Superior mesenteric artery stenosis (HCC)- Primary 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, abdominal (HCC) Abdominal aortic ectasia Asymptomatic bilateral carotid artery stenosis Occlusion and stenosis of multiple and bilateral precerebral arteries without mention of cerebral infarction Dyslipidemia, goal LDL below 100 Other and unspecified hyperlipidemia documented in this encounter Advance Directives Latest Code Status on File Code Status Date Activated Date Inactivated Comments No Code 04/26/2023 1:57 AM 04/28/2023 5:55 PM Th is order reflects the patients [...] Advance Directives occurred with: Patient Care Teams Senior Hardware Engineer Relationship Specialty Start Date End Date Alexy Al MD [address] [facility] [place] [address] PCP - General 07/29/08 documented as of this encounter
--- OUTSIDE RECORDS SUMMARY | 2023-06-01 02:26 | External Medical Summary | Summary of Care ---
Author Name Unknown Organization [facility] Address [address] [facility] [place] [address] Phone [phone] Care Team Providers Care Human Resources Assistant Name Role Phone Alexy Al MD Primary Care Provider +1- [phone] Encounter Details Date Type Department Care Team (Late st Contact Info) Description 05/29/2023 Orders Only [facility] [address] [place] [address] Alexy Al MD [address] [place] [address] Allergies No known active allergiesdocumented as of this encounter (statuses as of 05/29/2023) Medications Medication Sig Dispensed Refills Start Date [...] in the event of anaphylactic reaction per [facility] IV iron anaphylaxis protocol). May repeat [...] 1 08/31/2022 4 Active OneTouch Delica Plus [id number] USE TO TEST BLOOD SUGAR TWICE DAILY 400 Each 1 08/31/2022 4 Active NovoLIN 70/30 (70-30) 100 UNIT/ML Subcutaneous SuspensionIndicati ons:Type 2 diabetes mellitus with hemoglobin A1c goal of less than 8.0% (HCC) INJECT 25 UNITS SUBCUTANEOUSLY BEFORE BREAKFAST AND INJECT 10 UNITS BEFORE SUPPER. 40 mL 1 08/31/2022 4 Active metFORMIN HCl 1000 [...] as of this encounter (statuses as of 05/29/2023) Active Problems Problem Noted Date Diagnosed Date [...] repeat CT. Coronary artery disease invo lving [place] heart without angina pectoris 05/08/2022 Last [...] as of this encounter (statuses as of 05/29/2023) Resolved Problems Problem Noted Date Diagnosed Date [...] as of this encounter (statuses as of 05/29/2023) Immunizations Name Administration Dates Next Due COVID-19 [...] 12:10 PM EST Office Visit Vascular Surgery, [facility] [address] [place] [address] Jonathan Iverson MD [address] [place] [address] 06/05/2023 12:30 PM EST [facility] [address] [place] [address] Cheryl Ruiz RN [address] [place] [address] 07/06/2023 2:20 PM EST [address] [phone] Alexy Al MD [address] [facility] [place] [address] 08/17/2023 12:40 PM EDT Office Visit Hepatology, [facility] [address] [place] [address] Dayan Sanford DO [address] [place] [address] 10/06/2023 10:40 AM EDT Office Visit Family Practice, [place] [address] [phone] Alexy Al MD [address] [facility] [place] [address] Health Maintenance Due Date Last Done Comments [...] 05/18/2023, 1 05/20/2018, 03/13/2018, Additional history exists Diabetic Eye Exam 05/29/2024 09/09/2022, , 12/30/2020, Additional history exists DTaP,Tdap,and Td Vaccines (2 - Td or Tdap) 06/05/2024 06/05/2014 DXA Scan 11/28/2024 11/28/2022, 04/16, 12/07/2016, Additional history exists Pneumococcal Vaccine: 65+ Years Completed 06/04/2015, 07/29/2008 VITAMIN D LEVEL ONCE IN A LIFETIME-USE SMARTSET# [id number] Completed 01/27/2021, 08/21/2017, 03/08/2017, Additional history exists [...] encounter Medical Devices Implanted Type Area Oracle Fusion Developer Device Identifier Shelf Expiration Date Model / Serial / Lot Stent Graft [id number] - [id number] - [id number] Implanted:Qty: 1 on 05/09/2022 by Cedrick Phillips MD at [place] [facility] [place] : MARTIN [id number] 02/11/2025 8545 3 / [id number] / [id number] documented as of this encounter Procedures Procedure Name Priority Date/Time Associated Diagnosis Comments DIABETIC EYE EXAM Routine 09/09/2022 documented in this encounter Results * DIABETIC EYE EXAM (09/09/2022) 09/09/2022 History Per Patient OTHER OUTSIDE LAB (SEE SCANNED REPORT) documented in this encounter Advance Directives Latest [...] Advance Directives occurred with: Patient Care Teams Human Resources Assistant Relationship Specialty Start Date End Date Alexy Al MD [address] [place] [address] PCP - General 07/29/08 documented as of this encounter
--- OUTSIDE RECORDS SUMMARY | 2023-06-01 02:26 | External Medical Summary | Summary of Care ---
Author Name Unknown Organization [facility] Address [address] [place] [address] Phone [phone] Care Team Providers Care Transplant Immunologist Name Role Phone Alexy Al MD Primary Care Provider +1- [phone] Encounter Details Date Type Department Care Team (Late st Contact Info) Description 05/18/2023 Telephone Family Practice [facility] [address] [place] [address] Aurea Britton MD [address] [place] [address] Allergies No known active allergiesdocumented as of this encounter (statuses as of 05/26/2023) Medications Medication Sig Dispensed Refills Start Date [...] 1 08/31/2022 4 Active OneTouch Delica Plus [id number] USE TO TEST BLOOD SUGAR TWICE DAILY [...] as of this encounter (statuses as of 05/26/2023) Active Problems Problem Noted Date Diagnosed Date [...] repeat CT. Coronary artery disease invo lving king salmon heart without angina pectoris 05/08/2022 Last Assessment [...] as of this encounter (statuses as of 05/26/2023) Resolved Problems Problem Noted Date Diagnosed Date [...] as of this encounter (statuses as of 05/26/2023) Immunizations Name Administration Dates Next Due COVID-19 [...] Telephone Encounter - Sridevi Rosa LPN - 05/26/2023 8:24 AM EST Requested records * Telephone Encounter - Aurea Britton MD [...] 12:10 PM EST Office Visit Vascular Surgery, [facility] [address] [facility] [place] [address] Jonathan Iverson MD [address] [place] [address] 06/05/2023 12:30 PM EST Home Visit [facility], [facility] [address] [place] [address] Cheryl Ruiz RN 132 [facility] [place] [address] 07/06/2023 2:20 PM EST Office Visit [facility] [address] [place] [phone] Alexy Al MD [address] [place] [address] 08/17/2023 12:40 PM EDT Office Visit Hepatology, [facility] [address] [place] [address] Dayan Sanford DO [address] [place] [address] 10/06/2023 10:40 AM EDT Office Visit [facility] [address] [place] [address] Alexy Al MD [address] [facility] [place] [id number] Health Maintenance Due Date Last Done Comments [...] D LEVEL ONCE IN A LIFETIME-USE SMARTSET# [id number] Completed 01/27/2021, 08/21/2017, 03/08/2017, Additional history exists [...] this encounter Medical Devices Implanted Type Area Egg Processing Supervisor Device Identifier Shelf Expiration Date Model / Serial / Lot Stent Graft [id number] - [id number] - [id number] Implanted:Qty: 1 on 05/09/2022 by Cedrick Phillips MD [place] [facility] MARTIN [id number] 02/11/2025 [id number] / [id number] / [id number] documented as of this encounter Advance Directives [...] Advance Directives occurred with: Patient Care Teams Transplant Immunologist Relationship Specialty Start Date End Date Alexy Al MD [address] [place] [address] PCP - General 07/29/08 documented as of this encounter
--- OUTSIDE RECORDS SUMMARY | 2023-06-01 02:26 | External Medical Summary | Summary of Care ---
Author Name Unknown Organization [facility] Address [address] [place] [address] Phone [phone] Care Team Providers Care Regeneration Operator Name Role Phone Alexy Al MD Primary Care Provider +1- [phone] Encounter Details Date Type Department Care Team (Late st Contact Info) Description 05/18/2023 Telephone Family Practice [facility] [address] [place] [address] Aurea Britton MD [address] [place] [address] Allergies No known active allergiesdocumented as of this encounter (statuses as of 05/24/2023) Medications Medication Sig Dispensed Refills Start Date [...] 1 08/31/2022 4 Active OneTouch Delica Plus [id number] USE TO TEST BLOOD SUGAR TWICE DAILY [...] as of this encounter (statuses as of 05/24/2023) Active Problems Problem Noted Date Diagnosed Date [...] repeat CT. 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 05/08/2022 Last Assessment [...] as of this encounter (statuses as of 05/24/2023) Resolved Problems Problem Noted Date Diagnosed Date [...] as of this encounter (statuses as of 05/24/2023) Immunizations Name Administration Dates Next Due COVID-19 [...] 12:10 PM EST Office Visit Vascular Surgery, [facility] [address] [place] [address] Jonathan Iverson MD [address] [place] [address] 06/05/2023 12:30 PM EST Home Visit [facility] [place], [facility] [address] [place] [address] Cheryl Ruiz RN [address] [place] [address] 07/06/2023 2:20 PM EST Office Visit [place] [address] [place] [phone] Alexy Al MD [address] [place] [address] 08/17/2023 12:40 PM EDT Office Visit Hepatology, [facility] [address] [place] [address] Dayan Sanford DO 132 [place] [address] 10/06/2023 10:40 AM EDT Office Visit [address] [place] [phone] Alexy Al MD [address] [place] [facility] [place] [address] Health Maintenance Due Date Last Done Comments [...] D LEVEL ONCE IN A LIFETIME-USE SMARTSET# [id number] Completed 01/27/2021, 08/21/2017, 03/08/2017, Additional history exists [...] this encounter Medical Devices Implanted Type Area Lens Cutter Device Identifier Shelf Expiration Date Model / Serial / Lot Stent Graft [id number] - [id number] - [id number] Implanted:Qty: 1 on 05/09/2022 by Cedrick Phillips MD at [facility] [place] : MARTIN [id number] 02/11/2025 [id number] 3 / [id number] / [id number] documented as of this encounter Advance Directives [...] Advance Directives occurred with: Patient Care Teams Regeneration Operator Relationship Specialty Start Date End Date Alexy Al MD [address] [place] [address] PCP - General 07/29/08 documented as of this encounter
--- OUTSIDE RECORDS SUMMARY | 2023-06-01 02:26 | External Medical Summary | Summary of Care ---
Author Name Unknown Organization [facility] Address [address] [facility] [place] [address] Phone [phone] Care Team Providers Care Composition Floor Layer Name Role Phone Alexy Al MD Primary Care Provider +1- [phone] Encounter Details Date Type Department Care Team (Late st Contact Info) Description 05/19/2023 9:00 AM EST [facility] [address] [place] [address] Crescencio Santillan PA-C [address] [place] [address] Alcoholic cirrhosis of liver without ascites (HCC)*; Esophageal varices without bleeding, unspecified esophageal varices type (HCC); Chronic heart failure with preserved ejection fraction (HCC); Type 2 diabetes mellitus with diabetic nephropathy, with long-term current use of insulin (HCC); Age-related osteoporosis without current pathological fracture; Advanced care planning/counseling discussion Allergies No known active allergiesdocumented as of this encounter (statuses as of 05/23/2023) Medications Medication Sig Dispensed Refills Start Date [...] IS IV iron anaphylaxis protocol 1000 mL 05/25/2022 [...] Strip 08/31/2022 4 Active OneTouch Delica Plus [id number] USE TO TEST BLOOD SUGAR TWICE DAILY [...] as of this encounter (statuses as of 05/23/2023) Active Problems Problem Noted Date Diagnosed Date [...] repeat CT. Coronary artery disease invo lving [place] heart without angina pectoris 05/08/2022 Last Assessment [...] as of this encounter (statuses as of 05/23/2023) Resolved Problems Problem Noted Date Diagnosed Date [...] as of this encounter (statuses as of 05/23/2023) Immunizations Name Administration Dates Next Due COVID-19 mRNA, LNP-s, No Pre serve, 2-Dose Series ([employer]) 03/10/2021,08/27/2020,08/06/2020 Pneumococcal Conjugate Vacc, 13 Valent (Prevnar) [...] Sign Reading Time Taken Comments Blood Pressure 120/56 05/19/2023 12:29 PM EST Pulse 74 05/19/2023 12:29 PM EST Temperature - - Respiratory Rate - - Oxygen Saturation 99% 05/19/2023 12:29 PM EST Inhaled Oxygen Concentration - - Weight - - Height - - Body Mass Index - - documented in this encounter Functional Status Functional [...] of this encounter Progress Notes * Crescencio Santillan PA-C - 05/19/2023 12:07 PM EST Images from the original note were not included. [facility] Problem Oriented Charting Provider Visit Date: 05/19/2023 Time: 12:08 PM [facility] Sub-Program: Short-Term Management (less than 3 months) [facility] Episode Start Date: No linked episodes Assessment and Plan #1 Alcoholic cirrhosis of liver without ascites (HCC) (Primary) Assessment & Plan: Following with hepatology Grade 2 esophageal varices Continue to encourage alcohol cessation #2 Esophageal varices without bleeding, unspecified esophageal varices type (HCC) #3 Chronic heart failure with preserved ejection fraction (HCC) Assessment & Plan: "RED FLAG" HF Symptoms: [...] Comments: Recently switched from lasix to torsemide #4 Type 2 diabetes mellitus with diabetic nephropathy, with long-term current use of insulin ([facility]) Assessment & Plan: "RED FLAG" Diabetic symptoms: Confusion and Vision Changes Goal HgbA1c <8 Diabetic Complications Renal (example: CKD, Proteinuria, Dialysis) Medication Regimen Metformin Basal/Long Acting Insulin Bolus/Short Acting Insulin DM Secondary Prevention YURI Inhibitor / ARB Moderate-High Intensity Statin Additional Comments Last A1c 7.6 #5 Age-related osteoporosis without current pathological fracture Additional Medical Decision Makin/11- - [facility] - GI bleed, colitis 04/26-04/28/23 - [facility] from [facility]- GI bleed, mesenteric ischemia 05/12-05/14/23 - [facility] - GI bleed, anemia, hepatic cirrhosis Patient lives with spouse Continues to use alcohol despite recommendations against Manages own medications POLST reviewed, DNR, DNI Scheduled appointments in the next 60 days: Future Appointments-next 60 days Date/Time Provider Specialty Dept Phone [facility] [phone] 05/23/2023 10:[address] [facility] Radiology [phone] 05/31/2023 12:10 PM Jonathan Iverson MD Vascular Surgery [phone] 06/05/2023 12:30 PM Cheryl Ruiz RN [facility] [phone] 07/06/2023 2:20 PM (Arrive by 2:05 PM) Alexy Al MD Family Medicine [phone] 08/17/2023 12:40 PM (Arrive by 12:25 PM) Dayan Sanford DO Gastroenterology [phone] 10/06/2023 10:40 AM (Arrive by 10:25 AM) Alexy Al MD Family Medicine [phone] A total of 35 minutes was spent face to face (via video-based telemedicine if designated as a telemedicine visit) Subjective Subjective Is this a Telemedicine Visit? No, this is an Home Visit. Reason For [facility] Visit: Transition of Care Current Concerns: Martine Russell is a 82 year old female seen today for a [facility] provider visit. Today's concerns are: Reports feeling well today Recently returned from [facility] for recurrent GI bleed Has had multiple blood transfusions in the past Reports that PCP has recommended against alcohol, but she only drinks 1 light beer per night, Upon further question, reveals that she occasionally drinks rum, tequila, or whiskey, but not routinely. States that daughter and father have both from alcoholism Aware that drinking is not good for her Denies any pain Denies n/v, diarrhea, constipation Appetite stable Denies blood in stool, black tarry stools Denies sob Ongoing swelling in legs Additional Objective Objective Vitals: 05/19/23 1229 Pulse: 74 SpO2: 99% BP: 120/56 Last Weights: Wt Readings from Last 3 Encounters: 05/18/23 71.9 kg (158 lb 9.6 oz) 05/10/23 71.7 kg (158 lb) 05/04/23 69.5 kg (153 lb 4.8 oz) Last BPs: BP Readings from Last 4 Encounters: 05/19/23 120/56 05/18/23 100/54 05/10/23 114/54 05/04/23 120/60 General: alert and no distress Neuro: alert & oriented x 3 with fluent speech Heart: regular rate & rhythm and +murmur Lungs: no chest wall tenderness, lungs clear to auscultation, no wheeze, no rales, no rhonchi Abdomen: abdomen soft, non-tender, normal bowel sounds, and no rebound or guarding Ext: +2 edema bilat LE Lab Review: I have reviewed the following results: Imaging results in the last 6 months XR KNEE 4 OR MORE VIEWS Result Date: 12/03/2022 IMPRESSION: Severe lateral and to a lesser extent medial and patellofemoral compartment degenerative disease with chondrocalcinosis and moderate knee joint effusion.. THIS DOCUMENT HAS BEEN ELECTRONICALLY SIGNED BY JUANPABLO ANDRADE MD DEXA SCAN/BONE MINERAL AXIAL Result Date: 11/30/2022 S: Fracture risk is based on current National Osteoporosis Foundation (www.nof.org) Clinicians Guide and [place] Association of Clinical Endocrinology (AACE) Guidelines (www.aace.com) and the application of current WHO FRAX tool (https://www.zulema.ac.uk/FRAX/) as well as the 2017 [place] College of Rheumatology Glucocorticoid Induced Osteoporosis (GIOP) Guidelines (rheumatology.org/Practice-Quality/Clinical-Support/Dfdexbmb-Juxidmug-Zinmw lines) using Bone mineral density derived T-scoresand clinical risk factors obtained from the patient questionnaire. 1. The fracture risk is HIGH (based on T-score at or below -2.5) 2. The quality of the examination is GOOD. L4 has been deleted because of the significant variation in bone density from the rest of the lumbar spine. 3. No previous study for comparison. SUGGESTIONS: Information concerning the evalua tion and treatment of osteoporosis can be found at the National Osteoporosis Foundation website (www.nof.org) and [place] Association of Clinical Endocrinology (AACE-www.aace.com). Osteoporosis prevention and treatment begins by modifying risk factors (such as smoking cessation and avoiding alcohol excess) and by participating in weight-bearing activities and exercise. Issues related to fall prevention and home safety should be addressed. Current NOF guidelines suggest 1200 to 1500 mg of calcium from diet and or supplemental sources. It is generally felt best to get calcium from ones diet. Calcium carbonate and calcium citrate are common calcium supplement choices in most local pharmacies. If the patient is taking a proton pump inhibitor, then calcium citrate should be the preferred supplement, if that is necessary. NOF guidelines for vitamin D are 800 to 1000 units of vitamin D3 daily. However, this may best be guided by measurement of 25-OH vitamin-D level, aiming for a level between 30 to 50 units (ng/ml). Additional information can be found at the FRAX website (https://www.zulema.ac.uk/FRAX/), and the [place] College of Rheumatology website (https://www.rheumatology.org /Practice-Quality/Clinical-Support/Clinical-Pr actice-Guidelines). 1. The present treatment with Fosamax/Alendronate may be helping to maintain bone mineral density. in this patient and should be continued. 2. A repeat study should be considered in 2 years, while on therapy WILLA GARCIA M.D. ISCD Certified Clinical Prime Minister Department of Rheumatology [facility] BMP results Recent Labs Units 05/10/23 1211 04/28/23 0813 04/27/23 0644 SODIUM - [facility] mmol/L 138 139 139 POTASSIUM - [facility] mmol/L 4.2 3.9 3.4* CHLORIDE - [facility] mmol/L 100 108* 107 CO2 - [facility] mmol/L 23 23 25 CREATININE - [facility] mg/dL 1.5* 0.8 0.8 BUN - [facility] mg/dL 46* 11 17 Lipid panel results Recent Labs Units 03/07/22 1009 CHOLESTEROL - [facility] mg/dL 120 LDL CHOLESTEROL (CALCULATED) - [facility] mg/dL 58 HDL CHOLESTEROL - [facility] mg/dL 42* TRIGLYCERIDES - [facility] mg/dL 99 CBC results Recent Labs Units 05/16/23 0922 05/10/23 1211 04/28/23 0813 WBC AUTO - [facility] K/uL 4.47 7.09 5.18 HGB - [facility] g/dL 9.0* 8.4* 11.1* HCT - [facility] % 29.4* 27.5* 35.5* PLATELET AUTO - [facility] K/uL 140 132* 118* HbA1c results Recent Labs Units 03/28/23 1426 12/05/22 0817 09/05/22 0907 HEMOGLOBIN A1C - [facility] % 7.6* 7.4* 6.6* TSH results Recent Labs Units 05/10/23 1211 TSH - [facility] uIU/mL 1.13 Hepatic panel results Recent Labs Units 04/28/23 0813 04/27/23 0644 04/26/23 0731 PROTEIN - [facility] g/dL 5.8* 5.3* 5.3* BILIRUBIN, TOTAL - [facility] mg/dL 1.4* 1.2 1.1 ALKALINE PHOSPHATASE - [facility] U/L 55 48 47 AST - [facility] U/L 68* 61* 53* ALT - [facility] U/L 42* 38* 36* Medication Review "Bottles Out" medication review performed today and medication list in EMR updated Crescencio Santillan PA-C 12:08 PM *Communication sent to PCP (via autofax if [facility]), [facility] Care Team members,relevant Specialty Care Physicians* documented in this encounter Miscellaneous Notes * ACP (Advance Care Planning) - Crescnecio Santillan PA-C - 05/23/2023 9:18 AM EST Patient-centered Communication 05/19/2023 The patient/surrogate voluntarily agreed to participate in advance care planning discussion. They were advised that this is a separate service which may incur out of pocket cost in the form of copayment and/or deductibles. Location: Home Individual(s) present for conversation: Patient and Spouse Decisions Synopsis [employer] Most Recent Value Past ~10 years 05/23/2023 09:17 Decisions CPR decision: Declines CPR 05/23/2023 Declines CPR Intubation/Mechanical Ventilation decision: Declines Intubation/mechanical ventilation 05/23/2023 Declines Intubation/mechanical ventilation Non-invasive ventilation or BIPAP decision: Patient chooses non-invasive ventilation. Select interventions below 08/24/2022 Non-Invasive Ventilation Interventions: Oxygen only;CPAP;BIPAP;NIV 08/24/2022 Antibiotic therapy decision: Patient chooses Antibiotic therapy 05/23/2023 Patient chooses Antibiotic therapy Artificial nutrition decision: Declines Artificial nutrition 05/23/2023 Declines Artificial nutrition IV hydration decision: Patient chooses IV hydration 05/23/2023 Patient chooses IV hydration Chemotherapy decision: Undecided about Chemotherapy 08/24/2022 Radiation therapy decision: Undecided about Radiation therapy 08/24/2022 Surgical procedure(s) decision: Patient chooses Surgical procedure 08/24/2022 Blood transfusion decision: Patient chooses Blood transfusion 08/24/2022 Lab draw decision: Patient chooses Lab draws 08/24/2022 Hospice decision: Patient chooses Hospice 06/27/2022 Transport decision: Patient chooses Transport 08/24/2022 Dying at home decision: Patient chooses Dying at home 06/27/2022 Dialysis decision: Undecided about Dialysis 08/24/2022 Additional Comments Discerning What Matters Most to the Patient: Carrie [employer] Most Recent Value Past ~10 years 08/24/2022 14:24 Discerning What Matters Most to the Patient In their own words, patient's UNDERSTANDING of their illness is: That I'm probably going to before long, I figure I am on my way out 06/27/2022 Their current SYMPTOMS include: Shortnes of breath 08/24/2022 Shortnes of breath They say their illness has CHANGED THEIR LIFE by: Less enjoyment (quality of life);Financial strain/stress 06/27/2022 The patient thinks COMPLICATIONS in the future may be: More hospitalizations;More fatigue 08/24/2022 More hospitalizations;More fatigue The patient's HOPES are: Avoid further hospitalization;Avoid the ICU;Avoid the detention;Avoid intubation/mechanical ventilation;Maintain current functional abilities 08/24/2022 Avoid further hospitalization;Avoid the ICU;Avoid the detention;Avoid intubation/mechanical ventilation;Maintain current functional abilities The patient defines LIVING WELL as: spending time with family 08/24/2022 spending time with family The patient's FEARS/WORRIES about illness are: Going back to the hospital;Going to a detention 08/24/2022 Going back to the hospital;Going to a detention Source: Content from [employer] Program Aligning Care With What Matters Most: Synopsis [employer] Most Recent Value Past ~10 years 05/23/2023 09:17 Aligning Care With What Matters Most Interventions/Choices: CPR;Intubation/mechanical ventilation;Antibiotic therapy;Artificial nutrition;IV hydration 05/23/2023 CPR;Intubation/mechanical ventilation;Antibiotic therapy;Artificial nutrition;IV hydration Source: Content from [employer] Program 15 minutes spent in direct zvcc-gx-abhj discussion Crescencio griffin PA-C * Assessment & Plan Note - Crescencio Santillan PA-C - 05/19/2023 5:34 PM EST Associated Problem(s): 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) "RED FLAG" Diabetic symptoms: Confusion and Vision Changes Goal HgbA1c <8 Diabetic Complications Renal (example: CKD, Proteinuria, Dialysis) Medication Regimen Metformin Basal/Long Acting Insulin Bolus/Short Acting Insulin DM Secondary Prevention YURI Inhibitor / ARB Moderate-High Intensity Statin Additional Comments Last A1c 7.6 * Assessment & Plan Note - Crescencio Santillan PA-C - 05/19/2023 5:32 PM EST Associated Problem(s): (HFpEF) heart failure with preserved ejection fraction (HCC) "RED FLAG" HF Symptoms: Leg Swelling (Examples: [...] Comments: Recently switched from lasix to torsemide * Assessment & Plan Note - Crescencio Santillan PA-C - 05/19/2023 5:30 PM EST Associated Problem(s): Hepatic cirrhosis (HCC) Following with hepatology Grade 2 esophageal varices Continue to encourage alcohol cessation documented in this encounter Plan of Treatment Upcoming Encounters Date Type Department Care Team (Late st Contact Info) Description 05/31/2023 12:10 PM EST Office Visit Vascular Surgery, [facility] [address] [place] [address] Jonathan Iverson MD [address] [place] [address] 06/05/2023 12:30 PM EST Home Visit [facility] [address] [place] [address] Cheryl Ruiz RN 132 [place] [address] 07/06/2023 2:20 PM EST Office Visit [address] [place] [phone] Alexy Al MD [address] [place] [address] 08/17/2023 12:40 PM EDT Office Visit Hepatology, [facility] 132 [place] [address] Dayan Sanford DO 132 [place] [address] 10/06/2023 10:40 AM EDT Office Visit [place] [address] [facility] [place] [phone] Alexy Al MD [address] [place] [address] Health Maintenance Due Date Last Done Comments [...] D LEVEL ONCE IN A LIFETIME-USE SMARTSET# [id number] Completed 01/27/2021, 08/21/2017, 03/08/2017, Additional history exists [...] this encounter Medical Devices Implanted Type Area Telesales Professional Device Identifier Shelf Expiration Date Model / Serial / Lot Stent Graft [id number] - [id number] - [id number] Implanted:Qty: 1 on 05/09/2022 by Juanpablo Phillips MD at OR [facility] : MARTIN [id number] 02/11/2025 8545 3 / [id number] / [id number] documented as of this encounter Visit Diagnoses Diagnosis Alcoholic cirrhosis of liver without ascites (HCC)- Primary Alcoholic cirrhosis of liver Esophageal varices without bleeding, unspecified esophageal varices type (HCC) Chronic heart failure with preserved ejection fraction (HCC) Type 2 diabetes mellitus with diabetic nephropathy, with long-term current use of insulin (HCC) Age-related osteoporosis without current pathological fracture Senile osteoporosis Advanced care planning/counseling discussion Other specified counseling documented in this encounter Advance Directives Latest [...] Advance Directives occurred with: Patient Care Teams Composition Floor Layer Relationship Specialty Start Date End Date Alexy Al MD [address] [place] [address] PCP - General 07/29/08 documented as of this encounter
--- OUTSIDE RECORDS SUMMARY | 2023-06-01 02:27 | External Medical Summary | Summary of Care ---
Author Name Unknown Organization [facility] Address [address] [facility] [place] [address] Phone [phone] Care Team Providers Care Monkey Trainer Name Role Phone Alexy Al MD Primary Care Provider +1- [phone] Reason for Visit * Reason Comments Outpatient Testing Encounter Details Date Type Department Care Team (Late st Contact Info) Description 05/16/2023 9:00 AM EST Laboratory Laboratory, [place] [address] [place] [address] [place], Laboratory [address], [place] [id number] Anemia, unspecified type Allergies No known active allergiesdocumented as of this encounter (statuses as of 05/16/2023) Medications Medication Sig Dispensed Refills Start Date [...] 1 08/31/2022 4 Active OneTouch Delica Plus [id number] USE TO TEST BLOOD SUGAR TWICE DAILY [...] MORNING 100 Tablet 1 05/12/2023 4 Active documented as of this encounter (statuses as of 05/16/2023) Active Problems Problem Noted Date Diagnosed Date [...] repeat CT. Coronary artery disease invo lving [place] heart without angina pectoris 05/08/2022 Last Assessment [...] as of this encounter (statuses as of 05/16/2023) Resolved Problems Problem Noted Date Diagnosed Date Resolved Date Mesenteric ischemia 08/03/2022 04/28/20 23 Aortic atherosclerosis 05/20/202207/14 Overview: duplicate Last Assessment & Plan: Continue atorvastatin, asa and plavix BP at goal. Ischemic colitis 05/08/2022 04/28/2023 Acute diastolic heart failure 02/02/2022 03/14/2022 Last Assessment & Plan: -no echo scanned into [facility]. No mention of echo on d/c summary [...] as of this encounter (statuses as of 05/16/2023) Immunizations Name Administration Dates Next Due COVID-19 [...] Team (Late st Contact Info) Description 05/18/2023 11:20 AM EST Office Visit [facility] [address] [facility] [phone] Aurea Britton MD [address] [facility] [place] [address] 05/18/2023 1:00 PM EST [facility] [address] [place] [address] Crescencio Santillan PA-C [address] [address] 05/31/2023 12:10 PM EST Office Visit Vascular Surgery, [facility] 132 [place] [address] Jonathan Iverson MD [address] [facility] [place] [address] 06/05/2023 12:30 PM EST [facility] Visit [facility], [facility] [address] [facility] [place] [address] Cheryl Ruiz, RN 132 [facility] [place] [address] 07/06/2023 2:20 PM EST Office Visit [place] [address] [facility] [place] [phone] Alexy Al MD [address] [place] [address] 08/17/2023 12:40 PM EDT Office Visit Hepatology, [facility] 132 [facility] [place] [address] Dayan Sanford DO 132 [facility] [place] [address] 10/06/2023 10:40 AM EDT Office Visit [facility] [address] [place] [facility] [place] [phone] Alexy Al MD [address] [place] [address] Pending Results Name Type Priority Associated Diagnoses Date /Time CBC WITH WBC DIFFERENTIAL Lab Routine Anemia, unspecified type 05/16/2023 9:22 AM EST CBC Lab Routine Anemia, unspecified type 05/16/2023 9:22 AM EST DIFFERENTIAL, AUTOMATED Lab Routine Anemia, unspecified type 05/16/2023 9:22 AM EST Health Maintenance Due Date Last Done [...] D LEVEL ONCE IN A LIFETIME-USE SMARTSET# [id number] Completed 01/27/2021, 08/21/2017, 03/08/2017, Additional history exists [...] this encounter Medical Devices Implanted Type Area Production Supv Device Identifier Shelf Expiration Date Model / Serial / Lot Stent Graft [id number] - [id number] - [id number] Implanted:Qty: 1 on 05/09/2022 by Cedrick Phillips MD at OR [facility] LIOR : MARTIN [id number] 02/11/2025 [id number] 3 / [id number] / [id number] documented as of this encounter Visit Diagnoses Diagnosis Anemia, unspecified type documented in this encounter Advance Directives Latest [...] Advance Directives occurred with: Patient Care Teams Monkey Trainer Relationship Specialty Start Date End Date Alexy Al MD [address] [place] [address] PCP - General 07/29/08 documented as of this encounter
--- OUTSIDE RECORDS SUMMARY | 2023-06-01 02:27 | External Medical Summary | Summary of Care ---
Author Name Unknown Organization [facility] Address [address] [facility] [place] [address] Phone [phone] Care Team Providers Care Wet End Supervisor Name Role Phone Alexy Al MD Primary Care Provider +1- [phone] Reason for Visit * Reason Onset Date Comments [facility]: Maintenance 05/13/2023 Encounter Details Date Type Department Care Team (Late st Contact Info) Description 05/13/2023 9:30 AM EST Scheduled Telephone [facility], [facility] [place] [address] [facility], Nurse [facility] 132 [place] [address] Allergies No known active allergiesdocumented as of [...] 1 08/31/2022 4 Active OneTouch Delica Plus [id number] USE TO TEST BLOOD SUGAR TWICE DAILY [...] AFTERNOON 100 Tablet 3 03/06/2023 4 Active Hazinem.comuch Verio w/Device Kit Use up to 4 [...] repeat CT. Coronary artery disease invo lving [place] heart without angina pectoris 05/08/2022 [...] encounter Miscellaneous Notes * Telephone Encounter - Beth Go LPN - 05/16/2023 12:51 PM EST Call placed to [facility] pt is not currently admitted. Called pt LMOM to return call. F/U call scheduled * Telephone Encounter - Cheryl Ruiz RN - 05/13/2023 8:19 AM EST Called [facility] and spoke with Farhad. Pt is currently admitted. Please cancel upcoming appts and add to hospital list. Thank you. documented in this encounter Plan of Treatment Upcoming Encounters Date Type Department Care Team (Late st Contact Info) Description 05/18/2023 11:20 AM EST Office Visit [facility] [address] [facility], [place] [phone] Aurea Britton MD [address] [facility] [address] 05/18/2023 1:00 PM EST [facility] Visit [facility] [place], [facility] 132 [facility] [place] [address] Crescencio Santillan PA-C [facility] [place] [address] 05/31/2023 12:10 PM EST Office Visit Vascular Surgery, [facility] [address] [facility] [place] [address] Jonathan Iverson MD [address] [place] [address] 06/05/2023 12:30 PM EST [facility] Visit [facility] [place], [facility] 132 [facility] [place] [address] Cheryl Ruiz, RN [facility] [address] 07/06/2023 2:20 PM EST Office Visit [facility] [address] [facility] [phone] Alexy Al MD [address] [facility] [address] 08/17/2023 12:40 PM EDT Office Visit Hepatology, [facility] 132 [facility] [place] [address] Dayan Sanford DO [address] [place] [address] 10/06/2023 10:40 AM EDT Office Visit [facility] [address] [facility] [phone] Alexy Al MD [address] [place] [address] Health Maintenance Due Date Last Done Comments [...] D LEVEL ONCE IN A LIFETIME-USE SMARTSET# [id number] Completed 01/27/2021, 08/21/2017, 03/08/2017, Additional history exists [...] this encounter Medical Devices Implanted Type Area Skin Toggler Device Identifier Shelf Expiration Date Model / Serial / Lot Stent Graft [id number] - [id number] - [id number] Implanted:Qty: 1 on 05/09/2022 by Cedrick Phillips MD at OR [facility] GETINGE : MARTIN [id number] 02/11/2025 [id number] 3 / [id number] / [id number] documented as of this encounter Advance Directives [...] Advance Directives occurred with: Patient Care Teams Wet End Supervisor Relationship Specialty Start Date End Date Alexy Al MD [address] [place] [address] PCP - General 07/29/08 documented as of this encounter
--- OUTSIDE RECORDS SUMMARY | 2023-06-01 02:27 | External Medical Summary | Summary of Care ---
Author Name Unknown Organization [facility] Address [address] [place] [address] Phone [phone] Care Team Providers Care Teletype Operator Name Role Phone Alexy Al MD Primary Care Provider +1- [phone] Encounter Details Date Type Department Care Team (Late st Contact Info) Description 05/18/2023 Telephone Family Practice [facility] [address] [place] [address] Aurea Britton MD [address] [place] [address] Allergies No known active allergiesdocumented as of this encounter (statuses as of 05/18/2023) Medications Medication Sig Dispensed Refills Start Date [...] 1 08/31/2022 4 Active OneTouch Delica Plus [id number] USE TO TEST BLOOD SUGAR TWICE DAILY [...] as of this encounter (statuses as of 05/18/2023) Active Problems Problem Noted Date Diagnosed Date [...] repeat CT. Coronary artery disease invo lving [place] heart without angina pectoris 05/08/2022 Last Assessment [...] as of this encounter (statuses as of 05/18/2023) Resolved Problems Problem Noted Date Diagnosed Date [...] as of this encounter (statuses as of 05/18/2023) Immunizations Name Administration Dates Next Due COVID-19 mRNA, LNP-s, No Pre serve, 2-Dose Series (Lysanda) 03/10/2021,08/27/2020,08/06/2020 Pneumococcal Conjugate Vacc, 13 Valent (Prevnar) [...] Description 05/19/2023 9:00 AM EST Home Visit [facility] [address] [place] [address] Crescencio Santillan PA-C [address] [address] 05/23/2023 9:00 AM EST Imaging Vascular Lab, [address] [place] [address] 05/23/2023 10:00 AM EST Imaging Vascular Lab, [address] [place] [address] 05/31/2023 12:10 PM EST Office Visit Vascular Surgery, [facility] 132 [facility] [address] Jonathan Iverson MD [address] [place] [place] [address] 06/05/2023 12:30 PM EST [facility] Visit [facility] 132 [facility] [place] [address] Cheryl Ruiz RN 132 [place] [address] 07/06/2023 2:20 PM EST Office Visit [place] [address] [place] [facility] [place] [phone] Alexy Al MD [address] [place] [address] 08/17/2023 12:40 PM EDT Office Visit Hepatology, [facility] [address] [facility] [place] [address] Dayan Sanford DO 132 [place] [address] 10/06/2023 10:40 AM EDT Office Visit [place] [address] [place] [facility] [place] [phone] Alexy Al MD [address] [place] [address] Health Maintenance Due Date Last Done Comments [...] D LEVEL ONCE IN A LIFETIME-USE SMARTSET# [id number] Completed 01/27/2021, 08/21/2017, 03/08/2017, Additional history exists [...] encounter Medical Devices Implanted Type Area Director Of Cardiology Device Identifier Shelf Expiration Date Model / Serial / Lot Stent Graft [id number] - [id number] - [id number] Implanted:Qty: 1 on 05/09/2022 by Cedrick Phillips MD at OR [facility] [place] : MARTIN [id number] 02/11/2025 8545 3 / [id number] / [id number] documented as of this encounter Advance Directives [...] Advance Directives occurred with: Patient Care Teams Teletype Operator Relationship Specialty Start Date End Date Alexy Al MD [address] [place] [address] PCP - General 07/29/08 documented as of this encounter
--- OUTSIDE RECORDS SUMMARY | 2023-06-01 02:27 | External Medical Summary | Summary of Care ---
Author Name Unknown Organization [facility] Address [address] [facility] [place] [address] Phone [phone] Care Team Providers Care Toby Maker Name Role Phone Alexy Al MD Primary Care Provider +1- [phone] Reason for Visit * Reason Onset Date Comments [facility]: Maintenance 05/17/2023 Encounter Details Date Type Department Care Team (Late st Contact Info) Description 05/17/2023 11:30 AM EST Scheduled Telephone [facility], [facility] [address] [place] [address] Coordinator, [facility] [address] [place] [address] Allergies No known active allergiesdocumented as of this encounter (statuses as of 05/17/2023) Medications Medication Sig Dispensed Refills Start Date [...] 1 08/31/2022 4 Active OneTouch Delica Plus [id number] USE TO TEST BLOOD SUGAR TWICE DAILY [...] AFTERNOON 100 Tablet 3 03/06/2023 4 Active Loop Appuch Verio w/Device Kit Use up to 4 [...] as of this encounter (statuses as of 05/17/2023) Active Problems Problem Noted Date Diagnosed Date [...] repeat CT. Coronary artery disease invo lving [place] heart without angina pectoris 05/08/2022 Last [...] as of this encounter (statuses as of 05/17/2023) Resolved Problems Problem Noted Date Diagnosed Date [...] as of this encounter (statuses as of 05/17/2023) Immunizations Name Administration Dates Next Due COVID-19 [...] encounter Miscellaneous Notes * Telephone Encounter - Meche Rios RN - 05/17/2023 11:15 AM EST Images from the original note were not included. [facility] Telephonic Nurse Follow-Up Call [facility] Subprogram: Short-Term Management (less than 3 months) Follow Up Call Type: Routine follow up call / Status Check Acute issue requiring follow-up call: Other: Hospital discharge Objective: 05/10/2023 11:17 AM 05/04/2023 12:32 PM 04/28/2023 11:00 AM 04/28/2023 5:51 AM 04/28/2023 2:07 AM VITALS ACROSS ENCOUNTERS BP 114/54 120/60 130/45 132/47 126/40 Pulse 91 80 71 81 75 Weight 71.7 kg 69.5 kg BMI 27.99 kg/m2 27.16 kg/m2 Lab Results Component Value Date PROTEIN - [facility] 5.8 (L) 04/28/2023 WBC AUTO - [facility] 4.47 05/16/2023 Lab Results Component Value Date WBC AUTO - [facility] 4.47 05/16/2023 HGB - [facility] 9.0 (L) 05/16/2023 PLATELET AUTO - [facility] 140 05/16/2023 Lab Results Component Value Date SODIUM - [facility] 138 05/10/2023 POTASSIUM - [facility] 4.2 05/10/2023 MAGNESIUM - [facility] 1.8 04/28/2023 CO2 - [facility] 23 05/10/2023 CREATININE - [facility] 1.5 (H) 05/10/2023 ESTIMATED GLOMERULAR FILTRATION RATE - [facility] 35 (L) 05/10/2023 ALBUMIN - [facility] 2.9 (L) 04/28/2023 AST - [facility] 68 (H) 04/28/2023 ALT - [facility] 42 (H) 04/28/2023 ALKALINE PHOSPHATASE - [facility] 55 04/28/2023 No results found for: "PRO BNP", "LEFT VENTRICULAR EJECTION FRACTION" Remote Patient Monitoring: Oxygen Needs: NO supplemental oxygen needs identified DME Needs: NO DME needs identified Medications: Was instructed to stop Plavix until seen by PCP office in AM and Crescencio Santillan in PM Subjective: Condition Status: Symptoms resolved and back to baseline Current Concerns: Spoke with Martine, states she came home from [facility] on 05/14/23 for a GI bleed due diverticulitis, was told to stop her Plavix and had antibiotic therapy while in the hospital, no abx at home, Has PCPappt tomorrow morning and [place] appt in afternoon Disposition: Provider Home Visit scheduled Future Visits Scheduled: Future Appointments-next 60 days Date/Time Provider Specialty Dept Phone 05/17/2023 11:30 AM CoordinatorMarta [facility] [phone] 05/18/2023 11:20 AM (Arrive by 11:05 AM) Aurea Britton MD Family Medicine [phone] 05/18/2023 1:00 PM Crescencio Santillan PA-C [facility] [phone] 05/23/2023 9:00 AM VAS US4 [facility] Radiology [phone] 05/23/2023 10:00 AM VASC US4 [facility] Radiology [phone] 05/31/2023 12:10 PM Jonathan Iverson MD Vascular Surgery [phone] 06/05/2023 12:30 PM Cheryl Ruiz RN [facility] [phone] 07/06/2023 2:20 PM (Arrive by 2:05 PM) Alexy Al MD Family Medicine [phone] 08/17/2023 12:40 PM (Arrive by 12:25 PM) Dayan Sanford DO Gastroenterology [phone] 10/06/2023 10:40 AM (Arrive by 10:25 AM) Alexy Al MD Family Medicine [phone] Meche Rios, LIBBY documented in this encounter Plan of Treatment Upcoming Encounters Date Type Department Care Team (Late st Contact Info) Description 05/18/2023 11:20 AM EST Office Visit [place] [address] [place] [phone] Aurea Britton MD [address] [place] [address] 05/18/2023 1:00 PM EST Home Visit [facility], [facility] [address] [place] [address] Crescencio Santillan PA-C [address] [place] [address] 05/23/2023 9:00 AM EST Imaging Vascular Lab, [facility] 2nd Floor, [place] [address] [place] [address] 05/23/2023 10:00 AM EST Imaging Vascular Lab, [facility] 2nd [facility] [place] [address] 05/31/2023 12:10 PM EST Office Visit Vascular Surgery, [facility] 132 [facility] [place] [address] Jonathan Iverson MD [address] [place] [address] 06/05/2023 12:30 PM EST Home Visit [facility], [facility] [address] [facility] [place] [address] Cheryl Ruiz RN [facility] [place] [address] 07/06/2023 2:20 PM EST [address] [phone] Alexy Al MD [address] [place] [address] 08/17/2023 12:40 PM EDT Office Visit Hepatology, [facility] [address] [facility] [place] [address] Dayan Sanford DO 132 [facility] [place] [address] 10/06/2023 10:40 AM EDT [facility] [address] [facility] [place] [phone] Alexy Al MD [address] [facility] [address] Health Maintenance Due Date Last Done Comments [...] D LEVEL ONCE IN A LIFETIME-USE SMARTSET# [id number] Completed 01/27/2021, 08/21/2017, 03/08/2017, Additional history exists [...] this encounter Medical Devices Implanted Type Area Typewriter Mechanic Device Identifier Shelf Expiration Date Model / Serial / Lot Stent Graft [id number] - [id number] - [id number] Implanted:Qty: 1 on 05/09/2022 by Cedrick Phillips MD at [facility] GET[place]E : MARTIN [id number] 02/11/2025 [id number] 3 / [id number] / [id number] documented as of this encounter Advance Directives [...] Advance Directives occurred with: Patient Care Teams Toby Maker Relationship Specialty Start Date End Date Alexy Al MD [address] [place] [address] PCP - General 07/29/08 documented as of this encounter
--- OUTSIDE RECORDS SUMMARY | 2023-06-01 02:27 | External Medical Summary | Summary of Care ---
Author Name Unknown Organization [facility] Address [address] [place] [address] Phone [phone] Care Team Providers Care Nipple Maker Name Role Phone Alexy Al MD Primary Care Provider +1- [phone] Reason for Visit * Reason Comments Hospital Follow-Up They stopped her Yeyo vix in the hospital suppose find out today from doctor if to restart Encounter Details Date Type Department Care Team (Latest Contact Info) Description 05/18/2023 11:20 AM EST Office Visit [facility] [address] [place] [address] Aurea Britton MD [address] [place] [address] Gastrointestinal hemorrhage, unspecified gastrointestinal hemorrhage type*; DM type 2 nursing care encounter (HCC); Esophageal varices without bleeding, unspecified esophageal varices type (HCC); Type 2 diabetes mellitus with diabetic nephropathy, with long-term current use of insulin (HCC); Chronic heart failure with preserved ejection fraction (HCC); Superior mesenteric artery stenosis (HCC); Hyperparathyroidism, primary (HCC); HTN, goal below 140/90; Atherosclerosis of [place] coronary artery without angina pectoris, unspecified whether [place] or transplanted heart; Dyslipidemia, goal LDL below [...] Strip 3 024 Active OneTouch Delica Plus Inilkj62S USE TO TEST BLOOD SUGAR TWICE DAILY [...] repeat CT. Coronary artery disease invo lving [place] heart without angina pectoris 05/08/2022 Last Assessment [...] mRNA, LNP-s, No Pre serve, 2-Dose Series ([employer]) 03/10/2021,08/27/2020,08/06/2020 Pneumococcal Conjugate Vacc, 13 Valent [...] calluses yourself. Talk to your doctor or security installer (a doctor who specializes in foot care) [...] the area doesnt appear to be healing. [phone] [employer], [address] [place] [address], [place] [address]. All rights reserved. 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, Z86.73 Coronary artery disease involving [place] heart without angina pectoris I25.10 (HFpEF) heart [...] DAILY 200 Strip 1 OneTouch Delica Plus [id number] USE TO TEST BLOOD SUGAR TWICE DAILY [...] performed by Elian Hernandez MD at ENDOSCOPY [facility] IR ARTERIOGRAM VISCERAL N/A 05/09/2022 IMAGING SUPERVISION & INTERPRETATION VISCERAL, SELECTIVE performed by Cedrick Phillips MD at [facility] OPEN BRACHIAL ARTERY EXPOSURE FOR ENDOVASCULAR PROSTHESIS, UNILAT N/A 05/09/2022 OPEN BRACHIAL ARTERY EXPOSURE FOR ENDOVASCULAR PROSTHESIS performed by Cedrick Phillips MD at OR [facility] PARTIAL HYSTERECTOMY 1986 ovaries remain REMOVAL OF TONSILS, UNDER AGE 12 REMOVE CATARACT, INSERT LENS PROSTH Bilateral 2016 REMOVE GALLBLADDER STENT, COATED/COVERED, WITH DELIVERY SYSTEM 09/16/1994 Palmaz-Gamal balloon expandable GW MRI safe Review of patient's allergies indicates: No Known Allergies Family History Problem Relation Age of Onset Cancer Brother Stroke Mother 58 Heart Disorder Brother hx of several [place] Heart Disorder Father [place] Diabetes Mother IDDM Diabetes Father Diabetes Brother Diabetes Brother Diabetes Brother Diabetes Sister Cancer None Thyroid Disorder None Family Status Relation Status Mo at age 78 stroke at age 58, hx of several [place] Fa at age 80 [place], DM Sis Alive DM Bro Alive DM Bro Alive DM Bro at age 70 DM, heart, found at home, hx of several [place] Barbara Alive Barbara Alive Son Alive Bro [...] (HCC) HTN, goal below 140/90 Atherosclerosis of [place] coronary artery without angina pectoris, unspecified whether [place] or transplanted heart Dyslipidemia, goal LDL below [...] with Hospital Follow-Up documented in this encounter Plan of Treatment Upcoming Encounters Date Type Department Care Team (Late st Contact Info) Description 05/19/2023 9:00 AM EST Home Visit [facility] [address] [place] [address] Crescencio Santillan PA-C [address] [place] [address] 05/23/2023 9:00 AM EST Imaging Vascular Lab, [facility] 2nd [facility] [address] [address] 05/23/2023 10:00 AM EST Imaging Vascular Lab, [facility] 2nd [facility] [address] [place] [address] 05/31/2023 12:10 PM EST Office Visit Vascular Surgery, [facility] [address] [place] [address] oJnathan Iverson MD [address] [place] [address] 06/05/2023 12:30 PM EST [facility] Visit [facility], [facility] [address] [place] [address] Cheryl Ruiz, RN [address] [place] [address] 07/06/2023 2:20 PM EST Office Visit [place] [address] [place] [address] Alexy Al MD [address] [place] [address] 08/17/2023 12:40 PM EDT Office Visit Hepatology, [facility] [address] [place] [address] Dayan Sanford DO [address] [place] [address] 10/06/2023 10:40 AM EDT Office Visit [place] [address] [place] [address] Alexy Al MD [address] [place], [place] [address] Scheduled Orders Name Type Priority Associated Diagnoses [...] D LEVEL ONCE IN A LIFETIME-USE SMARTSET# [id number] Completed 01/27/2021, 08/21/2017, 03/08/2017, Additional history exists [...] this encounter Medical Devices Implanted Type Area Theater Set Production Designer Device Identifier Shelf Expiration Date Model / Serial / Lot Stent Graft [id number] - [id number] - [id number] Implanted:Qty: 1 on 05/09/2022 by Cedrick Phillips MD at OR [facility] DHIRAJINGE : MARTIN [id number] 02/11/2025 8545 3 / [id number] / [id number] documented as of this encounter Visit Diagnoses [...] below 140/90 Unspecified essential hypertension Atherosclerosis of [place] coronary artery without angina pectoris, unspecified whether [place] or transplanted heart Dyslipidemia, goal LDL below [...] Advance Directives occurred with: Patient Care Teams Nipple Maker Relationship Specialty Start Date End Date Alexy Al MD [address] [place] [address] PCP - General 07/29/08 documented as of this encounter
--- OUTSIDE RECORDS SUMMARY | 2023-06-01 02:27 | External Medical Summary | Summary of Care ---
Author Name Unknown Organization [facility] Address [address] [place] [address] Phone [phone] Care Team Providers Care Meeting Specialist Name Role Phone Alexy Al MD Primary Care Provider +1- [phone] Encounter Details Date Type Department Care Team (Late st Contact Info) Description 05/16/[address] [facility] [place] [address] [place] [facility] [place] [address] Santi Madden MD [address] [place] [address] Anemia, unspecified type* Allergies No known active allergiesdocumented as [...] Strip 08/31/2022 4 Active OneTouch Delica Plus Uloppc37J USE TO TEST BLOOD SUGAR TWICE DAILY 400 Each 1 08/31/2022 4 Active NovoLIN 70/30 (70-30) 100 UNIT/ML Subcutaneous SuspensionIndicatio ns:Type 2 diabetes mellitus with hemoglobin A1c goal of less than 8.0% ([facility]) INJECT 25 UNITS SUBCUTANEOUSLY BEFORE BREAKFAST [...] repeat CT. Coronary artery disease invo lving [place] heart without angina pectoris 05/08/2022 Last Assessment [...] Assessment & Plan: -no echo scanned into Xray [employer]. No mention of echo on d/c summary [...] Description 05/18/2023 11:20 AM EST Office Visit [facility] [address] [facility] [address] Aurea Britton MD [address] [facility] [place] [address] 05/18/2023 1:00 PM EST Home Visit [facility]inger at [facility] [address] [address] Crescencio Santillan PA-C [address] [place] [address] 05/31/2023 12:10 PM EST Office Visit Vascular Surgery, [facility] 132 [place] [address] Jonathan Iverson MD [address] [place] [address] 06/05/2023 12:30 PM EST [facility] Visit [facility], [facility] 132 [place] [address] Cheryl Ruiz RN 132 [facility] [place] [address] 07/06/2023 2:20 PM EST Office Visit [facility] [address] [place] [place] [facility] [place] [phone] Alexy Al MD [address] [place] [address] 08/17/2023 12:40 PM EDT Office Visit Hepatology, [facility] 132 [place] [address] Dayan Sanford DO [address] [facility] [place] [address] 10/06/2023 10:40 AM EDT Office Visit [facility] [address] [place] [facility] [place] [facility] [place] [phone] Alexy Al MD [address] [place] [address] Pending Results Name Type Priority Associated Diagnoses Date /Time CBC WITH WBC DIFFERENTIAL Lab Routine Anemia, unspecified type 05/16/2023 9:22 AM EST Scheduled Orders Name Type Priority Associated Diagnoses Orde r Schedule CBC WITH WBC DIFFERENTIAL Lab Routine Anemia, unspecified type Expected: 05/16/2023, Expires: 05/16/2024 Health Maintenance Due Date Last Done Comments [...] D LEVEL ONCE IN A LIFETIME-USE SMARTSET# [id number] Completed 01/27/2021, 08/21/2017, 03/08/2017, Additional history exists [...] this encounter Medical Devices Implanted Type Area Brine Tank Separator Operator Device Identifier Shelf Expiration Date Model / Serial / Lot Stent Graft [id number] - [id number] - [id number] Implanted:Qty: 1 on 05/09/2022 by Cedrick Phillips MD at [facility] LIOR : MARTIN [id number] 02/11/2025 8545 3 / [id number] / [id number] documented as of this encounter Visit Diagnoses Diagnosis Anemia, unspecified type- Primary documented in this encounter Advance [...] Advance Directives occurred with: Patient Care Teams Meeting Specialist Relationship Specialty Start Date End Date Alexy Al MD [address] [place] [address] PCP - General 07/29/08 documented as of this encounter
--- OUTSIDE RECORDS SUMMARY | 2023-06-01 02:27 | External Medical Summary | Summary of Care ---
Author Name Unknown Organization [facility] Address [address] [facility] [place] [address] Phone [phone] Care Team Providers Care Road Roller Engineer Name Role Phone Alexy Al MD Primary Care Provider +1- [phone] Reason for Visit * Reason Onset Date Comments [facility]: Maintenance 05/13/2023 Encounter Details Date Type Department Care Team (Late st Contact Info) Description 05/13/2023 9:30 AM EST Scheduled Telephone [facility], [facility] [place] [address] [facility], Nurse [facility] 132 [place] [address] Allergies No known active allergiesdocumented as of [...] 1 08/31/2022 4 Active OneTouch Delica Plus Roxlzw01H USE TO TEST BLOOD SUGAR TWICE DAILY [...] AFTERNOON 100 Tablet 3 03/06/2023 4 Active [employer] Verio w/Device Kit Use up to 4 [...] repeat CT. Coronary artery disease invo lving [place] heart without angina pectoris 05/08/2022 Last Assessment [...] 05/16/2023 12:51 PM EST Call placed to [facility] pt is not currently admitted. Called pt LMOM to return call. F/U call scheduled * Telephone Encounter - Cheryl Ruiz RN - 05/13/2023 8:19 AM EST Called [facility] and spoke with Farhad. Pt is currently admitted. Please cancel upcoming appts and add to hospital list. Thank you. documented in this encounter Plan of Treatment Upcoming Encounters Date Type Department Care Team (Late st Contact Info) Description 05/18/2023 11:20 AM EST Office Visit [facility] [address] [facility], [place] [phone] Aurea Britton MD [address] [facility] [address] 05/18/2023 1:00 PM EST [facility] Visit [facility] [place], [facility] 132 [facility] [place] [address] Crescencio Santillan PA-C [facility] [place] [address] 05/31/2023 12:10 PM EST Office Visit Vascular Surgery, [facility] [address] [facility] [place] [address] Jonathan Iverson MD [address] [place] [address] 06/05/2023 12:30 PM EST Home Visit [facility] [place], [facility] 132 [place] [address] Cheryl Ruiz, RN [facility] [address] 07/06/2023 2:20 PM EST Office Visit [facility] [address] [facility] [phone] Alexy Al MD [address] [facility] [address] 08/17/2023 12:40 PM EDT Office Visit Hepatology, [facility] 132 [place] [address] Dayan Sanford DO [facility] [place] [address] 10/06/2023 10:40 AM EDT Office Visit [facility] [address] [facility] [phone] Alexy Al MD [address] [place] [address] Health Maintenance Due Date Last Done Comments [...] D LEVEL ONCE IN A LIFETIME-USE SMARTSET# [id number] Completed 01/27/2021, 08/21/2017, 03/08/2017, Additional history exists [...] this encounter Medical Devices Implanted Type Area Tax Economist Device Identifier Shelf Expiration Date Model / Serial / Lot Stent Graft [id number] - [id number] - [id number] Implanted:Qty: 1 on 05/09/2022 by Cedrick Phillips MD at OR [facility] GETINGE : MARTIN [id number] 02/11/2025 8545 3 / [id number] / [id number] documented as of this encounter Advance Directives [...] Advance Directives occurred with: Patient Care Teams Road Roller Engineer Relationship Specialty Start Date End Date Alexy Al MD [address] [place] [address] PCP - General 07/29/08 documented as of this encounter
--- OUTSIDE RECORDS SUMMARY | 2023-06-01 02:28 | External Medical Summary | Summary of Care ---
Author Name Unknown Organization [facility] Address [address] [place] [address] Phone [phone] Care Team Providers Care Weather Analyst Name Role Phone Alexy Al MD Primary Care Provider +1- [phone] Encounter Details Date Type Department Care Team (Late st Contact Info) Description 05/16/2023 Orders Only [facility] [place] [address] [place] [facility] [place] [address] Santi Madden MD [address] [place] [address] Allergies No known active allergiesdocumented as of [...] Strip 08/31/2022 4 Active OneTouch Delica Plus Oimoen68K USE TO TEST BLOOD SUGAR TWICE DAILY 400 Each 1 08/31/2022 4 Active NovoLIN 70/30 (70-30) 100 UNIT/ML Subcutaneous SuspensionIndicatio ns:Type 2 diabetes mellitus with hemoglobin A1c goal of less than 8.0% ([facility]) INJECT 25 UNITS SUBCUTANEOUSLY BEFORE BREAKFAST AND [...] AFTERNOON 100 Tablet 3 03/06/2023 4 Active [employer]er Verio w/Device Kit Use up to 4 [...] repeat CT. Coronary artery disease invo lving [place] heart without angina pectoris 05/08/2022 Last Assessment [...] Description 05/18/2023 11:20 AM EST Office Visit [facility] [address] [place] [address] Aurea Britton MD [address] [place] [address] 05/18/2023 1:00 PM EST Home Visit [facility] [address] [address] Crescencio Santillan PA-C [address] [place] [address] 05/31/2023 12:10 PM EST Office Visit Vascular Surgery, [facility] 132 [place] [address] Jonathan Iverson MD [address] [place] [address] 06/05/2023 12:30 PM EST [facility] Visit [facility], [facility] 132 [place] [address] Cheryl Ruiz RN 132 [place] [address] 07/06/2023 2:20 PM EST Office Visit [facility] [address] [place] [phone] Alexy Al MD [address] [place] [address] 08/17/2023 12:40 PM EDT Office Visit Hepatology, [facility] 132 [place] [address] Dayan Sanford DO 132 [place] [address] 10/06/2023 10:40 AM EDT Office Visit [place] [address] [place] [phone] Alexy Al MD [address] [place] [facility] [place] [address] Health Maintenance Due Date Last Done Comments [...] D LEVEL ONCE IN A LIFETIME-USE SMARTSET# [id number] Completed 01/27/2021, 08/21/2017, 03/08/2017, Additional history exists [...] this encounter Medical Devices Implanted Type Area Tip Stretcher Device Identifier Shelf Expiration Date Model / Serial / Lot Stent Graft [id number] - [id number] - [id number] Implanted:Qty: 1 on 05/09/2022 by Cedrick Phillips MD at [place] [facility] GETINGE : MARTIN [id number] 02/11/2025 8545 3 / [id number] / [id number] documented as of this encounter Advance Directives [...] Advance Directives occurred with: Patient Care Teams Weather Analyst Relationship Specialty Start Date End Date Alexy Al MD [address] [place] [facility] [place] [address] PCP - General 07/29/08 documented as of this encounter
--- OUTSIDE RECORDS SUMMARY | 2023-06-01 02:28 | External Medical Summary ---
Author Name Unknown Address Unknown Organization [id number]:LABORATORY [facility] - [facility] [address] [address] Laboratory Report Ordering Provider Test Date Status SINAN ZARCO 05/16/2023 09:22:32 Final Observation Date Value Abnormality Reference (Units ) Status WBC, Total 05/16/2023 09:22:32 4.47 4.00-10.80 (K/uL) Final RBC 05/16/2023 09:22:32 3.12 3.85-5.15 (M/uL) Final Hemoglobin 05/16/2023 09:22:32 9.0 Below low normal 12.0-15.3 (g/dL) Final HCT 05/16/2023 09:22:32 29.4 Below low normal 36.0-45.2 (%) Final MCV 05/16/2023 09:22:32 94.2 81.5-97.5 (fL) Final MCH 05/16/2023 09:22:32 28.8 27.0-34.0 (pg) Final MCHC 05/16/2023 09:22:32 30.6 32.0-36.0 (g/dL) Final RDW 05/16/2023 09:22:32 18.7 11.5-15.5 (%) Final Platelets 05/16/2023 09:22:32 140 140-400 (K/uL) Final MPV 05/16/2023 09:22:32 12.4 6.6-11.1 (fL) Final Nucleated erythrocytes/100 leukocytes [Ratio] in Blood by Automated count 05/16/2023 09:22:32 0 <=0 (/100 WBCs) Final Performing Location LABORATORY [facility] - [facility] [place] [address]
--- OUTSIDE RECORDS SUMMARY | 2023-06-01 02:28 | External Medical Summary | Summary of Care ---
Author Name Unknown Organization [facility] Address [address] [facility] [place] [address] Phone [phone] Care Team Providers Care Crew Leader Name Role Phone Alexy Al MD Primary Care Provider +1- [phone] Reason for Visit * Reason Onset Date Comments [facility]: Maintenance 05/13/2023 Encounter Details Date Type Department Care Team (Late st Contact Info) Description 05/13/2023 9:30 AM EST Scheduled Telephone [facility], [facility] [address] [facility] [place] [address] [facility], Nurse [facility] 132 [place] [address] Allergies No known active allergiesdocumented as of this encounter (statuses as of 05/13/2023) Medications Medication Sig Dispensed Refills Start Date [...] 1 08/31/2022 4 Active OneTouch Delica Plus Oqrmvr93U USE TO TEST BLOOD SUGAR TWICE DAILY [...] AFTERNOON 100 Tablet 3 03/06/2023 4 Active RENTISHuch Verio w/Device Kit Use up to 4 [...] as of this encounter (statuses as of 05/13/2023) Active Problems Problem Noted Date Diagnosed Date [...] repeat CT. Coronary artery disease invo lving [place] heart without angina pectoris 05/08/2022 Last Assessment [...] as of this encounter (statuses as of 05/13/2023) Resolved Problems Problem Noted Date Diagnosed Date [...] as of this encounter (statuses as of 05/13/2023) Immunizations Name Administration Dates Next Due COVID-19 [...] 1:58 PM EDT Sexual Orientation Straight 08/11/2022 1 :58 PM EDT Job Start Date Occupation Industry [...] encounter Miscellaneous Notes * Telephone Encounter - Cheryl Ruiz RN - 05/13/2023 8:19 AM EST Called [facility] and spoke with Farhad. Pt is currently admitted. Please cancel upcoming appts and add to hospital list. Thank you. documented in this encounter Plan of Treatment Upcoming Encounters Date Type Department Care Team (Late st Contact Info) Description 05/18/2023 1:00 PM EST [facility] [address] [place] [address] Crescencio Santillan PA-C [address] [place] [address] 05/31/2023 12:10 PM EST Office Visit Vascular Surgery, [facility] 132 [place] [address] Jonathan Iverson MD [address] [place] [facility] [place] [address] 06/05/2023 12:30 PM EST [facility] Visit [facility], [facility] 132 [facility] [place] [address] Cheryl Ruiz RN 132 [place] [address] 07/06/2023 2:20 PM EST Office Visit [address] [place] [phone] Alexy Al MD [address] [facility] [place] [address] 08/17/2023 12:40 PM EDT Office Visit Hepatology, [facility] 132 [facility] [place] [address] Dayan Sanford DO [address] [facility] [address] 10/06/2023 10:40 AM EDT Office Visit [facility] [address] [place] [address] [place] [phone] Alexy Al MD [address] [facility] [place] [address] Health Maintenance Due Date Last Done Comments [...] D LEVEL ONCE IN A LIFETIME-USE SMARTSET# [id number] Completed 01/27/2021, 08/21/2017, 03/08/2017, Additional history exists [...] this encounter Medical Devices Implanted Type Area Dump Attendant Device Identifier Shelf Expiration Date Model / Serial / Lot Stent Graft [id number] - [id number] - [id number] Implanted:Qty: 1 on 05/09/2022 by Cedrick Phillips MD at [facility] GETINGE : MARTIN [id number] 02/11/2025 8545 3 / [id number] / [id number] documented as of this encounter Advance Directives [...] Advance Directives occurred with: Patient Care Teams Crew Leader Relationship Specialty Start Date End Date Alexy Al MD [address] [place] [address] PCP - General 07/29/08 documented as of this encounter
--- OUTSIDE RECORDS SUMMARY | 2023-06-01 02:28 | External Medical Summary ---
Author Name Unknown Address Unknown Organization K01:[facility]ORY [facility] - [address] [place] [facility] [place] [address] Laboratory Report Ordering Provider Test Date Status SINAN ZARCO 05/16/2023 09:22:32 Final Observation Date Value Abnormality Reference (Units ) Status SYNC LEUKOCYTES IN BLOOD BY AUTOMATED COUNT 05/16/2023 09:22:32 4.47 4.00-10.80 (K/uL) Final Segs 05/16/2023 09:22:32 57.1 40.0-75.0 (%) Final Lymphs % 05/16/2023 09:22:32 28.2 18.0-42.0 (%) Final Monos 05/16/2023 09:22:32 10.3 1.0-11.0 (%) Final Eosinophils 05/16/2023 09:22:32 2.9 0.0-6.0 (%) Final Basos 05/16/2023 09:22:32 1.3 0.0-2.0 (%) Final Immature Granulocyte, Percent 05/16/2023 09:22:32 0.2 0.0-2.0 (%) Final Absolute Segs 05/16/2023 09:22:32 2.55 1.80-7.70 (K/uL) Final Lymphs, absolute 05/16/2023 09:22:32 1.26 1.00-4.80 (K/ul) Final Monos, Abs 05/16/2023 09:22:32 0.46 0.00-1.10 (K/uL) Final Eos, Abs 05/16/2023 09:22:32 0.13 0.00-0.70 (K/uL) Final Basos, Abs 05/16/2023 09:22:32 0.06 0.00-0.20 (K/uL) Final Immature Granulocytes, Number 05/16/2023 09:22:32 0.01 0.00-0.20 (K/uL) Final Performing Location LAB[facility]ORY [facility] - [address] [facility] [address]
[2023-06-01] MEDS ORDERED: SODIUM CHLORIDE 0.9% 250 ML IV PRN ×2 (02:42→07:48)
--- NOTE | 2023-06-01 02:49 | Emergency Department Note ---
History of Present Illness General Chief complaint: Rectal Bleed Time Seen by Provider: 06/01/23 02:33 Source: patient, RN notes reviewed and old records reviewed (I have reviewed a note from an office visit today when she saw vascular surgery for follow-up) History of Present Illness This patient is a 82-year-old female has a complex medical history, comes in after having rectal bleeding which started around 745 she had several episodes of bright red bloody just been a small amount. She says when she has blood in the past it was initially gushing but it was not tonight. She felt a little dizzy earlier. She has no abdominal pain. She vomited but had no blood or coffee-ground emesis. She has had no shortness of breath she does not feel weak. She had been off her Plavix but they restarted it. She was admitted here a couple times and was also seen in [place] for having a GI bleed. She has been transfused 3 units in April. She had upper endoscopy which did reveal esophageal varices. She does have an SMA stent that was placed on 05/09/2022 for chronic mesenteric ischemia with ischemic colitis. Home Medications Medication Instructions Recorded Confirmed Type alendronate 70 mg tablet 70 mg PO SERRANO@0900 01/22/22 05/12/23 History biotin 1 mg tablet 1 mg PO DAILY 01/22/22 05/12/23 History cinacalcet 30 mg tablet (Sensipar) 30 mg PO QAM 01/22/22 05/12/23 History glucosamine-chondroitin 250 mg-200 1 tab PO DAILY 01/22/22 05/12/23 History mg tablet (Osteo Bi-Flex) insulin human U-100 NPH-regulr See Rx Instructions .Route .COMPLEX 01/22/22 05/12/23 History 70-30 mix 100 unit/mL subcutaneous susp (Novolin 70/30 U-100 Insulin) losartan 25 mg tablet 25 mg PO QAM 01/22/22 05/12/23 History metformin 1,000 mg tablet 1,000 mg PO BID 01/22/22 05/12/23 History vitamin B complex 1 tab PO DAILY 01/22/22 05/12/23 History magnesium oxide 400 mg (241.3 mg 400 mg PO DAILY #60 tabs 01/29/22 05/12/23 Rx magnesium) tablet atorvastatin 40 mg tablet 40 mg PO QPM 08/19/22 05/12/23 History furosemide 40 mg tablet (Lasix) 60 mg PO QAM 08/19/22 05/12/23 History pantoprazole 40 mg tablet,delayed 40 mg PO QAM 08/19/22 05/12/23 History release clopidogrel 75 mg tablet (Plavix) 75 mg PO DAILY 09/25/22 05/12/23 History epinephrine 0.3 mg/0.3 mL 0.3 mg IM DIRECTED PRN Allergic 09/25/22 05/12/23 History injection, auto-injector (EpiPen) Reaction iron,carbonyl 65 mg-vitamin C 125 1 tab PO QDD 09/25/22 05/12/23 History mg tablet,delayed release (Vitron-C) melatonin 10 mg tablet 10 mg PO HS 09/25/22 05/12/23 History xmjyljuyjysb-oxbpmqjp-qgbaya tablet 1 tab PO DAILY 09/25/22 05/12/23 History carvedilol 3.125 mg tablet 3.125 mg PO BID 05/12/23 05/12/23 History Allergies Allergy/AdvReac Type Severity Reaction Status Date / Time metals Allergy Intermediate CHEAP Uncoded 04/25/23 09:49 METALS--RASH Past Med/Surg History Medical History Encounter for pre-operative examination Hepatic cirrhosis History of ischemic colitis GI bleed pt unaware CHF (congestive heart failure) Anemia Osteoporosis GERD (gastroesophageal reflux disease) Hyperparathyroidism Hypertension Poor historian Abnormal EKG pt unaware Acute respiratory failure CVA (cerebral vascular accident) Jan 2022 per pt > has some right hand weakness > does not follow with neuro Weakness of right upper extremity s/p CVA, just on occasion Lumbago Other and unspecified hyperlipidemia Type 2 diabetes mellitus without complications Essential (primary) hypertension Coronary atherosclerosis of [place] coronary vessel Acute heart failure with preserved ejection fraction (HFpEF) pt unaware Acute respiratory failure with hypoxia pt unaware Surgical History History of colonoscopy History of endovascular stent graft for abdominal aortic aneurysm unsure if this is exactly what she has, but had done in Apr 2022 at [place] she thinks it was for AAA S/P tonsillectomy S/P hysterectomy S/P appendectomy History of heart artery stent placed 1994 S/P cholecystectomy History of cataract surgery bilat Family History Mother , age 70 of a stroke and congestive heart failure Stroke CHF (congestive heart failure) Father , in his 70s of an HI Myocardial infarction Social History Smoking Status: Former smoker packs per day: 4; Second Hand Exposure: No; Do You Dip or Chew Tobacco: No; Hx Alcohol Use: No Hx Substance Use: No Preferred Language: Vincentian Communication Ability: Effective Anchorman Required: No Beliefs That Will Affect Care: None marital status: Current Living Situation: Spouse current occupational status: retired current occupation: Multiple different jobs retiring in her 50s. Feels Safe at Home: Yes Assistive Devices: None Review of Systems A total of 10 systems reviewed and were otherwise negative Physical Exam Vital Signs Vital Signs - 24 hr 06/01/23 02:37 06/01/23 03:00 06/01/23 03:30 Temperature 37.2 C Temperature Source Oral Pulse Rate 85 84 89 Respiratory Rate 15 17 14 Respiratory Effort / Characteristics Non-Labored Respiratory Depth Normal Blood Pressure 125/59 L 114/46 L 123/46 L Blood Pressure Mean 81 68 71 Pulse Oximetry 100 100 98 Oxygen Delivery Method Room Air Room Air Room Air Sepsis Recent Fever Within 48 Hours No Sepsis New/Unexplained Change in Mental Status N/A Sepsis Action Taken by Nursing No Action Required 06/01/23 04:00 06/01/23 04:24 06/01/23 04:30 Temperature Temperature Source Pulse Rate 89 92 H 91 H Respiratory Rate 14 14 Respiratory Effort / Characteristics Respiratory Depth Blood Pressure 111/56 L 124/56 L Blood Pressure Mean 74 78 Pulse Oximetry 97 97 Oxygen Delivery Method Room Air Room Air Sepsis Recent Fever Within 48 Hours Sepsis New/Unexplained Change in Mental Status Sepsis Action Taken by Nursing 06/01/23 05:00 Temperature Temperature Source Pulse Rate 90 Respiratory Rate 19 Respiratory Effort / Characteristics Respiratory Depth Blood Pressure 114/49 L Blood Pressure Mean 70 Pulse Oximetry 100 Oxygen Delivery Method Room Air Sepsis Recent Fever Within 48 Hours Sepsis New/Unexplained Change in Mental Status Sepsis Action Taken by Nursing General: Well developed well nourished [id number]-iuvchgppt older female who appears in no acute distress, breathing comfortably on room air. Normal speech HEENT: Normal cephalic atraumatic. Pupils are equal round and reactive to light. Extraocular movements are intact. Oropharynx is pink with moist mucous membranes. No swelling of the mouth lips or tongue. Neck: Supple with a midline trachea. No meningeal signs or stiffness, no JVD or bruits. No Stridor. Chest: Clear to auscultation bilaterally. No wheezes or rhonchi. No increased work of breathing. Heart: Regular rate and rhythm without murmurs or gallops. Abdomen: Soft nontender, nondistended without rebound guarding or rigidity. 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 No calf tenderness or assymetry Spine/Back. Non tender to palpation. No CVA tenderness Skin: Good turgor without rashes. Neurologic exam: Cranial nerves two through 12 are intact. Motor and sensation are intact and symmetrical throughout. Course Administered Medications Discontinued Medications Sodium Chloride (Nss) 500 mls @ 999 mls/hr IV .Q31M ONE Stop: 06/01/23 03:57 Last Infusion: 06/01/23 04:50 Dose: Infused Documented By: Admin: 06/01/23 03:37 Dose: 999 mls/hr Documented By: JANIS Critical Care Time Critical Care Time: Yes Total Critical Care Time: 35 Due to the patient's GI bleed, complex history, need for IV fluids multiple blood testing including type and cross seen for potential transfusion, reassessments and consultation with the hospitalist, I have personally spent greater than 35 minutes of critical care time in the direct management of this patient. This includes bedside care, interpretation of diagnostic studies, and testing, discussion with consultants, patient, and family members, and other required patient management activities. This 35 minutes is in excess of all separately billable procedures. Medical Decision Making Differential Diagnosis GI bleed, anemia, infection, mesenteric ischemia, esophageal varices, cardiac disease, electrolyte or metabolic abnormality, trauma Medical Records Attestation: I reviewed the patient's medical records. Home Medications Current Medication List: was personally reviewed by me Laboratory Data Attestation: I reviewed the patient's lab results. 06/01/23 02:31 06/01/23 02:31 Lab Results 06/01/23 06/01/23 06/01/23 Range/Units 02:31 02:54 04:38 WBC 4.80 (4.8-10.8) K/ul RBC 3.07 L (4.20-5.40) M/uL Hgb 8.7 L (12.0-16.0) g/dl Hct 27.8 L (37.0-47.0) % MCV 90.6 (80.0-100.0) fL MCH 28.3 (25.0-34.0) pg MCHC 31.3 L (32.0-36.0) g/dL RDW Std Deviation 58.0 H (36.4-46.3) fL RDW Coeff of Vanita 17.7 H (11.5-14.5) % Plt Count 132 (130-400) K/uL MPV 11.8 (9.4-12.4) fL Immature Gran % (Auto) 0.2 % Neut % (Auto) 60.8 % Lymph % (Auto) 27.3 % [place] % (Auto) 9.6 % Eos % (Auto) 1.5 % Baso % (Auto) 0.6 % Neut # (Auto) 2.92 (1.40-6.50) K/uL Lymph # (Auto) 1.31 (1.20-3.40) K/uL [place] # (Auto) 0.46 (0.11-0.59) K/uL Eos # (Auto) 0.07 (0.00-0.50) K/uL Baso # (Auto) 0.03 (0.00-0.20) K/uL Immature Gran # (Auto) 0.01 (0.01-0.20) K/uL PT 13.3 H (9.0-12.0) Seconds INR 1.2 H (0.9-1.1) APTT 26 (21-31) Seconds PTT Ratio 0.9 Sodium 140 (136-145) mmol/L Potassium 4.0 (3.5-5.1) mmol/L Chloride 102 (98-107) mmol/L Carbon Dioxide 25 (21-32) mmol/L Anion Gap 13 H (3-11) BUN 40 H (6-23) mg/dl Creatinine 1.46 H (0.6-1.2) mg/dl Est Cr Clr Drug Dosing 27.6 ml/min Est GFR ( Amer) 38.5 ml/min Est GFR (Non-Af Amer) 33.2 ml/min BUN/Creatinine Ratio 27.4 H (10-20) Glucose 120 H (70-99(Fasting)) mg/dl Lactate 4.5 H* 4.4 H* (0.4-2.0) mmol/L Calcium 8.7 (8.6-10.3) mg/dl Total Bilirubin 1.0 (0.2-1.0) mg/dl AST 39 (13-39) U/L ALT 26 (7-52) U/L Alkaline Phosphatase 52 (34-104) U/L Troponin I High Sens 10.3 (0-14) pg/ml Total Protein 6.3 (6.0-8.3) gm/dl Albumin 3.1 L (3.4-5.0) gm/dl Globulin 3.2 (2.5-4.0) gm/dl Albumin/Globulin Ratio 1.0 (0.9-2) Lipase 36 (11-82) U/L Blood Type A Positive Antibody Screen NEGATIVE Crossmatch See Detail Imaging Data Attestation: I personally reviewed and interpreted this imaging study as follows: My Impression: Chest x-rosemary per my independent interpretation -cardiomegaly but no overt CHF, pneumonia, or pneumothorax. No free air seen ECG Data Attestation: I personally reviewed and interpreted this ECG as follows: Indication: + weakness Rate (beats per minute): 83 Rhythm: + normal sinus ECG Intervals/blocks: + Normal QRS, + Normal QT and + Normal SD ECG [place]: + Normal ECG ST segments: + Normal ST segments ECG Findings: + Poor R wave progression Comparison ECG Date: from (05/12/23) Change: no significant change MDM Narrative This patient comes in described above she is brought in by ambulance after having GI bleed she has a history of multiple GI bleeds recently. She is hemodynamically stable upon arrival and looks well. IV access had been established and blood work was obtained I did ask the nurse to get a second IV when they obtain the type and cross. Her EKG was obtained and shows no ischemic changes she was placed on a registered nurse cardiac. She is no abdominal pain. Multiple blood testing was obtained including lactic acid she was reassessed frequently. Chest x-ray was unremarkable for any acute findings. There is no free air seen in the abdomen. On her electrolytes she has no acute electrolytes or metabolic abnormalities. She does have baseline renal insufficiency with a creatinine to 1.46 which is in her baseline range. Hemoglobin is 8.6 which is about baseline for her she has remained hemodynamically stable and is asymptomatic. Her lactic acid came back elevated 4.5 she was given 500 cc normal saline bolus IV. She is asymptomatic and has no abdominal pain. I did a rectal exam she had maroon stool. I do think she needs to be admitted/observed for GI bleed. She has been typed and crossed for 4 units we do have 2 IVs in her. I have consulted and discussed the case with Dr. Bailey, [facility] hospitalist , to see her in the ER for these measures. Continuous cardiac monitoring: Orders placed in EMR for continuous registered nurse cardiac call upon my evaluation patient was noted to be in normal sinus rhythm rate of 80 Impression & Plan Acute GI bleeding, Renal insufficiency, History of ischemic colitis, Hepatic cirrhosis, Elevated lactic acid level Discharge Plan Visit Data Chief Complaint: Rectal Bleed ED Provider: Tc Tamayo Discharge Problem: Acute GI bleeding, Renal insufficiency, History of ischemic colitis, Hepatic cirrhosis, Elevated lactic acid level Forms Stand [facility] Prescriptions Prescriptions: No Action vitamin B complex Tablet Extended Release 1 tab PO DAILY Hold Instructions: Resume on 04/25/23. alendronate 70 mg tablet 70 mg PO SERRANO@0900 Hold Instructions: Resume on 04/25/23. Novolin 70/30 U-100 Insulin 100 unit/mL (70-30) suspension See Rx Instructions .ROUTE .COMPLEX Hold Instructions: Resume on 04/25/23. Rx Instructions: TAKES 25 UNITS QAM, THEN 10 UNITS QPM. metformin 1,000 mg tablet 1,000 mg PO BID Hold Instructions: Resume on 04/25/23. cinacalcet [Sensipar] 30 mg tablet 30 mg PO QAM Hold Instructions: Resume on 04/25/23. biotin 1 mg Tablet 1 mg PO DAILY Hold Instructions: Resume on 04/25/23. losartan 25 mg tablet 25 mg PO QAM Hold Instructions: Resume on 04/25/23. glucosamine-chondroitin [Osteo Bi-Flex] 250-200 mg Tablet 1 tab PO DAILY Hold Instructions: Resume on 04/25/23. Rx Instructions: unknown strength magnesium oxide 400 mg (241.3 mg magnesium) Tablet 400 mg PO DAILY Qty: 60 0RF Hold Instructions: Resume on 04/25/23. atorvastatin 40 mg Tablet 40 mg PO QPM Hold Instructions: Resume on 04/25/23. Rx Instructions: q afternoon furosemide [Lasix] 40 mg tablet 60 mg PO QAM Hold Instructions: Resume on 04/25/23. pantoprazole 40 mg tablet,delayed release (DR/EC) 40 mg PO QAM Hold Instructions: Resume on 04/25/23. carvedilol 3.125 mg tablet 3.125 mg PO BID clopidogrel [Plavix] 75 mg Tablet 75 mg PO DAILY Hold Instructions: Resume on 06/14/23. epinephrine [EpiPen] 0.3 mg/0.3 mL Auto-Injector 0.3 mg IM DIRECTED PRN (Reason: Allergic Reaction) Hold Instructions: Resume on 04/25/23. gfmafaqceopr-pnmagqlf-aiwjyf Tablet 1 tab PO DAILY Hold Instructions: Resume on 04/25/23. melatonin 10 mg Tablet 10 mg PO HS Hold Instructions: Resume on 04/25/23. Vitron-C 65 mg iron- 125 mg Tablet,Delayed Release (Dr/Ec) 1 tab PO QDD Hold Instructions: Resume on 04/25/23. Referrals Referrals: Alexy Al MD [Primary Care Provider] -
[2023-06-01 03:23] LABS: Albumin Level 3.1 gm/dl (3.4-5.0); BUN Creatinine Ratio 27.4 (10-20); Calcium 8.7 mg/dl (8.6-10.3); Creatinine Clr Calc Pharmacy 27.6 ml/min; Est GFR (African American) 38.5 ml/min; Est GFR (Non-African American) 33.2 ml/min; Globulin 3.2 gm/dl (2.5-4.0); Total Protein 6.3 gm/dl (6.0-8.3)
[2023-06-01 03:26] LABS: Basophils # (auto) 0.03 K/uL (0.00-0.20); Basophils % (auto) 0.6 %; Eosinophils # (auto) 0.07 K/uL (0.00-0.50); Eosinophils % (auto) 1.5 %; Hematocrit (blood only) 27.8 % (37.0-47.0); Hemoglobin 8.7 g/dl (12.0-16.0); Immature Granulocytes # (auto) 0.01 K/uL (0.01-0.20); Immature Granulocytes % (auto) 0.2 %; Lymphocytes # (auto) 1.31 K/uL (1.20-3.40); Lymphocytes % (auto) 27.3 %; Mean Corpuscular Hemoglobin 28.3 pg (25.0-34.0); Mean Corpuscular Hgb Conc 31.3 g/dL (32.0-36.0); Mean Corpuscular Volume 90.6 fL (80.0-100.0); Mean Platelet Volume 11.8 fL (9.4-12.4); Monocytes # (auto) 0.46 K/uL (0.11-0.59); Monocytes % (auto) 9.6 %; Neutrophils # (auto) 2.92 K/uL (1.40-6.50); Neutrophils % (auto) 60.8 %; Platelet Count 132 K/uL (130-400); RDW Coefficient of Variation 17.7 % (11.5-14.5); Red Blood Count 3.07 M/uL (4.20-5.40)
[2023-06-01] MEDS ORDERED: SODIUM CHLORIDE 0.9% 500 ML IV ONE (03:27)
[2023-06-01 03:29] LABS: Troponin I High Sensitivity 10.3 pg/ml (0-14)
[2023-06-01 03:34] LABS: INR 1.2 (0.9-1.1); Partial Thromboplastin Ratio 0.9; Partial Thromboplastin Time 26 Seconds (21-31); Prothrombin Time 13.3 Seconds (9.0-12.0)
--- NOTE | 2023-06-01 05:31 | History & Physical Report ---
Date of Service June 01, 2023 Assessment & Plan (1) Acute GI bleeding: Plan: 82-year-old female with past med history significant for type 2 diabetes, diabetic peripheral angiopathy, hyperlipidemia, hyperparathyroidism, lung nodules, heart failure with preserved ejection fraction, portal hypertension, aortic ectasia, superior mesenteric artery stenosis s/p stent, history of valvular disease, hypertension, history of CVA, history of CAD, GERD, history of pericolonic abscess, history of hepatic cirrhosis, history of GI bleed associated with intestinal diverticulosis, osteoporosis, anemia, visual field loss poststroke, history of hyponatremia presents with rectal bleed. Patient states since last night she had several episodes of small amount of rectal bleed. Also had a few episodes of vomiting but no blood in the vomiting or no black vomitus. Denies any abdominal pain. Normal micturition. Denies chest pain or shortness of breath. No cough. Has some runny nose. Appetite is okay. No difficulty swallowing. No headache. Vision is not that great. States that she is following with ophthalmology. Hemodynamics are okay. 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 Patient was admitted to [facility] on April 24, 2023 for GI bleed and received total of 3 units of PRBC. Was on Sandostatin, Protonix drip and Rocephin. EGD was okay except showing grade 2 esophageal varices. And she was transferred to [place] for possible mesenteric ischemia and ischemic colitis and possible need for IR intervention. GI did colonoscopy which revealed diverticulosis with old bleeding and no active bleeding and there was no evidence of recurrent ischemic colitis. Patient restarted on Plavix and discharged to follow-up with vascular surgery and metoprolol was changed to Coreg. And advised to follow with hepatology for liver cirrhosis. Patient was again admitted to [facility] on May 12, 2023 with acute GI bleeding with a mix of black and bright red blood. She was s/p 2 units of PRBC. EGD was done which was again showed grade 2 esophageal varices. Portal hypertension gastropathy. Normal examined duodenum. Hemoglobin was stabilized and she was again discharged. Patient has had a follow-up appointment with vascular surgery yesterday and plan to follow-up with repeat mesenteric ultrasounds. Patient again comes back today with rectal bleed. Lactic acid is 4.5. But the patient denies any abdominal pain. Hemodynamically stable. She lives with her . Ambulates with a walker. Acute GI bleeding Rectal bleed Patient had EGD twice recently which showed grade 2 esophageal varices and portal hypertensive gastropathy Recent colonoscopy showed diverticulosis Possible diverticular bleed Hemoglobin stable at 8.6. Patient says she had small amount of rectal bleed several times. Placed on gentle fluids normal saline 75 mill per hour Blood consent obtained Because of oesophageal varices placed on Sandostatin drip, PPI drip and Zosyn History of ischemic colitis with SMA stent placement. In April CT scan was okay. Currently patient has no abdominal pain Will keep her n.p.o. hold plavix. h and h q 6hrs GI consult Close monitor Elevated lactic acidosis Patient has liver cirrhosis History of ischemic colitis and SMA's stent Patient currently has no abdominal pain Will follow stat mesenteric duplex which came back as patent sma stent and proximal sma moderate stenosis Will repeat lactic acid levels Close monitor JANELL Presented with cr 1.4 Holding diuretics and losartan Avoid nephrotoxic agents Follow repeat labs. History of liver cirrhosis Getting fluids and diuretic on hold Monitor for volume overload Chronic heart failure with preserved ejection fraction Holding diuretics Getting fluids Monitor for volume overload Diabetes Hold home medications Lantus and insulin sliding scale Glycemic pharmacy consult History of CAD Holding Plavix Continue beta-blockers and statin HTN holding Losartan and diuretic Coreq with holding parameters DVT prophylaxis SCDs Disposition Telemetry floor CODE STATUS DNR/DNI as per my discussion with the patient. History of Present Illness Chief Complaint: Rectal bleed Primary Care Provider: Alexy Al MD 82-year-old female with past med history significant for type 2 diabetes, diabetic peripheral angiopathy, hyperlipidemia, hyperparathyroidism, lung nodules, heart failure with preserved ejection fraction, portal hypertension, aortic ectasia, superior mesenteric artery stenosis s/p stent, history of valvular disease, hypertension, history of CVA, history of CAD, GERD, history of pericolonic abscess, history of hepatic cirrhosis, history of GI bleed associated with intestinal diverticulosis, osteoporosis, anemia, visual field lo ss poststroke, history of hyponatremia presents with rectal bleed. Patient states since last night she had several episodes of small amount of rectal bleed. Also had a few episodes of vomiting but no blood in the vomiting or no black vomitus. Denies any abdominal pain. Normal micturition. Denies chest pain or shortness of breath. No cough. Has some runny nose. Appetite is okay. No difficulty swallowing. No headache. Vision is not that great. States that she is following with ophthalmology. Hemodynamics are okay. 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 Patient was admitted to [facility] on April 24, 2023 for GI bleed and received total of 3 units of PRBC. Was on Sandostatin, Protonix drip and Rocephin. EGD was okay except showing grade 2 esophageal varices. And she was transferred to [place] for possible mesenteric ischemia and ischemic colitis and possible need for IR intervention. GI did colonoscopy which revealed diverticulosis with old bleeding and no active bleeding and there was no evidence of recurrent ischemic colitis. Patient restarted on Plavix and discharged to follow-up with vascular surgery and metoprolol was changed to Coreg. And advised to follow with hepatology for liver cirrhosis. Patient was again admitted to [facility] on May 12, 2023 with acute GI bleeding with a mix of black and bright red blood. She was s/p 2 units of PRBC. EGD was done which was again showed grade 2 esophageal varices. Portal hypertension gastropathy. Normal examined duodenum. Hemoglobin was stabilized and she was again discharged. Patient has had a follow-up appointment with vascular surgery yesterday and plan to follow-up with repeat mesenteric ultrasounds. Patient again comes back today with rectal bleed. Lactic acid is 4.5. But the patient denies any abdominal pain. Hemodynamically stable. She lives with her . Ambulates with a walker. Past medical history. As mentioned above. Past surgical history. Colonoscopy. Partial hysterectomy. Tonsillectomy. Cataracts bilateral. Cholecystectomy. SMA stent. Social history. . Quit smoking 2006. Smoked 3 packs a day for 48 years. Alcohol occasional. No drug use. Family history. Brother had cancer. Diabetes. Father had diabetes. [place]. Mother had diabetes. Stroke. Allergies Allergy/AdvReac Type Severity Reaction Status Date / Time metals Allergy Intermediate CHEAP Uncoded 04/25/23 09:49 METALS--RASH Home Medications Medication Instructions Recorded Confirmed Type Osteo Bi-Flex 1 tab PO DAILY 06/01/23 06/01/23 History Vitron-C 1 tab PO DAILY 06/01/23 06/01/23 History alendronate 70 mg tablet 70 mg PO WK 06/01/23 06/01/23 History atorvastatin 40 mg tablet 40 mg PO DAILY 06/01/23 06/01/23 History biotin 1 mg capsule 1 mg PO DAILY 06/01/23 06/01/23 History carvedilol 3.125 mg tablet 3.125 mg PO BID 06/01/23 06/01/23 History cinacalcet 30 mg tablet (Sensipar) 30 mg PO DAILY 06/01/23 06/01/23 History clopidogrel 75 mg tablet 75 mg PO DAILY 06/01/23 06/01/23 History epinephrine 1 mg/mL injection 0.3 mg subcut Q4H PRN Anaphylaxis 06/01/23 06/01/23 History solution insulin human U-100 NPH-regulr 25 unit subcut UD 06/01/23 06/01/23 History 70-30 mix 100 unit/mL subcutaneous susp (Novolin 70/30 U-100 Insulin) losartan 25 mg tablet 25 mg PO DAILY 06/01/23 06/01/23 History magnesium oxide 400 mg PO DAILY 06/01/23 06/01/23 History melatonin 10 mg tablet 10 mg PO HS PRN Insomnia 06/01/23 06/01/23 History metformin 1,000 mg tablet 1,000 mg PO BID 06/01/23 06/01/23 History clstpkeyzcyg-zsxoqnuk-zmrxcd tablet 1 tab PO DAILY 06/01/23 06/01/23 History pantoprazole 40 mg tablet,delayed 40 mg PO DAILY 06/01/23 06/01/23 History release torsemide 20 mg tablet 40 mg PO DAILY 06/01/23 06/01/23 History vitamin B complex 1 cap PO DAILY 06/01/23 06/01/23 History Past Med/Surg History Medical History Encounter for pre-operative examination Hepatic cirrhosis History of ischemic colitis GI bleed pt unaware CHF (congestive heart failure) Anemia Osteoporosis GERD (gastroesophageal reflux disease) Hyperparathyroidism Hypertension Poor historian Abnormal EKG pt unaware Acute respiratory failure CVA (cerebral vascular accident) Jan 2022 per pt > has some right hand weakness > does not follow with neuro Weakness of right upper extremity s/p CVA, just on occasion Lumbago Other and unspecified hyperlipidemia Type 2 diabetes mellitus without complications Essential (primary) hypertension Coronary atherosclerosis of [place] coronary vessel Acute heart failure with preserved ejection fraction (HFpEF) pt unaware Acute respiratory failure with hypoxia pt unaware Surgical History History of colonoscopy History of endovascular stent graft for abdominal aortic aneurysm unsure if this is exactly what she has, but had done in Apr 2022 at [place] she thinks it was for AAA S/P tonsillectomy S/P hysterectomy S/P appendectomy History of heart artery stent placed 1994 S/P cholecystectomy History of cataract surgery bilat Family History Mother , age 70 of a stroke and congestive heart failure Stroke CHF (congestive heart failure) Father , in his 70s of an [place] Myocardial infarction Social History Smoking Status: Never smoker packs per day: 4; Second Hand Exposure: No; Do You Dip or Chew Tobacco: No; Hx Alcohol Use: No Hx Substance Use: No Preferred Language: Tajik Communication Ability: Effective Smudger Required: No Beliefs That Will Affect Care: None marital status: Current Living Situation: Spouse current occupational status: retired current occupation: Multiple different jobs retiring in her 50s. Other Information That Helps Us Care for You: No Feels Safe at Home: Yes Safety Concerns: Feels Safe At This Time Assistive Devices: None Review of Systems Review of Systems: All systems reviewed & are unremarkable except as noted in HPI & below Physical Exam Physical Exam: General- Not in acute distress Head- atraumatic Eyes- PERRL. ENT- oropharynx clear Neck- supple, no JVD. Lungs- clear to auscultation no wheezing or crackles. Heart- regular rate and rhythm; no murmur, no gallop. Abdomen- normal bowel sounds, soft, nontender, no distension Extremities- no pretibial edema, no erythema seen. Neuro- alert, oriented x 3; PERRL, no facial palsy; no dysarthria; moves extremities. Skin- warm & dry Results & Data Results & Data Vital Signs (Past 12 Hours) Vital Signs Temp Pulse Resp BP Pulse Ox O2 Del Method 06/01/23 05:00 90 19 114/49 L 100 Room Air 06/01/23 04:30 91 H 14 124/56 L 97 Room Air 06/01/23 04:24 92 H 06/01/23 04:00 89 14 111/56 L 97 Room Air 06/01/23 03:30 89 14 123/46 L 98 Room Air 06/01/23 03:00 84 17 114/46 L 100 Room Air 06/01/23 02:37 37.2 C 85 15 125/59 L 100 Room Air Diagnostic Findings Laboratory Results WBC 4.80 K/ul (4.8-10.8) 06/01/23 02:31 RBC 3.07 M/uL (4.20-5.40) L 06/01/23 02:31 Hgb 8.7 g/dl (12.0-16.0) L 06/01/23 02:31 Hct 27.8 % (37.0-47.0) L 06/01/23 02:31 MCV 90.6 fL (80.0-100.0) 06/01/23 02:31 MCH 28.3 pg (25.0-34.0) 06/01/23 02:31 MCHC 31.3 g/dL (32.0-36.0) L 06/01/23 02:31 RDW Std Deviation 58.0 fL (36.4-46.3) H 06/01/23 02:31 RDW Coeff of Vanita 17.7 % (11.5-14.5) H 06/01/23 02:31 Plt Count 132 K/uL (130-400) 06/01/23 02:31 MPV 11.8 fL (9.4-12.4) 06/01/23 02:31 Immature Gran % (Auto) 0.2 % 06/01/23 02:31 Neut % (Auto) 60.8 % 06/01/23 02:31 Lymph % (Auto) 27.3 % 06/01/23 02:31 Moffat % (Auto) 9.6 % 06/01/23 02:31 Eos % (Auto) 1.5 % 06/01/23 02:31 Baso % (Auto) 0.6 % 06/01/23 02:31 Neut # (Auto) 2.92 K/uL (1.40-6.50) 06/01/23 02:31 Lymph # (Auto) 1.31 K/uL (1.20-3.40) 06/01/23 02:31 Moffat # (Auto) 0.46 K/uL (0.11-0.59) 06/01/23 02:31 Eos # (Auto) 0.07 K/uL (0.00-0.50) 06/01/23 02:31 Baso # (Auto) 0.03 K/uL (0.00-0.20) 06/01/23 02:31 Immature Gran # (Auto) 0.01 K/uL (0.01-0.20) 06/01/23 02:31 PT 13.3 Seconds (9.0-12.0) H 06/01/23 02:31 INR 1.2 (0.9-1.1) H 06/01/23 02:31 APTT 26 Seconds (21-31) 06/01/23 02:31 PTT Ratio 0.9 06/01/23 02:31 Sodium 140 mmol/L (136-145) 06/01/23 02:31 Potassium 4.0 mmol/L (3.5-5.1) 06/01/23 02:31 Chloride 102 mmol/L (98-107) 06/01/23 02:31 Carbon Dioxide 25 mmol/L (21-32) 06/01/23 02:31 Anion Gap 13 (3-11) H 06/01/23 02:31 BUN 40 mg/dl (6-23) H 06/01/23 02:31 Creatinine 1.46 mg/dl (0.6-1.2) H 06/01/23 02:31 Est Cr Clr Drug Dosing 27.6 ml/min 06/01/23 02:31 Est GFR ( Amer) 38.5 ml/min 06/01/23 02:31 Est GFR (Non-Af Amer) 33.2 ml/min 06/01/23 02:31 BUN/Creatinine Ratio 27.4 (10-20) H 06/01/23 02:31 Glucose 120 mg/dl (70-99(Fasting)) H 06/01/23 02:31 Lactate 4.4 mmol/L (0.4-2.0) H* 06/01/23 04:38 Calcium 8.7 mg/dl (8.6-10.3) 06/01/23 02:31 Total Bilirubin 1.0 mg/dl (0.2-1.0) 06/01/23 02:31 AST 39 U/L (13-39) 06/01/23 02:31 ALT 26 U/L (7-52) 06/01/23 02:31 Alkaline Phosphatase 52 U/L (34-104) 06/01/23 02:31 Troponin I High Sens 10.3 pg/ml (0-14) 06/01/23 02:31 Total Protein 6.3 gm/dl (6.0-8.3) 06/01/23 02:31 Albumin 3.1 gm/dl (3.4-5.0) L 06/01/23 02:31 Globulin 3.2 gm/dl (2.5-4.0) 06/01/23 02:31 Albumin/Globulin Ratio 1.0 (0.9-2) 06/01/23 02:31 Lipase 36 U/L (11-82) 06/01/23 02:31 Blood Type A Positive 06/01/23 02:54 Antibody Screen NEGATIVE 06/01/23 02:54 Crossmatch See Detail 06/01/23 02:54 ECG Additional Comments: ECG. Normal sinus rhythm rate of 83. Q waves in anterior leads Code Status & VTE Plan VTE Prophylaxis Plan VTE Prophylaxis will be ordered: Yes
[2023-06-01] MEDS ORDERED: DEXTROSE 50% 50 ML SYRINGE IV PRN (06:42)
[2023-06-01] MEDS ORDERED: PANTOPRAZOLE BOLUS/DRIP IV STA (06:42)
[2023-06-01] MEDS ORDERED: GLUCOSE 10 TAB/TUBE PO PRN (06:42)
[2023-06-01] MEDS ORDERED: PHARMACY GLYCEMIC MGMT CONSULT PRN (06:42)
[2023-06-01] MEDS ORDERED: ONDANSETRON INJ 2 MG/ML 2 ML VIAL IV PRN ×2 (06:42→09:01)
[2023-06-01] MEDS ORDERED: STAT IV/IM STA (06:42)
[2023-06-01] MEDS ORDERED: GLUCAGON FOR INJ 1 MG VIAL SQ PRN (06:42)
[2023-06-01] MEDS ORDERED: CARBOHYDRATES FOR HYPOGLYCEMIA PO PRN (06:42)
[2023-06-01] MEDS ORDERED: GLUCOSE 40% GEL 15 GM TUBE PO PRN (06:42)
[2023-06-01] MEDS ORDERED: NITROGLYCERIN SL 0.4 MG/TAB TAB SL PRN (06:42)
[2023-06-01] MEDS ORDERED: OCTREOTIDE ACETATE 50 MCG in SYRINGE 9.5 ML IV STA (06:52)
[2023-06-01] MEDS ORDERED: OCTREOTIDE ACETATE 500 MCG in 0.9 % SODIUM CHLORIDE 100 ML IV SCH (06:53)
[2023-06-01] MEDS ORDERED: PANTOprazole 80 MG in DEXTROSE 5% 100 ML IV ONE (07:00)
--- NOTE | 2023-06-01 07:00 | Ultrasound Report ---
US duplex mesenteric HISTORY: 82 years-old Female elevated lactic acid. hx of SMA stenosis s/p stent acute mid abdominal pain COMPARISON: CT 04/24/2023. TECHNIQUE: Multiple real-time sonographic images of the mesenteric vessels were obtained assessing gr ayscale appearance, color and spectral flow FINDINGS: Limited exam secondary to obscuring bowel gas and patient condition. Elevated peak systolic velocities within the proximal aspect of the superior mesenteric artery measur ing up to 381 cm/s, within the mid vessel measured 274 cm/s and within the distal vessel measuring 16 1 cm/s. No arterial occlusion. Normal waveforms in the abdominal aorta with peak systolic velocities measured at 53 cm/s. Proximal c eliac trunk is obscured. Normal waveforms within the mid and distal portions of the vessel with peak systolic velocities measuring 36 and 59 cm/s respectively. Cirrhotic liver. IMPRESSION: 1. Patent superior mesenteric artery and celiac trunk. 2. Elevated peak systolic velocities within the proximal superior mesenteric artery suggests moderate stenosis (50-69%). ACT 112: Negative or not required by law. The above report was generated using voice recognition software. It may contain grammatical, syntax o r spelling errors. Electronically signed by: Abhay Smart M.D. 06/01/2023 6:58 AM
[2023-06-01] MEDS ORDERED: PIPER/TAZO 4.5g in D5W MINI-B 100 ML IV ONE (07:15)
[2023-06-01] MEDS ORDERED: MELATONIN 3 MG TAB PO PRN (07:21)
[2023-06-01 07:36] LABS: Hematocrit (blood only) 21.3 % (37.0-47.0); Hemoglobin 6.7 g/dl (12.0-16.0); Mean Corpuscular Hemoglobin 28.5 pg (25.0-34.0); Mean Corpuscular Hgb Conc 31.5 g/dL (32.0-36.0); Mean Corpuscular Volume 90.6 fL (80.0-100.0); Mean Platelet Volume 11.6 fL (9.4-12.4); Platelet Count 123 K/uL (130-400); RDW Coefficient of Variation 17.7 % (11.5-14.5); RDW Standard Deviation 59.3 fL (36.4-46.3); Red Blood Count 2.35 M/uL (4.20-5.40); White Blood Count 7.18 K/ul (4.8-10.8)
[2023-06-01 07:41] LABS: BUN Creatinine Ratio 31.9 (10-20); Calcium 8.1 mg/dl (8.6-10.3); Creatinine Clr Calc Pharmacy 30.1 ml/min; Est GFR (African American) 42.3 ml/min; Est GFR (Non-African American) 36.5 ml/min; Magnesium 1.6 mg/dl (1.7-2.4); Potassium 4.2 mmol/L (3.5-5.1)
[2023-06-01 07:47] LABS: Basophils # (auto) 0.04 K/uL (0.00-0.20); Basophils % (auto) 0.6 %; Eosinophils # (auto) 0.13 K/uL (0.00-0.50); Eosinophils % (auto) 1.8 %; Hypochromasia Present; Immature Granulocytes # (auto) 0.02 K/uL (0.01-0.20); Immature Granulocytes % (auto) 0.3 %; Lymphocytes # (auto) 1.83 K/uL (1.20-3.40); Lymphocytes % (auto) 25.5 %; Monocytes # (auto) 0.76 K/uL (0.11-0.59); Monocytes % (auto) 10.6 %; Neutrophils % (auto) 61.2 %
--- NOTE | 2023-06-01 08:06 | XRay Report ---
SINGLE VIEW CHEST CLINICAL HISTORY: Atypical chest pain. FINDINGS: An AP, portable, upright chest radiograph is compared to study dated 05/12/2023. The examin ation is degraded by portable technique and apical lordotic positioning. The heart is enlarged noting atherosclerotic calcification of the thoracic aorta. The pulmonary vasculature is nondistended conge sted. Chronic interstitial thickening is similar to previous. There is bibasilar scarring/atelectasis . The lungs and pleural spaces are otherwise clear. No pneumothorax is seen. The skeletal structures are osteopenic. The bony thorax is grossly intact. IMPRESSION: Cardiomegaly with no active disease in the chest. ACT 112: Negative or not required by law. Electronically signed by: Kahlil Mojica M.D. 06/01/2023 8:04 AM
[2023-06-01] MEDS: OCTREOTIDE ACETATE 500 MCG in 0.9 % SODIUM CHLORIDE 100 ML IV SCH ×2 (08:09→16:44)
[2023-06-01] MEDS: PANTOprazole 40 MG in DEXTROSE 5% MINI-B 100 ML IV SCH ×3 (08:21→16:46)
[2023-06-01] MEDS ORDERED: METOCLOPRAMIDE HCL INJ 5 MG/ML 2 ML VIAL IV STA (08:31)
--- NOTE | 2023-06-01 08:32 | Anesthesiology Consultation ---
Date of Service June 01, 2023 Assessment & Plan Chart Review Chart Review: Patient NOT seen in Pre Admission Testing emergent procedure Consults Requested none History Surgery Operation Date: 06/01/23 12:00 Proposed Procedures p Esophagogastroduodenoscopy - Kevin Hardwick MD Height/Weight Height: 5 ft 3 in Weight: 69.853 kg Allergies Allergy/AdvReac Type Severity Reaction Status Date / Time metals Allergy Intermediate CHEAP Uncoded 04/25/23 09:49 METALS--RASH Medications Home Medications Medication Instructions Recorded Confirmed Last Taken Osteo Bi-Flex 1 tab PO DAILY 06/01/23 06/01/23 Unknown Vitron-C 1 tab PO DAILY 06/01/23 06/01/23 Unknown alendronate 70 mg tablet 70 mg PO WK 06/01/23 06/01/23 Unknown atorvastatin 40 mg tablet 40 mg PO DAILY 06/01/23 06/01/23 Unknown biotin 1 mg capsule 1 mg PO DAILY 06/01/23 06/01/23 Unknown carvedilol 3.125 mg tablet 3.125 mg PO BID 06/01/23 06/01/23 Unknown cinacalcet 30 mg tablet (Sensipar) 30 mg PO DAILY 06/01/23 06/01/23 Unknown clopidogrel 75 mg tablet 75 mg PO DAILY 06/01/23 06/01/23 Unknown epinephrine 1 mg/mL injection 0.3 mg subcut Q4H PRN Anaphylaxis 06/01/23 06/01/23 Unknown solution insulin human U-100 NPH-regulr 25 unit subcut UD 06/01/23 06/01/23 Unknown 70-30 mix 100 unit/mL subcutaneous susp (Novolin 70/30 U-100 Insulin) losartan 25 mg tablet 25 mg PO DAILY 06/01/23 06/01/23 Unknown magnesium oxide 400 mg PO DAILY 06/01/23 06/01/23 Unknown melatonin 10 mg tablet 10 mg PO HS PRN Insomnia 06/01/23 06/01/23 Unknown metformin 1,000 mg tablet 1,000 mg PO BID 06/01/23 06/01/23 Unknown pyeciqvultka-uvjtallr-chuptd tablet 1 tab PO DAILY 06/01/23 06/01/23 Unknown pantoprazole 40 mg tablet,delayed 40 mg PO DAILY 06/01/23 06/01/23 Unknown release torsemide 20 mg tablet 40 mg PO DAILY 06/01/23 06/01/23 Unknown vitamin B complex 1 cap PO DAILY 06/01/23 06/01/23 Unknown Active Medications Generic Name Dose Route Start Last Admin Trade Name Estella PRN Reason Stop Dose Admin Pantoprazole Sodium 40 mg/ 100 mls @ 20 mls/hr 06/01/23 07:00 06/01/23 08:21 Dextrose IV 07/01/23 06:59 8 mg/hr Q5H DESIREE 20 mls/hr Administration 8 MG/HR Octreotide Acetate 500 mcg/ 105 mls @ 10.5 mls/hr 06/01/23 07:00 06/01/23 08:09 Sodium Chloride IV 07/01/23 06:59 50 mcg/hr .Q10H DESIREE 10.5 mls/hr Administration 50 MCG/HR Past Medical History Medical History Encounter for pre-operative examination Hepatic cirrhosis History of ischemic colitis GI bleed pt unaware CHF (congestive heart failure) Anemia Osteoporosis GERD (gastroesophageal reflux disease) Hyperparathyroidism Hypertension Poor historian Abnormal EKG pt unaware Acute respiratory failure CVA (cerebral vascular accident) Jan 2022 per pt > has some right hand weakness > does not follow with neuro Weakness of right upper extremity s/p CVA, just on occasion Lumbago Other and unspecified hyperlipidemia Type 2 diabetes mellitus without complications Essential (primary) hypertension Coronary atherosclerosis 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 Acute heart failure with preserved ejection fraction (HFpEF) pt unaware Acute respiratory failure with hypoxia pt unaware Past Family History Family History Mother , age 70 of a stroke and congestive heart failure Stroke CHF (congestive heart failure) Father , in his 70s of an [place] Myocardial infarction Past Surgical History Surgical History History of colonoscopy History of endovascular stent graft for abdominal aortic aneurysm unsure if this is exactly what she has, but had done in Apr 2022 at [place] she thinks it was for AAA S/P tonsillectomy S/P hysterectomy S/P appendectomy History of heart artery stent placed 1994 S/P cholecystectomy History of cataract surgery bilat Social History Smoking Status: Never smoker Do You Dip or Chew Tobacco: No Hx Alcohol Use: No Alcohol type: beer alcohol intake frequency: 0-2 drinks per day Hx Substance Use: No substance use type: does not use Physical Exam Vital Signs Last Vital Signs Temp 97.9 F 06/01/23 06:42 Pulse 98 H 06/01/23 06:42 Resp 14 06/01/23 06:42 BP 139/66 06/01/23 06:42 Pulse Ox 99 06/01/23 06:42 O2 Del Method Room Air 06/01/23 07:19 Testing Laboratory Results 06/01/23 07:09 06/01/23 07:09 PT 13.3 Seconds (9.0-12.0) H 06/01/23 02:31 INR 1.2 (0.9-1.1) H 06/01/23 02:31 APTT 26 Seconds (21-31) 06/01/23 02:31 Blood Type A Positive 06/01/23 02:54 Antibody Screen NEGATIVE 06/01/23 02:54
--- NOTE | 2023-06-01 08:41 | Gastrointestinal Consultation ---
Date of Consultation June 01, 2023 Assessment & Plan (1) Hematemesis: (2) Esophageal varices: (3) Melena: (4) Acute blood loss anemia: (5) Hepatic cirrhosis: Plan 1. Urgent EGD by Dr. Hardwick in the OR. 2. Reglan 10mg IV (just given). 3. Continue Octreotide and PPI drips. 4. NPO. 5. Receiving blood transfusion now. Appreciate primary hospitalists management of blood/fluids resuscitation. 6. Further recommendations to follow. Supervising Physician Co-Signing Physician Notes I performed a history and physical examination of the patient today, including specifically on physical exam - soft abdomen. I have discussed the patient's management with the advanced practitioner. Please refer to the nurse practitioner's note for the documented findings and plan of care. EGD Patient was explained in detail regarding risks, benefits, limitations and alternatives of the above endoscopic procedure. Risks of intravenous sedation used for procedure were also explained. Risks include, but not limited to perforation, bleeding, infection, respiratory distress, cardiac arrest and . Patient is also aware about the possibility of missed lesion. Patient's questions were answered. The patient verbalized understanding the information and agreed to undergo the procedure. History of Present Illness Reason for Consultation: GI Bleed Requesting Physician: Dr. Bailey Attending Physician: Oneal Valle MD History of Present Illness Ms. james Russell is an 82 yr old female pt of Dr. Al w a hx of DM2, HLD, hyperparathyroidism, lung nodules, CHF, SMA stenosis S/P Stent (2021), HTN, heart failure/cardiac valve dx, CVA, aortic ectasia,colonic ischemia, diverticular dx. She is followed for cirrhosis complicated by G2EV, PHG, ascites and has had several hospitalizations recently: rectal bleeding in April, w colonoscopy suggestive of a diverticular bleed, EGDs x 2 in April with the EV and PHG but no active bleeding. She presented to the ED yesterday for melena/hematochezia. This morning, just after 8AM, she vomited a large amt of dark red blood w clots. Octreotide and PPI drips were running over night. She just received a dose of Reglan. Hb was 8.7 on arrival, received a unit of RBCs last night, Hb 6.7 this morning and is receiving a unit now. She is awake/alert, oriented, free of pain. HR 90's, BP 136/59, she is saturating well on room air. Allergies Allergy/AdvReac Type Severity Reaction Status Date / Time metals Allergy Intermediate CHEAP Uncoded 04/25/23 09:49 METALS--RASH Home Medications Medication Instructions Recorded Confirmed Type Osteo Bi-Flex 1 tab PO DAILY 06/01/23 06/01/23 History Vitron-C 1 tab PO DAILY 06/01/23 06/01/23 History alendronate 70 mg tablet 70 mg PO WK 06/01/23 06/01/23 History atorvastatin 40 mg tablet 40 mg PO DAILY 06/01/23 06/01/23 History biotin 1 mg capsule 1 mg PO DAILY 06/01/23 06/01/23 History carvedilol 3.125 mg tablet 3.125 mg PO BID 06/01/23 06/01/23 History cinacalcet 30 mg tablet (Sensipar) 30 mg PO DAILY 06/01/23 06/01/23 History clopidogrel 75 mg tablet 75 mg PO DAILY 06/01/23 06/01/23 History epinephrine 1 mg/mL injection 0.3 mg subcut Q4H PRN Anaphylaxis 06/01/23 06/01/23 History solution insulin human U-100 NPH-regulr 25 unit subcut UD 06/01/23 06/01/23 History 70-30 mix 100 unit/mL subcutaneous susp (Novolin 70/30 U-100 Insulin) losartan 25 mg tablet 25 mg PO DAILY 06/01/23 06/01/23 History magnesium oxide 400 mg PO DAILY 06/01/23 06/01/23 History melatonin 10 mg tablet 10 mg PO HS PRN Insomnia 06/01/23 06/01/23 History metformin 1,000 mg tablet 1,000 mg PO BID 06/01/23 06/01/23 History tlhsevyngrip-njxwgsak-vhwuco tablet 1 tab PO DAILY 06/01/23 06/01/23 History pantoprazole 40 mg tablet,delayed 40 mg PO DAILY 06/01/23 06/01/23 History release torsemide 20 mg tablet 40 mg PO DAILY 06/01/23 06/01/23 History vitamin B complex 1 cap PO DAILY 06/01/23 06/01/23 History Patient History Medical History Encounter for pre-operative examination Hepatic cirrhosis History of ischemic colitis GI bleed pt unaware CHF (congestive heart failure) Anemia Osteoporosis GERD (gastroesophageal reflux disease) Hyperparathyroidism Hypertension Poor historian Abnormal EKG pt unaware Acute respiratory failure CVA (cerebral vascular accident) Jan 2022 per pt > has some right hand weakness > does not follow with neuro Weakness of right upper extremity s/p CVA, just on occasion Lumbago Other and unspecified hyperlipidemia Type 2 diabetes mellitus without complications Essential (primary) hypertension Coronary atherosclerosis of [place] coronary vessel Acute heart failure with preserved ejection fraction (HFpEF) pt unaware Acute respiratory failure with hypoxia pt unaware Surgical History History of colonoscopy History of endovascular stent graft for abdominal aortic aneurysm unsure if this is exactly what she has, but had done in Apr 2022 at [facility] she thinks it was for AAA S/P tonsillectomy S/P hysterectomy S/P appendectomy History of heart artery stent placed 1994 S/P cholecystectomy History of cataract surgery bilat Family History Mother , age 70 of a stroke and congestive heart failure Stroke CHF (congestive heart failure) Father , in his 70s of an [place] Myocardial infarction Social History Smoking Status: Never smoker packs per day: 4; Second Hand Exposure: No; Do You Dip or Chew Tobacco: No; Hx Alcohol Use: No Hx Substance Use: No Preferred Language: Icelandic Communication Ability: Effective Pediatric Acute Care Unit Nurse Required: No Beliefs That Will Affect Care: None marital status: Current Living Situation: Spouse current occupational status: retired current occupation: Multiple different jobs retiring in her 50s. Other Information That Helps Us Care for You: No Feels Safe at Home: Yes Safety Concerns: Feels Safe At This Time Assistive Devices: None Review of Systems Review of Systems: ROS: Gen: Denies weakness, fevers, weight loss Eyes: No eye redness, or pain, no recent vision changes Resp: No SOB, no cough Cardio: No palpitations/irregular beats, no chest pain GI: As per HPI, otherwise (-). : Denies pain on urination Skin: No jaundice, itching or new rashes Physical Exam Constitutional: WD/WN, vitals as above Eyes: PERRL, conjunctivae normal, anicteric sclerae ENMT: external ear and nose normal, oropharynx normal Neck: trachea midline, no thyromegaly Respiratory: normal respiratory effort, lungs clear to auscultation Cardiovascular: RRR, 1/6 systolic murmur, no edema Gastrointestinal (Abdomen): normal bowel sounds, soft, nontender, no hepatosplenomegaly Musculoskeletal: no cyanosis or clubbing, extremities motor strength 5/5 Skin: no rashes, warm and dry Neurologic: PERRL, EOMI, accommodation nl, no face palsy, no dysarthria Psychiatric: A+Ox3, euthymic affect Lymphatic: no cervical or axillary lymphadenopathy Results & Data Vital Signs (Past 12 Hours) Vital Signs Temp Pulse Pulse Resp BP BP Pulse Ox 06/01/23 08:30 36.6 C 94 H 16 132/62 94 06/01/23 07:19 06/01/23 06:42 36.6 C 98 H 14 139/66 99 06/01/23 05:30 115/50 L 06/01/23 05:00 90 19 114/49 L 100 06/01/23 04:30 91 H 14 124/56 L 97 06/01/23 04:24 92 H 06/01/23 04:00 89 14 111/56 L 97 06/01/23 03:30 89 14 123/46 L 98 06/01/23 03:00 84 17 114/46 L 100 06/01/23 02:37 37.2 C 85 15 125/59 L 100 O2 Del Method 06/01/23 08:30 06/01/23 07:19 Room Air 06/01/23 06:42 Room Air 06/01/23 05:30 06/01/23 05:00 Room Air 06/01/23 04:30 Room Air 06/01/23 04:24 06/01/23 04:00 Room Air 06/01/23 03:30 Room Air 06/01/23 03:00 Room Air 06/01/23 02:37 Room Air Laboratory Results WBC 6.7, Hct 21, Plts 123, PT 13, INR 1.2, Na 141, K 4.2, Cl 105, CO2 24, BUN 43, Cr 1.35, glucose 185 Diagnostic Findings Mesenteric US 06/01/23: 1. Patent superior mesenteric artery and celiac trunk. 2. Elevated peak systolic velocities within the proximal superior mesenteric artery suggests moderate stenosis (50-69%).
[2023-06-01] MEDS ORDERED: LIDOCAINE 2% 2 ML VIAL/AMP(20MG/ML) INFIL ONE (08:46)
[2023-06-01] MEDS ORDERED: PROPOFOL IV EMULSION 10 MG/ML 20 ML VIAL IV ONE (08:46)
[2023-06-01] MEDS ORDERED: SUCCINYLCHOLINE CHLORIDE 20 MG/ML 10 ML VIAL IV ONE (08:46)
[2023-06-01] MEDS ORDERED: ROCURONIUM BROMIDE 10 MG/ML 5 ML VIAL IV ONE (08:46)
[2023-06-01] MEDS ORDERED: fentaNYL citrate PF 100 MCG/2 ML VIAL ONE (08:47)
[2023-06-01] MEDS: SODIUM CHLORIDE 0.9% 1,000 ML IV SCH ×2 (08:49→22:41)
[2023-06-01] MEDS ORDERED: LANTUS PER UNIT CHARGE SC SCH (09:00)
[2023-06-01] MEDS ORDERED: NON-FORMULARY MEDICATION (Biotin 1 mg Capsule) PO SCH (09:00)
[2023-06-01] MEDS ORDERED: LANTUS PER UNIT CHARGE SQ SCH (09:00)
[2023-06-01] MEDS ORDERED: fentaNYL citrate PF 100 MCG/2 ML VIAL IV PRN (09:01)
[2023-06-01] MEDS ORDERED: ePHEDrine sulfate 50 MG/ML AMP IV PRN (09:01)
[2023-06-01] MEDS ORDERED: ATROPINE SULFATE 0.1 MG/ML 10ML SYR IV PRN (09:01)
[2023-06-01] MEDS ORDERED: DEXAMETHASONE SOD INJ 4 MG/ML VIAL ONE (09:51)
--- NOTE | 2023-06-01 10:01 | Operative Report ---
Post Operative Report Pre & Post Diagnosis Operation Date: 06/01/23 12:00 Pre-Op Diagnosis: RECTAL BLEED I identified the patient and participated in the time-out.: Yes Procedure Operation Date: 06/01/23 12:00 <No data on this case meets the specified criteria> Surgeon Kevin Hardwick MD [employer] None Estimated Blood Loss 0 Findings See Below (Esophageal varices, banded) Specimens None Description of Procedure EGD I attest to the content of the Intraoperative Record and any orders documented therein. Any exceptions are noted below.
--- NOTE | 2023-06-01 10:12 | GI REPORT ---
Patient Name: Martine Russell Procedure Date: 06/01/2023 8:47 AM Date of : 1940 Admit Type: Inpatient Age: 82 Gender: Female Attending MD: Kevin Hardwick MD, Procedure: Upper GI endoscopy Providers: Kevin Hardwick MD Referring MD: Oneal Valle Md Indications: Hematemesis Medicines: General Anesthesia Complications: No immediate complications. Estimated Blood Loss: Estimated blood loss: none. Procedure: Pre-Anesthesia Assessment: - Prior to the procedure, a History and Physical was performed, and patient medications, allergies and sensitivities were reviewed. The patient's tolerance of previous anesthesia was reviewed. - The risks and benefits of the procedure and the sedation options and risks were discussed with the patient. All questions were answered and informed consent was obtained. - Patient identification and proposed procedure were verified prior to the procedure by the physician and the nurse. The procedure was verified in the procedure room. - Pre-procedure physical examination revealed no contraindications to sedation. After obtaining informed consent, the endoscope was passed under direct vision. Throughout the procedure, the patient's blood pressure, pulse, and oxygen saturations were monitored continuously. The Endoscope was introduced through the mouth, and advanced to the second part of duodenum. The upper GI endoscopy was accomplished without difficulty. The patient tolerated the procedure well. Findings: Two columns of large (> 5 mm) varices with stigmata of recent bleeding were found in the lower third of the esophagus, 36 cm from the incisors. Red amalia signs were present. Four bands were successfully placed with complete eradication, resulting in deflation of varices. There was no bleeding during and at the end of the procedure. Type 1 isolated gastric varices (IGV1, varices located in the fundus) with no bleeding were found in the gastric fundus. They were small in largest diameter. Severe portal hypertensive gastropathy was found in the stomach. The duodenal bulb and second portion of the duodenum were normal. Impression: - Large (> 5 mm) esophageal varices with stigmata of recent bleeding. Banded. - IGV1, varices located in the fundus, without bleeding. - Portal hypertensive gastropathy. - Normal duodenal bulb and second portion of the duodenum. - No specimens collected. Recommendation: - Return patient to hospital [facility] for ongoing care. - Clear liquid diet for 2 days, then advance as tolerated to full liquid diet then as tolerated. - Use a proton pump inhibitor IV for 2 days then PO BID for 3 months. - IV Octreotide for 2 days. - IV Ceftriaxone. - Avoid Alendronate. - Continue Coreg. - Need to discuss risk and benefit of continuing Plavix as she is high risk for GI bleeding. - Repeat upper endoscopy in 3 months for retreatment. COMMENT: Patient at risk of worsening portal HTN gastropathy and gastric varices in the future hence may eventually need TIPS if recurrent bleeding develops. Kevin Hardwick MD 06/01/2023 10:09:15 AM Note Initiated On: 06/01/2023 8:47 AM Number of Addenda: 0 I attest to the content of the Intraoperative Record and orders documented therein, exceptions below {[id number]}
[2023-06-01] MEDS: INSULIN ASPART PER UNIT CHARGE SC SCH ×3 (10:40→18:28)
[2023-06-01] MEDS: ASCORBIC ACID 500 MG TAB PO SCH (10:41)
[2023-06-01] MEDS: ATORVASTATIN 40 MG TAB PO SCH (10:41)
[2023-06-01] MEDS: CINACALCET HCL 30 MG TAB PO SCH (10:41)
[2023-06-01] MEDS: carvediloL 3.125 MG TAB PO SCH ×2 (10:41→20:37)
[2023-06-01] MEDS: CEROVITE ADV FORMULA TAB PO SCH (10:42)
[2023-06-01] MEDS: MAGNESIUM OXIDE 400 MG TAB PO SCH (10:42)
[2023-06-01] MEDS: VITAMIN B COMPLEX TAB PO SCH (10:44)
--- NOTE | 2023-06-01 10:51 | Anesthesiology Progress Note ---
Date of Service June 01, 2023 Anesthesia Post Procedure Vital Signs Vital Signs: Temp Pulse Pulse Resp BP BP Pulse Ox 06/01/23 10:40 86 14 144/76 H 98 06/01/23 10:30 88 15 129/66 100 06/01/23 10:20 97.5 F L 89 16 147/70 H 100 06/01/23 10:14 97.2 F L 90 12 148/66 H 100 06/01/23 08:55 97.9 F 101 H 17 124/55 L 99 06/01/23 08:50 91 H 12 123/54 L 100 06/01/23 08:44 97.7 F 97 H 16 136/59 L 98 06/01/23 08:30 97.9 F 94 H 16 132/62 94 06/01/23 07:19 06/01/23 07:10 99 H 06/01/23 06:42 97.9 F 98 H 14 139/66 99 06/01/23 05:30 115/50 L 06/01/23 05:00 90 19 114/49 L 100 06/01/23 04:30 91 H 14 124/56 L 97 06/01/23 04:24 92 H 06/01/23 04:00 89 14 111/56 L 97 06/01/23 03:30 89 14 123/46 L 98 06/01/23 03:00 84 17 114/46 L 100 06/01/23 02:37 99.0 F 85 15 125/59 L 100 O2 Del Method O2 Flow Rate 06/01/23 10:40 Room Air 06/01/23 10:30 Oxymask 2 06/01/23 10:20 Oxymask 13 06/01/23 10:14 Oxymask 13 06/01/23 08:55 Room Air 06/01/23 08:50 06/01/23 08:44 06/01/23 08:30 06/01/23 07:19 Room Air 06/01/23 07:10 06/01/23 06:42 Room Air 06/01/23 05:30 06/01/23 05:00 Room Air 06/01/23 04:30 Room Air 06/01/23 04:24 06/01/23 04:00 Room Air 06/01/23 03:30 Room Air 06/01/23 03:00 Room Air 06/01/23 02:37 Room Air Transfer of Care Handoff Completed per policy Notes Mental Status: alert / awake / arousable and participated in evaluation Patient Amnestic to Procedure: Yes Nausea / Vomiting: adequately controlled Pain: adequately controlled Airway Patency, RR, SpO2: stable & adequate BP & HR: stable & adequate Hydration State: stable & adequate Anesthetic Complications: no major complications apparent and Pt Satisfied with anesthetic care
[2023-06-01 13:31] LABS: Basophils # (auto) 0.03 K/uL (0.00-0.20); Basophils % (auto) 0.6 %; Eosinophils # (auto) 0.02 K/uL (0.00-0.50); Eosinophils % (auto) 0.4 %; Hemoglobin 9.5 g/dl (12.0-16.0); Immature Granulocytes # (auto) 0.01 K/uL (0.01-0.20); Immature Granulocytes % (auto) 0.2 %; Lymphocytes # (auto) 0.83 K/uL (1.20-3.40); Lymphocytes % (auto) 15.4 %; Mean Corpuscular Hemoglobin 29.3 pg (25.0-34.0); Mean Corpuscular Hgb Conc 33.9 g/dL (32.0-36.0); Mean Corpuscular Volume 86.4 fL (80.0-100.0); Mean Platelet Volume 11.3 fL (9.4-12.4); Monocytes # (auto) 0.08 K/uL (0.11-0.59); Monocytes % (auto) 1.5 %; Neutrophils # (auto) 4.41 K/uL (1.40-6.50); Neutrophils % (auto) 81.9 %; Platelet Count 120 K/uL (130-400); RDW Coefficient of Variation 16.2 % (11.5-14.5); RDW Standard Deviation 50.8 fL (36.4-46.3); Red Blood Count 3.24 M/uL (4.20-5.40); White Blood Count 5.38 K/ul (4.8-10.8)
--- NOTE | 2023-06-01 14:16 | Pharmacy Report ---
Pharmacy Glycemic Short Note 2 - Date of Service June 01, 2023 - Glycemic Short BSG Results (Last 24 hours): 06/01/23 06/01/23 06/01/23 02:31 07:09 08:29 Glucose 120 H 155 H POC Glucose 185 H 06/01/23 06/01/23 10:22 11:45 Glucose POC Glucose 151 H 167 H OUTPATIENT ANTIDIABETIC REGIMEN: * Novolin 70/30 25 units w/ breakfast, 10 units with supper; metformin 1000 mg BIDM * A1c 7.4% 04/25/23 ASSESSMENT: * Patient admitted with GI Bleed, started on protonix + octreotide gtt. * NPO, received 12 units of lantus this morning; ~30 % reduction from home dose for AM dose; Will put scale for PM to receive possible additional 5 units * Started novolog similar to weight based stress of 2/ total daily insulin stress of 2. Will monitor. PLAN FOR INPATIENT GLYCEMIC CONTROL: * Hold outpatient oral diabetes medications * Basal insulin * Lantus 12 units x 1, additional 5 units this PM if BSGs elevated * Bolus insulin * NovoLog per scale ACHS or Q6hrs while NPO * Goal Range: Low 120 mg/dL - High 160 mg/dL * Correction Factor: 35 mg/dL/unit * Nutritional / Prandial insulin per carb ratio of 1 unit per 11 grams CHO consumed
[2023-06-01] MEDS: PIPERACILLIN/TAZOBACTAM 4.5 GM in DEXTROSE 5% MINI-B 100 ML IV SCH ×2 (15:00→21:20)
[2023-06-01 19:20] LABS: Hematocrit (blood only) 27.4 % (37.0-47.0); Hemoglobin 8.9 g/dl (12.0-16.0)
[2023-06-02] MEDS: PANTOprazole 40 MG in DEXTROSE 5% MINI-B 100 ML IV SCH ×5 (00:04→19:57)
[2023-06-02] MEDS: INSULIN ASPART PER UNIT CHARGE SC SCH ×4 (00:23→22:05)
[2023-06-02] MEDS: OCTREOTIDE ACETATE 500 MCG in 0.9 % SODIUM CHLORIDE 100 ML IV SCH ×3 (02:20→22:51)
[2023-06-02] MEDS: PIPERACILLIN/TAZOBACTAM 4.5 GM in DEXTROSE 5% MINI-B 100 ML IV SCH ×3 (05:23→22:04)
[2023-06-02 07:07] LABS: Hemoglobin 8.5 g/dl (12.0-16.0); Mean Corpuscular Hemoglobin 28.3 pg (25.0-34.0); Mean Corpuscular Hgb Conc 32.7 g/dL (32.0-36.0); Mean Corpuscular Volume 86.7 fL (80.0-100.0); Mean Platelet Volume 12.1 fL (9.4-12.4); Platelet Count 130 K/uL (130-400); RDW Coefficient of Variation 16.7 % (11.5-14.5); RDW Standard Deviation 52.5 fL (36.4-46.3); White Blood Count 13.64 K/ul (4.8-10.8)
[2023-06-02 07:23] LABS: Bilirubin,Total 1.5 mg/dl (0.2-1.0)
[2023-06-02 07:24] LABS: Albumin Level 2.9 gm/dl (3.4-5.0); Bilirubin Direct 0.5 mg/dl (0-0.2); Calcium 7.7 mg/dl (8.6-10.3); Magnesium 1.7 mg/dl (1.7-2.4); Potassium 3.7 mmol/L (3.5-5.1)
[2023-06-02 07:30] LABS: BUN Creatinine Ratio 31.1 (10-20); Creatinine Clr Calc Pharmacy 31.5 ml/min; Est GFR (African American) 43.4 ml/min; Est GFR (Non-African American) 37.5 ml/min; Globulin 2.8 gm/dl (2.5-4.0); Phosphorus 5.2 mg/dl (2.5-4.9); Total Protein 5.7 gm/dl (6.0-8.3)
[2023-06-02 08:04] LABS: Estimated Average Glucose 114 mg/dl; Hemoglobin A1C 5.6 % (4.5-5.6)
--- NOTE | 2023-06-02 08:14 | Hospitalist Progress Note ---
Date of Service June 02, 2023 Assessment & Plan (1) Acute GI bleeding: Plan: 82 yo F w/ type 2 diabetes, diabetic peripheral angiopathy, hyperlipidemia, hyperparathyroidism, lung nodules, heart failure with preserved ejection fraction, portal hypertension, aortic ectasia, superior mesenteric artery stenosis s/p stent, history of valvular disease, hypertension, history of CVA, history of CAD, GERD, history of pericolonic abscess, history of hepatic cirrho sis, history of GI bleed associated with intestinal diverticulosis, osteoporosis, anemia, visual field loss poststroke, history of hyponatremia presents with rectal bleed. Patient states since last night she had several episodes of small amount of rectal bleed. Also had a few episodes of vomiting but no blood in the vomiting or no black vomitus. Denies any abdominal pain. Shortly after admission pt developed hematemesis and was taken to EGD - underwent esophageal varices banding w/ GI. 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 Patient was admitted to [facility] on April 24, 2023 for GI bleed and received total of 3 units of PRBC. Was on Sandostatin, Protonix drip and Rocephin. EGD was okay except showing grade 2 esophageal varices. And she was transferred to [place] for possible mesenteric ischemia and ischemic colitis and possible need for IR intervention. GI did colonoscopy which revealed diverticulosis with old bleeding and no active bleeding and there was no evidence of recurrent ischemic colitis. Patient restarted on Plavix and discharged to follow-up with vascular surgery and metoprolol was changed to Coreg. And advised to follow with hepatology for liver cirrhosis. Patient was again admitted to [facility] on May 12, 2023 with acute GI bleeding with a mix of black and bright red blood. She was s/p 2 units of PRBC. EGD was done which was again showed grade 2 esophageal varices. Portal hypertension gastropathy. Normal examined duodenum. Hemoglobin was stabilized and she was again discharged. Patient has had a follow-up appointment with vascular surgery yesterday and plan to follow-up with repeat mesenteric ultrasounds. Acute GI bleeding Rectal bleed Hematemesis s/p EGD and banding of esophageal varices (06/01/2023) Acute blood loss anemia 2/2 GI bleed Patient had EGD twice recently which showed grade 2 esophageal varices and portal hypertensive gastropathy Recent colonoscopy showed diverticulosis Hemoglobin on admission 8.6 -> down to 6.9 on repeat. on admission Patient had small amount of rectal bleed several times. then developed hematemesis shortly after admission. Placed on gentle fluids normal saline 75 mill per hour Blood consent obtained - 1 unit of pRBC transfused on 06/01/23 (confirmed w/ blood bank) Hgb this AM 8.5 -> at noon repeated 8.8 + BMs w/ blood Cont. to monitor H&H Because of esophageal varices placed on Sandostatin drip, PPI drip and Zosyn History of ischemic colitis with SMA stent placement. In April CT scan was okay. Currently patient has no abdominal pain hold plavix. h and h q 6hrs GI consulted - s/p EGD and banding of esophageal varices (06/01/2023) Findings: Two columns of large (> 5 mm) varices with stigmata of recent bleeding were found in the lower third of the esophagus, 36 cm from the incisors. Red amalia signs were present. Four bands were successfully placed with complete eradication, resulting in deflation of varices. There was no bleeding during and at the end of the procedure. Type 1 isolated gastric varices (IGV1, varices located in the fundus) with no bleeding were found in the gastric fundus. They were small in largest diameter. Severe portal hypertensive gastropathy was found in the stomach. The duodenal bulb and second portion of the duodenum were normal. Impression: - Large (> 5 mm) esophageal varices with stigmata of recent bleeding. Banded. - IGV1, varices located in the fundus, without bleeding. - Portal hypertensive gastropathy. - Normal duodenal bulb and second portion of the duodenum. - No specimens collected. Recommendation: - Return patient to [facility] for ongoing care. - Clear liquid diet for 2 days, then advance as tolerated to full liquid diet then as tolerated. - Use a proton pump inhibitor IV for 2 days then PO BID for 3 months. - IV Octreotide for 2 days. - IV Ceftriaxone. - Avoid Alendronate. - Continue Coreg. - Need to discuss risk and benefit of continuing Plavix as she is high risk for GI bleeding. - Repeat upper endoscopy in 3 months for retreatment. COMMENT: Patient at risk of worsening portal HTN gastropathy and gastric varices in the future hence may eventually need TIPS if recurrent bleeding develops. Continue to closely monitor Elevated lactic acidosis Likely 2/2 to above Patient also has liver cirrhosis History of ischemic colitis and SMA's stent Patient currently has no abdominal pain mesenteric duplex obtained - patent sma stent and proximal sma moderate stenosis repeat lactic acid level improved to 2.1 Close monitor JANELL Presented with cr 1.4 Holding diuretics and losartan Avoid nephrotoxic agents Follow repeat labs. History of liver cirrhosis Getting fluids and diuretic on hold Monitor for volume overload Chronic heart failure with preserved ejection fraction Holding diuretics Getting fluids Monitor for volume overload Diabetes Hold home medications Lantus and insulin sliding scale Glycemic pharmacy consult History of CAD Holding Plavix Continue beta-blockers and statin HTN holding Losartan and diuretic Coreq with holding parameters DVT prophylaxis SCDs Disposition Telemetry floor CODE STATUS DNR/DNI as per admitting physician's discussion with the patient. Admission and Anticipated Discharge Date Admission Date: June 01, 2023 Subjective Pt seen in follow up of GI bleed, blood per rectum, hematemesis s/p banding of esophageal varices Currently laying in bed, in no acute distress feeling well Denies any abdominal pain Denies fevers chills chest pain shortness of breath Had some bloody bowel movement last night and this morning per RN Hgb this AM 8.5 -> repeated at noon 8.8 Pt received 1 unit of pRBC yesterday - this was confirmed w/ blood bank Review of Systems Review of Systems: All systems reviewed & are unremarkable except as noted in Subjective Physical Exam Physical Exam: General- WD/WN F in NAD Head- atraumatic Eyes- PERRL. ENT- oropharynx clear Neck- supple, no JVD. Lungs- clear to auscultation no wheezing or crackles. Heart- regular rate and rhythm; no murmur, no gallop. Abdomen- normal bowel sounds, soft, nontender, no distension Extremities- no pretibial edema, no erythema seen. Neuro- alert, oriented x 3; PERRL, no facial palsy; no dysarthria; moves extremities. Skin- warm & dry Results & Data Results & Data Vital Signs (Past 12 Hours) Vital Signs Temp Pulse Pulse Resp BP Pulse Ox Pulse Ox 06/02/23 07:14 36.8 C 96 H 18 141/83 H 98 06/02/23 06:42 94 06/02/23 03:00 92 H 15 145/69 H 95 06/01/23 23:00 36.7 C 92 H 24 156/85 H 97 06/01/23 22:00 92 H O2 Del Method O2 Del Method 06/02/23 07:14 Room Air 06/02/23 06:42 Room Air 06/02/23 03:00 Room Air 06/01/23 23:00 Room Air 06/01/23 22:00 Laboratory Results 06/02/23 06/02/23 06/02/23 Range/Units 06:53 06:24 00:13 WBC 13.64 H (4.8-10.8) K/ul RBC 3.00 L (4.20-5.40) M/uL Hgb 8.5 L (12.0-16.0) g/dl Hct 26.0 L (37.0-47.0) % MCV 86.7 (80.0-100.0) fL MCH 28.3 (25.0-34.0) pg MCHC 32.7 (32.0-36.0) g/dL RDW Std Deviation 52.5 H (36.4-46.3) fL RDW Coeff of Vanita 16.7 H (11.5-14.5) % Plt Count 130 (130-400) K/uL MPV 12.1 (9.4-12.4) fL Immature Gran % (Auto) % Neut % (Auto) % Lymph % (Auto) % [place] % (Auto) % Eos % (Auto) % Baso % (Auto) % Neut # (Auto) (1.40-6.50) K/uL Lymph # (Auto) (1.20-3.40) K/uL [place] # (Auto) (0.11-0.59) K/uL Eos # (Auto) (0.00-0.50) K/uL Baso # (Auto) (0.00-0.20) K/uL Immature Gran # (Auto) (0.01-0.20) K/uL Sodium 142 (136-145) mmol/L Potassium 3.7 (3.5-5.1) mmol/L Chloride 109 H (98-107) mmol/L Carbon Dioxide 21 (21-32) mmol/L Anion Gap 12 H (3-11) BUN 41 H (6-23) mg/dl Creatinine 1.32 H (0.6-1.2) mg/dl Est Cr Clr Drug Dosing 31.5 ml/min Est GFR ( Amer) 43.4 ml/min Est GFR (Non-Af Amer) 37.5 ml/min BUN/Creatinine Ratio 31.1 H (10-20) Glucose 195 H (70-99(Fasting)) mg/dl POC Glucose 182 H 114 H (70-99) mg/dl Estimat Average Glucose Pending Hemoglobin A1c Pending Calcium 7.7 L (8.6-10.3) mg/dl Phosphorus 5.2 H (2.5-4.9) mg/dl Magnesium 1.7 (1.7-2.4) mg/dl Total Bilirubin 1.5 H (0.2-1.0) mg/dl Direct Bilirubin 0.5 H (0-0.2) mg/dl AST 39 (13-39) U/L ALT 29 (7-52) U/L Alkaline Phosphatase 40 (34-104) U/L Total Protein 5.7 L (6.0-8.3) gm/dl Albumin 2.9 L (3.4-5.0) gm/dl Globulin 2.8 (2.5-4.0) gm/dl Albumin/Globulin Ratio 1.0 (0.9-2) Blood Type Antibody Screen Crossmatch 06/01/23 06/01/23 06/01/23 Range/Units 19:01 18:13 13:06 WBC 5.38 (4.8-10.8) K/ul RBC 3.24 L (4.20-5.40) M/uL Hgb 8.9 L 9.5 L (12.0-16.0) g/dl Hct 27.4 L 28.0 L (37.0-47.0) % MCV 86.4 (80.0-100.0) fL MCH 29.3 (25.0-34.0) pg MCHC 33.9 (32.0-36.0) g/dL RDW Std Deviation 50.8 H (36.4-46.3) fL RDW Coeff of Vanita 16.2 H (11.5-14.5) % Plt Count 120 L (130-400) K/uL MPV 11.3 (9.4-12.4) fL Immature Gran % (Auto) 0.2 % Neut % (Auto) 81.9 % Lymph % (Auto) 15.4 % [place] % (Auto) 1.5 % Eos % (Auto) 0.4 % Baso % (Auto) 0.6 % Neut # (Auto) 4.41 (1.40-6.50) K/uL Lymph # (Auto) 0.83 L (1.20-3.40) K/uL [place] # (Auto) 0.08 L (0.11-0.59) K/uL Eos # (Auto) 0.02 (0.00-0.50) K/uL Baso # (Auto) 0.03 (0.00-0.20) K/uL Immature Gran # (Auto) 0.01 (0.01-0.20) K/uL Sodium (136-145) mmol/L Potassium (3.5-5.1) mmol/L Chloride (98-107) mmol/L Carbon Dioxide (21-32) mmol/L Anion Gap (3-11) BUN (6-23) mg/dl Creatinine (0.6-1.2) mg/dl Est Cr Clr Drug Dosing ml/min Est GFR ( Amer) ml/min Est GFR (Non-Af Amer) ml/min BUN/Creatinine Ratio (10-20) Glucose (70-99(Fasting)) mg/dl POC Glucose 164 H (70-99) mg/dl Estimat Average Glucose Hemoglobin A1c Calcium (8.6-10.3) mg/dl Phosphorus (2.5-4.9) mg/dl Magnesium (1.7-2.4) mg/dl Total Bilirubin (0.2-1.0) mg/dl Direct Bilirubin (0-0.2) mg/dl AST (13-39) U/L ALT (7-52) U/L Alkaline Phosphatase (34-104) U/L Total Protein (6.0-8.3) gm/dl Albumin (3.4-5.0) gm/dl Globulin (2.5-4.0) gm/dl Albumin/Globulin Ratio (0.9-2) Blood Type Antibody Screen Crossmatch 06/01/23 06/01/23 06/01/23 Range/Units 11:45 10:22 08:29 WBC (4.8-10.8) K/ul RBC (4.20-5.40) M/uL Hgb (12.0-16.0) g/dl Hct (37.0-47.0) % MCV (80.0-100.0) fL MCH (25.0-34.0) pg MCHC (32.0-36.0) g/dL RDW Std Deviation (36.4-46.3) fL RDW Coeff of Vanita (11.5-14.5) % Plt Count (130-400) K/uL MPV (9.4-12.4) fL Immature Gran % (Auto) % Neut % (Auto) % Lymph % (Auto) % [place] % (Auto) % Eos % (Auto) % Baso % (Auto) % Neut # (Auto) (1.40-6.50) K/uL Lymph # (Auto) (1.20-3.40) K/uL [place] # (Auto) (0.11-0.59) K/uL Eos # (Auto) (0.00-0.50) K/uL Baso # (Auto) (0.00-0.20) K/uL Immature Gran # (Auto) (0.01-0.20) K/uL Sodium (136-145) mmol/L Potassium (3.5-5.1) mmol/L Chloride (98-107) mmol/L Carbon Dioxide (21-32) mmol/L Anion Gap (3-11) BUN (6-23) mg/dl Creatinine (0.6-1.2) mg/dl Est Cr Clr Drug Dosing ml/min Est GFR ( Amer) ml/min Est GFR (Non-Af Amer) ml/min BUN/Creatinine Ratio (10-20) Glucose (70-99(Fasting)) mg/dl POC Glucose 167 H 151 H 185 H (70-99) mg/dl Estimat Average Glucose Hemoglobin A1c Calcium (8.6-10.3) mg/dl Phosphorus (2.5-4.9) mg/dl Magnesium (1.7-2.4) mg/dl Total Bilirubin (0.2-1.0) mg/dl Direct Bilirubin (0-0.2) mg/dl AST (13-39) U/L ALT (7-52) U/L Alkaline Phosphatase (34-104) U/L Total Protein (6.0-8.3) gm/dl Albumin (3.4-5.0) gm/dl Globulin (2.5-4.0) gm/dl Albumin/Globulin Ratio (0.9-2) Blood Type Antibody Screen Crossmatch 06/01/23 Range/Units 02:54 WBC (4.8-10.8) K/ul RBC (4.20-5.40) M/uL Hgb (12.0-16.0) g/dl Hct (37.0-47.0) % MCV (80.0-100.0) fL MCH (25.0-34.0) pg MCHC (32.0-36.0) g/dL RDW Std Deviation (36.4-46.3) fL RDW Coeff of Vanita (11.5-14.5) % Plt Count (130-400) K/uL MPV (9.4-12.4) fL Immature Gran % (Auto) % Neut % (Auto) % Lymph % (Auto) % [place] % (Auto) % Eos % (Auto) % Baso % (Auto) % Neut # (Auto) (1.40-6.50) K/uL Lymph # (Auto) (1.20-3.40) K/uL [place] # (Auto) (0.11-0.59) K/uL Eos # (Auto) (0.00-0.50) K/uL Baso # (Auto) (0.00-0.20) K/uL Immature Gran # (Auto) (0.01-0.20) K/uL Sodium (136-145) mmol/L Potassium (3.5-5.1) mmol/L Chloride (98-107) mmol/L Carbon Dioxide (21-32) mmol/L Anion Gap (3-11) BUN (6-23) mg/dl Creatinine (0.6-1.2) mg/dl Est Cr Clr Drug Dosing ml/min Est GFR ( Amer) ml/min Est GFR (Non-Af Amer) ml/min BUN/Creatinine Ratio (10-20) Glucose (70-99(Fasting)) mg/dl POC Glucose (70-99) mg/dl Estimat Average Glucose Hemoglobin A1c Calcium (8.6-10.3) mg/dl Phosphorus (2.5-4.9) mg/dl Magnesium (1.7-2.4) mg/dl Total Bilirubin (0.2-1.0) mg/dl Direct Bilirubin (0-0.2) mg/dl AST (13-39) U/L ALT (7-52) U/L Alkaline Phosphatase (34-104) U/L Total Protein (6.0-8.3) gm/dl Albumin (3.4-5.0) gm/dl Globulin (2.5-4.0) gm/dl Albumin/Globulin Ratio (0.9-2) Blood Type A Positive Antibody Screen NEGATIVE Crossmatch See Detail Medications Administered Current Inpatient Medications Ascorbic Acid (Ascorbic Acid 500 Mg Tab) 500 mg PO DAILY [facility] Stop: 07/01/23 08:59 Last Admin: 06/01/23 10:41 Dose: Not Given Atorvastatin Calcium (Atorvastatin 40 Mg Tab) 40 mg PO DAILY [facility] Stop: 07/01/23 08:59 Last Admin: 06/01/23 10:41 Dose: Not Given Carvedilol (Carvedilol 3.125 Mg Tab) 3.125 mg PO BID [facility] Stop: 07/01/23 08:59 Last Admin: 06/01/23 20:37 Dose: 3.125 mg Cinacalcet (Cinacalcet Hcl 30 Mg Tab) 30 mg PO DAILY [facility] Stop: 07/01/23 08:59 Last Admin: 06/01/23 10:41 Dose: Not Given Dextrose (Dextrose 50% 50 Ml Syringe) 25 - 50 ml IV UD PRN; Protocol PRN Reason: Hypoglycemia Protocol Stop: 07/01/23 06:41 Glucagon (Glucagon For Inj 1 Mg Vial) 1 mg SQ UD PRN; Protocol PRN Reason: Hypoglycemia Protocol Stop: 07/01/23 06:41 Glucose (Glucose 10 Tab/Tube) 4 - 8 tab PO UD PRN; Protocol PRN Reason: Hypoglycemia Treatment Stop: 07/01/23 06:41 Glucose (Glucose 40% Gel 15 Gm Tube) 15 - 30 gm PO UD PRN; Protocol PRN Reason: Hypoglycemia Protocol Stop: 07/01/23 06:41 Sodium Chloride (Nss) 1,000 mls @ 75 mls/hr IV .[id number] [facility] Stop: 06/02/23 09:21 Last Admin: 06/01/23 22:41 Dose: 75 mls/hr Pantoprazole Sodium 40 mg/ (Dextrose) 100 mls @ 20 mls/hr IV Q5H [facility] Stop: 07/01/23 06:59 Last Admin: 06/02/23 05:23 Dose: 8 mg/hr, 20 mls/hr Piperacillin Sod/Tazobactam (Sod 4.5 gm/ Dextrose) 100 mls @ 25 mls/hr IV Q8H [facility]; Protocol Stop: 06/11/23 13:59 Last Admin: 06/02/23 05:23 Dose: 25 mls/hr Octreotide Acetate 500 mcg/ (Sodium Chloride) 105 mls @ 10.5 mls/hr IV .Q10H [facility] Stop: 07/01/23 06:59 Last Admin: 06/02/23 02:20 Dose: 50 mcg/hr, 10.5 mls/hr Insulin Aspart (Insulin Aspart Per Unit Charge) 0 units SC Q6 [facility] Stop: 07/01/23 07:29 Last Admin: 06/02/23 06:32 Dose: 1 units Insulin Glargine (Lantus Per Unit Charge) 16 units SC QAM [facility] Stop: 07/01/23 08:59 Magnesium Oxide (Magnesium Oxide 400 Mg Tab) 400 mg PO DAILY [facility] Stop: 07/01/23 08:59 Last Admin: 06/01/23 10:42 Dose: Not Given Melatonin (Melatonin 3 Mg Tab) 9 mg PO HSZ PRN PRN Reason: Insomnia Stop: 07/01/23 07:20 Miscellaneous (Carbohydrates For Hypoglycemia ) 15 - 30 gm PO UD PRN PRN Reason: Hypoglycemia Protocol Stop: 07/01/23 06:41 Miscellaneous Information (Pharmacy Glycemic Mgmt Consult) 1 each N/A UD PRN PRN Reason: Consult Stop: 07/01/23 06:41 Multivitamins/Minerals (Cerovite Adv Formula Tab) 1 tab PO DAILY [facility] Stop: 07/01/23 08:59 Last Admin: 06/01/23 10:42 Dose: Not Given Nitroglycerin (Nitroglycerin Sl 0.4 Mg/Tab Tab) 0.4 mg SL Q5M PRN PRN Reason: Chest Pain Stop: 07/01/23 06:41 Ondansetron HCl (Ondansetron Inj 2 Mg/Ml 2 Ml Vial) 4 mg IV Q6H PRN PRN Reason: Nausea Stop: 07/01/23 06:41 Vitamin B Complex (Vitamin B Complex Tab) 1 tab PO DAILY [facility] Stop: 07/01/23 08:59 Last Admin: 06/01/23 10:44 Dose: Not Given
[2023-06-02] MEDS ORDERED: LANTUS PER UNIT CHARGE SC SCH ×2 (09:00→21:00)
--- NOTE | 2023-06-02 10:00 | Gastroenterology Progress Note ---
Date of Service June 02, 2023 Assessment & Plan (1) Hematemesis: (2) Esophageal varices: (3) Melena: (4) Acute blood loss anemia: (5) Hepatic cirrhosis: Plan Had 2 bloody BMs (one last night, one this morning) but Hb stable BUN mildly elevated but also Cr slightly elevated. Continue to follow closely including documentation of outputs/amt of blood/color of blood in BMs. For now, continue Octreotide and PPI drips and keep NPO. If no bleeding, then tomorrow, can change PPI to po BID and stop the Octreotide. Full liquids diet tonight. Advance tomorrow if no active bleeding. Needs repeat OP EGD in , our office will contact to arrange. Admission and Anticipated Discharge Date Admission Date: June 01, 2023 Supervising Physician Co-Signing Physician Notes I performed a history and physical examination of the patient today, including specifically on physical exam - soft abdomen. I have discussed the patient's management with the advanced practitioner. Please refer to the nurse practitioner's note for the documented findings and plan of care. No hematemesis. She has chronic hematochezia prior to admission, melena seems to be clearing out. Change drips to PO tomorrow. Recall GI if needed. Subjective 82 , female, cirrhosis w EV, DM2, CHF, SMA stenosis admitted yesterday for rectal bleed. EGD yesterday - varices banded. On Octreotide, PPI drip. Last night passed a red/black BM. This morning a moderate sized mostly red BM. Hb 6.7 yesterday (got 2 units of RBCs, one prior and one post EGD) -> 8.5 this morning. No abd pain, no N/V. Appears well. HR 104, BP 126/57. Asking to eat. Review of Systems Review of Systems: ROS: Gen: Denies weakness, fevers, weight loss Eyes: No eye redness, or pain, no recent vision changes Resp: No SOB, no cough Cardio: No palpitations/irregular beats, no chest pain GI: As per HPI, otherwise (-). : Denies pain on urination Skin: No jaundice, itching or new rashes Physical Exam Constitutional: WD/WN, vitals as above Eyes: PERRL, conjunctivae normal, anicteric sclerae ENMT: external ear and nose normal, oropharynx normal Neck: trachea midline, no thyromegaly Respiratory: normal respiratory effort, lungs clear to auscultation Cardiovascular: HR 104, Regular, 2/6 systolic murmur Gastrointestinal (Abdomen): normal bowel sounds, soft, nontender, no hepatosplenomegaly Musculoskeletal: no cyanosis or clubbing, extremities motor strength 5/5 Skin: no rashes, warm and dry Neurologic: PERRL, EOMI, accommodation nl, no face palsy, no dysarthria Psychiatric: A+Ox3, euthymic affect Lymphatic: no cervical or axillary lymphadenopathy Results & Data Vital Signs (Past 12 Hours) Vital Signs Temp Pulse Pulse Resp BP Pulse Ox Pulse Ox 06/02/23 07:14 36.8 C 96 H 18 141/83 H 98 06/02/23 06:42 94 06/02/23 03:00 92 H 15 145/69 H 95 06/01/23 23:00 36.7 C 92 H 24 156/85 H 97 06/01/23 22:00 92 H O2 Del Method O2 Del Method 06/02/23 07:14 Room Air 06/02/23 06:42 Room Air 06/02/23 03:00 Room Air 06/01/23 23:00 Room Air 06/01/23 22:00 Laboratory Results WBC 13, Hb 8.5, Hct 26, plts 130, Na 142, K 3.7, Cl 109, CO2 21, BUN 41, Cr 1.32, glucose 182.
[2023-06-02] MEDS: carvediloL 3.125 MG TAB PO SCH ×2 (10:32→22:05)
[2023-06-02] MEDS: ATORVASTATIN 40 MG TAB PO SCH (10:33)
[2023-06-02] MEDS: CEROVITE ADV FORMULA TAB PO SCH (10:33)
[2023-06-02] MEDS: VITAMIN B COMPLEX TAB PO SCH (10:33)
[2023-06-02] MEDS: MAGNESIUM OXIDE 400 MG TAB PO SCH (10:33)
[2023-06-02] MEDS: ASCORBIC ACID 500 MG TAB PO SCH (10:33)
[2023-06-02] MEDS: LANTUS PER UNIT CHARGE SC SCH (10:51)
[2023-06-02] MEDS: CINACALCET HCL 30 MG TAB PO SCH (10:51)
[2023-06-02 12:05] LABS: Hematocrit (blood only) 26.5 % (37.0-47.0); Hemoglobin 8.8 g/dl (12.0-16.0)
[2023-06-02 12:20] LABS: BUN Creatinine Ratio 27.7 (10-20); Creatinine Clr Calc Pharmacy 30.3 ml/min; Est GFR (African American) 41.5 ml/min; Est GFR (Non-African American) 35.8 ml/min
--- NOTE | 2023-06-02 13:03 | Pharmacy Report ---
Pharmacy Glycemic Short Note 2 - Date of Service June 02, 2023 - Glycemic Short BSG Results (Last 24 hours): 06/01/23 06/02/23 06/02/23 18:13 00:13 06:24 Glucose POC Glucose 164 H 114 H 182 H 06/02/23 06/02/23 06/02/23 06:53 10:46 12:04 Glucose 195 H POC Glucose 218 H 243 H OUTPATIENT ANTIDIABETIC REGIMEN: * Novolin 70/30 25 units w/ breakfast, 10 units with supper; metformin 1000 mg BIDM * A1c 7.4% 04/25/23 ASSESSMENT: 06/02: * Continues on protonix + octreotide infusion * Lantus ordered for this morning not given until 11. Fasting this AM 182 mg/dL- will titrate basal up * Noon BSG elevated, tightened correction factor. Diet has been ordered. Monitor 06/01 * Patient admitted with GI Bleed, started on protonix + octreotide gtt. * NPO, received 12 units of lantus this morning; ~30 % reduction from home dose for AM dose; Will put scale for PM to receive possible additional 5 units * Started novolog similar to weight based stress of 2/ total daily insulin stress of 2. Will monitor. PLAN FOR INPATIENT GLYCEMIC CONTROL: * Hold outpatient oral diabetes medications * Basal insulin * Lantus 16 units qAM, additional 4 units this PM if BSGs elevated * Bolus insulin * NovoLog per scale ACHS or Q6hrs while NPO * Goal Range: Low 110 mg/dL - High 140 mg/dL * Correction Factor: 30 mg/dL/unit * Nutritional / Prandial insulin per carb ratio of 1 unit per 11 grams CHO consumed
[2023-06-02 19:42] LABS: Hematocrit (blood only) 24.3 % (37.0-47.0); Hemoglobin 7.9 g/dl (12.0-16.0)
--- NOTE | 2023-06-02 22:49 | Electrocardiogram Report ---
Test Reason : Blood Pressure : / mmHG Vent. Rate : 083 BPM Atrial Rate : 083 BPM P-R Int : 190 ms QRS Dur : 084 ms QT Int : 420 ms P-R-T Axes : 054 081 063 degrees QTc Int : 493 ms Normal sinus rhythm Anterior infarct , age undetermined Prolonged QT Abnormal ECG When compared with ECG of 12-MAY-2023 16:28, Anterior infarct is now Present Confirmed by Rupesh Champion ([id number]) on 06/02/2023 10:49:04 PM Referred By: REFERRED SELF Confirmed By:Rupesh Champion
[2023-06-02 23:51] LABS: Hematocrit (blood only) 26.7 % (37.0-47.0); Hemoglobin 8.7 g/dl (12.0-16.0)
[2023-06-03] MEDS: PANTOprazole 40 MG in DEXTROSE 5% MINI-B 100 ML IV SCH ×5 (00:55→23:25)
[2023-06-03] MEDS: PIPERACILLIN/TAZOBACTAM 4.5 GM in DEXTROSE 5% MINI-B 100 ML IV SCH (06:09)
[2023-06-03 07:00] LABS: Hematocrit (blood only) 25.7 % (37.0-47.0); Hemoglobin 8.3 g/dl (12.0-16.0); Mean Corpuscular Hemoglobin 28.7 pg (25.0-34.0); Mean Corpuscular Hgb Conc 32.3 g/dL (32.0-36.0); Mean Corpuscular Volume 88.9 fL (80.0-100.0); Mean Platelet Volume 11.3 fL (9.4-12.4); Platelet Count 128 K/uL (130-400); RDW Coefficient of Variation 16.6 % (11.5-14.5); RDW Standard Deviation 53.7 fL (36.4-46.3); Red Blood Count 2.89 M/uL (4.20-5.40); White Blood Count 13.51 K/ul (4.8-10.8)
[2023-06-03 07:23] LABS: Albumin Level 2.7 gm/dl (3.4-5.0); BUN Creatinine Ratio 22.7 (10-20); Bilirubin,Total 1.3 mg/dl (0.2-1.0); Calcium 7.2 mg/dl (8.6-10.3); Creatinine Clr Calc Pharmacy 32.7 ml/min; Est GFR (African American) 45.1 ml/min; Est GFR (Non-African American) 38.9 ml/min; Globulin 2.6 gm/dl (2.5-4.0); Magnesium 1.6 mg/dl (1.7-2.4); Phosphorus 3.7 mg/dl (2.5-4.9); Potassium 3.1 mmol/L (3.5-5.1); Total Protein 5.3 gm/dl (6.0-8.3)
[2023-06-03] MEDS ORDERED: POTASSIUM CHLORIDE PWD 20 MEQ PACK PO ONE (07:47)
[2023-06-03] MEDS ORDERED: VANCOMYCIN HCL 1,000 MG in SODIUM CHLORIDE 0.9% 250 ML IV STA (08:27)
[2023-06-03] MEDS ORDERED: VANCOMYCIN CONSULT ACTIVE PRN (08:27)
--- NOTE | 2023-06-03 08:31 | Hospitalist Progress Note ---
Date of Service June 03, 2023 Assessment & Plan (1) Acute GI bleeding: Plan: 82 yo F w/ type 2 diabetes, diabetic peripheral angiopathy, hyperlipidemia, hyperparathyroidism, lung nodules, heart failure with preserved ejection fraction, portal hypertension, aortic ectasia, superior mesenteric artery stenosis s/p stent, history of valvular disease, hypertension, history of CVA, history of CAD, GERD, history of pericolonic abscess, history of hepatic cirrho sis, history of GI bleed associated with intestinal diverticulosis, osteoporosis, anemia, visual field loss poststroke, history of hyponatremia presents with rectal bleed. Patient states since last night she had several episodes of small amount of rectal bleed. Also had a few episodes of vomiting but no blood in the vomiting or no black vomitus. Denies any abdominal pain. Shortly after admission pt developed hematemesis and was taken to EGD - underwent esophageal varices banding w/ GI. 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 Patient was admitted to [facility] on April 24, 2023 for GI bleed and received total of 3 units of PRBC. Was on Sandostatin, Protonix drip and Rocephin. EGD was okay except showing grade 2 esophageal varices. And she was transferred to [place] for possible mesenteric ischemia and ischemic colitis and possible need for IR intervention. GI did colonoscopy which revealed diverticulosis with old bleeding and no active bleeding and there was no evidence of recurrent ischemic colitis. Patient restarted on Plavix and discharged to follow-up with vascular surgery and metoprolol was changed to Coreg. And advised to follow with hepatology for liver cirrhosis. Patient was again admitted to [facility] on May 12, 2023 with acute GI bleeding with a mix of black and bright red blood. She was s/p 2 units of PRBC. EGD was done which was again showed grade 2 esophageal varices. Portal hypertension gastropathy. Normal examined duodenum. Hemoglobin was stabilized and she was again discharged. Patient has had a follow-up appointment with vascular surgery yesterday and plan to follow-up with repeat mesenteric ultrasounds. Acute GI bleeding Rectal bleed Hematemesis s/p EGD and banding of esophageal varices (06/01/2023) Acute blood loss anemia 2/2 GI bleed Patient had EGD twice recently which showed grade 2 esophageal varices and portal hypertensive gastropathy Recent colonoscopy showed diverticulosis Hemoglobin on admission 8.6 -> down to 6.9 on repeat. on admission Patient had small amount of rectal bleed several times. then developed hematemesis shortly after admission. Placed on gentle fluids normal saline 75 mill per hour Blood consent obtained - 1 unit of pRBC transfused on 06/01/23 (confirmed w/ blood bank) Hgb this AM 8.5 -> at noon repeated 8.8 + BMs w/ blood Cont. to monitor H&H Because of esophageal varices placed on Sandostatin drip, PPI drip and Zosyn History of ischemic colitis with SMA stent placement. In April CT scan was okay. Currently patient has no abdominal pain hold plavix. h and h q 6hrs 06/03 - no more blood in stool, no hematemesis GI consulted - s/p EGD and banding of esophageal varices (06/01/2023) Findings: Two columns of large (> 5 mm) varices with stigmata of recent bleeding were found in the lower third of the esophagus, 36 cm from the incisors. Red amalia signs were present. Four bands were successfully placed with complete eradication, resulting in deflation of varices. There was no bleeding during and at the end of the procedure. Type 1 isolated gastric varices (IGV1, varices located in the fundus) with no bleeding were found in the gastric fundus. They were small in largest diameter. Severe portal hypertensive gastropathy was found in the stomach. The duodenal bulb and second portion of the duodenum were normal. Impression: - Large (> 5 mm) esophageal varices with stigmata of recent bleeding. Banded. - IGV1, varices located in the fundus, without bleeding. - Portal hypertensive gastropathy. - Normal duodenal bulb and second portion of the duodenum. - No specimens collected. Recommendation: - Return patient to [facility] for [facility] care. - Clear liquid diet for 2 days, then advance as tolerated to full liquid diet then as tolerated. - Use a proton pump inhibitor IV for 2 days then PO BID for 3 months. - IV Octreotide for 2 days. - IV Ceftriaxone. - Avoid Alendronate. - Continue Coreg. - Need to discuss risk and benefit of continuing Plavix as she is high risk for GI bleeding. - Repeat upper endoscopy in 3 months for retreatment. COMMENT: Patient at risk of worsening portal HTN gastropathy and gastric varices in the future hence may eventually need TIPS if recurrent bleeding develops. Continue to closely monitor Elevated lactic acidosis Likely 2/2 to above Patient also has liver cirrhosis History of ischemic colitis and SMA's stent Patient currently has no abdominal pain mesenteric duplex obtained - patent sma stent and proximal sma moderate stenosis repeat lactic acid level improved to 2.1 Close monitor Fever Pt developed fever 1 AM She has been on zosyn since admission blood cultx, cxr, ua ordered broaden abx to cef+ flagyl + vanco - discussed w/ pharm JANELL Presented with cr 1.4 Holding diuretics and losartan Avoid nephrotoxic agents Follow repeat labs. History of liver cirrhosis Getting fluids and diuretic on hold Monitor for volume overload Chronic heart failure with preserved ejection fraction Holding diuretics received fluids Monitor for volume overload Diabetes Hold home medications Lantus and insulin sliding scale Glycemic pharmacy consult History of CAD Holding Plavix Continue beta-blockers and statin HTN holding Losartan and diuretic Coreq with holding parameters DVT prophylaxis SCDs Disposition Telemetry floor CODE STATUS DNR/DNI as per admitting physician's discussion with the patient. Admission and Anticipated Discharge Date Admission Date: June 01, 2023 Subjective Pt seen in follow up of GI bleed, blood per rectum, hematemesis s/p banding of esophageal varices Currently sitting up in bed, in no acute distress. However this AM spiked fever and pt felt weakness and discomfort all over her body. Now she feels well and is inquiring about advancing her diet. Family present at the bedside. Denies any abdominal pain Denies chest pain shortness of breath Had normal brown stool earlier this AM per RN Discussed w/ RN and w/ pharmacy. Blood cultz, cxr, ua. Zosyn changed to cef+ flagyl + vanco. await cultx. Monitor H&H Review of Systems Review of Systems: All systems reviewed & are unremarkable except as noted in Subjective Physical Exam Physical Exam: General- WD/WN F in NAD Head- atraumatic Eyes- PERRL. ENT- oropharynx clear Neck- supple, no JVD. Lungs- clear to auscultation no wheezing or crackles. Heart- regular rate and rhythm; no murmur, no gallop. Abdomen- normal bowel sounds, soft, nontender, no distension Extremities- no pretibial edema, no erythema seen. Neuro- alert, oriented x 3; PERRL, no facial palsy; no dysarthria; moves extremities. Skin- warm & dry Results & Data Results & Data Vital Signs (Past 12 Hours) Vital Signs Temp Pulse Pulse Resp BP Pulse Ox Pulse Ox 06/03/23 07:29 38.8 C H 98 H 18 147/63 H 90 06/03/23 07:07 88 06/03/23 06:00 92 06/03/23 03:00 36.5 C 93 H 26 H 127/50 L 93 06/02/23 23:00 36.6 C 92 H 14 167/95 H 94 06/02/23 21:15 O2 Del Method O2 Del Method O2 Flow Rate 06/03/23 07:29 Room Air 06/03/23 07:07 06/03/23 06:00 Nasal Cannula 2 06/03/23 03:00 Room Air 06/02/23 23:00 Room Air 06/02/23 21:15 Room Air Laboratory Results 06/03/23 06/03/23 06/02/23 Range/Units 08:17 06:16 23:35 WBC 13.51 H (4.8-10.8) K/ul RBC 2.89 L (4.20-5.40) M/uL Hgb 8.3 L 8.7 L (12.0-16.0) g/dl Hct 25.7 L 26.7 L (37.0-47.0) % MCV 88.9 (80.0-100.0) fL MCH 28.7 (25.0-34.0) pg MCHC 32.3 (32.0-36.0) g/dL RDW Std Deviation 53.7 H (36.4-46.3) fL RDW Coeff of Vanita 16.6 H (11.5-14.5) % Plt Count 128 L (130-400) K/uL MPV 11.3 (9.4-12.4) fL Sodium 143 (136-145) mmol/L Potassium 3.1 L (3.5-5.1) mmol/L Chloride 111 H (98-107) mmol/L Carbon Dioxide 25 (21-32) mmol/L Anion Gap 7 (3-11) BUN 29 H (6-23) mg/dl Creatinine 1.28 H (0.6-1.2) mg/dl Est Cr Clr Drug Dosing 32.7 ml/min Est GFR ( Amer) 45.1 ml/min Est GFR (Non-Af Amer) 38.9 ml/min BUN/Creatinine Ratio 22.7 H (10-20) Glucose 94 (70-99(Fasting)) mg/dl POC Glucose 153 H (70-99) mg/dl Lactate (0.4-2.0) mmol/L Calcium 7.2 L (8.6-10.3) mg/dl Phosphorus 3.7 D (2.5-4.9) mg/dl Magnesium 1.6 L (1.7-2.4) mg/dl Total Bilirubin 1.3 H (0.2-1.0) mg/dl AST 37 (13-39) U/L ALT 30 (7-52) U/L Alkaline Phosphatase 42 (34-104) U/L Total Protein 5.3 L (6.0-8.3) gm/dl Albumin 2.7 L (3.4-5.0) gm/dl Globulin 2.6 (2.5-4.0) gm/dl Albumin/Globulin Ratio 1.0 (0.9-2) Crossmatch 06/02/23 06/02/23 06/02/23 Range/Units 20:14 19:05 16:39 WBC (4.8-10.8) K/ul RBC (4.20-5.40) M/uL Hgb 7.9 L (12.0-16.0) g/dl Hct 24.3 L (37.0-47.0) % MCV (80.0-100.0) fL MCH (25.0-34.0) pg MCHC (32.0-36.0) g/dL RDW Std Deviation (36.4-46.3) fL RDW Coeff of Vanita (11.5-14.5) % Plt Count (130-400) K/uL MPV (9.4-12.4) fL Sodium (136-145) mmol/L Potassium (3.5-5.1) mmol/L Chloride (98-107) mmol/L Carbon Dioxide (21-32) mmol/L Anion Gap (3-11) BUN (6-23) mg/dl Creatinine (0.6-1.2) mg/dl Est Cr Clr Drug Dosing ml/min Est GFR ( Amer) ml/min Est GFR (Non-Af Amer) ml/min BUN/Creatinine Ratio (10-20) Glucose (70-99(Fasting)) mg/dl POC Glucose 228 H 330 H* (70-99) mg/dl Lactate (0.4-2.0) mmol/L Calcium (8.6-10.3) mg/dl Phosphorus (2.5-4.9) mg/dl Magnesium (1.7-2.4) mg/dl Total Bilirubin (0.2-1.0) mg/dl AST (13-39) U/L ALT (7-52) U/L Alkaline Phosphatase (34-104) U/L Total Protein (6.0-8.3) gm/dl Albumin (3.4-5.0) gm/dl Globulin (2.5-4.0) gm/dl Albumin/Globulin Ratio (0.9-2) Crossmatch 06/02/23 06/02/23 06/02/23 Range/Units 16:38 12:04 11:52 WBC (4.8-10.8) K/ul RBC (4.20-5.40) M/uL Hgb (12.0-16.0) g/dl Hct (37.0-47.0) % MCV (80.0-100.0) fL MCH (25.0-34.0) pg MCHC (32.0-36.0) g/dL RDW Std Deviation (36.4-46.3) fL RDW Coeff of Vanita (11.5-14.5) % Plt Count (130-400) K/uL MPV (9.4-12.4) fL Sodium (136-145) mmol/L Potassium (3.5-5.1) mmol/L Chloride (98-107) mmol/L Carbon Dioxide (21-32) mmol/L Anion Gap (3-11) BUN (6-23) mg/dl Creatinine (0.6-1.2) mg/dl Est Cr Clr Drug Dosing ml/min Est GFR ( Amer) ml/min Est GFR (Non-Af Amer) ml/min BUN/Creatinine Ratio (10-20) Glucose (70-99(Fasting)) mg/dl POC Glucose 319 H* 243 H (70-99) mg/dl Lactate 2.1 H* (0.4-2.0) mmol/L Calcium (8.6-10.3) mg/dl Phosphorus (2.5-4.9) mg/dl Magnesium (1.7-2.4) mg/dl Total Bilirubin (0.2-1.0) mg/dl AST (13-39) U/L ALT (7-52) U/L Alkaline Phosphatase (34-104) U/L Total Protein (6.0-8.3) gm/dl Albumin (3.4-5.0) gm/dl Globulin (2.5-4.0) gm/dl Albumin/Globulin Ratio (0.9-2) Crossmatch 06/02/23 06/02/23 06/01/23 Range/Units 11:46 10:46 02:54 WBC (4.8-10.8) K/ul RBC (4.20-5.40) M/uL Hgb 8.8 L (12.0-16.0) g/dl Hct 26.5 L (37.0-47.0) % MCV (80.0-100.0) fL MCH (25.0-34.0) pg MCHC (32.0-36.0) g/dL RDW Std Deviation (36.4-46.3) fL RDW Coeff of Vanita (11.5-14.5) % Plt Count (130-400) K/uL MPV (9.4-12.4) fL Sodium (136-145) mmol/L Potassium (3.5-5.1) mmol/L Chloride (98-107) mmol/L Carbon Dioxide (21-32) mmol/L Anion Gap (3-11) BUN 38 H (6-23) mg/dl Creatinine 1.37 H (0.6-1.2) mg/dl Est Cr Clr Drug Dosing 30.3 ml/min Est GFR ( Amer) 41.5 ml/min Est GFR (Non-Af Amer) 35.8 ml/min BUN/Creatinine Ratio 27.7 H (10-20) Glucose (70-99(Fasting)) mg/dl POC Glucose 218 H (70-99) mg/dl Lactate (0.4-2.0) mmol/L Calcium (8.6-10.3) mg/dl Phosphorus (2.5-4.9) mg/dl Magnesium (1.7-2.4) mg/dl Total Bilirubin (0.2-1.0) mg/dl AST (13-39) U/L ALT (7-52) U/L Alkaline Phosphatase (34-104) U/L Total Protein (6.0-8.3) gm/dl Albumin (3.4-5.0) gm/dl Globulin (2.5-4.0) gm/dl Albumin/Globulin Ratio (0.9-2) Crossmatch See Detail Medications Administered Current Inpatient Medications Ascorbic Acid (Ascorbic Acid 500 Mg Tab) 500 mg PO DAILY [facility] Stop: 07/01/23 08:59 Last Admin: 06/02/23 10:33 Dose: 500 mg Atorvastatin Calcium (Atorvastatin 40 Mg Tab) 40 mg PO DAILY [facility] Stop: 07/01/23 08:59 Last Admin: 06/02/23 10:33 Dose: 40 mg Carvedilol (Carvedilol 3.125 Mg Tab) 3.125 mg PO BID [facility] Stop: 07/01/23 08:59 Last Admin: 06/02/23 22:05 Dose: 3.125 mg Cinacalcet (Cinacalcet Hcl 30 Mg Tab) 30 mg PO DAILY [facility] Stop: 07/01/23 08:59 Last Admin: 06/02/23 10:51 Dose: 30 mg Dextrose (Dextrose 50% 50 Ml Syringe) 25 - 50 ml IV UD PRN; Protocol PRN Reason: Hypoglycemia Protocol Stop: 07/01/23 06:41 Glucagon (Glucagon For Inj 1 Mg Vial) 1 mg SQ UD PRN; Protocol PRN Reason: Hypoglycemia Protocol Stop: 07/01/23 06:41 Glucose (Glucose 10 Tab/Tube) 4 - 8 tab PO UD PRN; Protocol PRN Reason: Hypoglycemia Treatment Stop: 07/01/23 06:41 Glucose (Glucose 40% Gel 15 Gm Tube) 15 - 30 gm PO UD PRN; Protocol PRN Reason: Hypoglycemia Protocol Stop: 07/01/23 06:41 Pantoprazole Sodium 40 mg/ (Dextrose) 100 mls @ 20 mls/hr IV Q5H [facility] Stop: 07/01/23 06:59 Last Admin: 06/03/23 06:11 Dose: 8 mg/hr, 20 mls/hr Piperacillin Sod/Tazobactam (Sod 4.5 gm/ Dextrose) 100 mls @ 25 mls/hr IV Q8H [facility]; Protocol Stop: 06/11/23 13:59 Last Admin: 06/03/23 06:09 Dose: 25 mls/hr Octreotide Acetate 500 mcg/ (Sodium Chloride) 105 mls @ 10.5 mls/hr IV .Q10H [facility] Stop: 07/01/23 06:59 Last Admin: 06/02/23 22:51 Dose: 50 mcg/hr, 10.5 mls/hr Vancomycin HCl 1,000 mg/ (Sodium Chloride) 270 mls @ 200 mls/hr IV NOW STA; Protocol Stop: 06/03/23 09:47 Insulin Aspart (Insulin Aspart Per Unit Charge) 0 units SC ACHS [facility] Stop: 07/01/23 07:29 Last Admin: 06/02/23 22:05 Dose: 3 units Insulin Glargine (Lantus Per Unit Charge) 16 units SC QAM [facility] Stop: 07/01/23 08:59 Last Admin: 06/02/23 10:51 Dose: 16 units Insulin Glargine (Lantus Per Unit Charge) 4 units SC HS [facility] Stop: 07/02/23 20:59 Last Admin: 06/02/23 22:07 Dose: 4 units Magnesium Oxide (Magnesium Oxide 400 Mg Tab) 400 mg PO DAILY [facility] Stop: 07/01/23 08:59 Last Admin: 06/02/23 10:33 Dose: 400 mg Melatonin (Melatonin 3 Mg Tab) 9 mg PO HSZ PRN PRN Reason: Insomnia Stop: 07/01/23 07:20 Miscellaneous (Carbohydrates For Hypoglycemia ) 15 - 30 gm PO UD PRN PRN Reason: Hypoglycemia Protocol Stop: 07/01/23 06:41 Miscellaneous Information (Pharmacy Glycemic Mgmt Consult) 1 each N/A UD PRN PRN Reason: Consult Stop: 07/01/23 06:41 Miscellaneous Information (Vancomycin Consult Active) 1 each N/A UD PRN PRN Reason: Consult Stop: 07/03/23 08:26 Multivitamins/Minerals (Cerovite Adv Formula Tab) 1 tab PO DAILY [facility] Stop: 07/01/23 08:59 Last Admin: 06/02/23 10:33 Dose: 1 tab Nitroglycerin (Nitroglycerin Sl 0.4 Mg/Tab Tab) 0.4 mg SL Q5M PRN PRN Reason: Chest Pain Stop: 07/01/23 06:41 Ondansetron HCl (Ondansetron Inj 2 Mg/Ml 2 Ml Vial) 4 mg IV Q6H PRN PRN Reason: Nausea Stop: 07/01/23 06:41 Vitamin B Complex (Vitamin B Complex Tab) 1 tab PO DAILY [facility] Stop: 07/01/23 08:59 Last Admin: 06/02/23 10:33 Dose: 1 tab
[2023-06-03] MEDS: INSULIN ASPART PER UNIT CHARGE SC SCH ×4 (08:34→21:23)
[2023-06-03] MEDS: LANTUS PER UNIT CHARGE SC SCH (08:35)
[2023-06-03] MEDS ORDERED: ACETAMINOPHEN 1,000 MG/100 ML VIAL IV STA (08:43)
--- NOTE | 2023-06-03 08:43 | XRay Report ---
XR chest 1V portable HISTORY: fever COMPARISON: Chest 06/01/2023. FINDINGS: No pneumothorax. No pleural effusions. The heart remains mildly enlarged. Chronic interstit ial thickening persists. No new focal lung consolidations to suggest a pneumonia. No evidence for pul monary edema. There are calcifications within the aortic knob. No acute fractures identified. IMPRESSION: Stable cardiomegaly. Otherwise, no acute process within the chest. ACT 112: Negative or not required by law. Electronically signed by: Pee Parker M.D. 06/03/2023 8:42 AM
[2023-06-03] MEDS ORDERED: VANCOMYCIN HCL 1,500 MG in SODIUM CHLORIDE 0.9% 500 ML IV STA (08:45)
[2023-06-03] MEDS: ATORVASTATIN 40 MG TAB PO SCH (08:54)
[2023-06-03] MEDS: CEROVITE ADV FORMULA TAB PO SCH (08:54)
[2023-06-03] MEDS: carvediloL 3.125 MG TAB PO SCH ×2 (08:54→21:21)
[2023-06-03] MEDS: MAGNESIUM OXIDE 400 MG TAB PO SCH (08:54)
[2023-06-03] MEDS: CINACALCET HCL 30 MG TAB PO SCH (08:54)
[2023-06-03] MEDS: ASCORBIC ACID 500 MG TAB PO SCH (08:54)
[2023-06-03] MEDS: VITAMIN B COMPLEX TAB PO SCH (08:54)
[2023-06-03] MEDS: OCTREOTIDE ACETATE 500 MCG in 0.9 % SODIUM CHLORIDE 100 ML IV SCH ×2 (10:00→21:05)
--- NOTE | 2023-06-03 11:33 | Pharmacy Report ---
Pharmacy PK ABX Note - Date of Service June 03, 2023 - Assessment and Plan Assessment * 82 year old F receiving ceftriaxone, metronidazole, and vancomycin for treatment of ?GI infection, ?SBP coverage given esophageal varicies w GIB and cirrhosis. * Pertinent microbiologic data includes: remote history of E. faecium (non-VRE) Plan Vancomycin * Loading dose: 1500 mg IV x 1 * Maintenance dose: 750 mg IV every 24 hours * Regimen is predicted to achieve target AUC/SMITHA of 400-600 mg/L.hr * Random level ordered for 06/05 AM Pharmacy will continue to follow and will adjust dose/frequency as necessary. Thank you. Pharmacy has transitioned to AUC monitoring for vancomycin. AUC/SMITHA is the preferred PK/PD target and is associated with decreased risk of nephrotoxicity compared to traditional trough targets.
[2023-06-03] MEDS: cefTRIAXone SODIUM 2,000 MG in DEXTROSE 5 % MINI-B 50 ML IV SCH (12:55)
[2023-06-03] MEDS: metroNIDAZOLE 500 MG/100 ML BAG IV SCH ×2 (12:55→21:07)
[2023-06-03 15:32] LABS: Hematocrit (blood only) 22.5 % (37.0-47.0); Hemoglobin 7.1 g/dl (12.0-16.0)
[2023-06-03] MEDS ORDERED: LANTUS PER UNIT CHARGE SC SCH (21:00)
[2023-06-03 22:10] LABS: Hematocrit (blood only) 23.1 % (37.0-47.0); Hemoglobin 7.7 g/dl (12.0-16.0)
[2023-06-04] MEDS: PANTOprazole 40 MG in DEXTROSE 5% MINI-B 100 ML IV SCH ×3 (03:28→13:34)
[2023-06-04] MEDS: metroNIDAZOLE 500 MG/100 ML BAG IV SCH ×3 (03:34→20:23)
[2023-06-04] MEDS: OCTREOTIDE ACETATE 500 MCG in 0.9 % SODIUM CHLORIDE 100 ML IV SCH (07:02)
--- NOTE | 2023-06-04 07:35 | Hospitalist Progress Note ---
Date of Service June 04, 2023 Assessment & Plan (1) Acute GI bleeding: Plan: 82 yo F w/ type 2 diabetes, diabetic peripheral angiopathy, hyperlipidemia, hyperparathyroidism, lung nodules, heart failure with preserved ejection fraction, portal hypertension, aortic ectasia, superior mesenteric artery stenosis s/p stent, history of valvular disease, hypertension, history of CVA, history of CAD, GERD, history of pericolonic abscess, history of hepatic cirrho sis, history of GI bleed associated with intestinal diverticulosis, osteoporosis, anemia, visual field loss poststroke, history of hyponatremia presents with rectal bleed. Patient states since last night she had several episodes of small amount of rectal bleed. Also had a few episodes of vomiting but no blood in the vomiting or no black vomitus. Denies any abdominal pain. Shortly after admission pt developed hematemesis and was taken to EGD - underwent esophageal varices banding w/ GI. 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 Patient was admitted to [facility] on April 24, 2023 for GI bleed and received total of 3 units of PRBC. Was on Sandostatin, Protonix drip and Rocephin. EGD was okay except showing grade 2 esophageal varices. And she was transferred to [place] for possible mesenteric ischemia and ischemic colitis and possible need for IR intervention. GI did colonoscopy which revealed diverticulosis with old bleeding and no active bleeding and there was no evidence of recurrent ischemic colitis. Patient restarted on Plavix and discharged to follow-up with vascular surgery and metoprolol was changed to Coreg. And advised to follow with hepatology for liver cirrhosis. Patient was again admitted to [facility] on May 12, 2023 with acute GI bleeding with a mix of black and bright red blood. She was s/p 2 units of PRBC. EGD was done which was again showed grade 2 esophageal varices. Portal hypertension gastropathy. Normal examined duodenum. Hemoglobin was stabilized and she was again discharged. Patient has had a follow-up appointment with vascular surgery yesterday and plan to follow-up with repeat mesenteric ultrasounds. Acute GI bleeding Rectal bleed Hematemesis s/p EGD and banding of esophageal varices (06/01/2023) Acute blood loss anemia 2/2 GI bleed Patient had EGD twice recently which showed grade 2 esophageal varices and portal hypertensive gastropathy Recent colonoscopy showed diverticulosis Hemoglobin on admission 8.6 -> down to 6.9 on repeat. on admission Patient had small amount of rectal bleed several times. then developed hematemesis shortly after admission. Placed on gentle fluids normal saline 75 mill per hour Blood consent obtained - 1 unit of pRBC transfused on 06/01/23 (confirmed w/ blood bank) Hgb this AM 8.5 -> at noon repeated 8.8 + BMs w/ blood Cont. to monitor H&H Because of esophageal varices placed on Sandostatin drip, PPI drip and Zosyn History of ischemic colitis with SMA stent placement. In April CT scan was okay. Currently patient has no abdominal pain hold plavix. h and h q 6hrs 06/03 - no more blood in stool, no hematemesis 06/04 - no blood in stool per RN Hgb 6.7 - 1 unit of pRBC ordered GI consulted - s/p EGD and banding of esophageal varices (06/01/2023) Findings: Two columns of large (> 5 mm) varices with stigmata of recent bleeding were found in the lower third of the esophagus, 36 cm from the incisors. Red amalia signs were present. Four bands were successfully placed with complete eradication, resulting in deflation of varices. There was no bleeding during and at the end of the procedure. Type 1 isolated gastric varices (IGV1, varices located in the fundus) with no bleeding were found in the gastric fundus. They were small in largest diameter. Severe portal hypertensive gastropathy was found in the stomach. The duodenal bulb and second portion of the duodenum were normal. Impression: - Large (> 5 mm) esophageal varices with stigmata of recent bleeding. Banded. - IGV1, varices located in the fundus, without bleeding. - Portal hypertensive gastropathy. - Normal duodenal bulb and second portion of the duodenum. - No specimens collected. Recommendation: - Return patient to [facility] for ongoing care. - Clear liquid diet for 2 days, then advance as tolerated to full liquid diet then as tolerated. - Use a proton pump inhibitor IV for 2 days then PO BID for 3 months. - IV Octreotide for 2 days. - IV Ceftriaxone. - Avoid Alendronate. - Continue Coreg. - Need to discuss risk and benefit of continuing Plavix as she is high risk for GI bleeding. - Repeat upper endoscopy in 3 months for retreatment. COMMENT: Patient at risk of worsening portal HTN gastropathy and gastric varices in the future hence may eventually need TIPS if recurrent bleeding develops. Continue to closely monitor Elevated lactic acidosis Likely 2/2 to above Patient also has liver cirrhosis History of ischemic colitis and SMA's stent Patient currently has no abdominal pain mesenteric duplex obtained - patent sma stent and proximal sma moderate stenosis repeat lactic acid level improved to 2.1 Close monitor Fever Pt developed fever 1 AM She has been on zosyn since admission blood cultx, cxr, ua obtained, cxr - negat. UA negat. blood cultx - pending broaden abx to cef + flagyl + vanco - discussed w/ pharm JANELL Presented with cr 1.4 Holding diuretics and losartan Avoid nephrotoxic agents Follow repeat labs. current Cr 1.2 History of liver cirrhosis Received fluids and diuretic on hold Monitor for volume overload Chronic heart failure with preserved ejection fraction Holding diuretics received fluids Monitor for volume overload Diabetes Hold home medications Lantus and insulin sliding scale Glycemic pharmacy consult History of CAD Holding Plavix Continue beta-blockers and statin HTN holding Losartan and diuretic cont. Coreq DVT prophylaxis SCDs Disposition Telemetry floor CODE STATUS DNR/DNI as per admitting physician's discussion with the patient. Admission and Anticipated Discharge Date Admission Date: June 01, 2023 Subjective Pt seen in follow up of GI bleed, blood per rectum, hematemesis s/p banding of esophageal varices Yesterday developed fever, abx changed. Afebrile since yesterday AM. Per RN no blood in stool. However Hgb 6.7 this AM. 1 unit of pRBC given. Cont. to monitor H&H. Pt is currently sitting up in chair, in NAD. RN at the bedside. Pt anxious about being in the hospital, will allow a fam. member to stay over night. Denies any abdominal pain Denies chest pain shortness of breath Review of Systems Review of Systems: All systems reviewed & are unremarkable except as noted in Subjective Physical Exam Physical Exam: General- WD/WN F in NAD Head- atraumatic Eyes- PERRL. ENT- oropharynx clear Neck- supple, no JVD. Lungs- clear to auscultation no wheezing or crackles. Heart- regular rate and rhythm; no murmur, no gallop. Abdomen- normal bowel sounds, soft, nontender, no distension Extremities- no pretibial edema, no erythema seen. Neuro- alert, oriented x 3; PERRL, no facial palsy; no dysarthria; moves extremities. Skin- warm & dry Results & Data Results & Data Vital Signs (Past 12 Hours) Vital Signs Temp Pulse Pulse Resp BP Pulse Ox Pulse Ox 06/04/23 07:12 36.8 C 76 18 120/94 94 06/04/23 06:00 96 06/04/23 04:00 36.6 C 72 18 126/48 L 96 06/04/23 00:34 71 06/03/23 23:19 36.6 C 71 18 108/45 L 95 06/03/23 20:15 O2 Del Method O2 Del Method 06/04/23 07:12 Room Air 06/04/23 06:00 Room Air 06/04/23 04:00 Room Air 06/04/23 00:34 06/03/23 23:19 Room Air 06/03/23 20:15 Room Air Laboratory Results 06/04/23 06/04/23 06/04/23 Range/Units 10:58 08:11 07:09 WBC (4.8-10.8) K/ul RBC (4.20-5.40) M/uL Hgb (12.0-16.0) g/dl Hct (37.0-47.0) % MCV (80.0-100.0) fL MCH (25.0-34.0) pg MCHC (32.0-36.0) g/dL RDW Std Deviation (36.4-46.3) fL RDW Coeff of Vanita (11.5-14.5) % Plt Count (130-400) K/uL MPV (9.4-12.4) fL Platelet Estimate (Normal) Sodium (136-145) mmol/L Potassium (3.5-5.1) mmol/L Chloride (98-107) mmol/L Carbon Dioxide (21-32) mmol/L Anion Gap (3-11) BUN (6-23) mg/dl Creatinine (0.6-1.2) mg/dl Est Cr Clr Drug Dosing ml/min Est GFR ( Amer) ml/min Est GFR (Non-Af Amer) ml/min BUN/Creatinine Ratio (10-20) Glucose (70-99(Fasting)) mg/dl POC Glucose 139 H 77 (70-99) mg/dl Calcium (8.6-10.3) mg/dl Phosphorus (2.5-4.9) mg/dl Magnesium (1.7-2.4) mg/dl Total Bilirubin (0.2-1.0) mg/dl AST (13-39) U/L ALT (7-52) U/L Alkaline Phosphatase (34-104) U/L Total Protein (6.0-8.3) gm/dl Albumin (3.4-5.0) gm/dl Globulin (2.5-4.0) gm/dl Albumin/Globulin Ratio (0.9-2) Blood Type A Positive Antibody Screen NEGATIVE Crossmatch See Detail 06/04/23 06/03/23 06/03/23 Range/Units 06:28 21:39 21:20 WBC 4.58 L (4.8-10.8) K/ul RBC 2.35 L (4.20-5.40) M/uL Hgb 6.7 L* 7.7 L (12.0-16.0) g/dl Hct 21.4 L 23.1 L (37.0-47.0) % MCV 91.1 (80.0-100.0) fL MCH 28.5 (25.0-34.0) pg MCHC 31.3 L (32.0-36.0) g/dL RDW Std Deviation 54.1 H (36.4-46.3) fL RDW Coeff of Vanita 16.4 H (11.5-14.5) % Plt Count 95 L (130-400) K/uL MPV 11.1 (9.4-12.4) fL Platelet Estimate Decreased L (Normal) Sodium 141 (136-145) mmol/L Potassium 3.5 (3.5-5.1) mmol/L Chloride 112 H (98-107) mmol/L Carbon Dioxide 23 (21-32) mmol/L Anion Gap 6 (3-11) BUN 20 (6-23) mg/dl Creatinine 1.20 (0.6-1.2) mg/dl Est Cr Clr Drug Dosing 35.4 ml/min Est GFR ( Amer) 48.7 ml/min Est GFR (Non-Af Amer) 42.1 ml/min BUN/Creatinine Ratio 16.7 (10-20) Glucose 75 (70-99(Fasting)) mg/dl POC Glucose 106 H (70-99) mg/dl Calcium 6.9 L (8.6-10.3) mg/dl Phosphorus 3.8 (2.5-4.9) mg/dl Magnesium 1.6 L (1.7-2.4) mg/dl Total Bilirubin 1.1 H (0.2-1.0) mg/dl AST 35 (13-39) U/L ALT 27 (7-52) U/L Alkaline Phosphatase 39 (34-104) U/L Total Protein 4.8 L (6.0-8.3) gm/dl Albumin 2.5 L (3.4-5.0) gm/dl Globulin 2.3 L (2.5-4.0) gm/dl Albumin/Globulin Ratio 1.1 (0.9-2) Blood Type Antibody Screen Crossmatch 06/03/23 06/03/23 06/01/23 Range/Units 16:29 14:51 02:54 WBC (4.8-10.8) K/ul RBC (4.20-5.40) M/uL Hgb 7.1 L (12.0-16.0) g/dl Hct 22.5 L (37.0-47.0) % MCV (80.0-100.0) fL MCH (25.0-34.0) pg MCHC (32.0-36.0) g/dL RDW Std Deviation (36.4-46.3) fL RDW Coeff of Vanita (11.5-14.5) % Plt Count (130-400) K/uL MPV (9.4-12.4) fL Platelet Estimate (Normal) Sodium (136-145) mmol/L Potassium (3.5-5.1) mmol/L Chloride (98-107) mmol/L Carbon Dioxide (21-32) mmol/L Anion Gap (3-11) BUN (6-23) mg/dl Creatinine (0.6-1.2) mg/dl Est Cr Clr Drug Dosing ml/min Est GFR ( Amer) ml/min Est GFR (Non-Af Amer) ml/min BUN/Creatinine Ratio (10-20) Glucose (70-99(Fasting)) mg/dl POC Glucose 165 H (70-99) mg/dl Calcium (8.6-10.3) mg/dl Phosphorus (2.5-4.9) mg/dl Magnesium (1.7-2.4) mg/dl Total Bilirubin (0.2-1.0) mg/dl AST (13-39) U/L ALT (7-52) U/L Alkaline Phosphatase (34-104) U/L Total Protein (6.0-8.3) gm/dl Albumin (3.4-5.0) gm/dl Globulin (2.5-4.0) gm/dl Albumin/Globulin Ratio (0.9-2) Blood Type Antibody Screen Crossmatch See Detail Medications Administered Current Inpatient Medications Ascorbic Acid (Ascorbic Acid 500 Mg Tab) 500 mg PO DAILY [facility] Stop: 07/01/23 08:59 Last Admin: 06/03/23 08:54 Dose: 500 mg Atorvastatin Calcium (Atorvastatin 40 Mg Tab) 40 mg PO DAILY [facility] Stop: 07/01/23 08:59 Last Admin: 06/03/23 08:54 Dose: 40 mg Carvedilol (Carvedilol 3.125 Mg Tab) 3.125 mg PO BID [facility] Stop: 07/01/23 08:59 Last Admin: 06/03/23 21:21 Dose: 3.125 mg Cinacalcet (Cinacalcet Hcl 30 Mg Tab) 30 mg PO DAILY [facility] Stop: 07/01/23 08:59 Last Admin: 06/03/23 08:54 Dose: 30 mg Dextrose (Dextrose 50% 50 Ml Syringe) 25 - 50 ml IV UD PRN; Protocol PRN Reason: Hypoglycemia Protocol Stop: 07/01/23 06:41 Glucagon (Glucagon For Inj 1 Mg Vial) 1 mg SQ UD PRN; Protocol PRN Reason: Hypoglycemia Protocol Stop: 07/01/23 06:41 Glucose (Glucose 10 Tab/Tube) 4 - 8 tab PO UD PRN; Protocol PRN Reason: Hypoglycemia Treatment Stop: 07/01/23 06:41 Glucose (Glucose 40% Gel 15 Gm Tube) 15 - 30 gm PO UD PRN; Protocol PRN Reason: Hypoglycemia Protocol Stop: 07/01/23 06:41 Pantoprazole Sodium 40 mg/ (Dextrose) 100 mls @ 20 mls/hr IV Q5H [facility] Stop: 07/01/23 06:59 Last Admin: 06/04/23 03:28 Dose: 8 mg/hr, 20 mls/hr Ceftriaxone Sodium 2,000 mg/ (Dextrose) 50 mls @ 100 mls/hr IV Q24H [facility] Stop: 06/13/23 11:59 Last Infusion: 06/03/23 13:30 Dose: Infused Metronidazole (Flagyl) 500 mg in 100 mls @ 100 mls/hr IV Q8H [facility] Stop: 06/13/23 11:59 Last Infusion: 06/04/23 04:56 Dose: Infused Vancomycin HCl 750 mg/ Sodium (Chloride) 265 mls @ 200 mls/hr IV Q24H [facility] Stop: 06/14/23 07:59 Octreotide Acetate 500 mcg/ (Sodium Chloride) 100.5 mls @ 10.05 mls/hr IV .Q10H [facility] Stop: 07/03/23 18:59 Last Admin: 06/04/23 07:02 Dose: 50 mcg/hr, 10.1 mls/hr Insulin Aspart (Insulin Aspart Per Unit Charge) 0 units SC ACHS [facility] Stop: 07/01/23 07:29 Last Admin: 06/03/23 21:23 Dose: Not Given Insulin Glargine (Lantus Per Unit Charge) 12 units SC QAM [facility] Stop: 07/04/23 08:59 Magnesium Oxide (Magnesium Oxide 400 Mg Tab) 400 mg PO DAILY [facility] Stop: 07/01/23 08:59 Last Admin: 06/03/23 08:54 Dose: 400 mg Melatonin (Melatonin 3 Mg Tab) 9 mg PO HSZ PRN PRN Reason: Insomnia Stop: 07/01/23 07:20 Miscellaneous (Carbohydrates For Hypoglycemia ) 15 - 30 gm PO UD PRN PRN Reason: Hypoglycemia Protocol Stop: 07/01/23 06:41 Miscellaneous Information (Pharmacy Glycemic Mgmt Consult) 1 each N/A UD PRN PRN Reason: Consult Stop: 07/01/23 06:41 Miscellaneous Information (Vancomycin Consult Active) 1 each N/A UD PRN PRN Reason: Consult Stop: 07/03/23 08:26 Multivitamins/Minerals (Cerovite Adv Formula Tab) 1 tab PO DAILY [facility] Stop: 07/01/23 08:59 Last Admin: 06/03/23 08:54 Dose: 1 tab Nitroglycerin (Nitroglycerin Sl 0.4 Mg/Tab Tab) 0.4 mg SL Q5M PRN PRN Reason: Chest Pain Stop: 07/01/23 06:41 Ondansetron HCl (Ondansetron Inj 2 Mg/Ml 2 Ml Vial) 4 mg IV Q6H PRN PRN Reason: Nausea Stop: 07/01/23 06:41 Vitamin B Complex (Vitamin B Complex Tab) 1 tab PO DAILY [facility] Stop: 07/01/23 08:59 Last Admin: 06/03/23 08:54 Dose: 1 tab
[2023-06-04 07:56] LABS: Albumin Globulin Ratio 1.1 (0.9-2); Albumin Level 2.5 gm/dl (3.4-5.0); BUN Creatinine Ratio 16.7 (10-20); Bilirubin,Total 1.1 mg/dl (0.2-1.0); Calcium 6.9 mg/dl (8.6-10.3); Creatinine Clr Calc Pharmacy 35.4 ml/min; Est GFR (African American) 48.7 ml/min; Est GFR (Non-African American) 42.1 ml/min; Globulin 2.3 gm/dl (2.5-4.0); Hematocrit (blood only) 21.4 % (37.0-47.0); Hemoglobin 6.7 g/dl (12.0-16.0); Magnesium 1.6 mg/dl (1.7-2.4); Mean Corpuscular Hemoglobin 28.5 pg (25.0-34.0); Mean Corpuscular Hgb Conc 31.3 g/dL (32.0-36.0); Mean Corpuscular Volume 91.1 fL (80.0-100.0); Phosphorus 3.8 mg/dl (2.5-4.9); Potassium 3.5 mmol/L (3.5-5.1); RDW Coefficient of Variation 16.4 % (11.5-14.5); RDW Standard Deviation 54.1 fL (36.4-46.3); Red Blood Count 2.35 M/uL (4.20-5.40); Total Protein 4.8 gm/dl (6.0-8.3); White Blood Count 4.58 K/ul (4.8-10.8)
[2023-06-04] MEDS ORDERED: VANCOMYCIN HCL 750 MG in SODIUM CHLORIDE 0.9% 250 ML IV SCH (08:00)
[2023-06-04] MEDS ORDERED: SODIUM CHLORIDE 0.9% 250 ML IV PRN (08:01)
[2023-06-04] MEDS: INSULIN ASPART PER UNIT CHARGE SC SCH ×4 (08:24→20:29)
[2023-06-04 08:39] LABS: Mean Platelet Volume 11.1 fL (9.4-12.4); Platelet Count 95 K/uL (130-400); Platelet Estimate Decreased (Normal)
[2023-06-04] MEDS: CINACALCET HCL 30 MG TAB PO SCH (08:43)
[2023-06-04] MEDS: VITAMIN B COMPLEX TAB PO SCH (08:43)
[2023-06-04] MEDS: CEROVITE ADV FORMULA TAB PO SCH (08:43)
[2023-06-04] MEDS: carvediloL 3.125 MG TAB PO SCH ×2 (08:43→20:24)
[2023-06-04] MEDS: ASCORBIC ACID 500 MG TAB PO SCH (08:43)
[2023-06-04] MEDS: MAGNESIUM OXIDE 400 MG TAB PO SCH (08:43)
[2023-06-04] MEDS: ATORVASTATIN 40 MG TAB PO SCH (08:43)
[2023-06-04] MEDS ORDERED: LANTUS PER UNIT CHARGE SC SCH ×3 (09:00→21:00)
--- NOTE | 2023-06-04 11:15 | Pharmacy Report ---
Pharmacy Glycemic Short Note 2 - Date of Service June 04, 2023 - Glycemic Short BSG Results (Last 24 hours): 06/03/23 06/03/23 06/03/23 12:53 16:29 21:20 Glucose POC Glucose 260 H 165 H 106 H 06/04/23 06/04/23 06/04/23 06:28 07:09 10:58 Glucose 75 POC Glucose 77 139 H OUTPATIENT ANTIDIABETIC REGIMEN: * Novolin 70/30 25 units w/ breakfast, 10 units with supper; metformin 1000 mg BIDM * A1c 7.4% 04/25/23 ASSESSMENT: 06/04: * Patient received total of 29 units of insulin yesterday, of which 16 units were basal insulin * Fasting BSG 77 mg/dL - plan to scale back ~40% this AM with basal as dose just decreased yesterday. Patient however refused basal this AM. Discussed with RN and patient feeling depressed and not eating much * Lunch BSG stable despite refusal of basal insulin. May consider very conservative scale for basal at HS time in case BSGs trending upward 06/02: * Continues on protonix + octreotide infusion * Lantus ordered for this morning not given until 11. Fasting this AM 182 mg/dL- will titrate basal up * Noon BSG elevated, tightened correction factor. Diet has been ordered. Monitor 06/01 * Patient admitted with GI Bleed, started on protonix + octreotide gtt. * NPO, received 12 units of lantus this morning; ~30 % reduction from home dose for AM dose; Will put scale for PM to receive possible additional 5 units * Started novolog similar to weight based stress of 2/ total daily insulin stress of 2. Will monitor. PLAN FOR INPATIENT GLYCEMIC CONTROL: * Hold outpatient oral diabetes medications * Basal insulin * Lantus 5-8 units HS depending on BSG value * Bolus insulin * NovoLog per scale ACHS or Q6hrs while NPO * Goal Range: Low 110 mg/dL - High 140 mg/dL * Correction Factor: 30 mg/dL/unit * Nutritional / Prandial insulin per carb ratio of 1 unit per 11 grams CHO consumed
[2023-06-04] MEDS: cefTRIAXone SODIUM 2,000 MG in DEXTROSE 5 % MINI-B 50 ML IV SCH (13:28)
[2023-06-04 18:02] LABS: Hematocrit (blood only) 29.6 % (37.0-47.0); Hemoglobin 9.5 g/dl (12.0-16.0)
[2023-06-04 18:31] LABS: Appearance Urine Clear (Clear); Bacteria Urine Automated Negative (Negative); Bilirubin Urine Negative (Negative); Blood Urine Negative (Negative); Color Urine Yellow; Epithelial Cell Urine Auto 20-30 /lpf (0-5); Glucose Urine UA Negative (Negative); Ketones Urine Negative (Negative); Leukocyte Esterase Urine 2+ (Negative); Nitrite Urine Negative (Negative); Protein Urine Negative (Negative); RBC Urine Automated 0-4 /hpf (0-4); Specific Gravity Urine 1.007 (1.000-1.030); Urobilinogen Urine Negative (Negative)
[2023-06-04] MEDS: PANTOprazole 40 MG TAB PO SCH (20:24)
[2023-06-05] MEDS: metroNIDAZOLE 500 MG/100 ML BAG IV SCH (04:26)
[2023-06-05 05:45] LABS: Hematocrit (blood only) 26.6 % (37.0-47.0); Hemoglobin 8.6 g/dl (12.0-16.0); Mean Corpuscular Hgb Conc 32.3 g/dL (32.0-36.0); Mean Corpuscular Volume 89.6 fL (80.0-100.0); Mean Platelet Volume 10.3 fL (9.4-12.4); Platelet Count 98 K/uL (130-400); RDW Coefficient of Variation 16.3 % (11.5-14.5); Red Blood Count 2.97 M/uL (4.20-5.40); White Blood Count 4.37 K/ul (4.8-10.8)
[2023-06-05 06:03] LABS: BUN Creatinine Ratio 12.8 (10-20); Calcium 6.4 mg/dl (8.6-10.3); Creatinine Clr Calc Pharmacy 38.9 ml/min; Est GFR (African American) 54.7 ml/min; Est GFR (Non-African American) 47.2 ml/min; Magnesium 1.5 mg/dl (1.7-2.4); Phosphorus 3.8 mg/dl (2.5-4.9); Potassium 3.5 mmol/L (3.5-5.1)
[2023-06-05] MEDS ORDERED: VANCOMYCIN LEVEL ONE (07:30)
[2023-06-05] MEDS: INSULIN ASPART PER UNIT CHARGE SC SCH ×4 (07:41→21:05)
[2023-06-05] MEDS ORDERED: MAGNESIUM SULFATE / D5W 1 GM/100 ML BAG IV ONE (08:29)
[2023-06-05] MEDS ORDERED: POTASSIUM CHLORIDE PWD 20 MEQ PACK PO ONE (08:30)
--- NOTE | 2023-06-05 09:04 | Pharmacy Report ---
Pharmacy PK ABX Note - Date of Service June 05, 2023 - Assessment and Plan Assessment 06/05: Continues on vancomycin, ceftriaxone and flagyl. 06/03 blood cultures NGTD. SCr down-trending to 1.09mg/dL today. * Day #3 vancomycin 06/03: * 82 year old F receiving ceftriaxone, metronidazole, and vancomycin for treatment of ?GI infection, ?SBP coverage given esophageal varicies w GIB and cirrhosis. * Pertinent microbiologic data includes: remote history of E. faecium (non-VRE) Plan Vancomycin * Current regimen: vancomycin 750mg IV q24h * Random level this AM, 8.6mcg/mL (~21hr level) predicted to achieve ssAUC 373mg/L.hr- subtherapeutic. * Increase maintenance dose to 1gm IV q24h -predicted to achieve target AUC/SMITHA of 400-600 mg/L.hr * Repeat level in ~ 48h hours if vancomycin continued Pharmacy will continue to follow and will adjust dose/frequency as necessary. Thank you. Pharmacy has transitioned to AUC monitoring for vancomycin. AUC/SMITHA is the preferred PK/PD target and is associated with decreased risk of nephrotoxicity compared to traditional trough targets.
[2023-06-05] MEDS: PANTOprazole 40 MG TAB PO SCH ×2 (09:46→22:37)
[2023-06-05] MEDS: VITAMIN B COMPLEX TAB PO SCH (09:46)
[2023-06-05] MEDS: MAGNESIUM OXIDE 400 MG TAB PO SCH (09:46)
[2023-06-05] MEDS: CINACALCET HCL 30 MG TAB PO SCH (09:46)
[2023-06-05] MEDS: ATORVASTATIN 40 MG TAB PO SCH (09:46)
[2023-06-05] MEDS: CEROVITE ADV FORMULA TAB PO SCH (09:46)
[2023-06-05] MEDS: carvediloL 3.125 MG TAB PO SCH ×2 (09:46→21:08)
[2023-06-05] MEDS: ASCORBIC ACID 500 MG TAB PO SCH (09:46)
--- NOTE | 2023-06-05 10:08 | Hospitalist Progress Note ---
Date of Service June 05, 2023 Assessment & Plan (1) Acute GI bleeding: Plan: 82 yo F w/ type 2 diabetes, diabetic peripheral angiopathy, hyperlipidemia, hyperparathyroidism, lung nodules, heart failure with preserved ejection fraction, portal hypertension, aortic ectasia, superior mesenteric artery stenosis s/p stent, history of valvular disease, hypertension, history of CVA, history of CAD, GERD, history of pericolonic abscess, history of hepatic cirrho sis, history of GI bleed associated with intestinal diverticulosis, osteoporosis, anemia, visual field loss poststroke, history of hyponatremia presents with rectal bleed. Patient states since last night she had several episodes of small amount of rectal bleed. Also had a few episodes of vomiting but no blood in the vomiting or no black vomitus. Denies any abdominal pain. Shortly after admission pt developed hematemesis and was taken to EGD - underwent esophageal varices banding w/ GI. 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 Patient was admitted to [facility] on April 24, 2023 for GI bleed and received total of 3 units of PRBC. Was on Sandostatin, Protonix drip and Rocephin. EGD was okay except showing grade 2 esophageal varices. And she was transferred to [place] for possible mesenteric ischemia and ischemic colitis and possible need for IR intervention. GI did colonoscopy which revealed diverticulosis with old bleeding and no active bleeding and there was no evidence of recurrent ischemic colitis. Patient restarted on Plavix and discharged to follow-up with vascular surgery and metoprolol was changed to Coreg. And advised to follow with hepatology for liver cirrhosis. Patient was again admitted to [facility] on May 12, 2023 with acute GI bleeding with a mix of black and bright red blood. She was s/p 2 units of PRBC. EGD was done which was again showed grade 2 esophageal varices. Portal hypertension gastropathy. Normal examined duodenum. Hemoglobin was stabilized and she was again discharged. Patient has had a follow-up appointment with vascular surgery yesterday and plan to follow-up with repeat mesenteric ultrasounds. Acute GI bleeding Rectal bleed Hematemesis s/p EGD and banding of esophageal varices (06/01/2023) Acute blood loss anemia 2/2 GI bleed Patient had EGD twice recently which showed grade 2 esophageal varices and portal hypertensive gastropathy Recent colonoscopy showed diverticulosis Hemoglobin on admission 8.6 -> down to 6.9 on repeat. on admission Patient had small amount of rectal bleed several times. then developed hematemesis shortly after admission. Placed on gentle fluids normal saline 75 mill per hour Blood consent obtained - 1 unit of pRBC transfused on 06/01/23 (confirmed w/ blood bank) Hgb this AM 8.5 -> at noon repeated 8.8 + BMs w/ blood Cont. to monitor H&H Because of esophageal varices placed on Sandostatin drip, PPI drip and Zosyn History of ischemic colitis with SMA stent placement. In April CT scan was okay. Currently patient has no abdominal pain hold plavix. h and h q 6hrs 06/03 - no more blood in stool, no hematemesis 06/04 - no blood in stool per RN Hgb 6.7 - 1 unit of pRBC ordered 06/05 - no blood n stool, Hgb 8.6 (received 1 unit of pRBC yesterday) GI consulted - s/p EGD and banding of esophageal varices (06/01/2023) Findings: Two columns of large (> 5 mm) varices with stigmata of recent bleeding were found in the lower third of the esophagus, 36 cm from the incisors. Red amalia signs were present. Four bands were successfully placed with complete eradication, resulting in deflation of varices. There was no bleeding during and at the end of the procedure. Type 1 isolated gastric varices (IGV1, varices located in the fundus) with no bleeding were found in the gastric fundus. They were small in largest diameter. Severe portal hypertensive gastropathy was found in the stomach. The duodenal bulb and second portion of the duodenum were normal. Impression: - Large (> 5 mm) esophageal varices with stigmata of recent bleeding. Banded. - IGV1, varices located in the fundus, without bleeding. - Portal hypertensive gastropathy. - Normal duodenal bulb and second portion of the duodenum. - No specimens collected. Recommendation: - Return patient to [facility] for ongoing care. - Clear liquid diet for 2 days, then advance as tolerated to full liquid diet then as tolerated. - Use a proton pump inhibitor IV for 2 days then PO BID for 3 months. - IV Octreotide for 2 days. - IV Ceftriaxone. - Avoid Alendronate. - Continue Coreg. - Need to discuss risk and benefit of continuing Plavix as she is high risk for GI bleeding. - Repeat upper endoscopy in 3 months for retreatment. COMMENT: Patient at risk of worsening portal HTN gastropathy and gastric varices in the future hence may eventually need TIPS if recurrent bleeding develops. Continue to closely monitor Elevated lactic acidosis Likely 2/2 to above Patient also has liver cirrhosis History of ischemic colitis and SMA's stent Patient currently has no abdominal pain mesenteric duplex obtained - patent sma stent and proximal sma moderate stenosis repeat lactic acid level improved to 2.1 Close monitor Fever Pt developed fever 1/20 AM She has been on zosyn since admission blood cultx, cxr, ua obtained, cxr - negat. UA negat. blood cultx - pending broaden abx to cef + flagyl + vanco - discussed w/ pharm JANELL Presented with cr 1.4 Holding diuretics and losartan Avoid nephrotoxic agents Follow repeat labs. current Cr 1.2 History of liver cirrhosis Received fluids and diuretic on hold Monitor for volume overload Chronic heart failure with preserved ejection fraction Holding diuretics received fluids Monitor for volume overload Diabetes Hold home medications Lantus and insulin sliding scale Glycemic pharmacy consult History of CAD Holding Plavix Continue beta-blockers and statin HTN holding Losartan and diuretic cont. Coreq DVT prophylaxis SCDs Disposition Telemetry floor CODE STATUS DNR/DNI as per admitting physician's discussion with the patient. Admission and Anticipated Discharge Date Admission Date: June 01, 2023 Subjective Pt seen in follow up of GI bleed, blood per rectum, hematemesis s/p banding of esophageal varices No blood in stool per RN. Afebrile. Unit of pRBC received yesterday. Cont. to monitor H&H. Pt is currently laying in bed, in NAD. Denies any abdominal pain Denies chest pain shortness of breath Review of Systems Review of Systems: All systems reviewed & are unremarkable except as noted in Subjective Physical Exam Physical Exam: General- WD/WN F in NAD Head- atraumatic Eyes- PERRL. ENT- oropharynx clear Neck- supple, no JVD. Lungs- clear to auscultation no wheezing or crackles. Heart- regular rate and rhythm; no murmur, no gallop. Abdomen- normal bowel sounds, soft, nontender, no distension Extremities- no pretibial edema, no erythema seen. Neuro- alert, oriented x 3; PERRL, no facial palsy; no dysarthria; moves extremities. Skin- warm & dry Results & Data Results & Data Vital Signs (Past 12 Hours) Vital Signs Temp Pulse Pulse Resp BP Pulse Ox Pulse Ox 06/05/23 08:00 36.8 C 83 18 135/58 L 97 06/05/23 07:44 75 06/05/23 05:31 96 06/05/23 04:00 36.9 C 78 18 137/57 L 96 O2 Del Method O2 Del Method 06/05/23 08:00 Room Air 06/05/23 07:44 06/05/23 05:31 Room Air 06/05/23 04:00 Room Air Laboratory Results 06/05/23 06/05/23 06/05/23 Range/Units 07:35 07:15 07:10 WBC (4.8-10.8) K/ul RBC (4.20-5.40) M/uL Hgb (12.0-16.0) g/dl Hct (37.0-47.0) % MCV (80.0-100.0) fL MCH (25.0-34.0) pg MCHC (32.0-36.0) g/dL RDW Std Deviation (36.4-46.3) fL RDW Coeff of Vanita (11.5-14.5) % Plt Count (130-400) K/uL MPV (9.4-12.4) fL Sodium (136-145) mmol/L Potassium (3.5-5.1) mmol/L Chloride (98-107) mmol/L Carbon Dioxide (21-32) mmol/L Anion Gap (3-11) BUN (6-23) mg/dl Creatinine (0.6-1.2) mg/dl Est Cr Clr Drug Dosing ml/min Est GFR ( Amer) ml/min Est GFR (Non-Af Amer) ml/min BUN/Creatinine Ratio (10-20) Glucose (70-99(Fasting)) mg/dl POC Glucose 76 56 L* 62 L* (70-99) mg/dl Calcium (8.6-10.3) mg/dl Phosphorus (2.5-4.9) mg/dl Magnesium (1.7-2.4) mg/dl Urine Color Urine Appearance (Clear) Urine pH (4.5-7.5) Ur Specific Walsh (1.000-1.030) Urine Protein (Negative) Urine Glucose (UA) (Negative) Urine Ketones (Negative) Urine Blood (Negative) Urine Nitrite (Negative) Urine Bilirubin (Negative) Urine Urobilinogen (Negative) Ur Leukocyte Esterase (Negative) Urine WBC (Auto) (0-5) /hpf Urine RBC (Auto) (0-4) /hpf U Hyaline Cast (Auto) (0-5) /lpf U Epithel Cells (Auto) (0-5) /lpf Urine Bacteria (Auto) (Negative) Random Vancomycin (10-20) mcg/ml Blood Type Antibody Screen Crossmatch 06/05/23 06/04/23 06/04/23 Range/Units 05:29 20:20 17:55 WBC 4.37 L (4.8-10.8) K/ul RBC 2.97 L (4.20-5.40) M/uL Hgb 8.6 L (12.0-16.0) g/dl Hct 26.6 L (37.0-47.0) % MCV 89.6 (80.0-100.0) fL MCH 29.0 (25.0-34.0) pg MCHC 32.3 (32.0-36.0) g/dL RDW Std Deviation 53.0 H (36.4-46.3) fL RDW Coeff of Vanita 16.3 H (11.5-14.5) % Plt Count 98 L (130-400) K/uL MPV 10.3 (9.4-12.4) fL Sodium 141 (136-145) mmol/L Potassium 3.5 (3.5-5.1) mmol/L Chloride 113 H (98-107) mmol/L Carbon Dioxide 21 (21-32) mmol/L Anion Gap 7 (3-11) BUN 14 (6-23) mg/dl Creatinine 1.09 (0.6-1.2) mg/dl Est Cr Clr Drug Dosing 38.9 ml/min Est GFR ( Amer) 54.7 ml/min Est GFR (Non-Af Amer) 47.2 ml/min BUN/Creatinine Ratio 12.8 (10-20) Glucose 59 L (70-99(Fasting)) mg/dl POC Glucose 176 H (70-99) mg/dl Calcium 6.4 L (8.6-10.3) mg/dl Phosphorus 3.8 (2.5-4.9) mg/dl Magnesium 1.5 L (1.7-2.4) mg/dl Urine Color Yellow Urine Appearance Clear (Clear) Urine pH 7.0 (4.5-7.5) Ur Specific Walsh 1.007 (1.000-1.030) Urine Protein Negative (Negative) Urine Glucose (UA) Negative (Negative) Urine Ketones Negative (Negative) Urine Blood Negative (Negative) Urine Nitrite Negative (Negative) Urine Bilirubin Negative (Negative) Urine Urobilinogen Negative (Negative) Ur Leukocyte Esterase 2+ H (Negative) Urine WBC (Auto) 5-10 H (0-5) /hpf Urine RBC (Auto) 0-4 (0-4) /hpf U Hyaline Cast (Auto) 1-5 (0-5) /lpf U Epithel Cells (Auto) 20-30 H (0-5) /lpf Urine Bacteria (Auto) Negative (Negative) Random Vancomycin 8.6 L (10-20) mcg/ml Blood Type Antibody Screen Crossmatch 06/04/23 06/04/23 06/04/23 Range/Units 17:38 16:20 10:58 WBC (4.8-10.8) K/ul RBC (4.20-5.40) M/uL Hgb 9.5 L (12.0-16.0) g/dl Hct 29.6 L (37.0-47.0) % MCV (80.0-100.0) fL MCH (25.0-34.0) pg MCHC (32.0-36.0) g/dL RDW Std Deviation (36.4-46.3) fL RDW Coeff of Vanita (11.5-14.5) % Plt Count (130-400) K/uL MPV (9.4-12.4) fL Sodium (136-145) mmol/L Potassium (3.5-5.1) mmol/L Chloride (98-107) mmol/L Carbon Dioxide (21-32) mmol/L Anion Gap (3-11) BUN (6-23) mg/dl Creatinine (0.6-1.2) mg/dl Est Cr Clr Drug Dosing ml/min Est GFR ( Amer) ml/min Est GFR (Non-Af Amer) ml/min BUN/Creatinine Ratio (10-20) Glucose (70-99(Fasting)) mg/dl POC Glucose 162 H 139 H (70-99) mg/dl Calcium (8.6-10.3) mg/dl Phosphorus (2.5-4.9) mg/dl Magnesium (1.7-2.4) mg/dl Urine Color Urine Appearance (Clear) Urine pH (4.5-7.5) Ur Specific Walsh (1.000-1.030) Urine Protein (Negative) Urine Glucose (UA) (Negative) Urine Ketones (Negative) Urine Blood (Negative) Urine Nitrite (Negative) Urine Bilirubin (Negative) Urine Urobilinogen (Negative) Ur Leukocyte Esterase (Negative) Urine WBC (Auto) (0-5) /hpf Urine RBC (Auto) (0-4) /hpf U Hyaline Cast (Auto) (0-5) /lpf U Epithel Cells (Auto) (0-5) /lpf Urine Bacteria (Auto) (Negative) Random Vancomycin (10-20) mcg/ml Blood Type Antibody Screen Crossmatch 06/04/23 06/01/23 Range/Units 08:11 02:54 WBC (4.8-10.8) K/ul RBC (4.20-5.40) M/uL Hgb (12.0-16.0) g/dl Hct (37.0-47.0) % MCV (80.0-100.0) fL MCH (25.0-34.0) pg MCHC (32.0-36.0) g/dL RDW Std Deviation (36.4-46.3) fL RDW Coeff of Vanita (11.5-14.5) % Plt Count (130-400) K/uL MPV (9.4-12.4) fL Sodium (136-145) mmol/L Potassium (3.5-5.1) mmol/L Chloride (98-107) mmol/L Carbon Dioxide (21-32) mmol/L Anion Gap (3-11) BUN (6-23) mg/dl Creatinine (0.6-1.2) mg/dl Est Cr Clr Drug Dosing ml/min Est GFR ( Amer) ml/min Est GFR (Non-Af Amer) ml/min BUN/Creatinine Ratio (10-20) Glucose (70-99(Fasting)) mg/dl POC Glucose (70-99) mg/dl Calcium (8.6-10.3) mg/dl Phosphorus (2.5-4.9) mg/dl Magnesium (1.7-2.4) mg/dl Urine Color Urine Appearance (Clear) Urine pH (4.5-7.5) Ur Specific Walsh (1.000-1.030) Urine Protein (Negative) Urine Glucose (UA) (Negative) Urine Ketones (Negative) Urine Blood (Negative) Urine Nitrite (Negative) Urine Bilirubin (Negative) Urine Urobilinogen (Negative) Ur Leukocyte Esterase (Negative) Urine WBC (Auto) (0-5) /hpf Urine RBC (Auto) (0-4) /hpf U Hyaline Cast (Auto) (0-5) /lpf U Epithel Cells (Auto) (0-5) /lpf Urine Bacteria (Auto) (Negative) Random Vancomycin (10-20) mcg/ml Blood Type A Positive Antibody Screen NEGATIVE Crossmatch See Detail See Detail Medications Administered Current Inpatient Medications Ascorbic Acid (Ascorbic Acid 500 Mg Tab) 500 mg PO DAILY [facility] Stop: 07/01/23 08:59 Last Admin: 06/05/23 09:46 Dose: 500 mg Atorvastatin Calcium (Atorvastatin 40 Mg Tab) 40 mg PO DAILY [facility] Stop: 07/01/23 08:59 Last Admin: 06/05/23 09:46 Dose: 40 mg Carvedilol (Carvedilol 3.125 Mg Tab) 3.125 mg PO BID [facility] Stop: 07/01/23 08:59 Last Admin: 06/05/23 09:46 Dose: 3.125 mg Cinacalcet (Cinacalcet Hcl 30 Mg Tab) 30 mg PO DAILY [facility] Stop: 07/01/23 08:59 Last Admin: 06/05/23 09:46 Dose: 30 mg Dextrose (Dextrose 50% 50 Ml Syringe) 25 - 50 ml IV UD PRN; Protocol PRN Reason: Hypoglycemia Protocol Stop: 07/01/23 06:41 Glucagon (Glucagon For Inj 1 Mg Vial) 1 mg SQ UD PRN; Protocol PRN Reason: Hypoglycemia Protocol Stop: 07/01/23 06:41 Glucose (Glucose 10 Tab/Tube) 4 - 8 tab PO UD PRN; Protocol PRN Reason: Hypoglycemia Treatment Stop: 07/01/23 06:41 Glucose (Glucose 40% Gel 15 Gm Tube) 15 - 30 gm PO UD PRN; Protocol PRN Reason: Hypoglycemia Protocol Stop: 07/01/23 06:41 Ceftriaxone Sodium 2,000 mg/ (Dextrose) 50 mls @ 100 mls/hr IV Q24H [facility] Stop: 06/13/23 11:59 Last Infusion: 06/04/23 14:00 Dose: Infused Metronidazole (Flagyl) 500 mg in 100 mls @ 100 mls/hr IV Q8H [facility] Stop: 06/13/23 11:59 Last Infusion: 06/05/23 05:33 Dose: Infused Octreotide Acetate 500 mcg/ (Sodium Chloride) 100.5 mls @ 10.05 mls/hr IV .Q10H [facility] Stop: 07/03/23 18:59 Last Infusion: 06/04/23 13:45 Dose: Infused Vancomycin HCl 1,000 mg/ (Sodium Chloride) 270 mls @ 200 mls/hr IV Q24H [facility] Stop: 06/14/23 07:59 Magnesium Sulfate/Dextrose (Magnesium Sulfate / D5w) 1 gm in 100 mls @ 50 mls/hr IV ONE ONE Stop: 06/05/23 10:28 Last Admin: 06/05/23 09:46 Dose: 50 mls/hr Insulin Aspart (Insulin Aspart Per Unit Charge) 0 units SC ACHS [facility] Stop: 07/01/23 07:29 Last Admin: 06/05/23 07:41 Dose: Not Given Insulin Glargine (Lantus Per Unit Charge) 0 units SC HS [facility]; Protocol Stop: 07/04/23 20:59 Last Admin: 06/04/23 20:31 Dose: 8 units Magnesium Oxide (Magnesium Oxide 400 Mg Tab) 400 mg PO DAILY [facility] Stop: 07/01/23 08:59 Last Admin: 06/05/23 09:46 Dose: 400 mg Melatonin (Melatonin 3 Mg Tab) 9 mg PO HSZ PRN PRN Reason: Insomnia Stop: 07/01/23 07:20 Last Admin: 06/04/23 22:22 Dose: 9 mg Miscellaneous (Carbohydrates For Hypoglycemia ) 15 - 30 gm PO UD PRN PRN Reason: Hypoglycemia Protocol Stop: 07/01/23 06:41 Miscellaneous Information (Pharmacy Glycemic Mgmt Consult) 1 each N/A UD PRN PRN Reason: Consult Stop: 07/01/23 06:41 Miscellaneous Information (Vancomycin Consult Active) 1 each N/A UD PRN PRN Reason: Consult Stop: 07/03/23 08:26 Multivitamins/Minerals (Cerovite Adv Formula Tab) 1 tab PO DAILY [facility] Stop: 07/01/23 08:59 Last Admin: 06/05/23 09:46 Dose: 1 tab Nitroglycerin (Nitroglycerin Sl 0.4 Mg/Tab Tab) 0.4 mg SL Q5M PRN PRN Reason: Chest Pain Stop: 07/01/23 06:41 Ondansetron HCl (Ondansetron Inj 2 Mg/Ml 2 Ml Vial) 4 mg IV Q6H PRN PRN Reason: Nausea Stop: 07/01/23 06:41 Pantoprazole Sodium (Pantoprazole 40 Mg Tab) 40 mg PO BID [facility] Stop: 07/04/23 20:59 Last Admin: 06/05/23 09:46 Dose: 40 mg Vitamin B Complex (Vitamin B Complex Tab) 1 tab PO DAILY [facility] Stop: 07/01/23 08:59 Last Admin: 06/05/23 09:46 Dose: 1 tab
[2023-06-05] MEDS: VANCOMYCIN HCL 1,000 MG in SODIUM CHLORIDE 0.9% 250 ML IV SCH (10:40)
[2023-06-05] MEDS: cefTRIAXone SODIUM 2,000 MG in DEXTROSE 5 % MINI-B 50 ML IV SCH (11:53)
--- NOTE | 2023-06-05 12:10 | Pharmacy Report ---
Pharmacy Glycemic Short Note 2 - Date of Service June 05, 2023 - Glycemic Short BSG Results (Last 24 hours): 06/04/23 06/04/23 06/05/23 16:20 20:20 05:29 Glucose 59 L POC Glucose 162 H 176 H 06/05/23 06/05/23 06/05/23 07:10 07:15 07:35 Glucose POC Glucose 62 L* 56 L* 76 06/05/23 11:28 Glucose POC Glucose 185 H OUTPATIENT ANTIDIABETIC REGIMEN: * Novolin 70/30 25 units w/ breakfast, 10 units with supper; metformin 1000 mg BIDM * A1c 7.4% 04/25/23 ASSESSMENT: 06/05: * BSGs [id number]/dL the last 24h. Received 8 units of basal and 7 units of bolus insulin yesterday. * Still with decreased PO intake. Continues on antibiotics. * Hold basal for today given fasting BSG downtrending and 62mg/dL today. Reassess basal needs/PO intake tomorrow AM. No change to Novolog. 06/04: * Patient received total of 29 units of insulin yesterday, of which 16 units were basal insulin * Fasting BSG 77 mg/dL - plan to scale back ~40% this AM with basal as dose just decreased yesterday. Patient however refused basal this AM. Discussed with RN and patient feeling depressed and not eating much * Lunch BSG stable despite refusal of basal insulin. May consider very conservative scale for basal at HS time in case BSGs trending upward 06/02: * Continues on protonix + octreotide infusion * Lantus ordered for this morning not given until 11. Fasting this AM 182 mg/dL- will titrate basal up * Noon BSG elevated, tightened correction factor. Diet has been ordered. Monitor 06/01 * Patient admitted with GI Bleed, started on protonix + octreotide gtt. * NPO, received 12 units of lantus this morning; ~30 % reduction from home dose for AM dose; Will put scale for PM to receive possible additional 5 units * Started novolog similar to weight based stress of 2/ total daily insulin stress of 2. Will monitor. PLAN FOR INPATIENT GLYCEMIC CONTROL: * Hold outpatient oral diabetes medications * Basal insulin * hold * Bolus insulin * NovoLog per scale ACHS or Q6hrs while NPO * Goal Range: Low 110 mg/dL - High 140 mg/dL * Correction Factor: 30 mg/dL/unit * Nutritional / Prandial insulin per carb ratio of 1 unit per 11 grams CHO consumed
[2023-06-05] MEDS: metroNIDAZOLE 500 MG TAB PO SCH ×2 (15:02→22:36)
[2023-06-05 17:02] LABS: Hematocrit (blood only) 28.8 % (37.0-47.0); Hemoglobin 9.3 g/dl (12.0-16.0)
[2023-06-06 06:58] LABS: Hematocrit (blood only) 25.9 % (37.0-47.0); Hemoglobin 8.4 g/dl (12.0-16.0); Mean Corpuscular Hemoglobin 29.1 pg (25.0-34.0); Mean Corpuscular Hgb Conc 32.4 g/dL (32.0-36.0); Mean Corpuscular Volume 89.6 fL (80.0-100.0); Mean Platelet Volume 10.7 fL (9.4-12.4); Platelet Count 110 K/uL (130-400); RDW Coefficient of Variation 16.5 % (11.5-14.5); RDW Standard Deviation 53.1 fL (36.4-46.3); Red Blood Count 2.89 M/uL (4.20-5.40)
[2023-06-06 07:15] LABS: BUN Creatinine Ratio 11.6 (10-20); Calcium 6.7 mg/dl (8.6-10.3); Creatinine Clr Calc Pharmacy 38.3 ml/min; Est GFR (Non-African American) 45.7 ml/min; Magnesium 1.4 mg/dl (1.7-2.4); Phosphorus 3.4 mg/dl (2.5-4.9); Potassium 3.9 mmol/L (3.5-5.1)
--- NOTE | 2023-06-06 07:45 | Hospitalist Progress Note ---
Date of Service June 06, 2023 Assessment & Plan (1) Acute GI bleeding: Plan: 82 yo F w/ type 2 diabetes, diabetic peripheral angiopathy, hyperlipidemia, hyperparathyroidism, lung nodules, heart failure with preserved ejection fraction, portal hypertension, aortic ectasia, superior mesenteric artery stenosis s/p stent, history of valvular disease, hypertension, history of CVA, history of CAD, GERD, history of pericolonic abscess, history of hepatic cirrho sis, history of GI bleed associated with intestinal diverticulosis, osteoporosis, anemia, visual field loss poststroke, history of hyponatremia presents with rectal bleed. Patient states since last night she had several episodes of small amount of rectal bleed. Also had a few episodes of vomiting but no blood in the vomiting or no black vomitus. Denies any abdominal pain. Shortly after admission pt developed hematemesis and was taken to EGD - underwent esophageal varices banding w/ GI. 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 Patient was admitted to [facility] on April 24, 2023 for GI bleed and received total of 3 units of PRBC. Was on Sandostatin, Protonix drip and Rocephin. EGD was okay except showing grade 2 esophageal varices. And she was transferred to [place] for possible mesenteric ischemia and ischemic colitis and possible need for IR intervention. GI did colonoscopy which revealed diverticulosis with old bleeding and no active bleeding and there was no evidence of recurrent ischemic colitis. Patient restarted on Plavix and discharged to follow-up with vascular surgery and metoprolol was changed to Coreg. And advised to follow with hepatology for liver cirrhosis. Patient was again admitted to [facility] on May 12, 2023 with acute GI bleeding with a mix of black and bright red blood. She was s/p 2 units of PRBC. EGD was done which was again showed grade 2 esophageal varices. Portal hypertension gastropathy. Normal examined duodenum. Hemoglobin was stabilized and she was again discharged. Patient has had a follow-up appointment with vascular surgery yesterday and plan to follow-up with repeat mesenteric ultrasounds. Acute GI bleeding Rectal bleed Hematemesis s/p EGD and banding of esophageal varices (06/01/2023) Acute blood loss anemia 2/2 GI bleed Patient had EGD twice recently which showed grade 2 esophageal varices and portal hypertensive gastropathy Recent colonoscopy showed diverticulosis Hemoglobin on admission 8.6 -> down to 6.9 on repeat. on admission Patient had small amount of rectal bleed several times. then developed hematemesis shortly after admission. Placed on gentle fluids normal saline 75 mill per hour Blood consent obtained - 1 unit of pRBC transfused on 06/01/23 (confirmed w/ blood bank) Hgb this AM 8.5 -> at noon repeated 8.8 + BMs w/ blood Cont. to monitor H&H Because of esophageal varices placed on Sandostatin drip, PPI drip and Zosyn History of ischemic colitis with SMA stent placement. In April CT scan was okay. Currently patient has no abdominal pain hold plavix. h and h q 6hrs 06/03 - no more blood in stool, no hematemesis 06/04 - no blood in stool per RN Hgb 6.7 - 1 unit of pRBC ordered 06/05 - no blood n stool, Hgb 8.6 (received 1 unit of pRBC yesterday) 06/06 - no blood in stool, Hgb 8.4 GI consulted - s/p EGD and banding of esophageal varices (06/01/2023) Findings: Two columns of large (> 5 mm) varices with stigmata of recent bleeding were found in the lower third of the esophagus, 36 cm from the incisors. Red amalia signs were present. Four bands were successfully placed with complete eradication, resulting in deflation of varices. There was no bleeding during and at the end of the procedure. Type 1 isolated gastric varices (IGV1, varices located in the fundus) with no bleeding were found in the gastric fundus. They were small in largest diameter. Severe portal hypertensive gastropathy was found in the stomach. The duodenal bulb and second portion of the duodenum were normal. Impression: - Large (> 5 mm) esophageal varices with stigmata of recent bleeding. Banded. - IGV1, varices located in the fundus, without bleeding. - Portal hypertensive gastropathy. - Normal duodenal bulb and second portion of the duodenum. - No specimens collected. Recommendation: - Return patient to [facility] for [facility] care. - Clear liquid diet for 2 days, then advance as tolerated to full liquid diet then as tolerated. - Use a proton pump inhibitor IV for 2 days then PO BID for 3 months. - IV Octreotide for 2 days. - IV Ceftriaxone. - Avoid Alendronate. - Continue Coreg. - Need to discuss risk and benefit of continuing Plavix as she is high risk for GI bleeding. - Repeat upper endoscopy in 3 months for retreatment. COMMENT: Patient at risk of worsening portal HTN gastropathy and gastric varices in the future hence may eventually need TIPS if recurrent bleeding develops. Continue to closely monitor Elevated lactic acidosis Likely 2/2 to above Patient also has liver cirrhosis History of ischemic colitis and SMA's stent Patient currently has no abdominal pain mesenteric duplex obtained - patent sma stent and proximal sma moderate stenosis repeat lactic acid level improved to 2.1 Close monitor Fever Pt developed fever 120 AM She has been on zosyn since admission blood cultx, cxr, ua obtained, cxr - negat. UA negat. blood cultx - negat. in 48 hrs broaden abx to cef + flagyl + vanco - discussed w/ pharm 06/06 Discussed w/ ID - pt no longer febrile. Recommend 1 week of IV ceftriaxone post variceal bleed banding. If pt to be discharged , can switch to Levaquin 750 daily to finish 1 week course. vanco was stopped. JANELL Presented with cr 1.4 Holding diuretics and losartan Avoid nephrotoxic agents Follow repeat labs. current Cr 1.12 History of liver cirrhosis Received fluids and diuretic on hold Monitor for volume overload Chronic heart failure with preserved ejection fraction Holding diuretics received fluids Monitor for volume overload Diabetes Hold home medications Lantus and insulin sliding scale Glycemic pharmacy consult History of CAD Holding Plavix Continue beta-blockers and statin HTN holding Losartan and diuretic cont. Coreq DVT prophylaxis SCDs Disposition Telemetry floor CODE STATUS DNR/DNI as per admitting physician's discussion with the patient. Admission and Anticipated Discharge Date Admission Date: June 01, 2023 Subjective Pt seen in follow up of GI bleed, blood per rectum, hematemesis s/p banding of esophageal varices No blood in stool per RN. Afebrile. s/p Unit of pRBC , Cont. to monitor H&H. Pt is currently sitting up in chair, in NAD. Denies any abdominal pain Denies chest pain shortness of breath Review of Systems Review of Systems: All systems reviewed & are unremarkable except as noted in Subjective Physical Exam Physical Exam: General- WD/WN F in NAD Head- atraumatic Eyes- PERRL. ENT- oropharynx clear Neck- supple, no JVD. Lungs- clear to auscultation no wheezing or crackles. Heart- regular rate and rhythm; no murmur, no gallop. Abdomen- normal bowel sounds, soft, nontender, no distension Extremities- no pretibial edema, no erythema seen. Neuro- alert, oriented x 3; PERRL, no facial palsy; no dysarthria; moves extremities. Skin- warm & dry Results & Data Results & Data Vital Signs (Past 12 Hours) Vital Signs Temp Pulse Pulse Resp BP Pulse Ox Pulse Ox 06/06/23 07:29 36.8 C 84 18 131/52 L 95 06/06/23 06:00 96 06/06/23 03:40 36.8 C 77 24 129/72 94 06/05/23 23:00 36.9 C 81 19 121/54 L 93 06/05/23 22:00 79 O2 Del Method O2 Del Method 06/06/23 07:29 Room Air 06/06/23 06:00 Room Air 06/06/23 03:40 Room Air 06/05/23 23:00 Room Air 06/05/23 22:00 Laboratory Results 06/06/23 06/06/23 06/05/23 Range/Units 07:24 06:45 20:16 WBC 4.70 L (4.8-10.8) K/ul RBC 2.89 L (4.20-5.40) M/uL Hgb 8.4 L (12.0-16.0) g/dl Hct 25.9 L (37.0-47.0) % MCV 89.6 (80.0-100.0) fL MCH 29.1 (25.0-34.0) pg MCHC 32.4 (32.0-36.0) g/dL RDW Std Deviation 53.1 H (36.4-46.3) fL RDW Coeff of Vanita 16.5 H (11.5-14.5) % Plt Count 110 L (130-400) K/uL MPV 10.7 (9.4-12.4) fL Sodium 137 (136-145) mmol/L Potassium 3.9 (3.5-5.1) mmol/L Chloride 110 H (98-107) mmol/L Carbon Dioxide 20 L (21-32) mmol/L Anion Gap 7 (3-11) BUN 13 (6-23) mg/dl Creatinine 1.12 (0.6-1.2) mg/dl Est Cr Clr Drug Dosing 38.3 ml/min Est GFR ( Amer) 53.0 ml/min Est GFR (Non-Af Amer) 45.7 ml/min BUN/Creatinine Ratio 11.6 (10-20) Glucose 157 H (70-99(Fasting)) mg/dl POC Glucose 146 H 166 H (70-99) mg/dl Calcium 6.7 L (8.6-10.3) mg/dl Phosphorus 3.4 (2.5-4.9) mg/dl Magnesium 1.4 L (1.7-2.4) mg/dl 06/05/23 06/05/23 06/05/23 Range/Units 16:49 16:30 11:28 WBC (4.8-10.8) K/ul RBC (4.20-5.40) M/uL Hgb 9.3 L (12.0-16.0) g/dl Hct 28.8 L (37.0-47.0) % MCV (80.0-100.0) fL MCH (25.0-34.0) pg MCHC (32.0-36.0) g/dL RDW Std Deviation (36.4-46.3) fL RDW Coeff of Vanita (11.5-14.5) % Plt Count (130-400) K/uL MPV (9.4-12.4) fL Sodium (136-145) mmol/L Potassium (3.5-5.1) mmol/L Chloride (98-107) mmol/L Carbon Dioxide (21-32) mmol/L Anion Gap (3-11) BUN (6-23) mg/dl Creatinine (0.6-1.2) mg/dl Est Cr Clr Drug Dosing ml/min Est GFR ( Amer) ml/min Est GFR (Non-Af Amer) ml/min BUN/Creatinine Ratio (10-20) Glucose (70-99(Fasting)) mg/dl POC Glucose 116 H 185 H (70-99) mg/dl Calcium (8.6-10.3) mg/dl Phosphorus (2.5-4.9) mg/dl Magnesium (1.7-2.4) mg/dl Medications Administered Current Inpatient Medications Ascorbic Acid (Ascorbic Acid 500 Mg Tab) 500 mg PO DAILY [facility] Stop: 07/01/23 08:59 Last Admin: 06/05/23 09:46 Dose: 500 mg Atorvastatin Calcium (Atorvastatin 40 Mg Tab) 40 mg PO DAILY [facility] Stop: 07/01/23 08:59 Last Admin: 06/05/23 09:46 Dose: 40 mg Carvedilol (Carvedilol 3.125 Mg Tab) 3.125 mg PO BID [facility] Stop: 07/01/23 08:59 Last Admin: 06/05/23 21:08 Dose: 3.125 mg Cinacalcet (Cinacalcet Hcl 30 Mg Tab) 30 mg PO DAILY [facility] Stop: 07/01/23 08:59 Last Admin: 06/05/23 09:46 Dose: 30 mg Dextrose (Dextrose 50% 50 Ml Syringe) 25 - 50 ml IV UD PRN; Protocol PRN Reason: Hypoglycemia Protocol Stop: 07/01/23 06:41 Glucagon (Glucagon For Inj 1 Mg Vial) 1 mg SQ UD PRN; Protocol PRN Reason: Hypoglycemia Protocol Stop: 07/01/23 06:41 Glucose (Glucose 10 Tab/Tube) 4 - 8 tab PO UD PRN; Protocol PRN Reason: Hypoglycemia Treatment Stop: 07/01/23 06:41 Glucose (Glucose 40% Gel 15 Gm Tube) 15 - 30 gm PO UD PRN; Protocol PRN Reason: Hypoglycemia Protocol Stop: 07/01/23 06:41 Ceftriaxone Sodium 2,000 mg/ (Dextrose) 50 mls @ 100 mls/hr IV Q24H [facility] Stop: 06/13/23 11:59 Last Infusion: 06/05/23 12:34 Dose: Infused Octreotide Acetate 500 mcg/ (Sodium Chloride) 100.5 mls @ 10.05 mls/hr IV .Q10H [facility] Stop: 07/03/23 18:59 Last Infusion: 06/04/23 13:45 Dose: Infused Vancomycin HCl 1,000 mg/ (Sodium Chloride) 270 mls @ 200 mls/hr IV Q24H [facility] Stop: 06/14/23 07:59 Last Infusion: 06/05/23 12:14 Dose: Infused Magnesium Sulfate/Dextrose (Magnesium Sulfate / D5w) 1 gm in 100 mls @ 50 mls/hr IV Q2H [facility] Stop: 06/06/23 11:44 Insulin Aspart (Insulin Aspart Per Unit Charge) 0 units SC ACHS [facility] Stop: 07/01/23 07:29 Last Admin: 06/05/23 21:05 Dose: Not Given Magnesium Oxide (Magnesium Oxide 400 Mg Tab) 400 mg PO DAILY [facility] Stop: 07/01/23 08:59 Last Admin: 06/05/23 09:46 Dose: 400 mg Melatonin (Melatonin 3 Mg Tab) 9 mg PO HSZ PRN PRN Reason: Insomnia Stop: 07/01/23 07:20 Last Admin: 06/04/23 22:22 Dose: 9 mg Metronidazole (Metronidazole 500 Mg Tab) 500 mg PO TID [facility]; Protocol Stop: 06/15/23 13:59 Last Admin: 06/05/23 22:36 Dose: 500 mg Miscellaneous (Carbohydrates For Hypoglycemia ) 15 - 30 gm PO UD PRN PRN Reason: Hypoglycemia Protocol Stop: 07/01/23 06:41 Miscellaneous Information (Pharmacy Glycemic Mgmt Consult) 1 each N/A UD PRN PRN Reason: Consult Stop: 07/01/23 06:41 Miscellaneous Information (Vancomycin Consult Active) 1 each N/A UD PRN PRN Reason: Consult Stop: 07/03/23 08:26 Multivitamins/Minerals (Cerovite Adv Formula Tab) 1 tab PO DAILY [facility] Stop: 07/01/23 08:59 Last Admin: 06/05/23 09:46 Dose: 1 tab Nitroglycerin (Nitroglycerin Sl 0.4 Mg/Tab Tab) 0.4 mg SL Q5M PRN PRN Reason: Chest Pain Stop: 07/01/23 06:41 Ondansetron HCl (Ondansetron Inj 2 Mg/Ml 2 Ml Vial) 4 mg IV Q6H PRN PRN Reason: Nausea Stop: 07/01/23 06:41 Pantoprazole Sodium (Pantoprazole 40 Mg Tab) 40 mg PO BID [facility] Stop: 07/04/23 20:59 Last Admin: 06/05/23 22:37 Dose: 40 mg Vitamin B Complex (Vitamin B Complex Tab) 1 tab PO DAILY [facility] Stop: 07/01/23 08:59 Last Admin: 06/05/23 09:46 Dose: 1 tab
[2023-06-06] MEDS ORDERED: LANTUS PER UNIT CHARGE SC SCH (09:00)
[2023-06-06] MEDS: MAGNESIUM SULFATE / D5W 1 GM/100 ML BAG IV SCH ×2 (09:14→11:33)
[2023-06-06] MEDS: VANCOMYCIN HCL 1,000 MG in SODIUM CHLORIDE 0.9% 250 ML IV SCH (09:15)
[2023-06-06] MEDS: INSULIN ASPART PER UNIT CHARGE SC SCH ×4 (09:16→20:19)
[2023-06-06] MEDS: CEROVITE ADV FORMULA TAB PO SCH (09:18)
[2023-06-06] MEDS: PANTOprazole 40 MG TAB PO SCH ×2 (09:18→20:13)
[2023-06-06] MEDS: VITAMIN B COMPLEX TAB PO SCH (09:18)
[2023-06-06] MEDS: MAGNESIUM OXIDE 400 MG TAB PO SCH (09:18)
[2023-06-06] MEDS: carvediloL 3.125 MG TAB PO SCH ×2 (09:19→20:12)
[2023-06-06] MEDS: CINACALCET HCL 30 MG TAB PO SCH (09:19)
[2023-06-06] MEDS: ATORVASTATIN 40 MG TAB PO SCH (09:19)
[2023-06-06] MEDS: ASCORBIC ACID 500 MG TAB PO SCH (09:19)
[2023-06-06] MEDS: metroNIDAZOLE 500 MG TAB PO SCH ×3 (09:19→20:12)
[2023-06-06] MEDS: cefTRIAXone SODIUM 2,000 MG in DEXTROSE 5 % MINI-B 50 ML IV SCH (13:06)
[2023-06-07 06:44] LABS: Hematocrit (blood only) 25.4 % (37.0-47.0); Hemoglobin 8.1 g/dl (12.0-16.0); Mean Corpuscular Hemoglobin 28.8 pg (25.0-34.0); Mean Corpuscular Hgb Conc 31.9 g/dL (32.0-36.0); Mean Corpuscular Volume 90.4 fL (80.0-100.0); Mean Platelet Volume 10.4 fL (9.4-12.4); Platelet Count 104 K/uL (130-400); RDW Coefficient of Variation 16.2 % (11.5-14.5); RDW Standard Deviation 53.6 fL (36.4-46.3); Red Blood Count 2.81 M/uL (4.20-5.40); White Blood Count 4.57 K/ul (4.8-10.8)
[2023-06-07 07:06] LABS: Calcium 6.6 mg/dl (8.6-10.3); Magnesium 1.5 mg/dl (1.7-2.4); Potassium 3.9 mmol/L (3.5-5.1)
[2023-06-07 07:12] LABS: BUN Creatinine Ratio 11.9 (10-20); Creatinine Clr Calc Pharmacy 39.9 ml/min; Est GFR (African American) 54.7 ml/min; Est GFR (Non-African American) 47.2 ml/min
[2023-06-07] MEDS: PANTOprazole 40 MG TAB PO SCH ×2 (08:24→20:26)
[2023-06-07] MEDS: metroNIDAZOLE 500 MG TAB PO SCH ×3 (08:25→20:26)
[2023-06-07] MEDS: MAGNESIUM OXIDE 400 MG TAB PO SCH (08:25)
[2023-06-07] MEDS: ASCORBIC ACID 500 MG TAB PO SCH (08:25)
[2023-06-07] MEDS: VITAMIN B COMPLEX TAB PO SCH (08:25)
[2023-06-07] MEDS: CINACALCET HCL 30 MG TAB PO SCH (08:25)
[2023-06-07] MEDS: carvediloL 3.125 MG TAB PO SCH ×2 (08:25→20:26)
[2023-06-07] MEDS: ATORVASTATIN 40 MG TAB PO SCH (08:25)
[2023-06-07] MEDS: CEROVITE ADV FORMULA TAB PO SCH (08:25)
[2023-06-07] MEDS: LANTUS PER UNIT CHARGE SC SCH (08:32)
[2023-06-07] MEDS: INSULIN ASPART PER UNIT CHARGE SC SCH ×4 (08:32→20:35)
[2023-06-07] MEDS: MAGNESIUM SULFATE / D5W 1 GM/100 ML BAG IV SCH ×2 (10:14→12:06)
[2023-06-07] MEDS: cefTRIAXone SODIUM 2,000 MG in DEXTROSE 5 % MINI-B 50 ML IV SCH (12:20)
--- NOTE | 2023-06-07 13:14 | Hospitalist Progress Note ---
Date of Service June 07, 2023 Assessment & Plan (1) Acute GI bleeding: Plan: Per previous provider: "82 yo F w/ type 2 diabetes, diabetic peripheral angiopathy, hyperlipidemia, hyperparathyroidism, lung nodules, heart failure with preserved ejection fraction, portal hypertension, aortic ectasia, superior mesenteric artery stenosis s/p stent, history of valvular disease, hypertension, history of CVA, history of CAD, GERD, history of pericolonic abscess, history of hepatic cirrhosis, history of GI bleed associated with intestinal diverticulosis, osteoporosis, anemia, visual field loss poststroke, history of hyponatremia admitted with rectal bleed. Shortly after admission pt developed hematemesis and was taken to EGD - underwent esophageal varices banding w/ GI. 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 Patient was admitted to [facility] on April 24, 2023 for GI bleed and received total of 3 units of PRBC. Was on Sandostatin, Protonix drip and Rocephin. EGD was okay except showing grade 2 esophageal varices. And she was transferred to [place] for possible mesenteric ischemia and ischemic colitis and possible need for IR intervention. GI did colonoscopy which revealed diverticulosis with old bleeding and no active bleeding and there was no evidence of recurrent ischemic colitis. Patient restarted on Plavix and discharged to follow-up with vascular surgery and metoprolol was changed to Coreg. And advised to follow with hepatology for liver cirrhosis. Patient was again admitted to [facility] on May 12, 2023 with acute GI bleeding with a mix of black and bright red blood. She was s/p 2 units of PRBC. EGD was done which was again showed grade 2 esophageal varices. Portal hypertension gastropathy. Normal examined duodenum. Hemoglobin was stabilized and she was again discharged. Patient has had a follow-up appointment with vascular surgery yesterday and plan to follow-up with repeat mesenteric ultrasounds." Acute GI bleeding Rectal bleed Hematemesis s/p EGD and banding of esophageal varices (06/01/2023) Acute blood loss anemia 2/2 GI bleed Patient had EGD twice recently which showed grade 2 esophageal varices and portal hypertensive gastropathy Recent colonoscopy showed diverticulosis Hemoglobin on admission 8.6 -> down to 6.9 on repeat Patient had small amount of rectal bleed several times. Then developed hematemesis shortly after admission. Was transfused 2 units of pRBCs on 06/01/23 and 06/04/23 Because of esophageal varices was also treated with Sandostatin drip, PPI drip and Zosyn History of ischemic colitis with SMA stent placement. In April CT scan was okay. Currently patient has no abdominal pain Held plavix GI was consulted - s/p EGD and banding of esophageal varices (06/01/2023) Findings: Two columns of large (> 5 mm) varices with stigmata of recent bleeding were found in the lower third of the esophagus, 36 cm from the incisors. Red amalia signs were present. Four bands were successfully placed with complete eradication, resulting in deflation of varices. There was no bleeding during and at the end of the procedure. Type 1 isolated gastric varices (IGV1, varices located in the fundus) with no bleeding were found in the gastric fundus. They were small in largest diameter. Severe portal hypertensive gastropathy was found in the stomach. The duodenal bulb and second portion of the duodenum were normal. Impression: - Large (> 5 mm) esophageal varices with stigmata of recent bleeding. Banded. - IGV1, varices located in the fundus, without bleeding. - Portal hypertensive gastropathy. - Normal duodenal bulb and second portion of the duodenum. - No specimens collected. Recommendation: - Return patient to [facility] for ongoing care. - Clear liquid diet for 2 days, then advance as tolerated to full liquid diet then as tolerated. - Use a proton pump inhibitor IV for 2 days then PO BID for 3 months. - IV Octreotide for 2 days. - IV Ceftriaxone. - Avoid Alendronate. - Continue Coreg. - Need to discuss risk and benefit of continuing Plavix as she is high risk for GI bleeding. - Repeat upper endoscopy in 3 months for retreatment. COMMENT: Patient at risk of worsening portal HTN gastropathy and gastric varices in the future hence may eventually need TIPS if recurrent bleeding develops. 06/07: Pt's hgb remained stable at approximately 8. On IV Rocephin Day 5. Reportedly per ID, pt requires at least a week of treatment with IV Rocephin. Pt would like to go home. Hypomagnesemia Low magnesium levels noted while hospitalized Pt on pantoprazole, known side effect as well Repleted as needed, consider daily supplement Continue to monitor levels after discharge Elevated lactic acidosis Likely 2/2 to above Patient also has liver cirrhosis History of ischemic colitis and SMA's stent Patient currently has no abdominal pain mesenteric duplex previously obtained - patent sma stent and proximal sma moderate stenosis repeat lactic acid level improved to 2.1 Close monitor Fever Pt developed fever 1/20 AM She has been on zosyn since admission blood Cx, cxr, ua obtained, cxr - negat. UA negat. blood Cx - NGTD broaden abx to rocephin + flagyl + vanco - discussed w/ pharm 06/06 previous provider discussed w/ ID - pt no longer febrile. Recommend 1 week of IV ceftriaxone post variceal bleed banding. If pt to be discharged , can switch to Levaquin 750 daily to finish 1 week course. vanco was discontinued. JANELL Presented with cr 1.4 Held home diuretic and losartan Home diuretic to be resumed on 06/08, continue to hold losartan Avoid nephrotoxic agents/contrast Currently wnl History of liver cirrhosis Received fluids and diuretic was on hold Home diuretic to be resumed on 06/08 Monitor for volume overload Chronic heart failure with preserved ejection fraction Received fluids and diuretic was on hold Home diuretic to be resumed on 06/08 Monitor for volume overload DMII Hgba1c of 5.6 on 06/02 Hold home medications Lantus and insulin sliding scale Glycemic pharmacy consult History of CAD Holding Plavix as noted above Continue beta-blockers and statin HTN holding Losartan and diuretic Home diuretic to be resumed on 06/08 cont. Coreq Diet: DMII, low fiber CODE STATUS: DNR/DNI DVT prophylaxis: SCDs in setting of GI Bleed Dispo: Home w/o services, has GA, uses walker. Admission and Anticipated Discharge Date Admission Date: June 01, 2023 Subjective Pt states that she wants to go home. States she understands why she is here and the need for the transfusions but is wondering if they can be done at home. Wants a shower. States she feels great. Denies SOB, chest pain, dizziness, palps. Review of Systems Review of Systems: All systems reviewed & are unremarkable except as noted in Subjective Physical Exam Physical Exam: General: Alert, oriented. No acute distress Skin: No noted rashes or bruises Psych: Appropriate mood and affect Neuro: No gross deficits while sitting in bed HEENT: NC/AT Chest: Nontender to palpation. CV: RRR Resp: Breath sounds clear bilaterally, no increased effort of breathing. Abdomen: Soft, nontender, nondistended. No guarding. No organomegaly appreciated. Extremities: + edema in lower extremities bilaterally. Results & Data Results & Data Vital Signs (Past 12 Hours) Vital Signs Temp Pulse Pulse Resp BP BP Pulse Ox 06/07/23 12:06 36.7 C 81 18 136/51 L 95 06/07/23 08:42 36.9 C 82 17 138/84 95 06/07/23 07:16 77 06/07/23 03:00 36.9 C 79 19 154/94 H 96 O2 Del Method 06/07/23 12:06 Room Air 06/07/23 08:42 Room Air 06/07/23 07:16 06/07/23 03:00 Room Air
--- NOTE | 2023-06-07 14:00 | Pharmacy Report ---
Pharmacy Glycemic Short Note 2 - Date of Service June 07, 2023 - Glycemic Short BSG Results (Last 24 hours): 06/06/23 06/06/23 06/07/23 16:16 20:12 06:21 Glucose 158 H POC Glucose 166 H 202 H 06/07/23 06/07/23 07:21 11:07 Glucose POC Glucose 149 H 197 H OUTPATIENT ANTIDIABETIC REGIMEN: * Novolin 70/30 25 units w/ breakfast, 10 units with supper; metformin 1000 mg BIDM * A1c 7.4% 04/25/23 ASSESSMENT: 06/07: * BSGs [id number] mg/dL yesterday. Received 5 units of basal and 18 units of bolus insulin * Fasting this morning 149 mg/dL- will increase Lantus dose this AM * Carb ratio fastened as BSGs trending upward, lunch improved 197 mg/dL today 06/05: * BSGs [phone]/dL the last 24h. Received 8 units of basal and 7 units of bolus insulin yesterday. * Still with decreased PO intake. Continues on antibiotics. * Hold basal for today given fasting BSG downtrending and 62mg/dL today. Reassess basal needs/PO intake tomorrow AM. No change to Novolog. 06/04: * Patient received total of 29 units of insulin yesterday, of which 16 units were basal insulin * Fasting BSG 77 mg/dL - plan to scale back ~40% this AM with basal as dose just decreased yesterday. Patient however refused basal this AM. Discussed with RN and patient feeling depressed and not eating much * Lunch BSG stable despite refusal of basal insulin. May consider very conservative scale for basal at HS time in case BSGs trending upward 06/02: * Continues on protonix + octreotide infusion * Lantus ordered for this morning not given until 11. Fasting this AM 182 mg/dL- will titrate basal up * Noon BSG elevated, tightened correction factor. Diet has been ordered. Monitor 06/01 * Patient admitted with GI Bleed, started on protonix + octreotide gtt. * NPO, received 12 units of lantus this morning; ~30 % reduction from home dose for AM dose; Will put scale for PM to receive possible additional 5 units * Started novolog similar to weight based stress of 2/ total daily insulin stress of 2. Will monitor. PLAN FOR INPATIENT GLYCEMIC CONTROL: * Hold outpatient oral diabetes medications * Basal insulin * Lantus 8 units * Bolus insulin * NovoLog per scale ACHS or Q6hrs while NPO * Goal Range: Low 110 mg/dL - High 140 mg/dL * Correction Factor: 30 mg/dL/unit * Nutritional / Prandial insulin per carb ratio of 1 unit per 9 grams CHO consumed
[2023-06-07 18:42] LABS: Hematocrit (blood only) 26.8 % (37.0-47.0); Hemoglobin 8.8 g/dl (12.0-16.0)
[2023-06-08 07:17] LABS: Hematocrit (blood only) 25.2 % (37.0-47.0); Hemoglobin 8.3 g/dl (12.0-16.0); Mean Corpuscular Hemoglobin 28.9 pg (25.0-34.0); Mean Corpuscular Hgb Conc 32.9 g/dL (32.0-36.0); Mean Corpuscular Volume 87.8 fL (80.0-100.0); Mean Platelet Volume 10.4 fL (9.4-12.4); Platelet Count 107 K/uL (130-400); RDW Coefficient of Variation 15.3 % (11.5-14.5); RDW Standard Deviation 49.1 fL (36.4-46.3); Red Blood Count 2.87 M/uL (4.20-5.40)
[2023-06-08 07:37] LABS: Albumin Level 2.5 gm/dl (3.4-5.0); Bilirubin,Total 0.9 mg/dl (0.2-1.0); Calcium 6.7 mg/dl (8.6-10.3); Creatinine Clr Calc Pharmacy 43.4 ml/min; Est GFR (African American) 60.8 ml/min; Est GFR (Non-African American) 52.4 ml/min; Globulin 2.4 gm/dl (2.5-4.0); Magnesium 1.5 mg/dl (1.7-2.4); Potassium 3.8 mmol/L (3.5-5.1); Total Protein 4.9 gm/dl (6.0-8.3)
[2023-06-08] MEDS: INSULIN ASPART PER UNIT CHARGE SC SCH ×2 (08:17→12:33)
[2023-06-08] MEDS: CINACALCET HCL 30 MG TAB PO SCH (08:19)
[2023-06-08] MEDS: carvediloL 3.125 MG TAB PO SCH (08:19)
[2023-06-08] MEDS: MAGNESIUM OXIDE 400 MG TAB PO SCH (08:19)
[2023-06-08] MEDS: ASCORBIC ACID 500 MG TAB PO SCH (08:19)
[2023-06-08] MEDS: VITAMIN B COMPLEX TAB PO SCH (08:19)
[2023-06-08] MEDS: ATORVASTATIN 40 MG TAB PO SCH (08:19)
[2023-06-08] MEDS: metroNIDAZOLE 500 MG TAB PO SCH ×2 (08:19→12:59)
[2023-06-08] MEDS: PANTOprazole 40 MG TAB PO SCH (08:20)
[2023-06-08] MEDS: LANTUS PER UNIT CHARGE SC SCH (08:29)
[2023-06-08] MEDS ORDERED: TORSEMIDE 20 MG TAB PO SCH (09:00)
[2023-06-08] MEDS: MAGNESIUM SULFATE / D5W 1 GM/100 ML BAG IV SCH ×2 (10:30→12:29)
--- NOTE | 2023-06-08 10:41 | Discharge Summary ---
Discharge Summary Date of Service June 08, 2023 Notes For Next Care Provider Please closely monitor H/H after discharge, hgb stable at ~8 on discharge Please closely monitor magnesium level and supplement as needed. Has been persistently low, likely with increased dose of needed pantoprazole. Pt's home supplement increased to BID dosing. Please discuss risks and benefits of continuing Plavix with pt, per GI recs. Plavix use on hold until that discussion Please ensure close follow up with GI- will likely require TIPS, repeat endoscopy in 3 months Medication Changes From Visit STOPPED: Alendronate in setting of GI Bleed, per GI CHANGED: Magnesium Oxide to BID dosing Pantoprazole 40mg to BID dosing x 3months (started increased dose on 06/04/23) HELD: Plavix, per GI recommendations until pcp follow up. GI advising further discussion as to risk and benefits of continuing plavix as pt high risk for repeat bleed. NEW: Levaquin 750mg (1 dose) to complete one week of abx prophylaxis in setting of variceal banding/cirrhosis per ID recs (pt received 6 doses of IV rocephin while hospitalized) Admission HPI Per Admitting Provider 82-year-old female with past med history significant for type 2 diabetes, diabetic peripheral angiopathy, hyperlipidemia, hyperparathyroidism, lung nodules, heart failure with preserved ejection fraction, portal hypertension, aortic ectasia, superior mesenteric artery stenosis s/p stent, history of valvular disease, hypertension, history of CVA, history of CAD, GERD, history of pericolonic abscess, history of hepatic cirrhosis, history of GI bleed associated with intestinal diverticulosis, osteoporosis, anemia, visual field loss poststroke, history of hyponatremia presents with rectal bleed. Patient states since last night she had several episodes of small amount of rectal bleed. Also had a few episodes of vomiting but no blood in the vomiting or no black vomitus. Denies any abdominal pain. Normal micturition. Denies chest pain or shortness of breath. No cough. Has some runny nose. Appetite is okay. No difficulty swallowing. No headache. Vision is not that great. States that she is following with ophthalmology. Hemodynamics are okay. 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 Patient was admitted to [facility] on April 24, 2023 for GI bleed and received total of 3 units of PRBC. Was on Sandostatin, Protonix drip and Rocephin. EGD was okay except showing grade 2 esophageal varices. And she was transferred to [place] for possible mesenteric ischemia and ischemic colitis and possible need for IR intervention. GI did colonoscopy which revealed diverticulosis with old bleeding and no active bleeding and there was no evidence of recurrent ischemic colitis. Patient restarted on Plavix and discharged to follow-up with vascular surgery and metoprolol was changed to Coreg. And advised to follow with hepatology for liver cirrhosis. Patient was again admitted to [facility] on May 12, 2023 with acute GI bleeding with a mix of black and bright red blood. She was s/p 2 units of PRBC. EGD was done which was again showed grade 2 esophageal varices. Portal hypertension gastropathy. Normal examined duodenum. Hemoglobin was stabilized and she was again discharged. Patient has had a follow-up appointment with vascular surgery yesterday and plan to follow-up with repeat mesenteric ultrasounds. Patient again comes back today with rectal bleed. Lactic acid is 4.5. But the patient denies any abdominal pain. Hemodynamically stable. She lives with her . Ambulates with a walker. Past medical history. As mentioned above. Past surgical history. Colonoscopy. Partial hysterectomy. Tonsillectomy. Cataracts bilateral. Cholecystectomy. SMA stent. Social history. . Quit smoking 2006. Smoked 3 packs a day for 48 years. Alcohol occasional. No drug use. Family history. Brother had cancer. Diabetes. Father had diabetes. AL. Mother had diabetes. Stroke. Admission Exam Per Admitting Provider General- Not in acute distress Head- atraumatic Eyes- PERRL. ENT- oropharynx clear Neck- supple, no JVD. Lungs- clear to auscultation no wheezing or crackles. Heart- regular rate and rhythm; no murmur, no gallop. Abdomen- normal bowel sounds, soft, nontender, no distension Extremities- no pretibial edema, no erythema seen. Neuro- alert, oriented x 3; PERRL, no facial palsy; no dysarthria; moves extremities. Skin- warm & dry Principal Dx & Hospital Course #1 = Principal Diagnosis (1) Acute GI bleeding: Per admitting provider, brief Hx of pt's course prior to admission: "82 yo F w/ type 2 diabetes, diabetic peripheral angiopathy, hyperlipidemia, hyperparathyroidism, lung nodules, heart failure with preserved ejection fraction, portal hypertension, aortic ectasia, superior mesenteric artery stenosis s/p stent, history of valvular disease, hypertension, history of CVA, history of CAD, GERD, history of pericolonic abscess, history of hepatic cirrhosis, history of GI bleed associated with intestinal diverticulosis, osteoporosis, anemia, visual field loss poststroke, history of hyponatremia admitted with rectal bleed. Shortly after admission pt developed hematemesis and was taken to EGD - underwent esophageal varices banding w/ GI. 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 Patient was admitted to [facility] on April 24, 2023 for GI bleed and received total of 3 units of PRBC. Was on Sandostatin, Protonix drip and Rocephin. EGD was okay except showing grade 2 esophageal varices. And she was transferred to [place] for possible mesenteric ischemia and ischemic colitis and possible need for IR intervention. GI did colonoscopy which revealed diverticulosis with old bleeding and no active bleeding and there was no evidence of recurrent ischemic colitis. Patient restarted on Plavix and discharged to follow-up with vascular surgery and metoprolol was changed to Coreg. And advised to follow with hepatology for liver cirrhosis. Patient was again admitted to [facility] on May 12, 2023 with acute GI bleeding with a mix of black and bright red blood. She was s/p 2 units of PRBC. EGD was done which was again showed grade 2 esophageal varices. Portal hypertension gastropathy. Normal examined duodenum. Hemoglobin was stabilized and she was again discharged. Patient has had a follow-up appointment with vascular surgery yesterday and plan to follow-up with repeat mesenteric ultrasounds." This Admission: Acute GI bleeding Rectal bleed Hematemesis s/p EGD and banding of esophageal varices (06/01/2023) Acute blood loss anemia 2/2 GI bleed Patient had EGD twice recently which showed grade 2 esophageal varices and portal hypertensive gastropathy. Recent colonoscopy showed diverticulosis. Hemoglobin on admission 8.6 -> down to 6.9 on repeat Patient had a small amount of rectal bleeding several times. Then developed hematemesis shortly after admission. Was transfused 2 units of pRBCs on 06/01/23 and 06/04/23 during hospitalization Because of esophageal varices was also treated with Sandostatin drip, PPI drip and Zosyn History of ischemic colitis with SMA stent placement. In April CT scan was unremarkable. Held plavix during hospitalization and on discharge- GI recommending further discussion of risks and benefits in this pt who is high risk for bleed again. PCP discussion with pt advised. GI was consulted as noted above- s/p EGD and banding of esophageal varices (06/01/2023) Findings: "Two columns of large (> 5 mm) varices with stigmata of recent bleeding were found in the lower third of the esophagus, 36 cm from the incisors. Red amalia signs were present. Four bands were successfully placed with complete eradication, resulting in deflation of varices. There was no bleeding during and at the end of the procedure. Type 1 isolated gastric varices (IGV1, varices located in the fundus) with no bleeding were found in the gastric fundus. They were small in largest diameter. Severe portal hypertensive gastropathy was found in the stomach. The duodenal bulb and second portion of the duodenum were normal. Impression: - Large (> 5 mm) esophageal varices with stigmata of recent bleeding. Banded. - IGV1, varices located in the fundus, without bleeding. - Portal hypertensive gastropathy. - Normal duodenal bulb and second portion of the duodenum. - No specimens collected. Recommendation: - Return patient to [facility] for [facility] care. - Clear liquid diet for 2 days, then advance as tolerated to full liquid diet then as tolerated. - Use a proton pump inhibitor IV for 2 days then PO BID for 3 months. - IV Octreotide for 2 days. - IV Ceftriaxone. - Avoid Alendronate. - Continue Coreg. - Need to discuss risk and benefit of continuing Plavix as she is high risk for GI bleeding. - Repeat upper endoscopy in 3 months for retreatment. COMMENT: Patient at risk of worsening portal HTN gastropathy and gastric varices in the future hence may eventually need TIPS if recurrent bleeding develops." In summary recommendations for discharge are: Please closely monitor H/H after discharge, hgb stable at ~8 on discharge Please discuss risks and benefits of continuing Plavix with pt, per GI recs. Plavix use on hold until that discussion Please ensure close follow up with GI- will likely require TIPS, repeat endoscopy in 3 months STOP Alendronate Continue Coreg Pantoprazole 40mg BID x 3 months Received IV Rocephin x 6 doses, discharged with 1 day of po Levaquin per ID recs for a total of 7 days of treatment as pt wanted to be discharged. Close PCP and GI followup Hypomagnesemia Low magnesium levels noted while hospitalized Pt on pantoprazole, known side effect as well Repleted as needed- repleted again on day of discharge with IV supplementation, Mag 1.5 at that time. After discharge, please closely monitor magnesium level and supplement as needed. Magnesium level has been persistently low, likely with increased dose of needed pantoprazole. Pt's home supplement increased to BID dosing. Elevated lactic acidosis Likely 2/2 to above Patient also has liver cirrhosis History of ischemic colitis and SMA stent Patient currently has no abdominal pain mesenteric duplex previously obtained - patent sma stent and proximal sma moderate stenosis repeat lactic acid level improved to 2.1 Resolved Fever Pt developed fever 06/03 AM- had it for one day Was zosyn since admission- transitioned to Rocephin and Flagyl, was on vanc as well which was discontinued. 06/06 previous provider discussed w/ ID - pt no longer febrile. Recommend 1 week of IV ceftriaxone post variceal bleed banding. If pt to be discharged , can switch to Levaquin 750 daily to finish 1 week course. Pt discharged with 1 day of po levaquin Afebrile and able on dcst JANELL Presented with cr 1.4 Held home diuretic and losartan Home diuretic and losartan resumed on discharge Avoid nephrotoxic agents/contrast PCP follow up History of liver cirrhosis Received fluids and diuretic was on hold Home diuretic and losartan resumed on discharge Monitor for volume overload PCP and GI follow up Chronic heart failure with preserved ejection fraction Received fluids and diuretic was on hold Home diuretic and losartan resumed on discharge Monitor for volume overload PCP follow up DMII Hgba1c of 5.6 on 06/02 Hold home medications Lantus and insulin sliding scale per protocol Glycemic pharmacy consult Resume home meds on discharge with pcp follow up History of CAD Holding Plavix as noted above Continue beta-blockers and statin Further discussion with pcp about risk/benefit of plavix use per GI HTN held Losartan and diuretic Home diuretic and losartan resumed on discharge cont. Coreg Discharge Exam General: Alert, oriented. No acute distress Skin: No noted rashes or bruises Psych: Appropriate mood and affect Neuro: No gross deficits while sitting in bed HEENT: NC/AT Chest: Nontender to palpation. CV: RRR Resp: Breath sounds clear bilaterally, no increased effort of breathing. Abdomen: Soft, nontender, nondistended. No guarding. No organomegaly a ppreciated. Extremities: + edema in lower extremities bilaterally. Updated Medication List Medication Instructions Recorded Confirmed Type Osteo Bi-Flex 1 tab PO DAILY 06/01/23 06/01/23 History Vitron-C 1 tab PO DAILY 06/01/23 06/01/23 History alendronate 70 mg tablet 70 mg PO WK 06/01/23 06/01/23 History atorvastatin 40 mg tablet 40 mg PO DAILY 06/01/23 06/01/23 History biotin 1 mg capsule 1 mg PO DAILY 06/01/23 06/01/23 History carvedilol 3.125 mg tablet 3.125 mg PO BID 06/01/23 06/01/23 History cinacalcet 30 mg tablet (Sensipar) 30 mg PO DAILY 06/01/23 06/01/23 History clopidogrel 75 mg tablet 75 mg PO DAILY 06/01/23 06/01/23 History epinephrine 1 mg/mL injection 0.3 mg subcut Q4H PRN Anaphylaxis 06/01/23 06/01/23 History solution insulin human U-100 NPH-regulr 25 unit subcut UD 06/01/23 06/01/23 History 70-30 mix 100 unit/mL subcutaneous susp (Novolin 70/30 U-100 Insulin) losartan 25 mg tablet 25 mg PO DAILY 06/01/23 06/01/23 History melatonin 10 mg tablet 10 mg PO HS PRN Insomnia 06/01/23 06/01/23 History metformin 1,000 mg tablet 1,000 mg PO BID 06/01/23 06/01/23 History xetctxhgbhrr-dhzicjvk-gzvswq tablet 1 tab PO DAILY 06/01/23 06/01/23 History pantoprazole 40 mg tablet,delayed 40 mg PO DAILY 06/01/23 06/01/23 History release torsemide 20 mg tablet 40 mg PO DAILY 06/01/23 06/01/23 History vitamin B complex 1 cap PO DAILY 06/01/23 06/01/23 History levofloxacin 750 mg tablet 750 mg PO DAILY #1 tab 06/08/23 Rx magnesium oxide 400 mg PO BID #60 caps 06/08/23 Rx pantoprazole 40 mg tablet,delayed 40 mg PO BID #60 tabs 06/08/23 Rx release Hospital Stay Data Consultations 06/01/23 04:23 ED Decision to Admit Stat 06/01/23 08:00 Consult Gastroenterology Routine Procedures Performed Operation Date: 06/01/23 12:00 Actual Procedures p EGD with banding of esophageal varices - Kevin Hardwick MD Diagnostic Imagining Performed 06/01/23 05:16 US duplex mesenteric Stat Chest X-Ray 06/01/23 02:42 SINGLE VIEW CHEST CLINICAL HISTORY: Atypical chest pain. FINDINGS: An AP, portable, upright chest radiograph is compared to study dated 05/12/2023. The examination is degraded by portable technique and apical lordotic positioning. The heart is enlarged noting atherosclerotic calcification of the thoracic aorta. The pulmonary vasculature is nondistended congested. Chronic interstitial thickening is similar to previous. There is bibasilar scarring/atelectasis. The lungs and pleural spaces are otherwise clear. No pneumothorax is seen. The skeletal structures are osteopenic. The bony thorax is grossly intact. IMPRESSION: Cardiomegaly with no active disease in the chest. ACT 112: Negative or not required by law. Electronically signed by: Kahlil Mojica M.D. 06/01/2023 8:04 AM Mesenteric US 06/01/23 05:16 US duplex mesenteric HISTORY: 82 years-old Female elevated lactic acid. hx of SMA stenosis s/p stent acute mid abdominal pain COMPARISON: CT 04/24/2023. TECHNIQUE: Multiple real-time sonographic images of the mesenteric vessels were obtained assessing grayscale appearance, color and spectral flow FINDINGS: Limited exam secondary to obscuring bowel gas and patient condition. Elevated peak systolic velocities within the proximal aspect of the superior mesenteric artery measuring up to 381 cm/s, within the mid vessel measured 274 cm/s and within the distal vessel measuring 161 cm/s. No arterial occlusion. Normal waveforms in the abdominal aorta with peak systolic velocities measured at 53 cm/s. Proximal celiac trunk is obscured. Normal waveforms within the mid and distal portions of the vessel with peak systolic velocities measuring 36 and 59 cm/s respectively. Cirrhotic liver. IMPRESSION: 1. Patent superior mesenteric artery and celiac trunk. 2. Elevated peak systolic velocities within the proximal superior mesenteric artery suggests moderate stenosis (50-69%). ACT 112: Negative or not required by law. The above report was generated using voice recognition software. It may contain grammatical, syntax or spelling errors. Electronically signed by: Abhay Smart M.D. 06/01/2023 6:58 AM Chest X-Ray 06/03/23 08:26 XR chest 1V portable HISTORY: fever COMPARISON: Chest 06/01/2023. FINDINGS: No pneumothorax. No pleural effusions. The heart remains mildly enlarged. Chronic interstitial thickening persists. No new focal lung c onsolidations to suggest a pneumonia. No evidence for pulmonary edema. There are calcifications within the aortic knob. No acute fractures identified. IMPRESSION: Stable cardiomegaly. Otherwise, no acute process within the chest. ACT 112: Negative or not required by law. Electronically signed by: Pee Parker M.D. 06/03/2023 8:42 AM Discharge Instructions Given to Patient (Per Discharging Provider) Ms. Russell, You were admitted as you had a GI Bleed. You are anxious to get home and we are discharging you. We ask that you keep close follow up with your [facility] and your primary care provider over the next few days and weeks to come. In particular, your hemoglobin levels will need to be closely monitored to ensure you are not bleeding once more. Your hemoglobin level was stable at 8.3 on discharge and will need to be monitored to ensure it does not fall below 7 as you will need a blood transfusion if it does and to have the source of your bleeding controlled. Your magnesium level was also repeatedly low, likely because of the increased dose of the pantoprazole that Gastroenterology is advising you take for the next 3 months to help with your bleeding. Please keep close follow up to ensure that level is monitored and supplemented as needed. We changed your home dose of your magnesium supplement from daily to twice a day to help with that. Your bladder blower also recommended that you continue advancing your diet as tolerated, you STOP taking your osteoporosis medication Alendronate. They also advise that you discuss the risk and benefits with your primary care provider of taking the blood thinner Plavix as you are high risk for bleeding again. We ask that you do not take your home Plavix until you follow up with your primary care provider to discuss using it further. Gastroenterology also advises that you will need a repeat endoscopy in 3 months and will also likely need what is called a TIPS procedure. They advise continuing your carvedilol medication. Because you had bleeding from your varices and those were "banded", we also treated you with an IV antibiotic to prevent infection. You received 6 days of treatment and we are discharging you home with one more day of the oral antibiotic Levaquin to complete a week of treatment. Once again, please keep close follow up with your primary care provider after discharge. Please do not hesitate to come back to the emergency room if your symptoms worsen or return. It was a pleasure taking care of you while you were here. Total Time Total Time Spent Total Time Spent (In Minutes): > 30 minutes
[2023-06-08] MEDS: CEROVITE ADV FORMULA TAB PO SCH (11:16)
[2023-06-08] MEDS: cefTRIAXone SODIUM 2,000 MG in DEXTROSE 5 % MINI-B 50 ML IV SCH (12:29)
== END 2023-06-08 13:25 | disposition home or self-care (01) | DRG 432 ==
LOC: ED 02:18 → 2E 05:16 → SUATTDRO 05:16 → 2E 06:19
DX: K31.89 Other diseases of stomach and duodenum; N17.9 Acute kidney failure, unspecified; K76.6 Portal hypertension; K92.0 Hematemesis; Z79.4 Long term (current) use of insulin; I69.398 Other sequelae of cerebral infarction; E87.20 Acidosis, unspecified; E83.42 Hypomagnesemia; K74.60 Unspecified cirrhosis of liver; E21.3 Hyperparathyroidism, unspecified; R50.9 Fever, unspecified; Z79.02 Long term (current) use of antithrombotics/antiplatelets; I25.10 Atherosclerotic heart disease of native coronary artery without angina pectoris; E11.51 Type 2 diabetes mellitus with diabetic peripheral angiopathy without gangrene; E78.5 Hyperlipidemia, unspecified; I50.32 Chronic diastolic (congestive) heart failure; Z87.891 Personal history of nicotine dependence; Z95.5 Presence of coronary angioplasty implant and graft; I85.11 Secondary esophageal varices with bleeding; D62 Acute posthemorrhagic anemia

== ENCOUNTER 2023-06-20 07:21 | Inpatient (IN) ==
--- NOTE | 2023-06-20 07:33 | Emergency Department Note ---
History of Present Illness General Chief complaint: GI Bleed Stated complaint: LOWER GI BLEED, DIZZINESS Time Seen by Provider: 06/20/23 07:27 History of Present Illness 82-year-old female who presents to the emergency department for evaluation of GI bleed. Patient has a history of hepatic cirrhosis, esophageal varices, and diverticulosis and has been evaluated in our emergency department recently in the past for similar complaints. Most recent episode 06/01/2023 and was discharged home on 06/08. She follows closely with Hasmukh LOZA. She was discharged home on Levaquin x1 week as well. Patient reports 1 small episode of bright red blood in her stool last evening. She states then at 6 AM this morning she had a BM where she was "gushing red blood" prompting evaluation. She notes associated dizziness. She denies fever/chills, nausea/vomiting, chest pain, shortness of breath, abdominal pain, urinary symptoms. No hematuria. She states that GI placed her on a baby aspirin instead of restarting her Plavix. She finished her antibiotic as prescribed. Home Medications Medication Instructions Recorded Confirmed Type Osteo Bi-Flex 1 tab PO DAILY 06/01/23 06/20/23 History Vitron-C 1 tab PO DAILY 06/01/23 06/20/23 History atorvastatin 40 mg tablet 40 mg PO DAILY 06/01/23 06/20/23 History biotin 1 mg capsule 1 mg PO DAILY 06/01/23 06/20/23 History carvedilol 3.125 mg tablet 3.125 mg PO BID 06/01/23 06/20/23 History cinacalcet 30 mg tablet (Sensipar) 30 mg PO DAILY 06/01/23 06/20/23 History clopidogrel 75 mg tablet 75 mg PO DAILY 06/01/23 06/20/23 History epinephrine 1 mg/mL injection 0.3 mg subcut Q4H PRN Anaphylaxis 06/01/23 06/20/23 History solution insulin human U-100 NPH-regulr 25 unit subcut UD 06/01/23 06/20/23 History 70-30 mix 100 unit/mL subcutaneous susp (Novolin 70/30 U-100 Insulin) losartan 25 mg tablet 25 mg PO DAILY 06/01/23 06/20/23 History melatonin 10 mg tablet 10 mg PO HS PRN Insomnia 06/01/23 06/20/23 History metformin 1,000 mg tablet 1,000 mg PO BID 06/01/23 06/20/23 History qviyfmfelyqc-qxtefxse-oanebw tablet 1 tab PO DAILY 06/01/23 06/20/23 History torsemide 20 mg tablet 40 mg PO DAILY 06/01/23 06/20/23 History vitamin B complex 1 cap PO DAILY 06/01/23 06/20/23 History magnesium oxide 400 mg PO BID #60 caps 06/08/23 06/20/23 Rx pantoprazole 40 mg tablet,delayed 40 mg PO BID #60 tabs 06/08/23 06/20/23 Rx release Allergies Allergy/AdvReac Type Severity Reaction Status Date / Time nickel Allergy "Cheap Verified 06/05/23 08:36 metal = rash" Past Med/Surg History Medical History Encounter for pre-operative examination Hepatic cirrhosis History of ischemic colitis GI bleed pt unaware CHF (congestive heart failure) Anemia Osteoporosis GERD (gastroesophageal reflux disease) Hyperparathyroidism Hypertension Poor historian Abnormal EKG pt unaware Acute respiratory failure CVA (cerebral vascular accident) Jan 2022 per pt > has some right hand weakness > does not follow with neuro Weakness of right upper extremity s/p CVA, just on occasion Lumbago Other and unspecified hyperlipidemia Type 2 diabetes mellitus without complications Essential (primary) hypertension Coronary atherosclerosis of lummi coronary vessel Acute heart failure with preserved ejection fraction (HFpEF) pt unaware Acute respiratory failure with hypoxia pt unaware Surgical History History of colonoscopy History of endovascular stent graft for abdominal aortic aneurysm unsure if this is exactly what she has, but had done in Apr 2022 at [facility] she thinks it was for AAA S/P tonsillectomy S/P hysterectomy S/P appendectomy History of heart artery stent placed 1994 S/P cholecystectomy History of cataract surgery bilat Family History Mother , age 70 of a stroke and congestive heart failure Stroke CHF (congestive heart failure) Father , in his 70s of an PR Myocardial infarction Social History Smoking Status: Never smoker packs per day: 4; Second Hand Exposure: No; Do You Dip or Chew Tobacco: No; Hx Alcohol Use: No Hx Substance Use: No Preferred Language: Chinese Communication Ability: Effective Certified Orthotist Required: No Beliefs That Will Affect Care: None marital status: Current Living Situation: Spouse current occupational status: retired current occupation: Multiple different jobs retiring in her 50s. Feels Safe at Home: Yes Assistive Devices: Walker Physical Exam Vital Signs Vital Signs - 24 hr 06/20/23 07:40 06/20/23 07:49 06/20/23 07:49 Temperature 36.9 C Temperature Source Oral Pulse Rate 84 83 Pulse Rate [Apical] Pulse Rate from SpO2 Sensor Pulse Rhythm Pulse Strength Respiratory Rate 19 18 Respiratory Effort / Characteristics Non-Labored Spontaneous Respiratory Depth Normal Blood Pressure 113/52 L 119/45 L Blood Pressure [Right Arm] Blood Pressure Mean 72 72 Blood Pressure Mean [Right Arm] Blood Pressure Position Lying Blood Pressure Position [Right Arm] Pulse Oximetry 100 Oxygen Delivery Method Room Air Sepsis Recent Fever Within 48 Hours No Sepsis New/Unexplained Change in Mental Status No Sepsis Action Taken by Nursing No Action Required 06/20/23 07:49 06/20/23 07:50 06/20/23 08:00 Temperature Temperature Source Pulse Rate 82 84 Pulse Rate [Apical] Pulse Rate from SpO2 Sensor 82 84 Pulse Rhythm Pulse Strength Respiratory Rate 17 17 Respiratory Effort / Characteristics Respiratory Depth Blood Pressure 108/80 Blood Pressure [Right Arm] Blood Pressure Mean 85 Blood Pressure Mean [Right Arm] Blood Pressure Position Blood Pressure Position [Right Arm] Pulse Oximetry 100 100 Oxygen Delivery Method Sepsis Recent Fever Within 48 Hours Sepsis New/Unexplained Change in Mental Status Sepsis Action Taken by Nursing 06/20/23 08:00 06/20/23 08:05 06/20/23 08:10 Temperature Temperature Source Pulse Rate 82 86 Pulse Rate [Apical] 88 Pulse Rate from SpO2 Sensor 86 Pulse Rhythm Pulse Strength Respiratory Rate 16 18 25 H Respiratory Effort / Characteristics Non-Labored Spontaneous Respiratory Depth Normal Blood Pressure Blood Pressure [Right Arm] 108/80 Blood Pressure Mean Blood Pressure Mean [Right Arm] 89 Blood Pressure Position Blood Pressure Position [Right Arm] Lying Pulse Oximetry 100 100 Oxygen Delivery Method Room Air Sepsis Recent Fever Within 48 Hours Sepsis New/Unexplained Change in Mental Status Sepsis Action Taken by Nursing 06/20/23 08:20 06/20/23 08:29 06/20/23 08:30 Temperature Temperature Source Pulse Rate 87 86 Pulse Rate [Apical] Pulse Rate from SpO2 Sensor 86 Pulse Rhythm Pulse Strength Respiratory Rate 15 Respiratory Effort / Characteristics Respiratory Depth Blood Pressure 122/67 Blood Pressure [Right Arm] Blood Pressure Mean 85 Blood Pressure Mean [Right Arm] Blood Pressure Position Blood Pressure Position [Right Arm] Pulse Oximetry 100 Oxygen Delivery Method Sepsis Recent Fever Within 48 Hours Sepsis New/Unexplained Change in Mental Status Sepsis Action Taken by Nursing 06/20/23 08:30 06/20/23 08:40 06/20/23 08:45 Temperature Temperature Source Pulse Rate 85 91 H Pulse Rate [Apical] 87 Pulse Rate from SpO2 Sensor 85 91 H Pulse Rhythm Pulse Strength Respiratory Rate 12 23 18 Respiratory Effort / Characteristics Non-Labored Spontaneous Respiratory Depth Normal Blood Pressure Blood Pressure [Right Arm] 122/67 Blood Pressure Mean Blood Pressure Mean [Right Arm] 85 Blood Pressure Position Blood Pressure Position [Right Arm] Lying Pulse Oximetry 100 100 100 Oxygen Delivery Method Room Air Sepsis Recent Fever Within 48 Hours Sepsis New/Unexplained Change in Mental Status Sepsis Action Taken by Nursing 06/20/23 08:50 06/20/23 09:00 06/20/23 09:00 Temperature Temperature Source Pulse Rate 91 H 89 Pulse Rate [Apical] Pulse Rate from SpO2 Sensor 89 89 Pulse Rhythm Pulse Strength Respiratory Rate 17 18 Respiratory Effort / Characteristics Respiratory Depth Blood Pressure 122/70 Blood Pressure [Right Arm] Blood Pressure Mean 74 Blood Pressure Mean [Right Arm] Blood Pressure Position Blood Pressure Position [Right Arm] Pulse Oximetry 98 99 Oxygen Delivery Method Sepsis Recent Fever Within 48 Hours Sepsis New/Unexplained Change in Mental Status Sepsis Action Taken by Nursing 06/20/23 09:10 06/20/23 09:20 06/20/23 09:27 Temperature Temperature Source Pulse Rate 95 H 87 Pulse Rate [Apical] Pulse Rate from SpO2 Sensor 95 H 88 Pulse Rhythm Pulse Strength Respiratory Rate 23 14 Respiratory Effort / Characteristics Respiratory Depth Blood Pressure 130/53 L Blood Pressure [Right Arm] Blood Pressure Mean 100 Blood Pressure Mean [Right Arm] Blood Pressure Position Blood Pressure Position [Right Arm] Pulse Oximetry 89 L 100 Oxygen Delivery Method Sepsis Recent Fever Within 48 Hours Sepsis New/Unexplained Change in Mental Status Sepsis Action Taken by Nursing 06/20/23 09:27 06/20/23 09:28 06/20/23 09:30 Temperature 36.8 C 36.8 C Temperature Source Oral Oral Pulse Rate 88 88 Pulse Rate [Apical] 89 Pulse Rate from SpO2 Sensor 88 Pulse Rhythm Pulse Strength Respiratory Rate 22 18 18 Respiratory Effort / Characteristics Non-Labored Spontaneous Respiratory Depth Normal Blood Pressure 126/53 L Blood Pressure [Right Arm] 130/53 L Blood Pressure Mean 77 Blood Pressure Mean [Right Arm] 78 Blood Pressure Position Lying Blood Pressure Position [Right Arm] Lying Pulse Oximetry 100 100 100 Oxygen Delivery Method Room Air Sepsis Recent Fever Within 48 Hours Sepsis New/Unexplained Change in Mental Status Sepsis Action Taken by Nursing 06/20/23 09:30 06/20/23 09:30 06/20/23 09:33 Temperature Temperature Source Pulse Rate 90 Pulse Rate [Apical] Pulse Rate from SpO2 Sensor 91 H Pulse Rhythm Pulse Strength Respiratory Rate 21 Respiratory Effort / Characteristics Respiratory Depth Blood Pressure 126/53 L 128/81 Blood Pressure [Right Arm] Blood Pressure Mean 82 86 Blood Pressure Mean [Right Arm] Blood Pressure Position Blood Pressure Position [Right Arm] Pulse Oximetry 100 Oxygen Delivery Method Sepsis Recent Fever Within 48 Hours Sepsis New/Unexplained Change in Mental Status Sepsis Action Taken by Nursing 06/20/23 09:33 06/20/23 09:40 06/20/23 09:40 Temperature Temperature Source Pulse Rate 91 H 89 Pulse Rate [Apical] Pulse Rate from SpO2 Sensor 90 90 Pulse Rhythm Pulse Strength Respiratory Rate 13 17 Respiratory Effort / Characteristics Respiratory Depth Blood Pressure 144/67 H Blood Pressure [Right Arm] Blood Pressure Mean 113 Blood Pressure Mean [Right Arm] Blood Pressure Position Blood Pressure Position [Right Arm] Pulse Oximetry 100 100 Oxygen Delivery Method Sepsis Recent Fever Within 48 Hours Sepsis New/Unexplained Change in Mental Status Sepsis Action Taken by Nursing 06/20/23 09:45 06/20/23 09:45 06/20/23 09:50 Temperature 36.3 C L Temperature Source Oral Pulse Rate 89 89 Pulse Rate [Apical] Pulse Rate from SpO2 Sensor 87 Pulse Rhythm Regular Pulse Strength Normal Respiratory Rate 15 19 Respiratory Effort / Characteristics Respiratory Depth Blood Pressure 133/56 L 133/56 L Blood Pressure [Right Arm] Blood Pressure Mean 82 81 Blood Pressure Mean [Right Arm] Blood Pressure Position Lying Blood Pressure Position [Right Arm] Pulse Oximetry 100 98 Oxygen Delivery Method Sepsis Recent Fever Within 48 Hours Sepsis New/Unexplained Change in Mental Status Sepsis Action Taken by Nursing 06/20/23 09:50 06/20/23 10:00 06/20/23 10:00 Temperature Temperature Source Pulse Rate 87 89 Pulse Rate [Apical] Pulse Rate from SpO2 Sensor 87 89 Pulse Rhythm Pulse Strength Respiratory Rate 22 18 Respiratory Effort / Characteristics Respiratory Depth Blood Pressure 126/60 Blood Pressure [Right Arm] Blood Pressure Mean 84 Blood Pressure Mean [Right Arm] Blood Pressure Position Blood Pressure Position [Right Arm] Pulse Oximetry 98 100 Oxygen Delivery Method Sepsis Recent Fever Within 48 Hours Sepsis New/Unexplained Change in Mental Status Sepsis Action Taken by Nursing 06/20/23 10:05 06/20/23 10:06 06/20/23 10:06 Temperature 36.5 C Temperature Source Oral Pulse Rate 90 92 H Pulse Rate [Apical] Pulse Rate from SpO2 Sensor Pulse Rhythm Pulse Strength Respiratory Rate 18 19 Respiratory Effort / Characteristics Respiratory Depth Blood Pressure 134/47 L 134/47 L Blood Pressure [Right Arm] Blood Pressure Mean 76 85 Blood Pressure Mean [Right Arm] Blood Pressure Position Lying Blood Pressure Position [Right Arm] Pulse Oximetry 100 Oxygen Delivery Method Sepsis Recent Fever Within 48 Hours Sepsis New/Unexplained Change in Mental Status Sepsis Action Taken by Nursing 06/20/23 10:10 06/20/23 10:18 06/20/23 10:18 Temperature Temperature Source Pulse Rate 89 88 Pulse Rate [Apical] Pulse Rate from SpO2 Sensor 89 88 Pulse Rhythm Pulse Strength Respiratory Rate 17 21 Respiratory Effort / Characteristics Respiratory Depth Blood Pressure 111/62 Blood Pressure [Right Arm] Blood Pressure Mean 84 Blood Pressure Mean [Right Arm] Blood Pressure Position Blood Pressure Position [Right Arm] Pulse Oximetry 100 98 Oxygen Delivery Method Sepsis Recent Fever Within 48 Hours Sepsis New/Unexplained Change in Mental Status Sepsis Action Taken by Nursing 06/20/23 10:20 06/20/23 10:30 06/20/23 10:30 Temperature Temperature Source Pulse Rate 89 88 Pulse Rate [Apical] Pulse Rate from SpO2 Sensor 89 86 Pulse Rhythm Pulse Strength Respiratory Rate 19 19 Respiratory Effort / Characteristics Respiratory Depth Blood Pressure 162/75 H Blood Pressure [Right Arm] Blood Pressure Mean 129 Blood Pressure Mean [Right Arm] Blood Pressure Position Blood Pressure Position [Right Arm] Pulse Oximetry 100 100 Oxygen Delivery Method Sepsis Recent Fever Within 48 Hours Sepsis New/Unexplained Change in Mental Status Sepsis Action Taken by Nursing 06/20/23 10:32 06/20/23 10:32 06/20/23 10:35 Temperature 36.6 C Temperature Source Oral Pulse Rate 86 89 Pulse Rate [Apical] Pulse Rate from SpO2 Sensor 86 Pulse Rhythm Pulse Strength Respiratory Rate 23 18 Respiratory Effort / Characteristics Respiratory Depth Blood Pressure 158/75 H 158/75 H Blood Pressure [Right Arm] Blood Pressure Mean 117 102 Blood Pressure Mean [Right Arm] Blood Pressure Position Lying Blood Pressure Position [Right Arm] Pulse Oximetry 100 99 Oxygen Delivery Method Sepsis Recent Fever Within 48 Hours Sepsis New/Unexplained Change in Mental Status Sepsis Action Taken by Nursing 06/20/23 10:40 06/20/23 10:45 06/20/23 10:45 Temperature Temperature Source Pulse Rate 89 87 Pulse Rate [Apical] Pulse Rate from SpO2 Sensor 89 88 Pulse Rhythm Pulse Strength Respiratory Rate 14 20 Respiratory Effort / Characteristics Respiratory Depth Blood Pressure 143/58 H Blood Pressure [Right Arm] Blood Pressure Mean 82 Blood Pressure Mean [Right Arm] Blood Pressure Position Blood Pressure Position [Right Arm] Pulse Oximetry 96 92 Oxygen Delivery Method Sepsis Recent Fever Within 48 Hours Sepsis New/Unexplained Change in Mental Status Sepsis Action Taken by Nursing 06/20/23 10:50 06/20/23 11:00 06/20/23 11:00 Temperature Temperature Source Pulse Rate 90 89 Pulse Rate [Apical] Pulse Rate from SpO2 Sensor 89 87 Pulse Rhythm Pulse Strength Respiratory Rate 11 L 19 Respiratory Effort / Characteristics Respiratory Depth Blood Pressure 132/61 Blood Pressure [Right Arm] Blood Pressure Mean 103 Blood Pressure Mean [Right Arm] Blood Pressure Position Blood Pressure Position [Right Arm] Pulse Oximetry 100 91 Oxygen Delivery Method Sepsis Recent Fever Within 48 Hours Sepsis New/Unexplained Change in Mental Status Sepsis Action Taken by Nursing 06/20/23 11:02 06/20/23 11:10 06/20/23 11:20 Temperature 36.8 C Temperature Source Oral Pulse Rate 95 H 92 H Pulse Rate [Apical] 88 Pulse Rate from SpO2 Sensor 95 H 91 H Pulse Rhythm Pulse Strength Respiratory Rate 18 21 19 Respiratory Effort / Characteristics Non-Labored Spontaneous Respiratory Depth Normal Blood Pressure Blood Pressure [Right Arm] 132/61 Blood Pressure Mean Blood Pressure Mean [Right Arm] 84 Blood Pressure Position Blood Pressure Position [Right Arm] Lying Pulse Oximetry 98 97 87 L Oxygen Delivery Method Room Air Sepsis Recent Fever Within 48 Hours Sepsis New/Unexplained Change in Mental Status Sepsis Action Taken by Nursing 06/20/23 11:30 06/20/23 11:30 06/20/23 11:40 Temperature Temperature Source Pulse Rate 92 H 95 H Pulse Rate [Apical] Pulse Rate from SpO2 Sensor 92 H 95 H Pulse Rhythm Pulse Strength Respiratory Rate 10 L 23 Respiratory Effort / Characteristics Respiratory Depth Blood Pressure 127/55 L Blood Pressure [Right Arm] Blood Pressure Mean 86 Blood Pressure Mean [Right Arm] Blood Pressure Position Blood Pressure Position [Right Arm] Pulse Oximetry 95 93 Oxygen Delivery Method Sepsis Recent Fever Within 48 Hours Sepsis New/Unexplained Change in Mental Status Sepsis Action Taken by Nursing 06/20/23 11:50 06/20/23 11:55 06/20/23 11:55 Temperature Temperature Source Pulse Rate 92 H 89 Pulse Rate [Apical] Pulse Rate from SpO2 Sensor 92 H 90 Pulse Rhythm Pulse Strength Respiratory Rate 20 17 Respiratory Effort / Characteristics Respiratory Depth Blood Pressure 134/60 Blood Pressure [Right Arm] Blood Pressure Mean 77 Blood Pressure Mean [Right Arm] Blood Pressure Position Blood Pressure Position [Right Arm] Pulse Oximetry 99 100 Oxygen Delivery Method Sepsis Recent Fever Within 48 Hours Sepsis New/Unexplained Change in Mental Status Sepsis Action Taken by Nursing 06/20/23 11:56 06/20/23 12:00 06/20/23 12:00 Temperature 36.7 C Temperature Source Oral Pulse Rate 90 90 Pulse Rate [Apical] Pulse Rate from SpO2 Sensor 90 Pulse Rhythm Pulse Strength Respiratory Rate 14 14 Respiratory Effort / Characteristics Respiratory Depth Blood Pressure 134/90 135/61 Blood Pressure [Right Arm] Blood Pressure Mean 104 94 Blood Pressure Mean [Right Arm] Blood Pressure Position Blood Pressure Position [Right Arm] Pulse Oximetry 100 100 Oxygen Delivery Method Sepsis Recent Fever Within 48 Hours Sepsis New/Unexplained Change in Mental Status Sepsis Action Taken by Nursing 06/20/23 12:10 06/20/23 12:15 06/20/23 12:15 Temperature 36.7 C Temperature Source Oral Pulse Rate 89 87 88 Pulse Rate [Apical] Pulse Rate from SpO2 Sensor 88 88 Pulse Rhythm Pulse Strength Respiratory Rate 14 17 16 Respiratory Effort / Characteristics Respiratory Depth Blood Pressure 140/56 L Blood Pressure [Right Arm] Blood Pressure Mean 84 Blood Pressure Mean [Right Arm] Blood Pressure Position Blood Pressure Position [Right Arm] Pulse Oximetry 100 99 100 Oxygen Delivery Method Sepsis Recent Fever Within 48 Hours Sepsis New/Unexplained Change in Mental Status Sepsis Action Taken by Nursing 06/20/23 12:15 06/20/23 12:20 06/20/23 12:30 Temperature Temperature Source Pulse Rate 87 Pulse Rate [Apical] Pulse Rate from SpO2 Sensor 87 Pulse Rhythm Pulse Strength Respiratory Rate 17 Respiratory Effort / Characteristics Respiratory Depth Blood Pressure 140/56 L 137/67 Blood Pressure [Right Arm] Blood Pressure Mean 82 119 Blood Pressure Mean [Right Arm] Blood Pressure Position Blood Pressure Position [Right Arm] Pulse Oximetry 100 Oxygen Delivery Method Sepsis Recent Fever Within 48 Hours Sepsis New/Unexplained Change in Mental Status Sepsis Action Taken by Nursing 06/20/23 12:30 06/20/23 12:30 06/20/23 12:30 Temperature 36.7 C Temperature Source Oral Pulse Rate 88 87 Pulse Rate [Apical] Pulse Rate from SpO2 Sensor 89 Pulse Rhythm Pulse Strength Respiratory Rate 17 17 Respiratory Effort / Characteristics Respiratory Depth Blood Pressure 137/67 Blood Pressure [Right Arm] Blood Pressure Mean 90 Blood Pressure Mean [Right Arm] Blood Pressure Position Blood Pressure Position [Right Arm] Pulse Oximetry 99 100 Oxygen Delivery Method Sepsis Recent Fever Within 48 Hours Sepsis New/Unexplained Change in Mental Status Sepsis Action Taken by Nursing 06/20/23 12:39 06/20/23 12:40 06/20/23 12:50 Temperature Temperature Source Pulse Rate 85 85 87 Pulse Rate [Apical] Pulse Rate from SpO2 Sensor 85 88 Pulse Rhythm Pulse Strength Respiratory Rate 18 15 Respiratory Effort / Characteristics Respiratory Depth Blood Pressure Blood Pressure [Right Arm] Blood Pressure Mean Blood Pressure Mean [Right Arm] Blood Pressure Position Blood Pressure Position [Right Arm] Pulse Oximetry 100 96 Oxygen Delivery Method Sepsis Recent Fever Within 48 Hours Sepsis New/Unexplained Change in Mental Status Sepsis Action Taken by Nursing 06/20/23 13:00 06/20/23 13:00 06/20/23 13:10 Temperature Temperature Source Pulse Rate 93 H 90 Pulse Rate [Apical] Pulse Rate from SpO2 Sensor 93 H 90 Pulse Rhythm Pulse Strength Respiratory Rate 16 16 Respiratory Effort / Characteristics Respiratory Depth Blood Pressure 129/59 L Blood Pressure [Right Arm] Blood Pressure Mean 99 Blood Pressure Mean [Right Arm] Blood Pressure Position Blood Pressure Position [Right Arm] Pulse Oximetry 80 L 100 Oxygen Delivery Method Sepsis Recent Fever Within 48 Hours Sepsis New/Unexplained Change in Mental Status Sepsis Action Taken by Nursing 06/20/23 13:20 06/20/23 13:30 06/20/23 13:30 Temperature Temperature Source Pulse Rate 89 90 Pulse Rate [Apical] Pulse Rate from SpO2 Sensor 89 90 Pulse Rhythm Pulse Strength Respiratory Rate 14 15 Respiratory Effort / Characteristics Respiratory Depth Blood Pressure 139/66 Blood Pressure [Right Arm] Blood Pressure Mean 111 Blood Pressure Mean [Right Arm] Blood Pressure Position Blood Pressure Position [Right Arm] Pulse Oximetry 100 100 Oxygen Delivery Method Sepsis Recent Fever Within 48 Hours Sepsis New/Unexplained Change in Mental Status Sepsis Action Taken by Nursing 06/20/23 13:40 06/20/23 13:49 Temperature 36.5 C Temperature Source Oral Pulse Rate 90 89 Pulse Rate [Apical] Pulse Rate from SpO2 Sensor 90 Pulse Rhythm Pulse Strength Respiratory Rate 19 18 Respiratory Effort / Characteristics Respiratory Depth Blood Pressure 139/66 Blood Pressure [Right Arm] Blood Pressure Mean 90 Blood Pressure Mean [Right Arm] Blood Pressure Position Blood Pressure Position [Right Arm] Pulse Oximetry 99 99 Oxygen Delivery Method Sepsis Recent Fever Within 48 Hours Sepsis New/Unexplained Change in Mental Status Sepsis Action Taken by Nursing Constitutional: alert and oriented x3. no acute distress. nontoxic HEENT: normocephalic, atraumatic. normal conjunctiva.PERRLA. EOM's grossly intact. Respiratory: lungs are clear to auscultation without wheezes, rhonchi, or rales bilaterally. equal chest rise. normal respiratory effort, no accessory muscle use. Cardiovascular: normal heart sounds without murmur. regular rate and rhythm. GI: abdomen is soft, nontender. No palpable masses. No rebound tenderness or guarding. No CVA tenderness MSK: Moves all 4 extremities spontaneously Peripheral vascular: extremities warm and well perfused Psych:appropriate mood and affect. Course Administered Medications Pantoprazole Sodium 40 mg/ (Dextrose) 100 mls @ 20 mls/hr IV Q5H [facility] Stop: 07/20/23 09:44 Last Admin: 06/20/23 10:43 Dose: 8 mg/hr, 20 mls/hr Documented By: CC Octreotide Acetate 500 mcg/ (Sodium Chloride) 100.5 mls @ 10.05 mls/hr IV .Q10H [facility] Stop: 07/20/23 09:44 Last Admin: 06/20/23 10:32 Dose: 50 mcg/hr, 10.1 mls/hr Documented By: CC Ceftriaxone Sodium 1,000 mg/ (Dextrose) 50 mls @ 100 mls/hr IV Q24H [facility]; Protocol Stop: 06/30/23 09:44 Last Infusion: 06/20/23 11:16 Dose: Infused Documented By: Admin: 06/20/23 10:44 Dose: 100 mls/hr Documented By: CC Discontinued Medications Sodium Chloride (Nss) 500 mls @ 999 mls/hr IV .Q31M ONE Stop: 06/20/23 08:06 Last Infusion: 06/20/23 09:40 Dose: Infused Documented By: Admin: 06/20/23 08:05 Dose: 999 mls/hr Documented By: CC Pantoprazole Sodium 40 mg/ (Syringe) 10 mls @ 5 mls/min IV NOW ONE Stop: 06/20/23 09:01 Last Admin: 06/20/23 09:41 Dose: 5 mls/min Documented By: CHRISSIEW Pantoprazole Sodium 80 mg/ (Dextrose) 120 mls @ 480 mls/hr IV ONE STA Stop: 06/20/23 09:52 Last Infusion: 06/20/23 10:51 Dose: Infused Documented By: Admin: 06/20/23 10:21 Dose: 480 mls/hr Documented By: CC Octreotide Acetate 50 mcg/ (Syringe) 10 mls @ 3 mls/min IV ONE STA Stop: 06/20/23 09:41 Last Admin: 06/20/23 10:23 Dose: 3 mls/min Documented By: CC Medical Decision Making Differential Diagnosis Diverticulosis, AVM, colopathy, colitis, IBD, malignancy, Alejandra-Arroyo tear, esophagitis, PUD, variceal bleed, gastritis, hemorrhoids as well as other pathologies Laboratory Data Attestation: I reviewed the patient's lab results. 06/20/23 07:48 06/20/23 07:48 Lab Results 06/20/23 06/20/23 06/20/23 Range/Units 07:35 07:48 08:34 WBC 4.95 (4.8-10.8) K/ul RBC 2.35 L (4.20-5.40) M/uL Hgb 6.6 L* (12.0-16.0) g/dl POC Hgb 6.5 L* (12.0-16.0) g/dl Hct 19.9 L* (37.0-47.0) % POC Hct 19 L* (37-47) % MCV 84.7 (80.0-100.0) fL MCH 28.1 (25.0-34.0) pg MCHC 33.2 (32.0-36.0) g/dL RDW Std Deviation 49.0 H (36.4-46.3) fL RDW Coeff of Vanita 16.0 H (11.5-14.5) % Plt Count 123 L (130-400) K/uL MPV 12.5 H (9.4-12.4) fL Immature Gran % (Auto) 0.2 % Neut % (Auto) 55.2 % Lymph % (Auto) 28.7 % Washburn % (Auto) 11.7 % Eos % (Auto) 3.6 % Baso % (Auto) 0.6 % Neut # (Auto) 2.73 (1.40-6.50) K/uL Lymph # (Auto) 1.42 (1.20-3.40) K/uL Washburn # (Auto) 0.58 (0.11-0.59) K/uL Eos # (Auto) 0.18 (0.00-0.50) K/uL Baso # (Auto) 0.03 (0.00-0.20) K/uL Immature Gran # (Auto) 0.01 (0.01-0.20) K/uL Toxic Vacuolation 1+ PT 14.0 H (9.0-12.0) Seconds INR 1.3 H (0.9-1.1) POC Sodium 137 (135-144) mmol/L Sodium 137 (136-145) mmol/L POC Potassium 4.5 (3.3-5.0) mmol/L Potassium 4.5 (3.5-5.1) mmol/L POC Chloride 98 L (101-112) mmol/L Chloride 99 (98-107) mmol/L Carbon Dioxide 28 (21-32) mmol/L POC Total CO2 27 (24-31) mmol/L Anion Gap 10 (3-11) POC Anion Gap 18.0 (16-25) mmol/L POC BUN 40 H (7-18) mg/dl BUN 40 H (6-23) mg/dl Creatinine 1.89 H (0.6-1.2) mg/dl POC Creatinine 2.2 H (0.6-1.3) mg/dl Est Cr Clr Drug Dosing 22.2 ml/min Est GFR ( Amer) 28.1 ml/min Est GFR (Non-Af Amer) 24.3 ml/min BUN/Creatinine Ratio 21.2 H (10-20) Glucose 102 H (70-99(Fasting)) mg/dl POC Glucose (other) 100 H (70-99) mg/dl Lactate 3.8 H* (0.4-2.0) mmol/L Calcium 8.9 (8.6-10.3) mg/dl POC Ioniz Calcium Cony 1.09 L (1.12-1.32) mmol/l Magnesium 1.4 L (1.7-2.4) mg/dl Total Bilirubin 0.8 (0.2-1.0) mg/dl AST 37 (13-39) U/L ALT 22 (7-52) U/L Alkaline Phosphatase 41 (34-104) U/L Total Protein 5.3 L (6.0-8.3) gm/dl Albumin 2.8 L (3.4-5.0) gm/dl Globulin 2.5 (2.5-4.0) gm/dl Albumin/Globulin Ratio 1.1 (0.9-2) Lipase 34 (11-82) U/L SARS-CoV-2, RNA, NAAT (NEGATIVE) Blood Type A Positive Antibody Screen NEGATIVE Crossmatch See Detail 06/20/23 Range/Units Unknown WBC (4.8-10.8) K/ul RBC (4.20-5.40) M/uL Hgb (12.0-16.0) g/dl POC Hgb (12.0-16.0) g/dl Hct (37.0-47.0) % POC Hct (37-47) % MCV (80.0-100.0) fL MCH (25.0-34.0) pg MCHC (32.0-36.0) g/dL RDW Std Deviation (36.4-46.3) fL RDW Coeff of Vanita (11.5-14.5) % Plt Count (130-400) K/uL MPV (9.4-12.4) fL Immature Gran % (Auto) % Neut % (Auto) % Lymph % (Auto) % Washburn % (Auto) % Eos % (Auto) % Baso % (Auto) % Neut # (Auto) (1.40-6.50) K/uL Lymph # (Auto) (1.20-3.40) K/uL Washburn # (Auto) (0.11-0.59) K/uL Eos # (Auto) (0.00-0.50) K/uL Baso # (Auto) (0.00-0.20) K/uL Immature Gran # (Auto) (0.01-0.20) K/uL Toxic Vacuolation PT (9.0-12.0) Seconds INR (0.9-1.1) POC Sodium (135-144) mmol/L Sodium (136-145) mmol/L POC Potassium (3.3-5.0) mmol/L Potassium (3.5-5.1) mmol/L POC Chloride (101-112) mmol/L Chloride (98-107) mmol/L Carbon Dioxide (21-32) mmol/L POC Total CO2 (24-31) mmol/L Anion Gap (3-11) POC Anion Gap (16-25) mmol/L POC BUN (7-18) mg/dl BUN (6-23) mg/dl Creatinine (0.6-1.2) mg/dl POC Creatinine (0.6-1.3) mg/dl Est Cr Clr Drug Dosing ml/min Est GFR ( Amer) ml/min Est GFR (Non-Af Amer) ml/min BUN/Creatinine Ratio (10-20) Glucose (70-99(Fasting)) mg/dl POC Glucose (other) (70-99) mg/dl Lactate (0.4-2.0) mmol/L Calcium (8.6-10.3) mg/dl POC Ioniz Calcium Cony (1.12-1.32) mmol/l Magnesium (1.7-2.4) mg/dl Total Bilirubin (0.2-1.0) mg/dl AST (13-39) U/L ALT (7-52) U/L Alkaline Phosphatase (34-104) U/L Total Protein (6.0-8.3) gm/dl Albumin (3.4-5.0) gm/dl Globulin (2.5-4.0) gm/dl Albumin/Globulin Ratio (0.9-2) Lipase (11-82) U/L SARS-CoV-2, RNA, NAAT NEGATIVE (NEGATIVE) Blood Type Antibody Screen Crossmatch MDM Narrative 82-year-old female with past medical history significant for esophageal varices, hepatic cirrhosis, diverticulosis who presents to the emergency department for evaluation of hematochezia. Reviewed prior visits and past medical history performed including admission from 06/01 to 06/08. Patient was admitted for acute GI bleed. She underwent EGD on 06/01 status post banding of esophageal varices. She was discharged home with a hemoglobin of 8 and on Levaquin. Per patient she was reportedly started on aspirin [address] of her Plavix for her history of SMA stent. She developed 2 episodes of bright red bloody stool around 6 AM this morning. On exam, she is lethargic appearing in no acute distress. She is nontoxic. Afebrile. Neurologically intact without focal deficits. GCS 15. Abdominal exam benign. She is hemodynamically stable in the emergency department. She is placed on monitoring engineer at the time of my evaluation demonstrates normal sinus rhythm at a rate of 86 bpm. IV access was established and labs were obtained. Hemoglobin down to 6.5. No leukocytosis. Coags mildly elevated. CMP without significant electrolyte abnormalities. Renal function demonstrates JANELL with creatinine of 1.89 (baseline appears to be around 1". LFTs and lipase unremarkable. Lactate elevated at 3.8. Patient was typed and screened her blood type is A+. Blood consent was obtained and she was ordered 2 units of PRBCs. Additionally, she was medicated with 500 mL fluids and Protonix drip. Case was discussed with on-call [facility] gastroenterology. I spoke with GI Jennyfer FIGUEROA, who came to evaluate patient at bedside. Please see her note for details. Patient reportedly did have an episode of melena on her evaluation. She was further treated with Octreotide drip and Rocephin per GI recommendations. Ultimately, given recent banding and recurrent bleeding, she is recommending transfer to [facility] for higher level of care and their GI service for TIPS procedure. I therefore discussed case with [facility] painter helper spray, Dr. Aldrich, who graciously accepted patient to their service in transfer for further evaluation and management. Patient was reassessed on multiple occasions throughout ED stay and remained stable. She was updated on all exam findings and test results as well as recommendations from gastroenterology. She is agreeable to transfer for further care. Appropriate transfer paperwork completed and consent was obtained. Unfortunately, while waiting for bed, we were notified by the transfer center that there are currently no beds available and transfer will likely not occur today. I discussed case with our hospitalist, Lisa Molina PA-C, who then accepted patient to their service for further management until a bed for transfer becomes available. She was admitted in stable condition. Case was discussed with ED attending, Dr. Nix, who agrees with workup and treatment plan Impression & Plan Acute blood loss anemia, Acute GI bleeding, Esophageal varices, JANELL (acute kidney injury) Discharge Plan Visit Data Chief Complaint: GI Bleed Stated Complaint: LOWER GI BLEED, DIZZINESS ED Provider: Morro Nix ED Midlevel Provider: Razia Lozada Discharge Problem: Acute blood loss anemia, Acute GI bleeding, Esophageal varices, JANELL (acute kidney injury) Forms Stand Alone Forms: My [facility] trippiece Prescriptions Prescriptions: No Action atorvastatin 40 mg tablet 40 mg PO DAILY torsemide 20 mg tablet 40 mg PO DAILY Novolin 70/30 U-100 Insulin 100 unit/mL (70-30) suspension 25 unit SUBCUT UD Rx Instructions: 25units before breakfast and 10units before supper. clopidogrel 75 mg tablet 75 mg PO DAILY Hold Instructions: Until follow up with your primary care provider to discuss risks and benefits of continuing as advised by the painter helper spray. carvedilol 3.125 mg tablet 3.125 mg PO BID metformin 1,000 mg tablet 1,000 mg PO BID losartan 25 mg tablet 25 mg PO DAILY vitamin B complex Capsule 1 cap PO DAILY iolpdynkzsmp-eczdetmo-nxxlwt Tablet 1 tab PO DAILY epinephrine 1 mg/mL Solution 0.3 mg SUBCUT Q4H PRN (Reason: Anaphylaxis) cinacalcet [Sensipar] 30 mg Tablet 30 mg PO DAILY melatonin 10 mg Tablet 10 mg PO HS PRN (Reason: Insomnia) biotin 1 mg Capsule 1 mg PO DAILY Osteo Bi-Flex 1 tab 1 tab PO DAILY Vitron-C 1 tab 1 tab PO DAILY pantoprazole 40 mg Tablet,Delayed Release (Dr/Ec) 40 mg PO BID Qty: 60 0RF magnesium oxide 400 mg magnesium Capsule 400 mg PO BID Qty: 60 0RF Referrals Referrals: Alexy Al MD [Primary Care Provider] -
--- OUTSIDE RECORDS SUMMARY | 2023-06-20 07:37 | External Medical Summary | Summary of Care ---
Author Name Unknown Organization [facility] Address [address] [facility] [place] [address] Phone [phone] Care Team Providers Care Vp Strategic Planning Name Role Phone Alexy Al MD Primary Care Provider [phone]- [phone] Reason for Visit * Reason Onset Date Comments Medication Refill 06/16/2023 Encounter Details Date Type Department Care Team (Late st Contact Info) Description 06/16/2023 Refill [facility] [address] [place] [address] Aurea Britton MD [address] [place] [address] Allergies No known active allergiesdocumented as of this encounter (statuses as of 06/18/2023) Medications Medication Sig Dispensed Refills Start Date [...] Tablet by mouth at bedtime. 0 Active OneTouch Delica Lancets 33G Test blood sugar twice daily E11.9 E11.29 400 Each 1 08/31/2022 Active Additional Information Patient not taking.Reported on 05/04/2023 Magnesium Oxide -Mg Supplement 400 MG Oral Capsule TAKE ONE CAPSULE BY MOUTH EVERY MORNING 90 Capsule 1 10/11/2022 10/11/2023 Active Additional Information Patient taking differently: 400 mg Oral BID (.AM/PM), Reported on 06/09/2023 Insulin Syringe-Needle U-100 30G X 5/16" 1 ML USE TO INJECT INSULIN TWICE DAILY 200 Each 1 08/31/2022 08/31/2023 Active Glucose Blood In Vitro Strip USE TO TEST BLOOD SUGAR TWICE DAILY 200 Strip 1 08/31/2022 08/31/2023 Active OneTouch DelVivebio Plus [id number] USE TO TEST BLOOD SUGAR TWICE DAILY 400 Each 1 08/31/2022 08/31/2023 Active Clopidogrel Bisulfate 75 MG Oral Tablet (pLAVix) Take 1 Tablet by mouth in the morning. 100 Tablet 3 01/26/2023 Active Additional Information Patient not taking.Reported on 06/09/2023 Alendronate Sodium 70 MG Oral Tablet (Fosamax) TAKE ONE TABLET BY MOUTH ONCE A WEEK WITH 8OZ OF WATER 30 MINUTES BEFORE THE FIRST MEAL OF THE DAY. REMAIN UPRIGHT FOR 30 MINUTES AFTER TAKING TABLET 12 Tablet 1 02/16/2023 02/16/2024 Active Additional Information Patient not taking.Reported on 06/09/2023 Atorvastatin Calcium 40 MG Oral Tablet (Lipitor)Indicatio ns:Dyslipidemia, goal LDL below 100 TAKE ONE TABLET BY MOUTH EVERY AFTERNOON 100 Tablet 3 03/06/2023 03/05/2024 Active [place] Verio w/Device Kit Use up to 4 times a day E11.9 E11.29 1 Kit 0 03/06/2023 Active Cinacalcet HCl 30 MG Oral Tablet (Sensipar)Indicati ons:Hyperparathyro idism, primary (HCC) TAKE ONE TABLET BY MOUTH IN THE MORNING. 100 Tablet 1 03/23/2023 03/22/2024 Active Losartan Potassium 25 MG Oral Tablet (Cozaar)Indication s:HTN, goal below 140/90 TAKE ONE TABLET BY MOUTH IN THE MORNING 100 Tablet 3 04/28/2023 04/27/2024 Active Carvedilol 3.125 MG Oral Tablet (Coreg) Take 1 Tablet by mouth 2 times a day with morning and evening meals. 60 Tablet 1 04/28/2023 Active Pantoprazole Sodium 40 MG Oral Tablet Delayed Release (Protonix) TAKE ONE TABLET BY MOUTH IN THE MORNING 100 Tablet 1 05/12/2023 05/11/2024 Active Additional Information Patient taking differently: 40 mg BID (.AM/PM), Reported on 06/09/2023 Torsemide 20 MG Oral Tablet (Demadex) Take 2 Tablets by mouth in the morning. 60 Tablet 5 05/18/2023 Active Ferrous Sulfate 325 (65 Fe) MG Oral Tablet (Feosol) Take 1 Tablet by mouth daily with breakfast. 0 Active Vitamin C 250 MG Oral Tablet Chewable Take 1 Tablet by mouth in the morning. 0 Active Dexcom G7 SensorIndications: Type 2 diabetes mellitus with diabetic nephropathy, with long-term current use of insulin ([facility]) Use to monitor blood glucose. Change every 10 days. 3 Each 11 06/09/2023 Active Dexcom G7 Associate Genetics Professor DeviceIndications: Type 2 diabetes mellitus with diabetic nephropathy, with long-term current use of insulin ([facility]) Use to monitor blood glucose 1 Each 0 06/09/2023 Active metFORMIN HCl 1000 MG Oral Tablet (Glucophage)Indica tions:Type 2 diabetes mellitus with hemoglobin A1c goal of less than 7.0% (HCC) TAKE ONE TABLET BY MOUTH IN THE MORNING AND ONE TABLET BEFORE BEDTIME WITH FOOD. 200 Tablet 1 06/14/2023 06/13/2024 Active Insulin NPH Isophane & Regular (70-30) 100 UNIT/ML Subcutaneous Suspension (NovoLIN 70/30)Indications: Type 2 diabetes mellitus with hemoglobin A1c goal of less than 8.0% (HCC) INJECT 25 UNITS UNDER THE SKIN BEFORE BREAKFAST AND INJECT 10 UNITS BEFORE SUPPER. 40 mL 1 06/13/2023 06/12/2024 Active documented as of this encounter (statuses as of 06/18/2023) Active Problems Problem Noted Date Diagnosed Date [...] repeat CT. 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 05/08/2022 Last Assessment [...] as of this encounter (statuses as of 06/18/2023) Resolved Problems Problem Noted Date Diagnosed Date [...] as of this encounter (statuses as of 06/18/2023) Immunizations Name Administration Dates Next Due COVID-19 mRNA, LNP-s, No Pre serve, 2-Dose Series (Axela) 03/10/2021,08/27/2020,08/06/2020 Pneumococcal Conjugate Vacc, 13 Valent (Prevnar) [...] encounter Miscellaneous Notes * Telephone Encounter - Abhay Coles [facility] - 06/18/2023 4:02 PM ESTRefused Prescriptions: Disp Refills Torsemide 20 MG Oral Tablet (Demadex) 60 Tab*5 Sig: Take 2 Tablets by mouth in the morning.Refused By: Dawna COLES for Refusal: Too soon documented in this encounter Plan of Treatment Upcoming Encounters Date Type Department Care Team (Late st Contact Info) Description 06/27/2023 4:00 PM EST [facility] [address] [facility] [place] [address] Cheryl Ruiz RN [address] [facility] [place] [address] 07/06/2023 2:20 PM EST Office [facility] [place] [address] [facility] [phone] Alexy Al MD [address] [place] [facility] [place] [address] 08/17/2023 12:40 PM EDT Office Visit Hepatology, [facility] [address] [facility] [place] [address] Dayan Sanford DO [address] [facility] [place] [address] 10/06/2023 10:40 AM EDT Office Visit [facility] [address] [facility] [phone] Alexy Al MD [address] [facility] [place] [id number] Health Maintenance Due Date Last Done Comments Hepatitis B (1 of 3 - Risk 3-dose series) 2000 COVID-19 Vaccine ( - season) 2023 03/10/2021, 08/27/2020, 08/06/2020 Depression Screening 03/14/2023 03/14/2022 HbA1c 09/26/2023 03/28/2023, 11/13, 09/05/2022, Additional history exists Diabetic Eye Exam 02/23/2024 02/22/2023, , 09/09/2022, Additional history exists Albumin/Creatinine Ratio 03/28/2024 023, 08/18/2021, 10/29/2019, Additional history exists Diabetic Foot Exam 05/18/2024 05/18/2023, 1 05/20/2018, 03/13/2018, Additional history exists DTaP,Tdap,and Td Vaccines (2 - Td or Tdap) 06/05/2024 06/05/2014 B-12 06/13/2024 06/13/2023, 06/16, 05/23/2022, Additional history exists GFR 06/13/2024 06/13/2023, 04/15, 04/28/2023, Additional history exists DXA Scan 11/28/2024 11/28/2022, 11/12, 05/14/2019, Additional history exists Pneumococcal Vaccine: 65+ Years Completed 06/04/2015, 07/29/2008 VITAMIN D LEVEL ONCE IN A LIFETIME-USE SMARTSET# [id number] Completed 01/27/2021, 08/21/2017, 03/08/2017, Additional history exists [...] this encounter Medical Devices Implanted Type Area Engineering Clerk Device Identifier Shelf Expiration Date Model / Serial / Lot Stent Graft [id number] - [id number] - [id number] Implanted:Qty: 1 on 05/09/2022 by Cedrick Phillips MD at [facility] [place] : MARTIN [id number] 02/11/2025 [id number] / [id number] / [id number] documented as of this encounter Advance Directives [...] Advance Directives occurred with: Patient Care Teams Vp Strategic Planning Relationship Specialty Start Date End Date Alexy Al MD [address] [place] [address] PCP - General 07/29/08 documented as of this encounter
--- OUTSIDE RECORDS SUMMARY | 2023-06-20 07:38 | External Medical Summary ---
Author Name Unknown Address Unknown Organization [id number]:[place] [facility] [place] [address] [place] [facility] [place] [address] Laboratory Report Ordering Provider Test Date Status CAR MARCUM 06/13/2023 12:05:42 Final Observation Date Value Abnormality Reference (Units ) Status BUN 06/13/2023 12:05:42 17 6-20 (mg/dL) Final Creatinine 06/13/2023 12:05:42 1.2 Above high normal 0.5-1.0 (mg/dL) Final Glomerular filtration rate/1.73 sq M.predicted [Volume Rate/Area] in Serum, Plasma or Blood by Creatinine-based formula (CKD-EPI) 06/13/2023 12:05:42 47 Below low normal >=60 (mL/min) Final eGFR is calculated based on the CKD-EPI 2020 equation SODIUM 06/13/2023 12:05:42 137 135-146 (m mol/L) Final Potassium 06/13/2023 12:05:42 3.7 3.5-5.1 (m mol/L) Final Cl 06/13/2023 12:05:42 101 98-107 (mm ol/L) Final CO2 06/13/2023 12:05:42 23 22-32 (mmo l/L) Final Anion gap 06/13/2023 12:05:42 13 7-15 (mmol /L) Final Glucose 06/13/2023 12:05:42 200 Above high normal 70 -120 (mg/dL) Final Albumin 06/13/2023 12:05:42 2.8 Below low normal 3.8 -5.0 (g/dL) Final AST (Aspartate aminotransferase) 06/13/2023 12:05:42 40 Above high normal 10-35 (U/L) Final Alk Phos 06/13/2023 12:05:42 52 35-130 (U/ L) Final Bilirubin, Total 06/13/2023 12:05:42 0.9 <=1 .2 (mg/dL) Final Calcium 06/13/2023 12:05:42 7.5 Below low normal 8.4 -10.2 (mg/dL) Final Protein 06/13/2023 12:05:42 5.2 Below low normal 6.0 -8.3 (g/dL) Final ALT (Alanine aminotransferase) 06/13/2023 12:05:42 31 10-35 (U/L) Jose Daniel arriola Performing Location [facility] [place] [address] [facility] [address]
--- OUTSIDE RECORDS SUMMARY | 2023-06-20 07:38 | External Medical Summary | Summary of Care ---
Author Name Unknown Organization [facility] Address [address] [facility] [place] [address] Phone [phone] Care Team Providers Care Breaker Hand Name Role Phone Alexy Al MD Primary Care Provider [phone]- [phone] Reason for Visit * Reason Onset Date Comments [facility]: Maintenance 06/10/2023 Encounter Details Date Type Department Care Team (Late st Contact Info) Description 06/10/2023 12:50 PM EST Scheduled Telephone [facility], [facility] [address] [facility] [place] [address] [facility], Nurse [facility] [address] [place] [address] Allergies No known active allergiesdocumented as of this encounter (statuses as of 06/10/2023) Medications Medication Sig Dispensed Refills Start Date [...] MORNING 90 Capsule 1 10/11/2022 4 Active Additional Information Patient taking differently: 400 mg Oral BID (.AM/PM), Reported on 06/09/2023 Insulin Syringe-Needle U-100 30G X 5/16" 1 ML USE TO INJECT INSULIN TWICE DAILY 200 Each 1 08/31/2022 4 Active Glucose Blood In Vitro Strip USE TO TEST BLOOD SUGAR TWICE DAILY 200 Strip 08/31/2022 4 Active OneTouch Delica Plus [id number] USE TO TEST BLOOD SUGAR TWICE DAILY [...] TABLET 12 Tablet 1 02/16/2023 4 Active Additional Information Patient not taking.Reported on [...] MORNING 100 Tablet 1 05/12/2023 4 Active Additional Information Patient taking differently: 40 [...] nephropathy, with long-term current use of insulin ([facility]) Use to monitor blood glucose. Change every 10 days. 3 Each 06/09/2023 Active Dexcom G7 Vice President Compliance DeviceIndications: Type 2 diabetes mellitus with diabetic nephropathy, with long-term current use of insulin ([facility]) Use to monitor blood glucose 1 Each 0 06/09/2023 Active documented as of this encounter (statuses as of 06/10/2023) Active Problems Problem Noted Date Diagnosed Date [...] repeat CT. Coronary artery disease invo lving jackson heart without angina pectoris 05/08/2022 Last Assessment [...] as of this encounter (statuses as of 06/10/2023) Resolved Problems Problem Noted Date Diagnosed Date [...] as of this encounter (statuses as of 06/10/2023) Immunizations Name Administration Dates Next Due COVID-19 mRNA, LNP-s, No Pre serve, 2-Dose Series ([facility]) 03/10/2021,08/27/2020,08/06/2020 Pneumococcal Conjugate Vacc, 13 Valent (Prevnar) [...] Telephone Encounter - Cheryl Ruiz RN - 06/10/2023 4:18 PM EST Images from the original note were not included. Telephone call to pt to f/u on [facility] trigger Pt had been hospitalized until 06/08 and wt has been up since then She does feel she is retaining more fluid Legs are more edematous than baseline, especially RLE No DTP on file - TT sent to partition assembly machine operator provider Dr. Magana for further recommendations. Recommends to double Torsemide dose for 3 days. Spoke with pt and she is aware - she is going to take the extra starting now and then will take double again tomorrow and Monday. Will continue to monitor via [facility] documented in this encounter Plan of Treatment Upcoming Encounters Date Type Department Care Team (Late st Contact Info) Description 06/13/2023 11:00 AM EST [address] [phone] Alexy Al MD [address] [facility] [address] 06/27/2023 4:00 PM EST Home Visit [facility] [address] [facility] [place] [address] Cheryl Ruiz, RN [address] [facility] [place] [address] 07/06/2023 2:20 PM EST [facility] [address] [facility] [phone] Alexy Al MD [address] [facility] [place] [address] 08/17/2023 12:40 PM EDT Office Visit Hepatology, [facility] [address] [facility] [place] [address] Dayan Sanford DO [address] [place] [address] 10/06/2023 10:40 AM EDT Office [facility] [address] [facility] [place] [phone] Alexy Al MD [address] [place] [facility] [place] [place] [address] Health Maintenance Due Date Last Done Comments [...] D LEVEL ONCE IN A LIFETIME-USE SMARTSET# [id number] Completed 01/27/2021, 08/21/2017, 03/08/2017, Additional history exists [...] this encounter Medical Devices Implanted Type Area Plate Shear Operator Device Identifier Shelf Expiration Date Model / Serial / Lot Stent Graft [id number] - [id number] - [id number] Implanted:Qty: 1 on 05/09/2022 by Cedrick Phillips MD at [facility] [place] : MARTIN [id number] 02/11/2025 8545 3 / [id number] / [id number] documented as of this encounter Advance Directives [...] Advance Directives occurred with: Patient Care Teams Breaker Hand Relationship Specialty Start Date End Date Alexy Al MD [address] [place] [address] PCP - General 07/29/08 documented as of this encounter
--- OUTSIDE RECORDS SUMMARY | 2023-06-20 07:38 | External Medical Summary ---
Author Name Unknown Address Unknown Organization K01:[place] [place] [address] [place] [address] Laboratory Report Ordering Provider Test Date Status CAR MARCUM 06/13/2023 12:05:42 Final Observation Date Value Abnormality Reference (Units ) Status Folic Acid 06/13/2023 12:05:42 >20.0 >4.5 (ng/ mL) Final Performing Location LABORATORY [facility] - [address] [place] [address]
--- OUTSIDE RECORDS SUMMARY | 2023-06-20 07:38 | External Medical Summary | Summary of Care ---
Author Name Unknown Organization [facility] Address [address] [facility] [place] [address] Phone [phone] Care Team Providers Care Client Care Specialist Name Role Phone Alexy Al MD Primary Care Provider +1- [phone] Reason for Visit * Reason Onset Date Comments [facility]: Maintenance 06/12/2023 Encounter Details Date Type Department Care Team (Late st Contact Info) Description 06/12/2023 Telephone [facility], [facility] [address] [place] [facility] [place] [address] [facility], Nurse [facility] [address] [facility] [place] [address] [facility]: Maintenance Allergies No known active allergiesdocumented as of this encounter (statuses as of 06/12/2023) Medications Medication Sig Dispensed Refills Start Date [...] Strip 08/31/2022 4 Active OneTouch Delica Plus [id number] USE TO TEST BLOOD SUGAR TWICE DAILY [...] with long-term current use of insulin (HCC) Use to monitor blood glucose. Change every 10 days. 3 Each 06/09/2023 Active Dexcom G7 Bartacker DeviceIndications: Type 2 diabetes mellitus with diabetic nephropathy, with long-term current use of insulin ([facility]) Use to monitor blood glucose 1 Each 0 06/09/2023 Active documented as of this encounter (statuses as of 06/12/2023) Active Problems Problem Noted Date Diagnosed Date [...] repeat CT. Coronary artery disease invo lving semin[place] heart without angina pectoris 05/08/2022 Last Assessment [...] as of this encounter (statuses as of 06/12/2023) Resolved Problems Problem Noted Date Diagnosed Date [...] as of this encounter (statuses as of 06/12/2023) Immunizations Name Administration Dates Next Due COVID-19 mRNA, LNP-s, No Pre serve, 2-Dose Series ([employer]) 03/10/2021,08/27/2020,08/06/2020 Pneumococcal Conjugate Vacc, 13 Valent (Prevnar) [...] encounter Miscellaneous Notes * Telephone Encounter - Caro Dawson LPN - 06/12/2023 10:03 AM EST Images from the original note were not included. [facility] Remote Patient Monitoring Able to contact patient: Trigger type: Abnormal reading(s): 40 mg AMC (Advanced Monitored Caregiving): Scale: Baseline weight: 150 -2/+3 lbs Trigger weight: 156.4 lbs; weight increased upper reference of target lbs in 1 day(s) Trigger priority per AMC: high Patient takes diuretic medication: Yes, reviewed current diuretic use: Name of medication: Torsemide Dose: 40 mg Frequency: daily Symptom review: Edema: BLE Diet Reviewed: N/A Fluid Intake Reviewed: N/A Self-Management Plan Reviewed: Risk assignment recommendation: Moderate risk findings (check as applicable): [] Moderate trigger priority on AMC [] Confirmed tympanic equivalent temperature 100.4-101.9 F one hour post administration of antipyretic [x] Weight gain of 2.1-4.9 lbs over 1-2 days [] Confirmed new sustained resting HR greater than 105WITHOUT symptoms [] Weight gain of greater than or equal to 5 lbs in 5 days WITHOUT heart failure symptoms [] Confirmed new sustained resting HRT less than 60 WITHOUT symptoms [] Moderate heart failure symptoms [] Confirmed SBP less than 90 WITHOUT symptoms [] Moderate COPD symptoms [] Confirmed SBP greater than 170 WITHOUT symptoms [] Confirmed new SpO2 90-93% [] Confirmed DBP greater than 90 WITHOUT symptoms High risk findings (check as applicable): [] High trigger priority on AMC [] Confirmed tympanic equivalent temperature greater than or equal to 102 F on hour post administration of antipyretic [] Weight gain of greater than or equal to 5 lbs over 1-2 days [] Confirmed tympanic equivalent temperature less than 96 F [] Weight gain of greater than or equal to 5 lbs in 5 days WITH heart failure symptoms [] Confirmednew sustained resting HR greater than 105 WITH symptoms [] Severe heart failure symptoms [] Confirmed new sustained resting HR less than 60 WITH symptoms [] Severe COPD symptoms [] Confirmed SBP less than 90 WITH symptoms [] Confirmed new SpO2 less than 90% [] Confirmed SBP greater than 170 WITH symptoms [] Confirmed DBP greater than 90 WITH symptoms Additional risk selection justification: Call from DEE Arredondo pt called her to let her know her weight is up and the extra diuretic she was instructed to take on the weekend by [facility] doesn't seem to have helped Call to pt she is in the car on her way to podiatry appointment. Very hard to hear and understand pt sound like she is talking from far away Was able to get she took double dose of diuretic on Monday dn Monday as instructed Pt states she doesn't seem to be urinating very much Pt denied SOB, not on O2 Reported edema in RLE Pt did state she didn't take diuretics yet today due to having to go to an appointment Phone cutting out during call able to hear only every other word Unable to assess more. Requested pt call [facility] when she gets home today Will forward to care team as FYI Overall risk and identified plan: Moderate risk: Route to RNCM (Registered Nurse Technical Staff Engineer) and Advance Practitioner documented in this encounter Plan of Treatment Upcoming Encounters Date Type Department Care Team (Late st Contact Info) Description 06/13/2023 11:00 AM EST [address] [phone] Alexy Al [facility] [address] [facility] [address] 06/27/2023 4:00 PM EST Home Visit [facility] at [facility] [address] [facility] [place] [address] Cheryl Ruiz RN 132 [facility] [place] [address] 07/06/2023 2:20 PM EST Office Visit [facility] [address] [place] [address] [place] [phone] [facility]y Al MD [address] [facility] [place] [address] 08/17/2023 12:40 PM EDT Office Visit Hepatology, [facility] [address] [place] [address] Dayan Sanford, [address] [place] [address] 10/06/2023 10:40 AM EDT Office Visit [facility] [address] [place] [facility] [place] [phone] Alexy Al MD [address] [place] [address] Health Maintenance Due Date Last Done Comments Hepatitis B (1 of 3 - Risk 3-dose series) 2000 COVID-19 Vaccine ( season) 2023 03/10/2021, 08/27/2020, 08/06/2020 Depression Screening 03/14/2023 03/14/2022 B-12 07/04/2023 07/04/2022, 010 01/2023, 01/27/2021, Additional history exists Diabetic Eye Exam 09/10/2023 09/09/2022, , 12/30/2020, Additional history exists HbA1c 09/26/2023 03/28/2023, 0708/2022, [...] D LEVEL ONCE IN A LIFETIME-USE SMARTSET# [id number] Completed 01/27/2021, 08/21/2017, 03/08/2017, Additional history exists [...] encounter Medical Devices Implanted Type Area Senior Examiner Device Identifier Shelf Expiration Date Model / Serial / Lot Stent Graft [id number] - [id number] - [id number] Implanted:Qty: 1 on 05/09/2022 by Cedrick Phillips MD at [place] [facility] [place] : SHILPINAZIA [id number] 02/11/2025 [id number] 3 / [id number] / [id number] documented as of this encounter Advance Directives [...] Advance Directives occurred with: Patient Care Teams Client Care Specialist Relationship Specialty Start Date End Date Alexy Al MD [address] [place] [address] PCP - General 07/29/08 documented as of this encounter
--- OUTSIDE RECORDS SUMMARY | 2023-06-20 07:38 | External Medical Summary | Summary of Care ---
Author Name Unknown Organization [facility] Address [address] [facility] [place] [address] Phone [phone] Care Team Providers Care Boat Patcher Plastic Name Role Phone Alexy Al MD Primary Care Provider +1- [phone] Reason for Visit * Reason Onset Date Comments Referral 06/16/2023 [facility] discharge ( DM) Encounter Details Date Type Department Care Team ([facility] st Contact Info) Description 06/16/2023 Telephone Pharmacy Call Center [address] [facility] [place] [address] [facility] [address] [facility] [place] [address] Referral ([facility] discharge (DM)) Allergies No known active allergiesdocumented as of this encounter (statuses as of 06/16/2023) Medications Medication Sig Dispensed Refills Start Date [...] 200 Strip 1 08/31/2022 08/31/2023 Active OneTouch Delica Plus [id number] USE TO TEST BLOOD SUGAR TWICE DAILY [...] AFTERNOON 100 Tablet 3 03/06/2023 03/05/2024 Active Syntervention Verio w/Device Kit Use up to 4 [...] long-term current use of insulin ([facility]) Use to monitor blood glucose. Change every 10 days. 3 Each 11 06/09/2023 Active Dexcom G7 Crop Supervisor DeviceIndications: Type 2 diabetes mellitus with diabetic nephropathy, with long-term current use of insulin ([facility]) Use to monitor blood glucose 1 Each [...] as of this encounter (statuses as of 06/16/2023) Active Problems Problem Noted Date Diagnosed Date [...] repeat CT. Coronary artery disease invo lving [place] heart without angina pectoris 05/08/2022 Last Assessment [...] as of this encounter (statuses as of 06/16/2023) Resolved Problems Problem Noted Date Diagnosed Date [...] as of this encounter (statuses as of 06/16/2023) Immunizations Name Administration Dates Next Due COVID-19 mRNA, LNP-s, No Pre serve, 2-Dose Series ([place]) 03/10/2021,08/27/2020,08/06/2020 Pneumococcal Conjugate Vacc, 13 Valent (Prevnar) [...] encounter Miscellaneous Notes * Telephone Encounter - Macey Garcia, keg header - 06/16/2023 3:11 PM EST Patient Phone Numbers Spoke with patient to schedule MTDM appointment for DM management, patient refused to schedule at this time. Martine Russell is discharged from Medication Therapy Disease Management service at this time and has been made aware to contact the clinic if she changes her mind. Thank you, Macey Garcia Nurse Examiner [facility] ([facility]) 06/16/2023,3:11 PM documented in this encounter Plan of Treatment Upcoming Encounters Date Type Department Care Team (Late st Contact Info) Description 06/27/2023 4:00 PM EST Home Visit [facility] at [place], [facility] [address] [facility] [place] [address] Cheryl Ruiz RN 132 [place] [address] 07/06/2023 2:20 PM EST Office Visit [place] [address] [address] [facility] [phone] Alexy Al MD [address] [place] [facility] [place] [address] 08/17/2023 12:40 PM EDT Office Visit Hepatology, [facility] [address] [facility] [place] [address] Dayan Sanford DO 132 [facility] [place] [address] 10/06/2023 10:40 AM EDT Office Visit [facility] [address] [facility] [phone] Alexy Al MD [address] [facility] [place] [address] Health Maintenance Due Date Last Done Comments [...] D LEVEL ONCE IN A LIFETIME-USE SMARTSET# [id number] Completed 01/27/2021, 08/21/2017, 03/08/2017, Additional history exists [...] this encounter Medical Devices Implanted Type Area Product Safety Lead Device Identifier Shelf Expiration Date Model / Serial / Lot Stent Graft [id number] - [id number] - [id number] Implanted:Qty: 1 on 05/09/2022 by Cedrick Phillips MD [place] [facility] MARTIN [id number] 02/11/2025 8545 3 / [id number] / [id number] documented as of this encounter Advance Directives [...] Advance Directives occurred with: Patient Care Teams Boat Patcher Plastic Relationship Specialty Start Date End Date Alexy Al MD [address] [place] [address] PCP - General 07/29/08 documented as of this encounter
--- OUTSIDE RECORDS SUMMARY | 2023-06-20 07:38 | External Medical Summary | Summary of Care ---
Author Name Unknown Organization [facility] Address [address] [facility] [place] [address] Phone [phone] Care Team Providers Care Bone Worker Name Role Phone Alexy Al MD Primary Care Provider +1- [phone] Reason for Visit * Reason Onset Date Comments [facility]: Maintenance 06/08/2023 Encounter Details Date Type Department Care Team (Late st Contact Info) Description 06/08/2023 Telephone [facility], [facility] [address] [place] [facility] [place] [address] [facility], Nurse [facility] [address] [place] [facility] [place] [address] [facility]: Maintenance Allergies No known active allergiesdocumented as of this encounter (statuses as of 06/08/2023) Medications Medication Sig Dispensed Refills Start Date [...] 1 08/31/2022 4 Active OneTouch Delica Plus [id number] USE TO TEST BLOOD SUGAR TWICE DAILY [...] as of this encounter (statuses as of 06/08/2023) Active Problems Problem Noted Date Diagnosed Date [...] repeat CT. Coronary artery disease invo lving [place] heart without angina pectoris 05/08/2022 Last Assessment [...] as of this encounter (statuses as of 06/08/2023) Resolved Problems Problem Noted Date Diagnosed Date [...] as of this encounter (statuses as of 06/08/2023) Immunizations Name Administration Dates Next Due COVID-19 [...] Telephone Encounter - Caro Dawson LPN - 06/08/2023 2:59 PM EST Pt returning call, she is aware and agreeable to [facility] visit as scheduled * Telephone Encounter - Leonela Gutiérrez LPN - 06/08/2023 2:52 PM EST Received TT [facility] with Kristen Ruiz . Left patient detailed voicemail withappointment info documented in this encounter Plan of Treatment Upcoming Encounters Date Type Department Care Team (Late st Contact Info) Description 06/09/2023 4:00 PM EST [facility] [address] [facility] [place] [address] Cheryl Ruiz, RN [address] [facility] [place] [address] 06/13/2023 11:00 AM EST Office [facility] [place] [address] [facility] [phone] Alexy Al MD [address] [facility] [address] 07/06/2023 2:20 PM EST Office Visit [place] [address] [facility] [phone] Alexy Al MD [address] [facility] [place] [address] 08/17/2023 12:40 PM EDT Office Visit Hepatology, [facility] [address] [facility] [place] [address] Dayan Sanford DO [address] [facility] [place] [address] 10/06/2023 10:40 AM EDT Office Visit [place] [address] [facility] [phone] Alexy Al MD [address] [facility] [address] Health Maintenance Due Date Last Done Comments Hepatitis B (1 of 3 - Risk 3-dose series) 2000 COVID-19 Vaccine ( season) 2023 03/10/2021, 08/27/2020, 08/06/2020 Depression Screening 03/14/2023 03/14/2022 B-12 07/04/2023 07/04/2022, 01/2023, 01/27/2021, Additional history exists Diabetic Eye [...] D LEVEL ONCE IN A LIFETIME-USE SMARTSET# [id number] Completed 01/27/2021, 08/21/2017, 03/08/2017, Additional history exists [...] this encounter Medical Devices Implanted Type Area Grinder Set Up Operator Thread Tool Device Identifier Shelf Expiration Date Model / Serial / Lot Stent Graft [id number] - [id number] - [id number] Implanted:Qty: 1 on 05/09/2022 by Cedrick Phillips MD at [place] [facility] [place] [id number] 02/11/2025 [id number] 3 / [id number] / [id number] documented as of this encounter Advance Directives [...] Advance Directives occurred with: Patient Care Teams Bone Worker Relationship Specialty Start Date End Date Alexy Al MD [address] [facility] [place] [address] PCP - General 07/29/08 documented as of this encounter
--- OUTSIDE RECORDS SUMMARY | 2023-06-20 07:38 | External Medical Summary | Summary of Care ---
Author Name Unknown Organization [facility] Address [address] [place] [address] Phone [phone] Care Team Providers Care Inspector And Clipper Name Role Phone Angelica Rodas MD Primary Care Provider +1- [phone] Reason for Visit * Reason Comments Medication Refill Encounter Details Date Type Department Care Team (Late st Contact Info) Description 06/12/2023 Refill [facility] [address] [place] [address] Angelica Rodas MD [address] [place] [address] Type 2 diabetes mellitus with hemoglobin A1c goal of less than 7.0% (HCC); Type 2 diabetes mellitus with hemoglobin A1c goal of less than 8.0% (HCC) Allergies No known active allergiesdocumented as of this encounter (statuses as of 06/14/2023) Medications Medication Sig Dispensed Refills Start Date [...] MOUTH EVERY MORNING 90 Capsule 1 10/11/2022 10/11/19 24 Active Additional Information Patient taking differently: 400 mg Oral BID (.AM/PM), Reported on 06/09/2023 Insulin Syringe-Needle U-100 30G X 5/16" 1 ML USE TO INJECT INSULIN TWICE DAILY 200 Each 1 08/31/2022 08/31/19 24 Active Glucose Blood In Vitro Strip USE TO TEST BLOOD SUGAR TWICE DAILY 200 Strip 08/31/2022 08/31/19 24 Active OneTouch Delica Plus [id number] USE TO TEST BLOOD SUGAR TWICE DAILY 400 Each 08/31/2022 08/31/19 24 Active Clopidogrel Bisulfate 75 MG [...] AFTER TAKING TABLET 12 Tablet 1 02/16/2023 02/16/20 24 Active Additional Information Patient not taking.Reported on 06/09/2023 Atorvastatin Calcium 40 MG Oral Tablet (Lipitor)Indicati ons:Dyslipidemia, goal LDL below 100 TAKE ONE TABLET BY MOUTH EVERY AFTERNOON 100 Tablet 3 03/06/2023 03/05/20 24 Active Reach Unlimited CorporationTouch Verio w/Device Kit Use up to 4 times a day E11.9 E11.29 1 Kit 0 03/06/2023 Active Cinacalcet HCl 30 MG Oral Tablet (Sensipar)Indicat ions:Hyperparathy roidism, primary (HCC) TAKE ONE TABLET BY MOUTH IN THE MORNING. 100 Tablet 1 03/23/2023 03/22/20 24 Active Losartan Potassium 25 MG Oral Tablet (Cozaar)Indicatio ns:HTN, goal below 140/90 TAKE ONE TABLET BY MOUTH IN THE MORNING 100 Tablet 3 04/28/2023 04/27/20 24 Active Carvedilol 3.125 MG Oral Tablet (Coreg) Take 1 Tablet by mouth 2 times a day with morning and evening meals. 60 Tablet 1 04/28/2023 Active Pantoprazole Sodium 40 MG Oral Tablet Delayed Release (Protonix) TAKE ONE TABLET BY MOUTH IN THE MORNING 100 Tablet 1 05/12/2023 05/11/20 24 Active Additional Information Patient taking differently: 40 [...] in the morning. 0 Active Dexcom G7 SensorIndications :Type 2 diabetes mellitus with diabetic nephropathy, with long-term current use of insulin ([facility]) Use to monitor blood glucose. Change every 10 days. 3 Each 11 06/09/2023 Active Dexcom G7 Screen Printing Equipment Setter DeviceIndications :Type 2 diabetes mellitus with diabetic nephropathy, with long-term current use of insulin ([facility]) Use to monitor blood glucose 1 Each 0 06/09/2023 Active metFORMIN HCl 1000 MG Oral Tablet (Glucophage)Indic ations:Type 2 diabetes mellitus with hemoglobin A1c goal of less than 7.0% ([facility]) TAKE ONE TABLET BY MOUTH IN THE MORNING AND ONE TABLET BEFORE BEDTIME WITH FOOD. 200 Tablet 1 06/14/2023 06/13/19 25 Active NovoLIN 70/30 (70-30) 100 UNIT/ML Subcutaneous SuspensionIndicat ions:Type 2 diabetes mellitus with hemoglobin A1c goal of less than 8.0% ([facility]) INJECT 25 UNITS SUBCUTANEOUSLY BEFORE BREAKFAST AND INJECT 10 UNITS BEFORE SUPPER. 40 mL 1 06/13/2023 06/12/19 25 Active NovoLIN 70/30 (70-30) 100 UNIT/ML Subcutaneous SuspensionIndicat ions:Type 2 diabetes mellitus with hemoglobin A1c goal of less than 8.0% (HCC) INJECT 25 UNITS SUBCUTANEOUSLY BEFORE BREAKFAST AND INJECT 10 UNITS BEFORE SUPPER. 40 mL 1 08/31/2022 06/12/19 24 Discontinu ed(Refill) metFORMIN HCl 1000 MG Oral Tablet (Glucophage)Indic ations:Type 2 diabetes mellitus with hemoglobin A1c goal of less than 7.0% (HCC) TAKE ONE TABLET BY MOUTH IN THE MORNING AND ONE TABLET BEFORE BEDTIME WITH FOOD. 200 Tablet 1 08/31/2022 06/12/19 24 Discontinu ed(Refill) documented as of this encounter (statuses as of 06/14/2023) Active Problems Problem Noted Date Diagnosed Date [...] repeat CT. Coronary artery disease invo lving [place] heart without angina pectoris 05/08/2022 Last Assessment [...] as of this encounter (statuses as of 06/14/2023) Resolved Problems Problem Noted Date Diagnosed Date [...] as of this encounter (statuses as of 06/14/2023) Immunizations Name Administration Dates Next Due COVID-19 mRNA, LNP-s, No Pre serve, 2-Dose Series ([employer]) 03/10/2021,08/27/2020,08/06/2020 Pneumococcal Conjugate Vacc, 13 Valent (Prevnar) [...] encounter Miscellaneous Notes * Telephone Encounter - Laura Noyola [facility] - 06/14/2023 4:42 AM ESTSigned Prescriptions: Disp Refills metFORMIN HCl 1000 MG Oral Tablet (Glucoph*200 Ta*1 Sig: TAKE ONE TABLET BY MOUTH IN THE MORNING AND ONE TABLET BEFORE BEDTIME WITH FOOD. Authorizing Provider: ANGELICA RODAS Ordering User: LAURA NOYOLA NovoLIN 70/30 (70-30) 100 UNIT/ML Subcutan*40 mL 1 Sig: INJECT 25 UNITS SUBCUTANEOUSLY BEFORE BREAKFAST AND IN JECT 10 UNITS BEFORE SUPPER. Authorizing Provider: ANGELICA RODAS Ordering User: CARINA JONES * Telephone Encounter - Carina Jones [facility] - 06/13/2023 7:17 AM EST OV 06/13 Postponing metformin due to last creatinine was acutely elevated. Pt should recheck level then decrease dose if needed * Telephone Encounter - 06/12/2023 12:14 AM ESTPending Prescriptions: Disp Refills metFORMIN HCl 1000 MG Oral Tablet (Glucoph*200 Ta*1 Sig: TAKE ONE TABLET BY MOUTH IN THE MORNING AND ONE TABLET BEFORE BEDTIME WITH FOOD. NovoLIN 70/30 (70-30) 100UNIT/ML Subcutan*40 mL 1 Sig: INJECT 25 UNITS SUBCUTANEOUSLY BEFORE BREAKFAST AND INJECT 10 UNITS BEFORE SUPPER. documented in this encounter Plan of Treatment Upcoming Encounters Date Type Department Care Team (Late st Contact Info) Description 06/27/2023 4:00 PM EST Home Visit [facility] [address] [facility] [place] [address] Cheryl Ruiz RN 132 [facility] [place] [address] 07/06/2023 2:20 PM EST Office Visit [place] [address] [facility] [phone] Angelica Rodas MD [address] [place] [facility] [place] [address] 08/17/2023 12:40 PM EDT Office Visit Hepatology, [facility] [address] [facility] [place] [address] Dayan Sanford DO [address] [facility] [place] [address] 10/06/2023 10:40 AM EDT Office Visit [facility] [address] [facility] [phone] Angelica Rodas MD [address] [place] [facility] [place] [address] Health Maintenance Due Date Last Done Comments [...] D LEVEL ONCE IN A LIFETIME-USE SMARTSET# [id number] Completed 01/27/2021, 08/21/2017, 03/08/2017, Additional history exists [...] this encounter Medical Devices Implanted Type Area Oil Refiner Device Identifier Shelf Expiration Date Model / Serial / Lot Stent Graft [id number] - [id number] - [id number] Implanted:Qty: 1 on 05/09/2022 by Cedrick Phillips MD at [facility] GET[employer]E : MARTIN [id number] 02/11/2025 8545 3 / [id number] / [id number] documented as of this encounter Visit Diagnoses Diagnosis Type 2 diabetes mellitus with hemoglobin A1c goal of less than 7.0% (HCC) Type 2 diabetes mellitus with hemoglobin A1c goal of less than 8.0% (HCC) documented in this encounter Advance Directives [...] Advance Directives occurred with: Patient Care Teams Inspector And Clipper Relationship Specialty Start Date End Date Angelica Rodas MD [address] [place] [address] PCP - General 07/29/08 documented as of this encounter
--- OUTSIDE RECORDS SUMMARY | 2023-06-20 07:38 | External Medical Summary | Summary of Care ---
Author Name Unknown Organization [facility] Address [address] [facility] [place] [address] Phone [phone] Care Team Providers Care Supervisor Metal Furniture Assembly Name Role Phone Alexy Al MD Primary Care Provider +1- [phone] Reason for Visit * Reason Onset Date Comments [facility]: Maintenance 06/08/2023 Encounter Details Date Type Department Care Team (Late st Contact Info) Description 06/08/2023 Telephone [facility], [facility] [address] [facility] [place] [address] [facility], Nurse [facility] [address] [place] [facility] [place] [address] [facility]: Maintenance Allergies No known [...] 1 08/31/2022 4 Active OneTouch Delica Plus [id number] USE TO TEST BLOOD SUGAR TWICE DAILY [...] repeat CT. Coronary artery disease invo lving [place] heart without angina pectoris 05/08/2022 Last Assessment [...] call, she is aware and agreeable to [facility] visit as scheduled * Telephone Encounter - Leonela Gutiérrez LPN - 06/08/2023 2:52 PM EST Received TT patient dc'x from [facility] 1 06/09 with Kristen Ruiz . Left patient detailed voicemail withappointment info documented in this encounter Plan of Treatment Upcoming Encounters Date Type Department Care Team (Late st Contact Info) Description 06/09/2023 4:00 PM EST [facility] [address] [facility] [place] [address] Cheryl Ruiz, RN [address] [facility] [place] [address] 06/13/2023 11:00 AM EST [facility] [place] [address] [facility] [phone] Alexy Al MD [address] [facility] [address] 07/06/2023 2:20 PM EST [facility] Visit [place] [address] [facility] [phone] Alexy Al MD [address] [facility] [place] [address] 08/17/2023 12:40 PM EDT Office Visit Hepatology, [facility] [address] [facility] [place] [address] Dayan Sanford DO [address] [facility] [place] [address] 10/06/2023 10:40 AM EDT Office [facility] [place] [address] [facility] [phone] Alexy Al MD [address] [facility] [address] Health Maintenance Due Date Last Done Comments [...] D LEVEL ONCE IN A LIFETIME-USE SMARTSET# [id number] Completed 01/27/2021, 08/21/2017, 03/08/2017, Additional history exists [...] this encounter Medical Devices Implanted Type Area Integrity Manager Device Identifier Shelf Expiration Date Model / Serial / Lot Stent Graft [id number] - [id number] - [id number] Implanted:Qty: 1 on 05/09/2022 by Cedrick Phillips MD at OR [facility] LIOR SALAZAR [id number] 02/11/2025 8545 3 / [id number] / [id number] documented as of this encounter Advance Directives [...] Directives occurred with: Patient Care Teams Supervisor Metal Furniture Assembly Relationship Specialty Start Date End Date Aleyx Al MD [address] [place] [facility] [address] PCP - General 07/29/08 documented as of this encounter
--- OUTSIDE RECORDS SUMMARY | 2023-06-20 07:38 | External Medical Summary | Summary of Care ---
Author Name Unknown Organization [facility] Address [address] [place] [address] Phone [phone] Care Team Providers Care Financial Service Professional Name Role Phone Alexy Al MD Primary Care Provider +1- [phone] Reason for Visit * Reason Comments Outpatient Testing Encounter Details Date Type Department Care Team (Latest Contact Info) Description 06/13/2023 12:10 PM EST Laboratory Laboratory, [facility] [address] [place] [address] [facility] [address] [place], [place] [phone] Esophageal varices without bleeding, unspecified esophageal varices type (HCC); Gastrointestinal hemorrhage, unspecified gastrointestinal hemorrhage type; Type 2 diabetes mellitus with diabetic nephropathy, with long-term current use of insulin (HCC); Cirrhosis of liver without ascites, unspecified hepatic cirrhosis type (HCC); Encounter for long-term (current) use of medications Allergies No known active allergiesdocumented as of this encounter (statuses as of 06/13/2023) Medications Medication Sig Dispensed Refills Start Date [...] 1 08/31/2022 4 Active OneTouch Delica Plus [id number] USE TO TEST BLOOD SUGAR TWICE DAILY 400 Each 1 08/31/2022 4 Active metFORMIN HCl 1000 [...] AFTERNOON 100 Tablet 3 03/06/2023 4 Active Pulmologixuch Verio w/Device Kit Use up to 4 [...] 3 Each 11 06/09/2023 Active Dexcom G7 Pompom Maker DeviceIndications: Type 2 diabetes mellitus with diabetic nephropathy, with long-term current use of insulin (HCC) Use to monitor blood glucose 1 Each 0 06/09/2023 Active NovoLIN 70/30 (70-30) 100 UNIT/ML Subcutaneous SuspensionIndicati ons:Type 2 diabetes mellitus with hemoglobin A1c goal of less than 8.0% (HCC) INJECT 25 UNITS SUBCUTANEOUSLY BEFORE BREAKFAST AND INJECT 10 UNITS BEFORE SUPPER. 40 mL 1 06/13/2023 Active documented as of this encounter (statuses as of 06/13/2023) Active Problems Problem Noted Date Diagnosed Date [...] repeat CT. Coronary artery disease invo lving [place] heart without angina pectoris 05/08/2022 Last Assessment [...] as of this encounter (statuses as of 06/13/2023) Resolved Problems Problem Noted Date Diagnosed Date [...] as of this encounter (statuses as of 06/13/2023) Immunizations Name Administration Dates Next Due COVID-19 mRNA, LNP-s, No Pre serve, 2-Dose Series (Ahaali) 03/10/2021,08/27/2020,08/06/2020 Pneumococcal Conjugate Vacc, 13 Valent (Prevnar) [...] 4:00 PM EST Home Visit [facility] [place] [address] Cheryl Ruiz RN [address] [facility] [place] [address] 07/06/2023 2:20 PM EST [facility] [address] [facility] [phone] Alexy Al MD [address] [facility] [address] 08/17/2023 12:40 PM EDT Office Visit Hepatology, [facility] [place] [address] Dayan Sanford DO [address] [facility] [place] [address] 10/06/2023 10:40 AM EDT Office Visit [facility] [address] [facility] [phone] Alexy Al MD [address] [place] [facility] [place] [address] Pending Results Name Type Priority Associated Diagnoses Date /Time CBC WITH WBC DIFFERENTIAL AND ANEMIA REFLEX WORKUP Lab Routine Esophageal varices without bleeding, unspecified esophageal varices type (HCC) Gastrointestinal hemorrhage, unspecified gastrointestinal hemorrhage type 06/13/2023 12:05 PM EST COMPREHENSIVE METABOLIC PANEL Lab Routine Type 2 diabetes mellitus with diabetic nephropathy, with long-term current use of insulin (HCC) Gastrointestinal hemorrhage, unspecified gastrointestinal hemorrhage type Cirrhosis of liver without ascites, unspecified hepatic cirrhosis type (HCC) 06/13/2023 12:05 PM EST AMMONIA Lab Routine Cirrhosis of liver without ascites, unspecified hepatic cirrhosis type (HCC) 06/13/2023 12:05 PM EST MAGNESIUM Lab Routine Encounter for long-term (current) use of medications 06/13/2023 12:05 PM EST ANEMIA CBC Lab Routine Esophageal varices without bleeding, unspecified esophageal varices type (HCC) Gastrointestinal hemorrhage, unspecified gastrointestinal hemorrhage type 06/13/2023 12:05 PM EST DIFFERENTIAL, AUTOMATED Lab Routine Esophageal varices without bleeding, unspecified esophageal varices type (HCC) Gastrointestinal hemorrhage, unspecified gastrointestinal hemorrhage type 06/13/2023 12:05 PM EST ANEMIA REFLEX CHEMISTRY HOLD Lab Routine Esophageal varices without bleeding, unspecified esophageal varices type (HCC) Gastrointestinal hemorrhage, unspecified gastrointestinal hemorrhage type 06/13/2023 12:05 PM EST Health Maintenance Due Date Last [...] Tdap) 06/05/2024 06/05/2014 DXA Scan 11/28/2024 11/28/2022, 11/12, 05/14/2019, Additional history exists Pneumococcal Vaccine: 65+ Years Completed 06/04/2015, 07/29/2008 VITAMIN D LEVEL ONCE IN A LIFETIME-USE SMARTSET# [id number] Completed 01/27/2021, 08/21/2017, 03/08/2017, Additional history exists [...] this encounter Medical Devices Implanted Type Area Sack Filler Device Identifier Shelf Expiration Date Model / Serial / Lot Stent Graft [id number] - [id number] - [id number] Implanted:Qty: 1 on 05/09/2022 by Cedrick Phillips MD at [facility] [employer] : SHILPINAZIA [id number] 02/11/2025 8545 3 / [id number] / [id number] documented as of this encounter Visit Diagnoses Diagnosis Esophageal varices without bleeding, unspecified esophageal varices type (HCC) Gastrointestinal hemorrhage, unspecified gastrointestinal hemorrhage type Type 2 diabetes mellitus with diabetic nephropathy, with long-term current use of insulin (HCC) Cirrhosis of liver without ascites, unspecified hepatic cirrhosis type (HCC) Encounter for long-term (current) use of medications Encounter for long-term (current) use of other medications documented in this encounter Advance Directives Latest [...] Advance Directives occurred with: Patient Care Teams Financial Service Professional Relationship Specialty Start Date End Date Alexy Al MD [address] [place] [address] PCP - General 07/29/08 documented as of this encounter
--- OUTSIDE RECORDS SUMMARY | 2023-06-20 07:38 | External Medical Summary ---
Author Name Unknown Address Unknown Organization [id number]:[facility] [place] [address] [place] [address] Laboratory Report Ordering Provider Test Date Status CAR MARCUM 06/13/2023 12:05:42 Final Observation Date Value Abnormality Reference (Units ) Status Vitamin B12 06/13/2023 12:05:42 1534 Above high normal 232-1245 (pg/mL) Final Performing Location [facility] [address] [place] [address]
--- OUTSIDE RECORDS SUMMARY | 2023-06-20 07:38 | External Medical Summary ---
Author Name Unknown Address Unknown Organization [id number]:[facility]ORY [facility] - [address] [facility] [place] [address] Laboratory Report Ordering Provider Test Date Status CAR MARCUM 06/13/2023 12:05:42 Final Observation Date Value Abnormality Reference (Units ) Status WBC, Total 06/13/2023 12:05:42 5.96 4.00-10.8 0 (K/uL) Final RBC 06/13/2023 12:05:42 3.00 3.85-5.15 (M/uL) Final Hemoglobin 06/13/2023 12:05:42 8.6 Below low normal 12 .0-15.3 (g/dL) Final Anemia reflex testing trigge rs on a HGB < 12.0 for Females and HGB < 13.0 for Males in accordance with the WHO Anemia Guidelines
Anemia reflex testing triggers on a HGB < 12.0 for Females and HGB < 13.0 for Males in accordance with the WHO Anemia Guidelines HCT 06/13/2023 12:05:42 27.7 Below low normal 36. 0-45.2 (%) Final MCV 06/13/2023 12:05:42 92.3 81.5-97.5 (fL) Final MCH 06/13/2023 12:05:42 28.7 27.0-34.0 (pg) Final MCHC 06/13/2023 12:05:42 31.0 32.0-36.0 (g/dL) Final RDW 06/13/2023 12:05:42 16.1 11.5-15.5 (%) Final Platelets 06/13/2023 12:05:42 128 Below low normal 140 -400 (K/uL) Final MPV 06/13/2023 12:05:42 12.4 6.6-11.1 ( fL) Final Nucleated erythrocytes/100 leukocytes [Ratio] in Blood by Automated count 06/13/2023 12:05:42 0 <=0 (/100 WBCs) Final Performing Location LAB[facility]ORY [facility] - [address] [facility] [address]
--- OUTSIDE RECORDS SUMMARY | 2023-06-20 07:38 | External Medical Summary ---
Author Name Unknown Address Unknown Organization [id number]:LABORATORY [facility] - [address] [place] [address] Laboratory Report Ordering Provider Test Date Status CHETNAJANACAR 06/13/2023 12:05:42 Final Observation Date Value Abnormality Reference (Units ) Status Ferritin 06/13/2023 12:05:42 34 13-150 (ng /mL) Final Postmenopausal women have hi gher ferritin levels than pre-menopausal women. The above reference interval is based on pre-menopausal women. Performing Location [facility] - [address] [place] [address]
--- OUTSIDE RECORDS SUMMARY | 2023-06-20 07:38 | External Medical Summary | Summary of Care ---
Author Name Unknown Organization [facility] Address [address] [facility] [place] [address] Phone [phone] Care Team Providers Care Hydroponics Grower Name Role Phone Alexy Al MD Primary Care Provider +1- [phone] Reason for Visit * Reason Onset Date Comments Follow Up 06/01/2023 Encounter Details Date Type Department Care Team (Late st Contact Info) Description 06/01/2023 Telephone Gastroenterology, [facility] [address] [place] [address] Kristofer [place] MD [address] [place] [address] Follow Up Allergies No known active allergiesdocumented as of this encounter (statuses as of 06/02/2023) Medications Medication Sig Dispensed Refills Start Date [...] Strip 08/31/2022 4 Active OneTouch Delica Plus [id number] USE TO TEST BLOOD SUGAR TWICE DAILY [...] as of this encounter (statuses as of 06/02/2023) Active Problems Problem Noted Date Diagnosed Date [...] CT. Coronary artery disease invo lving [place] heart without angina pectoris 05/08/2022 Last Assessment [...] as of this encounter (statuses as of 06/02/2023) Resolved Problems Problem Noted Date Diagnosed Date [...] as of this encounter (statuses as of 06/02/2023) Immunizations Name Administration Dates Next Due COVID-19 [...] encounter Miscellaneous Notes * Telephone Encounter - Yasmeen Miranda LPN - 06/01/2023 10:39 AM EST Received a msg from the research environmental scientist notice. Pt having possible GI BLEED.[facility] in [facility] hospital 2ed floor, room 212. Attempted to call pt and check on her status. , unsure if she is in the hospital of if she just called to make us aware. documented in this encounter Plan of Treatment Upcoming Encounters Date Type Department Care Team (Late st Contact Info) Description 06/05/2023 12:30 PM EST Home Visit [facility] [address] [place] [address] Cheryl Ruiz, RN [address] [place] [address] 07/06/2023 2:20 PM EST Office [facility] [address] [facility] [place] [phone] Alexy Al MD [address] [facility] [place] [address] 08/17/2023 12:40 PM EDT Office Visit Hepatology, [facility] [address] [place] [address] Dayan Sanford DO [address] [place] [address] 10/06/2023 10:40 AM EDT Office [facility] [address] [facility] [place] [phone] Alexy Al MD [address] [facility] [address] Health Maintenance Due Date Last Done Comments Hepatitis B (1 of 3 - Risk 3-dose series) 2000 COVID-19 Vaccine ( season) 2023 03/10/2021, 08/27/2020, 08/06/2020 Depression Screening 03/14/2023 03/14/2022 B-12 07/04/2023 07/04/2022, 01/0 01/2023, 01/27/2021, Additional history exists Diabetic Eye [...] D LEVEL ONCE IN A LIFETIME-USE SMARTSET# [id number] Completed 01/27/2021, 08/21/2017, 03/08/2017, Additional history exists [...] this encounter Medical Devices Implanted Type Area Creamery Worker Device Identifier Shelf Expiration Date Model / Serial / Lot Stent Graft [id number] - [id number] - [id number] Implanted:Qty: 1 on 05/09/2022 by Cedrick Pihllips MD at OR [facility] GET[employer]E : MARTIN [id number] 02/11/2025 8545 3 / [id number] / [id number] documented as of this encounter Advance Directives [...] Advance Directives occurred with: Patient Care Teams Hydroponics Grower Relationship Specialty Start Date End Date Alexy Al MD [address] [place] [phone] PCP - General 07/29/08 documented as of this encounter
--- OUTSIDE RECORDS SUMMARY | 2023-06-20 07:38 | External Medical Summary ---
Author Name Unknown Address Unknown Organization K01:[facility] - [address] [place] [address] Laboratory Report Ordering Provider Test Date Status CAR MARCUM 06/13/2023 12:05:42 Final Observation Date Value Abnormality Reference (Units ) Status Ammonia 06/13/2023 12:05:42 28 11-35 (umo l/L) Final Performing Location [facility] - [address] [place] [address]
--- OUTSIDE RECORDS SUMMARY | 2023-06-20 07:38 | External Medical Summary ---
Author Name Unknown Address Unknown Organization K01:[facility] [place] [address] [place] [address] Laboratory Report Ordering Provider Test Date Status CAR MARCUM 06/13/2023 12:05:42 Final Observation Date Value Abnormality Reference (Units ) Status TSH 06/13/2023 12:05:42 1.32 0.27-4.20 (uIU/mL) Final Performing Location [facility] - [address] [place] [address]
--- OUTSIDE RECORDS SUMMARY | 2023-06-20 07:38 | External Medical Summary | Summary of Care ---
Author Name Unknown Organization [facility] Address [address] [facility] [place] [address] Phone [phone] Care Team Providers Care Program Rep Name Role Phone Alexy Al MD Primary Care Provider +1- [phone] Reason for Visit * Reason Comments [facility]: Maintenance Encounter Details Date Type Department Care Team (Late st Contact Info) Description 06/09/2023 4:00 PM EST [facility] Visit [facility], [facility] [address] [place] [address] Cheryl Ruiz, RN [address] [place] [address] Allergies No known active allergiesdocumented as of this encounter (statuses as of 06/11/2023) Medications Medication Sig Dispensed Refills Start Date [...] BY MOUTH EVERY MORNING 90 Capsule 10/11/2022 10/11/19 24 Active Additional Information Patient taking differently: 400 mg Oral BID (.AM/PM), Reported on 06/09/2023 Insulin Syringe-Needle U-100 30G X 5/16" 1 ML USE TO INJECT INSULIN TWICE DAILY 200 Each 08/31/2022 08/31/19 24 Active Glucose Blood In Vitro Strip USE TO TEST BLOOD SUGAR TWICE DAILY 200 Strip 08/31/2022 08/31/19 24 Active OneTouch Delica Plus [id number] USE TO TEST BLOOD SUGAR TWICE DAILY 400 Each 08/31/2022 08/31/19 24 Active NovoLIN 70/30 (70-30) 100 UNIT/ML Subcutaneous SuspensionIndicat ions:Type 2 diabetes mellitus with hemoglobin A1c goal of less than 8.0% (HCC) INJECT 25 UNITS SUBCUTANEOUSLY BEFORE BREAKFAST AND INJECT 10 UNITS BEFORE SUPPER. 40 mL 08/31/2022 08/31/19 24 Active metFORMIN HCl 1000 MG Oral Tablet (Glucophage)Indic ations:Type 2 diabetes mellitus with hemoglobin A1c goal of less than 7.0% (HCC) TAKE ONE TABLET BY MOUTH IN THE MORNING AND ONE TABLET BEFORE BEDTIME WITH FOOD. 200 Tablet 08/31/2022 08/31/19 24 Active Clopidogrel Bisulfate 75 [...] 100 Tablet 3 03/06/2023 03/05/20 24 Active OneTouch Verio w/Device Kit [...] by mouth in the morning. 0 Active Vitron-C 65-125 MG Oral Tablet (Iron-Vitamin C 65-125 mg per tab) Take 1 Tablet by mouth daily with dinner. 90 Tablet 1 06/10/2022 06/09/19 24 Discontinu ed(Medicat ion List Clean Up) documented as of this encounter (statuses as of 06/11/2023) Active Problems Problem Noted Date Diagnosed Date [...] repeat CT. 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 05/08/2022 Last Assessment [...] as of this encounter (statuses as of 06/11/2023) Resolved Problems Problem Noted Date Diagnosed Date [...] as of this encounter (statuses as of 06/11/2023) Immunizations Name Administration Dates Next Due COVID-19 mRNA, LNP-s, No Pre serve, 2-Dose Series ([employer] 03/10/2021,08/27/2020,08/06/2020 Pneumococcal Conjugate Vacc, 13 Valent (Prevnar) [...] Sign Reading Time Taken Comments Blood Pressure 118/58 06/09/2023 10:46 AM EST Pulse 90 06/09/2023 10:46 AM EST Temperature 36.7 C (98.1 F) 06/09/2023 1 0:46 AM EST Respiratory Rate 18 06/09/2023 10:4 6 AM EST Oxygen Saturation 98% 06/09/2023 10: 46 AM EST Inhaled Oxygen Concentration - - Weight 72.5 kg (159 lb 14.4 oz) 024 10:46 AM EST Height - - Body Mass Index 28.33 04/26/2023 1:17 AM EST documented in this [...] Progress Notes * Cheryl Ruiz RN - 06/09/2023 10:33 AM EST [facility] Compensation Advisor JUAN Visit Date: 06/09/2023 Time: 10:33 AM Name: Martine Russell : 1940 Current Concerns: Pt seen for JUAN #1 Admitted to [facility] 06/01 - 06/08/23 for GI Bleed, hematemesis 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 Given 2 units PRBC's x 2 during hospitalization Recommends plavix on hold until further discussed with provider with close monitoring of H&H Alendronate stopped Protonix to be taken BID Also needs monitoring of magnesium levels, likely decreased with increased use of pantoprazole Today pt reports she has some weakness since being hospitalized - using walker Discussed need for PT for strengthening but she declines States she had a bowel movement since home and no black stool or bright red blood Denies any pain Bottles out med review done and reviewed all recommendations by [facility] as listed on d/c instructions Pt and both aware and knowledgeable of changes Has pcp f/u on Monday Physical Exam: BP 118/58 | Pulse 90 | Temp 36.7 C (98.1 F) | Resp 18 | Wt 72.5 kg (159 lb 14.4 oz) | SpO2 98%| BMI 28.33 kg/m | BSA 1.8 m Pain 0 Physical Exam Cardiovascular: Rate and Rhythm: Normal rate and regular rhythm. Pulses: Normal pulses. Heart sounds: Normal heart sounds. Pulmonary: Effort: Pulmonary effort is normal. Breath sounds: Normal breath sounds. Abdominal: General: Bowel sounds are normal. Palpations: Abdomen is soft. Musculoskeletal: Right lower leg: Edema (+1) present. Left lower leg: Edema (+1) present. Skin: General: Skin is warm and dry. Neurological: Mental Status: She is alert and oriented to person, place, and time. Problems/Symptoms: Review of Systems Constitutional: Positive for fatigue. HENT: Negative. Eyes: Negative. Respiratory: Positive for shortness of breath (BYRNES - at baseline). Cardiovascular: Positive for leg swelling. Gastrointestinal: Negative. Genitourinary: Negative. Musculoskeletal: Positive for arthralgias. Skin: Negative. Neurological: Negative. Psychiatric/Behavioral: Negative. Medication Reconciliation: (See medication list) Does patient take medications as ordered: Yes Patient Well Being: PHQ2/9: No questionnaires available. No change in living situation Denies falls [facility] Completed this Visit: Yes. [facility]: Reason Completed: Status post ED visit/hospital admission [facility] ([facility]) Fall Risk Assessment Tool Age 65+: Yes (06/09/231099) Diagnosis (3 or more co-existing): Yes (06/09/231099) Prior history of falls within 3 months: No (06/09/231099) Incontinence: No (06/09/231099) Visual impairment: No (06/09/231099) Impaired functional mobility: Yes (06/09/231099) Environmental hazards: No (06/09/231099) Poly Pharmacy (4 or more prescriptions - any type): Yes (06/09/231099) Pain affecting level of function: No (06/09/231099) Cognitive impairment: No (06/09/231099) Score - a score of 4 or more is considered at risk for fallin (06/09/231099) [facility] Interventions: Fall education provided, reviewed/provided Fall brochure Advanced Care Planning: No documentation, acp in progress. Reinforcement/Education: DIABETES: -Blood sugar testing schedule: Twice a [...] daily and as needed Daily wts via [facility] as much as possible APAP prn pain Keep all appts as scheduled TE to PCP for referral to MTM with possible use of freestyle or dexcom Stop Alendronate Plavix on hold F/u with PCP Monday Home Interventions Provided: Home Intervention: Other; eval Consulted PCP/Specialist Reinforced current Plan of Care, including self-management and medication regimen Patient's 'Red Flags': Increased weakness/fatigue Bright red blood or black tarry stools Increased SOB Patient Needs to Remember: Call [facility] at with any new or worsening health concerns or problems, red flag symptoms. Referrals Needed: [facility] Follow Up: Is there cellular connectivity/connectivity in the home? Yes Does the patient have internet in the home? Yes Patient encouraged to call the intake phone number for all urgent but not emergent issues. Is the patient new to [facility] within the last 30 days? No, Assess appropriateness for upcoming telehealth visits. Cancel telehealth visits & schedule home visit with care steam conditioning operator(s)as indicated. Provider is in agreement with Plan of Care: Yes Scheduled to follow up with patient in 2 weeks. Cheryl Ruiz RN 06/09/2023 10:33 AM documented in this encounter Plan of Treatment Upcoming Encounters Date Type Department Care Team (Late st Contact Info) Description 06/13/2023 11:00 AM EST Office Visit [place] [address] [place] [phone] Alexy Al MD [address] [place] [address] 06/27/2023 4:00 PM EST [facility] [address] [facility] [address] Cheryl Ruiz RN [address] [place] [address] 07/06/2023 2:20 PM EST Office Visit [facility] [address] [facility] [phone] Alexy Al MD [address] [facility] [place] [address] 08/17/2023 12:40 PM EDT Office Visit Hepatology, [facility] [address] [place] [address] Dayan Sanford DO [address] [place] [address] 10/06/2023 10:40 AM EDT Office Visit [facility] [address] [place] [phone] Alexy Al MD [address] [place] [address] Health Maintenance Due Date Last Done Comments [...] D LEVEL ONCE IN A LIFETIME-USE SMARTSET# [id number] Completed 01/27/2021, 08/21/2017, 03/08/2017, Additional history exists [...] this encounter Medical Devices Implanted Type Area Wind Power Project Manager Device Identifier Shelf Expiration Date Model / Serial / Lot Stent Graft [id number] - [id number] - [id number] Implanted:Qty: 1 on 05/09/2022 by Cedrick Phillips MD at OR [facility] [place] : SHILPINAZIA [id number] 02/11/2025 8545 3 / [id number] / [id number] documented as of this encounter Advance Directives [...] Directives occurred with: Patient Care Teams Program Rep Relationship Specialty Start Date End Date Alexy Al MD [address] [place] [address] PCP - General 07/29/08 documented as of this encounter
--- OUTSIDE RECORDS SUMMARY | 2023-06-20 07:38 | External Medical Summary ---
Author Name Unknown Address Unknown Organization K01:[facility] [address] [place] [address] Laboratory Report Ordering Provider Test Date Status CLARK DOMINGUEZ 06/13/2023 12:05:42 Final Observation Date Value Abnormality Reference (Units ) Status Magnesium 06/13/2023 12:05:42 1.4 Below low normal 1.5 -2.6 (mg/dL) Final Performing Location [facility] - [address] [place] [address]
--- OUTSIDE RECORDS SUMMARY | 2023-06-20 07:38 | External Medical Summary ---
Author Name Unknown Address Unknown Organization K01:[facility] - [address] [place] [address] Laboratory Report Ordering Provider Test Date Status CAR MARCUM 06/13/2023 12:05:42 Final Observation Date Value Abnormality Reference (Units ) Status Iron 06/13/2023 12:05:42 18 Below low normal 33-151 (ug/dL) Final Iron-binding capacity 06/13/2023 12:05:42 287 250-425 (ug/dL) Final Transferrin Sat % 06/13/2023 12:05:42 6 Below low normal 15-55 (%) Final Performing Location [facility] - [address] [place] [address]
--- OUTSIDE RECORDS SUMMARY | 2023-06-20 07:39 | External Medical Summary | Summary of Care ---
Author Name Unknown Organization [facility] Address [address] [facility] [place] [address] Phone [phone] Care Team Providers Care Second Worker Name Role Phone Alexy Al MD Primary Care Provider +1- [phone] Encounter Details Date Type Department Care Team (Late st Contact Info) Description 06/01/2023 Orders Only Gastroenterology, [facility] [address] [place] [address] Kevin Hardwick MD [address] [place] [address] Allergies No known active allergiesdocumented as of this encounter (statuses as of 06/01/2023) Medications Medication Sig Dispensed Refills Start Date [...] in the event of anaphylactic reaction per [facility] IV iron anaphylaxis protocol). May [...] 1 08/31/2022 4 Active OneTouch Delica Plus [id number] USE TO TEST BLOOD SUGAR TWICE DAILY [...] as of this encounter (statuses as of 06/01/2023) Active Problems Problem Noted Date Diagnosed Date [...] repeat CT. 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 angina pectoris 05/08/2022 Last Assessment [...] as of this encounter (statuses as of 06/01/2023) Resolved Problems Problem Noted Date Diagnosed Date [...] as of this encounter (statuses as of 06/01/2023) Immunizations Name Administration Dates Next Due COVID-19 [...] Description 06/05/2023 12:30 PM EST Home Visit [facility] [address] [facility] [place] [address] Cheryl Ruiz RN [address] [facility] [place] [address] 07/06/2023 2:20 PM EST [facility] [address] [facility] [facility] [phone] Alexy Al MD [address] [place] [facility] [place] [address] 08/17/2023 12:40 PM EDT Office Visit Hepatology, [facility] [address] [facility] [place] [address] Dayan Sanford DO [address] [place] [address] 10/06/2023 10:40 AM EDT Office Visit [facility] [address] [place] [phone] Alexy Al MD [address] [place] [address] Health Maintenance Due Date Last Done Comments [...] D LEVEL ONCE IN A LIFETIME-USE SMARTSET# [id number] Completed 01/27/2021, 08/21/2017, 03/08/2017, Additional history exists Zoster Vaccines Completed 12/06/2022, 05/09/2022, 06/04/2015 Influenza Vaccine (FLU shot) Completed , 03/14/2022, 02/01/2021, Additional history exists GARDASIL-HPV IMMUNIZATION SERIES Aged Out No longer eligible based on patient's age to complete this topic MENINGOCOCCAL (MENACTRA/MENVEO) Aged Out No longer eligible based on patient's age to complete this topic documented as of this encounter Medical Devices Implanted Type Area Weight Engineer Device Identifier Shelf Expiration Date Model / Serial / Lot Stent Graft [id number] - [id number] - [id number] Implanted:Qty: 1 on 05/09/2022 by Cedrick Phillips MD at [place] [facility] [place] : SHILPINAZIA [id number] 02/11/2025 8545 3 / [id number] / [id number] documented as of this encounter Procedures Procedure Name Priority Date/Time Associated Diagnosis Comments UPPER GI ENDOSCOPY 06/01/2023 documented in this encounter Results * UPPER GI ENDOSCOPY (06/01/2023) 06/01/2023 Kevin Hardwick MD GASTRO UPPER documented in this encounter [...] Advance Directives occurred with: Patient Care Teams Second Worker Relationship Specialty Start Date End Date Alexy Al MD [address] [place] [facility] [place] [address] PCP - General 07/29/08 documented as of this encounter
--- OUTSIDE RECORDS SUMMARY | 2023-06-20 07:39 | External Medical Summary | Summary of Care ---
Author Name Unknown Organization [facility] Address [address] [facility] [address] Phone [phone] Care Team Providers Care Industrial Gas Servicer Helper Name Role Phone Alexy Al MD Primary Care Provider +1- [phone] Encounter Details Date Type Department Care Team (Late st Contact Info) Description 06/01/2023 Telephone Gastroenterology, [facility] [address] [place] [address] Kevin Hardwick MD [address] [place] [address] Allergies No known active allergiesdocumented as of [...] in the event of anaphylactic reaction per [facility] IV iron anaphylaxis protocol). May [...] 1 08/31/2022 4 Active OneTouch Delica Plus Lodxxs31W USE TO TEST BLOOD SUGAR TWICE DAILY [...] repeat CT. 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 documented in this encounter Plan of Treatment Upcoming Encounters Date Type Department Care Team (Late st Contact Info) Description 06/05/2023 12:30 PM EST Home Visit [facility] [address] [place] [address] Cheryl Ruiz, RN [address] [place] [address] 07/06/2023 2:20 PM EST Office Visit [address] [phone] Alexy Al MD [address] [facility] [place] [address] 08/17/2023 12:40 PM EDT Office Visit Hepatology, [facility] [address] [place] [address] Dayan Sanford DO [address] [place] [address] 10/06/2023 10:40 AM EDT Office Visit Family Practice, [place] [address] [phone] Alexy Al MD [address] [facility] [place] [address] Health Maintenance Due Date Last Done Comments [...] D LEVEL ONCE IN A LIFETIME-USE SMARTSET# [id number] Completed 01/27/2021, 08/21/2017, 03/08/2017, Additional history exists [...] this encounter Medical Devices Implanted Type Area Steel Rule Die Maker Apprentice Device Identifier Shelf Expiration Date Model / Serial / Lot Stent Graft [id number] - [id number] - [id number] Implanted:Qty: 1 on 05/09/2022 by Cedrick Phillips MD at [facility] [place] : MARTIN [id number] 02/11/2025 8545 3 / [id number] / [id number] documented as of this encounter Advance Directives [...] Advance Directives occurred with: Patient Care Teams Industrial Gas Servicer Helper Relationship Specialty Start Date End Date Alexy Al MD [address] [place] [address] PCP - General 07/29/08 documented as of this encounter
--- OUTSIDE RECORDS SUMMARY | 2023-06-20 07:39 | External Medical Summary | Summary of Care ---
Author Name Unknown Organization [facility] Address [address] [facility] [place] [address] Phone [phone] Care Team Providers Care Optimization Specialist Name Role Phone Alexy Al MD Primary Care Provider +1- [phone] Encounter Details Date Type Department Care Team (Late st Contact Info) Description 06/01/2023 Telephone Gastroenterology, [facility] [address] [place] [address] Kevin Hardwick MD [address] [place] [address] Allergies No known active allergiesdocumented as of [...] in the event of anaphylactic reaction per [facility] IV iron anaphylaxis protocol). May repeat every [...] 1 08/31/2022 4 Active OneTouch Delica Plus Ozgbls40K USE TO TEST BLOOD SUGAR TWICE DAILY [...] repeat CT. Coronary artery disease invo lving [place] heart without angina pectoris 05/08/2022 Last Assessment [...] encounter Miscellaneous Notes * Telephone Encounter - Astrid Prado OSA - 06/02/2023 11:36 AM EST Lmm for pt. * Telephone Encounter - Kevin Hardwick MD - 06/01/2023 4:01 PM EST Needs repeat EGD in 3 months for repeat banding at [facility]. documented in this encounter Plan of Treatment Upcoming Encounters Date Type Department Care Team (Late st Contact Info) Description 06/05/2023 12:30 PM EST Home Visit [facility] [address] [facility] [place] [address] Cheryl Ruiz, RN [address] [facility] [place] [address] 07/06/2023 2:20 PM EST [facility] [address] [place] [phone] Alexy Al MD [address] [place] [facility] [place] [address] 08/17/2023 12:40 PM EDT Office Visit Hepatology, [facility] [address] [facility] [place] [address] Dayan Sanford DO [address] [facility] [place] [address] 10/06/2023 10:40 AM EDT [facility] [address] [place] [phone] Alexy Al MD [address] [place] [facility] [address] Health Maintenance Due Date Last Done Comments [...] D LEVEL ONCE IN A LIFETIME-USE SMARTSET# [id number] Completed 01/27/2021, 08/21/2017, 03/08/2017, Additional history exists [...] this encounter Medical Devices Implanted Type Area Dispatch Coordinator Device Identifier Shelf Expiration Date Model / Serial / Lot Stent Graft [id number] - [id number] - [id number] Implanted:Qty: 1 on 05/09/2022 by Cedrick Phillips MD at [facility] GET[place]E : MARTIN [id number] 02/11/2025 8545 3 / [id number] / [id number] documented as of this encounter Advance Directives [...] Advance Directives occurred with: Patient Care Teams Optimization Specialist Relationship Specialty Start Date End Date Alexy Al MD [address] [place] [address] PCP - General 07/29/08 documented as of this encounter
[2023-06-20 07:48] LABS: iSTAT Creatinine 2.2 mg/dl (0.6-1.3); iSTAT Hemoglobin 6.5 g/dl (12.0-16.0); iSTAT Ionized Calcium 1.09 mmol/l (1.12-1.32); iSTAT Potassium 4.5 mmol/L (3.3-5.0)
[2023-06-20] MEDS ORDERED: SODIUM CHLORIDE 0.9% 250 ML IV PRN (08:03)
[2023-06-20] MEDS: SODIUM CHLORIDE 0.9% 500 ML IV ONE (08:05)
[2023-06-20 08:16] LABS: Hematocrit (blood only) 19.9 % (37.0-47.0); Hemoglobin 6.6 g/dl (12.0-16.0); Mean Corpuscular Hemoglobin 28.1 pg (25.0-34.0); Mean Corpuscular Hgb Conc 33.2 g/dL (32.0-36.0); Mean Corpuscular Volume 84.7 fL (80.0-100.0); Mean Platelet Volume 12.5 fL (9.4-12.4); Platelet Count 123 K/uL (130-400); Red Blood Count 2.35 M/uL (4.20-5.40); White Blood Count 4.95 K/ul (4.8-10.8)
[2023-06-20 08:28] LABS: Albumin Globulin Ratio 1.1 (0.9-2); Albumin Level 2.8 gm/dl (3.4-5.0); BUN Creatinine Ratio 21.2 (10-20); Bilirubin,Total 0.8 mg/dl (0.2-1.0); Calcium 8.9 mg/dl (8.6-10.3); Creatinine Clr Calc Pharmacy 22.2 ml/min; Est GFR (African American) 28.1 ml/min; Est GFR (Non-African American) 24.3 ml/min; Globulin 2.5 gm/dl (2.5-4.0); Magnesium 1.4 mg/dl (1.7-2.4); Potassium 4.5 mmol/L (3.5-5.1); Total Protein 5.3 gm/dl (6.0-8.3)
[2023-06-20 08:34] LABS: INR 1.3 (0.9-1.1)
--- NOTE | 2023-06-20 08:53 | History & Physical Report ---
Date of Service June 20, 2023 Assessment & Plan (1) Esophageal varices: (2) Melena: (3) Acute GI bleeding: (4) Acute blood loss anemia: (5) Hepatic cirrhosis: Plan: Acute GI bleeding Rectal bleed Hematemesis s/p EGD and banding of esophageal varices Acute blood loss anemia 2/2 GI bleed -Admit to PCU -Hemoglobin of 6.6 upon presentation, hematocrit 19.9, ordered 2 units transfused, keep hemoglobin level greater than 7 -GI consultation for history of EGD and banding of esophageal varices on 06/01/2023 - Large varices in the lower third of the esophagus on EGD previously - NPO in case GI wants to repeat EGD at this time -Will start on IV octreotide, Protonix IV (consider gtt), 1 g ceftriaxone now -Previously had held Plavix due to recent SMA stent with a history of Ischemic colitis, she was resumed on baby aspirin daily which has been ongoing since her last discharge will need to hold -Will require vascular surgery discussion with C -Hold alendronate -Continue Coreg -Noted that she would most likely require TIPS procedure and repeat endoscopy in 3 months Hypomagnesemia - magnesium levels noted while hospitalized previously per chart review - was 1.4 on admission, will replete with IV - Pt on pantoprazole, known side effect as well - Pt's home supplement increased to BID dosing when she was last discharge JANELL - Initially cr 1.8 - Hold home diuretic and losartan - Avoid nephrotoxic agents/contrast History of liver cirrhosis - fluids and diuretic was on hold Monitor for volume overload - GI consultation as above Chronic heart failure with preserved ejection fraction - Received fluids and diuretic was on hold Home diuretic and losartan resumed on discharge Monitor for volume overload PCP follow up DMII Hgba1c of 5.6 on 06/02 Hold home medications Lantus and insulin sliding scale per protocol Glycemic pharmacy consult Resume home meds on discharge with pcp follow up History of CAD Holding Plavix as noted above Continue beta-blockers and statin Further discussion with pcp about risk/benefit of plavix use per GI HTN held Losartan and diuretic Home diuretic and losartan resumed on discharge cont. Coreg (6) History of ischemic colitis: (7) Chronic heart failure with preserved ejection fraction (HFpEF): (8) HTN (hypertension): (9) Hypomagnesemia: History of Present Illness Chief Complaint: BRBPRB x 2 episodes Primary Care Provider: Alexy Al MD This is an 82 yo F with PMHx of DM II, diabetic peripheral angiopathy, hyperlipidemia, hyperparathyroidism, lung nodules, heart failure with preserved ejection fraction, portal hypertension, aortic ectasia, superior mesenteric artery stenosis s/p stentin Apr 2022 at [facility] [place], history of valvular disease, hype rtension, history of CVA, history of CAD, GERD, history of pericolonic abscess, history of hepatic cirrhosis, history of GI bleed associated with intestinal diverticulosis, osteoporosis, anemia, visual field loss poststroke, history of hyponatremia presents with rectal bleed. Patient has had multiple readmissions: 04/24/2023 at [facility] for GI bleed and received total of 3 units of PRBC. Was on Sandostatin, Protonix drip and Rocephin. EGD was okay except showing grade 2 esophageal varices. And she was transferred to [place] on 04/25/23 for possible mesenteric ischemia and ischemic colitis and possible need for IR intervention. GI did colonoscopy which revealed diverticulosis with old bleeding and no active bleeding and there was no evidence of recurrent ischemic colitis. Patient restarted on Plavix and discharged to follow-up with vascular surgery and metoprolol was changed to Coreg. And advised to follow with hepatology for liver cirrhosis. 05/12/2023- 05/14/23 at [facility] with acute GI bleeding with a mix of black and bright red blood. She was s/p 2 units of PRBC. EGD was done which was again showed grade 2 esophageal varices. Portal hypertension gastropathy. Normal examined duodenum. Hemoglobin was stabilized and she was again discharged. S 06/01/2023-06/08/2023 at [facility] Was transfused 2 units of pRBCs on 06/01/23 and 06/04/23 during hospitalization. Because of esophageal varices was also treated with Sandostatin drip, PPI drip and Zosyn. Held plavix during hospitalization and on discharge- GI recommending further discussion of risks and benefits in this pt who is high risk for bleed again. Stop alendronate. Got IV rocephin x 6 doses, discharged with 1 day of levaquin per ID recs for 7 days. Today the patient presents with acute onset of bright red blood per rectum which started last night. This morning she had an episode of gushing bright red blood per rectum around 6 AM today. She presented to the ER afterwards, and has not had a bowel movement since being here. Hemoglobin is found to be 6.6, hematocrit 19.9, her magnesium is low at 1.4, JANELL with creatinine of 1.8 and BUN of 40. Allergies Allergy/AdvReac Type Severity Reaction Status Date / Time nickel Allergy "Cheap Verified 06/05/23 08:36 metal = rash" Home Medications Medication Instructions Recorded Confirmed Type Osteo Bi-Flex 1 tab PO DAILY 06/01/23 06/01/23 History Vitron-C 1 tab PO DAILY 06/01/23 06/01/23 History atorvastatin 40 mg tablet 40 mg PO DAILY 06/01/23 06/01/23 History biotin 1 mg capsule 1 mg PO DAILY 06/01/23 06/01/23 History carvedilol 3.125 mg tablet 3.125 mg PO BID 06/01/23 06/01/23 History cinacalcet 30 mg tablet (Sensipar) 30 mg PO DAILY 06/01/23 06/01/23 History clopidogrel 75 mg tablet 75 mg PO DAILY 06/01/23 06/01/23 History epinephrine 1 mg/mL injection 0.3 mg subcut Q4H PRN Anaphylaxis 06/01/23 06/01/23 History solution insulin human U-100 NPH-regulr 25 unit subcut UD 06/01/23 06/01/23 History 70-30 mix 100 unit/mL subcutaneous susp (Novolin 70/30 U-100 Insulin) losartan 25 mg tablet 25 mg PO DAILY 06/01/23 06/01/23 History melatonin 10 mg tablet 10 mg PO HS PRN Insomnia 06/01/23 06/01/23 History metformin 1,000 mg tablet 1,000 mg PO BID 06/01/23 06/01/23 History jetrcyqmkpcd-knxfxjug-elhitj tablet 1 tab PO DAILY 06/01/23 06/01/23 History torsemide 20 mg tablet 40 mg PO DAILY 06/01/23 06/01/23 History vitamin B complex 1 cap PO DAILY 06/01/23 06/01/23 History levofloxacin 750 mg tablet 750 mg PO DAILY #1 tab 06/08/23 Rx magnesium oxide 400 mg PO BID #60 caps 06/08/23 Rx pantoprazole 40 mg tablet,delayed 40 mg PO BID #60 tabs 06/08/23 Rx release Past Med/Surg History Medical History Encounter for pre-operative examination Hepatic cirrhosis History of ischemic colitis GI bleed pt unaware CHF (congestive heart failure) Anemia Osteoporosis GERD (gastroesophageal reflux disease) Hyperparathyroidism Hypertension Poor historian Abnormal EKG pt unaware Acute respiratory failure CVA (cerebral vascular accident) Jan 2022 per pt > has some right hand weakness > does not follow with neuro Weakness of right upper extremity s/p CVA, just on occasion Lumbago Other and unspecified hyperlipidemia Type 2 diabetes mellitus without complications Essential (primary) hypertension Coronary atherosclerosis of [place] coronary vessel Acute heart failure with preserved ejection fraction (HFpEF) pt unaware Acute respiratory failure with hypoxia pt unaware Surgical History History of colonoscopy History of endovascular stent graft for abdominal aortic aneurysm unsure if this is exactly what she has, but had done in Apr 2022 at [place] she thinks it was for AAA S/P tonsillectomy S/P hysterectomy S/P appendectomy History of heart artery stent placed 1994 S/P cholecystectomy History of cataract surgery bilat Family History Mother , age 70 of a stroke and congestive heart failure Stroke CHF (congestive heart failure) Father , in his 70s of an [place] Myocardial infarction Social History Smoking Status: Never smoker packs per day: 4; Second Hand Exposure: No; Do You Dip or Chew Tobacco: No; Hx Alcohol Use: No Hx Substance Use: No Preferred Language: Haitian Communication Ability: Effective Wood Getter Required: No Beliefs That Will Affect Care: None marital status: Current Living Situation: Spouse current occupational status: retired current occupation: Multiple different jobs retiring in her 50s. Feels Safe at Home: Yes Assistive Devices: Walker Results & Data Results & Data Vital Signs (Past 12 Hours) Vital Signs Temp Pulse Pulse Resp BP BP Pulse Ox 06/20/23 08:29 86 06/20/23 08:05 88 18 108/80 100 06/20/23 07:49 36.9 C 83 18 113/52 L 100 O2 Del Method 06/20/23 08:29 06/20/23 08:05 Room Air 06/20/23 07:49 Room Air Laboratory Results 06/20/23 06/20/23 07:48 07:35 WBC 4.95 RBC 2.35 L Hgb 6.6 L* POC Hgb 6.5 L* Hct 19.9 L* POC Hct 19 L* MCV 84.7 MCH 28.1 MCHC 33.2 RDW Std Deviation 49.0 H RDW Coeff of Vanita 16.0 H Plt Count 123 L MPV 12.5 H PT 14.0 H INR 1.3 H POC Sodium 137 Sodium 137 POC Potassium 4.5 Potassium 4.5 POC Chloride 98 L Chloride 99 Carbon Dioxide 28 POC Total CO2 27 Anion Gap 10 POC Anion Gap 18.0 POC BUN 40 H BUN 40 H Creatinine 1.89 H POC Creatinine 2.2 H Est Cr Clr Drug Dosing 22.2 Est GFR ( Amer) 28.1 Est GFR (Non-Af Amer) 24.3 BUN/Creatinine Ratio 21.2 H Glucose 102 H POC Glucose (other) 100 H Calcium 8.9 POC Ioniz Calcium Cony 1.09 L Magnesium 1.4 L Total Bilirubin 0.8 AST 37 ALT 22 Alkaline Phosphatase 41 Total Protein 5.3 L Albumin 2.8 L Globulin 2.5 Albumin/Globulin Ratio 1.1 Lipase 34
[2023-06-20 09:00] LABS: Basophils # (auto) 0.03 K/uL (0.00-0.20); Basophils % (auto) 0.6 %; Eosinophils # (auto) 0.18 K/uL (0.00-0.50); Eosinophils % (auto) 3.6 %; Immature Granulocytes # (auto) 0.01 K/uL (0.01-0.20); Immature Granulocytes % (auto) 0.2 %; Lymphocytes # (auto) 1.42 K/uL (1.20-3.40); Lymphocytes % (auto) 28.7 %; Monocytes # (auto) 0.58 K/uL (0.11-0.59); Monocytes % (auto) 11.7 %; Neutrophils # (auto) 2.73 K/uL (1.40-6.50); Neutrophils % (auto) 55.2 %; Toxic Vacuolation 1+
--- NOTE | 2023-06-20 09:06 | Electrocardiogram Report ---
Test Reason : Blood Pressure : / mmHG Vent. Rate : 087 BPM Atrial Rate : 087 BPM P-R Int : 180 ms QRS Dur : 080 ms QT Int : 394 ms P-R-T Axes : 034 016 123 degrees QTc Int : 474 ms Normal sinus rhythm Low voltage QRS Old Anterior infarct (cited on or before 01-JUN-2023) Diffuse Nonspecific T wave abnormality Abnormal ECG When compared with ECG of 01-JUN-2023 02:25, No significant change Confirmed by Roosevelt Pereyra ([id number]) on 06/20/2023 9:06:08 AM Referred By: Confirmed By:Roosevelt Pereyra
--- NOTE | 2023-06-20 09:29 | Gastrointestinal Consultation ---
Date of Consultation June 20, 2023 Assessment & Plan (1) Melena: (2) Hepatic cirrhosis: Pt is a 82 yo female w cirrhosis (MELD 15), presented with melena and anemia. 3 EGDs since 04/2023, last done 2 weeks ago w findings of large esophageal varices, banded, gastric varices and portal hypertensive gastropathy. She was previously on Plavix but not DC'd and on ASA 81mg daily. - NPO - PPI bolus and gtt - Octreotide bolus and gtt - Ceftriaxone 1g IV daily - PRBC transfusion for goal Hgb >7 - Recommend transfer to [facility] [place] for TIPS placement evaluation Supervising Physician Co-Signing Physician Notes I saw and evaluated the patient. The patient has been seen by a number of her local television maintenance worker over the past 6 to 8 weeks for recurrent problems of melena. She recently underwent an upper endoscopy where she was found to have esophageal varices in addition to gastric varices. The esophageal varices were band ligated late last month. The patient presented with melena ongoing for several days after restarting aspirin as an outpatient. 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 The history is highly suggestive of bleeding from her gastric varices, given the recent endoscopic interventions and rectal by partner I would recommend that the patient be transferred to a center with TIPS capability. In the meantime the patient should be started on broad- spectrum antibiotic coverage, and octreotide drip and a proton pump inhibitor. History of Present Illness Reason for Consultation: Melena Requesting Physician: Dr. Zuly Humphreys Attending Physician: Dr. Jeromy Murrell History of Present Illness Pt is a 82 yo female w PMHx of DM II, HLD, hyperparathyroidism, CHF, SMA stenosis s/p stent placement, HTN, CVA, aortic ectasia, diverticulosis, hx of colonic ischemia who presented wo ED w melena since this morning. Pt was just discharged about 2 weeks ago, after admitted for similar symptoms. She underwent 3 EGDs since 04/2023, last done 06/01/2023 w findings of large esophageal varices that were banded, gastric varices, portal hypertensive gastropathy. Last colonoscopy 04/2023 - diverticulosis. She was on Plavix, but this was DC'd after her last GI bleed episode and is on ASA 81mg daily. On eval, she was noted to be anemic w H/H of 6/19.9, BUN/Cr 40/1.89 Allergies Allergy/AdvReac Type Severity Reaction Status Date / Time nickel Allergy "Cheap Verified 06/05/23 08:36 metal = rash" Home Medications Medication Instructions Recorded Confirmed Type Osteo Bi-Flex 1 tab PO DAILY 06/01/23 06/01/23 History Vitron-C 1 tab PO DAILY 06/01/23 06/01/23 History atorvastatin 40 mg tablet 40 mg PO DAILY 06/01/23 06/01/23 History biotin 1 mg capsule 1 mg PO DAILY 06/01/23 06/01/23 History carvedilol 3.125 mg tablet 3.125 mg PO BID 06/01/23 06/01/23 History cinacalcet 30 mg tablet (Sensipar) 30 mg PO DAILY 06/01/23 06/01/23 History clopidogrel 75 mg tablet 75 mg PO DAILY 06/01/23 06/01/23 History epinephrine 1 mg/mL injection 0.3 mg subcut Q4H PRN Anaphylaxis 06/01/23 06/01/23 History solution insulin human U-100 NPH-regulr 25 unit subcut UD 06/01/23 06/01/23 History 70-30 mix 100 unit/mL subcutaneous susp (Novolin 70/30 U-100 Insulin) losartan 25 mg tablet 25 mg PO DAILY 06/01/23 06/01/23 History melatonin 10 mg tablet 10 mg PO HS PRN Insomnia 06/01/23 06/01/23 History metformin 1,000 mg tablet 1,000 mg PO BID 06/01/23 06/01/23 History gyaziucnszyu-lrjlreth-qokilc tablet 1 tab PO DAILY 06/01/23 06/01/23 History torsemide 20 mg tablet 40 mg PO DAILY 06/01/23 06/01/23 History vitamin B complex 1 cap PO DAILY 06/01/23 06/01/23 History levofloxacin 750 mg tablet 750 mg PO DAILY #1 tab 06/08/23 Rx magnesium oxide 400 mg PO BID #60 caps 06/08/23 Rx pantoprazole 40 mg tablet,delayed 40 mg PO BID #60 tabs 06/08/23 Rx release Patient History Medical History Encounter for pre-operative examination Hepatic cirrhosis History of ischemic colitis GI bleed pt unaware CHF (congestive heart failure) Anemia Osteoporosis GERD (gastroesophageal reflux disease) Hyperparathyroidism Hypertension Poor historian Abnormal EKG pt unaware Acute respiratory failure CVA (cerebral vascular accident) Jan 2022 per pt > has some right hand weakness > does not follow with neuro Weakness of right upper extremity s/p CVA, just on occasion Lumbago Other and unspecified hyperlipidemia Type 2 diabetes mellitus without complications Essential (primary) hypertension Coronary atherosclerosis of [place] coronary vessel Acute heart failure with preserved ejection fraction (HFpEF) pt unaware Acute respiratory failure with hypoxia pt unaware Surgical History History of colonoscopy History of endovascular stent graft for abdominal aortic aneurysm unsure if this is exactly what she has, but had done in Apr 2022 at [place] she thinks it was for AAA S/P tonsillectomy S/P hysterectomy S/P appendectomy History of heart artery stent placed 1994 S/P cholecystectomy History of cataract surgery bilat Family History Mother , age 70 of a stroke and congestive heart failure Stroke CHF (congestive heart failure) Father , in his 70s of an [place] Myocardial infarction Social History Smoking Status: Never smoker packs per day: 4; Second Hand Exposure: No; Do You Dip or Chew Tobacco: No; Hx Alcohol Use: No Hx Substance Use: No Preferred Language: Uzbek Communication Ability: Effective Human Resource Internship Required: No Beliefs That Will Affect Care: None marital status: Current Living Situation: Spouse current occupational status: retired current occupation: Multiple different jobs retiring in her 50s. Feels Safe at Home: Yes Assistive Devices: Walker Review of Systems Review of Systems: All systems reviewed & are unremarkable except as noted in HPI & below Physical Exam Constitutional: WD/WN, vitals as above well groomed, cooperative and comfortable Eyes: PERRL, conjunctivae normal, anicteric sclerae ENMT: external ear and nose normal, oropharynx normal Respiratory: normal respiratory effort, lungs clear to auscultation Cardiovascular: RRR, no murmur, no edema Gastrointestinal (Abdomen): normal bowel sounds, soft, nontender, no hepatosplenomegaly Melanotic stools on bedpan Skin: no rashes, warm and dry no jaundice Psychiatric: A+Ox3, euthymic affect Lymphatic: no lymphedema Results & Data Vital Signs (Past 12 Hours) Vital Signs Temp Pulse Pulse Resp BP BP Pulse Ox 06/20/23 08:45 87 18 122/67 100 06/20/23 08:29 86 06/20/23 08:05 88 18 108/80 100 06/20/23 07:49 36.9 C 83 18 113/52 L 100 O2 Del Method 06/20/23 08:45 Room Air 06/20/23 08:29 06/20/23 08:05 Room Air 06/20/23 07:49 Room Air Laboratory Results Laboratory Results - last 24 hr 06/20/23 06/20/23 06/20/23 07:35 07:48 08:34 WBC 4.95 RBC 2.35 L Hgb 6.6 L* POC Hgb 6.5 L* Hct 19.9 L* POC Hct 19 L* MCV 84.7 MCH 28.1 MCHC 33.2 RDW Std Deviation 49.0 H RDW Coeff of Vanita 16.0 H Plt Count 123 L MPV 12.5 H Immature Gran % (Auto) 0.2 Neut % (Auto) 55.2 Lymph % (Auto) 28.7 Williams % (Auto) 11.7 Eos % (Auto) 3.6 Baso % (Auto) 0.6 Neut # (Auto) 2.73 Lymph # (Auto) 1.42 Williams # (Auto) 0.58 Eos # (Auto) 0.18 Baso # (Auto) 0.03 Immature Gran # (Auto) 0.01 Toxic Vacuolation 1+ PT 14.0 H INR 1.3 H POC Sodium 137 Sodium 137 POC Potassium 4.5 Potassium 4.5 POC Chloride 98 L Chloride 99 Carbon Dioxide 28 POC Total CO2 27 Anion Gap 10 POC Anion Gap 18.0 POC BUN 40 H BUN 40 H Creatinine 1.89 H POC Creatinine 2.2 H Est Cr Clr Drug Dosing 22.2 Est GFR ( Amer) 28.1 Est GFR (Non-Af Amer) 24.3 BUN/Creatinine Ratio 21.2 H Glucose 102 H POC Glucose (other) 100 H Lactate 3.8 H* Calcium 8.9 POC Ioniz Calcium Cony 1.09 L Magnesium 1.4 L Total Bilirubin 0.8 AST 37 ALT 22 Alkaline Phosphatase 41 Total Protein 5.3 L Albumin 2.8 L Globulin 2.5 Albumin/Globulin Ratio 1.1 Lipase 34 Blood Type A Positive Antibody Screen NEGATIVE Crossmatch See Detail
[2023-06-20] MEDS ORDERED: STAT IV/IM STA ×2 (09:38→14:43)
[2023-06-20] MEDS: PANTOprazole 40 MG in SYRINGE 0 ML IV ONE (09:41)
[2023-06-20] MEDS: PANTOprazole 80 MG in DEXTROSE 5% 100 ML IV STA (10:21)
[2023-06-20] MEDS: OCTREOTIDE ACETATE 50 MCG in SYRINGE 9.5 ML IV STA (10:23)
[2023-06-20] MEDS: OCTREOTIDE ACETATE 500 MCG in 0.9 % SODIUM CHLORIDE 100 ML IV SCH (10:32)
[2023-06-20] MEDS: PANTOprazole 40 MG in DEXTROSE 5% MINI-B 100 ML IV SCH (10:43)
[2023-06-20] MEDS: cefTRIAXone SODIUM 1,000 MG in DEXTROSE 5 % MINI-B 50 ML IV SCH (10:44)
--- NOTE | 2023-06-20 12:23 | History & Physical Report ---
Date of Service June 20, 2023 Assessment & Plan (1) Acute lower GI bleeding: (2) Esophageal varices: (3) Hepatic cirrhosis: (4) Melena: (5) Hypomagnesemia: (6) HTN (hypertension): (7) Chronic heart failure with preserved ejection fraction (HFpEF): (8) Elevated lactic acid level: Plan: Acute GI bleeding Rectal bleed hx Diverticulosis hx Hematemesis s/p EGD and banding of esophageal varices Acute blood loss anemia 2/2 GI bleed Hx of liver cirrhosis Elevated Lactic Acid -Admit to PCU -Hemoglobin of 6.6 upon presentation, hematocrit 19.9, ordered 2 units transfused, keep hemoglobin level greater than 7 -GI consultation for history of EGD and banding of esophageal varices on 06/01/2023 - Large varices in the lower third of the esophagus on EGD previously - NPO in case GI wants to repeat EGD at this time - Their team recommends yoder sfer for TIPS procedure -Will start on IV octreotide, Protonix IV, 1 g ceftriaxone now and then daily -Previously had held Plavix due to recent SMA stent with a history of Ischemic colitis, she was resumed on baby aspirin daily which has been ongoing since her last discharge will need to hold -Will require vascular surgery discussion with [facility] -Hold alendronate -Continue Coreg -Noted that she would most likely require TIPS procedure and repeat endoscopy in 3 months -Lactate of 3.8 on admission Hypomagnesemia - magnesium levels noted while hospitalized previously per chart review - was 1.4 on admission, will replete with IV - Pt on pantoprazole, known side effect as well - Pt's home supplement increased to BID dosing when she was last discharge JANELL - Initially cr 1.8 - Hold home diuretic and losartan for now - Avoid nephrotoxic agents/contrast Chronic heart failure with preserved ejection fraction - Received fluids and blood in the ER - last took torsemide this morning - Monitor for volume overload - Last echocardiogram was done April 2022 showing hyperdynamic systolic function, EF of 70% personally reviewed in [email or web address] - She does not appear to be volume overloaded at this time DMII -Hgba1c of 5.6 on 06/02 -Hold home medications -Continue n.p.o. status, insulin sliding scale per protocol History of CAD -Holding Plavix as noted above -Continue beta-blockers and statin -Further discussion with pcp about risk/benefit of plavix use per GI HTN -held Losartan and diuretic -cont. Coreg DVT ppx: teds, scds FEN/GI: NPO Lines: Maintain 2 large bore PIV CODE: DNR/DNI Dispo: From home, accepted at [facility] for transfer by Dr. Raheem Love, anticipate bed available tomorrow on 06/21. Remain inpatient here at [facility] until bed becomes available. A total of 85 minutes were spent with greater than 50% of that time face to face with the patient, personally reviewing all current laboratories, imaging studies, past medication reconciliation, outpatient chart review, and discussion with specialists to collaborate care for the patient with attending. Please see attending documentation for corrections and/or additions. History of Present Illness Chief Complaint: BRBPR Primary Care Provider: Alexy Al MD This is an 82 yo F with PMHx of DM II, diabetic peripheral angiopathy, hyperlipidemia, hyperparathyroidism, lung nodules, heart failure with preserved ejection fraction, portal hypertension, aortic ectasia, superior mesenteric ar colleen stenosis s/p stent in Apr 2022 at [facility] and revascularized in Apr 2023, history of valvular disease, hypertension, history of CVA, history of CAD, GERD, history of pericolonic abscess, history of hepatic cirrhosis, history of GI bleed associated with intestinal diverticulosis, osteoporosis, anemia, visual field loss poststroke, history of hyponatremia presents with rectal bleed. Patient has had multiple readmissions: 04/24/2023 at [facility] for GI bleed and received total of 3 units of PRBC. Was on Sandostatin, Protonix drip and Rocephin. EGD was okay except showing grade 2 esophageal varices. And she was transferred to [place] on 04/25/23 for possible mesenteric ischemia and ischemic colitis and possible need for IR intervention. GI did colonoscopy which revealed diverticulosis with old bleeding and no active bleeding and there was no evidence of recurrent ischemic colitis. Patient restarted on Plavix and discharged to follow-up with vascular surgery and metoprolol was changed to Coreg. And advised to follow with hepatology for liver cirrhosis. 05/12/2023- 05/14/23 at [facility] with acute GI bleeding with a mix of black and bright red blood. She was s/p 2 units of PRBC. EGD was done which was again showed grade 2 esophageal varices. Portal hypertension gastropathy. Normal examined duodenum. Hemoglobin was stabilized and she was again discharged. S 06/01/2023-06/08/2023 at [facility] Was transfused 2 units of pRBCs on 06/01/23 and 06/04/23 during hospitalization. Because of esophageal varices was also treated with Sandostatin drip, PPI drip and Zosyn. Held plavix during hospitalization and on discharge- GI recommending further discussion of risks and benefits in this pt who is high risk for bleed again. Stop alendronate. Got IV rocephin x 6 doses, discharged with 1 day of levaquin per ID recs for 7 days. Today the patient presents with acute onset of bright red blood per rectum which started last night. This morning she had an episode of gushing bright red blood per rectum around 6 AM today. She presented to the ER afterwards, pt has had one bright red bowel movement here while in ER on the bedpan. She reports doing well until last week whenever she was placed back on baby aspirin. Pt took it 4 days and then last evening was the 4th day. Denies any abdominal pain, no nausea or vomiting. Had tolerated oral intake until yesterday. Denies any fever, chills or sweats. Hemoglobin is found to be 6.6, hematocrit 19.9, her magnesium is low at 1.4, JANELL with creatinine of 1.8 and BUN of 40. She has been accepted as a transfer to [facility] for possible TIPS procedure, however due to limited bed availability, will be admitted under our service until bed is available. Accepting physician is Dr. Raheem Love at [facility]. Allergies Allergy/AdvReac Type Severity Reaction Status Date / Time nickel Allergy "Cheap Verified 06/05/23 08:36 metal = rash" Home Medications Medication Instructions Recorded Confirmed Type Osteo Bi-Flex 1 tab PO DAILY 06/01/23 06/20/23 History Vitron-C 1 tab PO DAILY 06/01/23 06/20/23 History atorvastatin 40 mg tablet 40 mg PO DAILY 06/01/23 06/20/23 History biotin 1 mg capsule 1 mg PO DAILY 06/01/23 06/20/23 History carvedilol 3.125 mg tablet 3.125 mg PO BID 06/01/23 06/20/23 History cinacalcet 30 mg tablet (Sensipar) 30 mg PO DAILY 06/01/23 06/20/23 History clopidogrel 75 mg tablet 75 mg PO DAILY 06/01/23 06/20/23 History epinephrine 1 mg/mL injection 0.3 mg subcut Q4H PRN Anaphylaxis 06/01/23 06/20/23 History solution insulin human U-100 NPH-regulr 25 unit subcut UD 06/01/23 06/20/23 History 70-30 mix 100 unit/mL subcutaneous susp (Novolin 70/30 U-100 Insulin) losartan 25 mg tablet 25 mg PO DAILY 06/01/23 06/20/23 History melatonin 10 mg tablet 10 mg PO HS PRN Insomnia 06/01/23 06/20/23 History metformin 1,000 mg tablet 1,000 mg PO BID 06/01/23 06/20/23 History ndlejxnmhbtz-fkchwcrt-hlwhdn tablet 1 tab PO DAILY 06/01/23 06/20/23 History torsemide 20 mg tablet 40 mg PO DAILY 06/01/23 06/20/23 History vitamin B complex 1 cap PO DAILY 06/01/23 06/20/23 History magnesium oxide 400 mg PO BID #60 caps 06/08/23 06/20/23 Rx pantoprazole 40 mg tablet,delayed 40 mg PO BID #60 tabs 06/08/23 06/20/23 Rx release Past Med/Surg History Medical History Encounter for pre-operative examination Hepatic cirrhosis History of ischemic colitis GI bleed pt unaware CHF (congestive heart failure) Anemia Osteoporosis GERD (gastroesophageal reflux disease) Hyperparathyroidism Hypertension Poor historian Abnormal EKG pt unaware Acute respiratory failure CVA (cerebral vascular accident) Jan 2022 per pt > has some right hand weakness > does not follow with neuro Weakness of right upper extremity s/p CVA, just on occasion Lumbago Other and unspecified hyperlipidemia Type 2 diabetes mellitus without complications Essential (primary) hypertension Coronary atherosclerosis of [place] coronary vessel Acute heart failure with preserved ejection fraction (HFpEF) pt unaware Acute respiratory failure with hypoxia pt unaware Surgical History History of colonoscopy History of endovascular stent graft for abdominal aortic aneurysm unsure if this is exactly what she has, but had done in Apr 2022 at [place] she thinks it was for AAA S/P tonsillectomy S/P hysterectomy S/P appendectomy History of heart artery stent placed 1994 S/P cholecystectomy History of cataract surgery bilat Family History Mother , age 70 of a stroke and congestive heart failure Stroke CHF (congestive heart failure) Father , in his 70s of an [place] Myocardial infarction Social History Smoking Status: Never smoker packs per day: 4; Second Hand Exposure: No; Do You Dip or Chew Tobacco: No; Hx Alcohol Use: No Hx Substance Use: No Preferred Language: Romanian Communication Ability: Effective [employer] Required: No Beliefs That Will Affect Care: None marital status: Current Living Situation: Spouse current occupational status: retired current occupation: Multiple different jobs retiring in her 50s. Feels Safe at Home: Yes Assistive Devices: Walker Review of Systems Review of Systems: Constitutional: No fever, sweats or chills Eyes: No diplopia, no worsening or blurred vision ENT: normal hearing, no trouble swallowing, good appetite until yesterday Respiratory: No cough, sputum, dyspnea at rest or on exertion Cardiovascular: No chest pain, tightness or palpitations Abdomen: No pain, nausea, vomiting, + BRBPR as per HPI. Musculoskeletal: No joint pain, calf pain, swelling : no hematuria, no dysuria Neurologic: No weakness, numbness/tingling, or balance problems Psychiatric: No anxiety or depression Skin: No rash or itch Physical Exam Physical Exam: Please refer to physical examination per physician addendum. Results & Data Results & Data Vital Signs (Past 12 Hours) Vital Signs Temp Pulse Pulse Resp BP BP Pulse Ox 06/20/23 12:15 36.7 C 87 17 140/56 L 99 06/20/23 11:56 36.7 C 90 14 134/90 100 06/20/23 11:40 95 H 23 93 06/20/23 11:30 127/55 L 06/20/23 11:30 92 H 10 L 95 06/20/23 11:20 92 H 19 87 L 06/20/23 11:10 95 H 21 97 06/20/23 11:02 36.8 C 88 18 132/61 98 06/20/23 11:00 132/61 06/20/23 11:00 89 19 91 06/20/23 10:50 90 11 L 100 06/20/23 10:45 143/58 H 06/20/23 10:45 87 20 92 06/20/23 10:40 89 14 96 06/20/23 10:35 36.6 C 89 18 158/75 H 99 06/20/23 10:32 86 23 100 06/20/23 10:32 158/75 H 06/20/23 10:30 162/75 H 06/20/23 10:30 88 19 100 06/20/23 10:20 89 19 100 06/20/23 10:18 111/62 06/20/23 10:18 88 21 98 06/20/23 10:10 89 17 100 06/20/23 10:06 92 H 19 06/20/23 10:06 134/47 L 06/20/23 10:05 36.5 C 90 18 134/47 L 100 06/20/23 10:00 89 18 100 06/20/23 10:00 126/60 06/20/23 09:50 87 22 98 06/20/23 09:50 36.3 C L 89 19 133/56 L 98 06/20/23 09:45 133/56 L 06/20/23 09:45 89 15 100 06/20/23 09:40 89 17 100 06/20/23 09:40 144/67 H 06/20/23 09:33 91 H 13 100 06/20/23 09:33 128/81 06/20/23 09:30 90 21 100 06/20/23 09:30 126/53 L 06/20/23 09:30 36.8 C 88 18 126/53 L 100 06/20/23 09:28 36.8 C 89 18 130/53 L 100 06/20/23 09:27 88 22 100 06/20/23 09:27 130/53 L 06/20/23 09:20 87 14 100 06/20/23 09:10 95 H 23 89 L 06/20/23 09:00 89 18 99 06/20/23 09:00 122/70 06/20/23 08:50 91 H 17 98 06/20/23 08:45 87 18 122/67 100 06/20/23 08:40 91 H 23 100 06/20/23 08:30 85 12 100 06/20/23 08:30 122/67 06/20/23 08:29 86 06/20/23 08:20 87 15 100 06/20/23 08:10 86 25 H 100 06/20/23 08:05 88 18 108/80 100 06/20/23 08:00 82 16 06/20/23 08:00 108/80 06/20/23 07:50 84 17 100 06/20/23 07:49 82 17 100 06/20/23 07:49 119/45 L 06/20/23 07:49 36.9 C 83 18 113/52 L 100 06/20/23 07:40 84 19 O2 Del Method 06/20/23 12:15 06/20/23 11:56 06/20/23 11:40 06/20/23 11:30 06/20/23 11:30 06/20/23 11:20 06/20/23 11:10 06/20/23 11:02 Room Air 06/20/23 11:00 06/20/23 11:00 06/20/23 10:50 06/20/23 10:45 06/20/23 10:45 06/20/23 10:40 06/20/23 10:35 06/20/23 10:32 06/20/23 10:32 06/20/23 10:30 06/20/23 10:30 06/20/23 10:20 06/20/23 10:18 06/20/23 10:18 06/20/23 10:10 06/20/23 10:06 06/20/23 10:06 06/20/23 10:05 06/20/23 10:00 06/20/23 10:00 06/20/23 09:50 06/20/23 09:50 06/20/23 09:45 06/20/23 09:45 06/20/23 09:40 06/20/23 09:40 06/20/23 09:33 06/20/23 09:33 06/20/23 09:30 06/20/23 09:30 06/20/23 09:30 06/20/23 09:28 Room Air 06/20/23 09:27 06/20/23 09:27 06/20/23 09:20 06/20/23 09:10 06/20/23 09:00 06/20/23 09:00 06/20/23 08:50 06/20/23 08:45 Room Air 06/20/23 08:40 06/20/23 08:30 06/20/23 08:30 06/20/23 08:29 06/20/23 08:20 06/20/23 08:10 06/20/23 08:05 Room Air 06/20/23 08:00 06/20/23 08:00 06/20/23 07:50 06/20/23 07:49 06/20/23 07:49 06/20/23 07:49 Room Air 06/20/23 07:40 Laboratory Results 06/20/23 06/20/23 06/20/23 Unknown 08:34 07:48 WBC 4.95 RBC 2.35 L Hgb 6.6 L* POC Hgb Hct 19.9 L* POC Hct MCV 84.7 MCH 28.1 MCHC 33.2 RDW Std Deviation 49.0 H RDW Coeff of Vanita 16.0 H Plt Count 123 L MPV 12.5 H Immature Gran % (Auto) 0.2 Neut % (Auto) 55.2 Lymph % (Auto) 28.7 [place] % (Auto) 11.7 Eos % (Auto) 3.6 Baso % (Auto) 0.6 Neut # (Auto) 2.73 Lymph # (Auto) 1.42 [place] # (Auto) 0.58 Eos # (Auto) 0.18 Baso # (Auto) 0.03 Immature Gran # (Auto) 0.01 Toxic Vacuolation 1+ PT 14.0 H INR 1.3 H POC Sodium Sodium 137 POC Potassium Potassium 4.5 POC Chloride Chloride 99 Carbon Dioxide 28 POC Total CO2 Anion Gap 10 POC Anion Gap POC BUN BUN 40 H Creatinine 1.89 H POC Creatinine Est Cr Clr Drug Dosing 22.2 Est GFR ( Amer) 28.1 Est GFR (Non-Af Amer) 24.3 BUN/Creatinine Ratio 21.2 H Glucose 102 H POC Glucose (other) Lactate 3.8 H* Calcium 8.9 POC Ioniz Calcium Cony Magnesium 1.4 L Total Bilirubin 0.8 AST 37 ALT 22 Alkaline Phosphatase 41 Total Protein 5.3 L Albumin 2.8 L Globulin 2.5 Albumin/Globulin Ratio 1.1 Lipase 34 SARS-CoV-2, RNA, NAAT NEGATIVE Blood Type A Positive Antibody Screen NEGATIVE Crossmatch See Detail 06/20/23 07:35 WBC RBC Hgb POC Hgb 6.5 L* Hct POC Hct 19 L* MCV MCH MCHC RDW Std Deviation RDW Coeff of Vanita Plt Count MPV Immature Gran % (Auto) Neut % (Auto) Lymph % (Auto) [place] % (Auto) Eos % (Auto) Baso % (Auto) Neut # (Auto) Lymph # (Auto) [place] # (Auto) Eos # (Auto) Baso # (Auto) Immature Gran # (Auto) Toxic Vacuolation PT INR POC Sodium 137 Sodium POC Potassium 4.5 Potassium POC Chloride 98 L Chloride Carbon Dioxide POC Total CO2 27 Anion Gap POC Anion Gap 18.0 POC BUN 40 H BUN Creatinine POC Creatinine 2.2 H Est Cr Clr Drug Dosing Est GFR ( Amer) Est GFR (Non-Af Amer) BUN/Creatinine Ratio Glucose POC Glucose (other) 100 H Lactate Calcium POC Ioniz Calcium Cony 1.09 L Magnesium Total Bilirubin AST ALT Alkaline Phosphatase Total Protein Albumin Globulin Albumin/Globulin Ratio Lipase SARS-CoV-2, RNA, NAAT Blood Type Antibody Screen Crossmatch Code Status & VTE Plan Code Status DNR/DNI - discussed with the patient at bedside VTE Prophylaxis Plan VTE Prophylaxis will be ordered: Yes Supervising Physician Co-Signing Physician Notes I have seen and discussed the case with the collaborating MARCI. I agree with the above H&P. I have reviewed and confirmed the patients medical history, the findings on physical examination, and the patients diagnosis and treatment plan with Jesse COVARRUBIAS and agree with the information documented. In short, Ms. Russell is an 82 year old woman with history of type 2 diabetes, diabetic peripheral angiopathy, hyperlipidemia, hyperparathyroidism, lung nodules, heart failure with preserved ejection fraction, cirrhosis c/b portal hypertension and EV s/p banding 06/01/2023, aortic ectasia, superior mesenteric artery stenosis s/p stent 2021, history of valvular disease, hypertension, prior CVA, CAD, GERD, and ongoing recurrent GI bleed who is being admitted for acute blood loss anemia 2/2 recurrent GIB. Patient notes she was just discharged 06/08/2023 and felt fine. She met with Vascular team who recommended she trial ASA as she has the stent in place; however, after 4 days of aspirin, patient has had multiple episodes of melanotic stool. she endorses intermittent epigastric discomfort she attributes to "gas" and denies any hematemesis. Discussed with GI and attempted to arrange transfer to [facility] for evaluation for TIPs; however, 2/2 bed availability patient will remain here to be stabilized and transferred as soon as bed is reserved. On arrival, Hgb 6.6. JANELL on CKD to 1.86. Lactate 3.8. Mag 1.4. Started on Octreotide, fluids, and CTX, as well as protonix drip. GENERAL APPEARANCE: AxOx4, fatigued, unwell/frustrated woman, however no acute distress. HEENT: NC, AT. MMM. EOMI, clear conjunctiva, oropharynx clear. NECK: Supple without lymphadenopathy. No stiffness or restricted ROM. HEART: Normal rate and regular rhythm, normal S1/S1, no m/r/g LUNGS: CTAB, moving air well. No crackles or wheezes are heard. ABDOMEN: Soft, nontender, nondistended with good bowel sounds heard. No appreciable fluid shift on exam. EXTREMITIES: Without cyanosis, clubbing, trace edema noted around ankles, compression stockings on NEUROLOGICAL: Grossly nonfocal. Alert and oriented, moving all 4 extremities. CN not formally tested but appear grossly intact. Skin: Warm and dry #Acute blood loss anemia 2/2 GIB #Melena -?diverticular, EV? -GI on consult -continue octreotide, CTX for SBP ppx, and protonix drip -NPO -Hold antihypertensives -Follow post transfusion hgb, goal hgb >8 2/2 diffuse ASCVD (sma stenosis, CAD, prior CVA) Transfer initiated for patient to go to [facility] for TIPS eval and vascular discussion around antiplatelet therapy Rest of plan as above I spent a total of 35 minutes coordinating, documenting, and providing care for this patient excluding time spent in the performance of separately billed services. All of the aforementioned completed outside of collaborating with the assigned physician pharmacy assistant for a full treatment plan.
--- NOTE | 2023-06-20 13:26 | Emergency Department Note ---
ED Visit Note ED attending note Patient was seen by the GREG. Patient has a history of GI bleed and recent admission with transfusion. Patient also recently received an endoscopy. I have reviewed the patient's records and I have reviewed the patient's labs patient has a hemoglobin less than 7 today. I went bedside with the GREG and the patient was consented by me for transfusion of blood. The patient was initially to be transferred to [facility] for GI evaluation however they state that there is a 24-hour bed hold currently and therefore the patient will be admitted to our facility for further treatment of a GI bleed I agree with the GREG's plan of disposition and treatment. .
[2023-06-20] MEDS ORDERED: OCTREOTIDE ACETATE 50 MCG in SYRINGE 9.5 ML IV STA (14:43)
[2023-06-20] MEDS ORDERED: CARBOHYDRATES FOR HYPOGLYCEMIA PO PRN (14:43)
[2023-06-20] MEDS ORDERED: GLUCAGON FOR INJ 1 MG VIAL SQ PRN (14:43)
[2023-06-20] MEDS ORDERED: GLUCOSE 10 TAB/TUBE PO PRN (14:43)
[2023-06-20] MEDS ORDERED: ACETAMINOPHEN 325 MG TAB PO PRN (14:43)
[2023-06-20] MEDS ORDERED: ONDANSETRON INJ 2 MG/ML 2 ML VIAL IV PRN (14:43)
[2023-06-20] MEDS ORDERED: DEXTROSE 50% 50 ML SYRINGE IV PRN (14:43)
[2023-06-20] MEDS ORDERED: GLUCOSE 40% GEL 15 GM TUBE PO PRN (14:43)
[2023-06-20] MEDS ORDERED: cefTRIAXone SODIUM 1,000 MG in DEXTROSE 5 % MINI-B 50 ML IV ONE (15:00)
[2023-06-20] MEDS: MAGNESIUM SULFATE / D5W 1 GM/100 ML BAG IV STA (15:28)
[2023-06-20 16:40] LABS: Appearance Urine Clear (Clear); Bacteria Urine Automated Negative (Negative); Bilirubin Urine Negative (Negative); Blood Urine 3+ (Negative); Cast Urine Automated 0 /lpf (0-5); Color Urine Yellow; Epithelial Cell Urine Auto 0-5 /lpf (0-5); Glucose Urine UA Negative (Negative); Ketones Urine Trace (Negative); Leukocyte Esterase Urine Negative (Negative); Nitrite Urine Negative (Negative); Protein Urine Negative (Negative); RBC Urine Automated 0-4 /hpf (0-4); Specific Gravity Urine 1.007 (1.000-1.030); Urobilinogen Urine Negative (Negative)
[2023-06-20] MEDS: INSULIN ASPART PER UNIT CHARGE SC SCH (17:00)
--- NOTE | 2023-06-20 21:29 | Ultrasound Report ---
Exam(s): US OTHER US Duplex Mesenteric EXAM: US Mesenteric Duplex CLINICAL HISTORY: Eval SMA stenting. TECHNIQUE: Real-time ultrasound of the mesenteric duplex with image documentation. COMPARISON: No relevant prior studies available. FINDINGS: Aorta: The aorta demonstrates atherosclerotic calcification with a peak systolic velocity of 243 cm/s. The proximal aorta measures 1.8 cm in diameter. SMA: The superior mesenteric artery demonstrates peak systolic velocities between 409 and 553 cm/s. No tardus parvus waveform or reversal of flow noted. The mid SMA demonstrates a peak systolic velocity of 265 cm/s. The distal SMA demonstrates peak stalk velocity of 126 cm/s. Celiac: The celiac artery demonstrates peak systolic velocities between 49 and 61 cm/s with somewhat tardus parvus waveform. ZHANE: The ZHANE is not clearly delineated. IMPRESSION: 1. Greater than 70% luminal stenosis involving the superior mesenteric artery. 2. The celiac artery is patent but demonstrates slightly tardus parvus waveforms. Estimated less than 70% luminal stenosis. 3. The ZHANE is not definitively identified proximally. 4. Athetotic calcification of the aorta without aneurysm or occlusion. Electronically signed by: Onofre Fernandes MD 06/20/23 21:28 PM
[2023-06-20] MEDS: carvediloL 3.125 MG TAB PO SCH (21:33)
[2023-06-20] MEDS: MAGNESIUM OXIDE 400 MG TAB PO SCH (21:34)
[2023-06-21 07:21] LABS: Hematocrit (blood only) 25.1 % (37.0-47.0); Hemoglobin 8.4 g/dl (12.0-16.0); Mean Corpuscular Hemoglobin 27.5 pg (25.0-34.0); Mean Corpuscular Hgb Conc 33.5 g/dL (32.0-36.0); Mean Corpuscular Volume 82.3 fL (80.0-100.0); Mean Platelet Volume 12.1 fL (9.4-12.4); Platelet Count 109 K/uL (130-400); RDW Coefficient of Variation 15.4 % (11.5-14.5); RDW Standard Deviation 45.6 fL (36.4-46.3); Red Blood Count 3.05 M/uL (4.20-5.40); White Blood Count 4.98 K/ul (4.8-10.8)
[2023-06-21 07:38] LABS: BUN Creatinine Ratio 23.8 (10-20); Calcium 7.9 mg/dl (8.6-10.3); Creatinine Clr Calc Pharmacy 28.5 ml/min; Est GFR (African American) 38.1 ml/min; Est GFR (Non-African American) 32.9 ml/min; Magnesium 1.4 mg/dl (1.7-2.4); Potassium 3.9 mmol/L (3.5-5.1)
[2023-06-21] MEDS ORDERED: cefTRIAXone SODIUM 1,000 MG in DEXTROSE 5 % MINI-B 50 ML IV SCH (09:00)
[2023-06-21] MEDS: ASCORBIC ACID 500 MG TAB PO SCH (09:21)
[2023-06-21] MEDS: ATORVASTATIN 40 MG TAB PO SCH (09:21)
[2023-06-21] MEDS: CINACALCET HCL 30 MG TAB PO SCH (09:21)
[2023-06-21] MEDS: VITAMIN B COMPLEX TAB PO SCH (09:22)
[2023-06-21] MEDS: MAGNESIUM SULFATE / D5W 1 GM/100 ML BAG IV SCH (09:33)
--- NOTE | 2023-06-21 10:24 | Gastroenterology Progress Note ---
Date of Service June 21, 2023 Assessment & Plan (1) Melena: (2) Hepatic cirrhosis: Plan: Pt is a 82 yo female w cirrhosis (MELD 15), presented with melena and anemia. 3 EGDs since 04/2023, last done 2 weeks ago w findings of large esophageal varices, banded, gastric varices and portal hypertensive gastropathy. She was previously on Plavix but not DC'd and on ASA 81mg daily. - May start CL diet this afternoon if continues to not have melena - PPI gtt - Octreotide gtt - Ceftriaxone 1g IV daily - PRBC transfusion for goal Hgb >7; monitor blood ct closely - Transfer to [facility] for TIPS evaluation once bed available Admission and Anticipated Discharge Date Admission Date: June 20, 2023 Supervising Physician Co-Signing Physician Notes I saw and evaluated the patient, she appears to have stabilized significantly after initiation of treatment with octreotide yesterday morning. There has been no hematemesis and it appears that her melena has ceased. Given the history, I wonder if the patient would benefit from an evaluation for TIPS procedure as she does have large gastric varices noted on endoscopy less than 2 weeks ago. As result we recommend continued octreotide drip, continued antibiotic coverage continue Protonix coverage and referral to tertiary center as already planned. With regard to diet patient can have clear liquid diet today. Subjective Pt's last BM was around 11PM last night. She denies any abd pain, n/v. Accepted at [facility], awaiting bed. Blood ct improved after 2U PRBC transfusion Review of Systems Review of Systems: All systems reviewed & are unremarkable except as noted in HPI & below Physical Exam Constitutional: WD/WN, vitals as above well groomed, cooperative and comfortable Eyes: PERRL, conjunctivae normal, anicteric sclerae ENMT: external ear and nose normal, oropharynx normal Respiratory: normal respiratory effort, lungs clear to auscultation Cardiovascular: RRR, no murmur, no edema Gastrointestinal (Abdomen): normal bowel sounds, soft, nontender, no hepatosplenomegaly Skin: no rashes, warm and dry no jaundice Psychiatric: A+Ox3, euthymic affect Lymphatic: no lymphedema Results & Data Vital Signs (Past 12 Hours) Vital Signs Temp Pulse Pulse Resp BP Pulse Ox O2 Del Method 06/21/23 07:20 36.7 C 80 18 120/49 L 94 Room Air 06/21/23 03:11 36.7 C 85 18 100/60 90 Room Air 06/20/23 23:00 87 06/20/23 22:52 37.0 C 66 18 104/60 95 Room Air
[2023-06-21] MEDS: INSULIN ASPART PER UNIT CHARGE SC SCH ×2 (12:26→14:01)
[2023-06-21 14:28] LABS: Hematocrit (blood only) 26.9 % (37.0-47.0); Hemoglobin 8.7 g/dl (12.0-16.0)
--- NOTE | 2023-06-21 18:29 | Hospitalist Progress Note ---
Date of Service June 21, 2023 Assessment & Plan (1) Acute lower GI bleeding: (2) Esophageal varices: (3) Hepatic cirrhosis: (4) Melena: (5) Hypomagnesemia: (6) HTN (hypertension): (7) Chronic heart failure with preserved ejection fraction (HFpEF): (8) Elevated lactic acid level: Plan: Acute GI bleeding Rectal bleed hx Diverticulosis hx Hematemesis s/p EGD and banding of esophageal varices Acute blood loss anemia 2/2 GI bleed Hx of liver cirrhosis Elevated Lactic Acid -Admit to PCU -Hemoglobin of 6.6 upon presentation, hematocrit 19.9, ordered 2 units transfused, keep hemoglobin level greater than 7 -GI consultation for history of EGD and banding of esophageal varices on 06/01/2023 - Large varices in the lower third of the esophagus on EGD previously - NPO in case GI wants to repeat EGD at this time - Their team recommends yoder sfer for TIPS procedure -Will start on IV octreotide, Protonix IV, 1 g ceftriaxone now and then daily -Previously had held Plavix due to recent SMA stent with a history of Ischemic colitis, she was resumed on baby aspirin daily which has been ongoing since her last discharge will need to hold -Will require vascular surgery discussion with C -Hold alendronate -Continue Coreg -Noted that she would most likely require TIPS procedure and repeat endoscopy in 3 months -Lactate of 3.8 on admission 2/ HD stable Hg stable at 8 continue IV Protonix, Octreotide, Ceftriaxone Hypomagnesemia - magnesium levels noted while hospitalized previously per chart review - was 1.4 on admission, will replete with IV - Pt on pantoprazole, known side effect as well - Pt's home supplement increased to BID dosing when she was last discharge 2/7 Mg IV given JANELL - Initially cr 1.8 - Hold home diuretic and losartan for now - Avoid nephrotoxic agents/contrast 2/ crea improved to 2.4 Chronic heart failure with preserved ejection fraction - Received fluids and blood in the ER - last took torsemide this morning - Monitor for volume overload - Last echocardiogram was done April 2022 showing hyperdynamic systolic function, EF of 70% personally reviewed in [employer] - She does not appear to be volume overloaded at this time 2/ no signs of overload DMII -Hgba1c of 5.6 on 06/02 -Hold home medications -Continue n.p.o. status, insulin sliding scale per protocol History of CAD -Holding Plavix as noted above -Continue beta-blockers and statin -Further discussion with pcp about risk/benefit of plavix use per GI HTN -held Losartan and diuretic -cont. Coreg 06/21 monitor BP DVT ppx: teds, scds FEN/GI: NPO Lines: Maintain 2 large bore PIV CODE: DNR/DNI Dispo: From home, accepted at [facility] for transfer by Dr. Raheem Love, anticipate bed available tomorrow on 06/21. Remain inpatient here at [facility] until bed becomes available. A total of 85 minutes were spent with greater than 50% of that time face to face with the patient, personally reviewing all current laboratories, imaging studies, past medication reconciliation, outpatient chart review, and discussion with specialists to collaborate care for the patient with attending. Please see attending documentation for corrections and/or additions. Admission and Anticipated Discharge Date Admission Date: June 20, 2023 Subjective ff up for GI bleed, etc seen resting in bed, comfortable no chest pain, dyspnea, palpitations, dizziness no abdominal pain ,nausea no GI bleed noted no other new symptoms Review of Systems Review of Systems: all noted and negative except for above Physical Exam Physical Exam: all noted and negative except for above Results & Data Results & Data Vital Signs (Past 12 Hours) Vital Signs Temp Pulse Resp BP Pulse Ox O2 Del Method 06/21/23 17:23 82 121/69 06/21/23 15:17 36.9 C 81 18 138/48 L 98 Room Air 06/21/23 11:27 36.4 C L 65 18 126/68 99 Room Air 06/21/23 07:20 36.7 C 80 18 120/49 L 94 Room Air all noted and reviewed including below
[2023-06-21 21:07] LABS: Hematocrit (blood only) 23.6 % (37.0-47.0); Hemoglobin 8.1 g/dl (12.0-16.0)
[2023-06-22 08:01] LABS: BUN Creatinine Ratio 20.1 (10-20); Calcium 7.5 mg/dl (8.6-10.3); Creatinine Clr Calc Pharmacy 29.1 ml/min; Est GFR (African American) 39.1 ml/min; Est GFR (Non-African American) 33.7 ml/min; Potassium 3.4 mmol/L (3.5-5.1)
[2023-06-22 08:20] LABS: Basophils # (auto) 0.05 K/uL (0.00-0.20); Basophils % (auto) 0.9 %; Eosinophils # (auto) 0.17 K/uL (0.00-0.50); Eosinophils % (auto) 3.1 %; Hematocrit (blood only) 26.3 % (37.0-47.0); Hemoglobin 8.5 g/dl (12.0-16.0); Immature Granulocytes # (auto) 0.02 K/uL (0.01-0.20); Immature Granulocytes % (auto) 0.4 %; Lymphocytes # (auto) 1.63 K/uL (1.20-3.40); Lymphocytes % (auto) 29.6 %; Mean Corpuscular Hemoglobin 27.5 pg (25.0-34.0); Mean Corpuscular Hgb Conc 32.3 g/dL (32.0-36.0); Mean Corpuscular Volume 85.1 fL (80.0-100.0); Mean Platelet Volume 12.1 fL (9.4-12.4); Monocytes # (auto) 0.64 K/uL (0.11-0.59); Monocytes % (auto) 11.6 %; Neutrophils % (auto) 54.4 %; Platelet Count 117 K/uL (130-400); RDW Coefficient of Variation 15.9 % (11.5-14.5); RDW Standard Deviation 48.9 fL (36.4-46.3); Red Blood Count 3.09 M/uL (4.20-5.40); White Blood Count 5.51 K/ul (4.8-10.8)
--- NOTE | 2023-06-22 09:21 | Gastroenterology Progress Note ---
Date of Service June 22, 2023 Assessment & Plan (1) Melena: (2) Hepatic cirrhosis: Plan: Pt is a 82 yo female w cirrhosis (MELD 15), presented with melena and anemia. 3 EGDs since 04/2023, last done 2 weeks ago w findings of large esophageal varices, banded, gastric varices and portal hypertensive gastropathy. She was previously on Plavix but not DC'd and on ASA 81mg daily. - CL diet, advance as tolerated - PPI gtt - Octreotide gtt - Ceftriaxone 1g IV daily - PRBC transfusion for goal Hgb >7; monitor blood ct closely - Transfer to [facility] [place]IPS [place] once bed available Admission and Anticipated Discharge Date Admission Date: June 20, 2023 Supervising Physician Co-Signing Physician Notes I saw and evaluated the patient, the patient is still awaiting transfer to a tertiary center with TIPS capability. There does not appear to be any overt signs of bleeding at the present time as patient does not appear to have hematemesis or coffee-ground emesis. Would recommend continued use of octreotide, Protonix drip in addition to broad-spectrum antibiotic coverage. Subjective Pt had BM this AM w jasen stools. Denies abd pain ,n/v. Review of Systems Review of Systems: All systems reviewed & are unremarkable except as noted in HPI & below Physical Exam Constitutional: WD/WN, vitals as above well groomed, cooperative and comfortable Eyes: PERRL, conjunctivae normal, anicteric sclerae ENMT: external ear and nose normal, oropharynx normal Respiratory: normal respiratory effort, lungs clear to auscultation Cardiovascular: RRR, no murmur, no edema Gastrointestinal (Abdomen): normal bowel sounds, soft, nontender, no hepatosplenomegaly Skin: no rashes, warm and dry no jaundice Psychiatric: A+Ox3, euthymic affect Lymphatic: no lymphedema Results & Data Vital Signs (Past 12 Hours) Vital Signs Temp Pulse Pulse Resp BP Pulse Ox O2 Del Method 06/22/23 07:43 37.0 C 82 17 105/53 L 96 Room Air 06/22/23 03:20 36.9 C 85 18 100/59 L 93 Room Air 06/21/23 23:00 77 06/21/23 22:57 36.9 C 77 20 100/62 94 Room Air
[2023-06-22] MEDS: POTASSIUM CHLORIDE / WTR 10 MEQ/100 ML PLCT IV SCH (12:23)
--- NOTE | 2023-06-22 15:54 | Discharge Summary ---
Discharge Summary Date of Service June 22, 2023 Notes For Next Care Provider Medication Changes From Visit Please refer to assessment and plan below Admission HPI Per Admitting Provider This is an 82 yo F with PMHx of DM II, diabetic peripheral angiopathy, hyperlipidemia, hyperparathyroidism, lung nodules, heart failure with preserved ejection fraction, portal hypertension, aortic ectasia, superior mesenteric artery stenosis s/p stent in Apr 2022 at [facility] and revascularized in Apr 2023, history of valvular disease, hypertension, history of CVA, history of CAD, GERD, history of pericolonic abscess, history of hepatic cirrhosis, history of GI bleed associated with intestinal diverticulosis, osteoporosis, anemia, visual field loss poststroke, history of hyponatremia presents with rectal bleed. Patient has had multiple readmissions: 04/24/2023 at [facility] for GI bleed and received total of 3 units of PRBC. Was on Sandostatin, Protonix drip and Rocephin. EGD was okay except showing grade 2 esophageal varices. And she was transferred to [place] on 04/25/23 for possible mesenteric ischemia and ischemic colitis and possible need for IR intervention. GI did colonoscopy which revealed diverticulosis with old bleeding and no active bleeding and there was no evidence of recurrent ischemic colitis. Patient restarted on Plavix and discharged to follow-up with vascular surgery and metoprolol was changed to Coreg. And advised to follow with hepatology for liver cirrhosis. 05/12/2023- 05/14/23 at [facility] with acute GI bleeding with a mix of black and bright red blood. She was s/p 2 units of PRBC. EGD was done which was again showed grade 2 esophageal varices. Portal hypertension gastropathy. Normal examined duodenum. Hemoglobin was stabilized and she was again discharged. S 06/01/2023-06/08/2023 at [facility] Was transfused 2 units of pRBCs on 06/01/23 and 06/04/23 during hospitalization. Because of esophageal varices was also treated with Sandostatin drip, PPI drip and Zosyn. Held plavix during hospitalization and on discharge- GI recommending further discussion of risks and benefits in this pt who is high risk for bleed again. Stop alendronate. Got IV rocephin x 6 doses, discharged with 1 day of levaquin per ID recs for 7 days. Today the patient presents with acute onset of bright red blood per rectum which started last night. This morning she had an episode of gushing bright red blood per rectum around 6 AM today. She presented to the ER afterwards, pt has had one bright red bowel movement here while in ER on the bedpan. She reports doing well until last week whenever she was placed back on baby aspirin. Pt took it 4 days and then last evening was the 4th day. Denies any abdominal pain, no nausea or vomiting. Had tolerated oral intake until yesterday. Denies any fever, chills or sweats. Hemoglobin is found to be 6.6, hematocrit 19.9, her magnesium is low at 1.4, JANELL with creatinine of 1.8 and BUN of 40. She has been accepted as a transfer to [facility] for possible TIPS procedure, however due to limited bed availability, will be admitted under our service until bed is available. Accepting physician is Dr. Raehem Love at [facility]. Admission Exam Per Admitting Provider GENERAL APPEARANCE: AxOx4, fatigued, unwell/frustrated woman, however no acute distress. HEENT: NC, AT. MMM. EOMI, clear conjunctiva, oropharynx clear. NECK: Supple without lymphadenopathy. No stiffness or restricted ROM. HEART: Normal rate and regular rhythm, normal S1/S1, no m/r/g LUNGS: CTAB, moving air well. No crackles or wheezes are heard. ABDOMEN: Soft, nontender, nondistended with good bowel sounds heard. No appreciable fluid shift on exam. EXTREMITIES: Without cyanosis, clubbing, trace edema noted around ankles, compression stockings on NEUROLOGICAL: Grossly nonfocal. Alert and oriented, moving all 4 extremities. CN not formally tested but appear grossly intact. Skin: Warm and dry Principal Dx & Hospital Course #1 = Principal Diagnosis (1) Acute lower GI bleeding: (2) Esophageal varices: (3) Hepatic cirrhosis: (4) Melena: (5) Hypomagnesemia: (6) HTN (hypertension): (7) Chronic heart failure with preserved ejection fraction (HFpEF): (8) Elevated lactic acid level: Acute GI bleeding Rectal bleed hx Diverticulosis hx Hematemesis s/p EGD and banding of esophageal varices Acute blood loss anemia 2/2 GI bleed Hx of liver cirrhosis Elevated Lactic Acid -Admit to PCU -Hemoglobin of 6.6 upon presentation, hematocrit 19.9, ordered 2 units transfused, keep hemoglobin level greater than 7 -GI consultation for history of EGD and banding of esophageal varices on 06/01/2023 - Large varices in the lower third of the esophagus on EGD previously - NPO in case GI wants to repeat EGD at this time - Their team recommends transfer for TIPS procedure -Will start on IV octreotide, Protonix IV, 1 g ceftriaxone now and then daily -Previously had held Plavix due to recent SMA stent with a history of Ischemic colitis, she was resumed on baby aspirin daily which has been ongoing since her last discharge will need to hold -Will require vascular surgery discussion with [facility] -Hold alendronate -Continue Coreg -Noted that she would most likely require TIPS procedure and repeat endoscopy in 3 months -Lactate of 3.8 on admission 2 HD stable Hg stable at 8 continue IV Protonix, Octreotide, Ceftriaxone transfer to [facility] for evaluation for TIPS procedure Hypomagnesemia - magnesium levels noted while hospitalized previously per chart review - was 1.4 on admission, will replete with IV - Pt on pantoprazole, known side effect as well - Pt's home supplement increased to BID dosing when she was last discharge 2 Mg and K IV given JANELL - Initially cr 1.8 - Hold home diuretic and losartan for now - Avoid nephrotoxic agents/contrast 06/22 crea improved to 1.4 Chronic heart failure with preserved ejection fraction - Received fluids and blood in the ER - last took torsemide this morning - Monitor for volume overload - Last echocardiogram was done April 2022 showing hyperdynamic systolic function, EF of 70% personally reviewed in [employer] - She does not appear to be volume overloaded at this time 06/22 no signs of overload DMII -Hgba1c of 5.6 on 06/02 -Hold home medications -Continue n.p.o. status, insulin sliding scale per protocol History of CAD -Holding Plavix as noted above -Continue beta-blockers and statin -Further discussion with pcp about risk/benefit of plavix use per GI HTN -held Losartan and diuretic -cont. Coreg 06/21 monitor BP DVT ppx: teds, scds FEN/GI: NPO Lines: Maintain 2 large bore PIV CODE: DNR/DNI Discharge Exam General- oriented x 3, not in distress, speaks in sentences with no effort or accessory muscle use Eyes- anicteric Neck- no JVD Lungs- clear breath sounds bilaterally, no rales/wheezes Heart- normal rate, regular rhythm; no murmurs Abdomen- normal bowel sounds, nondistended, soft, nontender Extremities- no pretibial edema, no calf tenderness Neuro- alert, oriented x 3; no gross focal neurologic deficits Skin- warm & dry Updated Medication List Medication Instructions Recorded Confirmed Type Osteo Bi-Flex 1 tab PO DAILY 06/01/23 06/20/23 History Vitron-C 1 tab PO DAILY 06/01/23 06/20/23 History atorvastatin 40 mg tablet 40 mg PO DAILY 06/01/23 06/20/23 History biotin 1 mg capsule 1 mg PO DAILY 06/01/23 06/20/23 History carvedilol 3.125 mg tablet 3.125 mg PO BID 06/01/23 06/20/23 History cinacalcet 30 mg tablet (Sensipar) 30 mg PO DAILY 06/01/23 06/20/23 History clopidogrel 75 mg tablet 75 mg PO DAILY 06/01/23 06/20/23 History epinephrine 1 mg/mL injection 0.3 mg subcut Q4H PRN Anaphylaxis 06/01/23 06/20/23 History solution insulin human U-100 NPH-regulr 25 unit subcut UD 06/01/23 06/20/23 History 70-30 mix 100 unit/mL subcutaneous susp (Novolin 70/30 U-100 Insulin) losartan 25 mg tablet 25 mg PO DAILY 06/01/23 06/20/23 History melatonin 10 mg tablet 10 mg PO HS PRN Insomnia 06/01/23 06/20/23 History metformin 1,000 mg tablet 1,000 mg PO BID 06/01/23 06/20/23 History lboolrzmzdsu-clzysgzy-riyhqk tablet 1 tab PO DAILY 06/01/23 06/20/23 History torsemide 20 mg tablet 40 mg PO DAILY 06/01/23 06/20/23 History vitamin B complex 1 cap PO DAILY 06/01/23 06/20/23 History magnesium oxide 400 mg PO BID #60 caps 06/08/23 06/20/23 Rx pantoprazole 40 mg tablet,delayed 40 mg PO BID #60 tabs 06/08/23 06/20/23 Rx release insulin lispro 100 unit/mL 1 sliding scale dose subcut 06/22/23 Rx subcutaneous solution USEASDIRECTD #10 mL Hospital Stay Data Consultations 06/20/23 09:04 Consult Gastroenterology Routine 06/22/23 15:36 Burn CD for patient Stat Diagnostic Imagining Performed Laboratory Results WBC 5.51 K/ul (4.8-10.8) 06/22/23 06:53 RBC 3.09 M/uL (4.20-5.40) L 06/22/23 06:53 Hgb 8.5 g/dl (12.0-16.0) L 06/22/23 06:53 POC Hgb 6.5 g/dl (12.0-16.0) L* 06/20/23 07:35 Hct 26.3 % (37.0-47.0) L 06/22/23 06:53 POC Hct 19 % (37-47) L* 06/20/23 07:35 MCV 85.1 fL (80.0-100.0) 06/22/23 06:53 MCH 27.5 pg (25.0-34.0) 06/22/23 06:53 MCHC 32.3 g/dL (32.0-36.0) 06/22/23 06:53 RDW Std Deviation 48.9 fL (36.4-46.3) H 06/22/23 06:53 RDW Coeff of Vanita 15.9 % (11.5-14.5) H 06/22/23 06:53 Plt Count 117 K/uL (130-400) L 06/22/23 06:53 MPV 12.1 fL (9.4-12.4) 06/22/23 06:53 Immature Gran % (Auto) 0.4 % 06/22/23 06:53 Neut % (Auto) 54.4 % 06/22/23 06:53 Lymph % (Auto) 29.6 % 06/22/23 06:53 [place] % (Auto) 11.6 % 06/22/23 06:53 Eos % (Auto) 3.1 % 06/22/23 06:53 Baso % (Auto) 0.9 % 06/22/23 06:53 Neut # (Auto) 3.00 K/uL (1.40-6.50) 06/22/23 06:53 Lymph # (Auto) 1.63 K/uL (1.20-3.40) 06/22/23 06:53 [place] # (Auto) 0.64 K/uL (0.11-0.59) H 06/22/23 06:53 Eos # (Auto) 0.17 K/uL (0.00-0.50) 06/22/23 06:53 Baso # (Auto) 0.05 K/uL (0.00-0.20) 06/22/23 06:53 Immature Gran # (Auto) 0.02 K/uL (0.01-0.20) 06/22/23 06:53 Toxic Vacuolation 1+ 06/20/23 07:48 PT 14.0 Seconds (9.0-12.0) H 06/20/23 07:48 INR 1.3 (0.9-1.1) H 06/20/23 07:48 POC Sodium 137 mmol/L (135-144) 06/20/23 07:35 Sodium 137 mmol/L (136-145) 06/22/23 06:53 POC Potassium 4.5 mmol/L (3.3-5.0) 06/20/23 07:35 Potassium 3.4 mmol/L (3.5-5.1) L 06/22/23 06:53 POC Chloride 98 mmol/L (101-112) L 06/20/23 07:35 Chloride 103 mmol/L (98-107) 06/22/23 06:53 Carbon Dioxide 26 mmol/L (21-32) 06/22/23 06:53 POC Total CO2 27 mmol/L (24-31) 06/20/23 07:35 Anion Gap 8 (3-11) 06/22/23 06:53 POC Anion Gap 18.0 mmol/L (16-25) 06/20/23 07:35 POC BUN 40 mg/dl (7-18) H 06/20/23 07:35 BUN 29 mg/dl (6-23) H 06/22/23 06:53 Creatinine 1.44 mg/dl (0.6-1.2) H 06/22/23 06:53 POC Creatinine 2.2 mg/dl (0.6-1.3) H 06/20/23 07:35 Est Cr Clr Drug Dosing 29.1 ml/min 06/22/23 06:53 Est GFR ( Amer) 39.1 ml/min 06/22/23 06:53 Est GFR (Non-Af Amer) 33.7 ml/min 06/22/23 06:53 BUN/Creatinine Ratio 20.1 (10-20) H 06/22/23 06:53 Glucose 155 mg/dl (70-99(Fasting)) H 06/22/23 06:53 POC Glucose 238 mg/dl (70-99) H 06/22/23 11:21 POC Glucose (other) 100 mg/dl (70-99) H 06/20/23 07:35 Lactate 2.9 mmol/L (0.4-2.0) H* 06/20/23 14:44 Calcium 7.5 mg/dl (8.6-10.3) L 06/22/23 06:53 POC Ioniz Calcium [place] 1.09 mmol/l (1.12-1.32) L 06/20/23 07:35 Magnesium 1.4 mg/dl (1.7-2.4) L 06/21/23 06:56 Total Bilirubin 0.8 mg/dl (0.2-1.0) 06/20/23 07:48 AST 37 U/L (13-39) 06/20/23 07:48 ALT 22 U/L (7-52) 06/20/23 07:48 Alkaline Phosphatase 41 U/L (34-104) 06/20/23 07:48 Total Protein 5.3 gm/dl (6.0-8.3) L 06/20/23 07:48 Albumin 2.8 gm/dl (3.4-5.0) L 06/20/23 07:48 Globulin 2.5 gm/dl (2.5-4.0) 06/20/23 07:48 Albumin/Globulin Ratio 1.1 (0.9-2) 06/20/23 07:48 Lipase 34 U/L (11-82) 06/20/23 07:48 Urine Color Yellow 06/20/23 15:37 Urine Appearance Clear (Clear) 06/20/23 15:37 Urine pH 8.0 (4.5-7.5) H 06/20/23 15:37 Ur Specific [place] 1.007 (1.000-1.030) 06/20/23 15:37 Urine Protein Negative (Negative) 06/20/23 15:37 Urine Glucose (UA) Negative (Negative) 06/20/23 15:37 Urine Ketones Trace (Negative) H 06/20/23 15:37 Urine Blood 3+ (Negative) H 06/20/23 15:37 Urine Nitrite Negative (Negative) 06/20/23 15:37 Urine Bilirubin Negative (Negative) 06/20/23 15:37 Urine Urobilinogen Negative (Negative) 06/20/23 15:37 Ur Leukocyte Esterase Negative (Negative) 06/20/23 15:37 Urine WBC (Auto) 1-5 /hpf (0-5) 06/20/23 15:37 Urine RBC (Auto) 0-4 /hpf (0-4) 06/20/23 15:37 U Hyaline Cast (Auto) 0 /lpf (0-5) 06/20/23 15:37 U Epithel Cells (Auto) 0-5 /lpf (0-5) 06/20/23 15:37 Urine Bacteria (Auto) Negative (Negative) 06/20/23 15:37 SARS-CoV-2, RNA, NAAT NEGATIVE (NEGATIVE) 06/20/23 Unknown Blood Type A Positive 06/20/23 07:48 Antibody Screen NEGATIVE 06/20/23 07:48 Crossmatch See Detail 06/20/23 07:48 Impressions Mesenteric US 06/20/23 09:15 Exam(s): US OTHER US Duplex Mesenteric EXAM: US Mesenteric Duplex CLINICAL HISTORY: Eval SMA stenting. TECHNIQUE: Real-time ultrasound of the mesenteric duplex with image documentation. COMPARISON: No relevant prior studies available. FINDINGS: Aorta: The aorta demonstrates atherosclerotic calcification with a peak systolic velocity of 243 cm/s. The proximal aorta measures 1.8 cm in diameter. SMA: The superior mesenteric artery demonstrates peak systolic velocities between 409 and 553 cm/s. No tardus parvus waveform or reversal of flow noted. The mid SMA demonstrates a peak systolic velocity of 265 cm/s. The distal SMA demonstrates peak stalk velocity of 126 cm/s. Celiac: The celiac artery demonstrates peak systolic velocities between 49 and 61 cm/s with somewhat tardus parvus waveform. ZHANE: The ZHANE is not clearly delineated. IMPRESSION: 1. Greater than 70% luminal stenosis involving the superior mesenteric artery. 2. The celiac artery is patent but demonstrates slightly tardus parvus waveforms. Estimated less than 70% luminal stenosis. 3. The ZHANE is not definitively identified proximally. 4. Athetotic calcification of the aorta without aneurysm or occlusion. Electronically signed by: Onofre Fernandes MD 06/20/23 21:28 PM 06/20/23 09:15 US Mesentary Doppler [US duplex mesenteric] Stat Pending Results Patient Have Any Pending Studies at Discharge: No Discharge Instructions Given to Patient (Per Discharging Provider) Please refer to accompanying hospital discharge summary for full details Total Time Total Time Spent Total Time Spent (In Minutes): >30 minutes
== END 2023-06-22 16:00 | disposition short-term general hospital (02) | DRG 378 ==
LOC: ED 07:21 → EDINP 12:18 → SUATTDRO 12:18 → 2S 14:44

== ENCOUNTER 2025-01-12 11:43 | Inpatient (IN) ==
[2025-01-12 12:07] LABS: Base Excess VBG 3.9 mEq/L; HCO3 VBG 28 mmol/L; Oxygen Saturation VBG < 60.0 %; PCO2 VBG 38 mmHg (38-50); PO2 VBG 31 mmHg; pH VBG 7.47 (7.36-7.41)
[2025-01-12 12:10] LABS: Hematocrit (blood only) 34.8 % (37.0-47.0); Hemoglobin 11.7 g/dl (12.0-16.0); Immature Granulocytes # (auto) 0.01 K/uL (0.01-0.20); Immature Granulocytes % (auto) 0.2 %; Mean Corpuscular Hemoglobin 30.9 pg (25.0-34.0); Mean Corpuscular Volume 91.8 fL (80.0-100.0); Platelet Count 81 K/uL (130-400); RDW Standard Deviation 50.1 fL (36.4-46.3); Red Blood Count 3.79 M/uL (4.20-5.40); White Blood Count 4.85 K/ul (4.8-10.8)
--- NOTE | 2025-01-12 12:11 | Emergency Department Note ---
History of Present Illness General Chief complaint: Altered Mental Status Stated complaint: AMS Time Seen by Provider: 01/12/25 11:49 Source: EMS History of Present Illness Provider complaint: Altered mental status 84-year-old female presents emergency department for altered mental status. Patient reportedly woke up confused this morning. Last known normal was 830 last night. Patient unable to give any more history. No reported falls or traumas. No blood thinners. Home Medications Medication Instructions Recorded Confirmed Type Osteo Bi-Flex 1 tab PO DAILY 06/01/23 01/12/25 History Vitron-C 1 tab PO DAILY 06/01/23 01/12/25 History atorvastatin 40 mg tablet 40 mg PO .AFTERNOON 06/01/23 01/12/25 History biotin 1 mg capsule 1 mg PO DAILY 06/01/23 01/12/25 History carvedilol 3.125 mg tablet 0 mg PO BID 06/01/23 01/12/25 History cinacalcet 30 mg tablet (Sensipar) 30 mg PO DAILY 06/01/23 01/12/25 History clopidogrel 75 mg tablet 75 mg PO DAILY 06/01/23 01/12/25 History insulin human U-100 NPH-regulr 10 - 25 unit subcut UD 06/01/23 01/12/25 History 70-30 mix 100 unit/mL subcutaneous susp (Novolin 70/30 U-100 Insulin) losartan 25 mg tablet 25 mg PO DAILY 06/01/23 01/12/25 History melatonin 10 mg tablet 10 mg PO HS Insomnia 06/01/23 01/12/25 History metformin 1,000 mg tablet 1,000 mg PO BID 06/01/23 01/12/25 History coojcpyejtpx-uazinmkz-axydtw tablet 1 tab PO DAILY 06/01/23 01/12/25 History torsemide 20 mg tablet 0 mg PO DAILY 06/01/23 01/12/25 History vitamin B complex 1 cap PO DAILY 06/01/23 01/12/25 History magnesium oxide 400 mg PO BID #60 caps 06/08/23 01/12/25 Rx L.acidoph,paracasei,B.animalis 10 1 cell PO DAILY 01/12/25 01/12/25 History billion cell capsule alendronate 70 mg tablet 70 mg PO WK 01/12/25 01/12/25 History benzonatate 100 mg capsule 100 mg PO TID PRN Cough 01/12/25 01/12/25 History furosemide 40 mg tablet 40 mg PO DAILY 01/12/25 01/12/25 History lifitegrast 5 % eye drops in a 0 drp ophthalmic (eye) BID 01/12/25 01/12/25 History dropperette (Xiidra) metoprolol tartrate 25 mg tablet 12.5 mg PO DAILY 01/12/25 01/12/25 History pantoprazole 40 mg tablet,delayed 40 mg PO DAILY 01/12/25 01/12/25 History release Allergies Allergy/AdvReac Type Severity Reaction Status Date / Time nickel Allergy "Cheap Verified 06/05/23 08:36 metal = rash" Past Med/Surg History Problem List (Updated 01/12/25 @ 16:13 by Guille Hodges MD) AMS (altered mental status) (Acute) JANELL (acute kidney injury) (Acute) Acute UTI (Acute) JANELL (acute kidney injury) (Acute) Hypomagnesemia Melena Hematemesis Elevated lactic acid level (Acute) Renal insufficiency (Acute) Esophageal varices (Acute) Acute lower GI bleeding (Acute) Acute GI bleeding (Acute) Acute blood loss anemia (Acute) Hepatic cirrhosis (Acute) History of ischemic colitis (Acute) GI bleed (Acute) pt unaware Ischemic colitis Leukocytosis HTN (hypertension) Hyperparathyroidism Pulmonary nodule Ovarian cyst Anemia Chronic heart failure with preserved ejection fraction (HFpEF) Colitis Leg edema Hypoxia Abdominal pain Sepsis Ovarian mass, right (Acute) Vomiting (Acute) Abnormal EKG (Acute) Elevated troponin I level (Acute) Abdominal pain, acute, right lower quadrant (Acute) Ileocolitis (Acute) Microcytic anemia Idiopathic polyneuropathy Right homonymous hemianopsia Muscle weakness of right arm S/P hysterectomy S/P tonsillectomy S/P appendectomy Mitral stenosis Elevated troponin (Acute) Bilateral lower extremity edema (Acute) CHF (congestive heart failure) (Acute) GERD (gastroesophageal reflux disease) (Chronic) Osteoporosis (Chronic) Hip pain Hyperparathyroidism (Chronic) Nontoxic multinodular goiter (Chronic) Vitamin D deficiency (Chronic) DM type 2 (diabetes mellitus, type 2) (Chronic) Lumbago Other and unspecified hyperlipidemia Type 2 diabetes mellitus without complications Essential (primary) hypertension Coronary atherosclerosis 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 Medical History Encounter for pre-operative examination Hepatic cirrhosis History of ischemic colitis GI bleed pt unaware CHF (congestive heart failure) Anemia Osteoporosis GERD (gastroesophageal reflux disease) Hyperparathyroidism Hypertension Poor historian Abnormal EKG pt unaware Acute respiratory failure CVA (cerebral vascular accident) Jan 2022 per pt > has some right hand weakness > does not follow with neuro Weakness of right upper extremity s/p CVA, just on occasion Lumbago Other and unspecified hyperlipidemia Type 2 diabetes mellitus without complications Essential (primary) hypertension Coronary atherosclerosis 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 Acute heart failure with preserved ejection fraction (HFpEF) pt unaware Acute respiratory failure with hypoxia pt unaware Surgical History History of colonoscopy History of endovascular stent graft for abdominal aortic aneurysm unsure if this is exactly what she has, but had done in Apr 2022 at [place] she thinks it was for AAA S/P tonsillectomy S/P hysterectomy S/P appendectomy History of heart artery stent placed 1994 S/P cholecystectomy History of cataract surgery bilat Family History Mother , age 70 of a stroke and congestive heart failure Stroke CHF (congestive heart failure) Father , in his 70s of an OR Myocardial infarction Social History Smoking Status: Former smoker packs per day: 4; Second Hand Exposure: No; Do You Dip or Chew Tobacco: No; Hx Alcohol Use: No Hx Substance Use: No Preferred Language: Occitan Communication Ability: Effective Lan/Wan Engineer Required: No Beliefs That Will Affect Care: None marital status: Current Living Situation: Spouse current occupational status: retired current occupation: Multiple different jobs retiring in her 50s. Feels Safe at Home: Yes Assistive Devices: Walker Physical Exam Vital Signs Vital Signs - 24 hr 01/12/25 12:00 01/12/25 12:01 01/12/25 12:57 Temperature 37.0 C Temperature Source Oral Pulse Rate 76 86 86 Pulse Rate from SpO2 Sensor Pulse Rhythm Regular Pulse Strength Normal Respiratory Rate 20 16 Respiratory Effort / Characteristics Non-Labored Spontaneous Respiratory Depth Normal Respiratory Pattern Regular Blood Pressure 160/64 H Blood Pressure Mean 96 Blood Pressure Position Semi-fowlers Pulse Oximetry 97 100 Oxygen Delivery Method Room Air Room Air Sepsis Recent Fever Within 48 Hours No Sepsis New/Unexplained Change in Mental Status Yes Sepsis Action Taken by Nursing No Action Required 01/12/25 13:00 01/12/25 15:00 Temperature Temperature Source Pulse Rate 82 85 Pulse Rate from SpO2 Sensor 86 Pulse Rhythm Pulse Strength Respiratory Rate 18 17 Respiratory Effort / Characteristics Respiratory Depth Respiratory Pattern Blood Pressure 167/72 H 143/83 H Blood Pressure Mean 116 88 Blood Pressure Position Pulse Oximetry 95 95 Oxygen Delivery Method Sepsis Recent Fever Within 48 Hours Sepsis New/Unexplained Change in Mental Status Sepsis Action Taken by Nursing Physical Exam HENT: Exam performed. -Head: Normocephalic and atraumatic. EYES: Conjunctivae and EOM are normal. Pupils are equal, round, and reactive to light. Right eye exhibits no discharge. Left eye exhibits no discharge. No scleral icterus. NECK: Normal range of motion. Neck supple. No JVD present. CV: Normal rate, regular rhythm, normal heart sounds and intact distal pulses. There is no peripheral edema. Palpable radial pulses bue. PULM/CHEST: Effort normal and breath sounds normal. No respiratory distress. No stridor. She has no wheezes. She has no rales. ABD: The abdomen is soft. NEURO: She is alert and oriented to place. She is not oriented to person or time. No cranial nerve deficit or sensory deficit. Right upper extremity drift. Right lower extremity drift. Course Course 1149: The patient was evaluated in room B10. A complete history and physical exam was performed Cardiac monitoring: An order was placed for continuous cardiac monitoring. The monitor shows a rate of 80 with sinus rhythm interpreted by me No code stroke called as the patient's last well-known normal was last night when she went to bed at 2030. 1430: Vital signs stable. Labs show JANELL. Urinalysis concerning for infection. CT of the head shows no ICH. CT abdomen pelvis shows no kidney stone or urinary obstruction causing the JANELL. There was an incidental 3.1 cm left lower lobe mass. Patient [facility] be [facility]. Antibiotics ordered for the patient. Administered Medications Discontinued Medications Ceftriaxone Sodium (Rocephin) 2,000 mg in 50 mls @ 100 mls/hr IV NOW STA Stop: 01/12/25 14:08 Last Infusion: 01/12/25 15:08 Dose: Infused Documented By: Admin: 01/12/25 14:28 Dose: 100 mls/hr Documented By: JASON Medical Decision Making Laboratory Data Attestation: I reviewed the patient's lab results. 01/12/25 11:57 01/12/25 11:57 Lab Results 01/12/25 01/12/25 Range/Units 11:57 12:07 WBC 4.85 (4.8-10.8) K/ul RBC 3.79 L (4.20-5.40) M/uL Hgb 11.7 L (12.0-16.0) g/dl Hct 34.8 L (37.0-47.0) % MCV 91.8 (80.0-100.0) fL MCH 30.9 (25.0-34.0) pg MCHC 33.6 (32.0-36.0) g/dL RDW Std Deviation 50.1 H (36.4-46.3) fL RDW Coeff of Vanita 14.7 H (11.5-14.5) % Plt Count 81 L (130-400) K/uL MPV 11.7 (9.4-12.4) fL Immature Gran % (Auto) 0.2 % Neut % (Auto) 63.7 % Lymph % (Auto) 23.3 % Rusk % (Auto) 10.1 % Eos % (Auto) 2.1 % Baso % (Auto) 0.6 % Neut # (Auto) 3.09 (1.40-6.50) K/uL Lymph # (Auto) 1.13 L (1.20-3.40) K/uL Rusk # (Auto) 0.49 (0.11-0.59) K/uL Eos # (Auto) 0.10 (0.00-0.50) K/uL Baso # (Auto) 0.03 (0.00-0.20) K/uL Immature Gran # (Auto) 0.01 (0.01-0.20) K/uL PT 13.6 H (9.0-12.0) Seconds INR 1.3 H (0.9-1.1) APTT 28 (21-31) Seconds PTT Ratio 1.0 VBG pH 7.47 H (7.36-7.41) VBG pCO2 38 (38-50) mmHg VBG pO2 31 mmHg VBG HCO3 28 mmol/L VBG O2 Saturation < 60.0 % VBG Base Excess 3.9 mEq/L Sodium 136 (136-145) mmol/L Potassium 4.4 (3.5-5.1) mmol/L Chloride 100 (98-107) mmol/L Carbon Dioxide 26 (21-32) mmol/L Anion Gap 10 (3-11) BUN 47 H (6-23) mg/dl Creatinine 2.02 H (0.6-1.2) mg/dl Est Cr Clr Drug Dosing 19.4 ml/min eGFR 23.89 BUN/Creatinine Ratio 23.3 H (10-20) Glucose 181 H (70-99(Fasting)) mg/dl Calcium 9.1 (8.6-10.3) mg/dl Magnesium 1.9 (1.7-2.4) mg/dl Total Bilirubin 1.3 H (0.2-1.0) mg/dl Direct Bilirubin 0.4 H (0-0.2) mg/dl AST 27 (13-39) U/L ALT 19 (7-52) U/L Alkaline Phosphatase 54 (34-104) U/L Ammonia 60.0 (18-72) umol/L Troponin I High Sens 14.3 H (0-14) pg/ml Total Protein 6.4 (6.0-8.3) gm/dl Albumin 2.9 L (3.4-5.0) gm/dl Lipase 48 (11-82) U/L Urine Color Yellow Urine Appearance Cloudy A (Clear) Urine pH 8.5 H (4.5-7.5) Ur Specific Cornelius 1.009 (1.000-1.030) Urine Protein 1+ H (Negative) Urine Glucose (UA) Negative (Negative) Urine Ketones Negative (Negative) Urine Blood Trace H (Negative) Urine Nitrite Negative (Negative) Urine Bilirubin Negative (Negative) Urine Urobilinogen Negative (Negative) Ur Leukocyte Esterase 3+ H (Negative) Urine WBC (Auto) >50 H (0-5) /hpf Urine RBC (Auto) 0-2 (0-2) /hpf U Hyaline Cast (Auto) 3-5 H (0-2) /lpf U Epithel Cells (Auto) 0-2 (0-2) /hpf Urine Bacteria (Auto) 4+ H (None Seen) Urine Comment Imaging Data Radiologist's Impression: Chest X-Ray 01/12/25 11:49 EXAM: AP portable chest EXAM REASON: Altered mental status COMPARISON: 06/03/2023 TECHNIQUE: A single AP view of the chest was obtained FINDINGS: The lungs are well-expanded and clear. The cardiac and mediastinal silhouettes are within normal limits. There is no pneumothorax and no acute bony abnormalities are seen IMPRESSION: 1. No acute cardiopulmonary abnormalities. Electronically signed by Ahmet Anderson 01-12-2025 12:[address] 01/12/25 11:49 EXAM: CT of the head without contrast EXAM REASON: Altered mental status COMPARISON: 09/25/2022 TECHNIQUE: Multiple sequential contiguous slices through the calvarium were obtained without contrast. The images were also reconstructed in coronal and sagittal planes FINDINGS: There is mild generalized atrophy within age-appropriate limits.There is no evidence of acute intracranial hemorrhage, mass effect or midline shift.There is mild periventricular hypodensity noted bilaterally within the deep white matter. There is encephalomalacia noted within the Left occipital lobe. This is unchanged from the previous exam. IMPRESSION: 1. Generalized atrophy and chronic microvascular ischemic changes without evidence of acute intracranial abnormality. 2. Stable left occipital lobe encephalomalacia. Electronically signed by Ahmet Anderson 01-12-2025 13:58 PM Abdomen/Pelvis CT 01/12/25 12:37 EXAM: CT abdomen pelvis without contrast EXAM REASON: Altered mental status COMPARISON: 04/24/2023 TECHNIQUE: Multiple transaxial images of the abdomen and pelvis were obtained without contrast. The images were also reconstructed in coronal and sagittal planes FINDINGS: There is mild atelectasis noted in the bilateral lung bases. There is a 3.1 x 2.0 cm soft tissue mass noted in the dependent portion of the left lower lobe.There is a nodular appearance of the liver. No focal abnormalities are noted within the spleen. The patient is status postcholecystectomy. the right adrenal gland is not well-seen. There is a markedly bulky appearance of the left adrenal gland. There is a single punctate nonobstructing right renal calculus. There is a 2.6 cm eggshell type calcification noted within the ventral subcutaneous tissues in the mid epigastric region. The bowel loops are of normal caliber. There are scattered diverticular outpouchings noted along the sigmoid colon. The bladder is unremarkable. There is circumferential atherosclerotic calcifications noted within the aorta and its branches. IMPRESSION: 1. 3.1 cm left lower lobe mass. Recommend consideration of biopsy versus PET scan. 2. Bulky appearance of the left adrenal gland. 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 3. 2.6 cm eggshell calcification noted in the ventral subcutaneous tissues most likely represents heterotopic ossification. 4. Sigmoid colon diverticulosis. Electronically signed by Ahmet Anderson 01-12-2025 2:15 PM ECG Data Attestation: I personally reviewed and interpreted this ECG as follows: Rate (beats per minute): 85 Rhythm: + normal sinus ECG Intervals/blocks: + First degree AV block, + Normal QRS and + Normal QT-c ECG ST segments: + Normal ST segments MDM Narrative 1149: The patient was evaluated in room B10. A complete history and physical exam was performed Cardiac monitoring: An order was placed for continuous cardiac monitoring. The monitor shows a rate of 80 with sinus rhythm interpreted by me No code stroke called as the patient's last well-known normal was last night when she went to bed at 2030. 1430: Vital signs stable. Labs show JANELL. Urinalysis concerning for infection. CT of the head shows no ICH. CT abdomen pelvis shows no kidney stone or urinary obstruction causing the JANELL. There was an incidental 3.1 cm left lower lobe mass. Patient will be admitted to [facility]. Antibiotics ordered for the patient. Impression & Plan Acute UTI, JANELL (acute kidney injury), AMS (altered mental status) Discharge Plan Visit Data Chief Complaint: Altered Mental Status Stated Complaint: AMS ED Provider: Guille Hodges Discharge Problem: Acute UTI, JANELL (acute kidney injury), AMS (altered mental status) Patient Disposition: Admitted As Inpatient Condition: Fair Forms Stand Alone Forms: My [facility] SIPphone Prescriptions Prescriptions: No Action atorvastatin 40 mg tablet 40 mg PO .AFTERNOON torsemide 20 mg tablet 0 mg PO DAILY Hold Instructions: Resume on 07/13/23. Patient Comments: 01/12- not listed on the faxed med list. Last filled 12/25 90 day supply #180. Original: 40 mg po daily. Novolin 70/30 U-100 Insulin 100 unit/mL (70-30) suspension 10 - 25 unit SUBCUT UD Hold Instructions: Resume on 07/13/23. Rx Instructions: 25units before breakfast and 10units before supper. clopidogrel 75 mg tablet 75 mg PO DAILY Hold Instructions: Resume on 07/13/23. carvedilol 3.125 mg tablet 0 mg PO BID Patient Comments: 01/12- 3.125mg dose not listed on the faxed med list. Unable to verify. 11/12/24 6.25mg po bid was filled (100 day supply #200) but not on the faxed list either. metformin 1,000 mg tablet 1,000 mg PO BID Hold Instructions: Resume on 07/13/23. losartan 25 mg tablet 25 mg PO DAILY Hold Instructions: Resume on 07/13/23. vitamin B complex Capsule 1 cap PO DAILY acciabgixtzi-zvtdoxku-hfcbcl Tablet 1 tab PO DAILY cinacalcet [Sensipar] 30 mg Tablet 30 mg PO DAILY melatonin 10 mg Tablet 10 mg PO HS biotin 1 mg Capsule 1 mg PO DAILY Osteo Bi-Flex 1 tab 1 tab PO DAILY Vitron-C 1 tab 1 tab PO DAILY magnesium oxide 400 mg magnesium Capsule 400 mg PO BID Qty: 60 0RF Hold Instructions: Resume on 07/13/23. furosemide 40 mg Tablet 40 mg PO DAILY alendronate 70 mg Tablet 70 mg PO WK benzonatate 100 mg Capsule 100 mg PO TID PRN (Reason: Cough) metoprolol tartrate 25 mg Tablet 12.5 mg PO DAILY Digestive Advantage Advanced 10 billion cell Capsule 1 cell PO DAILY Xiidra 5 % dropperette 0 drp ophthalmic (eye) BID Patient Comments: 01/12- Not on faxed med list. Last filled 01/03 30 day supply pantoprazole 40 mg tablet,delayed release (DR/EC) 40 mg PO DAILY Referrals Referrals: Alexy Al MD [Primary Care Provider] -
[2025-01-12 12:27] LABS: Alanine Aminotransferase 19.0 U/L (7-52); Alkaline Phosphatase 54.0 U/L (34-104); Anion Gap 10.0 (3-11); Bilirubin,Total 1.3 mg/dl (0.2-1.0); Blood Urea Nitrogen 47.0 mg/dl (6-23); Calcium 9.1 mg/dl (8.6-10.3); Carbon Dioxide 26.0 mmol/L (21-32); Chloride 100.0 mmol/L (98-107); Creatinine Clr Calc Pharmacy 19.4 ml/min; Glucose 181.0 mg/dl (70-99(Fasting)); Lipase 48.0 U/L (11-82); Magnesium 1.9 mg/dl (1.7-2.4); Potassium 4.4 mmol/L (3.5-5.1); Sodium 136.0 mmol/L (136-145); Total Protein 6.4 gm/dl (6.0-8.3)
[2025-01-12 12:35] LABS: Appearance Urine Cloudy (Clear); Bacteria Urine Automated 4+ (None Seen); Epithelial Cell Urine Auto 0-2 /hpf (0-2); Glucose Urine UA Negative (Negative); RBC Urine Automated 0-2 /hpf (0-2); WBC Urine Automated >50 /hpf (0-5)
[2025-01-12 12:41] LABS: INR 1.3 (0.9-1.1); Partial Thromboplastin Time 28 Seconds (21-31); Prothrombin Time 13.6 Seconds (9.0-12.0)
--- NOTE | 2025-01-12 13:02 | XRay Report ---
EXAM: AP portable chest EXAM REASON: Altered mental status COMPARISON: 06/03/2023 TECHNIQUE: A single AP view of the chest was obtained FINDINGS: The lungs are well-expanded and clear. The cardiac and mediastinal silhouettes are within normal limits. There is no pneumothorax and no acute bony abnormalities are seen IMPRESSION: 1. No acute cardiopulmonary abnormalities. Electronically signed by Ahmet Anderson 01-12-2025 12:58 PM
--- NOTE | 2025-01-12 13:59 | CT Scan Report ---
EXAM: CT of the head without contrast EXAM REASON: Altered mental status COMPARISON: 09/25/2022 TECHNIQUE: Multiple sequential contiguous slices through the calvarium were obtained without contrast. The images were also reconstructed in coronal and sagittal planes FINDINGS: There is mild generalized atrophy within age-appropriate limits.There is no evidence of acute intracranial hemorrhage, mass effect or midline shift.There is mild periventricular hypodensity noted bilaterally within the deep white matter. There is encephalomalacia noted within the Left occipital lobe. This is unchanged from the previous exam. IMPRESSION: 1. Generalized atrophy and chronic microvascular ischemic changes without evidence of acute intracranial abnormality. 2. Stable left occipital lobe encephalomalacia. Electronically signed by Ahmet Anderson 01-12-2025 13:58 PM
--- NOTE | 2025-01-12 14:15 | CT Scan Report ---
EXAM: CT abdomen pelvis without contrast EXAM REASON: Altered mental status COMPARISON: 04/24/2023 TECHNIQUE: Multiple transaxial images of the abdomen and pelvis were obtained without contrast. The images were also reconstructed in coronal and sagittal planes FINDINGS: There is mild atelectasis noted in the bilateral lung bases. There is a 3.1 x 2.0 cm soft tissue mass noted in the dependent portion of the left lower lobe.There is a nodular appearance of the liver. No focal abnormalities are noted within the spleen. The patient is status postcholecystectomy. the right adrenal gland is not well-seen. There is a markedly bulky appearance of the left adrenal gland. There is a single punctate nonobstructing right renal calculus. There is a 2.6 cm eggshell type calcification noted within the ventral subcutaneous tissues in the mid epigastric region. The bowel loops are of normal caliber. There are scattered diverticular outpouchings noted along the sigmoid colon. The bladder is unremarkable. There is circumferential atherosclerotic calcifications noted within the aorta and its branches. IMPRESSION: 1. 3.1 cm left lower lobe mass. Recommend consideration of biopsy versus PET scan. 2. Bulky appearance of the left adrenal gland. 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 3. 2.6 cm eggshell calcification noted in the ventral subcutaneous tissues most likely represents heterotopic ossification. 4. Sigmoid colon diverticulosis. Electronically signed by Ahmet Anderson 01-12-2025 2:15 PM
[2025-01-12] MEDS: cefTRIAXone SODIUM 2,000 MG/50 ML BAG IV STA (14:28)
[2025-01-12] MEDS ORDERED: GLUCOSE 40% GEL 15 GM TUBE PO PRN (16:18)
[2025-01-12] MEDS ORDERED: GLUCAGON FOR INJ 1 MG VIAL SQ PRN (16:18)
[2025-01-12] MEDS ORDERED: CARBOHYDRATES FOR HYPOGLYCEMIA PO PRN (16:18)
[2025-01-12] MEDS ORDERED: DEXTROSE 50% 50 ML SYRINGE IV PRN (16:18)
[2025-01-12] MEDS ORDERED: PHARMACY GLYCEMIC MGMT CONSULT PRN (16:18)
[2025-01-12] MEDS ORDERED: GLUCOSE 10 TAB/TUBE PO PRN (16:18)
--- NOTE | 2025-01-12 16:27 | Pulmonary Consultation ---
Date of Consultation January 12, 2025 Assessment & Plan (1) Pulmonary mass: (2) Multiple pulmonary nodules: (3) COPD with emphysema: Plan 84-year-old female being admitted to the hospital for altered mental status/unresponsive episode. Pulmonary consulted for abnormal chest CT/pulmonary nodule Past medical history: CKD 3, diabetes type 2, HFpEF, cirrhosis with esophageal varices, cerebrovascular disease CT chest 01/12/2025 personally reviewed: Centrilobular emphysema appreciated bilaterally Left lower lobe 3.1 cm pulmonary nodule Right upper lobe anterior opacity/nodularity Multiple pulmonary nodules appreciated bilaterally Left upper lobe anterior cyst No significant mediastinal lymphadenopathy -- Left lower lobe mass with multiple other pulmonary nodules 3.1 x 2 cm Seems to be increasing in size compared to CT abdomen and pelvis done in 04/2023 Probability of malignancy is high Right upper lobe opacity could represent pneumonia versus metastatic disease (unlikely) Recommend to give antibiotics as well with atypical coverage --COPD with emphysema Not on any inhalers right now Not bronchospastic Recommend outpatient PFT -- Lung cancer in father who was smoker -- DNR/DNI Plan: Patient's daughter Leonel Joshi [phone] was called and updated regarding patient's nodule and options. Options for the patient include biopsying the nodule to know what it is or doing nothing if the patient wants to be conservative. Biopsying the nodule could be done into a CT-guided biopsy which is less invasive as there is only local anesthesia. There is a high risk of pneumothorax Robotic bronchoscopy, more invasive given that the patient needs general anesthesia but less risk of pneumothorax. We need to keep in mind that the nodule is very peripheral so it might be difficult to navigate to it. The CT of the chest does not seem to have any significant lymphadenopathy. If the patient and the patient's daughter are not sure about what to do next PET/CT can be ordered as an outpatient and based on the PET/CT results outpatient procedure can also be. All questions and queries of the patient as well as patient's daughter were answered in depth Right upper lobe opacity could represent pneumonia versus metastatic disease (unlikely) Recommend to give antibiotics as well with atypical coverage Case was discussed with primary team I spent more than 75 minutes looking in the chart, images, discussing the plan of care with the patient, RN as well as primary team Please note the above document was generated using voice recognition software. It may contain grammatical, syntax or spelling errors.Any formal questions or concerns about the content, text or information contained within the body of this dictation should be directly addressed to the provider for clarification. History of Present Illness History of Present Illness 84-year-old female being admitted to the hospital for altered mental status/unresponsive episode. Pulmonary consulted for abnormal chest CT/pulmonary nodule Past medical history: CKD 3, diabetes type 2, HFpEF, cirrhosis with esophageal varices, cerebrovascular disease At the time of examination patient's son as well as were in the room He was saturating 96-97% on room air Not in any distress. She asked multiple times during the interrogation that she would like to go home Does complain of some diarrhea on and off. Denies any dysuria Denies any chest pain, no shortness of breath. Able to do her day-to-day activities with the help of a walker without any significant shortness of breath Denies any chest pain or dizziness right now. No unusual headache or blurry vision No nausea or vomiting Social history: Approximately [id number] smoking history, quit at the age of 64. 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 History of lung cancer and father was a smoker Allergies Allergy/AdvReac Type Severity Reaction Status Date / Time nickel Allergy "Cheap Verified 06/05/23 08:36 metal = rash" Home Medications Medication Instructions Recorded Confirmed Type atorvastatin 40 mg tablet 40 mg PO .AFTERNOON 06/01/23 01/12/25 History biotin 1 mg capsule 1 mg PO DAILY 06/01/23 01/12/25 History carvedilol 3.125 mg tablet 6.25 mg PO BID 06/01/23 01/12/25 History cinacalcet 30 mg tablet (Sensipar) 30 mg PO DAILY 06/01/23 01/12/25 History insulin human U-100 NPH-regulr 10 - 25 unit subcut UD 06/01/23 01/12/25 History 70-30 mix 100 unit/mL subcutaneous susp (Novolin 70/30 U-100 Insulin) losartan 25 mg tablet 25 mg PO DAILY 06/01/23 01/12/25 History melatonin 10 mg tablet 10 mg PO HS Insomnia 06/01/23 01/12/25 History metformin 1,000 mg tablet 500 mg PO BID 06/01/23 01/12/25 History torsemide 20 mg tablet 20 mg PO DAILY 06/01/23 01/12/25 History vitamin B complex 1 cap PO DAILY 06/01/23 01/12/25 History magnesium oxide 400 mg PO BID #60 caps 06/08/23 01/12/25 Rx Patient History Medical History Encounter for pre-operative examination Hepatic cirrhosis History of ischemic colitis GI bleed pt unaware CHF (congestive heart failure) Anemia Osteoporosis GERD (gastroesophageal reflux disease) Hyperparathyroidism Hypertension Poor historian Abnormal EKG pt unaware Acute respiratory failure CVA (cerebral vascular accident) Jan 2022 per pt > has some right hand weakness > does not follow with neuro Weakness of right upper extremity s/p CVA, just on occasion Lumbago Other and unspecified hyperlipidemia Type 2 diabetes mellitus without complications Essential (primary) hypertension Coronary atherosclerosis of [place] coronary vessel Acute heart failure with preserved ejection fraction (HFpEF) pt unaware Acute respiratory failure with hypoxia pt unaware Surgical History History of colonoscopy History of endovascular stent graft for abdominal aortic aneurysm unsure if this is exactly what she has, but had done in Apr 2022 at [place] she thinks it was for AAA S/P tonsillectomy S/P hysterectomy S/P appendectomy History of heart artery stent placed 1994 S/P cholecystectomy History of cataract surgery bilat Family History Mother , age 70 of a stroke and congestive heart failure Stroke CHF (congestive heart failure) Father , in his 70s of an [place] Myocardial infarction Social History Smoking Status: Former smoker packs per day: 4; Second Hand Exposure: No; Do You Dip or Chew Tobacco: No; Hx Alcohol Use: No Hx Substance Use: No Preferred Language: Marshallese Communication Ability: Effective Quartz Orientator Required: No Beliefs That Will Affect Care: None marital status: Current Living Situation: Spouse current occupational status: retired current occupation: Multiple different jobs retiring in her 50s. Feels Safe at Home: Yes Assistive Devices: Walker Review of Systems 2 Review of Systems: All systems reviewed & are unremarkable except as noted in HPI & below Physical Exam 2 Physical Exam: Constitutional: No acute distress HEENT: EOMI, PERRLA Respiratory system: Good air entry bilaterally, no wheeze, no rhonchi, mild crackles bilateral lower lobe CVS: S1-S2 positive, no murmurs or gallops Abdomen: Soft, nontender, nondistended, positive bowel sounds x4 Extremities: +2 pulses bilaterally radialis/ dorsalis pedis, no cyanosis, no edema Neuro: Awake alert oriented x3 Psych: Normal mood and affect G/U: No [place] Skin: no rashes, warm and dry Lymphatic: no cervical or axillary lymphadenopathy Results & Data Results & Data Vital Signs (Past 12 Hours) Vital Signs Temp Pulse Resp BP Pulse Ox O2 Del Method 01/12/25 15:00 85 17 143/83 H 95 01/12/25 13:00 82 18 167/72 H 95 01/12/25 12:57 86 01/12/25 12:01 37.0 C 86 16 160/64 H 100 Room Air 01/12/25 12:00 76 20 97 Room Air Laboratory Results 01/12/25 11:57 01/12/25 11:57 PG Care Time/CCT Total # of Minutes Spent Total Time Spent with Patient: Total time spent is greater than 50% in coordination of care (as documented) at patient's floor/unit and/or counseling patient: [place] [address] INT INP/OBS CARE 3/75MIN Patient Type New Diagnoses Pulmonary mass R91.8 Multiple pulmonary nodules R91.8 COPD with emphysema J43.9
--- NOTE | 2025-01-12 16:40 | History & Physical Report ---
Date of Service January 12, 2025 Assessment & Plan (1) Episode of confusion: Plan: 84-year-old female with history of CHF, preserved ejection fraction, diabetes type 2, CKD stage III, hepatic cirrhosis with esophageal varices, cerebrovascular disease, presenting with unresponsive episode. Episode of confusion Possible Lower Lobe pneumonia, BL CT chest: Suspicious for bilateral lower lobe infiltrates, official read pending check respiratory panel check MRSA swab, sputum culture ceftriaxone plus doxycycline possible UTI urine culture: pending Antibiotics per above Rule out CVA CT head: No acute process Brain MRI: Ordered Left lower lobe mass Seen on CT chest Pulmonology service consulted Acute kidney injury Creatinine 2.0, baseline 1.4 Hold torsemide, losartan Start IV fluids Thrombocytopenia Platelet 81, baseline low 100s Monitor closely Other chronic medical problems: CHF PEF-currently on the dry side Diabetes type 2- insulin sliding scale, glycemic consult Hepatic cirrhosis with esophageal varices Cerebrovascular disease DVT prophylaxis SCDs for now for possible biopsy of left lower lobe mass CODE STATUS DNR as per patient Disposition MedSurg telemetry Lives at home with her History of Present Illness Primary Care Provider: Alexy Al MD 84-year-old female with history of CHF, preserved ejection fraction, diabetes type 2, CKD stage III, hepatic cirrhosis with esophageal varices, cerebrovascular disease, presenting with unresponsive episode. History obtained from EMS records, patient and also with her daughter Jn over the phone as patient could not recall events at home this morning. Patient said she has been feeling fine overall in the past few days. she lives with her and ambulates using a walker. She and her had dinner in a restaurant and went to bed fine. This morning, around 10:00 AM, the patient was was woken up by her and she was noticed to be disoriented and confused. EMS called, BP 160s, blood glucose was 170s. CT head, abd: no acute process, left lower lobe mass UA possible UTI CT chest: Possible bibasilar pneumonia crea 2.0 She was given IV fluids and IV Ceftriaxone. On exam, patient seen resting in bed, comfortable, oriented x 3, answering questions appropriately States she feels fine overall. Does not recall events this morning except being in the ambulance no chest pain, dyspnea, palpitations, dizziness no focal weakness/numbness Allergies Allergy/AdvReac Type Severity Reaction Status Date / Time nickel Allergy "Cheap Verified 06/05/23 08:36 metal = rash" Home Medications Medication Instructions Recorded Confirmed Type atorvastatin 40 mg tablet 40 mg PO .AFTERNOON 06/01/23 01/12/25 History biotin 1 mg capsule 1 mg PO DAILY 06/01/23 01/12/25 History carvedilol 3.125 mg tablet 6.25 mg PO BID 06/01/23 01/12/25 History cinacalcet 30 mg tablet (Sensipar) 30 mg PO DAILY 06/01/23 01/12/25 History insulin human U-100 NPH-regulr 10 - 25 unit subcut UD 06/01/23 01/12/25 History 70-30 mix 100 unit/mL subcutaneous susp (Novolin 70/30 U-100 Insulin) losartan 25 mg tablet 25 mg PO DAILY 06/01/23 01/12/25 History melatonin 10 mg tablet 10 mg PO HS Insomnia 06/01/23 01/12/25 History metformin 1,000 mg tablet 500 mg PO BID 06/01/23 01/12/25 History torsemide 20 mg tablet 20 mg PO DAILY 06/01/23 01/12/25 History vitamin B complex 1 cap PO DAILY 06/01/23 01/12/25 History magnesium oxide 400 mg PO BID #60 caps 06/08/23 01/12/25 Rx Past Med/Surg History Problem List (Updated 01/12/25 @ 16:53 by Santi Madden MD) Episode of confusion COPD with emphysema Multiple pulmonary nodules Pulmonary mass AMS (altered mental status) (Acute) JANELL (acute kidney injury) (Acute) Acute UTI (Acute) JANELL (acute kidney injury) (Acute) Hypomagnesemia Melena Hematemesis Elevated lactic acid level (Acute) Renal insufficiency (Acute) Esophageal varices (Acute) Acute lower GI bleeding (Acute) Acute GI bleeding (Acute) Acute blood loss anemia (Acute) Hepatic cirrhosis (Acute) History of ischemic colitis (Acute) GI bleed (Acute) pt unaware Ischemic colitis Leukocytosis HTN (hypertension) Hyperparathyroidism Pulmonary nodule Ovarian cyst Anemia Chronic heart failure with preserved ejection fraction (HFpEF) Colitis Leg edema Hypoxia Abdominal pain Sepsis Ovarian mass, right (Acute) Vomiting (Acute) Abnormal EKG (Acute) Elevated troponin I level (Acute) Abdominal pain, acute, right lower quadrant (Acute) Ileocolitis (Acute) Microcytic anemia Idiopathic polyneuropathy Right homonymous hemianopsia Muscle weakness of right arm S/P hysterectomy S/P tonsillectomy S/P appendectomy Mitral stenosis Elevated troponin (Acute) Bilateral lower extremity edema (Acute) CHF (congestive heart failure) (Acute) GERD (gastroesophageal reflux disease) (Chronic) Osteoporosis (Chronic) Hip pain Hyperparathyroidism (Chronic) Nontoxic multinodular goiter (Chronic) Vitamin D deficiency (Chronic) DM type 2 (diabetes mellitus, type 2) (Chronic) Lumbago Other and unspecified hyperlipidemia Type 2 diabetes mellitus without complications Essential (primary) hypertension Coronary atherosclerosis of [place] coronary vessel Medical History Encounter for pre-operative examination Hepatic cirrhosis History of ischemic colitis GI bleed pt unaware CHF (congestive heart failure) Anemia Osteoporosis GERD (gastroesophageal reflux disease) Hyperparathyroidism Hypertension Poor historian Abnormal EKG pt unaware Acute respiratory failure CVA (cerebral vascular accident) Jan 2022 per pt > has some right hand weakness > does not follow with neuro Weakness of right upper extremity s/p CVA, just on occasion Lumbago Other and unspecified hyperlipidemia Type 2 diabetes mellitus without complications Essential (primary) hypertension Coronary atherosclerosis of [place] coronary vessel Acute heart failure with preserved ejection fraction (HFpEF) pt unaware Acute respiratory failure with hypoxia pt unaware Surgical History History of colonoscopy History of endovascular stent graft for abdominal aortic aneurysm unsure if this is exactly what she has, but had done in Apr 2022 at [place] she thinks it was for AAA S/P tonsillectomy S/P hysterectomy S/P appendectomy History of heart artery stent placed 1994 S/P cholecystectomy History of cataract surgery bilat Family History Mother , age 70 of a stroke and congestive heart failure Stroke CHF (congestive heart failure) Father , in his 70s of an [place] Myocardial infarction Social History Smoking Status: Former smoker packs per day: 4; Second Hand Exposure: No; Do You Dip or Chew Tobacco: No; Hx Alcohol Use: No Hx Substance Use: No Preferred Language: Ethiopian Communication Ability: Effective Party Host Required: No Beliefs That Will Affect Care: None marital status: Current Living Situation: Spouse current occupational status: retired current occupation: Multiple different jobs retiring in her 50s. Feels Safe at Home: Yes Assistive Devices: Walker Review of Systems Review of Systems: all noted and negative except for above Physical Exam Physical Exam: General- oriented x 3, not in distress, speaks in sentences with no effort or accessory muscle use Head- atraumatic Eyes- PERRL, EOMI, anicteric ENT- oropharynx clear Neck- supple, no JVD, no adenopathy, no thyromegaly; carotids +2/2, no bruits appreciated Lungs- clear to auscultation bilaterally, no rales/wheezes Heart- normal rate, regular rhythm; no murmur, no gallop, no rub appreciated Abdomen- normal bowel sounds, nondistended, soft, (+) mild RLQ tenderness, no masses or hepatosplenomegaly Extremities- no pretibial edema, no calf tenderness; peripheral pulses intact Neuro- alert, oriented x 3; CN 2-12 grossly intact; motor 5/5 bilaterally;sensation 100% on all extremities; no other gross focal neurologic deficits Skin- warm & dry Results & Data Results & Data Vital Signs (Past 12 Hours) Vital Signs Temp Pulse Resp BP Pulse Ox O2 Del Method 01/12/25 15:00 85 17 143/83 H 95 01/12/25 13:00 82 18 167/72 H 01/12/25 12:57 86 01/12/25 12:01 37.0 C 86 16 160/64 H 100 Room Air 01/12/25 12:00 76 20 97 Room Air all noted and reviewed including below Code Status & VTE Plan VTE Prophylaxis Plan VTE Prophylaxis will be ordered: Yes
[2025-01-12] MEDS: SODIUM CHLORIDE 0.9% 1,000 ML IV SCH (17:12)
[2025-01-12 18:58] LABS: Influenza A virus by PCR Negative (Neg); Influenza B virus by PCR Negative (Neg); SARS CoV2 RNA(COVID-19) Ceph NEGATIVE (Negative)
--- NOTE | 2025-01-12 19:53 | Magnetic Resonance Report ---
HISTORY: Altered mental status. Unresponsiveness. TECHNIQUE: MRI of the brain without contrast. COMPARISON: Head CT dated 01/12/2025. FINDINGS: No areas of restricted diffusion to suggest acute infarct. The sella is not expanded. The cerebellar tonsils do not extend below the foramen magnum. Encephalomalacia involving the left occipital lobe consistent with prior infarct. Area of remote infarct involving the left parietal lobe. There is moderate volume loss and chronic microvascular ischemic changes. The major intracranial flow voids are maintained. Subcentimeter T2 hyperintensities involving the basal ganglia may represent enlarged perivascular spaces or remote lacunar type infarcts.No areas of susceptibility artifact to suggest intracranial hemorrhageThe globes and orbits are unremarkable.The soft tissues about the skull base and scalp are unremarkable. Paranasal sinuses and mastoid air cells are well aerated. IMPRESSION: * No acute intracranial findings. No evidence of acute infarct, intracranial hemorrhage, or mass effect. * Moderate to severe volume loss and chronic microvascular ischemic changes. * Encephalomalacia involving the left occipital lobe and left parietal lobe Likely representing sequelae of remote infarct. Electronically signed by Joel Pennington 01-12-2025 7:52 PM
[2025-01-12] MEDS: ATORVASTATIN 40 MG TAB PO ONE (20:03)
[2025-01-12] MEDS: DOXYCYCLINE HYCLATE 100 MG CAP PO SCH (20:03)
[2025-01-12] MEDS: MELATONIN 3 MG TAB PO SCH (20:04)
[2025-01-12] MEDS: MAGNESIUM OXIDE 400 MG TAB PO SCH (20:04)
[2025-01-12] MEDS: INSULIN ASPART PER UNIT CHARGE SC SCH (20:07)
--- NOTE | 2025-01-12 20:35 | CT Scan Report ---
CLINICAL HISTORY: Left lung mass ek/eb. COMPARISON: Prior X-ray chest DOS 06/03/2023 is reviewed. TECHNIQUE: Helical 2 mm acquisition of the chest were obtained from the thoracic inlet through the lung bases after the administration of intravenous contrast. All CT scans at this facility use dose modulation, iterative reconstruction, and/or weight-based dosing when appropriate to reduce radiation dose to as low as reasonably achievable. CONTRAST DOSE: Non-contrast. RADIATION DOSE: Total DLP 261.17 mGycm, CTDI Vol: 9.09 mGy. FINDINGS: Soft tissues of neck : Asymmetrical enlarged right lobe of thyroid gland is noted showing well-defined hypodense nodule measuring about 2.3 x 2.2 cm in (AP x TS) dimensions. Needs ultrasound correlation. Lung, pleura: Well-defined sub pleural soft tissue density mass with speculated margins, measuring about 1.9 x 3.0 x 2.6 cm in (AP x TS x CC) dimensions, seen involving the left lower lobe. It is associated with adjacent nodular infiltrates. Posteriorly it is closely abutting the chest wall with intact fat planes. No rib erosion is noted. Patchy area of nodular fibrosis seen involving the anterior segment of right upper lobe. Mild subpleural interseptal thickening seen in both lung parenchyma predominantly in both lower lobes. Scattered centrilobular emphysematous changes also noted. No evidence of mass or infiltrates in either lung. No evidence of pleural effusion or pneumothorax on either side. No evidence of soft tissue abnormality noted. Heart, mediastinum: Mild cardiomegaly is noted. The great vessels within normal limits for the age of the patient. Atheromatous mural calcification of the aorta. Trachea and esophagus appear unremarkable. No evidence of mediastinal, hilar or axillary adenopathy. Upper abdomen: Metallic clips seen in gall bladder fossa with non-visualization of Gall bladder , representing cholecystectomy. The visualized limited parts of the liver, spleen, pancreas and kidneys appear unremarkable. Musculoskeletal: Imaged dorsal spine shows mild degenerative changes. No gross lytic or sclerotic bony lesion seen. IMPRESSION: 1. 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 Needs histopathological correlation. 2. Rest of imaging findings represents chronic changes as detailed above. 3. Status post cholecystectomy. 4. Mild cardiomegaly. Needs correlation with echocardiography. 5. Mild thoracic spondylosis. Electronically signed by Tu Benavides 01-12-2025 8:35 PM
[2025-01-13] MEDS: ACETAMINOPHEN 325 MG TAB PO PRN (01:07)
[2025-01-13 04:52] LABS: Appearance Urine Turbid (Clear); Bacteria Urine Automated None Seen (None Seen); Cast Urine Automated 0-2 /lpf (0-2); Epithelial Cell Urine Auto 0-2 /hpf (0-2); Glucose Urine UA Negative (Negative); RBC Urine Automated 0-2 /hpf (0-2); WBC Urine Automated >50 /hpf (0-5)
[2025-01-13 06:29] LABS: Hematocrit (blood only) 32.1 % (37.0-47.0); Hemoglobin 11.2 g/dl (12.0-16.0); Immature Granulocytes # (auto) 0.01 K/uL (0.01-0.20); Immature Granulocytes % (auto) 0.3 %; Mean Corpuscular Hemoglobin 31.8 pg (25.0-34.0); Mean Corpuscular Volume 91.2 fL (80.0-100.0); Platelet Count 72 K/uL (130-400); RDW Standard Deviation 49.5 fL (36.4-46.3); Red Blood Count 3.52 M/uL (4.20-5.40); White Blood Count 3.77 K/ul (4.8-10.8)
[2025-01-13 06:45] LABS: Alanine Aminotransferase 15.0 U/L (7-52); Albumin Globulin Ratio 0.9 (0.9-2); Alkaline Phosphatase 44.0 U/L (34-104); Anion Gap 7.0 (3-11); Bilirubin,Total 0.9 mg/dl (0.2-1.0); Blood Urea Nitrogen 46.0 mg/dl (6-23); Calcium 8.5 mg/dl (8.6-10.3); Carbon Dioxide 26.0 mmol/L (21-32); Chloride 104.0 mmol/L (98-107); Creatinine Clr Calc Pharmacy 18.5 ml/min; Globulin 3.0 gm/dl (2.5-4.0); Glucose 222.0 mg/dl (70-99(Fasting)); Potassium 3.6 mmol/L (3.5-5.1); Sodium 137.0 mmol/L (136-145); Total Protein 5.6 gm/dl (6.0-8.3)
--- NOTE | 2025-01-13 07:17 | Electrocardiogram Report ---
Test Reason : Blood Pressure : */* mmHG Vent. Rate : 85 BPM Atrial Rate : 85 BPM P-R Int : 204 ms QRS Dur : 82 ms QT Int : 394 ms P-R-T Axes : 26 24 58 degrees QTcB Int : 468 ms Sinus rhythm with occasional Premature ventricular complexes Possible Left atrial enlargement Anteroseptal infarct (cited on or before 01-Jun-2023) Abnormal ECG When compared with ECG of 20-Jun-2023 07:26, Premature ventricular complexes are now Present Nonspecific T wave abnormality, improved in Lateral leads Confirmed by Diogo Yuan ([id number]) on 01/13/2025 7:17:25 AM Referred By: REFERRED SELF Confirmed By: Diogo Yuan
[2025-01-13 07:39] LABS: Hemoglobin A1C 7.0 % (4.5-5.6)
--- NOTE | 2025-01-13 07:57 | Pharmacy Report ---
Pharmacy Glycemic Short Note 2 - Date of Service January 13, 2025 - Glycemic Short BSG Results (Last 24 hours): 01/12/25 01/12/25 01/12/25 11:57 17:53 19:32 Glucose 181 H POC Glucose 164 H 180 H 01/13/25 06:11 Glucose 222 H POC Glucose OUTPATIENT ANTIDIABETIC REGIMEN: * Metformin 500mg PO BID * Novolin 70/30 25 units SQ AM, 10 units PM * A1c 7% 01/13/25 ASSESSMENT: * 84 yo F, PMH of CHF, diabetes type 2, CKD stage III, hepatic cirrhosis with esophageal varices, cerebrovascular disease, presenting with unresponsive episode, UTI, on IV ceftriaxone + po doxycycline. * Patient refused NovoLog yesterday, no basal received, fasting 222mg/dl this AM. * Will begin Novolin for basal insulin to match home insulin pharmacokinetics. PLAN FOR INPATIENT GLYCEMIC CONTROL: * Hold outpatient oral diabetes medications * Basal insulin * Novolin 10 units SQ BID with meals * Bolus insulin * NovoLog per scale ACHS or Q6hrs while NPO * Goal Range: Low 120 mg/dL - High 150 mg/dL - higher goal range for patient's age and coming in unresponsive * Correction Factor: 40 mg/dL/unit * Nutritional / Prandial insulin per carb ratio of 1 unit per 25 grams CHO consumed
[2025-01-13 08:34] VITALS: RESP 20
--- NOTE | 2025-01-13 09:10 | Pulmonology Progress Note ---
Date of Service January 13, 2025 Assessment & Plan (1) Pulmonary mass: (2) Multiple pulmonary nodules: (3) COPD with emphysema: Plan Impression: 84-year-old female being admitted to the hospital for altered mental status/unresponsive episode. Pulmonary consulted for abnormal chest CT/pulmonary nodule Past medical history: CKD 3, diabetes type 2, HFpEF, cirrhosis with esophageal varices, cerebrovascular disease Recommendations: 1. Pulmonary nodules: Images were independently reviewed. Agree that there has been change in the nodule. Malignancy would be a diagnosis of exclusion. Extensive discussion held with the patient. She states that she is not sure she wants to undergo any procedures and if she were found to have malignancy, she is not sure if she would agree to any therapy. She wants to take it under advisement and consider discussion with family members including her . Do not think this needs to be intervened on currently and evaluation can be conducted as an outpatient. PET scanning may be beneficial to evaluate for metabolic activity of the contralateral pulmonary nodule. Again the patient is unsure if she wants to pursue any intervention currently. She has been initiated on antibiotics in the form of Rocephin and doxycycline. She has not been febrile. Her white count is normal. Procalcitonin was not assessed. My suspicion for an infectious etiology is quite low. If antibiotics are to be continued, could de-escalate to oral Augmentin for 5 days. 2. Would recommend the patient follow-up with Dr. Welsh in the outpatient setting at discharge. 3. COPD: Not bronchospastic currently and patient is asymptomatic. She is not on any inhalers currently. Patient is doing reasonably well clinically. Pulmonary will sign off. Feel free to contact us with changes or questions in her clinical status. Otherwise recommend outpatient follow-up with Dr. Welsh Admission and Anticipated Discharge Date Admission Date: January 12, 2025 Subjective Patient seen and examined. EMR reviewed. Discussed with outgoing service rig operator. Patient reports that she is doing fine. She states she has no issues with her lungs. She denies any shortness of breath cough or sputum production. No chest pain or palpitations. She is able to ambulate to the restroom with the assistance of her walker. She states she is not really interested in pursuing any invasive procedures as she states given her age and medical comorbidities she is unlikely to consider any intervention. Regardless she is not interested in any intervention currently. Review of Systems 2 Review of Systems: All systems reviewed & are unremarkable except as noted in Subjective Physical Exam 2 Constitutional: WD/WN, vitals as above Neck: trachea midline, no thyromegaly Respiratory: normal respiratory effort, lungs clear to auscultation Cardiovascular: RRR, no murmur, no edema Gastrointestinal (Abdomen): normal bowel sounds, soft, nontender, no hepatosplenomegaly Musculoskeletal: Extremities: extremities normal to inspection Skin: no rashes, warm and dry Neurologic: Nonfocal exam Lymphatic: no cervical lymphadenopathy Results & Data Results & Data Vital Signs (Past 12 Hours) Vital Signs Temp Pulse Pulse Resp BP Pulse Ox O2 Del Method 01/13/25 08:34 36.4 C L 68 20 124/56 L 96 Room Air 01/13/25 07:48 Room Air 01/13/25 07:06 77 01/13/25 03:50 36.3 C L 69 18 100/62 92 Room Air 01/13/25 00:15 36.4 C L 83 20 117/64 92 Room Air 01/12/25 21:40 74 Laboratory Results 01/13/25 06:11 01/13/25 06:11 Diagnostic Findings No new imaging PG Care Time/CCT Total # of Minutes Spent Total Time Spent with Patient: Total time spent is greater than 50% in coordination of care (as documented) at patient's floor/unit and/or counseling patient: Coding Level of Care Code 23551 SUB INP/OBS CARE 2/35MIN Diagnoses Pulmonary mass R91.8 Multiple pulmonary nodules R91.8 COPD with emphysema J43.9
[2025-01-13] MEDS: INSULIN HUMAN NPH SC SCH (09:11)
[2025-01-13 11:55] VITALS: BP 143/66; PULSE 98; TEMP 97.7; O2SAT 98
--- NOTE | 2025-01-13 12:22 | Hospitalist Progress Note ---
Date of Service January 13, 2025 Assessment & Plan (1) Episode of confusion: Plan: 84-year-old female with history of CHF, preserved ejection fraction, diabetes type 2, CKD stage III, hepatic cirrhosis with esophageal varices, cerebrovascular disease, presenting with unresponsive episode. Presented with unresponsive episode and Episode of confusion Pneumonia-Possible Lower Lobe pneumonia, BL possible UTI-urine culture: pending Has been started on intravenous ceftriaxone and doxycycline Remains pleasantly confused and she wants to go home Remains afebrile and white count is not elevated and does not have any cough and no shortness of breath Will continue current antibiotic Left lower lobe mass Seen on CT chest:IMPRESSION: 1. 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 Needs histopathological correlation. 2. Rest of imaging findings represents chronic changes as detailed above. 3. Status post cholecystectomy. 4. Mild cardiomegaly. Needs correlation with echocardiography. 5. Mild thoracic spondylosis. Pulmonology service consulted-appreciate input and recommendation Rule out CVA CT head: No acute process MRI-Negative for any stroke Acute kidney injury Creatinine 2.0, baseline 1.4 Hold torsemide, losartan Start IV fluids-renal function is a little better with creatinine of 1.96 Thrombocytopenia Platelet 81, baseline low 100s Monitor closely Other chronic medical problems: CHF PEF-currently on the dry side Diabetes type 2- insulin sliding scale, glycemic consult Hepatic cirrhosis with esophageal varices Cerebrovascular disease DVT prophylaxis SCDs for now for possible biopsy of left lower lobe mass CODE STATUS DNR as per patient Disposition MedSurg telemetry Will discussed with the and the patient whenever he is around Admission and Anticipated Discharge Date Admission Date: January 12, 2025 Subjective 01/13/2025 The patient was seen and examined in the medical telemetry unit She seems to be pleasantly confused and wants to go home She knew that she was brought in with an unresponsive episode and she does not want to go for any further testing Denies any significant chest pain, palpitation or shortness of breath Does not have any abdominal pain nausea and/or vomiting Review of Systems Review of Systems: All systems reviewed and are unremarkable except as noted below Physical Exam Physical Exam: Lying in bed without any acute distress Constitutional: well developed, well nourished, + ill appearing and + thin Eyes: PERRL, conjunctivae normal, anicteric sclerae ENMT: external ear and nose normal, oropharynx normal Neck: trachea midline, no thyromegaly Respiratory: no respiratory distress Auscultation: lungs clear to auscultation bilaterally Cardiovascular: Rate/Rhythm: regular rate and regular rhythm; not tachycardic Heart Sounds: normal S1, normal S2 and + murmur Extremities: no edema Gastrointestinal (Abdomen): Inspection/Auscultation: normal bowel sounds; abdomen not distended Percussion/Palpation: abdomen soft; abdomen nontender Musculoskeletal: No acute arthritis involving any of the joint Neurologic: normal touch/pain/proprioception, moves all extremities and + confused (Pleasantly confused); no focal motor deficits Lymphatic: no cervical or axillary lymphadenopathy Results & Data Results & Data Vital Signs (Past 12 Hours) Vital Signs Temp Pulse Pulse Resp BP Pulse Ox O2 Del Method 01/13/25 11:55 36.5 C 98 H 20 143/66 H 98 Room Air 01/13/25 08:34 36.4 C L 68 20 124/56 L 96 Room Air 01/13/25 07:48 Room Air 01/13/25 07:06 77 01/13/25 03:50 36.3 C L 69 18 100/62 92 Room Air 01/13/25 00:15 36.4 C L 83 20 117/64 92 Room Air Laboratory Results Short CBC 01/13/25 Range/Units 06:11 WBC 3.77 L (4.8-10.8) K/ul Hgb 11.2 L (12.0-16.0) g/dl Hct 32.1 L (37.0-47.0) % Plt Count 72 L (130-400) K/uL BMP 01/12/25 01/13/25 11:57 06:11 Sodium 136 137 Potassium 4.4 3.6 Chloride 100 104 Carbon Dioxide 26 26 BUN 47 H 46 H Creatinine 2.02 H 1.96 H Glucose 181 H 222 H Calcium 9.1 8.5 L Liver Function 01/12/25 01/13/25 Range/Units 11:57 06:11 Total Bilirubin 1.3 H 0.9 (0.2-1.0) mg/dl Direct Bilirubin 0.4 H (0-0.2) mg/dl AST 27 22 (13-39) U/L ALT 19 15 (7-52) U/L Alkaline Phosphatase 54 44 (34-104) U/L Albumin 2.9 L 2.6 L (3.4-5.0) gm/dl Urine 01/12/25 01/13/25 Range/Units 12:07 04:30 Urine Color Yellow Yellow Urine Appearance Cloudy A Turbid A (Clear) Urine pH 8.5 H 7.0 (4.5-7.5) Ur Specific [place] 1.009 1.010 (1.000-1.030) Urine Protein 1+ H Trace H (Negative) Urine Glucose (UA) Negative Negative (Negative) Medications Administered Current Inpatient Medications Acetaminophen (Acetaminophen 325 Mg Tab) 650 mg PO Q4H PRN PRN Reason: Pain or Fever Stop: 02/11/25 19:07 Last Admin: 01/13/25 01:07 Dose: 650 mg Atorvastatin Calcium (Atorvastatin 40 Mg Tab) 40 mg PO DAILY@1400 [facility] Stop: 02/12/25 13:59 Carvedilol (Carvedilol 6.25 Mg Tab) 6.25 mg PO BID DESIREE Stop: 02/11/25 20:59 Last Admin: 01/13/25 09:12 Dose: 6.25 mg Dextrose (Dextrose 50% 50 Ml Syringe) 25 - 50 ml IV UD PRN; Protocol PRN Reason: Hypoglycemia Protocol Stop: 02/11/25 16:17 Doxycycline Hyclate (Doxycycline Hyclate 100 Mg Cap) 100 mg PO BID [facility] Stop: 01/17/25 20:59 Last Admin: 01/13/25 09:12 Dose: 100 mg Glucagon (Glucagon For Inj 1 Mg Vial) 1 mg SQ UD PRN; Protocol PRN Reason: Hypoglycemia Protocol Stop: 02/11/25 16:17 Glucose (Glucose 40% Gel 15 Gm Tube) 15 - 30 gm PO UD PRN; Protocol PRN Reason: Hypoglycemia Protocol Stop: 02/11/25 16:17 Glucose (Glucose 10 Tab/Tube) 4 - 8 tab PO UD PRN; Protocol PRN Reason: Hypoglycemia Protocol Stop: 02/11/25 16:17 Sodium Chloride (Nss) 1,000 mls @ 125 mls/hr IV .Q8H [facility] Stop: 01/15/25 16:14 Last Admin: 01/13/25 04:32 Dose: 125 mls/hr Ceftriaxone Sodium (Rocephin) 2,000 mg in 50 mls @ 100 mls/hr IV Q24H [facility] Stop: 01/18/25 12:59 Insulin Aspart (Insulin Aspart Per Unit Charge) 0 units SC ACHS [facility] Stop: 02/11/25 17:59 Last Admin: 01/13/25 09:11 Dose: 2 units Insulin Human NPH (Insulin Human Nph) 10 units SC BIDM [facility] Stop: 02/12/25 07:59 Last Admin: 01/13/25 09:11 Dose: 10 units Magnesium Oxide (Magnesium Oxide 400 Mg Tab) 400 mg PO BID [facility] Stop: 02/11/25 20:59 Last Admin: 01/13/25 09:12 Dose: 400 mg Melatonin (Melatonin 3 Mg Tab) 9 mg PO HS [facility] Stop: 02/11/25 20:59 Last Admin: 01/12/25 20:04 Dose: 9 mg Miscellaneous (Carbohydrates For Hypoglycemia ) 15 - 30 gm PO UD PRN PRN Reason: Hypoglycemia Protocol Stop: 02/11/25 16:17 Miscellaneous Information (Pharmacy Glycemic Mgmt Consult) 1 each N/A UD PRN PRN Reason: Consult Stop: 02/11/25 16:17
[2025-01-13] MEDS ORDERED: cefTRIAXone SODIUM 2,000 MG/50 ML BAG IV SCH (13:00)
[2025-01-13] MEDS ORDERED: ATORVASTATIN 40 MG TAB PO SCH (14:00)
[2025-01-13] MEDS ORDERED: AMOXICILLIN/CLAVULANATE 875 MG TAB PO SCH (17:00)
[2025-01-13] MEDS ORDERED: AMOXICILLIN/CLAVULANATE 500 MG TAB PO SCH (17:00)
--- NOTE | 2025-01-14 19:07 | Discharge Summary ---
Date of Service January 14, 2025 Admission HPI Per Admitting Provider 84-year-old female with history of CHF, preserved ejection fraction, diabetes type 2, CKD stage III, hepatic cirrhosis with esophageal varices, cerebrovascular disease, presenting with unresponsive episode. History obtained from EMS records, patient and also with her daughter Jn over the phone as patient could not recall events at home this morning. Patient said she has been feeling fine overall in the past few days. she lives with her and ambulates using a walker. She and her had dinner in a restaurant and went to bed fine. This morning, around 10:00 AM, the patient was was woken up by her and she was noticed to be disoriented and confused. EMS called, BP 160s, blood glucose was 170s. CT head, abd: no acute process, left lower lobe mass UA possible UTI CT chest: Possible bibasilar pneumonia crea 2.0 She was given IV fluids and IV Ceftriaxone. On exam, patient seen resting in bed, comfortable, oriented x 3, answering questions appropriately States she feels fine overall. Does not recall events this morning except being in the ambulance no chest pain, dyspnea, palpitations, dizziness no focal weakness/numbness Admission Exam Per Admitting Provider Physical Exam: General- oriented x 3, not in distress, speaks in sentences with no effort or accessory muscle use Head- atraumatic Eyes- PERRL, EOMI, anicteric ENT- oropharynx clear Neck- supple, no JVD, no adenopathy, no thyromegaly; carotids +2/2, no bruits appreciated Lungs- clear to auscultation bilaterally, no rales/wheezes Heart- normal rate, regular rhythm; no murmur, no gallop, no rub appreciated Abdomen- normal bowel sounds, nondistended, soft, (+) mild RLQ tenderness, no masses or hepatosplenomegaly Extremities- no pretibial edema, no calf tenderness; peripheral pulses intact Neuro- alert, oriented x 3; CN 2-12 grossly intact; motor 5/5 bilaterally;sensation 100% on all extremities; no other gross focal neurologic deficits Skin- warm & dry Principal Diagnosis Unresponsive episode at home, possible pneumonia, left lower lobe lung mass Discharge Exam Lying in bed without any acute distress Constitutional well developed, well nourished, + ill appearing and + thin Eyes PERRL, conjunctivae normal, anicteric sclerae ENMT external ear and nose normal, oropharynx normal Neck trachea midline, no thyromegaly Respiratory no respiratory distress Auscultation: lungs clear to auscultation bilaterally Cardiovascular Rate/Rhythm: regular rate and regular rhythm; not tachycardic Heart Sounds: normal S1, normal S2 and + murmur Extremities: no edema Gastrointestinal (Abdomen) Inspection/Auscultation: normal bowel sounds; abdomen not distended Percussion/Palpation: abdomen soft; abdomen nontender Neurologic normal touch/pain/proprioception, moves all extremities and + confused (Pleasantly confused); no focal motor deficits Lymphatic no cervical or axillary lymphadenopathy Discharge Data Allergies Allergy/AdvReac Type Severity Reaction Status Date / Time nickel Allergy "Cheap Verified 06/05/23 08:36 metal = rash" Consultations 01/12/25 14:30 ED Decision to Admit Stat 01/12/25 16:18 Consult Pulmonology Routine Ordered Studies 01/12/25 11:49 CT head/brain wo con Stat 01/12/25 12:37 CT abd pelvis wo con Stat 01/12/25 16:18 CT chest diagnostic wo con Routine MRI Brain [MR brain wo con] Routine Hospital Course (1) Episode of confusion: 84-year-old female with history of CHF, preserved ejection fraction, diabetes type 2, CKD stage III, hepatic cirrhosis with esophageal varices, cerebrovascular disease, presenting with unresponsive episode. Presented with unresponsive episode and Episode of confusion Pneumonia-Possible Lower Lobe pneumonia, BL possible UTI-urine culture: pending Has been started on intravenous ceftriaxone and doxycycline Remains pleasantly confused and she wants to go home Remains afebrile and white count is not elevated and does not have any cough and no shortness of breath Will continue current antibiotic Left lower lobe mass Seen on CT chest:IMPRESSION: 1. 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 Needs histopathological correlation. 2. Rest of imaging findings represents chronic changes as detailed above. 3. Status post cholecystectomy. 4. Mild cardiomegaly. Needs correlation with echocardiography. 5. Mild thoracic spondylosis. Pulmonology service consulted-appreciate input and recommendation Rule out CVA CT head: No acute process MRI-Negative for any stroke Acute kidney injury Creatinine 2.0, baseline 1.4 Hold torsemide, losartan Start IV fluids-renal function is a little better with creatinine of 1.96 Thrombocytopenia Platelet 81, baseline low 100s Monitor closely Other chronic medical problems: CHF PEF-currently on the dry side Diabetes type 2- insulin sliding scale, glycemic consult Hepatic cirrhosis with esophageal varices Cerebrovascular disease DVT prophylaxis SCDs for now for possible biopsy of left lower lobe mass CODE STATUS DNR as per patient Disposition MedSurg telemetry Will discussed with the and the patient whenever he is around Total Time Total Time Spent Total Time Spent (In Minutes): 35 minutes Discharge Plan Discharge Items Patient Disposition: Home - Self-Care Reason For Visit: UNRESPONSIVENESS, UTI Discharge Diagnosis: Unresponsive episode at home, possible pneumonia, left lower lobe lung mass Condition on Discharge: Fair Activity: Resume your previous activity Non-emergency contact: Primary Care Provider Call non-emergency contact if: you have any medication questions and your symptoms worsen Follow-up/Referrals: Alexy Al MD [Primary Care Provider] - (Your doctor's office will give you a call tomorrow with an appointment within 7 days) Diet: Carb Consistent or DM2 and Heart Healthy Addtl Attending Provider Instructions: Please take precautions to avoid falls Finished a course of antibiotic Try to drink more fluid You can try some probiotic [id number] Please keep your appointment with your healthcare providers Pending Studies at Discharge: No Stand-Alone Forms: My [email or web address], Smoking Cessation Medications and DC Order Prescriptions: New amoxicillin-pot clavulanate 500-125 mg Tablet 1 tab PO BIDM Qty: 10 0RF Continued atorvastatin 40 mg tablet 40 mg PO .AFTERNOON torsemide 20 mg tablet 20 mg PO DAILY Hold Instructions: Resume on 07/13/23. Patient Comments: 01/12- not listed on the faxed med list. Last filled 12/25 90 day supply #180. Original: 40 mg po daily. Novolin 70/30 U-100 Insulin 100 unit/mL (70-30) suspension 10 - 25 unit SUBCUT UD Hold Instructions: Resume on 07/13/23. Rx Instructions: 25units before breakfast and 10units before supper. carvedilol 3.125 mg tablet 6.25 mg PO BID Patient Comments: 01/12- 3.125mg dose not listed on the faxed med list. Unable to verify. 11/12/24 6.25mg po bid was filled (100 day supply #200) but not on the faxed list either. metformin 1,000 mg tablet 500 mg PO BID Hold Instructions: Resume on 07/13/23. losartan 25 mg tablet 25 mg PO DAILY Hold Instructions: Resume on 07/13/23. vitamin B complex Capsule 1 cap PO DAILY cinacalcet [Sensipar] 30 mg Tablet 30 mg PO DAILY melatonin 10 mg Tablet 10 mg PO HS biotin 1 mg Capsule 1 mg PO DAILY magnesium oxide 400 mg magnesium Capsule 400 mg PO BID Qty: 60 0RF Hold Instructions: Resume on 07/13/23. Discharge Orders: Discharge Order (Routine); Ordered 01/13/25 Ordered By: Zackary Parrish Admission Data Admit Date/Time: 01/12/25 16:15 Attending Provider: Zackary Parrish Admit Provider: Santi Madden Primary Care Provider: Alexy Al Other Providers: Santi Madden; Donald Owen; Ang Cage; Reji Welsh; Ana Cristina Stacy; Jose Rosario; Анна Ruiz Other Interventions: Discharge Summary Assessment (RN) Last Done: 01/13/25 13:43
== END 2025-01-13 13:52 | disposition home or self-care (01) | DRG 194 ==
LOC: ED 11:43 → SUATTDRO 16:15 → 2N 16:15

== ENCOUNTER 2025-02-21 08:37 | Inpatient (IN) ==
--- NOTE | 2025-02-21 08:43 | Emergency Department Note ---
Impression & Plan Acute GI bleeding, Esophageal varices, Hematemesis, COPD with emphysema, Acute hypoxemic respiratory failure ED Provider Note NAME: FARHAN RUSSELL AGE: 84 SEX: F : 1940 ARRIVES VIA: Ambulance INFORMANT: Patient, EMS/nursing report ED PROVIDER(S): Crescencio Olivarez MD CHIEF COMPLAINT: Fall, head strike, dark stools, hematemesis MEDICAL DECISION MAKING: Patient presents due to concern for fall with reported head strike. Patient currently denies complaint of pain now but did reportedly have pain yesterday. IV was established and blood work was obtained. PPI bolus and drip, octreotide bolus and drip as well as empiric IV Rocephin were ordered along with a type and screen [id number] and procalcitonin. Vital signs stable at the bedside. Given the patient's history of esophageal varices and concerns for dark stools and hematemesis I did speak with the on-call terrazzo grinder Dr. Jurado. Patient's initial [id number] did show an elevated creatinine so CT abdomen pelvis was ordered without contrast. Patient's hemoglobin is normal. Patient with a normal white count hemoglobin with thrombocytopenia at 86,000. Patient's kidney function is creatinine 1.89. This is around the patient's baseline. Calcium 11.4. Bilirubin 1.3 although it has been elevated in the past. Pro-Douglas not elevated. Patient CT head is negative. CT abdomen pelvis shows stable lower lobe lung mass no acute finding CT lumbar spine negative. Reported the patient was hypoxic. Review of the notes through show the patient has a known history of COPD. Patient was ordered a low-dose of IV methylprednisolone in light of concerns for GI bleeding at 60 mg instead of 125. Patient was ordered a DuoNeb treatment and was placed on supplemental nasal cannula oxygen. Critical Care: I have personally spent 79 minutes of critical care time in direct management of this patient. This includes bedside care, interpretation of diagnostic studies, and testing, discussion with consultants, patient, and family members, and other require inpatient management activities. This 79 minutes is in excess of all separately billable procedures. Discussion w/ other healthcare providers: Monalisa Bautista PA-C w/ Dr. Jurado w/ [facility] inpatient hospitalist service [facility] Prior /Outside records reviewed: I reviewed part of a discharge summary from Dr. Parirsh from January 14. Known history of CHF with preserved ejection fraction type 2 diabetes CKD stage III hepatic cirrhosis and esophageal varices who presented for an unresponsive episode. Review of the note also shows the patient is DNR. I did review part of the pulmonary consultation from Dr. shane from January 12. Patient then history of COPD pulmonary mass. Patient also with pulmonary nodules. Differential diagnosis: Diverticulitis, AVM, coagulopathy, colitis, inflammatory bowel disease, malignancy, esophagitis, peptic ulcer disease, variceal bleed, gastritis, fissure, hemorrhoids, as well as other pathologies. Diagnostics, as interpreted by me: ECG: Normal sinus rhythm, rate of 80, normal intervals, normal axis no obvious ST elevations. Cardiac monitoring: An order was placed for continuous cardiac monitoring. The monitor shows a rate of 85 with sinus rhythm. Patient was placed on pulse oximetry Medical decision rules: None Imaging studies: I informally interpreted the patient's chest x-ray may show pulmonary vascular congestion with formal report to follow. HPI: Ms. Russell is an 84 yo F with known history of esophageal varices, GERD, hepatic cirrhosis, HFpEF, osteoporosis who presents to the ED due to fall. Fell in the shower yesterday. Reports headache and low back pain at that time, however denies pain today. Patient also had episode of coffee ground emesis and tarry stools this morning. Denies cough or fever. No alcohol or tobacco use. She is not on blood thinners. So history was provided to EMS via the . Reviewed the records show the patient does have a prior history of varices. PAST MEDICAL HISTORY: See Below PAST SURGICAL HISTORY: See Below SOCIAL HISTORY: See Below HOME MEDICATIONS: See Below ALLERGIES: See Below VITALS: See Below PHYSICAL EXAMINATION: GENERAL: NAD, non-toxic. EYE EXAM: Normal conjunctiva. PERRL, no anisocoria and EOM's grossly intact w/o pain. OROPHARYNX: Moist mucus membranes, grossly normal dentition. NECK: Trachea midline, no stridor. Supple, no nuchal rigidity, no adenopathy, non-tender. No signs of meningismus. FROM of the neck with good chin to chest and neck extension. LUNGS: Clear to auscultation. Normal chest wall mechanics. HEART: NSR, no MRG. ABDOMEN: Abdomen soft, non-tender, no masses, no rebound or guarding. BACK: No CVA TTP. SKIN: No rashes and no bruising. UPPER EXTREMITIES: Upper extremities are grossly normal. LOWER EXTREMITIES: Grossly normal, no edema. NEURO EXAM: Awake and alert, follows commands, no obvious facial asymmetry, normal speech, moves all 4 extremities. Past Med/Surg History Problem List (Updated 02/21/25 @ 15:46 by Crescencio Olivarez MD) Metabolic encephalopathy Acute hypoxemic respiratory failure (Acute) Episode of confusion COPD with emphysema (Acute) Multiple pulmonary nodules Pulmonary mass AMS (altered mental status) (Acute) JANELL (acute kidney injury) (Acute) JANELL (acute kidney injury) (Acute) Hypomagnesemia Melena Hematemesis (Acute) Elevated lactic acid level (Acute) Renal insufficiency (Acute) Esophageal varices (Acute) Acute lower GI bleeding (Acute) Acute GI bleeding (Acute) Acute blood loss anemia (Acute) Hepatic cirrhosis (Acute) History of ischemic colitis (Acute) GI bleed (Acute) pt unaware Ischemic colitis Leukocytosis HTN (hypertension) Hyperparathyroidism Pulmonary nodule Ovarian cyst Anemia Chronic heart failure with preserved ejection fraction (HFpEF) Colitis Leg edema Hypoxia Abdominal pain Sepsis Ovarian mass, right (Acute) Vomiting (Acute) Abnormal EKG (Acute) Elevated troponin I level (Acute) Abdominal pain, acute, right lower quadrant (Acute) Ileocolitis (Acute) Microcytic anemia Idiopathic polyneuropathy Right homonymous hemianopsia Muscle weakness of right arm S/P hysterectomy S/P tonsillectomy S/P appendectomy Mitral stenosis Elevated troponin (Acute) Bilateral lower extremity edema (Acute) CHF (congestive heart failure) (Acute) GERD (gastroesophageal reflux disease) (Chronic) Osteoporosis (Chronic) Hip pain Hyperparathyroidism (Chronic) Nontoxic multinodular goiter (Chronic) Vitamin D deficiency (Chronic) DM type 2 (diabetes mellitus, type 2) (Chronic) Lumbago Other and unspecified hyperlipidemia Type 2 diabetes mellitus without complications Essential (primary) hypertension Coronary atherosclerosis of lummi coronary vessel Medical History Encounter for pre-operative examination CHF (congestive heart failure) Anemia Osteoporosis GERD (gastroesophageal reflux disease) Hyperparathyroidism Hypertension Poor historian Abnormal EKG pt unaware Acute respiratory failure CVA (cerebral vascular accident) Jan 2022 per pt > has some right hand weakness > does not follow with neuro Weakness of right upper extremity s/p CVA, just on occasion Acute heart failure with preserved ejection fraction (HFpEF) pt unaware Acute respiratory failure with hypoxia pt unaware Surgical History History of colonoscopy History of endovascular stent graft for abdominal aortic aneurysm unsure if this is exactly what she has, but had done in Apr 2022 at [place] she thinks it was for AAA S/P tonsillectomy S/P hysterectomy S/P appendectomy History of heart artery stent placed 1994 S/P cholecystectomy History of cataract surgery bilat Family History Mother , age 70 of a stroke and congestive heart failure Stroke CHF (congestive heart failure) Father , in his 70s of an [place] Myocardial infarction Social History Smoking Status: Former smoker Tobacco Type: Cigarettes packs per day: 4; Second Hand Exposure: No; Do You Dip or Chew Tobacco: No; Hx Alcohol Use: Yes Alcohol type: beer Alcohol Intake Frequency Comment: up to 1 beer to her day. Hx Substance Use: No Preferred Language: [place] Communication Ability: Effective Pepper Picker Required: No Beliefs That Will Affect Care: None marital status: Current Living Situation: Spouse Current Living Situation Comment: Home with current occupational status: retired current occupation: Multiple different jobs retiring in her 50s. Other Information That Helps Us Care for You: No Feels Safe at Home: Yes Safety Concerns: Feels Safe At This Time Assistive Devices: Glasses and Walker Allergies Allergies Allergy/AdvReac Type Severity Reaction Status Date / Time nickel Allergy "Cheap Verified 06/05/23 08:36 metal = rash" Home Meds Home Medications Medication Instructions Recorded Confirmed atorvastatin 40 mg tablet 40 mg PO .AFTERNOON 06/01/23 02/21/25 biotin 1 mg capsule 1 mg PO DAILY 06/01/23 02/21/25 carvedilol 3.125 mg tablet 6.25 mg PO BID 06/01/23 02/21/25 cinacalcet 30 mg tablet (Sensipar) 30 mg PO DAILY 06/01/23 02/21/25 insulin human U-100 NPH-regulr 0 unit subcut UD 06/01/23 02/21/25 70-30 mix 100 unit/mL subcutaneous susp (Novolin 70/30 U-100 Insulin) losartan 25 mg tablet 25 mg PO DAILY 06/01/23 02/21/25 melatonin 10 mg tablet 10 mg PO HS Insomnia 06/01/23 02/21/25 metformin 1,000 mg tablet 500 mg PO BID 06/01/23 02/21/25 torsemide 20 mg tablet 20 mg PO DAILY 06/01/23 02/21/25 vitamin B complex 1 cap PO DAILY 06/01/23 02/21/25 omeprazole 40 mg capsule,delayed 40 mg PO BID 02/21/25 02/21/25 release Previous Rx's Medication Instructions Recorded magnesium oxide 400 mg PO BID #60 caps 06/08/23 Results & Data (ED) Vital Signs Vital Signs - 24 hr 02/21/25 08:51 02/21/25 08:51 02/21/25 09:12 Temperature 36.7 C Temperature Source Oral Pulse Rate 81 81 81 Pulse Rate from SpO2 Sensor 80 81 Respiratory Rate 19 21 18 Respiratory Effort / Characteristics Non-Labored Respiratory Depth Normal Respiratory Pattern Regular Blood Pressure 154/99 H Blood Pressure Mean 117 Pulse Oximetry 99 99 100 Oxygen Delivery Method Room Air Nasal Cannula Nasal Cannula Oxygen Flow Rate 2 2 Sepsis Recent Fever Within 48 Hours No Sepsis New/Unexplained Change in Mental Status No Sepsis Action Taken by Nursing No Action Required 02/21/25 09:35 02/21/25 09:48 02/21/25 10:09 Temperature Temperature Source Pulse Rate 83 82 84 Pulse Rate from SpO2 Sensor 84 Respiratory Rate 21 13 Respiratory Effort / Characteristics Respiratory Depth Respiratory Pattern Blood Pressure Blood Pressure Mean Pulse Oximetry 95 Oxygen Delivery Method Nasal Cannula Oxygen Flow Rate 2 Sepsis Recent Fever Within 48 Hours Sepsis New/Unexplained Change in Mental Status Sepsis Action Taken by Nursing 02/21/25 10:13 02/21/25 10:15 02/21/25 10:30 Temperature Temperature Source Pulse Rate 83 Pulse Rate from SpO2 Sensor 83 Respiratory Rate 13 Respiratory Effort / Characteristics Respiratory Depth Respiratory Pattern Blood Pressure 151/73 H 156/71 H Blood Pressure Mean 115 126 Pulse Oximetry 91 Oxygen Delivery Method Nasal Cannula Oxygen Flow Rate 2 Sepsis Recent Fever Within 48 Hours Sepsis New/Unexplained Change in Mental Status Sepsis Action Taken by Nursing 02/21/25 10:30 02/21/25 10:36 Temperature Temperature Source Pulse Rate 83 84 Pulse Rate from SpO2 Sensor 83 85 Respiratory Rate 12 Respiratory Effort / Characteristics Respiratory Depth Respiratory Pattern Blood Pressure Blood Pressure Mean Pulse Oximetry 100 100 Oxygen Delivery Method Nasal Cannula Nasal Cannula Oxygen Flow Rate 2 2 Sepsis Recent Fever Within 48 Hours Sepsis New/Unexplained Change in Mental Status Sepsis Action Taken by Skilled Nursing Medications Current Medication List: was personally reviewed by me Laboratory Data Attestation: I reviewed the patient's lab results. 02/21/25 14:19 02/21/25 09:12 Lab Results 02/21/25 02/21/25 02/21/25 Range/Units 09:08 09:12 09:53 WBC 4.97 (4.8-10.8) K/ul RBC 4.09 L (4.20-5.40) M/uL Hgb 12.7 (12.0-16.0) g/dl POC Hgb 13.3 (12.0-16.0) g/dl Hct 38.1 (37.0-47.0) % POC Hct 39 (37-47) % MCV 93.2 (80.0-100.0) fL MCH 31.1 (25.0-34.0) pg MCHC 33.3 (32.0-36.0) g/dL RDW Std Deviation 54.2 H (36.4-46.3) fL RDW Coeff of Vanita 15.7 H (11.5-14.5) % Plt Count 86 L (130-400) K/uL MPV 12.5 H (9.4-12.4) fL Immature Gran % (Auto) 0.2 % Neut % (Auto) 68.9 % Lymph % (Auto) 19.5 % [place] % (Auto) 7.0 % Eos % (Auto) 3.4 % Baso % (Auto) 1.0 % Neut # (Auto) 3.42 (1.40-6.50) K/uL Lymph # (Auto) 0.97 L (1.20-3.40) K/uL [place] # (Auto) 0.35 (0.11-0.59) K/uL Eos # (Auto) 0.17 (0.00-0.50) K/uL Baso # (Auto) 0.05 (0.00-0.20) K/uL Immature Gran # (Auto) 0.01 (0.01-0.20) K/uL PT 12.5 H (9.0-12.0) Seconds INR 1.2 H (0.9-1.1) APTT 26 (21-31) Seconds PTT Ratio 1.0 VBG pH (7.36-7.41) VBG pCO2 (38-50) mmHg VBG pO2 mmHg VBG HCO3 mmol/L VBG O2 Saturation % VBG Base Excess mEq/L POC Sodium 132 L (135-144) mmol/L Sodium 133 L (136-145) mmol/L POC Potassium 4.3 (3.3-5.0) mmol/L Potassium 4.6 (3.5-5.1) mmol/L POC Chloride 96 L (101-112) mmol/L Chloride 93 L (98-107) mmol/L Carbon Dioxide 27 (21-32) mmol/L POC Total CO2 27 (24-31) mmol/L Anion Gap 13 H (3-11) POC Anion Gap 15.0 L (16-25) mmol/L POC BUN 45 H (7-18) mg/dl BUN 46 H (6-23) mg/dl Creatinine 1.89 H (0.6-1.2) mg/dl POC Creatinine 2.1 H (0.6-1.3) mg/dl Est Cr Clr Drug Dosing 19.9 ml/min eGFR 25.88 BUN/Creatinine Ratio 24.3 H (10-20) Glucose 180 H (70-99(Fasting)) mg/dl POC Glucose (other) 180 H (70-99) mg/dl Calcium 11.4 H (8.6-10.3) mg/dl POC Ioniz Calcium Cony 1.17 (1.12-1.32) mmol/l Iron 179 H (35-150) mcg/dl TIBC 304 (250-450) mcg/dl Unsaturated IBC 125 L (155-355) mcg/dl Transferrin 236 (200-360) mg/dl Transferrin % Sat 59 H (15-50) % Ferritin 40.2 (8-388) ng/ml Total Bilirubin 1.3 H (0.2-1.0) mg/dl AST 43 H (13-39) U/L ALT 24 (7-52) U/L Alkaline Phosphatase 66 (34-104) U/L Ammonia 78.0 H (18-72) umol/L Total Protein 7.0 (6.0-8.3) gm/dl Albumin 3.4 (3.4-5.0) gm/dl Globulin 3.6 (2.5-4.0) gm/dl Albumin/Globulin Ratio 0.9 (0.9-2) Vitamin B12 > 1500 H (180-914) pg/ml Procalcitonin 0.16 (0-0.5) ng/ml TSH 2.596 (0.300-4.500) uIu/ml Blood Type A Positive Antibody Screen NEGATIVE 02/21/25 Range/Units 10:24 WBC (4.8-10.8) K/ul RBC (4.20-5.40) M/uL Hgb (12.0-16.0) g/dl POC Hgb (12.0-16.0) g/dl Hct (37.0-47.0) % POC Hct (37-47) % MCV (80.0-100.0) fL MCH (25.0-34.0) pg MCHC (32.0-36.0) g/dL RDW Std Deviation (36.4-46.3) fL RDW Coeff of Vanita (11.5-14.5) % Plt Count (130-400) K/uL MPV (9.4-12.4) fL Immature Gran % (Auto) % Neut % (Auto) % Lymph % (Auto) % [place] % (Auto) % Eos % (Auto) % Baso % (Auto) % Neut # (Auto) (1.40-6.50) K/uL Lymph # (Auto) (1.20-3.40) K/uL [place] # (Auto) (0.11-0.59) K/uL Eos # (Auto) (0.00-0.50) K/uL Baso # (Auto) (0.00-0.20) K/uL Immature Gran # (Auto) (0.01-0.20) K/uL PT (9.0-12.0) Seconds INR (0.9-1.1) APTT (21-31) Seconds PTT Ratio VBG pH 7.43 H (7.36-7.41) VBG pCO2 40 (38-50) mmHg VBG pO2 39 mmHg VBG HCO3 27 mmol/L VBG O2 Saturation 66.3 % VBG Base Excess 2.0 mEq/L POC Sodium (135-144) mmol/L Sodium (136-145) mmol/L POC Potassium (3.3-5.0) mmol/L Potassium (3.5-5.1) mmol/L POC Chloride (101-112) mmol/L Chloride (98-107) mmol/L Carbon Dioxide (21-32) mmol/L POC Total CO2 (24-31) mmol/L Anion Gap (3-11) POC Anion Gap (16-25) mmol/L POC BUN (7-18) mg/dl BUN (6-23) mg/dl Creatinine (0.6-1.2) mg/dl POC Creatinine (0.6-1.3) mg/dl Est Cr Clr Drug Dosing ml/min eGFR BUN/Creatinine Ratio (10-20) Glucose (70-99(Fasting)) mg/dl POC Glucose (other) (70-99) mg/dl Calcium (8.6-10.3) mg/dl POC Ioniz Calcium Cony (1.12-1.32) mmol/l Iron (35-150) mcg/dl TIBC (250-450) mcg/dl Unsaturated IBC (155-355) mcg/dl Transferrin (200-360) mg/dl Transferrin % Sat (15-50) % Ferritin (8-388) ng/ml Total Bilirubin (0.2-1.0) mg/dl AST (13-39) U/L ALT (7-52) U/L Alkaline Phosphatase (34-104) U/L Ammonia (18-72) umol/L Total Protein (6.0-8.3) gm/dl Albumin (3.4-5.0) gm/dl Globulin (2.5-4.0) gm/dl Albumin/Globulin Ratio (0.9-2) Vitamin B12 (180-914) pg/ml Procalcitonin (0-0.5) ng/ml TSH (0.300-4.500) uIu/ml Blood Type Antibody Screen Administered Medications Atorvastatin Calcium (Atorvastatin 40 Mg Tab) 40 mg PO DAILY@1500 DESIREE Stop: 03/23/25 14:59 Last Admin: 02/21/25 14:47 Dose: 40 mg Documented By: CEF Pantoprazole Sodium 40 mg/ (Dextrose) 100 mls @ 20 mls/hr IV Q5H DESIREE Stop: 03/23/25 09:14 Last Admin: 02/21/25 14:50 Dose: 8 mg/hr, 20 mls/hr Documented By: Infusion: 02/21/25 14:50 Dose: Infused Documented By: Admin: 02/21/25 09:58 Dose: 8 mg/hr, 20 mls/hr Documented By: CAP Octreotide Acetate 500 mcg/ (Sodium Chloride) 100.5 mls @ 10.05 mls/hr IV .Q10H DESIREE Stop: 03/23/25 08:59 Last Admin: 02/21/25 10:02 Dose: 50 mcg/hr, 10.1 mls/hr Documented By: CAP Sodium Chloride (Nss) 1,000 mls @ 80 mls/hr IV .[id number] [facility] Stop: 02/22/25 00:00 Last Admin: 02/21/25 11:16 Dose: 80 mls/hr Documented By: CAP Discontinued Medications Albuterol (Albut/Ipratrop 3mg/0.5mg Neb 3 Ml Vial) 3 ml NEB NOW STA; Protocol Stop: 02/21/25 10:14 Last Admin: 02/21/25 10:20 Dose: 3 ml Documented By: CAP Haloperidol Lactate (Haloperidol Lactate 5 Mg/Ml 1 Ml Vial) 0.5 mg IV NOW STA Stop: 02/21/25 11:39 Last Admin: 02/21/25 11:58 Dose: 0.5 mg Documented By: CAP Sodium Chloride (Nss) 500 mls @ 999 mls/hr IV .Q31M DESIREE Stop: 02/21/25 09:30 Last Infusion: 02/21/25 11:54 Dose: Infused Documented By: Admin: 02/21/25 10:00 Dose: 999 mls/hr Documented By: CAP Pantoprazole Sodium 80 mg/ (Dextrose) 120 mls @ 480 mls/hr IV NOW ONE Stop: 02/21/25 09:03 Last Infusion: 02/21/25 09:58 Dose: Infused Documented By: Admin: 02/21/25 09:38 Dose: 480 mls/hr Documented By: CAP Octreotide Acetate 100 mcg/ (Syringe) 10 mls @ 3 mls/min IV NOW STA Stop: 02/21/25 08:52 Last Admin: 02/21/25 09:54 Dose: 3 mls/min Documented By: CHIDI Ceftriaxone Sodium (Rocephin) 2,000 mg in 50 mls @ 100 mls/hr IV NOW STA Stop: 02/21/25 09:18 Last Infusion: 02/21/25 10:24 Dose: Infused Documented By: Admin: 02/21/25 09:34 Dose: 100 mls/hr Documented By: CHIDI Sodium Chloride (Nss) 500 mls @ 999 mls/hr IV .Q31M ONE Stop: 02/21/25 12:25 Last Infusion: 02/21/25 13:30 Dose: Infused Documented By: Admin: 02/21/25 12:00 Dose: 999 mls/hr Documented By: CHIDI Insulin Aspart (Insulin Aspart Per Unit Charge) 0 units SC ACHS DESIREE Stop: 03/23/25 11:29 Last Admin: 02/21/25 12:32 Dose: 1 units Documented By: KERRY Co-signed By: CHIDI Methylprednisolone (Methylprednisolone 125 Mg/2 Ml Vial) 60 mg IV NOW STA Stop: 02/21/25 10:14 Last Admin: 02/21/25 10:21 Dose: 60 mg Documented By: CHIDI Miscellaneous (Stat Iv/Im) 1 each N/A NOW STA Stop: 02/21/25 08:50 Last Admin: 02/21/25 09:54 Dose: Not Given Documented By: CHIDI Pantoprazole Sodium (Pantoprazole Bolus/Drip) 1 each IV NOW STA Stop: 02/21/25 08:50 Last Admin: 02/21/25 09:54 Dose: Not Given Documented By: CHIDI Imaging Data Radiologist's Impression: Head CT 02/21/25 08:49 CT SCAN OF THE BRAIN WITHOUT IV CONTRAST CLINICAL HISTORY: Fall. Head injury. COMPARISON STUDY: Head CT and MRI of the brain January 12, 2025. TECHNIQUE: Unenhanced axial CT scan of the brain was performed from the vertex to the skull base. A dose lowering technique was utilized adhering to the principles of ALARA. FINDINGS: No acute intracranial hemorrhage, midline shift or mass effect is present. Ventricular system is unremarkable. White matter hypodensities are unchanged and favor small vessel disease. Old foci of encephalomalacia within the left occipital and parietal lobes are unchanged. Prominence of the extra- axial spaces is unchanged and due to atrophy. No extra-axial fluid collections are present. There are no calvarial fractures. IMPRESSION: 1. No acute intracranial findings. No change in appearance of the brain. 2. No calvarial fractures. ACT 112: Negative or not required by law. Electronically signed by: Karson Goddard M.D. 02/21/2025 9:51 AM Abdomen/Pelvis CT 02/21/25 09:[address] WITHOUT CONTRAST CT DOSE: 1716 HISTORY: ab pain, gi bleeding TECHNIQUE: Multiaxial CT images of the abdomen and pelvis were performed without contrast. A dose lowering technique was utilized adhering to the principles of ALARA. COMPARISON STUDY: 01/12/2025 FINDINGS: There is a stable 3 cm mass at the left lower lung lobe. There are diffuse coronary artery calcifications. ABDOMEN: Stable calcification anterior right abdominal wall subcutaneous tissues. Gallbladder is surgically absent. Stable nodular liver consistent with cirrhosis. No ascites seen. Spleen, pancreas, and right adrenal gland have an unremarkable non-IV contrasted appearance. Left adrenal gland is not well seen. There is grossly stable prominence of the left adrenal gland. The kidneys show no hydronephrosis. Stable small calculus lower right kidney. There are scattered atherosclerotic calcifications. Stable small aneurysm at the left posterior lateral aspect of the distal aorta measuring 1.8 x 0.9 cm, stable. Pelvis: Stable 11 cm cyst at the right pelvis. Urinary bladder is mildly distended. There is moderate retained stool. There is sigmoid diverticulosis. No acute diverticulitis. No bowel inflammation or obstruction. No free fluid or free air. No grossly enlarged adenopathy. Osseous structures: There is osteopenia. There are severe degenerative changes at the lumbar spine. No acute fracture seen at the visualized osseous structures. IMPRESSION: 1. No acute findings. 2. Stable 3 cm left lower lobe lung mass. 3. Otherwise as described. ACT 112: Negative or not required by law. The above report was generated using voice recognition software. It may contain grammatical, syntax or spelling errors. Electronically signed by: Morro Valentin M.D. 02/21/2025 10:[address] 02/21/25 09:12 CT lumbar spine wo con CLINICAL HISTORY: fall, back pain COMPARISON STUDY: 01/12/2025 FINDINGS: There is osteopenia. There is severe diffuse degenerative disc disease. There is stable mild height loss at the L1 vertebral body. Stable minimal height loss at the superior endplate of L2. Stable minimal height loss at the superior endplate of L4. No interval fracture seen at the lumbar spine. There is stable grade 1 anterolisthesis of L2 on 3. There is moderate left neural foraminal narrowing at L4-5 and L5-S1. Stable minimal scoliosis. There is moderate central canal narrowing at L3-4 and L4-5. IMPRESSION: No acute lumbar spine fracture seen. Otherwise as described. ACT 112: Negative or not required by law. Electronically signed by: Morro Valentin M.D. 02/21/2025 9:52 AM Chest X-Ray 02/21/25 10:12 XR chest 1V portable CLINICAL HISTORY: hypoxia COMPARISON STUDY: 01/12/2025 FINDINGS: There is stable mild cardiomegaly with mild pulmonary vascular congestion. Inspiration is shallow. There is increased reticular opacity in the lung bases. No pleural effusion or pneumothorax. IMPRESSION: 1. Mild CHF. 2. Pneumonia versus atelectasis in the lung bases. ACT 112: Negative or not required by law. Electronically signed by: Morro Valentin M.D. 02/21/2025 10:34 AM Discharge Plan Visit Data Chief Complaint: Fall Stated Complaint: FALLS, HEMATEMESIS, DARK STOOL ED Provider: Crescencio Olivarez Discharge Problem: Acute GI bleeding, Esophageal varices, Hematemesis, COPD with emphysema, Acute hypoxemic respiratory failure Patient Disposition: Admitted As Inpatient Condition: Fair Discharge Instructions Interventions: ED Discharge Assessment Last Done: 02/21/25 12:43 Discharge Problem: Esophageal varices Qualifiers: Esophageal varices type: unspecified type Hematemesis Qualifiers: Nausea presence: unspecified Qualified Code(s): K92.0 - Hematemesis
[2025-02-21] MEDS: cefTRIAXone SODIUM 2,000 MG/50 ML BAG IV STA (09:34)
[2025-02-21 09:40] LABS: Hematocrit (blood only) 38.1 % (37.0-47.0); Hemoglobin 12.7 g/dl (12.0-16.0); Immature Granulocytes # (auto) 0.01 K/uL (0.01-0.20); Immature Granulocytes % (auto) 0.2 %; Mean Corpuscular Hemoglobin 31.1 pg (25.0-34.0); Mean Corpuscular Volume 93.2 fL (80.0-100.0); Platelet Count 86 K/uL (130-400); RDW Standard Deviation 54.2 fL (36.4-46.3); Red Blood Count 4.09 M/uL (4.20-5.40); White Blood Count 4.97 K/ul (4.8-10.8)
--- NOTE | 2025-02-21 09:53 | CT Scan Report ---
CT SCAN OF THE BRAIN WITHOUT IV CONTRAST CLINICAL HISTORY: Fall. Head injury. COMPARISON STUDY: Head CT and MRI of the brain January 12, 2025. TECHNIQUE: Unenhanced axial CT scan of the brain was performed from the vertex to the skull base. A dose lowering technique was utilized adhering to the principles of ALARA. FINDINGS: No acute intracranial hemorrhage, midline shift or mass effect is present. Ventricular syst em is unremarkable. White matter hypodensities are unchanged and favor small vessel disease. Old foci of encephalomalacia within the left occipital and parietal lobes are unchanged. Prominence of the ex tra-axial spaces is unchanged and due to atrophy. No extra-axial fluid collections are present. There are no calvarial fractures. IMPRESSION: 1. No acute intracranial findings. No change in appearance of the brain. 2. No calvarial fractures. ACT 112: Negative or not required by law. Electronically signed by: Karson Goddard M.D. 02/21/2025 9:51 AM
--- NOTE | 2025-02-21 09:53 | CT Scan Report ---
CT lumbar spine wo con CLINICAL HISTORY: fall, back pain COMPARISON STUDY: 01/12/2025 FINDINGS: There is osteopenia. There is severe diffuse degenerative disc disease. There is stable mild height loss at the L1 vertebral body. Stable minimal height loss at the superior endplate of L2. Stable minimal height loss at the superior endplate of L4. No interval fracture seen at the lumbar spine. There is stable grade 1 anterolisthesis of L2 on 3. There is moderate left neur al foraminal narrowing at L4-5 and L5-S1. Stable minimal scoliosis. There is moderate central canal n arrowing at L3-4 and L4-5. IMPRESSION: No acute lumbar spine fracture seen. Otherwise as described. ACT 112: Negative or not required by law. Electronically signed by: Morro Valentin M.D. 02/21/2025 9:52 AM
[2025-02-21] MEDS: PANTOPRAZOLE BOLUS/DRIP IV STA (09:54)
[2025-02-21] MEDS: OCTREOTIDE ACETATE 100 MCG in SYRINGE 9 ML IV STA (09:54)
[2025-02-21] MEDS: STAT IV/IM STA (09:54)
[2025-02-21] MEDS: PANTOprazole 40 MG in DEXTROSE 5% MINI-B 100 ML IV SCH (09:58)
[2025-02-21] MEDS: SODIUM CHLORIDE 0.9% 500 ML IV SCH (10:00)
[2025-02-21 10:01] LABS: Albumin Level 3.4 gm/dl (3.4-5.0); Anion Gap 13.0 (3-11); Bilirubin,Total 1.3 mg/dl (0.2-1.0); Calcium 11.4 mg/dl (8.6-10.3); Carbon Dioxide 27.0 mmol/L (21-32); Chloride 93.0 mmol/L (98-107); Potassium 4.6 mmol/L (3.5-5.1); Sodium 133.0 mmol/L (136-145)
[2025-02-21] MEDS: OCTREOTIDE ACETATE 500 MCG in SODIUM CHLORIDE 0.9% 100 ML IV SCH (10:02)
--- NOTE | 2025-02-21 10:03 | CT Scan Report ---
ABDOMEN AND PELVIS CT WITHOUT CONTRAST CT DOSE: 1716 HISTORY: ab pain, gi bleeding TECHNIQUE: Multiaxial CT images of the abdomen and pelvis were performed without contrast. A dose lo wering technique was utilized adhering to the principles of ALARA. COMPARISON STUDY: 01/12/2025 FINDINGS: There is a stable 3 cm mass at the left lower lung lobe. There are diffuse coronary artery calcifications. ABDOMEN: Stable calcification anterior right abdominal wall subcutaneous tissues. Gallbladder is surg ically absent. Stable nodular liver consistent with cirrhosis. No ascites seen. Spleen, pancreas, and right adrenal gland have an unremarkable non-IV contrasted appearance. Left adrenal gland is not wel l seen. There is grossly stable prominence of the left adrenal gland. The kidneys show no hydronephro sis. Stable small calculus lower right kidney. There are scattered atherosclerotic calcifications. St able small aneurysm at the left posterior lateral aspect of the distal aorta measuring 1.8 x 0.9 cm, stable. Pelvis: Stable 11 cm cyst at the right pelvis. Urinary bladder is mildly distended. There is moderate retained stool. There is sigmoid diverticulosis. No acute diverticulitis. No bowel inflammation or o bstruction. No free fluid or free air. No grossly enlarged adenopathy. Osseous structures: There is osteopenia. There are severe degenerative changes at the lumbar spine. N o acute fracture seen at the visualized osseous structures. IMPRESSION: 1. No acute findings. 2. Stable 3 cm left lower lobe lung mass. 3. Otherwise as described. ACT 112: Negative or not required by law. The above report was generated using voice recognition software. It may contain grammatical, syntax o r spelling errors. Electronically signed by: Morro Valentin M.D. 02/21/2025 10:00 AM
[2025-02-21 10:07] LABS: Alanine Aminotransferase 24.0 U/L (7-52); Albumin Globulin Ratio 0.9 (0.9-2); Alkaline Phosphatase 66.0 U/L (34-104); Blood Urea Nitrogen 46.0 mg/dl (6-23); Creatinine Clr Calc Pharmacy 19.9 ml/min; Globulin 3.6 gm/dl (2.5-4.0); Glucose 180.0 mg/dl (70-99(Fasting)); Total Protein 7.0 gm/dl (6.0-8.3)
[2025-02-21 10:10] LABS: INR 1.2 (0.9-1.1); Partial Thromboplastin Time 26 Seconds (21-31); Prothrombin Time 12.5 Seconds (9.0-12.0)
[2025-02-21] MEDS: ALBUT/IPRATROP 3MG/0.5MG NEB 3 ML VIAL NEB STA (10:20)
--- NOTE | 2025-02-21 10:36 | XRay Report ---
XR chest 1V portable CLINICAL HISTORY: hypoxia COMPARISON STUDY: 01/12/2025 FINDINGS: There is stable mild cardiomegaly with mild pulmonary vascular congestion. Inspiration is s hallow. There is increased reticular opacity in the lung bases. No pleural effusion or pneumothorax. IMPRESSION: 1. Mild CHF. 2. Pneumonia versus atelectasis in the lung bases. ACT 112: Negative or not required by law. Electronically signed by: Morro Valentin M.D. 02/21/2025 10:34 AM
[2025-02-21 10:40] LABS: Base Excess VBG 2.0 mEq/L; HCO3 VBG 27 mmol/L; Oxygen Saturation VBG 66.3 %; PCO2 VBG 40 mmHg (38-50); PO2 VBG 39 mmHg; pH VBG 7.43 (7.36-7.41)
[2025-02-21] MEDS ORDERED: DEXTROSE 50% 50 ML SYRINGE IV PRN (10:43)
[2025-02-21] MEDS ORDERED: GLUCOSE 10 TAB/TUBE PO PRN (10:43)
[2025-02-21] MEDS ORDERED: GLUCAGON FOR INJ 1 MG VIAL SQ PRN (10:43)
[2025-02-21] MEDS ORDERED: GLUCOSE 40% GEL 15 GM TUBE PO PRN (10:43)
[2025-02-21] MEDS ORDERED: CARBOHYDRATES FOR HYPOGLYCEMIA PO PRN (10:43)
[2025-02-21] MEDS: SODIUM CHLORIDE 0.9% 1,000 ML IV SCH (11:16)
--- NOTE | 2025-02-21 11:18 | History & Physical Report ---
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 #Hepatic Encephalopathy #Decompensated Alcoholic Cirrhosis #Hyperactive Delirium -as evidenced by agitation, fidgeting, high ammonia level, known decompensated cirrhosis -delicate situation as patient also has possible variceal bleed Plan: -haldol 0.5mg IV x1 given to avoid harm to self -admit to PCU given concern for variceal bleed -thiamine, folic acid ordered, check B12/TSH -delirium precautions -avoid anticholinergic medications -start lactulose tid once able to take PO pending EGD #R/o Variceal Bleed #Esophageal/Gastric Varices #Coffee Ground Emesis #Melena #Acute Blood Loss Anemia -confirmed with daughter over phone, patient having coffee ground emesis and melena -Hgb above baseline, perhaps 2/2 dehydration vs. recovering blood counts Plan: -GI consult, appreciate recs -continue octreotide, protonix drip given concern for variceal bleed, upper GI bleed -check Hgb at 15:00 -check iron studies -continue coreg, hold torsemide #Elevated Lactic Acid -in setting of cirrhosis -above baseline, concern of superimposed shock state as LA is still elevated above baseline despite getting fluids Plan: -give additional fluids, recheck LA after fluids -recheck Hgb at 15:00 -hold losartan #Hypercalcemia #Hyperparathyroidism -does have hyperparathyroidism that appears controlled normally -perhaps 2/2 volume depletion vs. less likely malignancy related Plan: -give NSS as first line, check ionized calcium tomorrow morning -continue ciacalcet #CAD #HFpEF -appears euvolemic to dry #COPD -not in exacerbation #Lung Nodule -f/u outpatient #DM Type 2 -SSI ordered -hold PO meds I spent a total of 80 minutes in direct patient care, including [id number] time with the patient and/or family, reviewing medical records, ordering and reviewing diagnostic tests, and coordinating care with other healthcare providers. This time includes: history taking, physical examination, medical decision making, counseling, ECG interpretation, imaging interpretation, lab interpretation, orders, and education, excluding time spent in the performance of separately billed services. History of Present Illness Chief Complaint: -fall, head strike, dark stools, hematemesis Primary Care Provider: Alexy Al MD 84 yo female with pmhx of decompensated alcoholic cirrhosis c/b varices (large esophageal/gastric), DM II, diabetic peripheral angiopathy, hyperlipidemia, hyperparathyroidism, lung nodules, heart failure with preserved ejection fraction, aortic ectasia, superior mesenteric artery stenosis s/p stent in Apr 2022 at [facility] [place] and revascularized in Apr 2023, superior mesenteric artery stenosis, hypertension, history of CVA, history of CAD, GERD, history of pericolonic abscess, history of hepatic cirrhosis, osteoporosis, visual field loss poststroke who presents for fall, head strike, dark stools and coffee ground emesis. Has a long history of admissions, most recently for confusion and CAP. In the ED, GI consulted, started on protonix drip and octreotide, blood counts stable, give fluids, admitted to medicine for further workup. Patient seen and examined at bedside. Patient orriented to self and hospital, but not specific location, or time. Very confused, pulling at lines in room, trying to crawl out of bed. Not able to endorse ROS or history. Keeps repeating about needing to pee and get out of bed. Per daughter, patient fell several times over night and hit head. Has been throwing up and having coffee ground emesis/dark stools. Has been more altered past few days as well. Discussed code status with daughter, and confirmed with patient (who did not have capacity), patient is DNRDNI at this time. Allergies Allergy/AdvReac Type Severity Reaction Status Date / Time nickel Allergy "Cheap Verified 06/05/23 08:36 metal = rash" Home Medications Medication Instructions Recorded Confirmed Type atorvastatin 40 mg tablet 40 mg PO .AFTERNOON 06/01/23 02/21/25 History biotin 1 mg capsule 1 mg PO DAILY 06/01/23 02/21/25 History carvedilol 3.125 mg tablet 6.25 mg PO BID 06/01/23 02/21/25 History cinacalcet 30 mg tablet (Sensipar) 30 mg PO DAILY 06/01/23 02/21/25 History insulin human U-100 NPH-regulr 0 unit subcut UD 06/01/23 02/21/25 History 70-30 mix 100 unit/mL subcutaneous susp (Novolin 70/30 U-100 Insulin) losartan 25 mg tablet 25 mg PO DAILY 06/01/23 02/21/25 History melatonin 10 mg tablet 10 mg PO HS Insomnia 06/01/23 02/21/25 History metformin 1,000 mg tablet 500 mg PO BID 06/01/23 02/21/25 History torsemide 20 mg tablet 20 mg PO DAILY 06/01/23 02/21/25 History vitamin B complex 1 cap PO DAILY 06/01/23 02/21/25 History magnesium oxide 400 mg PO BID #60 caps 06/08/23 02/21/25 Rx omeprazole 40 mg capsule,delayed 40 mg PO BID 02/21/25 02/21/25 History release Past Med/Surg History Problem List (Updated 02/21/25 @ 11:54 by Peter Humphreys MD) Metabolic encephalopathy Acute hypoxemic respiratory failure (Acute) Episode of confusion COPD with emphysema (Acute) Multiple pulmonary nodules Pulmonary mass AMS (altered mental status) (Acute) JANELL (acute kidney injury) (Acute) JANELL (acute kidney injury) (Acute) Hypomagnesemia Melena Hematemesis (Acute) Elevated lactic acid level (Acute) Renal insufficiency (Acute) Esophageal varices (Acute) Acute lower GI bleeding (Acute) Acute GI bleeding (Acute) Acute blood loss anemia (Acute) Hepatic cirrhosis (Acute) History of ischemic colitis (Acute) GI bleed (Acute) pt unaware Ischemic colitis Leukocytosis HTN (hypertension) Hyperparathyroidism Pulmonary nodule Ovarian cyst Anemia Chronic heart failure with preserved ejection fraction (HFpEF) Colitis Leg edema Hypoxia Abdominal pain Sepsis Ovarian mass, right (Acute) Vomiting (Acute) Abnormal EKG (Acute) Elevated troponin I level (Acute) Abdominal pain, acute, right lower quadrant (Acute) Ileocolitis (Acute) Microcytic anemia Idiopathic polyneuropathy Right homonymous hemianopsia Muscle weakness of right arm S/P hysterectomy S/P tonsillectomy S/P appendectomy Mitral stenosis Elevated troponin (Acute) Bilateral lower extremity edema (Acute) CHF (congestive heart failure) (Acute) GERD (gastroesophageal reflux disease) (Chronic) Osteoporosis (Chronic) Hip pain Hyperparathyroidism (Chronic) Nontoxic multinodular goiter (Chronic) Vitamin D deficiency (Chronic) DM type 2 (diabetes mellitus, type 2) (Chronic) Lumbago Other and unspecified hyperlipidemia Type 2 diabetes mellitus without complications Essential (primary) hypertension Coronary atherosclerosis of [place] coronary vessel Medical History Encounter for pre-operative examination Hepatic cirrhosis History of ischemic colitis GI bleed pt unaware CHF (congestive heart failure) Anemia Osteoporosis GERD (gastroesophageal reflux disease) Hyperparathyroidism Hypertension Poor historian Abnormal EKG pt unaware Acute respiratory failure CVA (cerebral vascular accident) Jan 2022 per pt > has some right hand weakness > does not follow with neuro Weakness of right upper extremity s/p CVA, just on occasion Lumbago Other and unspecified hyperlipidemia Type 2 diabetes mellitus without complications Essential (primary) hypertension Coronary atherosclerosis of [place] coronary vessel Acute heart failure with preserved ejection fraction (HFpEF) pt unaware Acute respiratory failure with hypoxia pt unaware Surgical History History of colonoscopy History of endovascular stent graft for abdominal aortic aneurysm unsure if this is exactly what she has, but had done in Apr 2022 at [place] she thinks it was for AAA S/P tonsillectomy S/P hysterectomy S/P appendectomy History of heart artery stent placed 1994 S/P cholecystectomy History of cataract surgery bilat Family History Mother , age 70 of a stroke and congestive heart failure Stroke CHF (congestive heart failure) Father , in his 70s of an MS Myocardial infarction Social History Smoking Status: Never smoker packs per day: 4; Second Hand Exposure: No; Do You Dip or Chew Tobacco: No; Hx Alcohol Use: Yes Alcohol type: beer Alcohol Intake Frequency Comment: up to 1 beer to her day. Hx Substance Use: No Preferred Language: Qatari Communication Ability: Effective [employer] Required: No Beliefs That Will Affect Care: None marital status: Current Living Situation: Spouse Current Living Situation Comment: Home with current occupational status: retired current occupation: Multiple different jobs retiring in her 50s. Feels Safe at Home: Yes Assistive Devices: Glasses and Walker Review of Systems Review of Systems: -unable to endorse due to mental status Physical Exam Physical Exam: Gen: A&O 1.5 agitated HEENT: NCAT, EOMI, not icteric. External ears normal. No rhinorrhea. Moist mucous membranes. Neck: Supple, full range of motion, no observable masses, No meningeal sign. Lungs: No Respiratory distress. CV: RRR, no edema. Abdomen: Soft, nondistended, No rebound tenderness. MSK: No joint swelling, no redness. Skin: No rashes, petechiae, lesions. Normal color per patient. Neuro: Normal Gait, Grossly intact. Psych: very confused, pulling at lines Results & Data Results & Data Vital Signs (Past 12 Hours) Vital Signs Temp Pulse Resp BP Pulse Ox O2 Del Method 02/21/25 09:35 83 02/21/25 08:51 36.7 C 81 19 154/99 H 99 Room Air Laboratory Results -personally reviewed, elevated calcium of 11.4, low chloride suggestive of volume depletion, lactic acid ordered by this provider elevated higher than baseline indicative of shock pathology on top of cirrhosis, creatinine around baseline, Hgb above baseline Medications Administered Pantoprazole Sodium 40 mg/ (Dextrose) 100 mls @ 20 mls/hr IV Q5H DESIREE Stop: 03/23/25 09:14 Last Admin: 02/21/25 09:58 Dose: 8 mg/hr, 20 mls/hr Documented By: CAP Octreotide Acetate 500 mcg/ (Sodium Chloride) 100.5 mls @ 10.05 mls/hr IV .Q10H DESIREE Stop: 03/23/25 08:59 Last Admin: 02/21/25 10:02 Dose: 50 mcg/hr, 10.1 mls/hr Documented By: CAP Sodium Chloride (Nss) 1,000 mls @ 80 mls/hr IV .[id number] DESIREE Stop: 02/22/25 00:00 Last Admin: 02/21/25 11:16 Dose: 80 mls/hr Documented By: CAP Code Status & VTE Plan VTE Prophylaxis Plan VTE Prophylaxis will be ordered: Yes
[2025-02-21 11:25] LABS: Iron 179.0 mcg/dl (35-150); Total Iron Binding Cap Calc 304.0 mcg/dl (250-450); Transferrin 236.0 mg/dl (200-360); Transferrin (FE) Percent Satur 59.0 % (15-50)
[2025-02-21 11:37] LABS: Thyroid Stimulating Hormone 2.596 uIu/ml (0.300-4.500)
--- NOTE | 2025-02-21 11:42 | Communication Note ---
Evaluated patient at bedside at request of RN. Patient agitated, threatening to get out of bed, pulling at lines. Patient showing signs of hyperactive delirium and is a possible harm to self. Will trial low dose IV haldol (0.5mg) x1 to attempt to reduce harm to self. Discussed with RN. Date of Service: February 21, 2025
[2025-02-21 11:43] LABS: Ferritin 40.2 ng/ml (8-388)
[2025-02-21] MEDS: HALOPERIDOL LACTATE 5 MG/ML 1 ML VIAL IV STA (11:58)
[2025-02-21] MEDS: SODIUM CHLORIDE 0.9% 500 ML IV ONE (12:00)
--- NOTE | 2025-02-21 12:14 | Gastrointestinal Consultation ---
Date of Consultation February 21, 2025 Assessment & Plan (1) Melena: History of cirrhosis and esophageal varices. Last EGD in 06/2023 showed grade 1 varices without bleeding. No witnessed melena or hematemesis since presentation to [facility]. Normal H/H of 12.7/38.1. She is currently on an IV PPI gtt and IV Octreotide drip. She is hemodynamically stable and is not currently presenting like a variceal bleed. We will continue to monitor her H/H and continue to monitor for overt GI bleeding. Will follow-up with patient this afternoon, then please refer to Dr. Jurado's attending physician statement for updates/additions to the plan of care. Supervising Physician Co-Signing Physician Notes I saw and examined this patient with our nurse practitioner and agree with her assessment and plan. No overt bleeding witnessed or since admission. Stool was Hemoccult positive on testing. Doubt significant GI bleed in light of relatively normal hemoglobin and no significant GI symptoms at the present time. Agree with empiric therapy as ordered. Other issues include exacerbation of COPD agree with optimizing her respiratory status. May be an element of hepatic encephalopathy in light of elevated ammonia level and confusion. Would empirically start rifaximin to see if that improves her mental status. Continue to monitor hemoglobin hematocrit. Will consider get endoscopy once respiratory status and mental status improves. History of Present Illness Reason for Consultation: "r/o variceal bleed" History of Present Illness Patient is an 84 yo female with PMH of cirrhosis with esophageal varices. She was brought to [facility] ED due to a fall. During the course of her evaluation, it was mentioned that she may have had dark stools and coffee ground emesis after a fall. Patient is very confused and is unable to provide me with details of this event. She takes Omeprazole 40 mg BID at home. In the ED, she was started on a Protonix drip and octreotide, she was noted to be hemodynamically stable, given fluids, and admitted to medicine for further workup. H/H 12.7/38.1. No GI bleeding since presentation to the hospital. BN 46, Cr 1.89--which does seem to be around her baseline. Last EGD by her GI group ([facility]) in June 2023: Impression: - Grade I esophageal varices. No stigmata of recent bleeding. - Esophageal ulcers with no bleeding and no stigmata of recent bleeding in area of previous esophageal endoscopic banding in distal esophagus. - Type 1 gastroesophageal varices (GOV1, esophageal varices which extend along the lesser curvature), without bleeding. - Normal examined duodenum. - No specimens collected. Abdominal CT in the ED: IMPRESSION: 1. No acute findings. 2. Stable 3 cm left lower lobe lung mass. 3. Otherwise as described. She is currently hypertensive with a BP of 154/99. HR 83. RR 19. She is saturating 99% on RA. No bowel movements since presentation to [facility]. Ammonia 78. Allergies Allergy/AdvReac Type Severity Reaction Status Date / Time nickel Allergy "Cheap Verified 06/05/23 08:36 metal = rash" Home Medications Medication Instructions Recorded Confirmed Type atorvastatin 40 mg tablet 40 mg PO .AFTERNOON 06/01/23 02/21/25 History biotin 1 mg capsule 1 mg PO DAILY 06/01/23 02/21/25 History carvedilol 3.125 mg tablet 6.25 mg PO BID 06/01/23 02/21/25 History cinacalcet 30 mg tablet (Sensipar) 30 mg PO DAILY 06/01/23 02/21/25 History insulin human U-100 NPH-regulr 0 unit subcut UD 06/01/23 02/21/25 History 70-30 mix 100 unit/mL subcutaneous susp (Novolin 70/30 U-100 Insulin) losartan 25 mg tablet 25 mg PO DAILY 06/01/23 02/21/25 History melatonin 10 mg tablet 10 mg PO HS Insomnia 06/01/23 02/21/25 History metformin 1,000 mg tablet 500 mg PO BID 06/01/23 02/21/25 History torsemide 20 mg tablet 20 mg PO DAILY 06/01/23 02/21/25 History vitamin B complex 1 cap PO DAILY 06/01/23 02/21/25 History magnesium oxide 400 mg PO BID #60 caps 06/08/23 02/21/25 Rx omeprazole 40 mg capsule,delayed 40 mg PO BID 02/21/25 02/21/25 History release Patient History Medical History Encounter for pre-operative examination CHF (congestive heart failure) Anemia Osteoporosis GERD (gastroesophageal reflux disease) Hyperparathyroidism Hypertension Poor historian Abnormal EKG pt unaware Acute respiratory failure CVA (cerebral vascular accident) Jan 2022 per pt > has some right hand weakness > does not follow with neuro Weakness of right upper extremity s/p CVA, just on occasion Acute heart failure with preserved ejection fraction (HFpEF) pt unaware Acute respiratory failure with hypoxia pt unaware Surgical History History of colonoscopy History of endovascular stent graft for abdominal aortic aneurysm unsure if this is exactly what she has, but had done in Apr 2022 at [facility] she thinks it was for AAA S/P tonsillectomy S/P hysterectomy S/P appendectomy History of heart artery stent placed 1994 S/P cholecystectomy History of cataract surgery bilat Family History Mother , age 70 of a stroke and congestive heart failure Stroke CHF (congestive heart failure) Father , in his 70s of an [place] Myocardial infarction Social History Smoking Status: Former smoker Tobacco Type: Cigarettes packs per day: 4; Second Hand Exposure: No; Do You Dip or Chew Tobacco: No; Hx Alcohol Use: Yes Alcohol type: beer Alcohol Intake Frequency Comment: up to 1 beer to her day. Hx Substance Use: No Preferred Language: Kinyarwanda Communication Ability: Effective Computer Tape Librarian Required: No Beliefs That Will Affect Care: None marital status: Current Living Situation: Spouse Current Living Situation Comment: Home with current occupational status: retired current occupation: Multiple different jobs retiring in her 50s. Other Information That Helps Us Care for You: No Feels Safe at Home: Yes Safety Concerns: Feels Safe At This Time Assistive Devices: Glasses and Walker Results & Data Vital Signs (Past 12 Hours) Vital Signs Temp Pulse Resp BP Pulse Ox O2 Del Method 02/21/25 09:35 83 02/21/25 08:51 36.7 C 81 19 154/99 H 99 Room Air Laboratory Results Laboratory Results - last 48 hr 02/21/25 02/21/25 02/21/25 09:08 09:12 09:53 WBC 4.97 RBC 4.09 L Hgb 12.7 POC Hgb 13.3 Hct 38.1 POC Hct 39 MCV 93.2 MCH 31.1 MCHC 33.3 RDW Std Deviation 54.2 H RDW Coeff of Vanita 15.7 H Plt Count 86 L MPV 12.5 H Immature Gran % (Auto) 0.2 Neut % (Auto) 68.9 Lymph % (Auto) 19.5 Otero % (Auto) 7.0 Eos % (Auto) 3.4 Baso % (Auto) 1.0 Neut # (Auto) 3.42 Lymph # (Auto) 0.97 L Otero # (Auto) 0.35 Eos # (Auto) 0.17 Baso # (Auto) 0.05 Immature Gran # (Auto) 0.01 PT 12.5 H INR 1.2 H APTT 26 PTT Ratio 1.0 VBG pH VBG pCO2 VBG pO2 VBG HCO3 VBG O2 Saturation VBG Base Excess POC Sodium 132 L Sodium 133 L POC Potassium 4.3 Potassium 4.6 POC Chloride 96 L Chloride 93 L Carbon Dioxide 27 POC Total CO2 27 Anion Gap 13 H POC Anion Gap 15.0 L POC BUN 45 H BUN 46 H Creatinine 1.89 H POC Creatinine 2.1 H Est Cr Clr Drug Dosing 19.9 eGFR 25.88 BUN/Creatinine Ratio 24.3 H Glucose 180 H POC Glucose POC Glucose (other) 180 H Lactate Calcium 11.4 H POC Ioniz Calcium Cony 1.17 Iron 179 H TIBC 304 Unsaturated IBC 125 L Transferrin 236 Transferrin % Sat 59 H Ferritin 40.2 Total Bilirubin 1.3 H AST 43 H ALT 24 Alkaline Phosphatase 66 Ammonia 78.0 H Total Protein 7.0 Albumin 3.4 Globulin 3.6 Albumin/Globulin Ratio 0.9 Vitamin B12 > 1500 H Procalcitonin 0.16 TSH 2.596 POC Stool Occult Blood Blood Type A Positive Antibody Screen NEGATIVE 02/21/25 02/21/25 02/21/25 10:24 11:21 12:22 WBC RBC Hgb POC Hgb Hct POC Hct MCV MCH MCHC RDW Std Deviation RDW Coeff of Vanita Plt Count MPV Immature Gran % (Auto) Neut % (Auto) Lymph % (Auto) Otero % (Auto) Eos % (Auto) Baso % (Auto) Neut # (Auto) Lymph # (Auto) Otero # (Auto) Eos # (Auto) Baso # (Auto) Immature Gran # (Auto) PT INR APTT PTT Ratio VBG pH 7.43 H VBG pCO2 40 VBG pO2 39 VBG HCO3 27 VBG O2 Saturation 66.3 VBG Base Excess 2.0 POC Sodium Sodium POC Potassium Potassium POC Chloride Chloride Carbon Dioxide POC Total CO2 Anion Gap POC Anion Gap POC BUN BUN Creatinine POC Creatinine Est Cr Clr Drug Dosing eGFR BUN/Creatinine Ratio Glucose POC Glucose POC Glucose (other) Lactate 4.7 H* Calcium POC Ioniz Calcium Cony Iron TIBC Unsaturated IBC Transferrin Transferrin % Sat Ferritin Total Bilirubin AST ALT Alkaline Phosphatase Ammonia Total Protein Albumin Globulin Albumin/Globulin Ratio Vitamin B12 Procalcitonin TSH POC Stool Occult Blood Positive A Blood Type Antibody Screen 02/21/25 12:26 WBC RBC Hgb POC Hgb Hct POC Hct MCV MCH MCHC RDW Std Deviation RDW Coeff of Vanita Plt Count MPV Immature Gran % (Auto) Neut % (Auto) Lymph % (Auto) Otero % (Auto) Eos % (Auto) Baso % (Auto) Neut # (Auto) Lymph # (Auto) Otero # (Auto) Eos # (Auto) Baso # (Auto) Immature Gran # (Auto) PT INR APTT PTT Ratio VBG pH VBG pCO2 VBG pO2 VBG HCO3 VBG O2 Saturation VBG Base Excess POC Sodium Sodium POC Potassium Potassium POC Chloride Chloride Carbon Dioxide POC Total CO2 Anion Gap POC Anion Gap POC BUN BUN Creatinine POC Creatinine Est Cr Clr Drug Dosing eGFR BUN/Creatinine Ratio Glucose POC Glucose 214 H POC Glucose (other) Lactate Calcium POC Ioniz Calcium Cony Iron TIBC Unsaturated IBC Transferrin Transferrin % Sat Ferritin Total Bilirubin AST ALT Alkaline Phosphatase Ammonia Total Protein Albumin Globulin Albumin/Globulin Ratio Vitamin B12 Procalcitonin TSH POC Stool Occult Blood Blood Type Antibody Screen PG Care Time/CCT Total # of Minutes Spent Total Time Spent with Patient: Total time spent is greater than 50% in coordination of care (as documented) at patient's floor/unit and/or counseling patient: Coding Level of Care Code 43657 INT INP/OBS CARE 375MIN Diagnoses Melena K92.1
[2025-02-21] MEDS ORDERED: Nursing to Pharmacy Communication SCH (12:15)
[2025-02-21] MEDS: INSULIN ASPART PER UNIT CHARGE SC SCH ×2 (12:32→17:41)
[2025-02-21] MEDS ORDERED: ACETAMINOPHEN 325 MG TAB PO PRN (12:42)
[2025-02-21] MEDS ORDERED: ONDANSETRON INJ 2 MG/ML 2 ML VIAL IV PRN (12:42)
[2025-02-21] MEDS ORDERED: POLYETHYLENE (MIRALAX) 17 GM PACK PO PRN (12:42)
[2025-02-21] MEDS ORDERED: INSULIN ASPART PER UNIT CHARGE SC SCH ×2 (13:00→18:00)
--- NOTE | 2025-02-21 13:40 | Electrocardiogram Report ---
Test Reason : Blood Pressure : */* mmHG Vent. Rate : 80 BPM Atrial Rate : 80 BPM P-R Int : 198 ms QRS Dur : 82 ms QT Int : 404 ms P-R-T Axes : 43 33 75 degrees QTcB Int : 465 ms Normal sinus rhythm Anteroseptal infarct Abnormal ECG When compared with ECG of 12-Jan-2025 11:50, Premature ventricular complexes are no longer Present Confirmed by Pierre Bearden ([id number]) on 02/21/2025 1:40:17 PM Referred By: Confirmed By: Pierre Bearden
[2025-02-21 14:46] LABS: Hematocrit (blood only) 40.0 % (37.0-47.0); Hemoglobin 13.3 g/dl (12.0-16.0); Mean Corpuscular Hemoglobin 31.0 pg (25.0-34.0); Mean Corpuscular Volume 93.2 fL (80.0-100.0); Platelet Count 87 K/uL (130-400); RDW Standard Deviation 53.3 fL (36.4-46.3); Red Blood Count 4.29 M/uL (4.20-5.40); White Blood Count 4.68 K/ul (4.8-10.8)
[2025-02-21] MEDS: ATORVASTATIN 40 MG TAB PO SCH (14:47)
[2025-02-21] MEDS ORDERED: ALBUT/IPRATROP 3MG/0.5MG NEB 3 ML VIAL NEB PRN (15:50)
[2025-02-21] MEDS ORDERED: MELATONIN 3 MG TAB PO SCH (21:00)
[2025-02-21] MEDS: LACTULOSE SYRUP 20 GM/30 ML UDC PO SCH (21:04)
[2025-02-21] MEDS: MELATONIN 3 MG TAB PO SCH (21:05)
[2025-02-22 02:28] VITALS: RESP 18
[2025-02-22] MEDS: FOLIC ACID 1 MG TAB PO SCH (08:31)
[2025-02-22] MEDS: THIAMINE HCL 100 MG TAB PO SCH (08:31)
[2025-02-22] MEDS: CINACALCET HCL 30 MG TAB PO SCH (08:32)
[2025-02-22 09:22] LABS: Hematocrit (blood only) 31.2 % (37.0-47.0); Hemoglobin 10.6 g/dl (12.0-16.0); Mean Corpuscular Hemoglobin 30.8 pg (25.0-34.0); Mean Corpuscular Volume 90.7 fL (80.0-100.0); Platelet Count 78 K/uL (130-400); RDW Standard Deviation 51.8 fL (36.4-46.3); Red Blood Count 3.44 M/uL (4.20-5.40); White Blood Count 7.44 K/ul (4.8-10.8)
[2025-02-22 09:39] LABS: Alanine Aminotransferase 24.0 U/L (7-52); Albumin Globulin Ratio 0.9 (0.9-2); Albumin Level 2.8 gm/dl (3.4-5.0); Alkaline Phosphatase 51.0 U/L (34-104); Anion Gap 7.0 (3-11); Bilirubin,Total 0.9 mg/dl (0.2-1.0); Blood Urea Nitrogen 45.0 mg/dl (6-23); Calcium 8.9 mg/dl (8.6-10.3); Carbon Dioxide 26.0 mmol/L (21-32); Chloride 102.0 mmol/L (98-107); Creatinine Clr Calc Pharmacy 21.4 ml/min; Globulin 3.1 gm/dl (2.5-4.0); Glucose 194.0 mg/dl (70-99(Fasting)); Potassium 3.5 mmol/L (3.5-5.1); Sodium 135.0 mmol/L (136-145); Total Protein 5.9 gm/dl (6.0-8.3)
--- NOTE | 2025-02-22 10:48 | Hospitalist Progress Note ---
Date of Service February 22, 2025 Assessment & Plan (1) COPD with emphysema: (2) Pulmonary mass: (3) Metabolic encephalopathy: (4) Melena: (5) Esophageal varices: (6) GERD (gastroesophageal reflux disease): (7) Acute blood loss anemia: Plan This is a 84 yo female with pmhx of decompensated alcoholic cirrhosis c/b varices (large esophageal/gastric), DM II, diabetic peripheral angiopathy, hyperlipidemia, hyperparathyroidism, lung nodules, heart failure with preserved ejection fraction, aortic ectasia, superior mesenteric artery stenosis s/p stent in Apr 2022 at [facility] and revascularized in Apr 2023, hypertension, history of CVA, history of CAD, GERD, history of hepatic cirrhosis, osteoporosis, visual field loss poststroke who presents for fall, head strike, dark stools and coffee ground emesis. #Hepatic Encephalopathy #Decompensated Alcoholic Cirrhosis #Hyperactive Delirium -As evidenced by agitation, fidgeting, high ammonia level, known decompensated cirrhosis -Delicate situation as patient also has possible variceal bleed -Received haldol 0.5mg IV x1 given to avoid harm to self overnight, calm and cooperative this AM -thiamine, folic acid ordered, B12 elevated - can hold B complex vitamin for now, TSH wnl -delirium precautions, avoid anticholinergic medications -start lactulose tid once able to take PO pending EGD #R/o Variceal Bleed #Esophageal/Gastric Varices #Coffee Ground Emesis #Melena #Acute Blood Loss Anemia -confirmed with daughter over phone, patient having coffee ground emesis and melena at home -Hgb 10.6 after IV fluids -2 small bowel movements documented overnight, unsure if melanotic per chart review -GI consulted, appreciate recs -continue octreotide, protonix drip given concern for variceal bleed, upper GI bleed -continue coreg, hold torsemide #Elevated Lactic Acid -> resolved -in setting of cirrhosis -above baseline, concern of superimposed shock state as LA is still elevated above baseline despite getting fluids #Hypercalcemia -> resovled #Hyperparathyroidism -does have hyperparathyroidism that appears controlled normally -perhaps 2/2 volume depletion vs. less likely malignancy related - Ca back to normal range following IVF, ionized Ca normal -continue cinacalcet #CAD #HFpEF -appears euvolemic to dry #COPD -not in exacerbation #Lung Nodule -F/u outpatient #DM Type 2 -SSI ordered -hold PO meds Care coordinated with Dr. Parrish. I spent a total of 50 minutes coordinating, documenting, and providing care for this patient excluding time spent in the performance of separately billed services or time spent by another provider/QHP. Admission and Anticipated Discharge Date Admission Date: February 21, 2025 Supervising Physician Co-Signing Physician Notes Attending addendum: Patient was seen and examined in telemetry unit She has been stable but weak Complains of right elbow pain likely has right elbow bursa with with minimal inflammation Denies any other significant symptoms Denies any hematemesis and not sure about any melena On examination Lying in bed without any acute distress Remains hemodynamically stable Chestbibasilar crackles minimal HeartS1-S2, regular Abdomenbenign, soft, nontender and bowel sound present Extremitiesno edema CNSalert, awake and oriented x 3. Heart admission labs, imaging studies and medications reviewed Presented with hepatic and cephalopathy with history of alcoholic cirrhosis Noted to have melena but no more evidence of that in the hospital Also history of esophageal varices grade 1 Has been on intravenous Protonix and octreotide and GI evaluation has been taken Her other significant medical conditions remain stable as above Agree with assessment and plan as outlined above by Regina Martinez PA-C and take the full responsibility of care in the hospital Total time taken to take history, physical examination, labs and imaging studies revision and review of medications took about [address] Kallie Parrish Subjective Seen and examined in 237 bed 1. Mentation seems to be slightly improved since admission but still with limited insight, not answering all questions appropriately. Denies any nausea or vomiting. No abdominal pain. Endorses bowel movement this morning but unsure if there is any melena. Asking when she can eat. No fever, chills, chest pain, shortness of breath, dysuria. Review of Systems Review of Systems: Limited ROS 2/2 AMS, see above Physical Exam Physical Exam: Gen: WD/WN, NAD, resting in bed, A&Ox2, not to situation HEENT: Normocephalic, atraumatic, dry mucous membranes of oropharynx Lung: Clear to Auscultation bilaterally, no wheezes/rales/rhonchi Heart: Regular rate, regular rhythm Abdomen: Soft, NT, ND +BS x 4 Extremities: no edema, R elbow ecchymosis Skin: Warm, no rash Results & Data Results & Data Vital Signs (Past 12 Hours) Vital Signs Temp Pulse Resp BP Pulse Ox O2 Del Method 02/22/25 07:28 36.6 C 74 18 115/60 96 Room Air 02/22/25 02:28 36.6 C 75 18 132/74 96 Room Air Laboratory Results Short CBC 02/21/25 02/22/25 Range/Units 14:19 08:58 WBC 4.68 L 7.44 (4.8-10.8) K/ul Hgb 13.3 10.6 L (12.0-16.0) g/dl Hct 40.0 31.2 L (37.0-47.0) % Plt Count 87 L 78 L (130-400) K/uL BMP 02/22/25 08:58 Sodium 135 L Potassium 3.5 D Chloride 102 Carbon Dioxide 26 BUN 45 H Creatinine 1.76 H Glucose 194 H Calcium 8.9 D Liver Function 02/22/25 Range/Units 08:58 Total Bilirubin 0.9 (0.2-1.0) mg/dl AST 35 (13-39) U/L ALT 24 (7-52) U/L Alkaline Phosphatase 51 (34-104) U/L Albumin 2.8 L (3.4-5.0) gm/dl Diagnostic Findings Head CT 02/21/25 08:49 CT SCAN OF THE BRAIN WITHOUT IV CONTRAST CLINICAL HISTORY: Fall. Head injury. COMPARISON STUDY: Head CT and MRI of the brain January 12, 2025. TECHNIQUE: Unenhanced axial CT scan of the brain was performed from the vertex to the skull base. A dose lowering technique was utilized adhering to the principles of ALARA. FINDINGS: No acute intracranial hemorrhage, midline shift or mass effect is present. Ventricular system is unremarkable. White matter hypodensities are unchanged and favor small vessel disease. Old foci of encephalomalacia within the left occipital and parietal lobes are unchanged. Prominence of the extra- axial spaces is unchanged and due to atrophy. No extra-axial fluid collections are present. There are no calvarial fractures. IMPRESSION: 1. No acute intracranial findings. No change in appearance of the brain. 2. No calvarial fractures. ACT 112: Negative or not required by law. Electronically signed by: Karson Goddard M.D. 02/21/2025 9:51 AM Abdomen/Pelvis CT 02/21/25 09:[address] WITHOUT CONTRAST CT DOSE: 1716 HISTORY: ab pain, gi bleeding TECHNIQUE: Multiaxial CT images of the abdomen and pelvis were performed without contrast. A dose lowering technique was utilized adhering to the principles of ALARA. COMPARISON STUDY: 01/12/2025 FINDINGS: There is a stable 3 cm mass at the left lower lung lobe. There are diffuse coronary artery calcifications. ABDOMEN: Stable calcification anterior right abdominal wall subcutaneous tissues. Gallbladder is surgically absent. Stable nodular liver consistent with cirrhosis. No ascites seen. Spleen, pancreas, and right adrenal gland have an unremarkable non-IV contrasted appearance. Left adrenal gland is not well seen. There is grossly stable prominence of the left adrenal gland. The kidneys show no hydronephrosis. Stable small calculus lower right kidney. There are scattered atherosclerotic calcifications. Stable small aneurysm at the left posterior lateral aspect of the distal aorta measuring 1.8 x 0.9 cm, stable. Pelvis: Stable 11 cm cyst at the right pelvis. Urinary bladder is mildly distended. There is moderate retained stool. There is sigmoid diverticulosis. No acute diverticulitis. No bowel inflammation or obstruction. No free fluid or free air. No grossly enlarged adenopathy. Osseous structures: There is osteopenia. There are severe degenerative changes at the lumbar spine. No acute fracture seen at the visualized osseous st ructures. IMPRESSION: 1. No acute findings. 2. Stable 3 cm left lower lobe lung mass. 3. Otherwise as described. ACT 112: Negative or not required by law. The above report was generated using voice recognition software. It may contain grammatical, syntax or spelling errors. Electronically signed by: Morro Valentin M.D. 02/21/2025 10:[address] 02/21/25 09:12 CT lumbar spine wo con CLINICAL HISTORY: fall, back pain COMPARISON STUDY: 01/12/2025 FINDINGS: There is osteopenia. There is severe diffuse degenerative disc disease. There is stable mild height loss at the L1 vertebral body. Stable minimal height loss at the superior endplate of L2. Stable minimal height loss at the superior endplate of L4. No interval fracture seen at the lumbar spine. There is stable grade 1 anterolisthesis of L2 on 3. There is moderate left neural foraminal narrowing at L4-5 and L5-S1. Stable minimal scoliosis. There is moderate central canal narrowing at L3-4 and L4-5. IMPRESSION: No acute lumbar spine fracture seen. Otherwise as described. ACT 112: Negative or not required by law. Electronically signed by: Morro Valentin M.D. 02/21/2025 9:52 AM Chest X-Ray 02/21/25 10:12 XR chest 1V portable CLINICAL HISTORY: hypoxia COMPARISON STUDY: 01/12/2025 FINDINGS: There is stable mild cardiomegaly with mild pulmonary vascular congestion. Inspiration is shallow. There is increased reticular opacity in the lung bases. No pleural effusion or pneumothorax. IMPRESSION: 1. Mild CHF. 2. Pneumonia versus atelectasis in the lung bases. ACT 112: Negative or not required by law. Electronically signed by: Morro Valentin M.D. 02/21/2025 10:34 AM (5) Esophageal varices Esophageal varices type: unspecified type
[2025-02-22] MEDS: LORazepam 0.5 MG TAB SL STA (20:11)
[2025-02-22 22:36] VITALS: BP 154/70; PULSE 82; TEMP 97.9; O2SAT 95
--- NOTE | 2025-02-23 07:16 | Communication Note ---
Date of Service: February 23, 2025 Was paged around 7pm Feb 22, 2025 that patient wanted to leave. Seemed somewhat restless and wanted to go home.. in the room. Advised to stay in the hospital. Gave im zyprexa 2.5mg and 10-15minutes later Ativan 0.5mg SL. Didn't received any more meds and four hours later Around midnight patient wanted to go home adamantly and wants to take her home and signed out AMA.
== END 2025-02-23 00:42 | disposition left against medical advice (07) | DRG 442 ==
LOC: ED 08:37 → SUATTDRO 10:37 → EDINP 10:37 → 2S 20:16

== ENCOUNTER 2025-02-23 14:03 | Inpatient (IN) ==
--- NOTE | 2025-02-23 15:45 | XRay Report ---
HISTORY: Trauma due to fall TECHNIQUE: Portable AP radiograph of the chest. COMPARISON: Chest radiograph dated 02/21/2025. FINDINGS: Small focal opacity at the left lung base suspicious for pneumonia. No focal right lung opacity. No pneumothorax or effusion. Normal heart size. Left-sided aortic arch. Midline trachea. Degenerative changes of the shoulders and spine. IMPRESSION: Small focal left lower lung opacity suspicious for pneumonia. Follow-up PA and lateral chest radiographs are recommended in 6 to 8 weeks to ensure resolution. Electronically signed by Joel Pennington 02-23-2025 3:45 PM
--- NOTE | 2025-02-23 15:51 | XRay Report ---
HISTORY: Trauma due to fall. TECHNIQUE: Left humerus, 3 views. COMPARISON: None. FINDINGS: Acute displaced and impacted fracture of the left proximal humerus centered at the humeral neck. Glenohumeral alignment appears preserved. Mild osteoarthritis of the glenohumeral and acromioclavicular joints. No visible pneumothorax. Patchy left basilar opacity could represent pneumonia. IMPRESSION: * Acute mildly displaced and impacted left proximal humerus fracture centered at the surgical neck. * Mild osteoarthritis of the glenohumeral and acromioclavicular joints. * Mild patchy left basilar opacity could represent atelectasis or pneumonia. Electronically signed by Joel Pennington 02-23-2025 3:46 PM
--- NOTE | 2025-02-23 15:51 | XRay Report ---
HISTORY: Trauma due to fall. TECHNIQUE: Left shoulder, 3 views. COMPARISON: None. FINDINGS: Mildly displaced and impacted fracture of the left proximal humerus centered at the surgical neck. Mild glenohumeral and acromioclavicular joint osteoarthritis. Glenohumeral alignment appears maintained. 3.3 cm masslike opacity at the left lung base requires further evaluation with chest CT. No visible pneumothorax. IMPRESSION: * 3.3 cm masslike opacity at the left lung base. Further evaluation is recommended with contrast-enhanced CT of the chest. * Acute mildly displaced and impacted fractureinvolving the left proximal humerus centered at the surgical neck. Electronically signed by Joel Pennington 02-23-2025 3:49 PM
[2025-02-23 16:15] LABS: Base Excess VBG 0.6 mEq/L; HCO3 VBG 25 mmol/L; Oxygen Saturation VBG < 60.0 %; PCO2 VBG 36 mmHg (38-50); PO2 VBG 23 mmHg; pH VBG 7.44 (7.36-7.41)
[2025-02-23 16:22] LABS: Hematocrit (blood only) 32.4 % (37.0-47.0); Hemoglobin 10.7 g/dl (12.0-16.0); Immature Granulocytes # (auto) 0.01 K/uL (0.01-0.20); Immature Granulocytes % (auto) 0.2 %; Mean Corpuscular Hemoglobin 31.1 pg (25.0-34.0); Mean Corpuscular Volume 94.2 fL (80.0-100.0); Platelet Count 76 K/uL (130-400); RDW Standard Deviation 54.4 fL (36.4-46.3); Red Blood Count 3.44 M/uL (4.20-5.40); White Blood Count 6.18 K/ul (4.8-10.8)
[2025-02-23 16:41] LABS: Alanine Aminotransferase 28.0 U/L (7-52); Albumin Level 3.1 gm/dl (3.4-5.0); Alkaline Phosphatase 55.0 U/L (34-104); Anion Gap 12.0 (3-11); Bilirubin,Total 1.6 mg/dl (0.2-1.0); Blood Urea Nitrogen 43.0 mg/dl (6-23); Calcium 8.7 mg/dl (8.6-10.3); Carbon Dioxide 24.0 mmol/L (21-32); Chloride 101.0 mmol/L (98-107); Creatine Kinase 268.0 U/L (26-192); Creatinine Clr Calc Pharmacy 17.6 ml/min; Glucose 213.0 mg/dl (70-99(Fasting)); Lipase 29.0 U/L (11-82); Magnesium 1.8 mg/dl (1.7-2.4); Potassium 3.6 mmol/L (3.5-5.1); Sodium 137.0 mmol/L (136-145); Total Protein 6.1 gm/dl (6.0-8.3)
[2025-02-23 16:54] LABS: INR 1.3 (0.9-1.1); Partial Thromboplastin Time 26 Seconds (21-31); Prothrombin Time 13.9 Seconds (9.0-12.0)
--- NOTE | 2025-02-23 17:30 | CT Scan Report ---
Exam: CT head/brain without contrast: Reason for exam: Fall Previous studies: CT abdomen 1010 at 2024 FINDINGS: Marked diffuse atrophy again seen. Deep white matter lucency consistent with chronic ischemic angiopathy again seen. Area of encephalomalacia consistent with the left parietal/occipital infarct is noted. No acute intracranial mass effect, hemorrhage or edema is seen. Ventricular size is stable. No midline shift noted. Bony calvaria, shows no acute abnormality. Mastoids appear clear. IMPRESSION: 1. Negative for acute intracranial process and unenhanced head CT study. 2. Stable appearance of the left parietal/occipital infarct. 3. Stable appearance of the severe chronic atrophy and chronic ischemic angiopathy. Electronically signed by Morro Thomas 02-23-2025 5:30 PM
--- NOTE | 2025-02-23 17:35 | CT Scan Report ---
Exam: CT facial bones without contrast. Reason for exam: Fall. Previous studies: None FINDINGS: The sinuses remain clear. No air-fluid level is seen. Mandible appears intact without definite acute bony abnormalities. No acute trauma of the nasal bone is identified. Intra-abdominal contacts appear intact. No fracture of the zygoma is seen. IMPRESSION: Negative for acute bony trauma. Electronically signed by Morro Thomas 02-23-2025 5:34 PM
--- NOTE | 2025-02-23 17:39 | CT Scan Report ---
Exam: CT cervical spine without contrast. Reason for exam: Fall. Previous studies: 09/25/2022 FINDINGS: No acute fracture, dislocation or destructive bony process is evident. Marked abnormal narrowing of the C5-C6, C6-7 and C7-T1 intervertebral disc spaces with endplate sclerosis and spurring seen. Moderate degenerative facet arthropathy is seen. There is generalized osteoporosis. Extensive carotid artery calcifications present. IMPRESSION: 1. Negative for acute bony trauma. 2. 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 Electronically signed by Morro Thomas 02-23-2025 5:39 PM
--- NOTE | 2025-02-23 17:44 | CT Scan Report ---
Exam: CT abdomen/pelvis without contrast. Reason for exam: Trauma, patient fell. Previous studies: 02/21/2025. FINDINGS: Lobulated pleural-based mass in the left lower lobe suggesting malignant neoplasm is again seen. Lungs show COPD and chronic fibrotic changes as well. Liver is nodular in contour suggesting chronic hepatic cirrhosis. Clips from cholecystectomy are noted. Pancreas and spleen show no acute abnormality on unenhanced images. Extensive coronary calcifications are present. 6 mm right lower pole renal calculus without hydronephrosis. Left kidney unremarkable. Small segment of dissection suggested in the lower abdominal aorta without significant aneurysmal dilatation at this time. 11 cm cyst in the right hemipelvis are noted. Some gas is seen within the lumen of the urinary bladder suggesting a gas-forming infection or recent instrumentation. Diverticulosis is seen in the sigmoid colon. No evidence of bowel obstruction. Severe degenerative disease in the spine. IMPRESSION: 1. Negative for acute traumatic abnormality on unenhanced CT study abdomen/pelvis. 2. Probable chronic hepatic cirrhosis. 3. Right lower pole renal calculus without hydronephrosis. 4. Persistent large cystic lesion in the pelvis which would be better evaluated with ultrasound if indicated. 5. Diverticulosis. 6. Persistent left lower lobe pleural-based lung mass which may be malignant. Pulmonary medicine follow up recommended. Electronically signed by Morro Thomas 02-23-2025 5:44 PM
--- NOTE | 2025-02-23 18:24 | Emergency Department Note ---
History of Present Illness General Chief complaint: Trauma Stated complaint: L ARM INJURY DUE TO FALL Time Seen by Provider: 02/23/25 14:50 Source: patient and family (Son and at bedside) History of Present Illness Provider complaint: Fall Maximum Pain Intensity: 3 84-year-old female presents emergency department for fall. Patient has a history of COPD and hepatic cirrhosis. Patient reportedly fell after leaving the hospital yesterday. She is reporting pain in her left upper extremity. She reports no blood thinner usage. Patient reports no headache neck pain chest pain or abdominal pain. Home Medications Medication Instructions Recorded Confirmed Type atorvastatin 40 mg tablet 40 mg PO .AFTERNOON 06/01/23 02/23/25 History biotin 1 mg capsule 1 mg PO DAILY 06/01/23 02/23/25 History carvedilol 3.125 mg tablet 6.25 mg PO BID 06/01/23 02/23/25 History cinacalcet 30 mg tablet (Sensipar) 30 mg PO DAILY 06/01/23 02/23/25 History insulin human U-100 NPH-regulr 0 unit subcut QAM 06/01/23 02/23/25 History 70-30 mix 100 unit/mL subcutaneous susp (Novolin 70/30 U-100 Insulin) losartan 25 mg tablet 25 mg PO DAILY 06/01/23 02/23/25 History melatonin 10 mg tablet 10 mg PO HS Insomnia 06/01/23 02/23/25 History metformin 1,000 mg tablet 500 mg PO BID 06/01/23 02/23/25 History torsemide 20 mg tablet 20 mg PO DAILY 06/01/23 02/23/25 History vitamin B complex 1 cap PO DAILY 06/01/23 02/23/25 History magnesium oxide 400 mg PO BID #60 caps 06/08/23 02/23/25 Rx omeprazole 40 mg capsule,delayed 40 mg PO BID 02/21/25 02/23/25 History release oxycodone 5 mg tablet 5 mg PO QID PRN Pain 02/23/25 02/23/25 History tramadol 50 mg tablet 50 mg PO BID PRN pain #11 tabs 02/23/25 Rx Allergies Allergy/AdvReac Type Severity Reaction Status Date / Time nickel Allergy "Cheap Verified 02/23/25 16:46 metal = rash" Past Med/Surg History Problem List Elevated troponin (Acute) Recurrent falls (Acute) Fracture, humerus (Acute) Metabolic encephalopathy Acute hypoxemic respiratory failure (Acute) Episode of confusion COPD with emphysema (Acute) Multiple pulmonary nodules Pulmonary mass AMS (altered mental status) (Acute) JANELL (acute kidney injury) (Acute) JANELL (acute kidney injury) (Acute) Hypomagnesemia Melena Hematemesis (Acute) Elevated lactic acid level (Acute) Renal insufficiency (Acute) Esophageal varices (Acute) Acute lower GI bleeding (Acute) Acute GI bleeding (Acute) Acute blood loss anemia (Acute) Hepatic cirrhosis (Acute) History of ischemic colitis (Acute) GI bleed (Acute) pt unaware Ischemic colitis Leukocytosis HTN (hypertension) Hyperparathyroidism Pulmonary nodule Ovarian cyst Anemia Chronic heart failure with preserved ejection fraction (HFpEF) Colitis Leg edema Hypoxia Abdominal pain Sepsis Ovarian mass, right (Acute) Vomiting (Acute) Abnormal EKG (Acute) Elevated troponin I level (Acute) Abdominal pain, acute, right lower quadrant (Acute) Ileocolitis (Acute) Microcytic anemia Idiopathic polyneuropathy Right homonymous hemianopsia Muscle weakness of right arm S/P hysterectomy S/P tonsillectomy S/P appendectomy Mitral stenosis Elevated troponin (Acute) Bilateral lower extremity edema (Acute) CHF (congestive heart failure) (Acute) GERD (gastroesophageal reflux disease) (Chronic) Osteoporosis (Chronic) Hip pain Hyperparathyroidism (Chronic) Nontoxic multinodular goiter (Chronic) Vitamin D deficiency (Chronic) DM type 2 (diabetes mellitus, type 2) (Chronic) Lumbago Other and unspecified hyperlipidemia Type 2 diabetes mellitus without complications Essential (primary) hypertension Coronary atherosclerosis of [place] coronary vessel Medical History Encounter for pre-operative examination CHF (congestive heart failure) Anemia Osteoporosis GERD (gastroesophageal reflux disease) Hyperparathyroidism Hypertension Poor historian Abnormal EKG pt unaware Acute respiratory failure CVA (cerebral vascular accident) Jan 2022 per pt > has some right hand weakness > does not follow with neuro Weakness of right upper extremity s/p CVA, just on occasion Acute heart failure with preserved ejection fraction (HFpEF) pt unaware Acute respiratory failure with hypoxia pt unaware Surgical History History of colonoscopy History of endovascular stent graft for abdominal aortic aneurysm unsure if this is exactly what she has, but had done in Apr 2022 at [facility] she thinks it was for AAA S/P tonsillectomy S/P hysterectomy S/P appendectomy History of heart artery stent placed 1994 S/P cholecystectomy History of cataract surgery bilat Family History Mother , age 70 of a stroke and congestive heart failure Stroke CHF (congestive heart failure) Father , in his 70s of an [place] Myocardial infarction Social History Smoking Status: Former smoker Tobacco Type: Cigarettes packs per day: 4; Second Hand Exposure: No; Do You Dip or Chew Tobacco: No; Hx Alcohol Use: Yes Alcohol type: beer Alcohol Intake Frequency Comment: up to 1 beer to her day. Hx Substance Use: No Preferred Language: Stateless Communication Ability: Effective House Servant Required: No Beliefs That Will Affect Care: None marital status: Current Living Situation: Spouse Current Living Situation Comment: Home with current occupational status: retired current occupation: Multiple different jobs retiring in her 50s. Feels Safe at Home: Yes Assistive Devices: Glasses and Walker Physical Exam Vital Signs Vital Signs - 24 hr 02/23/25 14:23 02/23/25 14:53 02/23/25 14:53 Temperature 36.5 C Temperature Source Temporal Artery Scan Pulse Rate 71 Pulse Rate [Finger] 72 72 Pulse Rhythm [Finger] Regular Pulse Strength [Finger] Normal Respiratory Rate 16 20 14 Respiratory Effort / Characteristics Non-Labored Spontaneous Non-Labored Spontaneous Non-Labored Spontaneous Respiratory Depth Normal Normal Normal Respiratory Pattern Regular Blood Pressure 113/51 L Blood Pressure [Right Arm] 132/79 132/79 Blood Pressure Mean 71 Blood Pressure Mean [Right Arm] 96 96 Blood Pressure Position [Right Arm] Sitting Lying Pulse Oximetry 98 99 99 Oxygen Delivery Method Room Air Room Air Room Air Oxygen Flow Rate Sepsis Recent Fever Within 48 Hours No Sepsis New/Unexplained Change in Mental Status No Sepsis Action Taken by Nursing No Action Required 02/23/25 14:53 02/23/25 15:30 02/23/25 16:26 Temperature 36.5 C Temperature Source Pulse Rate 88 Pulse Rate [Finger] 76 Pulse Rhythm [Finger] Regular Pulse Strength [Finger] Respiratory Rate 18 16 Respiratory Effort / Characteristics Non-Labored Spontaneous Respiratory Depth Normal Respiratory Pattern Regular Blood Pressure 132/79 Blood Pressure [Right Arm] 132/79 Blood Pressure Mean Blood Pressure Mean [Right Arm] 96 Blood Pressure Position [Right Arm] Pulse Oximetry 95 95 99 Oxygen Delivery Method Room Air Room Air Room Air Oxygen Flow Rate 0 Sepsis Recent Fever Within 48 Hours Sepsis New/Unexplained Change in Mental Status Sepsis Action Taken by Nursing 02/23/25 17:30 02/23/25 18:00 Temperature Temperature Source Pulse Rate Pulse Rate [Finger] 83 78 Pulse Rhythm [Finger] Regular Pulse Strength [Finger] Normal Respiratory Rate 20 18 Respiratory Effort / Characteristics Non-Labored Spontaneous Non-Labored Respiratory Depth Normal Normal Respiratory Pattern Regular Blood Pressure Blood Pressure [Right Arm] 118/76 140/46 L Blood Pressure Mean Blood Pressure Mean [Right Arm] 90 77 Blood Pressure Position [Right Arm] Sitting Sitting Pulse Oximetry 96 99 Oxygen Delivery Method Room Air Room Air Oxygen Flow Rate Sepsis Recent Fever Within 48 Hours Sepsis New/Unexplained Change in Mental Status Sepsis Action Taken by Nursing Primary Survey Airway: Intact Breathing: Normal, breath sounds equal bilaterally Circulation: Skin warm, distal pulses 2+, capillary refill less than 2 seconds Disability Pupils: Equal and reactive to light, 2 mm, brisk GCS: 15, E = 4 V=4 M= 6 Motor Function: Moves all extremities. Sensory: No deficits Secondary Survey HEAD: Ecchymosis over the patient's left forehead. EYES: Pupils round reactive to light, conjunctiva clear, extraocular movements intact, no raccoons eyes ENT: no vyas's sign, nares patent, oropharynx clear NECK: No JVD, midline trachea, no cervical spine tenderness HEART: Regular rate and rhythm LUNGS: Clear to auscultation bilaterally. CHEST: Chest wall non-tender, no bruising/deformity ABD: soft, non-tender, no rebound or guarding, MUSC: Pelvis stable. Left upper extremity is tender to palpation in the proximal humerus. Palpable radial and ulnar pulse in the left upper extremity. NEURO: CNII-XII grossly intact, no sensory deficits PSYCH: Bizarre affect. Pressured speech. Course Course 1450: The patient was evaluated in room B5. A complete history and physical exam was performed Cardiac monitoring: An order was placed for continuous cardiac monitoring. The monitor shows a rate of 70 with sinus rhythm interpreted by 1702: X-ray viewed by me shows proximal humerus fracture. Discussed with orthopedics on-call HUNTER Reich for Dr. Liu. He and I both agree that the patient has no other traumatic injuries to the patient can be admitted to the medicine service and orthopedics will evaluate the patient once admitted. He states there is most likely no need for any sort of acute surgical intervention and I agree. 175: Vital signs stable. CT imaging shows no acute traumatic injury. Labs show white blood cell count of 6.18 hemoglobin 10.7 coagulation studies are unremarkable VBG is unremarkable. Creatinine 1.97 at patient's baseline. Bilirubin 1.6 which is elevated from 0.9 yesterday. Patient's high-sensitivity troponin 46.3. Patient not reporting any chest pain difficulty breathing. Patient will be admitted to the [facility] team. 1818: Vital signs stable. Patient and family state that they do not want to be admitted to the hospital. I explained to them that her cardiac enzymes are elevated and given this and her recurrent falls it would probably be best to admit the patient to the hospital and have orthopedics and cardiology evaluate the patient. Patient and family are adamant that they will not stay in the hospital. Patient and family state that they do not want any "experimental treatments or exploratory surgeries". They are demanding to leave immediately as the patient states "my son needs to take a nap". I tried to reassure the patient, her son who is an adult, and her at bedside that there is no exploratory surgery or experimental treatment that would be performed and we would be monitoring her cardiac enzymes and have her have an orthopedic evaluation. Patient is again adamant that she will not stay in the hospital. Family is supportive the patient's decision. Vss. Patient and family wishes to leave AMA. Risks and benefits discussed with patient and family, however patient and family still wishes to leave AMA. Patient alert and oriented X3. Patient and family clearly and cogently states that they understand the risks of leaving including , permanent injury, neurovascular injury, cardiac arrhythmia, myocardial infarction, and disability. Patient was explained that they can return for care at any time and we would be happy to help them. F/U PCP, orthopedics, and cardiology. Discharged with analgesia. Medical Decision Making Medical Records Attestation: I reviewed the patient's medical records. Medical records reviewed. Patient was seen in the emergency department on February 21, 2025, 2 days ago. Patient was admitted for a GI bleed. At 7 PM on February 22, 2025 the patient left the hospital AMA with her who signed her out. Laboratory Data Attestation: I reviewed the patient's lab results. 02/23/25 15:59 02/23/25 15:59 Lab Results 02/23/25 Range/Units 15:59 WBC 6.18 (4.8-10.8) K/ul RBC 3.44 L (4.20-5.40) M/uL Hgb 10.7 L (12.0-16.0) g/dl Hct 32.4 L (37.0-47.0) % MCV 94.2 (80.0-100.0) fL MCH 31.1 (25.0-34.0) pg MCHC 33.0 (32.0-36.0) g/dL RDW Std Deviation 54.4 H (36.4-46.3) fL RDW Coeff of Vanita 15.9 H (11.5-14.5) % Plt Count 76 L (130-400) K/uL MPV 12.2 (9.4-12.4) fL Immature Gran % (Auto) 0.2 % Neut % (Auto) 79.8 % Lymph % (Auto) 10.0 % [place] % (Auto) 7.9 % Eos % (Auto) 1.8 % Baso % (Auto) 0.3 % Neut # (Auto) 4.93 (1.40-6.50) K/uL Lymph # (Auto) 0.62 L (1.20-3.40) K/uL [place] # (Auto) 0.49 (0.11-0.59) K/uL Eos # (Auto) 0.11 (0.00-0.50) K/uL Baso # (Auto) 0.02 (0.00-0.20) K/uL Immature Gran # (Auto) 0.01 (0.01-0.20) K/uL PT 13.9 H (9.0-12.0) Seconds INR 1.3 H (0.9-1.1) APTT 26 (21-31) Seconds PTT Ratio 1.0 VBG pH 7.44 H (7.36-7.41) VBG pCO2 36 L (38-50) mmHg VBG pO2 23 mmHg VBG HCO3 25 mmol/L VBG O2 Saturation < 60.0 % VBG Base Excess 0.6 mEq/L Sodium 137 (136-145) mmol/L Potassium 3.6 (3.5-5.1) mmol/L Chloride 101 (98-107) mmol/L Carbon Dioxide 24 (21-32) mmol/L Anion Gap 12 H (3-11) BUN 43 H (6-23) mg/dl Creatinine 1.97 H (0.6-1.2) mg/dl Est Cr Clr Drug Dosing 17.6 ml/min eGFR 24.62 BUN/Creatinine Ratio 21.8 H (10-20) Glucose 213 H (70-99(Fasting)) mg/dl Calcium 8.7 (8.6-10.3) mg/dl Magnesium 1.8 (1.7-2.4) mg/dl Total Bilirubin 1.6 H D (0.2-1.0) mg/dl Direct Bilirubin 0.4 H (0-0.2) mg/dl AST 49 H (13-39) U/L ALT 28 (7-52) U/L Alkaline Phosphatase 55 (34-104) U/L Ammonia 32.0 (18-72) umol/L Total Creatine Kinase 268 H (26-192) U/L Troponin I High Sens 46.3 H (0-14) pg/ml Total Protein 6.1 (6.0-8.3) gm/dl Albumin 3.1 L (3.4-5.0) gm/dl Lipase 29 (11-82) U/L Imaging Data Attestation: I personally reviewed and interpreted this imaging study as follows: My Impression: Shoulder x-ray: Proximal humerus fracture Radiologist's Impression: Cervical Spine CT 02/23/25 14:58 Exam: CT cervical spine without contrast. Reason for exam: Fall. Previous studies: 09/25/2022 FINDINGS: No acute fracture, dislocation or destructive bony process is evident. Marked abnormal narrowing of the C5-C6, C6-7 and C7-T1 intervertebral disc spaces with endplate sclerosis and spurring seen. Moderate degenerative facet arthropathy is seen. There is generalized osteoporosis. Extensive carotid artery calcifications present. IMPRESSION: 1. Negative for acute bony trauma. 2. 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 Electronically signed by Obley, Morro 02-23-2025 5:39 PM Chest X-Ray 02/23/25 14:58 HISTORY: Trauma due to fall TECHNIQUE: Portable AP radiograph of the chest. COMPARISON: Chest radiograph dated 02/21/2025. FINDINGS: Small focal opacity at the left lung base suspicious for pneumonia. No focal right lung opacity. No pneumothorax or effusion. Normal heart size. Left-sided aortic arch. Midline trachea. Degenerative changes of the shoulders and spine. IMPRESSION: Small focal left lower lung opacity suspicious for pneumonia. Follow-up PA and lateral chest radiographs are recommended in 6 to 8 weeks to ensure resolution. Electronically signed by Joel Pennington 02-23-2025 3:[address] 02/23/25 14:58 Exam: CT facial bones without contrast. Reason for exam: Fall. Previous studies: None FINDINGS: The sinuses remain clear. No air-fluid level is seen. Mandible appears intact without definite acute bony abnormalities. No acute trauma of the nasal bone is identified. Intra-abdominal contacts appear intact. No fracture of the zygoma is seen. IMPRESSION: Negative for acute bony trauma. Electronically signed by Morro Thomas 02-23-2025 5:[address] 02/23/25 14:58 Exam: CT head/brain without contrast: Reason for exam: Fall Previous studies: CT abdomen 1010 at 2024 FINDINGS: Marked diffuse atrophy again seen. Deep white matter lucency consistent with chronic ischemic angiopathy again seen. Area of encephalomalacia consistent with the left parietal/occipital infarct is noted. No acute intracranial mass effect, hemorrhage or edema is seen. Ventricular size is stable. No midline shift noted. Bony calvaria, shows no acute abnormality. Mastoids appear clear. IMPRESSION: 1. Negative for acute intracranial process and unenhanced head CT study. 2. Stable appearance of the left parietal/occipital infarct. 3. Stable appearance of the severe chronic atrophy and chronic ischemic angiopathy. Electronically signed by Morro Thomas 02-23-2025 5:30 PM Humerus X-Ray 02/23/25 14:58 HISTORY: Trauma due to fall. TECHNIQUE: Left humerus, 3 views. COMPARISON: None. FINDINGS: Acute displaced and impacted fracture of the left proximal humerus centered at the humeral neck. Glenohumeral alignment appears preserved. Mild osteoarthritis of the glenohumeral and acromioclavicular joints. No visible pneumothorax. Patchy left basilar opacity could represent pneumonia. IMPRESSION: * Acute mildly displaced and impacted left proximal humerus fracture centered at the surgical neck. * Mild osteoarthritis of the glenohumeral and acromioclavicular joints. * Mild patchy left basilar opacity could represent atelectasis or pneumonia. Electronically signed by Joel Pennington 02-23-2025 3:46 PM Shoulder X-Ray 02/23/25 14:59 HISTORY: Trauma due to fall. TECHNIQUE: Left shoulder, 3 views. COMPARISON: None. FINDINGS: Mildly displaced and impacted fracture of the left proximal humerus centered at the surgical neck. Mild glenohumeral and acromioclavicular joint osteoarthritis. Glenohumeral alignment appears maintained. 3.3 cm masslike opacity at the left lung base requires further evaluation with chest CT. No visible pneumothorax. IMPRESSION: * 3.3 cm masslike opacity at the left lung base. Further evaluation is recommended with contrast-enhanced CT of the chest. * Acute mildly displaced and impacted fractureinvolving the left proximal humerus centered at the surgical neck. Electronically signed by Joel Pennington 02-23-2025 3:49 PM Abdomen/Pelvis CT 02/23/25 16:44 Exam: CT abdomen/pelvis without contrast. Reason for exam: Trauma, patient fell. Previous studies: 02/21/2025. FINDINGS: Lobulated pleural-based mass in the left lower lobe suggesting malignant neoplasm is again seen. Lungs show COPD and chronic fibrotic changes as well. Liver is nodular in contour suggesting chronic hepatic cirrhosis. Clips from cholecystectomy are noted. Pancreas and spleen show no acute abnormality on unenhanced images. Extensive coronary calcifications are present. 6 mm right lower pole renal calculus without hydronephrosis. Left kidney unremarkable. Small segment of dissection suggested in the lower abdominal aorta without significant aneurysmal dilatation at this time. 11 cm cyst in the right hemipelvis are noted. Some gas is seen within the lumen of the urinary bladder suggesting a gas-forming infection or recent instrumentation. Diverticulosis is seen in the sigmoid colon. No evidence of bowel obstruction. Severe degenerative disease in the spine. IMPRESSION: 1. Negative for acute traumatic abnormality on unenhanced CT study abdomen/pelvis. 2. Probable chronic hepatic cirrhosis. 3. Right lower pole renal calculus without hydronephrosis. 4. Persistent large cystic lesion in the pelvis which would be better evaluated with ultrasound if indicated. 5. Diverticulosis. 6. Persistent left lower lobe pleural-based lung mass which may be malignant. Pulmonary medicine follow up recommended. Electronically signed by Morro Thomas 02-23-2025 5:44 PM ECG Data Attestation: I personally reviewed and interpreted this ECG as follows: Rate (beats per minute): 74 Rhythm: + sinus with SA ECG Intervals/blocks: + Normal MO and + Normal QT-c ECG Findings: + PVCs Additional Comments: QRS 76 [facility] Narrative 1450: The patient was evaluated in room B5. A complete history and physical exam was performed Cardiac monitoring: An order was placed for continuous cardiac monitoring. The monitor shows a rate of 70 with sinus rhythm interpreted by me 1702: X-ray viewed by me shows proximal humerus fracture. Discussed with orthopedics on-call HUNTER Reich for Dr. Liu. He and I both agree that the patient has no other traumatic injuries to the patient can be admitted to the medicine service and orthopedics will evaluate the patient once admitted. He states there is most likely no need for any sort of acute surgical intervention and I agree. 175: Vital signs stable. CT imaging shows no acute traumatic injury. Labs show white blood cell count of 6.18 hemoglobin 10.7 coagulation studies are unremarkable VBG is unremarkable. Creatinine 1.97 at patient's baseline. Bilirubin 1.6 which is elevated from 0.9 yesterday. Patient's high-sensitivity troponin 46.3. Patient not reporting any chest pain difficulty breathing. Patient will be admitted to the [facility] team. 181: Vital signs stable. Patient and family state that they do not want to be admitted to the hospital. I explained to them that her cardiac enzymes are elevated and given this and her recurrent falls it would probably be best to admit the patient to the hospital and have orthopedics and cardiology evaluate the patient. Patient and family are adamant that they will not stay in the hospital. Patient and family state that they do not want any "experimental treatments or exploratory surgeries". They are demanding to leave immediately as the patient states "my son needs to take a nap". I tried to reassure the patient, her son who is an adult, and her at bedside that there is no exploratory surgery or experimental treatment that would be performed and we would be monitoring her cardiac enzymes and have her have an orthopedic evaluation. Patient is again adamant that she will not stay in the hospital. Family is supportive the patient's decision. Vss. Patient and family wishes to leave AMA. Risks and benefits discussed with patient and family, however patient and family still wishes to leave AMA. Patient alert and oriented X3. Patient and family clearly and cogently states that they understand the risks of leaving including , permanent injury, neurovascular injury, cardiac arrhythmia, myocardial infarction, and disability. Patient was explained that they can return for care at any time and we would be happy to help them. F/U PCP, orthopedics, and cardiology. Discharged with analgesia. Impression & Plan Fracture, humerus, Recurrent falls, Elevated troponin Discharge Plan Visit Data Chief Complaint: Trauma Stated Complaint: L ARM INJURY DUE TO FALL ED Provider: Guille Hodges Discharge Problem: Fracture, humerus, Recurrent falls, Elevated troponin Patient Disposition: Against Medical Advice Condition: Good Discharge Instructions Krames/Other Patient Handouts: ED Fracture, Upper Extremity, ED Sling Forms Stand Alone Forms: [facility], Important Visit Information Prescriptions Prescriptions: New tramadol 50 mg tablet 50 mg PO BID PRN (Reason: pain) Qty: 11 0RF No Action atorvastatin 40 mg tablet 40 mg PO .AFTERNOON torsemide 20 mg tablet 20 mg PO DAILY Hold Instructions: Resume on 07/13/23. Patient Comments: 01/12- not listed on the faxed med list. Last filled 12/25 90 day supply #180. Original: 40 mg po daily. Novolin 70/30 U-100 Insulin 100 unit/mL (70-30) suspension 0 unit SUBCUT QAM Hold Instructions: Resume on 07/13/23. Rx Instructions: 02/23/25 : 20 UNITS IN THE AM carvedilol 3.125 mg tablet 6.25 mg PO BID Patient Comments: 01/12- 3.125mg dose not listed on the faxed med list. Unable to verify. 11/12/24 6.25mg po bid was filled (100 day supply #200) but not on the faxed list either. metformin 1,000 mg tablet 500 mg PO BID Hold Instructions: Resume on 07/13/23. losartan 25 mg tablet 25 mg PO DAILY Hold Instructions: Resume on 07/13/23. vitamin B complex Capsule 1 cap PO DAILY Patient Comments: 02/21- otc unable to verify cinacalcet [Sensipar] 30 mg Tablet 30 mg PO DAILY melatonin 10 mg Tablet 10 mg PO HS Patient Comments: 02/21- otc unable to verify biotin 1 mg Capsule 1 mg PO DAILY Patient Comments: 02/21- otc unable to verify magnesium oxide 400 mg magnesium Capsule 400 mg PO BID Qty: 60 0RF Hold Instructions: Resume on 07/13/23. Patient Comments: 02/21- otc unable to verify omeprazole 40 mg capsule,delayed release(DR/EC) 40 mg PO BID oxycodone 5 mg Tablet 5 mg PO QID PRN (Reason: Pain) Referrals Referrals: Arun Wilks DO [Hospital Staff Pharmacist] - (Follow-up in 1-7 days.) Alexy Al MD [Primary Care Provider] - (Follow-up tomorrow) Tc Liu DO [Physician] - (Follow-up in 1-7 days.) Discharge Problem: Fracture, humerus Qualifiers: Encounter type: initial encounter Humerus Location: surgical neck Fracture type: closed Laterality: left
[2025-02-23] MEDS ORDERED: GLUCAGON FOR INJ 1 MG VIAL SQ PRN (18:40)
[2025-02-23] MEDS ORDERED: GLUCOSE 40% GEL 15 GM TUBE PO PRN (18:40)
[2025-02-23] MEDS ORDERED: PHARMACY GLYCEMIC MGMT CONSULT PRN (18:40)
[2025-02-23] MEDS ORDERED: GLUCOSE 10 TAB/TUBE PO PRN (18:40)
[2025-02-23] MEDS ORDERED: CARBOHYDRATES FOR HYPOGLYCEMIA PO PRN (18:40)
[2025-02-23] MEDS ORDERED: DEXTROSE 50% 50 ML SYRINGE IV PRN (18:40)
--- NOTE | 2025-02-23 20:06 | History & Physical Report ---
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 #Hepatic Encephalopathy #Cirrhosis #Syncope #R/o Orthostatic Hypotension -patient left AMA after being admitted with hepatic encephalopathy, at that time had hyperactive delirium -this time, still showing some evidence of hepatic encephalopathy given confusion, but less agitated -syncope likely in setting of orthostatic hypotension vs. vasovagal syncope vs. alcohol intoxication, less likely arrhythmia or stroke given no focal weakness and gradual onset of symptoms Plan: -admit to med surg with telemetry -thiamine, folic acid ordered, -delirium precautions -avoid anticholinergic medications -start lactulose 20mg PO bid for hepatic encephalopathy -start LR maintenance fluids, check orthostats -monitor on telemetry -PT/OT ordered, will likely need SNF vs. 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 in setting of fall -trend troponin #Old Left Occipital/Parietal Infarcts -check A1c, lipids #Left Humerus Fracture -noted on imaging, significant tenderness to palpation Plan: -ortho consult, appreciate recs -likely no surgical intervention #CKD Stage IV -trend BMP #CAD #HFpEF -appears euvolemic to dry #COPD -not in exacerbation #Lung Nodule -likely malignant based on imaging -will need biopsy outpatient #DM Type 2 -SSI ordered -hold PO meds I spent a total of 80 minutes in direct patient care, including [id number] laura e with the patient and/or family, reviewing medical records, ordering and reviewing diagnostic tests, and coordinating care with other healthcare providers. This time includes: history taking, physical examination, medical decision making, counseling, ECG interpretation, imaging interpretation, lab interpretation, orders, and education, excluding time spent in the performance of separately billed services. History of Present Illness Chief Complaint: -fall Primary Care Provider: Alexy Al MD 84 yo female with pmhx of decompensated alcoholic cirrhosis c/b varices (large esophageal/gastric), DM II, diabetic peripheral angiopathy, hyperlipidemia, hyperparathyroidism, lung nodules, heart failure with preserved ejection fraction, aortic ectasia, superior mesenteric artery stenosis [place] [facility] [place] 2023, superior mesenteric artery stenosis, hypertension, history of CVA, history of CAD, GERD, history of pericolonic abscess, history of hepatic cirrhosis, osteoporosis, visual field loss poststroke who presents for fall and left shoulder pain. Has a long history of admissions, most recently left AMA after being admitted for confusion and possible hematemesis/variceal bleed. In the ED, found to have a humerous fracture and fall, mildly elevated CK, elevated HS troponin, tried to leave AMA but decided to stay, admitted to medicine for further workup. Patient seen and examined at bedside. Patient states she went home and fell trying to get into bed. Before getting into bed, was feeling lightheaded. States she likely lost consciousness during this episode. States she did hit head. States that she feels she can no longer take care of herself at home but that her does not want her to live elsewhere. States her left arm hurts a lot. Denies chest pain, SOB, headache, other concerns. Discussed code status with patient, patient does not want chest compressions or intubation, DNRDNI in chart to reflect patient wishes. Allergies Allergy/AdvReac Type Severity Reaction Status Date / Time nickel Allergy "Cheap Verified 02/23/25 16:46 metal = rash" Home Medications Medication Instructions Recorded Confirmed Type atorvastatin 40 mg tablet 40 mg PO .AFTERNOON 06/01/23 02/23/25 History biotin 1 mg capsule 1 mg PO DAILY 06/01/23 02/23/25 History carvedilol 3.125 mg tablet 6.25 mg PO BID 06/01/23 02/23/25 History cinacalcet 30 mg tablet (Sensipar) 30 mg PO DAILY 06/01/23 02/23/25 History insulin human U-100 NPH-regulr 0 unit subcut QAM 06/01/23 02/23/25 History 70-30 mix 100 unit/mL subcutaneous susp (Novolin 70/30 U-100 Insulin) losartan 25 mg tablet 25 mg PO DAILY 06/01/23 02/23/25 History melatonin 10 mg tablet 10 mg PO HS Insomnia 06/01/23 02/23/25 History metformin 1,000 mg tablet 500 mg PO BID 06/01/23 02/23/25 History torsemide 20 mg tablet 20 mg PO DAILY 06/01/23 02/23/25 History vitamin B complex 1 cap PO DAILY 06/01/23 02/23/25 History magnesium oxide 400 mg PO BID #60 caps 06/08/23 02/23/25 Rx omeprazole 40 mg capsule,delayed 40 mg PO BID 02/21/25 02/23/25 History release oxycodone 5 mg tablet 5 mg PO QID PRN Pain 02/23/25 02/23/25 History tramadol 50 mg tablet 50 mg PO BID PRN pain #11 tabs 02/23/25 Rx Past Med/Surg History Problem List Elevated troponin (Acute) Recurrent falls (Acute) Fracture, humerus (Acute) Metabolic encephalopathy Acute hypoxemic respiratory failure (Acute) Episode of confusion COPD with emphysema (Acute) Multiple pulmonary nodules Pulmonary mass AMS (altered mental status) (Acute) JANELL (acute kidney injury) (Acute) JANELL (acute kidney injury) (Acute) Hypomagnesemia Melena Hematemesis (Acute) Elevated lactic acid level (Acute) Renal insufficiency (Acute) Esophageal varices (Acute) Acute lower GI bleeding (Acute) Acute GI bleeding (Acute) Acute blood loss anemia (Acute) Hepatic cirrhosis (Acute) History of ischemic colitis (Acute) GI bleed (Acute) pt unaware Ischemic colitis Leukocytosis HTN (hypertension) Hyperparathyroidism Pulmonary nodule Ovarian cyst Anemia Chronic heart failure with preserved ejection fraction (HFpEF) Colitis Leg edema Hypoxia Abdominal pain Sepsis Ovarian mass, right (Acute) Vomiting (Acute) Abnormal EKG (Acute) Elevated troponin I level (Acute) Abdominal pain, acute, right lower quadrant (Acute) Ileocolitis (Acute) Microcytic anemia Idiopathic polyneuropathy Right homonymous hemianopsia Muscle weakness of right arm S/P hysterectomy S/P tonsillectomy S/P appendectomy Mitral stenosis Elevated troponin (Acute) Bilateral lower extremity edema (Acute) CHF (congestive heart failure) (Acute) GERD (gastroesophageal reflux disease) (Chronic) Osteoporosis (Chronic) Hip pain Hyperparathyroidism (Chronic) Nontoxic multinodular goiter (Chronic) Vitamin D deficiency (Chronic) DM type 2 (diabetes mellitus, type 2) (Chronic) Lumbago Other and unspecified hyperlipidemia Type 2 diabetes mellitus without complications Essential (primary) hypertension Coronary atherosclerosis of [place] coronary vessel Medical History Encounter for pre-operative examination CHF (congestive heart failure) Anemia Osteoporosis GERD (gastroesophageal reflux disease) Hyperparathyroidism Hypertension Poor historian Abnormal EKG pt unaware Acute respiratory failure CVA (cerebral vascular accident) Jan 2022 per pt > has some right hand weakness > does not follow with neuro Weakness of right upper extremity s/p CVA, just on occasion Acute heart failure with preserved ejection fraction (HFpEF) pt unaware Acute respiratory failure with hypoxia pt unaware Surgical History History of colonoscopy History of endovascular stent graft for abdominal aortic aneurysm unsure if this is exactly what she has, but had done in Apr 2022 at [place] she thinks it was for AAA S/P tonsillectomy S/P hysterectomy S/P appendectomy History of heart artery stent placed 1994 S/P cholecystectomy History of cataract surgery bilat Family History Mother , age 70 of a stroke and congestive heart failure Stroke CHF (congestive heart failure) Father , in his 70s of an ME Myocardial infarction Social History Smoking Status: Former smoker Tobacco Type: Cigarettes packs per day: 4; Second Hand Exposure: No; Do You Dip or Chew Tobacco: No; Hx Alcohol Use: Yes Alcohol type: beer Alcohol Intake Frequency Comment: up to 1 beer to her day. 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 Feels Safe at Home: Yes Assistive Devices: Glasses and Walker Review of Systems Review of Systems: -negative unless listed above Physical Exam Physical Exam: Gen: A&O 3 NAD, sarcopenia noted HEENT: NCAT, EOMI, not icteric. External ears normal. No rhinorrhea. Moist mucous membranes. Neck: Supple, full range of motion, no observable masses, No meningeal sign. Lungs: No Respiratory distress. CV: RRR, no edema. Abdomen: Soft, nondistended, No rebound tenderness. MSK: tenderness and swelling on left shoulder Skin: diffuse mild bruising Neuro: Normal Gait, Grossly intact. Psych: appears mildly confused, slightly agitated Results & Data Results & Data Vital Signs (Past 12 Hours) Vital Signs Temp Pulse Pulse Resp BP BP Pulse Ox 02/23/25 19:14 87 L 02/23/25 19:01 78 02/23/25 19:00 74 17 156/56 H 96 02/23/25 18:00 78 18 140/46 L 99 02/23/25 17:30 83 20 118/76 96 02/23/25 16:26 99 02/23/25 15:30 76 16 132/79 95 02/23/25 14:53 36.5 C 88 18 132/79 95 02/23/25 14:53 72 14 132/79 99 02/23/25 14:53 72 20 132/79 99 02/23/25 14:23 36.5 C 71 16 113/51 L 98 O2 Del Method O2 Flow Rate 02/23/25 19:14 Room Air, Nasal Cannula 02/23/25 19:01 02/23/25 19:00 Nasal Cannula 2 02/23/25 18:00 Room Air 02/23/25 17:30 Room Air 02/23/25 16:26 Room Air 02/23/25 15:30 Room Air 02/23/25 14:53 Room Air 0 02/23/25 14:53 Room Air 02/23/25 14:53 Room Air 02/23/25 14:23 Room Air Laboratory Results -personally reviewed, mildly elevated HS troponin likely in setting of fracture, mildly elevated CK in setting of fall, mildly elevated bili and LFTs in setting of known cirrhosis, elevated glucose in setting of diabetes, creatinine 1.97 around baseline, no leukocytosis noted, Hgb around same as prior (3) Fracture, humerus Encounter type: initial encounter Fracture type: closed Humerus Location: surgical neck Laterality: left (6) Esophageal varices Esophageal varices type: unspecified type
[2025-02-23 20:56] LABS: Cholesterol 96.0 mg/dl (0-200); HDL Cholesterol 31.0 mg/dl; Triglycerides 113.0 mg/dl (0-150)
[2025-02-23] MEDS: LACTULOSE SYRUP 20 GM/30 ML UDC PO SCH (21:13)
[2025-02-23] MEDS: INSULIN ASPART PER UNIT CHARGE SC SCH (21:14)
[2025-02-23] MEDS: THIAMINE HCL 500 MG in SODIUM CHLORIDE 0.9% 50 ML IV STA (21:14)
[2025-02-23] MEDS: LACTATED RINGER'S 1,000 ML IV SCH (21:15)
--- NOTE | 2025-02-23 21:54 | Electrocardiogram Report ---
Test Reason : Blood Pressure : */* mmHG Vent. Rate : 74 BPM Atrial Rate : 74 BPM P-R Int : 158 ms QRS Dur : 76 ms QT Int : 440 ms P-R-T Axes : 34 25 -6 degrees QTcB Int : 488 ms Sinus rhythm with occasional Premature ventricular complexes Anteroseptal infarct (cited on or before 01-Jun-2023) Nonspecific T wave abnormality Prolonged QT Abnormal ECG When compared with ECG of 21-Feb-2025 08:44, Premature ventricular complexes are now Present Inverted T waves have replaced nonspecific T wave abnormality in Inferior leads Nonspecific T wave abnormality now evident in Anterior leads Confirmed by Rupesh Champion ([id number]) on 02/23/2025 9:53:57 PM Referred By: REFERRED SELF Confirmed By: Rupesh Champion
[2025-02-23] MEDS ORDERED: POLYETHYLENE (MIRALAX) 17 GM PACK PO PRN (22:30)
[2025-02-23] MEDS ORDERED: ONDANSETRON INJ 2 MG/ML 2 ML VIAL IV PRN (22:30)
[2025-02-24 06:55] LABS: Hematocrit (blood only) 27.1 % (37.0-47.0); Hemoglobin 9.0 g/dl (12.0-16.0); Mean Corpuscular Hemoglobin 31.4 pg (25.0-34.0); Mean Corpuscular Volume 94.4 fL (80.0-100.0); Platelet Count 64 K/uL (130-400); RDW Standard Deviation 55.0 fL (36.4-46.3); Red Blood Count 2.87 M/uL (4.20-5.40); White Blood Count 5.19 K/ul (4.8-10.8)
[2025-02-24 07:16] LABS: Alanine Aminotransferase 22.0 U/L (7-52); Albumin Globulin Ratio 1.0 (0.9-2); Albumin Level 2.6 gm/dl (3.4-5.0); Alkaline Phosphatase 47.0 U/L (34-104); Anion Gap 8.0 (3-11); Bilirubin,Total 1.3 mg/dl (0.2-1.0); Blood Urea Nitrogen 41.0 mg/dl (6-23); Calcium 8.0 mg/dl (8.6-10.3); Carbon Dioxide 25.0 mmol/L (21-32); Chloride 103.0 mmol/L (98-107); Creatine Kinase 153.0 U/L (26-192); Creatinine Clr Calc Pharmacy 18.2 ml/min; Globulin 2.5 gm/dl (2.5-4.0); Glucose 177.0 mg/dl (70-99(Fasting)); Magnesium 1.7 mg/dl (1.7-2.4); Potassium 3.4 mmol/L (3.5-5.1); Sodium 136.0 mmol/L (136-145); Total Protein 5.1 gm/dl (6.0-8.3)
[2025-02-24 08:07] LABS: Hemoglobin A1C 6.7 % (4.5-5.6)
--- NOTE | 2025-02-24 09:50 | Orthopedic Consultation ---
Date of Service February 24, 2025 Assessment & Plan (1) Closed fracture of left proximal humerus: * Case/imaging reviewed and discussed with Dr Liu * Recommend conservative treatment non weight bearing in sling, left upper extremity. * Disposition: TBD * Daily treatment: Physical Therapy/ Occupational Therapy per protocol * Weight bearing status: non weight bearing left upper extremity * Pain control * Remainder care per primary team * Follow-up in 1-2 weeks to reevaluate fracture with an x-ray, follow-up appt requested with office. History of Present Illness Reason for Consultation: Left proximal humerus fracture Requesting Physician: . Attending Physician: Dustin Barros MD . Patient is a 84 y/o female with left proximal humerus fracture. PMH including COPD and hepatic cirrhosis. Presents to hospital with left upper extremity pain from a fall after discharge from the hospital the day prior. Current workup including x-rays. Orthopedics consulted for management recommendations. At time of exam patient patient states she is having pain in her left arm and notes she looks like she "lost a boxing match." Allergies Allergy/AdvReac Type Severity Reaction Status Date / Time nickel Allergy "Cheap Verified 02/23/25 16:46 metal = rash" Home Medications Medication Instructions Recorded Confirmed Type atorvastatin 40 mg tablet 40 mg PO .AFTERNOON 06/01/23 02/23/25 History biotin 1 mg capsule 1 mg PO DAILY 06/01/23 02/23/25 History carvedilol 3.125 mg tablet 6.25 mg PO BID 06/01/23 02/23/25 History cinacalcet 30 mg tablet (Sensipar) 30 mg PO DAILY 06/01/23 02/23/25 History insulin human U-100 NPH-regulr 0 unit subcut QAM 06/01/23 02/23/25 History 70-30 mix 100 unit/mL subcutaneous susp (Novolin 70/30 U-100 Insulin) losartan 25 mg tablet 25 mg PO DAILY 06/01/23 02/23/25 History melatonin 10 mg tablet 10 mg PO HS Insomnia 06/01/23 02/23/25 History metformin 1,000 mg tablet 500 mg PO BID 06/01/23 02/23/25 History torsemide 20 mg tablet 20 mg PO DAILY 06/01/23 02/23/25 History vitamin B complex 1 cap PO DAILY 06/01/23 02/23/25 History magnesium oxide 400 mg PO BID #60 caps 06/08/23 02/23/25 Rx omeprazole 40 mg capsule,delayed 40 mg PO BID 02/21/25 02/23/25 History release oxycodone 5 mg tablet 5 mg PO QID PRN Pain 02/23/25 02/23/25 History tramadol 50 mg tablet 50 mg PO BID PRN pain #11 tabs 02/23/25 Rx Past Med/Surg History Problem List (Updated 02/24/25 @ 09:46 by Mary Kelly PA-C) Closed fracture of left proximal humerus Elevated troponin (Acute) Recurrent falls (Acute) Fracture, humerus (Acute) Metabolic encephalopathy Acute hypoxemic respiratory failure (Acute) Episode of confusion COPD with emphysema (Acute) Multiple pulmonary nodules Pulmonary mass AMS (altered mental status) (Acute) JANELL (acute kidney injury) (Acute) JANELL (acute kidney injury) (Acute) Hypomagnesemia Melena Hematemesis (Acute) Elevated lactic acid level (Acute) Renal insufficiency (Acute) Esophageal varices (Acute) Acute lower GI bleeding (Acute) Acute GI bleeding (Acute) Acute blood loss anemia (Acute) Hepatic cirrhosis (Acute) History of ischemic colitis (Acute) GI bleed (Acute) pt unaware Ischemic colitis Leukocytosis HTN (hypertension) Hyperparathyroidism Pulmonary nodule Ovarian cyst Anemia Chronic heart failure with preserved ejection fraction (HFpEF) Colitis Leg edema Hypoxia Abdominal pain Sepsis Ovarian mass, right (Acute) Vomiting (Acute) Abnormal EKG (Acute) Elevated troponin I level (Acute) Abdominal pain, acute, right lower quadrant (Acute) Ileocolitis (Acute) Microcytic anemia Idiopathic polyneuropathy Right homonymous hemianopsia Muscle weakness of right arm S/P hysterectomy S/P tonsillectomy S/P appendectomy Mitral stenosis Elevated troponin (Acute) Bilateral lower extremity edema (Acute) CHF (congestive heart failure) (Acute) GERD (gastroesophageal reflux disease) (Chronic) Osteoporosis (Chronic) Hip pain Hyperparathyroidism (Chronic) Nontoxic multinodular goiter (Chronic) Vitamin D deficiency (Chronic) DM type 2 (diabetes mellitus, type 2) (Chronic) Lumbago Other and unspecified hyperlipidemia Type 2 diabetes mellitus without complications Essential (primary) hypertension Coronary atherosclerosis of [place] coronary vessel Medical History Encounter for pre-operative examination CHF (congestive heart failure) Anemia Osteoporosis GERD (gastroesophageal reflux disease) Hyperparathyroidism Hypertension Poor historian Abnormal EKG pt unaware Acute respiratory failure CVA (cerebral vascular accident) Jan 2022 per pt > has some right hand weakness > does not follow with neuro Weakness of right upper extremity s/p CVA, just on occasion Acute heart failure with preserved ejection fraction (HFpEF) pt unaware Acute respiratory failure with hypoxia pt unaware Surgical History History of colonoscopy History of endovascular stent graft for abdominal aortic aneurysm unsure if this is exactly what she has, but had done in Apr 2022 at [place] she thinks it was for AAA S/P tonsillectomy S/P hysterectomy S/P appendectomy History of heart artery stent placed 1994 S/P cholecystectomy History of cataract surgery bilat Family History Mother , age 70 of a stroke and congestive heart failure Stroke CHF (congestive heart failure) Father , in his 70s of an [place] Myocardial infarction Social History Smoking Status: Former smoker Tobacco Type: Cigarettes packs per day: 4; Second Hand Exposure: No; Do You Dip or Chew Tobacco: No; Hx Alcohol Use: Yes Alcohol type: beer Alcohol Intake Frequency Comment: up to 1 beer to her day. Hx Substance Use: No Preferred Language: Kosovan Communication Ability: Effective Sugar Reprocess Operator Head Required: No Beliefs That Will Affect Care: None marital status: Current Living Situation: Spouse Current Living Situation Comment: Home with current occupational status: retired current occupation: Multiple different jobs retiring in her 50s. Other Information That Helps Us Care for You: No Feels Safe at Home: Yes Safety Concerns: Feels Safe At This Time Assistive Devices: Denture - Upper, Denture - Lower, Glasses and Walker Review of Systems All systems reviewed & are unremarkable except as noted in HPI & below. Physical Exam . * General: Alert and oriented, no acute distress * Constitutional: well-developed, well-nourished. * Respiratory: Normal respiratory effort, no distress * Skin: No rash or lesion. * Neurologic: Grossly normal * Musculoskeletal: Left proximal humerus with tenderness to palpation. Diffuse swelling and ecchymosis noted. Limited ROM. Pt is resting in a sling and remains neurovascularly intact. Results & Data Results & Data Laboratory Results . Laboratory Results - last 24 hr 02/23/25 02/23/25 02/23/25 15:59 16:05 19:49 WBC 6.18 RBC 3.44 L Hgb 10.7 L Hct 32.4 L MCV 94.2 MCH 31.1 MCHC 33.0 RDW Std Deviation 54.4 H RDW Coeff of Vanita 15.9 H Plt Count 76 L MPV 12.2 Immature Gran % (Auto) 0.2 Neut % (Auto) 79.8 Lymph % (Auto) 10.0 [place] % (Auto) 7.9 Eos % (Auto) 1.8 Baso % (Auto) 0.3 Neut # (Auto) 4.93 Lymph # (Auto) 0.62 L [place] # (Auto) 0.49 Eos # (Auto) 0.11 Baso # (Auto) 0.02 Immature Gran # (Auto) 0.01 PT 13.9 H INR 1.3 H APTT 26 PTT Ratio 1.0 VBG pH 7.44 H VBG pCO2 36 L VBG pO2 23 VBG HCO3 25 VBG O2 Saturation < 60.0 VBG Base Excess 0.6 Sodium 137 Potassium 3.6 Chloride 101 Carbon Dioxide 24 Anion Gap 12 H BUN 43 H Creatinine 1.97 H Est Cr Clr Drug Dosing 17.6 eGFR 24.62 BUN/Creatinine Ratio 21.8 H Glucose 213 H POC Glucose 231 H Estimat Average Glucose 146 Hemoglobin A1c 6.7 H Calcium 8.7 Phosphorus Magnesium 1.8 Total Bilirubin 1.6 H D Direct Bilirubin 0.4 H AST 49 H ALT 28 Alkaline Phosphatase 55 Ammonia 32.0 Total Creatine Kinase 268 H Troponin I High Sens 46.3 H Total Protein 6.1 Albumin 3.1 L Globulin Albumin/Globulin Ratio Triglycerides 113 Cholesterol 96 LDL Cholesterol, Calc 42 VLDL Cholesterol, Calc 23 HDL Cholesterol 31 Cholesterol/HDL Ratio 3.1 Lipase 29 Ethyl Alcohol mg/dL 02/23/25 02/24/25 02/24/25 20:26 06:06 07:58 WBC 5.19 RBC 2.87 L Hgb 9.0 L Hct 27.1 L MCV 94.4 MCH 31.4 MCHC 33.2 RDW Std Deviation 55.0 H RDW Coeff of Vanita 15.8 H Plt Count 64 L MPV 12.1 Immature Gran % (Auto) Neut % (Auto) Lymph % (Auto) [place] % (Auto) Eos % (Auto) Baso % (Auto) Neut # (Auto) Lymph # (Auto) [place] # (Auto) Eos # (Auto) Baso # (Auto) Immature Gran # (Auto) PT INR APTT PTT Ratio VBG pH VBG pCO2 VBG pO2 VBG HCO3 VBG O2 Saturation VBG Base Excess Sodium 136 Potassium 3.4 L Chloride 103 Carbon Dioxide 25 Anion Gap 8 BUN 41 H Creatinine 1.89 H Est Cr Clr Drug Dosing 18.2 eGFR 25.88 BUN/Creatinine Ratio 21.7 H Glucose 177 H POC Glucose 155 H Estimat Average Glucose Hemoglobin A1c Calcium 8.0 L Phosphorus 3.5 Magnesium 1.7 Total Bilirubin 1.3 H Direct Bilirubin AST 35 ALT 22 Alkaline Phosphatase 47 Ammonia Total Creatine Kinase 153 Troponin I High Sens 39.7 H 28.8 H D Total Protein 5.1 L Albumin 2.6 L Globulin 2.5 Albumin/Globulin Ratio 1.0 Triglycerides Cholesterol LDL Cholesterol, Calc VLDL Cholesterol, Calc HDL Cholesterol Cholesterol/HDL Ratio Lipase Ethyl Alcohol mg/dL < 10.0 Diagnostic Findings Cervical Spine CT 02/23/25 14:58 Exam: CT cervical spine without contrast. Reason for exam: Fall. Previous studies: 09/25/2022 FINDINGS: No acute fracture, dislocation or destructive bony process is evident. Marked abnormal narrowing of the C5-C6, C6-7 and C7-T1 intervertebral disc spaces with endplate sclerosis and spurring seen. Moderate degenerative facet arthropathy is seen. There is generalized osteoporosis. Extensive carotid artery calcifications present. IMPRESSION: 1. Negative for acute bony trauma. 2. 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 Electronically signed by Morro Thomas 02-23-2025 5:39 PM Chest X-Ray 02/23/25 14:58 HISTORY: Trauma due to fall TECHNIQUE: Portable AP radiograph of the chest. COMPARISON: Chest radiograph dated 02/21/2025. FINDINGS: Small focal opacity at the left lung base suspicious for pneumonia. No focal right lung opacity. No pneumothorax or effusion. Normal heart size. Left-sided aortic arch. Midline trachea. Degenerative changes of the shoulders and spine. IMPRESSION: Small focal left lower lung opacity suspicious for pneumonia. Follow-up PA and lateral chest radiographs are recommended in 6 to 8 weeks to ensure resolution. Electronically signed by Joel Pennington 02-23-2025 3:[address] 02/23/25 14:58 Exam: CT facial bones without contrast. Reason for exam: Fall. Previous studies: None FINDINGS: The sinuses remain clear. No air-fluid level is seen. Mandible appears intact without definite acute bony abnormalities. No acute trauma of the nasal bone is identified. Intra-abdominal contacts appear intact. No fracture of the zygoma is seen. IMPRESSION: Negative for acute bony trauma. Electronically signed by Morro Thomas 02-23-2025 5:[address] 02/23/25 14:58 Exam: CT head/brain without contrast: Reason for exam: Fall Previous studies: CT abdomen 1010 at 2024 FINDINGS: Marked diffuse atrophy again seen. Deep white matter lucency consistent with chronic ischemic angiopathy again seen. Area of encephalomalacia consistent with the left parietal/occipital infarct is noted. No acute intracranial mass effect, hemorrhage or edema is seen. Ventricular size is stable. No midline shift noted. Bony calvaria, shows no acute abnormality. Mastoids appear clear. IMPRESSION: 1. Negative for acute intracranial process and unenhanced head CT study. 2. Stable appearance of the left parietal/occipital infarct. 3. Stable appearance of the severe chronic atrophy and chronic ischemic angiopathy. Electronically signed by Morro Thomas 02-23-2025 5:30 PM Humerus X-Ray 02/23/25 14:58 HISTORY: Trauma due to fall. TECHNIQUE: Left humerus, 3 views. COMPARISON: None. FINDINGS: Acute displaced and impacted fracture of the left proximal humerus centered at the humeral neck. Glenohumeral alignment appears preserved. Mild osteoarthritis of the glenohumeral and acromioclavicular joints. No visible pneumothorax. Patchy left basilar opacity could represent pneumonia. IMPRESSION: * Acute mildly displaced and impacted left proximal humerus fracture centered at the surgical neck. * Mild osteoarthritis of the glenohumeral and acromioclavicular joints. * Mild patchy left basilar opacity could represent atelectasis or pneumonia. Electronically signed by Joel Pennington 02-23-2025 3:46 PM Shoulder X-Ray 02/23/25 14:59 HISTORY: Trauma due to fall. TECHNIQUE: Left shoulder, 3 views. COMPARISON: None. FINDINGS: Mildly displaced and impacted fracture of the left proximal humerus centered at the surgical neck. Mild glenohumeral and acromioclavicular joint osteoarthritis. Glenohumeral alignment appears maintained. 3.3 cm masslike opacity at the left lung base requires further evaluation with chest CT. No visible pneumothorax. IMPRESSION: * 3.3 cm masslike opacity at the left lung base. Further evaluation is recommended with contrast-enhanced CT of the chest. * Acute mildly displaced and impacted fractureinvolving the left proximal humerus centered at the surgical neck. Electronically signed by Joel Pennington 02-23-2025 3:49 PM Abdomen/Pelvis CT 02/23/25 16:44 Exam: CT abdomen/pelvis without contrast. Reason for exam: Trauma, patient fell. Previous studies: 02/21/2025. FINDINGS: Lobulated pleural-based mass in the left lower lobe suggesting malignant neoplasm is again seen. Lungs show COPD and chronic fibrotic changes as well. Liver is nodular in contour suggesting chronic hepatic cirrhosis. Clips from cholecystectomy are noted. Pancreas and spleen show no acute abnormality on unenhanced images. Extensive coronary calcifications are present. 6 mm right lower pole renal calculus without hydronephrosis. Left kidney unremarkable. Small segment of dissection suggested in the lower abdominal aorta without significant aneurysmal dilatation at this time. 11 cm cyst in the right hemipelvis are noted. Some gas is seen within the lumen of the urinary bladder suggesting a gas-forming infection or recent instrumentation. Diverticulosis is seen in the sigmoid colon. No evidence of bowel obstruction. Severe degenerative disease in the spine. IMPRESSION: 1. Negative for acute traumatic abnormality on unenhanced CT study abdomen/pelvis. 2. Probable chronic hepatic cirrhosis. 3. Right lower pole renal calculus without hydronephrosis. 4. Persistent large cystic lesion in the pelvis which would be better evaluated with ultrasound if indicated. 5. Diverticulosis. 6. Persistent left lower lobe pleural-based lung mass which may be malignant. Pulmonary medicine follow up recommended. Electronically signed by Morro Thomas 02-23-2025 5:44 PM . PG Care Time/CCT Total # of Minutes Spent Total Time Spent with Patient: Total time spent is greater than 50% in coordination of care (as documented) at patient's floor/unit and/or counseling patient: [place] [address] IN/OBS CONSULT LVL 3,45M Patient Type New Diagnoses Closed fracture of left proximal humerus S42.A
--- NOTE | 2025-02-24 10:13 | Hospitalist Progress Note ---
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 Fall Left humeral fracture Patient presented to the hospital with recurrent falls; x-ray shows acute mildly displaced impacted left proximal humerus fracture Evaluated by orthopedics; recommend nonoperative management and nonweightbearing. PT OT ordered Decompensated liver cirrhosis Hepatic encephalopathy Patient was admitted on 02/21 to 02/23 for concern of upper GI bleed. She left the hospital AGAINST MEDICAL ADVICE before workup was completed. Denies any hematemesis at this time Continue to monitor CBC daily, monitor for hematemesis/hematochezia Continue on lactulose; will add rifaximin Discontinue losartan indefinitively given the appearance of cirrhosis Discontinue metformin given progressive CKD. Demand ischemia-high sensitive troponin elevated on admission; down trended. Denies any chest pain. Monitor on telemetry CKD stage IVavoid nephrotoxic agent. DC losartan and metformin Lung mass-patient does not want any further workup; understand that there is a high likelihood of it being cancerous. Type 2 diabetes mellitusSSI; stop metformin given advancing CKD. I called and updated patient's daughter over the phone. Provided medical update/answered questions. I discussed possibility of rehab if patient is agreeable. I also discussed possibility of home hospice if patient wants to go home . Patient has repeatedly discussed about not wanting medical intervention/workup. Given her advancing age, advanced cirrhosis, lung mass and current clinical presentation; her prognosis is guarded and would qualify for hospice. DNR/DNI DVT prophylaxisSCDs Time spent evaluating patient, direct bedside care, chart review, placing orders, interpretation of diagnostic studies, discussion with consultants, patient, and family members, as well as other required patient management activities is 50 minutes Please note the above document was generated using voice recognition software. It may contain grammatical, syntax or spelling errors. Any formal questions or concerns about the content, text or information contained within the body of this dictation should be directly addressed to the provider for clarification Admission and Anticipated Discharge Date Admission Date: February 23, 2025 Subjective Patient seen and examined at bedside. She reports pain in her left arm. Blood pressure on the lower side. No significant events overnight Review of Systems Review of Systems: All systems reviewed & are unremarkable except as noted in Subjective Physical Exam Physical Exam: Gen: A&O 3 NAD, s HEENT: NCAT, EOMI, not icteric. External ears normal. No rhinorrhea. Moist mucous membranes. Neck: Supple, full range of motion, no observable masses, No meningeal sign. Lungs: No Respiratory distress. CV: RRR, no edema. Abdomen: Soft, nondistended, No rebound tenderness. MSK: Deformity, swelling and overlying bruise on the left shoulder Neuro: Normal Gait, Grossly intact. Results & Data Results & Data Vital Signs (Past 12 Hours) Vital Signs Temp Pulse Pulse Resp BP Pulse Ox O2 Del Method 02/24/25 07:41 37.2 C 75 104/45 L 91 Room Air 02/24/25 03:00 36.5 C 72 18 104/48 L 90 Room Air 02/23/25 23:00 36.5 C 72 18 151/69 H 99 Room Air 02/23/25 22:30 36.5 C 72 18 151/69 H 99 Room Air 02/23/25 22:28 85 (3) Fracture, humerus Encounter type: initial encounter Fracture type: closed Humerus Location: surgical neck Laterality: left (6) Esophageal varices Esophageal varices type: unspecified type
[2025-02-24] MEDS: INSULIN HUMAN NPH SC SCH ×2 (10:36→17:54)
[2025-02-24] MEDS: FOLIC ACID 1 MG TAB PO SCH (10:39)
[2025-02-24] MEDS: CINACALCET HCL 30 MG TAB PO SCH (10:39)
[2025-02-24] MEDS: THIAMINE HCL 100 MG TAB PO SCH (10:40)
[2025-02-24] MEDS: LOSARTAN POTASSIUM 25 MG TAB PO SCH (11:18)
--- NOTE | 2025-02-24 12:50 | Pharmacy Report ---
Pharmacy Glycemic Short Note 2 - Date of Service February 24, 2025 - Glycemic Short BSG Results (Last 24 hours): 02/23/25 02/23/25 02/24/25 15:59 19:49 06:06 Glucose 213 H 177 H POC Glucose 231 H 02/24/25 02/24/25 07:58 12:02 Glucose POC Glucose 155 H 236 H OUTPATIENT ANTIDIABETIC REGIMEN: * Novolin 70/30 20units SQ QAM * metformin 500mg po BID HbA1c: 7% on 01/13/25 ASSESSMENT: * Martine is an 84 year old female who presented to the ED 02/23 for a fall, left shoulder pain, left humerus fracture, and failure to thrive at home. Pharmacy was consulted for glycemic management while she is admitted. * BSG at HS last evening was 231mg/dL. Using data from a previous admission (January 2025), a conservative weight based bolus insulin regimen with a stress between 1 and 2 was started. * Fasting BSG was 155mg/dL this morning. Novolin N 10units SQ was ordered with breakfast and a Novolin N scale (0, 5, or 10 units depending on BSG) was added at supper. * Lunch BSG patrice to 236mg/dL so CR was tightened. PLAN FOR INPATIENT GLYCEMIC CONTROL: * Hold outpatient diabetes medications * Basal insulin * Novolin N 10 units SQ with breakfast and scale (0, 5, or 10 units depending on BSG) at supper * Bolus insulin * NovoLog per scale ACHS or Q6hrs while NPO * Goal Range: Low 120 mg/dL - High 160 mg/dL * Correction Factor: 40 mg/dL/unit * Nutritional / Prandial insulin per carb ratio of 1 unit per 20 grams CHO consumed
[2025-02-24 13:06] LABS: Amphetamines+Metham, Urine Neg (Neg); MDMA (Ecstacy), Urine Neg (Neg); Marijuana, Urine Neg (Neg)
[2025-02-24] MEDS: ATORVASTATIN 40 MG TAB PO SCH (13:25)
[2025-02-24] MEDS ORDERED: INSULIN HUMAN NPH SC SCH (16:30)
[2025-02-25 00:54] LABS: Appearance Urine Clear (Clear); Bacteria Urine Automated None Seen (None Seen); Cast Urine Automated 0-2 /lpf (0-2); Epithelial Cell Urine Auto 0-2 /hpf (0-2); Glucose Urine UA Negative (Negative); RBC Urine Automated 0-2 /hpf (0-2); WBC Urine Automated 21-50 /hpf (0-5)
[2025-02-25 07:14] LABS: Hematocrit (blood only) 24.4 % (37.0-47.0); Hemoglobin 8.4 g/dl (12.0-16.0); Mean Corpuscular Hemoglobin 31.9 pg (25.0-34.0); Mean Corpuscular Volume 92.8 fL (80.0-100.0); Platelet Count 59 K/uL (130-400); RDW Standard Deviation 53.5 fL (36.4-46.3); Red Blood Count 2.63 M/uL (4.20-5.40); White Blood Count 4.95 K/ul (4.8-10.8)
[2025-02-25 07:30] LABS: Alanine Aminotransferase 18.0 U/L (7-52); Albumin Globulin Ratio 1.0 (0.9-2); Albumin Level 2.4 gm/dl (3.4-5.0); Alkaline Phosphatase 44.0 U/L (34-104); Anion Gap 7.0 (3-11); Bilirubin,Total 1.3 mg/dl (0.2-1.0); Blood Urea Nitrogen 41.0 mg/dl (6-23); Calcium 7.7 mg/dl (8.6-10.3); Carbon Dioxide 24.0 mmol/L (21-32); Chloride 102.0 mmol/L (98-107); Creatinine Clr Calc Pharmacy 17.0 ml/min; Globulin 2.4 gm/dl (2.5-4.0); Glucose 147.0 mg/dl (70-99(Fasting)); Potassium 3.7 mmol/L (3.5-5.1); Sodium 133.0 mmol/L (136-145); Total Protein 4.8 gm/dl (6.0-8.3)
[2025-02-25] MEDS ORDERED: STAT IV/IM STA (09:50)
--- NOTE | 2025-02-25 09:50 | Gastrointestinal Consultation ---
Date of Consultation February 25, 2025 Assessment & Plan (1) Hepatic cirrhosis: 84 year old male with history decompensated alcoholic cirrhosis MELD 20 following with [facility] w/ varices (large esophageal/gastric),T2DM, diabetic peripheral angiopathy, hyperlipidemia, hyperparathyroidism, lung nodules, heart failure with preserved ejection fraction, aortic ectasia, superior mesenteric artery stenosis s/p stent in [place] 2022 [place] [facility] [place], superior mesenteric artery stenosis, hypertension, history of CVA, history of CAD, GERD, osteoporosis, visual field loss poststroke who presents for fall, left humeral fracture. GI asked to evaluate for anemia, downtrending HGB w/ report of black stools prior to arrival. No further report of bowel movements, EGD in 2023 w/ evidence of eso and gastric varices. - IV PPI bolus/drip - IV octreotide bolus/drip - NPO after midnight - EGD 02/26 - Trend H&H - Monitor and document GI output - Transfuse PRN per primary team - Follow up with [facility] GI/Hepatology after discharge We appreciate assistance in the management of any serological abnormality and corrections to include: hemoglobin >7, INR <2, platelets >50,000, potassium levels >3.5 but <5.3, and sodium levels within 5 points of the reference range prior to endoscopic evaluation. I spent a total of 60 minutes on the date of service in review of patient's record, and previously obtained information in person and appropriate medical visit, discussion and education of plan, with patient and/or caregiver, placing orders for tests/referral/procedures as medically necessary and documentation of pertinent clinical information in patient's medical records for their visit today. Supervising Physician Co-Signing Physician Notes Possible GI bleed. Hemoglobin down since discharge though she has had a fall with a fracture some of this may be related to that bruising. EGD would be appropriate to evaluate her previously banded varices. Patient has known gastric varices which are not treatable or amenable to banding. On octreotide. Patient also on antibiotics. She does not appear confused. EGD tomorrow. Reviewed with patient and the at the bedside History of Present Illness Reason for Consultation: cirrhosis Requesting Physician: cirrhosis, UGI bleed Attending Physician: Dustin Barros MD History of Present Illness 84 year old male with history decompensated alcoholic cirrhosis MELD 20 following with [facility] w/ varices (large esophageal/gastric),T2DM, diabetic peripheral angiopathy, hyperlipidemia, hyperparathyroidism, lung nodules, heart failure with preserved ejection fraction, aortic ectasia, superior mesenteric artery stenosis s/p stent in Apr 2022 at [facility] [place], superior mesenteric artery stenosis, hypertension, history of CVA, history of CAD, GERD, osteoporosis, visual field loss poststroke who presents for fall and left shoulder pain 2/2 failure to thrive at home, left humerus fracture. GI was asked to evaluate for GI bleed. Pt was seen and evaluated, chart reviewed. Family at bedside. She suggests she had black stools about 5 days ago. These were present for about 24- 48 hours. Last BM was on 02/21. No abd pain. No nausea/vomiting. No fever, chills, CP, SOB. 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 Banded. - IGV1, varices located in the fundus, without bleeding. - Portal hypertensive gastropathy. - Normal duodenal bulb and second portion of the duodenum. - No specimens collected. Allergies Allergy/AdvReac Type Severity Reaction Status Date / Time nickel Allergy "Cheap Verified 02/23/25 16:46 metal = rash" Home Medications Medication Instructions Recorded Confirmed Type atorvastatin 40 mg tablet 40 mg PO .AFTERNOON 06/01/23 02/23/25 History biotin 1 mg capsule 1 mg PO DAILY 06/01/23 02/23/25 History carvedilol 3.125 mg tablet 6.25 mg PO BID 06/01/23 02/23/25 History cinacalcet 30 mg tablet (Sensipar) 30 mg PO DAILY 06/01/23 02/23/25 History insulin human U-100 NPH-regulr 0 unit subcut QAM 06/01/23 02/23/25 History 70-30 mix 100 unit/mL subcutaneous susp (Novolin 70/30 U-100 Insulin) losartan 25 mg tablet 25 mg PO DAILY 06/01/23 02/23/25 History melatonin 10 mg tablet 10 mg PO HS Insomnia 06/01/23 02/23/25 History metformin 1,000 mg tablet 500 mg PO BID 06/01/23 02/23/25 History torsemide 20 mg tablet 20 mg PO DAILY 06/01/23 02/23/25 History vitamin B complex 1 cap PO DAILY 06/01/23 02/23/25 History magnesium oxide 400 mg PO BID #60 caps 06/08/23 02/23/25 Rx omeprazole 40 mg capsule,delayed 40 mg PO BID 02/21/25 02/23/25 History release oxycodone 5 mg tablet 5 mg PO QID PRN Pain 02/23/25 02/23/25 History tramadol 50 mg tablet 50 mg PO BID PRN pain #11 tabs 02/23/25 Rx Patient History Medical History Encounter for pre-operative examination CHF (congestive heart failure) Anemia Osteoporosis GERD (gastroesophageal reflux disease) Hyperparathyroidism Hypertension Poor historian Abnormal EKG pt unaware Acute respiratory failure CVA (cerebral vascular accident) Jan 2022 per pt > has some right hand weakness > does not follow with neuro Weakness of right upper extremity s/p CVA, just on occasion Acute heart failure with preserved ejection fraction (HFpEF) pt unaware Acute respiratory failure with hypoxia pt unaware Surgical History History of colonoscopy History of endovascular stent graft for abdominal aortic aneurysm unsure if this is exactly what she has, but had done in Apr 2022 at [place] she thinks it was for AAA S/P tonsillectomy S/P hysterectomy S/P appendectomy History of heart artery stent placed 1994 S/P cholecystectomy History of cataract surgery bilat Family History Mother , age 70 of a stroke and congestive heart failure Stroke CHF (congestive heart failure) Father , in his 70s of an [place] Myocardial infarction Social History Smoking Status: Former smoker Tobacco Type: Cigarettes packs per day: 4; Second Hand Exposure: No; Do You Dip or Chew Tobacco: No; Hx Alcohol Use: Yes Alcohol type: beer Alcohol Intake Frequency Comment: up to 1 beer to her day. Hx Substance Use: No Preferred Language: Occitan Communication Ability: Effective Structural Draftsman Required: No Beliefs That Will Affect Care: None marital status: Current Living Situation: Spouse Current Living Situation Comment: Home with current occupational status: retired current occupation: Multiple different jobs retiring in her 50s. Feels Safe at Home: Yes Assistive Devices: Walker and Wheelchair Review of Systems Review of Systems: All other findings negative except as noted in HPI. Physical Exam Constitutional: WD/WN, vitals as above Gastrointestinal (Abdomen): normal bowel sounds, soft, nontender, no hepatosplenomegaly Skin: no rashes, warm and dry Results & Data Vital Signs (Past 12 Hours) Vital Signs Temp Pulse Pulse Resp BP Pulse Ox O2 Del Method 02/25/25 08:22 138/61 02/25/25 08:20 98.6 F 80 20 82/48 L 97 Room Air 02/25/25 07:22 83 02/25/25 03:17 99.3 F 80 18 115/54 L 93 Room Air 02/25/25 00:22 Room Air 02/24/25 23:23 98.6 F 81 18 119/56 L 94 Room Air 02/24/25 22:07 74 Laboratory Results 02/25/25 02/25/25 02/25/25 Range/Units 08:30 06:21 00:40 WBC 4.95 (4.8-10.8) K/ul RBC 2.63 L (4.20-5.40) M/uL Hgb 8.4 L (12.0-16.0) g/dl Hct 24.4 L (37.0-47.0) % MCV 92.8 (80.0-100.0) fL MCH 31.9 (25.0-34.0) pg MCHC 34.4 (32.0-36.0) g/dL RDW Std Deviation 53.5 H (36.4-46.3) fL RDW Coeff of Vanita 15.7 H (11.5-14.5) % Plt Count 59 L (130-400) K/uL MPV 12.0 (9.4-12.4) fL Sodium 133 L (136-145) mmol/L Potassium 3.7 (3.5-5.1) mmol/L Chloride 102 (98-107) mmol/L Carbon Dioxide 24 (21-32) mmol/L Anion Gap 7 (3-11) BUN 41 H (6-23) mg/dl Creatinine 2.03 H (0.6-1.2) mg/dl Est Cr Clr Drug Dosing 17.0 ml/min eGFR 23.75 BUN/Creatinine Ratio 20.2 H (10-20) Glucose 147 H (70-99(Fasting)) mg/dl POC Glucose 171 H (70-99) mg/dl Calcium 7.7 L (8.6-10.3) mg/dl Total Bilirubin 1.3 H (0.2-1.0) mg/dl AST 30 (13-39) U/L ALT 18 (7-52) U/L Alkaline Phosphatase 44 (34-104) U/L Total Protein 4.8 L (6.0-8.3) gm/dl Albumin 2.4 L (3.4-5.0) gm/dl Globulin 2.4 L (2.5-4.0) gm/dl Albumin/Globulin Ratio 1.0 (0.9-2) Urine Color Yellow Urine Appearance Clear (Clear) Urine pH 6.5 (4.5-7.5) Ur Specific [place] 1.009 (1.000-1.030) Urine Protein Negative (Negative) Urine Glucose (UA) Negative (Negative) Urine Ketones Negative (Negative) Urine Blood Negative (Negative) Urine Nitrite Negative (Negative) Urine Bilirubin Negative (Negative) Urine Urobilinogen Negative (Negative) Ur Leukocyte Esterase 2+ H (Negative) Urine WBC (Auto) 21-50 H (0-5) /hpf Urine RBC (Auto) 0-2 (0-2) /hpf U Hyaline Cast (Auto) 0-2 (0-2) /lpf U Epithel Cells (Auto) 0-2 (0-2) /hpf Urine Bacteria (Auto) None Seen (None Seen) Urine Comment Urine Opiates Screen (Neg) Ur Methadone, Qual (Neg) Urine Fentanyl Screen (Neg) Urine Barbiturates (Neg) Ur Phencyclidine (PCP) (Neg) U Amphetamin/Meth Scrn (Neg) MDMA (Ecstasy) Screen (Neg) U Benzodiazepines Scrn (Neg) Ur Cocaine Metabolite (Neg) U Marijuana (THC) Screen (Neg) 02/24/25 02/24/25 02/24/25 Range/Units 20:01 16:57 12:15 WBC (4.8-10.8) K/ul RBC (4.20-5.40) M/uL Hgb (12.0-16.0) g/dl Hct (37.0-47.0) % MCV (80.0-100.0) fL MCH (25.0-34.0) pg MCHC (32.0-36.0) g/dL RDW Std Deviation (36.4-46.3) fL RDW Coeff of Vanita (11.5-14.5) % Plt Count (130-400) K/uL MPV (9.4-12.4) fL Sodium (136-145) mmol/L Potassium (3.5-5.1) mmol/L Chloride (98-107) mmol/L Carbon Dioxide (21-32) mmol/L Anion Gap (3-11) BUN (6-23) mg/dl Creatinine (0.6-1.2) mg/dl Est Cr Clr Drug Dosing ml/min eGFR BUN/Creatinine Ratio (10-20) Glucose (70-99(Fasting)) mg/dl POC Glucose 121 H 137 H (70-99) mg/dl Calcium (8.6-10.3) mg/dl Total Bilirubin (0.2-1.0) mg/dl AST (13-39) U/L ALT (7-52) U/L Alkaline Phosphatase (34-104) U/L Total Protein (6.0-8.3) gm/dl Albumin (3.4-5.0) gm/dl Globulin (2.5-4.0) gm/dl Albumin/Globulin Ratio (0.9-2) Urine Color Urine Appearance (Clear) Urine pH (4.5-7.5) Ur Specific [place] (1.000-1.030) Urine Protein (Negative) Urine Glucose (UA) (Negative) Urine Ketones (Negative) Urine Blood (Negative) Urine Nitrite (Negative) Urine Bilirubin (Negative) Urine Urobilinogen (Negative) Ur Leukocyte Esterase (Negative) Urine WBC (Auto) (0-5) /hpf Urine RBC (Auto) (0-2) /hpf U Hyaline Cast (Auto) (0-2) /lpf U Epithel Cells (Auto) (0-2) /hpf Urine Bacteria (Auto) (None Seen) Urine Comment Urine Opiates Screen Neg (Neg) Ur Methadone, Qual Neg (Neg) Urine Fentanyl Screen Neg (Neg) Urine Barbiturates Neg (Neg) Ur Phencyclidine (PCP) Neg (Neg) U Amphetamin/Meth Scrn Neg (Neg) MDMA (Ecstasy) Screen Neg (Neg) U Benzodiazepines Scrn Neg (Neg) Ur Cocaine Metabolite Neg (Neg) U Marijuana (THC) Screen Neg (Neg) 02/24/25 Range/Units 12:02 WBC (4.8-10.8) K/ul RBC (4.20-5.40) M/uL Hgb (12.0-16.0) g/dl Hct (37.0-47.0) % MCV (80.0-100.0) fL MCH (25.0-34.0) pg MCHC (32.0-36.0) g/dL RDW Std Deviation (36.4-46.3) fL RDW Coeff of Vanita (11.5-14.5) % Plt Count (130-400) K/uL MPV (9.4-12.4) fL Sodium (136-145) mmol/L Potassium (3.5-5.1) mmol/L Chloride (98-107) mmol/L Carbon Dioxide (21-32) mmol/L Anion Gap (3-11) BUN (6-23) mg/dl Creatinine (0.6-1.2) mg/dl Est Cr Clr Drug Dosing ml/min eGFR BUN/Creatinine Ratio (10-20) Glucose (70-99(Fasting)) mg/dl POC Glucose 236 H (70-99) mg/dl Calcium (8.6-10.3) mg/dl Total Bilirubin (0.2-1.0) mg/dl AST (13-39) U/L ALT (7-52) U/L Alkaline Phosphatase (34-104) U/L Total Protein (6.0-8.3) gm/dl Albumin (3.4-5.0) gm/dl Globulin (2.5-4.0) gm/dl Albumin/Globulin Ratio (0.9-2) Urine Color Urine Appearance (Clear) Urine pH (4.5-7.5) Ur Specific [place] (1.000-1.030) Urine Protein (Negative) Urine Glucose (UA) (Negative) Urine Ketones (Negative) Urine Blood (Negative) Urine Nitrite (Negative) Urine Bilirubin (Negative) Urine Urobilinogen (Negative) Ur Leukocyte Esterase (Negative) Urine WBC (Auto) (0-5) /hpf Urine RBC (Auto) (0-2) /hpf U Hyaline Cast (Auto) (0-2) /lpf U Epithel Cells (Auto) (0-2) /hpf Urine Bacteria (Auto) (None Seen) Urine Comment Urine Opiates Screen (Neg) Ur Methadone, Qual (Neg) Urine Fentanyl Screen (Neg) Urine Barbiturates (Neg) Ur Phencyclidine (PCP) (Neg) U Amphetamin/Meth Scrn (Neg) MDMA (Ecstasy) Screen (Neg) U Benzodiazepines Scrn (Neg) Ur Cocaine Metabolite (Neg) U Marijuana (THC) Screen (Neg) PG Care Time/CCT Total # of Minutes Spent Total Time Spent with Patient: Total time spent is greater than 50% in coordination of care (as documented) at patient's floor/unit and/or counseling patient: Coding Level of Care Code 97567 INT INP/OBS CARE MIN Diagnoses Hepatic cirrhosis K74.60
[2025-02-25] MEDS: INSULIN HUMAN NPH SC SCH (10:45)
[2025-02-25] MEDS: OCTREOTIDE ACETATE 50 MCG in SYRINGE 9.5 ML IV STA (10:46)
--- NOTE | 2025-02-25 10:47 | Hospitalist Progress Note ---
Date of Service February 25, 2025 Assessment & Plan (1) Elevated troponin: (2) Recurrent falls: (3) Fracture, humerus: (4) COPD with emphysema: (5) Pulmonary mass: (6) Esophageal varices: (7) HTN (hypertension): (8) Hyperparathyroidism: Plan 84 yo female with pmhx of decompensated alcoholic cirrhosis c/b varices (large esophageal/gastric), DM II, diabetic peripheral angiopathy, hyperlipidemia, hyperparathyroidism, lung nodules, heart failure with preserved ejection fra ction, aortic ectasia, superior mesenteric artery stenosis [place]/p stent in [place] 20[place] [facility] [place] rev[place]ized in Apr 2023, superior mesenteric artery stenosis, hypertension, history of CVA, history of CAD, GERD, history of pericolonic abscess, history of hepatic cirrhosis, osteoporosis, visual field loss poststroke who presents for fall and left shoulder pain 2/2 failure to thrive at home, left humerus fracture. Fall Left humeral fracture Patient presented to the hospital with recurrent falls; x-ray shows acute mildly displaced impacted left proximal humerus fracture Evaluated by orthopedics; recommend nonoperative management and nonweightbearing. PT OT Recommend rehab; Continue pain control with Tylenol and oxycodone Decompensated liver cirrhosis Hepatic encephalopathy Possible Upper GI bleed Patient was admitted on 02/21 to 02/23 for concern of upper GI bleed. She left the hospital AGAINST MEDICAL ADVICE before workup was completed. Denies any hematemesis at this time Hemoglobin down trended from 12.7 on 02/21 to 8.4 today. Started on octreotide and Protonix as per GI. Plan for endoscopy tomorrow. Continue to monitor CBC daily, monitor for hematemesis/hematochezia Continue on lactulose; will add rifaximin Discontinue losartan indefinitely given the appearance of cirrhosis Discontinue metformin given progressive CKD. Suicidal ideationpatient reported suicidal ideation to RN on 02/24; is on one-to-one precautions. Patient reported that she said that due to frustration of the situation; has no intention of harming herself. Behavioral health liaison has been consulted; appreciate recommendation Possible left-sided facial droop- patient had a visitor today; reported that patient had slurred speech and possible left-sided facial droop. No focal neurological symptoms appreciated on examined. Patient has possible GI bleed;; will avoid aspirin. Continue on Lipitor. Will obtain CT head without contrast. Demand ischemia-high sensitive troponin elevated on admission; down trended. Denies any chest pain. Monitor on telemetry CKD stage IVavoid nephrotoxic agent. DC losartan and metformin Lung mass-patient does not want any further workup; understand that there is a high likelihood of it being cancerous. Type 2 diabetes mellitusSSI; stop metformin given advancing CKD. Discussed with patient's daughter over the phone today. She wants patient to go to rehab first before coming back home. We discussed possibility of of hospice care after rehab given patient's advancing age, advanced cirrhosis, lung mass and current clinical presentation; she is agreeable. DNR/DNI DVT prophylaxisSCDs Time spent evaluating patient, direct bedside care, chart review, placing orders, interpretation of diagnostic studies, discussion with consultants, patient, and family members, as well as other required patient management activities is 50 minutes Please note the above document was generated using voice recognition software. It may contain grammatical, syntax or spelling errors. Any formal questions or concerns about the content, text or information contained within the body of this dictation should be directly addressed to the provider for clarification Admission and Anticipated Discharge Date Admission Date: February 23, 2025 Subjective Patient seen and examined at bedside. She is comfortable; not in distress. Patient was placed on one-to-one supervision as she reported that she wanted to . I discussed this with the patient; she reports that she was frustrated with the overall situation. However, she reports that she has no intention of harming herself. Review of Systems Review of Systems: All systems reviewed & are unremarkable except as noted in Subjective Physical Exam Physical Exam: Gen: A&O 3 NAD, s HEENT: NCAT, EOMI, not icteric. External ears normal. No rhinorrhea. Moist mucous membranes. Neck: Supple, full range of motion, no observable masses, No meningeal sign. Lungs: No Respiratory distress. CV: RRR, no edema. Abdomen: Soft, nondistended, No rebound tenderness. MSK: Deformity, swelling and overlying bruise on the left shoulder Neuro: Normal Gait, Grossly intact. Results & Data Results & Data Vital Signs (Past 12 Hours) Vital Signs Temp Pulse Pulse Resp BP Pulse Ox O2 Del Method 02/25/25 08:22 138/61 02/25/25 08:20 37.0 C 80 20 82/48 L 97 Room Air 10/14/25 07:22 83 02/25/25 03:17 37.4 C 80 18 115/54 L 93 Room Air 02/25/25 00:22 Room Air 02/24/25 23:23 37.0 C 81 18 119/56 L 94 Room Air (3) Fracture, humerus Encounter type: initial encounter Fracture type: closed Humerus Location: surgical neck Laterality: left (6) Esophageal varices Esophageal varices type: unspecified type
[2025-02-25] MEDS: OCTREOTIDE ACETATE 500 MCG in SODIUM CHLORIDE 0.9% 100 ML IV SCH (10:57)
--- NOTE | 2025-02-25 11:28 | CT Scan Report ---
CT SCAN OF THE BRAIN WITHOUT IV CONTRAST CLINICAL HISTORY: Left-sided facial droop. COMPARISON STUDY: MRI of the brain January 12, 2025. Head CT February 23, 2025. TECHNIQUE: Unenhanced axial CT scan of the brain was performed from the vertex to the skull base. A dose lowering technique was utilized adhering to the principles of ALARA. CT DOSE: 625.8 mGy.cm FINDINGS: No acute intracranial hemorrhage, midline shift or mass effect is present. Prominence of th e extra-axial spaces is unchanged and due to atrophy. White matter hypodensities are unchanged and fa vor small vessel disease. Foci of encephalomalacia suggestive of old infarcts within the left parieta l and occipital lobes are unchanged. There are no findings to suggest acute dural sinus thrombosis or acute territorial infarct. There are no calvarial fractures. IMPRESSION: No acute intracranial findings. No change in appearance of the brain. ACT 112: Negative or not required by law. Electronically signed by: Karson Goddard M.D. 02/25/2025 11:27 AM
[2025-02-26 07:26] LABS: Hematocrit (blood only) 25.1 % (37.0-47.0); Hemoglobin 8.6 g/dl (12.0-16.0); Mean Corpuscular Hemoglobin 32.0 pg (25.0-34.0); Mean Corpuscular Volume 93.3 fL (80.0-100.0); Platelet Count 58 K/uL (130-400); RDW Standard Deviation 53.9 fL (36.4-46.3); Red Blood Count 2.69 M/uL (4.20-5.40); White Blood Count 4.11 K/ul (4.8-10.8)
[2025-02-26] MEDS ORDERED: Nursing to Pharmacy Communication SCH ×2 (07:30→17:45)
[2025-02-26 07:57] LABS: Alanine Aminotransferase 18.0 U/L (7-52); Albumin Globulin Ratio 0.8 (0.9-2); Albumin Level 2.2 gm/dl (3.4-5.0); Alkaline Phosphatase 45.0 U/L (34-104); Anion Gap 5.0 (3-11); Bilirubin,Total 1.2 mg/dl (0.2-1.0); Blood Urea Nitrogen 42.0 mg/dl (6-23); Calcium 7.4 mg/dl (8.6-10.3); Carbon Dioxide 25.0 mmol/L (21-32); Chloride 102.0 mmol/L (98-107); Creatinine Clr Calc Pharmacy 17.1 ml/min; Globulin 2.7 gm/dl (2.5-4.0); Glucose 114.0 mg/dl (70-99(Fasting)); Potassium 3.7 mmol/L (3.5-5.1); Sodium 132.0 mmol/L (136-145); Total Protein 4.9 gm/dl (6.0-8.3)
--- NOTE | 2025-02-26 09:21 | Gastroenterology Progress Note ---
Date of Service February 26, 2025 Assessment & Plan (1) Hepatic cirrhosis: Plan: 84 year old male with history decompensated alcoholic cirrhosis MELD 20 following with [facility] GI w/ varices (large esophageal/gastric),T2DM, diabetic peripheral angiopathy, hyperlipidemia, hyperparathyroidism, lung nodules, heart failure with preserved ejection fraction, aortic ectasia, superior mesenteric artery stenosis s/p stent in Apr 2022 at [facility] [place], superior mesenteric artery stenosis, hypertension, history of CVA, history of CAD, GERD, osteoporosis, visual field loss poststroke who presents for fall, left humeral fracture. GI asked to evaluate for anemia, downtrending HGB w/ report of black stools prior to arrival. No further report of bowel movements, EGD in 2023 w/ evidence of eso and gastric varices. - NPO for EGD - IV PPI bolus/drip - IV octreotide bolus/drip - Trend H&H - Monitor and document GI output - Transfuse PRN per primary team - Follow up with [facility] GI/Hepatology after discharge We appreciate assistance in the management of any serological abnormality and corrections to include: hemoglobin >7, INR <2, platelets >50,000, potassium levels >3.5 but <5.3, and sodium levels within 5 points of the reference range prior to endoscopic evaluation. Admission and Anticipated Discharge Date Admission Date: February 23, 2025 Supervising Physician Co-Signing Physician Notes No clinical bleeding. Patient agreeable upper endoscopy. Evaluate for persistent varices portal gastropathy bleeding peptic ulcer disease. Patient has gastric varices these are not amenable to endoscopic treatment. With a fracture of her humerus patient will be done on her back. Subjective NPO for EGD. Brown stool doucmented. Review of Systems Review of Systems: All other findings negative except as noted in HPI. Physical Exam Gastrointestinal (Abdomen): normal bowel sounds, soft, nontender, no hepatosplenomegaly Results & Data Results & Data Vital Signs (Past 12 Hours) Vital Signs Temp Pulse Pulse Resp BP Pulse Ox O2 Del Method 02/26/25 07:22 98.1 F 70 18 125/54 L 95 Room Air 02/26/25 05:58 71 02/26/25 03:16 98.4 F 71 16 114/55 L 95 Room Air 02/25/25 22:01 98.6 F 82 16 133/65 96 Room Air 02/25/25 21:42 73 Laboratory Results 02/26/25 02/26/25 02/26/25 Range/Units 08:16 07:19 06:45 WBC 4.11 L (4.8-10.8) K/ul RBC 2.69 L (4.20-5.40) M/uL Hgb 8.6 L (12.0-16.0) g/dl Hct 25.1 L (37.0-47.0) % MCV 93.3 (80.0-100.0) fL MCH 32.0 (25.0-34.0) pg MCHC 34.3 (32.0-36.0) g/dL RDW Std Deviation 53.9 H (36.4-46.3) fL RDW Coeff of Vanita 15.9 H (11.5-14.5) % Plt Count 58 L (130-400) K/uL MPV 12.2 (9.4-12.4) fL Sodium 132 L (136-145) mmol/L Potassium 3.7 (3.5-5.1) mmol/L Chloride 102 (98-107) mmol/L Carbon Dioxide 25 (21-32) mmol/L Anion Gap 5 (3-11) BUN 42 H (6-23) mg/dl Creatinine 2.02 H (0.6-1.2) mg/dl Est Cr Clr Drug Dosing 17.1 ml/min eGFR 23.89 BUN/Creatinine Ratio 20.8 H (10-20) Glucose 114 H (70-99(Fasting)) mg/dl POC Glucose 118 H (70-99) mg/dl Calcium 7.4 L (8.6-10.3) mg/dl Total Bilirubin 1.2 H (0.2-1.0) mg/dl AST 30 (13-39) U/L ALT 18 (7-52) U/L Alkaline Phosphatase 45 (34-104) U/L Total Protein 4.9 L (6.0-8.3) gm/dl Albumin 2.2 L (3.4-5.0) gm/dl Globulin 2.7 (2.5-4.0) gm/dl Albumin/Globulin Ratio 0.8 L (0.9-2) Hepatitis A IgM Ab Pending Hep Bs Antigen Pending Hep B Core IgM Ab Pending Hepatitis C Antibody Pending 02/25/25 02/25/25 02/25/25 Range/Units 19:48 17:16 11:27 WBC (4.8-10.8) K/ul RBC (4.20-5.40) M/uL Hgb (12.0-16.0) g/dl Hct (37.0-47.0) % MCV (80.0-100.0) fL MCH (25.0-34.0) pg MCHC (32.0-36.0) g/dL RDW Std Deviation (36.4-46.3) fL RDW Coeff of Vanita (11.5-14.5) % Plt Count (130-400) K/uL MPV (9.4-12.4) fL Sodium (136-145) mmol/L Potassium (3.5-5.1) mmol/L Chloride (98-107) mmol/L Carbon Dioxide (21-32) mmol/L Anion Gap (3-11) BUN (6-23) mg/dl Creatinine (0.6-1.2) mg/dl Est Cr Clr Drug Dosing ml/min eGFR BUN/Creatinine Ratio (10-20) Glucose (70-99(Fasting)) mg/dl POC Glucose 86 88 278 H (70-99) mg/dl Calcium (8.6-10.3) mg/dl Total Bilirubin (0.2-1.0) mg/dl AST (13-39) U/L ALT (7-52) U/L Alkaline Phosphatase (34-104) U/L Total Protein (6.0-8.3) gm/dl Albumin (3.4-5.0) gm/dl Globulin (2.5-4.0) gm/dl Albumin/Globulin Ratio (0.9-2) Hepatitis A IgM Ab Hep Bs Antigen Hep B Core IgM Ab Hepatitis C Antibody PG Care Time/CCT Total # of Minutes Spent Total Time Spent with Patient: Total time spent is greater than 50% in coordination of care (as documented) at patient's floor/unit and/or counseling patient: Coding Level of Care Code None Diagnoses Hepatic cirrhosis K74.60
[2025-02-26 10:49] LABS: Hep B Surface Ag with confirm Negative (Negative)
[2025-02-26 10:54] LABS: Hep C Ab Rflx HepCQuant RNA Negative (Negative)
--- NOTE | 2025-02-26 11:47 | Hospitalist Progress Note ---
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 Fall Left humeral fracture Patient presented to the hospital with recurrent falls; x-ray shows acute mildly displaced impacted left proximal humerus fracture Evaluated by orthopedics; recommend nonoperative management and nonweightbearing . PT OT Recommend rehab; Continue pain control with Tylenol and oxycodone Decompensated liver cirrhosis Hepatic encephalopathy Possible Upper GI bleed Patient was admitted on 02/21 to 02/23 for concern of upper GI bleed. She left the hospital AGAINST MEDICAL ADVICE before workup was completed. Denies any hematemesis at this time Hemoglobin down trended from 12.7 on 02/21 to 8.4 on 02/25. Started on octreotide and Protonix as per GI. Plan for endoscopy today. Continue to monitor CBC daily, monitor for hematemesis/hematochezia Continue on lactulose and rifaximin Brown yesterday, Hb slightly up at 8.6 today. Discontinue losartan indefinitely given the appearance of cirrhosis Discontinue metformin given progressive CKD. Suicidal ideationpatient reported suicidal ideation to RN on 02/24; was on one-to-one precautions. Patient reported that she said that due to frustration of the situation; has no intention of harming herself. Behavioral health liaison has been consulted; appreciate recommendation Possible left-sided facial droop- patient had a visitor 02/25; reported that patient had slurred speech and possible left-sided facial droop. No focal neurological symptoms were appreciated on exam. Neg CT head without contrast. Patient has possible GI bleed;; will avoid aspirin. Continue on Lipitor. Demand ischemia-high sensitive troponin elevated on admission; down trended. Denies any chest pain. Monitor on telemetry CKD stage IVavoid nephrotoxic agent. DC losartan and metformin Lung mass-patient does not want any further workup; understand that there is a high likelihood of it being cancerous. Type 2 diabetes mellitusSSI; stop metformin given advancing CKD. Per Prior attending - Discussed with patient's daughter over the phone 02/25. She wants patient to go to rehab first before coming back home. We discussed possibility of of hospice care after rehab given patient's advancing age, advanced cirrhosis, lung mass and current clinical presentation; she is agreeable. DNR/DNI DVT prophylaxisSCDs Dispo: pending EGD and GI clearance. to rehab when cleared. Please note the above document was generated using voice recognition software. It may contain grammatical, syntax or spelling errors. Any formal questions or concerns about the content, text or information contained within the body of this dictation should be directly addressed to the provider for clarification Admission and Anticipated Discharge Date Admission Date: February 23, 2025 Subjective Patient seen and examined at bedside. She is comfortable; not in distress. per RN brown stool yesterday afternoon, no blood or black in stool. Pt denies pain or burn while passing urine, denies belly pain. is NPO for EGD today. Physical Exam Physical Exam: Gen: A&O 3 NAD, HEENT: NCAT, EOMI, not icteric. External ears normal. No rhinorrhea. Moist mucous membranes. Neck: Supple, full range of motion, no observable masses, No meningeal sign. Lungs: No Respiratory distress. CV: RRR, no edema. Abdomen: Soft, nondistended, No rebound tenderness. MSK: Deformity, swelling and overlying bruise on the left shoulder, LUE In sling. Neuro: Normal Gait, Grossly intact. Results & Data Results & Data Vital Signs (Past 12 Hours) Vital Signs Temp Pulse Pulse Resp BP Pulse Ox O2 Del Method 02/26/25 07:22 36.7 C 70 18 125/54 L 95 Room Air 02/26/25 05:58 71 02/26/25 03:16 36.9 C 71 16 114/55 L 95 Room Air (3) Fracture, humerus Encounter type: initial encounter Fracture type: closed Humerus Location: surgical neck Laterality: left (6) Esophageal varices Esophageal varices type: unspecified type
[2025-02-26] MEDS: INSULIN ASPART PER UNIT CHARGE SC SCH ×2 (12:34→21:31)
--- NOTE | 2025-02-26 13:43 | Pharmacy Report ---
Pharmacy Glycemic Short Note 2 - Date of Service February 26, 2025 - Glycemic Short BSG Results (Last 24 hours): 02/25/25 02/25/25 02/26/25 17:16 19:48 06:45 Glucose 114 H POC Glucose 88 86 02/26/25 02/26/25 07:19 12:33 Glucose POC Glucose 118 H 127 H OUTPATIENT ANTIDIABETIC REGIMEN: * Novolin 70/30 20units SQ QAM * metformin 500mg po BID HbA1c: 7% on 01/13/25 ASSESSMENT: 02/26 * Martine received 19 units of insulin yesterday (10 were basal) * Fasting BSG this AM within goal range, will continue current regimen. Hold insulin NPH this AM due to NPO status for EGD. Scale at dinner time based on BSG. * Will trial tighter breakfast NovoLog parameters due to elevated lunchtime BSGs. She is on an octreotide drip (mixed in D5W) at this time. 02/24 * Martine is an 84 year old female who presented to the ED 02/23 for a fall, left shoulder pain, left humerus fracture, and failure to thrive at home. Pharmacy was consulted for glycemic management while she is admitted. * BSG at HS last evening was 231mg/dL. Using data from a previous admission (January 2025), a conservative weight based bolus insulin regimen with a stress between 1 and 2 was started. * Fasting BSG was 155mg/dL this morning. Novolin N 10units SQ was ordered with breakfast and a Novolin N scale (0, 5, or 10 units depending on BSG) was added at supper. * Lunch BSG patrice to 236mg/dL so CR was tightened. PLAN FOR INPATIENT GLYCEMIC CONTROL: * Hold outpatient diabetes medications * Basal insulin * Novolin N 10 units SQ with breakfast and scale (0, 5, or 10 units depending on BSG) at supper * Bolus insulin- with breakfast * NovoLog per scale QDB * Goal Range: Low 120 mg/dL - High 160 mg/dL * Correction Factor: 35 mg/dL/unit * Nutritional / Prandial insulin per carb ratio of 1 unit per 15 grams CHO consumed * Bolus insulin- with lunch, dinner and bedtime * NovoLog per scale QDL, QDD, and HS or Q6H when NPO * Goal Range: Low 120 mg/dL - High 160 mg/dL * Correction Factor: 45 mg/dL/unit * Nutritional / Prandial insulin per carb ratio of 1 unit per 20 grams CHO consumed
--- NOTE | 2025-02-26 15:42 | Anesthesiology Consultation ---
Date of Service February 26, 2025 Assessment & Plan Chart Review Chart Review: Acceptable Risk for Surgery and Patient NOT seen in Pre Admission Testing Consults Requested none ASA ASA4 Proposed Anesthesia Anesthesia Type: MAC Risk / Benefits Reviewed With: PT / POA / Parent / Guardian, Accepts Plan and Informed Consent Obtained History Surgery Operation Date: 02/26/25 16:30 Proposed Procedures p Esophagogastroduodenoscopy Dr. Suresh Prince MD Height/Weight Height: 5 ft Weight: 62.142 kg Allergies Allergy/AdvReac Type Severity Reaction Status Date / Time nickel Allergy "Cheap Verified 02/23/25 16:46 metal = rash" Medications Home Medications Medication Instructions Recorded Confirmed Last Taken atorvastatin 40 mg tablet 40 mg PO .AFTERNOON 06/01/23 02/23/25 Unknown biotin 1 mg capsule 1 mg PO DAILY 06/01/23 02/23/25 Unknown carvedilol 3.125 mg tablet 6.25 mg PO BID 06/01/23 02/23/25 Unknown cinacalcet 30 mg tablet (Sensipar) 30 mg PO DAILY 06/01/23 02/23/25 Unknown insulin human U-100 NPH-regulr 0 unit subcut QAM 06/01/23 02/23/25 Unknown 70-30 mix 100 unit/mL subcutaneous susp (Novolin 70/30 U-100 Insulin) losartan 25 mg tablet 25 mg PO DAILY 06/01/23 02/23/25 Unknown melatonin 10 mg tablet 10 mg PO HS Insomnia 06/01/23 02/23/25 Unknown metformin 1,000 mg tablet 500 mg PO BID 06/01/23 02/23/25 Unknown torsemide 20 mg tablet 20 mg PO DAILY 06/01/23 02/23/25 Unknown vitamin B complex 1 cap PO DAILY 06/01/23 02/23/25 Unknown magnesium oxide 400 mg PO BID #60 caps 06/08/23 02/23/25 Unknown omeprazole 40 mg capsule,delayed 40 mg PO BID 02/21/25 02/23/25 Unknown release oxycodone 5 mg tablet 5 mg PO QID PRN Pain 02/23/25 02/23/25 02/23/25 10:00 tramadol 50 mg tablet 50 mg PO BID PRN pain #11 tabs 02/23/25 Unknown Active Medications Generic Name Dose Route Start Last Admin Trade Name Freq PRN Reason Stop Dose Admin Atorvastatin Calcium 40 mg 10/13/25 14:00 02/26/25 14:05 Atorvastatin 40 Mg Tab PO 03/26/25 13:59 40 mg DAILY@1400 DESIREE Administration Carvedilol 6.25 mg 02/23/25 22:30 02/26/25 08:52 Carvedilol 6.25 Mg Tab PO 03/25/25 22:29 6.25 mg BID DESIREE Administration Cinacalcet 30 mg 02/24/25 09:00 02/26/25 08:54 Cinacalcet Hcl 30 Mg Tab PO 03/26/25 08:59 30 mg DAILY DESIREE Administration Folic Acid 1 mg 02/24/25 09:00 02/26/25 08:51 Folic Acid 1 Mg Tab PO 03/26/25 08:59 1 mg QAM DESIREE Administration Octreotide Acetate 500 mcg/ 100.5 mls @ 10.05 mls/hr 02/25/25 10:00 02/26/25 15:10 Sodium Chloride IV 03/27/25 09:59 50 mcg/hr .Q10H DESIREE 10.1 mls/hr Administration 50 MCG/HR Insulin Aspart 0 units 02/26/25 12:00 02/26/25 12:34 Insulin Aspart Per Unit Charge SC 02/26/25 20:59 Not Given Q6 DESIREE Insulin Human NPH 10 units 02/25/25 07:30 02/25/25 10:45 Insulin Human Nph SC 03/26/25 08:29 10 units QDB DESIREE Administration Insulin Human NPH 0 units 02/24/25 16:30 02/25/25 18:23 Insulin Human Nph SC 03/26/25 16:29 Not Given QDD [facility] Protocol Lactulose 20 gm 02/23/25 21:00 02/26/25 08:56 Lactulose Syrup 20 Gm/30 Ml Udc PO 03/25/25 20:59 20 gm BID DESIREE Administration Oxycodone HCl 5 mg 02/23/25 22:30 02/26/25 10:02 Oxycodone Hcl Ir 5 Mg Tab (Immediate Release) PO 03/09/25 22:29 5 mg QID PRN Administration Pain Pantoprazole Sodium 40 mg 02/23/25 22:30 02/26/25 08:52 Pantoprazole 40 Mg Tab PO 03/25/25 22:29 40 mg BID DESIREE Administration Rifaximin 550 mg 02/24/25 10:15 02/26/25 08:52 Rifaximin 550 Mg Tablet PO 03/26/25 10:14 550 mg BID DESIREE Administration Thiamine HCl 100 mg 02/24/25 09:00 02/26/25 08:52 Thiamine Hcl 100 Mg Tab PO 03/26/25 08:59 100 mg QAM DESIREE Administration NPO Date Last Intake of Fluids: 02/26/25 Time Last Intake of Fluids: 09:00 Date Last Intake of Solids: 02/25/25 Time Last Intake of Solids: 09:00 Past Medical History Medical History Encounter for pre-operative examination CHF (congestive heart failure) Anemia Osteoporosis GERD (gastroesophageal reflux disease) Hyperparathyroidism Hypertension Poor historian Abnormal EKG pt unaware Acute respiratory failure CVA (cerebral vascular accident) Jan 2022 per pt > has some right hand weakness > does not follow with neuro Weakness of right upper extremity s/p CVA, just on occasion Acute heart failure with preserved ejection fraction (HFpEF) pt unaware Acute respiratory failure with hypoxia pt unaware Exercise / Class Metabolic Activity III < 4 Walking/Shop/Light housework Past Family History Family History Mother , age 70 of a stroke and congestive heart failure Stroke CHF (congestive heart failure) Father , in his 70s of an SD Myocardial infarction Past Surgical History Surgical History History of colonoscopy History of endovascular stent graft for abdominal aortic aneurysm unsure if this is exactly what she has, but had done in Apr 2022 at [place] she thinks it was for AAA S/P tonsillectomy S/P hysterectomy S/P appendectomy History of heart artery stent placed 1994 S/P cholecystectomy History of cataract surgery bilat Past Anesthesia History No Hx of Anesthesia Complications and No Family Hx of Anesthesia Complications History of PONV No Hx of PONV and No Hx of Motion Sickness Social History Smoking Status: Former smoker Do You Dip or Chew Tobacco: No Hx Alcohol Use: Yes Alcohol type: beer alcohol intake frequency: a few times a month Hx Substance Use: No substance use type: does not use Review of Systems ROS Unobtainable: All systems reviewed & are unremarkable except as noted in HPI & below Physical Exam Vital Signs Last Vital Signs Temp 36.9 C 02/26/25 15:24 Pulse 75 02/26/25 15:24 Resp 16 02/26/25 15:24 BP 139/70 02/26/25 15:24 Pulse Ox 99 02/26/25 15:24 O2 Del Method Room Air 02/26/25 15:24 O2 Flow Rate 2 02/23/25 22:01 Testing Laboratory Results 02/26/25 06:45 02/26/25 06:45 PT 13.9 Seconds (9.0-12.0) H 02/23/25 15:59 INR 1.3 (0.9-1.1) H 02/23/25 15:59 APTT 26 Seconds (21-31) 02/23/25 15:59 Hemoglobin A1c 6.7 % (4.5-5.6) H 02/23/25 16:05 Urine Color Yellow 02/25/25 00:40 Urine Appearance Clear (Clear) 02/25/25 00:40 Urine pH 6.5 (4.5-7.5) 02/25/25 00:40 Ur Specific [place] 1.009 (1.000-1.030) 02/25/25 00:40 Urine Protein Negative (Negative) 02/25/25 00:40 Urine Glucose (UA) Negative (Negative) 02/25/25 00:40 Urine Ketones Negative (Negative) 02/25/25 00:40 Urine Nitrite Negative (Negative) 02/25/25 00:40 Ur Leukocyte Esterase 2+ (Negative) H 02/25/25 00:40 Urine WBC (Auto) 21-50 /hpf (0-5) H 02/25/25 00:40 Urine RBC (Auto) 0-2 /hpf (0-2) 02/25/25 00:40 U Hyaline Cast (Auto) 0-2 /lpf (0-2) 02/25/25 00:40 U Epithel Cells (Auto) 0-2 /hpf (0-2) 02/25/25 00:40 Urine Bacteria (Auto) None Seen (None Seen) 02/25/25 00:40 02/25/25 00:40 Urine Culture - Preliminary Urine,Clean Catch No growth - Less than 1,000 colonies/mL, Final report to follow. 10/15/25 10/15/25 12:33 07:19 POC Glucose 127 H 118 H Electrocardiogram Date: 02/23/25 Sinus rhythm with occasional Premature ventricular complexes Anteroseptal infarct (cited on or before 01-Jun-2023) Nonspecific T wave abnormality Prolonged QT Abnormal ECG When compared with ECG of 21-Feb-2025 08:44, Premature ventricular complexes are now Present Inverted T waves have replaced nonspecific T wave abnormality in Inferior leads Nonspecific T wave abnormality now evident in Anterior leads Echocardiogram Date: 04/27/22 EF: 70 LV Function: normal Valvular Disease: + MS (mild)
--- NOTE | 2025-02-26 16:05 | Communication Note ---
Date of Service: February 26, 2025 EGD Single grade 2 varices. No stigmata. Patient has gastric varices without stigmata of bleeding. There were few AVMs of the stomach which were nonbl eeding. Patient had retained food in her stomach. She also developed some decrease in her O2 sats requiring bagging. At felt the risk for endoscopic intervention at this time with the food and frail status including banding and/or treating these gastric AVMs significant prolonging the procedure not in her best interest at this time Recommend we start Coreg seems to have plenty of blood pressure at 139 and 70 today. Follow status. If evidence of bleeding I would rescope with endotracheal intubation
[2025-02-26] MEDS ORDERED: INSULIN ASPART PER UNIT CHARGE SC SCH ×2 (16:30→21:00)
--- NOTE | 2025-02-26 16:48 | Anesthesiology Progress Note ---
Date of Service February 26, 2025 Anesthesia Post Procedure Vital Signs Vital Signs: Temp Pulse Pulse Resp BP Pulse Ox O2 Del Method 02/26/25 16:23 77 16 108/58 L 98 Room Air 02/26/25 16:08 70 16 112/60 94 Room Air 02/26/25 15:24 36.9 C 75 16 139/70 99 Room Air 02/26/25 12:43 67 02/26/25 11:43 36.6 C 68 18 129/55 L 97 Room Air 02/26/25 07:22 36.7 C 70 18 125/54 L 95 Room Air 02/26/25 05:58 71 02/26/25 03:16 36.9 C 71 16 114/55 L 95 Room Air 02/25/25 22:01 37 C 82 16 133/65 96 Room Air 02/25/25 21:42 73 02/25/25 20:46 Room Air 02/25/25 19:34 37.3 C 76 18 123/54 L 93 Room Air Pain Intensity Left Shoulder: Pain Intensity: 7 Transfer of Care Handoff Completed per policy Notes Mental Status: alert / awake / arousable Patient Amnestic to Procedure: Yes Nausea / Vomiting: adequately controlled Pain: adequately controlled Airway Patency, RR, SpO2: stable & adequate BP & HR: stable & adequate Hydration State: stable & adequate Anesthetic Complications: no major complications apparent and Pt Satisfied with anesthetic care
--- NOTE | 2025-02-26 17:03 | GI REPORT ---
[facility] Patient: FARHAN BEAR : 1940 Sex at : Female Age: 84 Years Procedure: Upper GI endoscopy Date: 02/26/2025 Attending Physician: John Prince MD Referring MD: Referred Self; John Prince MD Indications: - Suspected upper gastrointestinal bleeding - Cirrhosis with UGI bleeding rule out esophageal varices Medications: - Monitored Anesthesia Care Complications: - No immediate complications. Estimated Blood Loss: - Estimated blood loss: None. Procedure: - The egd scope was introduced through the mouth and advanced to the second part of the duodenum. - The upper GI endoscopy was performed with difficulty due to the patient's oxygen desaturation and presence of food. Successful completion of the procedure was aided by Anesthesia staff assisting with sedation. - The patient tolerated the procedure. Findings: - Two columns of grade II varices with no stigmata of recent bleeding were found in the lower third of the esophagus. They were small in size. No red amalia signs were present. Scarring from prior treatment was visible. Gastric varices present in the fundus no stigmata of bleed - Moderate portal hypertensive gastropathy was found in the gastric body. - Two small angiodysplastic lesions with no bleeding were found in the gastric body. - A small amount of food (residue) was found in the gastric body and in the gastric antrum. - The examined duodenum was normal. Impression: - Grade II esophageal varices with no stigmata of recent bleeding. Gastric varices fundus - Portal hypertensive gastropathy. - Two non-bleeding angiodysplastic lesions in the stomach. - A small amount of food (residue) in the stomach. - Normal examined duodenum. - No specimens collected. - Potential bleeding sites including grade 2 varices, gastric varices gastric AVMs and portal gastropathy. No endoscopic intervention today undertaken in this patient with instability low oxygen saturations food in her stomach and the need to do with her on her back because of a fractured left humerus. Recommend observe if there is evidence of further bleeding and she requires further endoscopic evaluation recommend be done in the OR with endoscopic intubation Recommendation: - Observation at this time. Continue Coreg. Transfuse if hemoglobin less than 7. Procedure Code(s): - 35602, Esophagogastroduodenoscopy, flexible, transoral; diagnostic, including collection of specimen(s) by brushing or washing, when performed (separate procedure) Diagnosis Code(s): - K74.60, Unspecified cirrhosis of liver - K92.2, Gastrointestinal hemorrhage, unspecified - K76.6, Portal hypertension - K31.89, Other diseases of stomach and duodenum - K31.819, Angiodysplasia of stomach and duodenum without bleeding - I85.10, Secondary esophageal varices without bleeding CPT(R) - 2023 copyright [employer]. All Rights Reserved. The CPT codes, CCI edits and ICD codes generated are intended as suggestions and were generated based on input data. These codes are preliminary and upon machine welder review may be revised to meet current compliance and payer requirements. The provider is responsible for the final determination of appropriate codes, and modifiers. John Prince MD This document has been electronically signed. Note Initiated:02/26/2025 Note Completed:02/26/2025 5:03 PM \\[email or web address]\[email or web address]\Data\Provation\Results\LIVE\[id number]
[2025-02-26] MEDS: LIDOCAINE 2% 2 ML VIAL/AMP(20MG/ML) INFIL ONE (17:44)
[2025-02-26] MEDS: PROPOFOL IV EMULSION 10 MG/ML 20 ML VIAL IV ONE (17:44)
[2025-02-27 06:52] LABS: Hematocrit (blood only) 23.5 % (37.0-47.0); Hemoglobin 8.3 g/dl (12.0-16.0); Mean Corpuscular Hemoglobin 32.5 pg (25.0-34.0); Mean Corpuscular Volume 92.2 fL (80.0-100.0); Platelet Count 66 K/uL (130-400); RDW Standard Deviation 53.1 fL (36.4-46.3); Red Blood Count 2.55 M/uL (4.20-5.40); White Blood Count 4.33 K/ul (4.8-10.8)
[2025-02-27 07:10] LABS: Anion Gap 8.0 (3-11); Blood Urea Nitrogen 37.0 mg/dl (6-23); Calcium 7.1 mg/dl (8.6-10.3); Carbon Dioxide 22.0 mmol/L (21-32); Chloride 106.0 mmol/L (98-107); Creatinine Clr Calc Pharmacy 19.1 ml/min; Glucose 142.0 mg/dl (70-99(Fasting)); Magnesium 1.5 mg/dl (1.7-2.4); Potassium 3.7 mmol/L (3.5-5.1); Sodium 136.0 mmol/L (136-145)
[2025-02-27] MEDS: INSULIN ASPART PER UNIT CHARGE SC SCH (09:42)
--- NOTE | 2025-02-27 09:49 | Gastroenterology Progress Note ---
Date of Service February 27, 2025 Assessment & Plan (1) Hepatic cirrhosis: Plan: 84 year old male with history decompensated alcoholic cirrhosis MELD 20 following with [facility] GI w/ varices (large esophageal/gastric),T2DM, diabetic peripheral angiopathy, hyperlipidemia, hyperparathyroidism, lung nodules, heart failure with preserved ejection fraction, aortic ectasia, superior mesenteric artery stenosis s/p stent in [place] 2022 [place] [facility] [place], superior mesenteric artery stenosis, hypertension, history of CVA, history of CAD, GERD, osteoporosis, visual field loss poststroke who presents for fall, left humeral fracture. GI asked to evaluate for anemia, downtrending HGB w/ report of black stools prior to arrival. No further report of bowel movements, EGD in 2023 w/ evidence of eso and gastric varices. S/P EGD w/o evidence of active GI bleeding, non-bleeding esophageal varices, gastric varices, portal HTN gastropathy. - Continue supportive measures - Advance diet as tolerated - September D/C IV PPI - September D/C IV octreotide - Trend H&H - Monitor and document GI output - Transfuse PRN per primary team - Follow up with [facility] GI/Hepatology after discharge - Recall GI as needed I spent a total of 40 minutes on the date of service in review of patient's record, and previously obtained information in person and appropriate medical visit, discussion and education of plan, with patient and/or caregiver, placing orders for tests/referral/procedures as medically necessary and documentation of pertinent clinical information in patient's medical records for their visit today. Admission and Anticipated Discharge Date Admission Date: February 23, 2025 Supervising Physician Co-Signing Physician Notes Patient examined at the bedside no clinical bleeding. No plan for repeat endoscopy at this time. If requires repeat endoscopy for intervention of esophageal varices potential gastric AVMs. Recommend she be done with general anesthesia. Subjective Feeling well s/p EGD. Tolerating breakfast. No abd pain, nausea/vomiting. No fever, chills, CP, SOB. HGB 8.3 EGD 2024: Grade II esophageal varices with no stigmata of recent bleeding. Gastric varices fundus - Portal hypertensive gastropathy. - Two non-bleeding angiodysplastic lesions in the stomach. - A small amount of food (residue) in the stomach. - Normal examined duodenum. - No specimens collected. - Potential bleeding sites including grade 2 varices, gastric varices gastric AVMs and portal gastropathy. No endoscopic intervention today undertaken in this patient with instability low oxygen saturations food in her stomach and the need to do with her on her back because of a fractured left humerus. Recommend observe if there is evidence of further bleeding and she requires further endoscopic evaluation recommend be done in the OR with endoscopic intubation Review of Systems Review of Systems: All other findings negative except as noted in HPI. Physical Exam Constitutional: WD/WN, vitals as above Respiratory: normal respiratory effort, lungs clear to auscultation Cardiovascular: RRR, no murmur, no edema Gastrointestinal (Abdomen): normal bowel sounds, soft, nontender, no hepatosplenomegaly Skin: no rashes, warm and dry Results & Data Results & Data Vital Signs (Past 12 Hours) Vital Signs Temp Pulse Pulse Resp BP Pulse Ox O2 Del Method 02/27/25 08:25 98.2 F 69 20 134/64 96 Room Air 02/27/25 05:48 73 02/27/25 04:10 112/76 02/27/25 02:16 98.2 F 72 18 118/55 L 98 Room Air 02/26/25 22:58 Room Air 02/26/25 21:58 73 02/26/25 21:58 97.9 F 74 16 116/51 L 92 Room Air Laboratory Results 02/27/25 02/27/25 02/26/25 Range/Units 07:55 06:02 20:15 WBC 4.33 L (4.8-10.8) K/ul RBC 2.55 L (4.20-5.40) M/uL Hgb 8.3 L (12.0-16.0) g/dl Hct 23.5 L (37.0-47.0) % MCV 92.2 (80.0-100.0) fL MCH 32.5 (25.0-34.0) pg MCHC 35.3 (32.0-36.0) g/dL RDW Std Deviation 53.1 H (36.4-46.3) fL RDW Coeff of Vanita 15.9 H (11.5-14.5) % Plt Count 66 L (130-400) K/uL MPV 12.0 (9.4-12.4) fL Sodium 136 (136-145) mmol/L Potassium 3.7 (3.5-5.1) mmol/L Chloride 106 (98-107) mmol/L Carbon Dioxide 22 (21-32) mmol/L Anion Gap 8 (3-11) BUN 37 H (6-23) mg/dl Creatinine 1.81 H (0.6-1.2) mg/dl Est Cr Clr Drug Dosing 19.1 ml/min eGFR 27.26 BUN/Creatinine Ratio 20.4 H (10-20) Glucose 142 H (70-99(Fasting)) mg/dl POC Glucose 153 H 227 H (70-99) mg/dl Calcium 7.1 L (8.6-10.3) mg/dl Phosphorus 3.0 (2.5-4.9) mg/dl Magnesium 1.5 L (1.7-2.4) mg/dl Hep Bs Antigen (Negative) Hepatitis C Antibody (Negative) 02/26/25 02/26/25 02/26/25 Range/Units 17:30 12:33 08:16 WBC (4.8-10.8) K/ul RBC (4.20-5.40) M/uL Hgb (12.0-16.0) g/dl Hct (37.0-47.0) % MCV (80.0-100.0) fL MCH (25.0-34.0) pg MCHC (32.0-36.0) g/dL RDW Std Deviation (36.4-46.3) fL RDW Coeff of Vanita (11.5-14.5) % Plt Count (130-400) K/uL MPV (9.4-12.4) fL Sodium (136-145) mmol/L Potassium (3.5-5.1) mmol/L Chloride (98-107) mmol/L Carbon Dioxide (21-32) mmol/L Anion Gap (3-11) BUN (6-23) mg/dl Creatinine (0.6-1.2) mg/dl Est Cr Clr Drug Dosing ml/min eGFR BUN/Creatinine Ratio (10-20) Glucose (70-99(Fasting)) mg/dl POC Glucose 150 H 127 H (70-99) mg/dl Calcium (8.6-10.3) mg/dl Phosphorus (2.5-4.9) mg/dl Magnesium (1.7-2.4) mg/dl Hep Bs Antigen Negative (Negative) Hepatitis C Antibody Negative (Negative) PG Care Time/CCT Total # of Minutes Spent Total Time Spent with Patient: Total time spent is greater than 50% in coordination of care (as documented) at patient's floor/unit and/or counseling patient: Coding Level of Care Code 08482 SUB INP/OBS CARE 2/35MIN Diagnoses Hepatic cirrhosis K74.60
--- NOTE | 2025-02-27 13:30 | Hospitalist Progress Note ---
Date of Service February 27, 2025 Assessment & Plan (1) Elevated troponin: (2) Recurrent falls: (3) Fracture, humerus: (4) COPD with emphysema: (5) Pulmonary mass: (6) Esophageal varices: (7) HTN (hypertension): (8) Hyperparathyroidism: Plan 84 yo female with pmhx of decompensated alcoholic cirrhosis c/b varices (large esophageal/gastric), DM II, diabetic peripheral angiopathy, hyperlipidemia, hyperparathyroidism, lung nodules, heart failure with preserved ejection fra ction, aortic ectasia, superior mesenteric artery stenosis s/p stent in Apr 2022 at [facility] [place] and revascularized in Apr 2023, hypertension, CVA, CAD, GERD, pericolonic abscess, hepatic cirrhosis, osteoporosis, visual field loss poststroke who presents for fall and left shoulder pain 2/2 failure to thrive at home, left humerus fracture. Fall Left humeral fracture Patient presented to the hospital with recurrent falls; x-ray shows acute mildly displaced impacted left proximal humerus fracture Evaluated by orthopedics; recommend nonoperative management and nonweightbearing . PT OT Recommend rehab; Continue pain control with Tylenol and oxycodone Avoid NSAIDs Decompensated liver cirrhosis Hepatic encephalopathy Possible Upper GI bleed Patient was admitted on 02/21 to 02/23 for concern of upper GI bleed. She left the hospital AGAINST MEDICAL ADVICE before workup was completed. Denies any hematemesis at this time Hemoglobin down trended from 12.7 on 02/21 to 8.4 on 02/25. 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 DC octeotride, c/w po ppi Continue on lactulose and rifaximin Continue to monitor CBC daily, monitor for hematemesis/hematochezia Hb 8.3, monitor. Discontinue losartan indefinitely given the appearance of cirrhosis Discontinue metformin given progressive CKD. f/u [facility] /Hepatology on DC. Suicidal ideationpatient reported suicidal ideation to RN on 02/24; was on one-to-one precautions. Patient reported that she said that due to frustration of the situation; has no intention of harming herself. Behavioral health liaison has been consulted; appreciate recommendation Possible left-sided facial droop- patient had a visitor 02/25; reported that patient had slurred speech and possible left-sided facial droop. No focal neurological symptoms were appreciated on exam. Neg CT head without contrast. Patient has possible GI bleed;; will avoid aspirin. Continue on Lipitor. Demand ischemia-high sensitive troponin elevated on admission; down trended. Denies any chest pain. Monitor on telemetry CKD stage IVavoid nephrotoxic agent. DC losartan and metformin Lung mass-patient does not want any further workup; understand that there is a high likelihood of it being cancerous. Type 2 diabetes mellitusSSI; stop metformin given advancing CKD. Per Prior attending - Discussed with patient's daughter over the phone 02/25. She wants patient to go to rehab first before coming back home. We discussed possibility of of hospice care after rehab given patient's advancing age, advanced cirrhosis, lung mass and current clinical presentation; she is agreeable. DNR/DNI DVT prophylaxisSCDs Dispo: likely dc richard to snf if HnH remains stable and no new complaints. Please note the above document was generated using voice recognition software. It may contain grammatical, syntax or spelling errors. Any formal questions or concerns about the content, text or information contained within the body of this dictation should be directly addressed to the provider for clarification Admission and Anticipated Discharge Date Admission Date: February 23, 2025 Subjective Patient seen and examined at bedside. She is comfortable; not in distress. Pt reports no new complaints, no n, v, blood/black stool. Physical Exam Physical Exam: Gen: A&O 3 NAD, HEENT: NCAT, EOMI, not icteric. External ears normal. No rhinorrhea. Moist mucous membranes. Neck: Supple, full range of motion, no observable masses, No meningeal sign. Lungs: No Respiratory distress. CV: RRR, no edema. Abdomen: Soft, nondistended, No rebound tenderness. MSK: Deformity, swelling and overlying bruise on the left shoulder, LUE In sling. Neuro: Normal Gait, Grossly intact. Results & Data Results & Data Vital Signs (Past 12 Hours) Vital Signs Temp Pulse Pulse Resp BP Pulse Ox O2 Del Method 02/27/25 10:10 Room Air 02/27/25 08:25 36.8 C 69 20 134/64 96 Room Air 02/27/25 05:48 73 02/27/25 04:10 112/76 02/27/25 02:16 36.8 C 72 18 118/55 L 98 Room Air (3) Fracture, humerus Encounter type: initial encounter Fracture type: closed Humerus Location: surgical neck Laterality: left (6) Esophageal varices Esophageal varices type: unspecified type
[2025-02-27 13:38] LABS: Hepatitis A Antibody IgM NON-REACTIVE (NON-REACTIVE); Hepatitis B Core Antibody IgM NON-REACTIVE (NON-REACTIVE)
[2025-02-27] MEDS: MAGNESIUM SULFATE / D5W 1 GM/100 ML BAG IV SCH (15:31)
--- NOTE | 2025-02-27 18:57 | XRay Report ---
Exam: Chest one view portable. Reason for exam: Rule out pneumonia. Previous studies: 02/23/2025. FINDINGS: Cardiac size remains normal. Again the ill-defined 3.1 cm soft tissue density seen in the left lower lobe. This could indicate atypical pneumonia, atypical atelectasis or neoplasm/malignancy. This did represent a pleural-based of posterior mass on the CT study of 01/12/2025 felt to represent a neoplastic lesion and is essentially unchanged. Otherwise no new active infiltrate or edema to indicate pneumonia is seen. IMPRESSION: 1. 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 2. Otherwise stable appearance without acute pneumonia is seen at this time on portable chest radiograph. Electronically signed by Morro Thomas 02-27-2025 6:57 PM
[2025-02-27] MEDS: cefTRIAXone SODIUM 2,000 MG/50 ML BAG IV SCH (19:11)
[2025-02-27] MEDS: ACETAMINOPHEN 500 MG TAB PO PRN (22:20)
[2025-02-28 06:52] LABS: Hematocrit (blood only) 24.0 % (37.0-47.0); Hemoglobin 8.0 g/dl (12.0-16.0); Mean Corpuscular Hemoglobin 31.3 pg (25.0-34.0); Mean Corpuscular Volume 93.8 fL (80.0-100.0); Platelet Count 67 K/uL (130-400); RDW Standard Deviation 55.5 fL (36.4-46.3); Red Blood Count 2.56 M/uL (4.20-5.40); White Blood Count 5.08 K/ul (4.8-10.8)
[2025-02-28 07:47] VITALS: RESP 20
[2025-02-28 08:38] LABS: Appearance Urine Clear (Clear); Bacteria Urine Automated 2+ (None Seen); Cast Urine Automated 0-2 /lpf (0-2); Glucose Urine UA Negative (Negative); RBC Urine Automated 0-2 /hpf (0-2); WBC Urine Automated 21-50 /hpf (0-5)
[2025-02-28 11:36] VITALS: BP 129/66; TEMP 96.4; O2SAT 97
--- NOTE | 2025-02-28 12:16 | Discharge Summary ---
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 Has a long history of admissions, most recently left AMA after being admitted for confusion and possible hematemesis/variceal bleed. In the ED, found to have a humerous fracture and fall, mildly elevated CK, elevated HS troponin, tried to leave AMA but decided to stay, admitted to medicine for further workup. Patient seen and examined at bedside. Patient states she went home and fell trying to get into bed. Before getting into bed, was feeling lightheaded. States she likely lost consciousness during this episode. States she did hit head. States that she feels she can no longer take care of herself at home but that her does not want her to live elsewhere. States her left arm hurts a lot. Denies chest pain, SOB, headache, other concerns. Discussed code status with patient, patient does not want chest compressions or intubation, DNRDNI in chart to reflect patient wishes. Admission Exam Per Admitting Provider Gen: A&O 3 NAD, sarcopenia noted HEENT: NCAT, EOMI, not icteric. External ears normal. No rhinorrhea. Moist mucous membranes. Neck: Supple, full range of motion, no observable masses, No meningeal sign. Lungs: No Respiratory distress. CV: RRR, no edema. Abdomen: Soft, nondistended, No rebound tenderness. MSK: tenderness and swelling on left shoulder Skin: diffuse mild bruising Neuro: Normal Gait, Grossly intact. Psych: appears mildly confused, slightly agitated Principal Diagnosis Fall Left humeral fracture Decompensated liver cirrhosis Hepatic encephalopathy Possible Upper GI bleed Complicated UTI Discharge Exam Gen: A&O 3 NAD, HEENT: NCAT, EOMI, not icteric. External ears normal. No rhinorrhea. Moist mucous membranes. Neck: Supple, full range of motion, no observable masses, No meningeal sign. Lungs: No Respiratory distress. CV: RRR, no edema. Abdomen: Soft, nondistended, No rebound tenderness. MSK: Deformity, swelling and overlying bruise on the left shoulder, LUE In sling. Neuro: Gait no assessed, Grossly intact. Discharge Data Allergies Allergy/AdvReac Type Severity Reaction Status Date / Time nickel Allergy "Cheap Verified 02/23/25 16:46 metal = rash" Consultations 02/23/25 17:02 Consult Orthopedic Surgery Routine 02/23/25 17:51 ED Decision to Admit Stat 02/25/25 07:16 Consult Behavioral Health Liaison Routine 02/25/25 08:10 Consult Gastroenterology Routine Procedures Performed Operation Date: 02/26/25 16:30 Actual Procedures p Esophagogastroduodenoscopy - John Prince MD Ordered Studies 02/23/25 14:58 CT cervical spine wo con Stat CT facial bones wo con Stat CT head/brain wo con Stat 02/23/25 16:44 CT abd pelvis wo con Stat 02/25/25 10:05 CT head/brain wo con Urgent Hospital Course (1) Elevated troponin: (2) Recurrent falls: (3) Fracture, humerus: (4) COPD with emphysema: (5) Pulmonary mass: (6) Esophageal varices: (7) HTN (hypertension): (8) Hyperparathyroidism: Plan 84 yo female with pmhx of 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 Fall Left humeral fracture Patient presented to the hospital with recurrent falls; x-ray shows acute mildly displaced impacted left proximal humerus fracture Evaluated by orthopedics; recommend nonoperative management and nonweightbearing. PT OT Recommend rehab; Continue pain control with Tylenol and tramadol on dc. Avoid NSAIDs Decompensated liver cirrhosis Hepatic encephalopathy Possible Upper GI bleed Patient was admitted on 02/21 to 10/12 for concern of upper GI bleed. She left the hospital AGAINST MEDICAL ADVICE before workup was completed. Denies any hematemesis at this time Hemoglobin down trended from 12.7 on 02/21 to 8.4 on 02/25. 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 C/w po ppi Continue on lactulose and rifaximin Continue to monitor CBC daily, monitor for hematemesis/hematochezia Hb 8.0, monitor closely as OP. Discontinue losartan indefinitely given the appearance of cirrhosis Discontinue metformin given progressive CKD. f/u [facility] /Hepatology on DC. Complicated UTI: pt complained of burning urine since yesterday, had low grade fever in the evening, rocephin started 02/27, plan for atb Rx x 5 days. Cultures are pending, pt was advised to f/u on these during PCP visit within a week time. Suicidal ideationpatient reported suicidal ideation to RN on 02/24; was on one-to-one precautions. Patient reported that she said that due to frustration of the situation; has no intention of harming herself. Behavioral health liaison has been consulted; appreciate recommendation Possible left-sided facial droop- patient had a visitor 02/25; reported that patient had slurred speech and possible left-sided facial droop. No focal neurological symptoms were appreciated on exam. Neg CT head without contrast. Patient has possible GI bleed;; will avoid aspirin. Continue on Lipitor. Demand ischemia-high sensitive troponin elevated on admission; down trended. Denies any chest pain. Monitor on telemetry CKD stage IVavoid nephrotoxic agent. DC losartan and metformin Lung mass-patient does not want any further workup; understand that there is a high likelihood of it being cancerous. Type 2 diabetes mellitusSSI; stop metformin given advancing CKD. Per Prior attending - Discussed with patient's daughter over the phone 02/25. She wants patient to go to rehab first before coming back home. We discussed possibility of of hospice care after rehab given patient's advancing age, advanced cirrhosis, lung mass and current clinical presentation; she is agreeable. GOC discussion was held with patient and her dtr Madelyn (over the phone). Explained them the finding of UTI and plan of care. Explained to them the pr ogressive nature of her lung cancer/mass, cirrhosis and progressive deconditioning/weakness. Answered all their questions. They understand she has poor prognosis and will continue to become weaker as days go by. They want her to be discharged to snf and if patient further deteriorates at SNF, they want to transition to hospice care from there. DNR/DNI DVT prophylaxisSCDs Dispo: to snf and possibly to hospice from there. Poor prognosis. Patient is being discharged to SNF with following instructions at the point of discharge: Follow-up with your primary care physician within a week time and likely you will need labs CBC/CMP/magnesium/phosphorus. You were evaluated for your left upper arm fracture, follow-up with orthopedics in 2 weeks time upon discharge. You are also evaluated for possible upper GI bleed, decompensated liver cirrhosis. Follow-up with GI and hepatology in 2 to 4 weeks time upon discharge. Coordinate with your PCP office to set up the referral. Complete antibiotic course for your urinary tract infection. Follow-up on final results of urine culture and blood culture during your PCP visit within a week time. Recommend that you establish with palliative care upon discharge, coordinate with your PCP office to set up the referral. Take your medications as prescribed. Please make sure that you are able to get your medications today by calling your pharmacy before you leave the hospital so that your treatment continuity is not broken. Please note the above document was generated using voice recognition software. It may contain grammatical, syntax or spelling errors. Any formal questions or concerns about the content, text or information contained within the body of this dictation should be directly addressed to the provider for clarification Home Health Attestation I certify that this patient is under my care and that I, or a physicians assistant clinical nurse manager working with me, had a face to-face encounter that meets the home health nsvr-or-nsuv encounter requirements with this patient. The encounter with the patient was in whole, or in part, for the following medical condition, which is the primary reason for home health care (list medical condition): I certify that, based on my findings, the following services are medically necessary home health services: My clinical findings support the need for the above services because: Further, I certify that my clinical findings support that this patient is home bound (i.e. absences from home require considerable and taxing effort and are for medical reasons or confucianist services or infrequently or of short duration when for other reasons) because: Certification for Home Health Services: Based on the above findings, I certify that this patient is confined to the home and needs intermittent custodial care, physical therapy and/or speech therapy or continues to need occupational therapy. The patient is under my care, and I have initiated the establishment of the plan of care. This patient will be followed by a physician who will periodically review the plan of care. Total Time Total Time Spent Total Time Spent (In Minutes): 45 Discharge Plan Discharge Items Patient Disposition: Transfer Halfway Fac Reason For Visit: FALL Discharge Diagnosis: Fall Left humeral fracture Decompensated liver cirrhosis Hepatic encephalopathy Possible Upper GI bleed Complicated UTI Condition on Discharge: Good Activity: Resume your previous activity Non-emergency contact: Primary Care Provider Call non-emergency contact if: you have any medication questions Follow-up/Referrals: Alexy Al MD [Primary Care Provider] - Tc Liu DO [Physician] - Diet: Carb Consistent or DM2 Addtl Attending Provider Instructions: Follow-up with your primary care physician within a week time and likely you will need labs CBC/CMP/magnesium/phosphorus. You were evaluated for your left upper arm fracture, follow-up with orthopedics in 2 weeks time upon discharge. You are also evaluated for possible upper GI bleed, decompensated liver cirrhosis. Follow-up with GI and hepatology in 2 to 4 weeks time upon discharge. Coordinate with your PCP office to set up the referral. Complete antibiotic course for your urinary tract infection. Follow-up on final results of urine culture and blood culture during your PCP visit within a week time. Recommend that you establish with palliative care upon discharge, coordinate with your PCP office to set up the referral. Take your medications as prescribed. Please make sure that you are able to get your medications today by calling your pharmacy before you leave the hospital so that your treatment continuity is not broken. Pending Studies at Discharge: Yes Stand-Alone Forms: My [facility] [employer] Skilled Items Patient informed of condition?: Yes DNR: Yes Discharge Level of Care: Skilled Communicable Disease: No Discharge Prognosis: Other Lines: None Urinary Catheter: No Medications and DC Order Prescriptions: New tramadol 50 mg tablet 50 mg PO BID PRN (Reason: pain) Qty: 11 0RF Xifaxan 550 mg Tablet 550 mg PO BID Qty: 60 0RF lactulose 10 gram/15 mL Solution 20 g PO BID Qty: 3000 0RF thiamine HCl (vitamin B1) 100 mg Tablet 100 mg PO QAM Qty: 30 0RF folic acid 1 mg Tablet 1 mg PO QAM Qty: 30 0RF cefdinir 300 mg capsule 300 mg PO DAILY 3 Days Qty: 3 0RF Rx Instructions: start from 10/18 AM for 3 days. One capsule daily x 3 days. Continued atorvastatin 40 mg tablet 40 mg PO .AFTERNOON torsemide 20 mg tablet 20 mg PO DAILY Hold Instructions: Resume on 07/13/23. Patient Comments: 01/12- not listed on the faxed med list. Last filled 12/25 90 day supply #180. Original: 40 mg po daily. Novolin 70/30 U-100 Insulin 100 unit/mL (70-30) suspension 0 unit SUBCUT QAM Hold Instructions: Resume on 07/13/23. Rx Instructions: 02/23/25 : 20 UNITS IN THE AM carvedilol 3.125 mg tablet 6.25 mg PO BID Patient Comments: 01/12- 3.125mg dose not listed on the faxed med list. Unable to verify. 11/12/24 6.25mg po bid was filled (100 day supply #200) but not on the faxed list either. vitamin B complex Capsule 1 cap PO DAILY Patient Comments: 02/21- otc unable to verify cinacalcet [Sensipar] 30 mg Tablet 30 mg PO DAILY melatonin 10 mg Tablet 10 mg PO HS Patient Comments: 02/21- otc unable to verify biotin 1 mg Capsule 1 mg PO DAILY Patient Comments: 02/21- otc unable to verify magnesium oxide 400 mg magnesium Capsule 400 mg PO BID Qty: 60 0RF Hold Instructions: Resume on 07/13/23. Patient Comments: 02/21- otc unable to verify omeprazole 40 mg capsule,delayed release(DR/EC) 40 mg PO BID oxycodone 5 mg Tablet 5 mg PO QID PRN (Reason: Pain) Discontinued metformin 1,000 mg tablet 500 mg PO BID Hold Instructions: Resume on 07/13/23. losartan 25 mg tablet 25 mg PO DAILY Hold Instructions: Resume on 07/13/23. Discharge Orders: Discharge Order (Routine); Ordered 02/28/25 Ordered By: Tanner Guadalupe/Other Patient Handouts: Managing Type 2 Diabetes Admission Data Admit Date/Time: 02/23/25 18:40 Attending Provider: Tanner Holbrook Admit Provider: Peter Humphreys Primary Care Provider: Alexy lA Other Providers: Tc Liu; Peter Humphreys; John Prince; [facility] [place]; Rajiv Muller,Rehab; [place]
[2025-02-28] MEDS: cefTRIAXone SODIUM 2,000 MG/50 ML BAG IV SCH (13:13)
[2025-02-28 13:27] VITALS: PULSE 70
== END 2025-02-28 14:47 | DRG 433 ==
LOC: ED 14:03 → SUATTDRO 18:40 → 2N 18:40